=== PATIENT | female | born 1935 | race Caucasian/White ===

== ENCOUNTER 2017-04-24 16:20 | Inpatient (IN) | payer OTHER ==
[2017-04-24 16:27] VITALS: BMI 48.4
--- NOTE | 2017-04-24 16:59 | PDOC ---
History of Present Illness - General Chief Complaint: Pain Stated Complaint: STOMACH PAIN SINCE FRIDAY Time Seen by Provider: 04/24/17 16:42 - History of Present Illness Initial Comments: 04/24/17 17:19 " Patient is a 82 year old female with a significant past medical history of multiple abdominal sx (appy, dominique, hysterectomy, LOAs), asthma, atrial fibrillation, COPD, CHF, CAD, dementia, diabetes, HTN, hypercholesterolemia, and hypothyroidism, who presents to the ED with abdominal pain and diarrhea since 04/19/17. Patient states that she was initially constipated on 04/18, which she believed was due to her oxycodone. She denies taking anything to alleviate constipation but states that on Friday she passed large volume stool followed by several watery stools. She complains of persistent watery diarrhea until today that is nonbloody. Patient states that her last normal bowel movement was 1 week ago. Patient reports nausea but denies any vomiting. Pt also complains of periumbilical abdominal pain. Pt states that the pain is similar to her previous episodes of SBO. She states that she followed up with Dr. Storey, her PMD, today that sent her to the ED. She denies fever or chills. She denies any SOB. 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 " Past History - Past Medical History Allergies/Adverse Reactions: Allergies Allergy/AdvReac Type Severity Reaction Status Date / Time No Known Allergies Allergy Verified 04/24/17 16:28 Home Medications: Ambulatory Orders Albuterol Sulfate Inhaler - [Ventolin HFA Inhaler -] 2 inh IH Q6H PRN #0 inh 04/27 Allopurinol [Zyloprim -] 100 mg PO DAILY #0 tablet 06/22/13 Diltiazem Cd [Cardizem Cd -] 180 mg PO DAILY #0 cap.cd.24h 06/22/13 Montelukast Na [Singulair -] 10 mg PO HS #0 tablet 06/22/13 Acetaminophen [Tylenol .Regular Strength -] 650 mg PO Q6H PRN #240 tablet Tiotropium [place] [Spiriva] 1 inh PO DAILY #1 inhaler 06/23/13 Furosemide [Lasix -] 40 mg PO BID 03/02/14 Levothyroxine [Synthroid -] 50 mcg PO DAILY 03/02/14 Glimepiride [Amaryl] 2 mg PO BID 08/07/14 Digoxin [Lanoxin -] 1 tab PO DAILY #90 tablet 09/08/15 Lactobacillus Acidophilus [Bacid -] 1 tab PO DAILY #30 tab 09/08/15 Oxycodone HCl [Roxicodone -] 5 mg PO Q12H PRN #0 tablet 09/08/15 Potassium Chloride [K-Dur] 20 meq PO QID #0 09/08/15 Sulfamethoxazole/Trimethoprim [Bactrim DS -] 1 each PO BID #20 tablet 09/08/15 Warfarin Na [Coumadin -] 4 mg PO DAILY@1800 tablet 02/20/16 Anemia: No Asthma: Yes Cancer: No Cardiac Disorders: Yes (ATRIAL FIBRILLATION) CVA: No COPD: Yes CHF: Yes Dementia: Yes Diabetes: Yes GI Disorders: Yes (HIATAL HERNIA, OBSTRUCTION) Disorders: Yes (uti) HTN: Yes Hypercholesterolemia: Yes Liver Disease: No Suicide Attempt (Hx): No Seizures: No Thyroid Disease: Yes (HYPO) - Surgical History Abdominal Surgery: Yes (HERNIA REPAIR X 3) Appendectomy: Yes (RUPTURED) Cardiac Surgery: Yes (cardioversion x 2) Cholecystectomy: Yes Lung Surgery: No Neurologic Surgery: No Orthopedic Surgery: No - Immunization History Immunization Up to Date: Yes - Psycho/Social/Smoking Cessation Hx Anxiety: No Suicidal Ideation: No Smoking Status: No Smoking History: Former smoker Have you smoked in the past 12 months: No Number of Cigarettes Smoked Daily: 0 If you are a former smoker, when did you quit?: 2007 Cigars Per Day: 20 Information on smoking cessation initiated: No Hx Alcohol Use: No Drug/Substance Use Hx: No Substance Use Type: None Hx Substance Use Treatment: No Review of Systems - Review of Systems Comments:: 04/24/17 17:23 " GENERAL/CONSTITUTIONAL: No fever or chills. No weakness. HEAD, EYES, EARS, NOSE AND THROAT: No change in vision. No ear pain or discharge. No sore throat. GASTROINTESTINAL: (+)nausea, abdominal pain, diarrhea. No vomiting, or constipation. GENITOURINARY: No dysuria, frequency, or change in urination. CARDIOVASCULAR: No chest pain or shortness of breath. RESPIRATORY: No cough, wheezing, or hemoptysis. MUSCULOSKELETAL: No joint or muscle swelling or pain. No neck or back pain. SKIN: No rash NEUROLOGIC: No headache, vertigo, loss of consciousness, or change in strength/ sensation. ENDOCRINE: No increased thirst. No abnormal weight change. HEMATOLOGIC/LYMPHATIC: No anemia, easy bleeding, or history of blood clots. ALLERGIC/IMMUNOLOGIC: No hives or skin allergy. " *Physical Exam - Vital Signs Last Vital Signs Temp Pulse Resp BP Pulse Ox 98.2 F 87 18 137/54 93 L 04/24/17 16:24 04/24/17 16:24 04/24/17 16:24 04/24/17 16:24 04/24/17 16:24 - Physical Exam Comments: 04/24/17 17:23 "GENERAL: Awake, alert, and fully oriented, in no acute distress HEAD: No signs of trauma EYES: PERRLA, EOMI, sclera anicteric, conjunctiva clear ENT: Auricles normal inspection, hearing grossly normal, nares patent, oropharynx clear without exudates. Moist mucosa NECK: Normal ROM, supple, no lymphadenopathy, JVD, or masses LUNGS: Breath sounds equal, clear to auscultation bilaterally. No wheezes, and no crackles HEART: Regular rate and rhythm, normal S1 and S2, no murmurs, rubs or gallops ABDOMEN: Soft, obese, mild periumbilical tenderness, normoactive bowel sounds. No guarding, no rebound. No masses. Skin under pannus erythematous and edematous, no fluctuance or drainage noted. EXTREMITIES: Normal range of motion, no edema. No clubbing or cyanosis. No cords, erythema, or tenderness NEUROLOGICAL: Cranial nerves II through XII grossly intact. Normal speech, normal gait SKIN: Warm, Dry, normal turgor, no rashes or lesions noted. " 04/24/17 22:03 ED Treatment Course - LABORATORY CBC & Chemistry Diagram: 04/24/17 18:06 04/24/17 18:06 Medical Decision Making - Medical Decision Making 04/24/17 17:25 82 F with abdominal pain, diarrhea. Pt with significant surgical history, including appy, dominique, hysterectomy, and SBOs s/p LOAs. Will obtain CTAP to r/o acute intraabdominal process. Pt with no chest pain or shortness of breath currently, but will obtain EKG and troponin to r/o anginal equivalent. Pt otherwise well appearing, non-septic. No fevers or chills with normal vitals here. Low suspicion for systemic infectious process. Pt also with redness and swelling around skin of pannus, concerning for cellulitis. - Labs, trop - EKG - CXR - CTAP 04/24/17 22:02 CTAP negative for acute intraabdominal pathology - no evidence of SBO or colitis. Stool cultures ordered. Will start abx for cellulitis. *DC/Admit/Observation/Transfer Diagnosis at time of Disposition: Diarrhea, Cellulitis - Discharge Dispostion Condition at time of disposition: Stable Admit: Yes - Attestations Physician Attestion: 04/24/17 22:04 I, Dr. Leighton De Los Santos MD, attest that this document has been prepared under my direction and personally reviewed by me in its entirety. I further attest, that it accurately reflects all work, treatment, procedures and medical decision -making performed by me.
[2017-04-24 18:27] LABS: BASOPHIL 0.8 % (0-2.0); EOSINOPHIL 3.5 % (0-4.5); MCH 26.6 pg (25.7-33.7); MCHC 32.2 g/dl (32.0-36.0); MEAN CELL VOLUME 82.6 fl (80-96); NEUTROPHILS 68.5 % (42.8-82.8); PLATELET COUNT 293 K/MM3 (134-434); RDW 18.9 % (11.6-15.6); WHITE BLOOD COUNT 9.4 K/mm3 (4.0-10.0)
[2017-04-24 18:32] LABS: VENOUS BLOOD GAS HCO3 33.9 meq/L (19-25)
[2017-04-24 18:33] LABS: VENOUS PH 7.43 (7.32-7.42)
[2017-04-24 18:43] LABS: ACTIVATED PTT 35.1 SECONDS (26.9-34.4)
[2017-04-24 18:53] LABS: ALBUMIN 3.2 g/dl (3.4-5.0); ANION GAP 8 (8-16); BILIRUBIN,TOTAL 0.7 mg/dL (0.2-1.0); CALCIUM 8.8 mg/dL (8.5-10.1); CO2 33 mmol/L (21-32); CREATININE 0.8 mg/dL (0.55-1.02); GLUCOSE,RANDOM 83 mg/dL (74-106); SGOT/AST 26 U/L (15-37); SGPT/ALT 14 U/L (12-78)
[2017-04-24 18:54] LABS: ALK PHOS 102 U/L (45-117); MAGNESIUM 1.9 mg/dL (1.8-2.4); TOT PROT 6.9 g/dl (6.4-8.2)
[2017-04-24 18:56] LABS: TROPONIN I 0.02 ng/ml (0.00-0.05)
[2017-04-24 19:11] LABS: INR 2.24 (0.82-1.09)
[2017-04-24] MEDS ORDERED: KCL 10 MEQ IVPB 100 ML IVPB SCH ×2 (19:30→23:00)
[2017-04-24] MEDS ORDERED: KCL 10 MEQ IVPB 100 ML IVPB ONE (20:47)
[2017-04-24] MEDS ORDERED: SODIUM CHLORIDE 1,000 ML IV STA (21:58)
[2017-04-24] MEDS ORDERED: VANCOMYCIN 1,500 MG in DEXTROSE 5%-WATER - 500 ML IVPB ONE (22:00)
[2017-04-24] MEDS ORDERED: POTASSIUM CHLORIDE TABS 20 MEQ TABLET.ER (FP) PO ONE ×2 (22:57→23:26)
--- NOTE | 2017-04-24 23:00 | HP ---
Admitting History and Physical - Admission History of Present Illness: 82yo F with significant history of permanent A fib, COPD, CHF, CAD, dementia, diabetes, HTN, hypothyroidism, and multiple abdominal surgeries (lap appy, cholecystectomy, hysterectomy, adhesion lysis) who is being seen in the ED for abdominal pain and diarrhea. She states her abdominal pain started around located centrally without radiation. She felt like it was similar to when she had an SBO in the past, however she did not have nausea or vomiting. Pt states that on 04/21/17 she started to develop diffuse watery diarrhea without any site of blood. She states that it has been continuous since then however she is trying to keep hydrated. Denies fever/chills, nausea, vomiting, dysuria, polyuria, PO intolerance. Denies any unusual foods eaten, recent travel, sick contacts. ER course notable for: 1) CBC,CMP, LA, UA - revealing hypokalemia at 2.9 and a lactic acidosis at 2.2 2) EKG - Atrial fibrillation and inversion of T waves in precordial leads UNCHANGED from previous 3) CT abdomen w/o contrast -- Superficial skin changes on pannus that may represent cellulitis; no intraabdominal pathology; correlate clinically 4) CXR - cardiomegaly no acute pathology 5) Stool Cx's 6) Vancomycin initiated 7) 10mEq KCl PCP: Dr. Storey Seen by Dr. 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 History Source: Patient Limitations to Obtaining History: No Limitations - Past Medical History Cardiovascular: Yes: AFIB, CHF, Deep Vein Thrombosis, HTN, Hyperlipdemia Pulmonary: Yes: Asthma, COPD Gastrointestinal: Yes: Hiatal Hernia, Other Musculoskeletal: Yes: Osteoarthritis Endocrine: Yes: Diabetes Mellitus, Hypothyroidism, Other Dermatology: Yes: Cellulitis, Eczema - Past Surgical History Past Surgical History: Yes: Appendectomy, Cholecystectomy, Hernia Repair (times three), Oopherectomy, Tonsillectomy - Smoking History Smoking history: Former smoker Have you smoked in the past 12 months: No Aproximately how many cigarettes per day: 0 If you are a former smoker, when did you quit?: 2007 - Alcohol/Substance Use Hx Alcohol Use: No - Social History ADL: Independent History of Recent Travel: No Home Medications - Allergies Allergies/Adverse Reactions: Allergies Allergy/AdvReac Type Severity Reaction Status Date / Time No Known Allergies Allergy Verified 04/24/17 16:28 - Home Medications Home Medications: Ambulatory Orders Albuterol Sulfate Inhaler - [Ventolin HFA Inhaler -] 2 inh IH Q6H PRN #0 inh 04/27 Allopurinol [Zyloprim -] 100 mg PO DAILY #0 tablet 06/22/13 Diltiazem Cd [Cardizem Cd -] 180 mg PO DAILY #0 cap.cd.24h 06/22/13 Montelukast Na [Singulair -] 10 mg PO HS #0 tablet 06/22/13 Acetaminophen [Tylenol .Regular Strength -] 650 mg PO Q6H PRN #240 tablet Tiotropium [place] [Spiriva] 1 inh PO DAILY #1 inhaler 06/23/13 Furosemide [Lasix -] 40 mg PO BID 03/02/14 Levothyroxine [Synthroid -] 50 mcg PO DAILY 03/02/14 Glimepiride [Amaryl] 2 mg PO BID 08/07/14 Digoxin [Lanoxin -] 1 tab PO DAILY #90 tablet 09/08/15 Lactobacillus Acidophilus [Bacid -] 1 tab PO DAILY #30 tab 09/08/15 Oxycodone HCl [Roxicodone -] 5 mg PO Q12H PRN #0 tablet 09/08/15 Potassium Chloride [K-Dur] 20 meq PO QID #0 09/08/15 Sulfamethoxazole/Trimethoprim [Bactrim DS -] 1 each PO BID #20 tablet 09/08/15 Warfarin Na [Coumadin -] 4 mg PO DAILY@1800 tablet 02/20/16 Family Disease History - Family Disease History Family Disease History: Heart Disease: Mother ([place]), Other: Father (ETOH cirrhosis), Sister (alive and well) Physical Examination Vital Signs: Vital Signs Temperature 98.2 F 04/24/17 16:24 Pulse Rate 87 04/24/17 16:24 Respiratory Rate 18 04/24/17 16:24 Blood Pressure 137/54 04/24/17 16:24 O2 Sat by Pulse Oximetry (%) 93 L 04/24/17 16:24 Constitutional: Yes: No Distress, Calm Eyes: Yes: Conjunctiva Clear, EOM Intact, PERRL Cardiovascular: Yes: Pulse Irregular (Regular rate). No: Murmur Respiratory: Yes: Regular, CTA Bilaterally. No: SOB, Wheezes Gastrointestinal: Yes: Soft, Abdomen, Obese, Tenderness (centrally located), Other (Erythema, warmth, and skin changes including cracks on pannus) Edema: Yes (Non-pitting; b/l LE) Peripheral Pulses WNL: Yes Integumentary: Yes: Other (See abdomen; B/l Lower extremity venous stasis changes, cracks, and thickening of skin above ankles) Neurological: Yes: Alert, Oriented Psychiatric: Yes: Alert, Oriented Labs: CBC, BMP 04/24/17 18:06 04/24/17 18:06 Imaging - Results Chest X-ray: Report Reviewed, Image Reviewed Cat Scan: Report Reviewed Assessment/Plan 82yo F with multiple comorbid conditions not limited to permanent A. Fib on coumadin, diabetes, multiple abdominal surgeries (lap appy, lap dominique, hysterectomy, LOAs) with diarrhea, abdominal pain. CT scan + for cellulitis of pannus; no intra-abdominal pathology. SIR 0/4, LA 2.2 1) Cellulitis --Most likely cellulitis of pannus given skin changes, lactic acidosis, and CT results --Received Vancomycin in ED x1 dose; will switch to Unasyn IV and follow per ID --ID consultation --Nystatin powder TID --Most likely transition to PO tomorrow in preparation for discharge --Trend LA; will f/u 2) Abdominal pain --Most likely related to constipation from use opiates resulting in alternating constipation and diarrhea --Will continue home opiates and add bowel regiment --Colace BID PRN --Diarrhea seems to have resolved at this point --Cellulitis plan as above 3) Hypokalemia --K 2.9; most likely due to chronic Digoxin usage from cardiac history --10mEq IV given in the ED --repeat BMP and Mg level; will f/u --Will continue to replete potassium --Dig level ordered for assessment --F/U with cardiology for assessment of continued digoxin use FEN: Fluids: Gentle hydration Electrolyte abnormalities: Hypokalemia; plan as above Nutrition: Diabetic diet as tolerated PPX: DVT: Pt already anticoagulated on Coumadin; INR 2.25; SCDs b/l legs GI: Not indicated at this time Dispo: Pt placed into observation status; anticipate transition to PO medications tomorrow Visit type - Emergency Visit Emergency Visit: Yes ED Registration Date: 04/24/17 Care time: The patient presented to the Emergency Department on the above date and was hospitalized for further evaluation of their emergent condition. - New Patient This patient is new to me today: Yes Date on this admission: 04/25/17 - Critical Care Critical Care patient: No
[2017-04-24] MEDS ORDERED: ALBUTEROL SO4 6.7 GM HFA INHALER IH PRN (23:06)
[2017-04-24] MEDS ORDERED: DOCUSATE SODIUM 100 MG CAPSULE (FP) PO PRN (23:34)
--- NOTE | 2017-04-24 23:42 | PN ---
Teaching Attending Note Name of Resident: Bobby You ATTENDING PHYSICIAN STATEMENT I saw and evaluated the patient. I reviewed the resident's note and discussed the case with the resident. I agree with the resident's findings and plan as documented. SUBJECTIVE: 82 yo morbidly obese female presenting to ED with complaint of abdominal pain and watery, non-bloody diarrhea that developed after approximately 1 week of constipation. Denies fever, chills, chest pain, abdominal pain, palpitations, urinary complaints. OBJECTIVE: - Vitals Temp: 98.2F BP: 137/54 HR: 87 RR: 18 spO2: 93% on 2L NC - Physical Examination General: Morbidly Obese female in NAD HEENT: No oropharyngeal lesions noted Neck: Obese CV: Irregularly irregular, S1 and S2 Pulmonary: Distant per habitus but CTA anteriorly Abdomen: Obese, Mild juan-umbilical TTP, BS + Integument: Erythema/edema along anterior pannus Extremities: - Imaging CXR reviewed ( Cardiomegaly; No infiltrate/edema noted ) CT A/P reviewed ( No evidence of SBO; ? cellulitis anterior pannus; urinary bladder wall thickening - EKG Rate-controlled A-Fib - Labs BUN/Cr: 24/0.8 K+: 2.9 ; Mg++: 1.9 ; Ca++: 8.8 H/H: 13.2/40.9 Lactate: 2.2 LFT's and Lipase WNL Troponin: 0.02 INR: 2.24 A1c 02/2016: 8.0% ASSESSMENT AND PLAN - Neurologic 1.) Chronic Pain : Continue outpatient pain medications; add daily bowel regimen to aid constipation 2.) ? Dementia per chart review, unclear at this time - Cardiovascular 1.) Chronic Atrial Fibrillation : Continue Cardizem; Hold Dig pending level : Resume chronic AC Coumdin 2.) Essential HTN : Start Lisinopril - Pulmonary 1.) COPD ( Unable to confirm via chart review as no PFT's noted ) : Albuterol, Spiriva, Symbicort to be resumed : Supplemental O2 to maintain spO2 91-92% as patient appears to chronically retain CO2 2.) Presumed Obesity Hypoventilation at high-risk for KATERINA : Management as above; Pulmonology referral on discharge for further workup if deemed appropriate by primary attending - Gastrointestinal 1.) Abdominal Pain and Diarrhea - c/w Constipation per history : Bowel regimen as mentioned above as tolerated : F/U Pending ED w/u - Renal 1.) Pre-renal Azotemia : DC Lasix and continue gentle hydration overnight : Hold Allopurinol for now 2.) Hypokalemia : Replete w/ at least 120 mEq ; Monitor K and Mg levels - Endocrine 1.) DM-II : SSI regimen overnight; Transition to PO regimen when able to tolerate PO and discharge pending : F/U A1c 2.) Hypothyroidism : Resume outpatient synthroid : F/U TSH if not performed in past 3 months - Hematology/Oncology 1.) H/O DVT : Heparin SC - Infectious Disease 1.) Intertrigo/Cellulitis Anterior Pannus : Continue IV abx with Unasyn and transition to PO on date of discharge : Nystatin powder TID DISPOSITION Admit to telemetry for IV fluid hydration and correction of hypokalemia. Will start IV abx while inpatient with plan to transition to PO on discharge. Anticipate discharge in 24-48h. Patient will need f/u with Pulmonology/Sleep Clinic to evaluate sleep disordered breathing as she is certainly at increase risk. Update Vaccinations
[2017-04-25 00:45] LABS: ANION GAP 7 (8-16); CALCIUM 8.2 mg/dL (8.5-10.1); CO2 36 mmol/L (21-32); CREATININE 0.7 mg/dL (0.55-1.02); GLUCOSE,RANDOM 140 mg/dL (74-106)
[2017-04-25] MEDS ORDERED: POTASSIUM CHLORIDE TABS 20 MEQ TABLET.ER (FP) PO ONE (01:40)
[2017-04-25] MEDS ORDERED: oxyCODONE HCL 5 MG TABLET ONE (03:55)
[2017-04-25] MEDS: oxyCODONE HCL 5 MG TABLET PO PRN (04:05)
[2017-04-25] MEDS ORDERED: FUROSEMIDE 40 MG TABLET (FP) PO SCH (06:00)
[2017-04-25] MEDS: NYSTATIN POWDER 100,000 UNITS/GM - 15 GM TOPICAL POWDER TP SCH ×3 (06:13→22:45)
[2017-04-25] MEDS: LEVOTHYROXINE NA 50 MCG TABLET (FP) PO SCH (06:13)
[2017-04-25] MEDS: INSULIN SLIDING SCALE (NOVOLOG) 1 VIAL SQ SCH ×4 (06:13→22:45)
[2017-04-25] MEDS ORDERED: AMPICILLIN NA/SULBACTAM NA 1.5 GM in SODIUM CHLORIDE 100 ML IVPB SCH (08:00)
[2017-04-25] MEDS ORDERED: PT OWN MED DRAWER 7, Y5N ONE ×3 (08:43→22:34)
[2017-04-25 09:07] LABS: URINE APPEARANCE TURBID; URINE BILIRUBIN NEGATIVE (NEGATIVE); URINE BLOOD 1+ (NEGATIVE); URINE COLOR AMBER; URINE GLUCOSE (UA) NEGATIVE (NEGATIVE); URINE KETONE NEGATIVE (NEGATIVE); URINE NITRITE NEGATIVE (NEGATIVE)
--- NOTE | 2017-04-25 09:27 | EKG ---
Test Reason : Blood Pressure : / mmHG Vent. Rate : 071 BPM Atrial Rate : 061 BPM P-R Int : 000 ms QRS Dur : 144 ms QT Int : 420 ms P-R-T Axes : 000 083 000 degrees QTc Int : 456 ms ATRIAL FIBRILLATION RIGHT BUNDLE BRANCH BLOCK T WAVE ABNORMALITY, CONSIDER LATERAL ISCHEMIA ABNORMAL ECG WHEN COMPARED WITH ECG OF 14-FEB-2016 14:48, INVERTED T WAVES HAVE REPLACED NONSPECIFIC T WAVE ABNORMALITY IN ANTERIOR LEADS Confirmed by ISAAC WALSH MD ([id number]) on 04/25/2017 9:26:40 AM Referred By: Confirmed By:ISAAC WALSH MD
[2017-04-25 09:32] LABS: URINE LEUK ESTERASE 3+ (NEGATIVE); URINE PROTEIN 1+ (NEGATIVE)
--- NOTE | 2017-04-25 09:34 | CON.CARD ---
Consult Consult Specialty:: Cardiology Referred by:: Dr. Storey Reason for Consultation:: Cardiac evaluation - History of Present Illness Chief Complaint: Diarrhea History of Present Illness: Patient is an 82 year old female well known to me with underlying history of hypertension, COPD, bronchial asthma, acute on chronic LV failure, type 2 diabetes mellitus, coronary artery disease, DVT, chronic venous stasis and persistent atrial fibrillation who presents with abdominal pain and diarrhea since 04/19/17. She states that she was initially constipated when she took Oxycodon. She complains of persistent watery diarrhea and complains of nausea. She denies vomiting. She was recommended for admission by her PMD. Currently she denies chest pain or palpitations. She is breathing comfortable this am. Her abdomen is protuberant. She state that her symptom is similar to her episode of SBO. She denies fever or chills. She denies headache or lightheadedness. Cardiology consultation was called for further evaluation. - History Source History Provided By: Patient, Medical Record Limitations to Obtaining History: No Limitations - Past Medical History Cardio/Vascular: Yes: AFIB, CHF, Deep Vein Thrombosis, HTN, Hyperlipdemia Pulmonary: Yes: Asthma, COPD Gastrointestinal: Yes: Hiatal Hernia, Other Musculoskeletal: Yes: Osteoarthritis Endocrine: Yes: Diabetes Mellitus, Hypothyroidism Dermatology: Yes: Cellulitis, Eczema - Past Surgical History Past Surgical History: Yes: Appendectomy, Cholecystectomy, Hernia Repair (times three), Oopherectomy, Tonsillectomy - Alcohol/Substance Use Hx Alcohol Use: No - Smoking History Smoking history: Former smoker Have you smoked in the past 12 months: No Aproximately how many cigarettes per day: 0 If you are a former smoker, when did you quit?: 2007 - Social History Usual Living Arrangement: Alone ADL: Independent History of Recent Travel: No Home Medications - Allergies Allergies/Adverse Reactions: Allergies Allergy/AdvReac Type Severity Reaction Status Date / Time No Known Allergies Allergy Verified 04/24/17 16:28 - Home Medications Home Medications: Ambulatory Orders Albuterol Sulfate Inhaler - [Ventolin HFA Inhaler -] 2 inh IH Q6H PRN #0 inh 04/27 Allopurinol [Zyloprim -] 100 mg PO DAILY #0 tablet 06/22/13 Diltiazem Cd [Cardizem Cd -] 180 mg PO DAILY #0 cap.cd.24h 06/22/13 Montelukast Na [Singulair -] 10 mg PO HS #0 tablet 06/22/13 Acetaminophen [Tylenol .Regular Strength -] 650 mg PO Q6H PRN #240 tablet Tiotropium [place] [Spiriva] 1 inh PO DAILY #1 inhaler 06/23/13 Furosemide [Lasix -] 40 mg PO BID 03/02/14 Levothyroxine [Synthroid -] 50 mcg PO DAILY 03/02/14 Glimepiride [Amaryl] 2 mg PO BID 08/07/14 Digoxin [Lanoxin -] 1 tab PO DAILY #90 tablet 09/08/15 Lactobacillus Acidophilus [Bacid -] 1 tab PO DAILY #30 tab 09/08/15 Oxycodone HCl [Roxicodone -] 5 mg PO Q12H PRN #0 tablet 09/08/15 Potassium Chloride [K-Dur] 20 meq PO QID #0 09/08/15 Sulfamethoxazole/Trimethoprim [Bactrim DS -] 1 each PO BID #20 tablet 09/08/15 Warfarin Na [Coumadin -] 4 mg PO DAILY@1800 tablet 02/20/16 Family Disease History - Family Disease History Family Disease History: Heart Disease: Mother (PA), Other: Father (ETOH cirrhosis), Sister (alive and well) Review of Systems - Review of Systems Constitutional: denies: Chills, Fever Cardiovascular: reports: Shortness of Breath. denies: Chest Pain, Palpitations Respiratory: denies: Cough, Hemoptysis, Orthopnea, PND Gastrointestinal: reports: Abdominal Pain, Constipation, Diarrhea, Nausea. denies: Melena, Rectal Bleeding, Vomiting Musculoskeletal: reports: Joint Pain Neurological: denies: Dizziness, Headache, Seizure, Syncope, Weakness Vital Signs: Vital Signs Temperature 98.6 F 04/25/17 08:08 Pulse Rate 84 04/25/17 08:08 Respiratory Rate 20 04/25/17 08:08 Blood Pressure 120/66 04/25/17 08:08 O2 Sat by Pulse Oximetry (%) 98 04/25/17 04:45 Neck: Yes: Supple Respiratory: Yes: Diminished Gastrointestinal: Yes: Normal Bowel Sounds, Soft, Abdomen, Obese. No: Tenderness Cardiovascular: Yes: Pulse Irregular JVD: No Carotid Bruit: No PMI: Non-Displaced Heart Sounds: Yes: S1, S2 Edema: Yes Edema: LLE: 1+, RLE: 1+ Integumentary: Yes: Venous Stasis Changes - Other Data Labs, Other Data: INR, PTT INR 2.24 (0.82-1.09) H 04/24/17 18:06 Laboratory Results - last 24 hr 04/24/17 04/24/17 04/24/17 18:06 18:06 18:06 WBC 9.4 RBC 4.95 Hgb 13.2 Hct 40.9 MCV 82.6 MCH 26.6 MCHC 32.2 RDW 18.9 H D Plt Count 293 MPV 8.0 Neutrophils % 68.5 Lymphocytes % 17.6 Monocytes % 9.6 Eosinophils % 3.5 D Basophils % 0.8 D INR 2.24 H PTT (Actin FS) 35.1 H VBG pH POC VBG pCO2 POC VBG pO2 Mixed VBG HCO3 Sodium Potassium Chloride Carbon Dioxide Anion Gap BUN Creatinine Creat Clearance w eGFR POC Glucometer Random Glucose Lactic Acid Calcium Magnesium 1.9 Total Bilirubin AST ALT Alkaline Phosphatase Creatine Kinase 146 Troponin I 0.02 Total Protein Albumin Lipase Free T4 Urine Color Urine Appearance Urine pH Urine Protein Urine Glucose (UA) Urine Ketones Urine Blood Urine Nitrite Urine Bilirubin Urine Urobilinogen Ur Leukocyte Esterase Blood Type Antibody Screen 04/24/17 04/24/17 04/24/17 18:06 18:06 18:06 WBC RBC Hgb Hct MCV MCH MCHC RDW Plt Count MPV Neutrophils % Lymphocytes % Monocytes % Eosinophils % Basophils % INR PTT (Actin FS) VBG pH POC VBG pCO2 POC VBG pO2 Mixed VBG HCO3 Sodium 142 Potassium 2.9 L* Chloride 101 Carbon Dioxide 33 H Anion Gap 8 BUN 24 H D Creatinine 0.8 Creat Clearance w eGFR > 60 POC Glucometer Random Glucose 83 Lactic Acid 2.2 H* Calcium 8.8 Magnesium Total Bilirubin 0.7 AST 26 D ALT 14 D Alkaline Phosphatase 102 D Creatine Kinase Troponin I Total Protein 6.9 Albumin 3.2 L Lipase 352 Free T4 Urine Color Urine Appearance Urine pH Urine Protein Urine Glucose (UA) Urine Ketones Urine Blood Urine Nitrite Urine Bilirubin Urine Urobilinogen Ur Leukocyte Esterase Blood Type B POSITIVE Antibody Screen Negative 04/24/17 04/24/17 04/24/17 18:28 23:35 23:55 WBC RBC Hgb Hct MCV MCH MCHC RDW Plt Count MPV Neutrophils % Lymphocytes % Monocytes % Eosinophils % Basophils % INR PTT (Actin FS) VBG pH 7.43 H POC VBG pCO2 52.0 POC VBG pO2 46.8 Mixed VBG HCO3 33.9 H Sodium Potassium Chloride Carbon Dioxide Anion Gap BUN Creatinine Creat Clearance w eGFR POC Glucometer [phone] Random Glucose Lactic Acid 1.6 Calcium Magnesium Total Bilirubin AST ALT Alkaline Phosphatase Creatine Kinase Troponin I Total Protein Albumin Lipase Free T4 Urine Color Urine Appearance Urine pH Urine Protein Urine Glucose (UA) Urine Ketones Urine Blood Urine Nitrite Urine Bilirubin Urine Urobilinogen Ur Leukocyte Esterase Blood Type Antibody Screen 04/24/17 04/25/17 04/25/17 23:55 05:10 08:00 WBC RBC Hgb Hct MCV MCH MCHC RDW Plt Count MPV Neutrophils % Lymphocytes % Monocytes % Eosinophils % Basophils % INR PTT (Actin FS) VBG pH POC VBG pCO2 POC VBG pO2 Mixed VBG HCO3 Sodium 143 Potassium 3.1 L Chloride 100 Carbon Dioxide 36 H Anion Gap 7 L BUN 22 H Creatinine 0.7 Creat Clearance w eGFR POC Glucometer 142 Random Glucose 140 H D Lactic Acid Calcium 8.2 L Magnesium Total Bilirubin AST ALT Alkaline Phosphatase Creatine Kinase Troponin I Total Protein Albumin Lipase Free T4 Urine Color Teri Urine Appearance Turbid Urine pH 6.0 Urine Protein 1+ H Urine Glucose (UA) Negative Urine Ketones Negative Urine Blood 1+ H Urine Nitrite Negative Urine Bilirubin Negative Urine Urobilinogen 2.0 H Ur Leukocyte Esterase 3+ H Blood Type Antibody Screen Atrial fibrillation Imaging - Results Chest X-ray: Report Reviewed (Cardiomegaly) Cat Scan: Report Reviewed (Abdominal CT noted) EKG: Report Reviewed Problem List - Problems (1) Cellulitis Code(s): L03.90 - CELLULITIS, UNSPECIFIED (2) Diarrhea Code(s): R19.7 - DIARRHEA, UNSPECIFIED (3) Atrial fibrillation Code(s): I48.91 - UNSPECIFIED ATRIAL FIBRILLATION Qualifiers: Atrial fibrillation type: chronic Qualified Code(s): I48.2 - Chronic atrial fibrillation (4) CHF (congestive heart failure) Code(s): I50.9 - HEART FAILURE, UNSPECIFIED Qualifiers: Congestive heart failure type: diastolic Congestive heart failure chronicity: acute on chronic Qualified Code(s): I50.33 - Acute on chronic diastolic (congestive) heart failure (5) COPD (chronic obstructive pulmonary disease) Code(s): J44.9 - CHRONIC OBSTRUCTIVE PULMONARY DISEASE, UNSPECIFIED Qualifiers : COPD type: COPD with acute exacerbation Qualified Code(s): J44.1 - Chronic obstructive pulmonary disease with (acute) exacerbation (6) Diabetes Code(s): E11.9 - TYPE 2 DIABETES MELLITUS WITHOUT COMPLICATIONS Qualifiers: Diabetes mellitus type: type 2 Diabetes mellitus complication status: with hyperglycemia Diabetes mellitus nursing home insulin use: without nursing home use Qualified Code(s): E11.65 - Type 2 diabetes mellitus with hyperglycemia (7) Diastolic dysfunction without heart failure Code(s): I51.9 - HEART DISEASE, UNSPECIFIED (8) HTN (hypertension) Code(s): I10 - ESSENTIAL (PRIMARY) HYPERTENSION Qualifiers: Hypertension type: essential hypertension Qualified Code(s): I10 - Essential (primary) hypertension (9) Morbid obesity with BMI of 45.0-49.9, adult Code(s): E66.01 - MORBID (SEVERE) OBESITY DUE TO EXCESS CALORIES Z68.42 - BODY MASS INDEX (BMI) 45.0-49.9, ADULT Assessment/Plan 1. Abdominal pain and diarrhea 2. Cellulitis as reported on CT scan 3. Permanent atrial fibrillation 4. HTN/hypertensive cardiovascular disease 5. Acute on chronic LV diastolic failure 6. COPD 7. Type 2 diabetes mellitus 8. Morbid obesity 9. Hypothyroidism 10. Chronic venous stasis changes PLAN: 1. Continue cardiac medications including Cardizem, Digoxin with caution and Lisinopril as tolerated 2. Continue Coumadin as per INR 3. Empiric antibiotic 4. Continue present management. Continue adequate hydration and monitor electrolytes and renal function Further plans are to follow Matt Ferraro MD
[2017-04-25] MEDS: LACTOBACILLUS ACIDOPHILUS 1 EACH TAB (FP) PO SCH (09:48)
[2017-04-25] MEDS: LISINOPRIL 5 MG TABLET (FP) PO SCH (09:49)
[2017-04-25] MEDS: POTASSIUM CHLORIDE TABS 20 MEQ TABLET.ER (FP) PO SCH ×4 (09:49→22:44)
[2017-04-25] MEDS: DIGOXIN 0.125 MG TABLET (FP) PO SCH (09:49)
[2017-04-25] MEDS ORDERED: ALLOPURINOL 100 MG TABLET (FP) PO SCH (10:00)
--- NOTE | 2017-04-25 10:02 | PN ---
Progress Note (short form) - Note Progress Note: Patient went to ER from my office yesterday when she appeared lethargic, weak and complained of persistent diarrhea for several days and not sleeping. Came to ER and was found to be severely hypokalemic and ? cellulitis of pannus and ? UTI based on Abd, CAT scan findings. No chills or fevers noted as outpatient. Patient has a complicated hx of A. Fib, Chronic Bronchitis, DM type 2 controlled , large abdominal pannus, small bowel adhesions, hypothyoidism and thyroid nodules, hypertension, Gout, chronic stasis changes of legs and abdominal pannus , DJD especially left knee and recent memory problems. She is normally resistant to followup with MD's and tests because of getting rides for the tests. She is noncompliant with her diet and has avoided multiple requests to see a surgeon Re: the abdominal pannus. Up to date with vaccines. On Exam: Vital Signs Temp 98.6 F 04/25/17 08:08 Pulse 88 04/25/17 09:49 Resp 20 04/25/17 08:08 BP 120/66 04/25/17 08:08 Pulse Ox 98 04/25/17 04:45 Intake & Output 04/24/17 04/24/17 04/25/17 11:59 23:59 11:59 Intake Total 120 Output Total 325 Balance -205 Weight 300 lb 300 lb Intake: Oral 120 Output: Urine 325 Void 325 Other: Voiding Method Bedside Commode Height 5 ft 6 in 5 ft 6 in Body Mass Index (BMI) 48.4 48.4 Weight Measurement Method Stated by Patient Somewhat sleepy this AM Chest: Clear Heart: Irregular Neck: No obvious bruit EXT: Chronic thickened stasis changes both lower extremities with painful ? callus 2nd toe right foot Pannus with chronic changes of myers and possibly some mild erythema surrounding the chronic changes Abnormal Lab Results 04/24/17 04/24/17 04/24/17 18:06 18:06 18:06 RDW 18.9 H D INR 2.24 H PTT (Actin FS) 35.1 H VBG pH Mixed VBG HCO3 Potassium 2.9 L* Carbon Dioxide 33 H Anion Gap BUN 24 H D Random Glucose Lactic Acid Calcium Albumin 3.2 L Urine Protein Urine Blood Urine Urobilinogen Ur Leukocyte Esterase 04/24/17 04/24/17 04/24/17 18:06 18:28 23:55 RDW INR PTT (Actin FS) VBG pH 7.43 H Mixed VBG HCO3 33.9 H Potassium 3.1 L Carbon Dioxide 36 H Anion Gap 7 L BUN 22 H Random Glucose 140 H D Lactic Acid 2.2 H* Calcium 8.2 L Albumin Urine Protein Urine Blood Urine Urobilinogen Ur Leukocyte Esterase 04/25/17 08:00 RDW INR PTT (Actin FS) VBG pH Mixed VBG HCO3 Potassium Carbon Dioxide Anion Gap BUN Random Glucose Lactic Acid Calcium Albumin Urine Protein 1+ H Urine Blood 1+ H Urine Urobilinogen 2.0 H Ur Leukocyte Esterase 3+ H IMP: Acute Hypokalemia A. Fib Possible acute cellulitis pannus [place] UTI Morbid Obesity Hypothroidism on Rx DM Type 2 controlled Hypertension Gout Possible Dementia ? callus or infected 2nd toe right foot Plan: Await ID Cardiology Neuro and Wound Care Doctors F/U Lab K replacement BGM's ordered Cardiology
[2017-04-25 10:07] LABS: URINE RBC 14 /hpf (0-3); URINE WBC 1697 /hpf (3-5)
[2017-04-25 10:08] LABS: ALBUMIN 3.2 g/dl (3.4-5.0); ANION GAP 9 (8-16); CALCIUM 8.5 mg/dL (8.5-10.1); CO2 31 mmol/L (21-32); GLUCOSE,RANDOM 188 mg/dL (74-106); MAGNESIUM 1.9 mg/dL (1.8-2.4)
[2017-04-25 10:22] LABS: ALK PHOS 97 U/L (45-117); BILIRUBIN,TOTAL 0.8 mg/dL (0.2-1.0); CREATININE 0.9 mg/dL (0.55-1.02); DIGOXIN LEVEL 0.6445 ng/ml (0.8-2.0); FREE T4 1.37 ng/dl (0.76-1.46); PHOSPHOROUS 2.7 mg/dL (2.5-4.9); SGOT/AST 25 U/L (15-37); SGPT/ALT 15 U/L (12-78); THYROID STIMULATING HORMONE 2.06 uIU/ml (0.358-3.74); TOT PROT 6.9 g/dl (6.4-8.2)
[2017-04-25 10:27] LABS: INR 2.44 (0.82-1.09); PROTHROMBIN TIME (PATIENT) 27.3 SEC (9.98-11.88)
[2017-04-25 10:29] LABS: ACTIVATED PTT 35.8 SECONDS (26.9-34.4)
[2017-04-25 11:54] LABS: MAGNESIUM 1.8 mg/dL (1.8-2.4)
[2017-04-25] MEDS ORDERED: INSULIN (NOVOLOG) ASPART 100 UNITS/ML 10ML VIAL ONE (11:57)
--- NOTE | 2017-04-25 14:18 | PN ---
Progress Note (short form) - Note Progress Note: ID consult dictated imp/reccd 82 year old female morbidly obese admitted with one week history of watery diarrhea that has resolved no fevers no pets no trauma no bites no travel lives alone uses walker chronic venous stasis history of MRSA 2014 has difficulty attending appointments due to lack of transportation now with gas pains diarrhea has resolved chronic pannus with thickened skin, pink no erythema or warmth callus on second toe right foot ct scan no evidence of colitis diarrhea- resolved morbid obesity doubt cellulitis no symptoms of UTI suggest d/c antibiotics and observe xray foot, f/u with podiatry d/w Dr Storey who agrees with above plan Problem List - Problems (1) Diarrhea Code(s): R19.7 - DIARRHEA, UNSPECIFIED (2) Morbid obesity with BMI of 45.0-49.9, adult Code(s): E66.01 - MORBID (SEVERE) OBESITY DUE TO EXCESS CALORIES Z68.42 - BODY MASS INDEX (BMI) 45.0-49.9, ADULT
--- NOTE | 2017-04-25 15:07 | CONSULT ---
Consult - text type - Consultation Consultation Note: Podiatry Consultation: Pleasant 82 year old DM F presented to ED For admission for abdominal pain/ diarrhea, history of multiple abdominal surgeries. Patient has been in the wound care center in the past for multiple venous stasis lower leg ulcers, which are now being tended to at a wound care center in [place]. Podiatry consultation requested for potential ulcer 2nd digit R foot. Denies trauma to the digit. Patient has had a wound there in the past which healed uneventfully. Currently she is afebrile, VSS. PMHx: COPD, CHF, DM, HTN, Dementia, hypothyroidism, h/o multiple abdominal surgeries Meds: noted in chart ALL: NKMA LUIS: Pedal pulses palpable, TG wnl, CFT brisk to all toes bilaterally. On the right foot, there is a pre-trophic pressure ulcer stage 1 distal tuft of 2nd digit. There is extensive hyperkeratotic tissue. Upon debridement, there is no ulceration underlying hyperkeratotic tissue, there is mild digital edema, no erythema, no drainage, no fluctuance, no ascending cellulitis, no signs of active infection. WBC: 9.4 R foot XR: ? of fracture base of second digit. No cortical erosions distal tuft of 2nd toe suggestive of osteomyelitis. Report pending. Imp: 82 year old DM F with R 2nd digit pre-trophic pressure lesion 1. Debridement of hyperkeratotic pre-trophic lesion. No underlying ulceration noted. 2. Recommend surgical shoe for R foot. Shoe ordered. Not sure if fracture seen on xray is chronic in nature, patient denies trauma. 3. Leg elevation encouraged. Appropriate DM foot care and hygiene discussed with patient. 4. Upon discharge, recommend follow up at wound healing center. Thank you for the courtesy of this consultation. Mg Ayoub DPM
[2017-04-25] MEDS: ACLIDINIUM BROMIDE 400 MCG/INH AERO.POWD IH SCH ×2 (15:25→22:53)
--- NOTE | 2017-04-25 18:09 | CONSULT ---
Consult - text type - Consultation Consultation Note: Neurology History of Present Illness Patient is a 82 year old female with a significant past medical history of multiple abdominal sx (appy, dominique, hysterectomy, LOAs), asthma, atrial fibrillation, COPD, CHF, CAD, dementia, diabetes, HTN, hypercholesterolemia, and hypothyroidism, who presents to the ED with abdominal pain and diarrhea since 04/19/17. Patient states that she was initially constipated on 04/18, which she believed was due to her oxycodone. She was admitted for further work up and neurology consulted to evaluate for possible confusion. She is being seen by ID for evaluation of UTI and cellulitis but do not appear active issues. During my evaluation, was aware of person, place, date, could tell me the name of the President and did not have difficulty with conversation. Thought process and content was intact. She does report some forgetfulness but otherwise reports being cognitive at baseline. Past History - Past Medical History Allergies/Adverse Reactions: Allergies Allergy/AdvReac Type Severity Reaction Status Date / Time No Known Allergies Allergy Verified 04/24/17 16:28 Home Medications: Ambulatory Orders Albuterol Sulfate Inhaler - [Ventolin HFA Inhaler -] 2 inh IH Q6H PRN #0 inh 04/27 Allopurinol [Zyloprim -] 100 mg PO DAILY #0 tablet 06/22/13 Diltiazem Cd [Cardizem Cd -] 180 mg PO DAILY #0 cap.cd.24h 06/22/13 Montelukast Na [Singulair -] 10 mg PO HS #0 tablet 06/22/13 Acetaminophen [Tylenol .Regular Strength -] 650 mg PO Q6H PRN #240 tablet Tiotropium [place] [Spiriva] 1 inh PO DAILY #1 inhaler 06/23/13 Furosemide [Lasix -] 40 mg PO BID 03/02/14 Levothyroxine [Synthroid -] 50 mcg PO DAILY 03/02/14 Glimepiride [Amaryl] 2 mg PO BID 08/07/14 Digoxin [Lanoxin -] 1 tab PO DAILY #90 tablet 09/08/15 Lactobacillus Acidophilus [Bacid -] 1 tab PO DAILY #30 tab 09/08/15 Oxycodone HCl [Roxicodone -] 5 mg PO Q12H PRN #0 tablet 09/08/15 Potassium Chloride [K-Dur] 20 meq PO QID #0 09/08/15 Sulfamethoxazole/Trimethoprim [Bactrim DS -] 1 each PO BID #20 tablet 09/08/15 Warfarin Na [Coumadin -] 4 mg PO DAILY@1800 tablet 02/20/16 Anemia: No Asthma: Yes Cancer: No Cardiac Disorders: Yes (ATRIAL FIBRILLATION) CVA: No COPD: Yes CHF: Yes Dementia: Yes Diabetes: Yes GI Disorders: Yes (HIATAL HERNIA, OBSTRUCTION) Disorders: Yes (uti) HTN: Yes Hypercholesterolemia: Yes Liver Disease: No Suicide Attempt (Hx): No Seizures: No Thyroid Disease: Yes (HYPO) - Surgical History Abdominal Surgery: Yes (HERNIA REPAIR X 3) Appendectomy: Yes (RUPTURED) Cardiac Surgery: Yes (cardioversion x 2) Cholecystectomy: Yes Lung Surgery: No Neurologic Surgery: No Orthopedic Surgery: No - Immunization History Immunization Up to Date: Yes - Psycho/Social/Smoking Cessation Hx Anxiety: No Suicidal Ideation: No Smoking Status: No Smoking History: Former smoker Have you smoked in the past 12 months: No Number of Cigarettes Smoked Daily: 0 If you are a former smoker, when did you quit?: 2007 Cigars Per Day: 20 Information on smoking cessation initiated: No Hx Alcohol Use: No Drug/Substance Use Hx: No Substance Use Type: None Hx Substance Use Treatment: No Review of Systems GENERAL/CONSTITUTIONAL: No fever or chills. No weakness. HEAD, EYES, EARS, NOSE AND THROAT: No change in vision. No ear pain or discharge. No sore throat. GASTROINTESTINAL: (+)nausea, abdominal pain, diarrhea. No vomiting, or constipation. GENITOURINARY: No dysuria, frequency, or change in urination. CARDIOVASCULAR: No chest pain or shortness of breath. RESPIRATORY: No cough, wheezing, or hemoptysis. MUSCULOSKELETAL: No joint or muscle swelling or pain. No neck or back pain. SKIN: No rash NEUROLOGIC: No headache, vertigo, loss of consciousness, or change in strength/ sensation. ENDOCRINE: No increased thirst. No abnormal weight change. HEMATOLOGIC/LYMPHATIC: No anemia, easy bleeding, or history of blood clots. ALLERGIC/IMMUNOLOGIC: No hives or skin allergy. " *Physical Exam - Vital Signs Last Vital Signs Temp Pulse Resp BP Pulse Ox 98.2 F 87 18 137/54 93 L 04/24/17 16:24 08/10/17 16:24 04/24/17 16:24 04/24/17 16:24 04/24/17 16:24 "GENERAL: Awake, alert, and fully oriented, in no acute distress, knows person, place, date, President HEAD: No signs of trauma EYES: PERRLA, EOMI, sclera anicteric, conjunctiva clear ENT: Auricles normal inspection, hearing grossly normal, nares patent, oropharynx clear without exudates. Moist mucosa NECK: Normal ROM, supple, no lymphadenopathy, JVD, or masses LUNGS: Breath sounds equal, clear to auscultation bilaterally. No wheezes, and no crackles HEART: Regular rate and rhythm, normal S1 and S2, no murmurs, rubs or gallops ABDOMEN: Soft, obese, mild periumbilical tenderness, normoactive bowel sounds. No guarding, no rebound. No masses. Skin under pannus erythematous and edematous, no fluctuance or drainage noted. EXTREMITIES: Normal range of motion, no edema. No clubbing or cyanosis. No cords, erythema, or tenderness NEUROLOGICAL: Cranial nerves II through XII grossly intact. Normal speech, strenght grossly intact, sensory equal SKIN: Warm, Dry, normal turgor, no rashes or lesions noted. CBCD WBC 9.4 K/mm3 (4.0-10.0) 04/24/17 18:06 RBC 4.95 M/mm3 (3.60-5.2) 04/24/17 18:06 Hgb 13.2 GM/dL (10.7-15.3) 04/24/17 18:06 Hct 40.9 % (32.4-45.2) 04/24/17 18:06 MCV 82.6 fl (80-96) 04/24/17 18:06 MCHC 32.2 g/dl (32.0-36.0) 04/24/17 18:06 RDW 18.9 % (11.6-15.6) H D 04/24/17 18:06 Plt Count 293 K/MM3 (134-434) 04/24/17 18:06 MPV 8.0 fl (7.5-11.1) 04/24/17 18:06 CMP Sodium 139 mmol/L (136-145) 04/25/17 09:10 Potassium 3.4 mmol/L (3.5-5.1) L 04/25/17 09:10 Chloride 99 mmol/L (98-107) 04/25/17 09:10 Carbon Dioxide 31 mmol/L (21-32) 04/25/17 09:10 Anion Gap 9 (8-16) 04/25/17 09:10 BUN 21 mg/dL (7-18) H 04/25/17 09:10 Creatinine 0.9 mg/dL (0.55-1.02) D 04/25/17 09:10 Creat Clearance w eGFR > 60 (>60) 04/25/17 09:10 Calcium 8.5 mg/dL (8.5-10.1) 04/25/17 09:10 Total Bilirubin 0.8 mg/dL (0.2-1.0) 04/25/17 09:10 AST 25 U/L (15-37) 04/25/17 09:10 ALT 15 U/L (12-78) 04/25/17 09:10 Alkaline Phosphatase 97 U/L (45-117) 04/25/17 09:10 Total Protein 6.9 g/dl (6.4-8.2) 04/25/17 09:10 Albumin 3.2 g/dl (3.4-5.0) L 04/25/17 09:10 Medical Decision Making 82 F with abdominal pain, diarrhea. Pt with significant surgical history, including appy, dominique, hysterectomy, and SBOs s/p LOAs. Will obtain CTAP to r/o acute intraabdominal process. CTAP negative for acute intraabdominal pathology - no evidence of SBO or colitis. Stool cultures ordered. Was put on Abx for presumptive UTI and cellulitis. ID planning to discontinue. Would monitor any infection process, defer to ID regarding this. Mental status appears to be at baseline at this time. Recommend minimizing opioid medication as much as possible. Continue monitoring mental status. Recommend optimized PO hydration. She may benefit from outpatient evaluation once acute issues have resolved. Can follow up in office for further care.
[2017-04-25] MEDS: WARFARIN NA 2 MG TABLET (UD) PO SCH (18:13)
[2017-04-25] MEDS: MONTELUKAST NA 10 MG TABLET PO SCH (22:44)
[2017-04-26 07:03] LABS: BASOPHIL 0.5 % (0-2.0); EOSINOPHIL 5.7 % (0-4.5); MCHC 31.3 g/dl (32.0-36.0); MEAN PLT VOLUME 7.9 fl (7.5-11.1); PLATELET COUNT 237 K/MM3 (134-434); WHITE BLOOD COUNT 9.3 K/mm3 (4.0-10.0)
[2017-04-26 07:13] LABS: ANION GAP 5 (8-16); C-REACTIVE PROTEIN 2.3 MG/DL (0.00-0.3); CALCIUM 8.2 mg/dL (8.5-10.1); CO2 32 mmol/L (21-32); CREATININE 0.7 mg/dL (0.55-1.02); GLUCOSE,RANDOM 123 mg/dL (74-106)
[2017-04-26] MEDS: LEVOTHYROXINE NA 50 MCG TABLET (FP) PO SCH (07:36)
[2017-04-26] MEDS: INSULIN SLIDING SCALE (NOVOLOG) 1 VIAL SQ SCH ×4 (07:37→21:33)
[2017-04-26] MEDS: NYSTATIN POWDER 100,000 UNITS/GM - 15 GM TOPICAL POWDER TP SCH ×3 (07:39→21:33)
[2017-04-26 08:05] LABS: INR 2.45 (0.82-1.09); PROTHROMBIN TIME (PATIENT) 27.5 SEC (9.98-11.88)
--- NOTE | 2017-04-26 08:47 | CONS ---
DATE OF CONSULTATION: DATE OF DICTATION: 04/25/2017 HISTORY OF PRESENT ILLNESS: This is an 82-year-old woman who is morbidly obese. She lives alone at home. She uses a walker. She has difficulty attending appointments due to lack of transportation. She was admitted with a 1-week history of nonbloody watery diarrhea that has since admission resolved. She was admitted yesterday. She has no fevers. She has no pets or trauma. There are no bites. She has no travel history. She has a history of venostasis of her legs. She has had ulcers in the past and a history of MRSA in 2014. She now complains of gas pains. 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 She had a CAT scan of her abdomen done in the emergency room that shows no evidence of any intraabdominal pathology. PAST MEDICAL HISTORY: Notable for history of atrial fibrillation, CHF, DVT, hypertension, hyperlipidemia, asthma, COPD, hiatal hernia, osteoarthritis, diabetes, hypothyroidism. She has had venostasis ulcers in the past that have healed. As well, she is morbidly obese. SURGICAL HISTORY: Notable for appendectomy, cholecystectomy, hernia repair x3, oophorectomy, and tonsillectomy. ALLERGIES: She has no known drug allergies. MEDICATIONS AT HOME: Include albuterol, allopurinol, diltiazem, Singulair, Spiriva, Lasix, Synthroid, Amaryl, digoxin, Bacid, Roxicodone, K-Dur. SOCIAL HISTORY: She lives alone. Her son lives in [facility]. She uses a walker. She is a former smoker; she quit in 2007. No history of any substance use. REVIEW OF SYSTEMS: There is no cough. There is no nausea or vomiting and her diarrhea has resolved. She has no dysuria. She has no frequency. She has no complaints. She has no CVA tenderness. FAMILY HISTORY: Notable for heart disease, alcoholic cirrhosis. PHYSICAL EXAMINATION:General: She is awake and alert. Vital Signs: She has had no fever, temperature is 98.6, pulse of 84, blood pressure is 120/66, respiratory rate is 20, she weighs 300 pounds. HEENT: She is normocephalic. Her eyes are anicteric. Neck: Supple. Lungs: Have diminished breath sounds at the bases. Heart: Regular rate and rhythm. Abdomen: She has multiple abdominal scars on her upper abdomen. Nontender. She has good bowel sounds. She has a huge pannus. It has chronic induration and scaling. The pannus is slightly pink, but it has no erythema or warmth. Extremities: She has venostasis changes and her feet are pink. On her right foot 2nd toe, she has evidence of a callus on the tip of the toe. LABORATORY DATA: Her white count is 9.4, hemoglobin 13.2, platelets are 293. INR is 2.4. BUN is 21 and creatinine is 0.9. LFTs are normal. Urinalysis has 3+ leukocyte esterase. Her digoxin level is 0.6. ASSESSMENT: In summary, this is an 82-year-old woman who I doubt has cellulitis. She has no symptoms of urinary tract infection. RECOMMENDATIONS: I would suggest we stop her antibiotics and observe. I would x-ray her foot and follow up with Podiatry. Discussed all of the above with Dr. Storey who agrees with this plan. DESIREE MICHEL M.D. [id number]
--- NOTE | 2017-04-26 09:02 | PN ---
Progress Note (short form) - Note Progress Note: Chief Complaint: Events noted notes reviewed. Lethergic but easily arousable, denies any abdominl discomfort or recurrent diarrhea, denies any chest pain or dyspnea History of Present Illness: Seen and examined on telemetry. Events noted notes reviewed. Denies any chest pain or dyspnea, lethergic but easily arousable Medications: Current Medications Acetaminophen (Tylenol -) 650 mg PO Q6H PRN PRN Reason: FEVER OR PAIN Aclidinium [place] (Tudorza -) 1 puff IH BID [facility] Last Admin: 04/25/17 22:53 Dose: 1 puff Albuterol Sulfate (Ventolin Hfa Inhaler -) 2 puff IH Q6H PRN PRN Reason: SHORTNESS OF BREATH Digoxin (Lanoxin -) 0.125 mg PO DAILY [facility] Last Admin: 04/25/17 09:49 Dose: 0.125 mg Diltiazem HCl (Cardizem Cd -) 180 mg PO DAILY [facility] Last Admin: 04/25/17 09:49 Dose: 180 mg Docusate Sodium (Colace -) 100 mg PO BID PRN PRN Reason: CONSTIPATION Insulin Aspart (Novolog Vial Sliding Scale -) 1 vial SQ ACHS [facility] PRN Reason: Protocol Last Admin: 04/26/17 07:37 Dose: Not Given Lactobacillus Acidophilus (Bacid -) 1 tab PO DAILY [facility] Last Admin: 04/25/17 09:48 Dose: 1 tab Levothyroxine Sodium (Synthroid -) 50 mcg PO DAILY@0700 [facility] Last Admin: 04/26/17 07:36 Dose: 50 mcg Lisinopril (Prinivil) 5 mg PO DAILY [facility] Last Admin: 04/25/17 09:49 Dose: 5 mg Montelukast Sodium (Singulair -) 10 mg PO HS [facility] Last Admin: 04/25/17 22:44 Dose: 10 mg Nystatin (Nystop Powder -) 1 applic TP TID [facility] Last Admin: 04/26/17 07:39 Dose: Not Given Oxycodone HCl (Roxicodone -) 5 mg PO Q12H PRN PRN Reason: PAIN Last Admin: 04/25/17 04:05 Dose: 5 mg Potassium Chloride (K-Dur -) 20 meq PO QID [facility] Last Admin: 04/25/17 22:44 Dose: 20 meq Warfarin Sodium (Coumadin -) 4 mg PO DAILY@1800 [facility] Last Admin: 04/25/17 18:13 Dose: 4 mg Review of Systems Cardiovascular: As noted above Respiratory: denies: Cough or Sputum Production Gastrointestinal: denies: Nausea, Vomiting, Constipation or Abdominal Discomfort Musculoskeletal: No Symptoms Reported Endocrine: No Symptoms Reported Vital Signs: Last Vital Signs Temp Pulse Resp BP Pulse Ox 98.0 F 88 16 116/57 93 L 04/26/17 06:00 04/26/17 06:00 04/26/17 06:00 04/26/17 06:00 04/25/17 21:00 Intake & Output 04/23/17 04/24/17 04/25/17 04/26/17 23:59 23:59 23:59 23:59 Intake Total 470 Output Total 325 Balance 145 Weight 300 lb 300 lb Neck: Supple Negative JVD No Bruit Respiratory: Diminished Breath Sounds at the Bases Cardiovascular: S1 S2 Irregularly Irregular Gastrointestinal: Soft Benign Normal Bowel Sounds Ext: Edema Labs: CBC, BMP 04/26/17 06:00 04/26/17 06:00 Hepatic Panel Total Bilirubin 0.8 mg/dL (0.2-1.0) 04/25/17 09:10 AST 25 U/L (15-37) 04/25/17 09:10 ALT 15 U/L (12-78) 04/25/17 09:10 Alkaline Phosphatase 97 U/L (45-117) 04/25/17 09:10 Albumin 3.2 g/dl (3.4-5.0) L 04/25/17 09:10 INR, PTT INR 2.45 (0.82-1.09) H 04/26/17 06:00 Assessment/Plan ASSESSMENT: 1. Abdominal pain and diarrhea, etiology of which is unclear, resolved 2. CAD angina pectoris, stable 3. Diastolic LV dysfunction with chronic class I NYHA classification LV congestive heart failure, compensated/euvolemic 4. Permanent atrial fibrillation [id number] score of 7 on Coumadin therapy 5. HTN/hypertensive cardiovascular disease 6. DM 7. Hypothyroidism 8. COPD 9. Morbid obesity PLAN: 1. Continue Cardizem CD 2. Continue Digoxin with caution and close monitoring of level 3. Continue Lisinopril 4. Continue Coumadin as per INR and close monitoring of CBC Andrew Vines MD
[2017-04-26] MEDS ORDERED: PT OWN MED DRAWER 7, Y5N ONE (10:25)
[2017-04-26] MEDS: LACTOBACILLUS ACIDOPHILUS 1 EACH TAB (FP) PO SCH (10:33)
[2017-04-26] MEDS: ACLIDINIUM BROMIDE 400 MCG/INH AERO.POWD IH SCH ×2 (10:34→21:33)
[2017-04-26] MEDS: LISINOPRIL 5 MG TABLET (FP) PO SCH (10:34)
[2017-04-26] MEDS: DIGOXIN 0.125 MG TABLET (FP) PO SCH (10:34)
[2017-04-26] MEDS: POTASSIUM CHLORIDE TABS 20 MEQ TABLET.ER (FP) PO SCH ×4 (10:34→21:33)
--- NOTE | 2017-04-26 11:01 | PN ---
Progress Note (short form) - Note Progress Note: Patient seen and examined. Denies nausea, vomiting, abdominal pain. Afebrile. Denies chest pain, shortness of breath, palpitation or dizziness. On Exam: Vital Signs Period Temp Pulse Resp BP Sys/Luke Pulse Ox Last 24 Hr 97.7 F-98.3 F 77-88 16-22 110-130/46-77 93 Alert, awake, in non acute distress Chest: Clear Heart: Irregular Neck: No obvious bruit EXT: Chronic thickened stasis changes both lower extremities with painful ? callus 2nd toe right foot Pannus with chronic changes of myers and possibly some mild erythema surrounding the chronic changes CBC, BMP 04/26/17 06:00 04/26/17 06:00 IMP: - Acute Hypokalemia - Resolved. - A. Fib Rate controlled. Continue current management. Cardiology input appreciated. - Abdominal pain resolved. CT A&P reviewed. - R 2nd digit pre-trophic pressure lesion S/P Debridement of hyperkeratotic pre-trophic lesion. No underlying ulceration noted. - Hypothroidism Stable. Continue levothyroxine. - ? Dementia Neurology consult appreciated. at baseline. - DM Type 2 A1c 8.2 Continue ISS for now. - Hypertension - Gout - Possible Dementia Plan: Patient seen by ID/Neurology/Cardiology/Podiatry Nil acute. Stable. Possible C tomorrow.
[2017-04-26 11:22] LABS: ERYTHROCYTE SEDIMENTATION RATE 39 mm/hr (0-30)
[2017-04-26] MEDS ORDERED: INSULIN (NOVOLOG) ASPART 100 UNITS/ML 10ML VIAL ONE ×3 (11:42→19:24)
[2017-04-26] MEDS: WARFARIN NA 2 MG TABLET (UD) PO SCH (17:33)
[2017-04-26] MEDS: MONTELUKAST NA 10 MG TABLET PO SCH (21:33)
[2017-04-27] MEDS: LEVOTHYROXINE NA 50 MCG TABLET (FP) PO SCH (06:27)
[2017-04-27] MEDS: NYSTATIN POWDER 100,000 UNITS/GM - 15 GM TOPICAL POWDER TP SCH ×3 (06:28→21:54)
[2017-04-27] MEDS: INSULIN SLIDING SCALE (NOVOLOG) 1 VIAL SQ SCH ×4 (06:28→21:53)
[2017-04-27 08:32] LABS: ANION GAP 7 (8-16); CALCIUM 8.8 mg/dL (8.5-10.1); CO2 28 mmol/L (21-32); CREATININE 0.7 mg/dL (0.55-1.02); GLUCOSE,RANDOM 125 mg/dL (74-106); INR 2.56 (0.82-1.09); PROTHROMBIN TIME (PATIENT) 28.7 SEC (9.98-11.88)
[2017-04-27] MEDS: LACTOBACILLUS ACIDOPHILUS 1 EACH TAB (FP) PO SCH (09:21)
[2017-04-27] MEDS: LISINOPRIL 5 MG TABLET (FP) PO SCH (09:21)
[2017-04-27] MEDS: DIGOXIN 0.125 MG TABLET (FP) PO SCH (09:21)
[2017-04-27] MEDS: ACLIDINIUM BROMIDE 400 MCG/INH AERO.POWD IH SCH ×2 (09:21→21:54)
[2017-04-27] MEDS: POTASSIUM CHLORIDE TABS 20 MEQ TABLET.ER (FP) PO SCH ×4 (11:11→21:53)
--- NOTE | 2017-04-27 13:56 | PN ---
Progress Note (short form) - Note Progress Note: No bowel movement for last 2 days. Denies nausea, vomiting, abdominal pain. Afebrile. Denies chest pain, shortness of breath, palpitation or dizziness. On Exam: Vital Signs Period Temp Pulse Resp BP Sys/Luke Pulse Ox Last 24 Hr 97.9 F-98.3 F 67-88 16-22 111-126/45-53 96 Alert, awake, in non acute distress Chest: Clear Heart: Irregular Neck: No obvious bruit EXT: Chronic thickened stasis changes both lower extremities with painful ? callus 2nd toe right foot Pannus with chronic changes of myers and possibly some mild erythema surrounding the chronic changes CBC, BMP 04/26/17 06:00 04/27/17 06:30 IMP: - Acute Hypokalemia - Resolved. - A. Fib Rate controlled. Continue current management. Cardiology input appreciated. - Abdominal pain resolved. CT A&P reviewed. - R 2nd digit pre-trophic pressure lesion S/P Debridement of hyperkeratotic pre-trophic lesion. No underlying ulceration noted. - Hypothroidism Stable. Continue levothyroxine. - ? Dementia Neurology consult appreciated. at baseline. - DM Type 2 A1c 8.2 Continue ISS for now. - Hypertension - Gout - Possible Dementia Plan: Patient seen by ID/Neurology/Cardiology/Podiatry Nil acute. Stable. Possible C tomorrow.
--- NOTE | 2017-04-27 15:16 | PN ---
Progress Note, Physician History of Present Illness: OOB in chair No complaints Afebrile WBC WNL - Current Medication List Current Medications: Active Medications Acetaminophen (Tylenol -) 650 mg PO Q6H PRN PRN Reason: FEVER OR PAIN Aclidinium [place] (Tudorza -) 1 puff IH BID [facility] Last Admin: 04/27/17 09:21 Dose: 1 puff Albuterol Sulfate (Ventolin Hfa Inhaler -) 2 puff IH Q6H PRN PRN Reason: SHORTNESS OF BREATH Digoxin (Lanoxin -) 0.125 mg PO DAILY [facility] Last Admin: 04/27/17 09:21 Dose: 0.125 mg Diltiazem HCl (Cardizem Cd -) 180 mg PO DAILY [facility] Last Admin: 04/27/17 09:21 Dose: 180 mg Docusate Sodium (Colace -) 100 mg PO BID PRN PRN Reason: CONSTIPATION Insulin Aspart (Novolog Vial Sliding Scale -) 1 vial SQ ACHS [facility] PRN Reason: Protocol Last Admin: 04/27/17 12:00 Dose: 2 units Lactobacillus Acidophilus (Bacid -) 1 tab PO DAILY [facility] Last Admin: 04/27/17 09:21 Dose: 1 tab Levothyroxine Sodium (Synthroid -) 50 mcg PO DAILY@0700 [facility] Last Admin: 04/27/17 06:27 Dose: 50 mcg Lisinopril (Prinivil) 5 mg PO DAILY [facility] Last Admin: 04/27/17 09:21 Dose: 5 mg Montelukast Sodium (Singulair -) 10 mg PO HS [facility] Last Admin: 04/26/17 21:33 Dose: 10 mg Nystatin (Nystop Powder -) 1 applic TP TID [facility] Last Admin: 04/27/17 06:28 Dose: Not Given Oxycodone HCl (Roxicodone -) 5 mg PO Q12H PRN PRN Reason: PAIN Last Admin: 04/25/17 04:05 Dose: 5 mg Potassium Chloride (K-Dur -) 20 meq PO QID [facility] Last Admin: 04/27/17 14:15 Dose: 20 meq Warfarin Sodium (Coumadin -) 4 mg PO DAILY@1800 [facility] Last Admin: 04/26/17 17:33 Dose: 4 mg - Objective Vital Signs: Vital Signs Temperature 98.2 F 04/27/17 14:00 Pulse Rate 72 04/27/17 14:00 Respiratory Rate 20 04/27/17 14:00 Blood Pressure 109/63 04/27/17 14:00 O2 Sat by Pulse Oximetry (%) 96 04/26/17 21:00 Constitutional: Yes: No Distress Eyes: Yes: Conjunctiva Clear Cardiovascular: Yes: Regular Rate and Rhythm, S1, S2 Respiratory: Yes: CTA Bilaterally Gastrointestinal: Yes: Normal Bowel Sounds, Soft, Other (+ large pannus without evidence of cellulitis). No: Tenderness Extremities: Yes: Other (+ LE stasis dermatitis) Labs: CBC, BMP 04/26/17 06:00 04/27/17 06:30 INR, PTT INR 2.56 (0.82-1.09) H 04/27/17 06:30 Assessment/Plan Observe off antibiotics
[2017-04-27] MEDS: WARFARIN NA 2 MG TABLET (UD) PO SCH (17:27)
[2017-04-27] MEDS: oxyCODONE HCL 5 MG TABLET PO PRN (21:54)
[2017-04-27] MEDS: MONTELUKAST NA 10 MG TABLET PO SCH (21:54)
[2017-04-27] MEDS: ACETAMINOPHEN 325 MG TABLET (FP) PO PRN (21:56)
[2017-04-28] MEDS: INSULIN SLIDING SCALE (NOVOLOG) 1 VIAL SQ SCH ×4 (06:29→21:08)
[2017-04-28] MEDS: NYSTATIN POWDER 100,000 UNITS/GM - 15 GM TOPICAL POWDER TP SCH ×3 (06:29→21:09)
[2017-04-28] MEDS: LEVOTHYROXINE NA 50 MCG TABLET (FP) PO SCH (06:35)
[2017-04-28 08:48] LABS: INR 2.61 (0.82-1.09); PROTHROMBIN TIME (PATIENT) 29.3 SEC (9.98-11.88)
[2017-04-28 08:55] LABS: ANION GAP 5 (8-16); CALCIUM 8.8 mg/dL (8.5-10.1); CO2 30 mmol/L (21-32); CREATININE 0.9 mg/dL (0.55-1.02); GLUCOSE,RANDOM 100 mg/dL (74-106)
--- NOTE | 2017-04-28 09:56 | PN ---
Progress Note (short form) - Note Progress Note: Neurology History of Present Illness Patient is a 82 year old female with a significant past medical history of multiple abdominal sx (appy, dominique, hysterectomy, LOAs), asthma, atrial fibrillation, COPD, CHF, CAD, dementia, diabetes, HTN, hypercholesterolemia, and hypothyroidism, who presents to the ED with abdominal pain and diarrhea since 04/19/17. Patient states that she was initially constipated on 04/18, which she believed was due to her oxycodone. She was admitted for further work up and neurology consulted to evaluate for possible confusion. She is being seen by ID for evaluation of UTI and cellulitis but do not appear active issues. During my evaluation, was aware of person, place, date, could tell me the name of the President and did not have difficulty with conversation today either. Thought process and content was intact. She does report some forgetfulness but otherwise reports being cognitive at baseline. No new neurologic events. Past History - Past Medical History Allergies/Adverse Reactions: Allergies Allergy/AdvReac Type Severity Reaction Status Date / Time No Known Allergies Allergy Verified 04/24/17 16:28 Home Medications: Ambulatory Orders Albuterol Sulfate Inhaler - [Ventolin HFA Inhaler -] 2 inh IH Q6H PRN #0 inh 04/27 Allopurinol [Zyloprim -] 100 mg PO DAILY #0 tablet 06/22/13 Diltiazem Cd [Cardizem Cd -] 180 mg PO DAILY #0 cap.cd.24h 06/22/13 Montelukast Na [Singulair -] 10 mg PO HS #0 tablet 06/22/13 Acetaminophen [Tylenol .Regular Strength -] 650 mg PO Q6H PRN #240 tablet Tiotropium Orange [Spiriva] 1 inh PO DAILY #1 inhaler 06/23/13 Furosemide [Lasix -] 40 mg PO BID 03/02/14 Levothyroxine [Synthroid -] 50 mcg PO DAILY 03/02/14 Glimepiride [Amaryl] 2 mg PO BID 08/07/14 Digoxin [Lanoxin -] 1 tab PO DAILY #90 tablet 09/08/15 Lactobacillus Acidophilus [Bacid -] 1 tab PO DAILY #30 tab 09/08/15 Oxycodone HCl [Roxicodone -] 5 mg PO Q12H PRN #0 tablet 09/08/15 Potassium Chloride [K-Dur] 20 meq PO QID #0 09/08/15 Sulfamethoxazole/Trimethoprim [Bactrim DS -] 1 each PO BID #20 tablet 09/08/15 Warfarin Na [Coumadin -] 4 mg PO DAILY@1800 tablet 02/20/16 *Physical Exam Vital Signs Temperature 98 F 04/28/17 06:00 Pulse Rate 84 04/28/17 06:00 Respiratory Rate 20 04/28/17 06:00 Blood Pressure 134/65 04/28/17 06:00 O2 Sat by Pulse Oximetry (%) 95 04/27/17 21:00 "GENERAL: Awake, alert, and fully oriented, in no acute distress, knows person, place, date, President HEAD: No signs of trauma EYES: PERRLA, EOMI, sclera anicteric, conjunctiva clear ENT: Auricles normal inspection, hearing grossly normal, nares patent, oropharynx clear without exudates. Moist mucosa NECK: Normal ROM, supple, no lymphadenopathy, JVD, or masses LUNGS: Breath sounds equal, clear to auscultation bilaterally. No wheezes, and no crackles HEART: Regular rate and rhythm, normal S1 and S2, no murmurs, rubs or gallops ABDOMEN: Soft, obese, mild periumbilical tenderness, normoactive bowel sounds. No guarding, no rebound. No masses. Skin under pannus erythematous and edematous, no fluctuance or drainage noted. EXTREMITIES: Normal range of motion, no edema. No clubbing or cyanosis. No cords, erythema, or tenderness NEUROLOGICAL: Cranial nerves II through XII grossly intact. Normal speech, strenght grossly intact, sensory equal SKIN: Warm, Dry, normal turgor, no rashes or lesions noted. CBC, BMP 04/26/17 06:00 04/28/17 07:45 Medical Decision Making 82 F with abdominal pain, diarrhea. Pt with significant surgical history, including appy, dominique, hysterectomy, and SBOs s/p LOAs. Will obtain CTAP to r/o acute intraabdominal process. CTAP negative for acute intraabdominal pathology - no evidence of SBO or colitis. Stool cultures ordered. Was put on Abx for presumptive UTI and cellulitis. ID following. Would monitor any infection process, defer to ID regarding this. Mental status appears to be at baseline at this time. Recommend minimizing opioid medication as much as possible. Continue monitoring mental status. Recommend optimized PO hydration. She may benefit from outpatient evaluation once acute issues have resolved. Can follow up in office for further care.
[2017-04-28] MEDS ORDERED: PT OWN MED DRAWER 7, Y5N ONE (10:05)
--- NOTE | 2017-04-28 10:09 | PN ---
Progress Note (short form) - Note Progress Note: Patient still upset regarding long waiting ER before getting to her room Friday AM. More alert but still weak. She has been on Lasix 80mg daily at home and I will restart 60mg as she has more edema especially in LLE. Needs a senior apt. but still lives in her house alone. Appreciate Foot . On Exam: Vital Signs Temp 98 F 04/28/17 06:00 Pulse 84 04/28/17 06:00 Resp 20 04/28/17 06:00 BP 134/65 04/28/17 06:00 Pulse Ox 95 04/27/17 21:00 Intake & Output 04/27/17 04/27/17 04/28/17 11:59 23:59 11:59 Intake Total 0 1360 Balance 0 1360 Weight 315 lb 6.4 oz 318 lb Intake: IVPB 0 Oral 1360 Other: Voiding Method Toilet Toilet # Unmeasured Voids Void 1 2 Bowel Movement No No # Bowel Movements 1 Weight Measurement Method Built in [facility] Built in [facility] More alert Chest: Rare wheeze Cor: Irregular Ext: 1-2+ edema Iespecially LLE Abnormal Lab Results 04/28/17 04/28/17 07:45 07:45 INR 2.61 H Potassium 5.2 H Anion Gap 5 L BUN 22 H IMP: Mild hyperkalemia; To lower KCL dose Pedal Edema; restart Lasix F/U INR PT VNS ? home Friday
[2017-04-28] MEDS ORDERED: FUROSEMIDE 20 MG TABLET (FP) PO ONE (10:15)
--- NOTE | 2017-04-28 10:28 | PN ---
Progress Note, Physician History of Present Illness: Abd pain improved. - Current Medication List Current Medications: Active Medications Acetaminophen (Tylenol -) 650 mg PO Q6H PRN PRN Reason: FEVER OR PAIN Last Admin: 04/27/17 21:56 Dose: 650 mg Aclidinium [place] (Tudorza -) 1 puff IH BID [facility] Last Admin: 04/27/17 21:54 Dose: 1 puff Albuterol Sulfate (Ventolin Hfa Inhaler -) 2 puff IH Q6H PRN PRN Reason: SHORTNESS OF BREATH Digoxin (Lanoxin -) 0.125 mg PO DAILY [facility] Last Admin: 04/27/17 09:21 Dose: 0.125 mg Diltiazem HCl (Cardizem Cd -) 180 mg PO DAILY [facility] Last Admin: 04/27/17 09:21 Dose: 180 mg Docusate Sodium (Colace -) 100 mg PO BID PRN PRN Reason: CONSTIPATION Last Admin: 04/27/17 21:53 Dose: 100 mg Insulin Aspart (Novolog Vial Sliding Scale -) 1 vial SQ ACHS [facility] PRN Reason: Protocol Last Admin: 04/28/17 06:29 Dose: Not Given Lactobacillus Acidophilus (Bacid -) 1 tab PO DAILY [facility] Last Admin: 04/27/17 09:21 Dose: 1 tab Levothyroxine Sodium (Synthroid -) 50 mcg PO DAILY@0700 [facility] Last Admin: 04/28/17 06:35 Dose: 50 mcg Lisinopril (Prinivil) 5 mg PO DAILY [facility] Last Admin: 04/27/17 09:21 Dose: 5 mg Montelukast Sodium (Singulair -) 10 mg PO HS [facility] Last Admin: 04/27/17 21:54 Dose: 10 mg Nystatin (Nystop Powder -) 1 applic TP TID [facility] Last Admin: 04/28/17 06:29 Dose: Not Given Potassium Chloride (K-Dur -) 20 meq PO TID [facility] Warfarin Sodium (Coumadin -) 4 mg PO DAILY@1800 [facility] Last Admin: 04/27/17 17:27 Dose: 4 mg - Objective Vital Signs: Vital Signs Temperature 98 F 04/28/17 06:00 Pulse Rate 84 04/28/17 06:00 Respiratory Rate 20 04/28/17 06:00 Blood Pressure 134/65 04/28/17 06:00 O2 Sat by Pulse Oximetry (%) 95 08/13/17 21:00 Constitutional: Yes: No Distress, Calm Neck: Yes: Supple Cardiovascular: Yes: Pulse Irregular Respiratory: Yes: Regular, Diminished Gastrointestinal: Yes: Normal Bowel Sounds, Soft, Abdomen, Obese Edema: Yes Edema: LLE: 1+, RLE: 1+ Labs: CBC, BMP 04/26/17 06:00 04/28/17 07:45 INR, PTT INR 2.61 (0.82-1.09) H 04/28/17 07:45 Problem List - Problems (1) Atrial fibrillation Code(s): I48.91 - UNSPECIFIED ATRIAL FIBRILLATION Qualifiers: Atrial fibrillation type: chronic Qualified Code(s): I48.2 - Chronic atrial fibrillation (2) COPD (chronic obstructive pulmonary disease) Code(s): J44.9 - CHRONIC OBSTRUCTIVE PULMONARY DISEASE, UNSPECIFIED Qualifiers : COPD type: COPD with acute exacerbation Qualified Code(s): J44.1 - Chronic obstructive pulmonary disease with (acute) exacerbation (3) Chronic wound of extremity Code(s): KON1308 - (4) Diabetes Code(s): E11.9 - TYPE 2 DIABETES MELLITUS WITHOUT COMPLICATIONS Qualifiers: Diabetes mellitus type: type 2 Diabetes mellitus complication status: with hyperglycemia Diabetes mellitus mcfp insulin use: without mcfp use Qualified Code(s): E11.65 - Type 2 diabetes mellitus with hyperglycemia; 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 Abdominal pain and diarrhea, resolved 2. CAD angina pectoris, stable 3. Diastolic LV dysfunction with chronic class I NYHA classification LV congestive heart failure, compensated/euvolemic 4. Permanent atrial fibrillation [id number] score of 7 on Coumadin therapy 5. HTN/hypertensive cardiovascular disease 6. DM 7. Hypothyroidism 8. COPD 9. Morbid obesity suspect [place]ATER[place]/OHS PLAN: 1. Continue Cardizem CD 180 qd 2. Continue Digoxin 0.125 qd with caution and close monitoring of level 3. Continue Lisinopril 5 qd 4. Continue Coumadin as per INR and close monitoring of CBC 5. D/c planning, sleep study as outpatient
[2017-04-28] MEDS: LACTOBACILLUS ACIDOPHILUS 1 EACH TAB (FP) PO SCH (10:38)
[2017-04-28] MEDS: LISINOPRIL 5 MG TABLET (FP) PO SCH (10:38)
[2017-04-28] MEDS: DIGOXIN 0.125 MG TABLET (FP) PO SCH (10:41)
[2017-04-28] MEDS: ACLIDINIUM BROMIDE 400 MCG/INH AERO.POWD IH SCH ×2 (10:42→21:08)
[2017-04-28] MEDS: POTASSIUM CHLORIDE TABS 20 MEQ TABLET.ER (FP) PO SCH ×2 (14:59→21:08)
[2017-04-28] MEDS: WARFARIN NA 2 MG TABLET (UD) PO SCH (17:19)
[2017-04-28] MEDS: POLYETHYLENE GLYCOL 3350 119 GM BTL PO SCH (20:00)
[2017-04-28] MEDS ORDERED: INSULIN (NOVOLOG) ASPART 100 UNITS/ML 10ML VIAL ONE (21:04)
[2017-04-28] MEDS: MONTELUKAST NA 10 MG TABLET PO SCH (21:08)
[2017-04-28] MEDS ORDERED: oxyCODONE HCL 5 MG TABLET PO PRN (21:57)
[2017-04-28] MEDS: ACETAMINOPHEN 325 MG TABLET (FP) PO PRN (22:25)
[2017-04-29] MEDS: LEVOTHYROXINE NA 50 MCG TABLET (FP) PO SCH (06:22)
[2017-04-29] MEDS: POTASSIUM CHLORIDE TABS 20 MEQ TABLET.ER (FP) PO SCH (06:22)
[2017-04-29] MEDS: NYSTATIN POWDER 100,000 UNITS/GM - 15 GM TOPICAL POWDER TP SCH (06:23)
[2017-04-29] MEDS: INSULIN SLIDING SCALE (NOVOLOG) 1 VIAL SQ SCH ×2 (06:23→11:44)
[2017-04-29 07:58] LABS: INR 2.93 (0.82-1.09); PROTHROMBIN TIME (PATIENT) 32.9 SEC (9.98-11.88)
[2017-04-29 08:19] LABS: ANION GAP 7 (8-16); CALCIUM 8.7 mg/dL (8.5-10.1); CO2 28 mmol/L (21-32); CREATININE 0.9 mg/dL (0.55-1.02); GLUCOSE,RANDOM 114 mg/dL (74-106)
[2017-04-29] MEDS: DIGOXIN 0.125 MG TABLET (FP) PO SCH (09:29)
[2017-04-29] MEDS: LISINOPRIL 5 MG TABLET (FP) PO SCH (09:29)
[2017-04-29] MEDS: LACTOBACILLUS ACIDOPHILUS 1 EACH TAB (FP) PO SCH (09:30)
[2017-04-29] MEDS: POLYETHYLENE GLYCOL 3350 119 GM BTL PO SCH (09:33)
[2017-04-29 09:36] VITALS: PULSE 105
[2017-04-29] MEDS: ACLIDINIUM BROMIDE 400 MCG/INH AERO.POWD IH SCH (09:36)
[2017-04-29 09:46] VITALS: BP 118/83; TEMP 98
--- NOTE | 2017-04-29 09:54 | PN ---
Progress Note (short form) - Note Progress Note: Neurology History of Present Illness Patient is a 82 year old female with a significant past medical history of multiple abdominal sx (appy, dominique, hysterectomy, LOAs), asthma, atrial fibrillation, COPD, CHF, CAD, dementia, diabetes, HTN, hypercholesterolemia, and hypothyroidism, who presents to the ED with abdominal pain and diarrhea since 04/19/17. Patient states that she was initially constipated on 04/18, which she believed was due to her oxycodone. She was admitted for further work up and neurology consulted to evaluate for possible confusion. She is being seen by ID for evaluation of UTI and cellulitis but do not appear active issues. During my evaluation, again was aware of person, place, date, could tell me the name of the President and did not have difficulty with conversation. Thought process and content was intact. She does report some forgetfulness but otherwise reports being cognitive at baseline. No new neurologic events. Up and walking around with walker and inquiring regarding discharge. Active Medications Acetaminophen (Tylenol -) 650 mg PO Q6H PRN PRN Reason: FEVER OR PAIN Last Admin: 04/28/17 22:25 Dose: 650 mg Aclidinium [place] (Tudorza -) 1 puff IH BID [facility] Last Admin: 04/29/17 09:36 Dose: 1 puff Albuterol Sulfate (Ventolin Hfa Inhaler -) 2 puff IH Q6H PRN PRN Reason: SHORTNESS OF BREATH Digoxin (Lanoxin -) 0.125 mg PO DAILY [facility] Last Admin: 04/29/17 09:29 Dose: 0.125 mg Diltiazem HCl (Cardizem Cd -) 180 mg PO DAILY [facility] Last Admin: 04/29/17 09:29 Dose: 180 mg Docusate Sodium (Colace -) 100 mg PO BID PRN PRN Reason: CONSTIPATION Last Admin: 04/27/17 21:53 Dose: 100 mg Insulin Aspart (Novolog Vial Sliding Scale -) 1 vial SQ ACHS [facility] PRN Reason: Protocol Last Admin: 04/29/17 06:23 Dose: Not Given Lactobacillus Acidophilus (Bacid -) 1 tab PO DAILY [facility] Last Admin: 04/29/17 09:30 Dose: 1 tab Levothyroxine Sodium (Synthroid -) 50 mcg PO DAILY@0700 [facility] Last Admin: 04/29/17 06:22 Dose: 50 mcg Lisinopril (Prinivil) 5 mg PO DAILY [facility] Last Admin: 04/29/17 09:29 Dose: 5 mg Montelukast Sodium (Singulair -) 10 mg PO HS [facility] Last Admin: 04/28/17 21:08 Dose: 10 mg Nystatin (Nystop Powder -) 1 applic TP TID [facility] Last Admin: 04/29/17 06:23 Dose: 1 applic Oxycodone HCl (Roxicodone -) 5 mg PO Q12H PRN PRN Reason: FOR PAIN Last Admin: 04/28/17 22:24 Dose: 5 mg Polyethylene Glycol (Miralax (For Daily Use) -) 17 gm PO DAILY [facility] Last Admin: 04/29/17 09:33 Dose: 17 gm Potassium Chloride (K-Dur -) 20 meq PO TID [facility] Last Admin: 04/29/17 06:22 Dose: 20 meq Warfarin Sodium (Coumadin -) 4 mg PO DAILY@1800 [facility] Last Admin: 04/28/17 17:19 Dose: 4 mg *Physical Exam Vital Signs Temperature 98.0 F 04/29/17 09:00 Pulse Rate 105 H 04/29/17 09:29 Respiratory Rate 20 04/29/17 09:00 Blood Pressure 118/83 04/29/17 09:00 O2 Sat by Pulse Oximetry (%) 96 04/28/17 21:00 "GENERAL: Awake, alert, and fully oriented, in no acute distress, knows person, place, date, President HEAD: No signs of trauma EYES: PERRLA, EOMI, sclera anicteric, conjunctiva clear ENT: Auricles normal inspection, hearing grossly normal, nares patent, oropharynx clear without exudates. Moist mucosa NECK: Normal ROM, supple, no lymphadenopathy, JVD, or masses LUNGS: Breath sounds equal, clear to auscultation bilaterally. No wheezes, and no crackles HEART: Regular rate and rhythm, normal S1 and S2, no murmurs, rubs or gallops ABDOMEN: Soft, obese, mild periumbilical tenderness, normoactive bowel sounds. No guarding, no rebound. No masses. Skin under pannus erythematous and edematous, no fluctuance or drainage noted. EXTREMITIES: Normal range of motion, no edema. No clubbing or cyanosis. No cords, erythema, or tenderness NEUROLOGICAL: Cranial nerves II through XII grossly intact. Normal speech, strenght grossly intact, sensory equal SKIN: Warm, Dry, normal turgor, no rashes or lesions noted. CBCD WBC 9.3 K/mm3 (4.0-10.0) 04/26/17 06:00 RBC 4.63 M/mm3 (3.60-5.2) 04/26/17 06:00 Hgb 12.0 GM/dL (10.7-15.3) 04/26/17 06:00 Hct 38.5 % (32.4-45.2) 04/26/17 06:00 MCV 83.0 fl (80-96) 04/26/17 06:00 MCHC 31.3 g/dl (32.0-36.0) L 04/26/17 06:00 RDW 19.0 % (11.6-15.6) H 04/26/17 06:00 Plt Count 237 K/MM3 (134-434) 04/26/17 06:00 MPV 7.9 fl (7.5-11.1) 04/26/17 06:00 CMP Sodium 138 mmol/L (136-145) 04/29/17 06:00 Potassium 4.5 mmol/L (3.5-5.1) 04/29/17 06:00 Chloride 103 mmol/L (98-107) 04/29/17 06:00 Carbon Dioxide 28 mmol/L (21-32) 04/29/17 06:00 Anion Gap 7 (8-16) L 04/29/17 06:00 BUN 24 mg/dL (7-18) H 04/29/17 06:00 Creatinine 0.9 mg/dL (0.55-1.02) 04/29/17 06:00 Creat Clearance w eGFR > 60 (>60) 04/25/17 09:10 Calcium 8.7 mg/dL (8.5-10.1) 04/29/17 06:00 Total Bilirubin 0.8 mg/dL (0.2-1.0) 04/25/17 09:10 AST 25 U/L (15-37) 04/25/17 09:10 ALT 15 U/L (12-78) 04/25/17 09:10 Alkaline Phosphatase 97 U/L (45-117) 04/25/17 09:10 Total Protein 6.9 g/dl (6.4-8.2) 04/25/17 09:10 Albumin 3.2 g/dl (3.4-5.0) L 04/25/17 09:10 Medical Decision Making 82 F with abdominal pain, diarrhea. Pt with significant surgical history, including appy, dominique, hysterectomy, and SBOs s/p LOAs. Will obtain CTAP to r/o acute intraabdominal process. CTAP negative for acute intraabdominal pathology - no evidence of SBO or colitis. Stool cultures ordered. Was put on Abx for presumptive UTI and cellulitis. ID following. Would monitor any infection process, defer to ID regarding this. Mental status appears to be at baseline at this time. Recommend minimizing opioid medication as much as possible. Continue monitoring mental status. Recommend optimized PO hydration. She may benefit from outpatient evaluation once acute issues have resolved. Can follow up in office for further care. Fall precautions with walker as patient on Warfarin, discussed. Neurologically stable at this time.
--- NOTE | 2017-04-29 14:49 | PN ---
Progress Note (short form) - Note Progress Note: Chief Complaint: Events noted notes reviewed. Denies any chest pain or dyspnea, denies any abdominal discomfort or recurrent diarrhea History of Present Illness: Seen and examined. Events noted notes reviewed. Denies any chest pain or dyspnea , denies any abdominal discomfort or recurrent diarrhea Plan to discharge home today and patient was instructed to followup with Dr. Matt Ferraro Medications: Acetaminophen (Tylenol -) 650 mg PO Q6H PRN PRN Reason: FEVER OR PAIN Last Admin: 04/27/17 21:56 Dose: 650 mg Aclidinium [place] (Tudorza -) 1 puff IH BID [facility] Last Admin: 04/27/17 21:54 Dose: 1 puff Albuterol Sulfate (Ventolin Hfa Inhaler -) 2 puff IH Q6H PRN PRN Reason: SHORTNESS OF BREATH Digoxin (Lanoxin -) 0.125 mg PO DAILY [facility] Last Admin: 04/27/17 09:21 Dose: 0.125 mg Diltiazem HCl (Cardizem Cd -) 180 mg PO DAILY [facility] Last Admin: 04/27/17 09:21 Dose: 180 mg Docusate Sodium (Colace -) 100 mg PO BID PRN PRN Reason: CONSTIPATION Last Admin: 04/27/17 21:53 Dose: 100 mg Insulin Aspart (Novolog Vial Sliding Scale -) 1 vial SQ ACHS [facility] PRN Reason: Protocol Last Admin: 04/28/17 06:29 Dose: Not Given Lactobacillus Acidophilus (Bacid -) 1 tab PO DAILY [facility] Last Admin: 04/27/17 09:21 Dose: 1 tab Levothyroxine Sodium (Synthroid -) 50 mcg PO DAILY@0700 [facility] Last Admin: 04/28/17 06:35 Dose: 50 mcg Lisinopril (Prinivil) 5 mg PO DAILY [facility] Last Admin: 04/27/17 09:21 Dose: 5 mg Montelukast Sodium (Singulair -) 10 mg PO HS [facility] Last Admin: 04/27/17 21:54 Dose: 10 mg Nystatin (Nystop Powder -) 1 applic TP TID [facility] Last Admin: 04/28/17 06:29 Dose: Not Given Potassium Chloride (K-Dur -) 20 meq PO TID [facility] Warfarin Sodium (Coumadin -) 4 mg PO DAILY@1800 [facility] Last Admin: 04/27/17 17:27 Dose: 4 mg Review of Systems Cardiovascular: As noted above Respiratory: denies: Cough or Sputum Production Gastrointestinal: denies: Nausea, Vomiting, Constipation or Abdominal Discomfort Musculoskeletal: No Symptoms Reported Endocrine: No Symptoms Reported Vital Signs: Last Vital Signs Temp Pulse Resp BP Pulse Ox 98.0 F 105 H 20 118/83 96 04/29/17 09:00 04/29/17 09:29 04/29/17 09:00 04/29/17 09:00 04/29/17 09:00 Intake & Output 04/26/17 04/27/17 04/28/17 04/29/17 23:59 23:59 23:59 23:59 Intake Total 450 1360 1325 500 Balance 450 1360 1325 500 Weight 315 lb 6.4 oz 318 lb 319 lb 4 oz Neck: Supple Negative JVD No Bruit Respiratory: Diminished Breath Sounds at the Bases Cardiovascular: S1 S2 Irregularly Irregular Gastrointestinal: Soft Benign Normal Bowel Sounds Ext: Edema Labs: CBC, BMP 04/26/17 06:00 04/29/17 06:00 Assessment/Plan ASSESSMENT: 1. Abdominal pain and diarrhea, etiology of which is unclear, resolved 2. CAD angina pectoris, stable 3. Diastolic LV dysfunction with chronic class I NYHA classification LV congestive heart failure, compensated/euvolemic 4. Permanent atrial fibrillation [id number] score of 7 on Coumadin therapy 5. HTN/hypertensive cardiovascular disease 6. DM 7. Hypothyroidism 8. COPD 9. Morbid obesity PLAN: 1. Continue Cardizem CD 2. Continue Digoxin with caution and close monitoring of level 3. Continue Lisinopril 4. Continue Coumadin as per INR and close monitoring of CBC 5. As outlined above plan to discharge home today and patient was instructed to followup with Dr. Matt Vines MD
== END 2017-04-29 14:33 | disposition home health service (06) | DRG 640 ==
LOC: JER 16:20 → JERBED 22:14 → UNDOADMIN 22:33 → J4S 04-25 05:20 → J6S 04-26 19:40
PROVIDERS: ADMIT Internal Medicine; ATTEND Internal Medicine
DX: E87.6 Hypokalemia (principal); I50.33 Acute on chronic diastolic (congestive) heart failure; L03.311 Cellulitis of abdominal wall; Z68.42 Body mass index [BMI] 45.0-49.9, adult; I11.0 Hypertensive heart disease with heart failure; E66.01 Morbid (severe) obesity due to excess calories; I48.2 Chronic atrial fibrillation; J44.9 Chronic obstructive pulmonary disease, unspecified; I25.10 Atherosclerotic heart disease of native coronary artery without angina pectoris; E11.9 Type 2 diabetes mellitus without complications; E78.00 Pure hypercholesterolemia, unspecified; E03.9 Hypothyroidism, unspecified; Z79.01 Long term (current) use of anticoagulants; Z90.710 Acquired absence of both cervix and uterus; Z87.891 Personal history of nicotine dependence; R19.7 Diarrhea, unspecified; Z79.84 Long term (current) use of oral hypoglycemic drugs; F03.90 Unspecified dementia, unspecified severity, without behavioral disturbance, psychotic disturbance, mood disturbance, and anxiety; Z86.718 Personal history of other venous thrombosis and embolism; E87.2 Acidosis; M10.9 Gout, unspecified; I87.8 Other specified disorders of veins; M17.12 Unilateral primary osteoarthritis, left knee; Z91.11 Patient's noncompliance with dietary regimen
CPT/HCPCS: 36415; 71020-TC; 73630-TC-RT; 74177-TC; 76536-TC; 80048; 80053; 80162; 81003; 81015; 82803; 83036; 83605; 83690; 83735; 84100; 84439; 84443; 84484; 85025; 85610; 85651; 85730; 86140; 86850; 86900; 86901; 87081; 87086; 93005; 93010; 97116-GP; 97161-GP; 99285-25

== ENCOUNTER 2017-05-14 19:40 | Inpatient (IN) | payer OTHER ==
[2017-05-14 23:40] LABS: EOSINOPHIL 3.4 % (0-4.5); MCH 25.7 pg (25.7-33.7); MCHC 31.5 g/dl (32.0-36.0); MEAN CELL VOLUME 81.8 fl (80-96); MEAN PLT VOLUME 7.4 fl (7.5-11.1); NEUTROPHILS 75.9 % (42.8-82.8); PLATELET COUNT 355 K/MM3 (134-434); RDW 19.2 % (11.6-15.6); WHITE BLOOD COUNT 11.5 K/mm3 (4.0-10.0)
[2017-05-15 00:03] LABS: INR 2.23 (0.82-1.09); PROTHROMBIN TIME (PATIENT) 24.9 SEC (9.98-11.88)
[2017-05-15 00:10] LABS: ANION GAP 8 (8-16); BILIRUBIN,TOTAL 0.7 mg/dL (0.2-1.0); C-REACTIVE PROTEIN 8.4 MG/DL (0.00-0.3); CALCIUM 9.3 mg/dL (8.5-10.1); CO2 39 mmol/L (21-32); GLUCOSE,RANDOM 106 mg/dL (74-106); SGOT/AST 19 U/L (15-37); SGPT/ALT 14 U/L (12-78)
[2017-05-15 00:11] LABS: ALK PHOS 108 U/L (45-117)
--- NOTE | 2017-05-15 00:31 | PDOC ---
History of Present Illness - History of Present Illness Initial Comments: 05/15/17 00:37 The patient is a 82 year old female, with a significant past medical history of multiple abdominal sx (appy, dominique, hysterectomy, LOAs), asthma, atrial fibrillation, COPD, CHF, CAD, dementia, HTN, hypercholesterolemia, and hypothyroidism, and diabetes, who presents to the emergency department with pain , redness, and discoloration of the second to. She says that her pain has increased over the past two weeks. She describes her pain as constant, severe, and non-radiating. She indicates that no trauma preceded the onset of swelling. She denies recent fevers, chills, headache or dizziness. She denies recent nausea, vomit, diarrhea or constipation. She denies recent dysuria, frequency, urgency or hematuria. She denies recent chest pain or shortness of breath. Allergies: NKA Past surgical history: None reported. Social history: Nonsmoker. Denies EtOH use and recreational drug use. Primary Care Physician: Dr. Xavi Storey <Reyna Barros - Last Filed: 05/15/17 01:16> <Lucio Garg - Last Filed: 05/15/17 01:40> - General Chief Complaint: Wound Infection Stated Complaint: LEG WOUND Time Seen by Provider: 05/14/17 22:18 Past History <Reyna Barros - Last Filed: 05/15/17 01:16> - Past Medical History Anemia: No Asthma: Yes Cancer: No Cardiac Disorders: Yes (ATRIAL FIBRILLATION) CVA: No COPD: Yes CHF: Yes Dementia: Yes Diabetes: Yes GI Disorders: Yes (HIATAL HERNIA, OBSTRUCTION) Disorders: Yes (uti) HTN: Yes Hypercholesterolemia: Yes Liver Disease: No Suicide Attempt (Hx): No Seizures: No Thyroid Disease: Yes (HYPO) - Surgical History Abdominal Surgery: Yes (HERNIA REPAIR X 3) Appendectomy: Yes (RUPTURED) Cardiac Surgery: Yes (cardioversion x 2) Cholecystectomy: Yes Lung Surgery: No Neurologic Surgery: No Orthopedic Surgery: No - Immunization History Immunization Up to Date: Yes - Psycho/Social/Smoking Cessation Hx Anxiety: No Suicidal Ideation: No Smoking Status: No Smoking History: Former smoker Have you smoked in the past 12 months: No Number of Cigarettes Smoked Daily: 0 If you are a former smoker, when did you quit?: 2007 Cigars Per Day: 20 Information on smoking cessation initiated: No Hx Alcohol Use: No Drug/Substance Use Hx: No Substance Use Type: None Hx Substance Use Treatment: No <Lucio Garg - Last Filed: 05/15/17 01:40> - Past Medical History Allergies/Adverse Reactions: Allergies Allergy/AdvReac Type Severity Reaction Status Date / Time No Known Allergies Allergy Verified 05/14/17 19:51 Home Medications: Ambulatory Orders Albuterol Sulfate Inhaler - [Ventolin HFA Inhaler -] 2 inh IH Q6H PRN #0 inh 04/27 Allopurinol [Zyloprim -] 100 mg PO DAILY #0 tablet 06/22/13 Diltiazem Cd [Cardizem Cd -] 180 mg PO DAILY #0 cap.cd.24h 06/22/13 Montelukast Na [Singulair -] 10 mg PO HS #0 tablet 06/22/13 Acetaminophen [Tylenol .Regular Strength -] 650 mg PO Q6H PRN #240 tablet Tiotropium [place] [Spiriva] 1 inh PO DAILY #1 inhaler 06/23/13 Furosemide [Lasix -] 40 mg PO BID 03/02/14 Levothyroxine [Synthroid -] 50 mcg PO DAILY 03/02/14 Glimepiride [Amaryl] 2 mg PO BID 08/07/14 Digoxin [Lanoxin -] 1 tab PO DAILY #90 tablet 09/08/15 Lactobacillus Acidophilus [Bacid -] 1 tab PO DAILY #30 tab 09/08/15 Oxycodone HCl [Roxicodone -] 5 mg PO Q12H PRN #0 tablet 09/08/15 Sulfamethoxazole/Trimethoprim [Bactrim DS -] 1 each PO BID #20 tablet 09/08/15 Warfarin Na [Coumadin -] 4 mg PO DAILY@1800 tablet 02/20/16 Docusate Sodium [Colace -] 100 mg PO BID PRN #0 cap 04/29/17 Lisinopril [Prinivil] 5 mg PO DAILY #30 tablet 04/29/17 Polyethylene Glycol 3350 [Miralax 119 gm Btl -] 17 gm PO DAILY #1 bottle Potassium Chloride [K-Dur -] 20 meq PO TID tab 04/29/17 Review of Systems - Review of Systems Comments:: 05/15/17 00:38 CONSTITUTIONAL: No fever, no chills, no fatigue EYES: No visual changes ENT: No ear pain, no sore throat CARDIOVASCULAR: No chest pain, no palpitations RESPIRATORY: No cough, no SOB GI: No abdominal pain, no nausea, no vomiting, no constipation, no diarrhea GENITOURINARY: No dysuria, no frequency, no hematuria MUSCULOSKELETAL: No back pain, no joint pain, no myalgias SKIN: +bilateral lower extremity edema + right 2nd toe infection NEURO: No headache <Reyna Barros - Last Filed: 05/15/17 01:16> *Physical Exam - Vital Signs Last Vital Signs Temp Pulse Resp BP Pulse Ox 98.4 F 100 H 20 111/79 95 05/14/17 19:51 05/14/17 19:51 05/14/17 19:51 05/14/17 19:51 05/14/17 19:51 <Reyna Barros - Last Filed: 05/15/17 01:16> - Vital Signs Last Vital Signs Temp Pulse Resp BP Pulse Ox 98.4 F 100 H 20 111/79 95 05/14/17 19:51 05/14/17 19:51 05/14/17 19:51 05/14/17 19:51 05/14/17 19:51 - Physical Exam Comments: 05/15/17 01:21 EXAMINATION CONSTITUTIONAL: awake and alert; morbidly obese; in no apparent distress HEAD: Normocephalic; atraumatic EYES: PERRL; EOM intact ENMT: External appears normal; normal oropharynx NECK: Supple; non-tender; no cervical lymphadenopathy CARD: irregularly irregular; Normal S1, S2; no murmurs, rubs, or gallops RESP: Normal chest excursion with respiration; breath sounds clear and equal bilaterally; no wheezes, rhonchi, or rales ABD: Soft, non-distended; non-tender; no palpable organomegaly, no palpable hernias EXT: + b/l extensive venous stasis dermatitis with fusiform swelling of the r. second toe with erythema extending proximally. + ulceration to the tip of the 2nd toe wth purulent discharge with extnsive calus formation. also noted is a calus formed to the volar aspect of the 1st mtp of the right foot. distal pulses are decreased b/l. SKIN: Warm, dry, + extensive venous stasis dermatitis b/l NEURO: No focal neurological deficiencies. <Britany,Lucio - Last Filed: 05/15/17 01:40> Heart Score/ECG Review - ECG Intrepretation Comment:: 05/15/17 00:47 ECG Interpretation Vent rate 87 bpm Poor data quality, interpretation may be adverse;y affected Atrial fibrillation Right bundle branch block Abnormal ECG <FiorellaReyna - Last Filed: 05/15/17 01:16> ED Treatment Course - LABORATORY CBC & Chemistry Diagram: 05/14/17 23:25 05/14/17 23:25 - ADDITIONAL ORDERS Additional order review: Laboratory Results 05/14/17 05/14/17 23:25 23:25 INR 2.23 H Sodium 137 Potassium 2.9 L* D Chloride 90 L D Carbon Dioxide 39 H D Anion Gap 8 BUN 26 H Creatinine 1.0 Creat Clearance w eGFR 53.21 Random Glucose 106 Calcium 9.3 Total Bilirubin 0.7 AST 19 D ALT 14 Alkaline Phosphatase 108 C-Reactive Protein 8.4 H D Total Protein 7.0 Albumin 3.0 L 05/14/17 23:25 RBC 4.59 MCV 81.8 MCHC 31.5 L RDW 19.2 H MPV 7.4 L Neutrophils % 75.9 Lymphocytes % 12.1 D Monocytes % 7.6 Eosinophils % 3.4 Basophils % 1.0 <FiorellaReyna - Last Filed: 05/15/17 01:16> - LABORATORY CBC & Chemistry Diagram: 05/14/17 23:25 05/14/17 23:25 - ADDITIONAL ORDERS Additional order review: Laboratory Results 05/14/17 05/14/17 23:25 23:25 INR 2.23 H Sodium 137 Potassium 2.9 L* D Chloride 90 L D Carbon Dioxide 39 H D Anion Gap 8 BUN 26 H Creatinine 1.0 Creat Clearance w eGFR 53.21 Random Glucose 106 Calcium 9.3 Total Bilirubin 0.7 AST 19 D ALT 14 Alkaline Phosphatase 108 C-Reactive Protein 8.4 H D Total Protein 7.0 Albumin 3.0 L 05/14/17 23:25 RBC 4.59 MCV 81.8 MCHC 31.5 L RDW 19.2 H MPV 7.4 L Neutrophils % 75.9 Lymphocytes % 12.1 D Monocytes % 7.6 Eosinophils % 3.4 Basophils % 1.0 - RADIOLOGY Radiology Studies Ordered: Category Date Time Status CHEST - PA [RAD] Stat Radiology 05/15/17 00:11 Ordered FOOT-RIGHT [RAD] Stat Radiology 05/15/17 00:11 Ordered <Lucio Garg - Last Filed: 05/15/17 01:40> Medical Decision Making - Medical Decision Making 05/15/17 01:38 Patient is an 82-year-old female with multiple comorbidities who presents to the ER with signs and symptoms of soft tissue infection of the right second toe. I suspect underlying osteomyelitis. Blood cultures been obtained. CBC reveals minimal leukocytosis. Inflammatory markers increased. We'll administer vancomycin and Zosyn for suspected polymicrobial infection. Will admit. <Lucio Garg - Last Filed: 05/15/17 01:40> *DC/Admit/Observation/Transfer - Attestations Scribe Attestion: 05/15/17 00:36 Documentation prepared by Reyna Barros, acting as chief medical technologist for Lucio Garg MD. <Reyna Barros - Last Filed: 05/15/17 01:16> - Discharge Dispostion Admit: Yes - Attestations Physician Attestion: 05/15/17 01:21 The documentation was prepared by the scribe under my direct supervision. I have reviewed the documentation which correctly represents the findings, medical decision-making and critical action taken by me. <Lucio Garg - Last Filed: 05/15/17 01:40> Diagnosis at time of Disposition: Hypokalemia Cellulitis Qualifiers: Site of cellulitis: extremity Site of cellulitis of extremity: toe Laterality: right Qualified Code(s): L03.031 - Cellulitis of right toe Atrial fibrillation Qualifiers: Atrial fibrillation type: chronic Qualified Code(s): I48.2 - Chronic atrial fibrillation - Referrals Referrals: Xavi Storey MD [Primary Care Provider] -
[2017-05-15] MEDS ORDERED: POTASSIUM CHLORIDE TABS 20 MEQ TABLET.ER (FP) PO ONE ×2 (00:34→00:39)
[2017-05-15] MEDS ORDERED: PIPERACILLIN/TAZOB 4.5 GM/100 ML PRE-DOCKED IVPB ONE (00:36)
[2017-05-15] MEDS ORDERED: PIPERACILLIN/TAZOB 4.5 GM 100 ML IVPB ONE (00:46)
[2017-05-15] MEDS ORDERED: MAGNESIUM SULF 50% (8.12 MEQ/2 ML-1 GM VIAL) IVPB ONE (01:20)
[2017-05-15 01:38] LABS: ERYTHROCYTE SEDIMENTATION RATE 84 mm/hr (0-30)
[2017-05-15] MEDS ORDERED: MAGNESIUM SULF 50% (8.12 MEQ/2 ML-1 GM VIAL) ONE (01:42)
[2017-05-15] MEDS ORDERED: SODIUM CHLORIDE 500 ML IV SCH (04:00)
--- NOTE | 2017-05-15 05:21 | HP ---
CHIEF COMPLAINT: Right 2nd toe pain PCP: Dr. Xavi Storey HISTORY OF PRESENT ILLNESS: 82 year old F with pmh of multiple abdominal sx (appy, dominique, hysterectomy, LOAs ), asthma, atrial fibrillation, COPD, CHF, CAD, dementia, HTN, hypercholesterolemia, and hypothyroidism, and diabetes, who presents to the emergency department with pain, redness, and discoloration of the second toe. Patient states that she has chronic wounds and has a visting nurse service to help her with wound care. Her visiting nurse told her 2 days prior that she has an infected right 2nd toe and should go to the hospital. Patient states her pain worsened over the past 2 days, which prompted her to come to the ED. Pain is severe, constant, 10/10 at its worst, and nonradiating. She states she had no trauma to the site. She endorses some chills and SOB. Patient denies fevers, N/v/d/c, chest pain Patient was evaluated for fracture of right 2nd toe on her last admission (04/24) . No evidence of fx at that time and no evidence of osteomyelitis ER course was notable for: (1) Pulse-100, wbc-11.5, k+ 2.9, mg-1.7, bun 26, cr 1.0, crp 8.4 (2) Foot/chest xray pending (3) Recent Travel: denies PAST MEDICAL HISTORY: asthma, atrial fibrillation, COPD, CHF, CAD, dementia, HTN , hypercholesterolemia, and hypothyroidism, PAST SURGICAL HISTORY: Hernia repair x3, appendectomy, cholecystectomy Social History: Smoking: Former smoker quit 2007 Alcohol: no Drugs: no Family History: Allergies No Known Allergies Allergy (Verified 05/14/17 19:51) HOME MEDICATIONS: Home Medications Medication Instructions Recorded Albuterol Sulfate Inhaler - 2 inh IH Q6H PRN #0 inh 06/22/13 [Ventolin HFA Inhaler -] Allopurinol [Zyloprim -] 100 mg PO DAILY #0 tablet 06/22/13 Diltiazem Cd [Cardizem Cd -] 180 mg PO DAILY #0 cap.cd.24h 06/22/13 Montelukast Na [Singulair -] 10 mg PO HS #0 tablet 06/22/13 Acetaminophen [Tylenol .Regular 650 mg PO Q6H PRN #240 tablet 06/23/13 Strength -] Tiotropium [place] [Spiriva] 1 inh PO DAILY #1 inhaler 06/23/13 Furosemide [Lasix -] 40 mg PO BID 03/02/14 Levothyroxine [Synthroid -] 50 mcg PO DAILY 03/02/14 Glimepiride [Amaryl] 2 mg PO BID 08/07/14 Digoxin [Lanoxin -] 1 tab PO DAILY #90 tablet 09/08/15 Oxycodone HCl [Roxicodone -] 5 mg PO Q12H PRN #0 tablet 09/08/15 Warfarin Na [Coumadin -] 4 mg PO DAILY@1800 tablet 02/20/16 Docusate Sodium [Colace -] 100 mg PO BID PRN #0 cap 04/29/17 Polyethylene Glycol 3350 [Miralax 17 gm PO DAILY #1 bottle 04/29/17 119 gm Btl -] Potassium Chloride [K-Dur -] 20 meq PO TID tab 04/29/17 REVIEW OF SYSTEMS CONSTITUTIONAL: Absent: fever, chills, diaphoresis, generalized weakness, malaise, loss of appetite, weight change HEENT: Absent: rhinorrhea, nasal congestion, throat pain, throat swelling, difficulty swallowing, mouth swelling, ear pain, eye pain, visual changes CARDIOVASCULAR: Absent: chest pain, syncope, palpitations, irregular heart rate, lightheadedness , peripheral edema RESPIRATORY: Absent: cough, shortness of breath, dyspnea with exertion, orthopnea, wheezing, stridor, hemoptysis GASTROINTESTINAL: Absent: abdominal pain, abdominal distension, nausea, vomiting, diarrhea, constipation, melena, hematochezia GENITOURINARY: Absent: dysuria, frequency, urgency, hesitancy, hematuria, flank pain, genital pain MUSCULOSKELETAL: Absent: myalgia, arthralgia, joint swelling, back pain, neck pain SKIN: Absent: rash, itching, pallor HEMATOLOGIC/IMMUNOLOGIC: Absent: easy bleeding, easy bruising, lymphadenopathy, frequent infections ENDOCRINE: Absent: unexplained weight gain, unexplained weight loss, heat intolerance, cold intolerance NEUROLOGIC: Absent: headache, focal weakness or paresthesias, dizziness, unsteady gait, seizure, mental status changes, bladder or bowel incontinence PSYCHIATRIC: Absent: anxiety, depression, suicidal or homicidal ideation, hallucinations. PHYSICAL EXAMINATION GENERAL: Awake, alert, and fully oriented, in no acute distress. HEAD: Normal with no signs of trauma. EYES: Pupils equal, round and reactive to light, extraocular movements intact, sclera anicteric, conjunctiva clear. No lid lag. EARS, NOSE, THROAT: Oropharynx clear without exudates. Moist mucous membranes. NECK: Normal range of motion, supple without lymphadenopathy, JVD, or masses. LUNGS: Breath sounds equal, clear to auscultation bilaterally. No wheezes, and no crackles. No accessory muscle use. HEART: Irregularly irregular, normal S1 and S2 without murmur, rub or gallop. ABDOMEN: Soft, nontender, not distended, normoactive bowel sounds, no guarding, no rebound, no masses. No hepatomegaly or splenomegaly. + OBESE with pannus. HYPERKERATOTIC COBBLESTONE APPEARANCE WITH ERYTHEMA IN PANNUS MUSCULOSKELETAL: Normal range of motion at all joints. No bony deformities or tenderness. No CVA tenderness. UPPER EXTREMITIES: 2+ pulses, warm, well-perfused. No cyanosis. No clubbing. No peripheral edema. LOWER EXTREMITIES: 2+ pulses, warm, well-perfused. No calf tenderness. + venous stasis changes with multiple wounds. Edema of right 2nd toe with mild erythema, NEUROLOGICAL: Cranial nerves II-XII intact. Normal speech. Normal gait. PSYCHIATRIC: Cooperative. Good eye contact. Appropriate mood and affect. SKIN: Warm, dry, normal turgor, no rashes or lesions noted, normal capillary refill. ASSESSMENT/PLAN: 82 year old F with multiple medical comorbidities presenting with pain at right second toe admitted for sepsis 2/2 to right 2nd toe cellulitis vs osteomyelitis #Sepsis 2/2 to right 2nd toe cellulitis vs osteomyelitis -Foot xray pending -MRI of right 2nd toe pending -1 dose of vanc/zosyn in the ED -IVF @ 83 cc/hr --gentle hydration -ID consulted, Dr. Rivreo -Vascular consult, Dr. Dugan -Blood culture pending -Contact isolation for hx of MRSA -- sensitive to vancomycin -Uric acid pending to evaluate for gout #DM -BGM achs -ISS achs #Atrial Fibrillation -Continue cardizem 180 mg po daily -Continue coumadin 4 mg po daily #CHF -Continue digoxin 0.125 mg dailiy -Continue Lasix 40 mg po bid #Asthma/COPD -Continue sinulair 10 mg po hs -Continue aclidinium -Continue singulair #Electrolyte abnormality (hypokalemia, hypomagnesemia) -Repleted -Continue to monitor #Hx of gout -Continue allopurinol 100 mg po daily #FEN/GI -IVF @ 83 cc/hr -repleted -Diabetic/sodium diet #PPx -DT- Heparin 5000 units sq tid Visit type - Emergency Visit Emergency Visit: Yes ED Registration Date: 05/15/17 Care time: The patient presented to the Emergency Department on the above date and was hospitalized for further evaluation of their emergent condition. - New Patient This patient is new to me today: Yes Date on this admission: 05/18/17 - Critical Care Critical Care patient: No
[2017-05-15] MEDS ORDERED: ALBUTEROL SO4 6.7 GM HFA INHALER IH PRN (06:04)
--- NOTE | 2017-05-15 06:11 | PN ---
Teaching Attending Note Name of Resident: Stiven June ATTENDING PHYSICIAN STATEMENT I saw and evaluated the patient. I reviewed the resident's note and discussed the case with the resident. I agree with the resident's findings and plan as documented. SUBJECTIVE: 82 y/o female presented c/o right 2nd toe pain OBJECTIVE: GEN: Malodorous A&Ox3, obese HEENT: CVS: LUNGS: ABD: EXT: R 2nd toe erythema, CBCD WBC 11.5 K/mm3 (4.0-10.0) H 05/14/17 23:25 RBC 4.59 M/mm3 (3.60-5.2) 05/14/17 23:25 Hgb 11.8 GM/dL (10.7-15.3) 05/14/17 23:25 Hct 37.6 % (32.4-45.2) 05/14/17 23:25 MCV 81.8 fl (80-96) 05/14/17 23:25 MCHC 31.5 g/dl (32.0-36.0) L 05/14/17 23:25 RDW 19.2 % (11.6-15.6) H 05/14/17 23:25 Plt Count 355 K/MM3 (134-434) D 05/14/17 23:25 MPV 7.4 fl (7.5-11.1) L 05/14/17 23:25 CMP Sodium 137 mmol/L (136-145) 05/14/17 23:25 Potassium 2.9 mmol/L (3.5-5.1) L* D 05/14/17 23:25 Chloride 90 mmol/L (98-107) L D 05/14/17 23:25 Carbon Dioxide 39 mmol/L (21-32) H D 05/14/17 23:25 Anion Gap 8 (8-16) 05/14/17 23:25 BUN 26 mg/dL (7-18) H 05/14/17 23:25 Creatinine 1.0 mg/dL (0.55-1.02) 05/14/17 23:25 Creat Clearance w eGFR 53.21 (>60) 05/14/17 23:25 Calcium 9.3 mg/dL (8.5-10.1) 05/14/17 23:25 Total Bilirubin 0.7 mg/dL (0.2-1.0) 05/14/17 23:25 AST 19 U/L (15-37) D 05/14/17 23:25 ALT 14 U/L (12-78) 05/14/17 23:25 Alkaline Phosphatase 108 U/L (45-117) 05/14/17 23:25 Total Protein 7.0 g/dl (6.4-8.2) 05/14/17 23:25 Albumin 3.0 g/dl (3.4-5.0) L 05/14/17 23:25 ASSESSMENT AND PLAN: Right 2nd toe cellulitis- Vanc and zosyn Contact isolation for h/o MRSA ID and vascular consult. DM2 RISS
[2017-05-15] MEDS ORDERED: FUROSEMIDE 40 MG TABLET (FP) ONE (06:26)
[2017-05-15] MEDS ORDERED: HEPARIN NA (PORCINE) 5,000 UNITS/ML 1ML VIAL ONE (06:26)
[2017-05-15] MEDS: HEPARIN NA (PORCINE) 5,000 UNITS/ML 1ML VIAL SQ SCH ×2 (06:31→14:03)
[2017-05-15] MEDS: FUROSEMIDE 40 MG TABLET (FP) PO SCH ×2 (06:35→14:03)
[2017-05-15 07:00] LABS: BASOPHIL 0.9 % (0-2.0); MCH 25.9 pg (25.7-33.7); MCHC 31.6 g/dl (32.0-36.0); MEAN CELL VOLUME 81.9 fl (80-96); MEAN PLT VOLUME 7.8 fl (7.5-11.1); NEUTROPHILS 74.7 % (42.8-82.8); PLATELET COUNT 323 K/MM3 (134-434); RDW 19.1 % (11.6-15.6); WHITE BLOOD COUNT 10.6 K/mm3 (4.0-10.0)
[2017-05-15 07:01] LABS: ALK PHOS 102 U/L (45-117); ANION GAP 7 (8-16); BILIRUBIN,TOTAL 0.8 mg/dL (0.2-1.0); CALCIUM 9.2 mg/dL (8.5-10.1); CO2 38 mmol/L (21-32); GLUCOSE,RANDOM 140 mg/dL (74-106); MAGNESIUM 2.2 mg/dL (1.8-2.4); PHOSPHOROUS 2.4 mg/dL (2.5-4.9); SGOT/AST 18 U/L (15-37); SGPT/ALT 14 U/L (12-78); TOT PROT 6.8 g/dl (6.4-8.2)
[2017-05-15] MEDS: INSULIN SLIDING SCALE (NOVOLOG) 1 VIAL SQ SCH ×4 (07:15→21:48)
[2017-05-15] MEDS ORDERED: PIPERACILLIN/TAZOB 3.375 GM/50 ML PRE-DOCKED IVPB ONE (08:00)
[2017-05-15] MEDS ORDERED: LEVOTHYROXINE NA 25 MCG TABLET (FP) ONE (08:17)
[2017-05-15] MEDS: LEVOTHYROXINE NA 50 MCG TABLET (FP) PO SCH (08:23)
--- NOTE | 2017-05-15 09:05 | PN ---
Progress Note (short form) - Note Progress Note: patient to be seen today.
[2017-05-15] MEDS ORDERED: PIPERACILLIN/TAZOB 3.375 GM 50 ML IVPB ONE (09:46)
[2017-05-15] MEDS ORDERED: VANCOMYCIN 2,000 MG in DEXTROSE 5%-WATER - 500 ML IVPB SCH (10:00)
[2017-05-15] MEDS: ALLOPURINOL 100 MG TABLET (FP) PO SCH (10:52)
[2017-05-15] MEDS: DIGOXIN 0.125 MG TABLET (FP) PO SCH (10:52)
--- NOTE | 2017-05-15 11:12 | EKG ---
Test Reason : Blood Pressure : / mmHG Vent. Rate : 087 BPM Atrial Rate : 096 BPM P-R Int : 000 ms QRS Dur : 142 ms QT Int : 404 ms P-R-T Axes : 000 094 031 degrees QTc Int : 486 ms POOR DATA QUALITY, INTERPRETATION MAY BE ADVERSELY AFFECTED ATRIAL FIBRILLATION RIGHT BUNDLE BRANCH BLOCK ABNORMAL ECG WHEN COMPARED WITH ECG OF 24-APR-2017 18:17, NONSPECIFIC T WAVE ABNORMALITY HAS REPLACED INVERTED T WAVES IN INFERIOR LEADS Confirmed by CAROL DIAZ MD ([id number]) on 05/15/2017 11:11:46 AM Referred By: Confirmed By:CAROL DIAZ MD
[2017-05-15] MEDS ORDERED: INSULIN (NOVOLOG) ASPART 100 UNITS/ML 10ML VIAL ONE ×3 (12:32→17:15)
[2017-05-15] MEDS: POLYETHYLENE GLYCOL 3350 119 GM BTL PO SCH (13:35)
[2017-05-15] MEDS: ACLIDINIUM BROMIDE 400 MCG/INH AERO.POWD IH SCH ×2 (13:36→22:29)
--- NOTE | 2017-05-15 14:33 | PN ---
Progress Note (short form) - Note Progress Note: ID consult dictated imp/reccd 82 year old female admitted from home she is morbidly obese with an abdominal pannus and bilateral venous stasis she was seen at [facility] last Friday by- vascular surgery and had a UNNA boot placed on her right lower leg and foot on Friday the Visiting nurse removed the Unna boot and the toe was swollen the swelling increased over the week, she had chills at home as well the toe is now diffusely swollen soft tissue infection of her second toe r/o osteomyelitis of the right second toe awaiting surgery evaluation cultures vanco/zosyn esr/crp venous stasis morbid obesity Problem List - Problems (1) Cellulitis Code(s): L03.90 - CELLULITIS, UNSPECIFIED Qualifiers: Site of cellulitis: extremity Site of cellulitis of extremity: toe Laterality: right Qualified Code(s): L03.031 - Cellulitis of right toe (2) Osteomyelitis Code(s): M86.9 - OSTEOMYELITIS, UNSPECIFIED (3) Chronic venous stasis dermatitis of both lower extremities Code(s): I87.2 - VENOUS INSUFFICIENCY (CHRONIC) (PERIPHERAL) (4) Morbid obesity Code(s): E66.01 - MORBID (SEVERE) OBESITY DUE TO EXCESS CALORIES
[2017-05-15] MEDS: POTASSIUM CHLORIDE TABS 20 MEQ TABLET.ER (FP) PO SCH ×2 (14:49→21:46)
--- NOTE | 2017-05-15 15:15 | CONS ---
DATE OF CONSULTATION: 05/15/2017 REQUESTING PHYSICIAN: Xavi Storey MD HISTORY OF PRESENT ILLNESS: This is an 82-year-old woman, who has morbid obesity. She has bilateral venous stasis and an abdominal pannus. She was last in the hospital in early April, when she had some diarrhea at home that self-resolved. She is now admitted with a diffusely swollen second toe of her right foot, which she describes as painful. She also notes chills at home. The patient reports that she was seen by vascular surgery last week at [facility] for her venous stasis of her legs. An Unna boot was placed on her right foot. It was removed on Friday by the visiting nurse and noted that the second toe was diffusely swollen. The swelling persisted and worsened with pain throughout the week, and she presented to the ER. She is not aware if she has had any drainage from the toe. PAST MEDICAL HISTORY: Significant for atrial fibrillation, congestive heart failure, DVT, hypertension, hyperlipidemia, COPD, hiatal hernia, osteoarthritis, diabetes, hypothyroidism. She has had venous stasis ulcers of her legs in the past. She is morbidly obese. SURGICAL HISTORY: Notable for appendectomy, cholecystectomy, hernia repair x3, oophorectomy, and tonsillectomy. ALLERGIES: She has no known drug allergies. MEDICATIONS: At home include albuterol inhaler, allopurinol, diltiazem, Singulair, Spiriva, Lasix, Synthroid, Amaryl, digoxin, Roxicodone, Coumadin, Colace, MiraLAX, and potassium. SOCIAL HISTORY: She is a former smoker; she quit in 2007. There is no history of any alcohol or substance use. She has visiting nurse services. Otherwise, she lives alone. She ambulates with a walker. She has a niece who is involved in her health care. FAMILY HISTORY: Notable for heart disease and alcoholic cirrhosis. REVIEW OF SYSTEMS: As per HPI. She has had no fever. She has noted chills. She has had no nausea, vomiting, diarrhea, or dysuria. No abdominal or chest pain. She notes pain in her right foot. PHYSICAL EXAMINATION Vital signs: Her temperature is 98.4, pulse of 94, blood pressure 123/60, respiratory rate 90. She weighs 300 pounds. HEENT: She is normocephalic. Her eyes are anicteric. Neck: Supple. Lungs: Clear to auscultation. Heart: She has distant heart sounds. Abdomen: Soft. She has a large pannus. Extremities: Notable for bilateral venous stasis, and on the right foot, the second toe is diffusely sausage-shaped and swollen, is discolored. DIAGNOSTIC DATA: Her labs are notable for a white count of 10.6, hemoglobin 11.9, platelets are 323. INR 2.2. BUN 25, creatinine 1. LFTs are normal. Her MRSA screen is positive. X-ray of the foot is notable for diffuse swelling of the second toe. There is a metallic foreign body in the inferior aspect of the calcaneus. She had degenerative changes and old trauma. Chest x-ray has no acute infiltrate. SUMMARY: 1. This is an 82-year-old woman with soft tissue infection of her second toe. Rule out osteomyelitis. Awaiting vascular evaluation. Awaiting surgery evaluation. Would follow up cultures. Would treat her with vancomycin and Zosyn and check her sedimentation rate and a CRP. Based on surgery evaluation, we can decide if any imaging would be appropriate. 2. Venous stasis. 3. Morbid obesity. DESIREE MICHEL M.D. [id number]
[2017-05-15 15:26] VITALS: BMI 50.5
[2017-05-15 15:29] LABS: INR 1.92 (0.82-1.09); PROTHROMBIN TIME (PATIENT) 21.4 SEC (9.98-11.88)
--- NOTE | 2017-05-15 17:46 | PN ---
Progress Note (short form) - Note Progress Note: Patient seen in the emergency room this morning. Was advised to go to the emergency room on Friday when the visiting nurse called me and told me that her second toe on the right foot looked swollen and warm and had an odor. Patient had been going to Dr. Yañez to help manage her chronic stasis edema of her lower extremities especially the right side. She had improved in the last few months when an Unna boot was placed and the current recommendations was a weekly placement by the visiting nurse. The patient feels that her toe became swollen because the Unna boot that was placed was too tight. I do not think that had any relationship to the development of infection that she has now. However, we will get the vascular wound care physician to evaluate. The infectious disease financial management consultant has already visited and the patient is now on antibiotics. Long history of atrial fibrillation on Coumadin, past history of CHF, diabetes mellitus type 2, morbid obesity, pannus, stasis ulcers of legs,osteoarthritis of the knees, chronic pain and asthmatic bronchitis. on exam: Vital Signs Temp 98.7 F 05/15/17 15:24 Pulse 77 05/15/17 15:24 Resp 20 05/15/17 15:24 BP 116/67 05/15/17 15:24 Pulse Ox 94 L 05/15/17 15:00 Intake & Output 05/14/17 05/15/17 05/15/17 23:59 11:59 23:59 Intake Total 660 Balance 660 Weight 300 lb 312 lb 12.8 oz Intake: IVPB 300 Oral 360 Other: Voiding Method Bedside Commode Bedside Commode Toilet Height 5 ft 6 in 5 ft 6 in Body Mass Index (BMI) 48.4 50.5 Weight Measurement Method Standing Scale patient is alert Chest: no wheezes noted. Heart irregular Abdominal exam shows large pannus. Extremities: right foot swollen, erythematous second toe with a collection of pus noted medially. Chronic stasis changes both legs, worse on the right Abnormal Lab Results 05/14/17 05/14/17 05/14/17 23:25 23:25 23:25 WBC 11.5 H MCHC 31.5 L RDW 19.2 H MPV 7.4 L ESR 84 H INR 2.23 H Potassium 2.9 L* D Chloride 90 L D Carbon Dioxide 39 H D Anion Gap BUN 26 H Random Glucose Phosphorus Magnesium C-Reactive Protein 8.4 H D Albumin 3.0 L 05/15/17 05/15/17 05/15/17 00:34 06:15 06:15 WBC 10.6 H MCHC 31.6 L RDW 19.1 H MPV ESR INR Potassium 3.3 L Chloride 92 L Carbon Dioxide 38 H Anion Gap 7 L BUN 25 H Random Glucose 140 H D Phosphorus 2.4 L Magnesium 1.7 L C-Reactive Protein Albumin 3.0 L 05/15/17 14:50 WBC MCHC RDW MPV ESR INR 1.92 H Potassium Chloride Carbon Dioxide Anion Gap BUN Random Glucose Phosphorus Magnesium C-Reactive Protein Albumin impression: Abscess and cellulitis second toe right foot. Chronic stasis ulcers both lower extremities. Atrial fibrillation on Coumadin. Diabetes mellitus type 2 with recent stable hemoglobin A1c Morbid obesity Abdominal pannus. History of asthmatic bronchitis Osteoarthritis of the knees. Plan: GARIMA Abreu to follow. Consult for vascularwound care physician ASPEN. Followup lab Continue IV antibiotics Potassium and magnesium replacement has been given
[2017-05-15] MEDS ORDERED: DEXTROSE 5%-WATER 100 ML IVPB ONE (17:55)
[2017-05-15] MEDS ORDERED: PIPERACILLIN/TAZOBACTAM 4.5 GM VIAL IVPB ONE (17:55)
[2017-05-15] MEDS ORDERED: WARFARIN NA 2 MG TABLET (UD) PO SCH (18:00)
[2017-05-15] MEDS ORDERED: PIPERACILLIN/TAZOB 4.5 GM/100 ML PRE-DOCKED IVPB SCH (18:00)
[2017-05-15] MEDS: PIPERACILLIN/TAZOB 4.5 GM 4.5 GM in DEXTROSE 5%-WATER 100 ML IVPB SCH (18:30)
[2017-05-15] MEDS ORDERED: PT OWN MED DRAWER 7, Y5N ONE (21:32)
[2017-05-15] MEDS: MONTELUKAST NA 10 MG TABLET PO SCH (21:46)
[2017-05-16] MEDS ORDERED: PIPERACILLIN/TAZOBACTAM 4.5 GM VIAL IVPB ONE ×3 (01:12→17:16)
[2017-05-16] MEDS ORDERED: DEXTROSE 5%-WATER 100 ML IVPB ONE ×3 (01:12→17:16)
[2017-05-16] MEDS: PIPERACILLIN/TAZOB 4.5 GM 4.5 GM in DEXTROSE 5%-WATER 100 ML IVPB SCH ×3 (01:24→18:43)
[2017-05-16] MEDS: ACETAMINOPHEN 325 MG TABLET (FP) PO PRN (02:17)
[2017-05-16 04:30] LABS: URIC ACID 8.8 mg/dL (2.6-7.2)
[2017-05-16] MEDS ORDERED: PT OWN MED DRAWER 7, Y5N ONE ×4 (06:34→21:42)
[2017-05-16] MEDS: INSULIN SLIDING SCALE (NOVOLOG) 1 VIAL SQ SCH ×4 (06:36→21:39)
[2017-05-16] MEDS: FUROSEMIDE 40 MG TABLET (FP) PO SCH (06:36)
[2017-05-16] MEDS: LEVOTHYROXINE NA 50 MCG TABLET (FP) PO SCH (06:37)
[2017-05-16] MEDS: POTASSIUM CHLORIDE TABS 20 MEQ TABLET.ER (FP) PO SCH ×4 (06:37→21:42)
[2017-05-16] MEDS: GLIMEPIRIDE 2 MG TABLET (FP) PO SCH ×2 (06:37→18:42)
[2017-05-16 07:18] LABS: MCH 25.5 pg (25.7-33.7); MCHC 31.1 g/dl (32.0-36.0); MEAN CELL VOLUME 82.1 fl (80-96); PLATELET COUNT 314 K/MM3 (134-434); RDW 18.9 % (11.6-15.6); WHITE BLOOD COUNT 10.2 K/mm3 (4.0-10.0)
[2017-05-16 07:36] LABS: INR 1.7 (0.82-1.09); PROTHROMBIN TIME (PATIENT) 18.9 SEC (9.98-11.88)
[2017-05-16 07:41] LABS: ANION GAP 8 (8-16); C-REACTIVE PROTEIN 6.5 MG/DL (0.00-0.3); CALCIUM 8.8 mg/dL (8.5-10.1); CO2 36 mmol/L (21-32); CREATININE 1.1 mg/dL (0.55-1.02); GLUCOSE,RANDOM 159 mg/dL (74-106)
[2017-05-16 07:52] LABS: THYROID STIMULATING HORMONE 1.91 uIU/ml (0.358-3.74)
[2017-05-16 07:53] LABS: DIGOXIN LEVEL 0.5952 ng/ml (0.8-2.0)
--- NOTE | 2017-05-16 08:39 | CONSULT ---
Consult - Past Medical History Cardio/Vascular: Yes: AFIB, CHF, Deep Vein Thrombosis, HTN, Hyperlipdemia Pulmonary: Yes: Asthma, COPD Gastrointestinal: Yes: Hiatal Hernia, Other ...LMP Comment: menopause ...: No Musculoskeletal: Yes: Osteoarthritis Endocrine: Yes: Diabetes Mellitus, Hypothyroidism Dermatology: Yes: Cellulitis, Eczema - Past Surgical History Past Surgical History: Yes: Appendectomy, Cholecystectomy, Hernia Repair (times three), Oopherectomy, Tonsillectomy - Alcohol/Substance Use Hx Alcohol Use: No - Smoking History Smoking history: Former smoker Have you smoked in the past 12 months: No Aproximately how many cigarettes per day: 0 If you are a former smoker, when did you quit?: 2007 - Social History Usual Living Arrangement: Alone ADL: Independent History of Recent Travel: No Home Medications - Allergies Allergies/Adverse Reactions: Allergies Allergy/AdvReac Type Severity Reaction Status Date / Time No Known Allergies Allergy Verified 05/14/17 19:51 - Home Medications Home Medications: Ambulatory Orders Albuterol Sulfate Inhaler - [Ventolin HFA Inhaler -] 2 inh IH Q6H PRN #0 inh 04/27 Allopurinol [Zyloprim -] 100 mg PO DAILY #0 tablet 06/22/13 Diltiazem Cd [Cardizem Cd -] 180 mg PO DAILY #0 cap.cd.24h 06/22/13 Montelukast Na [Singulair -] 10 mg PO HS #0 tablet 06/22/13 Acetaminophen [Tylenol .Regular Strength -] 650 mg PO Q6H PRN #240 tablet Tiotropium [place] [Spiriva] 1 inh PO DAILY #1 inhaler 06/23/13 Furosemide [Lasix -] 40 mg PO BID 03/02/14 Levothyroxine [Synthroid -] 50 mcg PO DAILY 03/02/14 Glimepiride [Amaryl] 2 mg PO BID 08/07/14 Digoxin [Lanoxin -] 1 tab PO DAILY #90 tablet 09/08/15 Oxycodone HCl [Roxicodone -] 5 mg PO Q12H PRN #0 tablet 09/08/15 Warfarin Na [Coumadin -] 4 mg PO DAILY@1800 tablet 02/20/16 Docusate Sodium [Colace -] 100 mg PO BID PRN #0 cap 04/29/17 Polyethylene Glycol 3350 [Miralax 119 gm Btl -] 17 gm PO DAILY #1 bottle Potassium Chloride [K-Dur -] 20 meq PO TID tab 04/29/17 Family Disease History - Family Disease History Family Disease History: Heart Disease: Mother ([place]), Other: Father (ETOH cirrhosis), Sister (alive and well) Physical Exam Vital Signs: Vital Signs Temperature 98.7 F 05/16/17 06:00 Pulse Rate 79 05/16/17 06:00 Respiratory Rate 22 05/16/17 06:00 Blood Pressure 114/48 05/16/17 06:00 O2 Sat by Pulse Oximetry (%) 93 L 05/15/17 21:00 Labs: CBC, BMP 05/16/17 07:00 05/16/17 07:00 Assessment/Plan VAscular Surgery he patient is a 82 year old female, with a significant past medical history of multiple abdominal sx (appy, dominique, hysterectomy, LOAs), asthma, atrial fibrillation, COPD, CHF, CAD, dementia, HTN, hypercholesterolemia, and hypothyroidism, and diabetes, who presents to the emergency department with pain , redness, and discoloration of the second to. She says that her pain has increased over the past two weeks. She describes her pain as constant, severe, and non-radiating. She indicates that no trauma preceded the onset of swelling. She denies recent fevers, chills, headache or dizziness. She denies recent nausea, vomit, diarrhea or constipation. She denies recent dysuria, frequency, urgency or hematuria. She denies recent chest pain or shortness of breath. Allergies: NKA Past surgical history: None reported. Social history: Nonsmoker. Denies EtOH use and recreational drug use. Primary Care Physician: Dr. Xavi Storey PE Head - NC/AT Lung - CTA Heart - RRR abd - soft,nt,nd ext - right second toe swelling. No pus could be expressed. Wound at tip of toe. Palpable DP and PT pulses. Right leg with venous stasis changes. A/P R/O osteo of right second toe. Clinically it looks like osteo. Not sure if pt will do MRI -- expressed to me she cannot do closed MRI's. ID eval Podiatry eval -- Dr. Ayoub -- for possible toe amputation if needed. Pt might need a trial of mcc antibiotics with picc line. Pt is a candidate for Hyperbaric O2 therapy as well Tee Dugan DO
--- NOTE | 2017-05-16 10:24 | PN ---
Progress Note (short form) - Note Progress Note: patient sitting up at the bedside chair when seen this morning. Had been visited by Dr. Mat Dugan told the patient ultimately amputation of the toe may be required. She continues on IV antibiotics. White count is still stable; potassium slightly low and I will increase her potassium chloride 20 mEq 2 4 times a day. We will repeat lab in the morning. As suggested by radiology. I will order a triphasic bone scan to rule out osteomyelitis. . She cannot tolerate a closed MRI. Not complaining of shortness of breath. No chest pain. Has pain and admits to the foul odor from the toe on her right foot. Some frequency of urination. Good appetite. On exam: Vital Signs Temp 98 F 05/16/17 17:40 Pulse 85 05/16/17 17:40 Resp 18 05/16/17 17:40 BP 125/68 05/16/17 17:40 Pulse Ox 93 L 05/16/17 10:30 Intake & Output 05/15/17 05/16/17 05/16/17 23:59 11:59 23:59 Intake Total 1060 350 600 Balance 1060 350 600 Weight 312 lb 12.8 oz Intake: IVPB 300 100 600 Oral 760 250 Other: Voiding Method Toilet Toilet # Unmeasured Voids Void 3 3 Bowel Movement No No Height 5 ft 6 in Body Mass Index (BMI) 50.5 Weight Measurement Method Standing Scale Alert Chest decreased breath sounds but no wheezes. Heart irregular. Abdomen pannus noted. Extremities 1+ edema bilaterally. Chronic stasis changes both legs. Swollen, erythematous, tender second toe right foot with foul odor. lab: Abnormal Lab Results 05/15/17 05/16/17 05/16/17 06:15 07:00 07:00 WBC 10.2 H MCH 25.5 L MCHC 31.1 L RDW 18.9 H Eosinophils % 6.0 H ESR 95 H INR Potassium 3.3 L 3.2 L Chloride 92 L 94 L Carbon Dioxide 38 H 36 H Anion Gap 7 L BUN 25 H 28 H Creatinine 1.1 H Random Glucose 140 H D 159 H Uric Acid 8.8 H Phosphorus 2.4 L C-Reactive Protein 6.5 H D Albumin 3.0 L Digoxin 0.5952 L 05/16/17 07:00 WBC MCH MCHC RDW Eosinophils % ESR INR 1.70 H Potassium Chloride Carbon Dioxide Anion Gap BUN Creatinine Random Glucose Uric Acid Phosphorus C-Reactive Protein Albumin Digoxin impression: Cellulitis with infection second toe right foot. Rule out osteomyelitis. Diabetes mellitus on oral agents. Atrial fibrillation on anticoagulation. Morbid obesity. Pannus. asthmatic bronchitis Hypertension. Hypokalemia. Plan: Await culture reports. Await triphasic bone scan. Followup lab and potassium. Followup infectious disease Followup wound care foot Dr. Followup surgeon. BGM's
[2017-05-16] MEDS: DIGOXIN 0.125 MG TABLET (FP) PO SCH (10:43)
[2017-05-16] MEDS: VANCOMYCIN 1,500 MG in DEXTROSE 5%-WATER - 500 ML IVPB SCH (10:44)
[2017-05-16] MEDS: ACLIDINIUM BROMIDE 400 MCG/INH AERO.POWD IH SCH ×2 (10:44→21:42)
[2017-05-16] MEDS: ALLOPURINOL 100 MG TABLET (FP) PO SCH (10:44)
[2017-05-16] MEDS: POLYETHYLENE GLYCOL 3350 119 GM BTL PO SCH (10:50)
[2017-05-16 11:46] LABS: ERYTHROCYTE SEDIMENTATION RATE 95 mm/hr (0-30)
--- NOTE | 2017-05-16 13:28 | PN ---
Progress Note (short form) - Note Progress Note: ID Vancoycin and Zosyn Selected Entries 05/16/17 06:00 Temperature 98.7 F Pulse Rate 79 Respiratory 22 Rate Blood Pressure 114/48 RIght 2nd toe discolored swollen no drainage Laboratory Tests 05/16/17 05/16/17 05/16/17 07:00 07:00 07:00 WBC 10.2 H Hgb 11.4 Hct 36.8 Plt Count 314 ESR 95 H BUN 28 H Random Vancomycin 10.555 Assessment SSTI toe Suspect osteomyelitis Plan Advise amputution may be advisable For now continue antibiotics Jassi CHAUDHARI
[2017-05-16] MEDS ORDERED: WARFARIN NA 2 MG TABLET (UD) PO ONE ×2 (18:00→18:45)
[2017-05-16] MEDS: MONTELUKAST NA 10 MG TABLET PO SCH (21:42)
[2017-05-17] MEDS ORDERED: DEXTROSE 5%-WATER 100 ML IVPB ONE ×3 (00:42→17:28)
[2017-05-17] MEDS ORDERED: PIPERACILLIN/TAZOBACTAM 4.5 GM VIAL IVPB ONE ×3 (00:42→17:27)
[2017-05-17] MEDS: PIPERACILLIN/TAZOB 4.5 GM 4.5 GM in DEXTROSE 5%-WATER 100 ML IVPB SCH ×3 (00:59→17:33)
[2017-05-17] MEDS ORDERED: oxyCODONE HCL 5 MG TABLET ONE (01:34)
[2017-05-17] MEDS: guaiFENesin/D-METHORPHAN HB 10 ML UNIT-DOSE CUPS PO PRN ×2 (01:38→22:36)
[2017-05-17] MEDS: oxyCODONE HCL 5 MG TABLET PO PRN ×2 (01:38→22:23)
[2017-05-17] MEDS: ACETAMINOPHEN 325 MG TABLET (FP) PO PRN ×2 (01:40→22:19)
[2017-05-17] MEDS: INSULIN SLIDING SCALE (NOVOLOG) 1 VIAL SQ SCH ×4 (06:20→22:35)
[2017-05-17] MEDS ORDERED: PT OWN MED DRAWER 7, Y5N ONE ×5 (06:21→22:06)
[2017-05-17] MEDS: GLIMEPIRIDE 2 MG TABLET (FP) PO SCH ×2 (06:22→17:33)
[2017-05-17] MEDS: LEVOTHYROXINE NA 50 MCG TABLET (FP) PO SCH (06:22)
[2017-05-17 07:10] LABS: BASOPHIL 1.1 % (0-2.0); EOSINOPHIL 5.2 % (0-4.5); MCH 25.7 pg (25.7-33.7); MCHC 31.3 g/dl (32.0-36.0); MEAN CELL VOLUME 82.1 fl (80-96); MEAN PLT VOLUME 7.8 fl (7.5-11.1); NEUTROPHILS 72.3 % (42.8-82.8); PLATELET COUNT 311 K/MM3 (134-434); WHITE BLOOD COUNT 10.9 K/mm3 (4.0-10.0)
[2017-05-17 07:28] LABS: INR 1.82 (0.82-1.09); PROTHROMBIN TIME (PATIENT) 20.3 SEC (9.98-11.88)
[2017-05-17 07:36] LABS: ANION GAP 5 (8-16); CALCIUM 8.8 mg/dL (8.5-10.1); CO2 38 mmol/L (21-32); GLUCOSE,RANDOM 151 mg/dL (74-106)
--- NOTE | 2017-05-17 08:16 | PN ---
Progress Note (short form) - Note Progress Note: PATIENT RESTING IN BED. MORBIDLY OBESE. RT 2ND TOE SWOLLEN. BONE SCAN CONFIRMS OSTEOMYELITIS . PER VASCULAR SURGEON MAY NEED AMPUTATION. PATIENT DENIES CP / NO SOB / NO PALPITATIONS. Selected Entries 05/17/17 06:00 Temperature 98.4 F Pulse Rate 68 Respiratory 20 Rate Blood Pressure 108/53 Laboratory Tests 05/17/17 05/17/17 05/17/17 06:00 06:00 06:00 WBC 10.9 H RBC 4.34 Hgb 11.2 Hct 35.6 MCV 82.1 MCH 25.7 MCHC 31.3 L RDW 19.0 H Plt Count 311 INR 1.82 H Sodium 139 Potassium 3.4 L Chloride 96 L Carbon Dioxide 38 H Anion Gap 5 L BUN 24 H Creatinine 1.0 POC Glucometer Random Glucose 151 H Calcium 8.8 Magnesium 2.0 05/17/17 06:17 WBC RBC Hgb Hct MCV MCH MCHC RDW Plt Count INR Sodium Potassium Chloride Carbon Dioxide Anion Gap BUN Creatinine POC Glucometer 182 Random Glucose Calcium Magnesium P/E <> AWAKE / IN NO DISTRES HEENT <> NECK SUPPLE COR <> S1 S 2 IRREG / HS DISTANT CHEST <> FEW SCATTERED RHONCHI AT BASES ABD <> MORBIDLY OBESE WITH PANNUS FORMATION EXT <> RT 2ND TOE SWOLLEN IMP : OSTEOMYELITIS RT 2 ND TOE CELLULITIS MORBID OBESITY DIABETES AFIB HYPOKALEMIA HTN ASTHMA PLAN: AB PER DR ZAVALETA POSSIBLE AMPUTATION RT 2ND TOE. ADJUST COUMADIN / INR SUBTHERAPEUTIC REPLACE K+ REPEAT LABS IN AM.
[2017-05-17 10:13] LABS: ERYTHROCYTE SEDIMENTATION RATE 95 mm/hr (0-30)
[2017-05-17] MEDS: FUROSEMIDE 40 MG TABLET (FP) PO SCH (10:39)
[2017-05-17] MEDS: DIGOXIN 0.125 MG TABLET (FP) PO SCH (10:39)
[2017-05-17] MEDS: POTASSIUM CHLORIDE TABS 20 MEQ TABLET.ER (FP) PO SCH ×4 (10:39→22:19)
[2017-05-17] MEDS: ACLIDINIUM BROMIDE 400 MCG/INH AERO.POWD IH SCH ×2 (10:40→22:19)
[2017-05-17] MEDS: ALLOPURINOL 100 MG TABLET (FP) PO SCH (10:40)
[2017-05-17] MEDS ORDERED: INSULIN (NOVOLOG) ASPART 100 UNITS/ML 10ML VIAL ONE ×2 (12:25→19:01)
[2017-05-17] MEDS: VANCOMYCIN 1,500 MG in DEXTROSE 5%-WATER - 500 ML IVPB SCH (12:30)
[2017-05-17] MEDS: POLYETHYLENE GLYCOL 3350 119 GM BTL PO SCH (12:30)
--- NOTE | 2017-05-17 12:57 | CONSULT ---
Consult - text type - Consultation Consultation Note: Podiatry Consultation: 82 year old pleasant DM F presents to hospital for admission for worsening R 2nd toe ulcer. I had seen the patient a few weeks ago for a pretrophic lesion on the same toe. It was subsequently debrided without any evidence of ulcer. Patient did not follow up with me for wound care, instead she went to [place] wound care, where an unna boot was applied weekly for venous stasis. Patient's home nursing noticed worsening swelling to the toe with ulceration which prompted hospital admission. She denies F/V/N/C/SOB/CP. Currently afebrile, VSS. PMHx: CAD, AFib on coumadine, COPD, CHF, asthma, HTN, HLP, DM, hypothyroid Meds: noted in chart ALL: NKMA LUIS: R foot: there is significant swelling and gross deformity of the 2nd digit with an ulcer distal tuft, purulent drainage expressed, dusky appearance of toe, no soft tissue crepitus, no streaking cellulitis. Toe ulcer probes to bone. WBC: 10.9 ESR: 95 Bone Scan: (+) osteomyelitis 2nd digit Blood Cx: no growth x 48 hrs Imp: 82 year old DM F with R 2nd toe ulcer, osteomyelitis 1. C/w IV abx per ID 2. C/w local wound care 3. Will need 2nd toe amputation. Please optimize INR for operation. Will likely need coumadin held. 4. Will plan for amputation next week once optimized. 5. Arterial duplex studies ordered. Thank you for the consult. Mg Ayoub DPM
--- NOTE | 2017-05-17 17:31 | PN ---
Progress Note (short form) - Note Progress Note: Received call from nursing staff that patient to receive toe amputation on Friday, however patient on Coumadin currently (afib). Will d/c coumadin and start Lovenox, to stop on Friday night in preparation for surgery on Friday.
[2017-05-17] MEDS ORDERED: WARFARIN NA 7.5 MG TABLET (FP) PO ONE (18:00)
[2017-05-17] MEDS ORDERED: WARFARIN NA 2 MG TABLET (UD) PO ONE (18:00)
[2017-05-17] MEDS: DOCUSATE SODIUM 100 MG CAPSULE (FP) PO PRN (22:19)
[2017-05-17] MEDS: MONTELUKAST NA 10 MG TABLET PO SCH (22:19)
[2017-05-17] MEDS: ENOXAPARIN NA (PORCINE) 120 MG/0.8 ML DISP.SYRIN SQ SCH (22:24)
[2017-05-18] MEDS ORDERED: DEXTROSE 5%-WATER 100 ML IVPB ONE ×3 (01:10→17:07)
[2017-05-18] MEDS ORDERED: PIPERACILLIN/TAZOBACTAM 4.5 GM VIAL IVPB ONE ×3 (01:10→17:07)
[2017-05-18] MEDS: PIPERACILLIN/TAZOB 4.5 GM 4.5 GM in DEXTROSE 5%-WATER 100 ML IVPB SCH ×3 (01:15→17:20)
[2017-05-18] MEDS ORDERED: PT OWN MED DRAWER 7, Y5N ONE ×3 (05:10→17:08)
[2017-05-18] MEDS: LEVOTHYROXINE NA 50 MCG TABLET (FP) PO SCH (06:56)
[2017-05-18] MEDS: GLIMEPIRIDE 2 MG TABLET (FP) PO SCH ×2 (06:56→17:20)
[2017-05-18] MEDS: INSULIN SLIDING SCALE (NOVOLOG) 1 VIAL SQ SCH ×3 (07:01→17:17)
[2017-05-18 07:18] LABS: BASOPHIL 0.9 % (0-2.0); EOSINOPHIL 6.2 % (0-4.5); MCH 26.2 pg (25.7-33.7); MCHC 31.9 g/dl (32.0-36.0); MEAN CELL VOLUME 82.1 fl (80-96); MEAN PLT VOLUME 7.7 fl (7.5-11.1); NEUTROPHILS 67.3 % (42.8-82.8); PLATELET COUNT 304 K/MM3 (134-434); RDW 18.8 % (11.6-15.6); WHITE BLOOD COUNT 10.3 K/mm3 (4.0-10.0)
[2017-05-18 07:52] LABS: ALBUMIN 2.7 g/dl (3.4-5.0); ANION GAP 8 (8-16); CALCIUM 8.5 mg/dL (8.5-10.1); CO2 35 mmol/L (21-32); GLUCOSE,RANDOM 84 mg/dL (74-106); SGPT/ALT 11 U/L (12-78)
--- NOTE | 2017-05-18 07:52 | PN ---
Progress Note (short form) - Note Progress Note: PATIENT COMFORTABLE / NO DISTRESS . VASCULAR NOTE REVIEWED . FOR RT 2ND TOE AMPUTATION FRIDAY. PATIENT OFF COUMADIN / ON LOVENOX. SHE DENIES ANY CP / SOB / ABDOMINAL PAIN. P/E < V/ S STABLE / AFEBRILE / BP 120 / 58 AWAKE / IN NO DISTRESS / ALERT / ORIENTED X 3 . HEENT <> NECK SUPPLE COR <> S1 S 2 IRREG / HS DISTANT CHEST <> RHONCHI AT BASES ABD <>PANNUS FORMATION / OBESE EXT <> RT 2ND TOE SWOLLEN IMP : OSTEOMYELITIS RT 2 ND TOE CELLULITIS MORBID OBESITY DIABETES AFIB HYPOKALEMIA HTN ASTHMA PLAN: AMPUTATION ON FRIDAY. CONTINUE ANTIBIOTICS . FOLLOW LABS. MONITOR BGM'S. ID FOLLOWUP WITH DR ZAVALETA
[2017-05-18 07:55] LABS: ALK PHOS 83 U/L (45-117); BILIRUBIN,TOTAL 0.9 mg/dL (0.2-1.0); CREATININE 1.1 mg/dL (0.55-1.02); SGOT/AST 18 U/L (15-37); TOT PROT 6.5 g/dl (6.4-8.2)
[2017-05-18 08:00] LABS: INR 2.7 (0.82-1.09); PROTHROMBIN TIME (PATIENT) 30.3 SEC (9.98-11.88)
[2017-05-18 10:38] LABS: ERYTHROCYTE SEDIMENTATION RATE 68 mm/hr (0-30)
[2017-05-18] MEDS: ENOXAPARIN NA (PORCINE) 120 MG/0.8 ML DISP.SYRIN SQ SCH ×2 (11:08→23:42)
[2017-05-18] MEDS: FUROSEMIDE 40 MG TABLET (FP) PO SCH (11:09)
[2017-05-18] MEDS: guaiFENesin/D-METHORPHAN HB 10 ML UNIT-DOSE CUPS PO PRN (11:09)
[2017-05-18] MEDS: POTASSIUM CHLORIDE TABS 20 MEQ TABLET.ER (FP) PO SCH ×4 (11:09→23:36)
[2017-05-18] MEDS: DOCUSATE SODIUM 100 MG CAPSULE (FP) PO PRN (11:09)
[2017-05-18] MEDS: DIGOXIN 0.125 MG TABLET (FP) PO SCH (11:09)
[2017-05-18] MEDS: ALLOPURINOL 100 MG TABLET (FP) PO SCH (11:09)
[2017-05-18] MEDS: ACLIDINIUM BROMIDE 400 MCG/INH AERO.POWD IH SCH ×2 (11:10→23:44)
[2017-05-18] MEDS: POLYETHYLENE GLYCOL 3350 119 GM BTL PO SCH (11:14)
[2017-05-18] MEDS: VANCOMYCIN 1,500 MG in DEXTROSE 5%-WATER - 500 ML IVPB SCH (11:45)
[2017-05-18] MEDS: oxyCODONE HCL 5 MG TABLET PO PRN (23:36)
[2017-05-18] MEDS: MONTELUKAST NA 10 MG TABLET PO SCH (23:36)
[2017-05-19] MEDS: INSULIN SLIDING SCALE (NOVOLOG) 1 VIAL SQ SCH ×5 (01:09→21:26)
[2017-05-19] MEDS ORDERED: DEXTROSE 5%-WATER 100 ML IVPB ONE ×3 (01:55→16:35)
[2017-05-19] MEDS ORDERED: PIPERACILLIN/TAZOBACTAM 4.5 GM VIAL IVPB ONE ×3 (01:55→16:35)
[2017-05-19] MEDS: PIPERACILLIN/TAZOB 4.5 GM 4.5 GM in DEXTROSE 5%-WATER 100 ML IVPB SCH ×3 (02:29→16:59)
[2017-05-19] MEDS: GLIMEPIRIDE 2 MG TABLET (FP) PO SCH ×2 (06:31→16:50)
--- NOTE | 2017-05-19 07:55 | PN ---
Progress Note (short form) - Note Progress Note: PATIENT TENTATIVELY SCHELUDED FOR RT 2ND TOE AMPUTATION . OFF COUMADIN BUT INR YESTERDAY 2.7 . INR TODAY 2.4 . PRE-OP CARDIOLOGY CLEARANCE REQUESTED <>DR NICOLE. PATIENT COMFORTABLE / NO COMPLAINTS OF CP / SOB / PALPITATIONS. Selected Entries 05/19/17 05:30 Temperature 98 F Pulse Rate 76 Respiratory 20 Rate Blood Pressure 110/70 P/E <> NO ACUTE DISTRESS HEENT <> NECK SUPPLE COR <> S 1 S 2 / IRREG CHEST <> CLEAR P & A ABD <> OBESE / NONTENDER / PANNUS FORMATION. EXT <> RT 2ND TOE SWOLLEN / DEFORMED. IMP : OSTEOMYELITIS RT 2 ND TOE CELLULITIS MORBID OBESITY DIABETES AFIB HYPOKALEMIA HTN ASTHMA PLAN: TENTATIVELY SCHEDULED FOR AMPUTATION RT 2ND TOE ON FRIDAY PENDING INR IN AM / CARDIOLOGY CLEARANCE REQUESTED . D/C LOVENOX WITH INR THERAPEUTIC AND SURGERY TENTATIVELY SCHEDULED FOR AM. CONTINUE ANTIBIOTICS PER I.D.
[2017-05-19 07:56] LABS: BASOPHIL 1.2 % (0-2.0); EOSINOPHIL 5.2 % (0-4.5); MCH 25.7 pg (25.7-33.7); MCHC 31.4 g/dl (32.0-36.0); MEAN CELL VOLUME 81.7 fl (80-96); MEAN PLT VOLUME 7.7 fl (7.5-11.1); PLATELET COUNT 317 K/MM3 (134-434); RDW 19.1 % (11.6-15.6)
[2017-05-19 08:09] LABS: INR 2.43 (0.82-1.09); PROTHROMBIN TIME (PATIENT) 27.2 SEC (9.98-11.88)
[2017-05-19 08:46] LABS: ANION GAP 8 (8-16); CALCIUM 8.6 mg/dL (8.5-10.1); CO2 33 mmol/L (21-32); GLUCOSE,RANDOM 62 mg/dL (74-106)
[2017-05-19 09:19] LABS: ERYTHROCYTE SEDIMENTATION RATE 60 mm/hr (0-30)
[2017-05-19] MEDS ORDERED: PT OWN MED DRAWER 7, Y5N ONE ×2 (10:25→21:28)
[2017-05-19] MEDS ORDERED: INSULIN (NOVOLOG) ASPART 100 UNITS/ML 10ML VIAL ONE ×2 (10:26→16:33)
[2017-05-19] MEDS: POTASSIUM CHLORIDE TABS 20 MEQ TABLET.ER (FP) PO SCH ×4 (10:43→21:26)
[2017-05-19] MEDS: ALLOPURINOL 100 MG TABLET (FP) PO SCH (10:43)
[2017-05-19] MEDS: FUROSEMIDE 40 MG TABLET (FP) PO SCH (10:43)
[2017-05-19] MEDS: DIGOXIN 0.125 MG TABLET (FP) PO SCH (10:43)
[2017-05-19] MEDS: POLYETHYLENE GLYCOL 3350 119 GM BTL PO SCH (10:44)
[2017-05-19] MEDS: ACLIDINIUM BROMIDE 400 MCG/INH AERO.POWD IH SCH ×2 (10:44→21:29)
--- NOTE | 2017-05-19 10:49 | PN ---
Progress Note (short form) - Note Progress Note: alert Vital Signs Period Temp Pulse Resp BP Sys/Luke Pulse Ox Last 24 Hr 97.9 F-98.6 F 70-90 20-22 101-131/54-75 91-94 cor-rrr lungs clear abd +pannus ext diffuse swellling of the second toe CBC, BMP 05/19/17 06:00 05/19/17 08:20 Microbiology 05/15/17 00:20 Blood - Peripheral Venous Blood Culture - Preliminary NO GROWTH OBTAINED AFTER 96 HOURS, INCUBATION TO CONTINUE FOR 1 DAYS. 05/15/17 00:20 Blood - Peripheral Venous Blood Culture - Preliminary NO GROWTH OBTAINED AFTER 96 HOURS, INCUBATION TO CONTINUE FOR 1 DAYS. a/p soft tissue infection of her second toe r/o osteomyelitis of the right second toe seen by podiatry- for amputation of toe when medically optomized cultures vanco/zosyn esr/crp vancomycin trough today venous stasis morbid obesity Problem List - Problems (1) Cellulitis Code(s): L03.90 - CELLULITIS, UNSPECIFIED Qualifiers: Site of cellulitis: extremity Site of cellulitis of extremity: toe Laterality: right Qualified Code(s): L03.031 - Cellulitis of right toe (2) Osteomyelitis Code(s): M86.9 - OSTEOMYELITIS, UNSPECIFIED (3) Chronic venous stasis dermatitis of both lower extremities Code(s): I87.2 - VENOUS INSUFFICIENCY (CHRONIC) (PERIPHERAL) (4) Morbid obesity Code(s): E66.01 - MORBID (SEVERE) OBESITY DUE TO EXCESS CALORIES
--- NOTE | 2017-05-19 10:51 | PN ---
Progress Note (short form) - Note Progress Note: Podiatry: Seen/evaluated at bedside, NAD. Pain controlled, denies F/V/N/C/SOB/CP. Afebrile, VSS. LUIS: R foot: 2nd digit distal tuft ulcer probing to bone, serous drainage, no fluctuance, no ascending cellulitis, no soft tissue crepitus. Dusky appearance to second toe WBC: 10.0 ESR: 60 INR: 2.43 Bone Scan: (+) 2nd digit osteomyelitis Imp: 82 year old DM F with R 2nd toe osteomyelitis 1. C/w IV abx per ID 2. Needs 2nd toe amputation, however INR too high and needs further optimization prior to procedure. Will be on standby. 3. Will follow up Mg Ayoub DPM
--- NOTE | 2017-05-19 11:43 | CON.CARD ---
Consult Consult Specialty:: Cardiology Referred by:: Dr. Storey Reason for Consultation:: Cardiac evaluation and cardiac clearance - History of Present Illness Chief Complaint: Toe pain History of Present Illness: Patient is an 82 year old female well known to me with underlying history of hypertension/hypertensive cardiovascular disease, COPD. bronchial asthma, acute on chronic LV failure, type 2 diabetes mellitus, coronary artery disease, DVT, chronic venous stasis and persistent atrial fibrillation on chronic anticoagulation who presents with 2nd right toe osteomyelitis. Currently she is on antibiotics and is awaiting toe amputation, but is held due to elevated INR. She denies chest pain, shortness of breath or palpitations. She denies paroxysmal nocturnal dyspnea or orthopnea. She denies fever or chills. She denies headache or lightheadedness. Cardiology consultation was called for further evaluation and for cardiac clearance. - History Source History Provided By: Patient, Medical Record Limitations to Obtaining History: No Limitations - Past Medical History Cardio/Vascular: Yes: AFIB, CHF, Deep Vein Thrombosis, HTN, Hyperlipdemia Pulmonary: Yes: Asthma, COPD Gastrointestinal: Yes: Hiatal Hernia ...LMP Comment: menopause Musculoskeletal: Yes: Osteoarthritis Endocrine: Yes: Diabetes Mellitus, Hypothyroidism Dermatology: Yes: Cellulitis, Eczema - Past Surgical History Past Surgical History: Yes: Appendectomy, Cholecystectomy, Hernia Repair (times three), Oopherectomy, Tonsillectomy - Alcohol/Substance Use Hx Alcohol Use: No - Smoking History Smoking history: Former smoker Have you smoked in the past 12 months: No Aproximately how many cigarettes per day: 0 If you are a former smoker, when did you quit?: 2007 - Social History Usual Living Arrangement: Alone ADL: Independent History of Recent Travel: No Home Medications - Allergies Allergies/Adverse Reactions: Allergies Allergy/AdvReac Type Severity Reaction Status Date / Time No Known Allergies Allergy Verified 05/14/17 19:51 - Home Medications Home Medications: Ambulatory Orders Albuterol Sulfate Inhaler - [Ventolin HFA Inhaler -] 2 inh IH Q6H PRN #0 inh 04/27 Allopurinol [Zyloprim -] 100 mg PO DAILY #0 tablet 06/22/13 Diltiazem Cd [Cardizem Cd -] 180 mg PO DAILY #0 cap.cd.24h 06/22/13 Montelukast Na [Singulair -] 10 mg PO HS #0 tablet 06/22/13 Acetaminophen [Tylenol .Regular Strength -] 650 mg PO Q6H PRN #240 tablet Tiotropium [place] [Spiriva] 1 inh PO DAILY #1 inhaler 06/23/13 Furosemide [Lasix -] 40 mg PO BID 03/02/14 Levothyroxine [Synthroid -] 50 mcg PO DAILY 03/02/14 Glimepiride [Amaryl] 2 mg PO BID 08/07/14 Digoxin [Lanoxin -] 1 tab PO DAILY #90 tablet 09/08/15 Oxycodone HCl [Roxicodone -] 5 mg PO Q12H PRN #0 tablet 09/08/15 Warfarin Na [Coumadin -] 4 mg PO DAILY@1800 tablet 02/20/16 Docusate Sodium [Colace -] 100 mg PO BID PRN #0 cap 04/29/17 Polyethylene Glycol 3350 [Miralax 119 gm Btl -] 17 gm PO DAILY #1 bottle Potassium Chloride [K-Dur -] 20 meq PO TID tab 04/29/17 Family Disease History - Family Disease History Family Disease History: Heart Disease: Mother ([place]), Other: Father (ETOH cirrhosis), Sister (alive and well) Review of Systems - Review of Systems Constitutional: denies: Chills, Fever Cardiovascular: denies: Chest Pain, Palpitations, Shortness of Breath Respiratory: denies: Cough, Hemoptysis, Orthopnea, PND, SOB, SOB on Exertion Gastrointestinal: denies: Abdominal Pain, Constipation, Diarrhea, Melena, Nausea , Rectal Bleeding, Vomiting Musculoskeletal: reports: Joint Pain Neurological: denies: Dizziness, Headache, Seizure, Syncope, Weakness Vital Signs: Vital Signs Temperature 98 F 05/19/17 05:30 Pulse Rate 90 05/19/17 10:43 Respiratory Rate 20 05/19/17 05:30 Blood Pressure 110/70 05/19/17 05:30 O2 Sat by Pulse Oximetry (%) 94 L 05/18/17 23:00 Neck: Yes: Supple Respiratory: Yes: Diminished Gastrointestinal: Yes: Normal Bowel Sounds, Soft, Abdomen, Obese. No: Tenderness Cardiovascular: Yes: Pulse Irregular JVD: No Carotid Bruit: No PMI: Non-Displaced Heart Sounds: Yes: S1, S2 Extremities: Yes: Other (Right 2nd toe discoloration) Edema: Yes Integumentary: Yes: Venous Stasis Changes - Other Data Labs, Other Data: CBC, BMP 05/19/17 06:00 05/19/17 08:20 INR, PTT INR 2.43 (0.82-1.09) H 05/19/17 06:00 Laboratory Results - last 24 hr 05/19/17 05/19/17 05/19/17 06:00 06:00 06:37 WBC 10.0 RBC 4.21 Hgb 10.8 Hct 34.4 MCV 81.7 MCH 25.7 MCHC 31.4 L RDW 19.1 H Plt Count 317 MPV 7.7 Neutrophils % 69.0 Lymphocytes % 16.6 Monocytes % 8.0 Eosinophils % 5.2 H Basophils % 1.2 ESR 60 H INR 2.43 H Sodium Potassium Chloride Carbon Dioxide Anion Gap BUN Creatinine POC Glucometer 69 Random Glucose Calcium 05/19/17 05/19/17 08:20 10:46 WBC RBC Hgb Hct MCV MCH MCHC RDW Plt Count MPV Neutrophils % Lymphocytes % Monocytes % Eosinophils % Basophils % ESR INR Sodium 139 Potassium 3.8 Chloride 98 Carbon Dioxide 33 H Anion Gap 8 BUN 23 H Creatinine 1.0 POC Glucometer 159 Random Glucose 62 L D Calcium 8.6 Atrial fibrillation with RBBB Imaging - Results Chest X-ray: Report Reviewed (Cardiomegaly with increased marking) X-ray: Report Reviewed (Foot xray with metalic object) Ultrasound: Report Reviewed (Doppler ultrasound) EKG: Report Reviewed Other: Report Reviewed (Bone scan shows evidence of osteomyelitis) Problem List - Problems (1) Atrial fibrillation Code(s): I48.91 - UNSPECIFIED ATRIAL FIBRILLATION Qualifiers: Atrial fibrillation type: chronic Qualified Code(s): I48.2 - Chronic atrial fibrillation (2) Chronic venous stasis dermatitis of both lower extremities Code(s): I87.2 - VENOUS INSUFFICIENCY (CHRONIC) (PERIPHERAL) (3) Morbid obesity Code(s): E66.01 - MORBID (SEVERE) OBESITY DUE TO EXCESS CALORIES (4) Osteomyelitis Code(s): M86.9 - OSTEOMYELITIS, UNSPECIFIED (5) COPD (chronic obstructive pulmonary disease) Code(s): J44.9 - CHRONIC OBSTRUCTIVE PULMONARY DISEASE, UNSPECIFIED Qualifiers : COPD type: COPD with acute exacerbation Qualified Code(s): J44.1 - Chronic obstructive pulmonary disease with (acute) exacerbation (6) Diabetes Code(s): E11.9 - TYPE 2 DIABETES MELLITUS WITHOUT COMPLICATIONS Qualifiers: Diabetes mellitus type: type 2 Diabetes mellitus complication status: with hyperglycemia Diabetes mellitus prison insulin use: without termite helper use Qualified Code(s): E11.65 - Type 2 diabetes mellitus with hyperglycemia; Z79.4 - rn long term care (current) use of insulin (7) Diastolic dysfunction without heart failure Code(s): I51.9 - HEART DISEASE, UNSPECIFIED (8) HTN (hypertension) Code(s): I10 - ESSENTIAL (PRIMARY) HYPERTENSION Qualifiers: Hypertension type: essential hypertension Qualified Code(s): I10 - Essential (primary) hypertension Assessment/Plan 1. Right toe osteomyelitis for amputation 2. Coronary artery disease 3. Hypertension/hypertensive cardiovascular disease 4. Persistent atrial fibrillation 5. COPD 6. Morbid obesity 7. Type 2 diabetes mellitus 8. Acute on chronic LV failure - currently compensated 9. History of DVT 10. Chronic venous stasis 11. Possible metallic object in the right foot, etiology to be determined - possible pin that is embedded in the foot PLAN: 1. No absolute contraindication in proceeding with toe amputation in view of absence of ischemic symptoms, decompensated congestive heart failure or malignant arrhythmia. Post operative ECG and cardiac enzyme recommended. Wait until INR is below 1.5 and let it drift down and not use Vitamin K 2. Continue Cardizem as tolerated. Continue Digoxin with caution 3. Continue antibiotic coverage as per ID 4. Continue diuretics as tolerated Will follow with you. Thank you for the consultation Further plans are to follow Matt Ferraro MD
[2017-05-19] MEDS: VANCOMYCIN 1,500 MG in DEXTROSE 5%-WATER - 500 ML IVPB SCH (13:00)
[2017-05-19] MEDS: oxyCODONE HCL 5 MG TABLET PO PRN (21:25)
[2017-05-19] MEDS: GABAPENTIN 100 MG CAPSULE (FP) PO SCH (21:26)
[2017-05-19] MEDS: MONTELUKAST NA 10 MG TABLET PO SCH (21:26)
[2017-05-20] MEDS ORDERED: PIPERACILLIN/TAZOBACTAM 4.5 GM VIAL IVPB ONE ×3 (01:04→18:12)
[2017-05-20] MEDS ORDERED: DEXTROSE 5%-WATER 100 ML IVPB ONE ×3 (01:05→18:13)
[2017-05-20] MEDS: PIPERACILLIN/TAZOB 4.5 GM 4.5 GM in DEXTROSE 5%-WATER 100 ML IVPB SCH ×3 (01:12→18:15)
[2017-05-20] MEDS ORDERED: PT OWN MED DRAWER 7, Y5N ONE ×4 (05:22→21:07)
[2017-05-20] MEDS: LEVOTHYROXINE NA 50 MCG TABLET (FP) PO SCH (06:18)
[2017-05-20] MEDS: INSULIN SLIDING SCALE (NOVOLOG) 1 VIAL SQ SCH ×4 (06:19→21:46)
[2017-05-20] MEDS: GLIMEPIRIDE 2 MG TABLET (FP) PO SCH ×2 (06:19→16:49)
[2017-05-20 09:03] LABS: INR 1.95 (0.82-1.09); PROTHROMBIN TIME (PATIENT) 21.7 SEC (9.98-11.88)
[2017-05-20] MEDS: FUROSEMIDE 40 MG TABLET (FP) PO SCH (10:03)
[2017-05-20] MEDS: DIGOXIN 0.125 MG TABLET (FP) PO SCH (10:03)
[2017-05-20] MEDS: VANCOMYCIN 1,500 MG in DEXTROSE 5%-WATER - 500 ML IVPB SCH (10:04)
[2017-05-20] MEDS: GABAPENTIN 100 MG CAPSULE (FP) PO SCH ×2 (10:04→21:41)
[2017-05-20] MEDS: ALLOPURINOL 100 MG TABLET (FP) PO SCH (10:04)
[2017-05-20] MEDS: POTASSIUM CHLORIDE TABS 20 MEQ TABLET.ER (FP) PO SCH ×4 (10:04→21:41)
[2017-05-20] MEDS: ACLIDINIUM BROMIDE 400 MCG/INH AERO.POWD IH SCH ×2 (10:05→21:42)
--- NOTE | 2017-05-20 10:52 | PN ---
Progress Note, Physician Chief Complaint: Not in distress History of Present Illness: Patient was seen and examined. Awake and alert. Chart was reviewed Denies chest pain, SOB or palpitations - Current Medication List Current Medications: Active Medications Acetaminophen (Tylenol -) 650 mg PO Q6H PRN PRN Reason: PAIN Last Admin: 05/17/17 22:19 Dose: 650 mg Aclidinium [place] (Tudorza -) 1 puff IH BID [facility] Last Admin: 05/20/17 10:05 Dose: 1 puff Albuterol Sulfate (Ventolin Hfa Inhaler -) 2 puff IH Q6H PRN PRN Reason: SHORTNESS OF BREATH Last Admin: 05/17/17 00:55 Dose: 2 puff Allopurinol (Zyloprim -) 100 mg PO DAILY [facility] Last Admin: 05/20/17 10:04 Dose: 100 mg Digoxin (Lanoxin -) 0.125 mg PO DAILY [facility] Last Admin: 05/20/17 10:03 Dose: 0.125 mg Diltiazem HCl (Cardizem Cd -) 180 mg PO DAILY [facility] Last Admin: 05/20/17 10:03 Dose: 180 mg Docusate Sodium (Colace -) 100 mg PO BID PRN PRN Reason: CONSTIPATION Last Admin: 05/18/17 11:09 Dose: 100 mg Furosemide (Lasix -) 80 mg PO DAILY [facility] Last Admin: 05/20/17 10:03 Dose: 80 mg Gabapentin (Neurontin -) 100 mg PO BID [facility] Last Admin: 05/20/17 10:04 Dose: 100 mg Glimepiride (Amaryl -) 2 mg PO BIDAC [facility] Last Admin: 05/20/17 06:19 Dose: 2 mg Guaifenesin (Robitussin Dm -) 5 ml PO Q6H PRN Last Admin: 05/18/17 11:09 Dose: 5 ml Vancomycin HCl 1,500 mg/ (Dextrose) 500 mls @ 250 mls/hr IVPB DAILY [facility] PRN Reason: Protocol Last Admin: 05/20/17 10:04 Dose: 250 mls/hr Piperacillin Sod/Tazobactam (Sod 4.5 gm/ Dextrose) 100 mls @ 200 mls/hr IVPB Q8H-IV [facility] Last Admin: 05/20/17 10:05 Dose: 200 mls/hr Insulin Aspart (Novolog Vial Sliding Scale -) 1 vial SQ ACHS [facility] PRN Reason: Protocol Last Admin: 05/20/17 06:19 Dose: Not Given Levothyroxine Sodium (Synthroid -) 50 mcg PO AM [facility] Last Admin: 05/20/17 06:18 Dose: 50 mcg Montelukast Sodium (Singulair -) 10 mg PO HS [facility] Last Admin: 05/19/17 21:26 Dose: 10 mg Oxycodone HCl (Roxicodone -) 5 mg PO Q12H PRN Last Admin: 05/19/17 21:25 Dose: 5 mg Polyethylene Glycol (Miralax (For Daily Use) -) 17 gm PO DAILY [facility] Last Admin: 05/19/17 10:44 Dose: Not Given Potassium Chloride (K-Dur -) 20 meq PO QID [facility] Last Admin: 05/20/17 10:04 Dose: 20 meq - Objective Vital Signs: Vital Signs Temperature 97.8 F 05/20/17 08:00 Pulse Rate 89 05/20/17 10:03 Respiratory Rate 18 05/20/17 08:00 Blood Pressure 132/56 05/20/17 08:00 O2 Sat by Pulse Oximetry (%) 95 05/20/17 09:00 Neck: Yes: Supple Cardiovascular: Yes: Pulse Irregular, S1, S2 Respiratory: Yes: Diminished Gastrointestinal: Yes: Normal Bowel Sounds, Soft, Abdomen, Obese. No: Tenderness Edema: Yes Additional Findings/Remarks: - Review of Systems Constitutional: denies: Chills, Fever Cardiovascular: denies: Chest Pain, Palpitations, Shortness of Breath Respiratory: denies: Cough, Hemoptysis, Orthopnea, PND, SOB, SOB on Exertion Gastrointestinal: denies: Abdominal Pain, Constipation, Diarrhea, Melena, Nausea , Rectal Bleeding, Vomiting Musculoskeletal: reports: Joint Pain Neurological: denies: Dizziness, Headache, Seizure, Syncope, Weakness Labs: CBC, BMP 05/19/17 06:00 05/19/17 08:20 INR, PTT INR 1.95 (0.82-1.09) H 05/20/17 07:30 Problem List - Problems (1) Atrial fibrillation Code(s): I48.91 - UNSPECIFIED ATRIAL FIBRILLATION Qualifiers: Atrial fibrillation type: chronic Qualified Code(s): I48.2 - Chronic atrial fibrillation (2) Chronic venous stasis dermatitis of both lower extremities Code(s): I87.2 - VENOUS INSUFFICIENCY (CHRONIC) (PERIPHERAL) (3) Morbid obesity Code(s): E66.01 - MORBID (SEVERE) OBESITY DUE TO EXCESS CALORIES (4) Osteomyelitis Code(s): M86.9 - OSTEOMYELITIS, UNSPECIFIED Qualifiers: Osteomyelitis type: unspecified type Osteomyelitis location: foot Laterality: right Qualified Code(s): M86.9 - Osteomyelitis, unspecified (5) COPD (chronic obstructive pulmonary disease) Code(s): J44.9 - CHRONIC OBSTRUCTIVE PULMONARY DISEASE, UNSPECIFIED Qualifiers : COPD type: COPD with acute exacerbation Qualified Code(s): J44.1 - Chronic obstructive pulmonary disease with (acute) exacerbation (6) Diabetes Code(s): E11.9 - TYPE 2 DIABETES MELLITUS WITHOUT COMPLICATIONS Qualifiers: Diabetes mellitus type: type 2 Diabetes mellitus complication status: with hyperglycemia Diabetes mellitus snf insulin use: without snf use Qualified Code(s): E11.65 - Type 2 diabetes mellitus with hyperglycemia; Z79.4 - extermination inspector (current) use of insulin (7) Diastolic dysfunction without heart failure Code(s): I51.9 - HEART DISEASE, UNSPECIFIED (8) HTN (hypertension) Code(s): I10 - ESSENTIAL (PRIMARY) HYPERTENSION Qualifiers: Hypertension type: essential hypertension Qualified Code(s): I10 - Essential (primary) hypertension Assessment/Plan 1. Right toe osteomyelitis for amputation 2. Coronary artery disease 3. Hypertension/hypertensive cardiovascular disease 4. Persistent atrial fibrillation 5. COPD 6. Morbid obesity 7. Type 2 diabetes mellitus 8. Acute on chronic LV failure - currently compensated 9. History of DVT 10. Chronic venous stasis 11. Possible metallic object in the right foot, etiology to be determined - possible pin that is embedded in the foot PLAN: 1. No absolute contraindication in proceeding with toe amputation in view of absence of ischemic symptoms, decompensated congestive heart failure or malignant arrhythmia. Post operative ECG and cardiac enzyme recommended. Wait until INR is below 1.5 and let it drift down and not use Vitamin K 2. Continue Cardizem as tolerated. Continue Digoxin with caution 3. Continue antibiotic coverage as per ID 4. Continue diuretics as tolerated Will follow with you. Thank you for the consultation Further plans are to follow Matt Ferraro MD
[2017-05-20] MEDS: POLYETHYLENE GLYCOL 3350 119 GM BTL PO SCH (11:00)
[2017-05-20] MEDS ORDERED: INSULIN (NOVOLOG) ASPART 100 UNITS/ML 10ML VIAL ONE ×3 (11:55→21:46)
--- NOTE | 2017-05-20 12:10 | PN ---
Progress Note (short form) - Note Progress Note: Podiatry F/U: Seen and evaluated at bedside, NAD. Pain is controlled, denies F/V/N/C/SOB/CP. AFebrile, VSS. Discussed case with patient's son who is in agreement with plan. Now off AC. LUIS: R foot: 2nd digit distal tuft ulcer probing to bone, significant swelling to the digit, no soft tissue crepitus, no streaking cellulitis. Minimal tenderness to palpation. WBC: 10.0 ESR: 60 Bone Scan: (+) osteomyelitis 2nd digit Imp: 82 year old DM F with R 2nd digit ulcer and osteomyelitis 1. C/w IV abx per ID 2. Cardiology clearance note appreciated. Waiting for INR to decrease prior to planned procedure. 3. Risks, benefits, alternatives to sx discussed at length with patient and her son, who are in agreement for planned procedure. 4. Once INR stable, will perform 2nd toe amputation /Friday. Will follow. Mg Ayoub DPM
--- NOTE | 2017-05-20 12:24 | PN ---
Progress Note, Physician Chief Complaint: Not as much pain right foot when going with her walker to the bathroom. History of Present Illness: Patint with acute celluliris and osteomyelitis 2nd toe right foot. On 2 IV antibiotics. Afebrile; WBC 10,000 and sed 95 to 60. INR 1.95. Dr. Ayoub awaiting INR 1.5 or below and getting the OR time. Past Hx. of A. Fibrillation,Hypertension, Morbid besity, Asthmatic Bronchitis, Abdominal pannus , NIDDM and severe DJD knees. Seen for preop Cardiac evaluation by Dr. Matt Ferraro. - Current Medication List Current Medications: Active Medications Acetaminophen (Tylenol -) 650 mg PO Q6H PRN PRN Reason: PAIN Last Admin: 05/17/17 22:19 Dose: 650 mg Aclidinium [place] (Tudorza -) 1 puff IH BID [facility] Last Admin: 05/20/17 10:05 Dose: 1 puff Albuterol Sulfate (Ventolin Hfa Inhaler -) 2 puff IH Q6H PRN PRN Reason: SHORTNESS OF BREATH Last Admin: 05/17/17 00:55 Dose: 2 puff Allopurinol (Zyloprim -) 100 mg PO DAILY [facility] Last Admin: 05/20/17 10:04 Dose: 100 mg Digoxin (Lanoxin -) 0.125 mg PO DAILY [facility] Last Admin: 05/20/17 10:03 Dose: 0.125 mg Diltiazem HCl (Cardizem Cd -) 180 mg PO DAILY [facility] Last Admin: 05/20/17 10:03 Dose: 180 mg Docusate Sodium (Colace -) 100 mg PO BID PRN PRN Reason: CONSTIPATION Last Admin: 05/18/17 11:09 Dose: 100 mg Furosemide (Lasix -) 80 mg PO DAILY [facility] Last Admin: 05/20/17 10:03 Dose: 80 mg Gabapentin (Neurontin -) 100 mg PO BID [facility] Last Admin: 05/20/17 10:04 Dose: 100 mg Glimepiride (Amaryl -) 2 mg PO BIDAC [facility] Last Admin: 05/20/17 06:19 Dose: 2 mg Guaifenesin (Robitussin Dm -) 5 ml PO Q6H PRN Last Admin: 05/18/17 11:09 Dose: 5 ml Vancomycin HCl 1,500 mg/ (Dextrose) 500 mls @ 250 mls/hr IVPB DAILY [facility] PRN Reason: Protocol Last Admin: 05/20/17 10:04 Dose: 250 mls/hr Piperacillin Sod/Tazobactam (Sod 4.5 gm/ Dextrose) 100 mls @ 200 mls/hr IVPB Q8H-IV [facility] Last Admin: 05/20/17 10:05 Dose: 200 mls/hr Insulin Aspart (Novolog Vial Sliding Scale -) 1 vial SQ ACHS [facility] PRN Reason: Protocol Last Admin: 05/20/17 12:00 Dose: Not Given Levothyroxine Sodium (Synthroid -) 50 mcg PO AM [facility] Last Admin: 05/20/17 06:18 Dose: 50 mcg Montelukast Sodium (Singulair -) 10 mg PO HS [facility] Last Admin: 05/19/17 21:26 Dose: 10 mg Oxycodone HCl (Roxicodone -) 5 mg PO Q12H PRN Last Admin: 05/19/17 21:25 Dose: 5 mg Polyethylene Glycol (Miralax (For Daily Use) -) 17 gm PO DAILY [facility] Last Admin: 05/20/17 11:00 Dose: Not Given Potassium Chloride (K-Dur -) 20 meq PO QID [facility] Last Admin: 05/20/17 10:04 Dose: 20 meq - Objective Vital Signs: Vital Signs Temperature 97.8 F 05/20/17 08:00 Pulse Rate 89 05/20/17 10:03 Respiratory Rate 18 05/20/17 08:00 Blood Pressure 132/56 05/20/17 08:00 O2 Sat by Pulse Oximetry (%) 95 05/20/17 09:00 Constitutional: Yes: Calm Cardiovascular: Yes: Pulse Irregular. No: Tachycardia Respiratory: Yes: Diminished. No: Wheezes Gastrointestinal: Yes: Soft, Other (Pannus noted.) Extremities: Yes: Other (2nd toe right foot swollen,skin peeling, slight erythema but no odor. Chronic stasis changes both legs.) Edema: No Integumentary: Yes: Venous Stasis Changes Neurological: Yes: Alert, Oriented Labs: CBC, BMP 05/19/17 06:00 05/19/17 08:20 INR, PTT INR 1.95 (0.82-1.09) H 05/20/17 07:30 - ....Imaging Chest X-ray: Report Reviewed EKG: Report Reviewed Problem List - Problems (1) Osteomyelitis Assessment/Plan: On Iv antibiotics; for surgical amputation 2nd toe right foot. Nuclear bone scan was reviewed. Code(s): M86.9 - OSTEOMYELITIS, UNSPECIFIED Qualifiers: Osteomyelitis type: unspecified type Osteomyelitis location: foot Laterality: right Qualified Code(s): M86.9 - Osteomyelitis, unspecified (2) Atrial fibrillation Assessment/Plan: On anticoagulation but held due to surgical Rx. Code(s): I48.91 - UNSPECIFIED ATRIAL FIBRILLATION Qualifiers: Atrial fibrillation type: chronic Qualified Code(s): I48.2 - Chronic atrial fibrillation (3) Cellulitis Assessment/Plan: On Antibiotics IV. Code(s): L03.90 - CELLULITIS, UNSPECIFIED Qualifiers: Site of cellulitis: extremity Site of cellulitis of extremity: toe Laterality: right Qualified Code(s): L03.031 - Cellulitis of right toe (4) Chronic venous stasis dermatitis of both lower extremities Assessment/Plan: Has been Rx[facility] with [facility] Code(s): I87.2 - VENOUS INSUFFICIENCY (CHRONIC) (PERIPHERAL) (5) COPD (chronic obstructive pulmonary disease) Assessment/Plan: ON aerosol Rx; no current wheezes Code(s): J44.9 - CHRONIC OBSTRUCTIVE PULMONARY DISEASE, UNSPECIFIED Qualifiers : COPD type: COPD with acute exacerbation Qualified Code(s): J44.1 - Chronic obstructive pulmonary disease with (acute) exacerbation (6) Diabetes Assessment/Plan: BGM's being followed. 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
--- NOTE | 2017-05-20 12:28 | PN ---
Progress Note (short form) - Note Progress Note: alert ambulating with walker Vital Signs Period Temp Pulse Resp BP Sys/Luke Pulse Ox Last 24 Hr 97.7 F-98.2 F 68-89 18-20 104-132/52-72 95-96 cor-rrr llungs decreased bs at bases abd pannus ext right second toe uncanged bilateral venous stasis changes CBC, BMP 05/19/17 06:00 05/19/17 08:20 Microbiology 05/15/17 00:20 Blood - Peripheral Venous Blood Culture - Final NO GROWTH AFTER 5 DAYS INCUBATION 05/15/17 00:20 Blood - Peripheral Venous Blood Culture - Final NO GROWTH AFTER 5 DAYS INCUBATION a/p soft tissue infection of her second toe osteomyelitis of the right second toe seen by podiatry- for amputation of toe when medically optimized cultures vanco/zosyn-continue same doses of antibiotics venous stasis morbid obesity Laboratory Tests 05/19/17 11:30 Vancomycin Pre-Dose 11.669 H Problem List - Problems (1) Cellulitis Code(s): L03.90 - CELLULITIS, UNSPECIFIED Qualifiers: Qualified Code(s): L03.031 - Cellulitis of right toe (2) Osteomyelitis Code(s): M86.9 - OSTEOMYELITIS, UNSPECIFIED Qualifiers: Qualified Code(s): M86.9 - Osteomyelitis, unspecified (3) Chronic venous stasis dermatitis of both lower extremities Code(s): I87.2 - VENOUS INSUFFICIENCY (CHRONIC) (PERIPHERAL) (4) Morbid obesity Code(s): E66.01 - MORBID (SEVERE) OBESITY DUE TO EXCESS CALORIES
[2017-05-20] MEDS: MONTELUKAST NA 10 MG TABLET PO SCH (21:41)
[2017-05-20] MEDS: oxyCODONE HCL 5 MG TABLET PO PRN (21:48)
[2017-05-21] MEDS ORDERED: PIPERACILLIN/TAZOBACTAM 4.5 GM VIAL IVPB ONE ×3 (02:12→17:56)
[2017-05-21] MEDS ORDERED: DEXTROSE 5%-WATER 100 ML IVPB ONE ×3 (02:13→17:56)
[2017-05-21] MEDS: PIPERACILLIN/TAZOB 4.5 GM 4.5 GM in DEXTROSE 5%-WATER 100 ML IVPB SCH ×3 (02:17→18:05)
[2017-05-21] MEDS ORDERED: PT OWN MED DRAWER 7, Y5N ONE ×2 (06:18→17:59)
[2017-05-21] MEDS: INSULIN SLIDING SCALE (NOVOLOG) 1 VIAL SQ SCH ×4 (06:36→21:41)
[2017-05-21] MEDS: GLIMEPIRIDE 2 MG TABLET (FP) PO SCH ×2 (06:36→18:05)
[2017-05-21] MEDS: LEVOTHYROXINE NA 50 MCG TABLET (FP) PO SCH (06:37)
--- NOTE | 2017-05-21 08:53 | PN ---
Progress Note, Physician Chief Complaint: No pain in right foot and second toe. History of Present Illness: Patient with Acute Osteomyelitis 2nd toe right foot is scheduled to go to OR for amputation. Multiple comorbidities including A.Fib,Hypertension,COPD, NIDDM , previous CHF and Obesity. Evaluated by Cardiology.IF INR falls lower today I may have to order IV Heparin due to her A. Fib. I have called OR about trying to get surgical schedule by . - Current Medication List Current Medications: Active Medications Acetaminophen (Tylenol -) 650 mg PO Q6H PRN PRN Reason: PAIN Last Admin: 05/17/17 22:19 Dose: 650 mg Aclidinium [place] (Tudorza -) 1 puff IH BID [facility] Last Admin: 05/20/17 21:42 Dose: 1 puff Albuterol Sulfate (Ventolin Hfa Inhaler -) 2 puff IH Q6H PRN PRN Reason: SHORTNESS OF BREATH Last Admin: 05/17/17 00:55 Dose: 2 puff Allopurinol (Zyloprim -) 100 mg PO DAILY [facility] Last Admin: 05/20/17 10:04 Dose: 100 mg Digoxin (Lanoxin -) 0.125 mg PO DAILY [facility] Last Admin: 05/20/17 10:03 Dose: 0.125 mg Diltiazem HCl (Cardizem Cd -) 180 mg PO DAILY [facility] Last Admin: 05/20/17 10:03 Dose: 180 mg Docusate Sodium (Colace -) 100 mg PO BID PRN PRN Reason: CONSTIPATION Last Admin: 05/18/17 11:09 Dose: 100 mg Furosemide (Lasix -) 80 mg PO DAILY [facility] Last Admin: 05/20/17 10:03 Dose: 80 mg Gabapentin (Neurontin -) 100 mg PO BID [facility] Last Admin: 05/20/17 21:41 Dose: 100 mg Glimepiride (Amaryl -) 2 mg PO BIDAC [facility] Last Admin: 05/21/17 06:36 Dose: 2 mg Guaifenesin (Robitussin Dm -) 5 ml PO Q6H PRN Last Admin: 05/18/17 11:09 Dose: 5 ml Vancomycin HCl 1,500 mg/ (Dextrose) 500 mls @ 250 mls/hr IVPB DAILY [facility] PRN Reason: Protocol Last Admin: 05/20/17 10:04 Dose: 250 mls/hr Piperacillin Sod/Tazobactam (Sod 4.5 gm/ Dextrose) 100 mls @ 200 mls/hr IVPB Q8H-IV [facility] Last Admin: 05/21/17 02:17 Dose: 200 mls/hr Insulin Aspart (Novolog Vial Sliding Scale -) 1 vial SQ ACHS [facility] PRN Reason: Protocol Last Admin: 05/21/17 06:36 Dose: Not Given Levothyroxine Sodium (Synthroid -) 50 mcg PO AM [facility] Last Admin: 05/21/17 06:37 Dose: 50 mcg Montelukast Sodium (Singulair -) 10 mg PO HS [facility] Last Admin: 05/20/17 21:41 Dose: 10 mg Oxycodone HCl (Roxicodone -) 5 mg PO Q12H PRN Last Admin: 05/20/17 21:48 Dose: 5 mg Polyethylene Glycol (Miralax (For Daily Use) -) 17 gm PO DAILY [facility] Last Admin: 05/20/17 11:00 Dose: Not Given Potassium Chloride (K-Dur -) 20 meq PO QID [facility] Last Admin: 05/20/17 21:41 Dose: 20 meq - Objective Vital Signs: Vital Signs Temperature 97.7 F 05/21/17 08:00 Pulse Rate 85 05/21/17 08:00 Respiratory Rate 18 05/21/17 08:00 Blood Pressure 133/65 05/21/17 08:00 O2 Sat by Pulse Oximetry (%) 95 05/20/17 21:00 Constitutional: Yes: Calm Cardiovascular: Yes: Pulse Irregular. No: Tachycardia Respiratory: Yes: Diminished. No: Wheezes Gastrointestinal: Yes: Abdomen, Obese Genitourinary: No: Bae Present Edema: No Integumentary: Yes: Venous Stasis Changes Wound/Incision: Yes: Other (Less swelling and erythema 2nd toe right foot.) Neurological: Yes: Alert, Oriented Labs: CBC, BMP 05/19/17 06:00 05/19/17 08:20 INR, PTT INR 1.95 (0.82-1.09) H 05/20/17 07:30 Problem List - Problems (1) Osteomyelitis Assessment/Plan: On IV antibiotics Code(s): M86.9 - OSTEOMYELITIS, UNSPECIFIED Qualifiers: Osteomyelitis type: unspecified type Osteomyelitis location: foot Laterality: right Qualified Code(s): M86.9 - Osteomyelitis, unspecified (2) Atrial fibrillation Assessment/Plan: May need IV heparin if surgery is further delayed and INR falls lower. (Was 1.95 yesterday) Code(s): I48.91 - UNSPECIFIED ATRIAL FIBRILLATION Qualifiers: Atrial fibrillation type: chronic Qualified Code(s): I48.2 - Chronic atrial fibrillation (3) Cellulitis Assessment/Plan: On Rx. Code(s): L03.90 - CELLULITIS, UNSPECIFIED Qualifiers: Site of cellulitis: extremity Site of cellulitis of extremity: toe Laterality: right Qualified Code(s): L03.031 - Cellulitis of right toe (4) Chronic venous stasis dermatitis of both lower extremities Assessment/Plan: No current pedal edema. Code(s): I87.2 - VENOUS INSUFFICIENCY (CHRONIC) (PERIPHERAL) (5) COPD (chronic obstructive pulmonary disease) Assessment/Plan: No SOB or wheezing currently. Code(s): J44.9 - CHRONIC OBSTRUCTIVE PULMONARY DISEASE, UNSPECIFIED Qualifiers : COPD type: COPD with acute exacerbation Qualified Code(s): J44.1 - Chronic obstructive pulmonary disease with (acute) exacerbation (6) Diabetes Assessment/Plan: BGM's noted. Code(s): E11.9 - TYPE 2 DIABETES MELLITUS WITHOUT COMPLICATIONS Qualifiers: Diabetes mellitus type: type 2 Diabetes mellitus complication status: with hyperglycemia Diabetes mellitus intermediate insulin use: without intermediate use Qualified Code(s): E11.65 - Type 2 diabetes mellitus with hyperglycemia; Z79.4 - halfway (current) use of insulin
[2017-05-21 09:05] LABS: BASOPHIL 1.3 % (0-2.0); EOSINOPHIL 4.2 % (0-4.5); MCH 25.9 pg (25.7-33.7); MCHC 31.3 g/dl (32.0-36.0); MEAN CELL VOLUME 82.7 fl (80-96); MEAN PLT VOLUME 7.6 fl (7.5-11.1); NEUTROPHILS 66.8 % (42.8-82.8); PLATELET COUNT 314 K/MM3 (134-434); RDW 19.5 % (11.6-15.6); WHITE BLOOD COUNT 9.3 K/mm3 (4.0-10.0)
[2017-05-21 09:16] LABS: INR 1.67 (0.82-1.09); PROTHROMBIN TIME (PATIENT) 18.6 SEC (9.98-11.88)
[2017-05-21 09:33] LABS: ANION GAP 7 (8-16); CALCIUM 8.7 mg/dL (8.5-10.1); CO2 32 mmol/L (21-32); CREATININE 0.9 mg/dL (0.55-1.02); GLUCOSE,RANDOM 85 mg/dL (74-106); MAGNESIUM 2.5 mg/dL (1.8-2.4)
--- NOTE | 2017-05-21 10:21 | PN ---
Progress Note, Physician Chief Complaint: Not in distress History of Present Illness: Patient was seen and examined. Awake and alert. Chart was reviewed Denies chest pain, SOB or palpitations - Current Medication List Current Medications: Active Medications Acetaminophen (Tylenol -) 650 mg PO Q6H PRN PRN Reason: PAIN Last Admin: 05/17/17 22:19 Dose: 650 mg Aclidinium [place] (Tudorza -) 1 puff IH BID [facility] Last Admin: 05/20/17 21:42 Dose: 1 puff Albuterol Sulfate (Ventolin Hfa Inhaler -) 2 puff IH Q6H PRN PRN Reason: SHORTNESS OF BREATH Last Admin: 05/17/17 00:55 Dose: 2 puff Allopurinol (Zyloprim -) 100 mg PO DAILY [facility] Last Admin: 05/20/17 10:04 Dose: 100 mg Digoxin (Lanoxin -) 0.125 mg PO DAILY [facility] Last Admin: 05/20/17 10:03 Dose: 0.125 mg Diltiazem HCl (Cardizem Cd -) 180 mg PO DAILY [facility] Last Admin: 05/20/17 10:03 Dose: 180 mg Docusate Sodium (Colace -) 100 mg PO BID PRN PRN Reason: CONSTIPATION Last Admin: 05/18/17 11:09 Dose: 100 mg Furosemide (Lasix -) 80 mg PO DAILY [facility] Last Admin: 05/20/17 10:03 Dose: 80 mg Gabapentin (Neurontin -) 100 mg PO BID [facility] Last Admin: 05/20/17 21:41 Dose: 100 mg Glimepiride (Amaryl -) 2 mg PO BIDAC [facility] Last Admin: 05/21/17 06:36 Dose: 2 mg Guaifenesin (Robitussin Dm -) 5 ml PO Q6H PRN Last Admin: 05/18/17 11:09 Dose: 5 ml Vancomycin HCl 1,500 mg/ (Dextrose) 500 mls @ 250 mls/hr IVPB DAILY [facility] PRN Reason: Protocol Last Admin: 05/20/17 10:04 Dose: 250 mls/hr Piperacillin Sod/Tazobactam (Sod 4.5 gm/ Dextrose) 100 mls @ 200 mls/hr IVPB Q8H-IV [facility] Last Admin: 05/21/17 02:17 Dose: 200 mls/hr Insulin Aspart (Novolog Vial Sliding Scale -) 1 vial SQ ACHS [facility] PRN Reason: Protocol Last Admin: 05/21/17 06:36 Dose: Not Given Levothyroxine Sodium (Synthroid -) 50 mcg PO AM [facility] Last Admin: 05/21/17 06:37 Dose: 50 mcg Montelukast Sodium (Singulair -) 10 mg PO HS [facility] Last Admin: 05/20/17 21:41 Dose: 10 mg Oxycodone HCl (Roxicodone -) 5 mg PO Q12H PRN Last Admin: 05/20/17 21:48 Dose: 5 mg Polyethylene Glycol (Miralax (For Daily Use) -) 17 gm PO DAILY [facility] Last Admin: 05/20/17 11:00 Dose: Not Given Potassium Chloride (K-Dur -) 20 meq PO QID [facility] Last Admin: 05/20/17 21:41 Dose: 20 meq - Objective Vital Signs: Vital Signs Temperature 97.7 F 05/21/17 08:00 Pulse Rate 85 05/21/17 08:00 Respiratory Rate 18 05/21/17 08:00 Blood Pressure 133/65 05/21/17 08:00 O2 Sat by Pulse Oximetry (%) 95 05/20/17 21:00 Neck: Yes: Supple Cardiovascular: Yes: Pulse Irregular, S1, S2 Respiratory: Yes: Diminished Gastrointestinal: Yes: Normal Bowel Sounds, Soft, Abdomen, Obese. No: Tenderness Edema: Yes Labs: CBC, BMP 05/21/17 08:00 05/21/17 08:00 INR, PTT INR 1.67 (0.82-1.09) H 05/21/17 08:00 Problem List - Problems (1) Atrial fibrillation Code(s): I48.91 - UNSPECIFIED ATRIAL FIBRILLATION Qualifiers: Atrial fibrillation type: chronic Qualified Code(s): I48.2 - Chronic atrial fibrillation (2) Chronic venous stasis dermatitis of both lower extremities Code(s): I87.2 - VENOUS INSUFFICIENCY (CHRONIC) (PERIPHERAL) (3) Morbid obesity Code(s): E66.01 - MORBID (SEVERE) OBESITY DUE TO EXCESS CALORIES (4) Osteomyelitis Code(s): M86.9 - OSTEOMYELITIS, UNSPECIFIED Qualifiers: Osteomyelitis type: unspecified type Osteomyelitis location: foot Laterality: right Qualified Code(s): M86.9 - Osteomyelitis, unspecified (5) COPD (chronic obstructive pulmonary disease) Code(s): J44.9 - CHRONIC OBSTRUCTIVE PULMONARY DISEASE, UNSPECIFIED Qualifiers : COPD type: COPD with acute exacerbation Qualified Code(s): J44.1 - Chronic obstructive pulmonary disease with (acute) exacerbation (6) Diabetes Code(s): E11.9 - TYPE 2 DIABETES MELLITUS WITHOUT COMPLICATIONS Qualifiers: Diabetes mellitus type: type 2 Diabetes mellitus complication status: with hyperglycemia Diabetes mellitus care home insulin use: without care home use Qualified Code(s): E11.65 - Type 2 diabetes mellitus with hyperglycemia; 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 Right toe osteomyelitis for amputation 2. Coronary artery disease 3. Hypertension/hypertensive cardiovascular disease 4. Persistent atrial fibrillation 5. COPD 6. Morbid obesity 7. Type 2 diabetes mellitus 8. Acute on chronic LV failure - currently compensated 9. History of DVT 10. Chronic venous stasis 11. Possible metallic object in the right foot, etiology to be determined - possible pin that is embedded in the foot PLAN: 1. No absolute contraindication in proceeding with toe amputation in view of absence of ischemic symptoms, decompensated congestive heart failure or malignant arrhythmia. Post operative ECG and cardiac enzyme recommended. 2. Continue Cardizem as tolerated. Continue Digoxin with caution 3. Continue antibiotic coverage as per ID 4. Continue diuretics as tolerated Further plans are to follow Matt Ferraro MD
[2017-05-21] MEDS: DIGOXIN 0.125 MG TABLET (FP) PO SCH (10:27)
[2017-05-21] MEDS: POTASSIUM CHLORIDE TABS 20 MEQ TABLET.ER (FP) PO SCH ×4 (10:27→21:40)
[2017-05-21] MEDS: FUROSEMIDE 40 MG TABLET (FP) PO SCH (10:27)
[2017-05-21] MEDS: ALLOPURINOL 100 MG TABLET (FP) PO SCH (10:28)
[2017-05-21] MEDS: GABAPENTIN 100 MG CAPSULE (FP) PO SCH ×2 (10:28→21:40)
[2017-05-21] MEDS: POLYETHYLENE GLYCOL 3350 119 GM BTL PO SCH (10:29)
[2017-05-21] MEDS: ACLIDINIUM BROMIDE 400 MCG/INH AERO.POWD IH SCH ×2 (10:43→21:42)
[2017-05-21] MEDS: VANCOMYCIN 1,500 MG in DEXTROSE 5%-WATER - 500 ML IVPB SCH (11:59)
[2017-05-21] MEDS: MONTELUKAST NA 10 MG TABLET PO SCH (21:40)
[2017-05-22] MEDS: oxyCODONE HCL 5 MG TABLET PO PRN ×2 (00:50→22:13)
[2017-05-22] MEDS ORDERED: PIPERACILLIN/TAZOBACTAM 4.5 GM VIAL IVPB ONE ×3 (01:04→17:41)
[2017-05-22] MEDS ORDERED: DEXTROSE 5%-WATER 100 ML IVPB ONE ×3 (01:05→17:41)
[2017-05-22] MEDS: PIPERACILLIN/TAZOB 4.5 GM 4.5 GM in DEXTROSE 5%-WATER 100 ML IVPB SCH ×3 (01:17→17:49)
[2017-05-22] MEDS ORDERED: PT OWN MED DRAWER 7, Y5N ONE ×2 (06:09→16:35)
[2017-05-22] MEDS: INSULIN SLIDING SCALE (NOVOLOG) 1 VIAL SQ SCH ×4 (06:44→22:13)
[2017-05-22] MEDS: LEVOTHYROXINE NA 50 MCG TABLET (FP) PO SCH (06:45)
[2017-05-22] MEDS: GLIMEPIRIDE 2 MG TABLET (FP) PO SCH ×2 (06:45→16:56)
[2017-05-22 07:29] LABS: EOSINOPHIL 4.3 % (0-4.5); MCH 26.3 pg (25.7-33.7); MCHC 31.7 g/dl (32.0-36.0); MEAN CELL VOLUME 82.8 fl (80-96); MEAN PLT VOLUME 7.6 fl (7.5-11.1); NEUTROPHILS 69.6 % (42.8-82.8); PLATELET COUNT 309 K/MM3 (134-434); RDW 19.6 % (11.6-15.6)
[2017-05-22 07:45] LABS: INR 1.6 (0.82-1.09); PROTHROMBIN TIME (PATIENT) 17.8 SEC (9.98-11.88)
[2017-05-22] MEDS ORDERED: HEPARIN NA (PORCINE) 5,000 UNITS/ML 1ML VIAL IVPUSH PRN ×2 (08:44)
--- NOTE | 2017-05-22 08:55 | PN ---
Progress Note (short form) - Note Progress Note: Patient will have amputation 2nd toe right foot Friday AM. As she is in A. Fib and INR now down to 1.6 I will Rx with IV heparin today till 10PM. As per Cardiology will order EKG and cardiac enzymes in RR. No complaints from patient. On Eam: Vital Signs Temp 97.7 F 05/22/17 06:03 Pulse 81 05/22/17 06:03 Resp 20 05/22/17 06:03 BP 135/57 05/22/17 06:03 Pulse Ox 94 L 05/21/17 21:00 Intake & Output 05/21/17 05/21/17 05/22/17 11:59 23:59 11:59 Intake Total 750 1250 Balance 750 1250 Intake: IVPB 200 500 Oral 550 750 Other: Voiding Method Toilet Toilet # Unmeasured Voids Void 2 2 Bowel Movement No No Alert Chest: Decreased breath sounds; rare wheeze Cor : Irregular Abd: Pannus Ext: Stasis changes Less edema and erythema 2nd toe right foot Abnormal Lab Results 05/21/17 05/21/17 05/21/17 08:00 08:00 08:00 MCHC 31.3 L RDW 19.5 H INR 1.67 H Anion Gap 7 L BUN 21 H Magnesium 2.5 H D 05/22/17 05/22/17 06:30 06:30 MCHC 31.7 L RDW 19.6 H INR 1.60 H Anion Gap BUN Magnesium IMP: Osteomyelitis 2nd Toe right foot A, Fib Asthmatic Bronchitis NIDDM Hypertension Plan: As described above. Problem List - Problems (1) Osteomyelitis Code(s): M86.9 - OSTEOMYELITIS, UNSPECIFIED Qualifiers: Osteomyelitis type: unspecified type Osteomyelitis location: foot Laterality: right Qualified Code(s): M86.9 - Osteomyelitis, unspecified (2) Atrial fibrillation Code(s): I48.91 - UNSPECIFIED ATRIAL FIBRILLATION Qualifiers: Atrial fibrillation type: chronic Qualified Code(s): I48.2 - Chronic atrial fibrillation (3) Cellulitis Code(s): L03.90 - CELLULITIS, UNSPECIFIED Qualifiers: Site of cellulitis: extremity Site of cellulitis of extremity: toe Laterality: right Qualified Code(s): L03.031 - Cellulitis of right toe (4) Chronic venous stasis dermatitis of both lower extremities Code(s): I87.2 - VENOUS INSUFFICIENCY (CHRONIC) (PERIPHERAL) (5) COPD (chronic obstructive pulmonary disease) Code(s): J44.9 - CHRONIC OBSTRUCTIVE PULMONARY DISEASE, UNSPECIFIED Qualifiers : COPD type: COPD with acute exacerbation Qualified Code(s): J44.1 - Chronic obstructive pulmonary disease with (acute) exacerbation (6) Diabetes Code(s): E11.9 - TYPE 2 DIABETES MELLITUS WITHOUT COMPLICATIONS Qualifiers: Diabetes mellitus type: type 2 Diabetes mellitus complication status: with hyperglycemia Diabetes mellitus [facility] insulin use: without [facility] use Qualified Code(s): E11.65 - Type 2 diabetes mellitus with hyperglycemia; 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
[2017-05-22] MEDS: POTASSIUM CHLORIDE TABS 20 MEQ TABLET.ER (FP) PO SCH ×4 (10:07→22:06)
[2017-05-22] MEDS: DIGOXIN 0.125 MG TABLET (FP) PO SCH (10:07)
[2017-05-22] MEDS: GABAPENTIN 100 MG CAPSULE (FP) PO SCH ×2 (10:08→22:06)
[2017-05-22] MEDS: ALLOPURINOL 100 MG TABLET (FP) PO SCH (10:08)
[2017-05-22] MEDS: FUROSEMIDE 40 MG TABLET (FP) PO SCH (10:08)
[2017-05-22] MEDS: ACLIDINIUM BROMIDE 400 MCG/INH AERO.POWD IH SCH ×2 (10:10→22:14)
[2017-05-22] MEDS: VANCOMYCIN 1,500 MG in DEXTROSE 5%-WATER - 500 ML IVPB SCH (10:30)
[2017-05-22] MEDS: HEPARIN - 25,000 UNIT in SODIUM CHLORIDE 495 ML IV SCH ×2 (11:14→18:37)
[2017-05-22] MEDS: POLYETHYLENE GLYCOL 3350 119 GM BTL PO SCH (11:14)
--- NOTE | 2017-05-22 11:28 | PN ---
Progress Note, Physician Chief Complaint: Not in distress History of Present Illness: Patient was seen and examined. Awake and alert. Chart was reviewed Denies chest pain, SOB or palpitations - Current Medication List Current Medications: Active Medications Acetaminophen (Tylenol -) 650 mg PO Q6H PRN PRN Reason: PAIN Last Admin: 05/17/17 22:19 Dose: 650 mg Aclidinium [place] (Tudorza -) 1 puff IH BID [facility] Last Admin: 05/22/17 10:10 Dose: 1 puff Albuterol Sulfate (Ventolin Hfa Inhaler -) 2 puff IH Q6H PRN PRN Reason: SHORTNESS OF BREATH Last Admin: 05/17/17 00:55 Dose: 2 puff Allopurinol (Zyloprim -) 100 mg PO DAILY [facility] Last Admin: 05/22/17 10:08 Dose: 100 mg Digoxin (Lanoxin -) 0.125 mg PO DAILY [facility] Last Admin: 05/22/17 10:07 Dose: 0.125 mg Diltiazem HCl (Cardizem Cd -) 180 mg PO DAILY [facility] Last Admin: 05/22/17 10:08 Dose: 180 mg Docusate Sodium (Colace -) 100 mg PO BID PRN PRN Reason: CONSTIPATION Last Admin: 05/18/17 11:09 Dose: 100 mg Furosemide (Lasix -) 80 mg PO DAILY [facility] Last Admin: 05/22/17 10:08 Dose: 80 mg Gabapentin (Neurontin -) 100 mg PO BID [facility] Last Admin: 05/22/17 10:08 Dose: 100 mg Glimepiride (Amaryl -) 2 mg PO BIDAC [facility] Last Admin: 05/22/17 06:45 Dose: 2 mg Guaifenesin (Robitussin Dm -) 5 ml PO Q6H PRN Last Admin: 05/18/17 11:09 Dose: 5 ml Heparin Sodium (Porcine) (Heparin -) 1,000 unit IVPUSH PRN PRN PRN Reason: Heparin Heparin Sodium (Porcine) (Heparin -) 5,000 unit IVPUSH PRN PRN PRN Reason: Heparin Piperacillin Sod/Tazobactam (Sod 4.5 gm/ Dextrose) 100 mls @ 200 mls/hr IVPB Q8H-IV [facility] Last Admin: 05/22/17 01:17 Dose: 200 mls/hr Heparin Sodium (Porcine) 25, (000 unit/ Sodium Chloride) 500 mls @ 20 mls/hr IV TITR [facility]; 1,000 UNIT/HR PRN Reason: Protocol Last Admin: 05/22/17 11:14 Dose: 20 mls/hr Insulin Aspart (Novolog Vial Sliding Scale -) 1 vial SQ ACHS [facility] PRN Reason: Protocol Last Admin: 05/22/17 06:44 Dose: Not Given Levothyroxine Sodium (Synthroid -) 50 mcg PO AM [facility] Last Admin: 05/22/17 06:45 Dose: 50 mcg Montelukast Sodium (Singulair -) 10 mg PO HS [facility] Last Admin: 05/21/17 21:40 Dose: 10 mg Oxycodone HCl (Roxicodone -) 5 mg PO Q12H PRN Last Admin: 05/22/17 00:50 Dose: 5 mg Polyethylene Glycol (Miralax (For Daily Use) -) 17 gm PO DAILY [facility] Last Admin: 05/22/17 11:14 Dose: 17 grams Potassium Chloride (K-Dur -) 20 meq PO QID [facility] Last Admin: 05/22/17 10:07 Dose: 20 meq - Objective Vital Signs: Vital Signs Temperature 97.8 F 05/22/17 09:06 Pulse Rate 85 05/22/17 10:07 Respiratory Rate 20 05/22/17 09:06 Blood Pressure 134/71 05/22/17 09:06 O2 Sat by Pulse Oximetry (%) 94 L 05/21/17 21:00 Neck: Yes: Supple Cardiovascular: Yes: Pulse Irregular, S1, S2 Respiratory: Yes: Diminished Gastrointestinal: Yes: Normal Bowel Sounds, Soft, Abdomen, Obese. No: Tenderness Edema: Yes Integumentary: Yes: Venous Stasis Changes Labs: CBC, BMP 05/22/17 06:30 05/21/17 08:00 INR, PTT INR 1.60 (0.82-1.09) H 05/22/17 06:30 Problem List - Problems (1) Atrial fibrillation Code(s): I48.91 - UNSPECIFIED ATRIAL FIBRILLATION Qualifiers: Atrial fibrillation type: chronic Qualified Code(s): I48.2 - Chronic atrial fibrillation (2) Chronic venous stasis dermatitis of both lower extremities Code(s): I87.2 - VENOUS INSUFFICIENCY (CHRONIC) (PERIPHERAL) (3) Morbid obesity Code(s): E66.01 - MORBID (SEVERE) OBESITY DUE TO EXCESS CALORIES (4) Osteomyelitis Code(s): M86.9 - OSTEOMYELITIS, UNSPECIFIED Qualifiers: Osteomyelitis type: unspecified type Osteomyelitis location: foot Laterality: right Qualified Code(s): M86.9 - Osteomyelitis, unspecified (5) COPD (chronic obstructive pulmonary disease) Code(s): J44.9 - CHRONIC OBSTRUCTIVE PULMONARY DISEASE, UNSPECIFIED Qualifiers : COPD type: COPD with acute exacerbation Qualified Code(s): J44.1 - Chronic obstructive pulmonary disease with (acute) exacerbation (6) Diabetes Code(s): E11.9 - TYPE 2 DIABETES MELLITUS WITHOUT COMPLICATIONS Qualifiers: Diabetes mellitus type: type 2 Diabetes mellitus complication status: with hyperglycemia Diabetes mellitus snout puller insulin use: without shelter use Qualified Code(s): E11.65 - Type 2 diabetes mellitus with hyperglycemia; Z79.4 - jail (current) use of insulin (7) Diastolic dysfunction without heart failure Code(s): I51.9 - HEART DISEASE, UNSPECIFIED (8) HTN (hypertension) Code(s): I10 - ESSENTIAL (PRIMARY) HYPERTENSION Qualifiers: Hypertension type: essential hypertension Qualified Code(s): I10 - Essential (primary) hypertension Assessment/Plan 1. Right toe osteomyelitis for amputation 2. Coronary artery disease 3. Hypertension/hypertensive cardiovascular disease 4. Persistent atrial fibrillation 5. COPD 6. Morbid obesity 7. Type 2 diabetes mellitus 8. Acute on chronic LV failure - currently compensated 9. History of DVT 10. Chronic venous stasis 11. Possible metallic object in the right foot, etiology to be determined - possible pin that is embedded in the foot PLAN: 1. No absolute contraindication in proceeding with toe amputation in view of absence of ischemic symptoms, decompensated congestive heart failure or malignant arrhythmia. Post operative ECG and cardiac enzyme recommended. 2. Continue Cardizem as tolerated. Continue Digoxin with caution. Agree with Heparin drip for bridging as INR is less than 2 3. Continue antibiotic coverage as per ID 4. Continue diuretics as tolerated 5. Surgery tentatively tomorrow Further plans are to follow. Matt Ferraro MD
--- NOTE | 2017-05-22 12:36 | PN ---
Progress Note (short form) - Note Progress Note: Podiatry: SEen/evaluated at bedside, NAD. Denies F/V/N/C/SOB/CP. AFebrile, VSS. A bit nervous about planned procedure, however clear about plan. Off coumadin. LUIS: R foot: 2nd toe grossly edematous with probing ulcer distal tuft. No soft tissue crepitus, no purulence, no fluctuance, no streaking cellulitis. Minimal tenderness to palpation. WBC: 10.0 INR: 1.6 Blood Cx: no growth Bone Scan: (+) OM 2nd digit Imp: 82 year old DM F with R 2nd digit ulcer and osteomyelitis 1. IV abx per ID 2. Cardiology clearance noted and appreciated 3. Can proceed with second toe amputation now that INR stabilized. Risks, benefits and alternatives to sx discussed at length with patient and her son. Will proceed with surgery tomorrow am. 4. NPO midnight. 5. On Heparin drip now, please stop this evening prior to surgery. 6. Will follow. Mg Ayoub DPM
--- NOTE | 2017-05-22 14:34 | PN ---
Progress Note, Physician History of Present Illness: OOB in chair No c/o toe pain Afebrile WBC WNL BC (-) - Current Medication List Current Medications: Active Medications Acetaminophen (Tylenol -) 650 mg PO Q6H PRN PRN Reason: PAIN Last Admin: 05/17/17 22:19 Dose: 650 mg Aclidinium [place] (Tudorza -) 1 puff IH BID [facility] Last Admin: 05/22/17 10:10 Dose: 1 puff Albuterol Sulfate (Ventolin Hfa Inhaler -) 2 puff IH Q6H PRN PRN Reason: SHORTNESS OF BREATH Last Admin: 05/17/17 00:55 Dose: 2 puff Allopurinol (Zyloprim -) 100 mg PO DAILY [facility] Last Admin: 05/22/17 10:08 Dose: 100 mg Digoxin (Lanoxin -) 0.125 mg PO DAILY [facility] Last Admin: 05/22/17 10:07 Dose: 0.125 mg Diltiazem HCl (Cardizem Cd -) 180 mg PO DAILY [facility] Last Admin: 05/22/17 10:08 Dose: 180 mg Docusate Sodium (Colace -) 100 mg PO BID PRN PRN Reason: CONSTIPATION Last Admin: 05/18/17 11:09 Dose: 100 mg Furosemide (Lasix -) 80 mg PO DAILY [facility] Last Admin: 05/22/17 10:08 Dose: 80 mg Gabapentin (Neurontin -) 100 mg PO BID [facility] Last Admin: 05/22/17 10:08 Dose: 100 mg Glimepiride (Amaryl -) 2 mg PO BIDAC [facility] Last Admin: 05/22/17 06:45 Dose: 2 mg Guaifenesin (Robitussin Dm -) 5 ml PO Q6H PRN Last Admin: 05/18/17 11:09 Dose: 5 ml Heparin Sodium (Porcine) (Heparin -) 1,000 unit IVPUSH PRN PRN PRN Reason: Heparin Heparin Sodium (Porcine) (Heparin -) 5,000 unit IVPUSH PRN PRN PRN Reason: Heparin Piperacillin Sod/Tazobactam (Sod 4.5 gm/ Dextrose) 100 mls @ 200 mls/hr IVPB Q8H-IV [facility] Last Admin: 05/22/17 12:13 Dose: 200 mls/hr Heparin Sodium (Porcine) 25, (000 unit/ Sodium Chloride) 500 mls @ 20 mls/hr IV TITR [facility]; 1,000 UNIT/HR PRN Reason: Protocol Last Admin: 05/22/17 11:14 Dose: 20 mls/hr Insulin Aspart (Novolog Vial Sliding Scale -) 1 vial SQ ACHS [facility] PRN Reason: Protocol Last Admin: 05/22/17 11:30 Dose: Not Given Levothyroxine Sodium (Synthroid -) 50 mcg PO AM [facility] Last Admin: 05/22/17 06:45 Dose: 50 mcg Montelukast Sodium (Singulair -) 10 mg PO HS [facility] Last Admin: 05/21/17 21:40 Dose: 10 mg Oxycodone HCl (Roxicodone -) 5 mg PO Q12H PRN Last Admin: 05/22/17 00:50 Dose: 5 mg Polyethylene Glycol (Miralax (For Daily Use) -) 17 gm PO DAILY [facility] Last Admin: 05/22/17 11:14 Dose: 17 grams Potassium Chloride (K-Dur -) 20 meq PO QID [facility] Last Admin: 05/22/17 13:43 Dose: 20 meq - Objective Vital Signs: Vital Signs Temperature 98.3 F 05/22/17 14:28 Pulse Rate 85 05/22/17 14:28 Respiratory Rate 20 05/22/17 09:06 Blood Pressure 129/64 05/22/17 14:28 O2 Sat by Pulse Oximetry (%) 94 L 05/22/17 09:00 Constitutional: Yes: No Distress, Obese Eyes: Yes: Conjunctiva Clear Cardiovascular: Yes: Regular Rate and Rhythm, S1, S2 Respiratory: Yes: CTA Bilaterally Gastrointestinal: Yes: Normal Bowel Sounds, Soft, Abdomen, Obese Extremities: Yes: Other (2nd toe swollen) Labs: CBC, BMP 05/22/17 06:30 05/21/17 08:00 INR, PTT INR 1.60 (0.82-1.09) H 05/22/17 06:30 Assessment/Plan Osteomyelitis, 2nd toe Chronic venous stasis Morbid obesity Continue zosyn/ vancomycin For toe amputation am
[2017-05-22] MEDS ORDERED: VANCOMYCIN 1,500 MG in DEXTROSE 5%-WATER - 500 ML IVPB SCH (14:45)
--- NOTE | 2017-05-22 21:42 | HOSP ---
Physical Examination Vital Signs: Vital Signs Temperature 98.3 F 05/22/17 14:28 Pulse Rate 85 05/22/17 14:28 Respiratory Rate 20 05/22/17 09:06 Blood Pressure 129/64 05/22/17 14:28 O2 Sat by Pulse Oximetry (%) 94 L 05/22/17 09:00 Labs: CBC, BMP 05/22/17 06:30 05/21/17 08:00 Hospitalist Encounter Assessment: Paged by RN. Patient to stop heparin drip at 22:[address] Storey's note. Order was placed to stop heparin at 22:00 for procedure tomorrow. Visit type - Emergency Visit Emergency Visit: Yes ED Registration Date: 05/15/17 Care time: The patient presented to the Emergency Department on the above date and was hospitalized for further evaluation of their emergent condition. - New Patient This patient is new to me today: Yes Date on this admission: 05/22/17 - Critical Care Critical Care patient: No
[2017-05-22] MEDS: MONTELUKAST NA 10 MG TABLET PO SCH (22:06)
[2017-05-23] MEDS ORDERED: DEXTROSE 5%-WATER 100 ML IVPB ONE ×3 (02:34→16:55)
[2017-05-23] MEDS ORDERED: PIPERACILLIN/TAZOBACTAM 4.5 GM VIAL IVPB ONE ×3 (02:34→16:55)
[2017-05-23] MEDS: PIPERACILLIN/TAZOB 4.5 GM 4.5 GM in DEXTROSE 5%-WATER 100 ML IVPB SCH ×3 (02:42→17:07)
[2017-05-23] MEDS: LEVOTHYROXINE NA 50 MCG TABLET (FP) PO SCH (06:43)
[2017-05-23] MEDS: GLIMEPIRIDE 2 MG TABLET (FP) PO SCH ×2 (06:43→17:07)
[2017-05-23] MEDS: INSULIN SLIDING SCALE (NOVOLOG) 1 VIAL SQ SCH ×4 (06:43→21:15)
[2017-05-23] MEDS ORDERED: BUPIVACAINE HCL/PF 0.5% (5MG/ML) 10 ML VIAL ONE (07:25)
[2017-05-23] MEDS ORDERED: LIDOCAINE HCL 2% (20ML MULTI-DOSE VIAL) NR ONE (07:25)
[2017-05-23] MEDS ORDERED: LIDOCAINE HCL/PF 2% SDV 5ML VIAL ONE (07:41)
[2017-05-23] MEDS ORDERED: MIDAZOLAM HCL 2 MG/2 ML SINGLE DOSE VIAL ONE (07:41)
[2017-05-23] MEDS ORDERED: PROPOFOL 20 ML ONE (07:41)
[2017-05-23] MEDS ORDERED: LIDOCAINE HCL 2% (50ML VIAL) INF ONE (07:50)
--- NOTE | 2017-05-23 08:37 | OP ---
Operative Note - Note: Operative Date: 05/23/17 Pre-Operative Diagnosis: R 2nd toe osteomyelitis Operation: R 2nd toe amputation Findings: Acute osteomyelitis 2nd digit Post-Operative Diagnosis: Same as Pre-op Surgeon: Pastor Ayoub Anesthesia: Local, MAC Specimens Removed: 2nd toe, right foot; Bone right foot Estimated Blood Loss (mls): 25 Operative Report Dictated: Yes
[2017-05-23] MEDS ORDERED: ONDANSETRON 4 MG/2 ML VIAL IVPUSH PRN (08:41)
[2017-05-23] MEDS ORDERED: LACTATED RINGERS SOLUTION 1,000 ML IV SCH (08:45)
[2017-05-23] MEDS ORDERED: ALBUTEROL SO4 6.7 GM HFA INHALER IH PRN (09:17)
[2017-05-23] MEDS ORDERED: DOCUSATE SODIUM 100 MG CAPSULE (FP) PO PRN (09:17)
[2017-05-23] MEDS ORDERED: ACETAMINOPHEN 325 MG TABLET (FP) PO PRN (09:17)
[2017-05-23] MEDS ORDERED: guaiFENesin/D-METHORPHAN HB 10 ML UNIT-DOSE CUPS PO PRN (09:17)
[2017-05-23] MEDS ORDERED: oxyCODONE HCL 5 MG TABLET PO PRN (09:17)
--- NOTE | 2017-05-23 09:19 | OP ---
DATE OF OPERATION: 05/23/2017 PREOPERATIVE DIAGNOSIS: Right second toe osteomyelitis. POSTOPERATIVE DIAGNOSIS: Right second toe osteomyelitis. PROCEDURE: Right second toe amputation with second metatarsal head resection. SURGEON: Pastor Ayoub DPM [employer] OPERATOR: Dr. Kuhn, PGY-2 [facility] ANESTHESIA: Local with IV sedation. HEMOSTASIS: Surgical dissection. ESTIMATED BLOOD LOSS: 25 mL PATHOLOGY: Right second toe and right second metatarsal. COMPLICATIONS: None. DESCRIPTION OF PROCEDURE: The patient was brought to the operating room and placed on the operating table in the supine position. I applied a pneumatic ankle tourniquet. However, I elected to not use tourniquet during the course of the procedure. Following the induction of IV sedation, local anesthesia was achieved utilizing 10 mL of 2% lidocaine plain. The right foot was then scrubbed, prepped, and draped in the usual aseptic fashion. Attention was directed to the right second toe where a distal tuft ulcer probing to bone with osteomyelitis confirmed on bone scan was visualized and appreciated. I began by performing a 3-cm linear longitudinal incision along the second metatarsophalangeal joint. The incision was carried circumferentially about the second toe. The circumferential incision was deepened to bone using sharp dissection, taking care to preserve vital neural and vascular structures. All bleeders were cauterized and ligated as appropriate. Next, the second digit was disarticulated at the level of the second metatarsophalangeal joint. It was removed and sent to Pathology for further analysis. Next, an appropriate soft tissue culture was obtained. I then performed a dorsal linear capsulotomy about the second metatarsal head. The sagittal saw was used to resect the second metatarsal head which was sent both for bone culture and bone pathology proximally. The surgical site was copiously irrigated with sterile saline. The surgical site was packed with 1/4-inch plain packing, exiting dorsal centrally. The surgical site was then coapted and maintained utilizing 3-0 nylon in a simple interrupted suture fashion. Following the conclusion of the procedure, the surgical site was covered with Xeroform, and a compressive dressing was applied to the right foot, consisting of sterile gauze, Kathryn, abdominal pad, Kerlix, and an Rajan wrap. The patient tolerated the procedure and anesthesia well, without complications. She was transferred from the operating room to the recovery unit with vital signs stable and neural vasculature intact to the right foot. LEIGHANN ARREOLA/[id number] cc: [facility] Podiatry
[2017-05-23] MEDS ORDERED: VANCOMYCIN 1,500 MG in DEXTROSE 5%-WATER - 500 ML IVPB SCH (10:00)
[2017-05-23] MEDS ORDERED: PT OWN MED DRAWER 7, Y5N ONE ×3 (10:11→20:40)
[2017-05-23] MEDS: POTASSIUM CHLORIDE TABS 20 MEQ TABLET.ER (FP) PO SCH ×4 (10:23→21:14)
[2017-05-23] MEDS: GABAPENTIN 100 MG CAPSULE (FP) PO SCH ×2 (10:23→21:14)
[2017-05-23] MEDS: FUROSEMIDE 40 MG TABLET (FP) PO SCH (10:23)
[2017-05-23] MEDS: ALLOPURINOL 100 MG TABLET (FP) PO SCH (10:23)
[2017-05-23] MEDS: DIGOXIN 0.125 MG TABLET (FP) PO SCH (10:24)
[2017-05-23] MEDS: POLYETHYLENE GLYCOL 3350 119 GM BTL PO SCH (10:25)
[2017-05-23] MEDS: oxyCODONE HCL 5 MG TABLET PO PRN (10:25)
[2017-05-23] MEDS: VANCOMYCIN 1,500 MG in DEXTROSE 5%-WATER - 500 ML IVPB SCH (10:26)
[2017-05-23] MEDS ORDERED: HEPARIN NA (PORCINE) 5,000 UNITS/ML 1ML VIAL IVPUSH PRN (10:55)
[2017-05-23] MEDS: ACLIDINIUM BROMIDE 400 MCG/INH AERO.POWD IH SCH ×2 (11:10→21:16)
[2017-05-23] MEDS ORDERED: INSULIN (NOVOLOG) ASPART 100 UNITS/ML 10ML VIAL ONE (11:19)
[2017-05-23 12:34] LABS: INR 1.36 (0.82-1.09)
--- NOTE | 2017-05-23 12:47 | PN ---
Progress Note, Physician History of Present Illness: S/P amputation R 2nd toe No c/o pain No fever/ chills - Current Medication List Current Medications: Active Medications Acetaminophen (Tylenol -) 650 mg PO Q6H PRN PRN Reason: PAIN Aclidinium [place] (Tudorza -) 1 puff IH BID [facility] Last Admin: 05/23/17 11:10 Dose: 1 puff Albuterol Sulfate (Ventolin Hfa Inhaler -) 2 puff IH Q6H PRN PRN Reason: SHORTNESS OF BREATH Allopurinol (Zyloprim -) 100 mg PO DAILY [facility] Last Admin: 05/23/17 10:23 Dose: 100 mg Digoxin (Lanoxin -) 0.125 mg PO DAILY [facility] Last Admin: 05/23/17 10:24 Dose: 0.125 mg Diltiazem HCl (Cardizem Cd -) 180 mg PO DAILY [facility] Last Admin: 05/23/17 10:24 Dose: 180 mg Docusate Sodium (Colace -) 100 mg PO BID PRN PRN Reason: CONSTIPATION Fentanyl (Sublimaze Injection -) 25 mcg IVPUSH [id number] PRN PRN Reason: PAIN Stop: 05/26/17 08:42 Furosemide (Lasix -) 80 mg PO DAILY [facility] Last Admin: 05/23/17 10:23 Dose: 80 mg Gabapentin (Neurontin -) 100 mg PO BID [facility] Last Admin: 05/23/17 10:23 Dose: 100 mg [facility] Guaifenesin (Robitussin Dm -) 5 ml PO Q6H PRN Heparin Sodium (Porcine) (Heparin -) 1,000 unit IVPUSH PRN PRN PRN Reason: Heparin Heparin Sodium (Porcine) (Heparin -) 5,000 unit IVPUSH PRN PRN PRN Reason: Heparin Lactated Ringer's (Lactated Ringers Solution) 1,000 mls @ 75 mls/hr IV ASDIR [facility] Stop: 05/23/17 16:00 Last Admin: 05/23/17 10:21 Dose: 75 mls/hr Piperacillin Sod/Tazobactam (Sod 4.5 gm/ Dextrose) 100 mls @ 200 mls/hr IVPB Q8H-IV [facility] Last Admin: 05/23/17 10:22 Dose: 200 mls/hr Vancomycin HCl 1,500 mg/ (Dextrose) 500 mls @ 250 mls/hr IVPB DAILY [facility] Last Admin: 05/23/17 10:26 Dose: 250 mls/hr Heparin Sodium (Porcine) 25, (000 unit/ Sodium Chloride) 500 mls @ 20 mls/hr IV TITR [facility]; 1,000 UNIT/HR PRN Reason: Protocol Insulin Aspart (Novolog Vial Sliding Scale -) 1 vial SQ ACHS [facility] PRN Reason: Protocol Last Admin: 05/23/17 11:49 Dose: Not Given Levothyroxine Sodium (Synthroid -) 50 mcg PO AM [facility] Montelukast Sodium (Singulair -) 10 mg PO HS [facility] Ondansetron HCl (Zofran Injection) 4 mg IVPUSH Q6H PRN PRN Reason: NAUSEA AND/OR VOMITING Stop: 05/23/17 14:42 Oxycodone HCl (Roxicodone -) 5 mg PO Q4H PRN PRN Reason: PAIN LEVEL 1-5 Last Admin: 05/23/17 10:25 Dose: 5 mg Oxycodone HCl (Roxicodone -) 5 mg PO Q12H PRN Polyethylene Glycol (Miralax (For Daily Use) -) 17 gm PO DAILY [facility] Last Admin: 05/23/17 10:25 Dose: Not Given Potassium Chloride (K-Dur -) 20 meq PO QID [facility] Last Admin: 05/23/17 10:23 Dose: 20 meq Warfarin Sodium (Coumadin -) 4 mg PO DAILY@1800 [facility] - Objective Vital Signs: Vital Signs Temperature 97.8 F 05/23/17 10:36 Pulse Rate 86 05/23/17 10:36 Respiratory Rate 18 05/23/17 10:36 Blood Pressure 135/67 05/23/17 10:36 O2 Sat by Pulse Oximetry (%) 98 05/23/17 11:00 Constitutional: Yes: No Distress, Obese Cardiovascular: Yes: Regular Rate and Rhythm, S1, S2 Respiratory: Yes: CTA Bilaterally Gastrointestinal: Yes: Normal Bowel Sounds, Soft, Abdomen, Obese. No: Tenderness Extremities: Yes: Other (post op dressing in place R foot) Edema: Yes Edema: LLE: 3+, RLE: 3+ Integumentary: Yes: Venous Stasis Changes Labs: CBC, BMP 05/22/17 06:30 05/21/17 08:00 INR, PTT INR 1.36 (0.82-1.09) H 05/23/17 11:50 Assessment/Plan Osteomyelitis, 2nd toe S/P amputation Chronic venous stasis Morbid obesity Continue zosyn/ vancomycin Await path If infected bone completely excised will not need alf antibiotics
--- NOTE | 2017-05-23 17:22 | PN ---
Progress Note (short form) - Note Progress Note: Patient seen and examined this morning. Had amputation of second toe right foot for osteomyelitis confirmed by nuclear scan. Due to history of atrial fibrillation will restart heparin drip 6 hours approximately after the surgery as per surgeons advice. Would start Coumadin tomorrow, as it will take several days for therapeutic levels to be reached. history of morbid obesity, asthmatic bronchitis, abdominal pannus, hypertension and diabetes mellitus. On exam: Vital Signs Temp 98.0 F 05/23/17 14:25 Pulse 90 05/23/17 14:25 Resp 18 05/23/17 10:36 BP 139/65 05/23/17 14:25 Pulse Ox 98 05/23/17 11:00 Intake & Output 05/22/17 05/23/17 05/23/17 23:59 11:59 23:59 Intake Total 9141 755 8003 Output Total 30 Balance 9638 545 1563 Intake: IV 140 300 Heparin - 25,000 Unit In 140 100 Normal Saline - 495 ml @ 1,000 UNIT/HR 20 mls/hr IV TITR [facility] Rx#: [id number] IVPB 700 600 Oral 750 0 600 Output: Urine 0 Estimated Blood Loss 30 Other: Voiding Method Toilet Toilet # Unmeasured Voids Void 2 Bowel Movement No Yes # Bowel Movements 1 1 The patient is aware and alert. Chest rare fine wheezes. Heart irregular Extremities: Right foot bandaged. Stasis changes both lower extremities. Impression: Status post amputation second toe right foot for osteomyelitis. Diabetes mellitus Atrial fibrillation Obesity. Abdominal pannus Hypertension Diabetes mellitus. Plan: Followup lab Restart Coumadin tomorrow as a will take at least 4-5 days to become therapeutic. Resume diet. Antibiotics as per ID physicians Problem List - Problems (1) Osteomyelitis Code(s): M86.9 - OSTEOMYELITIS, UNSPECIFIED Qualifiers: Osteomyelitis type: unspecified type Osteomyelitis location: foot Laterality: right Qualified Code(s): M86.9 - Osteomyelitis, unspecified (2) Atrial fibrillation Code(s): I48.91 - UNSPECIFIED ATRIAL FIBRILLATION Qualifiers: Atrial fibrillation type: chronic Qualified Code(s): I48.2 - Chronic atrial fibrillation (3) Cellulitis Code(s): L03.90 - CELLULITIS, UNSPECIFIED Qualifiers: Site of cellulitis: extremity Site of cellulitis of extremity: toe Laterality: right Qualified Code(s): L03.031 - Cellulitis of right toe (4) Chronic venous stasis dermatitis of both lower extremities Code(s): I87.2 - VENOUS INSUFFICIENCY (CHRONIC) (PERIPHERAL) (5) COPD (chronic obstructive pulmonary disease) Code(s): J44.9 - CHRONIC OBSTRUCTIVE PULMONARY DISEASE, UNSPECIFIED Qualifiers : COPD type: COPD with acute exacerbation Qualified Code(s): J44.1 - Chronic obstructive pulmonary disease with (acute) exacerbation (6) Diabetes Code(s): E11.9 - TYPE 2 DIABETES MELLITUS WITHOUT COMPLICATIONS Qualifiers: Diabetes mellitus type: type 2 Diabetes mellitus complication status: with hyperglycemia Diabetes mellitus senior care insulin use: without senior care use Qualified Code(s): E11.65 - Type 2 diabetes mellitus with hyperglycemia; Z79.4 - intermediate (current) use of insulin
[2017-05-23] MEDS: HEPARIN - 25,000 UNIT in SODIUM CHLORIDE 495 ML IV SCH (18:02)
[2017-05-23] MEDS: MONTELUKAST NA 10 MG TABLET PO SCH (21:15)
[2017-05-24] MEDS: oxyCODONE HCL 5 MG TABLET PO PRN ×2 (00:02→17:13)
[2017-05-24] MEDS ORDERED: PIPERACILLIN/TAZOBACTAM 4.5 GM VIAL IVPB ONE ×3 (00:52→17:58)
[2017-05-24] MEDS ORDERED: DEXTROSE 5%-WATER 200 ML IVPB ONE (00:53)
[2017-05-24] MEDS: HEPARIN NA (PORCINE) 5,000 UNITS/ML 1ML VIAL IVPUSH PRN ×3 (00:56→20:16)
[2017-05-24] MEDS: HEPARIN - 25,000 UNIT in SODIUM CHLORIDE 495 ML IV SCH ×5 (00:56→20:17)
[2017-05-24] MEDS: PIPERACILLIN/TAZOB 4.5 GM 4.5 GM in DEXTROSE 5%-WATER 100 ML IVPB SCH ×3 (01:21→18:02)
[2017-05-24] MEDS: LEVOTHYROXINE NA 50 MCG TABLET (FP) PO SCH (06:30)
[2017-05-24] MEDS: GLIMEPIRIDE 2 MG TABLET (FP) PO SCH ×2 (06:30→17:14)
[2017-05-24] MEDS: INSULIN SLIDING SCALE (NOVOLOG) 1 VIAL SQ SCH ×4 (06:32→21:15)
--- NOTE | 2017-05-24 08:02 | PN ---
Progress Note (short form) - Note Progress Note: Podiatry: Seen/evaluated at bedside, NAD. Pain controlled, denies F/V/N/C/SOB/CP. Afebrile, VSS. S/p R 2nd toe amputation POD # 1. LUIS: R foot: dressing C/D/I, mild strikethrough, no active bleeding. Sutures well coapted with central aspect packed open, no wound dehiscence, no purulent drainage, no fluctuance, no ascending cellulitis, no signs of active infection. Minimal tenderness to palpation. OR Culture/Path: pending Imp: 82 year old DM F with R 2nd toe osteomyelitis, s/p R 2nd toe amputation POD # 1 1. DSD R foot. Packing removed. 2. F/u OR cultures/path. 3. May need mcfp abx depending on results of cultures/path. 4. DSD R foot. 5. Partial WB R heel with surgical shoe. 6. Will follow. Mg Ayoub DPM
--- NOTE | 2017-05-24 08:54 | PN ---
Progress Note (short form) - Note Progress Note: Anesthesia Post op Pt seen and examined S:Alert and awake O: Vital Signs Temperature 97.7 F 05/24/17 06:00 Pulse Rate 100 H 05/24/17 06:00 Respiratory Rate 20 05/23/17 22:06 Blood Pressure 111/58 05/24/17 06:00 O2 Sat by Pulse Oximetry (%) 98 05/23/17 19:58 Current Active Problems Atrial fibrillation (Acute) Cellulitis (Acute) Chronic venous stasis dermatitis of both lower extremities (Acute) Hypokalemia (Acute) Morbid obesity (Acute) Osteomyelitis (Acute) s/p amputation of 2nd toe Doing well post op Continue current care Bobby Samayoa MD
[2017-05-24 09:07] LABS: BASOPHIL 1.2 % (0-2.0); EOSINOPHIL 4.5 % (0-4.5); MCHC 31.6 g/dl (32.0-36.0); MEAN CELL VOLUME 82.1 fl (80-96); MEAN PLT VOLUME 7.7 fl (7.5-11.1); NEUTROPHILS 68.1 % (42.8-82.8); PLATELET COUNT 309 K/MM3 (134-434); RDW 19.6 % (11.6-15.6); WHITE BLOOD COUNT 10.4 K/mm3 (4.0-10.0)
[2017-05-24 09:20] LABS: INR 1.39 (0.82-1.09); PROTHROMBIN TIME (PATIENT) 15.4 SEC (9.98-11.88)
[2017-05-24 09:27] LABS: ANION GAP 7 (8-16); CALCIUM 8.7 mg/dL (8.5-10.1); CO2 29 mmol/L (21-32); GLUCOSE,RANDOM 83 mg/dL (74-106)
[2017-05-24] MEDS ORDERED: PT OWN MED DRAWER 7, Y5N ONE ×2 (09:55→16:16)
[2017-05-24] MEDS ORDERED: DEXTROSE 5%-WATER 100 ML IVPB ONE ×2 (09:56→17:59)
[2017-05-24] MEDS: POTASSIUM CHLORIDE TABS 20 MEQ TABLET.ER (FP) PO SCH ×4 (10:12→21:16)
[2017-05-24] MEDS: ALLOPURINOL 100 MG TABLET (FP) PO SCH (10:13)
[2017-05-24] MEDS: GABAPENTIN 100 MG CAPSULE (FP) PO SCH ×2 (10:13→21:16)
[2017-05-24] MEDS: FUROSEMIDE 40 MG TABLET (FP) PO SCH (10:13)
[2017-05-24] MEDS: DIGOXIN 0.125 MG TABLET (FP) PO SCH (10:14)
[2017-05-24] MEDS: POLYETHYLENE GLYCOL 3350 119 GM BTL PO SCH (10:14)
[2017-05-24] MEDS: ACLIDINIUM BROMIDE 400 MCG/INH AERO.POWD IH SCH ×2 (10:17→21:17)
--- NOTE | 2017-05-24 11:31 | PN ---
Progress Note (short form) - Note Progress Note: Patient seen and examined. Chart reviewed. Currently sitting up in bed, alert and appropriate. Denies new chest discomfort and has less wheezing while at rest. Post-operative pain diminished. Medications, labs, radiologic procedures and progress notes reviewed. Selected Entries 05/23/17 05/24/17 05/24/17 22:06 06:00 10:14 Temperature 97.7 F Pulse Rate 86 Respiratory 20 Rate Blood Pressure 111/58 Laboratory Tests 05/24/17 05/24/17 05/24/17 07:30 07:30 07:30 WBC 10.4 H Hgb 10.3 L Hct 32.7 Plt Count 309 INR 1.39 H Sodium 139 Potassium 4.4 Chloride 103 Carbon Dioxide 29 BUN 21 H Creatinine 1.0 Random Glucose 83 Calcium 8.7 Chest Minimal expiratory wheezing noted Cor Irregular Abd Obese non-tender Ext Right foot bandaged Venous stasis changes Neuro No new focal deficits Assessment and Plan Right 2nd toe amputation for osteomyelitis. Doing well post-operatively Anemia 10.3/32.7 Likely multifactorial with contribution of acute/chronic disease DM Monitor AFib On iv Heparin Restart Warfarin Venous stasis Monitor HTN Stable Morbid Obesity Chronic issue Hypoalbuminemia 2.7 Likely related to acute/chronic disease as well as nutritional factors Hypokalemia Monitor COPD Monitor clinical status Hypothyroid On Rx Continue current Rx Restart warfarin
[2017-05-24] MEDS: VANCOMYCIN 1,500 MG in DEXTROSE 5%-WATER - 500 ML IVPB SCH (12:01)
[2017-05-24] MEDS ORDERED: WARFARIN NA 2 MG TABLET (UD) PO ONE (12:15)
--- NOTE | 2017-05-24 14:31 | PN ---
Progress Note, Physician History of Present Illness: No c/o foot pain No fever/ chills Tolerating antibiotics - Current Medication List Current Medications: Active Medications Acetaminophen (Tylenol -) 650 mg PO Q6H PRN PRN Reason: PAIN Aclidinium [place] (Tudorza -) 1 puff IH BID [facility] Last Admin: 05/24/17 10:17 Dose: 1 puff Albuterol Sulfate (Ventolin Hfa Inhaler -) 2 puff IH Q6H PRN PRN Reason: SHORTNESS OF BREATH Allopurinol (Zyloprim -) 100 mg PO DAILY [facility] Last Admin: 05/24/17 10:13 Dose: 100 mg Digoxin (Lanoxin -) 0.125 mg PO DAILY [facility] Last Admin: 05/24/17 10:14 Dose: 0.125 mg Diltiazem HCl (Cardizem Cd -) 180 mg PO DAILY [facility] Last Admin: 05/24/17 10:12 Dose: 180 mg Docusate Sodium (Colace -) 100 mg PO BID PRN PRN Reason: CONSTIPATION Fentanyl (Sublimaze Injection -) 25 mcg IVPUSH [id number] PRN PRN Reason: PAIN Stop: 05/26/17 08:42 Furosemide (Lasix -) 80 mg PO DAILY [facility] Last Admin: 05/24/17 10:13 Dose: 80 mg Gabapentin (Neurontin -) 100 mg PO BID [facility] Last Admin: 05/24/17 10:13 Dose: 100 mg Glimepiride (Amaryl -) 2 mg PO BIDAC [facility] Last Admin: 05/24/17 06:30 Dose: 2 mg Guaifenesin (Robitussin Dm -) 5 ml PO Q6H PRN Heparin Sodium (Porcine) (Heparin -) 1,000 unit IVPUSH PRN PRN PRN Reason: Heparin Heparin Sodium (Porcine) (Heparin -) 5,000 unit IVPUSH PRN PRN PRN Reason: Heparin Last Admin: 05/24/17 10:11 Dose: 5,000 unit Piperacillin Sod/Tazobactam (Sod 4.5 gm/ Dextrose) 100 mls @ 200 mls/hr IVPB Q8H-IV [facility] Last Admin: 05/24/17 10:12 Dose: 200 mls/hr Vancomycin HCl 1,500 mg/ (Dextrose) 500 mls @ 250 mls/hr IVPB DAILY [facility] Last Admin: 05/24/17 12:01 Dose: 250 mls/hr Heparin Sodium (Porcine) 25, (000 unit/ Sodium Chloride) 500 mls @ 20 mls/hr IV TITR [facility]; 1,000 UNIT/HR PRN Reason: Protocol Last Admin: 05/24/17 10:10 Dose: 26 mls/hr Insulin Aspart (Novolog Vial Sliding Scale -) 1 vial SQ ACHS [facility] PRN Reason: Protocol Last Admin: 05/24/17 11:49 Dose: Not Given Levothyroxine Sodium (Synthroid -) 50 mcg PO AM [facility] Last Admin: 05/24/17 06:30 Dose: 50 mcg Montelukast Sodium (Singulair -) 10 mg PO HS [facility] Last Admin: 05/23/17 21:15 Dose: 10 mg Oxycodone HCl (Roxicodone -) 5 mg PO Q4H PRN PRN Reason: PAIN LEVEL 1-5 Last Admin: 05/24/17 00:02 Dose: 5 mg Oxycodone HCl (Roxicodone -) 5 mg PO Q12H PRN Polyethylene Glycol (Miralax (For Daily Use) -) 17 gm PO DAILY [facility] Last Admin: 05/24/17 10:14 Dose: Not Given Potassium Chloride (K-Dur -) 20 meq PO QID [facility] Last Admin: 05/24/17 13:05 Dose: 20 meq - Objective Vital Signs: Vital Signs Temperature 98 F 05/24/17 08:00 Pulse Rate 86 05/24/17 10:14 Respiratory Rate 18 05/24/17 08:00 Blood Pressure 114/62 05/24/17 08:00 O2 Sat by Pulse Oximetry (%) 94 L 05/24/17 09:00 Constitutional: Yes: No Distress, Obese Eyes: Yes: Conjunctiva Clear Cardiovascular: Yes: Regular Rate and Rhythm, S1, S2 Respiratory: Yes: CTA Bilaterally Gastrointestinal: Yes: Normal Bowel Sounds, Soft. 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
[2017-05-24] MEDS ORDERED: INSULIN (NOVOLOG) ASPART 100 UNITS/ML 10ML VIAL ONE (16:15)
--- NOTE | 2017-05-24 17:23 | PN ---
Progress Note (short form) - Note Progress Note: Chief Complaint: Events noted notes reviewed. Denies any chest pain or dyspnea, post operative post right 2nd toe amputation for osteomyelitis History of Present Illness: Seen and examined. Events noted, notes reviewed. Denies any chest pain or dyspnea, post operative post right 2nd toe amputation for osteomyelitis Medications: Current Medications Acetaminophen (Tylenol -) 650 mg PO Q6H PRN PRN Reason: PAIN Aclidinium [place] (Tudorza -) 1 puff IH BID [facility] Last Admin: 05/24/17 10:17 Dose: 1 puff Albuterol Sulfate (Ventolin Hfa Inhaler -) 2 puff IH Q6H PRN PRN Reason: SHORTNESS OF BREATH Allopurinol (Zyloprim -) 100 mg PO DAILY [facility] Last Admin: 05/24/17 10:13 Dose: 100 mg Digoxin (Lanoxin -) 0.125 mg PO DAILY [facility] Last Admin: 05/24/17 10:14 Dose: 0.125 mg Diltiazem HCl (Cardizem Cd -) 180 mg PO DAILY [facility] Last Admin: 05/24/17 10:12 Dose: 180 mg Docusate Sodium (Colace -) 100 mg PO BID PRN PRN Reason: CONSTIPATION Fentanyl (Sublimaze Injection -) 25 mcg IVPUSH [id number] PRN PRN Reason: PAIN Stop: 05/26/17 08:42 Furosemide (Lasix -) 80 mg PO DAILY [facility] Last Admin: 05/24/17 10:13 Dose: 80 mg Gabapentin (Neurontin -) 100 mg PO BID [facility] Last Admin: 05/24/17 10:13 Dose: 100 mg Glimepiride (Amaryl -) 2 mg PO BIDAC [facility] Last Admin: 05/24/17 17:14 Dose: 2 mg Guaifenesin (Robitussin Dm -) 5 ml PO Q6H PRN Heparin Sodium (Porcine) (Heparin -) 1,000 unit IVPUSH PRN PRN PRN Reason: Heparin Heparin Sodium (Porcine) (Heparin -) 5,000 unit IVPUSH PRN PRN PRN Reason: Heparin Last Admin: 05/24/17 10:11 Dose: 5,000 unit Piperacillin Sod/Tazobactam (Sod 4.5 gm/ Dextrose) 100 mls @ 200 mls/hr IVPB Q8H-IV [facility] Last Admin: 05/24/17 10:12 Dose: 200 mls/hr Vancomycin HCl 1,500 mg/ (Dextrose) 500 mls @ 250 mls/hr IVPB DAILY [facility] Last Admin: 05/24/17 12:01 Dose: 250 mls/hr Heparin Sodium (Porcine) 25, (000 unit/ Sodium Chloride) 500 mls @ 20 mls/hr IV TITR [facility]; 1,000 UNIT/HR PRN Reason: Protocol Last Admin: 05/24/17 10:10 Dose: 26 mls/hr Insulin Aspart (Novolog Vial Sliding Scale -) 1 vial SQ ACHS [facility] PRN Reason: Protocol Last Admin: 05/24/17 17:18 Dose: Not Given Levothyroxine Sodium (Synthroid -) 50 mcg PO AM [facility] Last Admin: 05/24/17 06:30 Dose: 50 mcg Montelukast Sodium (Singulair -) 10 mg PO HS [facility] Last Admin: 05/23/17 21:15 Dose: 10 mg Oxycodone HCl (Roxicodone -) 5 mg PO Q4H PRN PRN Reason: PAIN LEVEL 1-5 Last Admin: 05/24/17 17:13 Dose: 5 mg Oxycodone HCl (Roxicodone -) 5 mg PO Q12H PRN Polyethylene Glycol (Miralax (For Daily Use) -) 17 gm PO DAILY [facility] Last Admin: 05/24/17 10:14 Dose: Not Given Potassium Chloride (K-Dur -) 20 meq PO QID [facility] Last Admin: 05/24/17 13:05 Dose: 20 meq Vital Signs: Last Vital Signs Temp Pulse Resp BP Pulse Ox 98.0 F 89 18 126/71 94 L 05/24/17 15:21 05/24/17 15:21 05/24/17 08:00 05/24/17 15:21 05/24/17 09:00 Intake & Output 05/21/17 05/22/17 05/23/17 05/24/17 23:59 23:59 23:59 23:59 Intake Total 1999 2039 3370 908 Output Total Balance 1999 2039 3339 908 Neck: Supple Negative JVD No Bruit Respiratory: Diminished Breath Sounds at the Bases Cardiovascular: S1 S2 Irregularly Irregular Gastrointestinal: Soft Benign Normal Bowel Sounds Ext: Edema Dressing in Situ Labs: CBC, BMP 05/24/17 07:30 05/24/17 07:30 INR, PTT INR 1.39 (0.82-1.09) H 05/24/17 07:30 Assessment/Plan ASSESSMENT: 1. 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 CAD angina pectoris, stable 3. Diastolic LV dysfunction with chronic class I NYHA classification LV congestive heart failure, compensated/euvolemic 4. Permanent atrial fibrillation [id number] score of 7 on Heparin therapy, to initiate Coumadin 5. HTN/hypertensive cardiovascular disease 6. DM 7. Hypothyroidism 8. COPD 9. CKD 10. History of DVT 11. Chronic venous stasis PLAN: 1. Continue Cardizem 2. Continue Digoxin with caution and close monitoring of Digoxin level 3. Continue Lasix 4. Recommend resumption of ACEI or ARBS unless it is absolutely contraindicated 5. Continue Heparin drip and initiate Coumadin unless additional procedures are planned Andrew Vines MD
[2017-05-24] MEDS ORDERED: WARFARIN NA 2 MG TABLET (UD) PO SCH (18:00)
[2017-05-24] MEDS: MONTELUKAST NA 10 MG TABLET PO SCH (21:16)
[2017-05-25] MEDS ORDERED: DEXTROSE 5%-WATER 100 ML IVPB ONE ×3 (02:29→16:34)
[2017-05-25] MEDS ORDERED: PIPERACILLIN/TAZOBACTAM 4.5 GM VIAL IVPB ONE ×3 (02:29→16:33)
[2017-05-25] MEDS: PIPERACILLIN/TAZOB 4.5 GM 4.5 GM in DEXTROSE 5%-WATER 100 ML IVPB SCH ×3 (02:37→16:59)
[2017-05-25] MEDS: HEPARIN NA (PORCINE) 5,000 UNITS/ML 1ML VIAL IVPUSH PRN (03:23)
[2017-05-25] MEDS: HEPARIN - 25,000 UNIT in SODIUM CHLORIDE 495 ML IV SCH ×3 (03:23→18:34)
[2017-05-25] MEDS ORDERED: PT OWN MED DRAWER 7, Y5N ONE ×4 (06:11→21:15)
[2017-05-25] MEDS: INSULIN SLIDING SCALE (NOVOLOG) 1 VIAL SQ SCH ×4 (06:26→22:04)
[2017-05-25] MEDS: LEVOTHYROXINE NA 50 MCG TABLET (FP) PO SCH (06:27)
[2017-05-25] MEDS: GLIMEPIRIDE 2 MG TABLET (FP) PO SCH ×2 (06:28→16:55)
[2017-05-25 08:31] LABS: MCHC 31.5 g/dl (32.0-36.0); MEAN CELL VOLUME 82.5 fl (80-96); MEAN PLT VOLUME 7.6 fl (7.5-11.1); PLATELET COUNT 295 K/MM3 (134-434); RDW 19.9 % (11.6-15.6); WHITE BLOOD COUNT 10.3 K/mm3 (4.0-10.0)
[2017-05-25 08:47] LABS: INR 1.36 (0.82-1.09); PROTHROMBIN TIME (PATIENT) 15.1 SEC (9.98-11.88)
--- NOTE | 2017-05-25 10:08 | PN ---
Progress Note (short form) - Note Progress Note: Patient seen and examined. Chart reviewed. Currently sitting up at the side of the bed, alert and appropriate. Denies new chest discomfort and has less wheezing while at rest. Post-operative pain diminished. Medications, labs, radiologic procedures and progress notes reviewed. Warfarin started. INR reviewed. Selected Entries 05/24/17 05/25/17 21:00 08:00 Temperature 98.8 F Pulse Rate 95 H Respiratory 18 Rate Blood Pressure 121/64 O2 Sat by Pulse 96 Oximetry (%) Oxygen Delivery Room Air Method Laboratory Tests 05/24/17 05/25/17 05/25/17 07:30 06:00 06:00 WBC 10.3 H Hgb 10.2 L Hct 32.3 L Plt Count 295 INR 1.36 H Sodium 139 Potassium 4.4 Chloride 103 Carbon Dioxide 29 BUN 21 H Creatinine 1.0 Random Glucose 83 Calcium 8.7 Chest No expiratory wheezing noted Cor Irregular Abd Obese non-tender Ext Right foot bandaged Boot in place Venous stasis changes Neuro No new focal deficits Assessment and Plan Right 2nd toe amputation for osteomyelitis. Doing well post-operatively Anemia 10.3/32.7>>10.2/32.3 Likely multifactorial with contribution of acute/ chronic disease DM Monitor AFib On iv Heparin Restart Warfarin Venous stasis Monitor HTN Stable Morbid Obesity Chronic issue Hypoalbuminemia 2.7 Likely related to acute/chronic disease as well as nutritional factors Hypokalemia Currently 4.4 Monitor COPD Monitor clinical status Hypothyroid On Rx Continue current Rx Restart warfarin
[2017-05-25] MEDS: POTASSIUM CHLORIDE TABS 20 MEQ TABLET.ER (FP) PO SCH ×4 (10:50→22:07)
[2017-05-25] MEDS: DIGOXIN 0.125 MG TABLET (FP) PO SCH (10:51)
[2017-05-25] MEDS: POLYETHYLENE GLYCOL 3350 119 GM BTL PO SCH (10:51)
[2017-05-25] MEDS: ALLOPURINOL 100 MG TABLET (FP) PO SCH (10:51)
[2017-05-25] MEDS: FUROSEMIDE 40 MG TABLET (FP) PO SCH (10:51)
[2017-05-25] MEDS: GABAPENTIN 100 MG CAPSULE (FP) PO SCH ×2 (10:52→22:07)
[2017-05-25] MEDS: VANCOMYCIN 1,500 MG in DEXTROSE 5%-WATER - 500 ML IVPB SCH (10:52)
[2017-05-25] MEDS: ACLIDINIUM BROMIDE 400 MCG/INH AERO.POWD IH SCH ×2 (11:00→22:10)
--- NOTE | 2017-05-25 11:03 | PN ---
Progress Note (short form) - Note Progress Note: Podiatry: Seen/evaluated at bedside, NAD. Pain well controlled, denies F/V/N/C/SOB/CP. S /p R 2nd toe amputation POD #2. Afebrile, VSS. LUIS: R foot: dressing C/D/I, no active bleeding noted. Sutures well coapted with central aspect open, no wound dehiscence, no purulence, no fluctuance, no periwound erythema, no ascending cellulitis, no signs of active infection. Minimal tenderness to palpation. No calf tenderness. WBC: 10.3 OR Cx: pending Imp: 82 year old DM F s/p R 2nd toe amputation for osteomyelitis POD #2 1. C/w IV abx per ID 2. DSD R foot 3. Partial WB R heel with surgical shoe 4. Awaiting final OR cultures/path 5. Will determine course of abx once path is back Mg Ayoub DPM
[2017-05-25] MEDS ORDERED: INSULIN (NOVOLOG) ASPART 100 UNITS/ML 10ML VIAL ONE (11:24)
--- NOTE | 2017-05-25 11:55 | PN ---
Progress Note (short form) - Note Progress Note: Chief Complaint: Events noted notes reviewed. Denies any chest pain or dyspnea, post right 2nd toe amputation for osteomyelitis History of Present Illness: Seen and examined. Events noted, notes reviewed. Denies any chest pain or dyspnea, post right 2nd toe amputation for osteomyelitis Medications: Current Medications Acetaminophen (Tylenol -) 650 mg PO Q6H PRN PRN Reason: PAIN Aclidinium [place] (Tudorza -) 1 puff IH BID [facility] Last Admin: 05/25/17 11:00 Dose: 1 puff Albuterol Sulfate (Ventolin Hfa Inhaler -) 2 puff IH Q6H PRN PRN Reason: SHORTNESS OF BREATH Allopurinol (Zyloprim -) 100 mg PO DAILY [facility] Last Admin: 05/25/17 10:51 Dose: 100 mg Digoxin (Lanoxin -) 0.125 mg PO DAILY [facility] Last Admin: 05/25/17 10:51 Dose: 0.125 mg Diltiazem HCl (Cardizem Cd -) 180 mg PO DAILY [facility] Last Admin: 05/25/17 10:51 Dose: 180 mg Docusate Sodium (Colace -) 100 mg PO BID PRN PRN Reason: CONSTIPATION Fentanyl (Sublimaze Injection -) 25 mcg IVPUSH [id number] PRN PRN Reason: PAIN Stop: 05/26/17 08:42 Furosemide (Lasix -) 80 mg PO DAILY [facility] Last Admin: 05/25/17 10:51 Dose: 80 mg Gabapentin (Neurontin -) 100 mg PO BID [facility] Last Admin: 05/25/17 10:52 Dose: 100 mg Glimepiride (Amaryl -) 2 mg PO BIDAC [facility] Last Admin: 05/25/17 06:28 Dose: 2 mg Guaifenesin (Robitussin Dm -) 5 ml PO Q6H PRN Heparin Sodium (Porcine) (Heparin -) 1,000 unit IVPUSH PRN PRN PRN Reason: Heparin Heparin Sodium (Porcine) (Heparin -) 5,000 unit IVPUSH PRN PRN PRN Reason: Heparin Last Admin: 05/25/17 03:23 Dose: 5,000 unit Piperacillin Sod/Tazobactam (Sod 4.5 gm/ Dextrose) 100 mls @ 200 mls/hr IVPB Q8H-IV [facility] Last Admin: 05/25/17 10:50 Dose: 200 mls/hr Vancomycin HCl 1,500 mg/ (Dextrose) 500 mls @ 250 mls/hr IVPB DAILY [facility] Last Admin: 05/25/17 10:52 Dose: 250 mls/hr Heparin Sodium (Porcine) 25, (000 unit/ Sodium Chloride) 500 mls @ 20 mls/hr IV TITR [facility]; 1,000 UNIT/HR PRN Reason: Protocol Last Admin: 05/25/17 11:15 Dose: 32 mls/hr Insulin Aspart (Novolog Vial Sliding Scale -) 1 vial SQ ACHS [facility] PRN Reason: Protocol Last Admin: 05/25/17 06:26 Dose: Not Given Levothyroxine Sodium (Synthroid -) 50 mcg PO AM [facility] Last Admin: 05/25/17 06:27 Dose: 50 mcg Montelukast Sodium (Singulair -) 10 mg PO HS [facility] Last Admin: 05/24/17 21:16 Dose: 10 mg Oxycodone HCl (Roxicodone -) 5 mg PO Q4H PRN PRN Reason: PAIN LEVEL 1-5 Last Admin: 05/24/17 17:13 Dose: 5 mg Oxycodone HCl (Roxicodone -) 5 mg PO Q12H PRN Polyethylene Glycol (Miralax (For Daily Use) -) 17 gm PO DAILY [facility] Last Admin: 05/25/17 10:51 Dose: 17 grams Potassium Chloride (K-Dur -) 20 meq PO QID [facility] Last Admin: 05/25/17 10:50 Dose: 20 meq Warfarin Sodium (Coumadin -) 4 mg PO DAILY@1800 [facility] Vital Signs: Last Vital Signs Temp Pulse Resp BP Pulse Ox 98.8 F 89 18 121/64 96 05/25/17 08:00 05/25/17 10:51 05/25/17 08:00 05/25/17 08:00 05/24/17 21:00 Intake & Output 05/22/17 05/23/17 05/24/17 05/25/17 23:59 23:59 23:59 23:59 Intake Total 2039 3370 908 760 Output Total 30 Balance 20390 908 760 Neck: Supple Negative JVD No Bruit Respiratory: Diminished Breath Sounds at the Bases Cardiovascular: S1 S2 Irregularly Irregular Gastrointestinal: Soft Benign Normal Bowel Sounds Ext: Edema Dressing in Situ Labs: CBC, BMP 05/25/17 06:00 05/24/17 07:30 INR, PTT INR 1.36 (0.82-1.09) H 05/25/17 06:00 Assessment/Plan ASSESSMENT: 1. 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 CAD angina pectoris, stable 3. Diastolic LV dysfunction with chronic class I NYHA classification LV congestive heart failure, compensated/euvolemic 4. Permanent atrial fibrillation [id number] score of 7 on Heparin therapy bridging to Coumadin 5. HTN/hypertensive cardiovascular disease 6. DM 7. Hypothyroidism 8. COPD 9. CKD 10. History of DVT 11. Chronic venous stasis PLAN: 1. Continue Cardizem 2. Continue Digoxin with caution and close monitoring of Digoxin level 3. Continue Lasix 4. Recommend resumption of ACEI or ARBS unless it is absolutely contraindicated 5. Continue Heparin drip bridging to Coumadin with close monitoring of INR, maintain 2-3 Andrew Vines MD
[2017-05-25] MEDS: WARFARIN NA 2 MG TABLET (UD) PO SCH (18:34)
[2017-05-25] MEDS: MONTELUKAST NA 10 MG TABLET PO SCH (22:06)
[2017-05-26] MEDS ORDERED: PIPERACILLIN/TAZOBACTAM 4.5 GM VIAL IVPB ONE ×2 (00:32→09:43)
[2017-05-26] MEDS ORDERED: DEXTROSE 5%-WATER 100 ML IVPB ONE ×2 (00:32→09:43)
[2017-05-26] MEDS: oxyCODONE HCL 5 MG TABLET PO PRN ×2 (00:36→23:59)
[2017-05-26] MEDS: PIPERACILLIN/TAZOB 4.5 GM 4.5 GM in DEXTROSE 5%-WATER 100 ML IVPB SCH ×2 (01:41→09:53)
[2017-05-26] MEDS ORDERED: PT OWN MED DRAWER 7, Y5N ONE ×3 (04:25→09:42)
[2017-05-26] MEDS: HEPARIN - 25,000 UNIT in SODIUM CHLORIDE 495 ML IV SCH ×3 (04:28→17:00)
[2017-05-26] MEDS: LEVOTHYROXINE NA 50 MCG TABLET (FP) PO SCH (06:24)
[2017-05-26] MEDS: GLIMEPIRIDE 2 MG TABLET (FP) PO SCH ×2 (06:25→16:17)
[2017-05-26] MEDS: INSULIN SLIDING SCALE (NOVOLOG) 1 VIAL SQ SCH ×4 (06:25→21:41)
[2017-05-26 07:56] LABS: MCH 25.8 pg (25.7-33.7); MCHC 31.5 g/dl (32.0-36.0); MEAN CELL VOLUME 82.1 fl (80-96); MEAN PLT VOLUME 7.4 fl (7.5-11.1); PLATELET COUNT 310 K/MM3 (134-434); RDW 19.4 % (11.6-15.6); WHITE BLOOD COUNT 9.8 K/mm3 (4.0-10.0)
[2017-05-26 08:09] LABS: INR 1.34 (0.82-1.09); PROTHROMBIN TIME (PATIENT) 14.8 SEC (9.98-11.88)
[2017-05-26] MEDS ORDERED: INSULIN (NOVOLOG) ASPART 100 UNITS/ML 10ML VIAL ONE ×2 (09:42→16:03)
[2017-05-26] MEDS: POTASSIUM CHLORIDE TABS 20 MEQ TABLET.ER (FP) PO SCH ×4 (09:52→21:42)
[2017-05-26] MEDS: FUROSEMIDE 40 MG TABLET (FP) PO SCH (09:52)
[2017-05-26] MEDS: DIGOXIN 0.125 MG TABLET (FP) PO SCH (09:52)
[2017-05-26] MEDS: POLYETHYLENE GLYCOL 3350 119 GM BTL PO SCH (09:52)
[2017-05-26] MEDS: ALLOPURINOL 100 MG TABLET (FP) PO SCH (09:53)
[2017-05-26] MEDS: GABAPENTIN 100 MG CAPSULE (FP) PO SCH ×2 (09:53→21:42)
[2017-05-26] MEDS: ACLIDINIUM BROMIDE 400 MCG/INH AERO.POWD IH SCH ×3 (09:54→21:55)
--- NOTE | 2017-05-26 09:55 | PN ---
Progress Note (short form) - Note Progress Note: patient seen and examined this morning. On antibiotics intravenously and IV heparin. INR 1.34 still subtherapeutic Has not gone to physical therapy at when seen this morning. Not complaining of pain in the right foot. On exam: Vital Signs Temp 98.1 F 05/26/17 15:47 Pulse 69 05/26/17 15:47 Resp 20 05/26/17 08:00 BP 114/56 05/26/17 15:47 Pulse Ox 95 05/26/17 08:00 Intake & Output 05/25/17 05/26/17 05/26/17 23:59 11:59 23:59 Intake Total 5296 436 8955 Output Total 6 Balance 1262 796 2705 Intake: IV 384 350 425 Heparin - 25,000 Unit In 384 350 425 Normal Saline - 495 ml @ 1,000 UNIT/HR 20 mls/hr IV TITR [facility] Rx#: [id number] IVPB 700 100 900 Oral 250 750 Output: Urine 6 Void 6 Other: Voiding Method Toilet Toilet Toilet # Unmeasured Voids Void 3 patient alert In bed. Chest no obvious wheezes. Heart irregular. Abdomen obese with pannus. Extremities 1+ pedal edema slightly increased. Right foot and amputation site bandaged. Abnormal Lab Results 05/26/17 05/26/17 05/26/17 07:05 07:05 07:05 Hgb 10.0 L Hct 31.8 L MCHC 31.5 L RDW 19.4 H MPV 7.4 L INR 1.34 H PTT (Actin FS) 39.6 H impression: Osteomyelitis second toe right foot. Diabetes mellitus [id number]. Hypertension on medication. Atrial fibrillation on Coumadin, but awaiting therapeutic levels. Obesity with pannus. Asthmatic bronchitis. Osteoarthritis of the knees. Plan: Pathology report seems to indicate that all osteomyelitis is been removed. Await therapeutic level of Coumadin. Repeat basic profile and CBC in a.m. Await report from physical therapy. Plan hope to send home with physical therapy and visiting nurse with followup to the foot Problem List - Problems (1) Osteomyelitis Code(s): M86.9 - OSTEOMYELITIS, UNSPECIFIED Qualifiers: Osteomyelitis type: unspecified type Osteomyelitis location: foot Laterality: right Qualified Code(s): M86.9 - Osteomyelitis, unspecified (2) Atrial fibrillation Code(s): I48.91 - UNSPECIFIED ATRIAL FIBRILLATION Qualifiers: Atrial fibrillation type: chronic Qualified Code(s): I48.2 - Chronic atrial fibrillation (3) Cellulitis Code(s): L03.90 - CELLULITIS, UNSPECIFIED Qualifiers: Site of cellulitis: extremity Site of cellulitis of extremity: toe Laterality: right Qualified Code(s): L03.031 - Cellulitis of right toe (4) Chronic venous stasis dermatitis of both lower extremities Code(s): I87.2 - VENOUS INSUFFICIENCY (CHRONIC) (PERIPHERAL) (5) COPD (chronic obstructive pulmonary disease) Code(s): J44.9 - CHRONIC OBSTRUCTIVE PULMONARY DISEASE, UNSPECIFIED Qualifiers : COPD type: COPD with acute exacerbation Qualified Code(s): J44.1 - Chronic obstructive pulmonary disease with (acute) exacerbation (6) Diabetes Code(s): E11.9 - TYPE 2 DIABETES MELLITUS WITHOUT COMPLICATIONS Qualifiers: Diabetes mellitus type: type 2 Diabetes mellitus complication status: with hyperglycemia Diabetes mellitus terminologist insulin use: without terminologist use Qualified Code(s): E11.65 - Type 2 diabetes mellitus with hyperglycemia; Z79.4 - [facility] (current) use of insulin
[2017-05-26] MEDS: VANCOMYCIN 1,500 MG in DEXTROSE 5%-WATER - 500 ML IVPB SCH (11:20)
--- NOTE | 2017-05-26 11:25 | PN ---
Progress Note (short form) - Note Progress Note: alert s/p right second toe amputation 05/23/17 Vital Signs Period Temp Pulse Resp BP Sys/Luke Pulse Ox Last 24 Hr 97.8 F-99.1 F 66-88 16-18 109-125/57-62 cor-rrr lungs clear abd soft,nt +pannus ext bandaged foot CBC, BMP 05/26/17 07:05 05/24/17 07:30 Microbiology 05/23/17 10:38 Bone Gram Stain - Final 05/23/17 10:38 Bone Tissue Culture - Preliminary Staphylococcus Coagulase Neg Vr Ec Faecium 05/23/17 10:38 Bone Anaerobic Culture - Final NO ANAEROBES WERE ISOLATED 05/23/17 10:38 Toe - Right Second Gram Stain - Final 05/23/17 10:38 Toe - Right Second Wound Culture - Final Staphylococcus Coagulase Neg 05/15/17 00:20 Blood - Peripheral Venous Blood Culture - Final NO GROWTH AFTER 5 DAYS INCUBATION 05/15/17 00:20 Blood - Peripheral Venous Blood Culture - Final NO GROWTH AFTER 5 DAYS INCUBATION a/p soft tissue infection of her second toe osteomyelitis of the right second toe will switch to [id number], no evidence of gram negatives in operative culture awaiting pathology venous stasis morbid obesity Problem List - Problems (1) Cellulitis Code(s): L03.90 - CELLULITIS, UNSPECIFIED Qualifiers: Site of cellulitis: extremity Site of cellulitis of extremity: toe Laterality: right Qualified Code(s): L03.031 - Cellulitis of right toe (2) Osteomyelitis Code(s): M86.9 - OSTEOMYELITIS, UNSPECIFIED Qualifiers: Osteomyelitis type: unspecified type Osteomyelitis location: foot Laterality: right Qualified Code(s): M86.9 - Osteomyelitis, unspecified (3) Chronic venous stasis dermatitis of both lower extremities Code(s): I87.2 - VENOUS INSUFFICIENCY (CHRONIC) (PERIPHERAL) (4) Morbid obesity Code(s): E66.01 - MORBID (SEVERE) OBESITY DUE TO EXCESS CALORIES
[2017-05-26] MEDS ORDERED: LINEZOLID 600 MG PREMIX BAG 300 ML IVPB SCH ×2 (11:30→11:55)
--- NOTE | 2017-05-26 12:20 | PN ---
Progress Note, Physician History of Present Illness: Right foot bandaged, denies discomfort. - Current Medication List Current Medications: Active Medications Acetaminophen (Tylenol -) 650 mg PO Q6H PRN PRN Reason: PAIN Aclidinium [place] (Tudorza -) 1 puff IH BID [facility] Last Admin: 05/26/17 09:55 Dose: 1 puff Albuterol Sulfate (Ventolin Hfa Inhaler -) 2 puff IH Q6H PRN PRN Reason: SHORTNESS OF BREATH Allopurinol (Zyloprim -) 100 mg PO DAILY [facility] Last Admin: 05/26/17 09:53 Dose: 100 mg Digoxin (Lanoxin -) 0.125 mg PO DAILY [facility] Last Admin: 05/26/17 09:52 Dose: 0.125 mg Diltiazem HCl (Cardizem Cd -) 180 mg PO DAILY [facility] Last Admin: 05/26/17 09:52 Dose: 180 mg Docusate Sodium (Colace -) 100 mg PO BID PRN PRN Reason: CONSTIPATION Last Admin: 05/25/17 22:07 Dose: 100 mg Furosemide (Lasix -) 80 mg PO DAILY [facility] Last Admin: 05/26/17 09:52 Dose: 80 mg Gabapentin (Neurontin -) 100 mg PO BID [facility] Last Admin: 05/26/17 09:53 Dose: 100 mg Glimepiride (Amaryl -) 2 mg PO BIDAC [facility] Last Admin: 05/26/17 06:25 Dose: 2 mg Guaifenesin (Robitussin Dm -) 5 ml PO Q6H PRN Heparin Sodium (Porcine) (Heparin -) 1,000 unit IVPUSH PRN PRN PRN Reason: Heparin Heparin Sodium (Porcine) (Heparin -) 5,000 unit IVPUSH PRN PRN PRN Reason: Heparin Last Admin: 05/25/17 03:23 Dose: 5,000 unit Heparin Sodium (Porcine) 25, (000 unit/ Sodium Chloride) 500 mls @ 20 mls/hr IV TITR LYUDMILA; 1,000 UNIT/HR PRN Reason: Protocol Last Admin: 05/26/17 04:28 Dose: 32 mls/hr Linezolid (Zyvox 600 Mg Premix Bag (Restricted To Id) -) 300 mls @ 300 mls/hr IVPB BID [facility] PRN Reason: Protocol Insulin Aspart (Novolog Vial Sliding Scale -) 1 vial SQ ACHS [facility] PRN Reason: Protocol Last Admin: 05/26/17 10:03 Dose: Not Given Levothyroxine Sodium (Synthroid -) 50 mcg PO AM [facility] Last Admin: 05/26/17 06:24 Dose: 50 mcg Montelukast Sodium (Singulair -) 10 mg PO HS [facility] Last Admin: 05/25/17 22:06 Dose: 10 mg Polyethylene Glycol (Miralax (For Daily Use) -) 17 gm PO DAILY [facility] Last Admin: 05/26/17 09:52 Dose: 17 grams Potassium Chloride (K-Dur -) 20 meq PO QID [facility] Last Admin: 05/26/17 09:52 Dose: 20 meq Warfarin Sodium (Coumadin -) 4 mg PO DAILY@1800 [facility] Last Admin: 05/25/17 18:34 Dose: 4 mg - Objective Vital Signs: Vital Signs Temperature 97.8 F 05/26/17 05:00 Pulse Rate 88 05/26/17 09:52 Respiratory Rate 16 05/26/17 05:00 Blood Pressure 123/57 05/26/17 05:00 O2 Sat by Pulse Oximetry (%) 95 05/25/17 09:00 Constitutional: Yes: No Distress, Calm Neck: Yes: Supple Cardiovascular: Yes: Pulse Irregular Respiratory: Yes: Regular, Diminished Gastrointestinal: Yes: Normal Bowel Sounds, Soft, Abdomen, Obese Edema: Yes Integumentary: Yes: Venous Stasis Changes Wound/Incision: Yes: Dressing Dry and Intact Labs: CBC, BMP 05/26/17 07:05 05/24/17 07:30 INR, PTT INR 1.34 (0.82-1.09) H 05/26/17 07:05 Problem List - Problems (1) Atrial fibrillation Code(s): I48.91 - UNSPECIFIED ATRIAL FIBRILLATION Qualifiers: Atrial fibrillation type: chronic Qualified Code(s): I48.2 - Chronic atrial fibrillation (2) Cellulitis Code(s): L03.90 - CELLULITIS, UNSPECIFIED Qualifiers: Site of cellulitis: extremity Site of cellulitis of extremity: toe Laterality: right Qualified Code(s): L03.031 - Cellulitis of right toe (3) Chronic venous stasis dermatitis of both lower extremities Code(s): I87.2 - VENOUS INSUFFICIENCY (CHRONIC) (PERIPHERAL) (4) Morbid obesity Code(s): E66.01 - MORBID (SEVERE) OBESITY DUE TO EXCESS CALORIES (5) Osteomyelitis Code(s): M86.9 - OSTEOMYELITIS, UNSPECIFIED Qualifiers: Osteomyelitis type: unspecified type Osteomyelitis location: foot Laterality: right Qualified Code(s): M86.9 - Osteomyelitis, unspecified (6) COPD (chronic obstructive pulmonary disease) Code(s): J44.9 - CHRONIC OBSTRUCTIVE PULMONARY DISEASE, UNSPECIFIED Qualifiers : COPD type: COPD with acute exacerbation Qualified Code(s): J44.1 - Chronic obstructive pulmonary disease with (acute) exacerbation (7) Chronic wound of extremity Code(s): [id number] - (8) Diabetes Code(s): E11.9 - TYPE 2 DIABETES MELLITUS WITHOUT COMPLICATIONS Qualifiers: Diabetes mellitus type: type 2 Diabetes mellitus complication status: with hyperglycemia Diabetes mellitus retirement insulin use: without buttermaker use Qualified Code(s): E11.65 - Type 2 diabetes mellitus with hyperglycemia; Z79.4 - care home (current) use of insulin (9) Diastolic dysfunction without heart failure Code(s): I51.9 - HEART DISEASE, UNSPECIFIED (10) HTN (hypertension) Code(s): I10 - ESSENTIAL (PRIMARY) HYPERTENSION Qualifiers: Hypertension type: essential hypertension Qualified Code(s): I10 - Essential (primary) hypertension Assessment/Plan 1. 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 CAD angina pectoris, stable 3. Diastolic LV dysfunction with chronic class I NYHA classification LV congestive heart failure, compensated/euvolemic 4. Permanent atrial fibrillation [id number] score of 7 on Heparin therapy bridging to Coumadin 5. HTN/hypertensive cardiovascular disease 6. DM 7. Hypothyroidism 8. COPD 9. CKD 10. History of DVT 11. Chronic venous stasis PLAN: 1. Continue Cardizem CD 180 qd 2. Continue Digoxin 0.125 qd with caution and close monitoring of Digoxin level 3. Continue Lasix 80 qd 4. Recommend resumption of ACEI or ARBS unless it is absolutely contraindicated 5. Continue Heparin gtt- > Coumadin per INR 2-3 6. Complete abx course per ID
--- NOTE | 2017-05-26 12:38 | PATH ---
Surgical Pathology Report Patient Name: COLIN ARREOLA [facility]. Rec. #: [id number] /Age/Gender: 1935 (Age: 82) / F Account: [id number] Location: [address] [place] [address]/[facility] Taken: 05/23/2017 Received: 05/23/2017 Reported: 05/26/2017 Physicians: Pastor Ayoub DPM Specimen(s) Received A: AMPUTATION RIGHT 2ND TOE B: PROXIMAL BONE (RIGHT 2ND METATARSAL) Clinical History Acute osteomyelitis right foot Final Diagnosis A. RIGHT SECOND TOE, AMPUTATION: SKIN AND SOFT TISSUE WITH ULCERATION AND ACUTE INFLAMMATION, AND BONE WITH ACUTE OSTEOMYELITIS. SKIN AND SOFT TISSUE MARGIN OF EXCISION APPEARS FREE OF INFLAMMATION. BONE AT MARGIN APPEARS FREE OF OSTEOMYELITIS. B. BONE, PROXIMAL RIGHT SECOND METATARSAL, EXCISION: BENIGN BONE. REACTIVE CHANGES ARE PRESENT. NO OSTEOMYELITIS IDENTIFIED. Electronically Signed Waylon Melo M.D. Gross Description A. Received in formalin labeled "right second toe," is a 6.5 x 3.3 x 3.0 cm toe amputation specimen. The epidermal surface displays a 4.5 x 3.0 cm ulcerated lesion focally extending to the skin and soft tissue margin. The lesion involves the underlying bone. Group Director Experience sections are submitted in 3 cassettes as follows: 1-lesion with underlying bone, following decalcification; 2-bone margin, following decalcification; 3-skin and soft tissue margin. B. Received in formalin labeled "proximal bone right second toe," is a 1.8 x 1.6 x 1.4 cm parikh, irregular portion of bone. The bone displays smooth articular cartilage at one end and the opposing end displays smooth trabecular bone (probable true bone margin). Group Director Experience sections are submitted in 2 cassettes as follows: 1-probable true bone margin, following decalcification; 2-end of bone with articular cartilage, following decalcification. /05/23/201705/23/2017
[2017-05-26] MEDS: LINEZOLID 600 MG PREMIX BAG 300 ML IVPB SCH ×2 (12:39→21:46)
[2017-05-26] MEDS: LOSARTAN POTASSIUM 25 MG TABLET PO SCH (13:42)
[2017-05-26] MEDS: HEPARIN NA (PORCINE) 5,000 UNITS/ML 1ML VIAL IVPUSH PRN (16:49)
[2017-05-26] MEDS: WARFARIN NA 2 MG TABLET (UD) PO SCH (16:59)
[2017-05-26] MEDS: MONTELUKAST NA 10 MG TABLET PO SCH (21:42)
[2017-05-27] MEDS: INSULIN SLIDING SCALE (NOVOLOG) 1 VIAL SQ SCH ×4 (06:23→21:05)
[2017-05-27] MEDS: LEVOTHYROXINE NA 50 MCG TABLET (FP) PO SCH (06:24)
[2017-05-27] MEDS: GLIMEPIRIDE 2 MG TABLET (FP) PO SCH ×2 (06:25→17:08)
[2017-05-27 07:01] LABS: MCH 25.8 pg (25.7-33.7); MEAN CELL VOLUME 83.1 fl (80-96); MEAN PLT VOLUME 7.1 fl (7.5-11.1); PLATELET COUNT 331 K/MM3 (134-434); WHITE BLOOD COUNT 11.2 K/mm3 (4.0-10.0)
[2017-05-27 07:25] LABS: INR 1.35 (0.82-1.09); PROTHROMBIN TIME (PATIENT) 14.9 SEC (9.98-11.88)
[2017-05-27 08:34] LABS: ANION GAP 3 (8-16); CALCIUM 9.2 mg/dL (8.5-10.1); CO2 31 mmol/L (21-32); CREATININE 0.8 mg/dL (0.55-1.02); GLUCOSE,RANDOM 98 mg/dL (74-106)
[2017-05-27 08:47] LABS: DIGOXIN LEVEL 0.5098 ng/ml (0.8-2.0)
[2017-05-27] MEDS ORDERED: PT OWN MED DRAWER 7, Y5N ONE ×2 (10:29→16:31)
[2017-05-27] MEDS: FUROSEMIDE 40 MG TABLET (FP) PO SCH (10:40)
[2017-05-27] MEDS: DIGOXIN 0.125 MG TABLET (FP) PO SCH (10:40)
[2017-05-27] MEDS: LOSARTAN POTASSIUM 25 MG TABLET PO SCH (10:40)
[2017-05-27] MEDS: POTASSIUM CHLORIDE TABS 20 MEQ TABLET.ER (FP) PO SCH ×3 (10:40→21:07)
[2017-05-27] MEDS: ALLOPURINOL 100 MG TABLET (FP) PO SCH (10:40)
[2017-05-27] MEDS: GABAPENTIN 100 MG CAPSULE (FP) PO SCH ×2 (10:40→21:07)
[2017-05-27] MEDS: POLYETHYLENE GLYCOL 3350 119 GM BTL PO SCH (10:41)
[2017-05-27] MEDS: LINEZOLID 600 MG PREMIX BAG 300 ML IVPB SCH (10:42)
[2017-05-27] MEDS: ACLIDINIUM BROMIDE 400 MCG/INH AERO.POWD IH SCH ×2 (10:44→21:08)
--- NOTE | 2017-05-27 10:47 | PN ---
Progress Note (short form) - Note Progress Note: alert s/p right second toe amputation 05/23/17 Vital Signs Period Temp Pulse Resp BP Sys/Luke Pulse Ox Last 24 Hr 97.5 F-98.1 F 69-85 20-20 114-131/56-62 cor-rrr lungs clear abd soft,pannus unchanged ext-venous stasis changes, amptation site with sutures intact CBC, BMP 05/27/17 06:00 05/27/17 06:00 Microbiology 05/23/17 10:38 Bone Gram Stain - Final 05/23/17 10:38 Bone Tissue Culture - Final S Aureus Vr Ec Faecium 05/23/17 10:38 Bone Anaerobic Culture - Final NO ANAEROBES WERE ISOLATED 05/23/17 10:38 Toe - Right Second Gram Stain - Final 05/23/17 10:38 Toe - Right Second Wound Culture - Final Staphylococcus Coagulase Neg 05/15/17 00:20 Blood - Peripheral Venous Blood Culture - Final NO GROWTH AFTER 5 DAYS INCUBATION 05/15/17 00:20 Blood - Peripheral Venous Blood Culture - Final NO GROWTH AFTER 5 DAYS INCUBATION pathology with clean margins at resection site a/p soft tissue infection of her second toe osteomyelitis of the right second toe-s/p amputation bone biopsy margins have no osteomyelitis will switch to po bactrim -will need to monitor potassium and renal function while on bactrim concerned for local wound care she would benefit from SNF I am concerned about her wound healing given her obesity and abilities to care for herself afib- on a/c venous stasis morbid obesity will d/w Dr Storey Problem List - Problems (1) Cellulitis Code(s): L03.90 - CELLULITIS, UNSPECIFIED Qualifiers: Site of cellulitis: extremity Site of cellulitis of extremity: toe Laterality: right Qualified Code(s): L03.031 - Cellulitis of right toe (2) Osteomyelitis Code(s): M86.9 - OSTEOMYELITIS, UNSPECIFIED Qualifiers: Osteomyelitis type: unspecified type Osteomyelitis location: foot Laterality: right Qualified Code(s): M86.9 - Osteomyelitis, unspecified (3) Chronic venous stasis dermatitis of both lower extremities Code(s): I87.2 - VENOUS INSUFFICIENCY (CHRONIC) (PERIPHERAL) (4) Morbid obesity Code(s): E66.01 - MORBID (SEVERE) OBESITY DUE TO EXCESS CALORIES
[2017-05-27] MEDS: SULFAMETHOXAZOLE/TRIMETHOPRIM 800MG/160MG D.S. TABLET PO SCH ×2 (12:01→21:06)
--- NOTE | 2017-05-27 12:53 | PN ---
Progress Note (short form) - Note Progress Note: Podiatry: Seen/evaluated at bedside, NAD. Pain controlled, denies F/V/N/C/SOB/CP. S/p R 2nd digit amputation. Afebrile, VSS. Patient reports she has been weightbearing and walking a lot going back and forth to the bathroom. LUIS: R foot: dressing C/D/I, no active bleeding, no strikethrough. Some dehiscence noted at distal aspect of incision site, mostly sutures are coapted. There is underlying fibrogranular base, no purulence, no fluctuance, no periwound erythema, no ascending cellulitis, no signs of active infection. Minimal tenderness to palpation. CFT brisk to remaining toes. WBC: 11.2 OR Cx: VRE, MRSA OR path: negative at proximal margins of bone Imp: 82 year old DM F s/p R 2nd toe amputation 1. C/w abx per Infectious Disease 2. DSD R foot 3. Partial WB R foot with surgical shoe 4. Physical Therapy 5. Strongly advised patient to consider [facility] placement, however she is refusing. Recommend home physical therapy and home nursing services for local wound care with bactroban + DSD every other day 6. Podiatry stable for discharge, will f/u with me in wound care 06/03 Mg Ayoub DPM
[2017-05-27] MEDS: HEPARIN - 25,000 UNIT in SODIUM CHLORIDE 495 ML IV SCH (14:17)
[2017-05-27] MEDS ORDERED: FUROSEMIDE 40 MG/4 ML INJECTABLE VIAL IVPB ONE (15:17)
--- NOTE | 2017-05-27 15:28 | PN ---
Progress Note, Physician Chief Complaint: no complaints of foot pain. History of Present Illness: Patient had successful amputation 2nd toe right foot and pathology report shows no remnant of Osteomyelitis. ID has Rxed with Bactrim. Would nicko be better off with temporary SNF but wants to go home. Will arrange VNS with PT. Surgeon has instructions for visits every 2-3 days by wound care VNS and then followup with him in wound care. INR still subtherapeutic and will Rx with 6mg Coumadin tonight. ID worried about INR on Bactrim but she has weekly INR at home. - Current Medication List Current Medications: Active Medications Acetaminophen (Tylenol -) 650 mg PO Q6H PRN PRN Reason: PAIN Aclidinium [place] (Tudorza -) 1 puff IH BID [facility] Last Admin: 05/27/17 10:44 Dose: 1 puff Albuterol Sulfate (Ventolin Hfa Inhaler -) 2 puff IH Q6H PRN PRN Reason: SHORTNESS OF BREATH Allopurinol (Zyloprim -) 100 mg PO DAILY [facility] Last Admin: 05/27/17 10:40 Dose: 100 mg Digoxin (Lanoxin -) 0.125 mg PO DAILY [facility] Last Admin: 05/27/17 10:40 Dose: 0.125 mg Diltiazem HCl (Cardizem Cd -) 180 mg PO DAILY [facility] Last Admin: 05/27/17 10:40 Dose: 180 mg Docusate Sodium (Colace -) 100 mg PO BID PRN PRN Reason: CONSTIPATION Last Admin: 05/25/17 22:07 Dose: 100 mg Furosemide (Lasix -) 80 mg PO DAILY [facility] Last Admin: 05/27/17 10:40 Dose: 80 mg Furosemide (Lasix Injection -) 40 mg IVPB ONCE ONE Stop: 05/27/17 15:18 Gabapentin (Neurontin -) 100 mg PO BID [facility] Last Admin: 05/27/17 10:40 Dose: 100 mg Glimepiride (Amaryl -) 2 mg PO BIDAC [facility] Last Admin: 05/27/17 06:25 Dose: 2 mg Guaifenesin (Robitussin Dm -) 5 ml PO Q6H PRN Heparin Sodium (Porcine) (Heparin -) 1,000 unit IVPUSH PRN PRN PRN Reason: Heparin Last Admin: 05/26/17 23:58 Dose: 1,000 unit Heparin Sodium (Porcine) (Heparin -) 5,000 unit IVPUSH PRN PRN PRN Reason: Heparin Last Admin: 05/26/17 16:49 Dose: 5,000 unit Heparin Sodium (Porcine) 25, (000 unit/ Sodium Chloride) 500 mls @ 20 mls/hr IV TITR LYUDMILA; 1,000 UNIT/HR PRN Reason: Protocol Last Admin: 05/27/17 14:17 Dose: 37 mls/hr Insulin Aspart (Novolog Vial Sliding Scale -) 1 vial SQ ACHS [facility] PRN Reason: Protocol Last Admin: 05/27/17 12:02 Dose: Not Given Levothyroxine Sodium (Synthroid -) 50 mcg PO AM [facility] Last Admin: 05/27/17 06:24 Dose: 50 mcg Losartan Potassium (Cozaar -) 25 mg PO DAILY [facility] Last Admin: 05/27/17 10:40 Dose: 25 mg Montelukast Sodium (Singulair -) 10 mg PO HS [facility] Last Admin: 05/26/17 21:42 Dose: 10 mg Oxycodone HCl (Roxicodone -) 5 mg PO Q6H PRN Last Admin: 05/26/17 23:59 Dose: 5 mg Polyethylene Glycol (Miralax (For Daily Use) -) 17 gm PO DAILY [facility] Last Admin: 05/27/17 10:41 Dose: Not Given Potassium Chloride (K-Dur -) 20 meq PO TID [facility] Last Admin: 05/27/17 14:16 Dose: 20 meq Trimethoprim/Sulfamethoxazole (Bactrim Ds -) 1 each PO BID [facility] Last Admin: 05/27/17 12:01 Dose: Not Given Warfarin Sodium (Coumadin -) 4 mg PO DAILY@1800 [facility] Last Admin: 05/26/17 16:59 Dose: 4 mg Warfarin Sodium (Coumadin -) 6 mg PO ONCE@1800 ONE Stop: 05/27/17 18:01 - Objective Vital Signs: Vital Signs Temperature 97.8 F 05/27/17 09:00 Pulse Rate 85 05/27/17 10:40 Respiratory Rate 20 05/27/17 09:00 Blood Pressure 131/62 05/27/17 09:00 O2 Sat by Pulse Oximetry (%) 97 05/27/17 09:00 Constitutional: Yes: Calm Eyes: Yes: Conjunctiva Clear Cardiovascular: Yes: Pulse Irregular Respiratory: Yes: Diminished. No: Rales, Wheezes Gastrointestinal: Yes: Abdomen, Obese Genitourinary: No: WNL Musculoskeletal: Yes: Joint Stiffness (knees) Edema: LLE: 2+, RLE: 2+ (stasis changes) Wound/Incision: Yes: Dressing Dry and Intact Neurological: Yes: Alert Labs: CBC, BMP 05/27/17 06:00 05/27/17 06:00 INR, PTT INR 1.35 (0.82-1.09) H 05/27/17 06:00 Problem List - Problems (1) Osteomyelitis Assessment/Plan: Path report from amputation 2nd toe right foot shows no residual osteomyelitis. Off IV Rx and on Bactrim. Code(s): M86.9 - OSTEOMYELITIS, UNSPECIFIED Qualifiers: Osteomyelitis type: unspecified type Osteomyelitis location: foot Laterality: right Qualified Code(s): M86.9 - Osteomyelitis, unspecified (2) Atrial fibrillation Assessment/Plan: Heparin to Coumadin Code(s): I48.91 - UNSPECIFIED ATRIAL FIBRILLATION Qualifiers: Atrial fibrillation type: chronic Qualified Code(s): I48.2 - Chronic atrial fibrillation (3) Cellulitis Assessment/Plan: S/P amputation Code(s): L03.90 - CELLULITIS, UNSPECIFIED Qualifiers: Site of cellulitis: extremity Site of cellulitis of extremity: toe Laterality: right Qualified Code(s): L03.031 - Cellulitis of right toe (4) Chronic venous stasis dermatitis of both lower extremities Assessment/Plan: more pedal edema; will add additional lasix 40mg IV She is on [place]oxy[place] 1 a week on home. Code(s): I87.2 - VENOUS INSUFFICIENCY (CHRONIC) (PERIPHERAL) (5) COPD (chronic obstructive pulmonary disease) Assessment/Plan: No acute events in hospital Code(s): J44.9 - CHRONIC OBSTRUCTIVE PULMONARY DISEASE, UNSPECIFIED Qualifiers : COPD type: COPD with acute exacerbation Qualified Code(s): J44.1 - Chronic obstructive pulmonary disease with (acute) exacerbation (6) Diabetes Assessment/Plan: BGM'd being monitored. Code(s): E11.9 - TYPE 2 DIABETES MELLITUS WITHOUT COMPLICATIONS Qualifiers: Diabetes mellitus type: type 2 Diabetes mellitus complication status: with hyperglycemia Diabetes mellitus long-term insulin use: without long-term use Qualified Code(s): E11.65 - Type 2 diabetes mellitus with hyperglycemia; Z79.4 - intermediate frame tender (current) use of insulin
[2017-05-27] MEDS ORDERED: WARFARIN NA 3 MG TABLET PO ONE (18:00)
[2017-05-27] MEDS ORDERED: WARFARIN NA 2 MG TABLET (UD) PO ONE (18:00)
--- NOTE | 2017-05-27 18:25 | PN ---
Progress Note, Physician Chief Complaint: Not in distress History of Present Illness: Patient was seen and examined. Awake and alert. Chart was reviewed Denies chest pain, SOB or palpitations Tolerating therapy Post op toe amputation - Current Medication List Current Medications: Active Medications Acetaminophen (Tylenol -) 650 mg PO Q6H PRN PRN Reason: PAIN Aclidinium [place] (Tudorza -) 1 puff IH BID [facility] Last Admin: 05/27/17 10:44 Dose: 1 puff Albuterol Sulfate (Ventolin Hfa Inhaler -) 2 puff IH Q6H PRN PRN Reason: SHORTNESS OF BREATH Allopurinol (Zyloprim -) 100 mg PO DAILY [facility] Last Admin: 05/27/17 10:40 Dose: 100 mg Digoxin (Lanoxin -) 0.125 mg PO DAILY [facility] Last Admin: 05/27/17 10:40 Dose: 0.125 mg Diltiazem HCl (Cardizem Cd -) 180 mg PO DAILY [facility] Last Admin: 05/27/17 10:40 Dose: 180 mg Docusate Sodium (Colace -) 100 mg PO BID PRN PRN Reason: CONSTIPATION Last Admin: 05/25/17 22:07 Dose: 100 mg Furosemide (Lasix -) 80 mg PO DAILY [facility] Last Admin: 05/27/17 10:40 Dose: 80 mg Gabapentin (Neurontin -) 100 mg PO BID [facility] Last Admin: 05/27/17 10:40 Dose: 100 mg Glimepiride (Amaryl -) 2 mg PO BIDAC [facility] Last Admin: 05/27/17 17:08 Dose: 2 mg Guaifenesin (Robitussin Dm -) 5 ml PO Q6H PRN Heparin Sodium (Porcine) (Heparin -) 1,000 unit IVPUSH PRN PRN PRN Reason: Heparin Last Admin: 05/26/17 23:58 Dose: 1,000 unit Heparin Sodium (Porcine) (Heparin -) 5,000 unit IVPUSH PRN PRN PRN Reason: Heparin Last Admin: 05/26/17 16:49 Dose: 5,000 unit Heparin Sodium (Porcine) 25, (000 unit/ Sodium Chloride) 500 mls @ 20 mls/hr IV TITR LYUDMILA; 1,000 UNIT/HR PRN Reason: Protocol Last Admin: 05/27/17 14:17 Dose: 37 mls/hr Insulin Aspart (Novolog Vial Sliding Scale -) 1 vial SQ ACHS [facility] PRN Reason: Protocol Last Admin: 05/27/17 17:01 Dose: Not Given Levothyroxine Sodium (Synthroid -) 50 mcg PO AM [facility] Last Admin: 05/27/17 06:24 Dose: 50 mcg Losartan Potassium (Cozaar -) 25 mg PO DAILY [facility] Last Admin: 05/27/17 10:40 Dose: 25 mg Montelukast Sodium (Singulair -) 10 mg PO HS [facility] Last Admin: 05/26/17 21:42 Dose: 10 mg Oxycodone HCl (Roxicodone -) 5 mg PO Q6H PRN Last Admin: 05/26/17 23:59 Dose: 5 mg Polyethylene Glycol (Miralax (For Daily Use) -) 17 gm PO DAILY [facility] Last Admin: 05/27/17 10:41 Dose: Not Given Potassium Chloride (K-Dur -) 20 meq PO TID [facility] Last Admin: 05/27/17 14:16 Dose: 20 meq Trimethoprim/Sulfamethoxazole (Bactrim Ds -) 1 each PO BID [facility] Last Admin: 05/27/17 12:01 Dose: Not Given Warfarin Sodium (Coumadin -) 4 mg PO DAILY@1800 [facility] Last Admin: 05/26/17 16:59 Dose: 4 mg - Objective Vital Signs: Vital Signs Temperature 98.0 F 05/27/17 15:38 Pulse Rate 96 H 05/27/17 15:38 Respiratory Rate 20 05/27/17 09:00 Blood Pressure 129/56 05/27/17 15:38 O2 Sat by Pulse Oximetry (%) 97 05/27/17 09:00 Neck: Yes: Supple Cardiovascular: Yes: Pulse Irregular, S1, S2 Respiratory: Yes: Diminished Gastrointestinal: Yes: Normal Bowel Sounds, Soft, Abdomen, Obese. No: Tenderness Extremities: Yes: Amputation Edema: Yes Labs: CBC, BMP 05/27/17 06:00 05/27/17 06:00 INR, PTT INR 1.35 (0.82-1.09) H 05/27/17 06:00 Problem List - Problems (1) Atrial fibrillation Code(s): I48.91 - UNSPECIFIED ATRIAL FIBRILLATION Qualifiers: Atrial fibrillation type: chronic Qualified Code(s): I48.2 - Chronic atrial fibrillation (2) Chronic venous stasis dermatitis of both lower extremities Code(s): I87.2 - VENOUS INSUFFICIENCY (CHRONIC) (PERIPHERAL) (3) Morbid obesity Code(s): E66.01 - MORBID (SEVERE) OBESITY DUE TO EXCESS CALORIES (4) Osteomyelitis Code(s): M86.9 - OSTEOMYELITIS, UNSPECIFIED Qualifiers: Osteomyelitis type: unspecified type Osteomyelitis location: foot Laterality: right Qualified Code(s): M86.9 - Osteomyelitis, unspecified (5) COPD (chronic obstructive pulmonary disease) Code(s): J44.9 - CHRONIC OBSTRUCTIVE PULMONARY DISEASE, UNSPECIFIED Qualifiers : COPD type: COPD with acute exacerbation Qualified Code(s): J44.1 - Chronic obstructive pulmonary disease with (acute) exacerbation (6) Diabetes Code(s): E11.9 - TYPE 2 DIABETES MELLITUS WITHOUT COMPLICATIONS Qualifiers: Diabetes mellitus type: type 2 Diabetes mellitus complication status: with hyperglycemia Diabetes mellitus care home insulin use: without intermediate project manager use Qualified Code(s): E11.65 - Type 2 diabetes mellitus with hyperglycemia; Z79.4 - FDC (current) use of insulin (7) Diastolic dysfunction without heart failure Code(s): I51.9 - HEART DISEASE, UNSPECIFIED (8) HTN (hypertension) Code(s): I10 - ESSENTIAL (PRIMARY) HYPERTENSION Qualifiers: Hypertension type: essential hypertension Qualified Code(s): I10 - Essential (primary) hypertension Assessment/Plan 1. Right toe osteomyelitis post amputation 2. Coronary artery disease 3. Hypertension/hypertensive cardiovascular disease 4. Persistent atrial fibrillation 5. COPD 6. Morbid obesity 7. Type 2 diabetes mellitus 8. Acute on chronic LV failure - currently compensated 9. History of DVT 10. Chronic venous stasis 11. Possible metallic object in the right foot, etiology unclear (no mention in the surgical op note) PLAN: 1. Post op wound care 2. Continue Cardizem as tolerated. Continue Digoxin with caution. Agree with Heparin drip for bridging and Coumadin to achieve INR 2-3 3. Continue antibiotic coverage as per ID 4. Continue diuretics as tolerated Further plans are to follow. Matt Ferraro MD
[2017-05-27] MEDS ORDERED: INSULIN (NOVOLOG) ASPART 100 UNITS/ML 10ML VIAL ONE (21:00)
[2017-05-27] MEDS: oxyCODONE HCL 5 MG TABLET PO PRN (21:06)
[2017-05-27] MEDS: MONTELUKAST NA 10 MG TABLET PO SCH (21:07)
[2017-05-28] MEDS: HEPARIN - 25,000 UNIT in SODIUM CHLORIDE 495 ML IV SCH (03:17)
[2017-05-28] MEDS: GLIMEPIRIDE 2 MG TABLET (FP) PO SCH (06:15)
[2017-05-28] MEDS: POTASSIUM CHLORIDE TABS 20 MEQ TABLET.ER (FP) PO SCH ×2 (06:15→14:53)
[2017-05-28] MEDS: INSULIN SLIDING SCALE (NOVOLOG) 1 VIAL SQ SCH ×2 (06:16→11:53)
[2017-05-28] MEDS: LEVOTHYROXINE NA 50 MCG TABLET (FP) PO SCH (06:16)
[2017-05-28 08:23] LABS: MCH 25.8 pg (25.7-33.7); MCHC 31.2 g/dl (32.0-36.0); MEAN CELL VOLUME 82.7 fl (80-96); MEAN PLT VOLUME 7.7 fl (7.5-11.1); PLATELET COUNT 352 K/MM3 (134-434); RDW 20.1 % (11.6-15.6); WHITE BLOOD COUNT 11.1 K/mm3 (4.0-10.0)
[2017-05-28 08:34] LABS: INR 1.61 (0.82-1.09); PROTHROMBIN TIME (PATIENT) 17.9 SEC (9.98-11.88)
[2017-05-28] MEDS: FUROSEMIDE 40 MG TABLET (FP) PO SCH (10:02)
[2017-05-28] MEDS: DIGOXIN 0.125 MG TABLET (FP) PO SCH (10:03)
[2017-05-28] MEDS: POLYETHYLENE GLYCOL 3350 119 GM BTL PO SCH (10:03)
[2017-05-28] MEDS: ALLOPURINOL 100 MG TABLET (FP) PO SCH (10:03)
[2017-05-28] MEDS: GABAPENTIN 100 MG CAPSULE (FP) PO SCH (10:03)
[2017-05-28] MEDS: LOSARTAN POTASSIUM 25 MG TABLET PO SCH (10:03)
[2017-05-28] MEDS: SULFAMETHOXAZOLE/TRIMETHOPRIM 800MG/160MG D.S. TABLET PO SCH (10:03)
[2017-05-28] MEDS: ACLIDINIUM BROMIDE 400 MCG/INH AERO.POWD IH SCH (10:04)
--- NOTE | 2017-05-28 11:05 | PN ---
Progress Note (short form) - Note Progress Note: alert s/p right second toe amputation 05/23/17 feels well states she is confused about her lasix she is confused about weightbearing on the operated foot refusing SNF Vital Signs Period Temp Pulse Resp BP Sys/Luke Pulse Ox Last 24 Hr 98 F-99 F 78-96 20-20 110-140/55-72 98 cor-rrr lungs clear abd pannus ext dressing intact bilateral venous stasis CBC, BMP 05/28/17 07:05 05/27/17 06:00 pathology with clean margins at resection site a/p soft tissue infection of her second toe osteomyelitis of the right second toe-s/p amputation bone biopsy margins have no osteomyelitis continue bactrim- plan one to two weeks of bactrim based on clinical healing of foot wound NEEDS BMP, INR CHECKED WHILE ON BACTRIM she would benefit from SNF I am concerned about her wound healing given her obesity and abilities to care for herself WILL NEED CLOSE OUTPT F/U SHE IS REFUSING SNF AND WANTS TO GO HOME afib- on a/c venous stasis morbid obesity d/w Dr Storey Problem List - Problems (1) Cellulitis Code(s): L03.90 - CELLULITIS, UNSPECIFIED Qualifiers: Site of cellulitis: extremity Site of cellulitis of extremity: toe Laterality: right Qualified Code(s): L03.031 - Cellulitis of right toe (2) Osteomyelitis Code(s): M86.9 - OSTEOMYELITIS, UNSPECIFIED Qualifiers: Osteomyelitis type: unspecified type Osteomyelitis location: foot Laterality: right Qualified Code(s): M86.9 - Osteomyelitis, unspecified (3) Chronic venous stasis dermatitis of both lower extremities Code(s): I87.2 - VENOUS INSUFFICIENCY (CHRONIC) (PERIPHERAL) (4) Morbid obesity Code(s): E66.01 - MORBID (SEVERE) OBESITY DUE TO EXCESS CALORIES
--- NOTE | 2017-05-28 12:19 | PN ---
Progress Note, Physician History of Present Illness: Right foot bandaged, denies discomfort. - Current Medication List Current Medications: Active Medications Acetaminophen (Tylenol -) 650 mg PO Q6H PRN PRN Reason: PAIN Aclidinium [place] (Tudorza -) 1 puff IH BID [facility] Last Admin: 05/28/17 10:04 Dose: 1 puff Albuterol Sulfate (Ventolin Hfa Inhaler -) 2 puff IH Q6H PRN PRN Reason: SHORTNESS OF BREATH Allopurinol (Zyloprim -) 100 mg PO DAILY [facility] Last Admin: 05/28/17 10:03 Dose: 100 mg Digoxin (Lanoxin -) 0.125 mg PO DAILY [facility] Last Admin: 05/28/17 10:03 Dose: 0.125 mg Diltiazem HCl (Cardizem Cd -) 180 mg PO DAILY [facility] Last Admin: 05/28/17 10:03 Dose: 180 mg Docusate Sodium (Colace -) 100 mg PO BID PRN PRN Reason: CONSTIPATION Last Admin: 05/25/17 22:07 Dose: 100 mg Furosemide (Lasix -) 80 mg PO DAILY [facility] Last Admin: 05/28/17 10:02 Dose: 80 mg Gabapentin (Neurontin -) 100 mg PO BID [facility] Last Admin: 05/28/17 10:03 Dose: 100 mg Glimepiride (Amaryl -) 2 mg PO BIDAC [facility] Last Admin: 05/28/17 06:15 Dose: 2 mg Guaifenesin (Robitussin Dm -) 5 ml PO Q6H PRN Heparin Sodium (Porcine) (Heparin -) 1,000 unit IVPUSH PRN PRN PRN Reason: Heparin Last Admin: 05/26/17 23:58 Dose: 1,000 unit Heparin Sodium (Porcine) (Heparin -) 5,000 unit IVPUSH PRN PRN PRN Reason: Heparin Last Admin: 05/26/17 16:49 Dose: 5,000 unit Heparin Sodium (Porcine) 25, (000 unit/ Sodium Chloride) 500 mls @ 20 mls/hr IV TITR LYUDMILA; 1,000 UNIT/HR PRN Reason: Protocol Last Admin: 05/28/17 03:17 Dose: 37 mls/hr Insulin Aspart (Novolog Vial Sliding Scale -) 1 vial SQ ACHS [facility] PRN Reason: Protocol Last Admin: 05/28/17 11:53 Dose: Not Given Levothyroxine Sodium (Synthroid -) 50 mcg PO AM [facility] Last Admin: 05/28/17 06:16 Dose: 50 mcg Losartan Potassium (Cozaar -) 25 mg PO DAILY [facility] Last Admin: 05/28/17 10:03 Dose: 25 mg Montelukast Sodium (Singulair -) 10 mg PO HS [facility] Last Admin: 05/27/17 21:07 Dose: 10 mg Oxycodone HCl (Roxicodone -) 5 mg PO Q6H PRN Last Admin: 05/27/17 21:06 Dose: 5 mg Polyethylene Glycol (Miralax (For Daily Use) -) 17 gm PO DAILY [facility] Last Admin: 05/28/17 10:03 Dose: Not Given Potassium Chloride (K-Dur -) 20 meq PO TID [facility] Last Admin: 05/28/17 06:15 Dose: 20 meq Trimethoprim/Sulfamethoxazole (Bactrim Ds -) 1 each PO BID [facility] Last Admin: 05/28/17 10:03 Dose: 1 each Warfarin Sodium (Coumadin -) 4 mg PO DAILY@1800 [facility] Last Admin: 05/26/17 16:59 Dose: 4 mg - Objective Vital Signs: Vital Signs Temperature 98.2 F 05/28/17 09:00 Pulse Rate 78 05/28/17 10:03 Respiratory Rate 20 05/28/17 09:00 Blood Pressure 140/69 05/28/17 09:00 O2 Sat by Pulse Oximetry (%) 98 05/27/17 20:21 Constitutional: Yes: No Distress, Calm Neck: Yes: Supple Cardiovascular: Yes: Pulse Irregular Respiratory: Yes: Regular, Diminished Gastrointestinal: Yes: Normal Bowel Sounds, Soft, Abdomen, Obese Edema: Yes Edema: LLE: Trace, RLE: Trace Wound/Incision: Yes: Dressing Dry and Intact Labs: CBC, BMP 05/28/17 07:05 INR, PTT INR 1.61 (0.82-1.09) H 05/28/17 07:05 Problem List - Problems (1) Atrial fibrillation Code(s): I48.91 - UNSPECIFIED ATRIAL FIBRILLATION Qualifiers: Atrial fibrillation type: chronic Qualified Code(s): I48.2 - Chronic atrial fibrillation (2) Cellulitis Code(s): L03.90 - CELLULITIS, UNSPECIFIED Qualifiers: Site of cellulitis: extremity Site of cellulitis of extremity: toe Laterality: right Qualified Code(s): L03.031 - Cellulitis of right toe (3) Chronic venous stasis dermatitis of both lower extremities Code(s): I87.2 - VENOUS INSUFFICIENCY (CHRONIC) (PERIPHERAL) (4) Morbid obesity Code(s): E66.01 - MORBID (SEVERE) OBESITY DUE TO EXCESS CALORIES (5) Osteomyelitis Code(s): M86.9 - OSTEOMYELITIS, UNSPECIFIED Qualifiers: Osteomyelitis type: unspecified type Osteomyelitis location: foot Laterality: right Qualified Code(s): M86.9 - Osteomyelitis, unspecified (6) COPD (chronic obstructive pulmonary disease) Code(s): J44.9 - CHRONIC OBSTRUCTIVE PULMONARY DISEASE, UNSPECIFIED Qualifiers : COPD type: COPD with acute exacerbation Qualified Code(s): J44.1 - Chronic obstructive pulmonary disease with (acute) exacerbation (7) Chronic wound of extremity Code(s): [id number] - (8) Diabetes Code(s): E11.9 - TYPE 2 DIABETES MELLITUS WITHOUT COMPLICATIONS Qualifiers: Diabetes mellitus type: type 2 Diabetes mellitus complication status: with hyperglycemia Diabetes mellitus terminal worker insulin use: without terminal worker use Qualified Code(s): E11.65 - Type 2 diabetes mellitus with hyperglycemia; Z79.4 - terminal carman (current) use of insulin (9) Diastolic dysfunction without heart failure Code(s): I51.9 - HEART DISEASE, UNSPECIFIED (10) HTN (hypertension) Code(s): I10 - ESSENTIAL (PRIMARY) HYPERTENSION Qualifiers: Hypertension type: essential hypertension Qualified Code(s): I10 - Essential (primary) hypertension Assessment/Plan 1. 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 CAD angina pectoris, stable 3. Diastolic LV dysfunction with chronic class I NYHA classification LV congestive heart failure, compensated/euvolemic 4. Permanent atrial fibrillation [id number] score of 7 on Heparin -> Coumadin per INR 5. HTN/hypertensive cardiovascular disease 6. Type 2 DM 7. Hypothyroidism 8. COPD 9. CKD 10. History of DVT 11. Chronic venous stasis PLAN: 1. Continue Cardizem CD 180 qd and losartan 25 qd 2. Continue Digoxin 0.125 qd with caution and close monitoring of Digoxin level 3. Decrease Lasix 40 qd 4. Continue Heparin gtt- > Coumadin per INR 2-3 5. Complete abx course per ID
[2017-05-28 12:26] LABS: ANION GAP 4 (8-16); CALCIUM 9.4 mg/dL (8.5-10.1); CO2 32 mmol/L (21-32); GLUCOSE,RANDOM 127 mg/dL (74-106)
[2017-05-28] MEDS ORDERED: FUROSEMIDE 40 MG TABLET (FP) PO SCH (12:27)
[2017-05-28 12:28] LABS: CREATININE 0.9 mg/dL (0.55-1.02)
[2017-05-28 14:22] VITALS: BP 129/67; PULSE 91; TEMP 97.9
--- NOTE | 2017-05-28 18:39 | DS ---
Physical Examination Vital Signs: Vital Signs Temperature 97.9 F 05/28/17 14:20 Pulse Rate 91 H 05/28/17 14:20 Respiratory Rate 18 05/28/17 14:20 Blood Pressure 129/67 05/28/17 14:20 O2 Sat by Pulse Oximetry (%) 98 05/28/17 09:00 Constitutional: Yes: Calm Neck: Yes: Supple Cardiovascular: Yes: Pulse Irregular Respiratory: Yes: Diminished. No: Rales, Wheezes Gastrointestinal: Yes: Abdomen, Obese (pannus) Renal/: No: Bae Present Edema: LLE: Trace, RLE: Trace Wound/Incision: Yes: Dressing Dry and Intact Neurological: Yes: Alert Labs: CBC, BMP 05/28/17 07:05 05/28/17 11:40 Discharge Summary Reason For Visit: HYPOKALEMIA CELLULITIS AFIB (MRSA) acute osteomyelitis second toe right foot. Acute cellulitis second toe right foot. Chronic stasis changes both lower extremities acute Diabetes mellitus [id number] Morbid obesity Abdominal pannus Atrial fibrillation on Coumadin. Hypertension. Status post amputation second toe right foot Procedures: Principal: amputation second toe right foot after nuclear bone scan completed showing osteomyelitis. Other Procedures: IV antibiotics. Followup blood glucose monitoring. Lab tests. Consultations by infectious disease, foot DrFunmi and cardiology Hospital Course: slow to improve partially due to obesity and degenerative joint disease. Recommended long-term facility but patient refuses. Spoke to foot yesterday and visiting nurse will visit every other day to change bandage. Also arrange for physical therapy to be done at home. She has weekly labs to her house for profile, CBC and INR Condition: Stable - Instructions Diet, Activity, Other Instructions: No added salt or sugar. Resume weekly home lab See Dr. Ayoub in Wound care next friday06/03/17 VNS will visit and also add PT.; Nurse to change leg bandages every 2-3 days until you see the foot doctor. See Dr. Storey when Dr. Ayoub has discharged you. Referrals: Pastor Ayoub MD [Staff Physician] - Xavi Storey MD [Primary Care Provider] - Disposition: VNS/HOME HEALTH CARE - Home Medications Comprehensive Discharge Medication List: Ambulatory Orders Albuterol Sulfate Inhaler - [Ventolin HFA Inhaler -] 2 inh IH Q6H PRN #0 inh 04/27 Allopurinol [Zyloprim -] 100 mg PO DAILY #0 tablet 06/22/13 Diltiazem Cd [Cardizem Cd -] 180 mg PO DAILY #0 cap.cd.24h 06/22/13 Montelukast Na [Singulair -] 10 mg PO HS #0 tablet 06/22/13 Acetaminophen [Tylenol .Regular Strength -] 650 mg PO Q6H PRN #240 tablet Tiotropium [place] [Spiriva] 1 inh PO DAILY #1 inhaler 06/23/13 Furosemide [Lasix -] 40 mg PO BID 03/02/14 Levothyroxine [Synthroid -] 50 mcg PO DAILY 03/02/14 Glimepiride [Amaryl] 2 mg PO BID 08/07/14 Digoxin [Lanoxin -] 1 tab PO DAILY #90 tablet 09/08/15 Oxycodone HCl [Roxicodone -] 5 mg PO Q12H PRN #0 tablet 09/08/15 Docusate Sodium [Colace -] 100 mg PO BID PRN #0 cap 04/29/17 Polyethylene Glycol 3350 [Miralax 119 gm Btl -] 17 gm PO DAILY #1 bottle Potassium Chloride [K-Dur -] 20 meq PO TID tab 04/29/17 Gabapentin [Neurontin -] 100 mg PO BID #60 cap 05/28/17 Losartan Potassium [Cozaar -] 25 mg PO DAILY #30 tablet 05/28/17 Sulfamethoxazole/Trimethoprim [Bactrim DS -] 1 each PO BID #30 tablet 05/28/17 Warfarin Na [Coumadin -] 4 mg PO DAILY@1800 tablet 05/28/17
== END 2017-05-28 17:55 | disposition home health service (06) | DRG 617 ==
LOC: JER 19:40 → JERBED 05-15 01:37 → UNDOADMIN 05-15 01:50 → JERBED 05-15 01:50 → J4S 05-15 13:29 → J6S 05-18 21:30
PROVIDERS: ADMIT Internal Medicine; ATTEND Internal Medicine
PROC: 0QBN0ZX Excision of Right Metatarsal, Open Approach, Diagnostic (ICD-10-PCS; 2017-05-23)
PROC: 0Y6R0Z0 Detachment at Right 2nd Toe, Complete, Open Approach (ICD-10-PCS; principal; 2017-05-23 07:30)
DX: E11.69 Type 2 diabetes mellitus with other specified complication (principal); Z68.43 Body mass index [BMI] 50.0-59.9, adult; M86.171 Other acute osteomyelitis, right ankle and foot; L97.929 Non-pressure chronic ulcer of unspecified part of left lower leg with unspecified severity; L97.919 Non-pressure chronic ulcer of unspecified part of right lower leg with unspecified severity; L03.031 Cellulitis of right toe; I48.2 Chronic atrial fibrillation; I25.10 Atherosclerotic heart disease of native coronary artery without angina pectoris; J44.9 Chronic obstructive pulmonary disease, unspecified; F03.90 Unspecified dementia, unspecified severity, without behavioral disturbance, psychotic disturbance, mood disturbance, and anxiety; I10 Essential (primary) hypertension; E78.00 Pure hypercholesterolemia, unspecified; E03.9 Hypothyroidism, unspecified; K44.9 Diaphragmatic hernia without obstruction or gangrene; E87.6 Hypokalemia; E83.42 Hypomagnesemia; E88.09 Other disorders of plasma-protein metabolism, not elsewhere classified; D64.9 Anemia, unspecified; M10.9 Gout, unspecified; E66.01 Morbid (severe) obesity due to excess calories; I87.2 Venous insufficiency (chronic) (peripheral); M17.0 Bilateral primary osteoarthritis of knee; E65 Localized adiposity; E11.622 Type 2 diabetes mellitus with other skin ulcer; I11.0 Hypertensive heart disease with heart failure; I50.9 Heart failure, unspecified; Z86.718 Personal history of other venous thrombosis and embolism; Z79.01 Long term (current) use of anticoagulants; Z87.891 Personal history of nicotine dependence; Z79.4 Long term (current) use of insulin
CPT/HCPCS: 36415; 71010-TC; 73630-TC-RT; 78315-TC; 80048; 80053; 80162; 83605; 83735; 84100; 84443; 84550; 85025; 85027; 85610; 85651; 85730; 86140; 87040; 87070; 87075; 87186; 87205; 88304-TC; 88305-TC; 88311-TC; 93005; 93010; 93925-TC; 94760; 97116-GP; 97161-GP; 99284-25; A9503; G0480; J1644

== ENCOUNTER 2017-07-19 21:18 | Inpatient (IN) | payer OTHER ==
--- NOTE | 2017-07-19 21:33 | PDOC ---
Attending Attestation - Resident Resident Name: Heather Simental - HPI HPI: 07/20/17 01:02 EDT Pt fell at home and family found her after she managed to crawl to phone and call them. Fire department and EMS managed to lift her up. Pt has no dizziness ; she slipepd with her cane while she was walking carrying coffee at home. She has had no dizziness, though she mentions having more headaches recently. Pt had a toe amputation and the toe smells, despite hytperbaric oxygenation in the past. - Physicial Exam PE: 07/20/17 01:05 EDT Pt has diabetic foot on the right side; infection where the middle toe was amputated; foot appears cellulitic 07/20/17 01:07 EDT agree with resident's exam. Pt is alert and oriented. Abd soft NT; muliple surgical scars from the past (appendectomy, hyterectomy; multiple ventral hernias, etc) Lungs clear; heart normal. - Medical Decision Making 07/20/17 01:09 EDT Pt will be given unasyn for her foot; morphine and tylenol for joint pains. Still awaiting hip and knee xrays; CT head shows an incidental arachnoid cyst that is 4.5cm x 2cm 07/20/17 01:10 EDT PMD [place], who admits to Jose, who admits to the hospitalist.
--- NOTE | 2017-07-19 21:34 | PDOC ---
History of Present Illness <Ivania Ramos - Last Filed: 07/20/17 01:27 EST> - General History Source: Patient, Family - History of Present Illness Initial Comments: 07/19/17 21:53 Patient is an obese 82 yo F with PMHx of multiple abdominal sx (appy, dominique, hysterectomy), asthma, atrial fibrillation on warfarin, COPD, CHF, CAD, dementia , HTN, hypercholesterolemia, hypothyroidism, and diabetes, MRSA, presented to the ED s/p mechanical fall after slipping on coffee that occurred around 4pm. She fell on the right side of her body. She was on the floor for 3-4 hours. She complains of right knee and hip pain with movement. Patient denies hitting head and LOC. She denies headache, nausea, vomiting, dizziness, chest pain, and palpitations. <Heather Simnetal - Last Filed: 07/20/17 02:29> - General Chief Complaint: Injury Stated Complaint: FELL Time Seen by Provider: 07/19/17 21:32 Past History <Ivania Ramos - Last Filed: 07/20/17 01:27 EST> - Past Medical History Anemia: No Asthma: Yes Cancer: No Cardiac Disorders: Yes (ATRIAL FIBRILLATION) CVA: No COPD: Yes CHF: Yes Dementia: Yes Diabetes: Yes GI Disorders: No (HIATAL HERNIA, OBSTRUCTION) Disorders: Yes (uti) HTN: Yes Hypercholesterolemia: Yes Liver Disease: No Seizures: No Thyroid Disease: Yes (HYPO) - Surgical History Abdominal Surgery: Yes (HERNIA REPAIR X 3) Appendectomy: Yes (RUPTURED) Cardiac Surgery: Yes (cardioversion x 2) Cholecystectomy: Yes Lung Surgery: No Neurologic Surgery: No Orthopedic Surgery: No - Immunization History Immunization Up to Date: Yes - Suicide/Smoking/Psychosocial Hx Smoking Status: No Smoking History: Former smoker Have you smoked in the past 12 months: No Number of Cigarettes Smoked Daily: 0 If you are a former smoker, when did you quit?: 2007 Cigars Per Day: 20 Hx Alcohol Use: No Drug/Substance Use Hx: No Substance Use Type: None Hx Substance Use Treatment: No <Heather Simental - Last Filed: 07/20/17 02:29> - Past Medical History Allergies/Adverse Reactions: Allergies Allergy/AdvReac Type Severity Reaction Status Date / Time No Known Allergies Allergy Verified 07/19/17 21:39 Home Medications: Ambulatory Orders Albuterol Sulfate Inhaler - [Ventolin HFA Inhaler -] 2 inh IH Q6H PRN #0 inh 04/27 Allopurinol [Zyloprim -] 100 mg PO DAILY #0 tablet 06/22/13 Diltiazem Cd [Cardizem Cd -] 180 mg PO DAILY #0 cap.cd.24h 06/22/13 Montelukast Na [Singulair -] 10 mg PO HS #0 tablet 06/22/13 Acetaminophen [Tylenol .Regular Strength -] 650 mg PO Q6H PRN #240 tablet Tiotropium [place] [Spiriva] 1 inh PO DAILY #1 inhaler 06/23/13 Furosemide [Lasix -] 40 mg PO BID 03/02/14 Levothyroxine [Synthroid -] 50 mcg PO DAILY 03/02/14 Glimepiride [Amaryl] 2 mg PO BID 08/07/14 Digoxin [Lanoxin -] 1 tab PO DAILY #90 tablet 09/08/15 Oxycodone HCl [Roxicodone -] 5 mg PO Q12H PRN #0 tablet 09/08/15 Docusate Sodium [Colace -] 100 mg PO BID PRN #0 cap 04/29/17 Polyethylene Glycol 3350 [Miralax 119 gm Btl -] 17 gm PO DAILY #1 bottle Potassium Chloride [K-Dur -] 20 meq PO TID tab 04/29/17 Gabapentin [Neurontin -] 100 mg PO BID #60 cap 05/28/17 Losartan Potassium [Cozaar -] 25 mg PO DAILY #30 tablet 05/28/17 Warfarin Na [Coumadin -] 4 mg PO DAILY@1800 tablet 05/28/17 Trauma Specific PMHX - Complaint Specific PMHX Arthritis: Yes <Heather Simental - Last Filed: 07/20/17 02:29> Review of Systems - Review of Systems Able to Perform ROS?: Yes Constitutional: No: Chills, Diaphoresis HEENTM: No: Recent change in vision Respiratory: No: Cough, Shortness of Breath, Productive cough Cardiac (ROS): No: Chest Pain ABD/GI: No: Nausea, Vomiting Musculoskeletal: Yes: Joint Pain (b/l knees) Neurological: No: Headache, Numbness, Tingling <Heather Simental - Last Filed: 07/20/17 02:29> *Physical Exam - Vital Signs Last Vital Signs Temp Pulse Resp BP Pulse Ox 97.4 F L 93 H 18 148/53 96 07/19/17 21:31 07/19/17 21:31 07/19/17 21:31 07/19/17 21:31 07/19/17 21:31 <Ivania Ramos - Last Filed: 07/20/17 01:27 EST> - Physical Exam Comments: 07/19/17 22:10 CONSTITUTIONAL: awake and alert; morbidly obese; in no apparent distress HEAD: NC, no bruises or bumps EYES: PERRL; EOMI NECK: Supple CARD: irregularly irregular; Normal S1, S2; no murmurs, rubs, or gallops RESP: CTA b/l, no rales rhonchi or wheeezing ABD: Soft, non-distended; non-tender; no palpable organomegaly, no palpable hernias MS: Limited LE examination due to body habitus. Knee and right hip pain with flexion EXT: + b/l extensive venous stasis dermatitis, foul smelling, dry wound at site of toe amputation on right foot SKIN: Warm, dry, + extensive venous stasis dermatitis b/l LE NEURO: No focal neurological deficiencies. <Heather Simental - Last Filed: 07/20/17 02:29> ED Treatment Course - LABORATORY CBC & Chemistry Diagram: 07/19/17 23:40 07/19/17 23:40 - ADDITIONAL ORDERS Additional order review: Laboratory Results 07/19/17 07/19/17 07/19/17 23:40 23:40 23:40 PT with INR 33.70 H INR 2.98 H D Sodium 141 Potassium 3.3 L D Chloride 102 Carbon Dioxide 31 Anion Gap 8 BUN 21 H Creatinine 0.6 D Creat Clearance w eGFR > 60 Random Glucose 141 H Calcium 8.9 Total Bilirubin 0.9 AST 23 D ALT 16 D Alkaline Phosphatase 122 H D Total Protein 7.4 Albumin 3.2 L Digoxin 0.6429 L 07/19/17 23:40 RBC 4.92 D MCV 80.5 MCHC 31.7 L RDW 18.8 H MPV 7.9 - Medications Given in the ED: ED Medications Discontinued Medications Generic Name Dose Route Start Last Admin Trade Name Basil PRN Reason Stop Dose Admin Acetaminophen 1,000 mg 07/20/17 00:13 07/20/17 00:41 Ofirmev Injection - IVPB 07/20/17 00:14 1,000 mg ONCE ONE Administration Magnesium Sulfate 2 gm 07/20/17 00:43 07/20/17 01:17 EDT Magnesium Sulfate IVPB 07/20/17 00:44 2 gm ONCE ONE Administration Morphine Sulfate 2 mg 07/20/17 01:05 EST 07/20/17 01:18 EDT Morphine Injection - IVPUSH 07/20/17 01:06 EST 2 mg ONCE ONE Administration Potassium Chloride 40 meq 07/20/17 00:43 07/20/17 01:17 EDT K-Dur - PO 07/20/17 00:44 40 meq ONCE ONE Administration <Ivania Ramos - Last Filed: 07/20/17 01:27 EST> - LABORATORY CBC & Chemistry Diagram: 07/19/17 23:40 07/19/17 23:40 <Heather Simental - Last Filed: 07/20/17 02:29> Medical Decision Making - Medical Decision Making CBC, CMP PT/INR Head CT EKG Dig Level UA Xray of right hip/pelvis, femur 07/20/17 00:49 CT Head: no acute intracranial abnormality. No hemorrhage. No visible infarct or solid mass. 4.5 x 2.2cm right frontoparietal junction subarachnoid cyst with chronic bony remodeling. 07/20/17 01:21 EST IV Unasyn for foot ulcer Acetaminophen for pain Awaiting X ray results Patient will be transferred to [facility]. Dr. Storey is PCP. <Heather Simental - Last Filed: 07/20/17 02:29> *DC/Admit/Observation/Transfer - Discharge Dispostion Admit: Yes <Ivania Ramos - Last Filed: 07/20/17 01:27 EST> <Heather Simental - Last Filed: 07/20/17 02:29> Diagnosis at time of Disposition: Chronic wound of extremity, Inability to ambulate due to right knee, Hip pain, bilateral, Morbid obesity - Discharge Dispostion Condition at time of disposition: Guarded - Referrals
[2017-07-19 21:48] VITALS: BMI 48.4
[2017-07-19 23:48] LABS: MCH 25.6 pg (25.7-33.7); MCHC 31.7 g/dl (32.0-36.0); MEAN CELL VOLUME 80.5 fl (80-96); MEAN PLT VOLUME 7.9 fl (7.5-11.1); PLATELET COUNT 291 K/MM3 (134-434); RDW 18.8 % (11.6-15.6); WHITE BLOOD COUNT 12.1 K/mm3 (4.0-10.0)
[2017-07-20 00:05] LABS: INR 2.98 (0.82-1.09); PROTHROMBIN TIME (PATIENT) 33.7 SEC (9.98-11.88)
[2017-07-20] MEDS ORDERED: ACETAMINOPHEN 1000 MG/100 ML VIAL (NON FORMULARY) IVPB ONE (00:13)
[2017-07-20 00:17] LABS: ALBUMIN 3.2 g/dl (3.4-5.0); ANION GAP 8 (8-16); BILIRUBIN,TOTAL 0.9 mg/dL (0.2-1.0); CALCIUM 8.9 mg/dL (8.5-10.1); CO2 31 mmol/L (21-32); CREATININE 0.6 mg/dL (0.55-1.02); GLUCOSE,RANDOM 141 mg/dL (74-106); SGOT/AST 23 U/L (15-37); SGPT/ALT 16 U/L (12-78); TOT PROT 7.4 g/dl (6.4-8.2)
[2017-07-20 00:18] LABS: ALK PHOS 122 U/L (45-117)
[2017-07-20] MEDS ORDERED: ACETAMINOPHEN INJECTION 100 ML IVPB ONE (00:35)
[2017-07-20] MEDS ORDERED: POTASSIUM CHLORIDE TABS 20 MEQ TABLET.ER (FP) PO ONE (00:43)
[2017-07-20] MEDS ORDERED: MAGNESIUM SULF 50% (8.12 MEQ/2 ML-1 GM VIAL) IVPB ONE (00:43)
[2017-07-20] MEDS ORDERED: AMPICILLIN NA/SULBACTAM NA 1.5 GM in SODIUM CHLORIDE 100 ML IVPB ONE (01:04)
[2017-07-20] MEDS ORDERED: morphine CARPU-JECT 2 MG/1 ML DISP.SYRIN IVPUSH ONE (01:05)
[2017-07-20] MEDS ORDERED: morphine SULFATE 4 MG/ML VIAL ONE (01:06)
[2017-07-20] MEDS ORDERED: POTASSIUM CHLORIDE ORAL LIQUID 20 MEQ/15 ML ONE (01:07)
[2017-07-20] MEDS ORDERED: MAGNESIUM SULF 50% (8.12 MEQ/2 ML-1 GM VIAL) ONE (01:07)
[2017-07-20] MEDS ORDERED: VANCOMYCIN 1,000 MG in DEXTROSE 5%-WATER - 250 ML IVPB ONE (01:26)
[2017-07-20] MEDS ORDERED: CEFEPIME HCL 2 GM VIAL (RESTRICTED TO ID) IVPB ONE (01:28)
[2017-07-20] MEDS ORDERED: ACETAMINOPHEN 325 MG TABLET (FP) PO PRN (01:37)
[2017-07-20] MEDS ORDERED: ONDANSETRON 4 MG/2 ML VIAL IVPB PRN (01:38)
--- NOTE | 2017-07-20 01:40 | HP ---
Admitting History and Physical - Admission Chief Complaint: fall, infected diabetic foot History of Present Illness: 82 yo F with PMHx of multiple abdominal sx (appy, dominique, hysterectomy), asthma , atrial fibrillation on warfarin, COPD, CHF, CAD, dementia, HTN, hypercholesterolemia, hypothyroidism, and diabetes w neuropathy, MRSA, presents to er after mechanical fall at home. pt denies loc, hitting head, sob, cp, heart palps, n/v/f/d. reports intermittent 'freezing" x 1 week. she reports recent right foot 2nd toe amputation by dr cross (podiatry). she reports increased wound drainage coming from right foot. she states she is going to hyperbaric O2 for wound healing. pmh/psh- multiple abdominal sx (appy, dominique, hysterectomy), asthma, atrial fibrillation on warfarin, COPD, CHF, CAD, dementia, HTN, hypercholesterolemia, hypothyroidism, and diabetes w neuropathy, MRSA social- denies tobacco, alcohol famhx- nc ros neg except for above pex gen- obese in nad, alert hent- at/nc, paco, neck supple trachea midline resp- mild wheeze, no rales, no ronchi, no cyanosis cards- s1s2 heard, no jvd skin- chronic venous stasis dermatitis to ble, 2nd toe amputation on right foot , increased warmth to dorsal foot, dry green slough, and mild redness hyperkarotoic feet, oncychomycosis neuro- cn 2-12 grossly intact, no facial droop, speech clear gi- protuberant, +bs, no guarding, no rigidity psych- cooperative, no agitation musk- no back pain prob list infected diabetic foot s/p 2nd toe amputation dm w neuropathy htn hlp hypothyroidism afib on ac copd chf cad fall hypokalemia leukocytosis a/p 82 yo F with PMHx of multiple abdominal sx (appy, dominique, hysterectomy), asthma, atrial fibrillation on warfarin, COPD, CHF, CAD, dementia, HTN, hypercholesterolemia, hypothyroidism, and diabetes w neuropathy, MRSA, presents to er after mechanical fall at home found to have possible infected diabetic foot. 1. ground level fall on cth negative x ray of hip pending physical therapy evaluation 2. diabetic neuropathy with possible diabetic foot infection s/p 2nd toe amputation started on unasyn in er given mrsa/dm history will add vanc and cefepime 05/2017 spect bone scan suggestive of osteomyelitis 2nd toe right foot f/u inflammatory markers pain control f/u wound cultures local wound care consult dr cross (podiatry) id consult ssi monitor f/s 3. htn cont home meds 4. afib on warfarin cont home meds monitor inr 5. chf cont home meds 6. hypothyroidism cont hoem meds 7.copd/asthma prn nebs 8. hypokalemia replete prn 9. mild leukocytosis monitor labs dvt prophy scd, oob, systemic ac fen diabetic diet dispo- requires > 2mn stay for possible infected diabetic foot History Source: Patient Limitations to Obtaining History: No Limitations - Past Medical History Cardiovascular: Yes: AFIB, CHF, Deep Vein Thrombosis, HTN, Hyperlipdemia Pulmonary: Yes: Asthma, COPD Gastrointestinal: Yes: Hiatal Hernia Musculoskeletal: Yes: Osteoarthritis Endocrine: Yes: Diabetes Mellitus, Hypothyroidism Dermatology: Yes: Cellulitis, Eczema - Past Surgical History Past Surgical History: Yes: Appendectomy, Cholecystectomy, Hernia Repair (times three), Oopherectomy, Tonsillectomy - Smoking History Smoking history: Former smoker Have you smoked in the past 12 months: No Aproximately how many cigarettes per day: 0 If you are a former smoker, when did you quit?: 2007 - Alcohol/Substance Use Hx Alcohol Use: No - Social History ADL: Independent History of Recent Travel: No Home Medications - Allergies Allergies/Adverse Reactions: Allergies Allergy/AdvReac Type Severity Reaction Status Date / Time No Known Allergies Allergy Verified 07/19/17 21:39 - Home Medications Home Medications: Ambulatory Orders Albuterol Sulfate Inhaler - [Ventolin HFA Inhaler -] 2 inh IH Q6H PRN #0 inh 04/27 Allopurinol [Zyloprim -] 100 mg PO DAILY #0 tablet 06/22/13 Diltiazem Cd [Cardizem Cd -] 180 mg PO DAILY #0 cap.cd.24h 06/22/13 Montelukast Na [Singulair -] 10 mg PO HS #0 tablet 06/22/13 Acetaminophen [Tylenol .Regular Strength -] 650 mg PO Q6H PRN #240 tablet Tiotropium [place] [Spiriva] 1 inh PO DAILY #1 inhaler 06/23/13 Furosemide [Lasix -] 40 mg PO BID 03/02/14 Levothyroxine [Synthroid -] 50 mcg PO DAILY 03/02/14 Glimepiride [Amaryl] 2 mg PO BID 08/07/14 Digoxin [Lanoxin -] 1 tab PO DAILY #90 tablet 09/08/15 Docusate Sodium [Colace -] 100 mg PO BID PRN #0 cap 04/29/17 Polyethylene Glycol 3350 [Miralax 119 gm Btl -] 17 gm PO DAILY #1 bottle Potassium Chloride [K-Dur -] 20 meq PO TID tab 04/29/17 Gabapentin [Neurontin -] 100 mg PO BID #60 cap 05/28/17 Losartan Potassium [Cozaar -] 25 mg PO DAILY #30 tablet 05/28/17 Warfarin Na [Coumadin -] 4 mg PO DAILY@1800 tablet 05/28/17 Amox-Tr/K Cl [Augmentin 875-125mg Tablet -] 1 tab PO BID@0800,1730 tablet 07/29 Clotrimazole [Lotrimin -] 1 applic TP BID tube 07/29/17 Insulin Sliding Scale [Novolog Vial Sliding Scale -] 1 vial SQ TIDAC units Levofloxacin [Levaquin -] 500 mg PO DAILY@0600 tablet 07/29/17 Oxycodone HCl [Roxicodone -] 5 mg PO Q6H PRN tablet MDD 4 07/29/17 Triamcinolone 0.1% Cream [Aristocort 0.1% Cream -] 1 applic TP BID applic 07/29 Family Disease History - Family Disease History Family Disease History: Heart Disease: Mother ([place]), Other: Father (ETOH cirrhosis), Sister (alive and well) Physical Examination Vital Signs: Vital Signs Temperature 97.4 F L 07/19/17 21:31 Pulse Rate 93 H 07/19/17 21:31 Respiratory Rate 18 07/19/17 21:31 Blood Pressure 148/53 07/19/17 21:31 O2 Sat by Pulse Oximetry (%) 96 07/19/17 21:31 Labs: CBC, BMP 07/19/17 23:40 07/19/17 23:40 Visit type - Emergency Visit Emergency Visit: Yes ED Registration Date: 07/20/17 Care time: The patient presented to the Emergency Department on the above date and was hospitalized for further evaluation of their emergent condition. - New Patient This patient is new to me today: Yes Date on this admission: 08/03/17 - Critical Care Critical Care patient: No
[2017-07-20] MEDS ORDERED: VANCOMYCIN 1 GRAM (PRE-DOCKED) 250 ML IVPB ONE (05:07)
[2017-07-20] MEDS ORDERED: CEFEPIME 100 ML IVPB ONE (05:09)
[2017-07-20 06:59] LABS: BASOPHIL 0.8 % (0-2.0); EOSINOPHIL 0.6 % (0-4.5); MCH 25.2 pg (25.7-33.7); MEAN CELL VOLUME 81.3 fl (80-96); MEAN PLT VOLUME 7.9 fl (7.5-11.1); NEUTROPHILS 80.5 % (42.8-82.8); PLATELET COUNT 296 K/MM3 (134-434); RDW 19.3 % (11.6-15.6); WHITE BLOOD COUNT 9.1 K/mm3 (4.0-10.0)
[2017-07-20 07:10] LABS: INR 2.54 (0.82-1.09); PROTHROMBIN TIME (PATIENT) 28.7 SEC (9.98-11.88)
[2017-07-20 07:23] LABS: ANION GAP 12 (8-16); CALCIUM 9.1 mg/dL (8.5-10.1); CO2 26 mmol/L (21-32); CREATININE 0.8 mg/dL (0.55-1.02); GLUCOSE,RANDOM 205 mg/dL (74-106)
--- NOTE | 2017-07-20 09:17 | PN ---
Progress Note (short form) - Note Progress Note: ID Full note dictated Selected Entries 07/19/17 21:31 Temperature 97.4 F L Pulse Rate 93 H Blood Pressure 148/53 Weight 300 lb Infected erythematous foul smelling amputation site 2nd toe right Microbiology 05/23/17 10:38 Toe - Right Second Gram Stain - Final 05/23/17 10:38 Toe - Right Second Wound Culture - Final Staphylococcus Coagulase Neg 05/23/17 10:38 Bone Gram Stain - Final 05/23/17 10:38 Bone Anaerobic Culture - Final Mr S Aureus Vr Ec Faecium NO ANAEROBES WERE ISOLATED Laboratory Tests 07/19/17 07/20/17 07/20/17 23:40 06:50 06:50 WBC 12.1 H Hgb 12.6 D Hct 39.6 D Plt Count 291 ESR 65 H BUN 22 H Creatinine 0.8 D Asssessment Infection amputation site right 2nd toe Plan Wound care follow up Resistant organism MRSA VREF Linezolid po and Zosyn Surgical f/u Isolation Jassi CHAUDHARI Problem List - Problems (1) Acute respiratory distress Code(s): J80 - ACUTE RESPIRATORY DISTRESS SYNDROME (2) Amputation stump infection Code(s): T87.40 - INFECTION OF AMPUTATION STUMP, UNSPECIFIED EXTREMITY (3) Infection with multi-drug resistant microorganisms Code(s): Z16.35 - RESISTANCE TO MULTIPLE ANTIMICROBIAL DRUGS
[2017-07-20] MEDS ORDERED: HEPARIN NA (PORCINE) 5,000 UNITS/ML 1ML VIAL SQ SCH (10:00)
--- NOTE | 2017-07-20 10:05 | CONS ---
DATE OF CONSULTATION: 07/20/2017 This is an 82-year-old female known diabetic with multiple comorbidities who presents after she fell at home and complained of pain in her left leg. She did not lose consciousness. She is admitted for this reason; however, I am asked to see her now because of a nonhealing amputation wound at the right 2nd toe, previously amputated by the case work aide, Dr. Ayoub, in early May. She has been receiving hyperbaric oxygen for several weeks and is unclear as to the progress of the wound. She denies any fevers or chills and I am asked to see her further wound care evaluation. 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 MEDICATIONS: Insulin. ALLERGIES: None known. SOCIAL HISTORY: Nonsmoker. Lives at home. No history of alcohol use. FAMILY HISTORY: Noncontributory. REVIEW OF SYSTEMS: Respiratory: No cough or shortness of breath. Cardiac: No chest pain, palpitations, syncope, murmur. Gastrointestinal: No nausea, vomiting, abdominal pain. Genitourinary: No dysuria, hematuria, urinary frequency. PHYSICAL EXAMINATION: General: She was a heavyset, alert woman in no acute distress. Vital Signs: The temperature was 97.4, pulse 93, blood pressure 150/53, respirations 18, weight 300 pounds. Neck: Supple without adenopathy. Lungs: Clear to percussion and auscultation. Heart: S1, S2, regular rhythm without audible murmur or gallop. Abdomen: Obese, soft, not distended, nontender. No organomegaly. Extremities: An open amputation site wound at the right 2nd toe area. The wound was erythematous, the toes were swollen. Purulent drainage was noted from the incision at the amputation site, which was foul-smelling. The white count was 12.1, hemoglobin 12.6, platelets 291. Sedimentation rate of 65. BUN 21, creatinine 0.6. Wound cultures in bone, May 23, 2017: MRSA, VRE. X-ray of the foot currently pending. ASSESSMENT: An 82-year-old female with diabetes and multiple other comorbidities admitted now for a fall and noted to have a poorly-healing, infected wound at an amputation site from early May; previous history of multidrug-resistant organisms cultures; methicillin-resistant Staphylococcus aureus, and vancomycin-resistant Enterococcus faecium. This should be aggressively treated with antibiotics. Will await followup with Dr. Ayoub for reevaluation. She will be wound cultured and empirically treated with a combination of linezolid orally and piperacillin tazobactam every 8 hours. A wound culture will be ordered, along with blood cultures. MARIO ZAVALETA M.D. LOLITA/[id number]
[2017-07-20] MEDS: INSULIN SLIDING SCALE (NOVOLOG) 1 VIAL SQ SCH ×3 (10:44→17:04)
[2017-07-20] MEDS: CLOTRIMAZOLE 1% CREAM 15 GM TUBE TP SCH ×2 (10:45→22:55)
[2017-07-20] MEDS: AMMONIUM LACTATE 12% LOTION 225 GM BOTTLE TP SCH ×2 (10:45→22:54)
[2017-07-20] MEDS ORDERED: PIPERACILLIN/TAZOB 4.5 GM 100 ML IVPB ONE (10:46)
[2017-07-20] MEDS: PIPERACILLIN/TAZOB 4.5 GM 100 ML IVPB SCH ×2 (11:46→18:30)
[2017-07-20] MEDS: LINEZOLID 600 MG TABLET (RESTRICTED TO ID) PO SCH ×2 (11:46→22:54)
--- NOTE | 2017-07-20 14:17 | PN ---
Progress Note (short form) - Note Progress Note: Patient seen and examined. Admission H&P from 07/20/17 reviewed. Labs/ xray and consult from Dr. Keene reviewed
[2017-07-20 16:55] LABS: URINE APPEARANCE CLOUDY; URINE BILIRUBIN NEGATIVE (NEGATIVE); URINE BLOOD 1+ (NEGATIVE); URINE COLOR YELLOW; URINE GLUCOSE (UA) NEGATIVE (NEGATIVE); URINE KETONE NEGATIVE (NEGATIVE); URINE NITRITE NEGATIVE (NEGATIVE); URINE PROTEIN NEGATIVE (NEGATIVE); URINE UROBILINOGEN NEGATIVE mg/dL (0.2-1.0)
[2017-07-20 16:59] LABS: URINE RBC 3; URINE WBC 782
[2017-07-20] MEDS ORDERED: DOCUSATE SODIUM 100 MG CAPSULE (FP) PO PRN (18:42)
[2017-07-20] MEDS ORDERED: oxyCODONE HCL 5 MG TABLET PO PRN (18:42)
[2017-07-20] MEDS ORDERED: ALBUTEROL SO4 0.083% IH SOL 2.5 MG/3 ML VIAL.NEB. NEB PRN (18:47)
[2017-07-20 19:37] LABS: URINE LEUK ESTERASE 3+ (NEGATIVE)
[2017-07-20] MEDS ORDERED: PT OWN MED DRAWER 7, Y5N ONE (21:16)
[2017-07-20] MEDS: GABAPENTIN 100 MG CAPSULE (FP) PO SCH (22:27)
[2017-07-20] MEDS: MONTELUKAST NA 10 MG TABLET PO SCH (22:27)
[2017-07-20] MEDS: POTASSIUM CHLORIDE TABS 20 MEQ TABLET.ER (FP) PO SCH (22:27)
[2017-07-21] MEDS: PIPERACILLIN/TAZOB 4.5 GM 100 ML IVPB SCH ×3 (01:36→18:16)
[2017-07-21 02:30] LABS: URINE APPEARANCE CLEAR; URINE BILIRUBIN NEGATIVE (NEGATIVE); URINE BLOOD NEGATIVE (NEGATIVE); URINE COLOR YELLOW; URINE GLUCOSE (UA) NEGATIVE (NEGATIVE); URINE KETONE NEGATIVE (NEGATIVE); URINE NITRITE NEGATIVE (NEGATIVE); URINE PROTEIN NEGATIVE (NEGATIVE); URINE UROBILINOGEN NEGATIVE mg/dL (0.2-1.0)
[2017-07-21] MEDS: FUROSEMIDE 40 MG TABLET (FP) PO SCH ×2 (06:20→15:34)
[2017-07-21] MEDS: LEVOTHYROXINE NA 50 MCG TABLET (FP) PO SCH (06:20)
[2017-07-21] MEDS: POTASSIUM CHLORIDE TABS 20 MEQ TABLET.ER (FP) PO SCH ×3 (06:20→21:20)
[2017-07-21] MEDS: INSULIN SLIDING SCALE (NOVOLOG) 1 VIAL SQ SCH ×3 (06:20→17:53)
[2017-07-21 07:54] LABS: EOSINOPHIL 5.3 % (0-4.5); MCH 25.2 pg (25.7-33.7); MCHC 30.8 g/dl (32.0-36.0); MEAN CELL VOLUME 81.6 fl (80-96); MEAN PLT VOLUME 8.1 fl (7.5-11.1); NEUTROPHILS 65.9 % (42.8-82.8); PLATELET COUNT 276 K/MM3 (134-434); RDW 19.6 % (11.6-15.6); WHITE BLOOD COUNT 8.4 K/mm3 (4.0-10.0)
[2017-07-21 08:14] LABS: ALBUMIN 2.9 g/dl (3.4-5.0); ANION GAP 6 (8-16); CALCIUM 8.7 mg/dL (8.5-10.1); CO2 33 mmol/L (21-32); GLUCOSE,RANDOM 134 mg/dL (74-106)
[2017-07-21 08:18] LABS: ALK PHOS 108 U/L (45-117); BILIRUBIN,TOTAL 0.6 mg/dL (0.2-1.0); CREATININE 0.7 mg/dL (0.55-1.02); SGOT/AST 22 U/L (15-37); SGPT/ALT 15 U/L (12-78); TOT PROT 6.6 g/dl (6.4-8.2)
[2017-07-21] MEDS ORDERED: PT OWN MED DRAWER 7, Y5N ONE (11:08)
--- NOTE | 2017-07-21 12:01 | PN ---
Progress Note (short form) - Note Progress Note: ID Linezolid & Zosyn day 1 Afebrile Selected Entries 07/21/17 10:23 Temperature 97.2 F L Pulse Rate 92 H Respiratory 18 Rate Blood Pressure 128/68 Assessment Amputation previously now infected Wound culture pending Previously MRSA VREF Plan Await surgical consult Wound cuture pending Continue antibiotics Jassi CHAUDHARI Problem List - Problems (1) Acute respiratory distress Code(s): J80 - ACUTE RESPIRATORY DISTRESS SYNDROME (2) Amputation stump infection Code(s): T87.40 - INFECTION OF AMPUTATION STUMP, UNSPECIFIED EXTREMITY (3) Infection with multi-drug resistant microorganisms Code(s): Z16.35 - RESISTANCE TO MULTIPLE ANTIMICROBIAL DRUGS
[2017-07-21] MEDS: LOSARTAN POTASSIUM 25 MG TABLET PO SCH (12:02)
[2017-07-21] MEDS: GABAPENTIN 100 MG CAPSULE (FP) PO SCH ×2 (12:03→21:20)
[2017-07-21] MEDS: DIGOXIN 0.125 MG TABLET (FP) PO SCH (12:03)
[2017-07-21] MEDS: ALLOPURINOL 100 MG TABLET (FP) PO SCH (12:03)
[2017-07-21] MEDS: LINEZOLID 600 MG TABLET (RESTRICTED TO ID) PO SCH ×2 (12:04→21:33)
[2017-07-21] MEDS: TIOTROPIUM BROMIDE 18 MCG/INH (DEVICE W/ 5 CAPSULES) IH SCH (12:04)
[2017-07-21 12:40] LABS: URINE LEUK ESTERASE TRACE (NEGATIVE)
[2017-07-21] MEDS: POLYETHYLENE GLYCOL 3350 119 GM BTL PO SCH (12:48)
[2017-07-21] MEDS: ACETAMINOPHEN 325 MG TABLET (FP) PO PRN (13:11)
--- NOTE | 2017-07-21 14:28 | PN ---
Progress Note, Physician Chief Complaint: Patient says she is having pain in her legs. No cp, sob, n/v. - Current Medication List Current Medications: Active Medications Acetaminophen (Tylenol -) 650 mg PO Q6H PRN PRN Reason: PAIN Last Admin: 07/21/17 13:11 Dose: 650 mg Albuterol Sulfate (Ventolin 0.083% Nebulizer Soln -) 1 amp NEB Q4H PRN PRN Reason: SHORT OF BREATH/WHEEZING Last Admin: 07/21/17 10:35 Dose: 1 amp Allopurinol (Zyloprim -) 100 mg PO DAILY [facility] Last Admin: 07/21/17 12:03 Dose: 100 mg Clotrimazole (Lotrimin 1% Cream -) 1 applic TP BID [facility] Last Admin: 07/20/17 22:55 Dose: 1 applic Digoxin (Lanoxin -) 0.125 mg PO DAILY [facility] Last Admin: 07/21/17 12:03 Dose: 0.125 mg Diltiazem HCl (Cardizem Cd -) 180 mg PO DAILY [facility] Last Admin: 07/21/17 12:03 Dose: 180 mg Docusate Sodium (Colace -) 100 mg PO BID [facility] Furosemide (Lasix -) 40 mg PO BIDLASIX [facility] Last Admin: 07/21/17 06:20 Dose: 40 mg Gabapentin (Neurontin -) 100 mg PO BID [facility] Last Admin: 07/21/17 12:03 Dose: 100 mg Piperacillin/Tazobactam/Dextrose (Zosyn 4.5gm Ivpb (Premix)) 100 mls @ 200 mls/ hr IVPB Q8H-IV [facility] PRN Reason: Protocol Last Admin: 07/21/17 12:02 Dose: 200 mls/hr Insulin Aspart (Novolog Vial Sliding Scale -) 1 vial SQ TIDAC [facility] PRN Reason: Protocol Last Admin: 07/21/17 12:58 Dose: Not Given Lactic Acid (Lac-Hydrin 12) 1 applic TP BID [facility] Last Admin: 07/20/17 22:54 Dose: 1 applic Levothyroxine Sodium (Synthroid -) 50 mcg PO AM [facility] Last Admin: 07/21/17 06:20 Dose: 50 mcg Linezolid (Zyvox (Restricted To Id) -) 600 mg PO BID [facility] Last Admin: 11/06/17 12:04 Dose: 600 mg Losartan Potassium (Cozaar -) 25 mg PO DAILY [facility] Last Admin: 07/21/17 12:02 Dose: 25 mg Montelukast Sodium (Singulair -) 10 mg PO HS [facility] Last Admin: 07/20/17 22:27 Dose: 10 mg Ondansetron HCl (Zofran Injection) 8 mg IVPB Q6H PRN PRN Reason: NAUSEA Oxycodone HCl (Roxicodone -) 5 mg PO Q6H PRN PRN Reason: PAIN Polyethylene Glycol (Miralax (For Daily Use) -) 17 gm PO DAILY [facility] Last Admin: 07/21/17 12:48 Dose: Not Given Potassium Chloride (K-Dur -) 20 meq PO TID [facility] Last Admin: 07/21/17 06:20 Dose: 20 meq Tiotropium [place] (Spiriva -) 1 puff IH DAILY [facility] Last Admin: 07/21/17 12:04 Dose: 1 puff Warfarin Sodium (Coumadin -) 4 mg PO DAILY@1800 [facility] - Objective Vital Signs: Vital Signs Temperature 36.4 C 07/21/17 12:49 Pulse Rate 100 H 07/21/17 12:49 Respiratory Rate 18 07/21/17 12:49 Blood Pressure 120/86 07/21/17 12:49 O2 Sat by Pulse Oximetry (%) 98 07/21/17 09:00 Constitutional: Yes: No Distress, Calm, Obese Cardiovascular: Yes: Pulse Irregular. No: Tachycardia, Gallop, Murmur, Rub Respiratory: Yes: Regular, CTA Bilaterally. No: Rales, Rhonchi, Wheezes Gastrointestinal: Yes: Normal Bowel Sounds, Soft. No: Distention, Tenderness Extremities: Yes: Erythema, Other (amputation or toe on R foot with purulence) Edema: Yes Edema: LLE: Trace, RLE: Trace Labs: CBC, BMP 07/21/17 05:45 07/21/17 05:45 INR, PTT INR 2.54 (0.82-1.09) H 07/20/17 06:50 Problem List - Problems (1) Amputation stump infection Assessment/Plan: -R foot appears infected with purulence -appreciate ID assistance -continue linezolid and zosyn -concern for osteomyelitis -podiatry consulted Code(s): T87.40 - INFECTION OF AMPUTATION STUMP, UNSPECIFIED EXTREMITY (2) Morbid obesity Assessment/Plan: -outpatient management Code(s): E66.01 - MORBID (SEVERE) OBESITY DUE TO EXCESS CALORIES (3) Atrial fibrillation Assessment/Plan: -rate controlled -continue coumadin with daily INRs Code(s): I48.91 - UNSPECIFIED ATRIAL FIBRILLATION Qualifiers: Atrial fibrillation type: chronic Qualified Code(s): I48.2 - Chronic atrial fibrillation; I48.2 - Chronic atrial fibrillation; I48.2 - Chronic atrial fibrillation; I48.2 - Chronic atrial fibrillation (4) CHF (congestive heart failure) Assessment/Plan: -continue lasix Code(s): I50.9 - HEART FAILURE, UNSPECIFIED Qualifiers: Congestive heart failure type: diastolic Congestive heart failure chronicity: chronic Qualified Code(s): I50.32 - Chronic diastolic ( congestive) heart failure; I50.32 - Chronic diastolic (congestive) heart failure ; I50.32 - Chronic diastolic (congestive) heart failure; I50.32 - Chronic diastolic (congestive) heart failure (5) COPD (chronic obstructive pulmonary disease) Assessment/Plan: -well controlled -continue current regimen Code(s): J44.9 - CHRONIC OBSTRUCTIVE PULMONARY DISEASE, UNSPECIFIED Qualifiers : COPD type: COPD with acute exacerbation Qualified Code(s): J44.1 - Chronic obstructive pulmonary disease with (acute) exacerbation; J44.1 - Chronic obstructive pulmonary disease with (acute) exacerbation; J44.1 - Chronic obstructive pulmonary disease with (acute) exacerbation; J44.1 - Chronic obstructive pulmonary disease with (acute) exacerbation (6) Diabetes Assessment/Plan: -diabetic diet -SSI Code(s): E11.9 - TYPE 2 DIABETES MELLITUS WITHOUT COMPLICATIONS Qualifiers: Diabetes mellitus type: type 2 Diabetes mellitus complication status: with hyperglycemia Diabetes mellitus termite control servicer insulin use: without long-term use Qualified Code(s): E11.65 - Type 2 diabetes mellitus with hyperglycemia; E11.65 - Type 2 diabetes mellitus with hyperglycemia; E11.65 - Type 2 diabetes mellitus with hyperglycemia; E11.65 - Type 2 diabetes mellitus with hyperglycemia; Z79.4 - shelter (current) use of insulin; Z79.4 - intermediate project manager (current) use of insulin; Z79.4 - intermediate project manager (current) use of insulin; Z79.4 - intermediate project manager (current) use of insulin (7) HTN (hypertension) Assessment/Plan: -well controlled Code(s): I10 - ESSENTIAL (PRIMARY) HYPERTENSION Qualifiers: Hypertension type: essential hypertension Qualified Code(s): I10 - Essential (primary) hypertension; I10 - Essential (primary) hypertension; I10 - Essential (primary) hypertension
[2017-07-21 17:29] LABS: INR 2.25 (0.82-1.09); PROTHROMBIN TIME (PATIENT) 25.4 SEC (9.98-11.88)
[2017-07-21] MEDS: AMMONIUM LACTATE 12% LOTION 225 GM BOTTLE TP SCH ×2 (17:52→21:20)
[2017-07-21] MEDS: CLOTRIMAZOLE 1% CREAM 15 GM TUBE TP SCH ×2 (17:52→21:22)
[2017-07-21] MEDS ORDERED: WARFARIN NA 2 MG TABLET (UD) PO SCH (18:00)
[2017-07-21] MEDS: MONTELUKAST NA 10 MG TABLET PO SCH (21:20)
[2017-07-21] MEDS: DOCUSATE SODIUM 100 MG CAPSULE (FP) PO SCH (21:20)
[2017-07-22] MEDS: PIPERACILLIN/TAZOB 4.5 GM 100 ML IVPB SCH ×3 (02:22→18:13)
[2017-07-22] MEDS: oxyCODONE HCL 5 MG TABLET PO PRN ×3 (05:22→22:44)
[2017-07-22] MEDS: POTASSIUM CHLORIDE TABS 20 MEQ TABLET.ER (FP) PO SCH ×3 (05:23→21:28)
[2017-07-22] MEDS: FUROSEMIDE 40 MG TABLET (FP) PO SCH ×2 (05:23→13:16)
[2017-07-22] MEDS: INSULIN SLIDING SCALE (NOVOLOG) 1 VIAL SQ SCH ×3 (06:05→18:13)
[2017-07-22] MEDS: LEVOTHYROXINE NA 50 MCG TABLET (FP) PO SCH (06:06)
[2017-07-22 07:39] LABS: BASOPHIL 1.2 % (0-2.0); EOSINOPHIL 6.3 % (0-4.5); MCH 25.6 pg (25.7-33.7); MCHC 31.4 g/dl (32.0-36.0); MEAN CELL VOLUME 81.3 fl (80-96); NEUTROPHILS 70.5 % (42.8-82.8); PLATELET COUNT 302 K/MM3 (134-434); RDW 19.5 % (11.6-15.6); WHITE BLOOD COUNT 10.9 K/mm3 (4.0-10.0)
[2017-07-22 07:44] LABS: ANION GAP 9 (8-16); CALCIUM 8.6 mg/dL (8.5-10.1); CO2 31 mmol/L (21-32); CREATININE 0.9 mg/dL (0.55-1.02); GLUCOSE,RANDOM 99 mg/dL (74-106); MAGNESIUM 1.9 mg/dL (1.8-2.4); PHOSPHOROUS 3.3 mg/dL (2.5-4.9)
[2017-07-22 08:10] LABS: INR 2.05 (0.82-1.09); PROTHROMBIN TIME (PATIENT) 23.2 SEC (9.98-11.88)
[2017-07-22] MEDS ORDERED: PT OWN MED DRAWER 7, Y5N ONE (09:09)
[2017-07-22] MEDS: DOCUSATE SODIUM 100 MG CAPSULE (FP) PO SCH ×2 (10:30→21:28)
[2017-07-22] MEDS: DIGOXIN 0.125 MG TABLET (FP) PO SCH (10:30)
[2017-07-22] MEDS: GABAPENTIN 100 MG CAPSULE (FP) PO SCH ×2 (10:31→21:28)
[2017-07-22] MEDS: LINEZOLID 600 MG TABLET (RESTRICTED TO ID) PO SCH ×2 (10:31→21:28)
[2017-07-22] MEDS: ALLOPURINOL 100 MG TABLET (FP) PO SCH (10:31)
[2017-07-22] MEDS: LOSARTAN POTASSIUM 25 MG TABLET PO SCH (10:33)
[2017-07-22] MEDS: AMMONIUM LACTATE 12% LOTION 225 GM BOTTLE TP SCH ×2 (10:34→21:28)
[2017-07-22] MEDS: CLOTRIMAZOLE 1% CREAM 15 GM TUBE TP SCH ×2 (10:35→21:28)
[2017-07-22] MEDS: TIOTROPIUM BROMIDE 18 MCG/INH (DEVICE W/ 5 CAPSULES) IH SCH (10:35)
[2017-07-22] MEDS: POLYETHYLENE GLYCOL 3350 119 GM BTL PO SCH (10:49)
--- NOTE | 2017-07-22 16:08 | PN ---
Progress Note, Physician History of Present Illness: Awake, alert C/O bilateral knee pain No fever/ chills Afebrile BC (-) Wound c/s mixed - Current Medication List Current Medications: Active Medications Acetaminophen (Tylenol -) 650 mg PO Q6H PRN PRN Reason: PAIN Last Admin: 07/21/17 13:11 Dose: 650 mg Albuterol Sulfate (Ventolin 0.083% Nebulizer Soln -) 1 amp NEB Q4H PRN PRN Reason: SHORT OF BREATH/WHEEZING Last Admin: 07/21/17 10:35 Dose: 1 amp Allopurinol (Zyloprim -) 100 mg PO DAILY [facility] Last Admin: 07/22/17 10:31 Dose: 100 mg Clotrimazole (Lotrimin 1% Cream -) 1 applic TP BID [facility] Last Admin: 07/22/17 10:35 Dose: 1 applic Digoxin (Lanoxin -) 0.125 mg PO DAILY [facility] Last Admin: 07/22/17 10:30 Dose: 0.125 mg Diltiazem HCl (Cardizem Cd -) 180 mg PO DAILY [facility] Last Admin: 07/22/17 10:33 Dose: Not Given Docusate Sodium (Colace -) 100 mg PO BID [facility] Last Admin: 07/22/17 10:30 Dose: 100 mg Furosemide (Lasix -) 40 mg PO BIDLASIX [facility] Last Admin: 07/22/17 13:16 Dose: 40 mg Gabapentin (Neurontin -) 100 mg PO BID [facility] Last Admin: 07/22/17 10:31 Dose: 100 mg Piperacillin/Tazobactam/Dextrose (Zosyn 4.5gm Ivpb (Premix)) 100 mls @ 200 mls/ hr IVPB Q8H-IV [facility] PRN Reason: Protocol Last Admin: 07/22/17 10:32 Dose: 200 mls/hr Insulin Aspart (Novolog Vial Sliding Scale -) 1 vial SQ TIDAC [facility] PRN Reason: Protocol Last Admin: 07/22/17 14:01 Dose: Not Given Lactic Acid (Lac-Hydrin 12) 1 applic TP BID [facility] Last Admin: 07/22/17 10:34 Dose: 1 applic Levothyroxine Sodium (Synthroid -) 50 mcg PO AM [facility] Last Admin: 07/22/17 06:06 Dose: 50 mcg Linezolid (Zyvox (Restricted To Id) -) 600 mg PO BID [facility] Last Admin: 07/22/17 10:31 Dose: 600 mg Losartan Potassium (Cozaar -) 25 mg PO DAILY [facility] Last Admin: 07/22/17 10:33 Dose: Not Given Montelukast Sodium (Singulair -) 10 mg PO HS [facility] Last Admin: 07/21/17 21:20 Dose: 10 mg Ondansetron HCl (Zofran Injection) 8 mg IVPB Q6H PRN PRN Reason: NAUSEA Oxycodone HCl (Roxicodone -) 5 mg PO Q6H PRN PRN Reason: PAIN Last Admin: 07/22/17 05:22 Dose: 5 mg Polyethylene Glycol (Miralax (For Daily Use) -) 17 gm PO DAILY [facility] Last Admin: 07/22/17 10:49 Dose: Not Given Potassium Chloride (K-Dur -) 20 meq PO TID [facility] Last Admin: 07/22/17 13:16 Dose: 20 meq Tiotropium [place] (Spiriva -) 1 puff IH DAILY [facility] Last Admin: 07/22/17 10:35 Dose: 1 puff Warfarin Sodium (Coumadin -) 4 mg PO DAILY@1800 [facility] Last Admin: 07/21/17 18:16 Dose: 4 mg - Objective Vital Signs: Vital Signs Temperature 98.6 F 07/22/17 15:12 Pulse Rate 80 07/22/17 15:12 Respiratory Rate 18 07/22/17 15:12 Blood Pressure 143/70 07/22/17 15:12 O2 Sat by Pulse Oximetry (%) 94 L 07/21/17 21:00 Constitutional: Yes: Obese Cardiovascular: Yes: Regular Rate and Rhythm, S1, S2 Respiratory: Yes: Diminished Gastrointestinal: Yes: Normal Bowel Sounds, Soft, Abdomen, Obese. No: Tenderness Extremities: Yes: Other (+ drainage, R 2nd toe amp site) Edema: Yes Edema: LLE: 2+, RLE: 2+ Integumentary: Yes: Venous Stasis Changes Labs: CBC, BMP 07/22/17 06:00 07/22/17 06:00 INR, PTT INR 2.05 (0.82-1.09) H 07/22/17 06:00 Assessment/Plan Infected R 2nd toe amp site + wound c/s polymicrobial Await c/s Continue zosyn/linezolid Contact precautions
--- NOTE | 2017-07-22 16:45 | PN ---
Progress Note, Physician Chief Complaint: Ms Hanley still has pain in her legs. No cp, sob, n/v. - Current Medication List Current Medications: Active Medications Acetaminophen (Tylenol -) 650 mg PO Q6H PRN PRN Reason: PAIN Last Admin: 07/21/17 13:11 Dose: 650 mg Albuterol Sulfate (Ventolin 0.083% Nebulizer Soln -) 1 amp NEB Q4H PRN PRN Reason: SHORT OF BREATH/WHEEZING Last Admin: 07/21/17 10:35 Dose: 1 amp Allopurinol (Zyloprim -) 100 mg PO DAILY [facility] Last Admin: 07/22/17 10:31 Dose: 100 mg Clotrimazole (Lotrimin 1% Cream -) 1 applic TP BID [facility] Last Admin: 07/22/17 10:35 Dose: 1 applic Digoxin (Lanoxin -) 0.125 mg PO DAILY [facility] Last Admin: 07/22/17 10:30 Dose: 0.125 mg Diltiazem HCl (Cardizem Cd -) 180 mg PO DAILY [facility] Last Admin: 07/22/17 10:33 Dose: Not Given Docusate Sodium (Colace -) 100 mg PO BID [facility] Last Admin: 07/22/17 10:30 Dose: 100 mg Furosemide (Lasix -) 40 mg PO BIDLASIX [facility] Last Admin: 07/22/17 13:16 Dose: 40 mg Gabapentin (Neurontin -) 100 mg PO BID [facility] Last Admin: 07/22/17 10:31 Dose: 100 mg Piperacillin/Tazobactam/Dextrose (Zosyn 4.5gm Ivpb (Premix)) 100 mls @ 200 mls/ hr IVPB Q8H-IV [facility] PRN Reason: Protocol Last Admin: 07/22/17 10:32 Dose: 200 mls/hr Insulin Aspart (Novolog Vial Sliding Scale -) 1 vial SQ TIDAC [facility] PRN Reason: Protocol Last Admin: 07/22/17 14:01 Dose: Not Given Lactic Acid (Lac-Hydrin 12) 1 applic TP BID [facility] Last Admin: 07/22/17 10:34 Dose: 1 applic Levothyroxine Sodium (Synthroid -) 50 mcg PO AM [facility] Last Admin: 07/22/17 06:06 Dose: 50 mcg Linezolid (Zyvox (Restricted To Id) -) 600 mg PO BID [facility] Last Admin: 07/22/17 10:31 Dose: 600 mg Losartan Potassium (Cozaar -) 25 mg PO DAILY [facility] Last Admin: 07/22/17 10:33 Dose: Not Given Montelukast Sodium (Singulair -) 10 mg PO HS [facility] Last Admin: 07/21/17 21:20 Dose: 10 mg Ondansetron HCl (Zofran Injection) 8 mg IVPB Q6H PRN PRN Reason: NAUSEA Oxycodone HCl (Roxicodone -) 5 mg PO Q6H PRN PRN Reason: PAIN Last Admin: 07/22/17 16:14 Dose: 5 mg Polyethylene Glycol (Miralax (For Daily Use) -) 17 gm PO DAILY [facility] Last Admin: 07/22/17 10:49 Dose: Not Given Potassium Chloride (K-Dur -) 20 meq PO TID [facility] Last Admin: 07/22/17 13:16 Dose: 20 meq Tiotropium [place] (Spiriva -) 1 puff IH DAILY [facility] Last Admin: 07/22/17 10:35 Dose: 1 puff Warfarin Sodium (Coumadin -) 4 mg PO DAILY@1800 [facility] Last Admin: 07/21/17 18:16 Dose: 4 mg - Objective Vital Signs: Vital Signs Temperature 37.0 C 07/22/17 15:12 Pulse Rate 80 07/22/17 15:12 Respiratory Rate 18 07/22/17 15:12 Blood Pressure 143/70 07/22/17 15:12 O2 Sat by Pulse Oximetry (%) 94 L 07/21/17 21:00 Constitutional: Yes: No Distress, Calm, Obese Cardiovascular: Yes: Regular Rate and Rhythm. No: Gallop, Murmur, Rub Respiratory: Yes: Regular, CTA Bilaterally. No: Rales, Rhonchi, Wheezes Gastrointestinal: Yes: Normal Bowel Sounds, Soft. No: Distention, Tenderness Extremities: Yes: Other (wrapped) Edema: No Labs: CBC, BMP 07/22/17 06:00 07/22/17 06:00 INR, PTT INR 2.05 (0.82-1.09) H 07/22/17 06:00 Problem List - Problems (1) Amputation stump infection Code(s): T87.40 - INFECTION OF AMPUTATION STUMP, UNSPECIFIED EXTREMITY (2) Morbid obesity Code(s): E66.01 - MORBID (SEVERE) OBESITY DUE TO EXCESS CALORIES (3) Atrial fibrillation Code(s): I48.91 - UNSPECIFIED ATRIAL FIBRILLATION Qualifiers: Atrial fibrillation type: chronic Qualified Code(s): I48.2 - Chronic atrial fibrillation; I48.2 - Chronic atrial fibrillation; I48.2 - Chronic atrial fibrillation; I48.2 - Chronic atrial fibrillation (4) CHF (congestive heart failure) Code(s): I50.9 - HEART FAILURE, UNSPECIFIED Qualifiers: Congestive heart failure type: diastolic Congestive heart failure chronicity: chronic Qualified Code(s): I50.32 - Chronic diastolic ( congestive) heart failure; I50.32 - Chronic diastolic (congestive) heart failure ; I50.32 - Chronic diastolic (congestive) heart failure; I50.32 - Chronic diastolic (congestive) heart failure (5) COPD (chronic obstructive pulmonary disease) Code(s): J44.9 - CHRONIC OBSTRUCTIVE PULMONARY DISEASE, UNSPECIFIED Qualifiers : COPD type: COPD with acute exacerbation Qualified Code(s): J44.1 - Chronic obstructive pulmonary disease with (acute) exacerbation; J44.1 - Chronic obstructive pulmonary disease with (acute) exacerbation; J44.1 - Chronic obstructive pulmonary disease with (acute) exacerbation; J44.1 - Chronic obstructive pulmonary disease with (acute) exacerbation (6) Diabetes Code(s): E11.9 - TYPE 2 DIABETES MELLITUS WITHOUT COMPLICATIONS Qualifiers: Diabetes mellitus type: type 2 Diabetes mellitus complication status: with hyperglycemia Diabetes mellitus residential insulin use: without truck terminal manager use Qualified Code(s): E11.65 - Type 2 diabetes mellitus with hyperglycemia; E11.65 - Type 2 diabetes mellitus with hyperglycemia; E11.65 - Type 2 diabetes mellitus with hyperglycemia; E11.65 - Type 2 diabetes mellitus with hyperglycemia; Z79.4 - meterman (current) use of insulin; Z79.4 - prison (current) use of insulin; Z79.4 - [place] (current) use of insulin; Z79.4 - meterman (current) use of insulin (7) HTN (hypertension) Code(s): I10 - ESSENTIAL (PRIMARY) HYPERTENSION Qualifiers: Hypertension type: essential hypertension Qualified Code(s): I10 - Essential (primary) hypertension; I10 - Essential (primary) hypertension; I10 - Essential (primary) hypertension Assessment/Plan (1) Amputation stump infection Assessment/Plan: -R foot appears infected with purulence -appreciate ID assistance -continue linezolid and zosyn -concern for osteomyelitis -podiatry consulted and awaiting response Code(s): T87.40 - INFECTION OF AMPUTATION STUMP, UNSPECIFIED EXTREMITY (2) Morbid obesity Assessment/Plan: -outpatient management Code(s): E66.01 - MORBID (SEVERE) OBESITY DUE TO EXCESS CALORIES (3) Atrial fibrillation Assessment/Plan: -rate controlled -will increase coumadin to 5mg since almost non-therapeutic Code(s): I48.91 - UNSPECIFIED ATRIAL FIBRILLATION Qualifiers: Atrial fibrillation type: chronic Qualified Code(s): I48.2 - Chronic atrial fibrillation; I48.2 - Chronic atrial fibrillation; I48.2 - Chronic atrial fibrillation; I48.2 - Chronic atrial fibrillation (4) CHF (congestive heart failure) Assessment/Plan: -continue lasix Code(s): I50.9 - HEART FAILURE, UNSPECIFIED Qualifiers: Congestive heart failure type: diastolic Congestive heart failure chronicity: chronic Qualified Code(s): I50.32 - Chronic diastolic ( congestive) heart failure; I50.32 - Chronic diastolic (congestive) heart failure ; I50.32 - Chronic diastolic (congestive) heart failure; I50.32 - Chronic diastolic (congestive) heart failure (5) COPD (chronic obstructive pulmonary disease) Assessment/Plan: -well controlled -continue current regimen Code(s): J44.9 - CHRONIC OBSTRUCTIVE PULMONARY DISEASE, UNSPECIFIED Qualifiers : COPD type: COPD with acute exacerbation Qualified Code(s): J44.1 - Chronic obstructive pulmonary disease with (acute) exacerbation; J44.1 - Chronic obstructive pulmonary disease with (acute) exacerbation; J44.1 - Chronic obstructive pulmonary disease with (acute) exacerbation; J44.1 - Chronic obstructive pulmonary disease with (acute) exacerbation (6) Diabetes Assessment/Plan: -diabetic diet -SSI Code(s): E11.9 - TYPE 2 DIABETES MELLITUS WITHOUT COMPLICATIONS Qualifiers: Diabetes mellitus type: type 2 Diabetes mellitus complication status: with hyperglycemia Diabetes mellitus residential insulin use: without residential use Qualified Code(s): E11.65 - Type 2 diabetes mellitus with hyperglycemia; E11.65 - Type 2 diabetes mellitus with hyperglycemia; E11.65 - Type 2 diabetes mellitus with hyperglycemia; E11.65 - Type 2 diabetes mellitus with hyperglycemia; Z79.4 - [place] (current) use of insulin; Z79.4 - prison (current) use of insulin; Z79.4 - [place] (current) use of insulin; Z79.4 - prison (current) use of insulin (7) HTN (hypertension) Assessment/Plan: -well controlled Code(s): I10 - ESSENTIAL (PRIMARY) HYPERTENSION Qualifiers: Hypertension type: essential hypertension Qualified Code(s): I10 - Essential (primary) hypertension; I10 - Essential (primary) hypertension; I10 - Essential (primary) hypertension
[2017-07-22] MEDS: WARFARIN NA 5 MG TABLET (UD) PO SCH (18:13)
[2017-07-22] MEDS: MONTELUKAST NA 10 MG TABLET PO SCH (21:28)
[2017-07-23] MEDS: PIPERACILLIN/TAZOB 4.5 GM 100 ML IVPB SCH ×3 (02:17→17:40)
[2017-07-23] MEDS ORDERED: PT OWN MED DRAWER 7, Y5N ONE ×2 (06:26→10:20)
[2017-07-23 07:56] LABS: INR 2.38 (0.82-1.09); PROTHROMBIN TIME (PATIENT) 26.9 SEC (9.98-11.88)
[2017-07-23 08:11] LABS: BASOPHIL 1.1 % (0-2.0); EOSINOPHIL 5.5 % (0-4.5); MCH 25.9 pg (25.7-33.7); MCHC 31.8 g/dl (32.0-36.0); MEAN CELL VOLUME 81.7 fl (80-96); MEAN PLT VOLUME 8.1 fl (7.5-11.1); PLATELET COUNT 267 K/MM3 (134-434); RDW 19.1 % (11.6-15.6); WHITE BLOOD COUNT 8.1 K/mm3 (4.0-10.0)
[2017-07-23 08:53] LABS: ANION GAP 9 (8-16); CALCIUM 8.1 mg/dL (8.5-10.1); CO2 32 mmol/L (21-32); CREATININE 1.1 mg/dL (0.55-1.02); GLUCOSE,RANDOM 118 mg/dL (74-106); MAGNESIUM 1.8 mg/dL (1.8-2.4); PHOSPHOROUS 3.3 mg/dL (2.5-4.9)
[2017-07-23] MEDS: ALLOPURINOL 100 MG TABLET (FP) PO SCH (10:24)
[2017-07-23] MEDS: GABAPENTIN 100 MG CAPSULE (FP) PO SCH ×2 (10:24→21:51)
[2017-07-23] MEDS: DIGOXIN 0.125 MG TABLET (FP) PO SCH (10:24)
[2017-07-23] MEDS: DOCUSATE SODIUM 100 MG CAPSULE (FP) PO SCH ×2 (10:24→21:51)
[2017-07-23] MEDS: AMMONIUM LACTATE 12% LOTION 225 GM BOTTLE TP SCH ×2 (10:25→21:52)
[2017-07-23] MEDS: CLOTRIMAZOLE 1% CREAM 15 GM TUBE TP SCH ×2 (10:25→21:52)
[2017-07-23] MEDS: LINEZOLID 600 MG TABLET (RESTRICTED TO ID) PO SCH ×2 (10:26→23:20)
[2017-07-23] MEDS: TIOTROPIUM BROMIDE 18 MCG/INH (DEVICE W/ 5 CAPSULES) IH SCH (10:26)
[2017-07-23] MEDS: LOSARTAN POTASSIUM 25 MG TABLET PO SCH (10:35)
[2017-07-23] MEDS: INSULIN SLIDING SCALE (NOVOLOG) 1 VIAL SQ SCH ×2 (12:29→17:40)
[2017-07-23] MEDS: POTASSIUM CHLORIDE TABS 20 MEQ TABLET.ER (FP) PO SCH ×2 (13:32→21:52)
[2017-07-23] MEDS: FUROSEMIDE 40 MG TABLET (FP) PO SCH (13:33)
--- NOTE | 2017-07-23 14:09 | EKG ---
Test Reason : Blood Pressure : / mmHG Vent. Rate : 086 BPM Atrial Rate : 102 BPM P-R Int : 000 ms QRS Dur : 136 ms QT Int : 388 ms P-R-T Axes : 000 103 071 degrees QTc Int : 464 ms ATRIAL FIBRILLATION WITH PREMATURE VENTRICULAR OR ABERRANTLY CONDUCTED COMPLEXES RIGHT BUNDLE BRANCH BLOCK NONSPECIFIC T WAVE ABNORMALITY ABNORMAL ECG WHEN COMPARED WITH ECG OF 15-MAY-2017 00:39, NO SIGNIFICANT CHANGE WAS FOUND Confirmed by NELA CHAUDHARI, SEVERINO ([id number]) on 07/23/2017 2:08:43 PM Referred By: Confirmed By:SEVERINO RONDON MD
--- NOTE | 2017-07-23 16:00 | PN ---
Progress Note, Physician Chief Complaint: Ms Hanley says her pain is controlled. No cp, sob, n/v. - Current Medication List Current Medications: Active Medications Acetaminophen (Tylenol -) 650 mg PO Q6H PRN PRN Reason: PAIN Last Admin: 07/21/17 13:11 Dose: 650 mg Albuterol Sulfate (Ventolin 0.083% Nebulizer Soln -) 1 amp NEB Q4H PRN PRN Reason: SHORT OF BREATH/WHEEZING Last Admin: 07/21/17 10:35 Dose: 1 amp Allopurinol (Zyloprim -) 100 mg PO DAILY [facility] Last Admin: 07/23/17 10:24 Dose: 100 mg Clotrimazole (Lotrimin 1% Cream -) 1 applic TP BID [facility] Last Admin: 07/23/17 10:25 Dose: 1 applic Digoxin (Lanoxin -) 0.125 mg PO DAILY [facility] Last Admin: 07/23/17 10:24 Dose: 0.125 mg Diltiazem HCl (Cardizem Cd -) 180 mg PO DAILY [facility] Last Admin: 07/23/17 10:35 Dose: Not Given Docusate Sodium (Colace -) 100 mg PO BID [facility] Last Admin: 07/23/17 10:24 Dose: 100 mg Furosemide (Lasix -) 40 mg PO BIDLASIX [facility] Last Admin: 07/23/17 13:33 Dose: 40 mg Gabapentin (Neurontin -) 100 mg PO BID [facility] Last Admin: 07/23/17 10:24 Dose: 100 mg Piperacillin/Tazobactam/Dextrose (Zosyn 4.5gm Ivpb (Premix)) 100 mls @ 200 mls/ hr IVPB Q8H-IV LYUDMILA PRN Reason: Protocol Last Admin: 07/23/17 10:24 Dose: 200 mls/hr Insulin Aspart (Novolog Vial Sliding Scale -) 1 vial SQ TIDAC LYUDMILA PRN Reason: Protocol Last Admin: 07/23/17 12:29 Dose: Not Given Lactic Acid (Lac-Hydrin 12) 1 applic TP BID [facility] Last Admin: 07/23/17 10:25 Dose: 1 applic Levothyroxine Sodium (Synthroid -) 50 mcg PO AM [facility] Last Admin: 07/22/17 06:06 Dose: 50 mcg Linezolid (Zyvox (Restricted To Id) -) 600 mg PO BID [facility] Last Admin: 07/23/17 10:26 Dose: 600 mg Losartan Potassium (Cozaar -) 25 mg PO DAILY [facility] Last Admin: 07/23/17 10:35 Dose: Not Given Montelukast Sodium (Singulair -) 10 mg PO HS [facility] Last Admin: 07/22/17 21:28 Dose: 10 mg Ondansetron HCl (Zofran Injection) 8 mg IVPB Q6H PRN PRN Reason: NAUSEA Oxycodone HCl (Roxicodone -) 5 mg PO Q6H PRN PRN Reason: PAIN Last Admin: 07/22/17 22:44 Dose: 5 mg Polyethylene Glycol (Miralax (For Daily Use) -) 17 gm PO DAILY [facility] Last Admin: 07/22/17 10:49 Dose: Not Given Potassium Chloride (K-Dur -) 20 meq PO TID [facility] Last Admin: 07/23/17 13:32 Dose: 20 meq Tiotropium [place] (Spiriva -) 1 puff IH DAILY [facility] Last Admin: 07/23/17 10:26 Dose: 1 puff Warfarin Sodium (Coumadin -) 5 mg PO DAILY@1800 [facility] Last Admin: 07/22/17 18:13 Dose: 5 mg - Objective Vital Signs: Vital Signs Temperature 36.4 C 07/23/17 14:28 Pulse Rate 95 H 07/23/17 14:28 Respiratory Rate 20 07/23/17 14:28 Blood Pressure 128/71 07/23/17 14:28 O2 Sat by Pulse Oximetry (%) 94 L 07/23/17 09:00 Constitutional: Yes: No Distress, Calm, Obese Cardiovascular: Yes: Pulse Irregular. No: Tachycardia, Gallop, Murmur, Rub Respiratory: Yes: Regular, CTA Bilaterally. No: Rales, Rhonchi, Wheezes Gastrointestinal: Yes: Normal Bowel Sounds, Soft. No: Distention, Tenderness Extremities: Yes: Other (RLE wrapped) Edema: No Labs: CBC, BMP 07/23/17 07:00 07/23/17 08:00 INR, PTT INR 2.38 (0.82-1.09) H 07/23/17 06:00 Problem List - Problems (1) Atrial fibrillation Code(s): I48.91 - UNSPECIFIED ATRIAL FIBRILLATION Qualifiers: Atrial fibrillation type: chronic Qualified Code(s): I48.2 - Chronic atrial fibrillation (2) Diabetes Code(s): E11.9 - TYPE 2 DIABETES MELLITUS WITHOUT COMPLICATIONS Qualifiers: Diabetes mellitus type: type 2 Diabetes mellitus complication status: with hyperglycemia Diabetes mellitus correction insulin use: without intermediate frame tender use Qualified Code(s): E11.65 - Type 2 diabetes mellitus with hyperglycemia (3) COPD (chronic obstructive pulmonary disease) Code(s): J44.9 - CHRONIC OBSTRUCTIVE PULMONARY DISEASE, UNSPECIFIED Qualifiers: COPD type: COPD with acute exacerbation Qualified Code(s): J44.1 - Chronic obstructive pulmonary disease with (acute) exacerbation (4) HTN (hypertension) Code(s): I10 - ESSENTIAL (PRIMARY) HYPERTENSION Qualifiers: Hypertension type: essential hypertension Qualified Code(s): I10 - Essential (primary) hypertension (5) CHF (congestive heart failure) Code(s): I50.9 - HEART FAILURE, UNSPECIFIED Qualifiers: Congestive heart failure type: diastolic Congestive heart failure chronicity: chronic Qualified Code(s): I50.32 - Chronic diastolic (congestive ) heart failure (6) Morbid obesity Code(s): E66.01 - MORBID (SEVERE) OBESITY DUE TO EXCESS CALORIES (7) Amputation stump infection Code(s): T87.40 - INFECTION OF AMPUTATION STUMP, UNSPECIFIED EXTREMITY Assessment/Plan (1) Amputation stump infection Assessment/Plan: -R foot appears infected with purulence -appreciate ID assistance -continue linezolid and zosyn -concern for osteomyelitis -patient says podiatry came and saw, awaiting recommendations -ID to decide length of antibiotics Code(s): T87.40 - INFECTION OF AMPUTATION STUMP, UNSPECIFIED EXTREMITY (2) Morbid obesity Assessment/Plan: -outpatient management Code(s): E66.01 - MORBID (SEVERE) OBESITY DUE TO EXCESS CALORIES (3) Atrial fibrillation Assessment/Plan: -rate controlled -will increase coumadin to 5mg since almost non-therapeutic -continue coumadin 5mg currently, may need to decrease back to home dose of 4mg if becomes supratherapeutic Code(s): I48.91 - UNSPECIFIED ATRIAL FIBRILLATION Qualifiers: Atrial fibrillation type: chronic Qualified Code(s): I48.2 - Chronic atrial fibrillation; I48.2 - Chronic atrial fibrillation; I48.2 - Chronic atrial fibrillation; I48.2 - Chronic atrial fibrillation (4) CHF (congestive heart failure) Assessment/Plan: -continue lasix Code(s): I50.9 - HEART FAILURE, UNSPECIFIED Qualifiers: Congestive heart failure type: diastolic Congestive heart failure chronicity: chronic Qualified Code(s): I50.32 - Chronic diastolic ( congestive) heart failure; I50.32 - Chronic diastolic (congestive) heart failure ; I50.32 - Chronic diastolic (congestive) heart failure; I50.32 - Chronic diastolic (congestive) heart failure (5) COPD (chronic obstructive pulmonary disease) Assessment/Plan: -well controlled -continue current regimen Code(s): J44.9 - CHRONIC OBSTRUCTIVE PULMONARY DISEASE, UNSPECIFIED Qualifiers : COPD type: COPD with acute exacerbation Qualified Code(s): J44.1 - Chronic obstructive pulmonary disease with (acute) exacerbation; J44.1 - Chronic obstructive pulmonary disease with (acute) exacerbation; J44.1 - Chronic obstructive pulmonary disease with (acute) exacerbation; J44.1 - Chronic obstructive pulmonary disease with (acute) exacerbation (6) Diabetes Assessment/Plan: -diabetic diet -SSI Code(s): E11.9 - TYPE 2 DIABETES MELLITUS WITHOUT COMPLICATIONS Qualifiers: Diabetes mellitus type: type 2 Diabetes mellitus complication status: with hyperglycemia Diabetes mellitus correction insulin use: without correction use Qualified Code(s): E11.65 - Type 2 diabetes mellitus with hyperglycemia; E11.65 - Type 2 diabetes mellitus with hyperglycemia; E11.65 - Type 2 diabetes mellitus with hyperglycemia; E11.65 - Type 2 diabetes mellitus with hyperglycemia; Z79.4 - care home (current) use of insulin; Z79.4 - care home (current) use of insulin; Z79.4 - continuous churn buttermaker (current) use of insulin; Z79.4 - continuous churn buttermaker (current) use of insulin (7) HTN (hypertension) Assessment/Plan: -well controlled Code(s): I10 - ESSENTIAL (PRIMARY) HYPERTENSION Qualifiers: Hypertension type: essential hypertension Qualified Code(s): I10 - Essential (primary) hypertension; I10 - Essential (primary) hypertension; I10 - Essential (primary) hypertension
[2017-07-23] MEDS: WARFARIN NA 5 MG TABLET (UD) PO SCH (17:40)
[2017-07-23] MEDS: MONTELUKAST NA 10 MG TABLET PO SCH (21:52)
[2017-07-23] MEDS: oxyCODONE HCL 5 MG TABLET PO PRN (23:46)
[2017-07-24] MEDS: PIPERACILLIN/TAZOB 4.5 GM 100 ML IVPB SCH ×3 (03:00→17:30)
[2017-07-24] MEDS: FUROSEMIDE 40 MG TABLET (FP) PO SCH ×3 (03:00→14:36)
[2017-07-24] MEDS: POTASSIUM CHLORIDE TABS 20 MEQ TABLET.ER (FP) PO SCH ×4 (03:00→21:50)
[2017-07-24] MEDS: LEVOTHYROXINE NA 50 MCG TABLET (FP) PO SCH ×2 (03:01→06:41)
[2017-07-24] MEDS: INSULIN SLIDING SCALE (NOVOLOG) 1 VIAL SQ SCH ×4 (03:01→17:04)
[2017-07-24 07:12] LABS: EOSINOPHIL 5.4 % (0-4.5); MCH 25.7 pg (25.7-33.7); MCHC 31.5 g/dl (32.0-36.0); MEAN CELL VOLUME 81.7 fl (80-96); MEAN PLT VOLUME 7.9 fl (7.5-11.1); NEUTROPHILS 69.5 % (42.8-82.8); PLATELET COUNT 251 K/MM3 (134-434); RDW 19.3 % (11.6-15.6); WHITE BLOOD COUNT 8.8 K/mm3 (4.0-10.0)
[2017-07-24 07:40] LABS: ANION GAP 9 (8-16); CO2 31 mmol/L (21-32); GLUCOSE,RANDOM 118 mg/dL (74-106); MAGNESIUM 1.7 mg/dL (1.8-2.4)
[2017-07-24 07:51] LABS: INR 2.72 (0.82-1.09); PROTHROMBIN TIME (PATIENT) 30.7 SEC (9.98-11.88)
[2017-07-24] MEDS ORDERED: PT OWN MED DRAWER 7, Y5N ONE (09:20)
[2017-07-24] MEDS: ALLOPURINOL 100 MG TABLET (FP) PO SCH (10:09)
[2017-07-24] MEDS: AMMONIUM LACTATE 12% LOTION 225 GM BOTTLE TP SCH ×2 (10:09→21:51)
[2017-07-24] MEDS: GABAPENTIN 100 MG CAPSULE (FP) PO SCH ×2 (10:09→21:50)
[2017-07-24] MEDS: LINEZOLID 600 MG TABLET (RESTRICTED TO ID) PO SCH ×2 (10:09→21:52)
[2017-07-24] MEDS: TIOTROPIUM BROMIDE 18 MCG/INH (DEVICE W/ 5 CAPSULES) IH SCH (10:09)
[2017-07-24] MEDS: LOSARTAN POTASSIUM 25 MG TABLET PO SCH (10:09)
[2017-07-24] MEDS: DOCUSATE SODIUM 100 MG CAPSULE (FP) PO SCH ×2 (10:09→21:50)
[2017-07-24] MEDS: CLOTRIMAZOLE 1% CREAM 15 GM TUBE TP SCH ×2 (10:09→21:51)
[2017-07-24] MEDS ORDERED: MAGNESIUM OXIDE 400 MG TABLET (FP) PO ONE (10:11)
--- NOTE | 2017-07-24 10:13 | PN ---
Progress Note (short form) - Note Progress Note: asymptomatic. states her pain is controlled. denies Cp, SOB, fever, chills, N/V/ C/D Current Medications Generic Name Dose Route Start Last Admin Trade Name Freq PRN Reason Stop Dose Admin Acetaminophen 650 mg 07/20/17 18:42 07/21/17 13:11 Tylenol - PO 650 mg Q6H PRN Administration PAIN Albuterol Sulfate 1 amp 07/20/17 18:47 07/21/17 10:35 Ventolin 0.083% Nebulizer Soln - NEB 1 amp Q4H PRN Administration SHORT OF BREATH/WHEEZING Allopurinol 100 mg 07/21/17 10:00 07/23/17 10:24 Zyloprim - PO 100 mg DAILY LYUDMILA Administration Clotrimazole 1 applic 07/20/17 10:00 07/23/17 21:52 Lotrimin 1% Cream - TP 1 applic BID LYUDMILA Administration Digoxin 0.125 mg 07/21/17 10:00 07/23/17 10:24 Lanoxin - PO 0.125 mg DAILY LYUDMILA Administration Diltiazem HCl 180 mg 07/21/17 10:00 07/23/17 10:35 Cardizem Cd - PO Not Given DAILY LYUDMILA Docusate Sodium 100 mg 07/21/17 22:00 07/23/17 21:51 Colace - PO 100 mg BID LYUDMILA Administration Furosemide 40 mg 07/21/17 06:00 07/24/17 06:41 Lasix - PO 40 mg BIDLASIX LYUDMILA Administration Gabapentin 100 mg 07/20/17 22:00 07/23/17 21:51 Neurontin - PO 100 mg BID LYUDMILA Administration Piperacillin/Tazobactam/Dextrose 100 mls @ 200 mls/hr 07/20/17 10:00 03:00 Zosyn 4.5gm Ivpb (Premix) IVPB 200 mls/hr Q8H-IV LYUDMILA Administration Protocol Insulin Aspart 1 vial 07/20/17 07:00 07/24/17 06:41 Novolog Vial Sliding Scale - SQ Not Given TIDAC LYUDMILA Protocol Lactic Acid 1 applic 07/20/17 10:00 07/23/17 21:52 Lac-Hydrin 12 TP 1 applic BID LYUDMILA Administration Levothyroxine Sodium 50 mcg 07/21/17 07:00 07/24/17 06:41 Synthroid - PO 50 mcg AM LYUDMILA Administration Linezolid 600 mg 07/20/17 10:00 07/23/17 23:20 Zyvox (Restricted To Id) - PO 600 mg BID LYUDMILA Administration Losartan Potassium 25 mg 07/21/17 10:00 07/23/17 10:35 Cozaar - PO Not Given DAILY LYUDMILA Montelukast Sodium 10 mg 07/20/17 22:00 07/23/17 21:52 Singulair - PO 10 mg HS LYUDMILA Administration Nystatin 1 applic 07/24/17 10:15 Mycostatin Cream - TP BID LYUDMILA Nystatin 1 applic 07/24/17 10:15 Nystop Powder - TP DAILY LYUDMILA Ondansetron HCl 8 mg 07/20/17 01:38 EST Zofran Injection IVPB Q6H PRN NAUSEA Oxycodone HCl 5 mg 07/21/17 14:23 07/23/17 23:46 Roxicodone - PO 5 mg Q6H PRN Administration PAIN Polyethylene Glycol 17 gm 07/21/17 10:00 07/22/17 10:49 Miralax (For Daily Use) - PO Not Given DAILY [facility] Potassium Chloride 20 meq 07/20/17 22:00 07/24/17 06:41 K-Dur - PO 20 meq TID LYUDMILA Administration Tiotropium [place] 1 puff 07/21/17 10:00 07/23/17 10:26 Spiriva - IH 1 puff DAILY LYUDMILA Administration Warfarin Sodium 5 mg 07/22/17 16:47 07/23/17 17:40 Coumadin - PO 5 mg DAILY@1800 LYUDMILA Administration Last Vital Signs Temp Pulse Resp BP Pulse Ox 98.6 F 92 H 20 156/80 93 L 07/24/17 05:56 07/24/17 05:56 07/24/17 05:56 07/24/17 05:56 07/23/17 21:00 General NAD CV S1 S2 RRR no murmur/rub/gallop Lungs CTA B/L no wheezing/rales/rhonchi anteriorly Abdomen soft NT/ND obese Extremities chronic changes B/L LE. R foot with 2nd metatarsal amputation. purulent discharge noted. +granulation tissue. area is not tender or warm no foul odor CBCD WBC 8.8 K/mm3 (4.0-10.0) 07/24/17 06:00 RBC 4.20 M/mm3 (3.60-5.2) 07/24/17 06:00 Hgb 10.8 GM/dL (10.7-15.3) 07/24/17 06:00 Hct 34.3 % (32.4-45.2) 07/24/17 06:00 MCV 81.7 fl (80-96) 07/24/17 06:00 MCHC 31.5 g/dl (32.0-36.0) L 07/24/17 06:00 RDW 19.3 % (11.6-15.6) H 07/24/17 06:00 Plt Count 251 K/MM3 (134-434) 07/24/17 06:00 MPV 7.9 fl (7.5-11.1) 07/24/17 06:00 CMP Sodium 137 mmol/L (136-145) 07/24/17 06:00 Potassium 3.6 mmol/L (3.5-5.1) 07/24/17 06:00 Chloride 97 mmol/L (98-107) L 07/24/17 06:00 Carbon Dioxide 31 mmol/L (21-32) 07/24/17 06:00 Anion Gap 9 (8-16) 07/24/17 06:00 BUN 20 mg/dL (7-18) H 07/24/17 06:00 Creatinine 1.0 mg/dL (0.55-1.02) 07/24/17 06:00 Creat Clearance w eGFR > 60 (>60) 07/21/17 05:45 Calcium 8.0 mg/dL (8.5-10.1) L 07/24/17 06:00 Total Bilirubin 0.6 mg/dL (0.2-1.0) D 07/21/17 05:45 AST 22 U/L (15-37) 07/21/17 05:45 ALT 15 U/L (12-78) 07/21/17 05:45 Alkaline Phosphatase 108 U/L (45-117) 07/21/17 05:45 Total Protein 6.6 g/dl (6.4-8.2) 07/21/17 05:45 Albumin 2.9 g/dl (3.4-5.0) L 07/21/17 05:45 A?P 82yo F with PMH afib on coumadin, DM, COPD on home O2 (2-3L NC), morbid obesity, peripheral neuropathy presented to the hospital after mechanical fall and was concern for diabetic foot ulcer 1. 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 wound has purulent drainage. elevated ESR. on Linezolid/ Zosyn day 5. Awaiting podiatry to come and re-assess. will need to d/w ID about abx duration. may require ehs engineer. cont local wound care. PWB as tolerated. 2. Hypomagnesemia- Mg 800mg 3. TRAN- now resolved. avoid nephrotoxic agents 4. Afib on coumadin- INR therapeutic. cont rate control and coumadin 5. COPD on home O2- currently on 3L NC and saturating well. cont nebs prn, inhalers, singulair 6. DVT ppx- on coumadin 7. Will likely require EDSON placement when medically optimized. only able to walk 40feet. Visit type - Emergency Visit Emergency Visit: Yes ED Registration Date: 07/20/17 Care time: The patient presented to the Emergency Department on the above date and was hospitalized for further evaluation of their emergent condition. - New Patient This patient is new to me today: Yes Date on this admission: 07/24/17 - Critical Care Critical Care patient: No - Discharge Referral Referred to [facility] No
[2017-07-24] MEDS: DIGOXIN 0.125 MG TABLET (FP) PO SCH (11:21)
[2017-07-24] MEDS: NYSTATIN 100,000 UNIT/GM TOPICAL CREAM 15 GM TUBE TP SCH ×2 (14:36→21:51)
[2017-07-24] MEDS: NYSTATIN POWDER 100,000 UNITS/GM - 15 GM TOPICAL POWDER TP SCH (14:36)
[2017-07-24] MEDS: POLYETHYLENE GLYCOL 3350 119 GM BTL PO SCH (14:38)
[2017-07-24] MEDS: WARFARIN NA 5 MG TABLET (UD) PO SCH (17:38)
[2017-07-24] MEDS: MONTELUKAST NA 10 MG TABLET PO SCH (21:50)
[2017-07-24] MEDS ORDERED: oxyCODONE HCL 5 MG TABLET PO ONE (23:21)
[2017-07-25] MEDS: PIPERACILLIN/TAZOB 4.5 GM 100 ML IVPB SCH ×2 (01:54→11:07)
[2017-07-25] MEDS: LEVOTHYROXINE NA 50 MCG TABLET (FP) PO SCH (06:18)
[2017-07-25] MEDS: FUROSEMIDE 40 MG TABLET (FP) PO SCH ×2 (06:18→13:56)
[2017-07-25] MEDS: POTASSIUM CHLORIDE TABS 20 MEQ TABLET.ER (FP) PO SCH ×3 (06:18→21:08)
[2017-07-25] MEDS: INSULIN SLIDING SCALE (NOVOLOG) 1 VIAL SQ SCH ×3 (06:19→17:25)
[2017-07-25] MEDS ORDERED: INSULIN (NOVOLOG) ASPART 100 UNITS/ML 10ML VIAL ONE ×2 (06:37→17:19)
[2017-07-25 07:19] LABS: INR 2.98 (0.82-1.09); PROTHROMBIN TIME (PATIENT) 33.7 SEC (9.98-11.88)
[2017-07-25 07:45] LABS: ANION GAP 11 (8-16); CALCIUM 8.3 mg/dL (8.5-10.1); CO2 31 mmol/L (21-32); CREATININE 1.1 mg/dL (0.55-1.02); GLUCOSE,RANDOM 113 mg/dL (74-106); MAGNESIUM 1.9 mg/dL (1.8-2.4)
[2017-07-25] MEDS: POLYETHYLENE GLYCOL 3350 119 GM BTL PO SCH ×2 (08:42→11:11)
[2017-07-25] MEDS ORDERED: PT OWN MED DRAWER 7, Y5N ONE (10:51)
[2017-07-25] MEDS: ALLOPURINOL 100 MG TABLET (FP) PO SCH (11:08)
[2017-07-25] MEDS: GABAPENTIN 100 MG CAPSULE (FP) PO SCH ×2 (11:08→21:08)
[2017-07-25] MEDS: LOSARTAN POTASSIUM 25 MG TABLET PO SCH (11:08)
[2017-07-25] MEDS: DIGOXIN 0.125 MG TABLET (FP) PO SCH (11:08)
[2017-07-25] MEDS: DOCUSATE SODIUM 100 MG CAPSULE (FP) PO SCH ×2 (11:09→21:08)
[2017-07-25] MEDS: NYSTATIN POWDER 100,000 UNITS/GM - 15 GM TOPICAL POWDER TP SCH (11:09)
[2017-07-25] MEDS: NYSTATIN 100,000 UNIT/GM TOPICAL CREAM 15 GM TUBE TP SCH ×2 (11:10→21:09)
[2017-07-25] MEDS: AMMONIUM LACTATE 12% LOTION 225 GM BOTTLE TP SCH ×2 (11:11→21:09)
[2017-07-25] MEDS: TIOTROPIUM BROMIDE 18 MCG/INH (DEVICE W/ 5 CAPSULES) IH SCH (11:12)
[2017-07-25] MEDS: LINEZOLID 600 MG TABLET (RESTRICTED TO ID) PO SCH (11:13)
--- NOTE | 2017-07-25 12:06 | PN ---
Progress Note, Physician History of Present Illness: awake, alert no complaints of foot pain no fever/ chills wound c/s mixed organisms blood c/s no growth WBC WNL - Current Medication List Current Medications: Active Medications Acetaminophen (Tylenol -) 650 mg PO Q6H PRN PRN Reason: PAIN Last Admin: 07/21/17 13:11 Dose: 650 mg Albuterol Sulfate (Ventolin 0.083% Nebulizer Soln -) 1 amp NEB Q4H PRN PRN Reason: SHORT OF BREATH/WHEEZING Last Admin: 07/21/17 10:35 Dose: 1 amp Allopurinol (Zyloprim -) 100 mg PO DAILY [facility] Last Admin: 07/25/17 11:08 Dose: 100 mg Clotrimazole (Lotrimin 1% Cream -) 1 applic TP BID [facility] Last Admin: 07/24/17 21:51 Dose: 1 applic Digoxin (Lanoxin -) 0.125 mg PO DAILY [facility] Last Admin: 07/25/17 11:08 Dose: 0.125 mg Diltiazem HCl (Cardizem Cd -) 180 mg PO DAILY [facility] Last Admin: 07/25/17 11:08 Dose: 180 mg Docusate Sodium (Colace -) 100 mg PO BID [facility] Last Admin: 07/25/17 11:09 Dose: 100 mg Furosemide (Lasix -) 40 mg PO BIDLASIX [facility] Last Admin: 07/25/17 06:18 Dose: 40 mg Gabapentin (Neurontin -) 100 mg PO BID [facility] Last Admin: 07/25/17 11:08 Dose: 100 mg Piperacillin/Tazobactam/Dextrose (Zosyn 4.5gm Ivpb (Premix)) 100 mls @ 200 mls/ hr IVPB Q8H-IV LYUDMILA PRN Reason: Protocol Last Admin: 07/25/17 11:07 Dose: 200 mls/hr Insulin Aspart (Novolog Vial Sliding Scale -) 1 vial SQ TIDAC LYUDMILA PRN Reason: Protocol Last Admin: 07/25/17 11:49 Dose: Not Given Lactic Acid (Lac-Hydrin 12) 1 applic TP BID [facility] Last Admin: 07/25/17 11:11 Dose: 1 applic Levothyroxine Sodium (Synthroid -) 50 mcg PO AM [facility] Last Admin: 07/25/17 06:18 Dose: 50 mcg Linezolid (Zyvox (Restricted To Id) -) 600 mg PO BID [facility] Last Admin: 07/25/17 11:13 Dose: 600 mg Losartan Potassium (Cozaar -) 25 mg PO DAILY [facility] Last Admin: 07/25/17 11:08 Dose: 25 mg Montelukast Sodium (Singulair -) 10 mg PO HS [facility] Last Admin: 07/24/17 21:50 Dose: 10 mg Nystatin (Mycostatin Cream -) 1 applic TP BID [facility] Last Admin: 07/25/17 11:10 Dose: 1 applic Nystatin (Nystop Powder -) 1 applic TP DAILY [facility] Last Admin: 07/25/17 11:09 Dose: 1 applic Ondansetron HCl (Zofran Injection) 8 mg IVPB Q6H PRN PRN Reason: NAUSEA Polyethylene Glycol (Miralax (For Daily Use) -) 17 gm PO DAILY [facility] Last Admin: 07/25/17 11:11 Dose: Not Given Potassium Chloride (K-Dur -) 20 meq PO TID [facility] Last Admin: 07/25/17 06:18 Dose: 20 meq Tiotropium [place] (Spiriva -) 1 puff IH DAILY [facility] Last Admin: 07/25/17 11:12 Dose: 1 puff Warfarin Sodium (Coumadin -) 5 mg PO DAILY@1800 [facility] Last Admin: 07/24/17 17:38 Dose: 5 mg - Objective Vital Signs: Vital Signs Temperature 98.2 F 07/25/17 08:31 Pulse Rate 74 07/25/17 11:08 Respiratory Rate 18 07/25/17 08:31 Blood Pressure 124/74 07/25/17 08:31 O2 Sat by Pulse Oximetry (%) 98 07/25/17 09:00 Constitutional: Yes: No Distress, Obese Eyes: Yes: Conjunctiva Clear Cardiovascular: Yes: Regular Rate and Rhythm, S1, S2 Respiratory: Yes: CTA Bilaterally Gastrointestinal: Yes: Normal Bowel Sounds, Soft, Abdomen, Obese, Tenderness Extremities: Yes: Other (R 2nd toe amp site healed no drainage) Labs: CBC, BMP 07/24/17 06:00 07/25/17 06:00 INR, PTT INR 2.98 (0.82-1.09) H 07/25/17 06:00 Assessment/Plan Infected R 2nd toe amp site + wound c/s polymicrobial Substitute po antibiotic therapy
--- NOTE | 2017-07-25 12:07 | PN ---
Progress Note, Physician - Current Medication List Current Medications: Active Medications Acetaminophen (Tylenol -) 650 mg PO Q6H PRN PRN Reason: PAIN Last Admin: 07/21/17 13:11 Dose: 650 mg Albuterol Sulfate (Ventolin 0.083% Nebulizer Soln -) 1 amp NEB Q4H PRN PRN Reason: SHORT OF BREATH/WHEEZING Last Admin: 07/21/17 10:35 Dose: 1 amp Allopurinol (Zyloprim -) 100 mg PO DAILY [facility] Last Admin: 07/25/17 11:08 Dose: 100 mg Clotrimazole (Lotrimin 1% Cream -) 1 applic TP BID [facility] Last Admin: 07/24/17 21:51 Dose: 1 applic Digoxin (Lanoxin -) 0.125 mg PO DAILY [facility] Last Admin: 07/25/17 11:08 Dose: 0.125 mg Diltiazem HCl (Cardizem Cd -) 180 mg PO DAILY [facility] Last Admin: 07/25/17 11:08 Dose: 180 mg Docusate Sodium (Colace -) 100 mg PO BID [facility] Last Admin: 07/25/17 11:09 Dose: 100 mg Furosemide (Lasix -) 40 mg PO BIDLASIX [facility] Last Admin: 07/25/17 06:18 Dose: 40 mg Gabapentin (Neurontin -) 100 mg PO BID [facility] Last Admin: 07/25/17 11:08 Dose: 100 mg Piperacillin/Tazobactam/Dextrose (Zosyn 4.5gm Ivpb (Premix)) 100 mls @ 200 mls/ hr IVPB Q8H-IV LYUDMILA PRN Reason: Protocol Last Admin: 07/25/17 11:07 Dose: 200 mls/hr Insulin Aspart (Novolog Vial Sliding Scale -) 1 vial SQ TIDAC LYUDMILA PRN Reason: Protocol Last Admin: 07/25/17 11:49 Dose: Not Given Lactic Acid (Lac-Hydrin 12) 1 applic TP BID [facility] Last Admin: 07/25/17 11:11 Dose: 1 applic Levothyroxine Sodium (Synthroid -) 50 mcg PO AM [facility] Last Admin: 07/25/17 06:18 Dose: 50 mcg Linezolid (Zyvox (Restricted To Id) -) 600 mg PO BID [facility] Last Admin: 07/25/17 11:13 Dose: 600 mg Losartan Potassium (Cozaar -) 25 mg PO DAILY [facility] Last Admin: 07/25/17 11:08 Dose: 25 mg Montelukast Sodium (Singulair -) 10 mg PO HS [facility] Last Admin: 07/24/17 21:50 Dose: 10 mg Nystatin (Mycostatin Cream -) 1 applic TP BID [facility] Last Admin: 07/25/17 11:10 Dose: 1 applic Nystatin (Nystop Powder -) 1 applic TP DAILY [facility] Last Admin: 07/25/17 11:09 Dose: 1 applic Ondansetron HCl (Zofran Injection) 8 mg IVPB Q6H PRN PRN Reason: NAUSEA Polyethylene Glycol (Miralax (For Daily Use) -) 17 gm PO DAILY [facility] Last Admin: 07/25/17 11:11 Dose: Not Given Potassium Chloride (K-Dur -) 20 meq PO TID [facility] Last Admin: 07/25/17 06:18 Dose: 20 meq Tiotropium [place] (Spiriva -) 1 puff IH DAILY [facility] Last Admin: 07/25/17 11:12 Dose: 1 puff Warfarin Sodium (Coumadin -) 5 mg PO DAILY@1800 [facility] Last Admin: 07/24/17 17:38 Dose: 5 mg - Objective Vital Signs: Vital Signs Temperature 98.2 F 07/25/17 08:31 Pulse Rate 74 07/25/17 11:08 Respiratory Rate 18 07/25/17 08:31 Blood Pressure 124/74 07/25/17 08:31 O2 Sat by Pulse Oximetry (%) 98 07/25/17 09:00 Labs: CBC, BMP 07/24/17 06:00 07/25/17 06:00 INR, PTT INR 2.98 (0.82-1.09) H 07/25/17 06:00 Assessment/Plan Infected R 2nd toe amp site + wound c/s polymicrobial Substitute po antibiotic therapy Augmentin 875mg po bid + levaquin 500mg po qd x7d Follow up wound care center
[2017-07-25] MEDS: ACETAMINOPHEN 325 MG TABLET (FP) PO PRN (12:19)
[2017-07-25] MEDS: LEVOFLOXACIN 500 MG TABLET (FP) PO SCH (12:20)
[2017-07-25] MEDS: AMOX TR/POT CLAV 875MG/125MG TABLETS (FP) PO SCH ×2 (12:20→17:25)
[2017-07-25] MEDS: CLOTRIMAZOLE 1% CREAM 15 GM TUBE TP SCH ×2 (13:09→21:09)
--- NOTE | 2017-07-25 15:28 | DS ---
Physical Exam: SUBJECTIVE: Patient seen and examined. No acute complaints, denies fever, chills , sob. OBJECTIVE: Vital Signs Period Temp Pulse Resp BP Sys/Luke Pulse Ox Last 24 Hr 97.5 F-98.8 F 74-95 18-20 98-124/43-74 88-98 PE Neuro: alert, awake, cn 2-12intact Pulm: CTAB CV: s1 s2 rrr nomrg Abd: obese abd, s nt nd + bs Ext: b/l lower ext venous dermitis, R foot dressing CDI, edema- non pitting LABS Laboratory Results - last 24 hr 07/25/17 07/25/17 07/25/17 06:00 06:17 11:47 PT with INR INR Sodium 137 Potassium 4.2 Chloride 95 L Carbon Dioxide 31 Anion Gap 11 BUN 23 H Creatinine 1.1 H POC Glucometer 121 159 Random Glucose 113 H Calcium 8.3 L Magnesium 1.9 HOSPITAL COURSE: Date of Admission:07/20/17 Date of Discharge: 07/25/17 Minutes to complete discharge: 37 Discharge Summary Reason For Visit: CHRONIC WOUND OF EXTREMITY HIP PAIN Current Active Problems Amputation stump infection (Acute) Chronic wound of extremity (Acute) Hip pain, bilateral (Acute) Inability to ambulate due to right knee (Acute) Infection with multi-drug resistant microorganisms (Acute) Morbid obesity (Acute) Hospital Course: Initial Hospital Course: Briefly, this 82 year old female with PMHx of multiple abdominal sx (appy, dominique , hysterectomy), asthma, atrial fibrillation on warfarin, COPD, CHF, CAD, dementia, HTN, hypercholesterolemia, hypothyroidism, and diabetes w/ neuropathy , MRSA, presented after mechanical fall at home. Reported recent right foot 2nd toe amputation by dr cross (podiatry) with increased wound drainage coming from right foot. She goes to hyperbaric O2 for wound healing. Subsequent Hospital Course/Progress Note/DC summary: A: 82yo F with PMH afib on coumadin, DM, COPD on home O2 (2-3L NC), morbid obesity, peripheral neuropathy presented to the hospital after mechanical fall and infected diabetic foot ulcer Plan: 1. 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 TRAN - Resolved 3. Afib on coumadin - Rate controlled - Cont coumadin per INR goal 2-3 - Caution as placed on levaquin for next 7 days 4. COPD on home O2 - On 3L NC, no issues - Singulair 5. Hypomagnesemia - Resolved Dispo: - For SNF, pt aware and agrees to above plan Condition: Stable - Instructions Diet, Activity, Other Instructions: Please return to the ED for any new, persistent, or worsening symptoms. Follow up with your PCP in 1 week Follow up with [facility] next week for further wound care Take antibiotics as directed and until completion, augmentin 875mg BID x7 days, levaquin 500mg daily x 7 day Resume home meds as directed Daily local wound care to Right foot daily Referrals: Pastor Cross MD [Staff Physician] - Xavi Storey MD [Primary Care Provider] - Disposition: [facility] - Home Medications Comprehensive Discharge Medication List: Ambulatory Orders Albuterol Sulfate Inhaler - [Ventolin HFA Inhaler -] 2 inh IH Q6H PRN #0 inh 04/27 Allopurinol [Zyloprim -] 100 mg PO DAILY #0 tablet 06/22/13 Diltiazem Cd [Cardizem Cd -] 180 mg PO DAILY #0 cap.cd.24h 06/22/13 Montelukast Na [Singulair -] 10 mg PO HS #0 tablet 06/22/13 Acetaminophen [Tylenol .Regular Strength -] 650 mg PO Q6H PRN #240 tablet Tiotropium [place] [Spiriva] 1 inh PO DAILY #1 inhaler 06/23/13 Furosemide [Lasix -] 40 mg PO BID 03/02/14 Levothyroxine [Synthroid -] 50 mcg PO DAILY 03/02/14 Glimepiride [Amaryl] 2 mg PO BID 08/07/14 Digoxin [Lanoxin -] 1 tab PO DAILY #90 tablet 09/08/15 Oxycodone HCl [Roxicodone -] 5 mg PO Q12H PRN #0 tablet 09/08/15 Docusate Sodium [Colace -] 100 mg PO BID PRN #0 cap 04/29/17 Polyethylene Glycol 3350 [Miralax 119 gm Btl -] 17 gm PO DAILY #1 bottle Potassium Chloride [K-Dur -] 20 meq PO TID tab 04/29/17 Gabapentin [Neurontin -] 100 mg PO BID #60 cap 05/28/17 Losartan Potassium [Cozaar -] 25 mg PO DAILY #30 tablet 05/28/17 Warfarin Na [Coumadin -] 4 mg PO DAILY@1800 tablet 05/28/17 Amoxicillin/Potassium Clav [Augmentin 875-125 Tablet] 1 each PO BID #14 tablet 07/25/17 Levofloxacin [Levaquin -] 500 mg PO DAILY #7 tablet 07/25/17 This patient is new to me today: Yes Date on this admission: 07/26/17 Emergency Visit: Yes ED Registration Date: 07/20/17 Care time: The patient presented to the Emergency Department on the above date and was hospitalized for further evaluation of their emergent condition. Critical Care patient: No - Discharge Referral Referred to [facility] Med [facility].C.: No
[2017-07-25] MEDS: WARFARIN NA 5 MG TABLET (UD) PO SCH (17:25)
[2017-07-25] MEDS: MONTELUKAST NA 10 MG TABLET PO SCH (21:08)
[2017-07-26] MEDS: oxyCODONE HCL 5 MG TABLET PO PRN ×2 (00:38→23:41)
[2017-07-26] MEDS: LEVOFLOXACIN 500 MG TABLET (FP) PO SCH (06:28)
[2017-07-26] MEDS: LEVOTHYROXINE NA 50 MCG TABLET (FP) PO SCH (06:28)
[2017-07-26] MEDS: FUROSEMIDE 40 MG TABLET (FP) PO SCH ×2 (06:28→14:15)
[2017-07-26] MEDS: POTASSIUM CHLORIDE TABS 20 MEQ TABLET.ER (FP) PO SCH ×3 (06:28→22:26)
[2017-07-26] MEDS: INSULIN SLIDING SCALE (NOVOLOG) 1 VIAL SQ SCH ×3 (06:29→16:45)
[2017-07-26] MEDS: AMOX TR/POT CLAV 875MG/125MG TABLETS (FP) PO SCH ×2 (08:57→16:49)
[2017-07-26] MEDS: DOCUSATE SODIUM 100 MG CAPSULE (FP) PO SCH ×2 (10:00→22:26)
[2017-07-26] MEDS: AMMONIUM LACTATE 12% LOTION 225 GM BOTTLE TP SCH ×2 (10:00→22:27)
[2017-07-26] MEDS: DIGOXIN 0.125 MG TABLET (FP) PO SCH (10:00)
[2017-07-26] MEDS: LOSARTAN POTASSIUM 25 MG TABLET PO SCH (10:00)
[2017-07-26] MEDS: CLOTRIMAZOLE 1% CREAM 15 GM TUBE TP SCH ×2 (10:00→22:28)
[2017-07-26] MEDS: NYSTATIN POWDER 100,000 UNITS/GM - 15 GM TOPICAL POWDER TP SCH (10:00)
[2017-07-26] MEDS: GABAPENTIN 100 MG CAPSULE (FP) PO SCH ×2 (10:00→22:26)
[2017-07-26] MEDS: TIOTROPIUM BROMIDE 18 MCG/INH (DEVICE W/ 5 CAPSULES) IH SCH (10:00)
[2017-07-26] MEDS: ALLOPURINOL 100 MG TABLET (FP) PO SCH (10:10)
[2017-07-26] MEDS: POLYETHYLENE GLYCOL 3350 119 GM BTL PO SCH (12:32)
[2017-07-26 15:55] LABS: INR 3.79 (0.82-1.09); PROTHROMBIN TIME (PATIENT) 42.8 SEC (9.98-11.88)
[2017-07-26 15:58] LABS: ACTIVATED PTT 35.8 SECONDS (26.9-34.4)
--- NOTE | 2017-07-26 16:39 | PN ---
Progress Note (short form) - Note Progress Note: patient was seen and examined she is doing well she has no complaints, she has an issue with the placement of the correction. her son does not want her to return to the same place she was at, also the patient stated she needs help with walking she cannot ambulate properly due to the foot. AAOX3 s1 and s2 rrr obese abdomen, positive BS lungs CTA Plan: social work friday for placement rehab evaluation
[2017-07-26] MEDS: NYSTATIN 100,000 UNIT/GM TOPICAL CREAM 15 GM TUBE TP SCH ×2 (16:47→22:28)
[2017-07-26] MEDS: WARFARIN NA 5 MG TABLET (UD) PO SCH (18:32)
[2017-07-26] MEDS: MONTELUKAST NA 10 MG TABLET PO SCH (22:26)
[2017-07-27] MEDS: LEVOFLOXACIN 500 MG TABLET (FP) PO SCH (06:31)
[2017-07-27] MEDS: POTASSIUM CHLORIDE TABS 20 MEQ TABLET.ER (FP) PO SCH ×3 (06:31→21:53)
[2017-07-27] MEDS: FUROSEMIDE 40 MG TABLET (FP) PO SCH ×2 (06:31→13:58)
[2017-07-27] MEDS: INSULIN SLIDING SCALE (NOVOLOG) 1 VIAL SQ SCH ×3 (06:31→16:45)
[2017-07-27] MEDS: LEVOTHYROXINE NA 50 MCG TABLET (FP) PO SCH (06:31)
[2017-07-27] MEDS: AMOX TR/POT CLAV 875MG/125MG TABLETS (FP) PO SCH ×2 (07:34→17:10)
[2017-07-27 08:15] LABS: INR 3.27 (0.82-1.09); PROTHROMBIN TIME (PATIENT) 36.9 SEC (9.98-11.88)
[2017-07-27 08:18] LABS: ALBUMIN 2.7 g/dl (3.4-5.0); ALK PHOS 99 U/L (45-117); ANION GAP 7 (8-16); BILIRUBIN,TOTAL 0.7 mg/dL (0.2-1.0); CALCIUM 8.9 mg/dL (8.5-10.1); CO2 32 mmol/L (21-32); GLUCOSE,RANDOM 119 mg/dL (74-106); MAGNESIUM 2.1 mg/dL (1.8-2.4); SGOT/AST 15 U/L (15-37); SGPT/ALT 11 U/L (12-78); TOT PROT 6.5 g/dl (6.4-8.2)
[2017-07-27] MEDS: ALLOPURINOL 100 MG TABLET (FP) PO SCH (09:27)
[2017-07-27] MEDS: DIGOXIN 0.125 MG TABLET (FP) PO SCH (09:27)
[2017-07-27] MEDS: GABAPENTIN 100 MG CAPSULE (FP) PO SCH ×2 (09:27→21:53)
[2017-07-27] MEDS: LOSARTAN POTASSIUM 25 MG TABLET PO SCH (09:27)
[2017-07-27] MEDS: DOCUSATE SODIUM 100 MG CAPSULE (FP) PO SCH ×2 (09:27→21:53)
[2017-07-27] MEDS: NYSTATIN 100,000 UNIT/GM TOPICAL CREAM 15 GM TUBE TP SCH ×2 (10:00→21:54)
[2017-07-27] MEDS: POLYETHYLENE GLYCOL 3350 119 GM BTL PO SCH (10:00)
[2017-07-27] MEDS: CLOTRIMAZOLE 1% CREAM 15 GM TUBE TP SCH ×2 (10:30→21:53)
[2017-07-27] MEDS: NYSTATIN POWDER 100,000 UNITS/GM - 15 GM TOPICAL POWDER TP SCH (10:30)
[2017-07-27] MEDS: oxyCODONE HCL 5 MG TABLET PO PRN ×2 (10:51→19:44)
[2017-07-27] MEDS: AMMONIUM LACTATE 12% LOTION 225 GM BOTTLE TP SCH ×2 (11:00→21:53)
--- NOTE | 2017-07-27 11:04 | PN ---
Progress Note, Physician Chief Complaint: patient is doing well, she is complaining of pain in the foot, she states she doesnt want to go to the shelter she was at, and wants a new place. - Current Medication List Current Medications: Active Medications Acetaminophen (Tylenol -) 650 mg PO Q6H PRN PRN Reason: PAIN Last Admin: 07/25/17 12:19 Dose: 650 mg Allopurinol (Zyloprim -) 100 mg PO DAILY [facility] Last Admin: 07/27/17 09:27 Dose: 100 mg Amoxicillin/Clavulanate Potassium (Augmentin - 875mg Tablet) 1 tab PO BID@0800, 1730 [facility] Last Admin: 07/27/17 07:34 Dose: 1 tab Clotrimazole (Lotrimin 1% Cream -) 1 applic TP BID [facility] Last Admin: 07/26/17 22:28 Dose: 1 applic Digoxin (Lanoxin -) 0.125 mg PO DAILY [facility] Last Admin: 07/27/17 09:27 Dose: 0.125 mg Diltiazem HCl (Cardizem Cd -) 180 mg PO DAILY [facility] Last Admin: 07/27/17 09:27 Dose: 180 mg Docusate Sodium (Colace -) 100 mg PO BID [facility] Last Admin: 07/27/17 09:27 Dose: 100 mg Furosemide (Lasix -) 40 mg PO BIDLASIX [facility] Last Admin: 07/27/17 06:31 Dose: 40 mg Gabapentin (Neurontin -) 100 mg PO BID [facility] Last Admin: 07/27/17 09:27 Dose: 100 mg Insulin Aspart (Novolog Vial Sliding Scale -) 1 vial SQ TIDAC [facility] PRN Reason: Protocol Last Admin: 07/27/17 06:31 Dose: Not Given Lactic Acid (Lac-Hydrin 12) 1 applic TP BID [facility] Last Admin: 07/26/17 22:27 Dose: 1 applic Levofloxacin (Levaquin -) 500 mg PO DAILY@0600 [facility] Last Admin: 07/27/17 06:31 Dose: 500 mg Levothyroxine Sodium (Synthroid -) 50 mcg PO AM [facility] Last Admin: 07/27/17 06:31 Dose: 50 mcg Losartan Potassium (Cozaar -) 25 mg PO DAILY [facility] Last Admin: 07/27/17 09:27 Dose: 25 mg Montelukast Sodium (Singulair -) 10 mg PO HS [facility] Last Admin: 07/26/17 22:26 Dose: 10 mg Nystatin (Mycostatin Cream -) 1 applic TP BID [facility] Last Admin: 07/26/17 22:28 Dose: 1 applic Nystatin (Nystop Powder -) 1 applic TP DAILY [facility] Last Admin: 07/26/17 10:00 Dose: 1 applic Ondansetron HCl (Zofran Injection) 8 mg IVPB Q6H PRN PRN Reason: NAUSEA Oxycodone HCl (Roxicodone -) 5 mg PO Q6H PRN PRN Reason: PAIN Last Admin: 07/27/17 10:51 Dose: 5 mg Polyethylene Glycol (Miralax (For Daily Use) -) 17 gm PO DAILY [facility] Last Admin: 07/26/17 12:32 Dose: Not Given Potassium Chloride (K-Dur -) 20 meq PO TID [facility] Last Admin: 07/27/17 06:31 Dose: 20 meq Tiotropium [place] (Spiriva -) 1 puff IH DAILY [facility] Last Admin: 07/26/17 10:00 Dose: 1 puff Warfarin Sodium (Coumadin -) 5 mg PO DAILY@1800 [facility] Last Admin: 07/26/17 18:32 Dose: Not Given - Objective Vital Signs: Vital Signs Temperature 97.7 F 07/27/17 09:00 Pulse Rate 70 07/27/17 09:27 Respiratory Rate 20 07/27/17 09:00 Blood Pressure 95/47 07/27/17 09:00 O2 Sat by Pulse Oximetry (%) 96 07/27/17 09:00 Constitutional: Yes: Well Nourished, No Distress, Calm Eyes: Yes: WNL, Conjunctiva Clear, EOM Intact HENT: Yes: WNL, Atraumatic Neck: Yes: WNL, Supple Cardiovascular: Yes: WNL, Regular Rate and Rhythm, S1 Respiratory: Yes: WNL, Regular, CTA Bilaterally Gastrointestinal: Yes: WNL, Normal Bowel Sounds Labs: CBC, BMP 07/24/17 06:00 07/27/17 06:35 INR, PTT INR 3.27 (0.82-1.09) H 07/27/17 06:35 Assessment/Plan no active issues on the patient social work friday for placement rehab evaluation hold warfarin for tonight c/w pain medication with oxycodone c/w home medication Augmentin 875mg po bid + levaquin 500mg po qd x7d Follow up wound care center
[2017-07-27] MEDS: TIOTROPIUM BROMIDE 18 MCG/INH (DEVICE W/ 5 CAPSULES) IH SCH (14:02)
[2017-07-27] MEDS: WARFARIN NA 5 MG TABLET (UD) PO SCH (16:59)
[2017-07-27] MEDS: MONTELUKAST NA 10 MG TABLET PO SCH (21:53)
[2017-07-28] MEDS: FUROSEMIDE 40 MG TABLET (FP) PO SCH ×2 (06:32→14:39)
[2017-07-28] MEDS: POTASSIUM CHLORIDE TABS 20 MEQ TABLET.ER (FP) PO SCH ×3 (06:32→22:37)
[2017-07-28] MEDS: LEVOFLOXACIN 500 MG TABLET (FP) PO SCH (06:33)
[2017-07-28] MEDS: INSULIN SLIDING SCALE (NOVOLOG) 1 VIAL SQ SCH ×3 (06:33→17:20)
[2017-07-28] MEDS: LEVOTHYROXINE NA 50 MCG TABLET (FP) PO SCH (06:33)
[2017-07-28 07:17] LABS: BASOPHIL 1.3 % (0-2.0); EOSINOPHIL 5.3 % (0-4.5); MCH 25.8 pg (25.7-33.7); MCHC 31.6 g/dl (32.0-36.0); MEAN CELL VOLUME 81.6 fl (80-96); MEAN PLT VOLUME 7.4 fl (7.5-11.1); PLATELET COUNT 227 K/MM3 (134-434); RDW 18.9 % (11.6-15.6); WHITE BLOOD COUNT 6.7 K/mm3 (4.0-10.0)
[2017-07-28 07:39] LABS: INR 2.48 (0.82-1.09)
[2017-07-28] MEDS: AMOX TR/POT CLAV 875MG/125MG TABLETS (FP) PO SCH ×2 (08:17→17:21)
--- NOTE | 2017-07-28 09:55 | PN ---
Progress Note (short form) - Note Progress Note: Patient with multiple medical problems including A. Fibrillation on Coumadin, Chronic Bronchitis, Chronic stasis changes both lower extremities, Abdominal Pannus, and DM was admitted with a fall and was found to have a infection at the site of a recent amputation of the second toe right foot. Was seen by ID and IV antibiotics were given after Wound C/S was completed. She is now on oral Rx. She still has pain right foot and both knees exacerbated by her morbid obesity. I am anxious for Dr. Ayoub who performed her amputation to inspect her wound and give us his opinion including advice on frequency of dressing change. On exam: Vital Signs Temp 98 F 07/28/17 06:00 Pulse 66 07/28/17 06:00 Resp 20 07/28/17 06:00 BP 120/58 07/28/17 06:00 Pulse Ox 96 07/27/17 21:00 Intake & Output 07/27/17 07/27/17 07/28/17 11:59 23:59 11:59 Intake Total 240 740 Balance 240 740 Intake: Oral 240 740 Other: Voiding Method Toilet Toilet Toilet # Unmeasured Voids Void 1 Bowel Movement No Yes Alert Sitting at bedside Chest: Decreased sounds but no wheezes Cor; Irreg Abd Pannus Shawn pedal edema right leg Right foot bandaged Abnormal Lab Results 07/28/17 07/28/17 06:00 06:00 MCHC 31.6 L RDW 18.9 H MPV 7.4 L Monocytes % 11.6 H Eosinophils % 5.3 H PT with INR 28.00 H INR 2.48 H IMP: Infected site of recent toe amputation right foot Hx: Osteomyelitis 2nd tor right foot A. Fib on Coumadin DM Obesity Chronic Bronchitis Plan: F/U INR Visit Dr. Ayoub F/U SNF Abdominal Pannus
[2017-07-28] MEDS: LOSARTAN POTASSIUM 25 MG TABLET PO SCH (11:00)
[2017-07-28] MEDS: DOCUSATE SODIUM 100 MG CAPSULE (FP) PO SCH ×2 (11:00→22:37)
[2017-07-28] MEDS: DIGOXIN 0.125 MG TABLET (FP) PO SCH (11:00)
[2017-07-28] MEDS: ALLOPURINOL 100 MG TABLET (FP) PO SCH (11:00)
[2017-07-28] MEDS: GABAPENTIN 100 MG CAPSULE (FP) PO SCH ×2 (11:00→22:37)
[2017-07-28] MEDS: AMMONIUM LACTATE 12% LOTION 225 GM BOTTLE TP SCH ×2 (11:01→22:37)
[2017-07-28] MEDS: NYSTATIN POWDER 100,000 UNITS/GM - 15 GM TOPICAL POWDER TP SCH (11:01)
[2017-07-28] MEDS: NYSTATIN 100,000 UNIT/GM TOPICAL CREAM 15 GM TUBE TP SCH ×2 (11:02→22:37)
[2017-07-28] MEDS: POLYETHYLENE GLYCOL 3350 119 GM BTL PO SCH (11:03)
[2017-07-28] MEDS: CLOTRIMAZOLE 1% CREAM 15 GM TUBE TP SCH ×2 (11:03→22:37)
[2017-07-28] MEDS: TIOTROPIUM BROMIDE 18 MCG/INH (DEVICE W/ 5 CAPSULES) IH SCH (11:03)
[2017-07-28] MEDS ORDERED: WARFARIN NA 2 MG TABLET (UD) PO SCH (18:00)
[2017-07-28] MEDS: MONTELUKAST NA 10 MG TABLET PO SCH (22:37)
[2017-07-28] MEDS: oxyCODONE HCL 5 MG TABLET PO PRN (23:41)
[2017-07-29] MEDS: INSULIN SLIDING SCALE (NOVOLOG) 1 VIAL SQ SCH ×2 (06:02→11:09)
[2017-07-29] MEDS: POTASSIUM CHLORIDE TABS 20 MEQ TABLET.ER (FP) PO SCH ×2 (06:08→13:42)
[2017-07-29] MEDS: LEVOFLOXACIN 500 MG TABLET (FP) PO SCH (06:08)
[2017-07-29] MEDS: LEVOTHYROXINE NA 50 MCG TABLET (FP) PO SCH (06:08)
[2017-07-29] MEDS: FUROSEMIDE 40 MG TABLET (FP) PO SCH ×2 (06:08→13:42)
[2017-07-29 08:25] LABS: GLUCOSE,RANDOM 135 mg/dL (74-106); INR 2.1 (0.82-1.09); PROTHROMBIN TIME (PATIENT) 23.7 SEC (9.98-11.88)
[2017-07-29 08:26] LABS: ANION GAP 12 (8-16); CALCIUM 8.7 mg/dL (8.5-10.1); CO2 30 mmol/L (21-32); CREATININE 0.9 mg/dL (0.55-1.02)
[2017-07-29] MEDS: AMOX TR/POT CLAV 875MG/125MG TABLETS (FP) PO SCH (08:45)
[2017-07-29] MEDS: CLOTRIMAZOLE 1% CREAM 15 GM TUBE TP SCH (09:09)
[2017-07-29] MEDS: NYSTATIN POWDER 100,000 UNITS/GM - 15 GM TOPICAL POWDER TP SCH (09:09)
[2017-07-29] MEDS: AMMONIUM LACTATE 12% LOTION 225 GM BOTTLE TP SCH (09:09)
[2017-07-29] MEDS: GABAPENTIN 100 MG CAPSULE (FP) PO SCH (09:10)
[2017-07-29] MEDS: DOCUSATE SODIUM 100 MG CAPSULE (FP) PO SCH (09:10)
[2017-07-29] MEDS: DIGOXIN 0.125 MG TABLET (FP) PO SCH (09:10)
[2017-07-29] MEDS: ALLOPURINOL 100 MG TABLET (FP) PO SCH (09:11)
[2017-07-29] MEDS: LOSARTAN POTASSIUM 25 MG TABLET PO SCH (09:11)
[2017-07-29] MEDS: TIOTROPIUM BROMIDE 18 MCG/INH (DEVICE W/ 5 CAPSULES) IH SCH (09:12)
[2017-07-29] MEDS: NYSTATIN 100,000 UNIT/GM TOPICAL CREAM 15 GM TUBE TP SCH (09:12)
[2017-07-29] MEDS: POLYETHYLENE GLYCOL 3350 119 GM BTL PO SCH (09:13)
--- NOTE | 2017-07-29 12:09 | PN ---
Progress Note, Physician Chief Complaint: No new complaints.Some pain in right foot and knees when she is on her feet. History of Present Illness: Patient with multiple illnesses admitted with fall at home and infection at stump site of recent toe amputation 2nd toe right foot. Was on IV antibiotics as per ID MD advice and is now switched to oral Rx and SNF placement because of right foot and bilateral knee pains. Lab is stable and INR currently therapeutic. Dr. Ayoub who performed her amputation was able to revisist the patient today and inspect the right foot. She will be transferred later today to SNF. - Current Medication List Current Medications: Active Medications Acetaminophen (Tylenol -) 650 mg PO Q6H PRN PRN Reason: PAIN Last Admin: 07/25/17 12:19 Dose: 650 mg Allopurinol (Zyloprim -) 100 mg PO DAILY [facility] Last Admin: 07/29/17 09:11 Dose: 100 mg Amoxicillin/Clavulanate Potassium (Augmentin - 875mg Tablet) 1 tab PO BID@0800, 1730 [facility] Last Admin: 07/29/17 08:45 Dose: 1 tab Clotrimazole (Lotrimin 1% Cream -) 1 applic TP BID [facility] Last Admin: 07/29/17 09:09 Dose: 1 applic Digoxin (Lanoxin -) 0.125 mg PO DAILY [facility] Last Admin: 07/29/17 09:10 Dose: 0.125 mg Diltiazem HCl (Cardizem Cd -) 180 mg PO DAILY [facility] Last Admin: 07/29/17 09:11 Dose: 180 mg Docusate Sodium (Colace -) 100 mg PO BID [facility] Last Admin: 07/29/17 09:10 Dose: 100 mg Furosemide (Lasix -) 40 mg PO BIDLASIX [facility] Last Admin: 07/29/17 06:08 Dose: 40 mg Gabapentin (Neurontin -) 100 mg PO BID [facility] Last Admin: 07/29/17 09:10 Dose: 100 mg Insulin Aspart (Novolog Vial Sliding Scale -) 1 vial SQ TIDAC [facility] PRN Reason: Protocol Last Admin: 07/29/17 11:09 Dose: Not Given Levofloxacin (Levaquin -) 500 mg PO DAILY@0600 [facility] Last Admin: 07/29/17 06:08 Dose: 500 mg Levothyroxine Sodium (Synthroid -) 50 mcg PO AM [facility] Last Admin: 07/29/17 06:08 Dose: 50 mcg Losartan Potassium (Cozaar -) 25 mg PO DAILY [facility] Last Admin: 07/29/17 09:11 Dose: Not Given Montelukast Sodium (Singulair -) 10 mg PO HS [facility] Last Admin: 07/28/17 22:37 Dose: 10 mg Nystatin (Mycostatin Cream -) 1 applic TP BID [facility] Last Admin: 07/29/17 09:12 Dose: 1 applic Oxycodone HCl (Roxicodone -) 5 mg PO Q6H PRN PRN Reason: PAIN Last Admin: 07/28/17 23:41 Dose: 5 mg Polyethylene Glycol (Miralax (For Daily Use) -) 17 gm PO DAILY [facility] Last Admin: 07/29/17 09:13 Dose: Not Given Potassium Chloride (K-Dur -) 20 meq PO TID [facility] Last Admin: 07/29/17 06:08 Dose: 20 meq Tiotropium [place] (Spiriva -) 1 puff IH DAILY [facility] Last Admin: 07/29/17 09:12 Dose: 1 puff Triamcinolone Acetonide (Aristocort 0.1% Cream -) 1 applic TP BID [facility] Warfarin Sodium (Coumadin -) 4 mg PO DAILY@1800 [facility] Last Admin: 07/28/17 17:21 Dose: 4 mg - Objective Vital Signs: Vital Signs Temperature 98.2 F 07/29/17 10:00 Pulse Rate 98 H 07/29/17 10:00 Respiratory Rate 20 07/29/17 10:00 Blood Pressure 100/60 07/29/17 10:00 O2 Sat by Pulse Oximetry (%) 97 07/29/17 10:00 Constitutional: Yes: Calm Eyes: Yes: Conjunctiva Clear Cardiovascular: Yes: Pulse Irregular. No: Tachycardia Respiratory: Yes: Diminished. No: Rales, Wheezes Gastrointestinal: Yes: Abdomen, Obese, Other (pannus) Genitourinary: No: Bae Present Edema: LLE: 1+, RLE: 1+ Integumentary: Yes: Venous Stasis Changes (Bilateral) Neurological: Yes: Alert, Oriented Labs: CBC, BMP 07/28/17 06:00 07/29/17 06:00 INR, PTT INR 2.10 (0.82-1.09) H 07/29/17 06:00 Problem List - Problems (1) Amputation stump infection Assessment/Plan: Wound site examine dbgeorge Ayoub today. To SNF on oral antibiotics. 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 Code(s): R26.2 - DIFFICULTY IN WALKING, NOT ELSEWHERE CLASSIFIED (3) Morbid obesity Assessment/Plan: Complicated by Abdominal Pannus but has refused surgery before. Code(s): E66.01 - MORBID (SEVERE) OBESITY DUE TO EXCESS CALORIES (4) Atrial fibrillation Assessment/Plan: On Coumadin Rx. Code(s): I48.91 - UNSPECIFIED ATRIAL FIBRILLATION Qualifiers: Atrial fibrillation type: chronic Qualified Code(s): I48.2 - Chronic atrial fibrillation (5) COPD (chronic obstructive pulmonary disease) Assessment/Plan: Stable with no current wheezes. Code(s): J44.9 - CHRONIC OBSTRUCTIVE PULMONARY DISEASE, UNSPECIFIED Qualifiers: COPD type: COPD with acute exacerbation Qualified Code(s): J44.1 - Chronic obstructive pulmonary disease with (acute) exacerbation (6) Diabetes Assessment/Plan: Last BGM 144. On Rx. Code(s): E11.9 - TYPE 2 DIABETES MELLITUS WITHOUT COMPLICATIONS Qualifiers: Diabetes mellitus type: type 2 Diabetes mellitus complication status: with hyperglycemia Diabetes mellitus moth exterminator insulin use: without mcc use Qualified Code(s): E11.65 - Type 2 diabetes mellitus with hyperglycemia (7) Rash and nonspecific skin eruption Assessment/Plan: ? due to antibiotics but was present before current Rx started. Will change Rx to Triamcinolone cream. Code(s): R21 - RASH AND OTHER NONSPECIFIC SKIN ERUPTION
--- NOTE | 2017-07-29 12:35 | PN ---
Progress Note (short form) - Note Progress Note: Podiatry F/U; Seen/evaluated at bedside, NAD. Pain controlled, denies F/V/N/C/SOB/CP. AFebrile, VSS. S/p R 2nd digit amputation, with post-surgical stump dehiscence. Patient admitted for fall at home. Normally appears a bit disheveled, has trouble getting around at home. LUIS: R foot: post-surgical amputation stump ulcer with mostly fibrotic base, decreased in size, no probing to bone, no purulence, no fluctuance, no periwound erythema, no ascending cellulitis, no soft tissue crepitus, no signs of active infection. No tenderness to palpation. Imp: 82 year old DM F s/p R 2nd digit amputation with 2nd amputation stump DM ulcer 1. Excisional debridement R foot diabetic ulcer using sterile scissors. 2. Recommend local wound care with algidex paste changed every other day at SNF. 3. Agree with SNF placement. 4. Can f/u in 1 week at [facility] wound healing center. Mg Ayoub DPM
[2017-07-29 13:58] VITALS: BP 110/62; PULSE 75; TEMP 97.8
[2017-07-29] MEDS: oxyCODONE HCL 5 MG TABLET PO PRN (14:12)
[2017-07-29] MEDS ORDERED: TRIAMCINOLONE ACET 0.1% CREAM 15 GM TUBE TP SCH (22:00)
== END 2017-07-29 16:42 | DRG 464 ==
LOC: SUPCPDRO 21:18 → JER 21:18 → JERBED 07-20 01:28 → J7W 07-20 13:46
PROVIDERS: ADMIT Internal Medicine; ATTEND Internal Medicine
PROC: 0JBQ0ZZ Excision of Right Foot Subcutaneous Tissue and Fascia, Open Approach (ICD-10-PCS; principal; 2017-07-29)
DX: T87.43 Infection of amputation stump, right lower extremity (principal); Z68.42 Body mass index [BMI] 45.0-49.9, adult; J80 Acute respiratory distress syndrome; I50.32 Chronic diastolic (congestive) heart failure; J44.1 Chronic obstructive pulmonary disease with (acute) exacerbation; N17.9 Acute kidney failure, unspecified; M86.8X7 Other osteomyelitis, ankle and foot; E11.621 Type 2 diabetes mellitus with foot ulcer; I11.0 Hypertensive heart disease with heart failure; I48.2 Chronic atrial fibrillation; I25.10 Atherosclerotic heart disease of native coronary artery without angina pectoris; E11.65 Type 2 diabetes mellitus with hyperglycemia; F03.90 Unspecified dementia, unspecified severity, without behavioral disturbance, psychotic disturbance, mood disturbance, and anxiety; G93.0 Cerebral cysts; E78.00 Pure hypercholesterolemia, unspecified; E11.40 Type 2 diabetes mellitus with diabetic neuropathy, unspecified; E66.01 Morbid (severe) obesity due to excess calories; E87.6 Hypokalemia; D72.828 Other elevated white blood cell count; Z16.35 Resistance to multiple antimicrobial drugs; K44.9 Diaphragmatic hernia without obstruction or gangrene; M17.0 Bilateral primary osteoarthritis of knee; L30.9 Dermatitis, unspecified; E83.42 Hypomagnesemia; R26.2 Difficulty in walking, not elsewhere classified; R21 Rash and other nonspecific skin eruption; E11.69 Type 2 diabetes mellitus with other specified complication; B95.62 Methicillin resistant Staphylococcus aureus infection as the cause of diseases classified elsewhere; W01.0XXA Fall on same level from slipping, tripping and stumbling without subsequent striking against object, initial encounter; Y93.89 Activity, other specified; Y92.098 Other place in other non-institutional residence as the place of occurrence of the external cause; Z99.81 Dependence on supplemental oxygen; Z87.891 Personal history of nicotine dependence; Z89.431 Acquired absence of right foot; Z86.718 Personal history of other venous thrombosis and embolism; Z90.722 Acquired absence of ovaries, bilateral; Z79.4 Long term (current) use of insulin
CPT/HCPCS: 36415; 70450-TC; 73523-TC; 73552-TC-RT; 73630-TC-RT; 80048; 80053; 80162; 81003; 81015; 83735; 84100; 85025; 85027; 85610; 85651; 85730; 87040; 87070; 87077; 87186; 87205; 93005; 93010; 94640; 97116-GP; 97162-GP; 99285-25; G0277

== ENCOUNTER 2017-09-23 13:23 | Inpatient (IN) | payer OTHER ==
--- NOTE | 2017-09-23 15:26 | PDOC ---
History of Present Illness - General Chief Complaint: Shortness of Breath Stated Complaint: WOUND CARE SENT, SOB Time Seen by Provider: 09/23/17 14:42 - History of Present Illness Initial Comments: 09/23/17 15:18 Pt is an 82 y/o F with extensive PMH significant for COPD (on home O2, unclear how much), AF (on coumadin), NIDDM who was sent from wound care clinic for difficulty breathing. Pt was seen by Dr. Storey on Sep 15 for difficulty breathing and increased wheezing compared to her baseline. At that time, Dr. Villarreal prescribed an antibiotic whose name the patient cannot recall. Today she went to wound care for ulcers on both heels, and staff felt she wasn't breathing well and sent her to ED. In ED, pt O2 sats were 88-92% (currently satting 95-97%). Pt states she feels ok and would prefer to go home if possible. Past History - Past Medical History Allergies/Adverse Reactions: Allergies Allergy/AdvReac Type Severity Reaction Status Date / Time No Known Allergies Allergy Verified 09/23/17 13:32 Home Medications: Ambulatory Orders Albuterol Sulfate Inhaler - [Ventolin HFA Inhaler -] 2 inh IH Q6H PRN #0 inh 04/27 Allopurinol [Zyloprim -] 100 mg PO DAILY #0 tablet 06/22/13 Diltiazem Cd [Cardizem Cd -] 180 mg PO DAILY #0 cap.cd.24h 06/22/13 Montelukast Na [Singulair -] 10 mg PO HS #0 tablet 06/22/13 Acetaminophen [Tylenol .Regular Strength -] 650 mg PO Q6H PRN #240 tablet Tiotropium [place] [Spiriva] 1 inh PO DAILY #1 inhaler 06/23/13 Furosemide [Lasix -] 40 mg PO BID 03/02/14 Levothyroxine [Synthroid -] 50 mcg PO DAILY 03/02/14 Glimepiride [Amaryl] 2 mg PO BID 08/07/14 Digoxin [Lanoxin -] 1 tab PO DAILY #90 tablet 09/08/15 Docusate Sodium [Colace -] 100 mg PO BID PRN #0 cap 04/29/17 Polyethylene Glycol 3350 [Miralax 119 gm Btl -] 17 gm PO DAILY #1 bottle Potassium Chloride [K-Dur -] 20 meq PO TID tab 04/29/17 Gabapentin [Neurontin -] 100 mg PO BID #60 cap 05/28/17 Losartan Potassium [Cozaar -] 25 mg PO DAILY #30 tablet 05/28/17 Warfarin Na [Coumadin -] 4 mg PO DAILY@1800 tablet 05/28/17 Clotrimazole [Lotrimin -] 1 applic TP BID tube 07/29/17 Insulin Sliding Scale [Novolog Vial Sliding Scale -] 1 vial SQ TIDAC units Oxycodone HCl [Roxicodone -] 5 mg PO Q6H PRN tablet MDD 4 07/29/17 Triamcinolone 0.1% Cream [Aristocort 0.1% Cream -] 1 applic TP BID applic 07/29 Prednisone [Deltasone -] 40 mg PO DAILY #4 tablet 09/23/17 Anemia: No Asthma: Yes Cancer: No Cardiac Disorders: Yes (ATRIAL FIBRILLATION) CVA: No COPD: Yes CHF: Yes DVT: No Dementia: Yes Diabetes: Yes GI Disorders: No (HIATAL HERNIA, OBSTRUCTION) Disorders: Yes (uti) HTN: Yes Hypercholesterolemia: Yes Liver Disease: No Seizures: No Thyroid Disease: Yes (HYPO) - Surgical History Abdominal Surgery: Yes (HERNIA REPAIR X 3) Appendectomy: Yes (RUPTURED) Cardiac Surgery: Yes (cardioversion x 2) Cholecystectomy: Yes Lung Surgery: No Neurologic Surgery: No Orthopedic Surgery: No - Immunization History Immunization Up to Date: Yes - Suicide/Smoking/Psychosocial Hx Smoking Status: No Smoking History: Never smoked Have you smoked in the past 12 months: No Number of Cigarettes Smoked Daily: 0 If you are a former smoker, when did you quit?: 2007 Cigars Per Day: 20 Information on smoking cessation initiated: No Hx Alcohol Use: No Drug/Substance Use Hx: No Substance Use Type: None Hx Substance Use Treatment: No Review of Systems - Review of Systems Able to Perform ROS?: Yes Is the patient limited Maltese proficient: No Constitutional: Yes: Symptoms Reported. No: Chills, Diaphoresis, Fever HEENTM: Yes: Symptoms Reported. No: Blurred Vision, Hearing Loss Respiratory: Yes: Symptoms reported, Shortness of Breath, SOB with Exertion, SOB at Rest, Wheezing. No: Cough, Orthopnea Cardiac (ROS): Yes: Symptoms Reported, Edema, Irregular Heart Rate. No: Chest Pain, Lightheadedness, Palpitations ABD/GI: Yes: Symptoms Reported, Poor Appetite. No: Abdominal Distended, Constipated, Diarrhea, Nausea, Vomiting, Indigestion, Abdominal cramping : Yes: Symptoms Reported. No: Burning, Dysuria, Discharge Integumentary: Yes: Symptoms Reported, Rash (b/l LE) *Physical Exam - Vital Signs Last Vital Signs Temp Pulse Resp BP Pulse Ox 98 F 78 18 132/56 90 L 09/23/17 13:30 09/23/17 13:30 09/23/17 13:30 09/23/17 13:30 09/23/17 13:30 - Physical Exam General Appearance: Yes: Nourished, Appropriately Dressed. No: Apparent Distress, Disheveled HEENT: positive: EOMI, JAMEL. negative: Normal ENT Inspection (slightly dry mucous membranes) Neck: positive: Supple. negative: Tender, Stridor (no stridor, but wheezing is heard) Respiratory/Chest: positive: Wheezing (diffuse. L>R). negative: Chest Tender, Lungs Clear, Normal Breath Sounds Vascular Pulses: Dorsalis-Pedis (R): 1+, Doralis-Pedis (L): 1+ Gastrointestinal/Abdominal: positive: Normal Bowel Sounds, Flat, Soft. negative : Tender Extremity: positive: Pedal Edema, Swelling, Erythema, Other (stasis dermatitis) . negative: Normal Inspection ED Treatment Course - LABORATORY CBC & Chemistry Diagram: 09/23/17 18:26 09/23/17 18:26 Medical Decision Making - Medical Decision Making 09/23/17 15:29 Pt is an 82 y/o F with PMH significant for Afib, COPD, NIDDM who presents to ED sent from wound care clinic for difficulty breathing. Pt likely is being treated for PNA as an outpt as she was placed on antibiotics by PMD. Likely pt presenting in the midst of a COPD exacerbation. Plan -CBC -CMP -CXR -Duonebs -Prednisone -c/w ABX 09/23/17 15:32 Dr. Storey called and said pt likely will not need admission, but would possibly benefit from breathing treatment and possibly steroids. 09/23/17 16:[address] Storey who agrees with CXR, nebs, and steroids. He said if the patient is stable and CXR is clear he is comfortable with her following up with him in the office so long as her son agrees to take her home. 09/23/17 18:39 Pt's CXR shows R sided opacification. Possible effusion, cannot rule out PNA. Pt's O2 in mid 80's 09/23/17 19:42 Spoke with hospitalist. Pt is accepted. *DC/Admit/Observation/Transfer Diagnosis at time of Disposition: COPD (chronic obstructive pulmonary disease) - Discharge Dispostion Admit: Yes - Prescriptions Prescriptions: Prednisone [Deltasone -] 40 mg PO DAILY #4 tablet - Referrals Referrals: Xavi Storey MD [Primary Care Provider] - - Patient Instructions - Post Discharge Activity
--- NOTE | 2017-09-23 16:26 | PDOC ---
Attending Attestation - Resident Resident Name: CharlottenilsaViral - ED Attending Attestation I have performed the following: I have examined & evaluated the patient, The case was reviewed & discussed with the resident, I agree w/resident's findings & plan, Exceptions are as noted - HPI HPI: 09/23/17 16:25 82y F hx of iddm, copd (normal sat of low 90s) afib, presents with with complaint of sob. The patient has been having increased sob/morales for the past few days as well as cough. she was at wound care who noted she was breathing alitle hard so she was sent to the ED for evaluation. she was started on an abx by her pmd (she is not sure what it is, but still is on it). no associated fever, cp. on exam the pt is mildly tachpyneic her pulm exam noted for diffuse wheezing w/o rales le shows mild swelling was on abx from pmd for respiratory sypmtoms from her PMD. was here at wound care today, they felt she wasnt breathing well. her room air sat 89-90 per PMD - it is usually ~94% on RA - Physicial Exam PE: 09/28/17 08:04 see above - Medical Decision Making 09/23/17 18:11 pt persistently hypoxic cxr noted for RLL consolidation will admit for pna and copd exacerbation CRITICAL CARE DOCUMENTATION: I spent ~35 minutes of Critical Care time, excluding separately billable procedures, involving high complexity decision making to assess, manipulate and support vital system function(s) to treat single or multiple vital organ system failure and/or to prevent further life threatening deterioration of the patient' s condition.
[2017-09-23] MEDS ORDERED: ALBUTEROL SO4 2.5/IPRATROPIUM 0.5 INH SOL 3 ML VIAL.NEB. NEB ONE ×3 (16:28→16:34)
[2017-09-23] MEDS ORDERED: predniSONE 20 MG TABLET (UD) PO ONE (16:34)
[2017-09-23 18:46] LABS: BASO % 0.9 % (0-2.0); EOS % 4.1 % (0-4.5); HEMATOCRIT 38.9 % (32.4-45.2); HEMOGLOBIN 12.1 GM/dL (10.7-15.3); LYMPH % 20.2 % (8-40); MCH 25.8 pg (25.7-33.7); MCHC 31.1 g/dl (32.0-36.0); MEAN PLT VOLUME 7.6 fl (7.5-11.1); MONO % 6.3 % (3.8-10.2); NEUT % 68.5 % (42.8-82.8); PLATELET COUNT 285 K/MM3 (134-434); RBC 4.69 M/mm3 (3.60-5.2)
[2017-09-23 19:01] LABS: VENOUS PC02 59.5 mmHg (38-52); VENOUS PH 7.35 (7.32-7.42); VENOUS PO2 46.5 mmHg (28-48)
[2017-09-23 19:06] LABS: ALBUMIN 2.7 g/dl (3.4-5.0); ALK PHOS 109 U/L (45-117); ANION GAP 6 (8-16); BILIRUBIN,TOTAL 0.4 mg/dL (0.2-1.0); BLOOD UREA NITROGEN 16 mg/dL (7-18); CALCIUM 9.1 mg/dL (8.5-10.1); CHLORIDE 104 mmol/L (98-107); CO2 33 mmol/L (21-32); CREATININE 0.7 mg/dL (0.55-1.02); GLUCOSE,RANDOM 128 mg/dL (74-106); POTASSIUM 4.3 mmol/L (3.5-5.1); SGOT/AST 31 U/L (15-37); SGPT/ALT 22 U/L (12-78); SODIUM 143 mmol/L (136-145)
[2017-09-23] MEDS ORDERED: PIPERACILLIN/TAZOB 4.5 GM/100 ML PREMIX BAG IVPB SCH (21:15)
--- NOTE | 2017-09-23 21:16 | HP ---
Admitting History and Physical - Primary Care Physician PCP: Xavi Storey - Admission Chief Complaint: Difficulty Breathing, cough History of Present Illness: This is a 82 y/o woman with a medical history of COPD (O2 dep), CHF, Afib (on Coumadin), HTN, HLD, NIDDM, Hypothyroid, Diabetic Foot Ulcers (wound care). Who presents to the ED from the wound care center for Difficulty breathing x 1 week. Patient reports being on abx since 09/15/17 for 10 days. Patient reports not having heat in her home for several days. Patient denies fever, chills, dizziness, CP, AP, N/V/D, constipation, dysuria. [facility] in [place] was contacted- patient was prescribed Cefuroxime 500mg BID x 10 days History Source: Patient Limitations to Obtaining History: No Limitations - Past Medical History Cardiovascular: Yes: AFIB, CHF, Deep Vein Thrombosis, HTN, Hyperlipdemia Pulmonary: Yes: Asthma, COPD, O2 Dependent Gastrointestinal: Yes: Hiatal Hernia Infectious Disease: Yes: MRSA, VREF Musculoskeletal: Yes: Osteoarthritis Endocrine: Yes: Diabetes Mellitus, Hypothyroidism Dermatology: Yes: Cellulitis, Eczema - Past Surgical History Past Surgical History: Yes: Appendectomy, Cholecystectomy, Hernia Repair (times three), Oopherectomy, Tonsillectomy - Smoking History Smoking history: Never smoked Have you smoked in the past 12 months: No Aproximately how many cigarettes per day: 0 If you are a former smoker, when did you quit?: 2007 - Alcohol/Substance Use Hx Alcohol Use: No History of Substance Use: reports: None - Social History Usual Living Arrangement: Yes: With Child ADL: Independent History of Recent Travel: No Home Medications - Allergies Allergies/Adverse Reactions: Allergies Allergy/AdvReac Type Severity Reaction Status Date / Time No Known Allergies Allergy Verified 09/23/17 13:32 - Home Medications Home Medications: Ambulatory Orders Albuterol Sulfate Inhaler - [Ventolin HFA Inhaler -] 2 inh IH Q6H PRN #0 inh 04/27 Allopurinol [Zyloprim -] 100 mg PO DAILY #0 tablet 06/22/13 Diltiazem Cd [Cardizem Cd -] 180 mg PO DAILY #0 cap.cd.24h 06/22/13 Montelukast Na [Singulair -] 10 mg PO HS #0 tablet 06/22/13 Acetaminophen [Tylenol .Regular Strength -] 650 mg PO Q6H PRN #240 tablet Tiotropium King [Spiriva] 1 inh PO DAILY #1 inhaler 06/23/13 Furosemide [Lasix -] 40 mg PO BID 03/02/14 Levothyroxine [Synthroid -] 50 mcg PO DAILY 03/02/14 Glimepiride [Amaryl] 2 mg PO BID 08/07/14 Digoxin [Lanoxin -] 1 tab PO DAILY #90 tablet 09/08/15 Docusate Sodium [Colace -] 100 mg PO BID PRN #0 cap 04/29/17 Polyethylene Glycol 3350 [Miralax 119 gm Btl -] 17 gm PO DAILY #1 bottle Potassium Chloride [K-Dur -] 20 meq PO TID tab 04/29/17 Gabapentin [Neurontin -] 100 mg PO BID #60 cap 05/28/17 Losartan Potassium [Cozaar -] 25 mg PO DAILY #30 tablet 05/28/17 Warfarin Na [Coumadin -] 4 mg PO DAILY@1800 tablet 05/28/17 Clotrimazole [Lotrimin -] 1 applic TP BID tube 07/29/17 Insulin Sliding Scale [Novolog Vial Sliding Scale -] 1 vial SQ TIDAC units Oxycodone HCl [Roxicodone -] 5 mg PO Q6H PRN tablet MDD 4 07/29/17 Triamcinolone 0.1% Cream [Aristocort 0.1% Cream -] 1 applic TP BID applic 07/29 Prednisone [Deltasone -] 40 mg PO DAILY #4 tablet 09/23/17 Home Medications (free text): Cefuroxime 500mg po BID x 10 days Family Disease History - Family Disease History Family Disease History: Heart Disease: Mother ([place]), Other: Father (ETOH cirrhosis), Sister (alive and well) Review of Systems - Review of Systems Constitutional: reports: No Symptoms Eyes: reports: No Symptoms HENT: reports: No Symptoms Neck: reports: No Symptoms Cardiovascular: reports: Edema, Shortness of Breath Respiratory: reports: Cough, PND, SOB, SOB on Exertion, Wheezing Gastrointestinal: reports: No Symptoms Genitourinary: reports: No Symptoms Breasts: reports: No Symptoms Reported Musculoskeletal: reports: No Symptoms Integumentary: reports: Wound (bilateral feet) Neurological: reports: No Symptoms Endocrine: reports: No Symptoms Hematology/Lymphatic: reports: No Symptoms Psychiatric: reports: No Symptoms Physical Examination Vital Signs: Vital Signs Temperature 98 F 09/23/17 13:30 Pulse Rate 78 09/23/17 13:30 Respiratory Rate 18 09/23/17 13:30 Blood Pressure 132/56 09/23/17 13:30 O2 Sat by Pulse Oximetry (%) 90 L 09/23/17 13:30 Constitutional: Yes: Well Nourished, Obese Eyes: Yes: WNL, Conjunctiva Clear, EOM Intact, PERRL HENT: Yes: WNL, Atraumatic, Normocephalic Neck: Yes: WNL, Supple, Trachea Midline Cardiovascular: Yes: Pulse Irregular, S1, S2 Respiratory: Yes: On Nasal O2, Rales, SOB, Wheezes Gastrointestinal: Yes: Normal Bowel Sounds, Soft, Abdomen, Obese ...Rectal Exam: Yes: Deferred Renal/: Yes: WNL Breast(s): Yes: WNL Musculoskeletal: Yes: WNL Extremities: Yes: Other (venous stasis ulcers lower extremities) Edema: Yes Edema: LLE: 3+, RLE: 3+ Peripheral Pulses WNL: Yes Integumentary: Yes: Venous Stasis Changes (b/l legs) Wound/Incision: Yes: Dressing Dry and Intact (bilateral feet) Neurological: Yes: WNL, Alert, Oriented ...Motor Strength: WNL Psychiatric: Yes: WNL, Alert, Oriented Labs: CBC, BMP 09/23/17 18:26 09/23/17 18:26 Laboratory Results - last 24 hr 09/23/17 09/23/17 09/23/17 18:26 18:26 18:26 WBC 7.0 RBC 4.69 Hgb 12.1 D Hct 38.9 MCV 83.0 MCH 25.8 MCHC 31.1 L RDW 20.0 H Plt Count 285 D MPV 7.6 Neutrophils % 68.5 Lymphocytes % 20.2 Monocytes % 6.3 Eosinophils % 4.1 Basophils % 0.9 VBG pH 7.35 POC VBG pCO2 59.5 H POC VBG pO2 46.5 Mixed VBG HCO3 32.2 H Sodium 143 Potassium 4.3 Chloride 104 Carbon Dioxide 33 H Anion Gap 6 L BUN 16 D Creatinine 0.7 D Creat Clearance w eGFR > 60 Random Glucose 128 H Calcium 9.1 Total Bilirubin 0.4 D AST 31 D ALT 22 D Alkaline Phosphatase 109 Total Protein 7.0 Albumin 2.7 L Intake & Output 09/20/17 09/21/17 09/22/17 09/23/17 23:59 23:59 23:59 23:59 Weight 90.718 kg Imaging - Results Chest X-ray: Image Reviewed EKG: Pending Problem List - Problems (1) Pneumonia Code(s): J18.9 - PNEUMONIA, UNSPECIFIED ORGANISM (2) DVT prophylaxis Code(s): GRQ8338 - (3) COPD (chronic obstructive pulmonary disease) Code(s): J44.9 - CHRONIC OBSTRUCTIVE PULMONARY DISEASE, UNSPECIFIED (4) Atrial fibrillation Code(s): I48.91 - UNSPECIFIED ATRIAL FIBRILLATION Qualifiers: Atrial fibrillation type: chronic Qualified Code(s): I48.2 - Chronic atrial fibrillation (5) COPD with acute exacerbation Code(s): J44.1 - CHRONIC OBSTRUCTIVE PULMONARY DISEASE W (ACUTE) EXACERBATION (6) Diabetes Code(s): E11.9 - TYPE 2 DIABETES MELLITUS WITHOUT COMPLICATIONS Qualifiers: Diabetes mellitus type: type 2 Diabetes mellitus complication status: with hyperglycemia Diabetes mellitus fci insulin use: without fci use Qualified Code(s): E11.65 - Type 2 diabetes mellitus with hyperglycemia (7) HTN (hypertension) Code(s): I10 - ESSENTIAL (PRIMARY) HYPERTENSION Qualifiers: Hypertension type: essential hypertension Qualified Code(s): I10 - Essential (primary) hypertension (8) Hypoxia Code(s): R09.02 - HYPOXEMIA (9) Infection with multi-drug resistant microorganisms Code(s): Z16.35 - RESISTANCE TO MULTIPLE ANTIMICROBIAL DRUGS (10) Morbid obesity Code(s): E66.01 - MORBID (SEVERE) OBESITY DUE TO EXCESS CALORIES Assessment/Plan 82 y/o woman. Admitted for Pneumonia, Acute COPD Exacerbation, Hypoxemia Plan: 1. Pneumonia- CURB65 Score 1. Chest Xray- consolidative opacity in the right lung base. Will treat with Zosyn and Vancomycin secondary to MDRS, VREF. Blood Cultures-pending, Urine Legionella, U/A, Urine Culture ordered. Rapid Influenza ordered. Appreciate ID Consult, Monitor CBC. Monitor vitals, O2, Duonebs. 2. Acute COPD Exacerbation- Chest Xray-reviewed, Duonebs, Steroids w/taper, Appreciate Pulm Consult, O2, Monitor vitals 3. Acute on Chronic CHF Exacerbation- Chest Xray report- moderate pulmonary vascular congestion. Small pleural effusion R>L. Continue Lasix, Strict INOs, Daily weights. O2 4. Afib- EKG-pending, PT/INR ordered, patient is on Coumadin. INR resulted 3.46 , will Hold Coumadin, PT/INR daily 5. NIDDM- BGMs, ISS, HgbA1C in am 6. HTN- Monitor BP, continue home meds 7. HLD- Continue home med 8. DVT/PPI Prophylaxis- Coumadin held secondary to Supratherapeutic INR, PPI 9. FEN- Fluid restriction 500ml, Replete lytes prn, Low Na, Diabetic Diet Code Status: Full Code Dispo: Requires Inpatient Care Visit type - Emergency Visit Emergency Visit: Yes ED Registration Date: 09/23/17 Care time: The patient presented to the Emergency Department on the above date and was hospitalized for further evaluation of their emergent condition. - New Patient This patient is new to me today: Yes Date on this admission: 09/24/17 - Critical Care Critical Care patient: No
[2017-09-23] MEDS ORDERED: PIPERACILLIN/TAZOB 4.5 GM 4.5 GM in DEXTROSE 5%-WATER - 100 ML IVPB ONE (21:30)
[2017-09-23] MEDS ORDERED: VANCOMYCIN 1,000 MG in DEXTROSE 5%-WATER - 250 ML IVPB ONE (21:30)
[2017-09-23] MEDS ORDERED: DOCUSATE SODIUM 100 MG CAPSULE (FP) PO PRN (21:35)
[2017-09-23] MEDS ORDERED: ALBUTEROL SO4 2.5/IPRATROPIUM 0.5 INH SOL 3 ML VIAL.NEB. NEB PRN (21:37)
[2017-09-23] MEDS ORDERED: methylPREDNISolone NA SUCC 125 MG/2 ML VIAL IVPUSH ONE (21:39)
[2017-09-23 23:38] LABS: INR 3.46 (0.82-1.09); PROTHROMBIN TIME (PATIENT) 39.1 SEC (9.98-11.88)
[2017-09-24] MEDS ORDERED: PIPERACILLIN/TAZOB 4.5 GM 4.5 GM/100 ML BAG IVPB ONE ×3 (00:44→18:18)
[2017-09-24] MEDS ORDERED: VANCOMYCIN 1 GRAM (PRE-DOCKED) 1,000 MG/250 ML BAG IVPB ONE (00:45)
[2017-09-24] MEDS ORDERED: predniSONE 20 MG TABLET (UD) ONE (00:49)
[2017-09-24] MEDS ORDERED: GABAPENTIN 100 MG CAPSULE (FP) ONE (00:49)
[2017-09-24] MEDS ORDERED: methylPREDNISolone NA SUCC 125 MG/2 ML VIAL ONE (00:50)
[2017-09-24] MEDS ORDERED: MONTELUKAST NA 10 MG TABLET ONE (00:50)
[2017-09-24] MEDS: GABAPENTIN 100 MG CAPSULE (FP) PO SCH ×3 (00:54→22:04)
[2017-09-24] MEDS: MONTELUKAST NA 10 MG TABLET PO SCH ×2 (00:54→22:04)
[2017-09-24] MEDS ORDERED: ACETAMINOPHEN 325 MG TABLET (FP) PO ONE (02:11)
[2017-09-24] MEDS ORDERED: ACETAMINOPHEN 325 MG TABLET (FP) ONE (02:13)
[2017-09-24] MEDS ORDERED: methylPREDNISolone NA SUCC 40 MG/1 ML VIAL IVPUSH SCH (03:00)
[2017-09-24 03:23] LABS: URINE APPEARANCE TURBID; URINE BILIRUBIN NEGATIVE (NEGATIVE); URINE BLOOD NEGATIVE (NEGATIVE); URINE COLOR YELLOW; URINE GLUCOSE (UA) 1+ (NEGATIVE); URINE KETONE NEGATIVE (NEGATIVE); URINE NITRITE NEGATIVE (NEGATIVE); URINE UROBILINOGEN NEGATIVE mg/dL (0.2-1.0)
[2017-09-24] MEDS ORDERED: methylPREDNISolone NA SUCC 40 MG/1 ML VIAL ONE ×2 (03:30→18:18)
[2017-09-24 03:31] LABS: URINE LEUK ESTERASE 3+ (NEGATIVE); URINE PROTEIN 1+ (NEGATIVE)
[2017-09-24 03:34] LABS: AMORP URATES MANY /hpf (NONE SEEN); EPI CELLS MANY /HPF (FEW)
[2017-09-24] MEDS ORDERED: FUROSEMIDE 40 MG/4 ML INJECTABLE VIAL IVPUSH ONE (03:49)
--- NOTE | 2017-09-24 04:24 | FALL ---
Fall Exam - Event Witnessed fall: Yes Location of Fall: ED Fall from: Stretcher - Pre-Fall Fall Risk: High Risk Mental Status: Alert Current Medications: Current Medications Generic Name Dose Route Start Last Admin Trade Name Freq PRN Reason Stop Dose Admin Albuterol/Ipratropium 1 amp 09/23/17 21:37 Duoneb - NEB Q4H PRN SHORTNESS OF BREATH Allopurinol 100 mg 09/24/17 10:00 Zyloprim - PO DAILY [facility] Digoxin 0.125 mg 09/24/17 10:00 Lanoxin - PO DAILY [facility] Diltiazem HCl 180 mg 09/24/17 10:00 Cardizem Cd - PO DAILY [facility] Docusate Sodium 100 mg 09/23/17 21:35 Colace - PO BID PRN CONSTIPATION Furosemide 40 mg 09/24/17 03:49 Lasix Injection - IVPUSH 09/24/17 03:50 ONCE ONE Furosemide 40 mg 09/24/17 14:00 Lasix Injection - IVPUSH BID@0600,1400 [facility] Gabapentin 100 mg 09/23/17 22:00 09/24/17 00:54 Neurontin - PO 100 mg BID LYUDMILA Administration Glimepiride 2 mg 09/24/17 07:00 Amaryl - PO BIDAC [facility] Vancomycin HCl 1,000 mg/ 250 mls @ 200 mls/hr 09/23/17 21:15 Dextrose IVPB Q12H LYUDMILA Levothyroxine Sodium 50 mcg 09/24/17 07:00 Synthroid - PO DAILY@0700 [facility] Losartan Potassium 25 mg 09/24/17 10:00 Cozaar - PO DAILY [facility] Methylprednisolone Sodium Succinate 40 mg 09/24/17 03:00 09/24/17 03:15 Solu-Medrol - IVPUSH 40 mg Q6H-IV LYUDMILA Administration Montelukast Sodium 10 mg 09/23/17 22:00 09/24/17 00:54 Singulair - PO 10 mg HS LYUDMILA Administration Piperacillin/Tazobactam/Dextrose 4.5 gm 09/23/17 21:15 Zosyn 4.5gm Ivpb (Premix) IVPB Q6H-IV [facility] Tiotropium Gerber 1 puff 09/24/17 10:00 Spiriva - IH DAILY [facility] - Post-Fall Patient Outcome: Pain Only (left index finger) Exam Findings: Alert, Awake and Oriented. HEENT: Atraumatic, Normocephalic, Nontender. PERRL, EOM intact, conjunctiva clear. Nares patent, Supple, Midline. Oral Mucousa dry. Lungs- Coarse rhonchi, scattered wheeze. Treatment: Ice Pack Vital Signs: Vital Signs Temperature 98 F 09/23/17 13:30 Pulse Rate 94 H 09/24/17 02:05 Respiratory Rate 20 09/24/17 02:05 Blood Pressure 138/105 09/24/17 02:05 O2 Sat by Pulse Oximetry (%) 94 L 09/24/17 02:05 LOC Post-Fall: Unchanged Identify factors for HIGH RISK for Head Injury: Pt on anticoagulant
[2017-09-24] MEDS ORDERED: HEPARIN NA (PORCINE) 5,000 UNITS/ML 1ML VIAL SQ SCH (06:00)
[2017-09-24] MEDS ORDERED: LEVOTHYROXINE NA 25 MCG TABLET (FP) ONE (06:09)
[2017-09-24] MEDS ORDERED: GLIMEPIRIDE 4 MG TABLET (FP) ONE (06:10)
[2017-09-24] MEDS: GLIMEPIRIDE 2 MG TABLET (FP) PO SCH ×2 (06:29→16:43)
[2017-09-24] MEDS: LEVOTHYROXINE NA 50 MCG TABLET (FP) PO SCH (06:30)
[2017-09-24 07:56] LABS: BASO % 0.3 % (0-2.0); EOS % 0.2 % (0-4.5); HEMOGLOBIN 12.6 GM/dL (10.7-15.3); LYMPH % 5.2 % (8-40); MCH 25.2 pg (25.7-33.7); MCHC 30.6 g/dl (32.0-36.0); MEAN CELL VOLUME 82.3 fl (80-96); MEAN PLT VOLUME 7.7 fl (7.5-11.1); MONO % 1.4 % (3.8-10.2); NEUT % 92.9 % (42.8-82.8); PLATELET COUNT 311 K/MM3 (134-434); RBC 4.99 M/mm3 (3.60-5.2); RDW 19.5 % (11.6-15.6); WHITE BLOOD COUNT 8.8 K/mm3 (4.0-10.0)
[2017-09-24 08:19] LABS: ANION GAP 9 (8-16); CALCIUM 9.2 mg/dL (8.5-10.1); CHLORIDE 99 mmol/L (98-107); CO2 30 mmol/L (21-32); POTASSIUM 4.1 mmol/L (3.5-5.1); SODIUM 138 mmol/L (136-145)
[2017-09-24 08:39] LABS: BLOOD UREA NITROGEN 17 mg/dL (7-18); CREATININE 0.7 mg/dL (0.55-1.02); GLUCOSE,RANDOM 222 mg/dL (74-106)
--- NOTE | 2017-09-24 08:56 | PN ---
Progress Note (short form) - Note Progress Note: Patient seen and examined. patient was seen in the wound care Center yesterday with an O2 sat of 84 and wheezing and extreme shortness of breath. I advised her going to the emergency room when the nurse called me to see her. Workup in the emergency room revealed possible pulmonary infiltrate and congestive changes. She also has diabetes mellitus. She has oxygen at home but is not sure of her portable oxygen is working. She had recently been in an SNF after hospitalization and was walking in the hallway and much improved. However since she's been home she 's been sedentary and not moving around much. She has a great deal of left knee pain from severe DJD.Patient had a fall in the emergency room when trying to maneuver off the bed perdomo. CAT scan of the brain showed no acute changes. The patient told me yesterday that there was several days last week when her boiler at home broke and the temperature in her home was quite low. on exam: Vital Signs Temp 98 F 09/23/17 13:30 Pulse 68 09/24/17 16:28 Resp 18 09/24/17 16:28 BP 111/57 09/24/17 16:28 Pulse Ox 93 L 09/24/17 16:28 Intake & Output 09/23/17 09/24/17 09/24/17 23:59 11:59 23:59 Weight 200 lb 275 lb 15.982 oz Other: Height 5 ft 5 in 5 ft 5 in Body Mass Index (BMI) 33.3 45.9 Weight Measurement Method Estimated by Staff Weight Measurement Method Standing Scale Alert Chest still decreased breath sounds and fine wheezes bilaterally Heart irregular Pupils equal Abdomen: and is noted Extremities chronic stasis changes with no obvious pedal edema Recent amputation second toe right foot healed Old left heel scab dry with no ulcer Abnormal Lab Results 09/23/17 09/23/17 09/23/17 18:26 18:26 18:26 MCH MCHC 31.1 L RDW 20.0 H Neutrophils % Lymphocytes % Monocytes % PT with INR INR POC VBG pCO2 59.5 H Mixed VBG HCO3 32.2 H Carbon Dioxide 33 H Anion Gap 6 L Random Glucose 128 H Albumin 2.7 L Urine Protein Urine Glucose (UA) Ur Leukocyte Esterase Digoxin 09/23/17 09/24/17 09/24/17 22:52 03:00 06:00 MCH 25.2 L MCHC 30.6 L RDW 19.5 H Neutrophils % 92.9 H D Lymphocytes % 5.2 L D Monocytes % 1.4 L PT with INR 39.10 H INR 3.46 H D POC VBG pCO2 Mixed VBG HCO3 Carbon Dioxide Anion Gap Random Glucose Albumin Urine Protein 1+ H Urine Glucose (UA) 1+ H Ur Leukocyte Esterase 3+ H Digoxin 09/24/17 06:00 MCH MCHC RDW Neutrophils % Lymphocytes % Monocytes % PT with INR INR POC VBG pCO2 Mixed VBG HCO3 Carbon Dioxide Anion Gap Random Glucose 222 H D Albumin Urine Protein Urine Glucose (UA) Ur Leukocyte Esterase Digoxin 0.6502 L impression: Acute CHF Atrial fibrillation on Coumadin Possible pulmonary infiltrate Exacerbation of chronic bronchitis fall in emergency room Diabetes mellitus Morbid obesity Severe arthritis left knee Morbid obesity Plan: Pulmonary cardiology consultations Make arrangements with social service regarding portable O2 at home She says she feels more comfortable with a lift chair; we will see if we can have that arranged Followup lab and INR Coumadin held today because INR is over 3
--- NOTE | 2017-09-24 09:17 | CONSULT ---
Consultation: REQUESTING PROVIDER: CONSULT REQUEST: We have been asked to medically evaluate this patient for PNA. HISTORY OF PRESENT ILLNESS: 82 y/o F with PMH COPD (on home oxygen), afib (on coumadin), DM, chronic venous stasis, hx past wound cx with pseudomonas, klebsiella, enterococcus, MRSA, VRE, who was sent from Dr. Storey to the ED (after being seen for b/l heel ulcers ) for difficulty breathing. As per pt, she has felt increasingly SOB over past week, ever since the weather became colder. During this time, she endorsed productive cough with white sputum (w/o blood), which she could only loosen but hasn't been able to bring up. She has not noticed any change in her home 02 oxygen requirements. Denied ARREDONDO, fever, or changes in urinary or bowel function. Endorses chills but states that may have been d/t the cold weather. Pt states that she just finished a 10-day course of abx (Cefuroxime 500 mg BID) , since she had been SOB recently. While in ED, pt afebrile, without leukocytosis. CXR revealed consolidation in RLL possibly suggestive of atelectasis or PNA, pt received 1 dose of vanco and zosyn. ID Team consulted for PNA. REVIEW OF SYSTEMS: CONSTITUTIONAL: Absent: fever, chills, diaphoresis, generalized weakness, malaise, loss of appetite, weight change HEENT: Absent: rhinorrhea, nasal congestion, throat pain, throat swelling, difficulty swallowing, mouth swelling, ear pain, eye pain, visual changes CARDIOVASCULAR: Absent: chest pain, syncope, palpitations, irregular heart rate, lightheadedness , peripheral edema RESPIRATORY: +cough, SOB Absent: cough, shortness of breath, dyspnea with exertion, orthopnea, wheezing, stridor, hemoptysis GASTROINTESTINAL: Absent: abdominal pain, abdominal distension, nausea, vomiting, diarrhea, constipation, melena, hematochezia GENITOURINARY: Absent: dysuria, frequency, urgency, hesitancy, hematuria, flank pain, genital pain MUSCULOSKELETAL: Absent: myalgia, arthralgia, joint swelling, back pain, neck pain SKIN: Absent: rash, itching, pallor HEMATOLOGIC/IMMUNOLOGIC: Absent: easy bleeding, easy bruising, lymphadenopathy, frequent infections ENDOCRINE: Absent: unexplained weight gain, unexplained weight loss, heat intolerance, cold intolerance NEUROLOGIC: Absent: headache, focal weakness or paresthesias, dizziness, unsteady gait, seizure, mental status changes, bladder or bowel incontinence PSYCHIATRIC: Absent: anxiety, depression, suicidal or homicidal ideation, hallucinations. PHYSICAL EXAMINATION Vital Signs 09/24/17 09/24/17 03:35 07:01 Temperature Pulse Rate Pulse Rate [ 85 94 H Apical] Respiratory 18 16 Rate Blood Pressure Blood Pressure 128/79 132/61 [Left Arm] O2 Sat by Pulse 95 95 Oximetry (%) GENERAL: Sitting up in wheelchair. AAOx3, in NAD. HEAD: Normal with no signs of trauma. EYES: Pupils equal, round and reactive to light, extraocular movements intact, sclera anicteric, conjunctiva clear. EARS, NOSE, THROAT: Ears normal, nares patent, oropharynx clear without exudates. NECK: Normal range of motion, supple LUNGS: wheezes and crackles appreciated b/l lung bases. without accessory m. usage HEART: Regular rate and rhythm, normal S1 and S2 without murmur, rub or gallop. ABDOMEN: Soft, obese, nontender, distended, normoactive bowel sounds, no guarding, no rebound LOWER EXTREMITIES: 2+ posterior tibial pulses, chronic venous stasis changes. Pitting edema 2+ b/l. 2nd toe amputation LLE NEUROLOGICAL: Cranial nerves II-XII intact. Laboratory Results 09/24/17 09/24/17 09/24/17 03:00 06:00 06:00 WBC 8.8 Hgb 12.6 Hct 41.0 Plt Count 311 Sodium 138 Potassium 4.1 Chloride 99 Carbon Dioxide 30 BUN 17 Creatinine 0.7 Random Glucose 222 H D Urine Protein 1+ H Urine Glucose (UA) 1+ H Ur Leukocyte Esterase 3+ H Urine WBC (Auto) 86 Digoxin 0.6502 L Active Medications Generic Name Dose Route Start Last Admin Trade Name Freq PRN Reason Stop Dose Admin Albuterol/Ipratropium 1 amp 09/23/17 21:37 Duoneb - NEB Q4H PRN SHORTNESS OF BREATH Allopurinol 100 mg 09/24/17 10:00 Zyloprim - PO DAILY LYUDMILA Digoxin 0.125 mg 09/24/17 10:00 Lanoxin - PO DAILY LYUDMILA Diltiazem HCl 180 mg 09/24/17 10:00 Cardizem Cd - PO DAILY LYUDMILA Docusate Sodium 100 mg 09/23/17 21:35 Colace - PO BID PRN CONSTIPATION Furosemide 40 mg 09/24/17 03:49 09/24/17 04:29 Lasix Injection - IVPUSH 09/24/17 03:50 40 mg ONCE ONE Administration Furosemide 40 mg 09/24/17 14:00 Lasix Injection - IVPUSH BID@0600,1400 LYUDMILA Gabapentin 100 mg 09/23/17 22:00 09/24/17 00:54 Neurontin - PO 100 mg BID LYUDMILA Administration Glimepiride 2 mg 09/24/17 07:00 09/24/17 06:29 Amaryl - PO 2 mg BIDAC LYUDMILA Administration Vancomycin HCl 1,000 mg/ 250 mls @ 200 mls/hr 09/23/17 21:15 Dextrose IVPB Q12H LYUDMILA Levothyroxine Sodium 50 mcg 09/24/17 07:00 09/24/17 06:30 Synthroid - PO 50 mcg DAILY@0700 LYUDMILA Administration Losartan Potassium 25 mg 09/24/17 10:00 Cozaar - PO DAILY [facility] Methylprednisolone Sodium Succinate 40 mg 09/24/17 03:00 09/24/17 03:15 Solu-Medrol - IVPUSH 09/24/17 15:00 40 mg Q6H-IV LYUDMILA Administration Montelukast Sodium 10 mg 09/23/17 22:00 09/24/17 00:54 Singulair - PO 10 mg HS LYUDMILA Administration Piperacillin/Tazobactam/Dextrose 4.5 gm 09/23/17 21:15 Zosyn 4.5gm Ivpb (Premix) IVPB Q6H-IV LYUDMILA Tiotropium [place] 1 puff 09/24/17 10:00 Spiriva - IH DAILY [facility] Microbiology -Urine cx: pending -Blood cx: pending -Urine for Legionella Ag, strep pneumo: (-) -Sputum cx: to be sent ASSESSMENT/PLAN: #PNA -may be HAP as pt has been in and out of hospital frequently -has hx past wound cx with pseudomonas, klebsiella, enterococcus, MRSA, VRE -currently afebrile, without leukocytosis -CXR: consolidation RLL, small pleural effusions (R>L) -received 1 dose vanco, zosyn in ED -to continue on zosyn 4.5gm IVPB q8h -Started on zithromax 500mg PO qd -Urine for legionella Ag, strep pneumo (-) -F/u sputum, blood, urine cx Thank you Camille Concepcion MD PGY-1 ID Team Dispo: We will continue to follow the patient. Thank you for this consultative opportunity. Visit type - Emergency Visit Emergency Visit: Yes ED Registration Date: 09/23/17 Care time: The patient presented to the Emergency Department on the above date and was hospitalized for further evaluation of their emergent condition. - New Patient This patient is new to me today: Yes Date on this admission: 09/24/17 - Critical Care Critical Care patient: No
--- NOTE | 2017-09-24 09:31 | EKG ---
Test Reason : Blood Pressure : / mmHG Vent. Rate : 076 BPM Atrial Rate : 159 BPM P-R Int : 000 ms QRS Dur : 128 ms QT Int : 384 ms P-R-T Axes : 000 079 -04 degrees QTc Int : 432 ms ATRIAL FIBRILLATION RIGHT BUNDLE BRANCH BLOCK ABNORMAL ECG WHEN COMPARED WITH ECG OF 20-JUL-2017 03:17, INVERTED T WAVES HAVE REPLACED NONSPECIFIC T WAVE ABNORMALITY IN INFERIOR LEADS Confirmed by RAISA CHAUDHARI, PAPA ([id number]) on 09/24/2017 9:31:20 AM Referred By: Confirmed By:PAPA KLINE MD
[2017-09-24] MEDS ORDERED: AZITHROMYCIN 250 MG TABLET ONE (11:58)
[2017-09-24] MEDS: PIPERACILLIN/TAZOB 4.5 GM 4.5 GM/100 ML BAG IVPB SCH ×2 (12:08→19:20)
[2017-09-24] MEDS: LOSARTAN POTASSIUM 25 MG TABLET PO SCH (12:08)
[2017-09-24] MEDS: TIOTROPIUM BROMIDE 18 MCG/INH (DEVICE W/ 5 CAPSULES) IH SCH (12:08)
[2017-09-24] MEDS: DIGOXIN 0.125 MG TABLET (FP) PO SCH (12:08)
[2017-09-24] MEDS: ALLOPURINOL 100 MG TABLET (FP) PO SCH (12:08)
[2017-09-24] MEDS: AZITHROMYCIN 500 MG TABLET PO SCH (12:08)
[2017-09-24] MEDS: VANCOMYCIN 1,000 MG in DEXTROSE 5%-WATER - 250 ML IVPB SCH ×2 (12:09→12:29)
--- NOTE | 2017-09-24 14:10 | CON.CARD ---
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 - History Source History Provided By: Patient Limitations to Obtaining History: No Limitations - Past Medical History Cardio/Vascular: Yes: AFIB, CHF, Deep Vein Thrombosis, HTN, Hyperlipdemia Pulmonary: Yes: Asthma, COPD, O2 Dependent Gastrointestinal: Yes: Hiatal Hernia Infectious Disease: Yes: MRSA, VREF Musculoskeletal: Yes: Osteoarthritis Endocrine: Yes: Diabetes Mellitus, Hypothyroidism Dermatology: Yes: Cellulitis, Eczema - Past Surgical History Past Surgical History: Yes: Appendectomy, Cholecystectomy, Hernia Repair (times three), Oopherectomy, Tonsillectomy - Alcohol/Substance Use Hx Alcohol Use: No History of Substance Use: reports: None - Smoking History Smoking history: Never smoked Have you smoked in the past 12 months: No Aproximately how many cigarettes per day: 0 If you are a former smoker, when did you quit?: 2007 - Social History Usual Living Arrangement: Alone ADL: Independent History of Recent Travel: No Home Medications - Allergies Allergies/Adverse Reactions: Allergies Allergy/AdvReac Type Severity Reaction Status Date / Time No Known Allergies Allergy Verified 09/23/17 13:32 - Home Medications Home Medications: Ambulatory Orders Albuterol Sulfate Inhaler - [Ventolin HFA Inhaler -] 2 inh IH Q6H PRN #0 inh 04/27 Allopurinol [Zyloprim -] 100 mg PO DAILY #0 tablet 06/22/13 Diltiazem Cd [Cardizem Cd -] 180 mg PO DAILY #0 cap.cd.24h 06/22/13 Montelukast Na [Singulair -] 10 mg PO HS #0 tablet 06/22/13 Acetaminophen [Tylenol .Regular Strength -] 650 mg PO Q6H PRN #240 tablet Furosemide [Lasix -] 40 mg PO BID 03/02/14 Levothyroxine [Synthroid -] 50 mcg PO DAILY 03/02/14 Glimepiride [Amaryl] 2 mg PO BID 08/07/14 Docusate Sodium [Colace -] 100 mg PO BID PRN #0 cap 04/29/17 Potassium Chloride [K-Dur -] 20 meq PO TID tab 04/29/17 Gabapentin [Neurontin -] 100 mg PO BID #60 cap 05/28/17 Losartan Potassium [Cozaar -] 25 mg PO DAILY #30 tablet 05/28/17 Warfarin Na [Coumadin -] 4 mg PO DAILY@1800 tablet 05/28/17 Insulin Sliding Scale [Novolog Vial Sliding Scale -] 1 vial SQ TIDAC units Digoxin [Lanoxin -] 0.125 mg PO DAILY 09/24/17 Oxycodone HCl/Acetaminophen [Percocet 5-325 mg Tablet] 1 tab PO Q4H PRN Pantoprazole Sodium [Protonix] 40 mg PO DAILY 09/24/17 Prednisone [Deltasone] 40 mg PO DAILY 09/24/17 Prednisone [Deltasone] 40 mg PO DAILY 09/24/17 Family Disease History - Family Disease History Family Disease History: Heart Disease: Mother ([place]), Other: Father (ETOH cirrhosis), Sister (alive and well) Review of Systems - Review of Systems Respiratory: reports: Cough, SOB on Exertion Vital Signs: Vital Signs Temperature 98 F 09/23/17 13:30 Pulse Rate 72 09/24/17 12:31 Respiratory Rate 18 09/24/17 12:31 Blood Pressure 130/82 09/24/17 12:31 O2 Sat by Pulse Oximetry (%) 98 09/24/17 12:31 Constitutional: Yes: No Distress, Calm Neck: Yes: Supple Respiratory: Yes: Regular, Diminished, On Nasal O2 Gastrointestinal: Yes: Normal Bowel Sounds, Soft, Abdomen, Obese Cardiovascular: Yes: Regular Rate and Rhythm JVD: No Carotid Bruit: No Heart Sounds: Yes: S1, S2 Murmur: Yes: Systolic Murmur, Grade 1 Edema: Yes Edema: LLE: 1+, RLE: 1+ Integumentary: Yes: Venous Stasis Changes - Other Data Labs, Other Data: CBC, BMP 09/24/17 06:00 09/24/17 06:00 INR, PTT INR 3.46 (0.82-1.09) H D 09/23/17 22:52 Afib @ 76 RBBB Ejection Fraction %: LVEF > or = 40 % Imaging - Results Chest X-ray: Report Reviewed (CHF, right>left effusion) Problem List - Problems (1) Acute on chronic diastolic (congestive) heart failure Code(s): I50.33 - ACUTE ON CHRONIC DIASTOLIC (CONGESTIVE) HEART FAILURE (2) Acute on chronic respiratory failure with hypoxia and hypercapnia Code(s): J96.21 - ACUTE AND CHRONIC RESPIRATORY FAILURE WITH HYPOXIA; J96.22 - ACUTE AND CHRONIC RESPIRATORY FAILURE WITH HYPERCAPNIA (3) COPD (chronic obstructive pulmonary disease) Code(s): J44.9 - CHRONIC OBSTRUCTIVE PULMONARY DISEASE, UNSPECIFIED Qualifiers: COPD type: unspecified COPD Qualified Code(s): J44.9 - Chronic obstructive pulmonary disease, unspecified (4) Pneumonia Code(s): J18.9 - PNEUMONIA, UNSPECIFIED ORGANISM Qualifiers: Pneumonia type: due to unspecified organism (5) Atrial fibrillation Code(s): I48.91 - UNSPECIFIED ATRIAL FIBRILLATION Qualifiers: Atrial fibrillation type: chronic Qualified Code(s): I48.2 - Chronic atrial fibrillation (6) Chronic venous stasis dermatitis of both lower extremities Code(s): I87.2 - VENOUS INSUFFICIENCY (CHRONIC) (PERIPHERAL) (7) Diabetes Code(s): E11.9 - TYPE 2 DIABETES MELLITUS WITHOUT COMPLICATIONS Qualifiers: Diabetes mellitus type: type 2 Diabetes mellitus complication status: with hyperglycemia Diabetes mellitus terminal gauger supervisor insulin use: without terminal gauger supervisor use Qualified Code(s): E11.65 - Type 2 diabetes mellitus with hyperglycemia (8) HTN (hypertension) Code(s): I10 - ESSENTIAL (PRIMARY) HYPERTENSION Qualifiers: Hypertension type: essential hypertension Qualified Code(s): I10 - Essential (primary) hypertension (9) Morbid obesity with BMI of 45.0-49.9, adult Code(s): E66.01 - MORBID (SEVERE) OBESITY DUE TO EXCESS CALORIES; Z68.42 - BODY MASS INDEX (BMI) 45.0-49.9, ADULT (10) Hypothyroidism Code(s): E03.9 - HYPOTHYROIDISM, UNSPECIFIED (11) Chronic anticoagulation Code(s): Z79.01 - INTERMEDIATE (CURRENT) USE OF ANTICOAGULANTS Assessment/Plan 1. Acute on chronic hypoxemic respiratory failure 2. CAD angina pectoris, stable 3. Acute on chronic diastolic heart failure 4. Permanent atrial fibrillation [id number] score of 7 on coumadin with supratherapeutic INR 5. HTN/hypertensive cardiovascular disease 6. Type 2 DM 7. Hypothyroidism 8. COPD, ?RLL PNA 9. History of DVT 10. Chronic venous stasis PLAN: 1. Continue Cardizem CD 180 qd and losartan 25 qd 2. Continue Digoxin 0.125 qd with caution and close monitoring of Digoxin level 3. IV diuresis with monitor diuretic response, renal function and electrolytes 4. Continue dose Coumadin per INR 2-3 5. IV steroids with GI protection, empiric abx course per ID, BD, O2 as needed, f/u ABG and CXR 6. Thank you for consultative opportunity
[2017-09-24] MEDS: FUROSEMIDE 40 MG/4 ML INJECTABLE VIAL IVPUSH SCH (14:23)
--- NOTE | 2017-09-24 16:10 | PN ---
Progress Note (short form) - Note Progress Note: PULMONARY CONSULTATION DICTATED 09/24/17 IMP ACUTE ON CHRONIC HYPOXEMIC RESPIRATORY FAILURE COPD CHF ASHD ? RLL PNEUMONIA AFIB DM H/O DVT HYPOTHYROID PLAN IV STEROIDS ANTIBIOTICS PER ID LASIX INHALED BRONCHODILATORS O2 F/U CHEST X-RAY MONITOR INRS DAILY WTS ABGS DR DANIELS Problem List - Problems (1) Acute on chronic respiratory failure with hypoxia and hypercapnia Code(s): J96.21 - ACUTE AND CHRONIC RESPIRATORY FAILURE WITH HYPOXIA; J96.22 - ACUTE AND CHRONIC RESPIRATORY FAILURE WITH HYPERCAPNIA (2) COPD (chronic obstructive pulmonary disease) Code(s): J44.9 - CHRONIC OBSTRUCTIVE PULMONARY DISEASE, UNSPECIFIED (3) DVT prophylaxis Code(s): [id number] - (4) Pneumonia Code(s): J18.9 - PNEUMONIA, UNSPECIFIED ORGANISM (5) Acute respiratory distress Code(s): J80 - ACUTE RESPIRATORY DISTRESS SYNDROME (6) Atrial fibrillation Code(s): I48.91 - UNSPECIFIED ATRIAL FIBRILLATION Qualifiers: Atrial fibrillation type: chronic Qualified Code(s): I48.2 - Chronic atrial fibrillation (7) CHF (congestive heart failure) Code(s): I50.9 - HEART FAILURE, UNSPECIFIED Qualifiers: Congestive heart failure type: diastolic Congestive heart failure chronicity: chronic Qualified Code(s): I50.32 - Chronic diastolic (congestive ) heart failure (8) COPD with acute exacerbation Code(s): J44.1 - CHRONIC OBSTRUCTIVE PULMONARY DISEASE W (ACUTE) EXACERBATION (9) Chronic venous stasis dermatitis of both lower extremities Code(s): I87.2 - VENOUS INSUFFICIENCY (CHRONIC) (PERIPHERAL) (10) Diabetes Code(s): E11.9 - TYPE 2 DIABETES MELLITUS WITHOUT COMPLICATIONS Qualifiers: Diabetes mellitus type: type 2 Diabetes mellitus complication status: with hyperglycemia Diabetes mellitus terminal block assembler insulin use: without fdc use Qualified Code(s): E11.65 - Type 2 diabetes mellitus with hyperglycemia (11) Hypoxia Code(s): R09.02 - HYPOXEMIA
[2017-09-24 17:48] VITALS: BMI 45.9
[2017-09-24] MEDS: methylPREDNISolone NA SUCC 40 MG/1 ML VIAL IVPUSH SCH (18:22)
--- NOTE | 2017-09-24 18:42 | CONS ---
DATE OF CONSULTATION: 09/24/2017 PULMONARY CONSULTATION REFERRING PHYSICIAN: Navin Garcia M.D. HISTORY OF PRESENT ILLNESS: The patient is an 82-year-old white female with no history of previous hospitalization in the past with advanced COPD on home O2, congestive heart failure, atrial fibrillation maintained on Coumadin, hypertension, hyperlipidemia, non-insulin dependent diabetes mellitus, hypothyroidism, diabetic foot ulcers, maintained on wound care, history of DVT, hyperlipidemia, hiatal hernia, osteoarthritis, diabetes, admitted to [facility] with complaint of increasing shortness of breath for approximately 1 week. Patient states the day prior to , she started developing cough and congestion. She called her PMD a couple days later and was started on antibiotics which she was unsure of the name. Started having increasing wheezing, shortness of breath. She presented to the emergency room with the above. Patient denies any complaint of chest pain, nausea, vomiting, diaphoresis. Denies hemoptysis, nausea, fevers, chills. Patient presented to the emergency room with the above. In the ER, she was started on inhaled bronchodilators, supplemental O2 and steroids with good clinical response. Patient has history of tobacco use since early teens and stopped smoking approximately 2007. She denies any history of occupational exposure to chemicals or fumes. There is no history of recent travel. PAST MEDICAL HISTORY: Again includes COPD, O2 dependency, CHF, atrial fibrillation, hypertension, hyperlipidemia, non-insulin dependent diabetes mellitus, hypothyroidism, diabetic foot ulcers, DVT. MEDICATIONS: Medications prior to admission include albuterol, Zyloprim, Cardizem, Singulair, Spiriva, Lasix, Synthroid, Amaryl, Colace, Miralax, K-Dur, Cozaar, Coumadin, , Novolog, oxycodone cream, and prednisone 40 mg, antibiotics she was prescribed was ceftriaxone 500 mg b.i.d. for 10 days. Current medications include Cozaar, Zithromax, piperacillin, Neurontin, Zyloprim, Spiriva, DuoNeb, Cardizem, Lanoxin, Colace, Singulair, and Lasix, Amaryl, and Synthroid. REVIEW OF SYSTEMS: Positive orthopnea. Positive dyspnea. Positive cough. No chest pain. No palpitations. No abdominal pain. Positive chronic lower extremity stasis changes. PHYSICAL EXAMINATION: General: The patient is an obese female, awake, alert, mildly dyspneic, in no acute distress. Vital signs: Blood pressure 130/82, respiratory rate 18, O2 saturation is 98% on 4 L nasal cannula. HEENT: Head is normocephalic, atraumatic. Neck: Supple. Heart: Irregular. S1, S2. Chest: Bilateral wheezes. Abdomen: Soft. Bowel sounds positive. Extremities: Chronic stasis changes bilaterally. LABORATORY: WBC is 8.8, hemoglobin 12.6, hematocrit 41, platelet count of 311,000. INR 3.46. Venous blood gas: pH 7.35, pCO2 of 59, pO2 of 46, bicarbonate 32. BUN is 17, creatinine 0.7. Chest x-ray reveals small bilateral effusions and possible right lower lobe consolidation. Head CT reveals an opacified left maxillary sinus, chronic deformity posterior oral intact roof of the orbit. CT brain no evidence of hydrocephalus, acute hemorrhage or acute CVA. No acute process. IMPRESSION: 1. [id number] hypoxemia, hypercapnic respiratory failure. 2. Chronic obstructive pulmonary disease exacerbation. 3. Congestive heart failure. 4. Pneumonia. 5. Atrial fibrillation. 6. History of deep vein thrombosis. 7. Hypertension. PLAN: IV antibiotics. Supplemental O2. Inhaled bronchodilators. Lasix. Daily weights. CT scan of chest. Short course of IV steroids. Supplemental O2. Check arterial blood gases. GWENDOLYN DANIELS M.D. OSMIN/[id number]
[2017-09-24 19:28] LABS: ARTERIAL BLD GAS O2 SATURATION 93.4 % (90-98.9); ARTERIAL BLOOD GAS BASE EXCESS 5.2 meq/l (-2-2); ARTERIAL BLOOD GAS PCO2 50.4 mmHg (35-45); ARTERIAL BLOOD GAS PO2 69.4 mmHg (68-100)
[2017-09-24 19:45] LABS: ALLENS TEST POSITIVE
[2017-09-24] MEDS ORDERED: PANTOPRAZOLE 40 MG TABLET (FP) ONE (20:59)
[2017-09-24] MEDS: PANTOPRAZOLE 40 MG TABLET (FP) PO SCH (21:06)
[2017-09-24] MEDS: ARFORMOTEROL TARTRATE 15 MCG/2 ML VIAL NEB SCH (21:06)
--- NOTE | 2017-09-24 21:31 | PN ---
Teaching Attending Note Name of Resident: Camille Concepcion ATTENDING PHYSICIAN STATEMENT I saw and evaluated the patient. I reviewed the resident's note and discussed the case with the resident. I agree with the resident's findings and plan as documented. SUBJECTIVE: OBJECTIVE: ASSESSMENT AND PLAN: Exacerbation COPD Possible RLL pneumonia Chronic venous stasis dermatitis Morbid obesity Pending cultures, empiric zosyn/zithromax Bronchodilators, steroids
[2017-09-25] MEDS ORDERED: PIPERACILLIN/TAZOB 4.5 GM 4.5 GM/100 ML BAG IVPB ONE (02:24)
[2017-09-25] MEDS ORDERED: methylPREDNISolone NA SUCC 40 MG/1 ML VIAL ONE (02:24)
[2017-09-25] MEDS: PIPERACILLIN/TAZOB 4.5 GM 4.5 GM/100 ML BAG IVPB SCH ×3 (02:45→18:36)
[2017-09-25] MEDS: methylPREDNISolone NA SUCC 40 MG/1 ML VIAL IVPUSH SCH ×3 (02:45→17:48)
[2017-09-25] MEDS ORDERED: ACETAMINOPHEN 325 MG TABLET (FP) PO ONE (05:50)
[2017-09-25] MEDS ORDERED: ACETAMINOPHEN 325 MG TABLET (FP) ONE (05:51)
[2017-09-25] MEDS: FUROSEMIDE 40 MG/4 ML INJECTABLE VIAL IVPUSH SCH ×2 (06:50→13:48)
[2017-09-25] MEDS ORDERED: FUROSEMIDE 40 MG/4 ML INJECTABLE VIAL ONE (06:57)
[2017-09-25 06:59] LABS: BASO % 0.1 % (0-2.0); HEMATOCRIT 38.9 % (32.4-45.2); HEMOGLOBIN 12.2 GM/dL (10.7-15.3); LYMPH % 6.7 % (8-40); MCH 25.8 pg (25.7-33.7); MCHC 31.4 g/dl (32.0-36.0); MEAN PLT VOLUME 7.9 fl (7.5-11.1); MONO % 2.7 % (3.8-10.2); NEUT % 90.5 % (42.8-82.8); PLATELET COUNT 341 K/MM3 (134-434); RBC 4.74 M/mm3 (3.60-5.2); RDW 19.4 % (11.6-15.6); WHITE BLOOD COUNT 7.2 K/mm3 (4.0-10.0)
[2017-09-25] MEDS: GLIMEPIRIDE 2 MG TABLET (FP) PO SCH ×2 (07:05→16:30)
[2017-09-25] MEDS: LEVOTHYROXINE NA 50 MCG TABLET (FP) PO SCH (07:05)
[2017-09-25 07:13] LABS: INR 3.09 (0.82-1.09); PROTHROMBIN TIME (PATIENT) 34.9 SEC (9.98-11.88)
[2017-09-25 07:53] LABS: ANION GAP 6 (8-16); BLOOD UREA NITROGEN 28 mg/dL (7-18); CALCIUM 8.8 mg/dL (8.5-10.1); CHLORIDE 99 mmol/L (98-107); CO2 31 mmol/L (21-32); GLUCOSE,RANDOM 295 mg/dL (74-106); POTASSIUM 3.9 mmol/L (3.5-5.1); SODIUM 136 mmol/L (136-145)
[2017-09-25 07:54] LABS: CREATININE 0.9 mg/dL (0.55-1.02)
[2017-09-25] MEDS: ARFORMOTEROL TARTRATE 15 MCG/2 ML VIAL NEB SCH ×2 (08:02→20:59)
--- NOTE | 2017-09-25 08:47 | PN ---
Progress Note (short form) - Note Progress Note: Patient still in ER due to lack of hospital rooms. Was confused when she woke up this AM but I think being in the ER for 48 hrs was a factor. Patient seen by Pulmonary, Cardiology and ID MD's. Still some SOB on movement No chest pain Nocturia; no dysuria no nausea On Exam: Vital Signs Temp 97.4 F L 09/25/17 07:02 Pulse 78 09/25/17 07:02 Resp 20 09/25/17 02:46 BP 140/70 09/25/17 07:02 Pulse Ox 95 09/25/17 07:02 Intake & Output 09/24/17 09/24/17 09/25/17 11:59 23:59 11:59 Weight 275 lb 15.982 oz Other: Height 5 ft 5 in Body Mass Index (BMI) 45.9 Weight Measurement Method Estimated by Staff Alert Chest: some fine wheezes and decreased breath sounds Cor: Irreg Abdominal Pannus Ext: Chronic status Abnormal Lab Results 09/24/17 09/24/17 09/25/17 06:00 19:15 06:19 MCHC 31.4 L RDW 19.4 H Neutrophils % 90.5 H Lymphocytes % 6.7 L D Monocytes % 2.7 L D PT with INR INR ABG pCO2 at Pt Temp 50.4 H ABG HCO3 30.8 H ABG Base Excess 5.2 H Anion Gap BUN Random Glucose Digoxin 0.6502 L 09/25/17 09/25/17 06:19 06:19 MCHC RDW Neutrophils % Lymphocytes % Monocytes % PT with INR 34.90 H INR 3.09 H ABG pCO2 at Pt Temp ABG HCO3 ABG Base Excess Anion Gap 6 L BUN 28 H D Random Glucose 295 H D Digoxin IMP: Acute Exacerbation of COPD Possible Pneumonia A. Fibrillation on Coumadin Morbid Obesity Possible UTI Acute on Chronic CHF Recent Toe Amputation Right Foot Plan: No coumadin today F/U Lab F/U CXR F/U Consultants
[2017-09-25] MEDS: GABAPENTIN 100 MG CAPSULE (FP) PO SCH ×2 (09:14→23:00)
[2017-09-25] MEDS: DIGOXIN 0.125 MG TABLET (FP) PO SCH (09:15)
[2017-09-25] MEDS: LOSARTAN POTASSIUM 25 MG TABLET PO SCH (09:15)
[2017-09-25] MEDS: AZITHROMYCIN 500 MG TABLET PO SCH (09:16)
[2017-09-25] MEDS: ALLOPURINOL 100 MG TABLET (FP) PO SCH (09:16)
[2017-09-25] MEDS: TIOTROPIUM BROMIDE 18 MCG/INH (DEVICE W/ 5 CAPSULES) IH SCH (09:16)
[2017-09-25] MEDS: PANTOPRAZOLE 40 MG TABLET (FP) PO SCH (09:19)
[2017-09-25] MEDS: ALBUTEROL SO4 0.083% IH SOL 2.5 MG/3 ML VIAL.NEB. NEB PRN (10:00)
--- NOTE | 2017-09-25 11:20 | PN ---
Physical Exam: SUBJECTIVE: Patient seen and examined in ED. States that she is very tired since she is still in the ED. Was not able to sleep last night. Endorses SOB on exertion, as well as productive cough which she is unable to cough up. Otherwise , denies ARREDONDO, fever, chills, or changes in urinary or bowel function. Otherwise, pt without acute events overnight- afebrile. OBJECTIVE: Vital Signs Period Temp Pulse Resp BP Sys/Luke Pulse Ox Last 24 Hr 97.4 F 68-88 18-20 111-140/57-82 92-98 GENERAL: The patient is sitting up in bed. Tired, but AAOx3. in no acute distress. HEAD: Normal with no signs of trauma. EYES: PERRL, extraocular movements intact, sclera anicteric, conjunctiva clear. NECK: Trachea midline, supple. LUNGS: wheezing appreciated b/l. otherwise without accessory m. usage. HEART: Regular rate and rhythm, S1, S2 without murmur, rub or gallop. ABDOMEN: Soft, obese, nontender, nondistended EXTREMITIES: 2+ posterior tibial pulses, 2+ pitting edema b/l. NEUROLOGICAL: Cranial nerves II through XII grossly intact. Laboratory Tests 09/25/17 09/25/17 06:19 06:19 WBC 7.2 RBC 4.74 Hgb 12.2 Hct 38.9 Plt Count 341 Sodium 136 Potassium 3.9 Carbon Dioxide 31 Anion Gap 6 L BUN 28 H D Creatinine 0.9 D Random Glucose 295 H D Microbiology 09/24/17 03:00 Urine For Antigen Detection Legionella Antigen - Final 09/24/17 03:00 Urine For Antigen Detection Streptococcus pneumoniae Antigen (M - Final 09/24/17 03:00 Urine - Urine Clean Catch Urine Culture - Final Yeast Like Organism 09/23/17 18:26 Blood - Peripheral Venous Blood Culture - Preliminary NO GROWTH OBTAINED AFTER 24 HOURS, INCUBATION TO CONTINUE FOR 4 DAYS. 09/23/17 18:26 Blood - Peripheral Venous Blood Culture - Preliminary NO GROWTH OBTAINED AFTER 24 HOURS, INCUBATION TO CONTINUE FOR 4 DAYS. Active Medications Generic Name Dose Route Start Last Admin Trade Name Freq PRN Reason Stop Dose Admin Albuterol Sulfate 1 amp 09/24/17 16:16 09/25/17 10:00 Ventolin 0.083% Nebulizer Soln - NEB 1 amp Q4H PRN Administration SHORT OF BREATH/WHEEZING Allopurinol 100 mg 09/24/17 10:00 09/25/17 09:16 Zyloprim - PO 100 mg DAILY LYUDMILA Administration Arformoterol Tartrate 1 amp 09/24/17 20:00 09/25/17 08:02 Brovana (Restricted To Pulmonology/Resp) - NEB 1 amp RBID LYUDMILA Administration Azithromycin 500 mg 09/24/17 11:30 09/25/17 09:16 Azithromycin PO 09/26/17 10:01 500 mg DAILY LYUDMILA Administration Digoxin 0.125 mg 09/24/17 10:00 09/25/17 09:15 Lanoxin - PO 0.125 mg DAILY LYUDMILA Administration Diltiazem HCl 180 mg 09/24/17 10:00 09/25/17 09:15 Cardizem Cd - PO 180 mg DAILY LYUDMILA Administration Docusate Sodium 100 mg 09/23/17 21:35 Colace - PO BID PRN CONSTIPATION Furosemide 40 mg 09/24/17 14:00 09/25/17 06:50 Lasix Injection - IVPUSH 40 mg BID@0600,1400 LYUDMILA Administration Gabapentin 100 mg 09/23/17 22:00 09/25/17 09:14 Neurontin - PO 100 mg BID LYUDMILA Administration Glimepiride 2 mg 09/24/17 07:00 09/25/17 07:05 Amaryl - PO 2 mg BIDAC LYUDMILA Administration Piperacillin/Tazobactam/Dextrose 4.5 gm in 100 mls @ 200 mls/hr 09/24/17 11: 30 09/25/17 10:00 Zosyn 4.5gm Ivpb (Premix) IVPB 200 mls/hr Q8H-IV LYUDMILA Administration Protocol Levothyroxine Sodium 50 mcg 09/24/17 07:00 09/25/17 07:05 Synthroid - PO 50 mcg DAILY@0700 LYUDMILA Administration Losartan Potassium 25 mg 09/24/17 10:00 09/25/17 09:15 Cozaar - PO 25 mg DAILY LYUDMILA Administration Methylprednisolone Sodium Succinate 40 mg 09/24/17 18:00 09/25/17 09:18 Solu-Medrol - IVPUSH 40 mg Q8H-IV LYUDMILA Administration Montelukast Sodium 10 mg 09/23/17 22:00 09/24/17 22:04 Singulair - PO 10 mg HS LYUDMILA Administration Pantoprazole Sodium 40 mg 09/24/17 18:45 09/25/17 09:19 Protonix - PO 40 mg DAILY LYUDMILA Administration Tiotropium Walker 1 puff 09/24/17 10:00 09/25/17 09:16 Spiriva - IH Not Given DAILY LYUDMILA ASSESSMENT/PLAN: #PNA -currently afebrile, without leukocytosis -continue zosyn 4.5gm IVPB q8h (Day 2) -zithromax 500mg PO qd (Day2) -Ucx: yeast like organism, most likely contaminant - no need to tx currently. -Urine for legionella Ag, strep pneumo (-) -F/u sputum, blood cx Thank you Camille Concepcion MD PGY-1 ID Team Visit type - Emergency Visit Emergency Visit: No - New Patient This patient is new to me today: No - Critical Care Critical Care patient: No
[2017-09-25] MEDS ORDERED: ALBUTEROL SO4 0.083% IH SOL 2.5 MG/3 ML VIAL.NEB. NEB ONE (12:11)
--- NOTE | 2017-09-25 12:54 | PN ---
Progress Note, Physician History of Present Illness: Dyspnea and non-productive cough slowly improving. - Current Medication List Current Medications: Active Medications Albuterol Sulfate (Ventolin 0.083% Nebulizer Soln -) 1 amp NEB Q4H PRN PRN Reason: SHORT OF BREATH/WHEEZING Last Admin: 09/25/17 10:00 Dose: 1 amp Allopurinol (Zyloprim -) 100 mg PO DAILY [facility] Last Admin: 09/25/17 09:16 Dose: 100 mg Arformoterol Tartrate (Brovana (Restricted To Pulmonology/Resp) -) 1 amp NEB RBID [facility] Last Admin: 09/25/17 08:02 Dose: 1 amp Azithromycin (Azithromycin) 500 mg PO DAILY [facility] Stop: 09/26/17 10:01 Last Admin: 09/25/17 09:16 Dose: 500 mg Digoxin (Lanoxin -) 0.125 mg PO DAILY [facility] Last Admin: 09/25/17 09:15 Dose: 0.125 mg Diltiazem HCl (Cardizem Cd -) 180 mg PO DAILY [facility] Last Admin: 09/25/17 09:15 Dose: 180 mg Docusate Sodium (Colace -) 100 mg PO BID PRN PRN Reason: CONSTIPATION Furosemide (Lasix Injection -) 40 mg IVPUSH BID@0600,1400 [facility] Last Admin: 09/25/17 06:50 Dose: 40 mg Gabapentin (Neurontin -) 100 mg PO BID [facility] Last Admin: 09/25/17 09:14 Dose: 100 mg Glimepiride (Amaryl -) 2 mg PO BIDAC [facility] Last Admin: 09/25/17 07:05 Dose: 2 mg Piperacillin/Tazobactam/Dextrose (Zosyn 4.5gm Ivpb (Premix)) 4.5 gm in 100 mls @ 200 mls/hr IVPB Q8H-IV [facility]YUD[facility]ILA PRN Reason: Protocol Last Admin: 09/25/17 10:00 Dose: 200 mls/hr Levothyroxine Sodium (Synthroid -) 50 mcg PO DAILY@0700 [facility] Last Admin: 09/25/17 07:05 Dose: 50 mcg Losartan Potassium (Cozaar -) 25 mg PO DAILY [facility] Last Admin: 09/25/17 09:15 Dose: 25 mg Methylprednisolone Sodium Succinate (Solu-Medrol -) 40 mg IVPUSH Q8H-IV [facility] Last Admin: 09/25/17 09:18 Dose: 40 mg Montelukast Sodium (Singulair -) 10 mg PO HS [facility] Last Admin: 09/24/17 22:04 Dose: 10 mg Pantoprazole Sodium (Protonix -) 40 mg PO DAILY [facility] Last Admin: 09/25/17 09:19 Dose: 40 mg Tiotropium [place] (Spiriva -) 1 puff IH DAILY [facility] Last Admin: 09/25/17 09:16 Dose: Not Given - Objective Vital Signs: Vital Signs Temperature 97.4 F L 09/25/17 07:02 Pulse Rate 78 09/25/17 07:02 Respiratory Rate 20 09/25/17 02:46 Blood Pressure 140/70 09/25/17 07:02 O2 Sat by Pulse Oximetry (%) 98 09/25/17 08:47 Constitutional: Yes: No Distress, Calm Neck: Yes: Supple Cardiovascular: Yes: Pulse Irregular Respiratory: Yes: Regular, Diminished, Wheezes Gastrointestinal: Yes: Normal Bowel Sounds Edema: Yes Edema: LLE: 1+, RLE: 1+ Integumentary: Yes: Venous Stasis Changes Labs: CBC, BMP 09/25/17 06:19 09/25/17 06:19 INR, PTT INR 3.09 (0.82-1.09) H 09/25/17 06:19 Problem List - Problems (1) Acute on chronic diastolic (congestive) heart failure Code(s): I50.33 - ACUTE ON CHRONIC DIASTOLIC (CONGESTIVE) HEART FAILURE (2) Acute on chronic respiratory failure with hypoxia and hypercapnia Code(s): J96.21 - ACUTE AND CHRONIC RESPIRATORY FAILURE WITH HYPOXIA; J96.22 - ACUTE AND CHRONIC RESPIRATORY FAILURE WITH HYPERCAPNIA (3) COPD (chronic obstructive pulmonary disease) Code(s): J44.9 - CHRONIC OBSTRUCTIVE PULMONARY DISEASE, UNSPECIFIED Qualifiers: COPD type: unspecified COPD Qualified Code(s): J44.9 - Chronic obstructive pulmonary disease, unspecified (4) Pneumonia Code(s): J18.9 - PNEUMONIA, UNSPECIFIED ORGANISM Qualifiers: Pneumonia type: due to unspecified organism (5) Atrial fibrillation Code(s): I48.91 - UNSPECIFIED ATRIAL FIBRILLATION Qualifiers: Atrial fibrillation type: chronic Qualified Code(s): I48.2 - Chronic atrial fibrillation (6) Chronic venous stasis dermatitis of both lower extremities Code(s): I87.2 - VENOUS INSUFFICIENCY (CHRONIC) (PERIPHERAL) (7) Diabetes Code(s): E11.9 - TYPE 2 DIABETES MELLITUS WITHOUT COMPLICATIONS Qualifiers: Diabetes mellitus type: type 2 Diabetes mellitus complication status: with hyperglycemia Diabetes mellitus penitentiary insulin use: without penitentiary use Qualified Code(s): E11.65 - Type 2 diabetes mellitus with hyperglycemia (8) HTN (hypertension) Code(s): I10 - ESSENTIAL (PRIMARY) HYPERTENSION Qualifiers: Hypertension type: essential hypertension Qualified Code(s): I10 - Essential (primary) hypertension (9) Morbid obesity with BMI of 45.0-49.9, adult Code(s): E66.01 - MORBID (SEVERE) OBESITY DUE TO EXCESS CALORIES; Z68.42 - BODY MASS INDEX (BMI) 45.0-49.9, ADULT (10) Hypothyroidism Code(s): E03.9 - HYPOTHYROIDISM, UNSPECIFIED (11) Chronic anticoagulation Code(s): Z79.01 - CORRECTION (CURRENT) USE OF ANTICOAGULANTS Assessment/Plan 1. Acute on chronic hypoxemic respiratory failure 2. CAD angina pectoris, stable 3. Acute on chronic diastolic heart failure 4. Permanent atrial fibrillation [id number] score of 7 on coumadin with supratherapeutic INR 5. HTN/hypertensive cardiovascular disease 6. Type 2 DM 7. Hypothyroidism 8. COPD, ?RLL PNA 9. History of DVT 10. Chronic venous stasis 11. Recent Toe Amputation Right Foot PLAN: 1. Continue Cardizem CD 180 qd and losartan 25 qd 2. Continue Digoxin 0.125 qd with caution and close monitoring of Digoxin level 3. IV diuresis with monitor diuretic response, renal function and electrolytes 4. Continue dose Coumadin per INR 2-3 5. IV steroids with GI protection, empiric abx course per ID, BD, O2 as needed, f/u ABG and CXR
--- NOTE | 2017-09-25 15:45 | PN ---
Progress Note (short form) - Note Progress Note: Still with congested cough and ANDINO. No CP. Tired due to Insomnia. Intake & Output 09/22/17 09/23/17 09/24/17 09/25/17 23:59 23:59 23:59 23:59 Intake Total 350 Balance 350 Weight 200 lb 275 lb 15.982 oz 287 lb 6.4 oz Last Vital Signs Temp Pulse Resp BP Pulse Ox 97.6 F 73 20 103/56 98 09/25/17 13:00 09/25/17 13:00 09/25/17 13:00 09/25/17 13:00 09/25/17 08:47 Active Medications Albuterol Sulfate (Ventolin 0.083% Nebulizer Soln -) 1 amp NEB Q4H PRN PRN Reason: SHORT OF BREATH/WHEEZING Last Admin: 09/25/17 10:00 Dose: 1 amp Allopurinol (Zyloprim -) 100 mg PO DAILY [facility] Last Admin: 09/25/17 09:16 Dose: 100 mg Arformoterol Tartrate (Brovana (Restricted To Pulmonology/Resp) -) 1 amp NEB RBID [facility] Last Admin: 09/25/17 08:02 Dose: 1 amp Azithromycin (Azithromycin) 500 mg PO DAILY [facility] Stop: 09/26/17 10:01 Last Admin: 09/25/17 09:16 Dose: 500 mg Digoxin (Lanoxin -) 0.125 mg PO DAILY [facility] Last Admin: 09/25/17 09:15 Dose: 0.125 mg Diltiazem HCl (Cardizem Cd -) 180 mg PO DAILY [facility] Last Admin: 09/25/17 09:15 Dose: 180 mg Docusate Sodium (Colace -) 100 mg PO BID PRN PRN Reason: CONSTIPATION Furosemide (Lasix Injection -) 40 mg IVPUSH BID@0600,1400 [facility] Last Admin: 09/25/17 13:48 Dose: 40 mg Gabapentin (Neurontin -) 100 mg PO BID [facility] Last Admin: 09/25/17 09:14 Dose: 100 mg Glimepiride (Amaryl -) 2 mg PO BIDAC [facility] Last Admin: 09/25/17 07:05 Dose: 2 mg Piperacillin/Tazobactam/Dextrose (Zosyn 4.5gm Ivpb (Premix)) 4.5 gm in 100 mls @ 200 mls/hr IVPB Q8H-IV [facility] PRN Reason: Protocol Last Admin: 09/25/17 10:00 Dose: 200 mls/hr Levothyroxine Sodium (Synthroid -) 50 mcg PO DAILY@0700 [facility] Last Admin: 09/25/17 07:05 Dose: 50 mcg Losartan Potassium (Cozaar -) 25 mg PO DAILY [facility] Last Admin: 09/25/17 09:15 Dose: 25 mg Methylprednisolone Sodium Succinate (Solu-Medrol -) 40 mg IVPUSH Q8H-IV [facility] Last Admin: 09/25/17 09:18 Dose: 40 mg Montelukast Sodium (Singulair -) 10 mg PO HS [facility] Last Admin: 09/24/17 22:04 Dose: 10 mg Pantoprazole Sodium (Protonix -) 40 mg PO DAILY [facility] Last Admin: 09/25/17 09:19 Dose: 40 mg Tiotropium [place] (Spiriva -) 1 puff IH DAILY [facility] Last Admin: 09/25/17 09:16 Dose: Not Given GENERAL: awake and alert, NAD HEAD: Normal with no signs of trauma. EYES: PERRL, sclera anicteric, conjunctiva clear. NECK: Trachea midline, supple. LUNGS: Bialteral wheezing, scattered rhonchi HEART: Regular rate and rhythm, S1, S2 without murmur, rub or gallop. ABDOMEN: Soft, obese, nontender, nondistended EXTREMITIES: 2+ posterior tibial pulses, 2+ pitting edema b/l. NEUROLOGICAL: Non-focal Laboratory Results - last 24 hr 09/24/17 09/25/17 09/25/17 19:15 06:19 06:19 WBC 7.2 RBC 4.74 Hgb 12.2 Hct 38.9 MCV 82.0 MCH 25.8 MCHC 31.4 L RDW 19.4 H Plt Count 341 MPV 7.9 Neutrophils % 90.5 H Lymphocytes % 6.7 L D Monocytes % 2.7 L D Eosinophils % 0.0 D Basophils % 0.1 PT with INR 34.90 H INR 3.09 H Puncture Site Left radial ABG pH 7.40 ABG pCO2 at Pt Temp 50.4 H ABG pO2 at Pt Temp 69.4 ABG HCO3 30.8 H ABG O2 Sat (Measured) 93.4 ABG O2 Content 19.0 ABG Base Excess 5.2 H Adolph Test Positive O2 Delivery Device Nasal Oxygen Flow Rate 2 PEEP 0.0 Sodium Potassium Chloride Carbon Dioxide Anion Gap BUN Creatinine POC Glucometer Random Glucose Calcium 09/25/17 09/25/17 06:19 08:00 WBC RBC Hgb Hct MCV MCH MCHC RDW Plt Count MPV Neutrophils % Lymphocytes % Monocytes % Eosinophils % Basophils % PT with INR INR Puncture Site ABG pH ABG pCO2 at Pt Temp ABG pO2 at Pt Temp ABG HCO3 ABG O2 Sat (Measured) ABG O2 Content ABG Base Excess Adolph Test O2 Delivery Device Oxygen Flow Rate PEEP Sodium 136 Potassium 3.9 Chloride 99 Carbon Dioxide 31 Anion Gap 6 L BUN 28 H D Creatinine 0.9 D POC Glucometer 299.64023 Random Glucose 295 H D Calcium 8.8 Problem List - Problems (1) Acute on chronic respiratory failure with hypoxia and hypercapnia Code(s): J96.21 - ACUTE AND CHRONIC RESPIRATORY FAILURE WITH HYPOXIA; J96.22 - ACUTE AND CHRONIC RESPIRATORY FAILURE WITH HYPERCAPNIA (2) COPD (chronic obstructive pulmonary disease) Code(s): J44.9 - CHRONIC OBSTRUCTIVE PULMONARY DISEASE, UNSPECIFIED (3) DVT prophylaxis Code(s): [id number] - (4) Pneumonia Code(s): J18.9 - PNEUMONIA, UNSPECIFIED ORGANISM (5) Acute respiratory distress Code(s): J80 - ACUTE RESPIRATORY DISTRESS SYNDROME (6) Atrial fibrillation Code(s): I48.91 - UNSPECIFIED ATRIAL FIBRILLATION Qualifiers: Atrial fibrillation type: chronic Qualified Code(s): I48.2 - Chronic atrial fibrillation (7) CHF (congestive heart failure) Code(s): I50.9 - HEART FAILURE, UNSPECIFIED Qualifiers: Congestive heart failure type: diastolic Congestive heart failure chronicity: chronic Qualified Code(s): I50.32 - Chronic diastolic (congestive ) heart failure (8) COPD with acute exacerbation Code(s): J44.1 - CHRONIC OBSTRUCTIVE PULMONARY DISEASE W (ACUTE) EXACERBATION (9) Chronic venous stasis dermatitis of both lower extremities Code(s): I87.2 - VENOUS INSUFFICIENCY (CHRONIC) (PERIPHERAL) (10) Diabetes Code(s): E11.9 - TYPE 2 DIABETES MELLITUS WITHOUT COMPLICATIONS Qualifiers: Diabetes mellitus type: type 2 Diabetes mellitus complication status: with hyperglycemia 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 RLL PNEUMONIA AFIB DM H/O DVT HYPOTHYROID PLAN IV STEROIDS ANTIBIOTICS PER ID LASIX INHALED BRONCHODILATORS O2 DAILY WTS Dr Alcala
--- NOTE | 2017-09-25 16:42 | PN ---
Teaching Attending Note Name of Resident: Camille Concepcion ATTENDING PHYSICIAN STATEMENT I saw and evaluated the patient. I reviewed the resident's note and discussed the case with the resident. I agree with the resident's findings and plan as documented. SUBJECTIVE: Dyspneic with exertion + cough No c/o fever/ chills Afebrile on steroids OBJECTIVE: Cor S1S2 Coarse rhonchi bilaterally Abdomen obese + massive pannus + chronic venous stasis dermatitis ASSESSMENT AND PLAN: Acute exacerbation COPD Possible pneumonia Morbid obesity Continue zithromax/ zosyn Steroids, bronchodilators
[2017-09-25] MEDS: MONTELUKAST NA 10 MG TABLET PO SCH (23:00)
[2017-09-25] MEDS ORDERED: oxyCODONE HCL 5 MG TABLET PO ONE (23:45)
[2017-09-26] MEDS ORDERED: PT OWN MED DRAWER 7, Y5N ONE ×4 (01:34→17:40)
[2017-09-26] MEDS: methylPREDNISolone NA SUCC 40 MG/1 ML VIAL IVPUSH SCH ×3 (02:18→17:46)
[2017-09-26] MEDS: PIPERACILLIN/TAZOB 4.5 GM 4.5 GM/100 ML BAG IVPB SCH ×3 (02:18→17:46)
[2017-09-26] MEDS ORDERED: MAG HYDROX/AL HYDROX/SIMETH 30 ML UNIT-DOSE CUP PO ONE (03:55)
[2017-09-26] MEDS ORDERED: MAG HYDROX/AL HYDROX/SIMETH 30 ML UNIT-DOSE CUP ONE (05:24)
[2017-09-26] MEDS: GLIMEPIRIDE 2 MG TABLET (FP) PO SCH ×2 (06:33→17:37)
[2017-09-26] MEDS: LEVOTHYROXINE NA 50 MCG TABLET (FP) PO SCH (06:33)
[2017-09-26] MEDS: FUROSEMIDE 40 MG/4 ML INJECTABLE VIAL IVPUSH SCH (06:35)
[2017-09-26] MEDS: ARFORMOTEROL TARTRATE 15 MCG/2 ML VIAL NEB SCH ×2 (09:32→21:26)
[2017-09-26 09:41] LABS: BASO % 0.1 % (0-2.0); HEMATOCRIT 40.9 % (32.4-45.2); HEMOGLOBIN 12.4 GM/dL (10.7-15.3); MCHC 30.3 g/dl (32.0-36.0); MEAN CELL VOLUME 82.5 fl (80-96); MEAN PLT VOLUME 7.6 fl (7.5-11.1); MONO % 2.6 % (3.8-10.2); NEUT % 95.3 % (42.8-82.8); PLATELET COUNT 337 K/MM3 (134-434); RBC 4.95 M/mm3 (3.60-5.2); RDW 19.5 % (11.6-15.6)
--- NOTE | 2017-09-26 09:58 | PN ---
Progress Note (short form) - Note Progress Note: The patient finally got a [facility] surgical room. Still some coughing and congestion and difficulty with bringing up sputum.No chest pain. Severe arthritis left knee. Will try to have PT evaluate. Await INR; Will restart Coumadin if INR is below 3. On Exam: Vital Signs Temp 97.5 F L 09/26/17 06:00 Pulse 83 09/26/17 06:00 Resp 20 09/26/17 06:00 BP 121/55 09/26/17 06:00 Pulse Ox 98 09/25/17 21:00 Intake & Output 09/25/17 09/25/17 09/26/17 11:59 23:59 11:59 Intake Total 650 100 Balance 650 100 Weight 287 lb 6.4 oz Intake: IVPB 100 Oral 650 Other: Voiding Method Bedside Commode Toilet # Unmeasured Voids Void 1 2 Bowel Movement No Weight Measurement Method Standing Scale Alert IN Bed Some wheezing persists bilaterally Cor: Irreg Abd: Large Pannus Ext: Chronic stasis changes: No edema Left heel: Alevyn pad for large heel scab. Abnormal Lab Results 09/26/17 09:14 WBC 15.0 H D MCH 25.0 L MCHC 30.3 L RDW 19.5 H Neutrophils % 95.3 H Lymphocytes % 2.0 L D Monocytes % 2.6 L IMP: Acute exacerbation COPD ? Pnuemonia community acquired Acute on Chronic CHF A. Fib on Coumadin Morbid Obesity Diabetes Mellitus with elevated BGM's due to steroids Plan: F/U Lab PT Continue IV steroids F/U Cardiology, ID and PulmonaryMD's
[2017-09-26 10:01] LABS: INR 2.84 (0.82-1.09); PROTHROMBIN TIME (PATIENT) 32.1 SEC (9.98-11.88)
[2017-09-26 10:19] LABS: ANION GAP 10 (8-16); BLOOD UREA NITROGEN 35 mg/dL (7-18); CALCIUM 9.1 mg/dL (8.5-10.1); CHLORIDE 101 mmol/L (98-107); CO2 34 mmol/L (21-32); CREATININE 0.9 mg/dL (0.55-1.02); GLUCOSE,RANDOM 169 mg/dL (74-106); POTASSIUM 3.2 mmol/L (3.5-5.1); SODIUM 145 mmol/L (136-145)
--- NOTE | 2017-09-26 11:55 | PN ---
Progress Note, Physician History of Present Illness: Dyspnea and non-productive cough slowly improving. - Current Medication List Current Medications: Active Medications Albuterol Sulfate (Ventolin 0.083% Nebulizer Soln -) 1 amp NEB Q4H PRN PRN Reason: SHORT OF BREATH/WHEEZING Last Admin: 09/25/17 10:00 Dose: 1 amp Allopurinol (Zyloprim -) 100 mg PO DAILY [facility] Last Admin: 09/25/17 09:16 Dose: 100 mg Arformoterol Tartrate (Brovana (Restricted To Pulmonology/Resp) -) 1 amp NEB RBID [facility] Last Admin: 09/26/17 09:32 Dose: 1 amp Digoxin (Lanoxin -) 0.125 mg PO DAILY [facility] Last Admin: 09/25/17 09:15 Dose: 0.125 mg Diltiazem HCl (Cardizem Cd -) 180 mg PO DAILY [facility] Last Admin: 09/25/17 09:15 Dose: 180 mg Docusate Sodium (Colace -) 100 mg PO BID PRN PRN Reason: CONSTIPATION Furosemide (Lasix Injection -) 40 mg IVPUSH BID@0600,1400 [facility] Last Admin: 09/26/17 06:35 Dose: 40 mg Gabapentin (Neurontin -) 100 mg PO BID [facility] Last Admin: 09/25/17 23:00 Dose: 100 mg Glimepiride (Amaryl -) 2 mg PO BIDAC [facility] Last Admin: 09/26/17 06:33 Dose: 2 mg Piperacillin/Tazobactam/Dextrose (Zosyn 4.5gm Ivpb (Premix)) 4.5 gm in 100 mls @ 200 mls/hr IVPB Q8H-IV [facility] PRN Reason: Protocol Last Admin: 09/26/17 02:18 Dose: 200 mls/hr Levothyroxine Sodium (Synthroid -) 50 mcg PO DAILY@0700 [facility] Last Admin: 09/26/17 06:33 Dose: 50 mcg Losartan Potassium (Cozaar -) 25 mg PO DAILY [facility] Last Admin: 09/25/17 09:15 Dose: 25 mg Methylprednisolone Sodium Succinate (Solu-Medrol -) 40 mg IVPUSH Q8H-IV [facility] Last Admin: 09/26/17 02:18 Dose: 40 mg Montelukast Sodium (Singulair -) 10 mg PO HS [facility] Last Admin: 09/25/17 23:00 Dose: 10 mg Pantoprazole Sodium (Protonix -) 40 mg PO DAILY [facility] Last Admin: 09/25/17 09:19 Dose: 40 mg Tiotropium [place] (Spiriva -) 1 puff IH DAILY [facility] Last Admin: 09/25/17 09:16 Dose: Not Given Warfarin Sodium (Coumadin -) 4 mg PO DAILY@1800 [facility] - Objective Vital Signs: Vital Signs Temperature 97.5 F L 09/26/17 06:00 Pulse Rate 83 09/26/17 06:00 Respiratory Rate 20 09/26/17 06:00 Blood Pressure 121/55 09/26/17 06:00 O2 Sat by Pulse Oximetry (%) 98 09/25/17 21:00 Constitutional: Yes: No Distress, Calm Neck: Yes: Supple Cardiovascular: Yes: Pulse Irregular Respiratory: Yes: Regular, Diminished, On Nasal O2 Gastrointestinal: Yes: Normal Bowel Sounds, Soft Edema: Yes Edema: LLE: 1+, RLE: 1+ Integumentary: Yes: Venous Stasis Changes Labs: CBC, BMP 09/26/17 09:14 09/26/17 09:14 INR, PTT INR 2.84 (0.82-1.09) H 09/26/17 09:14 - ....Imaging Chest X-ray: Report Reviewed (Improved) Problem List - Problems (1) Acute on chronic diastolic (congestive) heart failure Code(s): I50.33 - ACUTE ON CHRONIC DIASTOLIC (CONGESTIVE) HEART FAILURE (2) Acute on chronic respiratory failure with hypoxia and hypercapnia Code(s): J96.21 - ACUTE AND CHRONIC RESPIRATORY FAILURE WITH HYPOXIA; J96.22 - ACUTE AND CHRONIC RESPIRATORY FAILURE WITH HYPERCAPNIA (3) COPD (chronic obstructive pulmonary disease) Code(s): J44.9 - CHRONIC OBSTRUCTIVE PULMONARY DISEASE, UNSPECIFIED Qualifiers: COPD type: unspecified COPD Qualified Code(s): J44.9 - Chronic obstructive pulmonary disease, unspecified (4) Pneumonia Code(s): J18.9 - PNEUMONIA, UNSPECIFIED ORGANISM Qualifiers: Pneumonia type: due to unspecified organism (5) Atrial fibrillation Code(s): I48.91 - UNSPECIFIED ATRIAL FIBRILLATION Qualifiers: Atrial fibrillation type: chronic Qualified Code(s): I48.2 - Chronic atrial fibrillation (6) Chronic venous stasis dermatitis of both lower extremities Code(s): I87.2 - VENOUS INSUFFICIENCY (CHRONIC) (PERIPHERAL) (7) Diabetes Code(s): E11.9 - TYPE 2 DIABETES MELLITUS WITHOUT COMPLICATIONS Qualifiers: Diabetes mellitus type: type 2 Diabetes mellitus complication status: with hyperglycemia Diabetes mellitus longterm insulin use: without longterm use Qualified Code(s): E11.65 - Type 2 diabetes mellitus with hyperglycemia (8) HTN (hypertension) Code(s): I10 - ESSENTIAL (PRIMARY) HYPERTENSION Qualifiers: Hypertension type: essential hypertension Qualified Code(s): I10 - Essential (primary) hypertension (9) Morbid obesity with BMI of 45.0-49.9, adult Code(s): E66.01 - MORBID (SEVERE) OBESITY DUE TO EXCESS CALORIES; Z68.42 - BODY MASS INDEX (BMI) 45.0-49.9, ADULT (10) Hypothyroidism Code(s): E03.9 - HYPOTHYROIDISM, UNSPECIFIED (11) Chronic anticoagulation Code(s): Z79.01 - FPC (CURRENT) USE OF ANTICOAGULANTS Assessment/Plan 1. Acute on chronic hypoxemic respiratory failure 2. CAD angina pectoris, stable 3. Acute on chronic diastolic heart failure resolving 4. Permanent atrial fibrillation [id number] score of 7 on coumadin with therapeutic INR 5. HTN/hypertensive cardiovascular disease 6. Type 2 DM 7. Hypothyroidism 8. COPD, ?RLL PNA 9. History of DVT 10. Chronic venous stasis 11. Recent Toe Amputation Right Foot PLAN: 1. Continue Cardizem CD 180 qd and losartan 25 qd 2. Continue Digoxin 0.125 qd with caution and close monitoring of Digoxin level 3. Resume oral diuresis with monitor diuretic response, renal function and electrolytes 4. Continue dose Coumadin per INR 2-3 5. IV steroids with GI protection, empiric abx course per ID, BD, Singulair, O2 as needed, replete K
[2017-09-26] MEDS: AZITHROMYCIN 500 MG TABLET PO SCH (12:13)
[2017-09-26] MEDS: LOSARTAN POTASSIUM 25 MG TABLET PO SCH (12:14)
[2017-09-26] MEDS: PANTOPRAZOLE 40 MG TABLET (FP) PO SCH (12:14)
[2017-09-26] MEDS: ALLOPURINOL 100 MG TABLET (FP) PO SCH (12:16)
[2017-09-26] MEDS: DIGOXIN 0.125 MG TABLET (FP) PO SCH (12:16)
[2017-09-26] MEDS: GABAPENTIN 100 MG CAPSULE (FP) PO SCH ×2 (12:17→23:10)
[2017-09-26] MEDS ORDERED: POTASSIUM CHLORIDE TABS 20 MEQ TABLET.ER (FP) PO ONE (12:30)
--- NOTE | 2017-09-26 12:36 | PN ---
Progress Note (short form) - Note Progress Note: PULMONARY VSS/AFEBRILE ANICTERIC SCATTERED RHONCHI S1S2 OBESE SOFT NO EDEMA LABS/MEDS/NOTES/IMAGES/MICRO NOTED IMP ACUTE ON CHRONIC HYPOXEMIC RESPIRATORY FAILURE COPD CHF ASHD RLL PNEUMONIA AFIB DM H/O DVT HYPOTHYROID PLAN IV STEROIDS ANTIBIOTICS PER ID LASIX INHALED BRONCHODILATORS O2 DAILY [facility] Kristy STEIN MD
--- NOTE | 2017-09-26 16:53 | PN ---
Physical Exam: SUBJECTIVE: Patient seen and examined at bedside. C/o abdominal pain and 4-5 episodes loose BMs since yesterday. Pt also has decreased appetite during this time. Otherwise denies ARREDONDO, fever, chills, SOB, or changes in urinary function. Afebrile overnight. No acute events. OBJECTIVE: Vital Signs Period Temp Pulse Resp BP Sys/Luke Pulse Ox Last 24 Hr 97.5 F-98.4 F 78-98 18-20 103-122/51-74 98 GENERAL: The patient is lying in bed. Awake, alert, and fully oriented, in no acute distress. HEAD: Normal with no signs of trauma. EYES: PERRL, extraocular movements intact, sclera anicteric, conjunctiva clear. NECK: Trachea midline, supple. LUNGS: rhonchi and wheezes appreciated b/l. Without accessory m. usage. HEART: Regular rate and rhythm, S1, S2 without murmur, rub or gallop. ABDOMEN: Soft, obese, diffusely tender to palpation, nondistended, normoactive bowel sounds, no guarding EXTREMITIES: 2+ posterior tibial pulses, warm, well-perfused, 2+ pitting edema b /l NEUROLOGICAL: Cranial nerves II through XII grossly intact. Laboratory Results - last 24 hr 09/26/17 09/26/17 09/26/17 05:44 09:14 09:14 WBC 15.0 H D RBC 4.95 Hgb 12.4 Hct 40.9 MCV 82.5 MCH 25.0 L MCHC 30.3 L RDW 19.5 H Plt Count 337 MPV 7.6 Neutrophils % 95.3 H Lymphocytes % 2.0 L D Monocytes % 2.6 L Eosinophils % 0.0 Basophils % 0.1 PT with INR 32.10 H INR 2.84 H Sodium Potassium Chloride Carbon Dioxide Anion Gap BUN Creatinine POC Glucometer 158 Random Glucose Calcium 09/26/17 09:14 WBC RBC Hgb Hct MCV MCH MCHC RDW Plt Count MPV Neutrophils % Lymphocytes % Monocytes % Eosinophils % Basophils % PT with INR INR Sodium 145 Potassium 3.2 L Chloride 101 Carbon Dioxide 34 H Anion Gap 10 BUN 35 H Creatinine 0.9 POC Glucometer Random Glucose 169 H Calcium 9.1 Microbiology 09/24/17 16:40 Sputum - Expectorated Gram Stain - Final 09/24/17 03:00 Urine For Antigen Detection Legionella Antigen - Final 09/24/17 03:00 Urine For Antigen Detection Streptococcus pneumoniae Antigen (M - Final 09/24/17 03:00 Urine - Urine Clean Catch Urine Culture - Final Yeast Like Organism 09/24/17 16:40 Sputum - Expectorated Sputum Culture - Preliminary NORMAL RESPIRATORY SAIMA 09/23/17 18:26 Blood - Peripheral Venous Blood Culture - Preliminary NO GROWTH OBTAINED AFTER 48 HOURS, INCUBATION TO CONTINUE FOR 3 DAYS. 09/23/17 18:26 Blood - Peripheral Venous Blood Culture - Preliminary NO GROWTH OBTAINED AFTER 48 HOURS, INCUBATION TO CONTINUE FOR 3 DAYS. Active Medications Generic Name Dose Route Start Last Admin Trade Name Freq PRN Reason Stop Dose Admin Albuterol Sulfate 1 amp 09/24/17 16:16 09/25/17 10:00 Ventolin 0.083% Nebulizer Soln - NEB 1 amp Q4H PRN Administration SHORT OF BREATH/WHEEZING Allopurinol 100 mg 09/24/17 10:00 09/26/17 12:16 Zyloprim - PO 100 mg DAILY [facility] Administration Arformoterol Tartrate 1 amp 09/24/17 20:00 09/26/17 09:32 Brovana (Restricted To Pulmonology/Resp) - NEB 1 amp RBID [facility] Administration Digoxin 0.125 mg 09/24/17 10:00 09/26/17 12:16 Lanoxin - PO 0.125 mg DAILY [facility] Administration Diltiazem HCl 180 mg 09/24/17 10:00 09/26/17 12:13 Cardizem Cd - PO 180 mg DAILY [facility] Administration Docusate Sodium 100 mg 09/23/17 21:35 Colace - PO BID PRN CONSTIPATION Furosemide 40 mg 09/26/17 14:00 Lasix - PO BID@0600,1400 [facility] Gabapentin 100 mg 09/23/17 22:00 09/26/17 12:17 Neurontin - PO 100 mg BID [facility] Administration Glimepiride 2 mg 09/24/17 07:00 09/26/17 06:33 Amaryl - PO 2 mg BIDAC [facility] Administration Piperacillin/Tazobactam/Dextrose 4.5 gm in 100 mls @ 200 mls/hr 09/24/17 11: 30 09/26/17 12:10 Zosyn 4.5gm Ivpb (Premix) IVPB 200 mls/hr Q8H-IV [facility]YUD[facility]IL[facility] Administration Protocol Levothyroxine Sodium 50 mcg 09/24/17 07:00 09/26/17 06:33 Synthroid - PO 50 mcg DAILY@0700 [facility] Administration Losartan Potassium 25 mg 09/24/17 10:00 09/26/17 12:14 Cozaar - PO 25 mg DAILY [facility] Administration Methylprednisolone Sodium Succinate 40 mg 09/24/17 18:00 09/26/17 12:12 Solu-Medrol - IVPUSH 40 mg Q8H-IV LYUDMILA Administration Montelukast Sodium 10 mg 09/23/17 22:00 09/25/17 23:00 Singulair - PO 10 mg HS [facility]YUDMILA Administration Pantoprazole Sodium 40 mg 09/24/17 18:45 09/26/17 12:14 Protonix - PO 40 mg DAILY [facility] Administration Tiotropium [place] 1 puff 09/24/17 10:00 09/25/17 09:16 Spiriva - IH Not Given DAILY [facility] Warfarin Sodium 4 mg 09/26/17 18:00 Coumadin - PO DAILY@1800 [facility] ASSESSMENT/PLAN: #COPD exacerbation #PNA -currently afebrile, leukocytosis 15 most likely 2/2 steroids -continue zosyn 4.5gm IVPB q8h (Day 3) -zithromax has been d/c as urine legionella Ag (-) -Ucx: yeast like organism, most likely contaminant - no need to tx currently. -Sputum, blood cx (-) #Diarrhea -C.diff toxin/ag - will f/u Thank you Camille Concepcion MD PGY-1 ID Team Visit type - Emergency Visit Emergency Visit: No - New Patient This patient is new to me today: No - Critical Care Critical Care patient: No
--- NOTE | 2017-09-26 17:24 | PN ---
Teaching Attending Note Name of Resident: Camille Concepcion ATTENDING PHYSICIAN STATEMENT I saw and evaluated the patient. I reviewed the resident's note and discussed the case with the resident. I agree with the resident's findings and plan as documented. SUBJECTIVE: Continued dyspnea on exertion +cough with difficulty mobilizing secretions Now with loose BMs Afebrile with elevated WBC on steroids OBJECTIVE: Afebrile Dyspneic at rest Cor S1S2 + Coarse BS bilaterally Abdo + pannus + chronic venous stasis dermatitis ASSESSMENT AND PLAN: Exacerbation COPD RLL pneumonia Antibiotic - induced diarrhea v C diff Continue zosyn steroids, bronchodilators Check C difficile
[2017-09-26] MEDS: TIOTROPIUM BROMIDE 18 MCG/INH (DEVICE W/ 5 CAPSULES) IH SCH (17:32)
[2017-09-26] MEDS: FUROSEMIDE 40 MG TABLET (FP) PO SCH (17:34)
[2017-09-26] MEDS ORDERED: WARFARIN NA 2 MG TABLET (UD) PO SCH (18:00)
[2017-09-26] MEDS: MONTELUKAST NA 10 MG TABLET PO SCH (23:10)
[2017-09-27] MEDS: methylPREDNISolone NA SUCC 40 MG/1 ML VIAL IVPUSH SCH ×3 (02:21→18:12)
[2017-09-27] MEDS: PIPERACILLIN/TAZOB 4.5 GM 4.5 GM/100 ML BAG IVPB SCH ×3 (02:21→18:12)
[2017-09-27] MEDS ORDERED: PT OWN MED DRAWER 7, Y5N ONE (05:34)
[2017-09-27] MEDS: FUROSEMIDE 40 MG TABLET (FP) PO SCH ×2 (06:07→14:03)
[2017-09-27] MEDS: LEVOTHYROXINE NA 50 MCG TABLET (FP) PO SCH (06:07)
[2017-09-27] MEDS: GLIMEPIRIDE 2 MG TABLET (FP) PO SCH ×2 (06:07→16:45)
[2017-09-27 08:16] LABS: ANION GAP 9 (8-16); BLOOD UREA NITROGEN 47 mg/dL (7-18); CHLORIDE 103 mmol/L (98-107); CO2 30 mmol/L (21-32); CREATININE 1.1 mg/dL (0.55-1.02); GLUCOSE,RANDOM 79 mg/dL (74-106); SODIUM 142 mmol/L (136-145)
[2017-09-27 08:23] LABS: INR 3.7 (0.82-1.09); PROTHROMBIN TIME (PATIENT) 41.8 SEC (9.98-11.88)
[2017-09-27 08:36] LABS: BASO % 0.1 % (0-2.0); HEMATOCRIT 39.5 % (32.4-45.2); HEMOGLOBIN 12.3 GM/dL (10.7-15.3); LYMPH % 4.2 % (8-40); MCH 25.6 pg (25.7-33.7); MCHC 31.1 g/dl (32.0-36.0); MEAN CELL VOLUME 82.3 fl (80-96); MEAN PLT VOLUME 7.5 fl (7.5-11.1); MONO % 1.8 % (3.8-10.2); NEUT % 93.9 % (42.8-82.8); PLATELET COUNT 310 K/MM3 (134-434); RBC 4.79 M/mm3 (3.60-5.2); RDW 19.6 % (11.6-15.6); WHITE BLOOD COUNT 9.6 K/mm3 (4.0-10.0)
[2017-09-27] MEDS: ARFORMOTEROL TARTRATE 15 MCG/2 ML VIAL NEB SCH ×2 (08:39→21:50)
[2017-09-27] MEDS: ALLOPURINOL 100 MG TABLET (FP) PO SCH (11:15)
[2017-09-27] MEDS: TIOTROPIUM BROMIDE 18 MCG/INH (DEVICE W/ 5 CAPSULES) IH SCH (12:09)
[2017-09-27] MEDS: PANTOPRAZOLE 40 MG TABLET (FP) PO SCH (12:12)
[2017-09-27] MEDS: GABAPENTIN 100 MG CAPSULE (FP) PO SCH ×2 (12:12→23:18)
[2017-09-27] MEDS: LOSARTAN POTASSIUM 25 MG TABLET PO SCH (12:12)
[2017-09-27] MEDS: DIGOXIN 0.125 MG TABLET (FP) PO SCH (12:13)
--- NOTE | 2017-09-27 12:34 | PN ---
Progress Note (short form) - Note Progress Note: Chief Complaint: Events noted, notes reviewed. Denies any chest pain but reports persistent dyspnea and cough productive of clear sputum History of Present Illness: Seen and examined. Events noted, notes reviewed. Denies any chest pain but reports persistent dyspnea and cough productive of clear sputum Medications: Current Medications Albuterol Sulfate (Ventolin 0.083% Nebulizer Soln -) 1 amp NEB Q4H PRN PRN Reason: SHORT OF BREATH/WHEEZING Last Admin: 09/25/17 10:00 Dose: 1 amp Allopurinol (Zyloprim -) 100 mg PO DAILY [facility] Last Admin: 09/27/17 11:15 Dose: 100 mg Arformoterol Tartrate (Brovana (Restricted To Pulmonology/Resp) -) 1 amp NEB RBID [facility] Last Admin: 09/27/17 08:39 Dose: 1 amp Digoxin (Lanoxin -) 0.125 mg PO DAILY [facility] Last Admin: 09/27/17 12:13 Dose: 0.125 mg Diltiazem HCl (Cardizem Cd -) 180 mg PO DAILY [facility] Last Admin: 09/26/17 12:13 Dose: 180 mg Docusate Sodium (Colace -) 100 mg PO BID PRN PRN Reason: CONSTIPATION Furosemide (Lasix -) 40 mg PO BID@0600,1400 [facility] Last Admin: 09/27/17 06:07 Dose: 40 mg Gabapentin (Neurontin -) 100 mg PO BID [facility] Last Admin: 09/27/17 12:12 Dose: 100 mg Glimepiride (Amaryl -) 2 mg PO BIDAC [facility] Last Admin: 09/27/17 06:07 Dose: 2 mg Piperacillin/Tazobactam/Dextrose (Zosyn 4.5gm Ivpb (Premix)) 4.5 gm in 100 mls @ 200 mls/hr IVPB Q8H-IV LYUDMILA PRN Reason: Protocol Last Admin: 09/27/17 12:10 Dose: 200 mls/hr Levothyroxine Sodium (Synthroid -) 50 mcg PO DAILY@0700 [facility] Last Admin: 09/27/17 06:07 Dose: 50 mcg Losartan Potassium (Cozaar -) 25 mg PO DAILY [facility] Last Admin: 09/27/17 12:12 Dose: 25 mg Methylprednisolone Sodium Succinate (Solu-Medrol -) 40 mg IVPUSH Q8H-IV [facility] Last Admin: 09/27/17 10:00 Dose: 40 mg Montelukast Sodium (Singulair -) 10 mg PO HS [facility] Last Admin: 09/26/17 23:10 Dose: 10 mg Pantoprazole Sodium (Protonix -) 40 mg PO DAILY [facility] Last Admin: 09/27/17 12:12 Dose: 40 mg Tiotropium [place] (Spiriva -) 1 puff IH DAILY [facility] Last Admin: 09/27/17 12:09 Dose: 1 inh Warfarin Sodium (Coumadin -) 4 mg PO DAILY@1800 [facility] Last Admin: 09/26/17 17:45 Dose: 4 mg Vital Signs: Last Vital Signs Temp Pulse Resp BP Pulse Ox 97.3 F L 80 18 129/56 98 09/27/17 06:00 09/27/17 12:13 09/27/17 06:00 09/27/17 06:00 09/26/17 21:00 Intake & Output 09/24/17 09/25/17 09/26/17 09/27/17 23:59 23:59 23:59 23:59 Intake Total 650 450 100 Balance 650 450 100 Weight 275 lb 15.982 oz 287 lb 6.4 oz Neck: Supple Negative JVD No Bruit Respiratory: Diminished Breath Sounds at the Bases Bilateral Scattered Rhonchi Cardiovascular: S1 S2 Irregularly Irregular Gastrointestinal: Soft Benign Normal Bowel Sounds Ext: Edema Labs: CBC, BMP 09/27/17 06:00 09/27/17 06:00 INR, PTT INR 3.70 (0.82-1.09) H D 09/27/17 06:00 Assessment/Plan ASSESSMENT: 1. Acute on chronic hypoxemic respiratory failure related to exacerbation of reactive airway disease/COPD, resolving 2. Diastolic LV dysfunction with chronic class I-II NYHA classification LV congestive heart failure, resolving 3. CAD angina pectoris, stable 4. Permanent atrial fibrillation [id number] score of 7 on Coumadin, supra- therapeutic INR 5. HTN/hypertensive cardiovascular disease 6. DM 7. Hypothyroidism 8. CKD 9. 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 History of DVT 11. Chronic venous stasis 12. Hypokalemia PLAN: 1. Continue Cardizem CD 2. Continue Digoxin with caution and close monitoring of Digoxin level 3. Continue Lasix with close monitoring of renal function 4. Continue Cozaar with close monitoring of renal function 5. A/C with Coumadin as per INR 6. Correction of Hypokalemia Andrew Vines MD
--- NOTE | 2017-09-27 13:27 | PN ---
Progress Note (short form) - Note Progress Note: PULMONARY Slightly less congested. +cough and wheezing. Last Vital Signs Temp Pulse Resp BP Pulse Ox 97.3 F L 80 18 129/56 98 09/27/17 06:00 09/27/17 12:13 09/27/17 06:00 09/27/17 06:00 09/26/17 21:00 Gen: tachypneic with speaking Heart: RRR Lung: bilateral rhonchi, wheezes Abd: soft, nontender Ext: chronic changes CBC, BMP 09/27/17 06:00 09/27/17 06:00 Active Medications Albuterol Sulfate (Ventolin 0.083% Nebulizer Soln -) 1 amp NEB Q4H PRN PRN Reason: SHORT OF BREATH/WHEEZING Last Admin: 09/25/17 10:00 Dose: 1 amp Allopurinol (Zyloprim -) 100 mg PO DAILY [facility] Last Admin: 09/27/17 11:15 Dose: 100 mg Arformoterol Tartrate (Brovana (Restricted To Pulmonology/Resp) -) 1 amp NEB RBID [facility] Last Admin: 09/27/17 08:39 Dose: 1 amp Digoxin (Lanoxin -) 0.125 mg PO DAILY [facility] Last Admin: 09/27/17 12:13 Dose: 0.125 mg Diltiazem HCl (Cardizem Cd -) 180 mg PO DAILY [facility] Last Admin: 09/26/17 12:13 Dose: 180 mg Docusate Sodium (Colace -) 100 mg PO BID PRN PRN Reason: CONSTIPATION Furosemide (Lasix -) 40 mg PO BID@0600,1400 [facility] Last Admin: 09/27/17 06:07 Dose: 40 mg Gabapentin (Neurontin -) 100 mg PO BID [facility] Last Admin: 09/27/17 12:12 Dose: 100 mg Glimepiride (Amaryl -) 2 mg PO BIDAC [facility] Last Admin: 09/27/17 06:07 Dose: 2 mg Piperacillin/Tazobactam/Dextrose (Zosyn 4.5gm Ivpb (Premix)) 4.5 gm in 100 mls @ 200 mls/hr IVPB Q8H-IV LYUDMILA PRN Reason: Protocol Last Admin: 09/27/17 12:10 Dose: 200 mls/hr Levothyroxine Sodium (Synthroid -) 50 mcg PO DAILY@0700 [facility] Last Admin: 09/27/17 06:07 Dose: 50 mcg Losartan Potassium (Cozaar -) 25 mg PO DAILY [facility] Last Admin: 09/27/17 12:12 Dose: 25 mg Methylprednisolone Sodium Succinate (Solu-Medrol -) 40 mg IVPUSH Q8H-IV [facility] Last Admin: 09/27/17 10:00 Dose: 40 mg Montelukast Sodium (Singulair -) 10 mg PO HS [facility] Last Admin: 09/26/17 23:10 Dose: 10 mg Pantoprazole Sodium (Protonix -) 40 mg PO DAILY [facility] Last Admin: 09/27/17 12:12 Dose: 40 mg Tiotropium [place] (Spiriva -) 1 puff IH DAILY [facility] Last Admin: 09/27/17 12:09 Dose: 1 inh Warfarin Sodium (Coumadin -) 4 mg PO DAILY@1800 [facility] Last Admin: 09/26/17 17:45 Dose: 4 mg A/P Acute on Chronic Hypoxic Respiratory Failure Pneumonia Acute COPD Exacerbation Acute on Chronic Diastolic Heart Failure Atrial Fibrillation HTN DM Hypothyroidism - continue antibiotics - f/u cultures - continue medrol at current dose - inhaled bronchodilators - O2 to keep Spo2 >90% - lasix - monitor urine output, creatinine - replete lytes - rate control with digoxin, cardizem - continue anticoagulation
[2017-09-27] MEDS ORDERED: WARFARIN NA 2 MG TABLET (UD) PO SCH (14:16)
--- NOTE | 2017-09-27 14:16 | PN ---
Progress Note, Physician Chief Complaint: C/O Diarrhea and feeling weak, no fever or abdominal pain History of Present Illness: 82 y/o woman with a medical history of COPD (O2 dep), CHF, Afib (on Coumadin), HTN, HLD, NIDDM, Hypothyroid, Diabetic Foot Ulcers (wound care). Who presents to the ED from the wound care center for Difficulty breathing x 1 week - Current Medication List Current Medications: Active Medications Albuterol Sulfate (Ventolin 0.083% Nebulizer Soln -) 1 amp NEB Q4H PRN PRN Reason: SHORT OF BREATH/WHEEZING Last Admin: 09/25/17 10:00 Dose: 1 amp Allopurinol (Zyloprim -) 100 mg PO DAILY [facility] Last Admin: 09/27/17 11:15 Dose: 100 mg Arformoterol Tartrate (Brovana (Restricted To Pulmonology/Resp) -) 1 amp NEB RBID [facility] Last Admin: 09/27/17 08:39 Dose: 1 amp Digoxin (Lanoxin -) 0.125 mg PO DAILY [facility] Last Admin: 09/27/17 12:13 Dose: 0.125 mg Diltiazem HCl (Cardizem Cd -) 180 mg PO DAILY [facility] Last Admin: 09/27/17 12:15 Dose: 180 mg Docusate Sodium (Colace -) 100 mg PO BID PRN PRN Reason: CONSTIPATION Furosemide (Lasix -) 40 mg PO BID@0600,1400 [facility] Last Admin: 09/27/17 14:03 Dose: 40 mg Gabapentin (Neurontin -) 100 mg PO BID [facility] Last Admin: 09/27/17 12:12 Dose: 100 mg Glimepiride (Amaryl -) 2 mg PO BIDAC [facility] Last Admin: 09/27/17 06:07 Dose: 2 mg Piperacillin/Tazobactam/Dextrose (Zosyn 4.5gm Ivpb (Premix)) 4.5 gm in 100 mls @ 200 mls/hr IVPB Q8H-IV LYUDMILA PRN Reason: Protocol Last Admin: 09/27/17 12:10 Dose: 200 mls/hr Levothyroxine Sodium (Synthroid -) 50 mcg PO DAILY@0700 [facility] Last Admin: 09/27/17 06:07 Dose: 50 mcg Losartan Potassium (Cozaar -) 25 mg PO DAILY [facility] Last Admin: 09/27/17 12:12 Dose: 25 mg Methylprednisolone Sodium Succinate (Solu-Medrol -) 40 mg IVPUSH Q8H-IV [facility] Last Admin: 09/27/17 10:00 Dose: 40 mg Montelukast Sodium (Singulair -) 10 mg PO HS [facility] Last Admin: 09/26/17 23:10 Dose: 10 mg Pantoprazole Sodium (Protonix -) 40 mg PO DAILY [facility] Last Admin: 09/27/17 12:12 Dose: 40 mg Tiotropium [place] (Spiriva -) 1 puff IH DAILY [facility] Last Admin: 09/27/17 12:09 Dose: 1 inh Warfarin Sodium (Coumadin -) 4 mg PO DAILY@1800 [facility] Last Admin: 09/26/17 17:45 Dose: 4 mg - Objective Vital Signs: Vital Signs Temperature 97.3 F L 09/27/17 06:00 Pulse Rate 80 09/27/17 12:13 Respiratory Rate 18 09/27/17 06:00 Blood Pressure 129/56 09/27/17 06:00 O2 Sat by Pulse Oximetry (%) 98 09/26/17 21:00 Elderly F sick looking c/o diarrhea, watery, no abd pain or SOB> HEENT: Mm moist no anemia, PERRLA EOMI CHEST: Minimal crepts and Whezes CVS: s1S2 Irr no M/rub ABD: Obese, non tender Bs + EXT; B/L LE Swelling , chronic non healing wound, Pulses feeble. 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 W/uu discuss with Pulmonary, afebrile Code(s): J18.9 - PNEUMONIA, UNSPECIFIED ORGANISM Qualifiers: Pneumonia type: due to unspecified organism (3) Hypothyroidism Assessment/Plan: On Levothyroxine F/U TSH Code(s): E03.9 - HYPOTHYROIDISM, UNSPECIFIED (4) HTN (hypertension) Assessment/Plan: Well controlled cont all home meds Code(s): I10 - ESSENTIAL (PRIMARY) HYPERTENSION Qualifiers: Hypertension type: essential hypertension Qualified Code(s): I10 - Essential (primary) hypertension (5) T2DM (type 2 diabetes mellitus) Assessment/Plan: Optimize Glycemic control F/U HBa!C level. Code(s): E11.9 - TYPE 2 DIABETES MELLITUS WITHOUT COMPLICATIONS (6) Acute on chronic diastolic (congestive) heart failure Assessment/Plan: Compensated no active issue Cardiology F/U Code(s): I50.33 - ACUTE ON CHRONIC DIASTOLIC (CONGESTIVE) HEART FAILURE (7) Hypokalemia Assessment/Plan: On diuretics Kcl 40 mg PO F/U BMP and mag level Code(s): E87.6 - HYPOKALEMIA (8) Atrial fibrillation Assessment/Plan: Rate controlled on AC decrese Coumadin dose as INR is 3.7 F/U INR in am Code(s): I48.91 - UNSPECIFIED ATRIAL FIBRILLATION Qualifiers: Atrial fibrillation type: chronic Qualified Code(s): I48.2 - Chronic atrial fibrillation (9) Supratherapeutic INR Assessment/Plan: Decrese Comadin dose to 2.0 mg F/U INR in am Code(s): R79.1 - ABNORMAL COAGULATION PROFILE (10) Diarrhea Assessment/Plan: ON IV abx > 3 episodes F/U Stool C diff now elevated TWBC or abd pain. Code(s): R19.7 - DIARRHEA, UNSPECIFIED
[2017-09-27] MEDS ORDERED: POTASSIUM CHLORIDE ORAL LIQUID 20 MEQ/15 ML PO ONE (15:15)
[2017-09-27 15:49] LABS: MAGNESIUM 2.2 mg/dL (1.8-2.4)
[2017-09-27] MEDS: MONTELUKAST NA 10 MG TABLET PO SCH (23:18)
[2017-09-28] MEDS ORDERED: PT OWN MED DRAWER 7, Y5N ONE ×2 (01:50→05:25)
[2017-09-28] MEDS: ALBUTEROL SO4 0.083% IH SOL 2.5 MG/3 ML VIAL.NEB. NEB PRN (02:13)
[2017-09-28] MEDS: PIPERACILLIN/TAZOB 4.5 GM 4.5 GM/100 ML BAG IVPB SCH ×2 (02:18→11:38)
[2017-09-28] MEDS: methylPREDNISolone NA SUCC 40 MG/1 ML VIAL IVPUSH SCH ×3 (02:18→18:41)
[2017-09-28] MEDS: LEVOTHYROXINE NA 50 MCG TABLET (FP) PO SCH (06:17)
[2017-09-28] MEDS: GLIMEPIRIDE 2 MG TABLET (FP) PO SCH (06:17)
[2017-09-28] MEDS: FUROSEMIDE 40 MG TABLET (FP) PO SCH ×2 (06:17→14:26)
[2017-09-28] MEDS ORDERED: ZOLPIDEM TARTRATE 5 MG TABLET PO PRN (06:38)
[2017-09-28 07:42] LABS: BASO % 0.1 % (0-2.0); HEMATOCRIT 42.1 % (32.4-45.2); HEMOGLOBIN 13.4 GM/dL (10.7-15.3); LYMPH % 4.5 % (8-40); MCHC 31.8 g/dl (32.0-36.0); MEAN CELL VOLUME 81.6 fl (80-96); MEAN PLT VOLUME 7.6 fl (7.5-11.1); MONO % 3.8 % (3.8-10.2); NEUT % 91.6 % (42.8-82.8); PLATELET COUNT 329 K/MM3 (134-434); RBC 5.15 M/mm3 (3.60-5.2); RDW 19.5 % (11.6-15.6); WHITE BLOOD COUNT 9.9 K/mm3 (4.0-10.0)
[2017-09-28 07:55] LABS: PROTHROMBIN TIME (PATIENT) 69.1 SEC (9.98-11.88)
[2017-09-28 08:02] LABS: INR 6.12 (0.82-1.09)
[2017-09-28] MEDS: ARFORMOTEROL TARTRATE 15 MCG/2 ML VIAL NEB SCH ×2 (08:22→20:44)
[2017-09-28 08:23] LABS: ANION GAP 9 (8-16); BLOOD UREA NITROGEN 52 mg/dL (7-18); CALCIUM 8.8 mg/dL (8.5-10.1); CHLORIDE 103 mmol/L (98-107); CO2 32 mmol/L (21-32); CREATININE 1.2 mg/dL (0.55-1.02); SODIUM 144 mmol/L (136-145)
[2017-09-28 08:30] LABS: GLUCOSE,RANDOM 34 mg/dL (74-106); POTASSIUM 2.8 mmol/L (3.5-5.1)
[2017-09-28] MEDS ORDERED: POTASSIUM CHLORIDE 20 MEQ PREMIX IVPB 100 ML IVPB ONE (09:41)
[2017-09-28] MEDS: POTASSIUM CHLORIDE 10 MEQ in SODIUM CHLORIDE 100 ML IVPB SCH ×2 (10:00→11:00)
[2017-09-28] MEDS ORDERED: POTASSIUM CHLORIDE ORAL LIQUID 20 MEQ/15 ML PO SCH (10:00)
[2017-09-28] MEDS: TIOTROPIUM BROMIDE 18 MCG/INH (DEVICE W/ 5 CAPSULES) IH SCH (11:00)
[2017-09-28] MEDS ORDERED: INSULIN (NOVOLOG) ASPART 100 UNITS/ML 10ML VIAL ONE (11:20)
[2017-09-28] MEDS: POTASSIUM CHLORIDE ORAL LIQUID 20 MEQ/15 ML PO SCH (11:26)
[2017-09-28] MEDS: GABAPENTIN 100 MG CAPSULE (FP) PO SCH ×2 (11:27→21:10)
[2017-09-28] MEDS: ALLOPURINOL 100 MG TABLET (FP) PO SCH (11:27)
[2017-09-28] MEDS: DIGOXIN 0.125 MG TABLET (FP) PO SCH (11:27)
[2017-09-28] MEDS: LOSARTAN POTASSIUM 25 MG TABLET PO SCH (11:27)
[2017-09-28] MEDS: PANTOPRAZOLE 40 MG TABLET (FP) PO SCH (11:28)
--- NOTE | 2017-09-28 12:32 | PN ---
Progress Note (short form) - Note Progress Note: PULMONARY Breathing about the same. +cough and wheezing. Dyspneic and coughing with minimal movement. +diarrhea and +C diff Ag. Last Vital Signs Temp Pulse Resp BP Pulse Ox 97.5 F L 88 20 143/71 94 L 09/28/17 05:45 09/28/17 11:27 09/28/17 05:45 09/28/17 05:45 09/27/17 22:00 Gen: tachypneic with speaking Heart: RRR Lung: bilateral rhonchi, wheezes Abd: soft, nontender Ext: chronic changes CBC, BMP 09/28/17 06:00 09/28/17 06:00 Active Medications Albuterol Sulfate (Ventolin 0.083% Nebulizer Soln -) 1 amp NEB Q4H PRN PRN Reason: SHORT OF BREATH/WHEEZING Last Admin: 09/28/17 02:13 Dose: 1 amp Allopurinol (Zyloprim -) 100 mg PO DAILY [facility] Last Admin: 09/28/17 11:27 Dose: 100 mg Arformoterol Tartrate (Brovana (Restricted To Pulmonology/Resp) -) 1 amp NEB RBID [facility] Last Admin: 09/28/17 08:22 Dose: 1 amp Digoxin (Lanoxin -) 0.125 mg PO DAILY [facility] Last Admin: 09/28/17 11:27 Dose: 0.125 mg Diltiazem HCl (Cardizem Cd -) 180 mg PO DAILY [facility] Last Admin: 09/28/17 11:27 Dose: 180 mg Docusate Sodium (Colace -) 100 mg PO BID PRN PRN Reason: CONSTIPATION Furosemide (Lasix -) 40 mg PO BID@0600,1400 [facility] Last Admin: 09/28/17 06:17 Dose: 40 mg Gabapentin (Neurontin -) 100 mg PO BID [facility] Last Admin: 09/28/17 11:27 Dose: 100 mg Glimepiride (Amaryl -) 2 mg PO BIDAC [facility] Last Admin: 09/28/17 06:17 Dose: 2 mg Piperacillin/Tazobactam/Dextrose (Zosyn 4.5gm Ivpb (Premix)) 4.5 gm in 100 mls @ 200 mls/hr IVPB Q8H-IV LYUDMILA PRN Reason: Protocol Last Admin: 09/28/17 11:38 Dose: 200 mls/hr Levothyroxine Sodium (Synthroid -) 50 mcg PO DAILY@0700 [facility] Last Admin: 09/28/17 06:17 Dose: 50 mcg Losartan Potassium (Cozaar -) 25 mg PO DAILY [facility] Last Admin: 09/28/17 11:27 Dose: 25 mg Methylprednisolone Sodium Succinate (Solu-Medrol -) 40 mg IVPUSH Q8H-IV [facility] Last Admin: 09/28/17 11:26 Dose: 40 mg Montelukast Sodium (Singulair -) 10 mg PO HS [facility] Last Admin: 09/27/17 23:18 Dose: 10 mg Pantoprazole Sodium (Protonix -) 40 mg PO DAILY [facility] Last Admin: 09/28/17 11:28 Dose: 40 mg Potassium Chloride (Potassium Chloride Oral Liquid) 40 meq PO DAILY [facility] Last Admin: 09/28/17 11:26 Dose: 40 meq Tiotropium [place] (Spiriva -) 1 puff IH DAILY [facility] Last Admin: 09/28/17 11:00 Dose: 1 inh Zolpidem Tartrate (Ambien -) 5 mg PO HS PRN A/P Acute on Chronic Hypoxic Respiratory Failure Pneumonia Acute COPD Exacerbation Acute on Chronic Diastolic Heart Failure Atrial Fibrillation HTN DM Hypothyroidism - continue antibiotics, can likely de-escalate - f/u cultures - continue medrol at current dose - inhaled bronchodilators - O2 to keep Spo2 >90% - lasix - monitor urine output, creatinine - replete lytes - rate control with digoxin, cardizem - continue anticoagulation
[2017-09-28] MEDS ORDERED: GLIMEPIRIDE 1 MG TABLET (FP) PO SCH (12:41)
--- NOTE | 2017-09-28 12:46 | PN ---
Progress Note, Physician Chief Complaint: Still c/o Diarrhea and feeling weak, no fever or abdominal pain, HS dropped 34 History of Present Illness: 82 y/o woman with a medical history of COPD (O2 dep), CHF, Afib (on Coumadin), HTN, HLD, NIDDM, Hypothyroid, Diabetic Foot Ulcers (wound care). Who presents to the ED from the wound care center for Difficulty breathing x 1 week - Current Medication List Current Medications: Active Medications Albuterol Sulfate (Ventolin 0.083% Nebulizer Soln -) 1 amp NEB Q4H PRN PRN Reason: SHORT OF BREATH/WHEEZING Last Admin: 09/28/17 02:13 Dose: 1 amp Allopurinol (Zyloprim -) 100 mg PO DAILY [facility] Last Admin: 09/28/17 11:27 Dose: 100 mg Arformoterol Tartrate (Brovana (Restricted To Pulmonology/Resp) -) 1 amp NEB RBID [facility] Last Admin: 09/28/17 08:22 Dose: 1 amp Digoxin (Lanoxin -) 0.125 mg PO DAILY [facility] Last Admin: 09/28/17 11:27 Dose: 0.125 mg Diltiazem HCl (Cardizem Cd -) 180 mg PO DAILY [facility] Last Admin: 09/28/17 11:27 Dose: 180 mg Docusate Sodium (Colace -) 100 mg PO BID PRN PRN Reason: CONSTIPATION Furosemide (Lasix -) 40 mg PO BID@0600,1400 [facility] Last Admin: 09/28/17 06:17 Dose: 40 mg Gabapentin (Neurontin -) 100 mg PO BID [facility] Last Admin: 09/28/17 11:27 Dose: 100 mg Glimepiride (Amaryl -) 1 mg PO BIDAC [facility] Piperacillin/Tazobactam/Dextrose (Zosyn 4.5gm Ivpb (Premix)) 4.5 gm in 100 mls @ 200 mls/hr IVPB Q8H-IV LYUDMILA PRN Reason: Protocol Last Admin: 09/28/17 11:38 Dose: 200 mls/hr Levothyroxine Sodium (Synthroid -) 50 mcg PO DAILY@0700 [facility] Last Admin: 09/28/17 06:17 Dose: 50 mcg Losartan Potassium (Cozaar -) 25 mg PO DAILY [facility] Last Admin: 09/28/17 11:27 Dose: 25 mg Methylprednisolone Sodium Succinate (Solu-Medrol -) 40 mg IVPUSH Q8H-IV [facility] Last Admin: 09/28/17 11:26 Dose: 40 mg Montelukast Sodium (Singulair -) 10 mg PO HS [facility] Last Admin: 09/27/17 23:18 Dose: 10 mg Pantoprazole Sodium (Protonix -) 40 mg PO DAILY [facility] Last Admin: 09/28/17 11:28 Dose: 40 mg Potassium Chloride (Potassium Chloride Oral Liquid) 40 meq PO DAILY [facility] Last Admin: 09/28/17 11:26 Dose: 40 meq Tiotropium [place] (Spiriva -) 1 puff IH DAILY [facility] Last Admin: 09/28/17 11:00 Dose: 1 inh Zolpidem Tartrate (Ambien -) 5 mg PO HS PRN - Objective Vital Signs: Vital Signs Temperature 97.5 F L 09/28/17 05:45 Pulse Rate 88 09/28/17 11:27 Respiratory Rate 20 09/28/17 05:45 Blood Pressure 143/71 09/28/17 05:45 O2 Sat by Pulse Oximetry (%) 94 L 09/27/17 22:00 Elderly F c/o diarrhea, watery, no abd pain or SOB> HEENT: Mm moist no anemia, PERRLA EOMI CHEST: Minimal crepts and Whezes CVS: s1S2 Irr no M/rub ABD: Obese, non tender Bs + EXT; B/L LE Swelling , chronic non healing wound, Pulses feeble. 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 W/uu discuss with Pulmonary, afebrile Code(s): J18.9 - PNEUMONIA, UNSPECIFIED ORGANISM Qualifiers: Pneumonia type: due to unspecified organism (3) Hypothyroidism Assessment/Plan: On Levothyroxine F/U TSH Code(s): E03.9 - HYPOTHYROIDISM, UNSPECIFIED (4) HTN (hypertension) Assessment/Plan: Well controlled cont all home meds Code(s): I10 - ESSENTIAL (PRIMARY) HYPERTENSION Qualifiers: Hypertension type: essential hypertension Qualified Code(s): I10 - Essential (primary) hypertension (5) T2DM (type 2 diabetes mellitus) Assessment/Plan: Episode of Hypoglycemia Hold Amary correction dose insulin AC and HS add D5 50 cc/HR with KCL Code(s): E11.9 - TYPE 2 DIABETES MELLITUS WITHOUT COMPLICATIONS (6) Acute on chronic diastolic (congestive) heart failure Assessment/Plan: Compensated no active issue Cardiology F/U Code(s): I50.33 - ACUTE ON CHRONIC DIASTOLIC (CONGESTIVE) HEART FAILURE (7) Hypokalemia Assessment/Plan: K 2.8 On diuretics Kcl 40 mg PO, @0 M EQ IV F/U BMP and mag level Code(s): E87.6 - HYPOKALEMIA (8) Atrial fibrillation Assessment/Plan: Rate controlled on AC decrese Coumadin dose as INR is 3.7 F/U INR in am Code(s): I48.91 - UNSPECIFIED ATRIAL FIBRILLATION Qualifiers: Atrial fibrillation type: chronic Qualified Code(s): I48.2 - Chronic atrial fibrillation (9) Supratherapeutic INR Assessment/Plan: INR 6.4 no active bleeding Hold coumdin F/U INR in am Code(s): R79.1 - ABNORMAL COAGULATION PROFILE (10) Diarrhea Assessment/Plan: ON IV abx > 3 episodes now elevated TWBC or abd pain. C Diff Ag + Toxin -ve will discuss with Id for input. Code(s): R19.7 - DIARRHEA, UNSPECIFIED
--- NOTE | 2017-09-28 12:54 | PN ---
Progress Note, Physician History of Present Illness: Reports breathing improved Less dyspnea/ cough Diarrhea improved Afebrile WBC improved - Current Medication List Current Medications: Active Medications Albuterol Sulfate (Ventolin 0.083% Nebulizer Soln -) 1 amp NEB Q4H PRN PRN Reason: SHORT OF BREATH/WHEEZING Last Admin: 09/28/17 02:13 Dose: 1 amp Allopurinol (Zyloprim -) 100 mg PO DAILY [facility] [place] Last Admin: 09/28/17 11:27 Dose: 100 mg Arformoterol Tartrate (Brovana (Restricted To Pulmonology/Resp) -) 1 amp NEB RBID [facility] [place] Last Admin: 09/28/17 08:22 Dose: 1 amp Digoxin (Lanoxin -) 0.125 mg PO DAILY [facility] [place] Last Admin: 09/28/17 11:27 Dose: 0.125 mg Diltiazem HCl (Cardizem Cd -) 180 mg PO DAILY [facility] [place] Last Admin: 09/28/17 11:27 Dose: 180 mg Docusate Sodium (Colace -) 100 mg PO BID PRN PRN Reason: CONSTIPATION Furosemide (Lasix -) 40 mg PO BID@0600,1400 [facility] [place] Last Admin: 09/28/17 06:17 Dose: 40 mg Gabapentin (Neurontin -) 100 mg PO BID [facility] [place] Last Admin: 09/28/17 11:27 Dose: 100 mg Piperacillin/Tazobactam/Dextrose (Zosyn 4.5gm Ivpb (Premix)) 4.5 gm in 100 mls @ 200 mls/hr IVPB Q8H-IV [facility] PRN Reason: Protocol Last Admin: 09/28/17 11:38 Dose: 200 mls/hr Insulin Aspart (Novolog Vial Sliding Scale -) 1 vial SQ TIDAC [facility] [place] PRN Reason: Protocol Levothyroxine Sodium (Synthroid -) 50 mcg PO DAILY@0700 [facility] [place] Last Admin: 09/28/17 06:17 Dose: 50 mcg Losartan Potassium (Cozaar -) 25 mg PO DAILY [facility] [place] Last Admin: 09/28/17 11:27 Dose: 25 mg Methylprednisolone Sodium Succinate (Solu-Medrol -) 40 mg IVPUSH Q8H-IV [facility] [place] Last Admin: 09/28/17 11:26 Dose: 40 mg Montelukast Sodium (Singulair -) 10 mg PO HS [facility] [place] Last Admin: 09/27/17 23:18 Dose: 10 mg Pantoprazole Sodium (Protonix -) 40 mg PO DAILY [facility] [place] Last Admin: 09/28/17 11:28 Dose: 40 mg Potassium Chloride (Potassium Chloride Oral Liquid) 40 meq PO DAILY [facility] [place] Last Admin: 09/28/17 11:26 Dose: 40 meq Tiotropium [place] (Spiriva -) 1 puff IH DAILY [facility] [place] Last Admin: 09/28/17 11:00 Dose: 1 inh Zolpidem Tartrate (Ambien -) 5 mg PO HS PRN - Objective Vital Signs: Vital Signs Temperature 97.5 F L 09/28/17 05:45 Pulse Rate 88 09/28/17 11:27 Respiratory Rate 20 09/28/17 05:45 Blood Pressure 143/71 09/28/17 05:45 O2 Sat by Pulse Oximetry (%) 94 L 09/27/17 22:00 Constitutional: Yes: No Distress, Obese Eyes: Yes: Conjunctiva Clear Cardiovascular: Yes: Regular Rate and Rhythm, S1, S2 Respiratory: Yes: Rhonchi Gastrointestinal: Yes: Normal Bowel Sounds, Soft, Abdomen, Obese. No: Tenderness Edema: Yes Edema: LLE: 2+, RLE: 2+ Integumentary: Yes: Venous Stasis Changes Labs: CBC, BMP 09/28/17 06:00 09/28/17 06:00 INR, PTT INR 6.12 (0.82-1.09) H* D 09/28/17 06:00 Assessment/Plan Exacerbation COPD RLL pneumonia + Cdifficile Chronic venous stasis dermatitis Will D/C zosyn, substitute ceftriaxone P.O. Flagyl for C difficile
--- NOTE | 2017-09-28 13:24 | PN ---
Progress Note (short form) - Note Progress Note: Chief Complaint: Events noted, notes reviewed. Denies any chest pain but reports persistent dyspnea and cough productive of clear sputum, although improving History of Present Illness: Seen and examined. Events noted, notes reviewed. Denies any chest pain but reports persistent dyspnea and cough productive of clear sputum, although improving Complaining of being tired related to lack of sleep last night Medications: Current Medications Albuterol Sulfate (Ventolin 0.083% Nebulizer Soln -) 1 amp NEB Q4H PRN PRN Reason: SHORT OF BREATH/WHEEZING Last Admin: 09/28/17 02:13 Dose: 1 amp Allopurinol (Zyloprim -) 100 mg PO DAILY [facility] Last Admin: 09/28/17 11:27 Dose: 100 mg Arformoterol Tartrate (Brovana (Restricted To Pulmonology/Resp) -) 1 amp NEB RBID [facility] Last Admin: 09/28/17 08:22 Dose: 1 amp Digoxin (Lanoxin -) 0.125 mg PO DAILY [facility] Last Admin: 09/28/17 11:27 Dose: 0.125 mg Diltiazem HCl (Cardizem Cd -) 180 mg PO DAILY [facility] Last Admin: 09/28/17 11:27 Dose: 180 mg Docusate Sodium (Colace -) 100 mg PO BID PRN PRN Reason: CONSTIPATION Furosemide (Lasix -) 40 mg PO BID@0600,1400 [facility] Last Admin: 09/28/17 06:17 Dose: 40 mg Gabapentin (Neurontin -) 100 mg PO BID [facility] Last Admin: 09/28/17 11:27 Dose: 100 mg Dextrose (D5w -) 1,000 mls @ 50 mls/hr IV Q20H [facility] CEFTRIAXONE 1 G/50 ML PREMIX (Ceftriaxone 1 Gm-D5w Bag) 50 mls @ 100 mls/hr IVPB DAILY [facility] Insulin Aspart (Novolog Vial Sliding Scale -) 1 vial SQ TIDAC [facility] PRN Reason: Protocol Levothyroxine Sodium (Synthroid -) 50 mcg PO DAILY@0700 [facility] Last Admin: 09/28/17 06:17 Dose: 50 mcg Losartan Potassium (Cozaar -) 25 mg PO DAILY [facility] Last Admin: 09/28/17 11:27 Dose: 25 mg Methylprednisolone Sodium Succinate (Solu-Medrol -) 40 mg IVPUSH Q8H-IV [facility] Last Admin: 09/28/17 11:26 Dose: 40 mg Metronidazole (Flagyl -) 500 mg PO TID [facility] Montelukast Sodium (Singulair -) 10 mg PO HS [facility] Last Admin: 09/27/17 23:18 Dose: 10 mg Pantoprazole Sodium (Protonix -) 40 mg PO DAILY [facility] Last Admin: 09/28/17 11:28 Dose: 40 mg Potassium Chloride (Potassium Chloride Oral Liquid) 40 meq PO DAILY [facility] Last Admin: 09/28/17 11:26 Dose: 40 meq Tiotropium [place] (Spiriva -) 1 puff IH DAILY [facility] Last Admin: 09/28/17 11:00 Dose: 1 inh Zolpidem Tartrate (Ambien -) 5 mg PO HS PRN Vital Signs: Last Vital Signs Temp Pulse Resp BP Pulse Ox 97.5 F L 88 20 143/71 94 L 09/28/17 05:45 09/28/17 11:27 09/28/17 05:45 09/28/17 05:45 09/27/17 22:00 Intake & Output 09/25/17 09/26/17 09/27/17 09/28/17 23:59 23:59 23:59 23:59 Intake Total 650 450 600 400 Balance 650 450 600 400 Weight 287 lb 6.4 oz Neck: Supple Negative JVD No Bruit Respiratory: Diminished Breath Sounds at the Bases Bilateral Scattered Rhonchi Cardiovascular: S1 S2 Irregularly Irregular Gastrointestinal: Soft Benign Normal Bowel Sounds Ext: Edema Labs: CBC, BMP 09/28/17 06:00 09/28/17 06:00 INR, PTT INR 6.12 (0.82-1.09) H* D 09/28/17 06:00 Assessment/Plan ASSESSMENT: 1. Acute on chronic hypoxemic respiratory failure related to exacerbation of reactive airway disease/COPD, resolving 2. Diastolic LV dysfunction with chronic class I-II NYHA classification LV congestive heart failure, resolving 3. CAD angina pectoris, stable 4. Permanent atrial fibrillation [id number] score of 7 on Coumadin, supra- therapeutic INR rising INR, possible drug interaction 5. HTN/hypertensive cardiovascular disease 6. DM, hypoglycemia 7. Hypothyroidism 8. CKD 9. 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 History of DVT 11. Chronic venous stasis 12. Hypokalemia PLAN: 1. Continue Cardizem CD 2. Continue Digoxin with caution and close monitoring of Digoxin level 3. Continue Lasix with close monitoring of renal function 4. Continue Cozaar with close monitoring of renal function 5. A/C with Coumadin as per INR, hold today 6. Correction of Hypokalemia Andrew Vines MD
[2017-09-28] MEDS: CEFTRIAXONE 1 G/50 ML PREMIX 50 ML IVPB SCH (14:26)
[2017-09-28] MEDS: metroNIDAZOLE 250 MG TABLET PO SCH ×2 (14:26→21:09)
[2017-09-28] MEDS: DEXTROSE 5%-WATER - 1,000 ML IV SCH (14:28)
[2017-09-28] MEDS: INSULIN SLIDING SCALE (NOVOLOG) 1 VIAL SQ SCH (17:20)
[2017-09-28 17:59] LABS: MAGNESIUM 2.1 mg/dL (1.8-2.4)
[2017-09-28] MEDS: MONTELUKAST NA 10 MG TABLET PO SCH (21:10)
[2017-09-29] MEDS: methylPREDNISolone NA SUCC 40 MG/1 ML VIAL IVPUSH SCH ×4 (02:14→22:21)
[2017-09-29] MEDS: INSULIN SLIDING SCALE (NOVOLOG) 1 VIAL SQ SCH ×3 (06:26→22:21)
[2017-09-29] MEDS: LEVOTHYROXINE NA 50 MCG TABLET (FP) PO SCH (06:28)
[2017-09-29] MEDS: metroNIDAZOLE 250 MG TABLET PO SCH ×2 (06:29→13:52)
[2017-09-29] MEDS: FUROSEMIDE 40 MG TABLET (FP) PO SCH ×2 (06:29→10:25)
[2017-09-29 08:09] LABS: PROTHROMBIN TIME (PATIENT) 95.3 SEC (9.98-11.88)
[2017-09-29 08:14] LABS: INR 8.43 (0.82-1.09)
[2017-09-29 08:24] LABS: CHLORIDE 106 mmol/L (98-107); SODIUM 145 mmol/L (136-145)
[2017-09-29] MEDS: ARFORMOTEROL TARTRATE 15 MCG/2 ML VIAL NEB SCH ×2 (08:29→20:40)
[2017-09-29 08:34] LABS: ANION GAP 11 (8-16); BLOOD UREA NITROGEN 38 mg/dL (7-18); CALCIUM 8.8 mg/dL (8.5-10.1); CO2 28 mmol/L (21-32); CREATININE 0.9 mg/dL (0.55-1.02)
[2017-09-29 08:36] LABS: BASO % 0.2 % (0-2.0); MCH 24.9 pg (25.7-33.7); MCHC 30.3 g/dl (32.0-36.0); MEAN PLT VOLUME 7.7 fl (7.5-11.1); MONO % 3.4 % (3.8-10.2); NEUT % 94.4 % (42.8-82.8); PLATELET COUNT 358 K/MM3 (134-434); RDW 19.4 % (11.6-15.6); WHITE BLOOD COUNT 12.9 K/mm3 (4.0-10.0)
[2017-09-29 08:44] LABS: HEMATOCRIT 44.6 % (32.4-45.2); HEMOGLOBIN 13.6 GM/dL (10.7-15.3)
[2017-09-29 08:55] LABS: GLUCOSE,RANDOM 24 mg/dL (74-106)
[2017-09-29 08:56] LABS: POTASSIUM 2.6 mmol/L (3.5-5.1)
--- NOTE | 2017-09-29 09:48 | PN ---
Progress Note, Physician History of Present Illness: Dyspnea and non-productive cough slowly improving. Reports diarrhea resolving. - Current Medication List Current Medications: Active Medications Albuterol Sulfate (Ventolin 0.083% Nebulizer Soln -) 1 amp NEB Q4H PRN PRN Reason: SHORT OF BREATH/WHEEZING Last Admin: 09/28/17 02:13 Dose: 1 amp Allopurinol (Zyloprim -) 100 mg PO DAILY [facility] Last Admin: 09/28/17 11:27 Dose: 100 mg Arformoterol Tartrate (Brovana (Restricted To Pulmonology/Resp) -) 1 amp NEB RBID [facility] Last Admin: 09/29/17 08:29 Dose: 1 amp Digoxin (Lanoxin -) 0.125 mg PO DAILY [facility] Last Admin: 09/28/17 11:27 Dose: 0.125 mg Diltiazem HCl (Cardizem Cd -) 180 mg PO DAILY [facility] Last Admin: 09/28/17 11:27 Dose: 180 mg Docusate Sodium (Colace -) 100 mg PO BID PRN PRN Reason: CONSTIPATION Furosemide (Lasix -) 40 mg PO BID@0600,1400 [facility] Last Admin: 09/29/17 06:29 Dose: 40 mg Gabapentin (Neurontin -) 100 mg PO BID [facility] Last Admin: 09/28/17 21:10 Dose: 100 mg Dextrose (D5w -) 1,000 mls @ 50 mls/hr IV Q20H [facility] Last Admin: 09/28/17 14:28 Dose: 50 mls/hr CEFTRIAXONE 1 G/50 ML PREMIX (Ceftriaxone 1 Gm-D5w Bag) 50 mls @ 100 mls/hr IVPB DAILY [facility] Last Admin: 09/28/17 14:26 Dose: 100 mls/hr Insulin Aspart (Novolog Vial Sliding Scale -) 1 vial SQ TIDAC [facility] PRN Reason: Protocol Last Admin: 09/29/17 06:26 Dose: Not Given Levothyroxine Sodium (Synthroid -) 50 mcg PO DAILY@0700 [facility] Last Admin: 09/29/17 06:28 Dose: 50 mcg Losartan Potassium (Cozaar -) 25 mg PO DAILY [facility] Last Admin: 09/28/17 11:27 Dose: 25 mg Methylprednisolone Sodium Succinate (Solu-Medrol -) 40 mg IVPUSH Q8H-IV [facility] Last Admin: 09/29/17 02:14 Dose: 40 mg Metronidazole (Flagyl -) 500 mg PO TID [facility] Last Admin: 09/29/17 06:29 Dose: 500 mg Montelukast Sodium (Singulair -) 10 mg PO HS [facility] Last Admin: 09/28/17 21:10 Dose: 10 mg Pantoprazole Sodium (Protonix -) 40 mg PO DAILY [facility] Last Admin: 09/28/17 11:28 Dose: 40 mg Potassium Chloride (Potassium Chloride Oral Liquid) 40 meq PO DAILY [facility] Last Admin: 09/28/17 11:26 Dose: 40 meq Tiotropium [place] (Spiriva -) 1 puff IH DAILY [facility] Last Admin: 09/28/17 11:00 Dose: 1 inh Zolpidem Tartrate (Ambien -) 5 mg PO HS PRN Last Admin: 09/28/17 23:02 Dose: 5 mg - Objective Vital Signs: Vital Signs Temperature 97.3 F L 09/29/17 06:00 Pulse Rate 94 H 09/29/17 06:00 Respiratory Rate 20 09/29/17 06:00 Blood Pressure 131/71 09/29/17 06:00 O2 Sat by Pulse Oximetry (%) 95 09/28/17 21:13 Constitutional: Yes: No Distress, Calm Neck: Yes: Supple Cardiovascular: Yes: Regular Rate and Rhythm Respiratory: Yes: Regular, Diminished Gastrointestinal: Yes: Normal Bowel Sounds, Soft, Abdomen, Obese Edema: Yes Edema: LLE: Trace, RLE: Trace Integumentary: Yes: Venous Stasis Changes Labs: CBC, BMP 09/29/17 06:00 09/29/17 06:00 INR, PTT INR 8.43 (0.82-1.09) H* D 09/29/17 06:00 Problem List - Problems (1) Acute on chronic diastolic (congestive) heart failure Code(s): I50.33 - ACUTE ON CHRONIC DIASTOLIC (CONGESTIVE) HEART FAILURE (2) Acute on chronic respiratory failure with hypoxia and hypercapnia Code(s): J96.21 - ACUTE AND CHRONIC RESPIRATORY FAILURE WITH HYPOXIA; J96.22 - ACUTE AND CHRONIC RESPIRATORY FAILURE WITH HYPERCAPNIA (3) COPD (chronic obstructive pulmonary disease) Code(s): J44.9 - CHRONIC OBSTRUCTIVE PULMONARY DISEASE, UNSPECIFIED Qualifiers: COPD type: unspecified COPD Qualified Code(s): J44.9 - Chronic obstructive pulmonary disease, unspecified (4) Pneumonia Code(s): J18.9 - PNEUMONIA, UNSPECIFIED ORGANISM Qualifiers: Pneumonia type: due to unspecified organism (5) Atrial fibrillation Code(s): I48.91 - UNSPECIFIED ATRIAL FIBRILLATION Qualifiers: Atrial fibrillation type: chronic Qualified Code(s): I48.2 - Chronic atrial fibrillation (6) Chronic venous stasis dermatitis of both lower extremities Code(s): I87.2 - VENOUS INSUFFICIENCY (CHRONIC) (PERIPHERAL) (7) Diabetes Code(s): E11.9 - TYPE 2 DIABETES MELLITUS WITHOUT COMPLICATIONS Qualifiers: Diabetes mellitus type: type 2 Diabetes mellitus complication status: with hyperglycemia Diabetes mellitus fpc insulin use: without petroleum terminal plant operator use Qualified Code(s): E11.65 - Type 2 diabetes mellitus with hyperglycemia (8) HTN (hypertension) Code(s): I10 - ESSENTIAL (PRIMARY) HYPERTENSION Qualifiers: Hypertension type: essential hypertension Qualified Code(s): I10 - Essential (primary) hypertension (9) Morbid obesity with BMI of 45.0-49.9, adult Code(s): E66.01 - MORBID (SEVERE) OBESITY DUE TO EXCESS CALORIES; Z68.42 - BODY MASS INDEX (BMI) 45.0-49.9, ADULT (10) Hypothyroidism Code(s): E03.9 - HYPOTHYROIDISM, UNSPECIFIED (11) Chronic anticoagulation Code(s): Z79.01 - BILINGUAL SPEECH LANGUAGE PATHOLOGIST (CURRENT) USE OF ANTICOAGULANTS (12) Clostridium difficile colitis Code(s): A04.72 - ENTEROCOLITIS D/T CLOSTRIDIUM DIFFICILE, NOT SPCF RECUR Assessment/Plan 1. Acute on chronic hypoxemic respiratory failure related to exacerbation of reactive airway disease/COPD, resolving 2. Diastolic LV dysfunction with chronic class I-II NYHA classification LV congestive heart failure, resolving 3. CAD angina pectoris, stable 4. Permanent atrial fibrillation [id number] score of 7 on Coumadin, supratherapeutic INR rising INR, possible drug interaction 5. HTN/hypertensive cardiovascular disease 6. DM, hypoglycemia 7. Hypothyroidism 8. CKD 9. 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 History of DVT 11. Chronic venous stasis 12. Hypokalemia 13. c. difficile colitis PLAN: 1. Continue Cardizem CD 180 qd 2. Continue Digoxin 0.125 qd with caution and close monitoring of Digoxin level 3. Decrease Lasix 40 qd with close monitoring of renal function and electrolytes 4. Continue Cozaar 25 qd with close monitoring of renal function 5. Hold A/C with Coumadin as per INR 6. Correction of Hypokalemia 7. Oral Flagy course, complete rocephin course 8. BD, Singulair, IV steroid taper with GI protection, O2 as needed
[2017-09-29] MEDS: TIOTROPIUM BROMIDE 18 MCG/INH (DEVICE W/ 5 CAPSULES) IH SCH (10:00)
[2017-09-29] MEDS ORDERED: POTASSIUM CHLORIDE ORAL LIQUID 20 MEQ/15 ML PO ONE (10:15)
[2017-09-29] MEDS: GABAPENTIN 100 MG CAPSULE (FP) PO SCH ×2 (10:24→22:19)
[2017-09-29] MEDS: LOSARTAN POTASSIUM 25 MG TABLET PO SCH (10:25)
[2017-09-29] MEDS: PANTOPRAZOLE 40 MG TABLET (FP) PO SCH (10:25)
[2017-09-29] MEDS: DIGOXIN 0.125 MG TABLET (FP) PO SCH (10:25)
[2017-09-29] MEDS: ALLOPURINOL 100 MG TABLET (FP) PO SCH (10:25)
[2017-09-29] MEDS: CEFTRIAXONE 1 G/50 ML PREMIX 50 ML IVPB SCH (10:26)
[2017-09-29] MEDS: POTASSIUM CHLORIDE ORAL LIQUID 20 MEQ/15 ML PO SCH (11:00)
[2017-09-29] MEDS ORDERED: ALBUTEROL SO4 0.083% IH SOL 2.5 MG/3 ML VIAL.NEB. NEB ONE (11:07)
[2017-09-29] MEDS ORDERED: POTASSIUM CHLORIDE 20 MEQ PREMIX IVPB 100 ML IVPB ONE (11:53)
[2017-09-29] MEDS ORDERED: PHYTONADIONE 5 MG TABLET PO ONE (11:56)
--- NOTE | 2017-09-29 12:00 | PN ---
Progress Note (short form) - Note Progress Note: Patient laying in bed still somewhat sleepy. Had an Ambien last kurt. Will D/C. Compared to my last visit on Friday she has developed watery diarrhea from C. Diff and markedly high INR and low Potassium of 2.6. She is off Coumadin. She received a total of 40 meq of oral KCL so far today and since she may absorb that well due to her watery diarrhea I will add KCL IV 10meq X 2. Will follow INR as no bleeding currently; this was probably worsened by flagyl. Also hypoglycemic and now on IV Glucose. Knee pain especially when turning or OOB. On Exam: Vital Signs Temp 97.3 F L 09/29/17 06:00 Pulse 81 09/29/17 10:25 Resp 20 09/29/17 06:00 BP 131/71 09/29/17 06:00 Pulse Ox 95 09/28/17 21:13 Intake & Output 09/28/17 09/28/17 09/29/17 11:59 23:59 11:59 Intake Total 400 500 550 Balance 400 500 550 Intake: IV 550 D5w - 1,000 ml @ 50 mls/ 550 hr IV Q20H [facility] Rx#: [id number] IVPB 100 Oral 300 500 Other: Voiding Method Toilet Toilet Toilet # Unmeasured Voids Void 2 2 Bowel Movement Yes No # Bowel Movements 1 Sleepy but became alert quickly Tongue: slightly coated Chest: Bilateral wheezes; some rhonchi Abd: Nontender but increased bowel sounds Ext: Chronic stasis changes; no edema; old dry scab left heel Cor: Irregular Abnormal Lab Results 09/28/17 09/29/17 09/29/17 06:00 06:00 06:00 WBC 12.9 H D RBC 5.40 H MCH 24.9 L MCHC 30.3 L RDW 19.4 H Neutrophils % 94.4 H Lymphocytes % 2.0 L D Monocytes % 3.4 L PT with INR 95.30 H INR 8.43 H* D Potassium 2.8 L* BUN 52 H Creatinine 1.2 H Random Glucose 34 L* Hemoglobin A1c % 09/29/17 09/29/17 06:00 06:00 WBC RBC MCH MCHC RDW Neutrophils % Lymphocytes % Monocytes % PT with INR INR Potassium 2.6 L* BUN 38 H Creatinine Random Glucose 24 L* Hemoglobin A1c % 7.9 H D IMP: Acute Exacerbation of COPD Acute on Chronic CHF resolving Hypokalemia C. Difficile diarrhea hypoglycemia High INR Abdominal Pannus Healed scab left heel DM type 2. 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
--- NOTE | 2017-09-29 12:03 | PN ---
Progress Note, Physician Chief Complaint: Diarrhea has improved feeling weak, no fever or abdominal pain, HS dropped 29 History of Present Illness: 82 y/o woman with a medical history of COPD (O2 dep), CHF, Afib (on Coumadin), HTN, HLD, NIDDM, Hypothyroid, Diabetic Foot Ulcers (wound care). Who presents to the ED from the wound care center for Difficulty breathing x 1 week - Current Medication List Current Medications: Active Medications Albuterol Sulfate (Ventolin 0.083% Nebulizer Soln -) 1 amp NEB Q4H PRN PRN Reason: SHORT OF BREATH/WHEEZING Last Admin: 09/28/17 02:13 Dose: 1 amp Allopurinol (Zyloprim -) 100 mg PO DAILY [facility] Last Admin: 09/29/17 10:25 Dose: 100 mg Arformoterol Tartrate (Brovana (Restricted To Pulmonology/Resp) -) 1 amp NEB RBID [facility] Last Admin: 09/29/17 08:29 Dose: 1 amp Digoxin (Lanoxin -) 0.125 mg PO DAILY [facility] Last Admin: 09/29/17 10:25 Dose: 0.125 mg Diltiazem HCl (Cardizem Cd -) 180 mg PO DAILY [facility] Last Admin: 09/29/17 10:25 Dose: 180 mg Docusate Sodium (Colace -) 100 mg PO BID PRN PRN Reason: CONSTIPATION Furosemide (Lasix -) 40 mg PO DAILY [facility] Last Admin: 09/29/17 10:25 Dose: 40 mg Gabapentin (Neurontin -) 100 mg PO BID [facility] Last Admin: 09/29/17 10:24 Dose: 100 mg Dextrose (D5w -) 1,000 mls @ 50 mls/hr IV Q20H [facility] Last Admin: 09/28/17 14:28 Dose: 50 mls/hr CEFTRIAXONE 1 G/50 ML PREMIX (Ceftriaxone 1 Gm-D5w Bag) 50 mls @ 100 mls/hr IVPB DAILY [facility] Last Admin: 09/29/17 10:26 Dose: 100 mls/hr Potassium Chloride 10 meq/ (Sodium Chloride) 105 mls @ 100 mls/hr IVPB Q60M [facility] Stop: 09/29/17 13:29 Insulin Aspart (Novolog Vial Sliding Scale -) 1 vial SQ TIDAC [facility] PRN Reason: Protocol Levothyroxine Sodium (Synthroid -) 50 mcg PO DAILY@0700 [facility] Last Admin: 09/29/17 06:28 Dose: 50 mcg Losartan Potassium (Cozaar -) 25 mg PO DAILY [facility] Last Admin: 09/29/17 10:25 Dose: 25 mg Methylprednisolone Sodium Succinate (Solu-Medrol -) 40 mg IVPUSH Q8H-IV [facility] Last Admin: 09/29/17 10:25 Dose: 40 mg Metronidazole (Flagyl -) 500 mg PO TID [facility] Last Admin: 09/29/17 06:29 Dose: 500 mg Montelukast Sodium (Singulair -) 10 mg PO HS [facility] Last Admin: 09/28/17 21:10 Dose: 10 mg Oxycodone HCl (Roxicodone -) 5 mg PO Q12H PRN PRN Reason: PAIN LEVEL 1-5 Pantoprazole Sodium (Protonix -) 40 mg PO DAILY [facility] Last Admin: 09/29/17 10:25 Dose: 40 mg Phytonadione (Mephyton -) 2.5 mg PO ONCE ONE Stop: 09/29/17 11:57 Potassium Chloride (Potassium Chloride Oral Liquid) 40 meq PO DAILY [facility] Last Admin: 09/28/17 11:26 Dose: 40 meq Potassium Chloride (Potassium Chloride 20 Meq Premix Ivpb -) 20 meq IVPB ONCE ONE Stop: 09/29/17 11:54 Tiotropium [place] (Spiriva -) 1 puff IH DAILY [facility] Last Admin: 09/28/17 11:00 Dose: 1 inh - Objective Vital Signs: Vital Signs Temperature 97.3 F L 09/29/17 06:00 Pulse Rate 81 09/29/17 10:25 Respiratory Rate 20 09/29/17 06:00 Blood Pressure 131/71 09/29/17 06:00 O2 Sat by Pulse Oximetry (%) 95 09/28/17 21:13 Elderly F c/o diarrhea, watery, no abd pain or SOB> HEENT: Mm moist no anemia, PERRLA EOMI CHEST: Minimal crepts and Whezes CVS: s1S2 Irr no M/rub ABD: Obese, non tender Bs + EXT; B/L LE Swelling , chronic non healing wound, Pulses feeble. 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 Code(s): J18.9 - PNEUMONIA, UNSPECIFIED ORGANISM (3) Hypothyroidism Assessment/Plan: On Levothyroxine F/U TSH Code(s): E03.9 - HYPOTHYROIDISM, UNSPECIFIED (4) HTN (hypertension) Assessment/Plan: Well controlled cont all home meds Code(s): I10 - ESSENTIAL (PRIMARY) HYPERTENSION Qualifiers: Qualified Code(s): I10 - Essential (primary) hypertension (5) T2DM (type 2 diabetes mellitus) Assessment/Plan: Episode of Hypoglycemia off Amary correction dose insulin AC and HS add D5 75 cc/HR with KCL Code(s): E11.9 - TYPE 2 DIABETES MELLITUS WITHOUT COMPLICATIONS (6) Acute on chronic diastolic (congestive) heart failure Assessment/Plan: Compensated no active issue Cardiology F/U Code(s): I50.33 - ACUTE ON CHRONIC DIASTOLIC (CONGESTIVE) HEART FAILURE (7) Hypokalemia Assessment/Plan: K 2.6 On diuretics Kcl 40 mg PO, 20 M EQ IV F/U BMP and mag level Code(s): E87.6 - HYPOKALEMIA (8) Atrial fibrillation Assessment/Plan: Rate controlled on AC off Coumadin dose as INR is 8.4 F/U , small dose of Vit K 2.5 mg PO F/UINR in am Code(s): I48.91 - UNSPECIFIED ATRIAL FIBRILLATION Qualifiers: Qualified Code(s): I48.2 - Chronic atrial fibrillation (9) Supratherapeutic INR Assessment/Plan: INR 8.4 no active bleeding Coumadin on Hold Low dose Vit K 2.5 mg PO F/U INR in am Code(s): R79.1 - ABNORMAL COAGULATION PROFILE (10) Diarrhea Assessment/Plan: resolved on Flagyl now elevated TWBC or abd pain. C Diff Ag + Toxin -ve. Code(s): R19.7 - DIARRHEA, UNSPECIFIED
--- NOTE | 2017-09-29 12:38 | PN ---
Progress Note (short form) - Note Progress Note: Breathing about the same. Still with some congested cough. No CP. (+) Diarrhea Intake & Output 09/26/17 09/27/17 09/28/17 09/29/17 23:59 23:59 23:59 23:59 Intake Total 450 600 900 550 Balance 450 600 900 550 Last Vital Signs Temp Pulse Resp BP Pulse Ox 97.3 F L 81 20 131/71 95 09/29/17 06:00 09/29/17 10:25 09/29/17 06:00 09/29/17 06:00 09/28/17 21:13 Active Medications Albuterol Sulfate (Ventolin 0.083% Nebulizer Soln -) 1 amp NEB Q4H PRN PRN Reason: SHORT OF BREATH/WHEEZING Last Admin: 09/28/17 02:13 Dose: 1 amp Allopurinol (Zyloprim -) 100 mg PO DAILY [facility] Last Admin: 09/29/17 10:25 Dose: 100 mg Arformoterol Tartrate (Brovana (Restricted To Pulmonology/Resp) -) 1 amp NEB RBID [facility] Last Admin: 09/29/17 08:29 Dose: 1 amp Digoxin (Lanoxin -) 0.125 mg PO DAILY [facility] Last Admin: 09/29/17 10:25 Dose: 0.125 mg Diltiazem HCl (Cardizem Cd -) 180 mg PO DAILY [facility] Last Admin: 09/29/17 10:25 Dose: 180 mg Furosemide (Lasix -) 40 mg PO DAILY [facility] Last Admin: 09/29/17 10:25 Dose: 40 mg Gabapentin (Neurontin -) 100 mg PO BID [facility] Last Admin: 09/29/17 10:24 Dose: 100 mg Dextrose (D5w -) 1,000 mls @ 50 mls/hr IV Q20H [facility] Last Admin: 09/28/17 14:28 Dose: 50 mls/hr CEFTRIAXONE 1 G/50 ML PREMIX (Ceftriaxone 1 Gm-D5w Bag) 50 mls @ 100 mls/hr IVPB DAILY [facility] Last Admin: 09/29/17 10:26 Dose: 100 mls/hr Potassium Chloride 10 meq/ (Sodium Chloride) 105 mls @ 100 mls/hr IVPB Q60M [facility] Stop: 09/29/17 13:29 Potassium Chloride 10 meq/ (Sodium Chloride) 105 mls @ 105 mls/hr IVPB Q1H [facility] Stop: 09/29/17 14:14 Insulin Aspart (Novolog Vial Sliding Scale -) 1 vial SQ TIDAC [facility] PRN Reason: Protocol Levothyroxine Sodium (Synthroid -) 50 mcg PO DAILY@0700 [facility] Last Admin: 09/29/17 06:28 Dose: 50 mcg Losartan Potassium (Cozaar -) 25 mg PO DAILY [facility] Last Admin: 09/29/17 10:25 Dose: 25 mg Methylprednisolone Sodium Succinate (Solu-Medrol -) 40 mg IVPUSH Q8H-IV [facility] Last Admin: 09/29/17 10:25 Dose: 40 mg Metronidazole (Flagyl -) 500 mg PO TID [facility] Last Admin: 09/29/17 06:29 Dose: 500 mg Montelukast Sodium (Singulair -) 10 mg PO HS [facility] Last Admin: 09/28/17 21:10 Dose: 10 mg Oxycodone HCl (Roxicodone -) 5 mg PO Q12H PRN PRN Reason: PAIN LEVEL 1-5 Pantoprazole Sodium (Protonix -) 40 mg PO DAILY [facility] Last Admin: 09/29/17 10:25 Dose: 40 mg Potassium Chloride (Potassium Chloride Oral Liquid) 40 meq PO DAILY [facility] Last Admin: 09/28/17 11:26 Dose: 40 meq Tiotropium [place] (Spiriva -) 1 puff IH DAILY [facility] Last Admin: 09/28/17 11:00 Dose: 1 inh Gen: Mildly tachypneic with speaking Heart: RRR Lung: bilateral rhonchi, no wheezes Abd: soft, nontender Ext: chronic changes Laboratory Results - last 24 hr 09/28/17 09/28/17 09/28/17 06:00 11:36 12:17 WBC RBC Hgb Hct MCV MCH MCHC RDW Plt Count MPV Neutrophils % Lymphocytes % Monocytes % Eosinophils % Basophils % PT with INR INR Sodium 144 Potassium 2.8 L* Chloride 103 Carbon Dioxide 32 Anion Gap 9 BUN 52 H Creatinine 1.2 H POC Glucometer 42 49 Random Glucose 34 L* Hemoglobin A1c % Calcium 8.8 Magnesium 2.1 09/28/17 09/28/17 09/28/17 17:19 18:40 19:35 WBC RBC Hgb Hct MCV MCH MCHC RDW Plt Count MPV Neutrophils % Lymphocytes % Monocytes % Eosinophils % Basophils % PT with INR INR Sodium Potassium Chloride Carbon Dioxide Anion Gap BUN Creatinine POC Glucometer 42 53 45 Random Glucose Hemoglobin A1c % Calcium Magnesium 09/28/17 09/28/17 09/29/17 21:04 23:01 06:00 WBC 12.9 H D RBC 5.40 H Hgb 13.6 Hct 44.6 MCV 82.0 MCH 24.9 L MCHC 30.3 L RDW 19.4 H Plt Count 358 MPV 7.7 Neutrophils % 94.4 H Lymphocytes % 2.0 L D Monocytes % 3.4 L Eosinophils % 0.0 Basophils % 0.2 PT with INR INR Sodium Potassium Chloride Carbon Dioxide Anion Gap BUN Creatinine POC Glucometer 51 111 Random Glucose Hemoglobin A1c % Calcium Magnesium 09/29/17 09/29/17 09/29/17 06:00 06:00 06:00 WBC RBC Hgb Hct MCV MCH MCHC RDW Plt Count MPV Neutrophils % Lymphocytes % Monocytes % Eosinophils % Basophils % PT with INR 95.30 H INR 8.43 H* D Sodium 145 Potassium 2.6 L* Chloride 106 Carbon Dioxide 28 Anion Gap 11 BUN 38 H Creatinine 0.9 POC Glucometer Random Glucose 24 L* Hemoglobin A1c % 7.9 H D Calcium 8.8 Magnesium 09/29/17 09/29/17 09/29/17 06:18 06:38 08:46 WBC RBC Hgb Hct MCV MCH MCHC RDW Plt Count MPV Neutrophils % Lymphocytes % Monocytes % Eosinophils % Basophils % PT with INR INR Sodium Potassium Chloride Carbon Dioxide Anion Gap BUN Creatinine POC Glucometer 29 62 72 Random Glucose Hemoglobin A1c % Calcium Magnesium 09/29/17 09/29/17 11:03 11:31 WBC RBC Hgb Hct MCV MCH MCHC RDW Plt Count MPV Neutrophils % Lymphocytes % Monocytes % Eosinophils % Basophils % PT with INR INR Sodium Potassium Chloride Carbon Dioxide Anion Gap BUN Creatinine POC Glucometer 63 Random Glucose Hemoglobin A1c % Calcium Magnesium Cancelled A/P Acute on Chronic Hypoxic Respiratory Failure Pneumonia Acute COPD Exacerbation Acute on Chronic Diastolic Heart Failure Atrial Fibrillation HTN DM Hypothyroidism - ABX - Taper Medrol - inhaled bronchodilators - Spiriva - Brovana BID - O2 to keep Spo2 >90% - lasix - monitor urine output, creatinine - replete lytes - rate control with digoxin, cardizem - continue anticoagulation Dr Alcala
[2017-09-29 12:43] LABS: MAGNESIUM 2.3 mg/dL (1.8-2.4)
[2017-09-29] MEDS: POTASSIUM CHLORIDE 10 MEQ in SODIUM CHLORIDE 100 ML IVPB SCH ×3 (13:00→18:53)
--- NOTE | 2017-09-29 14:15 | PN ---
Progress Note, Physician History of Present Illness: Reports breathing improved. Less cough Still with diarrhea 3-4 BMs today Afebrile WBC slightly elevated - Current Medication List Current Medications: Active Medications Albuterol Sulfate (Ventolin 0.083% Nebulizer Soln -) 1 amp NEB Q4H PRN PRN Reason: SHORT OF BREATH/WHEEZING Last Admin: 09/28/17 02:13 Dose: 1 amp Allopurinol (Zyloprim -) 100 mg PO DAILY [facility] Last Admin: 09/29/17 10:25 Dose: 100 mg Arformoterol Tartrate (Brovana (Restricted To Pulmonology/Resp) -) 1 amp NEB RBID [facility] Last Admin: 09/29/17 08:29 Dose: 1 amp Digoxin (Lanoxin -) 0.125 mg PO DAILY [facility] Last Admin: 09/29/17 10:25 Dose: 0.125 mg Diltiazem HCl (Cardizem Cd -) 180 mg PO DAILY [facility] Last Admin: 09/29/17 10:25 Dose: 180 mg Furosemide (Lasix -) 40 mg PO DAILY [facility] Last Admin: 09/29/17 10:25 Dose: 40 mg Gabapentin (Neurontin -) 100 mg PO BID [facility] Last Admin: 09/29/17 10:24 Dose: 100 mg Dextrose (D5w -) 1,000 mls @ 50 mls/hr IV Q20H [facility] Last Admin: 09/28/17 14:28 Dose: 50 mls/hr CEFTRIAXONE 1 G/50 ML PREMIX (Ceftriaxone 1 Gm-D5w Bag) 50 mls @ 100 mls/hr IVPB DAILY [facility] Last Admin: 09/29/17 10:26 Dose: 100 mls/hr Potassium Chloride 10 meq/ (Sodium Chloride) 105 mls @ 105 mls/hr IVPB Q1H [facility] Stop: 09/29/17 14:14 Insulin Aspart (Novolog Vial Sliding Scale -) 1 vial SQ TIDAC [facility] PRN Reason: Protocol Levothyroxine Sodium (Synthroid -) 50 mcg PO DAILY@0700 [facility] Last Admin: 09/29/17 06:28 Dose: 50 mcg Losartan Potassium (Cozaar -) 25 mg PO DAILY [facility] Last Admin: 09/29/17 10:25 Dose: 25 mg Methylprednisolone Sodium Succinate (Solu-Medrol -) 40 mg IVPUSH BID [facility] Metronidazole (Flagyl -) 500 mg PO TID [facility] Last Admin: 09/29/17 13:52 Dose: 500 mg Montelukast Sodium (Singulair -) 10 mg PO HS [facility] Last Admin: 09/28/17 21:10 Dose: 10 mg Oxycodone HCl (Roxicodone -) 5 mg PO Q12H PRN PRN Reason: PAIN LEVEL 1-5 Pantoprazole Sodium (Protonix -) 40 mg PO DAILY [facility] Last Admin: 09/29/17 10:25 Dose: 40 mg Potassium Chloride (Potassium Chloride Oral Liquid) 40 meq PO DAILY [facility] Last Admin: 09/28/17 11:26 Dose: 40 meq Tiotropium [place] (Spiriva -) 1 puff IH DAILY [facility] Last Admin: 09/28/17 11:00 Dose: 1 inh - Objective Vital Signs: Vital Signs Temperature 97.3 F L 09/29/17 06:00 Pulse Rate 81 09/29/17 10:25 Respiratory Rate 20 09/29/17 06:00 Blood Pressure 131/71 09/29/17 06:00 O2 Sat by Pulse Oximetry (%) 95 09/28/17 21:13 Constitutional: Yes: Obese Cardiovascular: Yes: Regular Rate and Rhythm, S1, S2 Respiratory: Yes: Other (decreased rhonchi) Gastrointestinal: Yes: Normal Bowel Sounds, Soft, Abdomen, Obese. No: Tenderness Edema: Yes Edema: LLE: 2+, RLE: 2+ Integumentary: Yes: Venous Stasis Changes Labs: CBC, BMP 09/29/17 06:00 09/29/17 06:00 INR, PTT INR 8.43 (0.82-1.09) H* D 09/29/17 06:00 Assessment/Plan Exacerbation COPD RLL pneumonia day # 7 IV antibiotics + Cdifficile Chronic venous stasis dermatitis Will D/C ceftriaxone. Substitute P.O. Vancomycin for C difficile in light of continued diarrhea and coagulopathy
[2017-09-29] MEDS: VANCOMYCIN 250 MG/5 ML ORAL SOLUTION PO SCH ×2 (17:34→23:55)
[2017-09-29] MEDS: DEXTROSE 5%-WATER - 1,000 ML IV SCH (22:18)
[2017-09-29] MEDS: MONTELUKAST NA 10 MG TABLET PO SCH (22:19)
[2017-09-29] MEDS: oxyCODONE HCL 5 MG TABLET PO PRN (22:20)
[2017-09-29] MEDS ORDERED: PT OWN MED DRAWER 7, Y5N ONE (22:37)
[2017-09-30] MEDS: LEVOTHYROXINE NA 50 MCG TABLET (FP) PO SCH (06:05)
[2017-09-30] MEDS: VANCOMYCIN 250 MG/5 ML ORAL SOLUTION PO SCH ×3 (06:05→17:00)
[2017-09-30] MEDS: DEXTROSE 5%-WATER - 1,000 ML IV SCH ×2 (06:06→11:43)
[2017-09-30] MEDS: INSULIN SLIDING SCALE (NOVOLOG) 1 VIAL SQ SCH ×3 (06:06→16:55)
[2017-09-30] MEDS ORDERED: DEXTROSE 5%-WATER - 1,000 ML IV SCH (06:45)
[2017-09-30 07:46] LABS: BASO % 0.2 % (0-2.0); HEMOGLOBIN 12.5 GM/dL (10.7-15.3); LYMPH % 1.9 % (8-40); MCH 25.1 pg (25.7-33.7); MCHC 30.5 g/dl (32.0-36.0); MEAN CELL VOLUME 82.2 fl (80-96); MONO % 2.6 % (3.8-10.2); NEUT % 95.3 % (42.8-82.8); PLATELET COUNT 260 K/MM3 (134-434); RBC 4.99 M/mm3 (3.60-5.2); RDW 19.2 % (11.6-15.6)
[2017-09-30 07:56] LABS: PROTHROMBIN TIME (PATIENT) 66.3 SEC (9.98-11.88)
[2017-09-30 07:58] LABS: ANION GAP 9 (8-16); BLOOD UREA NITROGEN 34 mg/dL (7-18); CALCIUM 8.1 mg/dL (8.5-10.1); CHLORIDE 104 mmol/L (98-107); CO2 29 mmol/L (21-32); CREATININE 0.8 mg/dL (0.55-1.02); GLUCOSE,RANDOM 218 mg/dL (74-106); MAGNESIUM 2.1 mg/dL (1.8-2.4); POTASSIUM 3.2 mmol/L (3.5-5.1); SODIUM 142 mmol/L (136-145)
[2017-09-30] MEDS: ARFORMOTEROL TARTRATE 15 MCG/2 ML VIAL NEB SCH ×2 (08:29→20:00)
[2017-09-30 08:46] LABS: INR 5.87 (0.82-1.09)
--- NOTE | 2017-09-30 09:59 | PN ---
Progress Note (short form) - Note Progress Note: Chief Complaint: Events noted, notes reviewed, denies any chest pain but reports persistent dyspnea and cough productive of clear sputum, although improving History of Present Illness: Seen and examined. Events noted, notes reviewed, denies any chest pain but reports persistent dyspnea and cough productive of clear sputum, although improving Medications: Current Medications Albuterol Sulfate (Ventolin 0.083% Nebulizer Soln -) 1 amp NEB Q4H PRN PRN Reason: SHORT OF BREATH/WHEEZING Last Admin: 09/28/17 02:13 Dose: 1 amp Allopurinol (Zyloprim -) 100 mg PO DAILY [facility] Last Admin: 09/29/17 10:25 Dose: 100 mg Arformoterol Tartrate (Brovana (Restricted To Pulmonology/Resp) -) 1 amp NEB RBID [facility] Last Admin: 09/29/17 20:40 Dose: 1 amp Digoxin (Lanoxin -) 0.125 mg PO DAILY [facility] Last Admin: 09/29/17 10:25 Dose: 0.125 mg Diltiazem HCl (Cardizem Cd -) 180 mg PO DAILY [facility] Last Admin: 09/29/17 10:25 Dose: 180 mg Furosemide (Lasix -) 40 mg PO DAILY [facility] Last Admin: 09/29/17 10:25 Dose: 40 mg Gabapentin (Neurontin -) 100 mg PO BID [facility] Last Admin: 09/29/17 22:19 Dose: 100 mg Dextrose (D5w -) 1,000 mls @ 75 mls/hr IV ASDIR [facility] Last Admin: 09/30/17 06:46 Dose: 75 mls/hr Insulin Aspart (Novolog Vial Sliding Scale -) 1 vial SQ TIDAC [facility] PRN Reason: Protocol Last Admin: 09/30/17 06:06 Dose: 4 unit Levothyroxine Sodium (Synthroid -) 50 mcg PO DAILY@0700 [facility] Last Admin: 09/30/17 06:05 Dose: 50 mcg Losartan Potassium (Cozaar -) 25 mg PO DAILY [facility] Last Admin: 09/29/17 10:25 Dose: 25 mg Methylprednisolone Sodium Succinate (Solu-Medrol -) 40 mg IVPUSH BID [facility] Last Admin: 09/29/17 22:21 Dose: Not Given Montelukast Sodium (Singulair -) 10 mg PO HS [facility] Last Admin: 09/29/17 22:19 Dose: 10 mg Oxycodone HCl (Roxicodone -) 5 mg PO Q12H PRN PRN Reason: PAIN LEVEL 1-5 Last Admin: 09/29/17 22:20 Dose: 5 mg Pantoprazole Sodium (Protonix -) 40 mg PO DAILY [facility] Last Admin: 09/29/17 10:25 Dose: 40 mg Potassium Chloride (Potassium Chloride Oral Liquid) 40 meq PO DAILY [facility] Last Admin: 09/29/17 11:00 Dose: 40 meq Tiotropium [place] (Spiriva -) 1 puff IH DAILY [facility] Last Admin: 09/29/17 10:00 Dose: 1 inh Vancomycin HCl (Vancomycin Oral Solution) 125 mg PO Q6HPO [facility] Last Admin: 09/30/17 06:05 Dose: 125 mg Vital Signs: Last Vital Signs Temp Pulse Resp BP Pulse Ox 97.7 F 81 20 121/64 95 09/30/17 05:59 09/30/17 05:59 09/30/17 05:59 09/30/17 05:59 09/29/17 21:00 Intake & Output 09/27/17 09/28/17 09/29/17 09/30/17 23:59 23:59 23:59 23:59 Intake Total 208 089 1530 Balance 345 315 4312 Neck: Supple Negative JVD No Bruit Respiratory: Diminished Breath Sounds at the Bases Bilateral Scattered Rhonchi Cardiovascular: S1 S2 Irregularly Irregular Gastrointestinal: Soft Benign Normal Bowel Sounds Ext: Edema Labs: CBC, BMP 09/30/17 06:00 09/30/17 06:00 INR, PTT INR 5.87 (0.82-1.09) H* D 09/30/17 06:00 Assessment/Plan ASSESSMENT: 1. Acute on chronic hypoxemic respiratory failure related to exacerbation of reactive airway disease/COPD, resolving 2. Diastolic LV dysfunction with chronic class I-II NYHA classification LV congestive heart failure, resolving 3. CAD angina pectoris, stable 4. Permanent atrial fibrillation [id number] score of 7 on Coumadin, supra- therapeutic INR, possible drug interaction 5. HTN/hypertensive cardiovascular disease 6. DM, hypoglycemia 7. Hypothyroidism 8. CKD 9. 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 History of DVT 11. Chronic venous stasis 12. Hypokalemia, persistent PLAN: 1. Continue Cardizem CD 2. Continue Digoxin with caution and close monitoring of Digoxin level 3. Continue Lasix with close monitoring of renal function 4. Continue Cozaar with close monitoring of renal function 5. A/C with Coumadin as per INR, hold today 6. Correction of Hypokalemia Andrew Vines MD
[2017-09-30] MEDS ORDERED: PT OWN MED DRAWER 7, Y5N ONE (10:08)
[2017-09-30] MEDS: PANTOPRAZOLE 40 MG TABLET (FP) PO SCH (10:22)
[2017-09-30] MEDS: methylPREDNISolone NA SUCC 40 MG/1 ML VIAL IVPUSH SCH (10:22)
[2017-09-30] MEDS: LOSARTAN POTASSIUM 25 MG TABLET PO SCH (10:22)
[2017-09-30] MEDS: DIGOXIN 0.125 MG TABLET (FP) PO SCH (10:22)
[2017-09-30] MEDS: GABAPENTIN 100 MG CAPSULE (FP) PO SCH ×2 (10:22→22:16)
[2017-09-30] MEDS: ALLOPURINOL 100 MG TABLET (FP) PO SCH (10:22)
[2017-09-30] MEDS: FUROSEMIDE 40 MG TABLET (FP) PO SCH (10:22)
[2017-09-30] MEDS: POTASSIUM CHLORIDE ORAL LIQUID 20 MEQ/15 ML PO SCH ×2 (10:22→22:19)
[2017-09-30] MEDS: TIOTROPIUM BROMIDE 18 MCG/INH (DEVICE W/ 5 CAPSULES) IH SCH (10:23)
--- NOTE | 2017-09-30 10:39 | PN ---
Progress Note, Physician Chief Complaint: Patient still having diarrhea but less wheezing. History of Present Illness: Patient with multiple medical issues including DM type2, Chronic Bronchitis, Morbid Obesity, Hypertension, Severe DJD left knee, Atrial Fibrillation, Abdominal Pannus and Hypothroidism was admitted with acute exacerbation of COPD and pneumonia. She developed C. Difficile diarrhea causing worsening of INR, severe hypokalemia, elevated BUN. This was also accompanied by hypopglycemia and her oral diabetes meds have been held. Today she was sitting up in bed and was less congested although she did have diarrhea overnite. ID MD switched Flagyl IV to oral Vancomycin and D/ale Ceftriaxone. - Current Medication List Current Medications: Active Medications Albuterol Sulfate (Ventolin 0.083% Nebulizer Soln -) 1 amp NEB Q4H PRN PRN Reason: SHORT OF BREATH/WHEEZING Last Admin: 09/28/17 02:13 Dose: 1 amp Allopurinol (Zyloprim -) 100 mg PO DAILY [facility] Last Admin: 09/30/17 10:22 Dose: 100 mg Arformoterol Tartrate (Brovana (Restricted To Pulmonology/Resp) -) 1 amp NEB RBID [facility] Last Admin: 09/29/17 20:40 Dose: 1 amp Digoxin (Lanoxin -) 0.125 mg PO DAILY [facility] Last Admin: 09/30/17 10:22 Dose: 0.125 mg Diltiazem HCl (Cardizem Cd -) 180 mg PO DAILY [facility] Last Admin: 09/30/17 10:22 Dose: 180 mg Furosemide (Lasix -) 40 mg PO DAILY [facility] Last Admin: 09/30/17 10:22 Dose: 40 mg Gabapentin (Neurontin -) 100 mg PO BID [facility] Last Admin: 09/30/17 10:22 Dose: 100 mg Dextrose (D5w -) 1,000 mls @ 50 mls/hr IV ASDIR [facility] Potassium Chloride (Potassium Chloride 10 Meq Premix Ivpb -) 10 meq in 100 mls @ 100 mls/hr IVPB Q60M [facility] Stop: 09/30/17 11:44 Insulin Aspart (Novolog Vial Sliding Scale -) 1 vial SQ TIDAC [facility] PRN Reason: Protocol Last Admin: 09/30/17 06:06 Dose: 4 unit Levothyroxine Sodium (Synthroid -) 50 mcg PO DAILY@0700 [facility] Last Admin: 09/30/17 06:05 Dose: 50 mcg Losartan Potassium (Cozaar -) 25 mg PO DAILY [facility] Last Admin: 09/30/17 10:22 Dose: 25 mg Methylprednisolone Sodium Succinate (Solu-Medrol -) 40 mg IVPUSH BID [facility] Last Admin: 09/30/17 10:22 Dose: 40 mg Montelukast Sodium (Singulair -) 10 mg PO HS [facility] Last Admin: 09/29/17 22:19 Dose: 10 mg Oxycodone HCl (Roxicodone -) 5 mg PO Q12H PRN PRN Reason: PAIN LEVEL 1-5 Last Admin: 09/29/17 22:20 Dose: 5 mg Pantoprazole Sodium (Protonix -) 40 mg PO DAILY [facility] Last Admin: 09/30/17 10:22 Dose: 40 mg Potassium Chloride (Potassium Chloride Oral Liquid) 40 meq PO BID [facility] Tiotropium [place] (Spiriva -) 1 puff IH DAILY [facility] Last Admin: 09/30/17 10:23 Dose: 1 inh Vancomycin HCl (Vancomycin Oral Solution) 125 mg PO Q6HPO [facility] Last Admin: 09/30/17 06:05 Dose: 125 mg - Objective Vital Signs: Vital Signs Temperature 97.7 F 09/30/17 05:59 Pulse Rate 87 09/30/17 10:22 Respiratory Rate 20 09/30/17 05:59 Blood Pressure 121/64 09/30/17 05:59 O2 Sat by Pulse Oximetry (%) 95 09/29/17 21:00 Constitutional: Yes: Calm HENT: No: Hoarseness Cardiovascular: Yes: Pulse Irregular Respiratory: Yes: Dullness, Rhonchi (few wheezes and rhonchi bilaterally but less than yesterday.), Wheezes Gastrointestinal: Yes: Hyperactive Bowel Sounds. No: Vomiting Genitourinary: No: Bae Present Musculoskeletal: Yes: Muscle Pain (left knee > right knee) Edema: LLE: Trace, RLE: Trace (chronic stasis changes both legs) Wound/Incision: Yes: Other (Hardened scab left heel) Neurological: Yes: Alert, Oriented Labs: CBC, BMP 09/30/17 06:00 09/30/17 06:00 INR, PTT INR 5.87 (0.82-1.09) H* D 09/30/17 06:00 - ....Imaging Chest X-ray: Report Reviewed Problem List - Problems (1) Acute on chronic diastolic (congestive) heart failure Assessment/Plan: Stable after IV Lasix; cardiology follows patient Code(s): I50.33 - ACUTE ON CHRONIC DIASTOLIC (CONGESTIVE) HEART FAILURE (2) Acute on chronic respiratory failure with hypoxia and hypercapnia Assessment/Plan: Still with some wheezing and rhonchi but a bit improved with incentive spirometry and chest PT On Steroids and aerosol Rx Code(s): J96.21 - ACUTE AND CHRONIC RESPIRATORY FAILURE WITH HYPOXIA; J96.22 - ACUTE AND CHRONIC RESPIRATORY FAILURE WITH HYPERCAPNIA (3) Diarrhea Assessment/Plan: Due C. Diff Now on oral Vancomycin Code(s): R19.7 - DIARRHEA, UNSPECIFIED (4) Supratherapeutic INR Assessment/Plan: Exacerbated by C. Diff. Down below 6 today. Will follow. Code(s): R79.1 - ABNORMAL COAGULATION PROFILE (5) T2DM (type 2 diabetes mellitus) Assessment/Plan: BGM's noted. Will lower IV glucose to 50cc/hr and D/C tomorrow if glucose levels readjust. Code(s): E11.9 - TYPE 2 DIABETES MELLITUS WITHOUT COMPLICATIONS (6) Atrial fibrillation Assessment/Plan: On coumadin but being held due to elevated INR Code(s): I48.91 - UNSPECIFIED ATRIAL FIBRILLATION Qualifiers: Atrial fibrillation type: chronic Qualified Code(s): I48.2 - Chronic atrial fibrillation (7) Hypokalemia Assessment/Plan: Sever hypokalemia slightly improved today. To increase oral Ktab to 40meq BID and give IV KCL 10meq X1. Code(s): E87.6 - HYPOKALEMIA
[2017-09-30] MEDS ORDERED: POTASSIUM CHLORIDE 10 MEQ in SODIUM CHLORIDE 100 ML IVPB SCH (11:00)
--- NOTE | 2017-09-30 11:16 | PN ---
Progress Note, Physician History of Present Illness: Seated in bed Reports breathing improved. Less cough Loose stool last evening; reports no BM this am Afebrile WBC WNL - Current Medication List Current Medications: Active Medications Albuterol Sulfate (Ventolin 0.083% Nebulizer Soln -) 1 amp NEB Q4H PRN PRN Reason: SHORT OF BREATH/WHEEZING Last Admin: 09/28/17 02:13 Dose: 1 amp Allopurinol (Zyloprim -) 100 mg PO DAILY [facility] Last Admin: 09/30/17 10:22 Dose: 100 mg Arformoterol Tartrate (Brovana (Restricted To Pulmonology/Resp) -) 1 amp NEB RBID [facility] Last Admin: 09/29/17 20:40 Dose: 1 amp Digoxin (Lanoxin -) 0.125 mg PO DAILY [facility] Last Admin: 09/30/17 10:22 Dose: 0.125 mg Diltiazem HCl (Cardizem Cd -) 180 mg PO DAILY [facility] Last Admin: 09/30/17 10:22 Dose: 180 mg Furosemide (Lasix -) 40 mg PO DAILY [facility] Last Admin: 09/30/17 10:22 Dose: 40 mg Gabapentin (Neurontin -) 100 mg PO BID [facility] Last Admin: 09/30/17 10:22 Dose: 100 mg Dextrose (D5w -) 1,000 mls @ 50 mls/hr IV ASDIR [facility] Potassium Chloride 10 meq/ (Sodium Chloride) 105 mls @ 100 mls/hr IVPB Q60M [facility] Stop: 09/30/17 11:59 Insulin Aspart (Novolog Vial Sliding Scale -) 1 vial SQ TIDAC [facility] PRN Reason: Protocol Last Admin: 09/30/17 06:06 Dose: 4 unit Levothyroxine Sodium (Synthroid -) 50 mcg PO DAILY@0700 [facility] Last Admin: 09/30/17 06:05 Dose: 50 mcg Losartan Potassium (Cozaar -) 25 mg PO DAILY [facility] Last Admin: 09/30/17 10:22 Dose: 25 mg Methylprednisolone Sodium Succinate (Solu-Medrol -) 40 mg IVPUSH BID [facility] Last Admin: 09/30/17 10:22 Dose: 40 mg Montelukast Sodium (Singulair -) 10 mg PO HS [facility] Last Admin: 09/29/17 22:19 Dose: 10 mg Oxycodone HCl (Roxicodone -) 5 mg PO Q12H PRN PRN Reason: PAIN LEVEL 1-5 Last Admin: 09/29/17 22:20 Dose: 5 mg Pantoprazole Sodium (Protonix -) 40 mg PO DAILY [facility] Last Admin: 09/30/17 10:22 Dose: 40 mg Potassium Chloride (Potassium Chloride Oral Liquid) 40 meq PO BID [facility] Tiotropium [place] (Spiriva -) 1 puff IH DAILY [facility] Last Admin: 09/30/17 10:23 Dose: 1 inh Vancomycin HCl (Vancomycin Oral Solution) 125 mg PO Q6HPO [facility] Last Admin: 09/30/17 06:05 Dose: 125 mg - Objective Vital Signs: Vital Signs Temperature 98.3 F 09/30/17 09:00 Pulse Rate 87 09/30/17 10:22 Respiratory Rate 20 09/30/17 09:00 Blood Pressure 134/55 09/30/17 09:00 O2 Sat by Pulse Oximetry (%) 96 09/30/17 09:00 Constitutional: Yes: Obese Cardiovascular: Yes: Regular Rate and Rhythm, S1, S2 Respiratory: Yes: Rhonchi Gastrointestinal: Yes: Normal Bowel Sounds, Soft, Abdomen, Obese. No: Tenderness Edema: Yes Integumentary: Yes: Venous Stasis Changes Labs: CBC, BMP 09/30/17 06:00 09/30/17 06:00 INR, PTT INR 5.87 (0.82-1.09) H* D 09/30/17 06:00 Assessment/Plan Exacerbation COPD RLL pneumonia S/P course of IV antibiotics + Cdifficile Chronic venous stasis dermatitis Continue P.O. Vancomycin for C difficile additional 10d
--- NOTE | 2017-09-30 16:14 | PN ---
Progress Note (short form) - Note Progress Note: PULMONARY VSS/AFEBRILE ANICTERIC DISTANT B/L BREATH SOUNDS S1S2 OBESE SOFT NO EDEMA LABS/MEDS/NOTES/IMAGES/MICRO NOTED IMP ACUTE ON CHRONIC HYPOXEMIC RESPIRATORY FAILURE RESOLVED COPD CHF ASHD RLL PNEUMONIA AFIB DM H/O DVT HYPOTHYROID PLAN IV STEROIDS CHANGED TO ORAL ANTIBIOTICS PER ID LASIX INHALED BRONCHODILATORS O2 DAILY [facility] Kristy STEIN MD
[2017-09-30] MEDS: predniSONE 20 MG TABLET (UD) PO SCH (16:48)
[2017-09-30] MEDS: MONTELUKAST NA 10 MG TABLET PO SCH (22:16)
[2017-09-30] MEDS: oxyCODONE HCL 5 MG TABLET PO PRN (22:20)
[2017-10-01] MEDS: VANCOMYCIN 250 MG/5 ML ORAL SOLUTION PO SCH ×4 (00:31→17:59)
[2017-10-01] MEDS: INSULIN SLIDING SCALE (NOVOLOG) 1 VIAL SQ SCH ×3 (06:18→17:43)
[2017-10-01] MEDS: LEVOTHYROXINE NA 50 MCG TABLET (FP) PO SCH (06:18)
[2017-10-01] MEDS: DEXTROSE 5%-WATER - 1,000 ML IV SCH (06:23)
[2017-10-01 07:57] LABS: BASO % 0.1 % (0-2.0); HEMATOCRIT 42.2 % (32.4-45.2); HEMOGLOBIN 12.8 GM/dL (10.7-15.3); LYMPH % 2.3 % (8-40); MCH 25.1 pg (25.7-33.7); MCHC 30.5 g/dl (32.0-36.0); MEAN CELL VOLUME 82.4 fl (80-96); MONO % 4.7 % (3.8-10.2); NEUT % 92.9 % (42.8-82.8); PLATELET COUNT 259 K/MM3 (134-434); RBC 5.12 M/mm3 (3.60-5.2); RDW 19.7 % (11.6-15.6); WHITE BLOOD COUNT 11.3 K/mm3 (4.0-10.0)
[2017-10-01 08:09] LABS: INR 2.1 (0.82-1.09); PROTHROMBIN TIME (PATIENT) 23.7 SEC (9.98-11.88)
[2017-10-01 08:13] LABS: ANION GAP 5 (8-16); BLOOD UREA NITROGEN 33 mg/dL (7-18); CALCIUM 8.1 mg/dL (8.5-10.1); CHLORIDE 105 mmol/L (98-107); CO2 32 mmol/L (21-32); CREATININE 0.8 mg/dL (0.55-1.02); GLUCOSE,RANDOM 210 mg/dL (74-106); SODIUM 142 mmol/L (136-145)
[2017-10-01] MEDS: ARFORMOTEROL TARTRATE 15 MCG/2 ML VIAL NEB SCH ×2 (08:40→21:50)
--- NOTE | 2017-10-01 08:57 | PN ---
Progress Note (short form) - Note Progress Note: Patient sitting up in bed with aerosol Rx on. Less diarrhea. Refuse PT yesterday ? family member in her room. Tolerating diet but still coughing. I don 't think it is reasonable that she goes home from hospital especially with pipe broken at home but so far she is resistant to return to SNF. On Exam: Vital Signs Temp 98.1 F 10/01/17 05:48 Pulse 88 10/01/17 05:48 Resp 20 10/01/17 05:48 BP 129/58 10/01/17 05:48 Pulse Ox 94 L 09/30/17 21:00 Intake & Output 09/30/17 09/30/17 10/01/17 11:59 23:59 11:59 Intake Total 450 900 Balance 450 900 Intake: IV 350 600 D5w - 1,000 ml @ 50 mls/ 350 600 hr IV ASDIR LYUDMILA Rx#: [id number] IVPB 100 Oral 300 Other: Voiding Method Toilet Toilet # Unmeasured Voids Void 2 2 Bowel Movement Yes: 1 No Alert few scattered wheezes and rales bilaterally Cor: Irrreg Ext:Slight increase in pedal edema bilaterally Abd: pannus Abnormal Lab Results 10/01/17 10/01/17 10/01/17 06:00 06:00 06:00 WBC 11.3 H MCH 25.1 L MCHC 30.5 L RDW 19.7 H Neutrophils % 92.9 H Lymphocytes % 2.3 L D PT with INR 23.70 H INR 2.10 H D Anion Gap 5 L BUN 33 H Random Glucose 210 H Calcium 8.1 L TSH 0.06 L D IMP: Acute Exacerbation COPD A. Fibrillation Morbid Obesity Pneumonia community acquired C. Difficile Diarrhea Severe DJD knees Plan: Restart Coumadin F/U Lab PT Probably needs F/U SNF Arrangements for update of home and portable O2 Problem List - Problems (1) Acute on chronic diastolic (congestive) heart failure Code(s): I50.33 - ACUTE ON CHRONIC DIASTOLIC (CONGESTIVE) HEART FAILURE (2) Acute on chronic respiratory failure with hypoxia and hypercapnia Code(s): J96.21 - ACUTE AND CHRONIC RESPIRATORY FAILURE WITH HYPOXIA; J96.22 - ACUTE AND CHRONIC RESPIRATORY FAILURE WITH HYPERCAPNIA (3) Diarrhea Code(s): R19.7 - DIARRHEA, UNSPECIFIED (4) Supratherapeutic INR Code(s): R79.1 - ABNORMAL COAGULATION PROFILE (5) T2DM (type 2 diabetes mellitus) Code(s): E11.9 - TYPE 2 DIABETES MELLITUS WITHOUT COMPLICATIONS (6) Atrial fibrillation Code(s): I48.91 - UNSPECIFIED ATRIAL FIBRILLATION Qualifiers: Atrial fibrillation type: chronic Qualified Code(s): I48.2 - Chronic atrial fibrillation (7) Hypokalemia Code(s): E87.6 - HYPOKALEMIA
[2017-10-01] MEDS ORDERED: FUROSEMIDE 40 MG/4 ML INJECTABLE VIAL IVPUSH ONE ×2 (09:15→11:00)
[2017-10-01] MEDS ORDERED: PT OWN MED DRAWER 7, Y5N ONE (10:14)
[2017-10-01] MEDS: LOSARTAN POTASSIUM 25 MG TABLET PO SCH (10:34)
[2017-10-01] MEDS: PANTOPRAZOLE 40 MG TABLET (FP) PO SCH (10:34)
[2017-10-01] MEDS: POTASSIUM CHLORIDE ORAL LIQUID 20 MEQ/15 ML PO SCH ×2 (10:34→21:30)
[2017-10-01] MEDS: ALLOPURINOL 100 MG TABLET (FP) PO SCH (10:34)
[2017-10-01] MEDS: GABAPENTIN 100 MG CAPSULE (FP) PO SCH ×2 (10:34→21:30)
[2017-10-01] MEDS: predniSONE 20 MG TABLET (UD) PO SCH (10:34)
[2017-10-01] MEDS: DIGOXIN 0.125 MG TABLET (FP) PO SCH (10:34)
[2017-10-01] MEDS: TIOTROPIUM BROMIDE 18 MCG/INH (DEVICE W/ 5 CAPSULES) IH SCH (10:43)
--- NOTE | 2017-10-01 12:37 | PN ---
Progress Note, Physician History of Present Illness: Dyspnea and non-productive cough slowly improving. Reports diarrhea resolving. - Current Medication List Current Medications: Active Medications Albuterol Sulfate (Ventolin 0.083% Nebulizer Soln -) 1 amp NEB Q4H PRN PRN Reason: SHORT OF BREATH/WHEEZING Last Admin: 09/28/17 02:13 Dose: 1 amp Allopurinol (Zyloprim -) 100 mg PO DAILY [facility] Last Admin: 10/01/17 10:34 Dose: 100 mg Arformoterol Tartrate (Brovana (Restricted To Pulmonology/Resp) -) 1 amp NEB RBID [facility] Last Admin: 10/01/17 08:40 Dose: 1 amp Digoxin (Lanoxin -) 0.125 mg PO DAILY [facility] Last Admin: 10/01/17 10:34 Dose: 0.125 mg Diltiazem HCl (Cardizem Cd -) 180 mg PO DAILY [facility] Last Admin: 10/01/17 10:35 Dose: 180 mg Furosemide (Lasix -) 40 mg PO DAILY [facility] Last Admin: 09/30/17 10:22 Dose: 40 mg Gabapentin (Neurontin -) 100 mg PO BID [facility] Last Admin: 10/01/17 10:34 Dose: 100 mg Insulin Aspart (Novolog Vial Sliding Scale -) 1 vial SQ TIDAC [facility] PRN Reason: Protocol Last Admin: 10/01/17 06:18 Dose: 4 unit Levothyroxine Sodium (Synthroid -) 50 mcg PO DAILY@0700 [facility] Last Admin: 10/01/17 06:18 Dose: 50 mcg Losartan Potassium (Cozaar -) 25 mg PO DAILY [facility] Last Admin: 10/01/17 10:34 Dose: 25 mg Montelukast Sodium (Singulair -) 10 mg PO HS [facility] Last Admin: 09/30/17 22:16 Dose: 10 mg Oxycodone HCl (Roxicodone -) 5 mg PO Q12H PRN PRN Reason: PAIN LEVEL 1-5 Last Admin: 09/30/17 22:20 Dose: 5 mg Pantoprazole Sodium (Protonix -) 40 mg PO DAILY [facility] Last Admin: 10/01/17 10:34 Dose: 40 mg Potassium Chloride (Potassium Chloride Oral Liquid) 40 meq PO BID [facility] Last Admin: 10/01/17 10:34 Dose: 40 meq Prednisone (Deltasone -) 20 mg PO DAILY [facility] Last Admin: 10/01/17 10:34 Dose: 20 mg Tiotropium [place] (Spiriva -) 1 puff IH DAILY [facility] Last Admin: 09/30/17 10:23 Dose: 1 inh Vancomycin HCl (Vancomycin Oral Solution) 125 mg PO Q6HPO [facility] Last Admin: 10/01/17 06:18 Dose: 125 mg Warfarin Sodium (Coumadin -) 4 mg PO DAILY@1800 [facility] - Objective Vital Signs: Vital Signs Temperature 98.1 F 10/01/17 05:48 Pulse Rate 84 10/01/17 10:34 Respiratory Rate 20 10/01/17 05:48 Blood Pressure 129/58 10/01/17 05:48 O2 Sat by Pulse Oximetry (%) 94 L 09/30/17 21:00 Constitutional: Yes: No Distress, Calm Neck: Yes: Supple Cardiovascular: Yes: Regular Rate and Rhythm Respiratory: Yes: Regular, Diminished, On Nasal O2 Gastrointestinal: Yes: Normal Bowel Sounds, Soft, Abdomen, Obese Edema: Yes Edema: LLE: 1+, RLE: 1+ Integumentary: Yes: Venous Stasis Changes Labs: CBC, BMP 10/01/17 06:00 10/01/17 06:00 INR, PTT INR 2.10 (0.82-1.09) H D 10/01/17 06:00 Problem List - Problems (1) Acute on chronic diastolic (congestive) heart failure Code(s): I50.33 - ACUTE ON CHRONIC DIASTOLIC (CONGESTIVE) HEART FAILURE (2) Acute on chronic respiratory failure with hypoxia and hypercapnia Code(s): J96.21 - ACUTE AND CHRONIC RESPIRATORY FAILURE WITH HYPOXIA; J96.22 - ACUTE AND CHRONIC RESPIRATORY FAILURE WITH HYPERCAPNIA (3) COPD (chronic obstructive pulmonary disease) Code(s): J44.9 - CHRONIC OBSTRUCTIVE PULMONARY DISEASE, UNSPECIFIED Qualifiers: COPD type: unspecified COPD Qualified Code(s): J44.9 - Chronic obstructive pulmonary disease, unspecified (4) Pneumonia Code(s): J18.9 - PNEUMONIA, UNSPECIFIED ORGANISM Qualifiers: Pneumonia type: due to unspecified organism (5) Atrial fibrillation Code(s): I48.91 - UNSPECIFIED ATRIAL FIBRILLATION Qualifiers: Atrial fibrillation type: chronic Qualified Code(s): I48.2 - Chronic atrial fibrillation (6) Chronic venous stasis dermatitis of both lower extremities Code(s): I87.2 - VENOUS INSUFFICIENCY (CHRONIC) (PERIPHERAL) (7) Diabetes Code(s): E11.9 - TYPE 2 DIABETES MELLITUS WITHOUT COMPLICATIONS Qualifiers: Diabetes mellitus type: type 2 Diabetes mellitus complication status: with hyperglycemia Diabetes mellitus long-term insulin use: without terminal makeup operator use Qualified Code(s): E11.65 - Type 2 diabetes mellitus with hyperglycemia (8) HTN (hypertension) Code(s): I10 - ESSENTIAL (PRIMARY) HYPERTENSION Qualifiers: Hypertension type: essential hypertension Qualified Code(s): I10 - Essential (primary) hypertension (9) Morbid obesity with BMI of 45.0-49.9, adult Code(s): E66.01 - MORBID (SEVERE) OBESITY DUE TO EXCESS CALORIES; Z68.42 - BODY MASS INDEX (BMI) 45.0-49.9, ADULT (10) Hypothyroidism Code(s): E03.9 - HYPOTHYROIDISM, UNSPECIFIED (11) Chronic anticoagulation Code(s): Z79.01 - [facility] (CURRENT) USE OF ANTICOAGULANTS (12) Clostridium difficile colitis Code(s): A04.72 - ENTEROCOLITIS D/T CLOSTRIDIUM DIFFICILE, NOT SPCF RECUR Assessment/Plan 1. Acute on chronic hypoxemic respiratory failure related to exacerbation of reactive airway disease/COPD, resolved 2. Diastolic LV dysfunction with chronic class I-II NYHA classification LV congestive heart failure, resolving 3. CAD angina pectoris, stable 4. Permanent atrial fibrillation [id number] score of 7 on Coumadin, therapeutic INR, 5. HTN/hypertensive cardiovascular disease 6. DM, hypoglycemia 7. Hypothyroidism 8. CKD 9. 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 History of DVT 11. Chronic venous stasis 12. C. diff Ag + PLAN: 1. Continue Cardizem CD 180 qd 2. Continue Digoxin 0.125 qd with caution and close monitoring of Digoxin level 3. Continue Lasix 40 qd with close monitoring of renal function 4. Continue Cozaar 25 qd with close monitoring of renal function 5. A/C with Coumadin as per INR resumed 6. BD, Singulair, oral steroid taper with GI protection 7. Complete oral Vanco course
[2017-10-01] MEDS: WARFARIN NA 2 MG TABLET (UD) PO SCH (17:42)
[2017-10-01] MEDS: MONTELUKAST NA 10 MG TABLET PO SCH (21:30)
[2017-10-01] MEDS: oxyCODONE HCL 5 MG TABLET PO PRN (23:42)
[2017-10-02] MEDS: VANCOMYCIN 250 MG/5 ML ORAL SOLUTION PO SCH ×4 (00:17→18:23)
[2017-10-02] MEDS: INSULIN SLIDING SCALE (NOVOLOG) 1 VIAL SQ SCH ×4 (06:04→18:34)
[2017-10-02] MEDS: LEVOTHYROXINE NA 50 MCG TABLET (FP) PO SCH (06:04)
[2017-10-02] MEDS ORDERED: PT OWN MED DRAWER 7, Y5N ONE ×2 (07:04→13:41)
[2017-10-02 08:02] LABS: INR 2.3 (0.82-1.09)
[2017-10-02 08:15] LABS: ANION GAP 4 (8-16); BLOOD UREA NITROGEN 34 mg/dL (7-18); CALCIUM 8.4 mg/dL (8.5-10.1); CHLORIDE 104 mmol/L (98-107); CO2 34 mmol/L (21-32); GLUCOSE,RANDOM 123 mg/dL (74-106); POTASSIUM 4.3 mmol/L (3.5-5.1); SODIUM 142 mmol/L (136-145)
[2017-10-02 08:16] LABS: CREATININE 0.8 mg/dL (0.55-1.02)
[2017-10-02] MEDS: ARFORMOTEROL TARTRATE 15 MCG/2 ML VIAL NEB SCH ×2 (08:42→20:00)
--- NOTE | 2017-10-02 09:05 | PN ---
Progress Note (short form) - Note Progress Note: Patient still having some coughing but overall some improvement. Finally agreed for SNF especially with her situation alone at home. PT. note reviewed and Pulmonary and Cardiology notes. Still some loose BM's Some SOB on movement Occ nonproductive cough Some pruritus dry skin On Exam: Vital Signs Temp 98.1 F 10/01/17 22:00 Pulse 85 10/01/17 22:00 Resp 20 10/01/17 22:00 BP 121/57 10/01/17 22:00 Pulse Ox 94 L 10/01/17 20:43 Intake & Output 10/01/17 10/01/17 10/02/17 11:59 23:59 11:59 Intake Total 900 Balance 900 Intake: IV 600 D5w - 1,000 ml @ 50 mls/ 600 hr IV ASDIR LYUDMILA Rx#: [id number] Oral 300 Other: Voiding Method Toilet Toilet Toilet # Unmeasured Voids Void 2 Bowel Movement No Yes: 1 Alert Chest: a few fine wheezes noted Cor: Irregular Abd. pannus Ext: improved Re: pedal edema Abnormal Lab Results 10/02/17 10/02/17 06:00 06:00 PT with INR 26.00 H INR 2.30 H Carbon Dioxide 34 H Anion Gap 4 L BUN 34 H Random Glucose 123 H Calcium 8.4 L IMP: COPD with Acute Exacerbation Pneumonia C. Difficile Diarrhea A. Fib on Coumadin NIDDM Morbid Obesity Severe DJD of knees PLAN: F/U INR and lytes Continue PT SNF BGM's Problem List - Problems (1) Acute on chronic diastolic (congestive) heart failure Code(s): I50.33 - ACUTE ON CHRONIC DIASTOLIC (CONGESTIVE) HEART FAILURE (2) Acute on chronic respiratory failure with hypoxia and hypercapnia Code(s): J96.21 - ACUTE AND CHRONIC RESPIRATORY FAILURE WITH HYPOXIA; J96.22 - ACUTE AND CHRONIC RESPIRATORY FAILURE WITH HYPERCAPNIA (3) Diarrhea Code(s): R19.7 - DIARRHEA, UNSPECIFIED (4) Supratherapeutic INR Code(s): R79.1 - ABNORMAL COAGULATION PROFILE (5) T2DM (type 2 diabetes mellitus) Code(s): E11.9 - TYPE 2 DIABETES MELLITUS WITHOUT COMPLICATIONS (6) Atrial fibrillation Code(s): I48.91 - UNSPECIFIED ATRIAL FIBRILLATION Qualifiers: Atrial fibrillation type: chronic Qualified Code(s): I48.2 - Chronic atrial fibrillation (7) Hypokalemia Code(s): E87.6 - HYPOKALEMIA
--- NOTE | 2017-10-02 10:16 | PN ---
Progress Note (short form) - Note Progress Note: Breathing slowly improving. Still with some residual congested cough. No CP. No diarrhea. Intake & Output 09/29/17 09/30/17 10/01/17 10/02/17 23:59 23:59 23:59 23:59 Intake Total 1050 450 900 Balance 1050 450 900 Last Vital Signs Temp Pulse Resp BP Pulse Ox 98.1 F 85 20 121/57 94 L 10/01/17 22:00 10/01/17 22:00 10/01/17 22:00 10/01/17 22:00 10/01/17 20:43 Active Medications Albuterol Sulfate (Ventolin 0.083% Nebulizer Soln -) 1 amp NEB Q4H PRN PRN Reason: SHORT OF BREATH/WHEEZING Last Admin: 09/28/17 02:13 Dose: 1 amp Allopurinol (Zyloprim -) 100 mg PO DAILY [facility] Last Admin: 10/01/17 10:34 Dose: 100 mg Arformoterol Tartrate (Brovana (Restricted To Pulmonology/Resp) -) 1 amp NEB RBID [facility] Last Admin: 10/01/17 21:50 Dose: 1 amp Digoxin (Lanoxin -) 0.125 mg PO DAILY [facility] Last Admin: 10/01/17 10:34 Dose: 0.125 mg Diltiazem HCl (Cardizem Cd -) 180 mg PO DAILY [facility] Last Admin: 10/01/17 10:35 Dose: 180 mg Furosemide (Lasix -) 40 mg PO DAILY [facility] Last Admin: 09/30/17 10:22 Dose: 40 mg Gabapentin (Neurontin -) 100 mg PO BID [facility] Last Admin: 10/01/17 21:30 Dose: 100 mg Insulin Aspart (Novolog Vial Sliding Scale -) 1 vial SQ TIDAC [facility] PRN Reason: Protocol Last Admin: 10/02/17 06:04 Dose: Not Given Levothyroxine Sodium (Synthroid -) 50 mcg PO DAILY@0700 [facility] Last Admin: 10/02/17 06:04 Dose: 50 mcg Losartan Potassium (Cozaar -) 25 mg PO DAILY [facility] Last Admin: 10/01/17 10:34 Dose: 25 mg Montelukast Sodium (Singulair -) 10 mg PO HS [facility] Last Admin: 10/01/17 21:30 Dose: 10 mg Oxycodone HCl (Roxicodone -) 5 mg PO Q12H PRN PRN Reason: PAIN LEVEL 1-5 Last Admin: 10/01/17 23:42 Dose: 5 mg Pantoprazole Sodium (Protonix -) 40 mg PO DAILY [facility] Last Admin: 10/01/17 10:34 Dose: 40 mg Potassium Chloride (Potassium Chloride Oral Liquid) 40 meq PO BID [facility] Last Admin: 10/01/17 21:30 Dose: 40 meq Prednisone (Deltasone -) 20 mg PO DAILY [facility] Last Admin: 10/01/17 10:34 Dose: 20 mg Tiotropium [place] (Spiriva -) 1 puff IH DAILY [facility] Last Admin: 10/01/17 10:43 Dose: 1 inh Vancomycin HCl (Vancomycin Oral Solution) 125 mg PO Q6HPO [facility] Last Admin: 10/02/17 06:04 Dose: 125 mg Warfarin Sodium (Coumadin -) 4 mg PO DAILY@1800 [facility] Last Admin: 10/01/17 17:42 Dose: 4 mg Gen: Awake and alert, NAD Heart: RRR Lung: scattered bilateral rhonchi, no wheezes Abd: soft, nontender Ext: chronic changes Laboratory Results - last 24 hr 10/01/17 10/01/17 10/01/17 11:57 16:47 21:25 PT with INR INR Sodium Potassium Chloride Carbon Dioxide Anion Gap BUN Creatinine POC Glucometer 264 245 184 Random Glucose Calcium 10/02/17 10/02/17 10/02/17 06:00 06:00 06:02 PT with INR 26.00 H INR 2.30 H Sodium 142 Potassium 4.3 Chloride 104 Carbon Dioxide 34 H Anion Gap 4 L BUN 34 H Creatinine 0.8 POC Glucometer 129 Random Glucose 123 H Calcium 8.4 L A/P Acute on Chronic Hypoxic Respiratory Failure Pneumonia Acute COPD Exacerbation Acute on Chronic Diastolic Heart Failure Atrial Fibrillation HTN DM Hypothyroidism - Prednisone - inhaled bronchodilators - Spiriva - Brovana BID - O2 to keep Spo2 >90% - lasix - rate control with digoxin, cardizem - continue anticoagulation - D/C planning to SNF Dr Alcala
--- NOTE | 2017-10-02 10:34 | PN ---
Progress Note, Physician History of Present Illness: Dyspnea and non-productive cough slowly improving. Reports diarrhea resolving. - Current Medication List Current Medications: Active Medications Albuterol Sulfate (Ventolin 0.083% Nebulizer Soln -) 1 amp NEB Q4H PRN PRN Reason: SHORT OF BREATH/WHEEZING Last Admin: 09/28/17 02:13 Dose: 1 amp Allopurinol (Zyloprim -) 100 mg PO DAILY [facility] Last Admin: 10/01/17 10:34 Dose: 100 mg Arformoterol Tartrate (Brovana (Restricted To Pulmonology/Resp) -) 1 amp NEB RBID [facility] Last Admin: 10/01/17 21:50 Dose: 1 amp Digoxin (Lanoxin -) 0.125 mg PO DAILY [facility] Last Admin: 10/01/17 10:34 Dose: 0.125 mg Diltiazem HCl (Cardizem Cd -) 180 mg PO DAILY [facility] Last Admin: 10/01/17 10:35 Dose: 180 mg Furosemide (Lasix -) 40 mg PO DAILY [facility] Last Admin: 09/30/17 10:22 Dose: 40 mg Gabapentin (Neurontin -) 100 mg PO BID [facility] Last Admin: 10/01/17 21:30 Dose: 100 mg Insulin Aspart (Novolog Vial Sliding Scale -) 1 vial SQ TIDAC [facility] PRN Reason: Protocol Last Admin: 10/02/17 06:04 Dose: Not Given Levothyroxine Sodium (Synthroid -) 50 mcg PO DAILY@0700 [facility] Last Admin: 10/02/17 06:04 Dose: 50 mcg Losartan Potassium (Cozaar -) 25 mg PO DAILY [facility] Last Admin: 10/01/17 10:34 Dose: 25 mg Montelukast Sodium (Singulair -) 10 mg PO HS [facility] Last Admin: 10/01/17 21:30 Dose: 10 mg Oxycodone HCl (Roxicodone -) 5 mg PO Q12H PRN PRN Reason: PAIN LEVEL 1-5 Last Admin: 10/01/17 23:42 Dose: 5 mg Pantoprazole Sodium (Protonix -) 40 mg PO DAILY [facility] Last Admin: 10/01/17 10:34 Dose: 40 mg Potassium Chloride (Potassium Chloride Oral Liquid) 40 meq PO BID [facility] Last Admin: 10/01/17 21:30 Dose: 40 meq Prednisone (Deltasone -) 20 mg PO DAILY [facility] Last Admin: 10/01/17 10:34 Dose: 20 mg Tiotropium [place] (Spiriva -) 1 puff IH DAILY [facility] Last Admin: 10/01/17 10:43 Dose: 1 inh Vancomycin HCl (Vancomycin Oral Solution) 125 mg PO Q6HPO [facility] Last Admin: 10/02/17 06:04 Dose: 125 mg Warfarin Sodium (Coumadin -) 4 mg PO DAILY@1800 [facility] Last Admin: 10/01/17 17:42 Dose: 4 mg - Objective Vital Signs: Vital Signs Temperature 98.1 F 10/01/17 22:00 Pulse Rate 85 10/01/17 22:00 Respiratory Rate 20 10/01/17 22:00 Blood Pressure 121/57 10/01/17 22:00 O2 Sat by Pulse Oximetry (%) 94 L 10/01/17 20:43 Constitutional: Yes: No Distress, Calm Neck: Yes: Supple Cardiovascular: Yes: Pulse Irregular Respiratory: Yes: Regular, Diminished Gastrointestinal: Yes: Normal Bowel Sounds, Soft, Abdomen, Obese Edema: Yes Edema: LLE: Trace, RLE: Trace Integumentary: Yes: Venous Stasis Changes Labs: CBC, BMP 10/01/17 06:00 10/02/17 06:00 INR, PTT INR 2.30 (0.82-1.09) H 10/02/17 06:00 Problem List - Problems (1) Acute on chronic diastolic (congestive) heart failure Code(s): I50.33 - ACUTE ON CHRONIC DIASTOLIC (CONGESTIVE) HEART FAILURE (2) Acute on chronic respiratory failure with hypoxia and hypercapnia Code(s): J96.21 - ACUTE AND CHRONIC RESPIRATORY FAILURE WITH HYPOXIA; J96.22 - ACUTE AND CHRONIC RESPIRATORY FAILURE WITH HYPERCAPNIA (3) COPD (chronic obstructive pulmonary disease) Code(s): J44.9 - CHRONIC OBSTRUCTIVE PULMONARY DISEASE, UNSPECIFIED Qualifiers: COPD type: unspecified COPD Qualified Code(s): J44.9 - Chronic obstructive pulmonary disease, unspecified (4) Pneumonia Code(s): J18.9 - PNEUMONIA, UNSPECIFIED ORGANISM Qualifiers: Pneumonia type: due to unspecified organism (5) Atrial fibrillation Code(s): I48.91 - UNSPECIFIED ATRIAL FIBRILLATION Qualifiers: Atrial fibrillation type: chronic Qualified Code(s): I48.2 - Chronic atrial fibrillation (6) Chronic venous stasis dermatitis of both lower extremities Code(s): I87.2 - VENOUS INSUFFICIENCY (CHRONIC) (PERIPHERAL) (7) Diabetes Code(s): E11.9 - TYPE 2 DIABETES MELLITUS WITHOUT COMPLICATIONS Qualifiers: Diabetes mellitus type: type 2 Diabetes mellitus complication status: with hyperglycemia Diabetes mellitus termination clerk insulin use: without termination clerk use Qualified Code(s): E11.65 - Type 2 diabetes mellitus with hyperglycemia (8) HTN (hypertension) Code(s): I10 - ESSENTIAL (PRIMARY) HYPERTENSION Qualifiers: Hypertension type: essential hypertension Qualified Code(s): I10 - Essential (primary) hypertension (9) Morbid obesity with BMI of 45.0-49.9, adult Code(s): E66.01 - MORBID (SEVERE) OBESITY DUE TO EXCESS CALORIES; Z68.42 - BODY MASS INDEX (BMI) 45.0-49.9, ADULT (10) Hypothyroidism Code(s): E03.9 - HYPOTHYROIDISM, UNSPECIFIED (11) Chronic anticoagulation Code(s): Z79.01 - MONITOR WORKER (CURRENT) USE OF ANTICOAGULANTS (12) Clostridium difficile colitis Code(s): A04.72 - ENTEROCOLITIS D/T CLOSTRIDIUM DIFFICILE, NOT SPCF RECUR Assessment/Plan 1. Acute on chronic hypoxemic respiratory failure related to exacerbation of reactive airway disease/COPD and PNA, resolved 2. Diastolic LV dysfunction with chronic class I-II NYHA classification LV congestive heart failure, resolving 3. CAD angina pectoris, stable 4. Permanent atrial fibrillation [id number] score of 7 on Coumadin, therapeutic INR, 5. HTN/hypertensive cardiovascular disease 6. DM, hypoglycemia 7. Hypothyroidism 8. CKD 9. 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 History of DVT 11. Chronic venous stasis 12. C. diff Ag + PLAN: 1. Continue Cardizem CD 180 qd 2. Continue Digoxin 0.125 qd with caution and close monitoring of Digoxin level 3. Continue Lasix 40 qd with close monitoring of renal function 4. Continue Cozaar 25 qd with close monitoring of renal function 5. A/C with Coumadin as per INR resumed 6. BD, Singulair, oral steroid taper with GI protection, O2 to keep Spo2 >90% 7. Complete oral Vanco course 8. D/C planning to SNF
[2017-10-02] MEDS: predniSONE 20 MG TABLET (UD) PO SCH (13:06)
[2017-10-02] MEDS: ALLOPURINOL 100 MG TABLET (FP) PO SCH (13:06)
[2017-10-02] MEDS: FUROSEMIDE 40 MG TABLET (FP) PO SCH (13:06)
[2017-10-02] MEDS: GABAPENTIN 100 MG CAPSULE (FP) PO SCH ×2 (13:07→21:38)
[2017-10-02] MEDS: POTASSIUM CHLORIDE ORAL LIQUID 20 MEQ/15 ML PO SCH ×2 (13:08→21:38)
[2017-10-02] MEDS: LOSARTAN POTASSIUM 25 MG TABLET PO SCH (13:08)
[2017-10-02] MEDS: PANTOPRAZOLE 40 MG TABLET (FP) PO SCH (13:08)
[2017-10-02] MEDS: DIGOXIN 0.125 MG TABLET (FP) PO SCH (13:10)
[2017-10-02] MEDS: TIOTROPIUM BROMIDE 18 MCG/INH (DEVICE W/ 5 CAPSULES) IH SCH (13:43)
[2017-10-02] MEDS: WARFARIN NA 2 MG TABLET (UD) PO SCH (18:23)
[2017-10-02] MEDS: MONTELUKAST NA 10 MG TABLET PO SCH (21:38)
[2017-10-02] MEDS: oxyCODONE HCL 5 MG TABLET PO PRN (23:18)
[2017-10-03] MEDS: VANCOMYCIN 250 MG/5 ML ORAL SOLUTION PO SCH ×4 (00:30→16:59)
[2017-10-03] MEDS: LEVOTHYROXINE NA 50 MCG TABLET (FP) PO SCH (06:00)
[2017-10-03] MEDS: INSULIN SLIDING SCALE (NOVOLOG) 1 VIAL SQ SCH ×3 (06:29→16:59)
[2017-10-03] MEDS ORDERED: GLIMEPIRIDE 1 MG TABLET (FP) PO SCH (07:00)
[2017-10-03 08:07] LABS: CHLORIDE 101 mmol/L (98-107); POTASSIUM 4.8 mmol/L (3.5-5.1); SODIUM 140 mmol/L (136-145)
[2017-10-03 08:10] LABS: INR 3.35 (0.82-1.09); PROTHROMBIN TIME (PATIENT) 37.9 SEC (9.98-11.88)
[2017-10-03 08:20] LABS: ANION GAP 6 (8-16); BLOOD UREA NITROGEN 24 mg/dL (7-18); CALCIUM 8.2 mg/dL (8.5-10.1); CO2 33 mmol/L (21-32); CREATININE 0.7 mg/dL (0.55-1.02); GLUCOSE,RANDOM 201 mg/dL (74-106)
[2017-10-03] MEDS: ARFORMOTEROL TARTRATE 15 MCG/2 ML VIAL NEB SCH (08:40)
[2017-10-03] MEDS ORDERED: FUROSEMIDE 40 MG/4 ML INJECTABLE VIAL IVPUSH ONE (09:29)
[2017-10-03] MEDS ORDERED: PT OWN MED DRAWER 7, Y5N ONE (10:16)
[2017-10-03] MEDS: LOSARTAN POTASSIUM 25 MG TABLET PO SCH (10:55)
[2017-10-03] MEDS: PANTOPRAZOLE 40 MG TABLET (FP) PO SCH (10:55)
[2017-10-03] MEDS: predniSONE 20 MG TABLET (UD) PO SCH (10:55)
[2017-10-03] MEDS: GABAPENTIN 100 MG CAPSULE (FP) PO SCH (10:55)
[2017-10-03] MEDS: POTASSIUM CHLORIDE ORAL LIQUID 20 MEQ/15 ML PO SCH (10:55)
[2017-10-03] MEDS: ALLOPURINOL 100 MG TABLET (FP) PO SCH (10:55)
[2017-10-03] MEDS: TIOTROPIUM BROMIDE 18 MCG/INH (DEVICE W/ 5 CAPSULES) IH SCH (10:55)
[2017-10-03] MEDS: DIGOXIN 0.125 MG TABLET (FP) PO SCH (10:55)
--- NOTE | 2017-10-03 11:38 | PN ---
Progress Note, Physician History of Present Illness: Dyspnea, non-productive cough and diarrhea improving. - Current Medication List Current Medications: Active Medications Albuterol Sulfate (Ventolin 0.083% Nebulizer Soln -) 1 amp NEB Q4H PRN PRN Reason: SHORT OF BREATH/WHEEZING Last Admin: 09/28/17 02:13 Dose: 1 amp Allopurinol (Zyloprim -) 100 mg PO DAILY [facility] Last Admin: 10/03/17 10:55 Dose: 100 mg Arformoterol Tartrate (Brovana (Restricted To Pulmonology/Resp) -) 1 amp NEB RBID [facility] Last Admin: 10/03/17 08:40 Dose: 1 amp Digoxin (Lanoxin -) 0.125 mg PO DAILY [facility] Last Admin: 10/03/17 10:55 Dose: 0.125 mg Diltiazem HCl (Cardizem Cd -) 180 mg PO DAILY [facility] Last Admin: 10/03/17 10:55 Dose: 180 mg Furosemide (Lasix -) 40 mg PO BID@0600,1400 [facility] Gabapentin (Neurontin -) 100 mg PO BID [facility] Last Admin: 10/03/17 10:55 Dose: 100 mg Glimepiride (Amaryl -) 1 mg PO DAILY@0700 [facility] Last Admin: 10/03/17 06:00 Dose: 1 mg Insulin Aspart (Novolog Vial Sliding Scale -) 1 vial SQ TIDAC [facility] PRN Reason: Protocol Last Admin: 10/03/17 06:29 Dose: 2 unit Levothyroxine Sodium (Synthroid -) 50 mcg PO DAILY@0700 [facility] Last Admin: 10/03/17 06:00 Dose: 50 mcg Losartan Potassium (Cozaar -) 25 mg PO DAILY [facility] Last Admin: 10/03/17 10:55 Dose: 25 mg Montelukast Sodium (Singulair -) 10 mg PO HS [facility] Last Admin: 10/02/17 21:38 Dose: 10 mg Oxycodone HCl (Roxicodone -) 5 mg PO Q12H PRN PRN Reason: PAIN LEVEL 1-5 Last Admin: 10/02/17 23:18 Dose: 5 mg Pantoprazole Sodium (Protonix -) 40 mg PO DAILY [facility] Last Admin: 10/03/17 10:55 Dose: 40 mg Potassium Chloride (Potassium Chloride Oral Liquid) 40 meq PO BID [facility] Last Admin: 10/03/17 10:55 Dose: 40 meq Prednisone (Deltasone -) 20 mg PO DAILY [facility] Last Admin: 10/03/17 10:55 Dose: 20 mg Tiotropium [place] (Spiriva -) 1 puff IH DAILY [facility] Last Admin: 10/03/17 10:55 Dose: Not Given Vancomycin HCl (Vancomycin Oral Solution) 125 mg PO Q6HPO [facility] Last Admin: 10/03/17 06:00 Dose: 125 mg Warfarin Sodium (Coumadin -) 4 mg PO DAILY@1800 [facility] Last Admin: 10/02/17 18:23 Dose: 4 mg - Objective Vital Signs: Vital Signs Temperature 98.8 F 10/02/17 22:00 Pulse Rate 88 10/03/17 10:55 Respiratory Rate 20 10/02/17 22:00 Blood Pressure 142/66 10/02/17 22:00 O2 Sat by Pulse Oximetry (%) 94 L 10/02/17 21:00 Constitutional: Yes: No Distress, Calm Neck: Yes: Supple Cardiovascular: Yes: Pulse Irregular Respiratory: Yes: Regular, Diminished Gastrointestinal: Yes: Normal Bowel Sounds, Soft Edema: Yes Edema: LLE: Trace, RLE: Trace Labs: CBC, BMP 10/01/17 06:00 10/03/17 06:30 INR, PTT INR 3.35 (0.82-1.09) H D 10/03/17 06:30 - ....Imaging Ultrasound: Report Reviewed (Neg RLE DVT) Problem List - Problems (1) Acute on chronic diastolic (congestive) heart failure Code(s): I50.33 - ACUTE ON CHRONIC DIASTOLIC (CONGESTIVE) HEART FAILURE (2) Acute on chronic respiratory failure with hypoxia and hypercapnia Code(s): J96.21 - ACUTE AND CHRONIC RESPIRATORY FAILURE WITH HYPOXIA; J96.22 - ACUTE AND CHRONIC RESPIRATORY FAILURE WITH HYPERCAPNIA (3) COPD (chronic obstructive pulmonary disease) Code(s): J44.9 - CHRONIC OBSTRUCTIVE PULMONARY DISEASE, UNSPECIFIED Qualifiers: COPD type: unspecified COPD Qualified Code(s): J44.9 - Chronic obstructive pulmonary disease, unspecified (4) Pneumonia Code(s): J18.9 - PNEUMONIA, UNSPECIFIED ORGANISM Qualifiers: Pneumonia type: due to unspecified organism (5) Atrial fibrillation Code(s): I48.91 - UNSPECIFIED ATRIAL FIBRILLATION Qualifiers: Atrial fibrillation type: chronic Qualified Code(s): I48.2 - Chronic atrial fibrillation (6) Chronic venous stasis dermatitis of both lower extremities Code(s): I87.2 - VENOUS INSUFFICIENCY (CHRONIC) (PERIPHERAL) (7) Diabetes Code(s): E11.9 - TYPE 2 DIABETES MELLITUS WITHOUT COMPLICATIONS Qualifiers: Diabetes mellitus type: type 2 Diabetes mellitus complication status: with hyperglycemia Diabetes mellitus exterminator termite insulin use: without exterminator termite use Qualified Code(s): E11.65 - Type 2 diabetes mellitus with hyperglycemia (8) HTN (hypertension) Code(s): I10 - ESSENTIAL (PRIMARY) HYPERTENSION Qualifiers: Hypertension type: essential hypertension Qualified Code(s): I10 - Essential (primary) hypertension (9) Morbid obesity with BMI of 45.0-49.9, adult Code(s): E66.01 - MORBID (SEVERE) OBESITY DUE TO EXCESS CALORIES; Z68.42 - BODY MASS INDEX (BMI) 45.0-49.9, ADULT (10) Hypothyroidism Code(s): E03.9 - HYPOTHYROIDISM, UNSPECIFIED (11) Chronic anticoagulation Code(s): Z79.01 - JAIL (CURRENT) USE OF ANTICOAGULANTS (12) Clostridium difficile colitis Code(s): A04.72 - ENTEROCOLITIS D/T CLOSTRIDIUM DIFFICILE, NOT SPCF RECUR Assessment/Plan 1. Acute on chronic hypoxemic respiratory failure related to exacerbation of reactive airway disease/COPD and PNA, resolved 2. Diastolic LV dysfunction with chronic class I-II NYHA classification LV congestive heart failure, resolving 3. CAD angina pectoris, stable 4. Permanent atrial fibrillation [id number] score of 7 on Coumadin, supratherapeutic INR, 5. HTN/hypertensive cardiovascular disease 6. DM, hypoglycemia 7. Hypothyroidism 8. CKD 9. 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 History of DVT 11. Chronic venous stasis 12. C. diff Ag + PLAN: 1. Continue Cardizem CD 180 qd 2. Continue Digoxin 0.125 qd with caution and close monitoring of Digoxin level 3. Continue Lasix 40 bid with close monitoring of renal function 4. Continue Cozaar 25 qd with close monitoring of renal function 5. A/C with Coumadin as per INR resumed 6. BD, Singulair, oral steroid taper with GI protection, O2 to keep Spo2 >90% 7. Complete oral Vanco course 8. D/C planning to SNF
--- NOTE | 2017-10-03 11:48 | PN ---
Progress Note (short form) - Note Progress Note: PULMONARY VSS/AFEBRILE ANICTERIC DISTANT B/L BREATH SOUNDS S1S2 OBESE SOFT NO EDEMA LABS/MEDS/NOTES/IMAGES/MICRO NOTED IMP ACUTE ON CHRONIC HYPOXEMIC RESPIRATORY FAILURE RESOLVED COPD CHF ASHD RLL PNEUMONIA AFIB DM H/O DVT HYPOTHYROID PLAN IV STEROIDS CHANGED TO ORAL ANTIBIOTICS PER ID LASIX INHALED BRONCHODILATORS O2 DAILY [facility]
[2017-10-03 15:47] VITALS: BP 120/46; PULSE 76; TEMP 97.3
--- NOTE | 2017-10-03 19:56 | DS ---
Physical Examination Vital Signs: Vital Signs Temperature 97.3 F L 10/03/17 15:45 Pulse Rate 76 10/03/17 15:45 Respiratory Rate 20 10/03/17 15:45 Blood Pressure 120/46 10/03/17 15:45 O2 Sat by Pulse Oximetry (%) 95 10/03/17 09:00 Constitutional: Yes: Calm Cardiovascular: Yes: Pulse Irregular Respiratory: Yes: Diminished, Rhonchi (few rhonchi at each base). No: Wheezes Gastrointestinal: Yes: Abdomen, Obese (abdominal pannus) Musculoskeletal: Yes: Joint Stiffness Edema: LLE: 1+ (with stasis changes bilaterally), RLE: 2+ Neurological: Yes: Alert, Oriented Labs: CBC, BMP 10/01/17 06:00 10/03/17 06:30 Discharge Summary Reason For Visit: COPD acute exacerbation of COPD acute on chronic CHF Morbid obesity Diabetes mellitus uncontrolled Abdominal pannus Hypertension Hypothyroidism Severe DJD of the knees Procedures: Principal: main focus was shortness of breath and wheezing and is had a be treated by intravenous steroids and Lasix and chest x-ray EKG and followup lab Other Procedures: difficulty with both hypoglycemia and hyperglycemia an abnormal INR's. Followup lab was ordered daily Hospital Course: slowly improving and inhibited by morbid obesity and degenerative joint disease of the knees Also developed some pedal edema or in her Lasix had a be increased to 40 mg twice a day. In SNF orders were written for multiple INR and basic profiles weekly. Condition: Stable - Instructions Diet, Activity, Other Instructions: no added salt diabetic diet Pro time 3 times a week and basic profile 3 times a week to check lytes. BGM's as ordered PT twice a day as needed Before discharge patient must have portable oxygen and home oxygen in place. Patient when home takes Coumadin 4mg 6 days a week and none on Tuesdays INR Referrals: Garret Ivan MD [Staff Physician] - Xavi Storey MD [Primary Care Provider] - Shaheen Leal MD [Staff Physician] - Disposition: HALFWAY FACILITY - Home Medications Comprehensive Discharge Medication List: Ambulatory Orders Albuterol Sulfate Inhaler - [Ventolin HFA Inhaler -] 2 inh IH Q6H PRN #0 inh 04/27 Allopurinol [Zyloprim -] 100 mg PO DAILY #0 tablet 06/22/13 Diltiazem Cd [Cardizem Cd -] 180 mg PO DAILY #0 cap.cd.24h 06/22/13 Montelukast Na [Singulair -] 10 mg PO HS #0 tablet 06/22/13 Acetaminophen [Tylenol .Regular Strength -] 650 mg PO Q6H PRN #240 tablet Potassium Chloride [K-Dur -] 20 meq PO TID tab 04/29/17 Gabapentin [Neurontin -] 100 mg PO BID #60 cap 05/28/17 Losartan Potassium [Cozaar -] 25 mg PO DAILY #30 tablet 05/28/17 Warfarin Na [Coumadin -] 4 mg PO DAILY@1800 tablet 05/28/17 Digoxin [Lanoxin -] 0.125 mg PO DAILY 09/24/17 Pantoprazole Sodium [Protonix] 40 mg PO DAILY 09/24/17 Albuterol 0.083% Nebulizer [place] [Ventolin 0.083% Nebulizer Soln -] 1 amp NEB Q4H PRN amp 10/02/17 Arformoterol Tartrate [Brovana -] 1 amp NEB RBID amp 10/02/17 Furosemide [Lasix -] 40 mg PO DAILY tablet 10/02/17 Glimepiride [Glimepiride -] 1 mg PO DAILY@0700 tablet 10/02/17 Insulin Sliding Scale [Novolog Vial Sliding Scale -] 1 vial SQ TIDAC units Levothyroxine [Synthroid -] 50 mcg PO DAILY 30 Days #30 tablet 10/02/17 Oxycodone HCl [Roxicodone -] 5 mg PO Q12H PRN #30 tablet MDD 2 10/02/17 Prednisone [Deltasone -] 20 mg PO DAILY tablet 10/02/17 Tiotropium [place] [Spiriva] 1 puff IH DAILY inh 10/02/17 Vancomycin Oral Solution 125 mg PO Q6HPO ml 10/02/17 Furosemide [Lasix -] 40 mg PO BID@0600,1400 tablet 10/03/17
[2017-10-04] MEDS ORDERED: FUROSEMIDE 40 MG TABLET (FP) PO SCH (06:00)
== END 2017-10-03 17:53 | DRG 291 ==
LOC: JER 13:23 → JERBED 20:33 → J7W 09-25 12:51
PROVIDERS: ADMIT Internal Medicine; ATTEND Internal Medicine
PROC: 3E0F7GC Introduction of Other Therapeutic Substance into Respiratory Tract, Via Natural or Artificial Opening (ICD-10-PCS; principal; 2017-09-23)
DX: I11.0 Hypertensive heart disease with heart failure (principal); J96.21 Acute and chronic respiratory failure with hypoxia; J18.9 Pneumonia, unspecified organism; Z68.42 Body mass index [BMI] 45.0-49.9, adult; J44.1 Chronic obstructive pulmonary disease with (acute) exacerbation; A04.72 Enterocolitis due to Clostridium difficile, not specified as recurrent; J98.11 Atelectasis; L97.528 Non-pressure chronic ulcer of other part of left foot with other specified severity; I50.33 Acute on chronic diastolic (congestive) heart failure; I48.2 Chronic atrial fibrillation; E11.621 Type 2 diabetes mellitus with foot ulcer; F03.90 Unspecified dementia, unspecified severity, without behavioral disturbance, psychotic disturbance, mood disturbance, and anxiety; I87.2 Venous insufficiency (chronic) (peripheral); K44.9 Diaphragmatic hernia without obstruction or gangrene; E11.51 Type 2 diabetes mellitus with diabetic peripheral angiopathy without gangrene; E11.65 Type 2 diabetes mellitus with hyperglycemia; E78.00 Pure hypercholesterolemia, unspecified; E03.9 Hypothyroidism, unspecified; E66.01 Morbid (severe) obesity due to excess calories; I25.110 Atherosclerotic heart disease of native coronary artery with unstable angina pectoris; M17.0 Bilateral primary osteoarthritis of knee; E65 Localized adiposity; D72.828 Other elevated white blood cell count; E87.6 Hypokalemia; W08.XXXA Fall from other furniture, initial encounter; Y92.230 Patient room in hospital as the place of occurrence of the external cause; R79.1 Abnormal coagulation profile; Z79.01 Long term (current) use of anticoagulants; Z89.421 Acquired absence of other right toe(s); Z86.718 Personal history of other venous thrombosis and embolism; Z99.81 Dependence on supplemental oxygen
CPT/HCPCS: 36415; 36600; 70450-TC; 71045-TC; 80048; 80053; 80162; 81003; 81015; 82803; 82962; 83036; 83735; 84100; 84439; 84443; 85025; 85610; 87040; 87070; 87077; 87086; 87205; 87324; 87449; 87899; 93005; 93010; 93971-TC; 94010; 94640; 97116-GP; 97161-GP; 99285-25

== ENCOUNTER 2018-04-02 16:50 | Inpatient (IN) | payer OTHER ==
--- NOTE | 2018-04-02 17:39 | PDOC ---
History of Present Illness - General Chief Complaint: Shortness of Breath Stated Complaint: PCP SENT/SHORTNESS OF BREATH History Source: Patient - History of Present Illness Initial Comments: The patient is an 83F w/ a history of COPD and CHF who presents with increasing dyspnea and malaise for the last three days despite adherence to her medications. She states that she decided to present today due to her dyspnea being untolerable at home anymore . She endorses an associated productive cough with yellow/light sputum. She denies any other acute change in her chronic symptoms. 04/02/18 17:47 Past History - Past Medical History Allergies/Adverse Reactions: Allergies Allergy/AdvReac Type Severity Reaction Status Date / Time No Known Allergies Allergy Verified 04/02/18 17:20 Home Medications: Ambulatory Orders Albuterol Sulfate Inhaler - [Ventolin HFA Inhaler -] 2 inh IH Q6H PRN #0 inh 04/27 Allopurinol [Zyloprim -] 100 mg PO DAILY #0 tablet 06/22/13 Diltiazem Cd [Cardizem Cd -] 180 mg PO DAILY #0 cap.cd.24h 06/22/13 Acetaminophen [Tylenol .Regular Strength -] 650 mg PO Q6H PRN #240 tablet Potassium Chloride [K-Dur -] 20 meq PO TID tab 04/29/17 Losartan Potassium [Cozaar -] 25 mg PO DAILY #30 tablet 05/28/17 Warfarin Na [Coumadin -] 4 mg PO DAILY@1800 tablet 05/28/17 Digoxin [Lanoxin -] 0.125 mg PO DAILY 09/24/17 Albuterol 0.083% Nebulizer [place] [Ventolin 0.083% Nebulizer Soln -] 1 amp NEB Q4H PRN amp 10/02/17 Arformoterol Tartrate [Brovana -] 1 amp NEB RBID amp 10/02/17 Glimepiride [Glimepiride -] 1 mg PO DAILY@0700 tablet 10/02/17 Insulin Sliding Scale [Novolog Vial Sliding Scale -] 1 vial SQ TIDAC units Levothyroxine [Synthroid -] 50 mcg PO DAILY 30 Days #30 tablet 10/02/17 Tiotropium [place] [Spiriva] 1 puff IH DAILY inh 10/02/17 oxyCODONE HCL [Roxicodone -] 5 mg PO Q12H PRN #30 tablet MDD 2 10/02/17 predniSONE [Deltasone -] 20 mg PO DAILY tablet 10/02/17 Furosemide [Lasix -] 40 mg PO BID@0600,1400 tablet 10/03/17 Gabapentin [Neurontin -] 100 mg PO DAILY 04/02/18 Anemia: No Asthma: Yes Cancer: No Cardiac Disorders: Yes (ATRIAL FIBRILLATION) CVA: No COPD: Yes CHF: Yes DVT: No Dementia: Yes Diabetes: Yes GI Disorders: (HIATAL HERNIA, OBSTRUCTION) Disorders: Yes (uti) HTN: Yes Hypercholesterolemia: Yes Liver Disease: No Seizures: No Thyroid Disease: Yes (HYPO) - Surgical History Abdominal Surgery: Yes (HERNIA REPAIR X 3) Appendectomy: Yes (RUPTURED) Cardiac Surgery: Yes (cardioversion x 2) Cholecystectomy: Yes Lung Surgery: No Neurologic Surgery: No Orthopedic Surgery: No - Immunization History Immunization Up to Date: Yes - Suicide/Smoking/Psychosocial Hx Smoking Status: No Smoking History: Never smoked Have you smoked in the past 12 months: No Number of Cigarettes Smoked Daily: 0 If you are a former smoker, when did you quit?: 2007 Cigars Per Day: 20 Information on smoking cessation initiated: No Hx Alcohol Use: No Drug/Substance Use Hx: No Substance Use Type: None Hx Substance Use Treatment: No Review of Systems - Review of Systems Constitutional: Yes: Chills, Diaphoresis, Malaise. No: Fever HEENTM: No: Blurred Vision, Nose Congestion, Throat Pain, Throat Swelling, Difficulty Swallowing Respiratory: Yes: Cough, Shortness of Breath, Wheezing Cardiac (ROS): Yes: Edema (chronic BLE), Irregular Heart Rate. No: Chest Pain, Palpitations, Syncope ABD/GI: No: Nausea, Rectal Bleeding, Vomiting : No: Dysuria, Hematuria Musculoskeletal: Yes: Back Pain (chronic). No: Muscle Weakness Integumentary: Yes: Other (reddness and irriation under her panus; BLE chronic skin changes/wounds) Neurological: No: Headache, Numbness, Paresthesia Psychiatric: Yes: Anxiety Endocrine: Yes: Excessive Sweating. No: Intolerance to Heat, Increased Hunger Hematologic/Lymphatic: No: Blood Clots, Easy Bleeding *Physical Exam - Vital Signs Last Vital Signs Temp Pulse Resp BP Pulse Ox 98.4 F 106 H 20 137/64 94 L 04/02/18 17:21 04/02/18 17:21 04/02/18 17:21 04/02/18 17:21 04/02/18 17:21 - Physical Exam General Appearance: Yes: Moderate Distress, Obese HEENT: positive: EOMI, JAMEL, Normal ENT Inspection. negative: Scleral Icterus ( R), Scleral Icterus (L), Nasal Congestion, Rhinorrhea, Hearing Decreased Neck: positive: Trachea midline, Supple. negative: Tender, Decreased range of motion Respiratory/Chest: positive: Respiratory Distress (moderate), Wheezing (audible) , Other (conversational dyspnea ). negative: Chest Tender Cardiovascular: positive: Edema (BLE), JVD (mild), Irregularly Irregular Vascular Pulses: Femoral (R): 2+, Femoral (L): 2+, Carotid (R): 2+, Carotid (L) : 2+ Comments:: Radial 2+ B/L 04/04/18 03:12 Gastrointestinal/Abdominal: positive: Normal Bowel Sounds, Soft, Protuberent, Other (Panniculitis & cellulitis). negative: Tender, Guarding, Rebound Musculoskeletal: positive: Decreased Range of Motion (BLE 2/2 swelling). negative: CVA Tenderness Extremity: positive: Pedal Edema, Swelling, Other (BLE swelling, cellulitis, and serous drainage which were wrapped in bandages) Neurologic: positive: wind science and planning II-XII NML intact, Fully Oriented, Alert, Normal Mood/ Affect, Normal Response ED Treatment Course - LABORATORY CBC & Chemistry Diagram: 04/03/18 08:00 04/03/18 08:00 Medical Decision Making - Medical Decision Making The patient is an 83F with a history of COPD (2L NC at home), a-fib (warfarin), and CHF who presents with concern for COPD exacerbation, associated cough with yellow sputum, and increased O2 requirements. Patient with audible wheezing and hypoxia on arrival. Ddx: COPD exacerbation, CHF exacerbation, PNA, cellulitis/bacteremia, UTI, ACS, PE ED Course Patient given duo-nebs and steroids for likely COPD exacerbation as well as antibiotics Will also investigate for other sources, BMP, CBC, UA, Cardiac enzymes, coags, blood cultures sent CXR pending Concern for panniculitis and BLE cellulitis, patient given abx Dispo: Pt will need admission for COPD exacerbation *DC/Admit/Observation/Transfer Diagnosis at time of Disposition: COPD exacerbation - Discharge Dispostion Condition at time of disposition: Guarded Decision to Admit order: Yes - Referrals - Patient Instructions - Post Discharge Activity
[2018-04-02] MEDS ORDERED: ALBUTEROL SO4 2.5/IPRATROPIUM 0.5 INH SOL 3 ML VIAL.NEB. NEB ONE ×4 (17:56→21:14)
[2018-04-02 18:12] LABS: URINE APPEARANCE SLCLOUDY; URINE BILIRUBIN NEGATIVE (<2.0 mg/dL); URINE COLOR LTYELLOW; URINE GLUCOSE (UA) NEGATIVE (NEGATIVE); URINE KETONE NEGATIVE (NEGATIVE); URINE NITRITE NEGATIVE (NEGATIVE); URINE PROTEIN NEGATIVE (NEGATIVE); URINE UROBILINOGEN NEGATIVE mg/dL (0.2-1.0)
[2018-04-02 18:21] LABS: URINE LEUK ESTERASE 3+ (NEGATIVE)
[2018-04-02 18:27] LABS: EPI CELLS RARE /HPF (FEW); URINE BACTERIA RARE /hpf (NONE SEEN); URINE MUCUS RARE
[2018-04-02] MEDS ORDERED: VANCOMYCIN 1,000 MG in DEXTROSE 5%-WATER - 250 ML IVPB ONE (18:30)
[2018-04-02] MEDS ORDERED: methylPREDNISolone NA SUCC 125 MG/2 ML VIAL IVPB ONE (18:33)
[2018-04-02] MEDS ORDERED: VANCOMYCIN 1 GRAM (PRE-DOCKED) 1,000 MG/250 ML BAG IVPB ONE (19:04)
[2018-04-02] MEDS ORDERED: methylPREDNISolone NA SUCC 125 MG/2 ML VIAL ONE (19:04)
--- NOTE | 2018-04-02 19:49 | PDOC ---
Attending Attestation - HPI HPI: 04/02/18 17:47 The patient is an 83 year old female with significant history COPD and CHF brought in by EMS for several days of progressively worsening shortness of breath with associated productive cough with yelow sputum. - Physicial Exam PE: 04/02/18 20:37 Constitutional: Awake, alert, oriented. +Respiratory distress. Head: Normocephalic. Atraumatic Eyes: PERRL. EOMI. Conjunctivae are not pale. ENT: Mucous membranes are moist and intact. Posterior pharynx without exudates or erythema. Uvula midline. Poor dentition. Neck: Supple. Full ROM. No lymphadenopathy. Cardiovascular: Irregularly irregular. S1, S2 regular. Distal pulses are 2+ and symmetric. Pulmonary/Chest: +Tachypneic with conversational dyspnea. Audible wheezing diffusely. Abdominal: Large protuberant abdomen with panniculitis and cellulitis. Back: No CVA tenderness. Musculoskeletal: No cyanosis. Full range of motion in all extremities. No calf tenderness. Radial/pedal pulses are intact and 2+ bilaterally Skin: Cellulitis of the bilateral lower extremities with serrous drainage, wrapped in bandages. Neurological: Alert and oriented to person, place, and time. Cranial nerves II -XII are grossly intact. Gait deferred. Psychiatric: Good eye contact. Normal interaction, affect and behavior. - Critical Care Time Total Critical Care Time: 30 Critical Care Statement: The care of this patient involved high complexity decision making to prevent further life threatening deterioration of the patient 's condition and/or to evaluate & treat vital organ system(s) failure or risk of failure. <Lydia Montaño - Last Filed: 04/02/18 20:35> - Resident Resident Name: Alden Saenz - ED Attending Attestation I have performed the following: I have examined & evaluated the patient, The case was reviewed & discussed with the resident, I agree w/resident's findings & plan, Exceptions are as noted - Critical Care Time Total Critical Care Time: 45 Critical Care Statement: The care of this patient involved high complexity decision making to prevent further life threatening deterioration of the patient 's condition and/or to evaluate & treat vital organ system(s) failure or risk of failure. - Medical Decision Making 04/02/18 19:48 I, Dr. Kayla Parra, DO, attest that this document has been prepared under my direction and personally reviewed by me in its entirety. I further attest, that it accurately reflects all work, treatment, procedures and medical decision -making performed by me. 04/02/18 20:13 a/p: 83yo 04/02/18 21:06 a/p: 83yo female with SOB -hx of copd and chf -concern for copd exacerbation -increased o2 demand -audible wheezing -hypoxic upon arrival -will start nebs, steroids, abx -concern for paniculitis -lower extremity wounds -will need inpt admission -will need bipap for resp distress -conversational dyspnea <Kayla Parra - Last Filed: 04/02/18 21:10> Heart Score/ECG Review - ECG Intrepretation Comment:: 04/02/18 20:12 afib at 102, RBBB, mild st depression lateral leads, abnl ekg <Kayla Parra - Last Filed: 04/02/18 21:10>
[2018-04-02 19:53] LABS: HEMATOCRIT 36.4 % (32.4-45.2); HEMOGLOBIN 11.5 GM/dL (10.7-15.3); MCH 24.9 pg (25.7-33.7); MCHC 31.7 g/dl (32.0-36.0); MEAN CELL VOLUME 78.7 fl (80-96); MEAN PLT VOLUME 7.6 fl (7.5-11.1); PLATELET COUNT 329 K/MM3 (134-434); RBC 4.63 M/mm3 (3.60-5.2); RDW 19.8 % (11.6-15.6); WHITE BLOOD COUNT 6.5 K/mm3 (4.0-10.0)
[2018-04-02 19:56] LABS: VENOUS PC02 55.3 mmHg (38-52); VENOUS PH 7.37 (7.32-7.42); VENOUS PO2 41.9 mmHg (28-48)
[2018-04-02 20:12] LABS: ALBUMIN 3.4 g/dl (3.4-5.0); ALK PHOS 136 U/L (45-117); ANION GAP 8 (8-16); BILIRUBIN,TOTAL 0.7 mg/dL (0.2-1.0); BLOOD UREA NITROGEN 19 mg/dL (7-18); CALCIUM 8.8 mg/dL (8.5-10.1); CHLORIDE 105 mmol/L (98-107); CO2 30 mmol/L (21-32); CREATININE 0.8 mg/dL (0.55-1.02); GLUCOSE,RANDOM 93 mg/dL (74-106); POTASSIUM 3.6 mmol/L (3.5-5.1); SGOT/AST 28 U/L (15-37); SGPT/ALT 15 U/L (12-78); SODIUM 143 mmol/L (136-145); TOT PROT 7.4 g/dl (6.4-8.2)
[2018-04-02] MEDS ORDERED: oxyCODONE HCL 5 MG TABLET PO ONE (20:12)
[2018-04-02 20:13] LABS: N-TERMINAL BNP 252.34 pg/ml (5-450)
[2018-04-02] MEDS ORDERED: oxyCODONE HCL 5 MG TABLET ONE (20:14)
[2018-04-02 21:04] LABS: INR 2.26 (0.82-1.09); PROTHROMBIN TIME (PATIENT) 25.5 SEC (9.7-13.0)
--- NOTE | 2018-04-02 21:11 | PDOC ---
*Physical Exam - Vital Signs Last Vital Signs Temp Pulse Resp BP Pulse Ox 98.4 F 106 H 20 137/64 94 L 04/02/18 17:21 04/02/18 17:21 04/02/18 17:21 04/02/18 17:21 04/02/18 17:21 - Physical Exam Comments: 04/02/18 21:09 GENERAL: Awake, alert, and fully oriented, in moderate distress HEAD: No signs of trauma, normocephalic, atraumatic EYES: PERRLA, EOMI, sclera anicteric, conjunctiva clear ENT: Auricles normal inspection, hearing grossly normal, nares patent, oropharynx clear without exudates. Moist mucosa NECK: Normal ROM, supple, no lymphadenopathy, JVD, or masses LUNGS: Moderate distress, coarse breath sounds bilaterally with wheezes HEART: Regular rate and rhythm, normal S1 and S2, no murmurs, rubs or gallops, peripheral pulses normal and equal bilaterally. ABDOMEN: Soft, nontender, normoactive bowel sounds. No guarding, no rebound. No masses EXTREMITIES: Chronic wounds bilaterally with small amount discharge. NEUROLOGICAL: Cranial nerves II through XII grossly intact. Normal speech, no focal sensorimotor deficits SKIN: Warm, Dry, normal turgor, no rashes or lesions noted. ED Treatment Course - LABORATORY CBC & Chemistry Diagram: 04/02/18 18:30 04/02/18 18:30 - ADDITIONAL ORDERS Additional order review: Laboratory Results 04/02/18 04/02/18 04/02/18 18:30 18:30 18:30 VBG pH 7.37 POC VBG pCO2 55.3 H POC VBG pO2 41.9 Mixed VBG HCO3 30.9 H Sodium 143 Potassium 3.6 Chloride 105 Carbon Dioxide 30 Anion Gap 8 BUN 19 H Creatinine 0.8 Creat Clearance w eGFR > 60 Random Glucose 93 Calcium 8.8 Total Bilirubin 0.7 AST 28 ALT 15 Alkaline Phosphatase 136 H Creatine Kinase 88 Troponin I < 0.02 B-Natriuretic Peptide 252.34 Total Protein 7.4 Albumin 3.4 Urine Color Urine Appearance Urine pH Ur Specific [place] Urine Protein Urine Glucose (UA) Urine Ketones Urine Blood Urine Nitrite Urine Bilirubin Urine Urobilinogen Ur Leukocyte Esterase Urine WBC (Auto) Urine RBC (Auto) Ur Epithelial Cells Urine Bacteria Urine Mucus 04/02/18 18:00 VBG pH POC VBG pCO2 POC VBG pO2 Mixed VBG HCO3 Sodium Potassium Chloride Carbon Dioxide Anion Gap BUN Creatinine Creat Clearance w eGFR Random Glucose Calcium Total Bilirubin AST ALT Alkaline Phosphatase Creatine Kinase Troponin I B-Natriuretic Peptide Total Protein Albumin Urine Color Ltyellow Urine Appearance Slcloudy Urine pH 5.0 Ur Specific [place] 1.008 Urine Protein Negative Urine Glucose (UA) Negative Urine Ketones Negative Urine Blood Negative Urine Nitrite Negative Urine Bilirubin Negative Urine Urobilinogen Negative Ur Leukocyte Esterase 3+ H Urine WBC (Auto) 224 Urine RBC (Auto) 3 Ur Epithelial Cells Rare Urine Bacteria Rare Urine Mucus Rare 04/02/18 18:30 RBC 4.63 MCV 78.7 L MCHC 31.7 L RDW 19.8 H MPV 7.6 - Medications Given in the ED: ED Medications Discontinued Medications Generic Name Dose Route Start Last Admin Trade Name Freq PRN Reason Stop Dose Admin Albuterol/Ipratropium 1 amp 04/02/18 17:56 04/02/18 18:49 Duoneb - NEB 04/02/18 17:57 1 amp ONCE ONE Administration Vancomycin HCl 1,000 mg/ 250 mls @ 166.667 mls/hr 04/02/18 18:30 04/02/18 19: 09 Dextrose IVPB 04/02/18 19:59 166.667 mls/hr ONCE ONE Administration Protocol Methylprednisolone Sodium Succinate 125 mg 04/02/18 18:33 04/02/18 19:09 Solu-Medrol - IVPB 04/02/18 18:34 125 mg ONCE ONE Administration Oxycodone HCl 10 mg 04/02/18 20:12 04/02/18 20:21 Roxicodone - PO 04/02/18 20:13 10 mg ONCE ONE Administration Medical Decision Making - Medical Decision Making 04/02/18 21:[address] Walker. Patient is 83F with history of DM, afib, COPD , CHF, hypothyroidisim here today with shortness of breath. DDx weighted towards COPD vs CHF exacerbation. Patient at 85%, audible wheezes, given additional duonebs and started on bipap. Patient will be admitted. 04/02/18 21:48 Laboratory Tests 04/02/18 04/02/18 04/02/18 18:00 18:00 18:30 WBC 6.5 Hgb 11.5 INR VBG pH POC VBG pCO2 Troponin I B-Natriuretic Peptide Ur Leukocyte Esterase 3+ H Urine WBC (Auto) 224 Digoxin 0.57 L 04/02/18 04/02/18 04/02/18 18:30 18:30 18:30 WBC Hgb INR 2.26 H D VBG pH 7.37 POC VBG pCO2 55.3 H Troponin I < 0.02 B-Natriuretic Peptide 252.34 Ur Leukocyte Esterase Urine WBC (Auto) Digoxin CBC normal. Troponin and BNP normal. INR elevated, on coumadin. UA+ for UTI. Digoxin level low. Patient covered with vancomycin and meropenem given history of multiple drug resistant infections. Patient did not tolerate bipap, but respiratory status improved with additional duonebs. Satting in mid 90s now, talking in full sentences. Will admit. *DC/Admit/Observation/Transfer Diagnosis at time of Disposition: COPD exacerbation - Discharge Dispostion Condition at time of disposition: Stable Decision to Admit order: Yes - Referrals Referrals: Xavi Storey MD [Primary Care Provider] - - Patient Instructions - Post Discharge Activity
[2018-04-02] MEDS ORDERED: MEROPENEM 1 GM in DEXTROSE 5%-WATER 100 ML IVPB ONE (21:15)
--- NOTE | 2018-04-03 00:42 | PN ---
Teaching Attending Note Name of Resident: Rufus Mcpherson ATTENDING PHYSICIAN STATEMENT I saw and evaluated the patient. I reviewed the resident's note and discussed the case with the resident. I agree with the resident's findings and plan as documented. SUBJECTIVE: Patient is an 83 year old woman with a history of COPD, afib on coumadin and CHF (no recent ECHO) who presents with increasing dyspnea for the last three days. She states that she decided to present today due to her dyspnea being intolerable at home. She has associated productive cough with yellow/light sputum. OBJECTIVE: Obese. In no acute distress - post treatment Vital Signs Period Temp Pulse Resp BP Sys/Luke Pulse Ox Last 24 Hr 98.4 F 106 20 137/64 94-98 HEENT: No Jaundice, eye redness or discharge, PERRLA, EOMI. Poor dentition. Normocephalic, atraumatic. External ears are normal and hearing is grossly intact. No nasal discharge. Neck: Supple, nontender. No palpable adenopathy or thyromegaly. No JVD Chest: Good effort. Prolonged expiration with wheezing. Clear to percussion. Heart: Irregularly irregular. No S3, rub or murmur Abdomen: Pendulous obese abdomen; soft, nontender and no HSM. No rebound or guarding. Normoactive bowel sounds. Ext: Peripheral pulses intact. No leg edema. Right foot second digit amputation. Skin: Warm and dry. No petechiae, rash or ecchymosis. Non pitting leg edema. Chronic stasis dermatitis; bilateral lower leg wounds; right leg wound with surrounding erythema and wound discharge. Neuro: Alert. Oriented x3. CN 2-12 grossly intact. Globally weak. Uses walker. Sensation grossly intact in all four extremities and DTR are symmetric. Home Medications Medication Instructions Recorded Albuterol Sulfate Inhaler - 2 inh IH Q6H PRN #0 inh 06/22/13 [Ventolin HFA Inhaler -] Allopurinol [Zyloprim -] 100 mg PO DAILY #0 tablet 06/22/13 Diltiazem Cd [Cardizem Cd -] 180 mg PO DAILY #0 cap.cd.24h 06/22/13 Acetaminophen [Tylenol .Regular 650 mg PO Q6H PRN #240 tablet 06/23/13 Strength -] Potassium Chloride [K-Dur -] 20 meq PO TID tab 04/29/17 Losartan Potassium [Cozaar -] 25 mg PO DAILY #30 tablet 05/28/17 Warfarin Na [Coumadin -] 4 mg PO DAILY@1800 tablet 05/28/17 Digoxin [Lanoxin -] 0.125 mg PO DAILY 09/24/17 Albuterol 0.083% Nebulizer Bonnie 1 amp NEB Q4H PRN amp 10/02/17 [Ventolin 0.083% Nebulizer Soln -] Arformoterol Tartrate [Brovana -] 1 amp NEB RBID amp 10/02/17 Glimepiride [Glimepiride -] 1 mg PO DAILY@0700 tablet 10/02/17 Insulin Sliding Scale [Novolog 1 vial SQ TIDAC units 10/02/17 Vial Sliding Scale -] Levothyroxine [Synthroid -] 50 mcg PO DAILY 30 Days #30 tablet 10/02/17 Tiotropium [place] [Spiriva] 1 puff IH DAILY inh 10/02/17 oxyCODONE HCL [Roxicodone -] 5 mg PO Q12H PRN #30 tablet MDD 2 10/02/17 predniSONE [Deltasone -] 20 mg PO DAILY tablet 10/02/17 Furosemide [Lasix -] 40 mg PO BID@0600,1400 tablet 10/03/17 Gabapentin [Neurontin -] 100 mg PO DAILY 04/02/18 Abnormal Lab Results 04/02/18 04/02/18 04/02/18 18:00 18:00 18:30 MCV 78.7 L MCH 24.9 L MCHC 31.7 L RDW 19.8 H PT with INR INR POC VBG pCO2 Mixed VBG HCO3 BUN Alkaline Phosphatase Ur Leukocyte Esterase 3+ H Digoxin 0.57 L 04/02/18 04/02/18 04/02/18 18:30 18:30 18:30 MCV MCH MCHC RDW PT with INR 25.50 H INR 2.26 H D POC VBG pCO2 55.3 H Mixed VBG HCO3 30.9 H BUN 19 H Alkaline Phosphatase 136 H Ur Leukocyte Esterase Digoxin Current Medications Generic Name Dose Route Start Last Admin Trade Name Freq PRN Reason Stop Dose Admin Acetaminophen 650 mg 04/03/18 04:39 Tylenol - PO Q6H PRN PAIN Albuterol Sulfate 1 amp 04/03/18 04:39 Ventolin 0.083% Nebulizer Soln - NEB Q4H PRN SHORT OF BREATH/WHEEZING Albuterol Sulfate 2 puff 04/03/18 04:39 Ventolin Hfa Inhaler - IH Q6H PRN SHORTNESS OF BREATH Arformoterol Tartrate 1 amp 04/03/18 08:00 Brovana (Restricted To Pulmonology/Resp) - NEB RBID LYUDMILA Digoxin 0.125 mg 04/03/18 10:00 Lanoxin - PO DAILY [facility] Diltiazem HCl 180 mg 04/03/18 10:00 Cardizem Cd - PO DAILY LYUDMILA Gabapentin 100 mg 04/03/18 10:00 Neurontin - PO DAILY [facility] Levothyroxine Sodium 50 mcg 04/03/18 10:00 Synthroid - PO DAILY [facility] Losartan Potassium 25 mg 04/03/18 10:00 Cozaar - PO DAILY [facility] Oxycodone HCl 5 mg 04/03/18 04:39 Roxicodone - PO Q12H PRN PAIN LEVEL 1-5 Tiotropium [place] 1 puff 04/03/18 10:00 Spiriva - IH DAILY [facility] Warfarin Sodium 4 mg 04/03/18 18:00 Coumadin - PO DAILY@1800 [facility] ASSESSMENT AND PLAN: 1. COPD exacerbation - Precipitating factor is unclear - may be the UTI. Patient is feeling better after initial therapy in the ER. Will continue Duoneb , Solumedrol 60 mg q 8 hours, Dulera and Spiriva. However, her CXR shows pulmonary vascular congestion, cardiomegaly with possible fluffy RUL infiltrate. Will get a chest CT for clarification, give her 60 mg of lasix IV start and measure urine output. Get ECHO to confirm/classify CHF and then further treatment with diuretics will depend on ECHO finding and response to the initial dose of lasix. Consult cardiology and pulmonary. 2. UTI and Infected leg wound - She has history of MRSA. Pending urine and wound culture, will treat with IV Vancomycin and Rocephin. Consult ID, Wound care and Vascular surgery. Daily wound care. 3. Afib - Rate is controlled. No significant ST-T wave changes on EKG. Continue coumadin. Daily INR. 4. DM - For now, we will hold the home diabetes drugs and implement sliding scale insulin regimen. Provide comprehensive diabetes care with patient teaching and counseling about the importance of euglycemia, eye care and foot care. 5. Obesity - Will provide patient all the necessary assistance, counseling and positive reinforcement to facilitate weight loss. Consult sports physician. 6. DVT prophylaxis - On coumadin 7. Advance directives - Full code
--- NOTE | 2018-04-03 00:46 | HP ---
CHIEF COMPLAINT: SOB PCP: HISTORY OF PRESENT ILLNESS: 83 year old F with pmh of multiple abdominal sx (appy, dominique, hysterectomy, LOAs ), asthma, atrial fibrillation, COPD, CHF, CAD, dementia, HTN, hypercholesterolemia, and hypothyroidism, and diabetes, who presents to the emergency department with increasing dyspnea for the last three days. She states that she decided to present today due to her dyspnea being untolerable at home anymore. She endorses an associated productive cough with yellow/light sputum. At baseline, pt ambulates w/ walker, cant walk more than one block w/o getting SOB, 3 pillow orthopnea and is on 2L home O2. Pt says she is usually SOB but has worsened over the past week around the time she missed 1 day of doses of her medications. Of note, pt says she had some chills this week and an episode of diarrhea today at home and the stool was orange, which she attributes to Ice tea. Denies black stools or bright red stools. She has had dysuria as she says it is difficult to clean herself when going to bathroom because of her large abdomen/swelling, so she doesnt always do a thorough job. Denies fever, CP, changes in diet, night sweats, n/v, hematuria, sick contacts. Does have numbness and tingling in hands and feet at baseline due to DM ER course was notable for: (1)Patient at 85%, audible wheezes, given additional duonebs and started initally on bipap. Patient did not tolerate bipap, but respiratory status improved with additional duonebs. Satting in mid 90s now, talking in full sentences. (2)CBC normal. Troponin and BNP normal. INR elevated, on coumadin. UA+ for UTI. Digoxin level low. Patient covered with vancomycin and meropenem given history of multiple drug resistant infections. 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 PAST SURGICAL HISTORY: Hernia repair x3, appendectomy, cholecystectomy Social History: Smoking:Former smoker 1ppd/40yr, quit in 2007 Alcohol:no Drugs: no Has nursing care for foot wounds [employer] insurance Family History: Allergies No Known Allergies Allergy (Verified 04/02/18 17:20) HOME MEDICATIONS: Home Medications Medication Instructions Recorded Albuterol Sulfate Inhaler - 2 inh IH Q6H PRN #0 inh 06/22/13 [Ventolin HFA Inhaler -] Allopurinol [Zyloprim -] 100 mg PO DAILY #0 tablet 06/22/13 Diltiazem Cd [Cardizem Cd -] 180 mg PO DAILY #0 cap.cd.24h 06/22/13 Acetaminophen [Tylenol .Regular 650 mg PO Q6H PRN #240 tablet 06/23/13 Strength -] Potassium Chloride [K-Dur -] 20 meq PO TID tab 04/29/17 Losartan Potassium [Cozaar -] 25 mg PO DAILY #30 tablet 05/28/17 Warfarin Na [Coumadin -] 4 mg PO DAILY@1800 tablet 05/28/17 Digoxin [Lanoxin -] 0.125 mg PO DAILY 09/24/17 Albuterol 0.083% Nebulizer Bonnie 1 amp NEB Q4H PRN amp 10/02/17 [Ventolin 0.083% Nebulizer Soln -] Arformoterol Tartrate [Brovana -] 1 amp NEB RBID amp 10/02/17 Glimepiride [Glimepiride -] 1 mg PO DAILY@0700 tablet 10/02/17 Insulin Sliding Scale [Novolog 1 vial SQ TIDAC units 10/02/17 Vial Sliding Scale -] Levothyroxine [Synthroid -] 50 mcg PO DAILY 30 Days #30 tablet 10/02/17 Tiotropium [place] [Spiriva] 1 puff IH DAILY inh 10/02/17 oxyCODONE HCL [Roxicodone -] 5 mg PO Q12H PRN #30 tablet MDD 2 10/02/17 predniSONE [Deltasone -] 20 mg PO DAILY tablet 10/02/17 Furosemide [Lasix -] 40 mg PO BID@0600,1400 tablet 10/03/17 Gabapentin [Neurontin -] 100 mg PO DAILY 04/02/18 REVIEW OF SYSTEMS reviewed in HPI. PHYSICAL EXAMINATION Vital Signs - 24 hr 04/02/18 04/02/18 17:21 21:13 Temperature 98.4 F Pulse Rate 106 H Respiratory 20 Rate Blood Pressure 137/64 O2 Sat by Pulse 94 L 98 Oximetry (%) Constitutional: Awake, alert, Ox3. SOB w/ talking Head: NCAT Eyes: PERRLA. EOMI. Conjunctivae are not pale. ENT: MMM. Posterior pharynx without exudates or erythema. Uvula midline. Poor dentition. Neck: Supple. Full ROM. No lymphadenopathy. Cardiovascular: Irregularly irregular. S1, S2. Distal pulses are 2+ and symmetric. no JVD Pulmonary/Chest: +Tachypneic with conversational dyspnea. Audible wheezing diffusely. Abdominal: Large protuberant abdomen with panniculitis and cellulitis. skin ios tough and thickened and elephantiasis like +BS NT Musculoskeletal: No cyanosis. Full range of motion in all extremities. No calf tenderness. Radial/pedal pulses are intact and 2+ bilaterally Skin: Cellulitis of the bilateral lower extremities with serrous drainage, chronic stasis dermatitis b/l LE. LE wrapped in bandages. no pitting edema Neurological: Cranial nerves II-XII are grossly intact. Laboratory Results - last 24 hr 04/02/18 04/02/18 04/02/18 18:00 18:00 18:30 WBC 6.5 RBC 4.63 Hgb 11.5 Hct 36.4 MCV 78.7 L MCH 24.9 L MCHC 31.7 L RDW 19.8 H Plt Count 329 D MPV 7.6 PT with INR INR VBG pH POC VBG pCO2 POC VBG pO2 Mixed VBG HCO3 Sodium Potassium Chloride Carbon Dioxide Anion Gap BUN Creatinine Creat Clearance w eGFR Random Glucose Calcium Total Bilirubin AST ALT Alkaline Phosphatase Creatine Kinase Troponin I B-Natriuretic Peptide Total Protein Albumin Urine Color Ltyellow Urine Appearance Slcloudy Urine pH 5.0 Ur Specific [place] 1.008 Urine Protein Negative Urine Glucose (UA) Negative Urine Ketones Negative Urine Blood Negative Urine Nitrite Negative Urine Bilirubin Negative Urine Urobilinogen Negative Ur Leukocyte Esterase 3+ H Urine WBC (Auto) 224 Urine RBC (Auto) 3 Ur Epithelial Cells Rare Urine Bacteria Rare Urine Mucus Rare Digoxin 0.57 L 04/02/18 04/02/18 04/02/18 18:30 18:30 18:30 WBC RBC Hgb Hct MCV MCH MCHC RDW Plt Count MPV PT with INR 25.50 H INR 2.26 H D VBG pH POC VBG pCO2 POC VBG pO2 Mixed VBG HCO3 Sodium 143 Potassium 3.6 Chloride 105 Carbon Dioxide 30 Anion Gap 8 BUN 19 H Creatinine 0.8 Creat Clearance w eGFR > 60 Random Glucose 93 Calcium 8.8 Total Bilirubin 0.7 AST 28 ALT 15 Alkaline Phosphatase 136 H Creatine Kinase 88 Troponin I < 0.02 B-Natriuretic Peptide 252.34 Total Protein 7.4 Albumin 3.4 Urine Color Urine Appearance Urine pH Ur Specific [place] Urine Protein Urine Glucose (UA) Urine Ketones Urine Blood Urine Nitrite Urine Bilirubin Urine Urobilinogen Ur Leukocyte Esterase Urine WBC (Auto) Urine RBC (Auto) Ur Epithelial Cells Urine Bacteria Urine Mucus Digoxin 04/02/18 18:30 WBC RBC Hgb Hct MCV MCH MCHC RDW Plt Count MPV PT with INR INR VBG pH 7.37 POC VBG pCO2 55.3 H POC VBG pO2 41.9 Mixed VBG HCO3 30.9 H Sodium Potassium Chloride Carbon Dioxide Anion Gap BUN Creatinine Creat Clearance w eGFR Random Glucose Calcium Total Bilirubin AST ALT Alkaline Phosphatase Creatine Kinase Troponin I B-Natriuretic Peptide Total Protein Albumin Urine Color Urine Appearance Urine pH Ur Specific [place] Urine Protein Urine Glucose (UA) Urine Ketones Urine Blood Urine Nitrite Urine Bilirubin Urine Urobilinogen Ur Leukocyte Esterase Urine WBC (Auto) Urine RBC (Auto) Ur Epithelial Cells Urine Bacteria Urine Mucus Digoxin ASSESSMENT/PLAN: 83 year old F with pmh of multiple abdominal sx (appy, dominique, hysterectomy, LOAs ), asthma, atrial fibrillation, COPD, CHF, CAD, dementia, HTN, hypercholesterolemia, and hypothyroidism, and diabetes, p/w worsening SOB and wheezing for 3 days. COPD vs Asthma exacerbation - Precipitating factor is unclear - may be the UTI. Patient is feeling better after initial therapy in the ER. Less likely to be CHF or PNA, pt has no JVD, pitting edema or crackles. Pt is afebrile w/ no white count, BNP is normal and CXR remains largely unchanged from 10/02 although there is some increased pulm vasc congestion and both contain diffuse opacities but no large obvious consolidations, cardiomegaly. -Will get a chest CT for clarification of abnormal CXR -Flu swab -continue Duoneb, Solumedrol 60 mg q 8 hours, mometasone, arfomoterol and Spiriva -60 mg of lasix IV start and measure urine output -ECHO to confirm/classify CHF and then further tx with diuretics will depend on ECHO finding and response to the initial dose of lasix -Consult cardiology and pulmonary -2 L O2 NC maintain O2 sat 89-92% UTI and Infected leg wound - She has hx of MRSA. -Pending blood, urine and wound culture, will tx with IV Vancomycin and rocephin. -Consult ID, Wound care and Vascular surgery. -Daily wound care. Afib - Rate is ctl. No significant ST-T wave changes on EKG. -Continue coumadin. -Daily INR. -c/w home dose meds DM - -for now, hold home diabetes drugs and implement sliding scale insulin regimen. -BGM ACHS Obesity - -Will provide necessary assistance , counseling and positive reinforcement to facilitate weight loss. -Consult labeling specialist. HCM -c/w home dose meds #FEN -no IVF at this time -replete lytes as needed -low sodium/fat/diabetic diet #DVTppx on coumadin #Dispo -admit to tele -Full code case discussed with attending, Dr. Nicholson. -Rufus Mcpherson MD PGY1 Visit type - Emergency Visit Emergency Visit: Yes ED Registration Date: 04/02/18 Care time: The patient presented to the Emergency Department on the above date and was hospitalized for further evaluation of their emergent condition. - New Patient This patient is new to me today: Yes Date on this admission: 04/03/18 - Critical Care Critical Care patient: No Hospitalist Screening - Colonoscopy Questionnaire Colonoscopy Questionnaire: Colonoscopy Questionnaire - Patient: 50 - 75 years old and never had a screening colonoscopy: Unknown History of colon or rectal polyps, or CA: Unknown History of IBD, Crohn's disease or UC: Unknown History of abdominal radiation therapy as a child: Unknown - Relative: 1 with colon or rectal CA, or polyps at age 60 or younger: Unknown Colon or rectal CA diagnosed at age 45 or younger: Unknown Multiple relatives with colon or rectal CA: Unknown - Outcome: Screening Result: Negative Screen
[2018-04-03] MEDS ORDERED: ALBUTEROL SO4 8 GM HFA INHALER IH PRN (04:39)
[2018-04-03] MEDS ORDERED: PIPERACILLIN/TAZOB 4.5 GM 4.5 GM in DEXTROSE 5%-WATER 100 ML IVPB SCH ×2 (04:45→05:15)
[2018-04-03] MEDS ORDERED: FUROSEMIDE 40 MG/4 ML INJECTABLE VIAL IVPUSH ONE (04:51)
[2018-04-03] MEDS ORDERED: PIPERACILLIN/TAZOBACTAM 4.5 GM VIAL IVPB ONE (05:36)
[2018-04-03] MEDS ORDERED: DEXTROSE 5%-WATER 100 ML IVPB ONE ×2 (05:36→09:45)
[2018-04-03] MEDS ORDERED: methylPREDNISolone NA SUCC 125 MG/2 ML VIAL IVPUSH SCH (06:00)
[2018-04-03] MEDS: LEVOTHYROXINE NA 50 MCG TABLET (FP) PO SCH (06:51)
[2018-04-03] MEDS: INSULIN SLIDING SCALE (NOVOLOG) 1 VIAL SQ SCH ×4 (06:52→21:47)
[2018-04-03] MEDS ORDERED: FUROSEMIDE 40 MG/4 ML INJECTABLE VIAL ONE (06:55)
[2018-04-03] MEDS: ARFORMOTEROL TARTRATE 15 MCG/2 ML VIAL NEB SCH ×2 (07:20→21:23)
[2018-04-03] MEDS: ALBUTEROL SO4 2.5/IPRATROPIUM 0.5 INH SOL 3 ML VIAL.NEB. NEB SCH ×2 (07:32→11:17)
[2018-04-03 08:37] LABS: INR 2.46 (0.82-1.09); PROTHROMBIN TIME (PATIENT) 27.8 SEC (9.7-13.0)
[2018-04-03 08:43] LABS: BASO % 0.1 % (0-2.0); HEMOGLOBIN 10.7 GM/dL (10.7-15.3); LYMPH % 14.6 % (8-40); MCH 24.9 pg (25.7-33.7); MCHC 31.5 g/dl (32.0-36.0); MEAN CELL VOLUME 78.9 fl (80-96); MEAN PLT VOLUME 7.6 fl (7.5-11.1); MONO % 2.1 % (3.8-10.2); NEUT % 83.2 % (42.8-82.8); PLATELET COUNT 268 K/MM3 (134-434); RBC 4.31 M/mm3 (3.60-5.2); RDW 19.8 % (11.6-15.6); WHITE BLOOD COUNT 3.8 K/mm3 (4.0-10.0)
[2018-04-03 09:02] LABS: CALCIUM 8.5 mg/dL (8.5-10.1); CHLORIDE 103 mmol/L (98-107); POTASSIUM 3.7 mmol/L (3.5-5.1); SODIUM 140 mmol/L (136-145)
[2018-04-03 09:07] LABS: ALBUMIN 2.9 g/dl (3.4-5.0); ALK PHOS 114 U/L (45-117); ANION GAP 9 (8-16); BILIRUBIN,TOTAL 0.5 mg/dL (0.2-1.0); BLOOD UREA NITROGEN 24 mg/dL (7-18); CO2 28 mmol/L (21-32); CREATININE 0.9 mg/dL (0.55-1.02); GLUCOSE,RANDOM 296 mg/dL (74-106); PHOSPHOROUS 3.4 mg/dL (2.5-4.9); SGOT/AST 23 U/L (15-37); SGPT/ALT 14 U/L (12-78); TOT PROT 6.4 g/dl (6.4-8.2)
[2018-04-03] MEDS ORDERED: cefTRIAXone SODIUM 1 GM VIAL ONE (09:45)
--- NOTE | 2018-04-03 09:47 | PN ---
Progress Note (short form) - Note Progress Note: Dr. Garcia to document today. Less wheezing today but multiple other problems still an issue. Lives alone.
[2018-04-03] MEDS ORDERED: CEFTRIAXONE 1 GM in DEXTROSE 5%-WATER 100 ML IVPB SCH (10:00)
[2018-04-03] MEDS: DIGOXIN 0.125 MG TABLET (FP) PO SCH (10:41)
[2018-04-03] MEDS: LOSARTAN POTASSIUM 25 MG TABLET PO SCH (10:42)
[2018-04-03] MEDS: GABAPENTIN 100 MG CAPSULE (FP) PO SCH (10:42)
[2018-04-03] MEDS: MOMETASONE FUROATE 220 MCG/IH INHALER IH SCH (10:42)
[2018-04-03] MEDS: TIOTROPIUM BROMIDE 18 MCG CAPSULES IH SCH (10:44)
--- NOTE | 2018-04-03 12:07 | PN ---
Progress Note, Physician Chief Complaint: Ms Grove says she is feeling better but is still with some shortness of breath. Denies cp and n/v. - Current Medication List Current Medications: Active Medications Acetaminophen (Tylenol -) 650 mg PO Q6H PRN PRN Reason: PAIN Albuterol Sulfate (Ventolin 0.083% Nebulizer Soln -) 1 amp NEB Q4H PRN PRN Reason: SHORT OF BREATH/WHEEZING Albuterol/Ipratropium (Duoneb -) 1 amp NEB RQID [facility] Stop: 04/03/18 16:01 Last Admin: 04/03/18 11:17 Dose: 1 amp Arformoterol Tartrate (Brovana (Restricted To Pulmonology/Resp) -) 1 amp NEB RBID [facility] Last Admin: 04/03/18 07:20 Dose: 1 amp Digoxin (Lanoxin -) 0.125 mg PO DAILY [facility] Last Admin: 04/03/18 10:41 Dose: 0.125 mg Diltiazem HCl (Cardizem Cd -) 180 mg PO DAILY [facility] Last Admin: 04/03/18 10:42 Dose: 180 mg Gabapentin (Neurontin -) 100 mg PO DAILY [facility] Last Admin: 04/03/18 10:42 Dose: 100 mg Vancomycin HCl 1,000 mg/ (Dextrose) 250 mls @ 200 mls/hr IVPB Q24H [facility]IL[facility]; Protocol Piperacillin Sod/Tazobactam (Sod 4.5 gm/ Dextrose) 100 mls @ 200 mls/hr IVPB Q8H-IV LYUDMILA; Protocol Ceftriaxone Sodium 1 gm/ (Dextrose) 100 mls @ 200 mls/hr IVPB DAILY [facility] Last Admin: 04/03/18 10:41 Dose: 200 mls/hr Insulin Aspart (Novolog Vial Sliding Scale -) 1 vial SQ ACHS L[facility]UDMILA; Protocol Last Admin: 04/03/18 11:57 Dose: 8 units Levothyroxine Sodium (Synthroid -) 50 mcg PO AM [facility] Last Admin: 04/03/18 06:51 Dose: 50 mcg Losartan Potassium (Cozaar -) 25 mg PO DAILY [facility] Last Admin: 04/03/18 10:42 Dose: 25 mg Methylprednisolone Sodium Succinate (Solu-Medrol -) 60 mg IVPUSH TID [facility] Last Admin: 04/03/18 06:53 Dose: 60 mg Mometasone Furoate (Asmanex 220mcg -) 1 puff IH DAILY [facility] Last Admin: 04/03/18 10:42 Dose: 1 puff Oxycodone HCl (Roxicodone -) 5 mg PO Q12H PRN PRN Reason: PAIN LEVEL 1-5 Tiotropium [place] (Spiriva -) 1 puff IH DAILY [facility] Last Admin: 04/03/18 10:44 Dose: 1 puff Warfarin Sodium (Coumadin -) 4 mg PO DAILY@1800 [facility] - Objective Vital Signs: Vital Signs Temperature 36.8 C 04/03/18 09:00 Pulse Rate 97 H 04/03/18 10:41 Respiratory Rate 20 04/03/18 09:00 Blood Pressure 119/63 04/03/18 09:00 O2 Sat by Pulse Oximetry (%) 96 04/03/18 08:59 Constitutional: Yes: No Distress, Calm, Obese Cardiovascular: Yes: Pulse Irregular. No: Tachycardia, Gallop, Murmur, Rub Respiratory: Yes: Regular, On Nasal O2, Wheezes. No: CTA Bilaterally, Rales, Rhonchi Gastrointestinal: Yes: Normal Bowel Sounds, Soft. No: Distention, Tenderness Extremities: Yes: Erythema Edema: No Labs: CBC, BMP 04/03/18 08:00 04/03/18 08:00 INR, PTT INR 2.46 (0.82-1.09) H 04/03/18 08:00 Problem List - Problems (1) COPD exacerbation Assessment/Plan: -patient improving -CT scan performed, awaiting official read -appreciate pulmonary assistance -continue solumedrol -continue asmanex, spiriva, brovana, and prn albuterol Code(s): J44.1 - CHRONIC OBSTRUCTIVE PULMONARY DISEASE W (ACUTE) EXACERBATION (2) Acute on chronic respiratory failure with hypoxia and hypercapnia Assessment/Plan: -improving -continue above treatment and oxygen support -patient says has oxygen at home but normally does not need it except when ambulating Code(s): J96.21 - ACUTE AND CHRONIC RESPIRATORY FAILURE WITH HYPOXIA; J96.22 - ACUTE AND CHRONIC RESPIRATORY FAILURE WITH HYPERCAPNIA (3) Atrial fibrillation Assessment/Plan: -continue diltiazem and digoxin -therapeutic on coumadin Code(s): I48.91 - UNSPECIFIED ATRIAL FIBRILLATION Qualifiers: Atrial fibrillation type: chronic Qualified Code(s): I48.2 - Chronic atrial fibrillation (4) CHF (congestive heart failure) Assessment/Plan: -does not appear in exacerbation -appreciate cardiology assistance -will start lasix 40mg bid dosing Code(s): I50.9 - HEART FAILURE, UNSPECIFIED Qualifiers: Qualified Code(s): I50.32 - Chronic diastolic (congestive) heart failure (5) Chronic wound of extremity Assessment/Plan: -vascular surgery and ID consulted Code(s): [id number] - (6) Diabetes Assessment/Plan: -continue SSI -will be elevated secondary to steroids Code(s): E11.9 - TYPE 2 DIABETES MELLITUS WITHOUT COMPLICATIONS Qualifiers: Diabetes mellitus type: type 2 Diabetes mellitus owner manager insulin use: without owner manager use Diabetes mellitus complication status: with hyperglycemia Qualified Code(s): E11.65 - Type 2 diabetes mellitus with hyperglycemia (7) HTN (hypertension) Assessment/Plan: -well controlled -continue current management Code(s): I10 - ESSENTIAL (PRIMARY) HYPERTENSION Qualifiers: Hypertension type: essential hypertension Qualified Code(s): I10 - Essential (primary) hypertension (8) Hypothyroidism Assessment/Plan: -continue levothyroxine Code(s): E03.9 - HYPOTHYROIDISM, UNSPECIFIED (9) Morbid obesity Assessment/Plan: -outpatient weight loss program Code(s): E66.01 - MORBID (SEVERE) OBESITY DUE TO EXCESS CALORIES
--- NOTE | 2018-04-03 12:10 | CON.CARD ---
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 Symptoms improving with nebulizer therapy. - History Source History Provided By: Patient Limitations to Obtaining History: No Limitations - Past Medical History Cardio/Vascular: Yes: AFIB, CHF, Deep Vein Thrombosis, HTN, Hyperlipdemia Pulmonary: Yes: Asthma, COPD, O2 Dependent Gastrointestinal: Yes: Hiatal Hernia Infectious Disease: Yes: MRSA, VREF Musculoskeletal: Yes: Osteoarthritis Endocrine: Yes: Diabetes Mellitus, Hypothyroidism Dermatology: Yes: Cellulitis, Eczema - Past Surgical History Past Surgical History: Yes: Appendectomy, Cholecystectomy, Hernia Repair (times three), Oopherectomy, Tonsillectomy - Alcohol/Substance Use Hx Alcohol Use: No History of Substance Use: reports: None - Smoking History Smoking history: Former smoker Have you smoked in the past 12 months: No Aproximately how many cigarettes per day: 0 If you are a former smoker, when did you quit?: 2007 - Social History Usual Living Arrangement: Alone ADL: Independent History of Recent Travel: No Home Medications - Allergies Allergies/Adverse Reactions: Allergies Allergy/AdvReac Type Severity Reaction Status Date / Time No Known Allergies Allergy Verified 04/02/18 17:20 - Home Medications Home Medications: Ambulatory Orders Albuterol Sulfate Inhaler - [Ventolin HFA Inhaler -] 2 inh IH Q6H PRN #0 inh 04/27 Allopurinol [Zyloprim -] 100 mg PO DAILY #0 tablet 06/22/13 Diltiazem Cd [Cardizem Cd -] 180 mg PO DAILY #0 cap.cd.24h 06/22/13 Acetaminophen [Tylenol .Regular Strength -] 650 mg PO Q6H PRN #240 tablet Potassium Chloride [K-Dur -] 20 meq PO TID tab 04/29/17 Losartan Potassium [Cozaar -] 25 mg PO DAILY #30 tablet 05/28/17 Warfarin Na [Coumadin -] 4 mg PO DAILY@1800 tablet 05/28/17 Digoxin [Lanoxin -] 0.125 mg PO DAILY 09/24/17 Albuterol 0.083% Nebulizer Bonnie [Ventolin 0.083% Nebulizer Soln -] 1 amp NEB Q4H PRN amp 10/02/17 Arformoterol Tartrate [Brovana -] 1 amp NEB RBID amp 10/02/17 Glimepiride [Glimepiride -] 1 mg PO DAILY@0700 tablet 10/02/17 Insulin Sliding Scale [Novolog Vial Sliding Scale -] 1 vial SQ TIDAC units Levothyroxine [Synthroid -] 50 mcg PO DAILY 30 Days #30 tablet 10/02/17 Tiotropium [place] [Spiriva] 1 puff IH DAILY inh 10/02/17 oxyCODONE HCL [Roxicodone -] 5 mg PO Q12H PRN #30 tablet MDD 2 10/02/17 predniSONE [Deltasone -] 20 mg PO DAILY tablet 10/02/17 Furosemide [Lasix -] 40 mg PO BID@0600,1400 tablet 10/03/17 Gabapentin [Neurontin -] 100 mg PO DAILY 04/02/18 Family Disease History - Family Disease History Family Disease History: Heart Disease: Mother ([place]), Other: Father (ETOH cirrhosis), Sister (alive and well) Review of Systems - Review of Systems Respiratory: reports: Cough, Exercise Intolerance, SOB on Exertion, Wheezing Vital Signs: Vital Signs Temperature 98.2 F 04/03/18 09:00 Pulse Rate 97 H 04/03/18 10:41 Respiratory Rate 20 04/03/18 09:00 Blood Pressure 119/63 04/03/18 09:00 O2 Sat by Pulse Oximetry (%) 96 04/03/18 08:59 Constitutional: Yes: No Distress, Calm Neck: Yes: Supple Respiratory: Yes: Regular, Cough, Diminished, On Nasal O2, SOB on Exertion, Wheezes Gastrointestinal: Yes: Normal Bowel Sounds, Soft, Abdomen, Obese Cardiovascular: Yes: Pulse Irregular JVD: No Carotid Bruit: No Heart Sounds: Yes: S1, S2 Murmur: Yes: Systolic Murmur, Grade 1 Edema: Yes Edema: LLE: 2+, RLE: 2+ Integumentary: Yes: Venous Stasis Changes - Other Data Labs, Other Data: CBC, BMP 04/03/18 08:00 04/03/18 08:00 INR, PTT INR 2.46 (0.82-1.09) H 04/03/18 08:00 Troponin, BNP 04/02/18 18:30 Troponin I < 0.02 B-Natriuretic Peptide 252.34 Troponin, BNP 04/02/18 18:30 Troponin I < 0.02 B-Natriuretic Peptide 252.34 Afib @ 102 RBBB Imaging - Results Chest X-ray: Report Reviewed (Rt base ATX vs infiltrate) Problem List - Problems (1) Chronic anticoagulation Code(s): Z79.01 - [employer] ATTENDANT (CURRENT) USE OF ANTICOAGULANTS (2) COPD exacerbation Code(s): J44.1 - CHRONIC OBSTRUCTIVE PULMONARY DISEASE W (ACUTE) EXACERBATION (3) Atrial fibrillation Code(s): I48.91 - UNSPECIFIED ATRIAL FIBRILLATION Qualifiers: Atrial fibrillation type: chronic Qualified Code(s): I48.2 - Chronic atrial fibrillation (4) Chronic bronchitis Code(s): J42 - UNSPECIFIED CHRONIC BRONCHITIS Qualifiers: Chronic bronchitis type: unspecified Qualified Code(s): J42 - Unspecified chronic bronchitis (5) Chronic venous stasis dermatitis of both lower extremities Code(s): I87.2 - VENOUS INSUFFICIENCY (CHRONIC) (PERIPHERAL) (6) Diastolic dysfunction without heart failure Code(s): I51.9 - HEART DISEASE, UNSPECIFIED (7) HTN (hypertension) Code(s): I10 - ESSENTIAL (PRIMARY) HYPERTENSION Qualifiers: Hypertension type: essential hypertension Qualified Code(s): I10 - Essential (primary) hypertension (8) Hypothyroidism Code(s): E03.9 - HYPOTHYROIDISM, UNSPECIFIED (9) Morbid obesity Code(s): E66.01 - MORBID (SEVERE) OBESITY DUE TO EXCESS CALORIES Assessment/Plan 1. Acute on chronic hypoxemic respiratory failure related to exacerbation of reactive airway disease/COPD (O2 and steroid-dependent) 2. Diastolic dysfunction 3. CAD angina pectoris, stable 4. Permanent atrial fibrillation [id number] score of 7 on Coumadin, therapeutic INR, 5. HTN/hypertensive cardiovascular disease 6. DM, hypoglycemia 7. Hypothyroidism 8. CKD 9. 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 History of DVT 11. Chronic venous stasis 12. h/o C. diff Ag + PLAN: 1. Continue Cardizem CD 180 qd 2. Continue Digoxin 0.125 qd with caution and close monitoring of Digoxin level 3. Continue Lasix 40 bid with close monitoring of renal function 4. Continue Cozaar 25 qd with close monitoring of renal function 5. A/C with Coumadin as per INR 6. BD, Singulair, IV steroid with GI protection, epiric abx course, O2 to keep Spo2 >90% 7. Thank you for consultative opportunity
--- NOTE | 2018-04-03 12:11 | EKG ---
Test Reason : Blood Pressure : / mmHG Vent. Rate : 102 BPM Atrial Rate : 159 BPM P-R Int : 000 ms QRS Dur : 124 ms QT Int : 354 ms P-R-T Axes : 000 106 -34 degrees QTc Int : 461 ms POOR DATA QUALITY, INTERPRETATION MAY BE ADVERSELY AFFECTED ATRIAL FIBRILLATION WITH RAPID VENTRICULAR RESPONSE RIGHT BUNDLE BRANCH BLOCK T WAVE ABNORMALITY, CONSIDER LATERAL ISCHEMIA ABNORMAL ECG WHEN COMPARED WITH ECG OF 23-SEP-2017 21:24, NO SIGNIFICANT CHANGE WAS FOUND Confirmed by RAISA CHAUDHARI, PAPA ([id number]) on 04/03/2018 12:11:16 PM Referred By: Confirmed By:PAPA KLINE MD
--- NOTE | 2018-04-03 13:37 | PN ---
Progress Note (short form) - Note Progress Note: PULMONARY CONSULTATION DICTATED 04/03/18 IMP ACUTE ON CHONIC HYPOXEMIC/HYPERCAPNEIC RESPIRATORY FAILURE COPD EXACERBATION AFIB PVD DM HTN PLAN IV STEROIDS O2 INHALED BRONCHODILATORS ABX CHEST CT ABG AC DR DANIELS Problem List - Problems (1) COPD exacerbation Code(s): J44.1 - CHRONIC OBSTRUCTIVE PULMONARY DISEASE W (ACUTE) EXACERBATION (2) Chronic anticoagulation Code(s): Z79.01 - STAY CUTTER (CURRENT) USE OF ANTICOAGULANTS (3) Acute on chronic respiratory failure with hypoxia and hypercapnia Code(s): J96.21 - ACUTE AND CHRONIC RESPIRATORY FAILURE WITH HYPOXIA; J96.22 - ACUTE AND CHRONIC RESPIRATORY FAILURE WITH HYPERCAPNIA (4) Atrial fibrillation Code(s): I48.91 - UNSPECIFIED ATRIAL FIBRILLATION Qualifiers: Atrial fibrillation type: chronic Qualified Code(s): I48.2 - Chronic atrial fibrillation (5) CHF (congestive heart failure) Code(s): I50.9 - HEART FAILURE, UNSPECIFIED Qualifiers: Qualified Code(s): I50.32 - Chronic diastolic (congestive) heart failure (6) Chronic wound of extremity Code(s): [id number] - (7) Diabetes Code(s): E11.9 - TYPE 2 DIABETES MELLITUS WITHOUT COMPLICATIONS Qualifiers: Diabetes mellitus type: type 2 Diabetes mellitus terminal operator insulin use: without terminal operator use Diabetes mellitus complication status: with hyperglycemia Qualified Code(s): E11.65 - Type 2 diabetes mellitus with hyperglycemia (8) Morbid obesity with BMI of 45.0-49.9, adult Code(s): E66.01 - MORBID (SEVERE) OBESITY DUE TO EXCESS CALORIES; Z68.42 - BODY MASS INDEX (BMI) 45.0-49.9, ADULT (9) T2DM (type 2 diabetes mellitus) Code(s): E11.9 - TYPE 2 DIABETES MELLITUS WITHOUT COMPLICATIONS
--- NOTE | 2018-04-03 14:01 | CONS ---
DATE OF CONSULTATION: 04/03/2018 REFERRING PHYSICIAN: Navin Garcia DO HISTORY OF PRESENT ILLNESS: The patient is an 83-year-old white female known to me from previous hospitalization in the past with advanced COPD, currently maintained on home oxygen therapy, congestive heart failure, atrial fibrillation, on Coumadin, DVT, hypertension, hyperlipidemia, noninsulin-dependent diabetes mellitus, hypothyroidism, diabetic foot ulcers, currently maintained in wound care, hiatal hernia, osteoarthritis, admitted to [facility] with complaint of a 2-week history of increasing shortness of breath and dyspnea on exertion, cough and bronchospasm. Patient denied any accompanying chest pain, nausea, vomiting or diaphoresis. She states that her cough is productive of yellow light sputum. Denies hemoptysis. She also complains of increasing orthopnea as well as PND and lower extremity edema. Denies any fevers, chills. Patient denies any history of occupational exposure to chemicals or fumes. She has a history of tobacco use 1 pack per day and quit in 2007. Patient as stated before is currently maintained on home oxygen therapy for the past 5 years. She was recently hospitalized at [facility] in September 2017 secondary to hypoxemic hypercapnic respiratory failure. 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 REVIEW OF SYSTEMS: Positive orthopnea. Positive dyspnea. Positive cough. Positive bronchospasm. No chest pain. No palpitation. No nausea. No vomiting. No abdominal pain. Positive lower extremity edema. CURRENT MEDICATIONS: Include Solu-Medrol 60 t.i.d.; Tylenol; Cozaar; Asmanex; ceftriaxone; piperacillin; vancomycin; Coumadin; Neurontin; Spiriva; albuterol; Brovana; Cardizem CD; Lanoxin; NovoLog; Roxicodone; and Synthroid. SOCIAL HISTORY: History of tobacco use 1 pack per day for many years, quit in 2007. 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 PHYSICAL EXAMINATION: General: The patient is an elderly white female, well developed, obese, alert, dyspneic, but in no acute distress. Vital Signs: She is currently afebrile, blood pressure is 119/63, respiratory rate is 20, O2 saturation is 96% on 2 L. HEENT: Normocephalic, atraumatic. Neck: Supple. Heart: Irregularly irregular with S1, S2. Chest: Bilateral expiratory and inspiratory wheezes. Abdomen: Soft, bowel sounds positive. Extremities: Bilateral lower extremity edema. LABORATORIES: INR is 2.46. WBC is 3.8, hemoglobin 10.7, hematocrit 34, platelet count of 268,000. BUN 24, creatinine 0.9. BNP is 252. Chest x-ray reveals cardiomegaly, increased markings bilaterally. IMPRESSION: 1. Acute on chronic hypoxemic hypercapnic respiratory failure secondary to decompensated chronic obstructive pulmonary disease. 2. Advanced chronic obstructive pulmonary disease, home oxygen dependent. 3. Atrial fibrillation. 4. Diastolic congestive heart failure. 5. Hypertension. 6. Diabetes. 7. Peripheral vascular disease. PLAN: IV steroids. Inhaled bronchodilators. Supplemental O2. Chest CT. Also check arterial blood gas. Anticoagulation. Thank you. GWENDOLYN DANIELS M.D. [id number]
--- NOTE | 2018-04-03 15:14 | PN ---
Progress Note, Physician Chief Complaint: ID Full note to be dictated Patient off the floor - Current Medication List Current Medications: Active Medications Acetaminophen (Tylenol -) 650 mg PO Q6H PRN PRN Reason: PAIN Albuterol Sulfate (Ventolin 0.083% Nebulizer Soln -) 1 amp NEB Q4H PRN PRN Reason: SHORT OF BREATH/WHEEZING Arformoterol Tartrate (Brovana (Restricted To Pulmonology/Resp) -) 1 amp NEB RBID [facility] Last Admin: 04/03/18 07:20 Dose: 1 amp Digoxin (Lanoxin -) 0.125 mg PO DAILY [facility] Last Admin: 04/03/18 10:41 Dose: 0.125 mg Diltiazem HCl (Cardizem Cd -) 180 mg PO DAILY [facility] Last Admin: 04/03/18 10:42 Dose: 180 mg Gabapentin (Neurontin -) 100 mg PO DAILY [facility] Last Admin: 04/03/18 10:42 Dose: 100 mg Vancomycin HCl 1,000 mg/ (Dextrose) 250 mls @ 200 mls/hr IVPB Q24H LYUDMILA; Protocol Piperacillin Sod/Tazobactam (Sod 4.5 gm/ Dextrose) 100 mls @ 200 mls/hr IVPB Q8H-IV L[facility]UDMIL[facility]; Protocol Ceftriaxone Sodium 1 gm/ (Dextrose) 100 mls @ 200 mls/hr IVPB DAILY [facility] Last Admin: 04/03/18 10:41 Dose: 200 mls/hr Insulin Aspart (Novolog Vial Sliding Scale -) 1 vial SQ ACHS LYUDMILA; Protocol Last Admin: 04/03/18 11:57 Dose: 8 units Levothyroxine Sodium (Synthroid -) [address] [facility] Last Admin: 04/03/18 06:51 Dose: 50 mcg Losartan Potassium (Cozaar -) [address] [facility] Last Admin: 04/03/18 10:42 Dose: 25 mg Methylprednisolone Sodium Succinate (Solu-Medrol -) 60 mg IVPUSH Q6H-IV [facility]UD[facility]IL[facility] Mometasone Furoate (Asmanex 220mcg -) [address] [facility] Last Admin: 04/03/18 10:42 Dose: 1 puff Oxycodone HCl (Roxicodone -) 5 mg PO Q12H PRN PRN Reason: PAIN LEVEL 1-5 Pantoprazole Sodium (Protonix -) [address] [facility] Tiotropium [place] (Spiriva -) [address] [facility] Last Admin: 04/03/18 10:44 Dose: 1 puff Warfarin Sodium (Coumadin -) 4 mg PO DAILY@1800 [facility] - Objective Vital Signs: Vital Signs Temperature 98.5 F 04/03/18 13:35 Pulse Rate 94 H 04/03/18 13:35 Respiratory Rate 20 04/03/18 13:35 Blood Pressure 103/46 04/03/18 13:35 O2 Sat by Pulse Oximetry (%) 96 04/03/18 08:59 Labs: CBC, BMP 04/03/18 08:00 04/03/18 08:00 INR, PTT INR 2.46 (0.82-1.09) H 04/03/18 08:00 Assessment/Plan Laboratory Tests 04/02/18 04/03/18 04/03/18 18:00 08:00 08:00 WBC 3.8 L Hgb 10.7 Hct 34.0 Plt Count 268 Creat Clearance w eGFR 59.94 Ur Leukocyte Esterase 3+ H Urine WBC (Auto) 224 Urine RBC (Auto) 3 Assessment Cellulitis UTI ? asymptomatic History of resistant organisms MRSA VREF Plan Vanocycin and Zosyn, isolate Screening Jassi CHAUDHARI
[2018-04-03] MEDS: methylPREDNISolone NA SUCC 125 MG/2 ML VIAL IVPUSH SCH ×2 (15:15→21:46)
[2018-04-03] MEDS: PANTOPRAZOLE 40 MG TABLET (FP) PO SCH (15:50)
--- NOTE | 2018-04-03 15:51 | ECHO ---
Name: COLIN ARREOLA Exam:Adult Echocardiogram Study Date: 04/03/2018 03:11 PM Age: 83 yrs Reason For Study: CHF Height: 65 in Weight: 300 lb BSA: 2.4 m2 MMode/2D Measurements & Calculations IVSd: 0.95 cm Ao root diam: 2.9 cm LVIDd: 4.8 cm LA dimension: 4.4 cm LVIDs: 2.9 cm LVPWd: 0.96 cm EDV(Teich): 106.6 ml RV S Khadar: 7.3 cm/sec ESV(Teich): 33.2 ml Doppler Measurements & Calculations MV E max khadar: 174.0 cm/sec Ao V2 max: 158.2 cm/sec Ao max P.0 mmHg TR max khadar: 280.6 cm/sec Med Peak E' Khadar: 8.3 cm/sec TR max P.6 mmHg Med E/e': 20.9 Lat Peak E' Khadar: 6.5 cm/sec Lat E/e': 26.9 Left Ventricle Left ventricular systolic function is grossly normal. Right Ventricle The right ventricle is grossly normal size. The right ventricular systolic function is grossly normal . Atria The left atrium is mildly dilated. Mitral Valve There is severe mitral annular calcification. There is no mitral valve stenosis. There is mild mitral regurgitation. Tricuspid Valve The tricuspid valve is not well visualized, but is grossly normal. There is mild tricuspid regurgitat ion. Right ventricular systolic pressure is elevated at 30-40mmHg. Aortic Valve There is moderate aortic sclerosis.;. No hemodynamically significant valvular aortic stenosis. Pulmonic Valve The pulmonic valve is not well seen, but is grossly normal. There is no pulmonic valvular stenosis. T here is no pulmonic valvular regurgitation. Great Vessels The aortic root is normal size. Pericardium/Pleura There is no pericardial effusion. Interpretation Summary Left ventricular systolic function is grossly normal. The left atrium is mildly dilated. There is severe mitral annular calcification. There is mild mitral regurgitation. There is mild tricuspid regurgitation. Right ventricular systolic pressure is elevated at 30-40mmHg. There is moderate aortic sclerosis.; There is no pericardial effusion. MD Reji Carrera 04/03/2018 03:51 PM
[2018-04-03] MEDS: PIPERACILLIN/TAZOB 4.5 GM 4.5 GM in DEXTROSE 5%-WATER 100 ML IVPB SCH ×2 (16:51→17:14)
[2018-04-03] MEDS ORDERED: WARFARIN NA 2 MG TABLET (UD) PO SCH (18:00)
[2018-04-03] MEDS ORDERED: VANCOMYCIN 1,000 MG in DEXTROSE 5%-WATER - 250 ML IVPB SCH (18:00)
[2018-04-04] MEDS ORDERED: PIPERACILLIN/TAZOBACTAM 4.5 GM VIAL IVPB ONE ×3 (02:20→17:24)
[2018-04-04] MEDS ORDERED: DEXTROSE 5%-WATER 100 ML IVPB ONE ×3 (02:20→17:25)
[2018-04-04] MEDS: PIPERACILLIN/TAZOB 4.5 GM 4.5 GM in DEXTROSE 5%-WATER 100 ML IVPB SCH ×3 (02:43→17:45)
[2018-04-04] MEDS: methylPREDNISolone NA SUCC 125 MG/2 ML VIAL IVPUSH SCH ×4 (02:44→21:28)
[2018-04-04] MEDS: oxyCODONE HCL 5 MG TABLET PO PRN ×2 (03:52→21:42)
[2018-04-04] MEDS: ALBUTEROL SO4 0.083% IH SOL 2.5 MG/3 ML VIAL.NEB. NEB PRN (04:23)
[2018-04-04] MEDS: FUROSEMIDE 40 MG TABLET (FP) PO SCH ×2 (06:12→13:39)
[2018-04-04] MEDS: LEVOTHYROXINE NA 50 MCG TABLET (FP) PO SCH (06:12)
[2018-04-04] MEDS: INSULIN SLIDING SCALE (NOVOLOG) 1 VIAL SQ SCH ×4 (06:12→21:39)
[2018-04-04 07:24] LABS: HEMATOCRIT 35.5 % (32.4-45.2); HEMOGLOBIN 11.2 GM/dL (10.7-15.3); LYMPH % 5.8 % (8-40); MCH 24.9 pg (25.7-33.7); MCHC 31.5 g/dl (32.0-36.0); MEAN PLT VOLUME 7.5 fl (7.5-11.1); MONO % 3.5 % (3.8-10.2); NEUT % 90.7 % (42.8-82.8); PLATELET COUNT 296 K/MM3 (134-434); WHITE BLOOD COUNT 7.8 K/mm3 (4.0-10.0)
[2018-04-04 07:46] LABS: INR 2.99 (0.82-1.09); PROTHROMBIN TIME (PATIENT) 33.8 SEC (9.7-13.0)
[2018-04-04] MEDS: ARFORMOTEROL TARTRATE 15 MCG/2 ML VIAL NEB SCH ×2 (08:23→20:50)
[2018-04-04 08:54] LABS: ANION GAP 10 (8-16); BLOOD UREA NITROGEN 27 mg/dL (7-18); CALCIUM 9.2 mg/dL (8.5-10.1); CHLORIDE 102 mmol/L (98-107); CO2 29 mmol/L (21-32); GLUCOSE,RANDOM 264 mg/dL (74-106); MAGNESIUM 2.1 mg/dL (1.8-2.4); SODIUM 141 mmol/L (136-145)
[2018-04-04 08:55] LABS: CREATININE 0.9 mg/dL (0.55-1.02); PHOSPHOROUS 2.9 mg/dL (2.5-4.9)
[2018-04-04] MEDS ORDERED: PT OWN MED DRAWER 7, Y5N ONE (09:22)
--- NOTE | 2018-04-04 10:10 | PN ---
Progress Note, Physician Chief Complaint: Still c/o SOB - Current Medication List Current Medications: Active Medications Acetaminophen (Tylenol -) 650 mg PO Q6H PRN PRN Reason: PAIN Albuterol Sulfate (Ventolin 0.083% Nebulizer Soln -) 1 amp NEB Q4H PRN PRN Reason: SHORT OF BREATH/WHEEZING Last Admin: 04/04/18 04:23 Dose: 1 amp Allopurinol (Zyloprim -) 100 mg PO DAILY [facility] Arformoterol Tartrate (Brovana (Restricted To Pulmonology/Resp) -) 1 amp NEB RBID [facility] Last Admin: 04/04/18 08:23 Dose: 1 amp Digoxin (Lanoxin -) 0.125 mg PO DAILY [facility] Last Admin: 04/03/18 10:41 Dose: 0.125 mg Diltiazem HCl (Cardizem Cd -) 180 mg PO DAILY [facility] Last Admin: 04/03/18 10:42 Dose: 180 mg Furosemide (Lasix -) 40 mg PO BID@0600,1400 [facility] Last Admin: 04/04/18 06:12 Dose: 40 mg Gabapentin (Neurontin -) 100 mg PO DAILY [facility] Last Admin: 04/03/18 10:42 Dose: 100 mg Vancomycin HCl 1,000 mg/ (Dextrose) 250 mls @ 200 mls/hr IVPB Q24H [facility]; Protocol Piperacillin Sod/Tazobactam (Sod 4.5 gm/ Dextrose) 100 mls @ 200 mls/hr IVPB Q8H-IV [facility]; Protocol Last Admin: 04/04/18 02:43 Dose: 200 mls/hr Insulin Aspart (Novolog Vial Sliding Scale -) 1 vial SQ ACHS [facility]; Protocol Last Admin: 04/04/18 06:12 Dose: 6 units Levothyroxine Sodium (Synthroid -) 50 mcg PO AM [facility] Last Admin: 04/04/18 06:12 Dose: 50 mcg Losartan Potassium (Cozaar -) 25 mg PO DAILY [facility] Last Admin: 04/03/18 10:42 Dose: 25 mg Methylprednisolone Sodium Succinate (Solu-Medrol -) 60 mg IVPUSH Q6H-IV [facility] Last Admin: 04/04/18 09:06 Dose: 60 mg Mometasone Furoate (Asmanex 220mcg -) 1 puff IH DAILY [facility] Last Admin: 04/03/18 10:42 Dose: 1 puff Nystatin (Mycostatin Cream -) 1 applic TP BID [facility] Oxycodone HCl (Roxicodone -) 5 mg PO Q12H PRN PRN Reason: PAIN LEVEL 1-5 Last Admin: 04/04/18 03:52 Dose: 5 mg Pantoprazole Sodium (Protonix -) 40 mg PO DAILY [facility] Last Admin: 04/03/18 15:50 Dose: 40 mg Tiotropium [place] (Spiriva -) 1 puff IH DAILY [facility] Last Admin: 04/03/18 10:44 Dose: 1 puff Warfarin Sodium (Coumadin -) 4 mg PO DAILY@1800 [facility] Last Admin: 04/03/18 17:04 Dose: 4 mg - Objective Vital Signs: Vital Signs Temperature 97.6 F 04/04/18 05:39 Pulse Rate 90 04/04/18 05:39 Respiratory Rate 20 04/04/18 05:39 Blood Pressure 126/60 04/04/18 05:39 O2 Sat by Pulse Oximetry (%) 95 04/04/18 08:23 Constitutional: Yes: Mild Distress Eyes: Yes: Conjunctiva Clear, EOM Intact, PERRL. No: Sclera Icterus HENT: Yes: Atraumatic, Normocephalic Neck: Yes: Trachea Midline. No: Decreased ROM, Lymphadenopathy Cardiovascular: Yes: Pulse Irregular, S1, S2. No: JVD Respiratory: Yes: On Nasal O2, Rales Gastrointestinal: Yes: Normal Bowel Sounds, Soft Extremities: Yes: Other (Chronic Venous stasis and Ulcers) Edema: RUE: 1+, LLE: 1+ Peripheral Pulses: Left Doralis Pedis: 0, Right Dorsalis Pedis: 0 Integumentary: Yes: Other (Groin fungal erytema) Neurological: Yes: Alert, Oriented ...Motor Strength: WNL, LUE, LLE, RUE, RLE Labs: CBC, BMP 04/04/18 06:30 04/04/18 06:30 INR, PTT INR 2.99 (0.82-1.09) H 04/04/18 06:30 Problem List - Problems (1) Acute on chronic respiratory failure with hypoxia and hypercapnia Assessment/Plan: Due to CoPD exacerbation on Inhaled bronchodilators, O2 inhalation and IV Steroids will F/U Pulmonary consult recommendations Code(s): J96.21 - ACUTE AND CHRONIC RESPIRATORY FAILURE WITH HYPOXIA; J96.22 - ACUTE AND CHRONIC RESPIRATORY FAILURE WITH HYPERCAPNIA (2) COPD exacerbation Assessment/Plan: Cont Current management still c/o SOB Code(s): J44.1 - CHRONIC OBSTRUCTIVE PULMONARY DISEASE W (ACUTE) EXACERBATION (3) Acute on chronic diastolic (congestive) heart failure Assessment/Plan: Due to Afib now rate controlled F/U Cardiology recommendations Code(s): I50.33 - ACUTE ON CHRONIC DIASTOLIC (CONGESTIVE) HEART FAILURE (4) Atrial fibrillation Assessment/Plan: Persistet IFib now rate controlled on Ac INR Therapeutic will cont Dig and Diltizem F/U INR in am Code(s): I48.91 - UNSPECIFIED ATRIAL FIBRILLATION Qualifiers: Atrial fibrillation type: chronic Qualified Code(s): I48.2 - Chronic atrial fibrillation (5) Chronic wound of extremity Assessment/Plan: Infected on IV Vancomycine and Zosyn F/U ID recommendations Code(s): UST8255 - (6) Hypothyroidism Code(s): E03.9 - HYPOTHYROIDISM, UNSPECIFIED (7) Morbid obesity Assessment/Plan: Out patient nutrition evaluation Code(s): E66.01 - MORBID (SEVERE) OBESITY DUE TO EXCESS CALORIES (8) Intertriginous candidiasis Assessment/Plan: Of groin Topical Nystatin Code(s): B37.2 - CANDIDIASIS OF SKIN AND NAIL
[2018-04-04] MEDS: MOMETASONE FUROATE 220 MCG/IH INHALER IH SCH (10:34)
[2018-04-04] MEDS: TIOTROPIUM BROMIDE 18 MCG CAPSULES IH SCH (10:35)
[2018-04-04] MEDS: DIGOXIN 0.125 MG TABLET (FP) PO SCH (10:35)
[2018-04-04] MEDS: ALLOPURINOL 100 MG TABLET (FP) PO SCH (10:36)
[2018-04-04] MEDS: PANTOPRAZOLE 40 MG TABLET (FP) PO SCH (10:36)
[2018-04-04] MEDS: GABAPENTIN 100 MG CAPSULE (FP) PO SCH (10:36)
[2018-04-04] MEDS: LOSARTAN POTASSIUM 25 MG TABLET PO SCH (10:36)
[2018-04-04] MEDS: NYSTATIN 100,000 UNIT/GM TOPICAL CREAM 15 GM TUBE TP SCH ×2 (11:07→21:29)
--- NOTE | 2018-04-04 11:44 | PN ---
Progress Note, Physician History of Present Illness: Dyspnea, wheezes, productive cough persists. - Current Medication List Current Medications: Active Medications Acetaminophen (Tylenol -) 650 mg PO Q6H PRN PRN Reason: PAIN Albuterol Sulfate (Ventolin 0.083% Nebulizer Soln -) 1 amp NEB Q4H PRN PRN Reason: SHORT OF BREATH/WHEEZING Last Admin: 04/04/18 04:23 Dose: 1 amp Allopurinol (Zyloprim -) 100 mg PO DAILY [facility] Last Admin: 04/04/18 10:36 Dose: 100 mg Arformoterol Tartrate (Brovana (Restricted To Pulmonology/Resp) -) 1 amp NEB RBID [facility] Last Admin: 04/04/18 08:23 Dose: 1 amp Digoxin (Lanoxin -) 0.125 mg PO DAILY [facility] Last Admin: 04/04/18 10:35 Dose: 0.125 mg Diltiazem HCl (Cardizem Cd -) 180 mg PO DAILY [facility] Last Admin: 04/04/18 10:36 Dose: 180 mg Furosemide (Lasix -) 40 mg PO BID@0600,1400 [facility] Last Admin: 04/04/18 06:12 Dose: 40 mg Gabapentin (Neurontin -) 100 mg PO DAILY [facility] Last Admin: 04/04/18 10:36 Dose: 100 mg Vancomycin HCl 1,000 mg/ (Dextrose) 250 mls @ 200 mls/hr IVPB Q24H [facility]; Protocol Piperacillin Sod/Tazobactam (Sod 4.5 gm/ Dextrose) 100 mls @ 200 mls/hr IVPB Q8H-IV [facility]; Protocol Last Admin: 04/04/18 10:34 Dose: 200 mls/hr Insulin Aspart (Novolog Vial Sliding Scale -) 1 vial SQ ACHS [facility]; Protocol Last Admin: 04/04/18 06:12 Dose: 6 units Levothyroxine Sodium (Synthroid -) 50 mcg PO AM [facility] Last Admin: 04/04/18 06:12 Dose: 50 mcg Losartan Potassium (Cozaar -) 25 mg PO DAILY [facility] Last Admin: 04/04/18 10:36 Dose: 25 mg Methylprednisolone Sodium Succinate (Solu-Medrol -) 60 mg IVPUSH Q6H-IV [facility] Last Admin: 04/04/18 09:06 Dose: 60 mg Mometasone Furoate (Asmanex 220mcg -) 1 puff IH DAILY [facility] Last Admin: 04/04/18 10:34 Dose: 1 puff Nystatin (Mycostatin Cream -) 1 applic TP BID [facility] Last Admin: 04/04/18 11:07 Dose: Not Given Oxycodone HCl (Roxicodone -) 5 mg PO Q12H PRN PRN Reason: PAIN LEVEL 1-5 Last Admin: 04/04/18 03:52 Dose: 5 mg Pantoprazole Sodium (Protonix -) 40 mg PO DAILY [facility] Last Admin: 04/04/18 10:36 Dose: 40 mg Tiotropium [place] (Spiriva -) 1 puff IH DAILY [facility] Last Admin: 04/04/18 10:35 Dose: 1 puff Warfarin Sodium (Coumadin -) 3 mg PO DAILY@1800 [facility] - Objective Vital Signs: Vital Signs Temperature 97.6 F 04/04/18 09:00 Pulse Rate 87 04/04/18 10:35 Respiratory Rate 20 04/04/18 09:00 Blood Pressure 124/57 04/04/18 09:00 O2 Sat by Pulse Oximetry (%) 96 04/04/18 11:40 Constitutional: Yes: No Distress, Calm Neck: Yes: Supple Cardiovascular: Yes: Pulse Irregular Respiratory: Yes: Regular, Diminished, On Nasal O2 Gastrointestinal: Yes: Normal Bowel Sounds, Soft, Abdomen, Obese Edema: Yes Edema: LLE: 2+, RLE: 2+ Integumentary: Yes: Venous Stasis Changes Labs: CBC, BMP 04/04/18 06:30 04/04/18 06:30 INR, PTT INR 2.99 (0.82-1.09) H 04/04/18 06:30 - ....Imaging EKG: Report Reviewed (Afib) Problem List - Problems (1) Chronic anticoagulation 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(s): 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 (2) COPD exacerbation Code(s): J44.1 - CHRONIC OBSTRUCTIVE PULMONARY DISEASE W (ACUTE) EXACERBATION (3) Atrial fibrillation Code(s): I48.91 - UNSPECIFIED ATRIAL FIBRILLATION Qualifiers: Atrial fibrillation type: chronic Qualified Code(s): I48.2 - Chronic atrial fibrillation (4) Chronic bronchitis Code(s): J42 - UNSPECIFIED CHRONIC BRONCHITIS Qualifiers: Chronic bronchitis type: unspecified Qualified Code(s): J42 - Unspecified chronic bronchitis (5) Chronic venous stasis dermatitis of both lower extremities Code(s): I87.2 - VENOUS INSUFFICIENCY (CHRONIC) (PERIPHERAL) (6) Diastolic dysfunction without heart failure Code(s): I51.9 - HEART DISEASE, UNSPECIFIED (7) HTN (hypertension) Code(s): I10 - ESSENTIAL (PRIMARY) HYPERTENSION Qualifiers: Hypertension type: essential hypertension Qualified Code(s): I10 - Essential (primary) hypertension (8) Hypothyroidism Code(s): E03.9 - HYPOTHYROIDISM, UNSPECIFIED (9) Morbid obesity Code(s): E66.01 - MORBID (SEVERE) OBESITY DUE TO EXCESS CALORIES Assessment/Plan 1. Acute on chronic hypoxemic/hypercapenic respiratory failure related to exacerbation of reactive airway disease/COPD (O2 and steroid-dependent) 2. Diastolic dysfunction 3. CAD angina pectoris, stable 4. Permanent atrial fibrillation [id number] score of 7 on Coumadin, therapeutic INR, 5. HTN/hypertensive cardiovascular disease 6. DM, hypoglycemia 7. Hypothyroidism 8. CKD 9. 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 History of DVT 11. Chronic venous stasis 12. h/o C. diff Ag + PLAN: 1. Continue Cardizem CD 180 qd 2. Continue Digoxin 0.125 qd with caution and close monitoring of Digoxin level 3. Continue Lasix 40 bid with close monitoring of renal function 4. Continue Cozaar 25 qd with close monitoring of renal function 5. A/C with Coumadin as per INR 6. BD, Singulair, IV steroid with GI protection, empiric abx course, O2 to keep Spo2 >90% 7. F/u chest ct results
[2018-04-04] MEDS ORDERED: INSULIN (NOVOLOG) ASPART 100 UNITS/ML 10ML VIAL ONE ×2 (11:57→17:24)
--- NOTE | 2018-04-04 12:19 | PN ---
Progress Note (short form) - Note Progress Note: PULMONARY Still short of breath with cough and wheezing. CT chest done showing RML, RLL atelectasis. Official read pending. Vital Signs Period Temp Pulse Resp BP Sys/Luke Pulse Ox Last 24 Hr 97.6 F-98.5 F 76-94 20-24 103-126/46-69 92-96 Gen: tachypneic with speaking Heart: RRR Lung: scattered rhonchi Abd: soft, nontender Ext: + edema CBC, BMP 04/04/18 06:30 04/04/18 06:30 Active Medications Acetaminophen (Tylenol -) 650 mg PO Q6H PRN PRN Reason: PAIN Albuterol Sulfate (Ventolin 0.083% Nebulizer Soln -) 1 amp NEB Q4H PRN PRN Reason: SHORT OF BREATH/WHEEZING Last Admin: 04/04/18 04:23 Dose: 1 amp Allopurinol (Zyloprim -) 100 mg PO DAILY [facility] Last Admin: 04/04/18 10:36 Dose: 100 mg Arformoterol Tartrate (Brovana (Restricted To Pulmonology/Resp) -) 1 amp NEB RBID [facility] Last Admin: 04/04/18 08:23 Dose: 1 amp Digoxin (Lanoxin -) 0.125 mg PO DAILY [facility] Last Admin: 04/04/18 10:35 Dose: 0.125 mg Diltiazem HCl (Cardizem Cd -) 180 mg PO DAILY [facility] Last Admin: 04/04/18 10:36 Dose: 180 mg Furosemide (Lasix -) 40 mg PO BID@0600,1400 [facility] Last Admin: 04/04/18 06:12 Dose: 40 mg Gabapentin (Neurontin -) 100 mg PO DAILY [facility] Last Admin: 04/04/18 10:36 Dose: 100 mg Vancomycin HCl 1,000 mg/ (Dextrose) 250 mls @ 200 mls/hr IVPB Q24H [facility]; Protocol Piperacillin Sod/Tazobactam (Sod 4.5 gm/ Dextrose) 100 mls @ 200 mls/hr IVPB Q8H-IV [facility]; Protocol Last Admin: 04/04/18 10:34 Dose: 200 mls/hr Insulin Aspart (Novolog Vial Sliding Scale -) 1 vial SQ ACHS [facility]; Protocol Last Admin: 04/04/18 12:13 Dose: 8 units Levothyroxine Sodium (Synthroid -) 50 mcg PO AM [facility] Last Admin: 04/04/18 06:12 Dose: 50 mcg Losartan Potassium (Cozaar -) 25 mg PO DAILY [facility] Last Admin: 04/04/18 10:36 Dose: 25 mg Methylprednisolone Sodium Succinate (Solu-Medrol -) 60 mg IVPUSH Q6H-IV [facility] Last Admin: 04/04/18 09:06 Dose: 60 mg Mometasone Furoate (Asmanex 220mcg -) 1 puff IH DAILY [facility] Last Admin: 04/04/18 10:34 Dose: 1 puff Nystatin (Mycostatin Cream -) 1 applic TP BID [facility] Last Admin: 04/04/18 11:07 Dose: Not Given Oxycodone HCl (Roxicodone -) 5 mg PO Q12H PRN PRN Reason: PAIN LEVEL 1-5 Last Admin: 04/04/18 03:52 Dose: 5 mg Pantoprazole Sodium (Protonix -) 40 mg PO DAILY [facility] Last Admin: 04/04/18 10:36 Dose: 40 mg Tiotropium [place] (Spiriva -) 1 puff IH DAILY [facility] Last Admin: 04/04/18 10:35 Dose: 1 puff Warfarin Sodium (Coumadin -) 3 mg PO DAILY@1800 [facility] A/P Acute on Chronic Hypoxic and Hypercapneic Respiratory Failure Acute COPD Exacerbation Cellulitis LV Diastolic Dysfunction CAD Atrial Fibrillation HTN DM Hypothyroidism h/o DVT - continue medrol at current dose - inhaled bronchodilators standing and PRN - O2 to keep SpO2 >90% - continue antibiotics per ID - lasix - rate controlled - continue anticoaglation
[2018-04-04] MEDS ORDERED: WARFARIN NA 3 MG TABLET PO SCH (18:00)
[2018-04-04] MEDS: VANCOMYCIN 1,000 MG in DEXTROSE 5%-WATER - 250 ML IVPB SCH (18:48)
--- NOTE | 2018-04-04 21:02 | PN ---
Progress Note, Physician History of Present Illness: OOB in chair Slightly confused No focal complaint - Current Medication List Current Medications: Active Medications Acetaminophen (Tylenol -) 650 mg PO Q6H PRN PRN Reason: PAIN Albuterol Sulfate (Ventolin 0.083% Nebulizer Soln -) 1 amp NEB Q4H PRN PRN Reason: SHORT OF BREATH/WHEEZING Last Admin: 04/04/18 04:23 Dose: 1 amp Allopurinol (Zyloprim -) 100 mg PO DAILY [facility] Last Admin: 04/04/18 10:36 Dose: 100 mg Arformoterol Tartrate (Brovana (Restricted To Pulmonology/Resp) -) 1 amp NEB RBID [facility] Last Admin: 04/04/18 08:23 Dose: 1 amp Digoxin (Lanoxin -) 0.125 mg PO DAILY [facility] Last Admin: 04/04/18 10:35 Dose: 0.125 mg Diltiazem HCl (Cardizem Cd -) 180 mg PO DAILY [facility] Last Admin: 04/04/18 10:36 Dose: 180 mg Furosemide (Lasix -) 40 mg PO BID@0600,1400 [facility] Last Admin: 04/04/18 13:39 Dose: 40 mg Gabapentin (Neurontin -) 100 mg PO DAILY [facility] Last Admin: 04/04/18 10:36 Dose: 100 mg Piperacillin Sod/Tazobactam (Sod 4.5 gm/ Dextrose) 100 mls @ 200 mls/hr IVPB Q8H-IV [facility]; Protocol Last Admin: 04/04/18 17:45 Dose: 200 mls/hr Vancomycin HCl 1,000 mg/ (Dextrose) 250 mls @ 166.667 mls/hr IVPB Q24H [facility]; Protocol Last Admin: 04/04/18 18:48 Dose: 166.667 mls/hr Insulin Aspart (Novolog Vial Sliding Scale -) 1 vial SQ ACHS [facility]; Protocol Last Admin: 04/04/18 17:45 Dose: 4 units Levothyroxine Sodium (Synthroid -) 50 mcg PO AM [facility] Last Admin: 04/04/18 06:12 Dose: 50 mcg Losartan Potassium (Cozaar -) 25 mg PO DAILY [facility] Last Admin: 04/04/18 10:36 Dose: 25 mg Methylprednisolone Sodium Succinate (Solu-Medrol -) 60 mg IVPUSH Q6H-IV [facility] Last Admin: 04/04/18 15:53 Dose: 60 mg Mometasone Furoate (Asmanex 220mcg -) 1 puff IH DAILY [facility] Last Admin: 04/04/18 10:34 Dose: 1 puff Nystatin (Mycostatin Cream -) 1 applic TP BID [facility] Last Admin: 04/04/18 11:07 Dose: Not Given Oxycodone HCl (Roxicodone -) 5 mg PO Q12H PRN PRN Reason: PAIN LEVEL 1-5 Last Admin: 04/04/18 03:52 Dose: 5 mg Pantoprazole Sodium (Protonix -) 40 mg PO DAILY [facility] Last Admin: 04/04/18 10:36 Dose: 40 mg Tiotropium [place] (Spiriva -) 1 puff IH DAILY [facility] Last Admin: 04/04/18 10:35 Dose: 1 puff Warfarin Sodium (Coumadin -) 3 mg PO DAILY@1800 [facility] Last Admin: 04/04/18 17:45 Dose: 3 mg - Objective Vital Signs: Vital Signs Temperature 97.5 F L 04/04/18 17:16 Pulse Rate 90 04/04/18 17:16 Respiratory Rate 22 04/04/18 17:16 Blood Pressure 124/73 04/04/18 17:16 O2 Sat by Pulse Oximetry (%) 96 04/04/18 18:03 Constitutional: Yes: No Distress Cardiovascular: Yes: Regular Rate and Rhythm, S1, S2 Respiratory: Yes: CTA Bilaterally Gastrointestinal: Yes: Normal Bowel Sounds, Soft, Other (massive pannus with erythema/ induration) Edema: Yes Labs: CBC, BMP 04/04/18 06:30 04/04/18 06:30 INR, PTT INR 2.99 (0.82-1.09) H 04/04/18 06:30 Assessment/Plan Cellulitis UTI Hx resistant pathogens Await c/s Continue vancomycin/zosyn
[2018-04-05] MEDS ORDERED: DEXTROSE 5%-WATER 100 ML IVPB ONE ×3 (02:25→16:04)
[2018-04-05] MEDS ORDERED: PIPERACILLIN/TAZOBACTAM 4.5 GM VIAL IVPB ONE ×3 (02:25→16:04)
[2018-04-05] MEDS: methylPREDNISolone NA SUCC 125 MG/2 ML VIAL IVPUSH SCH ×4 (02:42→20:36)
[2018-04-05] MEDS: PIPERACILLIN/TAZOB 4.5 GM 4.5 GM in DEXTROSE 5%-WATER 100 ML IVPB SCH ×3 (02:42→17:13)
[2018-04-05] MEDS: FUROSEMIDE 40 MG TABLET (FP) PO SCH ×2 (06:08→15:13)
[2018-04-05] MEDS: LEVOTHYROXINE NA 50 MCG TABLET (FP) PO SCH (06:08)
[2018-04-05] MEDS: INSULIN SLIDING SCALE (NOVOLOG) 1 VIAL SQ SCH ×4 (06:16→21:06)
[2018-04-05] MEDS ORDERED: INSULIN (NOVOLOG) ASPART 100 UNITS/ML 10ML VIAL ONE (06:16)
[2018-04-05 07:15] LABS: HEMATOCRIT 36.7 % (32.4-45.2); HEMOGLOBIN 11.5 GM/dL (10.7-15.3); MCH 24.8 pg (25.7-33.7); MCHC 31.4 g/dl (32.0-36.0); MEAN CELL VOLUME 78.9 fl (80-96); MEAN PLT VOLUME 7.7 fl (7.5-11.1); PLATELET COUNT 316 K/MM3 (134-434); RBC 4.65 M/mm3 (3.60-5.2); RDW 19.5 % (11.6-15.6); WHITE BLOOD COUNT 9.1 K/mm3 (4.0-10.0)
[2018-04-05 07:38] LABS: INR 3.23 (0.82-1.09); PROTHROMBIN TIME (PATIENT) 36.5 SEC (9.7-13.0)
[2018-04-05 08:11] LABS: ALBUMIN 3.3 g/dl (3.4-5.0); ANION GAP 8 (8-16); BLOOD UREA NITROGEN 31 mg/dL (7-18); CHLORIDE 103 mmol/L (98-107); CO2 31 mmol/L (21-32); GLUCOSE,RANDOM 199 mg/dL (74-106); MAGNESIUM 2.2 mg/dL (1.8-2.4); POTASSIUM 3.7 mmol/L (3.5-5.1); SGOT/AST 18 U/L (15-37); SGPT/ALT 15 U/L (12-78); SODIUM 142 mmol/L (136-145)
[2018-04-05 08:16] LABS: ALK PHOS 106 U/L (45-117); BILIRUBIN,TOTAL 0.7 mg/dL (0.2-1.0); TOT PROT 7.2 g/dl (6.4-8.2)
[2018-04-05] MEDS: ARFORMOTEROL TARTRATE 15 MCG/2 ML VIAL NEB SCH ×2 (08:30→20:12)
[2018-04-05 08:33] LABS: PLATELET ESTIMATE ADEQUATE
[2018-04-05] MEDS ORDERED: PT OWN MED DRAWER 7, Y5N ONE ×2 (09:10→16:04)
[2018-04-05] MEDS: LOSARTAN POTASSIUM 25 MG TABLET PO SCH (09:19)
[2018-04-05] MEDS: DIGOXIN 0.125 MG TABLET (FP) PO SCH (09:20)
[2018-04-05] MEDS: TIOTROPIUM BROMIDE 18 MCG CAPSULES IH SCH (09:21)
[2018-04-05] MEDS: ALLOPURINOL 100 MG TABLET (FP) PO SCH (09:21)
[2018-04-05] MEDS: GABAPENTIN 100 MG CAPSULE (FP) PO SCH (09:21)
[2018-04-05] MEDS: PANTOPRAZOLE 40 MG TABLET (FP) PO SCH (09:21)
[2018-04-05] MEDS: MOMETASONE FUROATE 220 MCG/IH INHALER IH SCH (09:28)
[2018-04-05] MEDS: NYSTATIN 100,000 UNIT/GM TOPICAL CREAM 15 GM TUBE TP SCH ×2 (09:28→21:06)
--- NOTE | 2018-04-05 11:56 | PN ---
Progress Note, Physician History of Present Illness: Dyspnea, wheezes, productive cough persists. - Current Medication List Current Medications: Active Medications Acetaminophen (Tylenol -) 650 mg PO Q6H PRN PRN Reason: PAIN Albuterol Sulfate (Ventolin 0.083% Nebulizer Soln -) 1 amp NEB Q4H PRN PRN Reason: SHORT OF BREATH/WHEEZING Last Admin: 04/04/18 04:23 Dose: 1 amp Allopurinol (Zyloprim -) 100 mg PO DAILY [facility] Last Admin: 04/05/18 09:21 Dose: 100 mg Arformoterol Tartrate (Brovana (Restricted To Pulmonology/Resp) -) 1 amp NEB RBID [facility] Last Admin: 04/05/18 08:30 Dose: 1 amp Digoxin (Lanoxin -) 0.125 mg PO DAILY [facility] Last Admin: 04/05/18 09:20 Dose: Not Given Diltiazem HCl (Cardizem Cd -) 180 mg PO DAILY [facility] Last Admin: 04/05/18 09:19 Dose: Not Given Furosemide (Lasix -) 40 mg PO BID@0600,1400 [facility] Last Admin: 04/05/18 06:08 Dose: 40 mg Gabapentin (Neurontin -) 100 mg PO DAILY [facility] Last Admin: 04/05/18 09:21 Dose: 100 mg Piperacillin Sod/Tazobactam (Sod 4.5 gm/ Dextrose) 100 mls @ 200 mls/hr IVPB Q8H-IV [facility]; Protocol Last Admin: 04/05/18 09:21 Dose: 200 mls/hr Vancomycin HCl 1,000 mg/ (Dextrose) 250 mls @ 166.667 mls/hr IVPB Q24H [facility]; Protocol Last Admin: 04/04/18 18:48 Dose: 166.667 mls/hr Insulin Aspart (Novolog Vial Sliding Scale -) 1 vial SQ ACHS [facility]; Protocol Last Admin: 04/05/18 06:16 Dose: 4 units Levothyroxine Sodium (Synthroid -) 50 mcg PO AM [facility] Last Admin: 04/05/18 06:08 Dose: 50 mcg Losartan Potassium (Cozaar -) 25 mg PO DAILY [facility] Last Admin: 04/05/18 09:19 Dose: 25 mg Methylprednisolone Sodium Succinate (Solu-Medrol -) 60 mg IVPUSH Q6H-IV [facility] Last Admin: 04/05/18 09:18 Dose: 60 mg Mometasone Furoate (Asmanex 220mcg -) 1 puff IH DAILY [facility] Last Admin: 04/05/18 09:28 Dose: 1 puff Nystatin (Mycostatin Cream -) 1 applic TP BID [facility] Last Admin: 04/05/18 09:28 Dose: 1 applic Oxycodone HCl (Roxicodone -) 5 mg PO Q12H PRN PRN Reason: PAIN LEVEL 1-5 Last Admin: 04/04/18 21:42 Dose: 5 mg Pantoprazole Sodium (Protonix -) 40 mg PO DAILY [facility] Last Admin: 04/05/18 09:21 Dose: 40 mg Tiotropium [place] (Spiriva -) 1 puff IH DAILY [facility] Last Admin: 04/05/18 09:21 Dose: 1 puff Warfarin Sodium (Coumadin -) 3 mg PO DAILY@1800 [facility] Last Admin: 04/04/18 17:45 Dose: 3 mg - Objective Vital Signs: Vital Signs Temperature 98.1 F 04/05/18 06:00 Pulse Rate 48 L 04/05/18 10:00 Respiratory Rate 24 04/05/18 10:00 Blood Pressure 120/68 04/05/18 10:00 O2 Sat by Pulse Oximetry (%) 96 04/04/18 21:00 Constitutional: Yes: No Distress, Calm Neck: Yes: Supple Cardiovascular: Yes: Pulse Irregular Respiratory: Yes: Regular, Cough, Diminished, On Nasal O2, SOB, Wheezes Gastrointestinal: Yes: Normal Bowel Sounds, Soft, Abdomen, Obese Edema: Yes Edema: LLE: 2+, RLE: 2+ Integumentary: Yes: Venous Stasis Changes Labs: CBC, BMP 04/05/18 06:22 04/05/18 06:22 INR, PTT INR 3.23 (0.82-1.09) H 04/05/18 06:22 - ....Imaging EKG: Report Reviewed (Tele: [place] afib) Problem List - Problems (1) Chronic anticoagulation Code(s): Z79.01 - [employer] (CURRENT) USE OF ANTICOAGULANTS (2) COPD exacerbation Code(s): J44.1 - CHRONIC OBSTRUCTIVE PULMONARY DISEASE W (ACUTE) EXACERBATION (3) Atrial fibrillation Code(s): I48.91 - UNSPECIFIED ATRIAL FIBRILLATION Qualifiers: Atrial fibrillation type: chronic Qualified Code(s): I48.2 - Chronic atrial fibrillation (4) Chronic bronchitis Code(s): J42 - UNSPECIFIED CHRONIC BRONCHITIS Qualifiers: Chronic bronchitis type: unspecified Qualified Code(s): J42 - Unspecified chronic bronchitis (5) Chronic venous stasis dermatitis of both lower extremities Code(s): I87.2 - VENOUS INSUFFICIENCY (CHRONIC) (PERIPHERAL) (6) Diastolic dysfunction without heart failure Code(s): I51.9 - HEART DISEASE, UNSPECIFIED (7) HTN (hypertension) Code(s): I10 - ESSENTIAL (PRIMARY) HYPERTENSION Qualifiers: Hypertension type: essential hypertension Qualified Code(s): I10 - Essential (primary) hypertension (8) Hypothyroidism Code(s): E03.9 - HYPOTHYROIDISM, UNSPECIFIED (9) Morbid obesity Code(s): E66.01 - MORBID (SEVERE) OBESITY DUE TO EXCESS CALORIES Assessment/Plan 1. Acute on chronic hypoxemic/hypercapenic respiratory failure related to exacerbation of reactive airway disease/COPD (O2 and steroid-dependent) 2. Diastolic dysfunction 3. CAD angina pectoris, stable 4. Permanent atrial fibrillation [id number] score of 7 on Coumadin, therapeutic INR, with slow ventricular response 5. HTN/hypertensive cardiovascular disease 6. DM, hypoglycemia 7. Hypothyroidism 8. CKD 9. 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 History of DVT 11. Chronic venous stasis 12. h/o C. diff Ag + PLAN: 1. Decrease Cardizem CD 120 qd 2. D/c Digoxin 0.125 qd 3. Continue Lasix 40 bid with close monitoring of renal function 4. Continue Cozaar 25 qd with close monitoring of renal function 5. A/C with Coumadin as per INR 6. BD, Singulair, IV steroid with GI protection, empiric abx course, O2 to keep Spo2 >90% 7. F/u chest ct results
--- NOTE | 2018-04-05 12:29 | PN ---
Progress Note (short form) - Note Progress Note: PULMONARY Feels about the same, still with shortness of breath, cough and wheezing. Vital Signs Period Temp Pulse Resp BP Sys/Luke Pulse Ox Last 24 Hr 97.3 F-98.1 F 38-90 20-24 102-149/48-74 95-96 Gen: tachypneic with speaking Heart: RRR Lung: scattered rhonchi Abd: soft, nontender Ext: + edema CBC, BMP 04/05/18 06:22 04/05/18 06:22 Active Medications Acetaminophen (Tylenol -) 650 mg PO Q6H PRN PRN Reason: PAIN Albuterol Sulfate (Ventolin 0.083% Nebulizer Soln -) 1 amp NEB Q4H PRN PRN Reason: SHORT OF BREATH/WHEEZING Last Admin: 04/04/18 04:23 Dose: 1 amp Allopurinol (Zyloprim -) 100 mg PO DAILY [facility] Last Admin: 04/05/18 09:21 Dose: 100 mg Arformoterol Tartrate (Brovana (Restricted To Pulmonology/Resp) -) 1 amp NEB RBID [facility] Last Admin: 04/05/18 08:30 Dose: 1 amp Diltiazem HCl (Cardizem Cd -) 120 mg PO DAILY [facility] Furosemide (Lasix -) 40 mg PO BID@0600,1400 [facility] Last Admin: 04/05/18 06:08 Dose: 40 mg Gabapentin (Neurontin -) 100 mg PO DAILY [facility] Last Admin: 04/05/18 09:21 Dose: 100 mg Piperacillin Sod/Tazobactam (Sod 4.5 gm/ Dextrose) 100 mls @ 200 mls/hr IVPB Q8H-IV LYUDMILA; Protocol Last Admin: 04/05/18 09:21 Dose: 200 mls/hr Vancomycin HCl 1,000 mg/ (Dextrose) 250 mls @ 166.667 mls/hr IVPB Q24H LYUDMILA; Protocol Last Admin: 04/04/18 18:48 Dose: 166.667 mls/hr Insulin Aspart (Novolog Vial Sliding Scale -) 1 vial SQ ACHS LYUDMILA; Protocol Last Admin: 04/05/18 12:09 Dose: 4 units Levothyroxine Sodium (Synthroid -) 50 mcg PO AM [facility]YUDMILA Last Admin: 04/05/18 06:08 Dose: 50 mcg Losartan Potassium (Cozaar -) 25 mg PO DAILY [facility] Last Admin: 04/05/18 09:19 Dose: 25 mg Methylprednisolone Sodium Succinate (Solu-Medrol -) 60 mg IVPUSH Q6H-IV [facility] Last Admin: 04/05/18 09:18 Dose: 60 mg Mometasone Furoate (Asmanex 220mcg -) 1 puff IH DAILY [facility] Last Admin: 04/05/18 09:28 Dose: 1 puff Nystatin (Mycostatin Cream -) 1 applic TP BID [facility] Last Admin: 04/05/18 09:28 Dose: 1 applic Oxycodone HCl (Roxicodone -) 5 mg PO Q12H PRN PRN Reason: PAIN LEVEL 1-5 Last Admin: 04/04/18 21:42 Dose: 5 mg Pantoprazole Sodium (Protonix -) 40 mg PO DAILY [facility] Last Admin: 04/05/18 09:21 Dose: 40 mg Tiotropium [place] (Spiriva -) 1 puff IH DAILY [facility] Last Admin: 04/05/18 09:21 Dose: 1 puff Warfarin Sodium (Coumadin -) 3 mg PO DAILY@1800 LYUDMILA A/P Acute on Chronic Hypoxic and Hypercapneic Respiratory Failure Acute COPD Exacerbation Cellulitis LV Diastolic Dysfunction CAD Atrial Fibrillation HTN DM Hypothyroidism h/o DVT - continue medrol at current dose - inhaled bronchodilators standing and PRN - O2 to keep SpO2 >90% - continue antibiotics per ID - lasix - rate controlled - continue anticoaglation
--- NOTE | 2018-04-05 15:16 | PN ---
Progress Note, Physician Chief Complaint: Comfortable, denies any chest pain off and on SOB - Current Medication List Current Medications: Active Medications Acetaminophen (Tylenol -) 650 mg PO Q6H PRN PRN Reason: PAIN Albuterol Sulfate (Ventolin 0.083% Nebulizer Soln -) 1 amp NEB Q4H PRN PRN Reason: SHORT OF BREATH/WHEEZING Last Admin: 04/04/18 04:23 Dose: 1 amp Allopurinol (Zyloprim -) 100 mg PO DAILY [facility] Last Admin: 04/05/18 09:21 Dose: 100 mg Arformoterol Tartrate (Brovana (Restricted To Pulmonology/Resp) -) 1 amp NEB RBID [facility] Last Admin: 04/05/18 08:30 Dose: 1 amp Diltiazem HCl (Cardizem Cd -) 120 mg PO DAILY [facility] Furosemide (Lasix -) 40 mg PO BID@0600,1400 [facility] Last Admin: 04/05/18 06:08 Dose: 40 mg Gabapentin (Neurontin -) 100 mg PO DAILY [facility] Last Admin: 04/05/18 09:21 Dose: 100 mg Piperacillin Sod/Tazobactam (Sod 4.5 gm/ Dextrose) 100 mls @ 200 mls/hr IVPB Q8H-IV [facility]; Protocol Last Admin: 04/05/18 09:21 Dose: 200 mls/hr Vancomycin HCl 1,000 mg/ (Dextrose) 250 mls @ 166.667 mls/hr IVPB Q24H [facility]; Protocol Last Admin: 04/04/18 18:48 Dose: 166.667 mls/hr Insulin Aspart (Novolog Vial Sliding Scale -) 1 vial SQ ACHS [facility]; Protocol Last Admin: 04/05/18 12:09 Dose: 4 units Levothyroxine Sodium (Synthroid -) 50 mcg PO AM [facility] Last Admin: 04/05/18 06:08 Dose: 50 mcg Losartan Potassium (Cozaar -) 25 mg PO DAILY [facility] Last Admin: 04/05/18 09:19 Dose: 25 mg Methylprednisolone Sodium Succinate (Solu-Medrol -) 60 mg IVPUSH Q6H-IV [facility] Last Admin: 04/05/18 09:18 Dose: 60 mg Mometasone Furoate (Asmanex 220mcg -) 1 puff IH DAILY [facility] Last Admin: 04/05/18 09:28 Dose: 1 puff Nystatin (Mycostatin Cream -) [address] [facility] Last Admin: 04/05/18 09:28 Dose: 1 applic Oxycodone HCl (Roxicodone -) 5 mg PO Q12H PRN PRN Reason: PAIN LEVEL 1-5 Last Admin: 04/04/18 21:42 Dose: 5 mg Pantoprazole Sodium (Protonix -) [address] [facility] Last Admin: 04/05/18 09:21 Dose: 40 mg Tiotropium [place] (Spiriva -) [address] [facility] Last Admin: 04/05/18 09:21 Dose: 1 puff Warfarin Sodium (Coumadin -) 3 mg PO DAILY@1800 [facility] - Objective Vital Signs: Vital Signs Temperature 98.1 F 04/05/18 06:00 Pulse Rate 48 L 04/05/18 10:00 Respiratory Rate 24 04/05/18 10:00 Blood Pressure 120/68 04/05/18 10:00 O2 Sat by Pulse Oximetry (%) 96 04/05/18 09:00 Constitutional: No Distress HEENT: YAtraumatic, NormocephalicConjunctiva Clear, EOM Intact, PERRL. No: Sclera Icterus Neck: Trachea Midline. No: Decreased ROM, Lymphadenopathy Cardiovascular: Pulse Irregular, S1, S2. No: JVD Respiratory: Yes: On Nasal O2, Rales Gastrointestinal: : Normal Bowel Sounds, Soft Extremities: Other (Chronic Venous stasis and Ulcers) Neurological: Alert, Oriented, Motor Strength: WNL, LUE, LLE, RUE, RLE Labs: CBC, BMP 04/05/18 06:22 04/05/18 06:22 INR, PTT INR 3.23 (0.82-1.09) H 04/05/18 06:22 Problem List - Problems (1) Acute on chronic respiratory failure with hypoxia and hypercapnia Assessment/Plan: Due to CoPD exacerbation on Inhaled bronchodilators, O2 inhalation and IV Steroids will F/U Pulmonary consult recommendations Code(s): J96.21 - ACUTE AND CHRONIC RESPIRATORY FAILURE WITH HYPOXIA; J96.22 - ACUTE AND CHRONIC RESPIRATORY FAILURE WITH HYPERCAPNIA (2) COPD exacerbation Assessment/Plan: Cont Current management still c/o SOB Code(s): J44.1 - CHRONIC OBSTRUCTIVE PULMONARY DISEASE W (ACUTE) EXACERBATION (3) Acute on chronic diastolic (congestive) heart failure Assessment/Plan: Due to Afib now rate controlled F/U Cardiology recommendations Code(s): I50.33 - ACUTE ON CHRONIC DIASTOLIC (CONGESTIVE) HEART FAILURE (4) Atrial fibrillation Assessment/Plan: Persistet IFib now rate controlled on Ac INR 3.2 decrease coumadin 2 mg cont Dig and Diltizem F/U INR in am Code(s): I48.91 - UNSPECIFIED ATRIAL FIBRILLATION Qualifiers: Atrial fibrillation type: chronic Qualified Code(s): I48.2 - Chronic atrial fibrillation (5) Chronic wound of extremity Assessment/Plan: Infected on IV Vancomycine and Zosyn F/U ID recommendations Code(s): [id number] - (6) Hypothyroidism Assessment/Plan: Cont levothyroxine Code(s): E03.9 - HYPOTHYROIDISM, UNSPECIFIED (7) Morbid obesity Assessment/Plan: Out patient nutrition evaluation Code(s): E66.01 - MORBID (SEVERE) OBESITY DUE TO EXCESS CALORIES (8) Intertriginous candidiasis Assessment/Plan: Of groin Topical Nystatin Code(s): B37.2 - CANDIDIASIS OF SKIN AND NAIL (9) DVT prophylaxis Code(s): [id number] - (10) Diabetes Assessment/Plan: On Correction dose insulin Code(s): E11.9 - TYPE 2 DIABETES MELLITUS WITHOUT COMPLICATIONS Qualifiers: Diabetes mellitus type: type 2 Diabetes mellitus correction insulin use: without cloth dyer use Diabetes mellitus complication status: with hyperglycemia Qualified Code(s): E11.65 - Type 2 diabetes mellitus with hyperglycemia
--- NOTE | 2018-04-05 15:54 | PN ---
Progress Note, Physician History of Present Illness: Seated in bed Offers no complaints Afebrile WBC WNL Wound c/s mixed BC (-) - Current Medication List Current Medications: Active Medications Acetaminophen (Tylenol -) 650 mg PO Q6H PRN PRN Reason: PAIN Albuterol Sulfate (Ventolin 0.083% Nebulizer Soln -) 1 amp NEB Q4H PRN PRN Reason: SHORT OF BREATH/WHEEZING Last Admin: 04/04/18 04:23 Dose: 1 amp Allopurinol (Zyloprim -) 100 mg PO DAILY [facility] Last Admin: 04/05/18 09:21 Dose: 100 mg Arformoterol Tartrate (Brovana (Restricted To Pulmonology/Resp) -) 1 amp NEB RBID [facility] Last Admin: 04/05/18 08:30 Dose: 1 amp Diltiazem HCl (Cardizem Cd -) 120 mg PO DAILY [facility] Furosemide (Lasix -) 40 mg PO BID@0600,1400 [facility] Last Admin: 04/05/18 15:13 Dose: 40 mg Gabapentin (Neurontin -) 100 mg PO DAILY [facility] Last Admin: 04/05/18 09:21 Dose: 100 mg Piperacillin Sod/Tazobactam (Sod 4.5 gm/ Dextrose) 100 mls @ 200 mls/hr IVPB Q8H-IV [facility]; Protocol Last Admin: 04/05/18 09:21 Dose: 200 mls/hr Vancomycin HCl 1,000 mg/ (Dextrose) 250 mls @ 166.667 mls/hr IVPB Q24H [facility]; Protocol Last Admin: 04/04/18 18:48 Dose: 166.667 mls/hr Insulin Aspart (Novolog Vial Sliding Scale -) 1 vial SQ ACHS [facility]; Protocol Last Admin: 04/05/18 12:09 Dose: 4 units Levothyroxine Sodium (Synthroid -) 50 mcg PO AM [facility] Last Admin: 04/05/18 06:08 Dose: 50 mcg Losartan Potassium (Cozaar -) 25 mg PO DAILY [facility] Last Admin: 04/05/18 09:19 Dose: 25 mg Methylprednisolone Sodium Succinate (Solu-Medrol -) 60 mg IVPUSH Q6H-IV [facility] Last Admin: 04/05/18 15:12 Dose: 60 mg Mometasone Furoate (Asmanex 220mcg -) 1 puff IH DAILY [facility] Last Admin: 04/05/18 09:28 Dose: 1 puff Nystatin (Mycostatin Cream -) 1 applic TP BID [facility] Last Admin: 04/05/18 09:28 Dose: 1 applic Oxycodone HCl (Roxicodone -) 5 mg PO Q12H PRN PRN Reason: PAIN LEVEL 1-5 Last Admin: 04/04/18 21:42 Dose: 5 mg Pantoprazole Sodium (Protonix -) 40 mg PO DAILY [facility] Last Admin: 04/05/18 09:21 Dose: 40 mg Tiotropium [place] (Spiriva -) 1 puff IH DAILY [facility] Last Admin: 04/05/18 09:21 Dose: 1 puff Warfarin Sodium (Coumadin -) 2 mg PO DAILY@1800 [facility] - Objective Vital Signs: Vital Signs Temperature 98.4 F 04/05/18 10:00 Pulse Rate 72 04/05/18 14:00 Respiratory Rate 22 04/05/18 14:00 Blood Pressure 118/72 04/05/18 14:00 O2 Sat by Pulse Oximetry (%) 96 04/05/18 09:00 Constitutional: Yes: No Distress Eyes: Yes: Conjunctiva Clear Cardiovascular: Yes: Regular Rate and Rhythm, S1, S2 Respiratory: Yes: CTA Bilaterally Gastrointestinal: Yes: Normal Bowel Sounds, Soft, Other (massive pannus with erythema). No: Tenderness Edema: Yes Labs: CBC, BMP 04/05/18 06:22 04/05/18 06:22 INR, PTT INR 3.23 (0.82-1.09) H 04/05/18 06:22 Assessment/Plan Cellulitis UTI Hx resistant pathogens Await c/s Continue vancomycin/zosyn
[2018-04-05] MEDS: VANCOMYCIN 1,000 MG in DEXTROSE 5%-WATER - 250 ML IVPB SCH (16:36)
[2018-04-05] MEDS: oxyCODONE HCL 5 MG TABLET PO PRN (18:02)
[2018-04-05] MEDS: ACETAMINOPHEN 325 MG TABLET (FP) PO PRN (18:03)
[2018-04-06] MEDS ORDERED: PIPERACILLIN/TAZOBACTAM 4.5 GM VIAL IVPB ONE ×3 (00:28→17:03)
[2018-04-06] MEDS ORDERED: DEXTROSE 5%-WATER 100 ML IVPB ONE ×3 (00:28→17:03)
[2018-04-06] MEDS: PIPERACILLIN/TAZOB 4.5 GM 4.5 GM in DEXTROSE 5%-WATER 100 ML IVPB SCH ×3 (02:12→18:35)
[2018-04-06] MEDS: methylPREDNISolone NA SUCC 125 MG/2 ML VIAL IVPUSH SCH ×4 (02:13→21:34)
[2018-04-06] MEDS: INSULIN SLIDING SCALE (NOVOLOG) 1 VIAL SQ SCH ×4 (06:30→21:35)
[2018-04-06] MEDS: LEVOTHYROXINE NA 50 MCG TABLET (FP) PO SCH (06:30)
[2018-04-06] MEDS: FUROSEMIDE 40 MG TABLET (FP) PO SCH ×2 (06:30→14:11)
[2018-04-06 07:55] LABS: BASO % 0.1 % (0-2.0); HEMATOCRIT 35.3 % (32.4-45.2); HEMOGLOBIN 11.1 GM/dL (10.7-15.3); LYMPH % 7.1 % (8-40); MCH 24.7 pg (25.7-33.7); MCHC 31.4 g/dl (32.0-36.0); MEAN CELL VOLUME 78.7 fl (80-96); MEAN PLT VOLUME 7.9 fl (7.5-11.1); MONO % 2.1 % (3.8-10.2); NEUT % 90.7 % (42.8-82.8); PLATELET COUNT 271 K/MM3 (134-434); RBC 4.48 M/mm3 (3.60-5.2); RDW 19.8 % (11.6-15.6); WHITE BLOOD COUNT 6.8 K/mm3 (4.0-10.0)
[2018-04-06 08:39] LABS: ANION GAP 7 (8-16); BLOOD UREA NITROGEN 36 mg/dL (7-18); CALCIUM 8.7 mg/dL (8.5-10.1); CHLORIDE 100 mmol/L (98-107); CO2 35 mmol/L (21-32); CREATININE 1.1 mg/dL (0.55-1.02); GLUCOSE,RANDOM 249 mg/dL (74-106); SODIUM 142 mmol/L (136-145)
[2018-04-06 08:41] LABS: INR 3.73 (0.82-1.09); PROTHROMBIN TIME (PATIENT) 42.2 SEC (9.7-13.0)
[2018-04-06] MEDS ORDERED: PT OWN MED DRAWER 7, Y5N ONE ×3 (09:09→21:20)
--- NOTE | 2018-04-06 09:34 | PN ---
Progress Note (short form) - Note Progress Note: Dr. Garcia to document today. Coumadin held and KCL and Amaryl added to her usual home doses.
[2018-04-06] MEDS: NYSTATIN 100,000 UNIT/GM TOPICAL CREAM 15 GM TUBE TP SCH ×2 (09:37→21:35)
[2018-04-06] MEDS: ALLOPURINOL 100 MG TABLET (FP) PO SCH (09:37)
[2018-04-06] MEDS: TIOTROPIUM BROMIDE 18 MCG CAPSULES IH SCH (09:37)
[2018-04-06] MEDS: LOSARTAN POTASSIUM 25 MG TABLET PO SCH (09:37)
[2018-04-06] MEDS: PANTOPRAZOLE 40 MG TABLET (FP) PO SCH (09:37)
[2018-04-06] MEDS: MOMETASONE FUROATE 220 MCG/IH INHALER IH SCH (09:39)
--- NOTE | 2018-04-06 10:16 | PN ---
Progress Note, Physician History of Present Illness: Seated in bed C/O R leg pain with movement No c/o chest pain/ dyspnea + cough noted Afebrile WBC WNL Wound c/s mixed BC (-) - Current Medication List Current Medications: Active Medications Acetaminophen (Tylenol -) 650 mg PO Q6H PRN PRN Reason: PAIN Last Admin: 04/05/18 18:03 Dose: 650 mg Albuterol Sulfate (Ventolin 0.083% Nebulizer Soln -) 1 amp NEB Q4H PRN PRN Reason: SHORT OF BREATH/WHEEZING Last Admin: 04/04/18 04:23 Dose: 1 amp Allopurinol (Zyloprim -) 100 mg PO DAILY [facility] Last Admin: 04/06/18 09:37 Dose: 100 mg Arformoterol Tartrate (Brovana (Restricted To Pulmonology/Resp) -) 1 amp NEB RBID [facility] Last Admin: 04/05/18 20:12 Dose: 1 amp Diltiazem HCl (Cardizem Cd -) 120 mg PO DAILY [facility] Last Admin: 04/06/18 09:37 Dose: 120 mg Furosemide (Lasix -) 40 mg PO BID@0600,1400 [facility] Last Admin: 04/06/18 06:30 Dose: 40 mg Gabapentin (Neurontin -) 100 mg PO DAILY [facility] Last Admin: 04/05/18 09:21 Dose: 100 mg Glimepiride (Amaryl -) 1 mg PO DAILY@0700 [facility] Piperacillin Sod/Tazobactam (Sod 4.5 gm/ Dextrose) 100 mls @ 200 mls/hr IVPB Q8H-IV [facility]; Protocol Last Admin: 04/06/18 09:37 Dose: 200 mls/hr Vancomycin HCl 1,000 mg/ (Dextrose) 250 mls @ 166.667 mls/hr IVPB Q24H [facility]; Protocol Last Admin: 04/05/18 16:36 Dose: 166.667 mls/hr Insulin Aspart (Novolog Vial Sliding Scale -) 1 vial SQ ACHS [facility]; Protocol Last Admin: 04/06/18 06:30 Dose: 4 units Levothyroxine Sodium (Synthroid -) 50 mcg PO AM [facility] Last Admin: 04/06/18 06:30 Dose: 50 mcg Losartan Potassium (Cozaar -) 25 mg PO DAILY [facility] Last Admin: 04/06/18 09:37 Dose: 25 mg Methylprednisolone Sodium Succinate (Solu-Medrol -) 60 mg IVPUSH Q6H-IV [facility] Last Admin: 04/06/18 09:36 Dose: 60 mg Mometasone Furoate (Asmanex 220mcg -) 1 puff IH DAILY [facility] Last Admin: 04/06/18 09:39 Dose: 1 puff Nystatin (Mycostatin Cream -) 1 applic TP BID [facility] Last Admin: 04/06/18 09:37 Dose: 1 applic Pantoprazole Sodium (Protonix -) 40 mg PO DAILY [facility] Last Admin: 04/06/18 09:37 Dose: 40 mg Potassium Chloride (K-Dur -) 20 meq PO TID [facility] Tiotropium [place] (Spiriva -) 1 puff IH DAILY [facility] Last Admin: 04/06/18 09:37 Dose: 1 puff Warfarin Sodium (Coumadin -) 2 mg PO DAILY@1800 [facility] - Objective Vital Signs: Vital Signs Temperature 98.0 F 04/06/18 09:59 Pulse Rate 97 H 04/06/18 09:59 Respiratory Rate 20 04/06/18 09:59 Blood Pressure 138/69 04/06/18 09:59 O2 Sat by Pulse Oximetry (%) 96 04/06/18 09:00 Constitutional: Yes: Obese Cardiovascular: Yes: Regular Rate and Rhythm, S1, S2 Respiratory: Yes: Rhonchi, Wheezes Gastrointestinal: Yes: Normal Bowel Sounds, Soft, Abdomen, Obese, Other (+ massive pannus + erythema). No: Tenderness Edema: Yes Integumentary: Yes: Venous Stasis Changes, Other (+ ulceration R LE with serous drainage) Labs: CBC, BMP 04/06/18 06:40 04/06/18 06:40 INR, PTT INR 3.73 (0.82-1.09) H 04/06/18 06:40 Assessment/Plan Cellulitis, pannus UTI Hx resistant pathogens Await c/s Continue vancomycin/zosyn
--- NOTE | 2018-04-06 10:29 | CONSULT ---
- Consultation REQUESTING PROVIDER: CONSULT REQUEST: We have been asked to surgically evaluate this patient for diabetic foot wound, venous stasis. PCP:Navin Garcia MD HISTORY OF PRESENT ILLNESS: The patient is an 83F admitted for a COPD exacerbation c/o b/l LE pain and chronic venous stasis ulcers which has been long standing. Recently she has been managed by a vascular surgeon in [place], [place] where her daughter resides, and was last seen a few weeks ago, however, she is now located in [place] and has been home with [facility] managing her wound care. PMHx: COPD, CHF, DM, Gout, AFib PSHx: Abdominal Surgery: Yes (HERNIA REPAIR X 3) Appendectomy: Yes (RUPTURED) Cardiac Surgery: Yes (cardioversion x 2) Cholecystectomy: Yes Lung Surgery: No Neurologic Surgery: No Orthopedic Surgery: No Home Medications Medication Instructions Recorded Albuterol Sulfate Inhaler - 2 inh IH Q6H PRN #0 inh 06/22/13 [Ventolin HFA Inhaler -] Allopurinol [Zyloprim -] 100 mg PO DAILY #0 tablet 06/22/13 Diltiazem Cd [Cardizem Cd -] 180 mg PO DAILY #0 cap.cd.24h 06/22/13 Acetaminophen [Tylenol .Regular 650 mg PO Q6H PRN #240 tablet 06/23/13 Strength -] Potassium Chloride [K-Dur -] 20 meq PO TID tab 04/29/17 Losartan Potassium [Cozaar -] 25 mg PO DAILY #30 tablet 05/28/17 Warfarin Na [Coumadin -] 4 mg PO DAILY@1800 tablet 05/28/17 Digoxin [Lanoxin -] 0.125 mg PO DAILY 09/24/17 Albuterol 0.083% Nebulizer Bonnie 1 amp NEB Q4H PRN amp 10/02/17 [Ventolin 0.083% Nebulizer Soln -] Arformoterol Tartrate [Brovana -] 1 amp NEB RBID amp 10/02/17 Glimepiride [Glimepiride -] 1 mg PO DAILY@0700 tablet 10/02/17 Insulin Sliding Scale [Novolog 1 vial SQ TIDAC units 10/02/17 Vial Sliding Scale -] Levothyroxine [Synthroid -] 50 mcg PO DAILY 30 Days #30 tablet 10/02/17 Tiotropium [place] [Spiriva] 1 puff IH DAILY inh 10/02/17 oxyCODONE HCL [Roxicodone -] 5 mg PO Q12H PRN #30 tablet MDD 2 10/02/17 predniSONE [Deltasone -] 20 mg PO DAILY tablet 10/02/17 Furosemide [Lasix -] 40 mg PO BID@0600,1400 tablet 10/03/17 Gabapentin [Neurontin -] 100 mg PO DAILY 04/02/18 Allergies Allergy/AdvReac Type Severity Reaction Status Date / Time No Known Allergies Allergy Verified 04/02/18 17:20 REVIEW OF SYSTEMS: CONSTITUTIONAL: + fever, chills, generalized weakness, Absent: + irregular heart rate, peripheral edema RESPIRATORY: + productive cough, shortness of breath, dyspnea with exertion, wheezing GASTROINTESTINAL: Absent: abdominal pain, abdominal distension, MUSCULOSKELETAL: + myalgia, arthralgia, DM neuropathy SKIN: Chronic skin changes on LE HEMATOLOGIC/IMMUNOLOGIC: Absent: easy bleeding, easy bruising, lymphadenopathy NEUROLOGIC: Absent: headache, focal weakness, paresthesias, dizziness, seizure, mental status changes, PSYCHIATRIC: Absent: anxiety, depression, suicidal or homicidal ideation, hallucinations. PHYSICAL EXAM: GENERAL: Awake, alert, and fully oriented, in no acute distress. HEAD: Normal with no signs of trauma. EYES: sclera anicteric, conjunctiva clear. LUNGS: Auditory wheezing on 4L NC, + accessory muscle use. LOWER EXTREMITIES: B/l diffuse +2 pitting edema and chronic skin changes throughout. right leg with healing ulcer with well circumscribed boarders over anterior/medial compartment covered with large yellow intact fibrinous exudate, no bogginess or d/c surrounding tissue intact extremities warm to touch. 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 no evidence of ulceration or wound on b/l feet. chronic skin changes throughout with Hyperkeratosis. NEUROLOGICAL: Normal speech, gait not observed. PSYCH: Cooperative. Good eye contact. Appropriate mood and affect. Vital Signs Temperature 98.0 F 04/06/18 09:59 Pulse Rate 97 H 04/06/18 09:59 Respiratory Rate 20 04/06/18 09:59 Blood Pressure 138/69 04/06/18 09:59 O2 Sat by Pulse Oximetry (%) 96 04/06/18 09:00 Lab Results WBC 6.8 K/mm3 (4.0-10.0) 04/06/18 06:40 RBC 4.48 M/mm3 (3.60-5.2) 04/06/18 06:40 Hgb 11.1 GM/dL (10.7-15.3) 04/06/18 06:40 Hct 35.3 % (32.4-45.2) 04/06/18 06:40 MCV 78.7 fl (80-96) L 04/06/18 06:40 MCHC 31.4 g/dl (32.0-36.0) L 04/06/18 06:40 RDW 19.8 % (11.6-15.6) H 04/06/18 06:40 Plt Count 271 K/MM3 (134-434) 04/06/18 06:40 Sodium 142 mmol/L (136-145) 04/06/18 06:40 Potassium 3.0 mmol/L (3.5-5.1) L 04/06/18 06:40 Chloride 100 mmol/L (98-107) 04/06/18 06:40 Carbon Dioxide 35 mmol/L (21-32) H 04/06/18 06:40 Anion Gap 7 (8-16) L 04/06/18 06:40 BUN 36 mg/dL (7-18) H 04/06/18 06:40 Creatinine 1.1 mg/dL (0.55-1.02) H 04/06/18 06:40 Random Glucose 249 mg/dL (74-106) H 04/06/18 06:40 Calcium 8.7 mg/dL (8.5-10.1) 04/06/18 06:40 INR 3.73 (0.82-1.09) H 04/06/18 06:40 Problem List - Problems (1) Chronic venous stasis dermatitis of both lower extremities Assessment/Plan: 1) Apply Alginate to right LE over weeping area daily 2) light compression with b/l NAHOMI wraps, elevation 3) OOB with walker as tolerated WBAT- fall risk 4) Encourage discussion with family regarding care home care Evaluation and plan discussed with Dr. Dugan. Code(s): I87.2 - VENOUS INSUFFICIENCY (CHRONIC) (PERIPHERAL) Visit type - Case Type Case Type: ED Admission - Emergency Emergency Visit: Yes ED Registration Date: 04/02/18 Care time: The patient presented to the Emergency Department on the above date and was hospitalized for further evaluation of their emergent condition. - New patient This patient is new to me today: Yes Date on this admission: 04/06/18
--- NOTE | 2018-04-06 11:04 | PN ---
Progress Note, Physician Chief Complaint: Ms Grove says she is doing well and her breathing is much improved, but it is not at baseline. Denies chest pain and shortness of breath. - Current Medication List Current Medications: Active Medications Acetaminophen (Tylenol -) 650 mg PO Q6H PRN PRN Reason: PAIN Last Admin: 04/05/18 18:03 Dose: 650 mg Albuterol Sulfate (Ventolin 0.083% Nebulizer Soln -) 1 amp NEB Q4H PRN PRN Reason: SHORT OF BREATH/WHEEZING Last Admin: 04/04/18 04:23 Dose: 1 amp Allopurinol (Zyloprim -) 100 mg PO DAILY [facility] Last Admin: 04/06/18 09:37 Dose: 100 mg Arformoterol Tartrate (Brovana (Restricted To Pulmonology/Resp) -) 1 amp NEB RBID [facility] Last Admin: 04/05/18 20:12 Dose: 1 amp Diltiazem HCl (Cardizem Cd -) 120 mg PO DAILY [facility] Last Admin: 04/06/18 09:37 Dose: 120 mg Furosemide (Lasix -) 40 mg PO BID@0600,1400 [facility] Last Admin: 04/06/18 06:30 Dose: 40 mg Gabapentin (Neurontin -) 100 mg PO DAILY [facility] Last Admin: 04/05/18 09:21 Dose: 100 mg Glimepiride (Amaryl -) 1 mg PO DAILY@0700 [facility] Piperacillin Sod/Tazobactam (Sod 4.5 gm/ Dextrose) 100 mls @ 200 mls/hr IVPB Q8H-IV [facility]; Protocol Last Admin: 04/06/18 09:37 Dose: 200 mls/hr Vancomycin HCl 1,000 mg/ (Dextrose) 250 mls @ 166.667 mls/hr IVPB Q24H [facility]; Protocol Last Admin: 04/05/18 16:36 Dose: 166.667 mls/hr Insulin Aspart (Novolog Vial Sliding Scale -) 1 vial SQ ACHS [facility]; Protocol Last Admin: 04/06/18 06:30 Dose: 4 units Levothyroxine Sodium (Synthroid -) 50 mcg PO AM [facility] Last Admin: 04/06/18 06:30 Dose: 50 mcg Losartan Potassium (Cozaar -) 25 mg PO DAILY [facility] Last Admin: 04/06/18 09:37 Dose: 25 mg Methylprednisolone Sodium Succinate (Solu-Medrol -) 60 mg IVPUSH Q6H-IV [facility] Last Admin: 04/06/18 09:36 Dose: 60 mg Mometasone Furoate (Asmanex 220mcg -) 1 puff IH DAILY [facility] Last Admin: 04/06/18 09:39 Dose: 1 puff Nystatin (Mycostatin Cream -) 1 applic TP BID [facility] Last Admin: 04/06/18 09:37 Dose: 1 applic Pantoprazole Sodium (Protonix -) 40 mg PO DAILY [facility] Last Admin: 04/06/18 09:37 Dose: 40 mg Potassium Chloride (K-Dur -) 20 meq PO TID [facility] Tiotropium [place] (Spiriva -) 1 puff IH DAILY [facility] Last Admin: 04/06/18 09:37 Dose: 1 puff Warfarin Sodium (Coumadin -) 2 mg PO DAILY@1800 [facility] - Objective Vital Signs: Vital Signs Temperature 36.7 C 04/06/18 09:59 Pulse Rate 97 H 04/06/18 09:59 Respiratory Rate 20 04/06/18 09:59 Blood Pressure 138/69 04/06/18 09:59 O2 Sat by Pulse Oximetry (%) 96 04/06/18 09:00 Constitutional: Yes: No Distress, Calm, Obese Cardiovascular: Yes: Regular Rate and Rhythm. No: Gallop, Murmur, Rub Respiratory: Yes: Regular, On Nasal O2, Wheezes. No: CTA Bilaterally, Rales, Rhonchi (in all lung wilkes) Gastrointestinal: Yes: Normal Bowel Sounds, Soft. No: Distention, Tenderness Extremities: Yes: Other (wrapped) Edema: Yes Edema: LLE: 1+, RLE: 1+ Labs: CBC, BMP 04/06/18 06:40 04/06/18 06:40 INR, PTT INR 3.73 (0.82-1.09) H 04/06/18 06:40 Problem List - Problems (1) COPD exacerbation Code(s): J44.1 - CHRONIC OBSTRUCTIVE PULMONARY DISEASE W (ACUTE) EXACERBATION (2) Acute on chronic respiratory failure with hypoxia and hypercapnia Code(s): J96.21 - ACUTE AND CHRONIC RESPIRATORY FAILURE WITH HYPOXIA; J96.22 - ACUTE AND CHRONIC RESPIRATORY FAILURE WITH HYPERCAPNIA (3) Atrial fibrillation Code(s): I48.91 - UNSPECIFIED ATRIAL FIBRILLATION Qualifiers: Atrial fibrillation type: chronic Qualified Code(s): I48.2 - Chronic atrial fibrillation (4) CHF (congestive heart failure) Code(s): I50.9 - HEART FAILURE, UNSPECIFIED (5) Chronic wound of extremity Code(s): [id number] - (6) Diabetes Code(s): E11.9 - TYPE 2 DIABETES MELLITUS WITHOUT COMPLICATIONS Qualifiers: Diabetes mellitus type: type 2 Diabetes mellitus termite treater insulin use: without halfway use Diabetes mellitus complication status: with hyperglycemia Qualified Code(s): E11.65 - Type 2 diabetes mellitus with hyperglycemia (7) HTN (hypertension) Code(s): I10 - ESSENTIAL (PRIMARY) HYPERTENSION Qualifiers: Hypertension type: essential hypertension Qualified Code(s): I10 - Essential (primary) hypertension (8) Hypothyroidism Code(s): E03.9 - HYPOTHYROIDISM, UNSPECIFIED (9) Morbid obesity Code(s): E66.01 - MORBID (SEVERE) OBESITY DUE TO EXCESS CALORIES Assessment/Plan (1) COPD exacerbation Assessment/Plan: -case d/w Dr Ivan -suspect patient has chronic ronchi with wheezing, but is still not at baseline -continue oxygen support -continue solumedrol at current dose -continue asmanex, spiriva, brovana, and prn albuterol -improving Code(s): J44.1 - CHRONIC OBSTRUCTIVE PULMONARY DISEASE W (ACUTE) EXACERBATION (2) Acute on chronic respiratory failure with hypoxia and hypercapnia Assessment/Plan: -much improved -sitting up without oxygen and comfortable -at baseline needs it on exertion Code(s): J96.21 - ACUTE AND CHRONIC RESPIRATORY FAILURE WITH HYPOXIA; J96.22 - ACUTE AND CHRONIC RESPIRATORY FAILURE WITH HYPERCAPNIA (3) Atrial fibrillation Assessment/Plan: -continue diltiazem and digoxin -supratherapeutic on coumadin -coumadin held currently Code(s): I48.91 - UNSPECIFIED ATRIAL FIBRILLATION Qualifiers: Atrial fibrillation type: chronic Qualified Code(s): I48.2 - Chronic atrial fibrillation (4) CHF (congestive heart failure) Assessment/Plan: -does not appear in exacerbation -appreciate cardiology assistance -continue lasix 40mg bid Code(s): I50.9 - HEART FAILURE, UNSPECIFIED Qualifiers: Qualified Code(s): I50.32 - Chronic diastolic (congestive) heart failure (5) Chronic wound of extremity Assessment/Plan: -case d/w ID -plan to continue antibiotics -re-evaluate, may change to oral in next 24-48 hours Code(s): [id number] - (6) Diabetes Assessment/Plan: -continue SSI -will be elevated secondary to steroids Code(s): E11.9 - TYPE 2 DIABETES MELLITUS WITHOUT COMPLICATIONS Qualifiers: Diabetes mellitus type: type 2 Diabetes mellitus halfway insulin use: without halfway use Diabetes mellitus complication status: with hyperglycemia Qualified Code(s): E11.65 - Type 2 diabetes mellitus with hyperglycemia (7) HTN (hypertension) Assessment/Plan: -well controlled -continue current management Code(s): I10 - ESSENTIAL (PRIMARY) HYPERTENSION Qualifiers: Hypertension type: essential hypertension Qualified Code(s): I10 - Essential (primary) hypertension (8) Hypothyroidism Assessment/Plan: -continue levothyroxine Code(s): E03.9 - HYPOTHYROIDISM, UNSPECIFIED (9) Morbid obesity Assessment/Plan: -outpatient weight loss program Code(s): E66.01 - MORBID (SEVERE) OBESITY DUE TO EXCESS CALORIES
--- NOTE | 2018-04-06 11:33 | PN ---
Progress Note, Physician History of Present Illness: pulmonary alert,sitting up in bed still congested ,but less dyspneic - Current Medication List Current Medications: Active Medications Acetaminophen (Tylenol -) 650 mg PO Q6H PRN PRN Reason: PAIN Last Admin: 04/05/18 18:03 Dose: 650 mg Albuterol Sulfate (Ventolin 0.083% Nebulizer Soln -) 1 amp NEB Q4H PRN PRN Reason: SHORT OF BREATH/WHEEZING Last Admin: 04/04/18 04:23 Dose: 1 amp Allopurinol (Zyloprim -) 100 mg PO DAILY [facility] Last Admin: 04/06/18 09:37 Dose: 100 mg Arformoterol Tartrate (Brovana (Restricted To Pulmonology/Resp) -) 1 amp NEB RBID [facility] Last Admin: 04/05/18 20:12 Dose: 1 amp Diltiazem HCl (Cardizem Cd -) 120 mg PO DAILY [facility] Last Admin: 04/06/18 09:37 Dose: 120 mg Furosemide (Lasix -) 40 mg PO BID@0600,1400 [facility] Last Admin: 04/06/18 06:30 Dose: 40 mg Gabapentin (Neurontin -) 100 mg PO DAILY [facility] Last Admin: 04/05/18 09:21 Dose: 100 mg Glimepiride (Amaryl -) 1 mg PO DAILY@0700 [facility] Piperacillin Sod/Tazobactam (Sod 4.5 gm/ Dextrose) 100 mls @ 200 mls/hr IVPB Q8H-IV [facility]; Protocol Last Admin: 04/06/18 09:37 Dose: 200 mls/hr Vancomycin HCl 1,000 mg/ (Dextrose) 250 mls @ 166.667 mls/hr IVPB Q24H [facility]; Protocol Last Admin: 04/05/18 16:36 Dose: 166.667 mls/hr Insulin Aspart (Novolog Vial Sliding Scale -) 1 vial SQ ACHS [facility]; Protocol Last Admin: 04/06/18 06:30 Dose: 4 units Levothyroxine Sodium (Synthroid -) 50 mcg PO AM [facility] Last Admin: 04/06/18 06:30 Dose: 50 mcg Losartan Potassium (Cozaar -) 25 mg PO DAILY [facility] Last Admin: 04/06/18 09:37 Dose: 25 mg Methylprednisolone Sodium Succinate (Solu-Medrol -) 60 mg IVPUSH Q6H-IV [facility] Last Admin: 04/06/18 09:36 Dose: 60 mg Mometasone Furoate (Asmanex 220mcg -) 1 puff IH DAILY [facility] Last Admin: 04/06/18 09:39 Dose: 1 puff Nystatin (Mycostatin Cream -) 1 applic TP BID [facility] Last Admin: 04/06/18 09:37 Dose: 1 applic Pantoprazole Sodium (Protonix -) 40 mg PO DAILY [facility] Last Admin: 04/06/18 09:37 Dose: 40 mg Potassium Chloride (K-Dur -) 20 meq PO TID [facility] Tiotropium [place] (Spiriva -) 1 puff IH DAILY [facility] Last Admin: 04/06/18 09:37 Dose: 1 puff Warfarin Sodium (Coumadin -) 2 mg PO DAILY@1800 [facility] - Objective Vital Signs: Vital Signs Temperature 98.0 F 04/06/18 09:59 Pulse Rate 97 H 04/06/18 09:59 Respiratory Rate 20 04/06/18 09:59 Blood Pressure 138/69 04/06/18 09:59 O2 Sat by Pulse Oximetry (%) 96 04/06/18 09:00 Constitutional: Yes: Well Nourished, Obese Eyes: Yes: WNL HENT: Yes: WNL Neck: Yes: WNL Cardiovascular: Yes: Pulse Irregular, S1, S2 Respiratory: Yes: Rhonchi, Wheezes (bilateral wheezes and rhonchi) Gastrointestinal: Yes: Normal Bowel Sounds, Soft Extremities: Yes: WNL Edema: Yes Labs: CBC, BMP 04/06/18 06:40 04/06/18 06:40 INR, PTT INR 3.73 (0.82-1.09) H 04/06/18 06:40 Problem List - Problems (1) COPD exacerbation Code(s): J44.1 - CHRONIC OBSTRUCTIVE PULMONARY DISEASE W (ACUTE) EXACERBATION (2) Chronic anticoagulation Code(s): Z79.01 - MCC (CURRENT) USE OF ANTICOAGULANTS (3) Acute on chronic respiratory failure with hypoxia and hypercapnia Code(s): J96.21 - ACUTE AND CHRONIC RESPIRATORY FAILURE WITH HYPOXIA; J96.22 - ACUTE AND CHRONIC RESPIRATORY FAILURE WITH HYPERCAPNIA (4) Atrial fibrillation Code(s): I48.91 - UNSPECIFIED ATRIAL FIBRILLATION Qualifiers: Atrial fibrillation type: chronic Qualified Code(s): I48.2 - Chronic atrial fibrillation (5) CHF (congestive heart failure) Code(s): I50.9 - HEART FAILURE, UNSPECIFIED Qualifiers: Qualified Code(s): I50.32 - Chronic diastolic (congestive) heart failure (6) Chronic wound of extremity Code(s): [id number] - (7) Diabetes Code(s): E11.9 - TYPE 2 DIABETES MELLITUS WITHOUT COMPLICATIONS Qualifiers: Diabetes mellitus type: type 2 Diabetes mellitus blueprint reproducer insulin use: without senior care use Diabetes mellitus complication status: with hyperglycemia Qualified Code(s): E11.65 - Type 2 diabetes mellitus with hyperglycemia (8) Morbid obesity with BMI of 45.0-49.9, adult Code(s): E66.01 - MORBID (SEVERE) OBESITY DUE TO EXCESS CALORIES; Z68.42 - BODY MASS INDEX (BMI) 45.0-49.9, ADULT (9) T2DM (type 2 diabetes mellitus) Code(s): E11.9 - TYPE 2 DIABETES MELLITUS WITHOUT COMPLICATIONS Assessment/Plan IMP ACUTE ON CHONIC HYPOXEMIC/HYPERCAPNEIC RESPIRATORY FAILURE COPD EXACERBATION AFIB PVD DM HTN PLAN IV STEROIDS same dose O2 INHALED BRONCHODILATORS ABX AC DR DANIELS Problem List - Problems (1) COPD exacerbation Code(s): J44.1 - CHRONIC OBSTRUCTIVE PULMONARY DISEASE W (ACUTE) EXACERBATION (2) Chronic anticoagulation Code(s): Z79.01 - MCC (CURRENT) USE OF ANTICOAGULANTS (3) Acute on chronic respiratory failure with hypoxia and hypercapnia Code(s): J96.21 - ACUTE AND CHRONIC RESPIRATORY FAILURE WITH HYPOXIA; J96.22 - ACUTE AND CHRONIC RESPIRATORY FAILURE WITH HYPERCAPNIA (4) Atrial fibrillation Code(s): I48.91 - UNSPECIFIED ATRIAL FIBRILLATION Qualifiers: Atrial fibrillation type: chronic Qualified Code(s): I48.2 - Chronic atrial fibrillation (5) CHF (congestive heart failure) Code(s): I50.9 - HEART FAILURE, UNSPECIFIED Qualifiers: Qualified Code(s): I50.32 - Chronic diastolic (congestive) heart failure (6) Chronic wound of extremity Code(s): [id number] - (7) Diabetes Code(s): E11.9 - TYPE 2 DIABETES MELLITUS WITHOUT COMPLICATIONS Qualifiers: Diabetes mellitus type: type 2 Diabetes mellitus senior care insulin use: without senior care use Diabetes mellitus complication status: with hyperglycemia Qualified Code(s): E11.65 - Type 2 diabetes mellitus with hyperglycemia (8) Morbid obesity with BMI of 45.0-49.9, adult Code(s): E66.01 - MORBID (SEVERE) OBESITY DUE TO EXCESS CALORIES; Z68.42 - BODY MASS INDEX (BMI) 45.0-49.9, ADULT (9) T2DM (type 2 diabetes mellitus) Code(s): E11.9 - TYPE 2 DIABETES MELLITUS WITHOUT COMPLICATIONS
[2018-04-06] MEDS: GABAPENTIN 100 MG CAPSULE (FP) PO SCH ×2 (11:53→15:55)
[2018-04-06] MEDS: POTASSIUM CHLORIDE TABS 20 MEQ TABLET.ER (FP) PO SCH ×2 (14:11→21:34)
[2018-04-06] MEDS: ARFORMOTEROL TARTRATE 15 MCG/2 ML VIAL NEB SCH ×2 (15:25→20:35)
[2018-04-06] MEDS: VANCOMYCIN 1,000 MG in DEXTROSE 5%-WATER - 250 ML IVPB SCH (16:53)
[2018-04-06] MEDS ORDERED: WARFARIN NA 3 MG TABLET PO SCH (18:00)
[2018-04-06] MEDS ORDERED: INSULIN (NOVOLOG) ASPART 100 UNITS/ML 10ML VIAL ONE (21:20)
[2018-04-07] MEDS ORDERED: PIPERACILLIN/TAZOBACTAM 4.5 GM VIAL IVPB ONE ×2 (01:32→08:38)
[2018-04-07] MEDS ORDERED: DEXTROSE 5%-WATER 100 ML IVPB ONE ×3 (01:32→15:01)
[2018-04-07] MEDS: PIPERACILLIN/TAZOB 4.5 GM 4.5 GM in DEXTROSE 5%-WATER 100 ML IVPB SCH ×2 (01:34→09:32)
[2018-04-07] MEDS: methylPREDNISolone NA SUCC 125 MG/2 ML VIAL IVPUSH SCH ×4 (03:44→21:18)
[2018-04-07 06:36] LABS: HEMATOCRIT 36.6 % (32.4-45.2); HEMOGLOBIN 11.5 GM/dL (10.7-15.3); MCH 24.6 pg (25.7-33.7); MCHC 31.4 g/dl (32.0-36.0); MEAN CELL VOLUME 78.3 fl (80-96); MEAN PLT VOLUME 7.8 fl (7.5-11.1); MONO % 2.8 % (3.8-10.2); NEUT % 90.2 % (42.8-82.8); PLATELET COUNT 255 K/MM3 (134-434); RBC 4.67 M/mm3 (3.60-5.2); RDW 19.1 % (11.6-15.6); WHITE BLOOD COUNT 5.7 K/mm3 (4.0-10.0)
[2018-04-07] MEDS: POTASSIUM CHLORIDE TABS 20 MEQ TABLET.ER (FP) PO SCH ×3 (06:40→21:25)
[2018-04-07] MEDS: FUROSEMIDE 40 MG TABLET (FP) PO SCH ×2 (06:40→13:29)
[2018-04-07] MEDS: INSULIN SLIDING SCALE (NOVOLOG) 1 VIAL SQ SCH ×4 (06:40→21:19)
[2018-04-07] MEDS ORDERED: PT OWN MED DRAWER 7, Y5N ONE ×2 (06:41→08:37)
[2018-04-07] MEDS: LEVOTHYROXINE NA 50 MCG TABLET (FP) PO SCH (06:42)
[2018-04-07 06:53] LABS: INR 2.93 (0.82-1.09); PROTHROMBIN TIME (PATIENT) 33.1 SEC (9.7-13.0)
[2018-04-07 07:05] LABS: ANION GAP 7 (8-16); BLOOD UREA NITROGEN 34 mg/dL (7-18); CALCIUM 8.8 mg/dL (8.5-10.1); CHLORIDE 101 mmol/L (98-107); CO2 37 mmol/L (21-32); CREATININE 0.9 mg/dL (0.55-1.02); GLUCOSE,RANDOM 238 mg/dL (74-106); MAGNESIUM 2.3 mg/dL (1.8-2.4); SODIUM 145 mmol/L (136-145)
[2018-04-07 07:24] LABS: POTASSIUM 2.8 mmol/L (3.5-5.1)
[2018-04-07] MEDS: ARFORMOTEROL TARTRATE 15 MCG/2 ML VIAL NEB SCH ×2 (08:57→19:35)
[2018-04-07] MEDS: LOSARTAN POTASSIUM 25 MG TABLET PO SCH (09:32)
[2018-04-07] MEDS: PANTOPRAZOLE 40 MG TABLET (FP) PO SCH (09:32)
[2018-04-07] MEDS: GLIMEPIRIDE 1 MG TABLET (FP) PO SCH (09:32)
[2018-04-07] MEDS: GABAPENTIN 100 MG CAPSULE (FP) PO SCH (09:32)
[2018-04-07] MEDS: ALLOPURINOL 100 MG TABLET (FP) PO SCH (09:32)
[2018-04-07] MEDS: TIOTROPIUM BROMIDE 18 MCG CAPSULES IH SCH (09:36)
[2018-04-07] MEDS: MOMETASONE FUROATE 220 MCG/IH INHALER IH SCH (09:37)
[2018-04-07] MEDS: NYSTATIN 100,000 UNIT/GM TOPICAL CREAM 15 GM TUBE TP SCH ×2 (09:40→21:25)
--- NOTE | 2018-04-07 10:35 | PN ---
Progress Note (short form) - Note Progress Note: Dr. Garcia to document today. K 2.8: IV Rx ordered. INR 2.8
--- NOTE | 2018-04-07 10:46 | PN ---
Progress Note, Physician History of Present Illness: pulmonary alert,still congested,+dyspneic with min exertion - Current Medication List Current Medications: Active Medications Acetaminophen (Tylenol -) 650 mg PO Q6H PRN PRN Reason: PAIN Last Admin: 04/05/18 18:03 Dose: 650 mg Albuterol Sulfate (Ventolin 0.083% Nebulizer Soln -) 1 amp NEB Q4H PRN PRN Reason: SHORT OF BREATH/WHEEZING Last Admin: 04/04/18 04:23 Dose: 1 amp Allopurinol (Zyloprim -) 100 mg PO DAILY [facility] Last Admin: 04/07/18 09:32 Dose: 100 mg Arformoterol Tartrate (Brovana (Restricted To Pulmonology/Resp) -) 1 amp NEB RBID [facility] Last Admin: 04/07/18 08:57 Dose: 1 amp Diltiazem HCl (Cardizem Cd -) 120 mg PO DAILY [facility] Last Admin: 04/07/18 09:32 Dose: 120 mg Furosemide (Lasix -) 40 mg PO BID@0600,1400 [facility] Last Admin: 04/07/18 06:40 Dose: 40 mg Gabapentin (Neurontin -) 100 mg PO DAILY [facility] Last Admin: 04/07/18 09:32 Dose: 100 mg Glimepiride (Amaryl -) 1 mg PO DAILY@0700 [facility] Last Admin: 04/07/18 09:32 Dose: 1 mg Piperacillin Sod/Tazobactam (Sod 4.5 gm/ Dextrose) 100 mls @ 200 mls/hr IVPB Q8H-IV [facility]; Protocol Last Admin: 04/07/18 09:32 Dose: 200 mls/hr Vancomycin HCl 1,000 mg/ (Dextrose) 250 mls @ 166.667 mls/hr IVPB Q24H [facility]; Protocol Last Admin: 04/06/18 16:53 Dose: 166.667 mls/hr Potassium Chloride (Potassium Chloride 10 Meq Premix Ivpb -) 10 meq in 100 mls @ 100 mls/hr IVPB Q60M [facility] Stop: 04/07/18 12:44 Insulin Aspart (Novolog Vial Sliding Scale -) 1 vial SQ ACHS [facility]; Protocol Last Admin: 04/07/18 06:40 Dose: 4 units Levothyroxine Sodium (Synthroid -) 50 mcg PO AM [facility] Last Admin: 04/07/18 06:42 Dose: 50 mcg Losartan Potassium (Cozaar -) 25 mg PO DAILY [facility] Last Admin: 04/07/18 09:32 Dose: 25 mg Methylprednisolone Sodium Succinate (Solu-Medrol -) 60 mg IVPUSH Q6H-IV [facility] Last Admin: 04/07/18 09:32 Dose: 60 mg Mometasone Furoate (Asmanex 220mcg -) 1 puff IH DAILY [facility] Last Admin: 04/07/18 09:37 Dose: 1 puff Nystatin (Mycostatin Cream -) 1 applic TP BID [facility] Last Admin: 04/07/18 09:40 Dose: 1 applic Pantoprazole Sodium (Protonix -) 40 mg PO DAILY [facility] Last Admin: 04/07/18 09:32 Dose: 40 mg Potassium Chloride (K-Dur -) 20 meq PO TID [facility] Last Admin: 04/07/18 06:40 Dose: 20 meq Tiotropium [place] (Spiriva -) 1 puff IH DAILY [facility] Last Admin: 04/07/18 09:36 Dose: 1 puff Warfarin Sodium (Coumadin -) 2 mg PO DAILY@1800 [facility] - Objective Vital Signs: Vital Signs Temperature 98.4 F 04/07/18 10:00 Pulse Rate 95 H 04/07/18 10:00 Respiratory Rate 20 04/07/18 10:00 Blood Pressure 160/94 04/07/18 10:00 O2 Sat by Pulse Oximetry (%) 98 04/07/18 09:00 Constitutional: Yes: Calm, Obese Eyes: Yes: WNL HENT: Yes: WNL Neck: Yes: WNL Cardiovascular: Yes: Pulse Irregular, S1, S2 Respiratory: Yes: Rhonchi, Wheezes (bilateral wheezes and rhonchi) Gastrointestinal: Yes: Normal Bowel Sounds, Soft Extremities: Yes: WNL Edema: Yes Labs: CBC, BMP 04/07/18 06:00 04/07/18 06:00 INR, PTT INR 2.93 (0.82-1.09) H 04/07/18 06:00 Problem List - Problems (1) COPD exacerbation Code(s): J44.1 - CHRONIC OBSTRUCTIVE PULMONARY DISEASE W (ACUTE) EXACERBATION (2) Chronic anticoagulation Code(s): Z79.01 - AEROSPACE MECHANIC (CURRENT) USE OF ANTICOAGULANTS (3) Acute on chronic respiratory failure with hypoxia and hypercapnia Code(s): J96.21 - ACUTE AND CHRONIC RESPIRATORY FAILURE WITH HYPOXIA; J96.22 - ACUTE AND CHRONIC RESPIRATORY FAILURE WITH HYPERCAPNIA (4) Atrial fibrillation Code(s): I48.91 - UNSPECIFIED ATRIAL FIBRILLATION Qualifiers: Atrial fibrillation type: chronic Qualified Code(s): I48.2 - Chronic atrial fibrillation (5) CHF (congestive heart failure) Code(s): I50.9 - HEART FAILURE, UNSPECIFIED (6) Chronic wound of extremity Code(s): [id number] - (7) Diabetes Code(s): E11.9 - TYPE 2 DIABETES MELLITUS WITHOUT COMPLICATIONS Qualifiers: Diabetes mellitus type: type 2 Diabetes mellitus intermediate insulin use: without bed bug exterminator use Diabetes mellitus complication status: with hyperglycemia Qualified Code(s): E11.65 - Type 2 diabetes mellitus with hyperglycemia (8) Morbid obesity with BMI of 45.0-49.9, adult Code(s): E66.01 - MORBID (SEVERE) OBESITY DUE TO EXCESS CALORIES; Z68.42 - BODY MASS INDEX (BMI) 45.0-49.9, ADULT (9) T2DM (type 2 diabetes mellitus) Code(s): E11.9 - TYPE 2 DIABETES MELLITUS WITHOUT COMPLICATIONS Assessment/Plan IMP ACUTE ON CHONIC HYPOXEMIC/HYPERCAPNEIC RESPIRATORY FAILURE COPD EXACERBATION AFIB PVD DM HTN PLAN IV STEROIDS O2 INHALED BRONCHODILATORS ABX AC REPLROHAN DANIELS Problem List - Problems (1) COPD exacerbation Code(s): J44.1 - CHRONIC OBSTRUCTIVE PULMONARY DISEASE W (ACUTE) EXACERBATION (2) Chronic anticoagulation Code(s): Z79.01 - HALFWAY (CURRENT) USE OF ANTICOAGULANTS (3) Acute on chronic respiratory failure with hypoxia and hypercapnia Code(s): J96.21 - ACUTE AND CHRONIC RESPIRATORY FAILURE WITH HYPOXIA; J96.22 - ACUTE AND CHRONIC RESPIRATORY FAILURE WITH HYPERCAPNIA (4) Atrial fibrillation Code(s): I48.91 - UNSPECIFIED ATRIAL FIBRILLATION Qualifiers: Atrial fibrillation type: chronic Qualified Code(s): I48.2 - Chronic atrial fibrillation (5) CHF (congestive heart failure) Code(s): I50.9 - HEART FAILURE, UNSPECIFIED Qualifiers: Qualified Code(s): I50.32 - Chronic diastolic (congestive) heart failure (6) Chronic wound of extremity Code(s): [id number] - (7) Diabetes Code(s): E11.9 - TYPE 2 DIABETES MELLITUS WITHOUT COMPLICATIONS Qualifiers: Diabetes mellitus type: type 2 Diabetes mellitus bed bug exterminator insulin use: without bed bug exterminator use Diabetes mellitus complication status: with hyperglycemia Qualified Code(s): E11.65 - Type 2 diabetes mellitus with hyperglycemia (8) Morbid obesity with BMI of 45.0-49.9, adult Code(s): E66.01 - MORBID (SEVERE) OBESITY DUE TO EXCESS CALORIES; Z68.42 - BODY MASS INDEX (BMI) 45.0-49.9, ADULT (9) T2DM (type 2 diabetes mellitus) Code(s): E11.9 - TYPE 2 DIABETES MELLITUS WITHOUT COMPLICATIONS
--- NOTE | 2018-04-07 11:44 | PN ---
Progress Note, Physician Chief Complaint: Ms Grove says her breathing is almost back to normal. Denies cp and n/v. - Current Medication List Current Medications: Active Medications Acetaminophen (Tylenol -) 650 mg PO Q6H PRN PRN Reason: PAIN Last Admin: 04/05/18 18:03 Dose: 650 mg Albuterol Sulfate (Ventolin 0.083% Nebulizer Soln -) 1 amp NEB Q4H PRN PRN Reason: SHORT OF BREATH/WHEEZING Last Admin: 04/04/18 04:23 Dose: 1 amp Allopurinol (Zyloprim -) 100 mg PO DAILY [facility] Last Admin: 04/07/18 09:32 Dose: 100 mg Arformoterol Tartrate (Brovana (Restricted To Pulmonology/Resp) -) 1 amp NEB RBID [facility] Last Admin: 04/07/18 08:57 Dose: 1 amp Diltiazem HCl (Cardizem Cd -) 120 mg PO DAILY [facility] Last Admin: 04/07/18 09:32 Dose: 120 mg Furosemide (Lasix -) 40 mg PO BID@0600,1400 [facility] Last Admin: 04/07/18 06:40 Dose: 40 mg Gabapentin (Neurontin -) 100 mg PO DAILY [facility] Last Admin: 04/07/18 09:32 Dose: 100 mg Glimepiride (Amaryl -) 1 mg PO DAILY@0700 [facility] Last Admin: 04/07/18 09:32 Dose: 1 mg Piperacillin Sod/Tazobactam (Sod 4.5 gm/ Dextrose) 100 mls @ 200 mls/hr IVPB Q8H-IV [facility]; Protocol Last Admin: 04/07/18 09:32 Dose: 200 mls/hr Vancomycin HCl 1,000 mg/ (Dextrose) 250 mls @ 166.667 mls/hr IVPB Q24H [facility]; Protocol Last Admin: 04/06/18 16:53 Dose: 166.667 mls/hr Potassium Chloride (Potassium Chloride 10 Meq Premix Ivpb -) 10 meq in 100 mls @ 100 mls/hr IVPB Q60M [facility] Stop: 04/07/18 13:59 Insulin Aspart (Novolog Vial Sliding Scale -) 1 vial SQ ACHS [facility]; Protocol Last Admin: 04/07/18 11:42 Dose: 6 units Levothyroxine Sodium (Synthroid -) 50 mcg PO AM [facility] Last Admin: 04/07/18 06:42 Dose: 50 mcg Losartan Potassium (Cozaar -) 25 mg PO DAILY [facility] Last Admin: 04/07/18 09:32 Dose: 25 mg Methylprednisolone Sodium Succinate (Solu-Medrol -) 60 mg IVPUSH Q6H-IV [facility] Last Admin: 04/07/18 09:32 Dose: 60 mg Mometasone Furoate (Asmanex 220mcg -) 1 puff IH DAILY [facility] Last Admin: 04/07/18 09:37 Dose: 1 puff Nystatin (Mycostatin Cream -) 1 applic TP BID [facility] Last Admin: 04/07/18 09:40 Dose: 1 applic Pantoprazole Sodium (Protonix -) 40 mg PO DAILY [facility] Last Admin: 04/07/18 09:32 Dose: 40 mg Potassium Chloride (K-Dur -) 20 meq PO TID [facility] Last Admin: 04/07/18 06:40 Dose: 20 meq Tiotropium [place] (Spiriva -) 1 puff IH DAILY [facility] Last Admin: 04/07/18 09:36 Dose: 1 puff Warfarin Sodium (Coumadin -) 2 mg PO DAILY@1800 [facility] - Objective Vital Signs: Vital Signs Temperature 36.9 C 04/07/18 10:00 Pulse Rate 95 H 04/07/18 10:00 Respiratory Rate 20 04/07/18 10:00 Blood Pressure 160/94 04/07/18 10:00 O2 Sat by Pulse Oximetry (%) 98 04/07/18 09:00 Constitutional: Yes: No Distress, Calm, Obese Cardiovascular: Yes: Regular Rate and Rhythm. No: Gallop, Murmur, Rub Respiratory: Yes: Regular, On Nasal O2, Rhonchi. No: CTA Bilaterally, Rales, Wheezes Gastrointestinal: Yes: Normal Bowel Sounds, Soft. No: Distention, Tenderness Extremities: Yes: WNL Edema: No Labs: CBC, BMP 04/07/18 06:00 04/07/18 06:00 INR, PTT INR 2.93 (0.82-1.09) H 04/07/18 06:00 Problem List - Problems (1) COPD exacerbation Code(s): J44.1 - CHRONIC OBSTRUCTIVE PULMONARY DISEASE W (ACUTE) EXACERBATION (2) Acute on chronic respiratory failure with hypoxia and hypercapnia Code(s): J96.21 - ACUTE AND CHRONIC RESPIRATORY FAILURE WITH HYPOXIA; J96.22 - ACUTE AND CHRONIC RESPIRATORY FAILURE WITH HYPERCAPNIA (3) Atrial fibrillation Code(s): I48.91 - UNSPECIFIED ATRIAL FIBRILLATION Qualifiers: Atrial fibrillation type: chronic Qualified Code(s): I48.2 - Chronic atrial fibrillation (4) CHF (congestive heart failure) Code(s): I50.9 - HEART FAILURE, UNSPECIFIED (5) Chronic wound of extremity Code(s): [id number] - (6) Diabetes Code(s): E11.9 - TYPE 2 DIABETES MELLITUS WITHOUT COMPLICATIONS Qualifiers: Diabetes mellitus type: type 2 Diabetes mellitus shelter insulin use: without shelter use Diabetes mellitus complication status: with hyperglycemia Qualified Code(s): E11.65 - Type 2 diabetes mellitus with hyperglycemia (7) HTN (hypertension) Code(s): I10 - ESSENTIAL (PRIMARY) HYPERTENSION Qualifiers: Hypertension type: essential hypertension Qualified Code(s): I10 - Essential (primary) hypertension (8) Hypothyroidism Code(s): E03.9 - HYPOTHYROIDISM, UNSPECIFIED (9) Morbid obesity Code(s): E66.01 - MORBID (SEVERE) OBESITY DUE TO EXCESS CALORIES Assessment/Plan (1) COPD exacerbation Assessment/Plan: -patient feeling much improved today -states close to baseline -still with significant ronchi, ? how much is chronic -continue current management -possible de-escalation of solumedrol in next 24-48 hours Code(s): J44.1 - CHRONIC OBSTRUCTIVE PULMONARY DISEASE W (ACUTE) EXACERBATION (2) Acute on chronic respiratory failure with hypoxia and hypercapnia Assessment/Plan: -much improved -sitting up without oxygen and comfortable -at baseline needs it on exertion Code(s): J96.21 - ACUTE AND CHRONIC RESPIRATORY FAILURE WITH HYPOXIA; J96.22 - ACUTE AND CHRONIC RESPIRATORY FAILURE WITH HYPERCAPNIA (3) Atrial fibrillation Assessment/Plan: -continue diltiazem and digoxin -supratherapeutic on coumadin -coumadin held currently Code(s): I48.91 - UNSPECIFIED ATRIAL FIBRILLATION Qualifiers: Atrial fibrillation type: chronic Qualified Code(s): I48.2 - Chronic atrial fibrillation (4) CHF (congestive heart failure) Assessment/Plan: -does not appear in exacerbation -appreciate cardiology assistance -continue lasix 40mg bid Code(s): I50.9 - HEART FAILURE, UNSPECIFIED Qualifiers: Qualified Code(s): I50.32 - Chronic diastolic (congestive) heart failure (5) Chronic wound of extremity Assessment/Plan: -continue current antibiotics -ID following, defer to their assessment for change or cessation Code(s): [id number] - (6) Diabetes Assessment/Plan: -continue SSI -will be elevated secondary to steroids Code(s): E11.9 - TYPE 2 DIABETES MELLITUS WITHOUT COMPLICATIONS Qualifiers: Diabetes mellitus type: type 2 Diabetes mellitus shelter insulin use: without shelter use Diabetes mellitus complication status: with hyperglycemia Qualified Code(s): E11.65 - Type 2 diabetes mellitus with hyperglycemia (7) HTN (hypertension) Assessment/Plan: -well controlled -continue current management Code(s): I10 - ESSENTIAL (PRIMARY) HYPERTENSION Qualifiers: Hypertension type: essential hypertension Qualified Code(s): I10 - Essential (primary) hypertension (8) Hypothyroidism Assessment/Plan: -continue levothyroxine Code(s): E03.9 - HYPOTHYROIDISM, UNSPECIFIED (9) Morbid obesity Assessment/Plan: -outpatient weight loss program Code(s): E66.01 - MORBID (SEVERE) OBESITY DUE TO EXCESS CALORIES (10) Hypokalemia -replaced with IV potassium -continue oral supplementation
--- NOTE | 2018-04-07 11:55 | PN ---
Progress Note, Physician Chief Complaint: Events noted Dyspnea intermittently History of Present Illness: Patient was seen and examined. Awake and alert. Chart was reviewed Denies chest pain or palpitations As outlined - Current Medication List Current Medications: Active Medications Acetaminophen (Tylenol -) 650 mg PO Q6H PRN PRN Reason: PAIN Last Admin: 04/05/18 18:03 Dose: 650 mg Albuterol Sulfate (Ventolin 0.083% Nebulizer Soln -) 1 amp NEB Q4H PRN PRN Reason: SHORT OF BREATH/WHEEZING Last Admin: 04/04/18 04:23 Dose: 1 amp Allopurinol (Zyloprim -) 100 mg PO DAILY [facility] Last Admin: 04/07/18 09:32 Dose: 100 mg Arformoterol Tartrate (Brovana (Restricted To Pulmonology/Resp) -) 1 amp NEB RBID [facility] Last Admin: 04/07/18 08:57 Dose: 1 amp Diltiazem HCl (Cardizem Cd -) 120 mg PO DAILY [facility] Last Admin: 04/07/18 09:32 Dose: 120 mg Furosemide (Lasix -) 40 mg PO BID@0600,1400 [facility] Last Admin: 04/07/18 06:40 Dose: 40 mg Gabapentin (Neurontin -) 100 mg PO DAILY [facility] Last Admin: 04/07/18 09:32 Dose: 100 mg Glimepiride (Amaryl -) 1 mg PO DAILY@0700 [facility] Last Admin: 04/07/18 09:32 Dose: 1 mg Piperacillin Sod/Tazobactam (Sod 4.5 gm/ Dextrose) 100 mls @ 200 mls/hr IVPB Q8H-IV [facility]; Protocol Last Admin: 04/07/18 09:32 Dose: 200 mls/hr Vancomycin HCl 1,000 mg/ (Dextrose) 250 mls @ 166.667 mls/hr IVPB Q24H [facility]; Protocol Last Admin: 04/06/18 16:53 Dose: 166.667 mls/hr Potassium Chloride (Potassium Chloride 10 Meq Premix Ivpb -) 10 meq in 100 mls @ 100 mls/hr IVPB Q60M [facility] Stop: 04/07/18 13:59 Insulin Aspart (Novolog Vial Sliding Scale -) 1 vial SQ ACHS [facility]; Protocol Last Admin: 04/07/18 11:42 Dose: 6 units Levothyroxine Sodium (Synthroid -) 50 mcg PO AM [facility] Last Admin: 04/07/18 06:42 Dose: 50 mcg Losartan Potassium (Cozaar -) 25 mg PO DAILY [facility] Last Admin: 04/07/18 09:32 Dose: 25 mg Methylprednisolone Sodium Succinate (Solu-Medrol -) 60 mg IVPUSH Q6H-IV [facility] Last Admin: 04/07/18 09:32 Dose: 60 mg Mometasone Furoate (Asmanex 220mcg -) 1 puff IH DAILY [facility] Last Admin: 04/07/18 09:37 Dose: 1 puff Nystatin (Mycostatin Cream -) 1 applic TP BID [facility] Last Admin: 04/07/18 09:40 Dose: 1 applic Pantoprazole Sodium (Protonix -) 40 mg PO DAILY [facility] Last Admin: 04/07/18 09:32 Dose: 40 mg Potassium Chloride (K-Dur -) 20 meq PO TID [facility] Last Admin: 04/07/18 06:40 Dose: 20 meq Tiotropium [place] (Spiriva -) 1 puff IH DAILY [facility] Last Admin: 04/07/18 09:36 Dose: 1 puff Warfarin Sodium (Coumadin -) 2 mg PO DAILY@1800 [facility] - Objective Vital Signs: Vital Signs Temperature 98.4 F 04/07/18 10:00 Pulse Rate 95 H 04/07/18 10:00 Respiratory Rate 20 04/07/18 10:00 Blood Pressure 160/94 04/07/18 10:00 O2 Sat by Pulse Oximetry (%) 98 04/07/18 09:00 Eyes: Yes: PERRL HENT: Yes: Atraumatic Neck: Yes: Supple Cardiovascular: Yes: Pulse Irregular, S1, S2 Respiratory: Yes: Diminished Gastrointestinal: Yes: Normal Bowel Sounds, Soft, Abdomen, Obese. No: Tenderness Edema: Yes Labs: CBC, BMP 04/07/18 06:00 04/07/18 06:00 INR, PTT INR 2.93 (0.82-1.09) H 04/07/18 06:00 Problem List - Problems (1) COPD exacerbation Code(s): J44.1 - CHRONIC OBSTRUCTIVE PULMONARY DISEASE W (ACUTE) EXACERBATION (2) Acute on chronic diastolic (congestive) heart failure Code(s): I50.33 - ACUTE ON CHRONIC DIASTOLIC (CONGESTIVE) HEART FAILURE (3) Acute on chronic respiratory failure with hypoxia and hypercapnia Code(s): J96.21 - ACUTE AND CHRONIC RESPIRATORY FAILURE WITH HYPOXIA; J96.22 - ACUTE AND CHRONIC RESPIRATORY FAILURE WITH HYPERCAPNIA (4) Atrial fibrillation Code(s): I48.91 - UNSPECIFIED ATRIAL FIBRILLATION Qualifiers: Atrial fibrillation type: chronic Qualified Code(s): I48.2 - Chronic atrial fibrillation (5) COPD with acute exacerbation Code(s): J44.1 - CHRONIC OBSTRUCTIVE PULMONARY DISEASE W (ACUTE) EXACERBATION (6) Chronic venous stasis dermatitis of both lower extremities Code(s): I87.2 - VENOUS INSUFFICIENCY (CHRONIC) (PERIPHERAL) (7) Clostridium difficile colitis Code(s): A04.72 - ENTEROCOLITIS D/T CLOSTRIDIUM DIFFICILE, NOT SPCF RECUR (8) HTN (hypertension) Code(s): I10 - ESSENTIAL (PRIMARY) HYPERTENSION Qualifiers: Hypertension type: essential hypertension Qualified Code(s): I10 - Essential (primary) hypertension (9) Hypokalemia Code(s): E87.6 - HYPOKALEMIA (10) Osteomyelitis Code(s): M86.9 - OSTEOMYELITIS, UNSPECIFIED Qualifiers: Osteomyelitis type: unspecified type Osteomyelitis location: foot Laterality: right Qualified Code(s): M86.9 - Osteomyelitis, unspecified (11) T2DM (type 2 diabetes mellitus) Code(s): E11.9 - TYPE 2 DIABETES MELLITUS WITHOUT COMPLICATIONS Assessment/Plan 1. Acute on chronic hypoxemic/hypercapenic respiratory failure related to exacerbation of reactive airway disease/COPD (O2 and steroid-dependent) 2. Diastolic dysfunction 3. CAD angina pectoris, stable 4. Permanent atrial fibrillation [id number] score of 7 on Coumadin 5. HTN/hypertensive cardiovascular disease 6. DM, hypoglycemia 7. Hypothyroidism 8. CKD 9. 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 History of DVT 11. Chronic venous stasis 12. History of C. diff Ag + 13. Hypokalemia PLAN: 1. Continue Cardizem CD, off Digoxin 2. Continue Lasix with close monitoring of renal function and electrolytes. K supplementation 3. Continue Cozaar with close monitoring of renal function 4. A/C with Coumadin as per INR 5. Bronchodilator, IV steroid with GI protection, empiric antibiotic course and O2 6. CT chest noted. Pulmonary input noted Matt Ferraro MD
[2018-04-07] MEDS: KCL 10 MEQ IVPB 10 MEQ/100 ML INFUS.BAG IVPB SCH ×2 (12:55→13:23)
[2018-04-07] MEDS ORDERED: POTASSIUM CHLORIDE TABS 20 MEQ TABLET.ER (FP) PO ONE (13:22)
--- NOTE | 2018-04-07 13:24 | PN ---
Progress Note (short form) - Note Progress Note: chart reviewed continues to cough no fevers Vital Signs Period Temp Pulse Resp BP Sys/Luke Pulse Ox Last 24 Hr 97.5 F-98.5 F 79-104 18-24 111-160/56-94 94-98 cor-rrr lungs bilteral rhonchi abd nontender, +pannus ext venous stasis, minimal erythema CBC, BMP 04/07/18 06:00 04/07/18 06:00 Microbiology 04/02/18 18:30 Blood - Peripheral Venous Blood Culture - Preliminary NO GROWTH OBTAINED AFTER 96 HOURS, INCUBATION TO CONTINUE FOR 1 DAYS. 04/02/18 18:30 Blood - Peripheral Venous Blood Culture - Preliminary NO GROWTH OBTAINED AFTER 96 HOURS, INCUBATION TO CONTINUE FOR 1 DAYS. 04/03/18 06:15 Cellulitis Gram Stain - Final 04/03/18 06:15 Cellulitis Wound Culture - Preliminary Serratia Marcescens Providencia Rettgeri Klebsiella Oxytoca Mr S Aureus Group D Strep Or Entero Coccus 04/04/18 13:00 Rectal Swab VRE Culture - Final Vanco Resistant Enterococcus 04/03/18 17:30 Nares - Mrsa Screen - Right MRSA Screen - Final 04/03/18 17:30 Nares - Mrsa Screen - Left MRSA Screen - Final Mr S Aureus 04/02/18 18:00 Urine - Urine Clean Catch Urine Culture - Final Contaminated: Please Repeat 04/03/18 06:15 Nasopharyngeal Swab Influenza Types A,B Antigen - Final 04/03/18 06:15 Nasopharyngeal Swab - Final a/p cellulitis resolving copd exacerbation obesity MRSA contact isolation hypokalemia replace potassium switch to vanco/rocephin- cellulitis improved management of copd per pulmonary check vancomycin trough
[2018-04-07] MEDS: CEFTRIAXONE 2 GM in DEXTROSE 5%-WATER 100 ML IVPB SCH (15:10)
[2018-04-07] MEDS: VANCOMYCIN 1,000 MG in DEXTROSE 5%-WATER - 250 ML IVPB SCH (19:13)
[2018-04-07] MEDS: WARFARIN NA 2 MG TABLET (UD) PO SCH (19:14)
[2018-04-08] MEDS: ACETAMINOPHEN 325 MG TABLET (FP) PO PRN (00:23)
[2018-04-08] MEDS: methylPREDNISolone NA SUCC 125 MG/2 ML VIAL IVPUSH SCH ×3 (02:10→17:02)
[2018-04-08] MEDS: POTASSIUM CHLORIDE TABS 20 MEQ TABLET.ER (FP) PO SCH ×5 (06:08→23:47)
[2018-04-08] MEDS: LEVOTHYROXINE NA 50 MCG TABLET (FP) PO SCH (06:08)
[2018-04-08] MEDS: FUROSEMIDE 40 MG TABLET (FP) PO SCH ×2 (06:08→13:10)
[2018-04-08] MEDS: INSULIN SLIDING SCALE (NOVOLOG) 1 VIAL SQ SCH ×4 (06:12→21:53)
[2018-04-08] MEDS: GLIMEPIRIDE 1 MG TABLET (FP) PO SCH (06:13)
[2018-04-08 06:36] LABS: BASO % 0.2 % (0-2.0); HEMATOCRIT 37.2 % (32.4-45.2); HEMOGLOBIN 11.8 GM/dL (10.7-15.3); LYMPH % 5.7 % (8-40); MCH 24.8 pg (25.7-33.7); MCHC 31.7 g/dl (32.0-36.0); MEAN CELL VOLUME 78.2 fl (80-96); MONO % 3.4 % (3.8-10.2); NEUT % 90.7 % (42.8-82.8); PLATELET COUNT 245 K/MM3 (134-434); RBC 4.76 M/mm3 (3.60-5.2); RDW 19.4 % (11.6-15.6); WHITE BLOOD COUNT 5.5 K/mm3 (4.0-10.0)
[2018-04-08 06:48] LABS: INR 2.87 (0.82-1.09); PROTHROMBIN TIME (PATIENT) 32.4 SEC (9.7-13.0)
[2018-04-08 07:01] LABS: ANION GAP 9 (8-16); BLOOD UREA NITROGEN 34 mg/dL (7-18); CALCIUM 8.6 mg/dL (8.5-10.1); CHLORIDE 101 mmol/L (98-107); CO2 38 mmol/L (21-32); CREATININE 0.8 mg/dL (0.55-1.02); GLUCOSE,RANDOM 241 mg/dL (74-106); MAGNESIUM 2.2 mg/dL (1.8-2.4); PHOSPHOROUS 3.3 mg/dL (2.5-4.9); SODIUM 148 mmol/L (136-145)
[2018-04-08] MEDS: ARFORMOTEROL TARTRATE 15 MCG/2 ML VIAL NEB SCH ×2 (08:10→20:49)
--- NOTE | 2018-04-08 08:28 | PN ---
Progress Note (short form) - Note Progress Note: Dr. Garcia to document today. Less wheezing on exam and wounds right leg are now dry with no noticeable odor and markedly less edema. Probable better with SNF post hospital but won't go. Physical therapy has been ordered. K still low at 3; can't tolerate IV KCL; will increase KCL 20 meq to QID.
[2018-04-08] MEDS ORDERED: DEXTROSE 5%-WATER 100 ML IVPB ONE (08:55)
[2018-04-08] MEDS: LOSARTAN POTASSIUM 25 MG TABLET PO SCH (09:26)
[2018-04-08] MEDS: DIGOXIN 0.125 MG TABLET (FP) PO SCH (09:26)
[2018-04-08] MEDS: GABAPENTIN 100 MG CAPSULE (FP) PO SCH (09:26)
[2018-04-08] MEDS: ALLOPURINOL 100 MG TABLET (FP) PO SCH (09:26)
[2018-04-08] MEDS: TIOTROPIUM BROMIDE 18 MCG CAPSULES IH SCH (09:26)
[2018-04-08] MEDS: PANTOPRAZOLE 40 MG TABLET (FP) PO SCH (09:26)
[2018-04-08] MEDS: CEFTRIAXONE 2 GM in DEXTROSE 5%-WATER 100 ML IVPB SCH (09:27)
[2018-04-08] MEDS: MOMETASONE FUROATE 220 MCG/IH INHALER IH SCH (09:34)
--- NOTE | 2018-04-08 10:47 | PN ---
Progress Note, Physician History of Present Illness: Dyspnea, wheezes, productive cough persists. - Current Medication List Current Medications: Active Medications Acetaminophen (Tylenol -) 650 mg PO Q6H PRN PRN Reason: PAIN Last Admin: 04/08/18 00:23 Dose: 650 mg Albuterol Sulfate (Ventolin 0.083% Nebulizer Soln -) 1 amp NEB Q4H PRN PRN Reason: SHORT OF BREATH/WHEEZING Last Admin: 04/04/18 04:23 Dose: 1 amp Allopurinol (Zyloprim -) 100 mg PO DAILY [facility] Last Admin: 04/08/18 09:26 Dose: 100 mg Arformoterol Tartrate (Brovana (Restricted To Pulmonology/Resp) -) 1 amp NEB RBID [facility] Last Admin: 04/08/18 08:10 Dose: 1 amp Digoxin (Lanoxin -) 0.125 mg PO DAILY [facility] Last Admin: 04/08/18 09:26 Dose: 0.125 mg Diltiazem HCl (Cardizem Cd -) 120 mg PO DAILY [facility] Last Admin: 04/08/18 09:26 Dose: 120 mg Furosemide (Lasix -) 40 mg PO BID@0600,1400 [facility] Last Admin: 04/08/18 06:08 Dose: 40 mg Gabapentin (Neurontin -) 100 mg PO DAILY [facility] Last Admin: 04/08/18 09:26 Dose: 100 mg Glimepiride (Amaryl -) 1 mg PO DAILY@0700 [facility] Last Admin: 04/08/18 06:13 Dose: 1 mg Vancomycin HCl 1,000 mg/ (Dextrose) 250 mls @ 166.667 mls/hr IVPB Q24H [facility]; Protocol Last Admin: 04/07/18 19:13 Dose: 166.667 mls/hr Ceftriaxone Sodium 2 gm/ (Dextrose) 100 mls @ 200 mls/hr IVPB DAILY [facility]; Protocol Last Admin: 04/08/18 09:27 Dose: 200 mls/hr Insulin Aspart (Novolog Vial Sliding Scale -) 1 vial SQ ACHS [facility]; Protocol Last Admin: 04/08/18 06:12 Dose: 6 units Levothyroxine Sodium (Synthroid -) 50 mcg PO AM [facility] Last Admin: 04/08/18 06:08 Dose: 50 mcg Losartan Potassium (Cozaar -) 25 mg PO DAILY [facility] Last Admin: 04/08/18 09:26 Dose: 25 mg Methylprednisolone Sodium Succinate (Solu-Medrol -) 60 mg IVPUSH Q6H-IV [facility] Last Admin: 04/08/18 09:27 Dose: 60 mg Mometasone Furoate (Asmanex 220mcg -) 1 puff IH DAILY [facility] Last Admin: 04/08/18 09:34 Dose: 1 puff Nystatin (Mycostatin Cream -) 1 applic TP BID [facility] Last Admin: 04/07/18 21:25 Dose: 1 applic Pantoprazole Sodium (Protonix -) 40 mg PO DAILY [facility] Last Admin: 04/08/18 09:26 Dose: 40 mg Potassium Chloride (K-Dur -) 20 meq PO Q6HPO [facility] Last Admin: 04/08/18 09:33 Dose: 20 meq Tiotropium [place] (Spiriva -) 1 puff IH DAILY [facility] Last Admin: 04/08/18 09:26 Dose: 1 puff Warfarin Sodium (Coumadin -) 2 mg PO DAILY@1800 [facility] Last Admin: 04/07/18 19:14 Dose: 2 mg - Objective Vital Signs: Vital Signs Temperature 98 F 04/08/18 05:14 Pulse Rate 99 H 04/08/18 09:26 Respiratory Rate 18 04/08/18 05:14 Blood Pressure 116/67 04/08/18 05:14 O2 Sat by Pulse Oximetry (%) 97 04/08/18 08:08 Constitutional: Yes: No Distress, Calm Neck: Yes: Supple Cardiovascular: Yes: Tachycardia, Pulse Irregular Respiratory: Yes: Regular, Diminished, On Nasal O2 Gastrointestinal: Yes: Normal Bowel Sounds, Soft, Abdomen, Obese Edema: Yes Integumentary: Yes: Erythema, Venous Stasis Changes Labs: CBC, BMP 04/08/18 06:00 04/08/18 06:00 INR, PTT INR 2.87 (0.82-1.09) H 04/08/18 06:00 - ....Imaging Cat Scan: Report Reviewed (Suspect right middle lobe mucous plugging) Problem List - Problems (1) Chronic anticoagulation Code(s): Z79.01 - GROUP HOME (CURRENT) USE OF ANTICOAGULANTS (2) COPD exacerbation Code(s): J44.1 - CHRONIC OBSTRUCTIVE PULMONARY DISEASE W (ACUTE) EXACERBATION (3) Atrial fibrillation Code(s): I48.91 - UNSPECIFIED ATRIAL FIBRILLATION Qualifiers: Atrial fibrillation type: chronic Qualified Code(s): I48.2 - Chronic atrial fibrillation (4) Chronic bronchitis Code(s): J42 - UNSPECIFIED CHRONIC BRONCHITIS Qualifiers: Chronic bronchitis type: unspecified Qualified Code(s): J42 - Unspecified chronic bronchitis (5) Chronic venous stasis dermatitis of both lower extremities Code(s): I87.2 - VENOUS INSUFFICIENCY (CHRONIC) (PERIPHERAL) (6) Diastolic dysfunction without heart failure Code(s): I51.9 - HEART DISEASE, UNSPECIFIED (7) HTN (hypertension) Code(s): I10 - ESSENTIAL (PRIMARY) HYPERTENSION Qualifiers: Hypertension type: essential hypertension Qualified Code(s): I10 - Essential (primary) hypertension (8) Hypothyroidism Code(s): E03.9 - HYPOTHYROIDISM, UNSPECIFIED (9) Morbid obesity Code(s): E66.01 - MORBID (SEVERE) OBESITY DUE TO EXCESS CALORIES Assessment/Plan 1. Acute on chronic hypoxemic/hypercapenic respiratory failure related to exacerbation of reactive airway disease/COPD (O2 and steroid-dependent) 2. Diastolic dysfunction 3. CAD angina pectoris, stable 4. Permanent atrial fibrillation [id number] score of 7 on Coumadin with therapeutic INR 5. HTN/hypertensive cardiovascular disease 6. DM, hypoglycemia 7. Hypothyroidism 8. CKD 9. 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 History of DVT 11. Chronic venous stasis with resolving cellulitis 12. History of C. diff Ag + 13. Hypokalemia PLAN: 1. Continue Cardizem CD 120 qd, Digoxin 0.125 qd resumed 2. Continue Lasix 40 bid with close monitoring of renal function and electrolytes. K supplementation 3. Continue Cozaar 25 qd with close monitoring of renal function 4. A/C with Coumadin as per INR 5. Bronchodilator, IV steroid with GI protection, empiric antibiotic course and O2 6. CT chest noted. Pulmonary input noted
--- NOTE | 2018-04-08 10:59 | PN ---
Progress Note, Physician History of Present Illness: pulmonary alert,sitting up in bed,less dyspneic,less congested - Current Medication List Current Medications: Active Medications Acetaminophen (Tylenol -) 650 mg PO Q6H PRN PRN Reason: PAIN Last Admin: 04/08/18 00:23 Dose: 650 mg Albuterol Sulfate (Ventolin 0.083% Nebulizer Soln -) 1 amp NEB Q4H PRN PRN Reason: SHORT OF BREATH/WHEEZING Last Admin: 04/04/18 04:23 Dose: 1 amp Allopurinol (Zyloprim -) 100 mg PO DAILY [facility] Last Admin: 04/08/18 09:26 Dose: 100 mg Arformoterol Tartrate (Brovana (Restricted To Pulmonology/Resp) -) 1 amp NEB RBID [facility] Last Admin: 04/08/18 08:10 Dose: 1 amp Digoxin (Lanoxin -) 0.125 mg PO DAILY [facility] Last Admin: 04/08/18 09:26 Dose: 0.125 mg Diltiazem HCl (Cardizem Cd -) 120 mg PO DAILY [facility] Last Admin: 04/08/18 09:26 Dose: 120 mg Furosemide (Lasix -) 40 mg PO BID@0600,1400 [facility] Last Admin: 04/08/18 06:08 Dose: 40 mg Gabapentin (Neurontin -) 100 mg PO DAILY [facility] Last Admin: 04/08/18 09:26 Dose: 100 mg Glimepiride (Amaryl -) 1 mg PO DAILY@0700 [facility] Last Admin: 04/08/18 06:13 Dose: 1 mg Vancomycin HCl 1,000 mg/ (Dextrose) 250 mls @ 166.667 mls/hr IVPB Q24H [facility]; Protocol Last Admin: 04/07/18 19:13 Dose: 166.667 mls/hr Ceftriaxone Sodium 2 gm/ (Dextrose) 100 mls @ 200 mls/hr IVPB DAILY [facility]; Protocol Last Admin: 04/08/18 09:27 Dose: 200 mls/hr Insulin Aspart (Novolog Vial Sliding Scale -) 1 vial SQ ACHS [facility]; Protocol Last Admin: 04/08/18 06:12 Dose: 6 units Levothyroxine Sodium (Synthroid -) 50 mcg PO AM [facility] Last Admin: 04/08/18 06:08 Dose: 50 mcg Losartan Potassium (Cozaar -) 25 mg PO DAILY [facility] Last Admin: 04/08/18 09:26 Dose: 25 mg Methylprednisolone Sodium Succinate (Solu-Medrol -) 60 mg IVPUSH Q6H-IV [facility] Last Admin: 04/08/18 09:27 Dose: 60 mg Mometasone Furoate (Asmanex 220mcg -) 1 puff IH DAILY [facility] Last Admin: 04/08/18 09:34 Dose: 1 puff Nystatin (Mycostatin Cream -) 1 applic TP BID [facility] Last Admin: 04/07/18 21:25 Dose: 1 applic Pantoprazole Sodium (Protonix -) 40 mg PO DAILY [facility] Last Admin: 04/08/18 09:26 Dose: 40 mg Potassium Chloride (K-Dur -) 20 meq PO Q6HPO [facility] Last Admin: 04/08/18 09:33 Dose: 20 meq Tiotropium [place] (Spiriva -) 1 puff IH DAILY [facility] Last Admin: 04/08/18 09:26 Dose: 1 puff Warfarin Sodium (Coumadin -) 2 mg PO DAILY@1800 [facility] Last Admin: 04/07/18 19:14 Dose: 2 mg - Objective Vital Signs: Vital Signs Temperature 98 F 04/08/18 05:14 Pulse Rate 99 H 04/08/18 09:26 Respiratory Rate 18 04/08/18 05:14 Blood Pressure 116/67 04/08/18 05:14 O2 Sat by Pulse Oximetry (%) 97 04/08/18 08:08 Constitutional: Yes: Well Nourished, Calm, Obese Eyes: Yes: WNL HENT: Yes: WNL Cardiovascular: Yes: Pulse Irregular, S1, S2 Respiratory: Yes: Rhonchi, Wheezes (bilateral wheezes and rhonchi) Gastrointestinal: Yes: Normal Bowel Sounds, Soft Extremities: Yes: WNL Edema: Yes Labs: CBC, BMP 04/08/18 06:00 04/08/18 06:00 INR, PTT INR 2.87 (0.82-1.09) H 04/08/18 06:00 Problem List - Problems (1) COPD exacerbation Code(s): J44.1 - CHRONIC OBSTRUCTIVE PULMONARY DISEASE W (ACUTE) EXACERBATION (2) Chronic anticoagulation Code(s): Z79.01 - [employer] (CURRENT) USE OF ANTICOAGULANTS (3) Acute on chronic respiratory failure with hypoxia and hypercapnia Code(s): J96.21 - ACUTE AND CHRONIC RESPIRATORY FAILURE WITH HYPOXIA; J96.22 - ACUTE AND CHRONIC RESPIRATORY FAILURE WITH HYPERCAPNIA (4) Atrial fibrillation Code(s): I48.91 - UNSPECIFIED ATRIAL FIBRILLATION Qualifiers: Atrial fibrillation type: chronic Qualified Code(s): I48.2 - Chronic atrial fibrillation (5) CHF (congestive heart failure) Code(s): I50.9 - HEART FAILURE, UNSPECIFIED (6) Chronic wound of extremity Code(s): [id number] - (7) Diabetes Code(s): E11.9 - TYPE 2 DIABETES MELLITUS WITHOUT COMPLICATIONS Qualifiers: Diabetes mellitus type: type 2 Diabetes mellitus correction insulin use: without correction use Diabetes mellitus complication status: with hyperglycemia Qualified Code(s): E11.65 - Type 2 diabetes mellitus with hyperglycemia (8) Morbid obesity with BMI of 45.0-49.9, adult Code(s): E66.01 - MORBID (SEVERE) OBESITY DUE TO EXCESS CALORIES; Z68.42 - BODY MASS INDEX (BMI) 45.0-49.9, ADULT (9) T2DM (type 2 diabetes mellitus) Code(s): E11.9 - TYPE 2 DIABETES MELLITUS WITHOUT COMPLICATIONS Assessment/Plan IMP ACUTE ON CHONIC HYPOXEMIC/HYPERCAPNEIC RESPIRATORY FAILURE COPD EXACERBATION AFIB PVD DM HTN PLAN STEROID TAPER O2 INHALED BRONCHODILATORS ABX AC REPLROHAN DANIELS Problem List - Problems (1) COPD exacerbation Code(s): J44.1 - CHRONIC OBSTRUCTIVE PULMONARY DISEASE W (ACUTE) EXACERBATION (2) Chronic anticoagulation Code(s): Z79.01 - [employer] (CURRENT) USE OF ANTICOAGULANTS (3) Acute on chronic respiratory failure with hypoxia and hypercapnia Code(s): J96.21 - ACUTE AND CHRONIC RESPIRATORY FAILURE WITH HYPOXIA; J96.22 - ACUTE AND CHRONIC RESPIRATORY FAILURE WITH HYPERCAPNIA (4) Atrial fibrillation Code(s): I48.91 - UNSPECIFIED ATRIAL FIBRILLATION Qualifiers: Atrial fibrillation type: chronic Qualified Code(s): I48.2 - Chronic atrial fibrillation (5) CHF (congestive heart failure) Code(s): I50.9 - HEART FAILURE, UNSPECIFIED Qualifiers: Qualified Code(s): I50.32 - Chronic diastolic (congestive) heart failure (6) Chronic wound of extremity Code(s): [id number] - (7) Diabetes Code(s): E11.9 - TYPE 2 DIABETES MELLITUS WITHOUT COMPLICATIONS Qualifiers: Diabetes mellitus type: type 2 Diabetes mellitus terminal system operator insulin use: without correction use Diabetes mellitus complication status: with hyperglycemia Qualified Code(s): E11.65 - Type 2 diabetes mellitus with hyperglycemia (8) Morbid obesity with BMI of 45.0-49.9, adult Code(s): E66.01 - MORBID (SEVERE) OBESITY DUE TO EXCESS CALORIES; Z68.42 - BODY MASS INDEX (BMI) 45.0-49.9, ADULT (9) T2DM (type 2 diabetes mellitus) Code(s): E11.9 - TYPE 2 DIABETES MELLITUS WITHOUT COMPLICATIONS
[2018-04-08] MEDS: NYSTATIN 100,000 UNIT/GM TOPICAL CREAM 15 GM TUBE TP SCH ×2 (11:00→21:53)
--- NOTE | 2018-04-08 12:02 | PN ---
Progress Note, Physician Chief Complaint: Ms Grove says she is improving and almost at baseline. Denies cp and n/v - Current Medication List Current Medications: Active Medications Acetaminophen (Tylenol -) 650 mg PO Q6H PRN PRN Reason: PAIN Last Admin: 04/08/18 00:23 Dose: 650 mg Albuterol Sulfate (Ventolin 0.083% Nebulizer Soln -) 1 amp NEB Q4H PRN PRN Reason: SHORT OF BREATH/WHEEZING Last Admin: 04/04/18 04:23 Dose: 1 amp Allopurinol (Zyloprim -) 100 mg PO DAILY [facility] Last Admin: 04/08/18 09:26 Dose: 100 mg Arformoterol Tartrate (Brovana (Restricted To Pulmonology/Resp) -) 1 amp NEB RBID [facility] Last Admin: 04/08/18 08:10 Dose: 1 amp Digoxin (Lanoxin -) 0.125 mg PO DAILY [facility] Last Admin: 04/08/18 09:26 Dose: 0.125 mg Diltiazem HCl (Cardizem Cd -) 120 mg PO DAILY [facility] Last Admin: 04/08/18 09:26 Dose: 120 mg Furosemide (Lasix -) 40 mg PO BID@0600,1400 [facility] Last Admin: 04/08/18 06:08 Dose: 40 mg Gabapentin (Neurontin -) 100 mg PO DAILY [facility] Last Admin: 04/08/18 09:26 Dose: 100 mg Glimepiride (Amaryl -) 1 mg PO DAILY@0700 [facility] Last Admin: 04/08/18 06:13 Dose: 1 mg Vancomycin HCl 1,000 mg/ (Dextrose) 250 mls @ 166.667 mls/hr IVPB Q24H [facility]; Protocol Last Admin: 04/07/18 19:13 Dose: 166.667 mls/hr Ceftriaxone Sodium 2 gm/ (Dextrose) 100 mls @ 200 mls/hr IVPB DAILY [facility]; Protocol Last Admin: 04/08/18 09:27 Dose: 200 mls/hr Insulin Aspart (Novolog Vial Sliding Scale -) 1 vial SQ ACHS [facility]; Protocol Last Admin: 04/08/18 06:12 Dose: 6 units Levothyroxine Sodium (Synthroid -) 50 mcg PO AM [facility] Last Admin: 04/08/18 06:08 Dose: 50 mcg Losartan Potassium (Cozaar -) 25 mg PO DAILY [facility] Last Admin: 04/08/18 09:26 Dose: 25 mg Methylprednisolone Sodium Succinate (Solu-Medrol -) 60 mg IVPUSH Q8H-IV [facility] Mometasone Furoate (Asmanex 220mcg -) 1 puff IH DAILY [facility] Last Admin: 04/08/18 09:34 Dose: 1 puff Nystatin (Mycostatin Cream -) 1 applic TP BID [facility] Last Admin: 04/07/18 21:25 Dose: 1 applic Pantoprazole Sodium (Protonix -) 40 mg PO DAILY [facility] Last Admin: 04/08/18 09:26 Dose: 40 mg Potassium Chloride (K-Dur -) 20 meq PO Q6HPO [facility] Last Admin: 04/08/18 09:33 Dose: 20 meq Tiotropium [place] (Spiriva -) 1 puff IH DAILY [facility] Last Admin: 04/08/18 09:26 Dose: 1 puff Warfarin Sodium (Coumadin -) 2 mg PO DAILY@1800 [facility] Last Admin: 04/07/18 19:14 Dose: 2 mg - Objective Vital Signs: Vital Signs Temperature 36.6 C 04/08/18 10:00 Pulse Rate 95 H 04/08/18 10:00 Respiratory Rate 20 04/08/18 10:00 Blood Pressure 133/68 04/08/18 10:00 O2 Sat by Pulse Oximetry (%) 94 L 04/08/18 09:00 Constitutional: Yes: No Distress, Calm, Obese Cardiovascular: Yes: Regular Rate and Rhythm. No: Gallop, Murmur, Rub Respiratory: Yes: Regular, On Nasal O2, Rhonchi. No: CTA Bilaterally, Rales, Wheezes Gastrointestinal: Yes: Normal Bowel Sounds, Soft. No: Distention, Tenderness Extremities: Yes: WNL Edema: No Labs: CBC, BMP 04/08/18 06:00 04/08/18 06:00 INR, PTT INR 2.87 (0.82-1.09) H 04/08/18 06:00 Problem List - Problems (1) COPD exacerbation Code(s): J44.1 - CHRONIC OBSTRUCTIVE PULMONARY DISEASE W (ACUTE) EXACERBATION (2) Acute on chronic respiratory failure with hypoxia and hypercapnia Code(s): J96.21 - ACUTE AND CHRONIC RESPIRATORY FAILURE WITH HYPOXIA; J96.22 - ACUTE AND CHRONIC RESPIRATORY FAILURE WITH HYPERCAPNIA (3) Atrial fibrillation Code(s): I48.91 - UNSPECIFIED ATRIAL FIBRILLATION Qualifiers: Atrial fibrillation type: chronic Qualified Code(s): I48.2 - Chronic atrial fibrillation (4) CHF (congestive heart failure) Code(s): I50.9 - HEART FAILURE, UNSPECIFIED (5) Chronic wound of extremity Code(s): [id number] - (6) Diabetes Code(s): E11.9 - TYPE 2 DIABETES MELLITUS WITHOUT COMPLICATIONS Qualifiers: Diabetes mellitus type: type 2 Diabetes mellitus terminal superintendent insulin use: without longterm use Diabetes mellitus complication status: with hyperglycemia Qualified Code(s): E11.65 - Type 2 diabetes mellitus with hyperglycemia (7) HTN (hypertension) Code(s): I10 - ESSENTIAL (PRIMARY) HYPERTENSION Qualifiers: Hypertension type: essential hypertension Qualified Code(s): I10 - Essential (primary) hypertension (8) Hypothyroidism Code(s): E03.9 - HYPOTHYROIDISM, UNSPECIFIED (9) Morbid obesity Code(s): E66.01 - MORBID (SEVERE) OBESITY DUE TO EXCESS CALORIES Assessment/Plan (1) COPD exacerbation Assessment/Plan: -patient continues to improve -continue current management Code(s): J44.1 - CHRONIC OBSTRUCTIVE PULMONARY DISEASE W (ACUTE) EXACERBATION (2) Acute on chronic respiratory failure with hypoxia and hypercapnia Assessment/Plan: -much improved -sitting up without oxygen and comfortable -at baseline needs it on exertion Code(s): J96.21 - ACUTE AND CHRONIC RESPIRATORY FAILURE WITH HYPOXIA; J96.22 - ACUTE AND CHRONIC RESPIRATORY FAILURE WITH HYPERCAPNIA (3) Atrial fibrillation Assessment/Plan: -continue diltiazem and digoxin -supratherapeutic on coumadin -coumadin held currently Code(s): I48.91 - UNSPECIFIED ATRIAL FIBRILLATION Qualifiers: Atrial fibrillation type: chronic Qualified Code(s): I48.2 - Chronic atrial fibrillation (4) CHF (congestive heart failure) Assessment/Plan: -does not appear in exacerbation -appreciate cardiology assistance -continue lasix 40mg bid Code(s): I50.9 - HEART FAILURE, UNSPECIFIED Qualifiers: Qualified Code(s): I50.32 - Chronic diastolic (congestive) heart failure (5) Chronic wound of extremity Assessment/Plan: -continue current antibiotics -ID following, defer to their assessment for change or cessation Code(s): [id number] - (6) Diabetes Assessment/Plan: -continue SSI -will be elevated secondary to steroids Code(s): E11.9 - TYPE 2 DIABETES MELLITUS WITHOUT COMPLICATIONS Qualifiers: Diabetes mellitus type: type 2 Diabetes mellitus terminal superintendent insulin use: without longterm use Diabetes mellitus complication status: with hyperglycemia Qualified Code(s): E11.65 - Type 2 diabetes mellitus with hyperglycemia (7) HTN (hypertension) Assessment/Plan: -well controlled -continue current management Code(s): I10 - ESSENTIAL (PRIMARY) HYPERTENSION Qualifiers: Hypertension type: essential hypertension Qualified Code(s): I10 - Essential (primary) hypertension (8) Hypothyroidism Assessment/Plan: -continue levothyroxine Code(s): E03.9 - HYPOTHYROIDISM, UNSPECIFIED (9) Morbid obesity Assessment/Plan: -outpatient weight loss program Code(s): E66.01 - MORBID (SEVERE) OBESITY DUE TO EXCESS CALORIES (10) Hypokalemia -continue oral replacement
--- NOTE | 2018-04-08 13:21 | PN ---
Progress Note (short form) - Note Progress Note: still coughing, but looks more comfortable no fevers Vital Signs Period Temp Pulse Resp BP Sys/Luke Pulse Ox Last 24 Hr 97.4 F-98 F 91-99 18-20 116-147/59-86 93-97 cor-rrr lungs bilateral rhonchi abd +pannus, nontender ext venous stasis, drying ulcers CBC, BMP 04/08/18 06:00 04/08/18 06:00 vanco trough 6 Microbiology 04/02/18 18:30 Blood - Peripheral Venous Blood Culture - Final NO GROWTH AFTER 5 DAYS INCUBATION 04/02/18 18:30 Blood - Peripheral Venous Blood Culture - Final NO GROWTH AFTER 5 DAYS INCUBATION 04/03/18 06:15 Cellulitis Gram Stain - Final 04/03/18 06:15 Cellulitis Wound Culture - Final Serratia Marcescens Providencia Rettgeri Klebsiella Oxytoca Mr S Aureus Enterococcus Casseliflavus 04/04/18 13:00 Rectal Swab VRE Culture - Final Vanco Resistant Enterococcus 04/03/18 17:30 Nares - Mrsa Screen - Right MRSA Screen - Final 04/03/18 17:30 Nares - Mrsa Screen - Left MRSA Screen - Final Mr S Aureus 04/02/18 18:00 Urine - Urine Clean Catch Urine Culture - Final Contaminated: Please Repeat 04/03/18 06:15 Nasopharyngeal Swab Influenza Types A,B Antigen - Final 04/03/18 06:15 Nasopharyngeal Swab - Final a/p cellulitis resolving copd exacerbation obesity MRSA contact isolation hypokalemia replace potassium switch to vanco/rocephin- cellulitis improved management of copd per pulmonary increase vanco to 1250 daily day #6 antibiotics overall improving cellulitis, anticipate d/c antibiotics next 24 to48 hours if she continues to improve
[2018-04-08] MEDS ORDERED: PT OWN MED DRAWER 7, Y5N ONE ×4 (14:48→18:31)
[2018-04-08] MEDS: ALBUTEROL SO4 0.083% IH SOL 2.5 MG/3 ML VIAL.NEB. NEB PRN ×2 (14:59→20:49)
[2018-04-08] MEDS: WARFARIN NA 2 MG TABLET (UD) PO SCH (17:01)
[2018-04-08] MEDS: VANCOMYCIN 1,250 MG in DEXTROSE 5%-WATER - 250 ML IVPB SCH (18:55)
[2018-04-09] MEDS: methylPREDNISolone NA SUCC 125 MG/2 ML VIAL IVPUSH SCH ×2 (01:08→09:36)
[2018-04-09] MEDS ORDERED: PT OWN MED DRAWER 7, Y5N ONE ×2 (06:27→22:16)
[2018-04-09] MEDS: FUROSEMIDE 40 MG TABLET (FP) PO SCH ×2 (06:40→14:13)
[2018-04-09] MEDS: LEVOTHYROXINE NA 50 MCG TABLET (FP) PO SCH (06:40)
[2018-04-09] MEDS: GLIMEPIRIDE 1 MG TABLET (FP) PO SCH (06:40)
[2018-04-09] MEDS: POTASSIUM CHLORIDE TABS 20 MEQ TABLET.ER (FP) PO SCH ×4 (06:40→23:32)
[2018-04-09] MEDS: INSULIN SLIDING SCALE (NOVOLOG) 1 VIAL SQ SCH ×4 (06:41→22:29)
[2018-04-09 06:54] LABS: HEMATOCRIT 38.3 % (32.4-45.2); MCH 24.4 pg (25.7-33.7); MCHC 31.3 g/dl (32.0-36.0); MEAN CELL VOLUME 78.1 fl (80-96); PLATELET COUNT 246 K/MM3 (134-434); RDW 19.3 % (11.6-15.6); WHITE BLOOD COUNT 6.4 K/mm3 (4.0-10.0)
[2018-04-09 07:00] LABS: INR 2.89 (0.82-1.09)
[2018-04-09 07:01] LABS: CHLORIDE 96 mmol/L (98-107); POTASSIUM 3.1 mmol/L (3.5-5.1); SODIUM 144 mmol/L (136-145)
[2018-04-09 07:06] LABS: ANION GAP 6 (8-16); BLOOD UREA NITROGEN 32 mg/dL (7-18); CALCIUM 8.9 mg/dL (8.5-10.1); CO2 42 mmol/L (21-32); CREATININE 0.8 mg/dL (0.55-1.02); GLUCOSE,RANDOM 253 mg/dL (74-106); MAGNESIUM 2.3 mg/dL (1.8-2.4); PHOSPHOROUS 3.5 mg/dL (2.5-4.9)
[2018-04-09 07:08] LABS: PROTHROMBIN TIME (PATIENT) 32.7 SEC (9.7-13.0)
[2018-04-09] MEDS: ARFORMOTEROL TARTRATE 15 MCG/2 ML VIAL NEB SCH ×2 (07:53→20:51)
--- NOTE | 2018-04-09 08:19 | PN ---
Progress Note, Physician History of Present Illness: Dyspnea on exertion, wheezes, productive cough persists. - Current Medication List Current Medications: Active Medications Acetaminophen (Tylenol -) 650 mg PO Q6H PRN PRN Reason: PAIN Last Admin: 04/08/18 00:23 Dose: 650 mg Albuterol Sulfate (Ventolin 0.083% Nebulizer Soln -) 1 amp NEB Q4H PRN PRN Reason: SHORT OF BREATH/WHEEZING Last Admin: 04/08/18 20:49 Dose: 1 amp Allopurinol (Zyloprim -) 100 mg PO DAILY [facility] Last Admin: 04/08/18 09:26 Dose: 100 mg Arformoterol Tartrate (Brovana (Restricted To Pulmonology/Resp) -) 1 amp NEB RBID [facility] Last Admin: 04/09/18 07:53 Dose: 1 amp Digoxin (Lanoxin -) 0.125 mg PO DAILY [facility] Last Admin: 04/08/18 09:26 Dose: 0.125 mg Diltiazem HCl (Cardizem Cd -) 120 mg PO DAILY [facility] Last Admin: 04/08/18 09:26 Dose: 120 mg Furosemide (Lasix -) 40 mg PO BID@0600,1400 [facility] Last Admin: 04/09/18 06:40 Dose: 40 mg Gabapentin (Neurontin -) 100 mg PO DAILY [facility] Last Admin: 04/08/18 09:26 Dose: 100 mg Glimepiride (Amaryl -) 1 mg PO DAILY@0700 [facility] Last Admin: 04/09/18 06:40 Dose: 1 mg Ceftriaxone Sodium 2 gm/ (Dextrose) 100 mls @ 200 mls/hr IVPB DAILY [facility]; Protocol Last Admin: 04/08/18 09:27 Dose: 200 mls/hr Vancomycin HCl 1,250 mg/ (Dextrose) 250 mls @ 250 mls/2 hr IVPB Q24H [facility]; Protocol Last Admin: 04/08/18 18:55 Dose: 250 mls/2 hr Insulin Aspart (Novolog Vial Sliding Scale -) 1 vial SQ ACHS [facility]; Protocol Last Admin: 04/09/18 06:41 Dose: 6 units Levothyroxine Sodium (Synthroid -) 50 mcg PO AM [facility] Last Admin: 04/09/18 06:40 Dose: 50 mcg Losartan Potassium (Cozaar -) 25 mg PO DAILY [facility] Last Admin: 04/08/18 09:26 Dose: 25 mg Methylprednisolone Sodium Succinate (Solu-Medrol -) 60 mg IVPUSH Q8H-IV [facility] Last Admin: 04/09/18 01:08 Dose: 60 mg Mometasone Furoate (Asmanex 220mcg -) 1 puff IH DAILY [facility] Last Admin: 04/08/18 09:34 Dose: 1 puff Nystatin (Mycostatin Cream -) 1 applic TP BID [facility] Last Admin: 04/08/18 21:53 Dose: 1 applic Pantoprazole Sodium (Protonix -) 40 mg PO DAILY [facility] Last Admin: 04/08/18 09:26 Dose: 40 mg Potassium Chloride (K-Dur -) 20 meq PO Q6HPO [facility] Last Admin: 04/09/18 06:40 Dose: 20 meq Tiotropium [place] (Spiriva -) 1 puff IH DAILY [facility] Last Admin: 04/08/18 09:26 Dose: 1 puff Warfarin Sodium (Coumadin -) 2 mg PO DAILY@1800 [facility] Last Admin: 04/08/18 17:01 Dose: 2 mg - Objective Vital Signs: Vital Signs Temperature 97.6 F 04/09/18 05:00 Pulse Rate 97 H 04/09/18 05:00 Respiratory Rate 20 04/09/18 05:00 Blood Pressure 144/94 04/09/18 05:00 O2 Sat by Pulse Oximetry (%) 97 04/09/18 07:56 Constitutional: Yes: No Distress, Calm Neck: Yes: Supple Cardiovascular: Yes: Tachycardia Respiratory: Yes: Regular, Diminished, SOB on Exertion, Wheezes Gastrointestinal: Yes: Normal Bowel Sounds, Soft, Abdomen, Obese Edema: Yes Edema: LLE: 2+, RLE: 2+ Integumentary: Yes: Venous Stasis Changes Labs: CBC, BMP 04/09/18 06:00 04/09/18 06:00 INR, PTT INR 2.89 (0.82-1.09) H 04/09/18 06:00 - ....Imaging EKG: Report Reviewed (Tele: Rapid afib) Problem List - Problems (1) Chronic anticoagulation Code(s): Z79.01 - USP (CURRENT) USE OF ANTICOAGULANTS (2) COPD exacerbation Code(s): J44.1 - CHRONIC OBSTRUCTIVE PULMONARY DISEASE W (ACUTE) EXACERBATION (3) Atrial fibrillation Code(s): I48.91 - UNSPECIFIED ATRIAL FIBRILLATION Qualifiers: Atrial fibrillation type: chronic Qualified Code(s): I48.2 - Chronic atrial fibrillation (4) Chronic bronchitis Code(s): J42 - UNSPECIFIED CHRONIC BRONCHITIS Qualifiers: Chronic bronchitis type: unspecified Qualified Code(s): J42 - Unspecified chronic bronchitis (5) Chronic venous stasis dermatitis of both lower extremities Code(s): I87.2 - VENOUS INSUFFICIENCY (CHRONIC) (PERIPHERAL) (6) Diastolic dysfunction without heart failure Code(s): I51.9 - HEART DISEASE, UNSPECIFIED (7) HTN (hypertension) Code(s): I10 - ESSENTIAL (PRIMARY) HYPERTENSION Qualifiers: Hypertension type: essential hypertension Qualified Code(s): I10 - Essential (primary) hypertension (8) Hypothyroidism Code(s): E03.9 - HYPOTHYROIDISM, UNSPECIFIED (9) Morbid obesity Code(s): E66.01 - MORBID (SEVERE) OBESITY DUE TO EXCESS CALORIES Assessment/Plan 1. Acute on chronic hypoxemic/hypercapenic respiratory failure related to exacerbation of reactive airway disease/COPD (O2 and steroid-dependent) 2. Diastolic dysfunction 3. CAD angina pectoris, stable 4. Permanent atrial fibrillation [id number] score of 7 on Coumadin with therapeutic INR and RVR 5. HTN/hypertensive cardiovascular disease 6. DM, hypoglycemia 7. Hypothyroidism 8. CKD 9. 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 History of DVT 11. Chronic venous stasis with resolving cellulitis 12. History of C. diff Ag + 13. Hypokalemia PLAN: 1. Resume Cardizem CD 180 qd, Digoxin 0.125 qd resumed 2. Continue Lasix 40 bid with close monitoring of renal function and electrolytes. K supplementation 3. Continue Cozaar 25 qd with close monitoring of renal function 4. A/C with Coumadin as per INR 5. Bronchodilator, IV steroid with GI protection, empiric antibiotic course and O2 6. CT chest noted. Pulmonary input noted
--- NOTE | 2018-04-09 08:35 | PN ---
Progress Note (short form) - Note Progress Note: Dr. Garcia to document today. ?CT chest to be repeated. ID note encouraging. Chest PT ordered. K slightly better; on 20 meq QID
[2018-04-09] MEDS ORDERED: DEXTROSE 5%-WATER 100 ML IVPB ONE (09:17)
[2018-04-09] MEDS: TIOTROPIUM BROMIDE 18 MCG CAPSULES IH SCH (09:36)
[2018-04-09] MEDS: DIGOXIN 0.125 MG TABLET (FP) PO SCH (09:36)
[2018-04-09] MEDS: CEFTRIAXONE 2 GM in DEXTROSE 5%-WATER 100 ML IVPB SCH (09:36)
[2018-04-09] MEDS: LOSARTAN POTASSIUM 25 MG TABLET PO SCH (09:36)
[2018-04-09] MEDS: GABAPENTIN 100 MG CAPSULE (FP) PO SCH (09:36)
[2018-04-09] MEDS: PANTOPRAZOLE 40 MG TABLET (FP) PO SCH (09:37)
[2018-04-09] MEDS: ALLOPURINOL 100 MG TABLET (FP) PO SCH (09:37)
[2018-04-09] MEDS: MOMETASONE FUROATE 220 MCG/IH INHALER IH SCH (09:43)
[2018-04-09] MEDS: NYSTATIN 100,000 UNIT/GM TOPICAL CREAM 15 GM TUBE TP SCH ×2 (09:43→22:34)
[2018-04-09] MEDS ORDERED: POTASSIUM CHLORIDE TABS 20 MEQ TABLET.ER (FP) PO ONE (11:31)
--- NOTE | 2018-04-09 11:32 | PN ---
Progress Note, Physician Chief Complaint: Ms Grove says she is doing well. Says breathing is at baseline. No cp or sob. - Current Medication List Current Medications: Active Medications Acetaminophen (Tylenol -) 650 mg PO Q6H PRN PRN Reason: PAIN Last Admin: 04/08/18 00:23 Dose: 650 mg Albuterol Sulfate (Ventolin 0.083% Nebulizer Soln -) 1 amp NEB Q4H PRN PRN Reason: SHORT OF BREATH/WHEEZING Last Admin: 04/08/18 20:49 Dose: 1 amp Allopurinol (Zyloprim -) 100 mg PO DAILY [facility] Last Admin: 04/09/18 09:37 Dose: 100 mg Arformoterol Tartrate (Brovana (Restricted To Pulmonology/Resp) -) 1 amp NEB RBID [facility] Last Admin: 04/09/18 07:53 Dose: 1 amp Digoxin (Lanoxin -) 0.125 mg PO DAILY [facility] Last Admin: 04/09/18 09:36 Dose: 0.125 mg Diltiazem HCl (Cardizem Cd -) 180 mg PO DAILY [facility] Last Admin: 04/09/18 09:36 Dose: 180 mg Furosemide (Lasix -) 40 mg PO BID@0600,1400 [facility] Last Admin: 04/09/18 06:40 Dose: 40 mg Gabapentin (Neurontin -) 100 mg PO DAILY [facility] Last Admin: 04/09/18 09:36 Dose: 100 mg Glimepiride (Amaryl -) 1 mg PO DAILY@0700 [facility] Last Admin: 04/09/18 06:40 Dose: 1 mg Ceftriaxone Sodium 2 gm/ (Dextrose) 100 mls @ 200 mls/hr IVPB DAILY [facility]; Protocol Last Admin: 04/09/18 09:36 Dose: 200 mls/hr Vancomycin HCl 1,250 mg/ (Dextrose) 250 mls @ 250 mls/2 hr IVPB Q24H [facility]; Protocol Last Admin: 04/08/18 18:55 Dose: 250 mls/2 hr Insulin Aspart (Novolog Vial Sliding Scale -) 1 vial SQ ACHS [facility]; Protocol Last Admin: 04/09/18 06:41 Dose: 6 units Levothyroxine Sodium (Synthroid -) 50 mcg PO AM [facility] Last Admin: 04/09/18 06:40 Dose: 50 mcg Losartan Potassium (Cozaar -) 25 mg PO DAILY [facility] Last Admin: 04/09/18 09:36 Dose: 25 mg Methylprednisolone Sodium Succinate (Solu-Medrol -) 60 mg IVPUSH Q8H-IV [facility] Last Admin: 04/09/18 09:36 Dose: 60 mg Mometasone Furoate (Asmanex 220mcg -) 1 puff IH DAILY [facility] Last Admin: 04/09/18 09:43 Dose: 1 puff Nystatin (Mycostatin Cream -) 1 applic TP BID [facility] Last Admin: 04/09/18 09:43 Dose: 1 applic Pantoprazole Sodium (Protonix -) 40 mg PO DAILY [facility] Last Admin: 04/09/18 09:37 Dose: 40 mg Potassium Chloride (K-Dur -) 20 meq PO Q6HPO [facility] Last Admin: 04/09/18 06:40 Dose: 20 meq Tiotropium [place] (Spiriva -) 1 puff IH DAILY [facility] Last Admin: 04/09/18 09:36 Dose: 1 puff Warfarin Sodium (Coumadin -) 2 mg PO DAILY@1800 [facility] Last Admin: 04/08/18 17:01 Dose: 2 mg - Objective Vital Signs: Vital Signs Temperature 36.6 C 04/09/18 09:00 Pulse Rate 101 H 04/09/18 09:36 Respiratory Rate 20 04/09/18 09:00 Blood Pressure 111/81 04/09/18 09:00 O2 Sat by Pulse Oximetry (%) 92 L 04/09/18 09:00 Constitutional: Yes: No Distress, Calm, Obese Cardiovascular: Yes: Pulse Irregular. No: Tachycardia, Gallop, Murmur, Rub Respiratory: Yes: Regular, On Nasal O2, Rhonchi. No: CTA Bilaterally, Rales, Wheezes Gastrointestinal: Yes: Normal Bowel Sounds, Soft. No: Distention, Tenderness Extremities: Yes: WNL Edema: No Labs: CBC, BMP 04/09/18 06:00 04/09/18 06:00 INR, PTT INR 2.89 (0.82-1.09) H 04/09/18 06:00 Problem List - Problems (1) COPD exacerbation Code(s): J44.1 - CHRONIC OBSTRUCTIVE PULMONARY DISEASE W (ACUTE) EXACERBATION (2) Acute on chronic respiratory failure with hypoxia and hypercapnia Code(s): J96.21 - ACUTE AND CHRONIC RESPIRATORY FAILURE WITH HYPOXIA; J96.22 - ACUTE AND CHRONIC RESPIRATORY FAILURE WITH HYPERCAPNIA (3) Atrial fibrillation Code(s): I48.91 - UNSPECIFIED ATRIAL FIBRILLATION Qualifiers: Atrial fibrillation type: chronic Qualified Code(s): I48.2 - Chronic atrial fibrillation (4) CHF (congestive heart failure) Code(s): I50.9 - HEART FAILURE, UNSPECIFIED (5) Chronic wound of extremity Code(s): [id number] - (6) Diabetes Code(s): E11.9 - TYPE 2 DIABETES MELLITUS WITHOUT COMPLICATIONS Qualifiers: Diabetes mellitus type: type 2 Diabetes mellitus care home insulin use: without parts counterman use Diabetes mellitus complication status: with hyperglycemia Qualified Code(s): E11.65 - Type 2 diabetes mellitus with hyperglycemia (7) HTN (hypertension) Code(s): I10 - ESSENTIAL (PRIMARY) HYPERTENSION Qualifiers: Hypertension type: essential hypertension Qualified Code(s): I10 - Essential (primary) hypertension (8) Hypothyroidism Code(s): E03.9 - HYPOTHYROIDISM, UNSPECIFIED (9) Morbid obesity Code(s): E66.01 - MORBID (SEVERE) OBESITY DUE TO EXCESS CALORIES Assessment/Plan (1) COPD exacerbation Assessment/Plan: -patient feels at baseline -continue oxygen -continue inhalers -case d/w pulmonary, will continue to taper steroids Code(s): J44.1 - CHRONIC OBSTRUCTIVE PULMONARY DISEASE W (ACUTE) EXACERBATION (2) Acute on chronic respiratory failure with hypoxia and hypercapnia Assessment/Plan: -at baseline Code(s): J96.21 - ACUTE AND CHRONIC RESPIRATORY FAILURE WITH HYPOXIA; J96.22 - ACUTE AND CHRONIC RESPIRATORY FAILURE WITH HYPERCAPNIA (3) Atrial fibrillation Assessment/Plan: -continue diltiazem and digoxin -coumadin restarted Code(s): I48.91 - UNSPECIFIED ATRIAL FIBRILLATION Qualifiers: Atrial fibrillation type: chronic Qualified Code(s): I48.2 - Chronic atrial fibrillation (4) CHF (congestive heart failure) Assessment/Plan: -does not appear in exacerbation -appreciate cardiology assistance -continue lasix 40mg bid Code(s): I50.9 - HEART FAILURE, UNSPECIFIED Qualifiers: Qualified Code(s): I50.32 - Chronic diastolic (congestive) heart failure (5) Chronic wound of extremity Assessment/Plan: -continue current antibiotics -ID following, defer to their assessment for change or cessation Code(s): [id number] - (6) Diabetes Assessment/Plan: -continue SSI -will be elevated secondary to steroids Code(s): E11.9 - TYPE 2 DIABETES MELLITUS WITHOUT COMPLICATIONS Qualifiers: Diabetes mellitus type: type 2 Diabetes mellitus parts counterman insulin use: without care home use Diabetes mellitus complication status: with hyperglycemia Qualified Code(s): E11.65 - Type 2 diabetes mellitus with hyperglycemia (7) HTN (hypertension) Assessment/Plan: -well controlled -continue current management Code(s): I10 - ESSENTIAL (PRIMARY) HYPERTENSION Qualifiers: Hypertension type: essential hypertension Qualified Code(s): I10 - Essential (primary) hypertension (8) Hypothyroidism Assessment/Plan: -continue levothyroxine Code(s): E03.9 - HYPOTHYROIDISM, UNSPECIFIED (9) Morbid obesity Assessment/Plan: -outpatient weight loss program Code(s): E66.01 - MORBID (SEVERE) OBESITY DUE TO EXCESS CALORIES (10) Hypokalemia -continue oral replacement
[2018-04-09] MEDS ORDERED: methylPREDNISolone NA SUCC 125 MG/2 ML VIAL IVPUSH SCH (12:30)
--- NOTE | 2018-04-09 12:30 | PN ---
Progress Note, Physician History of Present Illness: pulmonary alert,feeling better,oob-chair,comfortable,less congested - Current Medication List Current Medications: Active Medications Acetaminophen (Tylenol -) 650 mg PO Q6H PRN PRN Reason: PAIN Last Admin: 04/08/18 00:23 Dose: 650 mg Albuterol Sulfate (Ventolin 0.083% Nebulizer Soln -) 1 amp NEB Q4H PRN PRN Reason: SHORT OF BREATH/WHEEZING Last Admin: 04/08/18 20:49 Dose: 1 amp Allopurinol (Zyloprim -) 100 mg PO DAILY [facility] Last Admin: 04/09/18 09:37 Dose: 100 mg Arformoterol Tartrate (Brovana (Restricted To Pulmonology/Resp) -) 1 amp NEB RBID [facility] Last Admin: 04/09/18 07:53 Dose: 1 amp Digoxin (Lanoxin -) 0.125 mg PO DAILY [facility] Last Admin: 04/09/18 09:36 Dose: 0.125 mg Diltiazem HCl (Cardizem Cd -) 180 mg PO DAILY [facility] Last Admin: 04/09/18 09:36 Dose: 180 mg Furosemide (Lasix -) 40 mg PO BID@0600,1400 [facility] Last Admin: 04/09/18 06:40 Dose: 40 mg Gabapentin (Neurontin -) 100 mg PO DAILY [facility] Last Admin: 04/09/18 09:36 Dose: 100 mg Glimepiride (Amaryl -) 1 mg PO DAILY@0700 [facility] Last Admin: 04/09/18 06:40 Dose: 1 mg Ceftriaxone Sodium 2 gm/ (Dextrose) 100 mls @ 200 mls/hr IVPB DAILY [facility]; Protocol Last Admin: 04/09/18 09:36 Dose: 200 mls/hr Vancomycin HCl 1,250 mg/ (Dextrose) 250 mls @ 250 mls/2 hr IVPB Q24H [facility]; Protocol Last Admin: 04/08/18 18:55 Dose: 250 mls/2 hr Insulin Aspart (Novolog Vial Sliding Scale -) 1 vial SQ ACHS [facility]; Protocol Last Admin: 04/09/18 12:01 Dose: 4 units Levothyroxine Sodium (Synthroid -) 50 mcg PO AM [facility] Last Admin: 04/09/18 06:40 Dose: 50 mcg Losartan Potassium (Cozaar -) 25 mg PO DAILY [facility] Last Admin: 04/09/18 09:36 Dose: 25 mg Methylprednisolone Sodium Succinate (Solu-Medrol -) 60 mg IVPUSH Q8H-IV [facility] Last Admin: 04/09/18 09:36 Dose: 60 mg Mometasone Furoate (Asmanex 220mcg -) 1 puff IH DAILY [facility] Last Admin: 04/09/18 09:43 Dose: 1 puff Nystatin (Mycostatin Cream -) 1 applic TP BID [facility] Last Admin: 04/09/18 09:43 Dose: 1 applic Pantoprazole Sodium (Protonix -) 40 mg PO DAILY [facility] Last Admin: 04/09/18 09:37 Dose: 40 mg Potassium Chloride (K-Dur -) 20 meq PO Q6HPO [facility] Last Admin: 04/09/18 12:01 Dose: 20 meq Potassium Chloride (K-Dur -) 40 meq PO ONCE ONE Stop: 04/09/18 11:32 Tiotropium [place] (Spiriva -) 1 puff IH DAILY [facility] Last Admin: 04/09/18 09:36 Dose: 1 puff Warfarin Sodium (Coumadin -) 2 mg PO DAILY@1800 [facility] Last Admin: 04/08/18 17:01 Dose: 2 mg - Objective Vital Signs: Vital Signs Temperature 97.8 F 04/09/18 09:00 Pulse Rate 101 H 04/09/18 09:36 Respiratory Rate 20 04/09/18 09:00 Blood Pressure 111/81 04/09/18 09:00 O2 Sat by Pulse Oximetry (%) 92 L 04/09/18 09:00 Constitutional: Yes: Calm, Obese Eyes: Yes: WNL HENT: Yes: WNL Neck: Yes: WNL Cardiovascular: Yes: Pulse Irregular, S1, S2 Respiratory: Yes: Rhonchi, Wheezes (less wheezes and rhonchi bilaterally) Gastrointestinal: Yes: Normal Bowel Sounds, Soft Extremities: Yes: WNL Edema: Yes Labs: CBC, BMP 04/09/18 06:00 04/09/18 06:00 INR, PTT INR 2.89 (0.82-1.09) H 04/09/18 06:00 Problem List - Problems (1) COPD exacerbation Code(s): J44.1 - CHRONIC OBSTRUCTIVE PULMONARY DISEASE W (ACUTE) EXACERBATION (2) Chronic anticoagulation Code(s): Z79.01 - ALF (CURRENT) USE OF ANTICOAGULANTS (3) Acute on chronic respiratory failure with hypoxia and hypercapnia Code(s): J96.21 - ACUTE AND CHRONIC RESPIRATORY FAILURE WITH HYPOXIA; J96.22 - ACUTE AND CHRONIC RESPIRATORY FAILURE WITH HYPERCAPNIA (4) Atrial fibrillation Code(s): I48.91 - UNSPECIFIED ATRIAL FIBRILLATION Qualifiers: Atrial fibrillation type: chronic Qualified Code(s): I48.2 - Chronic atrial fibrillation (5) CHF (congestive heart failure) Code(s): I50.9 - HEART FAILURE, UNSPECIFIED (6) Chronic wound of extremity Code(s): [id number] - (7) Diabetes Code(s): E11.9 - TYPE 2 DIABETES MELLITUS WITHOUT COMPLICATIONS Qualifiers: Diabetes mellitus type: type 2 Diabetes mellitus skilled nursing insulin use: without skilled nursing use Diabetes mellitus complication status: with hyperglycemia Qualified Code(s): E11.65 - Type 2 diabetes mellitus with hyperglycemia (8) Morbid obesity with BMI of 45.0-49.9, adult Code(s): E66.01 - MORBID (SEVERE) OBESITY DUE TO EXCESS CALORIES; Z68.42 - BODY MASS INDEX (BMI) 45.0-49.9, ADULT (9) T2DM (type 2 diabetes mellitus) Code(s): E11.9 - TYPE 2 DIABETES MELLITUS WITHOUT COMPLICATIONS Assessment/Plan IMP ACUTE ON CHONIC HYPOXEMIC/HYPERCAPNEIC RESPIRATORY FAILURE IMPROVING COPD EXACERBATION IMPROVING AFIB PVD DM HTN PLAN STEROID TAPER O2 INHALED BRONCHODILATORS ABX AC DR DANIELS Problem List - Problems (1) COPD exacerbation Code(s): J44.1 - CHRONIC OBSTRUCTIVE PULMONARY DISEASE W (ACUTE) EXACERBATION (2) Chronic anticoagulation Code(s): Z79.01 - PRECAST MOLDER (CURRENT) USE OF ANTICOAGULANTS (3) Acute on chronic respiratory failure with hypoxia and hypercapnia Code(s): J96.21 - ACUTE AND CHRONIC RESPIRATORY FAILURE WITH HYPOXIA; J96.22 - ACUTE AND CHRONIC RESPIRATORY FAILURE WITH HYPERCAPNIA (4) Atrial fibrillation Code(s): I48.91 - UNSPECIFIED ATRIAL FIBRILLATION Qualifiers: Atrial fibrillation type: chronic Qualified Code(s): I48.2 - Chronic atrial fibrillation (5) CHF (congestive heart failure) Code(s): I50.9 - HEART FAILURE, UNSPECIFIED Qualifiers: Qualified Code(s): I50.32 - Chronic diastolic (congestive) heart failure (6) Chronic wound of extremity Code(s): [id number] - (7) Diabetes Code(s): E11.9 - TYPE 2 DIABETES MELLITUS WITHOUT COMPLICATIONS Qualifiers: Diabetes mellitus type: type 2 Diabetes mellitus exterminator termite insulin use: without exterminator termite use Diabetes mellitus complication status: with hyperglycemia Qualified Code(s): E11.65 - Type 2 diabetes mellitus with hyperglycemia (8) Morbid obesity with BMI of 45.0-49.9, adult Code(s): E66.01 - MORBID (SEVERE) OBESITY DUE TO EXCESS CALORIES; Z68.42 - BODY MASS INDEX (BMI) 45.0-49.9, ADULT (9) T2DM (type 2 diabetes mellitus) Code(s): E11.9 - TYPE 2 DIABETES MELLITUS WITHOUT COMPLICATIONS
[2018-04-09 12:36] LABS: ANISOCYTOSIS 1+
[2018-04-09] MEDS: VANCOMYCIN 1,250 MG in DEXTROSE 5%-WATER - 250 ML IVPB SCH (16:36)
[2018-04-09] MEDS: WARFARIN NA 2 MG TABLET (UD) PO SCH (17:09)
[2018-04-09] MEDS: methylPREDNISolone NA SUCC 40 MG/1 ML VIAL IVPUSH SCH (17:15)
[2018-04-10] MEDS: methylPREDNISolone NA SUCC 40 MG/1 ML VIAL IVPUSH SCH ×3 (01:12→17:18)
[2018-04-10] MEDS ORDERED: PT OWN MED DRAWER 7, Y5N ONE ×2 (06:35→14:43)
[2018-04-10] MEDS: INSULIN SLIDING SCALE (NOVOLOG) 1 VIAL SQ SCH ×4 (06:45→21:36)
[2018-04-10] MEDS: POTASSIUM CHLORIDE TABS 20 MEQ TABLET.ER (FP) PO SCH ×3 (06:45→18:16)
[2018-04-10] MEDS: FUROSEMIDE 40 MG TABLET (FP) PO SCH ×2 (06:45→14:47)
[2018-04-10] MEDS: LEVOTHYROXINE NA 50 MCG TABLET (FP) PO SCH (06:45)
[2018-04-10] MEDS: GLIMEPIRIDE 1 MG TABLET (FP) PO SCH (06:45)
[2018-04-10 08:17] LABS: HEMATOCRIT 39.5 % (32.4-45.2); HEMOGLOBIN 12.4 GM/dL (10.7-15.3); LYMPH % 4.5 % (8-40); MCH 24.4 pg (25.7-33.7); MCHC 31.3 g/dl (32.0-36.0); MEAN CELL VOLUME 77.9 fl (80-96); MEAN PLT VOLUME 8.3 fl (7.5-11.1); MONO % 4.5 % (3.8-10.2); PLATELET COUNT 257 K/MM3 (134-434); RBC 5.07 M/mm3 (3.60-5.2); RDW 19.1 % (11.6-15.6); WHITE BLOOD COUNT 7.9 K/mm3 (4.0-10.0)
[2018-04-10 08:21] LABS: ANION GAP 4 (8-16); BLOOD UREA NITROGEN 33 mg/dL (7-18); CHLORIDE 96 mmol/L (98-107); CO2 44 mmol/L (21-32); CREATININE 0.8 mg/dL (0.55-1.02); GLUCOSE,RANDOM 217 mg/dL (74-106); MAGNESIUM 2.5 mg/dL (1.8-2.4); PHOSPHOROUS 3.4 mg/dL (2.5-4.9); POTASSIUM 3.7 mmol/L (3.5-5.1); SODIUM 144 mmol/L (136-145)
[2018-04-10 08:24] LABS: INR 3.18 (0.82-1.09); PROTHROMBIN TIME (PATIENT) 35.9 SEC (9.7-13.0)
[2018-04-10] MEDS: ARFORMOTEROL TARTRATE 15 MCG/2 ML VIAL NEB SCH ×2 (08:34→21:07)
[2018-04-10] MEDS ORDERED: DEXTROSE 5%-WATER 100 ML IVPB ONE (09:09)
[2018-04-10] MEDS: GABAPENTIN 100 MG CAPSULE (FP) PO SCH (10:00)
--- NOTE | 2018-04-10 10:11 | PN ---
Progress Note (short form) - Note Progress Note: Dr. Garcia to document today. She wants to go home but she is alone there. Physical Therapy report noted. I have rec: SNF post hospital.
[2018-04-10] MEDS: CEFTRIAXONE 2 GM in DEXTROSE 5%-WATER 100 ML IVPB SCH (10:50)
[2018-04-10] MEDS: LOSARTAN POTASSIUM 25 MG TABLET PO SCH (10:51)
[2018-04-10] MEDS: DIGOXIN 0.125 MG TABLET (FP) PO SCH (10:51)
[2018-04-10] MEDS: TIOTROPIUM BROMIDE 18 MCG CAPSULES IH SCH (10:51)
[2018-04-10] MEDS: ALLOPURINOL 100 MG TABLET (FP) PO SCH (10:51)
[2018-04-10] MEDS: NYSTATIN 100,000 UNIT/GM TOPICAL CREAM 15 GM TUBE TP SCH ×2 (10:52→21:45)
[2018-04-10] MEDS: PANTOPRAZOLE 40 MG TABLET (FP) PO SCH (11:00)
[2018-04-10 11:29] LABS: ANISOCYTOSIS 1+; MACROCYTOSIS 0; PLATELET ESTIMATE NORMAL
--- NOTE | 2018-04-10 12:07 | PN ---
Progress Note, Physician History of Present Illness: pulmonary alert,sitting up in bed,-resp distress - Current Medication List Current Medications: Active Medications Acetaminophen (Tylenol -) 650 mg PO Q6H PRN PRN Reason: PAIN Last Admin: 04/08/18 00:23 Dose: 650 mg Albuterol Sulfate (Ventolin 0.083% Nebulizer Soln -) 1 amp NEB Q4H PRN PRN Reason: SHORT OF BREATH/WHEEZING Last Admin: 04/08/18 20:49 Dose: 1 amp Allopurinol (Zyloprim -) 100 mg PO DAILY [facility] Last Admin: 04/10/18 10:51 Dose: 100 mg Arformoterol Tartrate (Brovana (Restricted To Pulmonology/Resp) -) 1 amp NEB RBID [facility] Last Admin: 04/10/18 08:34 Dose: 1 amp Digoxin (Lanoxin -) 0.125 mg PO DAILY [facility] Last Admin: 04/10/18 10:51 Dose: 0.125 mg Diltiazem HCl (Cardizem Cd -) 180 mg PO DAILY [facility] Last Admin: 04/10/18 10:51 Dose: 180 mg Furosemide (Lasix -) 40 mg PO BID@0600,1400 [facility] Last Admin: 04/10/18 06:45 Dose: 40 mg Gabapentin (Neurontin -) 100 mg PO DAILY [facility] Last Admin: 04/09/18 09:36 Dose: 100 mg Glimepiride (Amaryl -) 1 mg PO DAILY@0700 [facility] Last Admin: 04/10/18 06:45 Dose: 1 mg Ceftriaxone Sodium 2 gm/ (Dextrose) 100 mls @ 200 mls/hr IVPB DAILY [facility]; Protocol Last Admin: 04/10/18 10:50 Dose: 200 mls/hr Vancomycin HCl 1,250 mg/ (Dextrose) 250 mls @ 250 mls/2 hr IVPB Q24H [facility]; Protocol Last Admin: 04/09/18 16:36 Dose: 250 mls/2 hr Insulin Aspart (Novolog Vial Sliding Scale -) 1 vial SQ ACHS [facility]; Protocol Last Admin: 04/10/18 06:45 Dose: 4 units Levothyroxine Sodium (Synthroid -) 50 mcg PO AM [facility] Last Admin: 04/10/18 06:45 Dose: 50 mcg Losartan Potassium (Cozaar -) 25 mg PO DAILY [facility] Last Admin: 04/10/18 10:51 Dose: 25 mg Methylprednisolone Sodium Succinate (Solu-Medrol -) 40 mg IVPUSH Q8H-IV [facility] Last Admin: 04/10/18 10:51 Dose: 40 mg Mometasone Furoate (Asmanex 220mcg -) 1 puff IH DAILY [facility] Last Admin: 04/09/18 09:43 Dose: 1 puff Nystatin (Mycostatin Cream -) 1 applic TP BID [facility] Last Admin: 04/10/18 10:52 Dose: 1 applic Pantoprazole Sodium (Protonix -) 40 mg PO DAILY [facility] Last Admin: 04/09/18 09:37 Dose: 40 mg Potassium Chloride (K-Dur -) 20 meq PO Q6HPO [facility] Last Admin: 04/10/18 06:45 Dose: 20 meq Tiotropium [place] (Spiriva -) 1 puff IH DAILY [facility] Last Admin: 04/10/18 10:51 Dose: 1 puff Warfarin Sodium (Coumadin -) 2 mg PO DAILY@1800 [facility] Last Admin: 04/09/18 17:09 Dose: 2 mg - Objective Vital Signs: Vital Signs Temperature 97 F L 04/10/18 10:00 Pulse Rate 95 H 04/10/18 10:51 Respiratory Rate 20 04/10/18 10:00 Blood Pressure 127/77 04/10/18 10:00 O2 Sat by Pulse Oximetry (%) 96 04/10/18 11:46 Constitutional: Yes: Calm, Obese Eyes: Yes: WNL HENT: Yes: WNL Neck: Yes: WNL Cardiovascular: Yes: Pulse Irregular, S1, S2 Respiratory: Yes: Diminished Gastrointestinal: Yes: Normal Bowel Sounds, Soft Extremities: Yes: WNL Edema: Yes Labs: CBC, BMP 04/10/18 06:45 04/10/18 06:45 INR, PTT INR 3.18 (0.82-1.09) H* 04/10/18 06:45 Problem List - Problems (1) COPD exacerbation Code(s): J44.1 - CHRONIC OBSTRUCTIVE PULMONARY DISEASE W (ACUTE) EXACERBATION (2) Chronic anticoagulation Code(s): Z79.01 - PRACTICAL MINISTRIES PROFESSOR (CURRENT) USE OF ANTICOAGULANTS (3) Acute on chronic respiratory failure with hypoxia and hypercapnia Code(s): J96.21 - ACUTE AND CHRONIC RESPIRATORY FAILURE WITH HYPOXIA; J96.22 - ACUTE AND CHRONIC RESPIRATORY FAILURE WITH HYPERCAPNIA (4) Atrial fibrillation Code(s): I48.91 - UNSPECIFIED ATRIAL FIBRILLATION Qualifiers: Atrial fibrillation type: chronic Qualified Code(s): I48.2 - Chronic atrial fibrillation (5) CHF (congestive heart failure) Code(s): I50.9 - HEART FAILURE, UNSPECIFIED (6) Chronic wound of extremity Code(s): [id number] - (7) Diabetes Code(s): E11.9 - TYPE 2 DIABETES MELLITUS WITHOUT COMPLICATIONS Qualifiers: Diabetes mellitus type: type 2 Diabetes mellitus truck terminal manager insulin use: without snf use Diabetes mellitus complication status: with hyperglycemia Qualified Code(s): E11.65 - Type 2 diabetes mellitus with hyperglycemia (8) Morbid obesity with BMI of 45.0-49.9, adult Code(s): E66.01 - MORBID (SEVERE) OBESITY DUE TO EXCESS CALORIES; Z68.42 - BODY MASS INDEX (BMI) 45.0-49.9, ADULT (9) T2DM (type 2 diabetes mellitus) Code(s): E11.9 - TYPE 2 DIABETES MELLITUS WITHOUT COMPLICATIONS Assessment/Plan IMP ACUTE ON CHONIC HYPOXEMIC/HYPERCAPNEIC RESPIRATORY FAILURE IMPROVING COPD EXACERBATION IMPROVING AFIB PVD DM HTN PLAN PREDNISONE O2 INHALED BRONCHODILATORS ABX AC DR DANIELS Problem List - Problems (1) COPD exacerbation Code(s): J44.1 - CHRONIC OBSTRUCTIVE PULMONARY DISEASE W (ACUTE) EXACERBATION (2) Chronic anticoagulation Code(s): Z79.01 - HALF-WAY (CURRENT) USE OF ANTICOAGULANTS (3) Acute on chronic respiratory failure with hypoxia and hypercapnia Code(s): J96.21 - ACUTE AND CHRONIC RESPIRATORY FAILURE WITH HYPOXIA; J96.22 - ACUTE AND CHRONIC RESPIRATORY FAILURE WITH HYPERCAPNIA (4) Atrial fibrillation Code(s): I48.91 - UNSPECIFIED ATRIAL FIBRILLATION Qualifiers: Atrial fibrillation type: chronic Qualified Code(s): I48.2 - Chronic atrial fibrillation (5) CHF (congestive heart failure) Code(s): I50.9 - HEART FAILURE, UNSPECIFIED Qualifiers: Qualified Code(s): I50.32 - Chronic diastolic (congestive) heart failure (6) Chronic wound of extremity Code(s): [id number] - (7) Diabetes Code(s): E11.9 - TYPE 2 DIABETES MELLITUS WITHOUT COMPLICATIONS Qualifiers: Diabetes mellitus type: type 2 Diabetes mellitus truck terminal manager insulin use: without snf use Diabetes mellitus complication status: with hyperglycemia Qualified Code(s): E11.65 - Type 2 diabetes mellitus with hyperglycemia (8) Morbid obesity with BMI of 45.0-49.9, adult Code(s): E66.01 - MORBID (SEVERE) OBESITY DUE TO EXCESS CALORIES; Z68.42 - BODY MASS INDEX (BMI) 45.0-49.9, ADULT (9) T2DM (type 2 diabetes mellitus) Code(s): E11.9 - TYPE 2 DIABETES MELLITUS WITHOUT COMPLICATIONS
--- NOTE | 2018-04-10 12:29 | PN ---
Progress Note, Physician History of Present Illness: Dyspnea on exertion, wheezes, productive cough slowly improving. - Current Medication List Current Medications: Active Medications Acetaminophen (Tylenol -) 650 mg PO Q6H PRN PRN Reason: PAIN Last Admin: 04/08/18 00:23 Dose: 650 mg Albuterol Sulfate (Ventolin 0.083% Nebulizer Soln -) 1 amp NEB Q4H PRN PRN Reason: SHORT OF BREATH/WHEEZING Last Admin: 04/08/18 20:49 Dose: 1 amp Allopurinol (Zyloprim -) 100 mg PO DAILY [facility] Last Admin: 04/10/18 10:51 Dose: 100 mg Arformoterol Tartrate (Brovana (Restricted To Pulmonology/Resp) -) 1 amp NEB RBID [facility] Last Admin: 04/10/18 08:34 Dose: 1 amp Digoxin (Lanoxin -) 0.125 mg PO DAILY [facility] Last Admin: 04/10/18 10:51 Dose: 0.125 mg Diltiazem HCl (Cardizem Cd -) 180 mg PO DAILY [facility] Last Admin: 04/10/18 10:51 Dose: 180 mg Furosemide (Lasix -) 40 mg PO BID@0600,1400 [facility] Last Admin: 04/10/18 06:45 Dose: 40 mg Gabapentin (Neurontin -) 100 mg PO DAILY [facility] Last Admin: 04/09/18 09:36 Dose: 100 mg Glimepiride (Amaryl -) 1 mg PO DAILY@0700 [facility] Last Admin: 04/10/18 06:45 Dose: 1 mg Ceftriaxone Sodium 2 gm/ (Dextrose) 100 mls @ 200 mls/hr IVPB DAILY [facility]; Protocol Last Admin: 04/10/18 10:50 Dose: 200 mls/hr Vancomycin HCl 1,250 mg/ (Dextrose) 250 mls @ 250 mls/2 hr IVPB Q24H [facility]; Protocol Last Admin: 04/09/18 16:36 Dose: 250 mls/2 hr Insulin Aspart (Novolog Vial Sliding Scale -) 1 vial SQ ACHS [facility]; Protocol Last Admin: 04/10/18 06:45 Dose: 4 units Levothyroxine Sodium (Synthroid -) 50 mcg PO AM [facility] Last Admin: 04/10/18 06:45 Dose: 50 mcg Losartan Potassium (Cozaar -) 25 mg PO DAILY [facility] Last Admin: 04/10/18 10:51 Dose: 25 mg Methylprednisolone Sodium Succinate (Solu-Medrol -) 40 mg IVPUSH Q8H-IV [facility] Last Admin: 04/10/18 10:51 Dose: 40 mg Mometasone Furoate (Asmanex 220mcg -) 1 puff IH DAILY [facility] Last Admin: 04/09/18 09:43 Dose: 1 puff Nystatin (Mycostatin Cream -) 1 applic TP BID [facility] Last Admin: 04/10/18 10:52 Dose: 1 applic Pantoprazole Sodium (Protonix -) 40 mg PO DAILY [facility] Last Admin: 04/09/18 09:37 Dose: 40 mg Potassium Chloride (K-Dur -) 20 meq PO Q6HPO [facility] Last Admin: 04/10/18 06:45 Dose: 20 meq Tiotropium [place] (Spiriva -) 1 puff IH DAILY [facility] Last Admin: 04/10/18 10:51 Dose: 1 puff Warfarin Sodium (Coumadin -) 2 mg PO DAILY@1800 [facility] Last Admin: 04/09/18 17:09 Dose: 2 mg - Objective Vital Signs: Vital Signs Temperature 97 F L 04/10/18 10:00 Pulse Rate 95 H 04/10/18 10:51 Respiratory Rate 20 04/10/18 10:00 Blood Pressure 127/77 04/10/18 10:00 O2 Sat by Pulse Oximetry (%) 96 04/10/18 11:46 Constitutional: Yes: No Distress, Calm Neck: Yes: Supple Cardiovascular: Yes: Pulse Irregular Respiratory: Yes: Regular, Diminished, On Nasal O2 Gastrointestinal: Yes: Normal Bowel Sounds, Soft, Abdomen, Obese Edema: Yes Integumentary: Yes: Venous Stasis Changes Labs: CBC, BMP 04/10/18 06:45 04/10/18 06:45 INR, PTT INR 3.18 (0.82-1.09) H* 04/10/18 06:45 - ....Imaging EKG: Report Reviewed (Tele: Rate-controlled afib) Problem List - Problems (1) Chronic anticoagulation Code(s): Z79.01 - SPINNING MACHINE TENDER (CURRENT) USE OF ANTICOAGULANTS (2) COPD exacerbation Code(s): J44.1 - CHRONIC OBSTRUCTIVE PULMONARY DISEASE W (ACUTE) EXACERBATION (3) Atrial fibrillation Code(s): I48.91 - UNSPECIFIED ATRIAL FIBRILLATION Qualifiers: Atrial fibrillation type: chronic Qualified Code(s): I48.2 - Chronic atrial fibrillation (4) Chronic bronchitis Code(s): J42 - UNSPECIFIED CHRONIC BRONCHITIS Qualifiers: Chronic bronchitis type: unspecified Qualified Code(s): J42 - Unspecified chronic bronchitis (5) Chronic venous stasis dermatitis of both lower extremities Code(s): I87.2 - VENOUS INSUFFICIENCY (CHRONIC) (PERIPHERAL) (6) Diastolic dysfunction without heart failure Code(s): I51.9 - HEART DISEASE, UNSPECIFIED (7) HTN (hypertension) Code(s): I10 - ESSENTIAL (PRIMARY) HYPERTENSION Qualifiers: Hypertension type: essential hypertension Qualified Code(s): I10 - Essential (primary) hypertension (8) Hypothyroidism Code(s): E03.9 - HYPOTHYROIDISM, UNSPECIFIED (9) Morbid obesity Code(s): E66.01 - MORBID (SEVERE) OBESITY DUE TO EXCESS CALORIES Assessment/Plan 1. Acute on chronic hypoxemic/hypercapenic respiratory failure related to exacerbation of reactive airway disease/COPD (O2 and steroid-dependent) 2. Diastolic dysfunction 3. CAD angina pectoris, stable 4. Permanent atrial fibrillation [id number] score of 7 on Coumadin with supratherapeutic INR and improved rate-control 5. HTN/hypertensive cardiovascular disease 6. DM, hypoglycemia 7. Hypothyroidism 8. CKD 9. 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 History of DVT 11. Chronic venous stasis with resolving cellulitis 12. History of C. diff Ag + 13. Hypokalemia PLAN: 1. Continue Cardizem CD 180 qd, Digoxin 0.125 qd 2. Continue Lasix 40 bid with close monitoring of renal function and electrolytes. K supplementation 3. Continue Cozaar 25 qd with close monitoring of renal function 4. A/C with Coumadin as per INR 5. Bronchodilator, oral steroid taper with GI protection, empiric antibiotic course and O2 6. CT chest noted. Pulmonary input noted
[2018-04-10 12:43] VITALS: BMI 50.9
--- NOTE | 2018-04-10 13:25 | PN ---
Progress Note (short form) - Note Progress Note: doing well breathing improved Vital Signs Period Temp Pulse Resp BP Sys/Luke Pulse Ox Last 24 Hr 97 F-97.9 F 89-117 20-20 117-144/62-77 95-97 cor-rrr lungs clear abd soft,, +pannus ext venous stasis, minimal induration/erythema-baseline CBC, BMP 04/10/18 06:45 04/10/18 06:45 Microbiology 04/02/18 18:30 Blood - Peripheral Venous Blood Culture - Final NO GROWTH AFTER 5 DAYS INCUBATION 04/02/18 18:30 Blood - Peripheral Venous Blood Culture - Final NO GROWTH AFTER 5 DAYS INCUBATION 04/03/18 06:15 Cellulitis Gram Stain - Final 04/03/18 06:15 Cellulitis Wound Culture - Final Serratia Marcescens Providencia Rettgeri Klebsiella Oxytoca Mr S Aureus Enterococcus Casseliflavus 04/04/18 13:00 Rectal Swab VRE Culture - Final Vanco Resistant Enterococcus 04/03/18 17:30 Nares - Mrsa Screen - Right MRSA Screen - Final 04/03/18 17:30 Nares - Mrsa Screen - Left MRSA Screen - Final Mr S Aureus 04/02/18 18:00 Urine - Urine Clean Catch Urine Culture - Final Contaminated: Please Repeat 04/03/18 06:15 Nasopharyngeal Swab Influenza Types A,B Antigen - Final 04/03/18 06:15 Nasopharyngeal Swab - Final Active Medications Acetaminophen (Tylenol -) 650 mg PO Q6H PRN PRN Reason: PAIN Last Admin: 04/08/18 00:23 Dose: 650 mg Albuterol Sulfate (Ventolin 0.083% Nebulizer Soln -) 1 amp NEB Q4H PRN PRN Reason: SHORT OF BREATH/WHEEZING Last Admin: 04/08/18 20:49 Dose: 1 amp Allopurinol (Zyloprim -) 100 mg PO DAILY [facility] Last Admin: 04/10/18 10:51 Dose: 100 mg Arformoterol Tartrate (Brovana (Restricted To Pulmonology/Resp) -) 1 amp NEB RBID [facility] Last Admin: 04/10/18 08:34 Dose: 1 amp Digoxin (Lanoxin -) 0.125 mg PO DAILY [facility] Last Admin: 04/10/18 10:51 Dose: 0.125 mg Diltiazem HCl (Cardizem Cd -) 180 mg PO DAILY [facility] Last Admin: 04/10/18 10:51 Dose: 180 mg Furosemide (Lasix -) 40 mg PO BID@0600,1400 [facility] Last Admin: 04/10/18 06:45 Dose: 40 mg Gabapentin (Neurontin -) 100 mg PO DAILY [facility] Last Admin: 04/09/18 09:36 Dose: 100 mg Glimepiride (Amaryl -) 1 mg PO DAILY@0700 [facility] Last Admin: 04/10/18 06:45 Dose: 1 mg Ceftriaxone Sodium 2 gm/ (Dextrose) 100 mls @ 200 mls/hr IVPB DAILY [facility]; Protocol Last Admin: 04/10/18 10:50 Dose: 200 mls/hr Vancomycin HCl 1,250 mg/ (Dextrose) 250 mls @ 250 mls/2 hr IVPB Q24H [facility]; Protocol Last Admin: 04/09/18 16:36 Dose: 250 mls/2 hr Insulin Aspart (Novolog Vial Sliding Scale -) 1 vial SQ ACHS [facility]; Protocol Last Admin: 04/10/18 06:45 Dose: 4 units Levothyroxine Sodium (Synthroid -) 50 mcg PO AM [facility] Last Admin: 04/10/18 06:45 Dose: 50 mcg Losartan Potassium (Cozaar -) 25 mg PO DAILY [facility] Last Admin: 04/10/18 10:51 Dose: 25 mg Methylprednisolone Sodium Succinate (Solu-Medrol -) 40 mg IVPUSH Q8H-IV [facility] Last Admin: 04/10/18 10:51 Dose: 40 mg Mometasone Furoate (Asmanex 220mcg -) 1 puff IH DAILY [facility] Last Admin: 04/09/18 09:43 Dose: 1 puff Nystatin (Mycostatin Cream -) 1 applic TP BID [facility] Last Admin: 04/10/18 10:52 Dose: 1 applic Pantoprazole Sodium (Protonix -) 40 mg PO DAILY [facility] Last Admin: 04/09/18 09:37 Dose: 40 mg Potassium Chloride (K-Dur -) 20 meq PO Q6HPO [facility] Last Admin: 04/10/18 06:45 Dose: 20 meq Tiotropium [place] (Spiriva -) 1 puff IH DAILY [facility] Last Admin: 04/10/18 10:51 Dose: 1 puff Warfarin Sodium (Coumadin -) 2 mg PO DAILY@1800 [facility] Last Admin: 04/09/18 17:09 Dose: 2 mg a/p cellulitis resolved copd exacerbation obesity MRSA contact isolation hypokalemia day # 8 abx, can d/c d/w dr marin
[2018-04-10] MEDS: MOMETASONE FUROATE 220 MCG/IH INHALER IH SCH (14:46)
--- NOTE | 2018-04-10 15:13 | DS ---
Physical Examination Vital Signs: Vital Signs Temperature 36.1 C L 04/10/18 10:00 Pulse Rate 95 H 04/10/18 10:51 Respiratory Rate 20 04/10/18 10:00 Blood Pressure 127/77 04/10/18 10:00 O2 Sat by Pulse Oximetry (%) 96 04/10/18 14:04 Constitutional: Yes: No Distress, Calm, Obese Cardiovascular: Yes: Regular Rate and Rhythm. No: Gallop, Murmur, Rub Respiratory: Yes: Regular, On Nasal O2, Rhonchi. No: CTA Bilaterally, Rales, Wheezes Gastrointestinal: Yes: Normal Bowel Sounds, Soft. No: Distention, Tenderness Extremities: Yes: WNL Edema: No Labs: CBC, BMP 04/10/18 06:45 04/10/18 06:45 Discharge Summary Reason For Visit: COPD Current Active Problems COPD exacerbation (Acute) Chronic anticoagulation (Acute) Intertriginous candidiasis (Acute) Hospital Course: (1) COPD exacerbation Code(s): J44.1 - CHRONIC OBSTRUCTIVE PULMONARY DISEASE W (ACUTE) EXACERBATION (2) Acute on chronic respiratory failure with hypoxia and hypercapnia Code(s): J96.21 - ACUTE AND CHRONIC RESPIRATORY FAILURE WITH HYPOXIA; J96.22 - ACUTE AND CHRONIC RESPIRATORY FAILURE WITH HYPERCAPNIA (3) Atrial fibrillation Code(s): I48.91 - UNSPECIFIED ATRIAL FIBRILLATION Qualifiers: Atrial fibrillation type: chronic Qualified Code(s): I48.2 - Chronic atrial fibrillation (4) CHF (congestive heart failure) Code(s): I50.9 - HEART FAILURE, UNSPECIFIED (5) Chronic wound of extremity Code(s): [id number] - (6) Diabetes Code(s): E11.9 - TYPE 2 DIABETES MELLITUS WITHOUT COMPLICATIONS Qualifiers: Diabetes mellitus type: type 2 Diabetes mellitus chcf insulin use: without chcf use Diabetes mellitus complication status: with hyperglycemia Qualified Code(s): E11.65 - Type 2 diabetes mellitus with hyperglycemia (7) HTN (hypertension) Code(s): I10 - ESSENTIAL (PRIMARY) HYPERTENSION Qualifiers: Hypertension type: essential hypertension Qualified Code(s): I10 - Essential (primary) hypertension (8) Hypothyroidism Code(s): E03.9 - HYPOTHYROIDISM, UNSPECIFIED (9) Morbid obesity Code(s): E66.01 - MORBID (SEVERE) OBESITY DUE TO EXCESS CALORIES Ms Hanley is a pleasant 83 year old female who came in with COPD exacerbation causing acute on chronic respiratory failure. She was admitted to telemetry and seen by pulmonary. She was placed on continuous oxygen and cpap at night. She was given solumedrol and bronchodilators. She slowly improved, she has chronic ronchi. She should be continued on a prednisone taper. Defer to outpatient pulmonology and PCP about chronic steroid need. She was also found to have cellulitis and received a full course of antibiotics. She was seen by cardiology and diuresed with her home lasix. She is currently stable for discharge to SNF. 34 minutes spent in preparation of this discharge Condition: Stable - Instructions Diet, Activity, Other Instructions: diabetic, cholesterol controlled. Prednisone taper: take 40mg tid x2d, then 40mg bid x3d, then 60mg daily x3d, then 40mg daily x3d, then 20mg daily x3d, then 10mg daily x3d. Referrals: Garret Ivan MD [Staff Physician] - Xavi Storey MD [Primary Care Provider] - Shaheen Leal MD [Staff Physician] - Disposition: [facility] - Home Medications Comprehensive Discharge Medication List: Ambulatory Orders Albuterol Sulfate Inhaler - [Ventolin HFA Inhaler -] 2 inh IH Q6H PRN #0 inh 04/27 Allopurinol [Zyloprim -] 100 mg PO DAILY #0 tablet 06/22/13 Diltiazem Cd [Cardizem Cd -] 180 mg PO DAILY #0 cap.cd.24h 06/22/13 Acetaminophen [Tylenol .Regular Strength -] 650 mg PO Q6H PRN #240 tablet Losartan Potassium [Cozaar -] 25 mg PO DAILY #30 tablet 05/28/17 Warfarin Na [Coumadin -] 4 mg PO DAILY@1800 tablet 05/28/17 Digoxin [Lanoxin -] 0.125 mg PO DAILY 09/24/17 Albuterol 0.083% Nebulizer Bonnie [Ventolin 0.083% Nebulizer Soln -] 1 amp NEB Q4H PRN amp 10/02/17 Arformoterol Tartrate [Brovana -] 1 amp NEB RBID amp 10/02/17 Glimepiride [Glimepiride -] 1 mg PO DAILY@0700 tablet 10/02/17 Insulin Sliding Scale [Novolog Vial Sliding Scale -] 1 vial SQ TIDAC units Levothyroxine [Synthroid -] 50 mcg PO DAILY 30 Days #30 tablet 10/02/17 Tiotropium [place] [Spiriva] 1 puff IH DAILY inh 10/02/17 oxyCODONE HCL [Roxicodone -] 5 mg PO Q12H PRN #30 tablet MDD 2 10/02/17 Furosemide [Lasix -] 40 mg PO BID@0600,1400 tablet 10/03/17 Gabapentin [Neurontin -] 100 mg PO DAILY 04/02/18 Mometasone Furoate [Asmanex 220Mcg -] 1 puff IH DAILY inhaler 04/10/18 Pantoprazole Sodium [Protonix -] 40 mg PO DAILY tablet.ec 04/10/18 Potassium Chloride [K-Dur -] 20 meq PO Q6HPO tablet.er 04/10/18 predniSONE [Deltasone -] 10 mg PO ASDIR #87 tab 04/10/18
[2018-04-10] MEDS: VANCOMYCIN 1,250 MG in DEXTROSE 5%-WATER - 250 ML IVPB SCH (17:18)
[2018-04-10] MEDS: ALBUTEROL SO4 0.083% IH SOL 2.5 MG/3 ML VIAL.NEB. NEB PRN (21:07)
[2018-04-11] MEDS: POTASSIUM CHLORIDE TABS 20 MEQ TABLET.ER (FP) PO SCH ×3 (00:10→12:31)
[2018-04-11] MEDS: methylPREDNISolone NA SUCC 40 MG/1 ML VIAL IVPUSH SCH (01:25)
[2018-04-11] MEDS ORDERED: PT OWN MED DRAWER 7, Y5N ONE (05:35)
[2018-04-11] MEDS: FUROSEMIDE 40 MG TABLET (FP) PO SCH ×2 (06:29→13:26)
[2018-04-11] MEDS: GLIMEPIRIDE 1 MG TABLET (FP) PO SCH (06:29)
[2018-04-11] MEDS: LEVOTHYROXINE NA 50 MCG TABLET (FP) PO SCH (06:29)
[2018-04-11] MEDS: INSULIN SLIDING SCALE (NOVOLOG) 1 VIAL SQ SCH ×2 (06:30→12:30)
[2018-04-11] MEDS: ARFORMOTEROL TARTRATE 15 MCG/2 ML VIAL NEB SCH (08:43)
--- NOTE | 2018-04-11 08:43 | PN ---
Progress Note, Physician Chief Complaint: Comfortable, denies any chest pain off and on SOB, awaiting transfer to [place] - Current Medication List Current Medications: Active Medications Acetaminophen (Tylenol -) 650 mg PO Q6H PRN PRN Reason: PAIN Last Admin: 04/08/18 00:23 Dose: 650 mg Albuterol Sulfate (Ventolin 0.083% Nebulizer Soln -) 1 amp NEB Q4H PRN PRN Reason: SHORT OF BREATH/WHEEZING Last Admin: 04/10/18 21:07 Dose: 1 amp Allopurinol (Zyloprim -) 100 mg PO DAILY [facility] Last Admin: 04/10/18 10:51 Dose: 100 mg Arformoterol Tartrate (Brovana (Restricted To Pulmonology/Resp) -) 1 amp NEB RBID [facility] Last Admin: 04/10/18 21:07 Dose: Not Given Digoxin (Lanoxin -) 0.125 mg PO DAILY [facility] Last Admin: 04/10/18 10:51 Dose: 0.125 mg Diltiazem HCl (Cardizem Cd -) 180 mg PO DAILY [facility] Last Admin: 04/10/18 10:51 Dose: 180 mg Furosemide (Lasix -) 40 mg PO BID@0600,1400 [facility] Last Admin: 04/11/18 06:29 Dose: 40 mg Gabapentin (Neurontin -) 100 mg PO DAILY [facility] Last Admin: 04/10/18 10:00 Dose: Not Given Glimepiride (Amaryl -) 1 mg PO DAILY@0700 [facility] Last Admin: 04/11/18 06:29 Dose: 1 mg Ceftriaxone Sodium 2 gm/ (Dextrose) 100 mls @ 200 mls/hr IVPB DAILY [facility]; Protocol Last Admin: 04/10/18 10:50 Dose: 200 mls/hr Vancomycin HCl 1,250 mg/ (Dextrose) 250 mls @ 250 mls/2 hr IVPB Q24H [facility]; Protocol Last Admin: 04/10/18 17:18 Dose: 250 mls/2 hr Insulin Aspart (Novolog Vial Sliding Scale -) 1 vial SQ ACHS [facility]; Protocol Last Admin: 04/11/18 06:30 Dose: 2 units Levothyroxine Sodium (Synthroid -) 50 mcg PO AM [facility] Last Admin: 04/11/18 06:29 Dose: 50 mcg Losartan Potassium (Cozaar -) 25 mg PO DAILY [facility] Last Admin: 04/10/18 10:51 Dose: 25 mg Methylprednisolone Sodium Succinate (Solu-Medrol -) 40 mg IVPUSH Q8H-IV [facility] Last Admin: 04/11/18 01:25 Dose: 40 mg Mometasone Furoate (Asmanex 220mcg -) 1 puff IH DAILY [facility] Last Admin: 04/10/18 14:46 Dose: 1 puff Nystatin (Mycostatin Cream -) 1 applic TP BID [facility] Last Admin: 04/10/18 21:45 Dose: 1 applic Pantoprazole Sodium (Protonix -) 40 mg PO DAILY [facility] Last Admin: 04/10/18 11:00 Dose: 40 mg Potassium Chloride (K-Dur -) 20 meq PO Q6HPO [facility] Last Admin: 04/11/18 06:29 Dose: 20 meq Tiotropium [place] (Spiriva -) 1 puff IH DAILY [facility] Last Admin: 04/10/18 10:51 Dose: 1 puff Warfarin Sodium (Coumadin -) 2 mg PO DAILY@1800 [facility] Last Admin: 04/09/18 17:09 Dose: 2 mg - Objective Vital Signs: Vital Signs Temperature 97.9 F 04/11/18 06:00 Pulse Rate 97 H 04/11/18 06:00 Respiratory Rate 120 H 04/11/18 06:00 Blood Pressure 145/70 04/11/18 06:00 O2 Sat by Pulse Oximetry (%) 96 04/11/18 05:22 Constitutional: No Distress HEENT: YAtraumatic, NormocephalicConjunctiva Clear, EOM Intact, PERRL. No: Sclera Icterus Neck: Trachea Midline. No: Decreased ROM, Lymphadenopathy Cardiovascular: Pulse Irregular, S1, S2. No: JVD Respiratory: Yes: On Nasal O2, Rales Gastrointestinal: : Normal Bowel Sounds, Soft Extremities: Other (Chronic Venous stasis and Ulcers) Neurological: Alert, Oriented, Motor Strength: WNL, LUE, LLE, RUE, RLE Labs: CBC, BMP 04/10/18 06:45 04/10/18 06:45 INR, PTT INR 3.18 (0.82-1.09) H* 04/10/18 06:45 Problem List - Problems (1) Acute on chronic respiratory failure with hypoxia and hypercapnia Code(s): J96.21 - ACUTE AND CHRONIC RESPIRATORY FAILURE WITH HYPOXIA; J96.22 - ACUTE AND CHRONIC RESPIRATORY FAILURE WITH HYPERCAPNIA (2) COPD exacerbation Code(s): J44.1 - CHRONIC OBSTRUCTIVE PULMONARY DISEASE W (ACUTE) EXACERBATION (3) Acute on chronic diastolic (congestive) heart failure Code(s): I50.33 - ACUTE ON CHRONIC DIASTOLIC (CONGESTIVE) HEART FAILURE (4) Atrial fibrillation Code(s): I48.91 - UNSPECIFIED ATRIAL FIBRILLATION Qualifiers: Atrial fibrillation type: chronic Qualified Code(s): I48.2 - Chronic atrial fibrillation (5) Chronic wound of extremity Code(s): [id number] - (6) Hypothyroidism Code(s): E03.9 - HYPOTHYROIDISM, UNSPECIFIED (7) Morbid obesity Code(s): E66.01 - MORBID (SEVERE) OBESITY DUE TO EXCESS CALORIES (8) Intertriginous candidiasis Code(s): B37.2 - CANDIDIASIS OF SKIN AND NAIL (9) DVT prophylaxis Code(s): [id number] - (10) Diabetes Code(s): E11.9 - TYPE 2 DIABETES MELLITUS WITHOUT COMPLICATIONS Qualifiers: Diabetes mellitus type: type 2 Diabetes mellitus senior care insulin use: without joint terminal attack controller use Diabetes mellitus complication status: with hyperglycemia Qualified Code(s): E11.65 - Type 2 diabetes mellitus with hyperglycemia
[2018-04-11] MEDS ORDERED: DEXTROSE 5%-WATER 100 ML IVPB ONE (09:41)
--- NOTE | 2018-04-11 09:43 | PN ---
Progress Note, Physician History of Present Illness: pulmonary alert,no distress,sitting up in bed - Current Medication List Current Medications: Active Medications Acetaminophen (Tylenol -) 650 mg PO Q6H PRN PRN Reason: PAIN Last Admin: 04/08/18 00:23 Dose: 650 mg Albuterol Sulfate (Ventolin 0.083% Nebulizer Soln -) 1 amp NEB Q4H PRN PRN Reason: SHORT OF BREATH/WHEEZING Last Admin: 04/10/18 21:07 Dose: 1 amp Allopurinol (Zyloprim -) 100 mg PO DAILY [facility] Last Admin: 04/10/18 10:51 Dose: 100 mg Arformoterol Tartrate (Brovana (Restricted To Pulmonology/Resp) -) 1 amp NEB RBID [facility] Last Admin: 04/11/18 08:43 Dose: 1 amp Digoxin (Lanoxin -) 0.125 mg PO DAILY [facility] Last Admin: 04/10/18 10:51 Dose: 0.125 mg Diltiazem HCl (Cardizem Cd -) 180 mg PO DAILY [facility] Last Admin: 04/10/18 10:51 Dose: 180 mg Furosemide (Lasix -) 40 mg PO BID@0600,1400 [facility] Last Admin: 04/11/18 06:29 Dose: 40 mg Gabapentin (Neurontin -) 100 mg PO DAILY [facility] Last Admin: 04/10/18 10:00 Dose: Not Given Glimepiride (Amaryl -) 1 mg PO DAILY@0700 [facility] Last Admin: 04/11/18 06:29 Dose: 1 mg Ceftriaxone Sodium 2 gm/ (Dextrose) 100 mls @ 200 mls/hr IVPB DAILY [facility]; Protocol Last Admin: 04/10/18 10:50 Dose: 200 mls/hr Insulin Aspart (Novolog Vial Sliding Scale -) 1 vial SQ ACHS [facility]; Protocol Last Admin: 04/11/18 06:30 Dose: 2 units Levothyroxine Sodium (Synthroid -) 50 mcg PO AM [facility] Last Admin: 04/11/18 06:29 Dose: 50 mcg Losartan Potassium (Cozaar -) 25 mg PO DAILY [facility] Last Admin: 04/10/18 10:51 Dose: 25 mg Methylprednisolone Sodium Succinate (Solu-Medrol -) 40 mg IVPUSH Q8H-IV [facility] Last Admin: 04/11/18 01:25 Dose: 40 mg Mometasone Furoate (Asmanex 220mcg -) 1 puff IH DAILY [facility] Last Admin: 04/10/18 14:46 Dose: 1 puff Nystatin (Mycostatin Cream -) 1 applic TP BID [facility] Last Admin: 04/10/18 21:45 Dose: 1 applic Pantoprazole Sodium (Protonix -) 40 mg PO DAILY [facility] Last Admin: 04/10/18 11:00 Dose: 40 mg Potassium Chloride (K-Dur -) 20 meq PO Q6HPO [facility] Last Admin: 04/11/18 06:29 Dose: 20 meq Tiotropium [place] (Spiriva -) 1 puff IH DAILY [facility] Last Admin: 04/10/18 10:51 Dose: 1 puff Warfarin Sodium (Coumadin -) 2 mg PO DAILY@1800 [facility] Last Admin: 04/09/18 17:09 Dose: 2 mg - Objective Vital Signs: Vital Signs Temperature 97.9 F 04/11/18 06:00 Pulse Rate 97 H 04/11/18 06:00 Respiratory Rate 120 H 04/11/18 09:00 Blood Pressure 145/70 04/11/18 06:00 O2 Sat by Pulse Oximetry (%) 96 04/11/18 09:00 Constitutional: Yes: Calm, Obese Eyes: Yes: WNL HENT: Yes: WNL Neck: Yes: WNL Cardiovascular: Yes: Pulse Irregular, S1, S2 Respiratory: Yes: Rhonchi (few rhonchi) Gastrointestinal: Yes: Normal Bowel Sounds, Soft Extremities: Yes: WNL Edema: Yes Labs: CBC, BMP Problem List - Problems (1) COPD exacerbation Code(s): J44.1 - CHRONIC OBSTRUCTIVE PULMONARY DISEASE W (ACUTE) EXACERBATION (2) Chronic anticoagulation Code(s): Z79.01 - FLORAL ASSISTANT (CURRENT) USE OF ANTICOAGULANTS (3) Acute on chronic respiratory failure with hypoxia and hypercapnia Code(s): J96.21 - ACUTE AND CHRONIC RESPIRATORY FAILURE WITH HYPOXIA; J96.22 - ACUTE AND CHRONIC RESPIRATORY FAILURE WITH HYPERCAPNIA (4) Atrial fibrillation Code(s): I48.91 - UNSPECIFIED ATRIAL FIBRILLATION Qualifiers: Atrial fibrillation type: chronic Qualified Code(s): I48.2 - Chronic atrial fibrillation (5) CHF (congestive heart failure) Code(s): I50.9 - HEART FAILURE, UNSPECIFIED (6) Chronic wound of extremity Code(s): [id number] - (7) Diabetes Code(s): E11.9 - TYPE 2 DIABETES MELLITUS WITHOUT COMPLICATIONS Qualifiers: Diabetes mellitus type: type 2 Diabetes mellitus detention insulin use: without detention use Diabetes mellitus complication status: with hyperglycemia Qualified Code(s): E11.65 - Type 2 diabetes mellitus with hyperglycemia (8) Morbid obesity with BMI of 45.0-49.9, adult Code(s): E66.01 - MORBID (SEVERE) OBESITY DUE TO EXCESS CALORIES; Z68.42 - BODY MASS INDEX (BMI) 45.0-49.9, ADULT (9) T2DM (type 2 diabetes mellitus) Code(s): E11.9 - TYPE 2 DIABETES MELLITUS WITHOUT COMPLICATIONS Assessment/Plan IMP ACUTE ON CHONIC HYPOXEMIC/HYPERCAPNEIC RESPIRATORY FAILURE IMPROVING COPD EXACERBATION IMPROVING AFIB PVD DM HTN PLAN PREDNISONE 60mg po daily with taper O2 INHALED BRONCHODILATORS ABX AC DR DANIELS Problem List - Problems (1) COPD exacerbation Code(s): J44.1 - CHRONIC OBSTRUCTIVE PULMONARY DISEASE W (ACUTE) EXACERBATION (2) Chronic anticoagulation Code(s): Z79.01 - FLORAL ASSISTANT (CURRENT) USE OF ANTICOAGULANTS (3) Acute on chronic respiratory failure with hypoxia and hypercapnia Code(s): J96.21 - ACUTE AND CHRONIC RESPIRATORY FAILURE WITH HYPOXIA; J96.22 - ACUTE AND CHRONIC RESPIRATORY FAILURE WITH HYPERCAPNIA (4) Atrial fibrillation Code(s): I48.91 - UNSPECIFIED ATRIAL FIBRILLATION Qualifiers: Atrial fibrillation type: chronic Qualified Code(s): I48.2 - Chronic atrial fibrillation (5) CHF (congestive heart failure) Code(s): I50.9 - HEART FAILURE, UNSPECIFIED Qualifiers: Qualified Code(s): I50.32 - Chronic diastolic (congestive) heart failure (6) Chronic wound of extremity Code(s): [id number] - (7) Diabetes Code(s): E11.9 - TYPE 2 DIABETES MELLITUS WITHOUT COMPLICATIONS Qualifiers: Diabetes mellitus type: type 2 Diabetes mellitus animation artist insulin use: without detention use Diabetes mellitus complication status: with hyperglycemia Qualified Code(s): E11.65 - Type 2 diabetes mellitus with hyperglycemia (8) Morbid obesity with BMI of 45.0-49.9, adult Code(s): E66.01 - MORBID (SEVERE) OBESITY DUE TO EXCESS CALORIES; Z68.42 - BODY MASS INDEX (BMI) 45.0-49.9, ADULT (9) T2DM (type 2 diabetes mellitus) Code(s): E11.9 - TYPE 2 DIABETES MELLITUS WITHOUT COMPLICATIONS
[2018-04-11] MEDS ORDERED: predniSONE 20 MG TABLET (UD) PO SCH (10:00)
[2018-04-11 10:01] VITALS: BP 130/72; PULSE 104; TEMP 97.6
[2018-04-11] MEDS: DIGOXIN 0.125 MG TABLET (FP) PO SCH (10:04)
[2018-04-11] MEDS: CEFTRIAXONE 2 GM in DEXTROSE 5%-WATER 100 ML IVPB SCH (10:07)
[2018-04-11] MEDS: LOSARTAN POTASSIUM 25 MG TABLET PO SCH (10:07)
[2018-04-11] MEDS: ALLOPURINOL 100 MG TABLET (FP) PO SCH (10:07)
[2018-04-11] MEDS: GABAPENTIN 100 MG CAPSULE (FP) PO SCH (10:07)
[2018-04-11] MEDS: PANTOPRAZOLE 40 MG TABLET (FP) PO SCH (10:07)
[2018-04-11] MEDS: TIOTROPIUM BROMIDE 18 MCG CAPSULES IH SCH (10:07)
[2018-04-11] MEDS: MOMETASONE FUROATE 220 MCG/IH INHALER IH SCH (10:08)
--- NOTE | 2018-04-11 10:25 | PN ---
Progress Note, Physician History of Present Illness: Dyspnea on exertion, wheezes, productive cough slowly improving. - Current Medication List Current Medications: Active Medications Acetaminophen (Tylenol -) 650 mg PO Q6H PRN PRN Reason: PAIN Last Admin: 04/08/18 00:23 Dose: 650 mg Albuterol Sulfate (Ventolin 0.083% Nebulizer Soln -) 1 amp NEB Q4H PRN PRN Reason: SHORT OF BREATH/WHEEZING Last Admin: 04/10/18 21:07 Dose: 1 amp Allopurinol (Zyloprim -) 100 mg PO DAILY [facility] Last Admin: 04/11/18 10:07 Dose: 100 mg Arformoterol Tartrate (Brovana (Restricted To Pulmonology/Resp) -) 1 amp NEB RBID [facility] Last Admin: 04/11/18 08:43 Dose: 1 amp Digoxin (Lanoxin -) 0.125 mg PO DAILY [facility] Last Admin: 04/11/18 10:04 Dose: 0.125 mg Diltiazem HCl (Cardizem Cd -) 180 mg PO DAILY [facility] Last Admin: 04/10/18 10:51 Dose: 180 mg Furosemide (Lasix -) 40 mg PO BID@0600,1400 [facility] Last Admin: 04/11/18 06:29 Dose: 40 mg Gabapentin (Neurontin -) 100 mg PO DAILY [facility] Last Admin: 04/11/18 10:07 Dose: 100 mg Glimepiride (Amaryl -) 1 mg PO DAILY@0700 [facility] Last Admin: 04/11/18 06:29 Dose: 1 mg Ceftriaxone Sodium 2 gm/ (Dextrose) 100 mls @ 200 mls/hr IVPB DAILY [facility]; Protocol Last Admin: 04/11/18 10:07 Dose: 200 mls/hr Insulin Aspart (Novolog Vial Sliding Scale -) 1 vial SQ ACHS [facility]; Protocol Last Admin: 04/11/18 06:30 Dose: 2 units Levothyroxine Sodium (Synthroid -) 50 mcg PO AM [facility] Last Admin: 04/11/18 06:29 Dose: 50 mcg Losartan Potassium (Cozaar -) 25 mg PO DAILY [facility] Last Admin: 04/11/18 10:07 Dose: 25 mg Mometasone Furoate (Asmanex 220mcg -) 1 puff IH DAILY [facility] Last Admin: 04/11/18 10:08 Dose: 1 puff Nystatin (Mycostatin Cream -) 1 applic TP BID [facility] Last Admin: 04/10/18 21:45 Dose: 1 applic Pantoprazole Sodium (Protonix -) 40 mg PO DAILY [facility] Last Admin: 04/11/18 10:07 Dose: 40 mg Potassium Chloride (K-Dur -) 20 meq PO Q6HPO [facility] Last Admin: 04/11/18 06:29 Dose: 20 meq Prednisone (Deltasone -) 60 mg PO DAILY [facility] Last Admin: 04/11/18 10:03 Dose: 60 mg Tiotropium [place] (Spiriva -) 1 puff IH DAILY [facility] Last Admin: 04/11/18 10:07 Dose: 1 puff Warfarin Sodium (Coumadin -) 2 mg PO DAILY@1800 [facility] Last Admin: 04/09/18 17:09 Dose: 2 mg - Objective Vital Signs: Vital Signs Temperature 97.6 F 04/11/18 09:57 Pulse Rate 104 H 04/11/18 10:04 Respiratory Rate 20 04/11/18 09:57 Blood Pressure 130/72 04/11/18 09:57 O2 Sat by Pulse Oximetry (%) 96 04/11/18 09:00 Constitutional: Yes: No Distress, Calm Neck: Yes: Supple Cardiovascular: Yes: Regular Rate and Rhythm Respiratory: Yes: Regular, Diminished, On Nasal O2 Gastrointestinal: Yes: Normal Bowel Sounds, Soft, Abdomen, Obese Edema: Yes Edema: LLE: 2+, RLE: 2+ Labs: CBC, BMP 04/10/18 06:45 04/10/18 06:45 INR, PTT INR 3.18 (0.82-1.09) H* 04/10/18 06:45 Problem List - Problems (1) Chronic anticoagulation Code(s): Z79.01 - GRANT WRITER (CURRENT) USE OF ANTICOAGULANTS (2) COPD exacerbation Code(s): J44.1 - CHRONIC OBSTRUCTIVE PULMONARY DISEASE W (ACUTE) EXACERBATION (3) Atrial fibrillation Code(s): I48.91 - UNSPECIFIED ATRIAL FIBRILLATION Qualifiers: Atrial fibrillation type: chronic Qualified Code(s): I48.2 - Chronic atrial fibrillation (4) Chronic bronchitis Code(s): J42 - UNSPECIFIED CHRONIC BRONCHITIS Qualifiers: Chronic bronchitis type: unspecified Qualified Code(s): J42 - Unspecified chronic bronchitis (5) Chronic venous stasis dermatitis of both lower extremities Code(s): I87.2 - VENOUS INSUFFICIENCY (CHRONIC) (PERIPHERAL) (6) Diastolic dysfunction without heart failure Code(s): I51.9 - HEART DISEASE, UNSPECIFIED (7) HTN (hypertension) Code(s): I10 - ESSENTIAL (PRIMARY) HYPERTENSION Qualifiers: Hypertension type: essential hypertension Qualified Code(s): I10 - Essential (primary) hypertension (8) Hypothyroidism Code(s): E03.9 - HYPOTHYROIDISM, UNSPECIFIED (9) Morbid obesity Code(s): E66.01 - MORBID (SEVERE) OBESITY DUE TO EXCESS CALORIES Assessment/Plan 1. Acute on chronic hypoxemic/hypercapenic respiratory failure related to exacerbation of reactive airway disease/COPD (O2 and steroid-dependent) improving 2. Diastolic dysfunction 3. CAD angina pectoris, stable 4. Permanent atrial fibrillation [id number] score of 7 on Coumadin with supratherapeutic INR and improved rate-control 5. HTN/hypertensive cardiovascular disease 6. DM, hypoglycemia 7. Hypothyroidism 8. CKD 9. 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 History of DVT 11. Chronic venous stasis with resolving cellulitis 12. History of C. diff Ag + 13. Hypokalemia PLAN: 1. Continue Cardizem CD 180 qd, Digoxin 0.125 qd 2. Continue Lasix 40 bid with close monitoring of renal function and electrolytes. K supplementation 3. Continue Cozaar 25 qd with close monitoring of renal function 4. A/C with Coumadin as per INR 5. Bronchodilator, oral steroid taper with GI protection, empiric antibiotic course and O2 6. CT chest noted. Pulmonary input noted
[2018-04-11] MEDS: NYSTATIN 100,000 UNIT/GM TOPICAL CREAM 15 GM TUBE TP SCH (10:30)
[2018-04-11 11:29] LABS: INR 3.69 (0.82-1.09); PROTHROMBIN TIME (PATIENT) 41.7 SEC (9.7-13.0)
== END 2018-04-11 02:35 | DRG 189 ==
LOC: JER 16:50 → JERBED 23:11 → UNDOADMIN 23:13 → JERBED 23:13 → J4S 04-03 03:24
PROVIDERS: ADMIT Internal Medicine; ATTEND Internal Medicine
DX: J96.21 Acute and chronic respiratory failure with hypoxia (principal); J44.1 Chronic obstructive pulmonary disease with (acute) exacerbation; N39.0 Urinary tract infection, site not specified; Z68.42 Body mass index [BMI] 45.0-49.9, adult; L03.90 Cellulitis, unspecified; I50.32 Chronic diastolic (congestive) heart failure; J98.11 Atelectasis; J96.22 Acute and chronic respiratory failure with hypercapnia; E11.9 Type 2 diabetes mellitus without complications; E66.01 Morbid (severe) obesity due to excess calories; E03.9 Hypothyroidism, unspecified; I48.2 Chronic atrial fibrillation; E87.6 Hypokalemia; I73.9 Peripheral vascular disease, unspecified; I11.0 Hypertensive heart disease with heart failure; B37.2 Candidiasis of skin and nail; I25.119 Atherosclerotic heart disease of native coronary artery with unspecified angina pectoris
CPT/HCPCS: 36415; 71045-TC-FY; 71250-TC; 80048; 80053; 80162; 81003; 81015; 82550; 82803; 82962; 83036; 83735; 83880; 84100; 84484; 85025; 85027; 85610; 85730; 87040; 87070; 87081; 87086; 87186; 87205; 87804; 93005; 93010; 93306-TC; 94640; 94660; 97116-GP; 97161-GP; 99285-25; G0480; J7620

== ENCOUNTER 2018-06-11 17:12 | Emergency (ER) | payer OTHER ==
[2018-06-11 17:38] VITALS: BP 100/46; PULSE 67; TEMP 97.9; BMI 42.7
--- NOTE | 2018-06-11 18:00 | PDOC ---
History of Present Illness - General Chief Complaint: Pain Stated Complaint: PAIN Time Seen by Provider: 06/11/18 17:30 - History of Present Illness Initial Comments: 06/11/18 17:54 83 yo F with h/o HTN, HLD, DM, morbid obesity, A-fib ( on Coumadin) appendicitis , cholecystectomy, hysterectomy, BIBA from [facility] with left hip pain s/p mechanical fall. Patient daughter at bedside to assist in report. Patient reports left hip pain x 2 days following mechanical fall Friday ( 06/07/2018). Patient does not recall how she fell, or if she fell from standing height. Now endorses dull, left hip pain, worse with weight bearing, and ambulation. Typically ambulates with walker, unassisted. Also endorses acute on chronic posterior neck pain, worse with neck flexion. Does not recall head, or neck injury. Denies OTC analgesia. Denies Back pain, LOC, urinary retention, incontinence. 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 failure. Patient denies N/V, F/C, cough, orthopnea, CP, SOB, urinary complaints, abdominal pain, diarrhea, constipation, lightheadedness, weakness, sensory changes. PMHx: as noted above ROS: as noted SHx: Denies IVDA, Etoh. Allergies: NKDA Past History - Past Medical History Allergies/Adverse Reactions: Allergies Allergy/AdvReac Type Severity Reaction Status Date / Time No Known Allergies Allergy Verified 04/02/18 17:20 Home Medications: Ambulatory Orders Albuterol Sulfate Inhaler - [Ventolin HFA Inhaler -] 2 inh IH Q6H PRN #0 inh 04/27 Allopurinol [Zyloprim -] 100 mg PO DAILY #0 tablet 06/22/13 Diltiazem Cd [Cardizem Cd -] 180 mg PO DAILY #0 cap.cd.24h 06/22/13 Acetaminophen [Tylenol .Regular Strength -] 650 mg PO Q6H PRN #240 tablet Losartan Potassium [Cozaar -] 25 mg PO DAILY #30 tablet 05/28/17 Warfarin Na [Coumadin -] 4 mg PO DAILY@1800 tablet 05/28/17 Digoxin [Lanoxin -] 0.125 mg PO DAILY 09/24/17 Albuterol 0.083% Nebulizer Bonnie [Ventolin 0.083% Nebulizer Soln -] 1 amp NEB Q4H PRN amp 10/02/17 Arformoterol Tartrate [Brovana -] 1 amp NEB RBID amp 10/02/17 Glimepiride [Glimepiride -] 1 mg PO DAILY@0700 tablet 10/02/17 Insulin Sliding Scale [Novolog Vial Sliding Scale -] 1 vial SQ TIDAC units Levothyroxine [Synthroid -] 50 mcg PO DAILY 30 Days #30 tablet 10/02/17 Tiotropium [place] [Spiriva] 1 puff IH DAILY inh 10/02/17 oxyCODONE HCL [Roxicodone -] 5 mg PO Q12H PRN #30 tablet MDD 2 10/02/17 Furosemide [Lasix -] 40 mg PO BID@0600,1400 tablet 10/03/17 Gabapentin [Neurontin -] 100 mg PO DAILY 04/02/18 Mometasone Furoate [Asmanex 220Mcg -] 1 puff IH DAILY inhaler 04/10/18 Pantoprazole Sodium [Protonix -] 40 mg PO DAILY tablet.ec 04/10/18 Potassium Chloride [K-Dur -] 20 meq PO Q6HPO tablet.er 04/10/18 predniSONE [Deltasone -] 10 mg PO ASDIR #87 tab 04/10/18 Anemia: No Asthma: Yes Cancer: No Cardiac Disorders: Yes (ATRIAL FIBRILLATION) CVA: No COPD: Yes CHF: Yes DVT: No Dementia: Yes Diabetes: Yes GI Disorders: (HIATAL HERNIA, OBSTRUCTION) Disorders: Yes (uti) HTN: Yes Hypercholesterolemia: Yes Liver Disease: No Seizures: No Thyroid Disease: Yes (HYPO) - Surgical History Abdominal Surgery: Yes (HERNIA REPAIR X 3) Appendectomy: Yes (RUPTURED) Cardiac Surgery: Yes (cardioversion x 2) Cholecystectomy: Yes Lung Surgery: No Neurologic Surgery: No Orthopedic Surgery: No - Immunization History Immunization Up to Date: Yes - Suicide/Smoking/Psychosocial Hx Smoking Status: No Smoking History: Never smoked Have you smoked in the past 12 months: No Number of Cigarettes Smoked Daily: 0 If you are a former smoker, when did you quit?: 2007 Cigars Per Day: 20 Information on smoking cessation initiated: No Hx Alcohol Use: No Drug/Substance Use Hx: No Substance Use Type: None Hx Substance Use Treatment: No Review of Systems - Review of Systems Comments:: 06/11/18 18:01 GENERAL: Awake, alert, and fully oriented, in no acute distress HEAD: No signs of trauma, normocephalic, atraumatic EYES: PERRLA, EOMI, sclera anicteric, conjunctiva clear ENT: Auricles normal inspection, hearing grossly normal, nares patent, oropharynx clear without exudates. Moist mucosa NECK: Normal ROM, supple, no lymphadenopathy, JVD, or masses LUNGS: No distress, speaks full sentences, clear to auscultation bilaterally HEART: Regular rate and rhythm, normal S1 and S2, no murmurs, rubs or gallops, peripheral pulses normal and equal bilaterally. ABDOMEN: Soft, nontender, normoactive bowel sounds. No guarding, no rebound. No masses EXTREMITIES : Normal inspection, Normal range of motion, no edema. No clubbing or cyanosis. NEUROLOGICAL: Cranial nerves II through XII grossly intact. Normal speech, normal gait, no focal sensorimotor deficits SKIN: Warm, Dry, normal turgor, no rashes or lesions noted *Physical Exam - Vital Signs Last Vital Signs Temp Pulse Resp BP Pulse Ox 97.9 F 67 18 100/46 L 97 06/11/18 17:33 06/11/18 17:33 06/11/18 17:33 06/11/18 17:33 06/11/18 17:33 - Physical Exam Comments: 06/11/18 18:11 GENERAL: Awake, alert, and fully oriented, in no acute distress HEAD: No signs of trauma, normocephalic, atraumatic EYES: PERRLA, EOMI, sclera anicteric, conjunctiva clear ENT: Auricles normal inspection, hearing grossly normal, nares patent, oropharynx clear without exudates. Moist mucosa. Absent C-spine ttp. NECK: Normal ROM, supple, no lymphadenopathy, JVD, or masses LUNGS: + Diffuse exp wheezing. No distress, speaks full sentences, absent rales. HEART: Regular rate and rhythm, normal S1 and S2, no murmurs, rubs or gallops, peripheral pulses normal and equal bilaterally. ABDOMEN: Soft, nontender, normoactive bowel sounds. No guarding, no rebound. No masses EXTREMITIES : Normal inspection, Normal range of motion, no edema. No clubbing or cyanosis. Pulses symmetric and intact. BL LE dressings in place. Left Hip: Pain with active and passive ROM. Absent limb length discrepancy. Left shoulder: Pain with active and passive ROM. Absent bony deformity. NEUROLOGICAL: Cranial nerves II through XII grossly intact. Normal speech, no focal sensorimotor deficits. SKIN: Warm, Dry, normal turgor, no rashes or lesions noted ED Treatment Course - LABORATORY CBC & Chemistry Diagram: 06/11/18 20:30 06/11/18 20:30 Medical Decision Making - Medical Decision Making 06/11/18 18:02 83 yo F with h/o HTN, HLD, DM, morbid obesity, A-fib ( on Coumadin) appendicitis , cholecystectomy, hysterectomy, BIBA from [facility] with left hip pain, left shoulder, and posterior neck pain s/p mechanical fall (06/07/18). BP 100/46, vitals otherwise wnl, AF. ACS/AK r/o. R/o left hip and left shoulder fracture or dislocation. CTH r/o hemorrhage, hematoma, skull fracture. Will assess for hypoglycemia, hypovolemia, cardiac dysarrtyhmia, electrolyte abnml, metabolic and toxic derangement, acid-base disturbances, and infection. ED Course: CBC,CMP, PT/INR, Cardiac Pr. UA, Urine Cx. Left Hip/Pelvis RAD, Left shoulder RAD, CTH, CT C-SPINE 06/11/18 22:31 CTH, C-SPINE: No acute changes CXR: No acute pathology 06/11/18 22:32 CBC,CMP: Unremarkable Trop: Neg 06/11/18 23:43 Left Hip/Left Shoulder: No acute changes. Patient stable for d/c with return precautions. Advised to f/u with PMD. *DC/Admit/Observation/Transfer Diagnosis at time of Disposition: Accident due to mechanical fall without injury Qualifiers: Encounter type: initial encounter Qualified Code(s): W19.XXXA - Unspecified fall, initial encounter - Discharge Dispostion Disposition: HOME Condition at time of disposition: Stable Decision to Admit order: No - Referrals Referrals: Xavi Storey MD [Primary Care Provider] - - Patient Instructions Printed Discharge Instructions: How to Prevent Falls Additional Instructions: Please return to the emergency department with any new or worsening symptoms or concerns. Please follow up with your primary care physician within 72 hours. - Post Discharge Activity - Attestations Physician Attestion: 06/11/18 22:33 attest to the information provided in this note.
--- NOTE | 2018-06-11 18:16 | PDOC ---
Attending Attestation - HPI HPI: 06/11/18 18:48 The patient is a 83 year old female with a significant past medical history of HTN, HLD, DM, morbid obesity, Afib (on Coumadin), s/p appendicitis, cholecystectomy, hysterectomy who presents to the ED s/p fall several days ago. As per daughter, the patient reports pain to her left hip and left lower extremity after falling on Friday (06/07/2018). Patient does not recall the fall. Daughter states the patient also reports chronic left shoulder pain and neck pain prior to the fall. Patient is a poor historian. Denies nausea, vomiting. Denies fever or chills. Denies shortness of breath or chest pain. Denies any other symptoms. Documentation prepared by Jhonny Gutierrez, acting as medical office representative for Kayla Parra DO - Physicial Exam PE: 06/11/18 18:48 Constitutional:+ confused. No acute distress. Head: Normocephalic. Atraumatic Eyes: PERRL. EOMI. Conjunctivae are not pale. ENT: Mucous membranes are moist and intact. Posterior pharynx without exudates or erythema. Uvula midline. Neck: Supple. Full ROM. No lymphadenopathy. Cardiovascular: Regular rate. Regular rhythm. S1, S2 regular. Distal pulses are 2+ and symmetric. Pulmonary/Chest: + wheezing bilaterally. No rales or rhonchi. Abdominal: Soft and non-distended. There is no tenderness. No rebound, guarding or rigidity. No organomegaly. No palpable masses. Good bowel sounds. Back: No CVA tenderness. Musculoskeletal: + Edema to both legs, tenderness at the left lateral hip and inner groin at the left side. Able to lift right leg. o cyanosis. No clubbing. No calf tenderness. Radial/pedal pulses are intact and 2+ bilaterally Skin: Skin is warm and dry. No petechiae. No purpura. Neurological: + Confused. Alert. Cranial nerves II-XII are grossly intact. Normal speech. Strength is grossly symmetric. No sensory deficits. <Jhonny Gutierrez - Last Filed: 06/11/18 18:48> - Resident Resident Name: David Zuleta - ED Attending Attestation I have performed the following: I have examined & evaluated the patient, The case was reviewed & discussed with the resident, I agree w/resident's findings & plan, Exceptions are as noted - Medical Decision Making 06/11/18 18:16 I, Dr. Kayla Parra, DO, attest that this document has been prepared under my direction and personally reviewed by me in its entirety. I further attest, that it accurately reflects all work, treatment, procedures and medical decision -making performed by me. 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
[2018-06-11 21:05] LABS: BASO % 0.4 % (0-2.0); EOS % 6.5 % (0-4.5); HEMATOCRIT 40.6 % (32.4-45.2); HEMOGLOBIN 12.9 GM/dL (10.7-15.3); LYMPH % 32.9 % (8-40); MCH 25.7 pg (25.7-33.7); MCHC 31.8 g/dl (32.0-36.0); MONO % 7.9 % (3.8-10.2); NEUT % 52.3 % (42.8-82.8); PLATELET COUNT 291 K/MM3 (134-434); RBC 5.02 M/mm3 (3.60-5.2); RDW 22.3 % (11.6-15.6)
[2018-06-11 21:21] LABS: INR 2.65 (0.83-1.09); PROTHROMBIN TIME (PATIENT) 29.9 SEC (9.7-13.0)
[2018-06-11 21:45] LABS: ALBUMIN 3.2 g/dl (3.4-5.0); ALK PHOS 109 U/L (45-117); ANION GAP 11 MMOL/L (8-16); BILIRUBIN,TOTAL 0.7 mg/dL (0.2-1); BLOOD UREA NITROGEN 26 mg/dL (7-18); CALCIUM 9.3 mg/dL (8.5-10.1); CHLORIDE 98 mmol/L (98-107); CO2 29 mmol/L (21-32); CREATININE 0.8 mg/dL (0.55-1.3); GLUCOSE,RANDOM 91 mg/dL (74-106); POTASSIUM 3.5 mmol/L (3.5-5.1); SGOT/AST 21 U/L (15-37); SGPT/ALT 12 U/L (13-61); SODIUM 139 mmol/L (136-145)
[2018-06-11 22:45] LABS: ADD RBC MORPHOLOGY YES
[2018-06-11 22:47] LABS: ANISOCYTOSIS 3+; MACROCYTOSIS 1+; PLATELET ESTIMATE ADEQUATE
== END 2018-06-12 01:41 | disposition home or self-care (01) ==
LOC: JER 17:12
DX: S79.812A Other specified injuries of left hip, initial encounter (principal); S49.82XA Other specified injuries of left shoulder and upper arm, initial encounter; W18.39XA Other fall on same level, initial encounter; Y93.89 Activity, other specified; Y92.128 Other place in nursing home as the place of occurrence of the external cause; Y99.8 Other external cause status; I10 Essential (primary) hypertension; I48.91 Unspecified atrial fibrillation; Z79.01 Long term (current) use of anticoagulants; E78.5 Hyperlipidemia, unspecified; E66.01 Morbid (severe) obesity due to excess calories; Z68.41 Body mass index [BMI] 40.0-44.9, adult; J45.909 Unspecified asthma, uncomplicated; J44.9 Chronic obstructive pulmonary disease, unspecified; E03.9 Hypothyroidism, unspecified; Z87.440 Personal history of urinary (tract) infections; R26.89 Other abnormalities of gait and mobility; Z99.89 Dependence on other enabling machines and devices
CPT/HCPCS: 36415; 70450-TC; 71045-TC-FY; 72125-TC; 73030-TC-LT-FY; 73523-TC-FY; 80053; 82550; 84484; 85025; 85610; 99281-25

== ENCOUNTER 2018-07-11 16:48 | Inpatient (IN) | payer OTHER ==
--- NOTE | 2018-07-11 18:33 | PDOC ---
History of Present Illness - General Chief Complaint: Urinary Problem Stated Complaint: SENT BY PCP Time Seen by Provider: 07/11/18 17:26 History Source: Patient, Family (son) Exam Limitations: No Limitations - History of Present Illness Initial Comments: 07/11/18 18:28 Pt is a 83yo f with PMH of DM, HTN, HLD, Afib (on coumadin), COPD presenting to ED with complaints of urinary frequency and burning. Started 2 days ago. Pt went to her PCP and was told to go to the ED. Per son, pt has been a little more confused than usual, and this usually happens when she has an infection. Pt admits to chills and diarrhea 2 days ag. Denies fever, hematuria, abdominal pain, n/v, loss of appetite, chest pain, sob, cough, headache. PMD: [place] PMH: see hpi PSH: appendectomy, cholecystectomy, hysterectomy Allergies: nkda Meds: see med rec Past History - Past Medical History Allergies/Adverse Reactions: Allergies Allergy/AdvReac Type Severity Reaction Status Date / Time No Known Allergies Allergy Verified 07/11/18 16:55 Home Medications: Ambulatory Orders Albuterol Sulfate Inhaler - [Ventolin HFA Inhaler -] 2 inh IH Q6H PRN #0 inh 04/27 Acetaminophen [Tylenol .Regular Strength -] 650 mg PO Q6H PRN #240 tablet Digoxin [Lanoxin -] 0.125 mg PO AM 09/24/17 Albuterol 0.083% Nebulizer Bonnie [Ventolin 0.083% Nebulizer Soln -] 1 amp NEB Q4H PRN amp 10/02/17 Arformoterol Tartrate [Brovana -] 1 amp NEB RBID amp 10/02/17 Insulin Sliding Scale [Novolog Vial Sliding Scale -] 1 vial SQ TIDAC units Tiotropium [place] [Spiriva] 1 puff IH DAILY inh 10/02/17 Gabapentin [Neurontin -] 100 mg PO TID 04/02/18 Mometasone Furoate [Asmanex 220Mcg -] 1 puff IH DAILY inhaler 04/10/18 Allopurinol [Zyloprim -] 100 mg PO AM 07/11/18 Cefuroxime Axetil [Cefuroxime] 500 mg PO BID 07/11/18 Diltiazem Cd [Cardizem Cd -] 180 mg PO AM 07/11/18 Furosemide [Lasix -] 40 mg PO BID 07/11/18 Glimepiride [Glimepiride -] 1 mg PO AM 07/11/18 Levothyroxine [Synthroid -] 50 mcg PO AM 07/11/18 Losartan Potassium [Cozaar -] 25 mg PO AM 07/11/18 Potassium Chloride [K-Dur -] 20 meq PO AM 07/11/18 Warfarin Na [Coumadin -] 2.5 mg PO HS 07/11/18 predniSONE [Deltasone -] 20 mg PO AM 07/11/18 Anemia: No Asthma: Yes Cancer: No Cardiac Disorders: Yes (ATRIAL FIBRILLATION) CVA: No COPD: Yes CHF: Yes DVT: No Dementia: Yes Diabetes: Yes GI Disorders: (HIATAL HERNIA, OBSTRUCTION) Disorders: Yes (uti) HTN: Yes Hypercholesterolemia: Yes Liver Disease: No Seizures: No Thyroid Disease: Yes (HYPO) - Surgical History Abdominal Surgery: Yes (HERNIA REPAIR X 3) Appendectomy: Yes (RUPTURED) Cardiac Surgery: Yes (cardioversion x 2) Cholecystectomy: Yes Lung Surgery: No Neurologic Surgery: No Orthopedic Surgery: No - Immunization History Immunization Up to Date: Yes - Suicide/Smoking/Psychosocial Hx Smoking Status: No Smoking History: Never smoked Have you smoked in the past 12 months: No Number of Cigarettes Smoked Daily: 0 If you are a former smoker, when did you quit?: 2008 Cigars Per Day: 20 Information on smoking cessation initiated: No Hx Alcohol Use: No Drug/Substance Use Hx: No Substance Use Type: None Hx Substance Use Treatment: No Review of Systems - Review of Systems Constitutional: Yes: Chills. No: Fever HEENTM: No: Symptoms Reported Respiratory: No: Cough, Shortness of Breath, Hemoptysis Cardiac (ROS): No: Chest Pain, Lightheadedness, Palpitations, Syncope ABD/GI: Yes: Diarrhea. No: Constipated, Nausea, Poor Appetite, Rectal Bleeding , Vomiting, Abdominal cramping, Tarry Stools : Yes: Burning, Dysuria, Frequency. No: Flank Pain, Hematuria Musculoskeletal: No: Back Pain, Joint Pain, Neck Pain Integumentary: No: Symptoms Reported Neurological: No: Headache, Numbness, Tingling *Physical Exam - Vital Signs Last Vital Signs Temp Pulse Resp BP Pulse Ox 98.4 F 88 18 98/43 L 95 07/11/18 16:57 07/11/18 16:57 07/11/18 16:57 07/11/18 16:57 07/11/18 16:57 - Physical Exam General Appearance: Yes: Appropriately Dressed, Obese. No: Apparent Distress HEENT: positive: EOMI, JAMEL Neck: positive: Trachea midline, Supple. negative: Lymphadenopathy (R), Lymphadenopathy (L) Respiratory/Chest: positive: Lungs Clear, Normal Breath Sounds. negative: Crackles, Rales, Rhonchi, Stridor Cardiovascular: positive: Regular Rhythm, Regular Rate, S1, S2. negative: Edema , JVD Vascular Pulses: Carotid (R): 2+, Carotid (L): 2+, Dorsalis-Pedis (R): 2+, Doralis-Pedis (L): 2+ Gastrointestinal/Abdominal: positive: Normal Bowel Sounds, Soft, Other (pannus with chronic skin changes). negative: Guarding, Rebound, Tenderness Musculoskeletal: positive: CVA Tenderness (R). negative: CVA Tenderness (L) Extremity: positive: Normal Capillary Refill, Swelling, Other (chronic swelling with skin changes. rachel wrapped) Integumentary: positive: Normal Color, Dry, Warm. negative: Erythema, Pale, Cold, Clammy, Rash Neurologic: positive: chaser helper II-XII NML intact, Fully Oriented, Alert, Normal Mood/ Affect, Normal Response, Motor Strength 5/5 ED Treatment Course - LABORATORY CBC & Chemistry Diagram: 07/11/18 18:30 07/11/18 18:30 Medical Decision Making - Medical Decision Making 07/11/18 18:35 Pt is a 83yo f with PMH of DM, HTN, HLD, Afib (on coumadin), COPD presenting to ED with complaints of urinary frequency and burning. Vitals: hypotensive (90s/40s), normocardic, saturating well on RA PE: R flank tenderness DDx: uti v. pyelo. Low suspicion for abdominal pathology given pt not complaining of abdominal symptoms. cbc, cmp, ua, ucx, ekg, trop ordered. EKG: afib, no linh or depressions. Labs significant for 3+LE and >1000 WBC in urine. no white count, Cr 1.0 admitting diagnosis uti v. pyelo. Pt admitted to Dr. Mercado *DC/Admit/Observation/Transfer Diagnosis at time of Disposition: UTI (urinary tract infection) Qualifiers: Urinary tract infection type: site unspecified Hematuria presence: without hematuria Qualified Code(s): N39.0 - Urinary tract infection, site not specified - Discharge Dispostion Condition at time of disposition: Stable Decision to Admit order: Yes - Referrals - Patient Instructions - Post Discharge Activity
--- NOTE | 2018-07-11 18:37 | PDOC ---
Attending Attestation - Resident Resident Name: Shari Cali - ED Attending Attestation I have performed the following: I have examined & evaluated the patient, The case was reviewed & discussed with the resident, I agree w/resident's findings & plan, Exceptions are as noted - HPI HPI: 07/11/18 20:26 Ms Hanley is an 83 yo F h/o DM, HTN, HLD, Afib (on coumadin), COPD presenting to ED with complaints of urinary frequency and burning. Pt states she can't even estimate how long she has had these symptoms She just returned from rehab 10 days ago (she was there due to bilateral lower extremity ulcers) She has had no fevers She notes left flank pain No hematuria She has had lower abdominal pain (+) diarrhea 2 days ago - Physicial Exam PE: 07/11/18 20:31 GENERAL: The patient is in no acute distress, seated in wheelchair HEAD: Normal with no signs of trauma. EYES: PERRLA, EOMI, sclera anicteric, conjunctiva clear. ENT: Ears normal, nares patent, oropharynx clear without exudates. Moist mucous membranes. LUNGS: Breath sounds equal, clear HEART: Irregularly irregular, ABDOMEN: Soft, lower abdominal tenderness EXTREMITIES: Normal range of motion, no edema. bilateral lower extremity ulcers , dressed NEUROLOGICAL: Cranial nerves II through XII grossly intact. Normal speech. No focal neurological deficits. SKIN: chronic lower extremity wounds, wrapped 07/11/18 20:34 - Medical Decision Making 07/11/18 20:32 Of note, pt BP low (map 61) I have discussed this with the patient She states her blood pressures have been running low (at [facility]) I have attempted to get this patient out of the wheelchair and to the stretcher , she refuses 07/11/18 20:34 Laboratory Tests 07/11/18 07/11/18 18:20 18:30 WBC 9.5 Neutrophils % 87.7 H D Urine Blood 1+ H Urine Nitrite Negative Ur Leukocyte Esterase 3+ H Urine WBC (Auto) 1127 Urine RBC (Auto) 3 Will give Ceftriaxone Will IV hydrate Recheck BP Admit clinical impression: UTI, initial presentation Pyelonephritis, initial presentation 07/11/18 20:34 EKG: Afib rate of 68 bpm, right axis deviation, RBBB, no st changes
[2018-07-11] MEDS ORDERED: SODIUM CHLORIDE 1,000 ML IV STA (18:39)
[2018-07-11 18:42] LABS: BASO % 0.3 % (0-2.0); EOS % 0.1 % (0-4.5); HEMOGLOBIN 13.1 GM/dL (10.7-15.3); LYMPH % 8.8 % (8-40); MCH 26.6 pg (25.7-33.7); MCHC 32.1 g/dl (32.0-36.0); MEAN CELL VOLUME 82.9 fl (80-96); MEAN PLT VOLUME 8.2 fl (7.5-11.1); MONO % 3.1 % (3.8-10.2); NEUT % 87.7 % (42.8-82.8); PLATELET COUNT 242 K/MM3 (134-434); RBC 4.94 M/mm3 (3.60-5.2); RDW 20.7 % (11.6-15.6); WHITE BLOOD COUNT 9.5 K/mm3 (4.0-10.0)
[2018-07-11 18:46] LABS: URINE APPEARANCE CLOUDY; URINE BILIRUBIN NEGATIVE (<2.0 mg/dL); URINE COLOR YELLOW; URINE GLUCOSE (UA) NEGATIVE (NEGATIVE); URINE KETONE NEGATIVE (NEGATIVE); URINE LEUK ESTERASE 3+ (NEGATIVE); URINE NITRITE NEGATIVE (NEGATIVE); URINE PROTEIN NEGATIVE (NEGATIVE); URINE UROBILINOGEN NEGATIVE mg/dL (0.2-1.0)
[2018-07-11 18:52] LABS: EPI CELLS RARE /HPF (FEW)
[2018-07-11] MEDS ORDERED: CEFTRIAXONE 1 GM in DEXTROSE 5%-WATER - 100 ML IVPB ONE (19:03)
[2018-07-11 19:15] LABS: ALBUMIN 3.2 g/dl (3.4-5.0); ALK PHOS 96 U/L (45-117); ANION GAP 10 MMOL/L (8-16); BILIRUBIN,TOTAL 1.1 mg/dL (0.2-1); BLOOD UREA NITROGEN 23 mg/dL (7-18); CALCIUM 8.6 mg/dL (8.5-10.1); CHLORIDE 104 mmol/L (98-107); CO2 28 mmol/L (21-32); GLUCOSE,RANDOM 212 mg/dL (74-106); POTASSIUM 3.1 mmol/L (3.5-5.1); SGOT/AST 20 U/L (15-37); SGPT/ALT 18 U/L (13-61); SODIUM 141 mmol/L (136-145); TOT PROT 6.2 g/dl (6.4-8.2)
[2018-07-11] MEDS ORDERED: cefTRIAXone SODIUM 1 GM VIAL ONE (19:18)
[2018-07-11 19:36] LABS: INR 2.07 (0.83-1.09); PROTHROMBIN TIME (PATIENT) 24.6 SEC (9.7-13.0)
[2018-07-11] MEDS ORDERED: ALBUTEROL SO4 8 GM HFA INHALER IH PRN (19:48)
[2018-07-11] MEDS ORDERED: ALBUTEROL SO4 0.083% IH SOL 2.5 MG/3 ML VIAL.NEB. NEB PRN (19:48)
[2018-07-11] MEDS: INSULIN SLIDING SCALE (NOVOLOG) 1 VIAL SQ SCH (21:10)
[2018-07-11] MEDS ORDERED: GABAPENTIN 100 MG CAPSULE (FP) ONE (21:17)
[2018-07-11] MEDS: GABAPENTIN 100 MG CAPSULE (FP) PO SCH (22:00)
[2018-07-12] MEDS ORDERED: POTASSIUM CHLORIDE TABS 20 MEQ TABLET.ER (FP) PO ONE ×3 (01:38→01:45)
[2018-07-12] MEDS: LEVOTHYROXINE NA 50 MCG TABLET (FP) PO SCH (06:16)
[2018-07-12] MEDS: INSULIN SLIDING SCALE (NOVOLOG) 1 VIAL SQ SCH ×3 (06:16→17:17)
[2018-07-12] MEDS: GABAPENTIN 100 MG CAPSULE (FP) PO SCH ×3 (06:16→22:51)
[2018-07-12 08:06] LABS: EOS % 2.5 % (0-4.5); HEMOGLOBIN 11.8 GM/dL (10.7-15.3); MCH 26.4 pg (25.7-33.7); MCHC 31.8 g/dl (32.0-36.0); MEAN CELL VOLUME 82.9 fl (80-96); MEAN PLT VOLUME 8.6 fl (7.5-11.1); MONO % 7.9 % (3.8-10.2); NEUT % 63.6 % (42.8-82.8); PLATELET COUNT 216 K/MM3 (134-434); RBC 4.47 M/mm3 (3.60-5.2); RDW 20.3 % (11.6-15.6); WHITE BLOOD COUNT 8.1 K/mm3 (4.0-10.0)
[2018-07-12 08:18] LABS: INR 1.8 (0.83-1.09); PROTHROMBIN TIME (PATIENT) 21.4 SEC (9.7-13.0)
[2018-07-12] MEDS: ARFORMOTEROL TARTRATE 15 MCG/2 ML VIAL NEB SCH ×2 (08:50→20:31)
[2018-07-12 09:25] LABS: ALBUMIN 2.7 g/dl (3.4-5.0); ALK PHOS 77 U/L (45-117); ANION GAP 13 MMOL/L (8-16); BILIRUBIN,TOTAL 0.8 mg/dL (0.2-1); BLOOD UREA NITROGEN 21 mg/dL (7-18); CALCIUM 8.6 mg/dL (8.5-10.1); CHLORIDE 107 mmol/L (98-107); CO2 26 mmol/L (21-32); CREATININE 0.7 mg/dL (0.55-1.3); GLUCOSE,RANDOM 112 mg/dL (74-106); POTASSIUM 3.1 mmol/L (3.5-5.1); SGOT/AST 15 U/L (15-37); SGPT/ALT 15 U/L (13-61); SODIUM 146 mmol/L (136-145); TOT PROT 5.3 g/dl (6.4-8.2)
--- NOTE | 2018-07-12 09:55 | HP ---
Admitting History and Physical - Primary Care Physician PCP: Xavi Storey - Admission Chief Complaint: Dysuria History of Present Illness: 83 yrs old F multiple medical Co-morbidities H/O Morbid Obesity, COPD, HTN, Afib rate controlled on AC, KATERINA, T2DM poorly controlled , multiple wound infection with resistent organism in the past , patient has been having burning micturtaion, PMD prescribed Cefuroxime that she took for 2 days remained symptomatic so came to [facility] for evaluation, c/o severe burning micturation, suprapubic pain no fever, chills, nausea, vomiting or diarrhea denies any CVa Pain or tenderness. UA + WBC > 1K admitted for IV abx as she failed out patient treatment. - Past Medical History Cardiovascular: Yes: AFIB, CHF, Deep Vein Thrombosis, HTN, Hyperlipdemia Pulmonary: Yes: Asthma, COPD, O2 Dependent Gastrointestinal: Yes: Hiatal Hernia Infectious Disease: Yes: MRSA, VREF Musculoskeletal: Yes: Osteoarthritis Endocrine: Yes: Diabetes Mellitus, Hypothyroidism Dermatology: Yes: Cellulitis, Eczema - Past Surgical History Past Surgical History: Yes: Appendectomy, Cholecystectomy, Hernia Repair (times three), Oopherectomy, Tonsillectomy - Smoking History Smoking history: Never smoked Have you smoked in the past 12 months: No Aproximately how many cigarettes per day: 0 If you are a former smoker, when did you quit?: 2007 - Alcohol/Substance Use Hx Alcohol Use: No History of Substance Use: reports: None - Social History ADL: Independent History of Recent Travel: No Home Medications - Allergies Allergies/Adverse Reactions: Allergies Allergy/AdvReac Type Severity Reaction Status Date / Time No Known Allergies Allergy Verified 07/11/18 16:55 - Home Medications Home Medications: Ambulatory Orders Albuterol Sulfate Inhaler - [Ventolin HFA Inhaler -] 2 inh IH Q6H PRN #0 inh 04/27 Acetaminophen [Tylenol .Regular Strength -] 650 mg PO Q6H PRN #240 tablet Digoxin [Lanoxin -] 0.125 mg PO AM 09/24/17 Albuterol 0.083% Nebulizer Bonnie [Ventolin 0.083% Nebulizer Soln -] 1 amp NEB Q4H PRN amp 10/02/17 Arformoterol Tartrate [Brovana -] 1 amp NEB RBID amp 10/02/17 Insulin Sliding Scale [Novolog Vial Sliding Scale -] 1 vial SQ TIDAC units Tiotropium [place] [Spiriva] 1 puff IH DAILY inh 10/02/17 Gabapentin [Neurontin -] 100 mg PO TID 04/02/18 Mometasone Furoate [Asmanex 220Mcg -] 1 puff IH DAILY inhaler 04/10/18 Allopurinol [Zyloprim -] 100 mg PO AM 07/11/18 Cefuroxime Axetil [Cefuroxime] 500 mg PO BID 07/11/18 Diltiazem Cd [Cardizem Cd -] 180 mg PO AM 07/11/18 Furosemide [Lasix -] 40 mg PO BID 07/11/18 Glimepiride [Glimepiride -] 1 mg PO AM 07/11/18 Levothyroxine [Synthroid -] 50 mcg PO AM 07/11/18 Losartan Potassium [Cozaar -] 25 mg PO AM 07/11/18 Potassium Chloride [K-Dur -] 20 meq PO AM 07/11/18 Warfarin Na [Coumadin -] 2.5 mg PO HS 07/11/18 predniSONE [Deltasone -] 20 mg PO AM 07/11/18 Family Disease History - Family Disease History Family Disease History: Heart Disease: Mother ([place]), Other: Father (ETOH cirrhosis), Sister (alive and well) Review of Systems - Review of Systems Constitutional: denies: Chills, Diaphoresis, Lethargy Eyes: denies: Blind Spots, Blurred Vision, Double Vision, Eye Pain HENT: denies: Difficult Swallowing, Ear Discharge, Ear Pain, Epistaxis Neck: denies: Decreased ROM, Lumps, Pain on Movement, Stiffness Cardiovascular: reports: Edema. denies: Chest Pain, Palpitations, Shortness of Breath Respiratory: denies: Cough, Exercise Intolerance, Hemoptysis Gastrointestinal: denies: Abdominal Pain, Bloating, Constipation Genitourinary: reports: Burning, Dysuria, Frequency. denies: Flank Pain Musculoskeletal: reports: Back Pain. denies: Crepitus, Decreased ROM Integumentary: denies: Blister, Bruising Neurological: denies: Change in LOC, Change in Speech, Confusion Physical Examination Vital Signs: Vital Signs Temperature 97.8 F 07/12/18 03:34 Pulse Rate 65 07/12/18 03:34 Respiratory Rate 18 07/12/18 09:00 Blood Pressure 95/48 L 07/12/18 03:34 O2 Sat by Pulse Oximetry (%) 95 07/12/18 09:00 Constitutional: No Distress HEENT: Atraumatic, NormocephalicConjunctiva Clear, EOM Intact, PERRL. No: Sclera Icterus Neck: Trachea Midline. No: Decreased ROM, Lymphadenopathy Cardiovascular: Pulse Irregular, S1, S2. No: JVD Respiratory: Yes: On Nasal O2, Rales Gastrointestinal: : Normal Bowel Sounds, Soft Extremities: Other (Chronic Venous stasis and Ulcers) Neurological: Alert, Oriented, Motor Strength: WNL, LUE, LLE, RUE, RLE Labs: CBC, BMP 07/12/18 07:49 07/12/18 07:49 Imaging - Results Chest X-ray: Report Reviewed (No interval chnages) EKG: Report Reviewed (No acute St t changes) Problem List - Problems (1) UTI (urinary tract infection) Assessment/Plan: Present with Rt sided flank pain with burning micturation, afebrile TWBC normal will Cont Ceftriaxone IV Hydration F/U ID recommondations Code(s): N39.0 - URINARY TRACT INFECTION, SITE NOT SPECIFIED Qualifiers: Urinary tract infection type: site unspecified Hematuria presence: without hematuria Qualified Code(s): N39.0 - Urinary tract infection, site not specified (2) Atrial fibrillation Assessment/Plan: Rate controlled on AC cont Coumadin at home dose HF/U INR Code(s): I48.91 - UNSPECIFIED ATRIAL FIBRILLATION Qualifiers: Atrial fibrillation type: chronic Qualified Code(s): I48.2 - Chronic atrial fibrillation (3) CHF (congestive heart failure) Assessment/Plan: Compensated cont all home meds Code(s): I50.9 - HEART FAILURE, UNSPECIFIED (4) COPD (chronic obstructive pulmonary disease) Assessment/Plan: H/O COPD on Po prednisone Symbicort and Duoneb will cont same Code(s): J44.9 - CHRONIC OBSTRUCTIVE PULMONARY DISEASE, UNSPECIFIED Qualifiers: COPD type: unspecified COPD Qualified Code(s): J44.9 - Chronic obstructive pulmonary disease, unspecified (5) Chronic venous stasis dermatitis of both lower extremities Assessment/Plan: Wound care Code(s): I87.2 - VENOUS INSUFFICIENCY (CHRONIC) (PERIPHERAL) (6) Diabetes Assessment/Plan: Hold Po meds cont correction dose insulin Code(s): E11.9 - TYPE 2 DIABETES MELLITUS WITHOUT COMPLICATIONS Qualifiers: Diabetes mellitus type: type 2 Diabetes mellitus termite renewal inspector insulin use: without termite renewal inspector use Diabetes mellitus complication status: with hyperglycemia Qualified Code(s): E11.65 - Type 2 diabetes mellitus with hyperglycemia (7) Hypokalemia Assessment/Plan: Replete K F/U BMP and Mag Code(s): E87.6 - HYPOKALEMIA (8) Morbid obesity with BMI of 45.0-49.9, adult Assessment/Plan: nutrition consult as out patient Code(s): E66.01 - MORBID (SEVERE) OBESITY DUE TO EXCESS CALORIES; Z68.42 - BODY MASS INDEX (BMI) 45.0-49.9, ADULT
[2018-07-12] MEDS ORDERED: POTASSIUM CHLORIDE ORAL LIQUID 20 MEQ/15 ML PO ONE (09:58)
[2018-07-12] MEDS ORDERED: POTASSIUM CHLORIDE TABS 20 MEQ TABLET.ER (FP) PO SCH (10:00)
[2018-07-12] MEDS ORDERED: CEFTRIAXONE 1 GM in DEXTROSE 5%-WATER - 50 ML IVPB SCH (10:00)
[2018-07-12] MEDS ORDERED: cefTRIAXone SODIUM 1 GM VIAL ONE (10:05)
[2018-07-12] MEDS ORDERED: DEXTROSE 5%-WATER - 50 ML IVPB ONE ×2 (10:05→16:27)
[2018-07-12] MEDS: predniSONE 20 MG TABLET (UD) PO SCH (10:08)
[2018-07-12] MEDS: DIGOXIN 0.125 MG TABLET (FP) PO SCH (10:08)
[2018-07-12] MEDS: LOSARTAN POTASSIUM 25 MG TABLET PO SCH (10:08)
[2018-07-12] MEDS: ALLOPURINOL 100 MG TABLET (FP) PO SCH (10:08)
--- NOTE | 2018-07-12 14:00 | EKG ---
Test Reason : Blood Pressure : / mmHG Vent. Rate : 068 BPM Atrial Rate : 055 BPM P-R Int : 000 ms QRS Dur : 128 ms QT Int : 410 ms P-R-T Axes : 000 078 010 degrees QTc Int : 435 ms POOR DATA QUALITY, INTERPRETATION MAY BE ADVERSELY AFFECTED ATRIAL FIBRILLATION RIGHT BUNDLE BRANCH BLOCK SEPTAL INFARCT , AGE UNDETERMINED ABNORMAL ECG WHEN COMPARED WITH ECG OF 02-APR-2018 18:11, VENT. RATE HAS DECREASED BY 34 BPM SEPTAL INFARCT IS NOW PRESENT Confirmed by MD Miladis, Kamran ([id number]) on 07/12/2018 2:00:34 PM Referred By: Confirmed By:Kamran Redding MD
--- NOTE | 2018-07-12 14:59 | PN ---
Progress Note (short form) - Note Progress Note: ID Consult UTI R/O sepsis secondary to UTI Toxic metabolic encephalopathy Pending c/s empiric zosyn
[2018-07-12] MEDS ORDERED: PIPERACILLIN/TAZOBACTAM 3.375 GM VIAL IVPB ONE (16:26)
[2018-07-12] MEDS: PIPERACILLIN/TAZOB 3.375 GM 3.375 GM in DEXTROSE 5%-WATER - 50 ML IVPB SCH ×2 (16:43→17:11)
[2018-07-12] MEDS ORDERED: WARFARIN NA 2.5 MG TABLET (FP) PO SCH (18:00)
[2018-07-12] MEDS: MOMETASONE FUROATE 220 MCG/IH INHALER IH SCH (22:51)
[2018-07-13] MEDS ORDERED: PIPERACILLIN/TAZOBACTAM 3.375 GM VIAL IVPB ONE ×3 (01:38→18:07)
[2018-07-13] MEDS ORDERED: DEXTROSE 5%-WATER - 50 ML IVPB ONE ×3 (01:39→18:07)
[2018-07-13] MEDS: PIPERACILLIN/TAZOB 3.375 GM 3.375 GM in DEXTROSE 5%-WATER - 50 ML IVPB SCH ×3 (01:45→18:21)
[2018-07-13] MEDS: INSULIN SLIDING SCALE (NOVOLOG) 1 VIAL SQ SCH ×3 (06:35→18:22)
[2018-07-13] MEDS: GABAPENTIN 100 MG CAPSULE (FP) PO SCH ×3 (06:35→21:05)
[2018-07-13] MEDS: LEVOTHYROXINE NA 50 MCG TABLET (FP) PO SCH (06:35)
[2018-07-13] MEDS: ARFORMOTEROL TARTRATE 15 MCG/2 ML VIAL NEB SCH ×2 (08:31→20:25)
--- NOTE | 2018-07-13 09:39 | PN ---
Progress Note (short form) - Note Progress Note: Dr. Garcia to document today. Patient usually on Coumadin 4 mg 6 days a week as outpt. UTI now on IV antibiotics. ? Role of Abdominal pannus in its position over the pubic area. Patient has been told for years to consider surgery but has always delayed the decision. Was in SNF for months and still having mobility issues exacerbated by severe DJD knees.
--- NOTE | 2018-07-13 10:21 | PN ---
Progress Note, Physician Chief Complaint: Pt sitting in chair in no acute distress. reports mild supra pubic burning pain. Otherwise, denies any chest pain, sob, n/v/d - Current Medication List Current Medications: Active Medications Acetaminophen (Tylenol -) 650 mg PO Q6H PRN PRN Reason: PAIN LEVEL 1 - 3 Albuterol Sulfate (Ventolin 0.083% Nebulizer Soln -) 1 amp NEB Q4H PRN PRN Reason: SHORT OF BREATH/WHEEZING Albuterol Sulfate (Ventolin Hfa Inhaler -) 2 puff IH Q6H PRN PRN Reason: SHORTNESS OF BREATH Allopurinol (Zyloprim -) 100 mg PO DAILY [facility] Last Admin: 07/12/18 10:08 Dose: 100 mg Arformoterol Tartrate (Brovana (Restricted To Pulmonology/Resp) -) 1 amp NEB RBID [facility] Last Admin: 07/13/18 08:31 Dose: 1 amp Digoxin (Lanoxin -) 0.125 mg PO DAILY [facility] Last Admin: 07/12/18 10:08 Dose: 0.125 mg Diltiazem HCl (Cardizem Cd -) 180 mg PO DAILY [facility] Last Admin: 07/12/18 10:08 Dose: 180 mg Gabapentin (Neurontin -) 100 mg PO TID [facility] Last Admin: 07/13/18 06:35 Dose: 100 mg Piperacillin Sod/Tazobactam (Sod 3.375 gm/ Dextrose) 50 mls @ 100 mls/hr IVPB Q8H-IV [facility]; Protocol Last Admin: 07/13/18 01:45 Dose: 100 mls/hr Insulin Aspart (Novolog Vial Sliding Scale -) 1 vial SQ TIDAC [facility]; Protocol Last Admin: 07/13/18 06:35 Dose: Not Given Levothyroxine Sodium (Synthroid -) 50 mcg PO DAILY@0700 [facility] Last Admin: 07/13/18 06:35 Dose: 50 mcg Losartan Potassium (Cozaar -) 25 mg PO DAILY [facility] Last Admin: 07/12/18 10:08 Dose: 25 mg Mometasone Furoate (Asmanex 220mcg -) 1 puff IH HS [facility] Last Admin: 07/12/18 22:51 Dose: 1 puff Prednisone (Deltasone -) 20 mg PO DAILY [facility] Last Admin: 07/12/18 10:08 Dose: 20 mg Warfarin Sodium (Coumadin -) 2.5 mg PO DAILY@1800 [facility] Last Admin: 07/12/18 17:12 Dose: 2.5 mg - Objective Vital Signs: Vital Signs Temperature 97.7 F 07/13/18 08:52 Pulse Rate 83 07/13/18 08:52 Respiratory Rate 17 07/13/18 08:52 Blood Pressure 128/64 07/13/18 08:52 O2 Sat by Pulse Oximetry (%) 95 07/12/18 19:50 Constitutional: Yes: Well Nourished, No Distress, Calm Cardiovascular: Yes: Regular Rate and Rhythm Respiratory: Yes: WNL, Regular, CTA Bilaterally. No: Accessory Muscle Use, Rhonchi, SOB, Tachypnea, Wheezes Gastrointestinal: Yes: WNL, Normal Bowel Sounds, Soft, Abdomen, Obese. No: Distention, Tenderness Genitourinary: Yes: WNL, CVA Tenderness - Right (mild) Musculoskeletal: Yes: WNL Integumentary: Yes: Venous Stasis Changes Neurological: Yes: WNL, Alert, Oriented Psychiatric: Yes: WNL, Alert, Oriented Labs: CBC, BMP 07/12/18 07:49 07/12/18 07:49 INR, PTT INR 1.80 (0.83-1.09) H 07/12/18 07:49 Assessment/Plan (1) UTI (urinary tract infection) Assessment/Plan: failed outpt management UA+, UC pending Zosyn day 2 ID following Code(s): N39.0 - URINARY TRACT INFECTION, SITE NOT SPECIFIED Qualifiers: Urinary tract infection type: acute cystitis Hematuria presence: with hematuria Qualified Code(s): N30.01 - Acute cystitis with hematuria (2) COPD (chronic obstructive pulmonary disease) Assessment/Plan: stable not in exacerbation continue home regimen Code(s): J44.9 - CHRONIC OBSTRUCTIVE PULMONARY DISEASE, UNSPECIFIED Qualifiers: COPD type: unspecified COPD Qualified Code(s): J44.9 - Chronic obstructive pulmonary disease, unspecified (3) Atrial fibrillation Assessment/Plan: rate controlled continue diltiazem, digoxin INR subtherapeutic coumadin 3mg tonight Code(s): I48.91 - UNSPECIFIED ATRIAL FIBRILLATION Qualifiers: Atrial fibrillation type: chronic Qualified Code(s): I48.2 - Chronic atrial fibrillation (4) CHF (congestive heart failure) Assessment/Plan: chronic, euvolemic continue lasix 40mg bid Code(s): I50.9 - HEART FAILURE, UNSPECIFIED Qualifiers: Qualified Code(s): I50.32 - Chronic diastolic (congestive) heart failure (5) Chronic wound of extremity Assessment/Plan: chronic b/l stasis dermatitis Code(s): [id number] - (6) Diabetes Assessment/Plan: stable bgm insulin sliding scale continue amaryl Code(s): E11.9 - TYPE 2 DIABETES MELLITUS WITHOUT COMPLICATIONS Qualifiers: Diabetes mellitus type: type 2 Diabetes mellitus fdc insulin use: without dimensional integration engineer use Diabetes mellitus complication status: with hyperglycemia Qualified Code(s): E11.65 - Type 2 diabetes mellitus with hyperglycemia (7) HTN (hypertension) Assessment/Plan: controlled continue home meds Code(s): I10 - ESSENTIAL (PRIMARY) HYPERTENSION Qualifiers: Hypertension type: essential hypertension Qualified Code(s): I10 - Essential (primary) hypertension (8) Hypothyroidism Assessment/Plan: stable continue levothyroxine Code(s): E03.9 - HYPOTHYROIDISM, UNSPECIFIED (9) Morbid obesity Assessment/Plan: outpt management Code(s): E66.01 - MORBID (SEVERE) OBESITY DUE TO EXCESS CALORIES (10) Hypokalemia Assessment/Plan: po kcl 40meq x 3 monitor bmp Code(s): E87.6 - HYPOKALEMIA
[2018-07-13] MEDS: predniSONE 20 MG TABLET (UD) PO SCH (10:41)
[2018-07-13] MEDS: DIGOXIN 0.125 MG TABLET (FP) PO SCH (10:41)
[2018-07-13] MEDS: LOSARTAN POTASSIUM 25 MG TABLET PO SCH (10:41)
[2018-07-13] MEDS: ALLOPURINOL 100 MG TABLET (FP) PO SCH (10:42)
[2018-07-13 10:49] LABS: BASO % 1.2 % (0-2.0); EOS % 4.1 % (0-4.5); HEMATOCRIT 39.3 % (32.4-45.2); HEMOGLOBIN 12.3 GM/dL (10.7-15.3); LYMPH % 23.5 % (8-40); MCH 25.9 pg (25.7-33.7); MCHC 31.3 g/dl (32.0-36.0); MEAN CELL VOLUME 82.8 fl (80-96); MEAN PLT VOLUME 7.9 fl (7.5-11.1); NEUT % 64.2 % (42.8-82.8); PLATELET COUNT 222 K/MM3 (134-434); RBC 4.74 M/mm3 (3.60-5.2); RDW 20.3 % (11.6-15.6); WHITE BLOOD COUNT 10.6 K/mm3 (4.0-10.0)
[2018-07-13 11:14] LABS: INR 1.44 (0.83-1.09)
[2018-07-13 11:28] LABS: ANION GAP 8 MMOL/L (8-16); BLOOD UREA NITROGEN 21 mg/dL (7-18); CALCIUM 9.2 mg/dL (8.5-10.1); CHLORIDE 104 mmol/L (98-107); CO2 29 mmol/L (21-32); CREATININE 0.7 mg/dL (0.55-1.3); GLUCOSE,RANDOM 121 mg/dL (74-106); POTASSIUM 3.3 mmol/L (3.5-5.1); SODIUM 142 mmol/L (136-145)
[2018-07-13] MEDS: POTASSIUM CHLORIDE ORAL LIQUID 20 MEQ/15 ML PO SCH ×2 (12:07→21:05)
[2018-07-13] MEDS: FUROSEMIDE 40 MG TABLET (FP) PO SCH (14:34)
--- NOTE | 2018-07-13 15:18 | PN ---
Progress Note, Physician History of Present Illness: Seems slightly confused today Reports persistant mild dysuria No fever/ chills BC (-) Urine c/s contaminated - Current Medication List Current Medications: Active Medications Acetaminophen (Tylenol -) 650 mg PO Q6H PRN PRN Reason: PAIN LEVEL 1 - 3 Albuterol Sulfate (Ventolin 0.083% Nebulizer Soln -) 1 amp NEB Q4H PRN PRN Reason: SHORT OF BREATH/WHEEZING Albuterol Sulfate (Ventolin Hfa Inhaler -) 2 puff IH Q6H PRN PRN Reason: SHORTNESS OF BREATH Allopurinol (Zyloprim -) 100 mg PO DAILY [facility] Last Admin: 07/13/18 10:42 Dose: 100 mg Arformoterol Tartrate (Brovana (Restricted To Pulmonology/Resp) -) 1 amp NEB RBID [facility] Last Admin: 07/13/18 08:31 Dose: 1 amp Digoxin (Lanoxin -) 0.125 mg PO DAILY [facility] Last Admin: 07/13/18 10:41 Dose: 0.125 mg Diltiazem HCl (Cardizem Cd -) 180 mg PO DAILY [facility] Last Admin: 07/13/18 10:36 Dose: 180 mg Furosemide (Lasix -) 40 mg PO BIDLASIX [facility] Last Admin: 07/13/18 14:34 Dose: 40 mg Gabapentin (Neurontin -) 100 mg PO TID [facility] Last Admin: 07/13/18 14:34 Dose: 100 mg Glimepiride (Amaryl -) 1 mg PO AM [facility] Piperacillin Sod/Tazobactam (Sod 3.375 gm/ Dextrose) 50 mls @ 100 mls/hr IVPB Q8H-IV [facility]; Protocol Last Admin: 07/13/18 10:40 Dose: 100 mls/hr Insulin Aspart (Novolog Vial Sliding Scale -) 1 vial SQ TIDAC [facility]; Protocol Last Admin: 07/13/18 11:57 Dose: Not Given Levothyroxine Sodium (Synthroid -) 50 mcg PO DAILY@0700 [facility] Last Admin: 07/13/18 06:35 Dose: 50 mcg Losartan Potassium (Cozaar -) 25 mg PO DAILY [facility] Last Admin: 07/13/18 10:41 Dose: 25 mg Mometasone Furoate (Asmanex 220mcg -) 1 puff IH HS [facility] Last Admin: 07/12/18 22:51 Dose: 1 puff Potassium Chloride (Potassium Chloride Oral Liquid) 40 meq PO BID [facility] Stop: 07/14/18 10:01 Last Admin: 07/13/18 12:07 Dose: 40 meq Prednisone (Deltasone -) 20 mg PO DAILY [facility] Last Admin: 07/13/18 10:41 Dose: 20 mg Warfarin Sodium (Coumadin -) 3 mg PO DAILY@1800 [facility] - Objective Vital Signs: Vital Signs Temperature 97.7 F 07/13/18 08:52 Pulse Rate 62 07/13/18 10:41 Respiratory Rate 17 07/13/18 08:52 Blood Pressure 128/64 07/13/18 08:52 O2 Sat by Pulse Oximetry (%) 100 07/13/18 09:00 Constitutional: Yes: No Distress, Obese Eyes: Yes: Conjunctiva Clear Cardiovascular: Yes: Regular Rate and Rhythm, S1, S2 Respiratory: Yes: Other (few crepitations at bases) Gastrointestinal: Yes: Soft, Other (+ Pannus). No: Tenderness Edema: Yes Labs: CBC, BMP 07/13/18 10:40 07/13/18 10:40 INR, PTT INR 1.44 (0.83-1.09) H 07/13/18 10:40 Assessment/Plan UTI Toxic metabolic encephalopathy Hx resistant pathogens Repeat urine c/s Continue zosyn
[2018-07-13] MEDS ORDERED: WARFARIN NA 3 MG TABLET PO SCH (18:00)
--- NOTE | 2018-07-13 19:51 | CONS ---
INFECTIOUS DISEASE CONSULTATION DATE OF CONSULTATION: DATE OF DICTATION: 07/13/2018 The patient is an 83-year-old female who is evaluated for recurrent urinary tract infection. She was admitted to the hospital on July 11, 2018, with a 2-day history of urinary frequency, dysuria, and altered mental status. According to the family member, she had become increasingly confused, which has been a hallmark of her recurrent urinary tract infections. She was seen by her primary care physician and prescribed Ceftin. Despite the antibiotic, she continued to have urinary frequency and dysuria, as well as confusion. She denies any fever or chills. She also complained of right-sided flank pain. She presented to the emergency room where she was noted to be hypotensive and also had right CVA tenderness. Cultures were obtained, and she was empirically started on IV antibiotic therapy. Urinalysis showed many white cells. 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 PAST SURGICAL HISTORY: Status post appendectomy and cholecystectomy. ALLERGIES: No known allergies. SOCIAL HISTORY: She was recently discharged from a rehab facility approximately 10 days prior to admission. She has had several recent hospital admissions in the recent past. SYSTEMS REVIEW: Neurologic: Positive for confusion. No loss of consciousness, seizure activity, or focal weakness. Cardiac: Negative chest pain or palpitations. Respiratory: Negative cough or sputum production. Gastrointestinal: Negative vomiting or diarrhea. Genitourinary: Positive for urinary tract infection. LABORATORY DATA: White count 8.1, hematocrit 37.0, platelet count 216. Creatinine 0.7. Urinalysis: White cells 1127. Blood and urine cultures are pending. Chest x-ray is pending. PHYSICAL EXAMINATION: General: She is awake and alert. She is morbidly obese. Vital Signs: Temperature 98; blood pressure 125/50; pulse 72, regular; respirations 20 per minute. HEENT: Sclerae are anicteric. Heart: Sounds S1, S2. Lungs: Scattered rhonchi bilaterally. Abdomen: Obese. There is a large pannus present with chronic stasis skin changes. Extremities: Positive for lower extremity edema bilaterally with chronic venous stasis dermatitis. Back: There is mild right CVA tenderness to palpation. IMPRESSION: 1. Urinary tract infection, rule out sepsis secondary to urinary tract infection. 2. Toxic metabolic encephalopathy. 3. Diabetes mellitus. 4. History of resistant skin pathogens. Await culture results. Empiric antibiotic coverage in this patient with multiple resistant pathogens with Zosyn 3.375 g IV piggyback every 8 hours. Await blood and urine culture results. Contact precautions. Will follow. Thank you for the kind referral. ISAAC CARRASCO M.D. [id number]
[2018-07-13] MEDS ORDERED: PT OWN MED DRAWER 7, Y5N ONE (20:27)
[2018-07-13] MEDS: MOMETASONE FUROATE 220 MCG/IH INHALER IH SCH (21:05)
[2018-07-14] MEDS ORDERED: DEXTROSE 5%-WATER - 50 ML IVPB ONE ×3 (02:19→17:21)
[2018-07-14] MEDS ORDERED: PIPERACILLIN/TAZOBACTAM 3.375 GM VIAL IVPB ONE ×3 (02:19→17:21)
[2018-07-14] MEDS: PIPERACILLIN/TAZOB 3.375 GM 3.375 GM in DEXTROSE 5%-WATER - 50 ML IVPB SCH ×3 (02:38→17:40)
[2018-07-14] MEDS ORDERED: PT OWN MED DRAWER 7, Y5N ONE (06:25)
[2018-07-14] MEDS: INSULIN SLIDING SCALE (NOVOLOG) 1 VIAL SQ SCH ×3 (06:26→17:13)
[2018-07-14] MEDS: LEVOTHYROXINE NA 50 MCG TABLET (FP) PO SCH (06:30)
[2018-07-14] MEDS: GLIMEPIRIDE 1 MG TABLET (FP) PO SCH (06:30)
[2018-07-14] MEDS: FUROSEMIDE 40 MG TABLET (FP) PO SCH ×2 (06:30→13:20)
[2018-07-14] MEDS: GABAPENTIN 100 MG CAPSULE (FP) PO SCH ×3 (06:30→21:43)
[2018-07-14 07:24] LABS: EOS % 4.3 % (0-4.5); HEMATOCRIT 34.8 % (32.4-45.2); HEMOGLOBIN 10.9 GM/dL (10.7-15.3); LYMPH % 27.6 % (8-40); MCHC 31.4 g/dl (32.0-36.0); MEAN CELL VOLUME 82.7 fl (80-96); MEAN PLT VOLUME 8.3 fl (7.5-11.1); MONO % 7.8 % (3.8-10.2); NEUT % 59.3 % (42.8-82.8); PLATELET COUNT 203 K/MM3 (134-434); RBC 4.21 M/mm3 (3.60-5.2); RDW 19.9 % (11.6-15.6); WHITE BLOOD COUNT 9.1 K/mm3 (4.0-10.0)
[2018-07-14 07:44] LABS: ANION GAP 6 MMOL/L (8-16); BLOOD UREA NITROGEN 20 mg/dL (7-18); CALCIUM 9.1 mg/dL (8.5-10.1); CHLORIDE 106 mmol/L (98-107); CO2 29 mmol/L (21-32); CREATININE 0.7 mg/dL (0.55-1.3); GLUCOSE,RANDOM 98 mg/dL (74-106); MAGNESIUM 2.1 mg/dL (1.8-2.4); POTASSIUM 3.8 mmol/L (3.5-5.1); SODIUM 142 mmol/L (136-145)
[2018-07-14] MEDS: ARFORMOTEROL TARTRATE 15 MCG/2 ML VIAL NEB SCH ×3 (08:20→19:35)
[2018-07-14] MEDS: predniSONE 20 MG TABLET (UD) PO SCH (09:48)
[2018-07-14] MEDS: POTASSIUM CHLORIDE ORAL LIQUID 20 MEQ/15 ML PO SCH (09:48)
[2018-07-14] MEDS: ALLOPURINOL 100 MG TABLET (FP) PO SCH (09:48)
[2018-07-14] MEDS: LOSARTAN POTASSIUM 25 MG TABLET PO SCH (09:48)
[2018-07-14] MEDS: DIGOXIN 0.125 MG TABLET (FP) PO SCH (09:48)
--- NOTE | 2018-07-14 12:32 | PN ---
Progress Note, Physician Chief Complaint: Pt sitting in chair in no acute distress. still w/ supra pubic burning pain. Otherwise, denies any chest pain, sob, n/v/d - Current Medication List Current Medications: Active Medications Acetaminophen (Tylenol -) 650 mg PO Q6H PRN PRN Reason: PAIN LEVEL 1 - 3 Albuterol Sulfate (Ventolin 0.083% Nebulizer Soln -) 1 amp NEB Q4H PRN PRN Reason: SHORT OF BREATH/WHEEZING Albuterol Sulfate (Ventolin Hfa Inhaler -) 2 puff IH Q6H PRN PRN Reason: SHORTNESS OF BREATH Allopurinol (Zyloprim -) 100 mg PO DAILY [facility] Last Admin: 07/14/18 09:48 Dose: 100 mg Arformoterol Tartrate (Brovana (Restricted To Pulmonology/Resp) -) 1 amp NEB RBID [facility] Last Admin: 07/14/18 08:21 Dose: 1 amp Digoxin (Lanoxin -) 0.125 mg PO DAILY [facility] Last Admin: 07/14/18 09:48 Dose: 0.125 mg Diltiazem HCl (Cardizem Cd -) 180 mg PO DAILY [facility] Last Admin: 07/14/18 09:48 Dose: 180 mg Furosemide (Lasix -) 40 mg PO BIDLASIX [facility] Last Admin: 07/14/18 06:30 Dose: 40 mg Gabapentin (Neurontin -) 100 mg PO TID [facility] Last Admin: 07/14/18 06:30 Dose: 100 mg Glimepiride (Amaryl -) 1 mg PO AM [facility] Last Admin: 07/14/18 06:30 Dose: 1 mg Piperacillin Sod/Tazobactam (Sod 3.375 gm/ Dextrose) 50 mls @ 100 mls/hr IVPB Q8H-IV [facility]; Protocol Last Admin: 07/14/18 09:49 Dose: 100 mls/hr Insulin Aspart (Novolog Vial Sliding Scale -) 1 vial SQ TIDAC [facility]; Protocol Last Admin: 07/14/18 06:26 Dose: Not Given Levothyroxine Sodium (Synthroid -) 50 mcg PO DAILY@0700 [facility] Last Admin: 07/14/18 06:30 Dose: 50 mcg Losartan Potassium (Cozaar -) 25 mg PO DAILY [facility] Last Admin: 07/14/18 09:48 Dose: 25 mg Mometasone Furoate (Asmanex 220mcg -) 1 puff IH HS [facility] Last Admin: 07/13/18 21:05 Dose: 1 puff Prednisone (Deltasone -) 20 mg PO DAILY [facility] Last Admin: 07/14/18 09:48 Dose: 20 mg Warfarin Sodium (Coumadin -) 3 mg PO DAILY@1800 [facility] Last Admin: 07/13/18 18:21 Dose: 3 mg - Objective Vital Signs: Vital Signs Temperature 97.4 F L 07/14/18 08:46 Pulse Rate 62 07/14/18 09:48 Respiratory Rate 18 07/14/18 08:46 Blood Pressure 117/55 L 07/14/18 08:46 O2 Sat by Pulse Oximetry (%) 97 07/14/18 09:00 Constitutional: Yes: Well Nourished, No Distress, Calm Cardiovascular: Yes: WNL, Regular Rate and Rhythm Respiratory: Yes: WNL, Regular, CTA Bilaterally. No: Accessory Muscle Use, SOB , Tachypnea, Wheezes Gastrointestinal: Yes: WNL, Normal Bowel Sounds, Soft, Abdomen, Obese. No: Distention, Tenderness Genitourinary: Yes: CVA Tenderness - Right (mild) Extremities: Yes: Erythema Edema: No Integumentary: Yes: Venous Stasis Changes Neurological: Yes: WNL, Alert, Oriented Psychiatric: Yes: WNL, Alert, Oriented Labs: CBC, BMP 07/14/18 06:00 07/14/18 06:15 INR, PTT INR 1.44 (0.83-1.09) H 07/13/18 10:40 Assessment/Plan (1) UTI (urinary tract infection) Assessment/Plan: failed outpt management UA+, UC pending Zosyn day 3 ID following Code(s): N39.0 - URINARY TRACT INFECTION, SITE NOT SPECIFIED Qualifiers: Urinary tract infection type: acute cystitis Hematuria presence: with hematuria Qualified Code(s): N30.01 - Acute cystitis with hematuria (2) COPD (chronic obstructive pulmonary disease) Assessment/Plan: stable not in exacerbation continue home regimen Code(s): J44.9 - CHRONIC OBSTRUCTIVE PULMONARY DISEASE, UNSPECIFIED Qualifiers: COPD type: unspecified COPD Qualified Code(s): J44.9 - Chronic obstructive pulmonary disease, unspecified (3) Atrial fibrillation Assessment/Plan: rate controlled continue diltiazem, digoxin INR subtherapeutic coumadin 3mg Code(s): I48.91 - UNSPECIFIED ATRIAL FIBRILLATION Qualifiers: Atrial fibrillation type: chronic Qualified Code(s): I48.2 - Chronic atrial fibrillation (4) CHF (congestive heart failure) Assessment/Plan: chronic, euvolemic continue lasix 40mg bid Code(s): I50.9 - HEART FAILURE, UNSPECIFIED Qualifiers: Qualified Code(s): I50.32 - Chronic diastolic (congestive) heart failure (5) Chronic wound of extremity Assessment/Plan: chronic b/l stasis dermatitis Code(s): [id number] - (6) Diabetes Assessment/Plan: stable bgm insulin sliding scale continue amaryl Code(s): E11.9 - TYPE 2 DIABETES MELLITUS WITHOUT COMPLICATIONS Qualifiers: Diabetes mellitus type: type 2 Diabetes mellitus buttermaker continuous churn insulin use: without buttermaker continuous churn use Diabetes mellitus complication status: with hyperglycemia Qualified Code(s): E11.65 - Type 2 diabetes mellitus with hyperglycemia (7) HTN (hypertension) Assessment/Plan: controlled continue home meds Code(s): I10 - ESSENTIAL (PRIMARY) HYPERTENSION Qualifiers: Hypertension type: essential hypertension Qualified Code(s): I10 - Essential (primary) hypertension (8) Hypothyroidism Assessment/Plan: stable continue levothyroxine Code(s): E03.9 - HYPOTHYROIDISM, UNSPECIFIED (9) Morbid obesity Assessment/Plan: outpt management Code(s): E66.01 - MORBID (SEVERE) OBESITY DUE TO EXCESS CALORIES (10) Hypokalemia Assessment/Plan: improving monitor bmp Code(s): E87.6 - HYPOKALEMIA Dispo: Home when ID cleared
[2018-07-14 13:10] VITALS: BMI 42.7
[2018-07-14] MEDS ORDERED: WARFARIN NA 5 MG TABLET (UD) PO ONE (18:00)
[2018-07-14] MEDS: MOMETASONE FUROATE 220 MCG/IH INHALER IH SCH (21:43)
[2018-07-15] MEDS ORDERED: DEXTROSE 5%-WATER - 50 ML IVPB ONE ×3 (01:52→16:18)
[2018-07-15] MEDS ORDERED: PIPERACILLIN/TAZOBACTAM 3.375 GM VIAL IVPB ONE ×3 (01:52→16:18)
[2018-07-15] MEDS: PIPERACILLIN/TAZOB 3.375 GM 3.375 GM in DEXTROSE 5%-WATER - 50 ML IVPB SCH ×3 (01:59→17:18)
[2018-07-15] MEDS ORDERED: PT OWN MED DRAWER 7, Y5N ONE ×2 (05:58→16:07)
[2018-07-15] MEDS: GLIMEPIRIDE 1 MG TABLET (FP) PO SCH (06:51)
[2018-07-15] MEDS: LEVOTHYROXINE NA 50 MCG TABLET (FP) PO SCH (06:51)
[2018-07-15] MEDS: FUROSEMIDE 40 MG TABLET (FP) PO SCH ×2 (06:51→13:22)
[2018-07-15] MEDS: GABAPENTIN 100 MG CAPSULE (FP) PO SCH ×3 (06:51→21:41)
[2018-07-15] MEDS: INSULIN SLIDING SCALE (NOVOLOG) 1 VIAL SQ SCH ×3 (07:04→17:18)
[2018-07-15 07:11] LABS: BASO % 0.9 % (0-2.0); EOS % 3.7 % (0-4.5); HEMATOCRIT 34.7 % (32.4-45.2); LYMPH % 28.2 % (8-40); MCH 26.3 pg (25.7-33.7); MCHC 31.7 g/dl (32.0-36.0); MEAN CELL VOLUME 82.8 fl (80-96); MEAN PLT VOLUME 8.3 fl (7.5-11.1); MONO % 8.1 % (3.8-10.2); NEUT % 59.1 % (42.8-82.8); PLATELET COUNT 215 K/MM3 (134-434); RBC 4.19 M/mm3 (3.60-5.2); RDW 19.8 % (11.6-15.6); WHITE BLOOD COUNT 10.1 K/mm3 (4.0-10.0)
[2018-07-15 07:26] LABS: INR 1.6 (0.83-1.09)
[2018-07-15 07:30] LABS: ANION GAP 7 MMOL/L (8-16); BLOOD UREA NITROGEN 25 mg/dL (7-18); CALCIUM 8.7 mg/dL (8.5-10.1); CHLORIDE 104 mmol/L (98-107); CO2 30 mmol/L (21-32); CREATININE 0.7 mg/dL (0.55-1.3); GLUCOSE,RANDOM 74 mg/dL (74-106); POTASSIUM 3.6 mmol/L (3.5-5.1); SODIUM 141 mmol/L (136-145)
[2018-07-15] MEDS: ARFORMOTEROL TARTRATE 15 MCG/2 ML VIAL NEB SCH ×2 (08:30→21:28)
[2018-07-15] MEDS ORDERED: WARFARIN NA 3 MG TABLET PO SCH (08:58)
--- NOTE | 2018-07-15 08:59 | PN ---
Progress Note (short form) - Note Progress Note: Dr. Garcia to document today. On IV Rx. INR still lower than 2. She is normally on 4mg of Coumadin a day at home; Also Prednisone has been tapered to 5mg in the past at home. I will lower from 20mg to 10 mg now.
--- NOTE | 2018-07-15 09:00 | PN ---
Progress Note, Physician Chief Complaint: Pt sitting in chair in no acute distress. Otherwise, denies any chest pain, sob , n/v/d - Current Medication List Current Medications: Active Medications Acetaminophen (Tylenol -) 650 mg PO Q6H PRN PRN Reason: PAIN LEVEL 1 - 3 Albuterol Sulfate (Ventolin 0.083% Nebulizer Soln -) 1 amp NEB Q4H PRN PRN Reason: SHORT OF BREATH/WHEEZING Albuterol Sulfate (Ventolin Hfa Inhaler -) 2 puff IH Q6H PRN PRN Reason: SHORTNESS OF BREATH Allopurinol (Zyloprim -) 100 mg PO DAILY [facility] Last Admin: 07/14/18 09:48 Dose: 100 mg Arformoterol Tartrate (Brovana (Restricted To Pulmonology/Resp) -) 1 amp NEB RBID [facility] Last Admin: 07/15/18 08:30 Dose: 1 amp Digoxin (Lanoxin -) 0.125 mg PO DAILY [facility] Last Admin: 07/14/18 09:48 Dose: 0.125 mg Diltiazem HCl (Cardizem Cd -) 180 mg PO DAILY [facility] Last Admin: 07/14/18 09:48 Dose: 180 mg Furosemide (Lasix -) 40 mg PO BIDLASIX [facility] Last Admin: 07/15/18 06:51 Dose: 40 mg Gabapentin (Neurontin -) 100 mg PO TID [facility] Last Admin: 07/15/18 06:51 Dose: 100 mg Glimepiride (Amaryl -) 1 mg PO AM [facility] Last Admin: 07/15/18 06:51 Dose: 1 mg Piperacillin Sod/Tazobactam (Sod 3.375 gm/ Dextrose) 50 mls @ 100 mls/hr IVPB Q8H-IV [facility]; Protocol Last Admin: 07/15/18 01:59 Dose: 100 mls/hr Insulin Aspart (Novolog Vial Sliding Scale -) 1 vial SQ TIDAC [facility]; Protocol Last Admin: 07/15/18 07:04 Dose: Not Given Levothyroxine Sodium (Synthroid -) 50 mcg PO DAILY@0700 [facility] Last Admin: 07/15/18 06:51 Dose: 50 mcg Losartan Potassium (Cozaar -) 25 mg PO DAILY [facility] Last Admin: 07/14/18 09:48 Dose: 25 mg Mometasone Furoate (Asmanex 220mcg -) 1 puff IH HS [facility] Last Admin: 07/14/18 21:43 Dose: 1 puff Prednisone (Deltasone -) 20 mg PO DAILY [facility] Last Admin: 07/14/18 09:48 Dose: 20 mg Warfarin Sodium (Coumadin -) 4 mg PO DAILY@1800 [facility] - Objective Vital Signs: Vital Signs Temperature 98.5 F 07/15/18 06:11 Pulse Rate 64 07/15/18 06:11 Respiratory Rate 20 07/15/18 06:11 Blood Pressure 130/56 L 07/15/18 06:11 O2 Sat by Pulse Oximetry (%) 97 07/14/18 21:00 Constitutional: Yes: Well Nourished, No Distress, Calm Cardiovascular: Yes: WNL, Regular Rate and Rhythm Respiratory: Yes: WNL, Regular, CTA Bilaterally, SOB on Exertion. No: Accessory Muscle Use, Rales, SOB, Tachypnea, Wheezes Gastrointestinal: Yes: WNL, Normal Bowel Sounds, Soft, Abdomen, Obese. No: Distention, Tenderness Genitourinary: Yes: WNL Musculoskeletal: Yes: WNL Extremities: Yes: Erythema Edema: Yes Edema: LLE: Trace, RLE: Trace Integumentary: Yes: Venous Stasis Changes Neurological: Yes: WNL, Alert, Oriented Psychiatric: Yes: WNL, Alert, Oriented Labs: CBC, BMP 07/15/18 06:10 07/15/18 06:10 INR, PTT INR 1.60 (0.83-1.09) H 07/15/18 06:10 Assessment/Plan (1) UTI (urinary tract infection) Assessment/Plan: failed outpt management UA+, UC growing group d strep/enterococcus Zosyn day 3 ID following Code(s): N39.0 - URINARY TRACT INFECTION, SITE NOT SPECIFIED Qualifiers: Urinary tract infection type: acute cystitis Hematuria presence: with hematuria Qualified Code(s): N30.01 - Acute cystitis with hematuria (2) COPD (chronic obstructive pulmonary disease) Assessment/Plan: stable not in exacerbation continue home regimen Code(s): J44.9 - CHRONIC OBSTRUCTIVE PULMONARY DISEASE, UNSPECIFIED Qualifiers: COPD type: unspecified COPD Qualified Code(s): J44.9 - Chronic obstructive pulmonary disease, unspecified (3) Atrial fibrillation Assessment/Plan: rate controlled continue diltiazem, digoxin INR subtherapeutic coumadin 5mg Code(s): I48.91 - UNSPECIFIED ATRIAL FIBRILLATION Qualifiers: Atrial fibrillation type: chronic Qualified Code(s): I48.2 - Chronic atrial fibrillation (4) CHF (congestive heart failure) Assessment/Plan: chronic, euvolemic continue lasix 40mg bid Code(s): I50.9 - HEART FAILURE, UNSPECIFIED Qualifiers: Qualified Code(s): I50.32 - Chronic diastolic (congestive) heart failure (5) Chronic wound of extremity Assessment/Plan: chronic b/l stasis dermatitis Code(s): [id number] - (6) Diabetes Assessment/Plan: stable bgm insulin sliding scale continue amaryl Code(s): E11.9 - TYPE 2 DIABETES MELLITUS WITHOUT COMPLICATIONS Qualifiers: Diabetes mellitus type: type 2 Diabetes mellitus termite exterminator insulin use: without termite exterminator use Diabetes mellitus complication status: with hyperglycemia Qualified Code(s): E11.65 - Type 2 diabetes mellitus with hyperglycemia (7) HTN (hypertension) Assessment/Plan: controlled continue home meds Code(s): I10 - ESSENTIAL (PRIMARY) HYPERTENSION Qualifiers: Hypertension type: essential hypertension Qualified Code(s): I10 - Essential (primary) hypertension (8) Hypothyroidism Assessment/Plan: stable continue levothyroxine Code(s): E03.9 - HYPOTHYROIDISM, UNSPECIFIED (9) Morbid obesity Assessment/Plan: outpt management Code(s): E66.01 - MORBID (SEVERE) OBESITY DUE TO EXCESS CALORIES (10) Hypokalemia Assessment/Plan: kcl 40meq x 1 monitor bmp Code(s): E87.6 - HYPOKALEMIA Dispo: Home when ID cleared. awaiting final culture and sensitivity
[2018-07-15] MEDS ORDERED: POTASSIUM CHLORIDE TABS 20 MEQ TABLET.ER (FP) PO ONE (09:15)
[2018-07-15] MEDS: ALLOPURINOL 100 MG TABLET (FP) PO SCH (10:29)
[2018-07-15] MEDS: predniSONE 10 MG TABLET (UD) PO SCH (10:29)
[2018-07-15] MEDS: DIGOXIN 0.125 MG TABLET (FP) PO SCH (10:29)
[2018-07-15] MEDS: LOSARTAN POTASSIUM 25 MG TABLET PO SCH (10:29)
[2018-07-15] MEDS: LACTOBACILLUS ACIDOPHILUS 1 TABLET PO SCH (12:54)
[2018-07-15] MEDS: MINERAL OIL/PETROLAT/WATER TOPICAL CREAM 113 GM JAR TP SCH (17:18)
[2018-07-15] MEDS ORDERED: WARFARIN NA 5 MG TABLET (UD) PO ONE (18:00)
[2018-07-15] MEDS: MOMETASONE FUROATE 220 MCG/IH INHALER IH SCH (21:37)
[2018-07-16] MEDS ORDERED: DEXTROSE 5%-WATER - 50 ML IVPB ONE ×2 (00:52→08:32)
[2018-07-16] MEDS ORDERED: PIPERACILLIN/TAZOBACTAM 3.375 GM VIAL IVPB ONE ×3 (00:52→08:32)
[2018-07-16] MEDS: ACETAMINOPHEN 325 MG TABLET (FP) PO PRN ×2 (01:25→15:00)
[2018-07-16] MEDS: PIPERACILLIN/TAZOB 3.375 GM 3.375 GM in DEXTROSE 5%-WATER - 50 ML IVPB SCH ×2 (01:25→10:51)
[2018-07-16] MEDS: INSULIN SLIDING SCALE (NOVOLOG) 1 VIAL SQ SCH ×3 (06:40→17:13)
[2018-07-16] MEDS: GABAPENTIN 100 MG CAPSULE (FP) PO SCH ×3 (06:40→21:45)
[2018-07-16] MEDS: LEVOTHYROXINE NA 50 MCG TABLET (FP) PO SCH (06:40)
[2018-07-16] MEDS: FUROSEMIDE 40 MG TABLET (FP) PO SCH ×2 (06:40→14:31)
[2018-07-16] MEDS: GLIMEPIRIDE 1 MG TABLET (FP) PO SCH (06:52)
[2018-07-16 07:02] LABS: BASO % 0.9 % (0-2.0); EOS % 4.3 % (0-4.5); HEMATOCRIT 36.5 % (32.4-45.2); HEMOGLOBIN 11.6 GM/dL (10.7-15.3); LYMPH % 25.6 % (8-40); MCH 26.3 pg (25.7-33.7); MCHC 31.8 g/dl (32.0-36.0); MEAN CELL VOLUME 82.8 fl (80-96); MEAN PLT VOLUME 8.3 fl (7.5-11.1); MONO % 6.6 % (3.8-10.2); NEUT % 62.6 % (42.8-82.8); PLATELET COUNT 237 K/MM3 (134-434); RBC 4.41 M/mm3 (3.60-5.2); RDW 20.2 % (11.6-15.6); WHITE BLOOD COUNT 10.1 K/mm3 (4.0-10.0)
[2018-07-16 07:32] LABS: ANION GAP 9 MMOL/L (8-16); BLOOD UREA NITROGEN 25 mg/dL (7-18); CALCIUM 8.9 mg/dL (8.5-10.1); CHLORIDE 101 mmol/L (98-107); CO2 29 mmol/L (21-32); CREATININE 0.8 mg/dL (0.55-1.3); GLUCOSE,RANDOM 84 mg/dL (74-106); POTASSIUM 3.5 mmol/L (3.5-5.1); SODIUM 140 mmol/L (136-145)
[2018-07-16 08:00] LABS: INR 1.9 (0.83-1.09); PROTHROMBIN TIME (PATIENT) 22.6 SEC (9.7-13.0)
[2018-07-16] MEDS ORDERED: WARFARIN NA 5 MG TABLET (UD) PO ONE (08:54)
--- NOTE | 2018-07-16 09:13 | PN ---
Progress Note (short form) - Note Progress Note: Dr. 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 Still having confusion which doesn't seem to be clearing in spite of IV Antibiotics for URI. Neuro consult placed; ? CT brain.
--- NOTE | 2018-07-16 09:59 | CONSULT ---
Consult - text type - Consultation Consultation Note: Neurology History of Present Illness: 83 yrs old F multiple medical Co-morbidities H/O Morbid Obesity, COPD, HTN, Afib rate controlled on AC, KATERINA, T2DM poorly controlled , multiple wound infections with resistent organism in the past , presented with burning micturtaion, had been prescribed Cefuroxime that she took for 2 days remained symptomatic so came to ED for evaluation, c/o severe burning micturation, suprapubic pain no fever, chills, nausea, vomiting or diarrhea denied any CVA Pain or tenderness. UA +. I was consulted today because the patient's mental status has not entirely cleared up despite being on antibiotics. In speaking with her, she believed she was at a rehabilitation center but did say [facility]. She believed it was the but was unsure of the . She could tell me it is 2017 and the name of the president of [id number]. I agree that it seems she hascontinued confusion and I did order a noncontrast head CT to further evaluate and rule out any structural abnormalities. It may be that her UTI clearance has not translated to appropriate mental status yet and I would recommend continued medical optimization. - Past Medical History Cardiovascular: Yes: AFIB, CHF, Deep Vein Thrombosis, HTN, Hyperlipdemia Pulmonary: Yes: Asthma, COPD, O2 Dependent Gastrointestinal: Yes: Hiatal Hernia Infectious Disease: Yes: MRSA, VREF Musculoskeletal: Yes: Osteoarthritis Endocrine: Yes: Diabetes Mellitus, Hypothyroidism Dermatology: Yes: Cellulitis, Eczema - Past Surgical History Past Surgical History: Yes: Appendectomy, Cholecystectomy, Hernia Repair (times three), Oopherectomy, Tonsillectomy - Smoking History Smoking history: Never smoked Have you smoked in the past 12 months: No Aproximately how many cigarettes per day: 0 If you are a former smoker, when did you quit?: 2007 - Alcohol/Substance Use Hx Alcohol Use: No History of Substance Use: reports: None - Social History ADL: Independent History of Recent Travel: No Home Medications - Allergies Allergies/Adverse Reactions: Allergies Allergy/AdvReac Type Severity Reaction Status Date / Time No Known Allergies Allergy Verified 07/11/18 16:55 - Home Medications Home Medications: Ambulatory Orders Albuterol Sulfate Inhaler - [Ventolin HFA Inhaler -] 2 inh IH Q6H PRN #0 inh 04/27 Acetaminophen [Tylenol .Regular Strength -] 650 mg PO Q6H PRN #240 tablet Digoxin [Lanoxin -] 0.125 mg PO AM 09/24/17 Albuterol 0.083% Nebulizer Bonnie [Ventolin 0.083% Nebulizer Soln -] 1 amp NEB Q4H PRN amp 10/02/17 Arformoterol Tartrate [Brovana -] 1 amp NEB RBID amp 10/02/17 Insulin Sliding Scale [Novolog Vial Sliding Scale -] 1 vial SQ TIDAC units Tiotropium [place] [Spiriva] 1 puff IH DAILY inh 10/02/17 Gabapentin [Neurontin -] 100 mg PO TID 04/02/18 Mometasone Furoate [Asmanex 220Mcg -] 1 puff IH DAILY inhaler 04/10/18 Allopurinol [Zyloprim -] 100 mg PO AM 07/11/18 Cefuroxime Axetil [Cefuroxime] 500 mg PO BID 07/11/18 Diltiazem Cd [Cardizem Cd -] 180 mg PO AM 07/11/18 Furosemide [Lasix -] 40 mg PO BID 07/11/18 Glimepiride [Glimepiride -] 1 mg PO AM 07/11/18 Levothyroxine [Synthroid -] 50 mcg PO AM 07/11/18 Losartan Potassium [Cozaar -] 25 mg PO AM 07/11/18 Potassium Chloride [K-Dur -] 20 meq PO AM 07/11/18 Warfarin Na [Coumadin -] 2.5 mg PO HS 07/11/18 predniSONE [Deltasone -] 20 mg PO AM 07/11/18 Family Disease History - Family Disease History Family Disease History: Heart Disease: Mother (NE), Other: Father (ETOH cirrhosis), Sister (alive and well) Review of Systems - Review of Systems Constitutional: denies: Chills, Diaphoresis, Lethargy Eyes: denies: Blind Spots, Blurred Vision, Double Vision, Eye Pain HENT: denies: Difficult Swallowing, Ear Discharge, Ear Pain, Epistaxis Neck: denies: Decreased ROM, Lumps, Pain on Movement, Stiffness Cardiovascular: reports: Edema. denies: Chest Pain, Palpitations, Shortness of Breath Respiratory: denies: Cough, Exercise Intolerance, Hemoptysis Gastrointestinal: denies: Abdominal Pain, Bloating, Constipation Genitourinary: reports: Burning, Dysuria, Frequency. denies: Flank Pain Musculoskeletal: reports: Back Pain. denies: Crepitus, Decreased ROM Integumentary: denies: Blister, Bruising Neurological: denies: Change in LOC, Change in Speech, Confusion Physical Examination Vital Signs Period Temp Pulse Resp BP Sys/Luke Pulse Ox Last 24 Hr 97.6 F-98.1 F 76-87 18-20 105-136/47-69 97 Constitutional: No Distress HEENT: Atraumatic, NormocephalicConjunctiva Clear, EOM Intact, PERRL. No: Sclera Icterus Neck: Trachea Midline. No: Decreased ROM, Lymphadenopathy Cardiovascular: Pulse Irregular, S1, S2. No: JVD Respiratory: Yes: On Nasal O2, Rales Gastrointestinal: : Normal Bowel Sounds, Soft Extremities: Other (Chronic Venous stasis and Ulcers) Neurological: Alert, Oriented, Motor Strength: WNL, LUE, LLE, RUE, RLE CBCD WBC 10.1 K/mm3 (4.0-10.0) H 07/16/18 06:10 RBC 4.41 M/mm3 (3.60-5.2) 07/16/18 06:10 Hgb 11.6 GM/dL (10.7-15.3) 07/16/18 06:10 Hct 36.5 % (32.4-45.2) 07/16/18 06:10 MCV 82.8 fl (80-96) 07/16/18 06:10 MCHC 31.8 g/dl (32.0-36.0) L 07/16/18 06:10 RDW 20.2 % (11.6-15.6) H 07/16/18 06:10 Plt Count 237 K/MM3 (134-434) 07/16/18 06:10 MPV 8.3 fl (7.5-11.1) 07/16/18 06:10 CMP Sodium 140 mmol/L (136-145) 07/16/18 06:10 Potassium 3.5 mmol/L (3.5-5.1) 07/16/18 06:10 Chloride 101 mmol/L (98-107) 07/16/18 06:10 Carbon Dioxide 29 mmol/L (21-32) 07/16/18 06:10 Anion Gap 9 MMOL/L (8-16) 07/16/18 06:10 BUN 25 mg/dL (7-18) H 07/16/18 06:10 Creatinine 0.8 mg/dL (0.55-1.3) 07/16/18 06:10 Creat Clearance w eGFR > 60 (>60) 07/16/18 06:10 Random Glucose 84 mg/dL (74-106) 07/16/18 06:10 Calcium 8.9 mg/dL (8.5-10.1) 07/16/18 06:10 Total Bilirubin 0.8 mg/dL (0.2-1) 07/12/18 07:49 AST 15 U/L (15-37) 07/12/18 07:49 ALT 15 U/L (13-61) 07/12/18 07:49 Alkaline Phosphatase 77 U/L (45-117) 07/12/18 07:49 Total Protein 5.3 g/dl (6.4-8.2) L 07/12/18 07:49 Albumin 2.7 g/dl (3.4-5.0) L 07/12/18 07:49 CARDIAC ENZYMES Troponin I 0.04 ng/ml (0.00-0.05) 07/11/18 18:30 Imaging - Results Chest X-ray: Report Reviewed (No interval chnages) EKG: Report Reviewed (No acute St t changes) Plan: 83 yrs old F multiple medical Co-morbidities H/O Morbid Obesity, COPD, HTN, Afib rate controlled on AC, KATERINA, T2DM poorly controlled , multiple wound infections with resistent organism in the past , presented with burning micturtaion, had been prescribed Cefuroxime that she took for 2 days remained symptomatic so came to ED for evaluation, c/o severe burning micturation, suprapubic pain no fever, chills, nausea, vomiting or diarrhea denied any CVA Pain or tenderness. UA +. I was consulted today because the patient's mental status has not entirely cleared up despite being on antibiotics. In speaking with her, she believed she was at a rehabilitation center but did say [facility]. She believed it was the but was unsure of the month. She could tell me it is 2018 and the name of the president of [employer]. I agree that it seems she hascontinued confusion and I did order a noncontrast head CT to further evaluate and rule out any structural abnormalities. It may be that her UTI clearance has not translated to appropriate mental status yet and I would recommend continued medical optimization. continued surveillance for any other sources of infection, continue optimization for diabetes, avoid hyperglycemic or hypoglycemic episodes. Monitor hypokalemia, corrected potassium as needed. Increased hydration recommended, frequent reorientation, avoid sedatives or mental status altering medications.
--- NOTE | 2018-07-16 10:04 | PN ---
Progress Note, Physician Chief Complaint: Pt lying in bed in no acute distress. alert and oriented, however does seem to talk about unrelated topics when asked questions, not sure what her baseline is...PCP evaluated at bedside, and reports pt is slightly altered from her baseline mental status. Otherwise, denies any chest pain, sob, n/v/d - Current Medication List Current Medications: Active Medications Acetaminophen (Tylenol -) 650 mg PO Q6H PRN PRN Reason: PAIN LEVEL 1 - 3 Last Admin: 07/16/18 01:25 Dose: 650 mg Albuterol Sulfate (Ventolin 0.083% Nebulizer Soln -) 1 amp NEB Q4H PRN PRN Reason: SHORT OF BREATH/WHEEZING Albuterol Sulfate (Ventolin Hfa Inhaler -) 2 puff IH Q6H PRN PRN Reason: SHORTNESS OF BREATH Allopurinol (Zyloprim -) 100 mg PO DAILY [facility] Last Admin: 07/15/18 10:29 Dose: 100 mg Arformoterol Tartrate (Brovana (Restricted To Pulmonology/Resp) -) 1 amp NEB RBID [facility] Last Admin: 07/15/18 21:28 Dose: 1 amp Digoxin (Lanoxin -) 0.125 mg PO DAILY [facility] Last Admin: 07/15/18 10:29 Dose: 0.125 mg Diltiazem HCl (Cardizem Cd -) 180 mg PO DAILY [facility] Last Admin: 07/15/18 10:29 Dose: 180 mg Furosemide (Lasix -) 40 mg PO BIDLASIX [facility] Last Admin: 07/16/18 06:40 Dose: 40 mg Gabapentin (Neurontin -) 100 mg PO TID [facility] Last Admin: 07/16/18 06:40 Dose: 100 mg Glimepiride (Amaryl -) 1 mg PO AM [facility] Last Admin: 07/16/18 06:52 Dose: 1 mg Piperacillin Sod/Tazobactam (Sod 3.375 gm/ Dextrose) 50 mls @ 100 mls/hr IVPB Q8H-IV [facility]; Protocol Last Admin: 07/16/18 01:25 Dose: 100 mls/hr Insulin Aspart (Novolog Vial Sliding Scale -) 1 vial SQ TIDAC [facility]; Protocol Last Admin: 07/16/18 06:40 Dose: Not Given Lactobacillus Acidophilus (Bacid -) 1 tab PO DAILY [facility] Last Admin: 07/15/18 12:54 Dose: 1 tab Levothyroxine Sodium (Synthroid -) 50 mcg PO DAILY@0700 [facility] Last Admin: 07/16/18 06:40 Dose: 50 mcg Losartan Potassium (Cozaar -) 25 mg PO DAILY [facility] Last Admin: 07/15/18 10:29 Dose: 25 mg Mometasone Furoate (Asmanex 220mcg -) 1 puff IH HS [facility] Last Admin: 07/15/18 21:37 Dose: 1 puff Multi-Ingredient Lotion (Eucerin (Small Jar) -) 1 applic TP DAILY [facility] Last Admin: 07/15/18 17:18 Dose: 1 applic Potassium Chloride (K-Dur -) 40 meq PO ONCE ONE Stop: 07/16/18 10:03 Potassium Chloride (K-Dur -) 40 meq PO DAILY [facility] Prednisone (Deltasone -) 10 mg PO DAILY [facility] Last Admin: 07/15/18 10:29 Dose: 10 mg - Objective Vital Signs: Vital Signs Temperature 97.6 F 07/16/18 06:01 Pulse Rate 83 07/16/18 06:01 Respiratory Rate 20 07/16/18 06:01 Blood Pressure 108/48 L 07/16/18 06:01 O2 Sat by Pulse Oximetry (%) 97 07/15/18 19:52 Constitutional: Yes: Well Nourished, No Distress, Calm Cardiovascular: Yes: WNL, Regular Rate and Rhythm Respiratory: Yes: WNL, Regular, CTA Bilaterally. No: Accessory Muscle Use, SOB , Tachypnea, Wheezes Gastrointestinal: Yes: Normal Bowel Sounds, Soft, Abdomen, Obese. No: Distention, Tenderness Genitourinary: Yes: WNL Extremities: Yes: Erythema Edema: Yes Edema: LLE: Trace, RLE: Trace Integumentary: Yes: Venous Stasis Changes Neurological: Yes: Alert, Confusion Psychiatric: Yes: Alert Labs: CBC, BMP 07/16/18 06:10 07/16/18 06:10 INR, PTT INR 1.90 (0.83-1.09) H 07/16/18 06:10 Assessment/Plan (1) UTI (urinary tract infection) Assessment/Plan: failed outpt management UA+, UC growing enterococcus faec await final sensitivity received Zosyn x 4 days, changed to iv vanco today ID following Code(s): N39.0 - URINARY TRACT INFECTION, SITE NOT SPECIFIED Qualifiers: Urinary tract infection type: acute cystitis Hematuria presence: with hematuria Qualified Code(s): N30.01 - Acute cystitis with hematuria (2) Metabolic encephalopathy Assessment/Plan: mild confusion, changed from baseline per PCP head CT done- no acute changes neuro following Code(s): G93.41 - METABOLIC ENCEPHALOPATHY (3) COPD (chronic obstructive pulmonary disease) Assessment/Plan: stable not in exacerbation continue home regimen Code(s): J44.9 - CHRONIC OBSTRUCTIVE PULMONARY DISEASE, UNSPECIFIED Qualifiers: COPD type: unspecified COPD Qualified Code(s): J44.9 - Chronic obstructive pulmonary disease, unspecified (4) Atrial fibrillation Assessment/Plan: rate controlled continue diltiazem, digoxin INR subtherapeutic coumadin 5mg Code(s): I48.91 - UNSPECIFIED ATRIAL FIBRILLATION Qualifiers: Atrial fibrillation type: chronic Qualified Code(s): I48.2 - Chronic atrial fibrillation (5) CHF (congestive heart failure) Assessment/Plan: chronic, euvolemic continue lasix 40mg bid Code(s): I50.9 - HEART FAILURE, UNSPECIFIED Qualifiers: Qualified Code(s): I50.32 - Chronic diastolic (congestive) heart failure (6) Chronic wound of extremity Assessment/Plan: chronic b/l stasis dermatitis Code(s): [id number] - (7) Diabetes Assessment/Plan: stable bgm insulin sliding scale continue amaryl Code(s): E11.9 - TYPE 2 DIABETES MELLITUS WITHOUT COMPLICATIONS Qualifiers: Diabetes mellitus type: type 2 Diabetes mellitus vermin exterminator insulin use: without vermin exterminator use Diabetes mellitus complication status: with hyperglycemia Qualified Code(s): E11.65 - Type 2 diabetes mellitus with hyperglycemia (8) HTN (hypertension) Assessment/Plan: controlled continue home meds Code(s): I10 - ESSENTIAL (PRIMARY) HYPERTENSION Qualifiers: Hypertension type: essential hypertension Qualified Code(s): I10 - Essential (primary) hypertension (9) Hypothyroidism Assessment/Plan: stable continue levothyroxine Code(s): E03.9 - HYPOTHYROIDISM, UNSPECIFIED (10) Morbid obesity Assessment/Plan: outpt management Code(s): E66.01 - MORBID (SEVERE) OBESITY DUE TO EXCESS CALORIES (11) Hypokalemia Assessment/Plan: kcl 40meq x 1 kcl 40meq daily scheduled ordered monitor bmp Code(s): E87.6 - HYPOKALEMIA (12) Intertrigo Assessment/Plan: pt w/ +abd panniculus +erythema under breast, skin folds nystatin powder ordered continue adequate hygiene Code(s): L30.4 - ERYTHEMA INTERTRIGO Dispo: Home when cleared by ID
[2018-07-16] MEDS ORDERED: POTASSIUM CHLORIDE TABS 20 MEQ TABLET.ER (FP) PO ONE (10:15)
[2018-07-16] MEDS: LOSARTAN POTASSIUM 25 MG TABLET PO SCH (10:51)
[2018-07-16] MEDS: predniSONE 10 MG TABLET (UD) PO SCH (10:51)
[2018-07-16] MEDS: LACTOBACILLUS ACIDOPHILUS 1 TABLET PO SCH (10:51)
[2018-07-16] MEDS: DIGOXIN 0.125 MG TABLET (FP) PO SCH (10:51)
[2018-07-16] MEDS: MINERAL OIL/PETROLAT/WATER TOPICAL CREAM 113 GM JAR TP SCH (10:52)
[2018-07-16] MEDS: ALLOPURINOL 100 MG TABLET (FP) PO SCH (10:59)
[2018-07-16] MEDS: ARFORMOTEROL TARTRATE 15 MCG/2 ML VIAL NEB SCH ×2 (11:20→22:35)
--- NOTE | 2018-07-16 12:39 | PN ---
Progress Note, Physician History of Present Illness: Awake, seated in bed Offers no complaints Denies dysuria/ flank pain No fever/ chills Urine c/s Enterococcal sp BC (-) - Current Medication List Current Medications: Active Medications Acetaminophen (Tylenol -) 650 mg PO Q6H PRN PRN Reason: PAIN LEVEL 1 - 3 Last Admin: 07/16/18 01:25 Dose: 650 mg Albuterol Sulfate (Ventolin 0.083% Nebulizer Soln -) 1 amp NEB Q4H PRN PRN Reason: SHORT OF BREATH/WHEEZING Albuterol Sulfate (Ventolin Hfa Inhaler -) 2 puff IH Q6H PRN PRN Reason: SHORTNESS OF BREATH Allopurinol (Zyloprim -) 100 mg PO DAILY [facility] Last Admin: 07/16/18 10:59 Dose: 100 mg Arformoterol Tartrate (Brovana (Restricted To Pulmonology/Resp) -) 1 amp NEB RBID [facility] Last Admin: 07/16/18 11:20 Dose: 1 amp Digoxin (Lanoxin -) 0.125 mg PO DAILY [facility] Last Admin: 07/16/18 10:51 Dose: 0.125 mg Diltiazem HCl (Cardizem Cd -) 180 mg PO DAILY [facility] Last Admin: 07/16/18 10:52 Dose: 180 mg Furosemide (Lasix -) 40 mg PO BIDLASIX [facility] Last Admin: 07/16/18 06:40 Dose: 40 mg Gabapentin (Neurontin -) 100 mg PO TID [facility] Last Admin: 07/16/18 06:40 Dose: 100 mg Glimepiride (Amaryl -) 1 mg PO AM [facility] Last Admin: 07/16/18 06:52 Dose: 1 mg Piperacillin Sod/Tazobactam (Sod 3.375 gm/ Dextrose) 50 mls @ 100 mls/hr IVPB Q8H-IV [facility]; Protocol Last Admin: 07/16/18 10:51 Dose: 100 mls/hr Insulin Aspart (Novolog Vial Sliding Scale -) 1 vial SQ TIDAC [facility]; Protocol Last Admin: 07/16/18 11:49 Dose: Not Given Lactobacillus Acidophilus (Bacid -) 1 tab PO DAILY [facility] Last Admin: 07/16/18 10:51 Dose: 1 tab Levothyroxine Sodium (Synthroid -) 50 mcg PO DAILY@0700 [facility] Last Admin: 07/16/18 06:40 Dose: 50 mcg Losartan Potassium (Cozaar -) 25 mg PO DAILY [facility] Last Admin: 07/16/18 10:51 Dose: 25 mg Mometasone Furoate (Asmanex 220mcg -) 1 puff IH HS [facility] Last Admin: 07/15/18 21:37 Dose: 1 puff Multi-Ingredient Lotion (Eucerin (Small Jar) -) 1 applic TP DAILY [facility] Last Admin: 07/16/18 10:52 Dose: 1 applic Nystatin (Nystop Powder -) 1 applic TP DAILY [facility] Potassium Chloride (K-Dur -) 40 meq PO DAILY [facility] Prednisone (Deltasone -) 10 mg PO DAILY [facility] Last Admin: 07/16/18 10:51 Dose: 10 mg - Objective Vital Signs: Vital Signs Temperature 97.6 F 07/16/18 11:03 Pulse Rate 87 07/16/18 11:03 Respiratory Rate 18 07/16/18 11:03 Blood Pressure 118/57 L 07/16/18 11:03 O2 Sat by Pulse Oximetry (%) 97 07/16/18 09:00 Constitutional: Yes: Obese Cardiovascular: Yes: Regular Rate and Rhythm, S1, S2 Respiratory: Yes: CTA Bilaterally Gastrointestinal: Yes: Normal Bowel Sounds, Soft. No: Tenderness Genitourinary: No: CVA Tenderness - Left, CVA Tenderness - Right Edema: Yes Labs: CBC, BMP 07/16/18 06:10 07/16/18 06:10 INR, PTT INR 1.90 (0.83-1.09) H 07/16/18 06:10 Assessment/Plan UTI Toxic metabolic encephalopathy Hx resistant pathogens Await final urine c/s Substitute vancomycin pending final c/s
[2018-07-16] MEDS: VANCOMYCIN 1 GRAM (PRE-DOCKED) 1,000 MG/250 ML BAG IVPB SCH (14:30)
[2018-07-16] MEDS: NYSTATIN POWDER 100,000 UNITS/GM - 15 GM TOPICAL POWDER TP SCH (14:30)
[2018-07-16] MEDS: MOMETASONE FUROATE 220 MCG/IH INHALER IH SCH (21:45)
[2018-07-17] MEDS: VANCOMYCIN 1 GRAM (PRE-DOCKED) 1,000 MG/250 ML BAG IVPB SCH ×2 (02:12→12:38)
[2018-07-17] MEDS: INSULIN SLIDING SCALE (NOVOLOG) 1 VIAL SQ SCH ×3 (06:26→16:45)
[2018-07-17] MEDS: FUROSEMIDE 40 MG TABLET (FP) PO SCH ×2 (06:29→14:03)
[2018-07-17] MEDS: GLIMEPIRIDE 1 MG TABLET (FP) PO SCH (06:29)
[2018-07-17] MEDS: GABAPENTIN 100 MG CAPSULE (FP) PO SCH ×3 (06:29→22:19)
[2018-07-17] MEDS: LEVOTHYROXINE NA 50 MCG TABLET (FP) PO SCH (06:30)
[2018-07-17] MEDS: ACETAMINOPHEN 325 MG TABLET (FP) PO PRN ×2 (06:31→22:22)
[2018-07-17] MEDS: ARFORMOTEROL TARTRATE 15 MCG/2 ML VIAL NEB SCH ×2 (07:30→20:10)
[2018-07-17 07:37] LABS: INR 2.49 (0.83-1.09); PROTHROMBIN TIME (PATIENT) 29.7 SEC (9.7-13.0)
[2018-07-17 07:58] LABS: ANION GAP 8 MMOL/L (8-16); BLOOD UREA NITROGEN 22 mg/dL (7-18); CALCIUM 9.1 mg/dL (8.5-10.1); CHLORIDE 103 mmol/L (98-107); CO2 30 mmol/L (21-32); CREATININE 0.8 mg/dL (0.55-1.3); GLUCOSE,RANDOM 96 mg/dL (74-106); POTASSIUM 3.5 mmol/L (3.5-5.1); SODIUM 141 mmol/L (136-145)
[2018-07-17] MEDS: POTASSIUM CHLORIDE TABS 20 MEQ TABLET.ER (FP) PO SCH (09:01)
[2018-07-17] MEDS: predniSONE 10 MG TABLET (UD) PO SCH (09:02)
[2018-07-17] MEDS: LACTOBACILLUS ACIDOPHILUS 1 TABLET PO SCH (09:02)
[2018-07-17] MEDS: LOSARTAN POTASSIUM 25 MG TABLET PO SCH (09:02)
[2018-07-17] MEDS: DIGOXIN 0.125 MG TABLET (FP) PO SCH (09:02)
[2018-07-17] MEDS: ALLOPURINOL 100 MG TABLET (FP) PO SCH (09:02)
[2018-07-17 09:11] LABS: BASO % 0.6 % (0-2.0); EOS % 3.5 % (0-4.5); HEMATOCRIT 37.8 % (32.4-45.2); HEMOGLOBIN 11.9 GM/dL (10.7-15.3); LYMPH % 20.6 % (8-40); MCH 26.4 pg (25.7-33.7); MCHC 31.5 g/dl (32.0-36.0); MEAN PLT VOLUME 8.5 fl (7.5-11.1); MONO % 7.3 % (3.8-10.2); PLATELET COUNT 249 K/MM3 (134-434); RDW 20.8 % (11.6-15.6); WHITE BLOOD COUNT 10.3 K/mm3 (4.0-10.0)
[2018-07-17] MEDS: MINERAL OIL/PETROLAT/WATER TOPICAL CREAM 113 GM JAR TP SCH (09:26)
[2018-07-17] MEDS: NYSTATIN POWDER 100,000 UNITS/GM - 15 GM TOPICAL POWDER TP SCH (09:26)
--- NOTE | 2018-07-17 09:40 | PN ---
Progress Note (short form) - Note Progress Note: Dr. Garcia/KRZYSZTOF Blankenship to document today. Urine C/S : Multiple resistance panel; await ID Clinically better but no PT yesterday and refused Fri.
--- NOTE | 2018-07-17 09:48 | PN ---
Progress Note (short form) - Note Progress Note: Neurology History of Present Illness: 83 yrs old F multiple medical Co-morbidities H/O Morbid Obesity, COPD, HTN, Afib rate controlled on AC, KATERINA, T2DM poorly controlled , multiple wound infections with resistent organism in the past , presented with burning micturtaion, had been prescribed Cefuroxime that she took for 2 days remained symptomatic so came to ED for evaluation, c/o severe burning micturation, suprapubic pain no fever, chills, nausea, vomiting or diarrhea denied any CVA Pain or tenderness. UA +. I was consulted for mental status and" ordered CT head which was completed and did not show any acute changes. This morning, she was able to tell me that she is at [facility] and that it's 2018. She did have some difficulty with the month and believed it to be the end of the month. I had to reoriented her that it was the beginning of July. Despite this, she does seem to be improved in her mental status and cognition. Discussed this with primary care physician. I do suggest continue treatment of her persistent UTI. Active Medications Acetaminophen (Tylenol -) 650 mg PO Q6H PRN PRN Reason: PAIN LEVEL 1 - 3 Last Admin: 07/17/18 06:31 Dose: 650 mg Albuterol Sulfate (Ventolin 0.083% Nebulizer Soln -) 1 amp NEB Q4H PRN PRN Reason: SHORT OF BREATH/WHEEZING Albuterol Sulfate (Ventolin Hfa Inhaler -) 2 puff IH Q6H PRN PRN Reason: SHORTNESS OF BREATH Allopurinol (Zyloprim -) 100 mg PO DAILY [facility] Last Admin: 07/17/18 09:02 Dose: 100 mg Arformoterol Tartrate (Brovana (Restricted To Pulmonology/Resp) -) 1 amp NEB RBID [facility] Last Admin: 07/16/18 22:35 Dose: 1 amp Digoxin (Lanoxin -) 0.125 mg PO DAILY [facility] Last Admin: 07/17/18 09:02 Dose: 0.125 mg Diltiazem HCl (Cardizem Cd -) 180 mg PO DAILY [facility] Last Admin: 07/17/18 09:03 Dose: 180 mg Furosemide (Lasix -) 40 mg PO BIDLASIX [facility] Last Admin: 11/02/18 06:29 Dose: 40 mg Gabapentin (Neurontin -) 100 mg PO TID [facility] Last Admin: 07/17/18 06:29 Dose: 100 mg Glimepiride (Amaryl -) 1 mg PO AM [facility] Last Admin: 07/17/18 06:29 Dose: 1 mg Vancomycin HCl (Vancomycin (Pre-Docked)) 1,000 mg in 250 mls @ 166.667 mls/hr IVPB BID@0100,1300 [facility]; Protocol Last Admin: 07/17/18 02:12 Dose: 166.667 mls/hr Insulin Aspart (Novolog Vial Sliding Scale -) 1 vial SQ TIDAC [facility]; Protocol Last Admin: 07/17/18 06:26 Dose: Not Given Lactobacillus Acidophilus (Bacid -) 1 tab PO DAILY [facility] Last Admin: 07/17/18 09:02 Dose: 1 tab Levothyroxine Sodium (Synthroid -) 50 mcg PO DAILY@0700 [facility] Last Admin: 07/17/18 06:30 Dose: 50 mcg Losartan Potassium (Cozaar -) 25 mg PO DAILY [facility] Last Admin: 07/17/18 09:02 Dose: 25 mg Mometasone Furoate (Asmanex 220mcg -) 1 puff IH HS [facility] Last Admin: 07/16/18 21:45 Dose: 1 puff Multi-Ingredient Lotion (Eucerin (Small Jar) -) 1 applic TP DAILY [facility] Last Admin: 07/17/18 09:26 Dose: 1 applic Nystatin (Nystop Powder -) 1 applic TP DAILY [facility] Last Admin: 07/17/18 09:26 Dose: 1 applic Potassium Chloride (K-Dur -) 40 meq PO DAILY [facility] Last Admin: 07/17/18 09:01 Dose: 40 meq Prednisone (Deltasone -) 10 mg PO DAILY [facility] Last Admin: 07/17/18 09:02 Dose: 10 mg Physical Examination Vital Signs Period Temp Pulse Resp BP Sys/Luke Pulse Ox Last 24 Hr 97.5 F-98 F 69-87 18-18 104-131/49-64 97 Constitutional: No Distress HEENT: Atraumatic, NormocephalicConjunctiva Clear, EOM Intact, PERRL. No: Sclera Icterus Neck: Trachea Midline. No: Decreased ROM, Lymphadenopathy Cardiovascular: Pulse Irregular, S1, S2. No: JVD Respiratory: Yes: On Nasal O2, Rales Gastrointestinal: : Normal Bowel Sounds, Soft Extremities: Other (Chronic Venous stasis and Ulcers) Neurological: Alert, Oriented, Motor Strength: WNL, LUE, LLE, RUE, RLE CBCD WBC 10.3 K/mm3 (4.0-10.0) H 07/17/18 06:00 RBC 4.50 M/mm3 (3.60-5.2) 07/17/18 06:00 Hgb 11.9 GM/dL (10.7-15.3) 07/17/18 06:00 Hct 37.8 % (32.4-45.2) 07/17/18 06:00 MCV 84.0 fl (80-96) 07/17/18 06:00 MCHC 31.5 g/dl (32.0-36.0) L 07/17/18 06:00 RDW 20.8 % (11.6-15.6) H 07/17/18 06:00 Plt Count 249 K/MM3 (134-434) 07/17/18 06:00 MPV 8.5 fl (7.5-11.1) 07/17/18 06:00 CMP Sodium 141 mmol/L (136-145) 07/17/18 06:00 Potassium 3.5 mmol/L (3.5-5.1) 07/17/18 06:00 Chloride 103 mmol/L (98-107) 07/17/18 06:00 Carbon Dioxide 30 mmol/L (21-32) 07/17/18 06:00 Anion Gap 8 MMOL/L (8-16) 07/17/18 06:00 BUN 22 mg/dL (7-18) H 07/17/18 06:00 Creatinine 0.8 mg/dL (0.55-1.3) 07/17/18 06:00 Creat Clearance w eGFR > 60 (>60) 07/17/18 06:00 Random Glucose 96 mg/dL (74-106) 07/17/18 06:00 Calcium 9.1 mg/dL (8.5-10.1) 07/17/18 06:00 Total Bilirubin 0.8 mg/dL (0.2-1) 07/12/18 07:49 AST 15 U/L (15-37) 07/12/18 07:49 ALT 15 U/L (13-61) 07/12/18 07:49 Alkaline Phosphatase 77 U/L (45-117) 07/12/18 07:49 Total Protein 5.3 g/dl (6.4-8.2) L 07/12/18 07:49 Albumin 2.7 g/dl (3.4-5.0) L 07/12/18 07:49 CARDIAC ENZYMES Troponin I 0.04 ng/ml (0.00-0.05) 07/11/18 18:[address] head reviewed and discussed in detail Plan: 83 yrs old F multiple medical Co-morbidities H/O Morbid Obesity, COPD, HTN, Afib rate controlled on AC, KATERINA, T2DM poorly controlled , multiple wound infections with resistent organism in the past , presented with burning micturtaion, had been prescribed Cefuroxime that she took for 2 days remained symptomatic so came to ED for evaluation, c/o severe burning micturation, suprapubic pain no fever, chills, nausea, vomiting or diarrhea denied any CVA Pain or tenderness. UA +. CT head without acute changes, improved orientation today, but did need to be informed that it is early July. Likely UTI clearance has not translated to complete return to baseline of mental status yet and I would recommend continued medical optimization though, has improved. continued surveillance for any other sources of infection, continue optimization for diabetes, avoid hyperglycemic or hypoglycemic episodes. Monitor hypokalemia, corrected potassium as needed. Increased hydration recommended, frequent reorientation, avoid sedatives or mental status altering medications.
--- NOTE | 2018-07-17 12:38 | PN ---
Progress Note, Physician - Current Medication List Current Medications: Active Medications Acetaminophen (Tylenol -) 650 mg PO Q6H PRN PRN Reason: PAIN LEVEL 1 - 3 Last Admin: 07/17/18 06:31 Dose: 650 mg Albuterol Sulfate (Ventolin 0.083% Nebulizer Soln -) 1 amp NEB Q4H PRN PRN Reason: SHORT OF BREATH/WHEEZING Albuterol Sulfate (Ventolin Hfa Inhaler -) 2 puff IH Q6H PRN PRN Reason: SHORTNESS OF BREATH Allopurinol (Zyloprim -) 100 mg PO DAILY [facility] Last Admin: 07/17/18 09:02 Dose: 100 mg Arformoterol Tartrate (Brovana (Restricted To Pulmonology/Resp) -) 1 amp NEB RBID [facility] Last Admin: 07/17/18 07:30 Dose: 1 amp Digoxin (Lanoxin -) 0.125 mg PO DAILY [facility] Last Admin: 07/17/18 09:02 Dose: 0.125 mg Diltiazem HCl (Cardizem Cd -) 180 mg PO DAILY [facility] Last Admin: 07/17/18 09:03 Dose: 180 mg Furosemide (Lasix -) 40 mg PO BIDLASIX [facility] Last Admin: 07/17/18 06:29 Dose: 40 mg Gabapentin (Neurontin -) 100 mg PO TID [facility] Last Admin: 07/17/18 06:29 Dose: 100 mg Glimepiride (Amaryl -) 1 mg PO AM [facility] Last Admin: 07/17/18 06:29 Dose: 1 mg Vancomycin HCl (Vancomycin (Pre-Docked)) 1,000 mg in 250 mls @ 166.667 mls/hr IVPB BID@0100,1300 [facility]; Protocol Last Admin: 07/17/18 02:12 Dose: 166.667 mls/hr Insulin Aspart (Novolog Vial Sliding Scale -) 1 vial SQ TIDAC [facility]; Protocol Last Admin: 07/17/18 11:46 Dose: Not Given Lactobacillus Acidophilus (Bacid -) 1 tab PO DAILY [facility] Last Admin: 07/17/18 09:02 Dose: 1 tab Levothyroxine Sodium (Synthroid -) 50 mcg PO DAILY@0700 [facility] Last Admin: 07/17/18 06:30 Dose: 50 mcg Losartan Potassium (Cozaar -) 25 mg PO DAILY [facility] Last Admin: 07/17/18 09:02 Dose: 25 mg Mometasone Furoate (Asmanex 220mcg -) 1 puff IH HS [facility] Last Admin: 07/16/18 21:45 Dose: 1 puff Multi-Ingredient Lotion (Eucerin (Small Jar) -) 1 applic TP DAILY [facility] Last Admin: 07/17/18 09:26 Dose: 1 applic Nystatin (Nystop Powder -) 1 applic TP DAILY [facility] Last Admin: 07/17/18 09:26 Dose: 1 applic Potassium Chloride (K-Dur -) 40 meq PO DAILY [facility] Last Admin: 07/17/18 09:01 Dose: 40 meq Prednisone (Deltasone -) 10 mg PO DAILY [facility] Last Admin: 07/17/18 09:02 Dose: 10 mg - Objective Vital Signs: Vital Signs Temperature 98 F 07/17/18 11:37 Pulse Rate 71 07/17/18 11:37 Respiratory Rate 18 07/17/18 11:37 Blood Pressure 107/53 L 07/17/18 11:37 O2 Sat by Pulse Oximetry (%) 94 L 07/17/18 09:00 Labs: CBC, BMP 07/17/18 06:00 07/17/18 06:00 INR, PTT INR 2.49 (0.83-1.09) H 07/17/18 06:00
--- NOTE | 2018-07-17 14:13 | PN ---
Progress Note, Physician History of Present Illness: OOB in chair C/O pressure in abdomen (points to pannus) Denies dysuria/ flank pain No fever/ chills Urine c/s Enterococcal sp BC (-) - Current Medication List Current Medications: Active Medications Acetaminophen (Tylenol -) 650 mg PO Q6H PRN PRN Reason: PAIN LEVEL 1 - 3 Last Admin: 07/17/18 06:31 Dose: 650 mg Albuterol Sulfate (Ventolin 0.083% Nebulizer Soln -) 1 amp NEB Q4H PRN PRN Reason: SHORT OF BREATH/WHEEZING Albuterol Sulfate (Ventolin Hfa Inhaler -) 2 puff IH Q6H PRN PRN Reason: SHORTNESS OF BREATH Allopurinol (Zyloprim -) 100 mg PO DAILY [facility] Last Admin: 07/17/18 09:02 Dose: 100 mg Arformoterol Tartrate (Brovana (Restricted To Pulmonology/Resp) -) 1 amp NEB RBID [facility] Last Admin: 07/17/18 07:30 Dose: 1 amp Digoxin (Lanoxin -) 0.125 mg PO DAILY [facility] Last Admin: 07/17/18 09:02 Dose: 0.125 mg Diltiazem HCl (Cardizem Cd -) 180 mg PO DAILY [facility] Last Admin: 07/17/18 09:03 Dose: 180 mg Furosemide (Lasix -) 40 mg PO BIDLASIX [facility] Last Admin: 07/17/18 14:03 Dose: 40 mg Gabapentin (Neurontin -) 100 mg PO TID [facility] Last Admin: 07/17/18 14:03 Dose: 100 mg Glimepiride (Amaryl -) 1 mg PO AM [facility] Last Admin: 07/17/18 06:29 Dose: 1 mg Vancomycin HCl (Vancomycin (Pre-Docked)) 1,000 mg in 250 mls @ 166.667 mls/hr IVPB BID@0100,1300 [facility]; Protocol Last Admin: 07/17/18 12:38 Dose: 166.667 mls/hr Insulin Aspart (Novolog Vial Sliding Scale -) 1 vial SQ TIDAC [facility]; Protocol Last Admin: 07/17/18 11:46 Dose: Not Given Lactobacillus Acidophilus (Bacid -) 1 tab PO DAILY [facility] Last Admin: 07/17/18 09:02 Dose: 1 tab Levothyroxine Sodium (Synthroid -) 50 mcg PO DAILY@0700 [facility] Last Admin: 07/17/18 06:30 Dose: 50 mcg Losartan Potassium (Cozaar -) 25 mg PO DAILY [facility] Last Admin: 07/17/18 09:02 Dose: 25 mg Mometasone Furoate (Asmanex 220mcg -) 1 puff IH HS [facility] Last Admin: 07/16/18 21:45 Dose: 1 puff Multi-Ingredient Lotion (Eucerin (Small Jar) -) 1 applic TP DAILY [facility] Last Admin: 07/17/18 09:26 Dose: 1 applic Nystatin (Nystop Powder -) 1 applic TP DAILY [facility] Last Admin: 07/17/18 09:26 Dose: 1 applic Potassium Chloride (K-Dur -) 40 meq PO DAILY [facility] Last Admin: 07/17/18 09:01 Dose: 40 meq Prednisone (Deltasone -) 10 mg PO DAILY [facility] Last Admin: 07/17/18 09:02 Dose: 10 mg Warfarin Sodium (Coumadin -) 4 mg PO DAILY@1800 [facility] - Objective Vital Signs: Vital Signs Temperature 98 F 07/17/18 11:37 Pulse Rate 71 07/17/18 11:37 Respiratory Rate 18 07/17/18 11:37 Blood Pressure 107/53 L 07/17/18 11:37 O2 Sat by Pulse Oximetry (%) 94 L 07/17/18 09:00 Constitutional: Yes: No Distress, Obese Cardiovascular: Yes: Regular Rate and Rhythm, S1, S2 Respiratory: Yes: CTA Bilaterally Gastrointestinal: Yes: Normal Bowel Sounds, Soft, Other (+ pannus). No: Tenderness Edema: Yes Labs: CBC, BMP 07/17/18 06:00 07/17/18 06:00 INR, PTT INR 2.49 (0.83-1.09) H 07/17/18 06:00 Assessment/Plan UTI Enterococcus Toxic metabolic encephalopathy Hx resistant pathogens Substitute zyvox 600mg po bid x 7d
--- NOTE | 2018-07-17 15:56 | DS ---
Physical Examination Vital Signs: Vital Signs Temperature 98.1 F 07/17/18 14:48 Pulse Rate 82 07/17/18 14:48 Respiratory Rate 18 07/17/18 14:48 Blood Pressure 125/52 L 07/17/18 14:48 O2 Sat by Pulse Oximetry (%) 94 L 07/17/18 09:00 Constitutional: Yes: Well Nourished, No Distress, Calm Cardiovascular: Yes: WNL, Regular Rate and Rhythm. No: Tachycardia Respiratory: Yes: WNL, Regular, CTA Bilaterally. No: Accessory Muscle Use, SOB , Tachypnea, Wheezes Renal/: Yes: WNL Extremities: Yes: Erythema Integumentary: Yes: Venous Stasis Changes Neurological: Yes: WNL, Alert, Oriented Psychiatric: Yes: WNL, Alert, Oriented Labs: CBC, BMP 07/17/18 06:00 07/17/18 06:00 Discharge Summary Reason For Visit: UTI Current Active Problems Hypokalemia (Acute) Hypokalemia (Acute) Intertrigo (Acute) Metabolic encephalopathy (Acute) UTI (urinary tract infection) (Acute) Hospital Course: 83 year old female admitted for UTI which failed outpt management. Pt received Zosyn for 4 days, 2 days of Vancomycin, transition to PO Zyvox by ID today. UC grew enterococcus faecium. During her course of stay, pt noted to have altered mental status, suspect 2/2 uti, head ct without acute findings, neurology evaluated, continue outpt work up. Pt has been afebrile, wbc wnl, vitals stable , dysuria improved. Pt is medically stable for discharge home w/ VNS. Called son Zen to inform, no response. Follow up as directed 32 minutes spent in discharge planning Condition: Stable - Instructions Diet, Activity, Other Instructions: continue antibx for 7 days coumadin 4mg daily, check INR in 3 days maintain hydration follow up as directed Referrals: Xaiv Storey MD [Primary Care Provider] - 1 Week Dante Jones MD [Staff Physician] - 2 Weeks Disposition: VNS/HOME HEALTH CARE - Home Medications Comprehensive Discharge Medication List: Ambulatory Orders Albuterol Sulfate Inhaler - [Ventolin HFA Inhaler -] 2 inh IH Q6H PRN #0 inh 04/27 Acetaminophen [Tylenol .Regular Strength -] 650 mg PO Q6H PRN #240 tablet Digoxin [Lanoxin -] 0.125 mg PO AM 09/24/17 Albuterol 0.083% Nebulizer Bonnie [Ventolin 0.083% Nebulizer Soln -] 1 amp NEB Q4H PRN amp 10/02/17 Arformoterol Tartrate [Brovana -] 1 amp NEB RBID amp 10/02/17 Insulin Sliding Scale [Novolog Vial Sliding Scale -] 1 vial SQ TIDAC units Tiotropium [place] [Spiriva] 1 puff IH DAILY inh 10/02/17 Gabapentin [Neurontin -] 100 mg PO TID 04/02/18 Mometasone Furoate [Asmanex 220Mcg -] 1 puff IH DAILY inhaler 04/10/18 Allopurinol [Zyloprim -] 100 mg PO AM 07/11/18 Diltiazem Cd [Cardizem Cd -] 180 mg PO AM 07/11/18 Furosemide [Lasix -] 40 mg PO BID 07/11/18 Glimepiride [Glimepiride -] 1 mg PO AM 07/11/18 Levothyroxine [Synthroid -] 50 mcg PO AM 07/11/18 Losartan Potassium [Cozaar -] 25 mg PO AM 07/11/18 Lactobacillus Acidophilus [Bacid -] 1 tab PO DAILY #7 tab 07/17/18 Linezolid [Zyvox (Restricted To Id) -] 600 mg PO BID 7 Days #14 tablet 07/17/18 Mineral Oil/Petrolat,Wht/Water [Eucerin (Small Jar) -] 1 applic TP DAILY #1 jar 07/17/18 Nystatin Powder [Nystop Powder -] 1 applic TP DAILY #14 applic 07/17/18 Potassium Chloride [K-Dur -] 40 meq PO DAILY #30 tablet.er 07/17/18 Warfarin Na [Coumadin -] 4 mg PO DAILY@1800 #14 tablet 07/17/18 predniSONE [Deltasone -] 10 mg PO DAILY #7 tablet 07/17/18
[2018-07-17] MEDS ORDERED: WARFARIN NA 2 MG TABLET (UD) PO SCH (18:00)
[2018-07-17] MEDS: MOMETASONE FUROATE 220 MCG/IH INHALER IH SCH (22:20)
[2018-07-17] MEDS: LINEZOLID 600 MG TABLET (RESTRICTED TO ID) PO SCH (22:20)
[2018-07-18] MEDS: GABAPENTIN 100 MG CAPSULE (FP) PO SCH ×2 (06:51→13:43)
[2018-07-18] MEDS: LEVOTHYROXINE NA 50 MCG TABLET (FP) PO SCH (06:51)
[2018-07-18] MEDS: FUROSEMIDE 40 MG TABLET (FP) PO SCH ×2 (06:51→13:43)
[2018-07-18] MEDS: INSULIN SLIDING SCALE (NOVOLOG) 1 VIAL SQ SCH ×2 (06:53→11:33)
[2018-07-18] MEDS: GLIMEPIRIDE 1 MG TABLET (FP) PO SCH (06:53)
[2018-07-18] MEDS: ARFORMOTEROL TARTRATE 15 MCG/2 ML VIAL NEB SCH (07:30)
[2018-07-18 08:44] LABS: BASO % 0.7 % (0-2.0); EOS % 3.9 % (0-4.5); HEMATOCRIT 36.5 % (32.4-45.2); HEMOGLOBIN 12.2 GM/dL (10.7-15.3); LYMPH % 23.5 % (8-40); MCH 27.8 pg (25.7-33.7); MCHC 33.3 g/dl (32.0-36.0); MEAN CELL VOLUME 83.5 fl (80-96); MONO % 7.4 % (3.8-10.2); NEUT % 64.5 % (42.8-82.8); PLATELET COUNT 243 K/MM3 (134-434); RBC 4.38 M/mm3 (3.60-5.2); RDW 20.1 % (11.6-15.6); WHITE BLOOD COUNT 9.6 K/mm3 (4.0-10.0)
[2018-07-18 08:47] LABS: INR 2.43 (0.83-1.09); PROTHROMBIN TIME (PATIENT) 28.9 SEC (9.7-13.0)
[2018-07-18 09:05] LABS: ANION GAP 7 MMOL/L (8-16); BLOOD UREA NITROGEN 21 mg/dL (7-18); CALCIUM 8.9 mg/dL (8.5-10.1); CHLORIDE 103 mmol/L (98-107); CO2 32 mmol/L (21-32); CREATININE 0.6 mg/dL (0.55-1.3); GLUCOSE,RANDOM 82 mg/dL (74-106); POTASSIUM 3.2 mmol/L (3.5-5.1); SODIUM 142 mmol/L (136-145)
[2018-07-18] MEDS: LACTOBACILLUS ACIDOPHILUS 1 TABLET PO SCH (09:18)
[2018-07-18] MEDS: POTASSIUM CHLORIDE TABS 20 MEQ TABLET.ER (FP) PO SCH (09:18)
[2018-07-18] MEDS: ALLOPURINOL 100 MG TABLET (FP) PO SCH (09:18)
[2018-07-18] MEDS: DIGOXIN 0.125 MG TABLET (FP) PO SCH (09:19)
[2018-07-18] MEDS: LOSARTAN POTASSIUM 25 MG TABLET PO SCH (09:19)
[2018-07-18] MEDS: predniSONE 10 MG TABLET (UD) PO SCH (09:19)
[2018-07-18] MEDS: NYSTATIN POWDER 100,000 UNITS/GM - 15 GM TOPICAL POWDER TP SCH (09:21)
[2018-07-18] MEDS: MINERAL OIL/PETROLAT/WATER TOPICAL CREAM 113 GM JAR TP SCH (09:21)
[2018-07-18] MEDS: LINEZOLID 600 MG TABLET (RESTRICTED TO ID) PO SCH (09:21)
[2018-07-18] MEDS ORDERED: POTASSIUM CHLORIDE ORAL LIQUID 20 MEQ/15 ML PO ONE (10:41)
[2018-07-18] MEDS ORDERED: MAG HYDROX/AL HYDROX/SIMETH 30 ML UNIT-DOSE CUP PO PRN (12:31)
[2018-07-18 13:34] VITALS: BP 130/60; PULSE 91; TEMP 97.9
== END 2018-07-18 16:18 | disposition home health service (06) | DRG 689 ==
LOC: JER 16:48 → JERBED 19:42 → J7W 07-12 02:13
PROVIDERS: ADMIT Internal Medicine; ATTEND Internal Medicine
DX: N39.0 Urinary tract infection, site not specified (principal); G93.41 Metabolic encephalopathy; Z68.41 Body mass index [BMI] 40.0-44.9, adult; I50.32 Chronic diastolic (congestive) heart failure; I11.0 Hypertensive heart disease with heart failure; E78.5 Hyperlipidemia, unspecified; J44.9 Chronic obstructive pulmonary disease, unspecified; B95.2 Enterococcus as the cause of diseases classified elsewhere; K44.9 Diaphragmatic hernia without obstruction or gangrene; E11.65 Type 2 diabetes mellitus with hyperglycemia; E03.9 Hypothyroidism, unspecified; F03.90 Unspecified dementia, unspecified severity, without behavioral disturbance, psychotic disturbance, mood disturbance, and anxiety; G47.33 Obstructive sleep apnea (adult) (pediatric); L30.9 Dermatitis, unspecified; M19.90 Unspecified osteoarthritis, unspecified site; E66.01 Morbid (severe) obesity due to excess calories; E87.6 Hypokalemia; E11.51 Type 2 diabetes mellitus with diabetic peripheral angiopathy without gangrene; I48.2 Chronic atrial fibrillation; Z79.01 Long term (current) use of anticoagulants; Z86.718 Personal history of other venous thrombosis and embolism; Z99.81 Dependence on supplemental oxygen
CPT/HCPCS: 36415; 70450-TC; 80048; 80053; 80162; 81003; 81015; 82962; 83735; 84484; 85025; 85610; 87040; 87077; 87086; 87186; 93005; 93010; 94640; 97116-GP; 97161-GP; 99283-25; J7030

== ENCOUNTER 2018-08-22 10:46 | Inpatient (IN) | payer OTHER ==
--- NOTE | 2018-08-22 12:02 | PDOC ---
History of Present Illness - General Chief Complaint: Weakness Stated Complaint: LEG PAIN Time Seen by Provider: 08/22/18 11:06 History Source: Patient, Family (daughter) Exam Limitations: No Limitations - History of Present Illness Initial Comments: 08/22/18 11:58 Pt is an 83yo F with PMH of Afib (on Coumadin), HTN, DM, HLD, COPD BIBA after falling at her own home at 3AM. Per daughter pt got out of bed at 3am to use the restroom when she fell. She had been down for 6 hours. Per pt, fall was due to leg weakness. She denies syncope and hitting her head. Pt said she landed on her knees and arms. She has an abrasion to the R forearm from the fall and is complaining of weakness, bilateral leg and knee pain. She denies chest pain, SOB , lightheadedness, abdominal pain, n/v/d, blood in stool, cough, fevers, chills , numbness/tingling. Per daughter, pt was diagnosed with UTI on Friday and has been taking Cipro. Daughter is concerned because pt does not have problem walking but has not been walking as well for the past few days. Last admitted in June for UTI. PMD: [place] PMH: see hpi PSH: abdominal surgeries Meds: Coumadin, Cipro, med rec Social: denies Allergies: nkda Past History - Past Medical History Allergies/Adverse Reactions: Allergies Allergy/AdvReac Type Severity Reaction Status Date / Time No Known Allergies Allergy Verified 07/11/18 16:55 Home Medications: Ambulatory Orders Albuterol Sulfate Inhaler - [Ventolin HFA Inhaler -] 2 inh IH Q6H PRN #0 inh 04/27 Acetaminophen [Tylenol .Regular Strength -] 650 mg PO Q6H PRN #240 tablet Digoxin [Lanoxin -] 0.125 mg PO AM 09/24/17 Albuterol 0.083% Nebulizer Bonnie [Ventolin 0.083% Nebulizer Soln -] 1 amp NEB Q4H PRN amp 10/02/17 Arformoterol Tartrate [Brovana -] 1 amp NEB RBID amp 10/02/17 Insulin Sliding Scale [Novolog Vial Sliding Scale -] 1 vial SQ TIDAC units Tiotropium [place] [Spiriva] 1 puff IH DAILY inh 10/02/17 Gabapentin [Neurontin -] 100 mg PO TID 04/02/18 Mometasone Furoate [Asmanex 220Mcg -] 1 puff IH DAILY inhaler 04/10/18 Allopurinol [Zyloprim -] 100 mg PO AM 07/11/18 Diltiazem Cd [Cardizem Cd -] 180 mg PO AM 07/11/18 Furosemide [Lasix -] 40 mg PO BID 07/11/18 Glimepiride [Glimepiride -] 1 mg PO AM 07/11/18 Levothyroxine [Synthroid -] 50 mcg PO AM 07/11/18 Losartan Potassium [Cozaar -] 25 mg PO AM 07/11/18 Lactobacillus Acidophilus [Bacid -] 1 tab PO DAILY #7 tab 07/17/18 Mineral Oil/Petrolat,Wht/Water [Eucerin (Small Jar) -] 1 applic TP DAILY #1 jar 07/17/18 Nystatin Powder [Nystop Powder -] 1 applic TP DAILY #14 applic 07/17/18 Potassium Chloride [K-Dur -] 40 meq PO DAILY #30 tablet.er 07/17/18 predniSONE [Deltasone -] 10 mg PO DAILY #7 tablet 07/17/18 Warfarin Na [Coumadin -] 4 mg PO DAILY@1800 08/22/18 Anemia: No Asthma: Yes Cancer: No Cardiac Disorders: Yes (ATRIAL FIBRILLATION) CVA: No COPD: Yes CHF: Yes DVT: No Dementia: Yes Diabetes: Yes GI Disorders: Yes (HIATAL HERNIA, OBSTRUCTION) Disorders: Yes (uti) HTN: Yes Hypercholesterolemia: Yes Liver Disease: No Seizures: No Thyroid Disease: Yes (HYPO) - Surgical History Abdominal Surgery: Yes (HERNIA REPAIR X 3) Appendectomy: Yes (RUPTURED) Cardiac Surgery: Yes (cardioversion x 2) Cholecystectomy: Yes Lung Surgery: No Neurologic Surgery: No Orthopedic Surgery: No - Immunization History Immunization Up to Date: Yes - Suicide/Smoking/Psychosocial Hx Smoking Status: No Smoking History: Never smoked Have you smoked in the past 12 months: No Number of Cigarettes Smoked Daily: 0 If you are a former smoker, when did you quit?: 2007 Cigars Per Day: 20 Information on smoking cessation initiated: No Hx Alcohol Use: No Drug/Substance Use Hx: No Substance Use Type: None Hx Substance Use Treatment: No Review of Systems - Review of Systems Constitutional: Yes: Weakness. No: Chills, Fever HEENTM: No: Symptoms Reported Respiratory: No: Cough, Shortness of Breath Cardiac (ROS): No: Chest Pain, Lightheadedness, Palpitations, Syncope ABD/GI: No: Constipated, Diarrhea, Nausea, Rectal Bleeding, Vomiting, Tarry Stools : No: Symptoms Reported, Burning, Dysuria Musculoskeletal: Yes: See HPI, Joint Pain. No: Back Pain, Joint Swelling, Neck Pain Integumentary: Yes: See HPI, Lesions (R forearm abrasion) Neurological: Yes: See HPI, Weakness. No: Headache, Numbness, Tremors, Ataxia *Physical Exam - Vital Signs Last Vital Signs Temp Pulse Resp BP Pulse Ox 99 H 20 113/70 95 08/22/18 11:19 08/22/18 11:19 08/22/18 11:19 08/22/18 11:19 - Physical Exam General Appearance: Yes: Appropriately Dressed, Mild Distress, Obese HEENT: positive: EOMI, JAMEL, Normal ENT Inspection, TMs Normal, Other (missing upper and lower teeth. ) Neck: positive: Trachea midline, Supple. negative: Lymphadenopathy (R), Lymphadenopathy (L) Respiratory/Chest: positive: Wheezing (upper wilkes bilaterally). negative: Respiratory Distress, Labored Respiration, Rapid RR, Crackles, Rales, Rhonchi, Stridor Cardiovascular: positive: Regular Rhythm, Regular Rate, S1, S2. negative: Edema , JVD, Murmur Vascular Pulses: Carotid (R): 2+, Carotid (L): 2+, Doralis-Pedis (L): 2+ Gastrointestinal/Abdominal: positive: Normal Bowel Sounds, Soft, Other (pannus with chronic skin changes). negative: Distended, Guarding, Rebound, Tenderness Musculoskeletal: positive: Other (bilateral knee tenderness). negative: CVA Tenderness Extremity: positive: Normal Capillary Refill, Pedal Edema, Calf Tenderness. negative: Swelling Integumentary: positive: Normal Color, Dry, Warm Neurologic: positive: telephone installer II-XII NML intact, Fully Oriented, Alert, Normal Mood/ Affect, Normal Response, Motor Strength 5/5 Moderate Sedation - Procedure Monitoring Vital Signs: Procedure Monitoring Vital Signs Temperature Pulse Rate 99 H 08/22/18 11:19 Respiratory Rate 20 08/22/18 11:19 Blood Pressure 113/70 08/22/18 11:19 O2 Sat by Pulse Oximetry (%) 95 08/22/18 11:19 ED Treatment Course - LABORATORY CBC & Chemistry Diagram: 08/22/18 12:06 08/22/18 12:06 Medical Decision Making - Medical Decision Making 08/22/18 12:04 Pt is an 83yo F with PMH of Afib (on Coumadin), HTN, DM, HLD, COPD BIBA after falling at her own home at 3AM. Per daughter pt got out of bed at 3am to use the restroom when she fell. She had been down for 6 hours. Per pt, fall was due to leg weakness. She denies syncope and hitting her head. Pt said she landed on her knees and arms. She has an abrasion to the R forearm from the fall and is complaining of weakness, bilateral leg and knee pain. She denies chest pain, SOB , lightheadedness, abdominal pain, n/v/d, blood in stool, cough, fevers, chills , numbness/tingling. Per daughter, pt was diagnosed with UTI on Friday and has been taking Cipro. Vitals: PE: bilateral wheezing in upper lung wilkes, legs ttp bilaterally, chronic skin changes, hematoma on R lateral calf, erythema on knees bilaterally, pelvis stable, abrasion around 3cm on R forearm. Bruising on L forearm. pannus with chronic skin changes. No vertebral tenderness, no numbness or focal neurological deficits. Bilateral knee tenderness and hip tenderness DDx: CVA, cauda equina, abscess, uti, urosepsis, hypoglycemia. -ordered rectal temperature, ua, ucx. (last Ucx showed susceptibility to vanco, dapto and linezolid). Pt lives alone, cannot go home. Will likely need admission Rectal temp 99.3. Labs wnl. CK slightly elevated at 377. UA showed 3+ LE, blood and 1000s of WBC and many bacteria. Not responding to Cipro. Started Pt on 500mL fluids, Vancomycin (previous susceptibility). Pt admitted for UTI. CT head negative for acute pathology CXR negative for acute pathology XR knees: limited due to pt cooperation. degenerative changes and perhaps loose body in xray of L knee. XR hip: no fracture. Degenerative changes. -pt tender in hip. ordered CT. *DC/Admit/Observation/Transfer Diagnosis at time of Disposition: UTI (urinary tract infection) Qualifiers: Urinary tract infection type: acute cystitis Hematuria presence: with hematuria Qualified Code(s): N30.01 - Acute cystitis with hematuria - Discharge Dispostion Condition at time of disposition: Good Decision to Admit order: Yes - Referrals - Patient Instructions - Post Discharge Activity
[2018-08-22 12:27] LABS: BASO % 0.8 % (0-2.0); EOS % 0.1 % (0-4.5); HEMOGLOBIN 12.3 GM/dL (10.7-15.3); LYMPH % 8.7 % (8-40); MCH 27.4 pg (25.7-33.7); MCHC 33.2 g/dl (32.0-36.0); MEAN CELL VOLUME 82.5 fl (80-96); MONO % 8.6 % (3.8-10.2); NEUT % 81.8 % (42.8-82.8); PLATELET COUNT 218 K/MM3 (134-434); RBC 4.49 M/mm3 (3.60-5.2); RDW 19.7 % (11.6-15.6); WHITE BLOOD COUNT 11.4 K/mm3 (4.0-10.0)
[2018-08-22 12:40] LABS: INR 2.85 (0.83-1.09)
[2018-08-22 12:43] LABS: ACTIVATED PTT 28.1 SECONDS (25.2-36.5)
[2018-08-22 12:59] LABS: ALBUMIN 2.9 g/dl (3.4-5.0); ALK PHOS 97 U/L (45-117); ANION GAP 11 MMOL/L (8-16); BLOOD UREA NITROGEN 22 mg/dL (7-18); CALCIUM 8.7 mg/dL (8.5-10.1); CHLORIDE 99 mmol/L (98-107); CO2 28 mmol/L (21-32); CREATININE 0.8 mg/dL (0.55-1.3); GLUCOSE,RANDOM 139 mg/dL (74-106); MAGNESIUM 1.8 mg/dL (1.8-2.4); POTASSIUM 4.1 mmol/L (3.5-5.1); SGOT/AST 40 U/L (15-37); SGPT/ALT 15 U/L (13-61); SODIUM 139 mmol/L (136-145); TOT PROT 6.3 g/dl (6.4-8.2)
--- NOTE | 2018-08-22 13:41 | PDOC ---
Attending Attestation - Resident Resident Name: Shari Cali - ED Attending Attestation I have performed the following: I have examined & evaluated the patient, The case was reviewed & discussed with the resident, I agree w/resident's findings & plan, Exceptions are as noted - HPI HPI: 08/22/18 13:39 83 F with h/o Afib (on Coumadin), HTN, DM, HLD, COPD, presenting to ED after falling today. Per daughter, pt fell while going to the bathroom in the middle of the night. Typically uses a walker at baseline. Daughter saw on home security camera that pt was down for approx 6 hours before being found. Pt states that her legs gave out from under her. Denies LOC. Denies CP/SOB/ palpitations/lightheadedness prior to falling. Was unable to get up due to LLE pain. Pt states that she has been feeling very weak for the past week. Was recently diagnosed with UTI and started on cipro. Denies F/C. Denies abdominal pain. - Physicial Exam PE: 08/22/18 13:41 "GENERAL: Awake, alert, and fully oriented, in no acute distress. HEAD: No signs of trauma EYES: PERRLA, EOMI, sclera anicteric, conjunctiva clear ENT: Auricles normal inspection, hearing grossly normal, nares patent, oropharynx clear without exudates. Moist mucosa NECK: Nontender, no stepoffs, Normal ROM, supple, no lymphadenopathy, JVD, or masses LUNGS: Breath sounds equal, clear to auscultation bilaterally. No wheezes, and no crackles HEART: Regular rate and rhythm, normal S1 and S2, no murmurs, rubs or gallops ABDOMEN: Soft, nontender, normoactive bowel sounds. No guarding, no rebound. No masses EXTREMITIES: + TTP L hip and L knee with mild L knee effusion NEUROLOGICAL: Cranial nerves II through XII intact. 5/5 strength and sensation in all extremities, Normal speech, normal gait, normal cerebellar function SKIN: + chronic venous stasis BLE - Medical Decision Making 08/22/18 13:43 83 F with weakness and fall today, now with L hip pain. COncerning for fx. Pt also down for 6 hours, will r/o rhabdo. Pt's weakness likely 2/2 recently diagnosed UTI. Has been on cipro but has h/o resistant bacteria. - Labs, UA - CT head - X ray b/l hips and knees 08/22/18 14:58 Labs notable for UTI Per prior sensitivities, pt has grown enterococcus faecium sensitive only to vanc, dapto, and linezolid Will admit for IV vanco XRs and CT negative
[2018-08-22] MEDS ORDERED: DIPHTH,PERTUSS(ACELL),TET 0.5 ML DISP.SYRIN IM ONE ×2 (13:48→13:55)
[2018-08-22] MEDS ORDERED: ACETAMINOPHEN 1000 MG/100 ML VIAL (NON FORMULARY) IVPB ONE (13:48)
[2018-08-22] MEDS ORDERED: ACETAMINOPHEN INJECTION 100 ML IVPB ONE (13:55)
[2018-08-22 14:29] LABS: URINE APPEARANCE TURBID; URINE BILIRUBIN NEGATIVE (<2.0 mg/dL); URINE COLOR DKYELLOW; URINE GLUCOSE (UA) NEGATIVE (NEGATIVE); URINE KETONE NEGATIVE (NEGATIVE); URINE LEUK ESTERASE 3+ (NEGATIVE); URINE NITRITE NEGATIVE (NEGATIVE); URINE PROTEIN 1+ (NEGATIVE); URINE UROBILINOGEN NEGATIVE mg/dL (0.2-1.0)
[2018-08-22 14:35] LABS: EPI CELLS RARE /HPF (FEW); URINE BACTERIA MANY /hpf (NONE SEEN)
[2018-08-22] MEDS ORDERED: VANCOMYCIN 1 GRAM (PRE-DOCKED) 1,000 MG/250 ML BAG IVPB ONE ×2 (15:00→15:07)
[2018-08-22] MEDS ORDERED: SODIUM CHLORIDE 500 ML IV STA (15:08)
[2018-08-22] MEDS ORDERED: ALBUTEROL SO4 8 GM HFA INHALER IH PRN (15:24)
[2018-08-22] MEDS ORDERED: ALBUTEROL SO4 0.083% IH SOL 2.5 MG/3 ML VIAL.NEB. NEB PRN (15:24)
[2018-08-22] MEDS ORDERED: ACETAMINOPHEN 325 MG TABLET (FP) PO PRN (15:24)
--- NOTE | 2018-08-22 15:34 | HP ---
Admitting History and Physical - Primary Care Physician PCP: Xavi Storey - Admission Chief Complaint: Mechanical fall History of Present Illness: 83 yrs old F known since prrevious admission in 06/2018 with UTI H/O Morbid Obesity multiple medical Co-morbidities , COPD, HTN, Afib rate controlled on AC , KATERINA, T2DM poorly controlled , multiple wound infection with resistant organism in the past , today present after sustaining a fal at home as per patient mid night walked to bath room and fell down no syncope or presyncope symptoms denies any hd trauma or LOC, couldn't get up was on bed for 6 hors today family reached him brought to Ed for evaluation, c/o knee pain , P exam unremarkable except rt arm abrasion no head trauma, patient is on PO Ciprofloxacin for UTI by PMD UA + WBC,LE mild elevation of TWBC previously grew Enrero coccus on multiple times so received Vancomycine, ID consulted - Past Medical History Cardiovascular: Yes: AFIB, CHF, Deep Vein Thrombosis, HTN, Hyperlipdemia Pulmonary: Yes: Asthma, COPD, O2 Dependent Gastrointestinal: Yes: Hiatal Hernia Infectious Disease: Yes: MRSA, VREF Musculoskeletal: Yes: Osteoarthritis Endocrine: Yes: Diabetes Mellitus, Hypothyroidism Dermatology: Yes: Cellulitis, Eczema - Past Surgical History Past Surgical History: Yes: Appendectomy, Cholecystectomy, Hernia Repair (times three), Oopherectomy, Tonsillectomy - Smoking History Smoking history: Never smoked Have you smoked in the past 12 months: No Aproximately how many cigarettes per day: 0 If you are a former smoker, when did you quit?: 2007 - Alcohol/Substance Use Hx Alcohol Use: No History of Substance Use: reports: None - Social History ADL: Independent History of Recent Travel: No Home Medications - Allergies Allergies/Adverse Reactions: Allergies Allergy/AdvReac Type Severity Reaction Status Date / Time No Known Allergies Allergy Verified 07/11/18 16:55 - Home Medications Home Medications: Ambulatory Orders Albuterol Sulfate Inhaler - [Ventolin HFA Inhaler -] 2 inh IH Q6H PRN #0 inh 04/27 Acetaminophen [Tylenol .Regular Strength -] 650 mg PO Q6H PRN #240 tablet Digoxin [Lanoxin -] 0.125 mg PO AM 09/24/17 Albuterol 0.083% Nebulizer Bonnie [Ventolin 0.083% Nebulizer Soln -] 1 amp NEB Q4H PRN amp 10/02/17 Arformoterol Tartrate [Brovana -] 1 amp NEB RBID amp 10/02/17 Insulin Sliding Scale [Novolog Vial Sliding Scale -] 1 vial SQ TIDAC units Tiotropium Shushan [Spiriva] 1 puff IH DAILY inh 10/02/17 Gabapentin [Neurontin -] 100 mg PO TID 04/02/18 Mometasone Furoate [Asmanex 220Mcg -] 1 puff IH DAILY inhaler 04/10/18 Allopurinol [Zyloprim -] 100 mg PO AM 07/11/18 Diltiazem Cd [Cardizem Cd -] 180 mg PO AM 07/11/18 Furosemide [Lasix -] 40 mg PO BID 07/11/18 Glimepiride [Glimepiride -] 1 mg PO AM 07/11/18 Levothyroxine [Synthroid -] 50 mcg PO AM 07/11/18 Losartan Potassium [Cozaar -] 25 mg PO AM 07/11/18 Lactobacillus Acidophilus [Bacid -] 1 tab PO DAILY #7 tab 07/17/18 Mineral Oil/Petrolat,Wht/Water [Eucerin (Small Jar) -] 1 applic TP DAILY #1 jar 07/17/18 Nystatin Powder [Nystop Powder -] 1 applic TP DAILY #14 applic 07/17/18 Potassium Chloride [K-Dur -] 40 meq PO DAILY #30 tablet.er 07/17/18 predniSONE [Deltasone -] 10 mg PO DAILY #7 tablet 07/17/18 Warfarin Na [Coumadin -] 4 mg PO DAILY@1800 08/22/18 Family Disease History - Family Disease History Family Disease History: Heart Disease: Mother ([place]), Other: Father (ETOH cirrhosis), Sister (alive and well) Review of Systems - Review of Systems Constitutional: reports: Weakness. denies: Chills, Diaphoresis, Fever Eyes: denies: Blind Spots, Blurred Vision HENT: denies: Difficult Swallowing, Ear Discharge Neck: denies: Decreased ROM, Lumps, Pain on Movement Cardiovascular: reports: Edema, Shortness of Breath. denies: Chest Pain, Palpitations Respiratory: reports: Orthopnea. denies: Cough, Hemoptysis Gastrointestinal: denies: Abdominal Pain, Bloating, Constipation, Diarrhea, Melena Genitourinary: denies: Discharge, Dysuria Neurological: reports: Change in LOC, Change in Speech, Confusion, Dizziness Psychiatric: reports: Altered Sleep Pattern, Depression. denies: Anxiety Pain Intensity: 6 Physical Examination Vital Signs: Vital Signs Temperature 99.3 F 08/22/18 14:03 Pulse Rate 99 H 08/22/18 11:19 Respiratory Rate 20 08/22/18 11:19 Blood Pressure 113/70 08/22/18 11:19 O2 Sat by Pulse Oximetry (%) 95 08/22/18 11:51 Constitutional: No Distress HEENT: Atraumatic, Normocephalic, Conjunctiva Clear, EOM Intact, PERRL. No: Sclera Icterus Neck: Trachea Midline. No: Decreased ROM, Lymphadenopathy Cardiovascular: Pulse Irregular, S1, S2. No: JVD Respiratory: Yes: On Nasal O2, Rales Gastrointestinal: : Normal Bowel Sounds, Soft Extremities: Rt arm abrasion Other (Chronic Venous stasis and Ulcers) Neurological: Alert, Oriented, Motor Strength: WNL, LUE, LLE, RUE, RLE Labs: WBC 11.4 K/mm3 (4.0-10.0) H 08/22/18 12:06 RBC 4.49 M/mm3 (3.60-5.2) 08/22/18 12:06 Hgb 12.3 GM/dL (10.7-15.3) 08/22/18 12:06 Hct 37.0 % (32.4-45.2) 08/22/18 12:06 MCV 82.5 fl (80-96) 08/22/18 12:06 MCH 27.4 pg (25.7-33.7) 08/22/18 12:06 MCHC 33.2 g/dl (32.0-36.0) 08/22/18 12:06 RDW 19.7 % (11.6-15.6) H 08/22/18 12:06 Plt Count 218 K/MM3 (134-434) 08/22/18 12:06 MPV 9.0 fl (7.5-11.1) D 08/22/18 12:06 Absolute Neuts (auto) 9.3 K/mm3 (1.5-8.0) H 08/22/18 12:06 Neutrophils % 81.8 % (42.8-82.8) D 08/22/18 12:06 Lymphocytes % 8.7 % (8-40) D 08/22/18 12:06 Monocytes % 8.6 % (3.8-10.2) 08/22/18 12:06 Eosinophils % 0.1 % (0-4.5) D 08/22/18 12:06 Basophils % 0.8 % (0-2.0) 08/22/18 12:06 Nucleated RBC % 0 % (0-0) 08/22/18 12:06 Sodium 139 mmol/L (136-145) 08/22/18 12:06 Potassium 4.1 mmol/L (3.5-5.1) 08/22/18 12:06 Chloride 99 mmol/L (98-107) 08/22/18 12:06 Carbon Dioxide 28 mmol/L (21-32) 08/22/18 12:06 Anion Gap 11 MMOL/L (8-16) 08/22/18 12:06 BUN 22 mg/dL (7-18) H 08/22/18 12:06 Creatinine 0.8 mg/dL (0.55-1.3) 08/22/18 12:06 Creat Clearance w eGFR > 60 (>60) 08/22/18 12:06 Random Glucose 139 mg/dL (74-106) H 08/22/18 12:06 Lactic Acid 2.0 mmol/L (0.4-2.0) 08/22/18 12:06 Calcium 8.7 mg/dL (8.5-10.1) 08/22/18 12:06 Magnesium 1.8 mg/dL (1.8-2.4) 08/22/18 12:06 Total Bilirubin 1.0 mg/dL (0.2-1) 08/22/18 12:06 AST 40 U/L (15-37) H 08/22/18 12:06 ALT 15 U/L (13-61) 08/22/18 12:06 Alkaline Phosphatase 97 U/L (45-117) 08/22/18 12:06 Creatine Kinase 377 IU/L (26-192) H 08/22/18 13:20 Creatine Kinase Index 0.6 % (0.0-5.0) 08/22/18 13:20 CK-MB (CK-2) 2.35 ng/mL (0.5-3.6) 08/22/18 13:20 Troponin I 0.04 ng/ml (0.00-0.05) 08/22/18 13:20 Total Protein 6.3 g/dl (6.4-8.2) L 08/22/18 12:06 Albumin 2.9 g/dl (3.4-5.0) L 08/22/18 12:06 Imaging - Results X-ray: Report Reviewed (Knee; Fore Arm: Pelvis: CXR:) Cat Scan: Report Reviewed (No acute changes) Problem List - Problems (1) Accident due to mechanical fall without injury Assessment/Plan: Fall precaution, PT evaluation, no fracture in imaging Code(s): W19.XXXA - UNSPECIFIED FALL, INITIAL ENCOUNTER Qualifiers: Encounter type: initial encounter Qualified Code(s): W19.XXXA - Unspecified fall, initial encounter (2) Atrial fibrillation Assessment/Plan: Rtae controlled cont Home medication inr therapeutic F/U dig level Code(s): I48.91 - UNSPECIFIED ATRIAL FIBRILLATION Qualifiers: Atrial fibrillation type: chronic Qualified Code(s): I48.2 - Chronic atrial fibrillation (3) UTI (urinary tract infection) Assessment/Plan: Previously grew E Faecium will cont Vancomycin Code(s): N39.0 - URINARY TRACT INFECTION, SITE NOT SPECIFIED Qualifiers: Urinary tract infection type: acute cystitis Hematuria presence: with hematuria Qualified Code(s): N30.01 - Acute cystitis with hematuria (4) CHF (congestive heart failure) Assessment/Plan: Daistolic Hf cont Lasix at present compensated Code(s): I50.9 - HEART FAILURE, UNSPECIFIED (5) COPD (chronic obstructive pulmonary disease) Assessment/Plan: Stable cont home management Code(s): J44.9 - CHRONIC OBSTRUCTIVE PULMONARY DISEASE, UNSPECIFIED Qualifiers: COPD type: unspecified COPD Qualified Code(s): J44.9 - Chronic obstructive pulmonary disease, unspecified (6) HTN (hypertension) Code(s): I10 - ESSENTIAL (PRIMARY) HYPERTENSION Qualifiers: Hypertension type: essential hypertension Qualified Code(s): I10 - Essential (primary) hypertension (7) Hypothyroidism Code(s): E03.9 - HYPOTHYROIDISM, UNSPECIFIED (8) Intertrigo Assessment/Plan: Cont Levothyroxine Code(s): L30.4 - ERYTHEMA INTERTRIGO (9) Morbid obesity Assessment/Plan: Nutrional consult as out patient Code(s): E66.01 - MORBID (SEVERE) OBESITY DUE TO EXCESS CALORIES (10) T2DM (type 2 diabetes mellitus) Assessment/Plan: hold Metformin cont correction dose insulin Code(s): E11.9 - TYPE 2 DIABETES MELLITUS WITHOUT COMPLICATIONS
[2018-08-22] MEDS ORDERED: FUROSEMIDE 40 MG TABLET (FP) ONE (17:39)
[2018-08-22] MEDS: FUROSEMIDE 40 MG TABLET (FP) PO SCH (17:48)
[2018-08-22] MEDS ORDERED: WARFARIN NA 1 MG TABLET (FP) ONE (18:04)
[2018-08-22] MEDS: WARFARIN NA 2 MG TABLET (UD) PO SCH (18:05)
[2018-08-22 21:18] VITALS: BMI 43.9
--- NOTE | 2018-08-22 21:22 | EKG ---
Test Reason : Blood Pressure : / mmHG Vent. Rate : 093 BPM Atrial Rate : 100 BPM P-R Int : 000 ms QRS Dur : 132 ms QT Int : 372 ms P-R-T Axes : 000 086 018 degrees QTc Int : 462 ms ATRIAL FIBRILLATION RIGHT BUNDLE BRANCH BLOCK ABNORMAL ECG WHEN COMPARED WITH ECG OF 11-JUL-2018 18:46, CRITERIA FOR SEPTAL INFARCT ARE NO LONGER PRESENT T WAVE INVERSION MORE EVIDENT IN ANTERIOR LEADS Confirmed by PAPA KLINE MD ([id number]) on 08/22/2018 9:22:08 PM Referred By: Confirmed By:PAPA KLINE MD
[2018-08-22] MEDS: GABAPENTIN 100 MG CAPSULE (FP) PO SCH (22:15)
[2018-08-22] MEDS: ARFORMOTEROL TARTRATE 15 MCG/2 ML VIAL NEB SCH (22:23)
[2018-08-23] MEDS ORDERED: PT OWN MED DRAWER 7, Y5N ONE ×4 (05:56→22:07)
[2018-08-23] MEDS: GABAPENTIN 100 MG CAPSULE (FP) PO SCH ×3 (06:21→21:51)
[2018-08-23] MEDS: FUROSEMIDE 40 MG TABLET (FP) PO SCH ×2 (06:21→14:57)
[2018-08-23] MEDS: GLIMEPIRIDE 1 MG TABLET (FP) PO SCH (06:26)
[2018-08-23] MEDS: LEVOTHYROXINE NA 50 MCG TABLET (FP) PO SCH (06:27)
[2018-08-23 07:35] LABS: BASO % 1.1 % (0-2.0); EOS % 2.3 % (0-4.5); HEMATOCRIT 35.1 % (32.4-45.2); LYMPH % 19.3 % (8-40); MCHC 31.2 g/dl (32.0-36.0); MEAN CELL VOLUME 83.1 fl (80-96); MEAN PLT VOLUME 8.7 fl (7.5-11.1); MONO % 11.2 % (3.8-10.2); NEUT % 66.1 % (42.8-82.8); PLATELET COUNT 199 K/MM3 (134-434); RBC 4.22 M/mm3 (3.60-5.2); RDW 19.1 % (11.6-15.6); WHITE BLOOD COUNT 8.7 K/mm3 (4.0-10.0)
[2018-08-23 07:50] LABS: INR 2.51 (0.83-1.09); PROTHROMBIN TIME (PATIENT) 29.9 SEC (9.7-13.0)
[2018-08-23 08:04] LABS: ANION GAP 11 MMOL/L (8-16); BLOOD UREA NITROGEN 22 mg/dL (7-18); CALCIUM 8.3 mg/dL (8.5-10.1); CHLORIDE 102 mmol/L (98-107); CO2 28 mmol/L (21-32); CREATININE 0.7 mg/dL (0.55-1.3); GLUCOSE,RANDOM 70 mg/dL (74-106); POTASSIUM 3.4 mmol/L (3.5-5.1); SODIUM 141 mmol/L (136-145)
[2018-08-23] MEDS: ARFORMOTEROL TARTRATE 15 MCG/2 ML VIAL NEB SCH ×2 (08:26→20:48)
--- NOTE | 2018-08-23 08:47 | PN ---
Progress Note, Physician Chief Complaint: No new complaints - Current Medication List Current Medications: Active Medications Acetaminophen (Tylenol -) 650 mg PO Q6H PRN PRN Reason: PAIN LEVEL 1 - 3 Albuterol Sulfate (Ventolin 0.083% Nebulizer Soln -) 1 amp NEB Q4H PRN PRN Reason: SHORT OF BREATH/WHEEZING Last Admin: 08/23/18 02:37 Dose: 1 amp Albuterol Sulfate (Ventolin Hfa Inhaler -) 2 puff IH Q6H PRN PRN Reason: SHORTNESS OF BREATH Allopurinol (Zyloprim -) 100 mg PO DAILY@1000 [facility] Arformoterol Tartrate (Brovana (Restricted To Pulmonology/Resp) -) 1 amp NEB RBID [facility] Last Admin: 08/23/18 08:26 Dose: 1 amp Digoxin (Lanoxin -) 0.125 mg PO DAILY@1000 [facility] Diltiazem HCl (Cardizem Cd -) 180 mg PO DAILY@1000 [facility] Furosemide (Lasix -) 40 mg PO BIDLASIX [facility] Last Admin: 08/23/18 06:21 Dose: 40 mg Gabapentin (Neurontin -) 100 mg PO TID [facility] Last Admin: 08/23/18 06:21 Dose: 100 mg Glimepiride (Amaryl -) 1 mg PO DAILY@0700 [facility] Last Admin: 08/23/18 06:26 Dose: 1 mg Lactobacillus Acidophilus (Bacid -) 1 tab PO DAILY [facility] Levothyroxine Sodium (Synthroid -) 50 mcg PO DAILY@0700 [facility] Last Admin: 08/23/18 06:27 Dose: 50 mcg Losartan Potassium (Cozaar -) 25 mg PO DAILY@1000 [facility] Mometasone Furoate (Asmanex 220mcg -) 1 puff IH HS [facility] Multi-Ingredient Lotion (Eucerin (Small Jar) -) 1 applic TP DAILY [facility] Nystatin (Nystop Powder -) 1 applic TP DAILY [facility] Potassium Chloride (K-Dur -) 40 meq PO DAILY [facility] Prednisone (Deltasone -) 10 mg PO DAILY [facility] Tiotropium [place] (Spiriva Respimat) 2 puff IH DAILY [facility] Warfarin Sodium (Coumadin -) 4 mg PO DAILY@1800 [facility] Last Admin: 08/22/18 18:05 Dose: 4 mg - Objective Vital Signs: Vital Signs Temperature 99.3 F 08/23/18 06:00 Pulse Rate 89 08/23/18 06:00 Respiratory Rate 20 08/23/18 06:00 Blood Pressure 130/62 08/23/18 06:00 O2 Sat by Pulse Oximetry (%) 97 08/22/18 19:30 Constitutional: No Distress HEENT: Atraumatic, Normocephalic, Conjunctiva Clear, EOM Intact, PERRL. No: Sclera Icterus Neck: Trachea Midline. No: Decreased ROM, Lymphadenopathy Cardiovascular: Pulse Irregular, S1, S2. No: JVD Respiratory: Yes: On Nasal O2, Rales Gastrointestinal: : Normal Bowel Sounds, Soft Extremities: Rt arm abrasion Other (Chronic Venous stasis and Ulcers) Neurological: Alert, Oriented, Motor Strength: WNL, LUE, LLE, RUE, RLE Labs: CBC, BMP 08/23/18 06:00 08/23/18 07:00 INR, PTT INR 2.51 (0.83-1.09) H 08/23/18 07:00 Problem List - Problems (1) Accident due to mechanical fall without injury Assessment/Plan: Fall precaution, PT evaluation, no fracture in imaging Code(s): W19.XXXA - UNSPECIFIED FALL, INITIAL ENCOUNTER Qualifiers: Encounter type: initial encounter Qualified Code(s): W19.XXXA - Unspecified fall, initial encounter (2) Atrial fibrillation Assessment/Plan: Rate controlled cont Home medication inr therapeutic F/U dig level Code(s): I48.91 - UNSPECIFIED ATRIAL FIBRILLATION Qualifiers: Atrial fibrillation type: chronic Qualified Code(s): I48.2 - Chronic atrial fibrillation (3) UTI (urinary tract infection) Assessment/Plan: Previously grew E Faecium will cont Vancomycin F/U culture and ID input Code(s): N39.0 - URINARY TRACT INFECTION, SITE NOT SPECIFIED Qualifiers: Urinary tract infection type: acute cystitis Hematuria presence: with hematuria Qualified Code(s): N30.01 - Acute cystitis with hematuria (4) CHF (congestive heart failure) Assessment/Plan: Diastolic Hf cont Lasix at present compensated Code(s): I50.9 - HEART FAILURE, UNSPECIFIED (5) COPD (chronic obstructive pulmonary disease) Assessment/Plan: Stable cont home management Code(s): J44.9 - CHRONIC OBSTRUCTIVE PULMONARY DISEASE, UNSPECIFIED Qualifiers: COPD type: unspecified COPD Qualified Code(s): J44.9 - Chronic obstructive pulmonary disease, unspecified (6) HTN (hypertension) Assessment/Plan: Well controlled cont current management Code(s): I10 - ESSENTIAL (PRIMARY) HYPERTENSION Qualifiers: Hypertension type: essential hypertension Qualified Code(s): I10 - Essential (primary) hypertension (7) Hypothyroidism Assessment/Plan: Cont Levothyroxine Code(s): E03.9 - HYPOTHYROIDISM, UNSPECIFIED (8) Intertrigo Assessment/Plan: Cont Nystatin powder Code(s): L30.4 - ERYTHEMA INTERTRIGO (9) Morbid obesity Assessment/Plan: Nutrional consult as out patient Code(s): E66.01 - MORBID (SEVERE) OBESITY DUE TO EXCESS CALORIES (10) T2DM (type 2 diabetes mellitus) Assessment/Plan: hold Metformin cont correction dose insulin Code(s): E11.9 - TYPE 2 DIABETES MELLITUS WITHOUT COMPLICATIONS
[2018-08-23] MEDS: DIGOXIN 0.125 MG TABLET (FP) PO SCH (10:15)
[2018-08-23] MEDS: LACTOBACILLUS ACIDOPHILUS 1 TABLET PO SCH (10:15)
[2018-08-23] MEDS: NYSTATIN POWDER 100,000 UNITS/GM - 15 GM TOPICAL POWDER TP SCH (10:15)
[2018-08-23] MEDS: ALLOPURINOL 100 MG TABLET (FP) PO SCH (10:15)
[2018-08-23] MEDS: predniSONE 10 MG TABLET (UD) PO SCH (10:15)
[2018-08-23] MEDS: POTASSIUM CHLORIDE TABS 20 MEQ TABLET.ER (FP) PO SCH (10:15)
[2018-08-23] MEDS: TIOTROPIUM BROMIDE 2.5 MCG (SPIRIVA) RESPIMAT INHALER IH SCH (11:12)
[2018-08-23] MEDS: LOSARTAN POTASSIUM 25 MG TABLET PO SCH (12:05)
[2018-08-23] MEDS: MINERAL OIL/PETROLAT/WATER TOPICAL CREAM 113 GM JAR TP SCH (12:28)
[2018-08-23] MEDS: oxyCODONE HCL 5 MG TABLET PO PRN (16:24)
[2018-08-23] MEDS: WARFARIN NA 2 MG TABLET (UD) PO SCH (17:43)
--- NOTE | 2018-08-23 19:05 | PN ---
Progress Note (short form) - Note Progress Note: ID CONSULT DICTATED RECURRENT UTI S/P MECHANICAL FALL HX VRE, MRSA AWAIT URINE C/S OBTAIN BC CONTACT PRECAUTIONS
[2018-08-23] MEDS: MOMETASONE FUROATE 220 MCG/IH INHALER IH SCH (23:07)
--- NOTE | 2018-08-24 01:51 | CONS ---
DATE OF CONSULTATION: 08/23/2018 The patient is an 83-year-old female who was evaluated for recurrent urinary tract infection. She was admitted to the hospital after a mechanical fall at home. According to the notes, the patient had fallen at her residence and had been on the floor for several hours prior to EMS bringing her to the emergency room. She reports having a mechanical fall. She has no complaints at the present time. She reports recently being treated for a recurrent urinary tract infection with ciprofloxacin. At the present time, she is awake and alert and coherent. She is oriented x3. She has had multiple recent hospitalizations in the past for toxic metabolic encephalopathy secondary to recurrent urinary tract infection. Most recently, she was treated for an enterococcal urinary tract infection. She is awake and alert. She denies dysuria, hematuria, frequency or urgency. PAST MEDICAL HISTORY: Positive for morbid obesity, atrial fibrillation, hypertension, hyperlipidemia, diabetes mellitus, COPD. PAST SURGICAL HISTORY: Status post appendectomy and cholecystectomy. ALLERGIES: No known drug allergies. MEDICATIONS: At the present time include Tylenol, albuterol, Lopressor, Cardizem, Lasix, Neurontin, Amaryl, Synthroid, Cozaar, oxycodone, prednisone, Coumadin. SOCIAL HISTORY: Lives at home in the community. No active tobacco or alcohol use. SYSTEMS REVIEW: Neurologic: No loss of consciousness, seizure activity, or focal weakness. Cardiac: Negative chest pain or palpitations. Respiratory: Negative cough or sputum production. Gastrointestinal: Negative vomiting or diarrhea. Genitourinary: As per HPI. LABORATORY DATA: White count 8.7, hematocrit 35.1, platelet count 199, creatinine 0.7. Urinalysis: 1517 white cells. Chest x-ray: No infiltrate. CAT scan of the head: Negative for acute pathology. CAT scan of the pelvis: No gross fractures noted. PHYSICAL EXAMINATION: General: She is awake and alert. She is seated in bed. Vital Signs: Temperature 99.3, blood pressure 130/62, pulse 89 and regular, respirations 20 per minute. HEENT: Sclerae anicteric. Heart Sounds: S1, S2. Lungs: Clear. Abdomen: Obese. There is a large pannus present. Extremities: Positive for lower extremity edema and chronic venostasis dermatitis. IMPRESSION: 1. Rule out recurrent urinary tract infection. 2. Status post mechanical fall. 3. 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 PLAN: Await culture results. Obtain blood cultures. Patient has received vancomycin. Further recommendations pending culture results and clinical course. Will follow. Thank you for the kind referral. ISAAC CARRASCO M.D. [id number]
[2018-08-24] MEDS ORDERED: PT OWN MED DRAWER 7, Y5N ONE ×3 (05:11→23:23)
[2018-08-24] MEDS: GABAPENTIN 100 MG CAPSULE (FP) PO SCH ×3 (05:55→23:41)
[2018-08-24] MEDS: FUROSEMIDE 40 MG TABLET (FP) PO SCH ×2 (05:56→13:27)
[2018-08-24] MEDS: GLIMEPIRIDE 1 MG TABLET (FP) PO SCH (06:03)
[2018-08-24] MEDS: LEVOTHYROXINE NA 50 MCG TABLET (FP) PO SCH (06:03)
[2018-08-24] MEDS: ARFORMOTEROL TARTRATE 15 MCG/2 ML VIAL NEB SCH ×2 (07:50→21:35)
[2018-08-24 07:52] LABS: BASO % 1.1 % (0-2.0); EOS % 6.5 % (0-4.5); HEMOGLOBIN 10.3 GM/dL (10.7-15.3); LYMPH % 21.5 % (8-40); MCH 26.1 pg (25.7-33.7); MCHC 31.3 g/dl (32.0-36.0); MEAN CELL VOLUME 83.3 fl (80-96); MEAN PLT VOLUME 8.4 fl (7.5-11.1); MONO % 10.3 % (3.8-10.2); NEUT % 60.6 % (42.8-82.8); PLATELET COUNT 184 K/MM3 (134-434); RBC 3.97 M/mm3 (3.60-5.2); RDW 19.1 % (11.6-15.6); WHITE BLOOD COUNT 8.1 K/mm3 (4.0-10.0)
[2018-08-24 08:33] LABS: INR 2.92 (0.83-1.09); PROTHROMBIN TIME (PATIENT) 34.8 SEC (9.7-13.0)
[2018-08-24 09:00] LABS: ANION GAP 9 MMOL/L (8-16); BLOOD UREA NITROGEN 20 mg/dL (7-18); CHLORIDE 102 mmol/L (98-107); CO2 27 mmol/L (21-32); CREATININE 0.7 mg/dL (0.55-1.3); GLUCOSE,RANDOM 85 mg/dL (74-106); POTASSIUM 3.4 mmol/L (3.5-5.1); SODIUM 138 mmol/L (136-145)
--- NOTE | 2018-08-24 09:37 | PN ---
Progress Note (short form) - Note Progress Note: EXECUTIVE PERSONAL ASSISTANT Krzysztof/Hospitalist to document today. Admitted after fall; Hx ESBL UTI; await C/S CT noted and Urology MD consulted. Await PT. At [facility] she is on Coumadin 2mg/4mg alternating QOD
[2018-08-24] MEDS: DIGOXIN 0.125 MG TABLET (FP) PO SCH (10:03)
[2018-08-24] MEDS: POTASSIUM CHLORIDE TABS 20 MEQ TABLET.ER (FP) PO SCH (10:04)
[2018-08-24] MEDS: LOSARTAN POTASSIUM 25 MG TABLET PO SCH (10:05)
[2018-08-24] MEDS: predniSONE 10 MG TABLET (UD) PO SCH (10:05)
[2018-08-24] MEDS: MINERAL OIL/PETROLAT/WATER TOPICAL CREAM 113 GM JAR TP SCH (10:05)
[2018-08-24] MEDS: ALLOPURINOL 100 MG TABLET (FP) PO SCH (10:05)
[2018-08-24] MEDS: NYSTATIN POWDER 100,000 UNITS/GM - 15 GM TOPICAL POWDER TP SCH (10:06)
[2018-08-24] MEDS: TIOTROPIUM BROMIDE 2.5 MCG (SPIRIVA) RESPIMAT INHALER IH SCH (10:07)
[2018-08-24] MEDS: LACTOBACILLUS ACIDOPHILUS 1 TABLET PO SCH (10:09)
[2018-08-24] MEDS: POLYETHYLENE GLYCOL 3350 119 GM BTL PO SCH ×2 (13:27→23:39)
--- NOTE | 2018-08-24 15:15 | PN ---
Progress Note, Physician History of Present Illness: More awake and alert N focal complaint Denies fever/ chills Urine c/s LF BC pending - Current Medication List Current Medications: Active Medications Acetaminophen (Tylenol -) 650 mg PO Q6H PRN PRN Reason: PAIN LEVEL 1 - 3 Last Admin: 08/23/18 14:57 Dose: 650 mg Albuterol Sulfate (Ventolin 0.083% Nebulizer Soln -) 1 amp NEB Q4H PRN PRN Reason: SHORT OF BREATH/WHEEZING Last Admin: 08/23/18 02:37 Dose: 1 amp Albuterol Sulfate (Ventolin Hfa Inhaler -) 2 puff IH Q6H PRN PRN Reason: SHORTNESS OF BREATH Allopurinol (Zyloprim -) 100 mg PO DAILY@1000 [facility] Last Admin: 08/24/18 10:05 Dose: 100 mg Arformoterol Tartrate (Brovana (Restricted To Pulmonology/Resp) -) 1 amp NEB RBID [facility] Last Admin: 08/24/18 07:50 Dose: 1 amp Digoxin (Lanoxin -) 0.125 mg PO DAILY@1000 [facility] Last Admin: 08/24/18 10:03 Dose: 0.125 mg Diltiazem HCl (Cardizem Cd -) 180 mg PO DAILY@1000 [facility] Last Admin: 08/24/18 10:04 Dose: 180 mg Furosemide (Lasix -) 40 mg PO BIDLASIX [facility] Last Admin: 08/24/18 13:27 Dose: 40 mg Gabapentin (Neurontin -) 100 mg PO TID [facility] Last Admin: 08/24/18 13:27 Dose: 100 mg Glimepiride (Amaryl -) 1 mg PO DAILY@0700 [facility] Last Admin: 08/24/18 06:03 Dose: 1 mg Ceftriaxone Sodium (Ceftriaxone 2 Gm-D5w Bag) 2 gm in 50 mls @ 100 mls/hr IVPB DAILY [facility]; Protocol Lactobacillus Acidophilus (Bacid -) 1 tab PO DAILY [facility] Last Admin: 08/24/18 10:09 Dose: 1 tab Levothyroxine Sodium (Synthroid -) 50 mcg PO DAILY@0700 [facility] Last Admin: 08/24/18 06:03 Dose: 50 mcg Losartan Potassium (Cozaar -) 25 mg PO DAILY@1000 [facility] Last Admin: 08/24/18 10:05 Dose: 25 mg Mometasone Furoate (Asmanex 220mcg -) 1 puff IH HS [facility] Last Admin: 08/23/18 23:07 Dose: Not Given Multi-Ingredient Lotion (Eucerin (Small Jar) -) 1 applic TP DAILY [facility] Last Admin: 08/24/18 10:05 Dose: 1 applic Nystatin (Nystop Powder -) 1 applic TP DAILY [facility] Last Admin: 08/24/18 10:06 Dose: 1 applic Oxycodone HCl (Roxicodone -) 5 mg PO Q8H PRN PRN Reason: PAIN LEVEL 6-10 Last Admin: 08/23/18 16:24 Dose: 5 mg Polyethylene Glycol (Miralax (For Daily Use) -) 17 gm PO BID [facility] Last Admin: 08/24/18 13:27 Dose: 17 gm Potassium Chloride (K-Dur -) 40 meq PO DAILY [facility] Last Admin: 08/24/18 10:04 Dose: 40 meq Prednisone (Deltasone -) 10 mg PO DAILY [facility] Last Admin: 08/24/18 10:05 Dose: 10 mg Tiotropium [place] (Spiriva Respimat) 2 puff IH DAILY [facility] Last Admin: 08/24/18 10:07 Dose: 2 puff Warfarin Sodium (Coumadin -) 4 mg PO DAILY@1800 [facility] Last Admin: 08/23/18 17:43 Dose: 4 mg - Objective Vital Signs: Vital Signs Temperature 97.7 F 08/24/18 06:00 Pulse Rate 88 08/24/18 10:03 Respiratory Rate 20 08/24/18 06:00 Blood Pressure 119/58 L 08/24/18 06:00 O2 Sat by Pulse Oximetry (%) 97 08/23/18 21:00 Constitutional: Yes: No Distress, Obese Cardiovascular: Yes: Regular Rate and Rhythm, S1, S2 Respiratory: Yes: CTA Bilaterally Gastrointestinal: Yes: Normal Bowel Sounds, Soft, Abdomen, Obese, Other (+ pannus) Edema: Yes Integumentary: Yes: Venous Stasis Changes Labs: CBC, BMP 08/24/18 06:15 08/24/18 06:15 INR, PTT INR 2.92 (0.83-1.09) H 08/24/18 06:15 Assessment/Plan Recurrent UTI S/P mechancal fall Await c/s Cefriaxone
--- NOTE | 2018-08-24 16:32 | PN ---
Progress Note, Physician Chief Complaint: Pt sitting in bed in no acute distress. reports mild burning upon urination. reports legs gave out when falling at home. Denies any chest pain, sob, n/v/d - Current Medication List Current Medications: Active Medications Acetaminophen (Tylenol -) 650 mg PO Q6H PRN PRN Reason: PAIN LEVEL 1 - 3 Last Admin: 08/23/18 14:57 Dose: 650 mg Albuterol Sulfate (Ventolin 0.083% Nebulizer Soln -) 1 amp NEB Q4H PRN PRN Reason: SHORT OF BREATH/WHEEZING Last Admin: 08/23/18 02:37 Dose: 1 amp Albuterol Sulfate (Ventolin Hfa Inhaler -) 2 puff IH Q6H PRN PRN Reason: SHORTNESS OF BREATH Allopurinol (Zyloprim -) 100 mg PO DAILY@1000 [facility] Last Admin: 08/24/18 10:05 Dose: 100 mg Arformoterol Tartrate (Brovana (Restricted To Pulmonology/Resp) -) 1 amp NEB RBID [facility] Last Admin: 08/24/18 07:50 Dose: 1 amp Digoxin (Lanoxin -) 0.125 mg PO DAILY@1000 [facility] Last Admin: 08/24/18 10:03 Dose: 0.125 mg Diltiazem HCl (Cardizem Cd -) 180 mg PO DAILY@1000 [facility] Last Admin: 08/24/18 10:04 Dose: 180 mg Furosemide (Lasix -) 40 mg PO BIDLASIX [facility] Last Admin: 08/24/18 13:27 Dose: 40 mg Gabapentin (Neurontin -) 100 mg PO TID [facility] Last Admin: 08/24/18 13:27 Dose: 100 mg Glimepiride (Amaryl -) 1 mg PO DAILY@0700 [facility] Last Admin: 08/24/18 06:03 Dose: 1 mg Ceftriaxone Sodium 2 gm/ (Dextrose) 100 mls @ 200 mls/hr IVPB DAILY [facility]; Protocol Lactobacillus Acidophilus (Bacid -) 1 tab PO DAILY [facility] Last Admin: 08/24/18 10:09 Dose: 1 tab Levothyroxine Sodium (Synthroid -) 50 mcg PO DAILY@0700 [facility] Last Admin: 08/24/18 06:03 Dose: 50 mcg Losartan Potassium (Cozaar -) 25 mg PO DAILY@1000 [facility] Last Admin: 08/24/18 10:05 Dose: 25 mg Mometasone Furoate (Asmanex 220mcg -) 1 puff IH HS [facility] Last Admin: 08/23/18 23:07 Dose: Not Given Multi-Ingredient Lotion (Eucerin (Small Jar) -) 1 applic TP DAILY [facility] Last Admin: 08/24/18 10:05 Dose: 1 applic Nystatin (Nystop Powder -) 1 applic TP DAILY [facility] Last Admin: 08/24/18 10:06 Dose: 1 applic Oxycodone HCl (Roxicodone -) 5 mg PO Q8H PRN PRN Reason: PAIN LEVEL 6-10 Last Admin: 08/23/18 16:24 Dose: 5 mg Polyethylene Glycol (Miralax (For Daily Use) -) 17 gm PO BID [facility] Last Admin: 08/24/18 13:27 Dose: 17 gm Potassium Chloride (K-Dur -) 40 meq PO DAILY [facility] Last Admin: 08/24/18 10:04 Dose: 40 meq Prednisone (Deltasone -) 10 mg PO DAILY [facility] Last Admin: 08/24/18 10:05 Dose: 10 mg Tiotropium [place] (Spiriva Respimat) 2 puff IH DAILY [facility] Last Admin: 08/24/18 10:07 Dose: 2 puff Warfarin Sodium (Coumadin -) 4 mg PO DAILY@1800 [facility] Last Admin: 08/23/18 17:43 Dose: 4 mg - Objective Vital Signs: Vital Signs Temperature 98.8 F 08/24/18 15:45 Pulse Rate 90 08/24/18 15:45 Respiratory Rate 20 08/24/18 15:45 Blood Pressure 117/59 L 08/24/18 15:45 O2 Sat by Pulse Oximetry (%) 97 08/24/18 09:00 Constitutional: Yes: Well Nourished, No Distress, Calm, Obese Cardiovascular: Yes: WNL, Regular Rate and Rhythm. No: Murmur, Rub Respiratory: Yes: WNL, Regular, CTA Bilaterally. No: Accessory Muscle Use, Tachypnea, Wheezes Gastrointestinal: Yes: WNL, Normal Bowel Sounds, Soft. No: Distention, Tenderness Genitourinary: Yes: WNL Extremities: Yes: Erythema Integumentary: Yes: Venous Stasis Changes Neurological: Yes: WNL, Alert, Oriented Psychiatric: Yes: WNL, Alert, Oriented Labs: CBC, BMP 08/24/18 06:15 08/24/18 06:15 INR, PTT INR 2.92 (0.83-1.09) H 08/24/18 06:15 - ....Imaging Cat Scan: Report Reviewed (Pelvis: Soft tissue swelling and subcutaneous edema in the lower anterior pelvic wall extending to below the level of the symphysis pubis) Assessment/Plan (1) Fall Assessment/Plan: all imaging neg for fx no prodromal symptoms, trop neg head ct neg PT pt declines SNF monitor Code(s): W19.XXXA - UNSPECIFIED FALL, INITIAL ENCOUNTER Qualifiers: Encounter type: initial encounter Qualified Code(s): W19.XXXA - Unspecified fall, initial encounter (2) Abnormal CT scan, pelvis Assessment/Plan: Pelvis: Soft tissue swelling and subcutaneous edema in the lower anterior pelvic wall extending to below the level of the symphysis pubis urology consulted Code(s): R93.5 - ABN FINDINGS ON DX IMAGING OF ABD REGIONS, INC RETROPERITON (3) UTI (urinary tract infection) Assessment/Plan: UA+, UC growing [id number] ceftriaxone day 1 await culture ID following Code(s): N39.0 - URINARY TRACT INFECTION, SITE NOT SPECIFIED Qualifiers: Urinary tract infection type: acute cystitis Hematuria presence: with hematuria Qualified Code(s): N30.01 - Acute cystitis with hematuria (4) COPD (chronic obstructive pulmonary disease) Assessment/Plan: stable not in exacerbation continue home regimen Code(s): J44.9 - CHRONIC OBSTRUCTIVE PULMONARY DISEASE, UNSPECIFIED Qualifiers: COPD type: unspecified COPD Qualified Code(s): J44.9 - Chronic obstructive pulmonary disease, unspecified (5) Atrial fibrillation Assessment/Plan: rate controlled continue diltiazem, digoxin INR therapeutic coumadin 4mg Code(s): I48.91 - UNSPECIFIED ATRIAL FIBRILLATION Qualifiers: Atrial fibrillation type: chronic Qualified Code(s): I48.2 - Chronic atrial fibrillation (6) CHF (congestive heart failure) Assessment/Plan: chronic, euvolemic continue lasix 40mg bid Code(s): I50.9 - HEART FAILURE, UNSPECIFIED Qualifiers: Qualified Code(s): I50.32 - Chronic diastolic (congestive) heart failure (7) Chronic wound of extremity Assessment/Plan: chronic b/l stasis dermatitis Code(s): [id number] - (8) Diabetes Assessment/Plan: stable bgm insulin sliding scale continue amaryl Code(s): E11.9 - TYPE 2 DIABETES MELLITUS WITHOUT COMPLICATIONS Qualifiers: Diabetes mellitus type: type 2 Diabetes mellitus residential insulin use: without terminal press operator use Diabetes mellitus complication status: with hyperglycemia Qualified Code(s): E11.65 - Type 2 diabetes mellitus with hyperglycemia (9) HTN (hypertension) Assessment/Plan: controlled continue home meds Code(s): I10 - ESSENTIAL (PRIMARY) HYPERTENSION Qualifiers: Hypertension type: essential hypertension Qualified Code(s): I10 - Essential (primary) hypertension (10) Hypothyroidism Assessment/Plan: stable continue levothyroxine Code(s): E03.9 - HYPOTHYROIDISM, UNSPECIFIED (11) Morbid obesity Assessment/Plan: outpt management Code(s): E66.01 - MORBID (SEVERE) OBESITY DUE TO EXCESS CALORIES (12) Hypokalemia Assessment/Plan: kcl 40meq x 1 kcl 40meq daily scheduled ordered monitor bmp Code(s): E87.6 - HYPOKALEMIA (13) Intertrigo Assessment/Plan: pt w/ +abd panniculus +erythema under breast, skin folds nystatin powder continue adequate hygiene Code(s): L30.4 - ERYTHEMA INTERTRIGO
[2018-08-24] MEDS ORDERED: POTASSIUM CHLORIDE TABS 20 MEQ TABLET.ER (FP) PO ONE (16:42)
[2018-08-24] MEDS ORDERED: DEXTROSE 5%-WATER 100 ML IVPB ONE (17:30)
[2018-08-24] MEDS: WARFARIN NA 2 MG TABLET (UD) PO SCH (17:44)
[2018-08-24] MEDS: CEFTRIAXONE 2 GM in DEXTROSE 5%-WATER 100 ML IVPB SCH (17:44)
[2018-08-24] MEDS: MOMETASONE FUROATE 220 MCG/IH INHALER IH SCH (23:41)
[2018-08-25] MEDS ORDERED: PT OWN MED DRAWER 7, Y5N ONE ×2 (06:27→10:13)
[2018-08-25] MEDS: GLIMEPIRIDE 1 MG TABLET (FP) PO SCH (06:28)
[2018-08-25] MEDS: LEVOTHYROXINE NA 50 MCG TABLET (FP) PO SCH (06:28)
[2018-08-25] MEDS: GABAPENTIN 100 MG CAPSULE (FP) PO SCH ×3 (06:28→21:07)
[2018-08-25] MEDS: FUROSEMIDE 40 MG TABLET (FP) PO SCH ×2 (06:28→13:37)
[2018-08-25 07:38] LABS: EOS % 5.4 % (0-4.5); LYMPH % 27.8 % (8-40); MCHC 31.3 g/dl (32.0-36.0); MEAN CELL VOLUME 83.1 fl (80-96); MEAN PLT VOLUME 8.5 fl (7.5-11.1); MONO % 9.5 % (3.8-10.2); NEUT % 56.3 % (42.8-82.8); PLATELET COUNT 198 K/MM3 (134-434); RBC 3.85 M/mm3 (3.60-5.2); WHITE BLOOD COUNT 8.6 K/mm3 (4.0-10.0)
[2018-08-25] MEDS: ARFORMOTEROL TARTRATE 15 MCG/2 ML VIAL NEB SCH ×2 (08:07→19:10)
[2018-08-25 08:11] LABS: ANION GAP 7 MMOL/L (8-16); BLOOD UREA NITROGEN 20 mg/dL (7-18); CALCIUM 8.3 mg/dL (8.5-10.1); CHLORIDE 101 mmol/L (98-107); CO2 28 mmol/L (21-32); CREATININE 0.7 mg/dL (0.55-1.3); GLUCOSE,RANDOM 75 mg/dL (74-106); POTASSIUM 3.9 mmol/L (3.5-5.1); SODIUM 136 mmol/L (136-145)
[2018-08-25] MEDS ORDERED: DEXTROSE 5%-WATER 100 ML IVPB ONE (10:13)
--- NOTE | 2018-08-25 10:13 | PN ---
Progress Note (short form) - Note Progress Note: ART THERAPY CERTIFIED SUPERVISOR Krzysztof/Hospitalist to document today. Urine C/S +ESBL similar to office C/S from Friday. Await Urology MD. CT scans reviewed.
[2018-08-25] MEDS: DIGOXIN 0.125 MG TABLET (FP) PO SCH (10:16)
[2018-08-25] MEDS: POTASSIUM CHLORIDE TABS 20 MEQ TABLET.ER (FP) PO SCH (10:16)
[2018-08-25] MEDS: LACTOBACILLUS ACIDOPHILUS 1 TABLET PO SCH (10:17)
[2018-08-25] MEDS: predniSONE 10 MG TABLET (UD) PO SCH (10:17)
[2018-08-25] MEDS: ALLOPURINOL 100 MG TABLET (FP) PO SCH (10:17)
[2018-08-25] MEDS: LOSARTAN POTASSIUM 25 MG TABLET PO SCH (10:17)
[2018-08-25] MEDS: POLYETHYLENE GLYCOL 3350 119 GM BTL PO SCH ×2 (10:18→21:11)
[2018-08-25] MEDS: CEFTRIAXONE 2 GM in DEXTROSE 5%-WATER 100 ML IVPB SCH (10:18)
[2018-08-25] MEDS: NYSTATIN POWDER 100,000 UNITS/GM - 15 GM TOPICAL POWDER TP SCH (10:19)
[2018-08-25] MEDS: MINERAL OIL/PETROLAT/WATER TOPICAL CREAM 113 GM JAR TP SCH (10:19)
[2018-08-25] MEDS: TIOTROPIUM BROMIDE 2.5 MCG (SPIRIVA) RESPIMAT INHALER IH SCH (10:23)
[2018-08-25 12:14] LABS: INR 3.48 (0.83-1.09); PROTHROMBIN TIME (PATIENT) 41.6 SEC (9.7-13.0)
--- NOTE | 2018-08-25 15:01 | PN ---
Progress Note, Physician Chief Complaint: Pt sitting in bed in no acute distress. reports mild burning upon urination. Denies any chest pain, sob, n/v/d - Current Medication List Current Medications: Active Medications Acetaminophen (Tylenol -) 650 mg PO Q6H PRN PRN Reason: PAIN LEVEL 1 - 3 Last Admin: 08/23/18 14:57 Dose: 650 mg Albuterol Sulfate (Ventolin 0.083% Nebulizer Soln -) 1 amp NEB Q4H PRN PRN Reason: SHORT OF BREATH/WHEEZING Last Admin: 08/23/18 02:37 Dose: 1 amp Albuterol Sulfate (Ventolin Hfa Inhaler -) 2 puff IH Q6H PRN PRN Reason: SHORTNESS OF BREATH Allopurinol (Zyloprim -) 100 mg PO DAILY@1000 [facility] Last Admin: 08/25/18 10:17 Dose: 100 mg Arformoterol Tartrate (Brovana (Restricted To Pulmonology/Resp) -) 1 amp NEB RBID [facility] Last Admin: 08/25/18 08:07 Dose: 1 amp Digoxin (Lanoxin -) 0.125 mg PO DAILY@1000 [facility] Last Admin: 08/25/18 10:16 Dose: 0.125 mg Diltiazem HCl (Cardizem Cd -) 180 mg PO DAILY@1000 [facility] Last Admin: 08/25/18 10:16 Dose: 180 mg Furosemide (Lasix -) 40 mg PO BIDLASIX [facility] Last Admin: 08/25/18 13:37 Dose: 40 mg Gabapentin (Neurontin -) 100 mg PO TID [facility] Last Admin: 08/25/18 13:37 Dose: 100 mg Glimepiride (Amaryl -) 1 mg PO DAILY@0700 [facility] Last Admin: 08/25/18 06:28 Dose: 1 mg Ceftriaxone Sodium 2 gm/ (Dextrose) 100 mls @ 200 mls/hr IVPB DAILY [facility]; Protocol Last Admin: 08/25/18 10:18 Dose: 200 mls/hr Lactobacillus Acidophilus (Bacid -) 1 tab PO DAILY [facility] Last Admin: 08/25/18 10:17 Dose: 1 tab Levothyroxine Sodium (Synthroid -) 50 mcg PO DAILY@0700 [facility] Last Admin: 08/25/18 06:28 Dose: 50 mcg Losartan Potassium (Cozaar -) 25 mg PO DAILY@1000 [facility] Last Admin: 08/25/18 10:17 Dose: 25 mg Mometasone Furoate (Asmanex 220mcg -) 1 puff IH HS [facility] Last Admin: 08/24/18 23:41 Dose: 1 puff Multi-Ingredient Lotion (Eucerin (Small Jar) -) 1 applic TP DAILY [facility] Last Admin: 08/25/18 10:19 Dose: 1 applic Nystatin (Nystop Powder -) 1 applic TP DAILY [facility] Last Admin: 08/25/18 10:19 Dose: 1 applic Oxycodone HCl (Roxicodone -) 5 mg PO Q8H PRN PRN Reason: PAIN LEVEL 6-10 Last Admin: 08/23/18 16:24 Dose: 5 mg Polyethylene Glycol (Miralax (For Daily Use) -) 17 gm PO BID [facility] Last Admin: 08/25/18 10:18 Dose: Not Given Potassium Chloride (K-Dur -) 40 meq PO DAILY [facility] Last Admin: 08/25/18 10:16 Dose: 40 meq Prednisone (Deltasone -) 10 mg PO DAILY [facility] Last Admin: 08/25/18 10:17 Dose: 10 mg Tiotropium [place] (Spiriva Respimat) 2 puff IH DAILY [facility] Last Admin: 08/25/18 10:23 Dose: 2 puff Warfarin Sodium (Coumadin -) 4 mg PO Q2D@1800 [facility] Warfarin Sodium (Coumadin -) 2 mg PO Q2D@1800 [facility] Last Admin: 08/24/18 17:44 Dose: 2 mg - Objective Vital Signs: Vital Signs Temperature 97.8 F 08/25/18 07:13 Pulse Rate 78 08/25/18 10:16 Respiratory Rate 20 08/25/18 07:13 Blood Pressure 115/50 L 08/25/18 07:13 O2 Sat by Pulse Oximetry (%) 97 08/24/18 21:00 Constitutional: Yes: Well Nourished, No Distress, Calm, Obese Cardiovascular: Yes: Regular Rate and Rhythm. No: Murmur Respiratory: Yes: WNL, Regular, CTA Bilaterally. No: Accessory Muscle Use, SOB Gastrointestinal: Yes: WNL, Normal Bowel Sounds, Soft, Abdomen, Obese. No: Distention, Tenderness Genitourinary: Yes: WNL Extremities: Yes: Erythema Edema: Yes Edema: LLE: Trace, RLE: Trace Integumentary: Yes: Venous Stasis Changes Neurological: Yes: WNL, Alert, Oriented Psychiatric: Yes: WNL, Alert, Oriented Labs: CBC, BMP 08/25/18 06:15 08/25/18 06:15 INR, PTT INR 3.48 (0.83-1.09) H 08/25/18 11:25 Assessment/Plan (1) Fall Assessment/Plan: all imaging neg for fx no prodromal symptoms, trop neg head ct neg lumbar spine ct- mod/severe ddd PT pt declines SNF Code(s): W19.XXXA - UNSPECIFIED FALL, INITIAL ENCOUNTER Qualifiers: Encounter type: initial encounter Qualified Code(s): W19.XXXA - Unspecified fall, initial encounter (2) Abnormal CT scan, pelvis Assessment/Plan: Pelvis: Soft tissue swelling and subcutaneous edema in the lower anterior pelvic wall extending to below the level of the symphysis pubis urology consult pending Code(s): R93.5 - ABN FINDINGS ON DX IMAGING OF ABD REGIONS, INC RETROPERITON (3) UTI (urinary tract infection) Assessment/Plan: UA+, UC growing ecoli esbl ceftriaxone d/c'd antibx per ID Code(s): N39.0 - URINARY TRACT INFECTION, SITE NOT SPECIFIED Qualifiers: Urinary tract infection type: acute cystitis Hematuria presence: with hematuria Qualified Code(s): N30.01 - Acute cystitis with hematuria (4) COPD (chronic obstructive pulmonary disease) Assessment/Plan: stable not in exacerbation continue home regimen Code(s): J44.9 - CHRONIC OBSTRUCTIVE PULMONARY DISEASE, UNSPECIFIED Qualifiers: COPD type: unspecified COPD Qualified Code(s): J44.9 - Chronic obstructive pulmonary disease, unspecified (5) Atrial fibrillation Assessment/Plan: rate controlled continue diltiazem, digoxin INR therapeutic coumadin home dose Code(s): I48.91 - UNSPECIFIED ATRIAL FIBRILLATION Qualifiers: Atrial fibrillation type: chronic Qualified Code(s): I48.2 - Chronic atrial fibrillation (6) CHF (congestive heart failure) Assessment/Plan: chronic, euvolemic continue lasix 40mg bid Code(s): I50.9 - HEART FAILURE, UNSPECIFIED Qualifiers: Qualified Code(s): I50.32 - Chronic diastolic (congestive) heart failure (7) Chronic wound of extremity Assessment/Plan: chronic b/l stasis dermatitis Code(s): [id number] - (8) Diabetes Assessment/Plan: stable bgm insulin sliding scale continue amaryl Code(s): E11.9 - TYPE 2 DIABETES MELLITUS WITHOUT COMPLICATIONS Qualifiers: Diabetes mellitus type: type 2 Diabetes mellitus intermediate accountant insulin use: without mcc use Diabetes mellitus complication status: with hyperglycemia Qualified Code(s): E11.65 - Type 2 diabetes mellitus with hyperglycemia (9) HTN (hypertension) Assessment/Plan: controlled continue home meds Code(s): I10 - ESSENTIAL (PRIMARY) HYPERTENSION Qualifiers: Hypertension type: essential hypertension Qualified Code(s): I10 - Essential (primary) hypertension (10) Hypothyroidism Assessment/Plan: stable continue levothyroxine Code(s): E03.9 - HYPOTHYROIDISM, UNSPECIFIED (11) Morbid obesity Assessment/Plan: outpt management Code(s): E66.01 - MORBID (SEVERE) OBESITY DUE TO EXCESS CALORIES (12) Hypokalemia Assessment/Plan: improved kcl 40meq daily scheduled monitor bmp Code(s): E87.6 - HYPOKALEMIA (13) Intertrigo Assessment/Plan: pt w/ +abd panniculus +erythema under breast, skin folds nystatin powder continue adequate hygiene Code(s): L30.4 - ERYTHEMA INTERTRIGO
[2018-08-25] MEDS: MOMETASONE FUROATE 220 MCG/IH INHALER IH SCH (21:06)
[2018-08-25] MEDS: oxyCODONE HCL 5 MG TABLET PO PRN (23:15)
[2018-08-26] MEDS: GLIMEPIRIDE 1 MG TABLET (FP) PO SCH (06:01)
[2018-08-26] MEDS: LEVOTHYROXINE NA 50 MCG TABLET (FP) PO SCH (06:01)
[2018-08-26] MEDS: GABAPENTIN 100 MG CAPSULE (FP) PO SCH ×3 (06:01→22:00)
[2018-08-26] MEDS: FUROSEMIDE 40 MG TABLET (FP) PO SCH ×2 (06:01→14:33)
[2018-08-26] MEDS: MINERAL OIL/PET HY-PHL TOPICAL OINTMENT 454 GM JAR TP SCH ×2 (07:36→14:33)
[2018-08-26 07:42] LABS: BASO % 1.2 % (0-2.0); EOS % 4.4 % (0-4.5); HEMATOCRIT 32.4 % (32.4-45.2); LYMPH % 24.5 % (8-40); MCH 25.9 pg (25.7-33.7); MCHC 30.9 g/dl (32.0-36.0); MEAN CELL VOLUME 83.8 fl (80-96); MEAN PLT VOLUME 8.5 fl (7.5-11.1); MONO % 7.5 % (3.8-10.2); NEUT % 62.4 % (42.8-82.8); PLATELET COUNT 206 K/MM3 (134-434); RBC 3.87 M/mm3 (3.60-5.2); RDW 18.5 % (11.6-15.6); WHITE BLOOD COUNT 9.5 K/mm3 (4.0-10.0)
[2018-08-26 08:07] LABS: ANION GAP 8 MMOL/L (8-16); BLOOD UREA NITROGEN 19 mg/dL (7-18); CALCIUM 8.1 mg/dL (8.5-10.1); CHLORIDE 101 mmol/L (98-107); CO2 28 mmol/L (21-32); CREATININE 0.8 mg/dL (0.55-1.3); GLUCOSE,RANDOM 214 mg/dL (74-106); POTASSIUM 3.7 mmol/L (3.5-5.1); SODIUM 137 mmol/L (136-145)
[2018-08-26 08:15] LABS: INR 2.48 (0.83-1.09); PROTHROMBIN TIME (PATIENT) 29.5 SEC (9.7-13.0)
[2018-08-26] MEDS: ARFORMOTEROL TARTRATE 15 MCG/2 ML VIAL NEB SCH (08:32)
--- NOTE | 2018-08-26 08:45 | PN ---
Progress Note (short form) - Note Progress Note: Dr. Garcia/Shannen to document today. She is complaining of a headache which didn't respond to pain RX; ? repeat CT Brain. Still pain to touch left calf laterally.
--- NOTE | 2018-08-26 09:39 | PN ---
Progress Note, Physician Chief Complaint: Pt sitting in bed in no acute distress. reports mild burning upon urination. Denies any chest pain, sob, n/v/d - Current Medication List Current Medications: Active Medications Acetaminophen (Tylenol -) 650 mg PO Q6H PRN PRN Reason: PAIN LEVEL 1 - 3 Last Admin: 08/23/18 14:57 Dose: 650 mg Albuterol Sulfate (Ventolin 0.083% Nebulizer Soln -) 1 amp NEB Q4H PRN PRN Reason: SHORT OF BREATH/WHEEZING Last Admin: 08/23/18 02:37 Dose: 1 amp Albuterol Sulfate (Ventolin Hfa Inhaler -) 2 puff IH Q6H PRN PRN Reason: SHORTNESS OF BREATH Allopurinol (Zyloprim -) 100 mg PO DAILY@1000 [facility] [place] Last Admin: 08/25/18 10:17 Dose: 100 mg Aluminum Acetate (Burow's Solution -) 1 applic TP UTDICT [facility] [place] Arformoterol Tartrate (Brovana (Restricted To Pulmonology/Resp) -) 1 amp NEB RBID [facility] [place] Last Admin: 08/26/18 08:32 Dose: 1 amp Digoxin (Lanoxin -) 0.125 mg PO DAILY@1000 [facility] [place] Last Admin: 08/25/18 10:16 Dose: 0.125 mg Diltiazem HCl (Cardizem Cd -) 180 mg PO DAILY@1000 [facility] [place] Last Admin: 08/25/18 10:16 Dose: 180 mg Emollient Ointment (Aquaphor -) 1 applic TP DAILY [facility] [place] Last Admin: 08/26/18 07:36 Dose: Not Given Furosemide (Lasix -) 40 mg PO BIDLASIX [facility] [place] Last Admin: 08/26/18 06:01 Dose: 40 mg Gabapentin (Neurontin -) 100 mg PO TID [facility] [place] Last Admin: 08/26/18 06:01 Dose: 100 mg Glimepiride (Amaryl -) 1 mg PO DAILY@0700 [facility] [place] Last Admin: 08/26/18 06:01 Dose: 1 mg Lactobacillus Acidophilus (Bacid -) 1 tab PO DAILY [facility] [place] Last Admin: 08/25/18 10:17 Dose: 1 tab Levothyroxine Sodium (Synthroid -) 50 mcg PO DAILY@0700 [facility] [place] Last Admin: 08/26/18 06:01 Dose: 50 mcg Losartan Potassium (Cozaar -) 25 mg PO DAILY@1000 [facility] [place] Last Admin: 08/25/18 10:17 Dose: 25 mg Mometasone Furoate (Asmanex 220mcg -) 1 puff IH HS [facility] [place] Last Admin: 08/25/18 21:06 Dose: 1 puff Multi-Ingredient Lotion (Eucerin (Small Jar) -) 1 applic TP DAILY [facility] [place] Last Admin: 08/25/18 10:19 Dose: 1 applic Nystatin (Nystop Powder -) 1 applic TP DAILY [facility] [place] Last Admin: 08/25/18 10:19 Dose: 1 applic Oxycodone HCl (Roxicodone -) 5 mg PO Q8H PRN PRN Reason: PAIN LEVEL 6-10 Last Admin: 08/25/18 23:15 Dose: 5 mg Polyethylene Glycol (Miralax (For Daily Use) -) 17 gm PO BID [facility] [place] Last Admin: 08/25/18 21:11 Dose: Not Given Potassium Chloride (K-Dur -) 40 meq PO DAILY [facility] [place] Last Admin: 08/25/18 10:16 Dose: 40 meq Prednisone (Deltasone -) 10 mg PO DAILY [facility] [place] Last Admin: 08/25/18 10:17 Dose: 10 mg Tiotropium [place] (Spiriva Respimat) 2 puff IH DAILY [facility] [place] Last Admin: 08/25/18 10:23 Dose: 2 puff Warfarin Sodium (Coumadin -) 4 mg PO Q2D@1800 [facility] [place] Warfarin Sodium (Coumadin -) 2 mg PO Q2D@1800 [facility] [place] Last Admin: 08/24/18 17:44 Dose: 2 mg - Objective Vital Signs: Vital Signs Temperature 98 F 08/26/18 06:00 Pulse Rate 104 H 08/26/18 06:00 Respiratory Rate 20 08/26/18 06:00 Blood Pressure 146/61 08/26/18 06:00 O2 Sat by Pulse Oximetry (%) 97 08/25/18 21:00 Constitutional: Yes: Well Nourished, No Distress, Calm Cardiovascular: Yes: Regular Rate and Rhythm Respiratory: Yes: WNL, Regular, CTA Bilaterally. No: Accessory Muscle Use, SOB , Tachypnea, Wheezes Gastrointestinal: Yes: WNL, Normal Bowel Sounds, Soft, Abdomen, Obese. No: Distention, Tenderness Genitourinary: Yes: WNL Musculoskeletal: Yes: WNL Edema: Yes Edema: LLE: Trace, RLE: Trace Integumentary: Yes: Venous Stasis Changes Neurological: Yes: WNL, Alert, Oriented Psychiatric: Yes: WNL, Alert, Oriented Labs: CBC, BMP 08/26/18 06:30 08/26/18 06:30 INR, PTT INR 2.48 (0.83-1.09) H 08/26/18 06:30 Assessment/Plan (1) Fall Assessment/Plan: all imaging neg for fx no prodromal symptoms, trop neg head ct neg x [address]- mod/severe ddd PT pt declines SNF Code(s): W19.XXXA - UNSPECIFIED FALL, INITIAL ENCOUNTER Qualifiers: Encounter type: initial encounter Qualified Code(s): W19.XXXA - Unspecified fall, initial encounter (2) Abnormal CT scan, pelvis Assessment/Plan: Pelvis: Soft tissue swelling and subcutaneous edema in the lower anterior pelvic wall extending to below the level of the symphysis pubis urology consult pending Code(s): R93.5 - ABN FINDINGS ON DX IMAGING OF ABD REGIONS, INC RETROPERITON (3) UTI (urinary tract infection) Assessment/Plan: UA+, UC growing ecoli esbl macrobid 7 days ID consult appreciated Code(s): N39.0 - URINARY TRACT INFECTION, SITE NOT SPECIFIED Qualifiers: Urinary tract infection type: acute cystitis Hematuria presence: with hematuria Qualified Code(s): N30.01 - Acute cystitis with hematuria (4) COPD (chronic obstructive pulmonary disease) Assessment/Plan: stable not in exacerbation continue home regimen Code(s): J44.9 - CHRONIC OBSTRUCTIVE PULMONARY DISEASE, UNSPECIFIED Qualifiers: COPD type: unspecified COPD Qualified Code(s): J44.9 - Chronic obstructive pulmonary disease, unspecified (5) Atrial fibrillation Assessment/Plan: rate controlled continue diltiazem, digoxin INR therapeutic coumadin home dose Code(s): I48.91 - UNSPECIFIED ATRIAL FIBRILLATION Qualifiers: Atrial fibrillation type: chronic Qualified Code(s): I48.2 - Chronic atrial fibrillation (6) CHF (congestive heart failure) Assessment/Plan: chronic, euvolemic continue lasix 40mg bid Code(s): I50.9 - HEART FAILURE, UNSPECIFIED Qualifiers: Qualified Code(s): I50.32 - Chronic diastolic (congestive) heart failure (7) Chronic wound of extremity Assessment/Plan: chronic b/l stasis dermatitis Code(s): [id number] - (8) Diabetes Assessment/Plan: stable bgm insulin sliding scale continue amaryl Code(s): E11.9 - TYPE 2 DIABETES MELLITUS WITHOUT COMPLICATIONS Qualifiers: Diabetes mellitus type: type 2 Diabetes mellitus terminal operator insulin use: without terminal operator use Diabetes mellitus complication status: with hyperglycemia Qualified Code(s): E11.65 - Type 2 diabetes mellitus with hyperglycemia (9) HTN (hypertension) Assessment/Plan: controlled continue home meds Code(s): I10 - ESSENTIAL (PRIMARY) HYPERTENSION Qualifiers: Hypertension type: essential hypertension Qualified Code(s): I10 - Essential (primary) hypertension (10) Hypothyroidism Assessment/Plan: stable continue levothyroxine Code(s): E03.9 - HYPOTHYROIDISM, UNSPECIFIED (11) Morbid obesity Assessment/Plan: outpt management Code(s): E66.01 - MORBID (SEVERE) OBESITY DUE TO EXCESS CALORIES (12) Hypokalemia Assessment/Plan: improved kcl 40meq daily scheduled monitor bmp Code(s): E87.6 - HYPOKALEMIA (13) Intertrigo Assessment/Plan: pt w/ +abd panniculus +erythema under breast, skin folds nystatin powder continue adequate hygiene Code(s): L30.4 - ERYTHEMA INTERTRIGO Dispo: home. pending urology consult
[2018-08-26] MEDS ORDERED: ALUMINUM ACETATE TP SCH (09:45)
[2018-08-26] MEDS ORDERED: PT OWN MED DRAWER 7, Y5N ONE ×2 (10:08→12:30)
[2018-08-26] MEDS: LOSARTAN POTASSIUM 25 MG TABLET PO SCH (10:15)
[2018-08-26] MEDS: POTASSIUM CHLORIDE TABS 20 MEQ TABLET.ER (FP) PO SCH (10:15)
[2018-08-26] MEDS: DIGOXIN 0.125 MG TABLET (FP) PO SCH (10:15)
[2018-08-26] MEDS: LACTOBACILLUS ACIDOPHILUS 1 TABLET PO SCH (10:15)
[2018-08-26] MEDS: predniSONE 10 MG TABLET (UD) PO SCH (10:15)
[2018-08-26] MEDS: ALLOPURINOL 100 MG TABLET (FP) PO SCH (10:15)
[2018-08-26] MEDS: TIOTROPIUM BROMIDE 2.5 MCG (SPIRIVA) RESPIMAT INHALER IH SCH (10:16)
[2018-08-26] MEDS: NYSTATIN POWDER 100,000 UNITS/GM - 15 GM TOPICAL POWDER TP SCH (10:16)
[2018-08-26] MEDS: POLYETHYLENE GLYCOL 3350 119 GM BTL PO SCH ×2 (10:16→22:00)
[2018-08-26] MEDS: MINERAL OIL/PETROLAT/WATER TOPICAL CREAM 113 GM JAR TP SCH (10:16)
--- NOTE | 2018-08-26 10:55 | PN ---
Progress Note, Physician History of Present Illness: More awake and alert No focal complaint Denies fever/ chills Urine c/s mixed including MRSA BC negative - Current Medication List Current Medications: Active Medications Acetaminophen (Tylenol -) 650 mg PO Q6H PRN PRN Reason: PAIN LEVEL 1 - 3 Last Admin: 08/23/18 14:57 Dose: 650 mg Albuterol Sulfate (Ventolin 0.083% Nebulizer Soln -) 1 amp NEB Q4H PRN PRN Reason: SHORT OF BREATH/WHEEZING Last Admin: 08/23/18 02:37 Dose: 1 amp Albuterol Sulfate (Ventolin Hfa Inhaler -) 2 puff IH Q6H PRN PRN Reason: SHORTNESS OF BREATH Allopurinol (Zyloprim -) 100 mg PO DAILY@1000 [facility] Last Admin: 08/26/18 10:15 Dose: 100 mg Aluminum Sulfate/Calcium Acetate ([place] -) 1.9 gm TP DAILY [facility] Arformoterol Tartrate (Brovana (Restricted To Pulmonology/Resp) -) 1 amp NEB RBID [facility] Last Admin: 08/26/18 08:32 Dose: 1 amp Digoxin (Lanoxin -) 0.125 mg PO DAILY@1000 [facility] Last Admin: 08/26/18 10:15 Dose: 0.125 mg Diltiazem HCl (Cardizem Cd -) 180 mg PO DAILY@1000 [facility] Last Admin: 08/26/18 10:15 Dose: 180 mg Emollient Ointment (Aquaphor -) 1 applic TP DAILY [facility] Last Admin: 08/26/18 07:36 Dose: Not Given Furosemide (Lasix -) 40 mg PO BIDLASIX [facility] Last Admin: 08/26/18 06:01 Dose: 40 mg Gabapentin (Neurontin -) 100 mg PO TID [facility] Last Admin: 08/26/18 06:01 Dose: 100 mg Glimepiride (Amaryl -) 1 mg PO DAILY@0700 [facility] Last Admin: 08/26/18 06:01 Dose: 1 mg Lactobacillus Acidophilus (Bacid -) 1 tab PO DAILY [facility] Last Admin: 08/26/18 10:15 Dose: 1 tab Levothyroxine Sodium (Synthroid -) 50 mcg PO DAILY@0700 [facility] Last Admin: 08/26/18 06:01 Dose: 50 mcg Losartan Potassium (Cozaar -) 25 mg PO DAILY@1000 [facility] Last Admin: 08/26/18 10:15 Dose: 25 mg Mometasone Furoate (Asmanex 220mcg -) 1 puff IH HS [facility] Last Admin: 08/25/18 21:06 Dose: 1 puff Multi-Ingredient Lotion (Eucerin (Small Jar) -) 1 applic TP DAILY [facility] Last Admin: 08/26/18 10:16 Dose: 1 applic Nitrofurantoin Macrocrystals (Macrodantin -) 50 mg PO Q6HPO [facility] Nystatin (Nystop Powder -) 1 applic TP DAILY [facility] Last Admin: 08/26/18 10:16 Dose: 1 applic Oxycodone HCl (Roxicodone -) 5 mg PO Q8H PRN PRN Reason: PAIN LEVEL 6-10 Last Admin: 08/25/18 23:15 Dose: 5 mg Polyethylene Glycol (Miralax (For Daily Use) -) 17 gm PO BID [facility] Last Admin: 08/26/18 10:16 Dose: Not Given Potassium Chloride (K-Dur -) 40 meq PO DAILY [facility] Last Admin: 08/26/18 10:15 Dose: 40 meq Prednisone (Deltasone -) 10 mg PO DAILY [facility] Last Admin: 08/26/18 10:15 Dose: 10 mg Tiotropium [place] (Spiriva Respimat) 2 puff IH DAILY [facility] Last Admin: 08/26/18 10:16 Dose: 2 puff Warfarin Sodium (Coumadin -) 4 mg PO Q2D@1800 [facility] Warfarin Sodium (Coumadin -) 2 mg PO Q2D@1800 [facility] Last Admin: 08/24/18 17:44 Dose: 2 mg - Objective Vital Signs: Vital Signs Temperature 98.6 F 08/26/18 10:13 Pulse Rate 93 H 08/26/18 10:15 Respiratory Rate 16 08/26/18 10:13 Blood Pressure 118/51 L 08/26/18 10:13 O2 Sat by Pulse Oximetry (%) 97 08/25/18 21:00 Constitutional: Yes: Obese Eyes: Yes: Conjunctiva Clear Cardiovascular: Yes: Regular Rate and Rhythm, S1, S2 Respiratory: Yes: CTA Bilaterally Gastrointestinal: Yes: Normal Bowel Sounds, Soft, Other (+ pannus). No: Tenderness Edema: Yes Integumentary: Yes: Venous Stasis Changes Labs: CBC, BMP 08/26/18 06:30 08/26/18 06:30 INR, PTT INR 2.48 (0.83-1.09) H 08/26/18 06:30 Assessment/Plan Recurrent UTI S/P mechancal fall Substitute nitrofurantoin OK for discharge on po macrobid 100mg bid x 7d
[2018-08-26] MEDS: NITROFURANTOIN MACROCRYSTAL 50 MG CAPSULE (FP) PO SCH ×3 (13:23→23:22)
--- NOTE | 2018-08-26 14:18 | CON.GU ---
Consult Consult Specialty:: Urology Reason for Consultation:: Possible hydronephosis pelvic wall swelling - History Source History Provided By: Patient, Medical Record - Past Medical History Cardio/Vascular: Yes: AFIB, CHF, Deep Vein Thrombosis, HTN, Hyperlipdemia Pulmonary: Yes: Asthma, COPD, O2 Dependent Gastrointestinal: Yes: Hiatal Hernia ...: No Infectious Disease: Yes: MRSA, VREF Musculoskeletal: Yes: Osteoarthritis Endocrine: Yes: Diabetes Mellitus, Hypothyroidism Dermatology: Yes: Cellulitis, Eczema - Past Surgical History Past Surgical History: Yes: Appendectomy, Cholecystectomy, Hernia Repair (times three), Oopherectomy, Tonsillectomy - Alcohol/Substance Use Hx Alcohol Use: No History of Substance Use: reports: None - Smoking History Smoking history: Former smoker Have you smoked in the past 12 months: No Aproximately how many cigarettes per day: 0 If you are a former smoker, when did you quit?: 2007 - Social History Usual Living Arrangement: Alone ADL: Independent History of Recent Travel: No Home Medications - Allergies Allergies/Adverse Reactions: Allergies Allergy/AdvReac Type Severity Reaction Status Date / Time No Known Allergies Allergy Verified 07/11/18 16:55 - Home Medications Home Medications: Ambulatory Orders Albuterol Sulfate Inhaler - [Ventolin HFA Inhaler -] 2 inh IH Q6H PRN #0 inh 04/27 Acetaminophen [Tylenol .Regular Strength -] 650 mg PO Q6H PRN #240 tablet Digoxin [Lanoxin -] 0.125 mg PO AM 09/24/17 Albuterol 0.083% Nebulizer Bonnie [Ventolin 0.083% Nebulizer Soln -] 1 amp NEB Q4H PRN amp 10/02/17 Arformoterol Tartrate [Brovana -] 1 amp NEB RBID amp 10/02/17 Insulin Sliding Scale [Novolog Vial Sliding Scale -] 1 vial SQ TIDAC units Tiotropium [place] [Spiriva] 1 puff IH DAILY inh 10/02/17 Gabapentin [Neurontin -] 100 mg PO TID 04/02/18 Mometasone Furoate [Asmanex 220Mcg -] 1 puff IH DAILY inhaler 04/10/18 Allopurinol [Zyloprim -] 100 mg PO AM 07/11/18 Diltiazem Cd [Cardizem Cd -] 180 mg PO AM 07/11/18 Furosemide [Lasix -] 40 mg PO BID 07/11/18 Glimepiride [Glimepiride -] 1 mg PO AM 07/11/18 Levothyroxine [Synthroid -] 50 mcg PO AM 07/11/18 Losartan Potassium [Cozaar -] 25 mg PO AM 07/11/18 Lactobacillus Acidophilus [Bacid -] 1 tab PO DAILY #7 tab 07/17/18 Mineral Oil/Petrolat,Wht/Water [Eucerin (Small Jar) -] 1 applic TP DAILY #1 jar 07/17/18 Nystatin Powder [Nystop Powder -] 1 applic TP DAILY #14 applic 07/17/18 Potassium Chloride [K-Dur -] 40 meq PO DAILY #30 tablet.er 07/17/18 predniSONE [Deltasone -] 10 mg PO DAILY #7 tablet 07/17/18 Warfarin Na [Coumadin -] 4 mg PO DAILY@1800 08/22/18 Family Disease History - Family Disease History Family Disease History: Heart Disease: Mother ([place]), Other: Father (ETOH cirrhosis), Sister (alive and well) Review of Systems - Review of Systems Genitourinary: reports: Incontinence (2 ppd) Physical Exam- Vital Signs: Vital Signs Temperature 98.6 F 08/26/18 10:13 Pulse Rate 93 H 08/26/18 10:15 Respiratory Rate 16 08/26/18 10:13 Blood Pressure 118/51 L 08/26/18 10:13 O2 Sat by Pulse Oximetry (%) 97 08/25/18 21:00 HENT: Yes: WNL Neck: Yes: WNL Cardiovascular: Yes: WNL Respiratory: Yes: WNL Gastrointestinal: Yes: Soft, Abdomen, Obese Kidneys: Yes: WNL External Genitalia: Yes: WNL Labs: CBC, BMP 08/26/18 06:30 08/26/18 06:30 Imaging - Results Cat Scan: Report Reviewed Problem List - Problems (1) Abnormal CT scan, pelvis Assessment/Plan: Pt w possible hydro vs extrarenal pelvis of kidney Cr 0.8 If clinically indicated order renal scan w lasix Pelvic wall swelling likely subQ from previous history voiding in diapers was not incontinent prior to admission will follow Code(s): R93.5 - ABN FINDINGS ON DX IMAGING OF ABD REGIONS, INC RETROPERITON
[2018-08-26] MEDS: oxyCODONE HCL 5 MG TABLET PO PRN (14:33)
[2018-08-26] MEDS: CALCIUM ACETATE/AL SULFATE TOP 1.9 GM/PACKET PACKET TP SCH (14:34)
[2018-08-26] MEDS ORDERED: WARFARIN NA 2 MG TABLET (UD) PO SCH (18:00)
[2018-08-26] MEDS: WARFARIN NA 2 MG TABLET (UD) PO SCH (18:02)
[2018-08-26] MEDS: MOMETASONE FUROATE 220 MCG/IH INHALER IH SCH (22:00)
[2018-08-27] MEDS: LEVOTHYROXINE NA 50 MCG TABLET (FP) PO SCH (06:19)
[2018-08-27] MEDS: NITROFURANTOIN MACROCRYSTAL 50 MG CAPSULE (FP) PO SCH ×3 (06:19→17:59)
[2018-08-27] MEDS: GABAPENTIN 100 MG CAPSULE (FP) PO SCH ×3 (06:19→21:55)
[2018-08-27] MEDS: GLIMEPIRIDE 1 MG TABLET (FP) PO SCH (06:19)
[2018-08-27] MEDS: FUROSEMIDE 40 MG TABLET (FP) PO SCH ×2 (07:27→14:11)
[2018-08-27] MEDS: ARFORMOTEROL TARTRATE 15 MCG/2 ML VIAL NEB SCH ×2 (07:30→20:51)
[2018-08-27 07:44] LABS: BASO % 1.2 % (0-2.0); EOS % 5.5 % (0-4.5); HEMATOCRIT 32.2 % (32.4-45.2); LYMPH % 26.7 % (8-40); MCH 26.2 pg (25.7-33.7); MCHC 31.1 g/dl (32.0-36.0); MEAN CELL VOLUME 84.2 fl (80-96); MEAN PLT VOLUME 8.2 fl (7.5-11.1); MONO % 8.3 % (3.8-10.2); NEUT % 58.3 % (42.8-82.8); PLATELET COUNT 232 K/MM3 (134-434); RBC 3.82 M/mm3 (3.60-5.2); RDW 18.7 % (11.6-15.6); WHITE BLOOD COUNT 10.5 K/mm3 (4.0-10.0)
[2018-08-27 08:02] LABS: INR 1.74 (0.83-1.09); PROTHROMBIN TIME (PATIENT) 20.7 SEC (9.7-13.0)
[2018-08-27 08:09] LABS: ANION GAP 9 MMOL/L (8-16); BLOOD UREA NITROGEN 23 mg/dL (7-18); CALCIUM 8.3 mg/dL (8.5-10.1); CHLORIDE 101 mmol/L (98-107); CO2 28 mmol/L (21-32); CREATININE 0.9 mg/dL (0.55-1.3); GLUCOSE,RANDOM 95 mg/dL (74-106); MAGNESIUM 1.9 mg/dL (1.8-2.4); POTASSIUM 4.1 mmol/L (3.5-5.1); SODIUM 138 mmol/L (136-145)
--- NOTE | 2018-08-27 08:50 | PN ---
Progress Note (short form) - Note Progress Note: Dr. Garcia to document today. Painful ? superficial phlebitis lateral left calf. Patient has diaper but needs to get OOB + assist to bathroom No PT yesterday. INR 1.74
[2018-08-27] MEDS: LACTOBACILLUS ACIDOPHILUS 1 TABLET PO SCH (09:46)
[2018-08-27] MEDS: LOSARTAN POTASSIUM 25 MG TABLET PO SCH (09:46)
[2018-08-27] MEDS: predniSONE 10 MG TABLET (UD) PO SCH (09:46)
[2018-08-27] MEDS: oxyCODONE HCL 5 MG TABLET PO PRN (09:46)
[2018-08-27] MEDS: POTASSIUM CHLORIDE TABS 20 MEQ TABLET.ER (FP) PO SCH (09:46)
[2018-08-27] MEDS: DIGOXIN 0.125 MG TABLET (FP) PO SCH (09:46)
[2018-08-27] MEDS: ALLOPURINOL 100 MG TABLET (FP) PO SCH (09:47)
[2018-08-27] MEDS: NYSTATIN POWDER 100,000 UNITS/GM - 15 GM TOPICAL POWDER TP SCH (09:47)
[2018-08-27] MEDS: POLYETHYLENE GLYCOL 3350 119 GM BTL PO SCH ×2 (09:47→21:43)
[2018-08-27] MEDS: TIOTROPIUM BROMIDE 2.5 MCG (SPIRIVA) RESPIMAT INHALER IH SCH (09:47)
[2018-08-27] MEDS: MINERAL OIL/PET HY-PHL TOPICAL OINTMENT 454 GM JAR TP SCH (09:48)
[2018-08-27] MEDS ORDERED: PT OWN MED DRAWER 7, Y5N ONE ×2 (13:58→21:54)
[2018-08-27] MEDS: CALCIUM ACETATE/AL SULFATE TOP 1.9 GM/PACKET PACKET TP SCH (14:11)
--- NOTE | 2018-08-27 14:18 | PN ---
Progress Note, Physician Chief Complaint: Pt sitting in bed in no acute distress. still reports burning upon urination. Denies any chest pain, sob, n/v/d - Current Medication List Current Medications: Active Medications Acetaminophen (Tylenol -) 650 mg PO Q6H PRN PRN Reason: PAIN LEVEL 1 - 3 Last Admin: 08/23/18 14:57 Dose: 650 mg Albuterol Sulfate (Ventolin 0.083% Nebulizer Soln -) 1 amp NEB Q4H PRN PRN Reason: SHORT OF BREATH/WHEEZING Last Admin: 08/23/18 02:37 Dose: 1 amp Albuterol Sulfate (Ventolin Hfa Inhaler -) 2 puff IH Q6H PRN PRN Reason: SHORTNESS OF BREATH Allopurinol (Zyloprim -) 100 mg PO DAILY@1000 [facility] Last Admin: 08/27/18 09:47 Dose: 100 mg Aluminum Sulfate/Calcium Acetate ([place] -) 1.9 gm TP DAILY [facility] Last Admin: 08/27/18 14:11 Dose: 1.9 gm Arformoterol Tartrate (Brovana (Restricted To Pulmonology/Resp) -) 1 amp NEB RBID [facility] Last Admin: 08/27/18 07:30 Dose: 1 amp Digoxin (Lanoxin -) 0.125 mg PO DAILY@1000 [facility] Last Admin: 08/27/18 09:46 Dose: 0.125 mg Diltiazem HCl (Cardizem Cd -) 180 mg PO DAILY@1000 [facility] Last Admin: 08/27/18 09:46 Dose: 180 mg Emollient Ointment (Aquaphor -) 1 applic TP DAILY [facility] Last Admin: 08/27/18 09:48 Dose: 1 applic Furosemide (Lasix -) 40 mg PO BIDLASIX [facility] Last Admin: 08/27/18 14:11 Dose: 40 mg Gabapentin (Neurontin -) 100 mg PO TID [facility] Last Admin: 08/27/18 14:12 Dose: 100 mg Glimepiride (Amaryl -) 1 mg PO DAILY@0700 [facility] Last Admin: 08/27/18 06:19 Dose: 1 mg Lactobacillus Acidophilus (Bacid -) 1 tab PO DAILY [facility] Last Admin: 08/27/18 09:46 Dose: 1 tab Levothyroxine Sodium (Synthroid -) 50 mcg PO DAILY@0700 [facility] Last Admin: 08/27/18 06:19 Dose: 50 mcg Losartan Potassium (Cozaar -) 25 mg PO DAILY@1000 [facility] Last Admin: 08/27/18 09:46 Dose: 25 mg Mometasone Furoate (Asmanex 220mcg -) 1 puff IH HS [facility] Last Admin: 08/26/18 22:00 Dose: 1 puff Nitrofurantoin Macrocrystals (Macrodantin -) 50 mg PO Q6HPO [facility] Last Admin: 08/27/18 11:55 Dose: 50 mg Nystatin (Nystop Powder -) 1 applic TP DAILY [facility] Last Admin: 08/27/18 09:47 Dose: 1 applic Oxycodone HCl (Roxicodone -) 5 mg PO Q8H PRN PRN Reason: PAIN LEVEL 6-10 Last Admin: 08/27/18 09:46 Dose: 5 mg Polyethylene Glycol (Miralax (For Daily Use) -) 17 gm PO BID [facility] Last Admin: 08/27/18 09:47 Dose: Not Given Potassium Chloride (K-Dur -) 40 meq PO DAILY [facility] Last Admin: 08/27/18 09:46 Dose: 40 meq Prednisone (Deltasone -) 10 mg PO DAILY [facility] Last Admin: 08/27/18 09:46 Dose: 10 mg Tiotropium [place] (Spiriva Respimat) 2 puff IH DAILY [facility] Last Admin: 08/27/18 09:47 Dose: 2 puff Warfarin Sodium (Coumadin -) 4 mg PO DAILY@1800 [facility] - Objective Vital Signs: Vital Signs Temperature 97.8 F 08/27/18 06:00 Pulse Rate 93 H 08/27/18 09:46 Respiratory Rate 20 08/27/18 06:00 Blood Pressure 102/47 L 08/27/18 06:00 O2 Sat by Pulse Oximetry (%) 97 08/26/18 21:00 Constitutional: Yes: Well Nourished, No Distress, Calm Cardiovascular: Yes: Regular Rate and Rhythm Respiratory: Yes: WNL, Regular, CTA Bilaterally. No: Accessory Muscle Use, SOB , Tachypnea, Wheezes Gastrointestinal: Yes: WNL, Normal Bowel Sounds, Soft, Abdomen, Obese. No: Distention, Tenderness Genitourinary: Yes: WNL Extremities: Yes: Erythema Integumentary: Yes: Venous Stasis Changes Neurological: Yes: WNL, Alert, Oriented Psychiatric: Yes: WNL, Alert, Oriented Labs: CBC, BMP 08/27/18 06:00 08/27/18 06:00 INR, PTT INR 1.74 (0.83-1.09) H 08/27/18 06:00 Assessment/Plan (1) Fall Assessment/Plan: all imaging neg for fx no prodromal symptoms, trop neg head ct neg x [address]- mod/severe ddd PT pt declines SNF Code(s): W19.XXXA - UNSPECIFIED FALL, INITIAL ENCOUNTER Qualifiers: Encounter type: initial encounter Qualified Code(s): W19.XXXA - Unspecified fall, initial encounter (2) Abnormal CT scan, pelvis Assessment/Plan: Pelvis: Soft tissue swelling and subcutaneous edema in the lower anterior pelvic wall extending to below the level of the symphysis pubis urology consult noted renal scan w/ lasix- awaiting read Code(s): R93.5 - ABN FINDINGS ON DX IMAGING OF ABD REGIONS, INC RETROPERITON (3) UTI (urinary tract infection) Assessment/Plan: UA+, UC growing ecoli esbl macrobid 7 days ID consult appreciated Code(s): N39.0 - URINARY TRACT INFECTION, SITE NOT SPECIFIED Qualifiers: Urinary tract infection type: acute cystitis Hematuria presence: with hematuria Qualified Code(s): N30.01 - Acute cystitis with hematuria (4) COPD (chronic obstructive pulmonary disease) Assessment/Plan: stable not in exacerbation continue home regimen Code(s): J44.9 - CHRONIC OBSTRUCTIVE PULMONARY DISEASE, UNSPECIFIED Qualifiers: COPD type: unspecified COPD Qualified Code(s): J44.9 - Chronic obstructive pulmonary disease, unspecified (5) Atrial fibrillation Assessment/Plan: rate controlled continue diltiazem, digoxin INR sub therapeutic- coumadin 4mg Code(s): I48.91 - UNSPECIFIED ATRIAL FIBRILLATION Qualifiers: Atrial fibrillation type: chronic Qualified Code(s): I48.2 - Chronic atrial fibrillation (6) CHF (congestive heart failure) Assessment/Plan: chronic, euvolemic continue lasix 40mg bid Code(s): I50.9 - HEART FAILURE, UNSPECIFIED Qualifiers: Qualified Code(s): I50.32 - Chronic diastolic (congestive) heart failure (7) Chronic wound of extremity Assessment/Plan: chronic b/l stasis dermatitis Code(s): [id number] - (8) Diabetes Assessment/Plan: stable bgm insulin sliding scale continue amaryl Code(s): E11.9 - TYPE 2 DIABETES MELLITUS WITHOUT COMPLICATIONS Qualifiers: Diabetes mellitus type: type 2 Diabetes mellitus group home insulin use: without knifer up use Diabetes mellitus complication status: with hyperglycemia Qualified Code(s): E11.65 - Type 2 diabetes mellitus with hyperglycemia (9) HTN (hypertension) Assessment/Plan: controlled continue home meds Code(s): I10 - ESSENTIAL (PRIMARY) HYPERTENSION Qualifiers: Hypertension type: essential hypertension Qualified Code(s): I10 - Essential (primary) hypertension (10) Hypothyroidism Assessment/Plan: stable continue levothyroxine Code(s): E03.9 - HYPOTHYROIDISM, UNSPECIFIED (11) Morbid obesity Assessment/Plan: outpt management Code(s): E66.01 - MORBID (SEVERE) OBESITY DUE TO EXCESS CALORIES (12) Hypokalemia Assessment/Plan: improved kcl 40meq daily scheduled monitor bmp Code(s): E87.6 - HYPOKALEMIA (13) Intertrigo Assessment/Plan: pt w/ +abd panniculus +erythema under breast, skin folds nystatin powder continue adequate hygiene Code(s): L30.4 - ERYTHEMA INTERTRIGO Dispo: home w/ vns
--- NOTE | 2018-08-27 16:04 | DS ---
Physical Examination Vital Signs: Vital Signs Temperature 97.4 F L 08/27/18 14:40 Pulse Rate 93 H 08/27/18 14:40 Respiratory Rate 20 08/27/18 14:40 Blood Pressure 111/45 L 08/27/18 14:40 O2 Sat by Pulse Oximetry (%) 97 08/27/18 09:00 Labs: CBC, BMP 08/27/18 06:00 08/27/18 06:00 Discharge Summary Reason For Visit: URINARY TRACT INFECTION,WEAKNESS Current Active Problems Abnormal CT scan, pelvis (Acute) Fall (Acute) UTI (urinary tract infection) (Acute) Hospital Course: 83 year old female admitted for evaluation of fall at home. appears mechanical in nature. All imaging neg for fractures. Pelvic CT revealed mod hydronephrosis , soft tissue swelling/edema pelvic wall, urology evaluated, renal scan w/ diuretic neg, renal function stable. UTI- symptomatic, uc grew ecoli esbl, enterococcus, evaluated by ID, pt started on macrobid x 7 days Pt ambulated 10ft, poorly with PT, recommended SNF for rehab, however pt refuses despite multiple attempts. Otherwise, pt is medically stable for discharge, vitals stable, labs unremarkable. Continue coumadin home dose, inr checks per PCP. Recommend home PT for rehabilitation. Follow up as directed 35 minutes spent in discharge planning Condition: Improved - Instructions Diet, Activity, Other Instructions: HOME PT CONTINUE COUMADIN HOME DOSE 4MG/2MG ALTERNATING f/u as directed f/u w/ vascular lower extremities changes Referrals: Xavi Storey MD [Primary Care Provider] - 1 Week Tee Dugan MD [Non Staff, Medical] - 2 Weeks (venous stasis dermatitis ) Disposition: VNS/HOME HEALTH CARE - Home Medications Comprehensive Discharge Medication List: Ambulatory Orders Albuterol Sulfate Inhaler - [Ventolin HFA Inhaler -] 2 inh IH Q6H PRN #0 inh 04/27 Acetaminophen [Tylenol .Regular Strength -] 650 mg PO Q6H PRN #240 tablet Digoxin [Lanoxin -] 0.125 mg PO AM 09/24/17 Albuterol 0.083% Nebulizer Bonnie [Ventolin 0.083% Nebulizer Soln -] 1 amp NEB Q4H PRN amp 10/02/17 Arformoterol Tartrate [Brovana -] 1 amp NEB RBID amp 10/02/17 Insulin Sliding Scale [Novolog Vial Sliding Scale -] 1 vial SQ TIDAC units Tiotropium [place] [Spiriva] 1 puff IH DAILY inh 10/02/17 Gabapentin [Neurontin -] 100 mg PO TID 04/02/18 Mometasone Furoate [Asmanex 220Mcg -] 1 puff IH DAILY inhaler 04/10/18 Allopurinol [Zyloprim -] 100 mg PO AM 07/11/18 Diltiazem Cd [Cardizem Cd -] 180 mg PO AM 07/11/18 Furosemide [Lasix -] 40 mg PO BID 07/11/18 Glimepiride [Glimepiride -] 1 mg PO AM 07/11/18 Levothyroxine [Synthroid -] 50 mcg PO AM 07/11/18 Losartan Potassium [Cozaar -] 25 mg PO AM 07/11/18 Lactobacillus Acidophilus [Bacid -] 1 tab PO DAILY #7 tab 07/17/18 Mineral Oil/Petrolat,Wht/Water [Eucerin (Small Jar) -] 1 applic TP DAILY #1 jar 07/17/18 Nystatin Powder [Nystop Powder -] 1 applic TP DAILY #14 applic 07/17/18 Potassium Chloride [K-Dur -] 40 meq PO DAILY #30 tablet.er 07/17/18 predniSONE [Deltasone -] 10 mg PO DAILY #7 tablet 07/17/18 Warfarin Na [Coumadin -] 4 mg PO DAILY@1800 08/22/18 Nitrofurantoin Macrocrystal [Macrodantin -] 50 mg PO Q6HPO 6 Days #24 capsule
[2018-08-27] MEDS: WARFARIN NA 2 MG TABLET (UD) PO SCH (17:59)
[2018-08-27] MEDS: MOMETASONE FUROATE 220 MCG/IH INHALER IH SCH (21:55)
[2018-08-28] MEDS: oxyCODONE HCL 5 MG TABLET PO PRN ×2 (00:38→15:40)
[2018-08-28] MEDS: GABAPENTIN 100 MG CAPSULE (FP) PO SCH ×2 (06:03→15:10)
[2018-08-28] MEDS: GLIMEPIRIDE 1 MG TABLET (FP) PO SCH (06:03)
[2018-08-28] MEDS: NITROFURANTOIN MACROCRYSTAL 50 MG CAPSULE (FP) PO SCH ×4 (06:03→17:09)
[2018-08-28] MEDS: FUROSEMIDE 40 MG TABLET (FP) PO SCH (06:03)
[2018-08-28] MEDS: LEVOTHYROXINE NA 50 MCG TABLET (FP) PO SCH (06:03)
[2018-08-28 07:28] LABS: BASO % 0.9 % (0-2.0); EOS % 5.5 % (0-4.5); HEMATOCRIT 31.4 % (32.4-45.2); HEMOGLOBIN 10.4 GM/dL (10.7-15.3); LYMPH % 23.4 % (8-40); MCH 27.4 pg (25.7-33.7); MCHC 33.1 g/dl (32.0-36.0); MEAN CELL VOLUME 82.7 fl (80-96); NEUT % 63.2 % (42.8-82.8); PLATELET COUNT 254 K/MM3 (134-434); RDW 18.5 % (11.6-15.6); WHITE BLOOD COUNT 10.7 K/mm3 (4.0-10.0)
[2018-08-28] MEDS: ARFORMOTEROL TARTRATE 15 MCG/2 ML VIAL NEB SCH (08:00)
[2018-08-28 08:05] LABS: ANION GAP 7 MMOL/L (8-16); BLOOD UREA NITROGEN 26 mg/dL (7-18); CALCIUM 8.4 mg/dL (8.5-10.1); CHLORIDE 100 mmol/L (98-107); CO2 30 mmol/L (21-32); CREATININE 0.9 mg/dL (0.55-1.3); GLUCOSE,RANDOM 128 mg/dL (74-106); POTASSIUM 4.1 mmol/L (3.5-5.1); SODIUM 137 mmol/L (136-145)
--- NOTE | 2018-08-28 09:36 | PN ---
Progress Note, Physician Chief Complaint: Pt sitting in bed in no acute distress. pt now agrees to SNF. Denies any chest pain, sob, n/v/d - Current Medication List Current Medications: Active Medications Acetaminophen (Tylenol -) 650 mg PO Q6H PRN PRN Reason: PAIN LEVEL 1 - 3 Last Admin: 08/23/18 14:57 Dose: 650 mg Albuterol Sulfate (Ventolin 0.083% Nebulizer Soln -) 1 amp NEB Q4H PRN PRN Reason: SHORT OF BREATH/WHEEZING Last Admin: 08/23/18 02:37 Dose: 1 amp Albuterol Sulfate (Ventolin Hfa Inhaler -) 2 puff IH Q6H PRN PRN Reason: SHORTNESS OF BREATH Allopurinol (Zyloprim -) 100 mg PO DAILY@1000 [facility] Last Admin: 08/27/18 09:47 Dose: 100 mg Aluminum Sulfate/Calcium Acetate ([place] -) 1.9 gm TP DAILY [facility] Last Admin: 08/27/18 14:11 Dose: 1.9 gm Arformoterol Tartrate (Brovana (Restricted To Pulmonology/Resp) -) 1 amp NEB RBID [facility] Last Admin: 08/28/18 08:00 Dose: 1 amp Digoxin (Lanoxin -) 0.125 mg PO DAILY@1000 [facility] Last Admin: 08/27/18 09:46 Dose: 0.125 mg Diltiazem HCl (Cardizem Cd -) 180 mg PO DAILY@1000 [facility] Last Admin: 08/27/18 09:46 Dose: 180 mg Emollient Ointment (Aquaphor -) 1 applic TP DAILY [facility] Last Admin: 08/27/18 09:48 Dose: 1 applic Furosemide (Lasix -) 40 mg PO BIDLASIX [facility] Last Admin: 08/28/18 06:03 Dose: 40 mg Gabapentin (Neurontin -) 100 mg PO TID [facility] Last Admin: 08/28/18 06:03 Dose: 100 mg Glimepiride (Amaryl -) 1 mg PO DAILY@0700 [facility] Last Admin: 08/28/18 06:03 Dose: 1 mg Lactobacillus Acidophilus (Bacid -) 1 tab PO DAILY [facility] Last Admin: 08/27/18 09:46 Dose: 1 tab Levothyroxine Sodium (Synthroid -) 50 mcg PO DAILY@0700 [facility] Last Admin: 08/28/18 06:03 Dose: 50 mcg Losartan Potassium (Cozaar -) 25 mg PO DAILY@1000 [facility] Last Admin: 08/27/18 09:46 Dose: 25 mg Mometasone Furoate (Asmanex 220mcg -) 1 puff IH HS [facility] Last Admin: 08/27/18 21:55 Dose: 1 puff Nitrofurantoin Macrocrystals (Macrodantin -) 50 mg PO Q6HPO [facility] Last Admin: 08/28/18 06:03 Dose: 50 mg Nystatin (Nystop Powder -) 1 applic TP DAILY [facility] Last Admin: 08/27/18 09:47 Dose: 1 applic Oxycodone HCl (Roxicodone -) 5 mg PO Q8H PRN PRN Reason: PAIN LEVEL 6-10 Last Admin: 08/28/18 00:38 Dose: 5 mg Polyethylene Glycol (Miralax (For Daily Use) -) 17 gm PO BID [facility] Last Admin: 08/27/18 21:43 Dose: Not Given Potassium Chloride (K-Dur -) 40 meq PO DAILY [facility] Last Admin: 08/27/18 09:46 Dose: 40 meq Prednisone (Deltasone -) 10 mg PO DAILY [facility] Last Admin: 08/27/18 09:46 Dose: 10 mg Tiotropium [place] (Spiriva Respimat) 2 puff IH DAILY [facility] Last Admin: 08/27/18 09:47 Dose: 2 puff Warfarin Sodium (Coumadin -) 4 mg PO DAILY@1800 [facility] Last Admin: 08/27/18 17:59 Dose: 4 mg - Objective Vital Signs: Vital Signs Temperature 97.8 F 08/28/18 06:00 Pulse Rate 80 08/28/18 06:00 Respiratory Rate 20 08/28/18 06:00 Blood Pressure 145/56 L 08/28/18 06:00 O2 Sat by Pulse Oximetry (%) 97 08/27/18 21:00 Constitutional: Yes: Well Nourished, No Distress, Calm Cardiovascular: Yes: Regular Rate and Rhythm Respiratory: Yes: WNL, Regular, CTA Bilaterally. No: Accessory Muscle Use, Tachypnea, Wheezes Gastrointestinal: Yes: WNL, Normal Bowel Sounds, Soft, Abdomen, Obese. No: Distention, Tenderness Genitourinary: Yes: WNL Extremities: Yes: Erythema Edema: Yes Edema: LLE: Trace, RLE: Trace Integumentary: Yes: Venous Stasis Changes Neurological: Yes: WNL, Alert, Oriented Psychiatric: Yes: WNL, Alert, Oriented Labs: CBC, BMP 08/28/18 06:00 08/28/18 06:00 INR, PTT INR 1.74 (0.83-1.09) H 08/27/18 06:00 Assessment/Plan (1) Fall Assessment/Plan: all imaging neg for fx no prodromal symptoms, trop neg head ct neg x [address]- mod/severe ddd PT Code(s): W19.XXXA - UNSPECIFIED FALL, INITIAL ENCOUNTER Qualifiers: Encounter type: initial encounter Qualified Code(s): W19.XXXA - Unspecified fall, initial encounter (2) Abnormal CT scan, pelvis Assessment/Plan: Pelvis: Soft tissue swelling and subcutaneous edema in the lower anterior pelvic wall extending to below the level of the symphysis pubis urology consult noted renal scan w/ lasix neg Code(s): R93.5 - ABN FINDINGS ON DX IMAGING OF ABD REGIONS, INC RETROPERITON (3) UTI (urinary tract infection) Assessment/Plan: UA+, UC growing ecoli esbl macrobid 7 days ID consult appreciated Code(s): N39.0 - URINARY TRACT INFECTION, SITE NOT SPECIFIED Qualifiers: Urinary tract infection type: acute cystitis Hematuria presence: with hematuria Qualified Code(s): N30.01 - Acute cystitis with hematuria (4) COPD (chronic obstructive pulmonary disease) Assessment/Plan: stable not in exacerbation continue home regimen Code(s): J44.9 - CHRONIC OBSTRUCTIVE PULMONARY DISEASE, UNSPECIFIED Qualifiers: COPD type: unspecified COPD Qualified Code(s): J44.9 - Chronic obstructive pulmonary disease, unspecified (5) Atrial fibrillation Assessment/Plan: rate controlled continue diltiazem, digoxin INR sub therapeutic- coumadin 4mg Code(s): I48.91 - UNSPECIFIED ATRIAL FIBRILLATION Qualifiers: Atrial fibrillation type: chronic Qualified Code(s): I48.2 - Chronic atrial fibrillation (6) CHF (congestive heart failure) Assessment/Plan: chronic, euvolemic noticing pt getting dry will decrease lasix to 30 bid Code(s): I50.9 - HEART FAILURE, UNSPECIFIED Qualifiers: Qualified Code(s): I50.32 - Chronic diastolic (congestive) heart failure (7) Chronic wound of extremity Assessment/Plan: chronic b/l stasis dermatitis Code(s): [id number] - (8) Diabetes Assessment/Plan: stable bgm insulin sliding scale continue amaryl Code(s): E11.9 - TYPE 2 DIABETES MELLITUS WITHOUT COMPLICATIONS Qualifiers: Diabetes mellitus type: type 2 Diabetes mellitus joint terminal attack controller insulin use: without joint terminal attack controller use Diabetes mellitus complication status: with hyperglycemia Qualified Code(s): E11.65 - Type 2 diabetes mellitus with hyperglycemia (9) HTN (hypertension) Assessment/Plan: controlled continue home meds Code(s): I10 - ESSENTIAL (PRIMARY) HYPERTENSION Qualifiers: Hypertension type: essential hypertension Qualified Code(s): I10 - Essential (primary) hypertension (10) Hypothyroidism Assessment/Plan: stable continue levothyroxine Code(s): E03.9 - HYPOTHYROIDISM, UNSPECIFIED (11) Morbid obesity Assessment/Plan: outpt management Code(s): E66.01 - MORBID (SEVERE) OBESITY DUE TO EXCESS CALORIES (12) Hypokalemia Assessment/Plan: resolved kcl 40meq daily scheduled monitor bmp Code(s): E87.6 - HYPOKALEMIA (13) Intertrigo Assessment/Plan: pt w/ +abd panniculus +erythema under breast, skin folds nystatin powder continue adequate hygiene Code(s): L30.4 - ERYTHEMA INTERTRIGO Dispo: Pt and family wants SNF. SW aware. awaiting placement
[2018-08-28 10:03] LABS: INR 1.79 (0.83-1.09); PROTHROMBIN TIME (PATIENT) 21.3 SEC (9.7-13.0)
[2018-08-28] MEDS ORDERED: PT OWN MED DRAWER 7, Y5N ONE (10:34)
[2018-08-28] MEDS: MINERAL OIL/PET HY-PHL TOPICAL OINTMENT 454 GM JAR TP SCH (10:58)
[2018-08-28] MEDS: predniSONE 10 MG TABLET (UD) PO SCH (10:58)
[2018-08-28] MEDS: ALLOPURINOL 100 MG TABLET (FP) PO SCH (10:58)
[2018-08-28] MEDS: DIGOXIN 0.125 MG TABLET (FP) PO SCH (10:58)
[2018-08-28] MEDS: LACTOBACILLUS ACIDOPHILUS 1 TABLET PO SCH (10:58)
[2018-08-28] MEDS: POTASSIUM CHLORIDE TABS 20 MEQ TABLET.ER (FP) PO SCH (10:58)
[2018-08-28] MEDS: LOSARTAN POTASSIUM 25 MG TABLET PO SCH (10:58)
[2018-08-28] MEDS: CALCIUM ACETATE/AL SULFATE TOP 1.9 GM/PACKET PACKET TP SCH (10:59)
[2018-08-28] MEDS: POLYETHYLENE GLYCOL 3350 119 GM BTL PO SCH (10:59)
[2018-08-28] MEDS: TIOTROPIUM BROMIDE 2.5 MCG (SPIRIVA) RESPIMAT INHALER IH SCH (10:59)
[2018-08-28] MEDS: NYSTATIN POWDER 100,000 UNITS/GM - 15 GM TOPICAL POWDER TP SCH (11:00)
[2018-08-28] MEDS ORDERED: FUROSEMIDE 20 MG TABLET (FP) PO SCH (12:51)
[2018-08-28 14:49] VITALS: BP 137/51; PULSE 90; TEMP 98
[2018-08-28] MEDS: WARFARIN NA 2 MG TABLET (UD) PO SCH (17:09)
== END 2018-08-28 19:27 | DRG 690 ==
LOC: JER 10:46 → JERBED 14:55 → J8W 20:20
PROVIDERS: ADMIT Internal Medicine; ATTEND Nurse Practitioner Family
DX: N13.6 Pyonephrosis (principal); I50.32 Chronic diastolic (congestive) heart failure; Z68.42 Body mass index [BMI] 45.0-49.9, adult; B95.2 Enterococcus as the cause of diseases classified elsewhere; L30.4 Erythema intertrigo; E78.5 Hyperlipidemia, unspecified; E66.01 Morbid (severe) obesity due to excess calories; E87.6 Hypokalemia; K44.9 Diaphragmatic hernia without obstruction or gangrene; E03.9 Hypothyroidism, unspecified; E11.65 Type 2 diabetes mellitus with hyperglycemia; L30.9 Dermatitis, unspecified; I11.0 Hypertensive heart disease with heart failure; I48.2 Chronic atrial fibrillation; J44.9 Chronic obstructive pulmonary disease, unspecified; R93.5 Abnormal findings on diagnostic imaging of other abdominal regions, including retroperitoneum; W18.30XA Fall on same level, unspecified, initial encounter; Y92.092 Bedroom in other non-institutional residence as the place of occurrence of the external cause; Z86.718 Personal history of other venous thrombosis and embolism; Z99.81 Dependence on supplemental oxygen
CPT/HCPCS: 36415; 70450-TC; 71045-TC-FY; 72131-TC; 72192-TC; 73090-TC-RT-FY; 73523-TC-FY; 73564-TC-LT-FY; 73564-TC-RT-FY; 78708-TC; 80048; 80053; 80162; 81003; 81015; 82550; 82553; 82962; 83605; 83735; 84484; 85025; 85610; 85730; 87040; 87086; 87186; 90715; 93005; 93010; 94640; 97116-GP; 99285-25; A9562; J0131; J7030

== ENCOUNTER 2018-12-10 08:52 | Inpatient (IN) | payer OTHER ==
[2018-12-10] MEDS ORDERED: ALBUTEROL SO4 2.5/IPRATROPIUM 0.5 INH SOL 3 ML VIAL.NEB. NEB ONE ×3 (09:24→10:49)
--- NOTE | 2018-12-10 09:37 | PDOC ---
History of Present Illness - General Chief Complaint: Injury Stated Complaint: FALL Time Seen by Provider: 12/10/18 09:20 History Source: Patient Exam Limitations: No Limitations - History of Present Illness Initial Comments: 12/10/18 09:39 83-year-old female presents to the ED for evaluation status post fall this morning at around 1 AM. Patient states was attempting to get in her new bed which did not have her rails on when she could not Swing her second leg on the bed causing her to land on her knees. Patient states has no discomfort and has no complaints presently. as per the niece patient was found at 7:30 in the morning when she came home from work and is concerned with the amount of time she was on the ground for. She immediately called EMS to escorted patient to the ER. Patient does have history of CHF, venous stasis ulcers where she receives wound care weekly, obesity, and diabetes. Pt states did not hit her head and was alert following the fall but did fall asleep on the floor until her niece arrived since she does not have a med alert castle and was unable to get herself up off the ground Occurred: reports: this morning Severity: reports: moderate Pain Location: reports: none Method of Injury: Yes: fall Modifying Factors: improves with: None Loss of Consciousness: no loss of consciousness Associated Symptoms (Fall): denies symptoms Past History - Travel Traveled outside of the country in the last 30 days: No Close contact w/someone who was outside of country & ill: No - Past Medical History Allergies/Adverse Reactions: Allergies Allergy/AdvReac Type Severity Reaction Status Date / Time No Known Allergies Allergy Verified 12/10/18 09:05 Home Medications: Ambulatory Orders Albuterol Sulfate Inhaler - [Ventolin HFA Inhaler -] 2 inh IH Q6H PRN #0 inh 04/27 Acetaminophen [Tylenol .Regular Strength -] 650 mg PO Q6H PRN #240 tablet Digoxin [Lanoxin -] 0.125 mg PO AM 09/24/17 Albuterol 0.083% Nebulizer Bonnie [Ventolin 0.083% Nebulizer Soln -] 1 amp NEB Q4H PRN amp 10/02/17 Arformoterol Tartrate [Brovana -] 1 amp NEB RBID amp 10/02/17 Insulin Sliding Scale [Novolog Vial Sliding Scale -] 1 vial SQ TIDAC units Tiotropium [place] [Spiriva] 1 puff IH DAILY inh 10/02/17 Gabapentin [Neurontin -] 100 mg PO TID 04/02/18 Mometasone Furoate [Asmanex 220Mcg -] 1 puff IH DAILY inhaler 04/10/18 Allopurinol [Zyloprim -] 100 mg PO AM 07/11/18 Diltiazem Cd [Cardizem Cd -] 180 mg PO AM 07/11/18 Glimepiride [Glimepiride -] 1 mg PO AM 07/11/18 Levothyroxine [Synthroid -] 50 mcg PO AM 07/11/18 Losartan Potassium [Cozaar -] 25 mg PO AM 07/11/18 Lactobacillus Acidophilus [Bacid -] 1 tab PO DAILY #7 tab 07/17/18 Mineral Oil/Petrolat,Wht/Water [Eucerin (Small Jar) -] 1 applic TP DAILY #1 jar 07/17/18 Nystatin Powder [Nystop Powder -] 1 applic TP DAILY #14 applic 07/17/18 Potassium Chloride [K-Dur -] 40 meq PO DAILY #30 tablet.er 07/17/18 predniSONE [Deltasone -] 10 mg PO DAILY #7 tablet 07/17/18 Warfarin Na [Coumadin -] 4 mg PO DAILY@1800 08/22/18 Nitrofurantoin Macrocrystal [Macrodantin -] 50 mg PO Q6HPO 6 Days #24 capsule Furosemide [Lasix -] 30 mg PO BIDLASIX tablet 08/28/18 Anemia: No Asthma: Yes Cancer: No Cardiac Disorders: Yes (ATRIAL FIBRILLATION) CVA: No COPD: Yes CHF: Yes DVT: No Dementia: Yes Diabetes: Yes GI Disorders: Yes (HIATAL HERNIA, OBSTRUCTION) Disorders: Yes (uti) HTN: Yes Hypercholesterolemia: Yes Liver Disease: No Seizures: No Thyroid Disease: Yes (HYPO) - Surgical History Abdominal Surgery: Yes (HERNIA REPAIR X 3) Appendectomy: Yes (RUPTURED) Cardiac Surgery: Yes (cardioversion x 2) Cholecystectomy: Yes Lung Surgery: No Neurologic Surgery: No Orthopedic Surgery: No - Immunization History Immunization Up to Date: Yes - Suicide/Smoking/Psychosocial Hx Smoking Status: No Smoking History: Unknown if ever smoked Have you smoked in the past 12 months: No Number of Cigarettes Smoked Daily: 0 If you are a former smoker, when did you quit?: 2007 Cigars Per Day: 0 Hx Alcohol Use: No Drug/Substance Use Hx: No Substance Use Type: None Hx Substance Use Treatment: No Patient Lives Alone: No Lives with/in: niece Trauma Specific PMHX - Complaint Specific PMHX Arthritis: Yes Review of Systems - Review of Systems Able to Perform ROS?: No Is the patient limited Mohawk proficient: No Constitutional: No: Symptoms Reported HEENTM: No: Symptoms Reported Respiratory: No: Symptoms reported Cardiac (ROS): No: Symptoms Reported ABD/GI: No: Symptoms Reported : No: Symptoms Reported Musculoskeletal: No: Symptoms Reported Integumentary: No: Symptoms Reported Neurological: No: Symptoms reported Endocrine: No: Symptoms Reported Hematologic/Lymphatic: No: Symptoms Reported *Physical Exam - Vital Signs Last Vital Signs Temp Pulse Resp BP Pulse Ox 98.3 F 78 24 H 145/74 97 12/10/18 09:05 12/10/18 09:05 12/10/18 09:05 12/10/18 09:05 12/10/18 09:05 - Physical Exam General Appearance: Yes: Nourished, Appropriately Dressed. No: Apparent Distress HEENT: positive: EOMI, JAMEL, Pharynx Normal (dry) Neck: positive: Supple Respiratory/Chest: positive: Rapid RR (mild), Wheezing (mild expiratory) Cardiovascular: positive: Regular Rhythm, Regular Rate. negative: Murmur Heart Score/ECG Review - ECG Intrepretation Rhythm: Regular Rhythm (afib 93, rbbb, unchanged from 09/01) ED Treatment Course - LABORATORY CBC & Chemistry Diagram: 12/10/18 09:50 12/10/18 09:50 - RADIOLOGY Radiology Studies Ordered: Category Date Time Status CHEST X-RAY PORTABLE* [RAD] Stat Radiology 12/10/18 09:23 Ordered Medical Decision Making - Medical Decision Making 12/10/18 10:01 Chief complaint: Status post mechanical fall at 1 AM this morning while trying to go back in bed after using the restroom. No physical complaints. History CHF obesity oxygen dependency at 2 L Exam: 97% with 2 L of O2 nasal cannula, covered wound to the right lower extremity, expiratory wheezing noted bilaterally with minimal crackles Plan: Labs, oxygen chest x-ray, urine via straight catheter DuoNeb 12/10/18 11:44 Laboratory Tests 12/10/18 12/10/18 12/10/18 09:50 09:50 10:00 WBC 11.0 H Hgb 12.6 Hct 41.7 D MCV 79.7 L MCH 24.1 L D RDW 20.1 H Neutrophils % 79.2 D Sodium 143 Potassium 3.5 Random Glucose 121 H Calcium 9.1 Magnesium 1.8 Total Bilirubin 1.1 H AST 34 ALT 13 Alkaline Phosphatase 128 H Creatine Kinase 203 H Troponin I 0.02 Urine Blood 1+ H Urine Nitrite Negative Ur Leukocyte Esterase 3+ H Urine WBC (Auto) 564 Urine RBC (Auto) 9 Pt w/ multiresistant u cx. Pt's son states pt has become weaker over the last week and often becomes OSB w/ min exertion, Will contact dr. Garcia since pt is seen by dr johnson to discuss admission for iv abx and rehab *DC/Admit/Observation/Transfer Diagnosis at time of Disposition: Fall, UTI (lower urinary tract infection), Morbid obesity with BMI of 45.0-49.9 , adult, Infection with multi-drug resistant microorganisms, Weakness - Discharge Dispostion Decision to Admit order: Yes - Referrals Referrals: Xavi Storey MD [Primary Care Provider] - - Patient Instructions - Post Discharge Activity
[2018-12-10] MEDS ORDERED: ERTAPENEM SODIUM 1 GM in SODIUM CHLORIDE 50 ML IVPB ONE ×2 (10:00→12:07)
[2018-12-10 10:08] LABS: BASO % 0.8 % (0-2.0); EOS % 0.6 % (0-4.5); HEMATOCRIT 41.7 % (32.4-45.2); HEMOGLOBIN 12.6 GM/dL (10.7-15.3); LYMPH % 11.4 % (8-40); MCH 24.1 pg (25.7-33.7); MCHC 30.2 g/dl (32.0-36.0); MEAN CELL VOLUME 79.7 fl (80-96); MEAN PLT VOLUME 7.9 fl (7.5-11.1); NEUT % 79.2 % (42.8-82.8); PLATELET COUNT 292 K/MM3 (134-434); RBC 5.24 M/mm3 (3.60-5.2); RDW 20.1 % (11.6-15.6)
--- NOTE | 2018-12-10 10:10 | PDOC ---
*Physical Exam - Vital Signs Last Vital Signs Temp Pulse Resp BP Pulse Ox 97.1 F L 82 24 H 108/46 L 97 12/10/18 09:05 12/10/18 09:05 12/10/18 09:05 12/10/18 09:05 12/10/18 09:05 Heart Score/ECG Review #1 ECG reviewed & interpreted by me at: 10:00 12/10/18 10:47 afib 93, right bundle branch block, no std/linh, QTC 499 msec, T wave abnormality ED Treatment Course - LABORATORY CBC & Chemistry Diagram: 12/10/18 09:50 12/10/18 09:50 - Medications Given in the ED: ED Medications Discontinued Medications Generic Name Dose Route Start Last Admin Trade Name Freq PRN Reason Stop Dose Admin Albuterol/Ipratropium 1 amp 12/10/18 09:24 12/10/18 09:41 Duoneb - NEB 12/10/18 09:25 1 amp ONCE ONE Administration Medical Decision Making - Medical Decision Making 12/10/18 10:10 Pt seen by the Advanced Practice Provider under my direct supervision Pt interviewed and examined Ancillary studies reviewed I agree with plan as outlined 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 The patient is alert and aware oriented 3. She reports that she was at home and as she attempted again to bed she fell to the ground. She actually denies head trauma, denies headache, nausea, vomiting. However, the patient was on the ground for approximately 8 hours prior to being found. She denies pain at this moment. However, patient walks with a walker at baseline and has difficulty relating. I agree with the nurse practitioners plan to value for the patient. At this time, the patient is certain that she did not hit her head. We will observe her at this time. Patient complains of no bony pain at this time. However, we'll need to investigate for other etiology such urine tract infection metabolic disarray's and other issues. *DC/Admit/Observation/Transfer - Referrals Referrals: Xavi Storey MD [Primary Care Provider] - - Patient Instructions - Post Discharge Activity
[2018-12-10 10:35] LABS: EPI CELLS 0.9 /HPF (0-5); PH,URINE 6.5 (5.0-8.0); URINE APPEARANCE CLOUDY; URINE BACTERIA 1772.7 /hpf (NEGATIVE); URINE BILIRUBIN NEGATIVE (NEGATIVE); URINE CASTS 8 /hpf (0-8); URINE COLOR YELLOW; URINE GLUCOSE (UA) NEGATIVE (NEGATIVE); URINE KETONE NEGATIVE (NEGATIVE); URINE LEUK ESTERASE 3+ (NEGATIVE); URINE NITRITE NEGATIVE (NEGATIVE); URINE PROTEIN NEGATIVE (NEGATIVE); URINE RBC 9 /hpf (0-4); URINE UROBILINOGEN 0.2 mg/dL (0.2-1.0); URINE WBC 564 /hpf (0-5)
[2018-12-10 10:36] LABS: ALBUMIN 3.4 g/dl (3.4-5.0); ALK PHOS 128 U/L (45-117); ANION GAP 9 MMOL/L (8-16); BILIRUBIN,TOTAL 1.1 mg/dL (0.2-1); BLOOD UREA NITROGEN 16 mg/dL (7-18); CALCIUM 9.1 mg/dL (8.5-10.1); CHLORIDE 105 mmol/L (98-107); CO2 29 mmol/L (21-32); CREATININE 0.7 mg/dL (0.55-1.3); GLUCOSE,RANDOM 121 mg/dL (74-106); MAGNESIUM 1.8 mg/dL (1.8-2.4); POTASSIUM 3.5 mmol/L (3.5-5.1); SGOT/AST 34 U/L (15-37); SGPT/ALT 13 U/L (13-61); SODIUM 143 mmol/L (136-145); TOT PROT 7.1 g/dl (6.4-8.2)
[2018-12-10] MEDS ORDERED: HEPARIN NA (PORCINE) 5,000 UNITS/ML 1ML VIAL SQ SCH (14:00)
--- NOTE | 2018-12-10 15:12 | EKG ---
Test Reason : Blood Pressure : / mmHG Vent. Rate : 093 BPM Atrial Rate : 093 BPM P-R Int : 000 ms QRS Dur : 134 ms QT Int : 402 ms P-R-T Axes : 000 106 -27 degrees QTc Int : 499 ms POOR DATA QUALITY, INTERPRETATION MAY BE ADVERSELY AFFECTED ATRIAL FIBRILLATION RIGHT BUNDLE BRANCH BLOCK T WAVE ABNORMALITY, CONSIDER LATERAL ISCHEMIA ABNORMAL ECG WHEN COMPARED WITH ECG OF 22-AUG-2018 13:57, INVERTED T WAVES HAVE REPLACED NONSPECIFIC T WAVE ABNORMALITY IN INFERIOR LEADS Confirmed by CAROL DIAZ MD ([id number]) on 12/10/2018 3:12:11 PM Referred By: Confirmed By:CAROL DIAZ MD
[2018-12-10] MEDS ORDERED: HEPARIN NA (PORCINE) 5,000 UNITS/ML 1ML VIAL ONE (15:30)
--- NOTE | 2018-12-10 15:35 | PN ---
Teaching Attending Note Name of Resident: Danii Arreola ATTENDING PHYSICIAN STATEMENT I saw and evaluated the patient. I reviewed the resident's note and discussed the case with the resident. I agree with the resident's findings and plan as documented with exceptions below. SUBJECTIVE: 83 yof with PMHx of morbid obesity, COPD on 2L home oxygen, KATERINA, NIDDM (Poorly controlled), Afib on AC, ?DVT, LE wounds ([facility]ed at [facility]), multiple wound infection with resistant organism in the past, h/o ESBL UTI, multiple admissions with falls when declined rehab, comes back with fall at home . Patient reports, was trying to get to her bed last night, when slipped and fell to her knees and then her side, tried to support herself with her walker. Denies any head trauma, LOC, fall on hips or buttocks. Was unable to get up, stayed on floor all night. This AM, son called EMS, she was brought to the ED. Patient reports lower abdominal pain a week ago when reportedly was told by PCP had a 'UTI", but unsure if was on antibiotics. Currently reports dysuria, occasional blood in urine, though none recently. Denies any abdominal or back pain, fevers, chills, recent URI like illness, sick contacts or hospitalization. 12 point ROS done. has chronic bilateral knee pain, leg pain from chronic wounds but no new hip pain, headache or concerns otherwise. OBJECTIVE: Vital Signs Period Temp Pulse Resp BP Sys/Luke Pulse Ox Last 24 Hr 97.1 F 82 24 108/46 97-97 Intake & Output 12/07/18 12/08/18 12/09/18 12/10/18 23:59 23:59 23:59 23:59 Output Total 1000 Balance -1000 Weight 270 lb GENERAL: Awake, alert, and fully oriented, mild tachypnea, but able to talk in full sentences HEAD: Normal with no signs of trauma. EYES: Pupils equal, round and reactive to light, extraocular movements intact, sclera anicteric, conjunctiva clear. No lid lag. EARS, NOSE, THROAT: Ears normal, nares patent, oropharynx clear without exudates. Moist mucous membranes. NECK: Normal range of motion, supple, limited exam given habitus LUNGS: Decreased air entry all over, no wheezing or rales, limited exam. HEART:S1S2 irregularly irregular ABDOMEN: Soft, Large protuberant abdomen with panniculitis. skin ios tough and thickened and elephantiasis like +BS, vague tenderness on superficial exam but limited exam MUSCULOSKELETAL: limited movements in bed, no CVA tenderness, able to move both legs in bed at hip and knees (reports chronic knee pain R>L limiting movements) UPPER EXTREMITIES: 2+ pulses, warm, well-perfused. No cyanosis. No clubbing. No peripheral edema. LOWER EXTREMITIES: Bilateral LE edema with chronic skin changes, Right leg Janneth bandage, no visible discharge, bilateral feet edema NEUROLOGICAL: AAOX3, facial symmetry, moves all extremities, further exam limited PSYCHIATRIC: Cooperative. Good eye contact. Appropriate mood and affect. SKIN: Warm, dry, normal turgor, no rashes or lesions noted, normal capillary refill. Home Medications Medication Instructions Recorded Unobtainable 12/10/18 Active Medications Heparin Sodium (Porcine) (Heparin -) 5,000 unit SQ TID LYUDMILA Last Admin: 12/10/18 15:31 Dose: 5,000 unit Ertapenem 1 gm/ Sodium (Chloride) 50 mls @ 100 mls/hr IVPB ONCE ONE Stop: 12/11/18 10:29 Laboratory Results - last 24 hr 12/10/18 12/10/18 12/10/18 09:50 09:50 10:00 WBC 11.0 H RBC 5.24 H Hgb 12.6 Hct 41.7 D MCV 79.7 L MCH 24.1 L D MCHC 30.2 L RDW 20.1 H Plt Count 292 MPV 7.9 Absolute Neuts (auto) 8.7 H Neutrophils % 79.2 D Lymphocytes % 11.4 D Monocytes % 8.0 Eosinophils % 0.6 D Basophils % 0.8 Nucleated RBC % 0 PT with INR INR Sodium 143 Potassium 3.5 Chloride 105 Carbon Dioxide 29 Anion Gap 9 BUN 16 Creatinine 0.7 Creat Clearance w eGFR 80.11 Random Glucose 121 H Calcium 9.1 Magnesium 1.8 Total Bilirubin 1.1 H AST 34 ALT 13 Alkaline Phosphatase 128 H Creatine Kinase 203 H Creatine Kinase Index 2.8 CK-MB (CK-2) 5.8 H Troponin I 0.02 Total Protein 7.1 Albumin 3.4 Urine Color Yellow Urine Appearance Cloudy Urine pH 6.5 Ur Specific [place] 1.009 L Urine Protein Negative Urine Glucose (UA) Negative Urine Ketones Negative Urine Blood 1+ H Urine Nitrite Negative Urine Bilirubin Negative Urine Urobilinogen 0.2 Ur Leukocyte Esterase 3+ H Urine WBC (Auto) 564 Urine RBC (Auto) 9 Urine Casts (Auto) 8 U Epithel Cells (Auto) 0.9 Urine Bacteria (Auto) 1772.7 12/10/18 15:20 WBC RBC Hgb Hct MCV MCH MCHC RDW Plt Count MPV Absolute Neuts (auto) Neutrophils % Lymphocytes % Monocytes % Eosinophils % Basophils % Nucleated RBC % PT with INR 28.10 H INR 2.36 H Sodium Potassium Chloride Carbon Dioxide Anion Gap BUN Creatinine Creat Clearance w eGFR Random Glucose Calcium Magnesium Total Bilirubin AST ALT Alkaline Phosphatase Creatine Kinase Creatine Kinase Index CK-MB (CK-2) Troponin I Total Protein Albumin Urine Color Urine Appearance Urine pH Ur Specific [place] Urine Protein Urine Glucose (UA) Urine Ketones Urine Blood Urine Nitrite Urine Bilirubin Urine Urobilinogen Ur Leukocyte Esterase Urine WBC (Auto) Urine RBC (Auto) Urine Casts (Auto) U Epithel Cells (Auto) Urine Bacteria (Auto) CXR - cardiomegaly, no acute process CT A/p done, results pending EKG Afib 93, RBBB ASSESSMENT AND PLAN: 83 yof with PMHx of morbid obesity, COPD on 2L home oxygen, KATERINA, NIDDM (Poorly controlled), Afib on AC, ?DVT, LE wounds (Followed at [facility]), multiple wound infection with resistant organism in the past, h/o ESBL UTI, multiple admissions with falls when declined rehab, admitted with fall and UTI -Mechanical fall -Lower complicated UTI with urinary retention -COPD on 2L home oxygen -Afib on coumadin -Bilateral LE chronic wounds -NIDDM (poorly controlled) -KATERINA -Morbid obesity Plan: Ertapenem, follow up urine/blood cx. ID consult. h/o hydronephrosis 08/2018 when seen by urology and neg renal scan with lasix. Evidence of urinary retention in the ED, wilkinson placed. Voiding trial once ambulatory. Follow up CT A/P. No back pain or spinal tenderness or h/o trauma to spine noted. PT eval Wound care consult. Nebs prn. Short course prednisone if worsening dyspnea. No evidence of exacerbation currently. Continue coumadin ISS/diabetic diet. Continue digoxin/diltiazem/lasix/ARB. DVTPPX on coumadin Dispo pending clinical improvement Plan discussed with patient in detail, all questions answered. patient with multiple admissions for fall, lives alone and reportedly declined rehab on multiple occasions. 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 Total admit time 65 min.
[2018-12-10 15:43] LABS: INR 2.36 (0.83-1.09); PROTHROMBIN TIME (PATIENT) 28.1 SEC (9.7-13.0)
--- NOTE | 2018-12-10 16:25 | HP ---
CHIEF COMPLAINT: fall PCP: HISTORY OF PRESENT ILLNESS: This is a 83 year old female with a history of morbid obesity, COPD on 2L home oxygen, KATERINA, NIDDM, Afib on AC, LE wounds, chronic venous stasis, who presents after falling at home while trying to get into bed. She then was lying on the floor, unable to get up, until her son found her the next day and brought her into the hospital. History of recent UTI. Previous mirco +MRSA, + ESBL. Recent Travel: no PAST MEDICAL HISTORY: as above PAST SURGICAL HISTORY: Social History: Smoking:no Alcohol:no Drugs: no Family History: Allergies No Known Allergies Allergy (Verified 12/10/18 09:05) HOME MEDICATIONS: Home Medications Medication Instructions Recorded Allopurinol [Zyloprim -] 100 mg PO DAILY 12/10/18 Digoxin [Lanoxin -] 0.125 mg PO DAILY 12/10/18 Folic Acid 1 mg PO DAILY 12/10/18 Furosemide 40 mg PO BID 12/10/18 Gabapentin 100 mg PO TID 12/10/18 Glimepiride 1 mg PO DAILY 12/10/18 Levothyroxine [Synthroid -] 50 mcg PO DAILY 12/10/18 Losartan Potassium 25 mg PO DAILY 12/10/18 Potassium Chloride 20 meq PO DAILY 12/10/18 Warfarin Na [Coumadin] 2 mg PO Q48H 12/10/18 Warfarin Sodium 4 mg PO ASDIR 12/10/18 REVIEW OF SYSTEMS CONSTITUTIONAL: Absent: fever, chills, diaphoresis, generalized weakness, malaise, loss of appetite, weight change HEENT: Absent: rhinorrhea, nasal congestion, throat pain, throat swelling, difficulty swallowing, mouth swelling, ear pain, eye pain, visual changes CARDIOVASCULAR: Absent: chest pain, syncope, palpitations, irregular heart rate, lightheadedness , peripheral edema RESPIRATORY: Absent: cough, shortness of breath, dyspnea with exertion, orthopnea, wheezing, stridor, hemoptysis GASTROINTESTINAL: Absent: abdominal pain, abdominal distension, nausea, vomiting, diarrhea, constipation, melena, hematochezia GENITOURINARY: Positive dysuria: Absent:frequency, urgency, hesitancy, hematuria, flank pain, genital pain MUSCULOSKELETAL: Absent: myalgia, arthralgia, joint swelling, back pain, neck pain SKIN: Absent: rash, itching, pallor HEMATOLOGIC/IMMUNOLOGIC: Absent: easy bleeding, easy bruising, lymphadenopathy, frequent infections ENDOCRINE: Absent: unexplained weight gain, unexplained weight loss, heat intolerance, cold intolerance NEUROLOGIC: Absent: headache, focal weakness or paresthesias, dizziness, unsteady gait, seizure, mental status changes, bladder or bowel incontinence PSYCHIATRIC: Absent: anxiety, depression, suicidal or homicidal ideation, hallucinations. PHYSICAL EXAMINATION Vital Signs - 24 hr 12/10/18 12/10/18 09:05 09:30 Temperature 97.1 F L Pulse Rate 82 Respiratory 24 H Rate Blood Pressure 108/46 L O2 Sat by Pulse 97 97 Oximetry (%) GENERAL: Morbidly obese awake, alert, and fully oriented, in no acute distress. NECK: Normal range of motion, supple without lymphadenopathy, JVD, or masses. LUNGS: Breath sounds equal, clear to auscultation bilaterally. No wheezes, and no crackles. No accessory muscle use. HEART: Regular rate and irreg rhythm, normal S1 and S2 without murmur, rub or gallop. ABDOMEN: Soft, nontender, not distended, normoactive bowel sounds, no guarding, no rebound, no masses. No hepatomegaly or splenomegaly. MUSCULOSKELETAL: Normal range of motion at all joints. No bony deformities or tenderness. No CVA tenderness. UPPER EXTREMITIES: 2+ pulses, warm, well-perfused. No cyanosis. No clubbing. No peripheral edema. LOWER EXTREMITIES: 2+ pulses, warm, well-perfused. No calf tenderness.bilateral LE edema; chronic venous stasis changes; +ulcer wounds; dressed NEUROLOGICAL: Cranial nerves II-XII intact. Normal speech PSYCHIATRIC: Cooperative. Good eye contact. Appropriate mood and affect. SKIN: Warm, dry, normal turgor, no rashes or lesions noted, normal capillary refill. Laboratory Results - last 24 hr 12/10/18 12/10/18 12/10/18 09:50 09:50 10:00 WBC 11.0 H RBC 5.24 H Hgb 12.6 Hct 41.7 D MCV 79.7 L MCH 24.1 L D MCHC 30.2 L RDW 20.1 H Plt Count 292 MPV 7.9 Absolute Neuts (auto) 8.7 H Neutrophils % 79.2 D Lymphocytes % 11.4 D Monocytes % 8.0 Eosinophils % 0.6 D Basophils % 0.8 Nucleated RBC % 0 PT with INR INR Sodium 143 Potassium 3.5 Chloride 105 Carbon Dioxide 29 Anion Gap 9 BUN 16 Creatinine 0.7 Creat Clearance w eGFR 80.11 Random Glucose 121 H Calcium 9.1 Magnesium 1.8 Total Bilirubin 1.1 H AST 34 ALT 13 Alkaline Phosphatase 128 H Creatine Kinase 203 H Creatine Kinase Index 2.8 CK-MB (CK-2) 5.8 H Troponin I 0.02 Total Protein 7.1 Albumin 3.4 Urine Color Yellow Urine Appearance Cloudy Urine pH 6.5 Ur Specific [place] 1.009 L Urine Protein Negative Urine Glucose (UA) Negative Urine Ketones Negative Urine Blood 1+ H Urine Nitrite Negative Urine Bilirubin Negative Urine Urobilinogen 0.2 Ur Leukocyte Esterase 3+ H Urine WBC (Auto) 564 Urine RBC (Auto) 9 Urine Casts (Auto) 8 U Epithel Cells (Auto) 0.9 Urine Bacteria (Auto) 1772.7 12/10/18 15:20 WBC RBC Hgb Hct MCV MCH MCHC RDW Plt Count MPV Absolute Neuts (auto) Neutrophils % Lymphocytes % Monocytes % Eosinophils % Basophils % Nucleated RBC % PT with INR 28.10 H INR 2.36 H Sodium Potassium Chloride Carbon Dioxide Anion Gap BUN Creatinine Creat Clearance w eGFR Random Glucose Calcium Magnesium Total Bilirubin AST ALT Alkaline Phosphatase Creatine Kinase Creatine Kinase Index CK-MB (CK-2) Troponin I Total Protein Albumin Urine Color Urine Appearance Urine pH Ur Specific [place] Urine Protein Urine Glucose (UA) Urine Ketones Urine Blood Urine Nitrite Urine Bilirubin Urine Urobilinogen Ur Leukocyte Esterase Urine WBC (Auto) Urine RBC (Auto) Urine Casts (Auto) U Epithel Cells (Auto) Urine Bacteria (Auto) ASSESSMENT/PLAN: This is a 83 year old morbidly obese female with a history of COPD, CHF, AFIB< chronic venous stasis who presents after fall at home, unable to get up from floor for over 1 day. #mechanical fall -PT eval ; no complaints of pain #elevated: ck -monitor for rhabdo -rech ck #UTI; hx esbl -ertapenam -id following -with [facility]kinson due to urinary retention #atrial fibrillation -on warfarin -rate controlled with digoxin #hypothyroid: -levothyroxine #DM: -bgm -insulin ss #b/l leg woundfrom chronic venous statis; -wound care -on lasix #hx of COPD ; not in acute exacerbation; on home o2? -not on any broncodilators ? -duoneb prn DIet; low fat VTE: on warfarin Disposition: PT eval ; possible sniff Visit type - Emergency Visit Emergency Visit: Yes Care time: The patient presented to the Emergency Department on the above date and was hospitalized for further evaluation of their emergent condition. - New Patient This patient is new to me today: Yes Date on this admission: 12/10/18 - Critical Care Critical Care patient: No
[2018-12-10] MEDS: NYSTATIN POWDER 100,000 UNITS/GM - 15 GM TOPICAL POWDER TP SCH (16:26)
[2018-12-10] MEDS ORDERED: WARFARIN SODIUM 4 MG PO SCH (16:30)
[2018-12-10] MEDS ORDERED: ALBUTEROL SO4 2.5/IPRATROPIUM 0.5 INH SOL 3 ML VIAL.NEB. NEB PRN (16:40)
[2018-12-10] MEDS: FUROSEMIDE 40 MG TABLET (FP) PO SCH (17:35)
[2018-12-10] MEDS ORDERED: FUROSEMIDE 40 MG/4 ML INJECTABLE VIAL ONE (17:35)
[2018-12-10] MEDS: INSULIN SLIDING SCALE (NOVOLOG) 1 VIAL SQ SCH ×2 (17:42→22:19)
[2018-12-10] MEDS: WARFARIN NA 2 MG TABLET (UD) PO SCH (18:22)
[2018-12-10] MEDS ORDERED: WARFARIN NA 1 MG TABLET (FP) ONE (18:22)
[2018-12-10] MEDS ORDERED: GABAPENTIN 100 MG CAPSULE (FP) ONE (22:06)
[2018-12-10] MEDS ORDERED: INSULIN (NOVOLOG) ASPART 100 UNITS/ML 10ML VIAL ONE (22:06)
[2018-12-10] MEDS: GABAPENTIN 100 MG CAPSULE (FP) PO SCH (22:19)
[2018-12-11] MEDS: INSULIN SLIDING SCALE (NOVOLOG) 1 VIAL SQ SCH ×4 (05:00→21:35)
[2018-12-11] MEDS: GABAPENTIN 100 MG CAPSULE (FP) PO SCH ×3 (05:56→21:35)
[2018-12-11] MEDS: FUROSEMIDE 40 MG TABLET (FP) PO SCH ×2 (05:56→13:31)
[2018-12-11] MEDS: LEVOTHYROXINE NA 50 MCG TABLET (FP) PO SCH (06:10)
[2018-12-11 08:30] LABS: BASO % 1.2 % (0-2.0); EOS % 3.1 % (0-4.5); HEMATOCRIT 35.4 % (32.4-45.2); HEMOGLOBIN 10.7 GM/dL (10.7-15.3); LYMPH % 24.1 % (8-40); MCH 24.2 pg (25.7-33.7); MCHC 30.4 g/dl (32.0-36.0); MEAN CELL VOLUME 79.7 fl (80-96); MEAN PLT VOLUME 8.2 fl (7.5-11.1); MONO % 8.5 % (3.8-10.2); NEUT % 63.1 % (42.8-82.8); PLATELET COUNT 234 K/MM3 (134-434); RBC 4.44 M/mm3 (3.60-5.2); RDW 20.1 % (11.6-15.6); WHITE BLOOD COUNT 5.4 K/mm3 (4.0-10.0)
[2018-12-11 08:37] LABS: ANION GAP 5 MMOL/L (8-16); BLOOD UREA NITROGEN 16 mg/dL (7-18); CHLORIDE 106 mmol/L (98-107); CO2 30 mmol/L (21-32); CREATININE 0.6 mg/dL (0.55-1.3); GLUCOSE,RANDOM 97 mg/dL (74-106); POTASSIUM 3.5 mmol/L (3.5-5.1); SODIUM 141 mmol/L (136-145)
[2018-12-11 08:52] LABS: INR 2.78 (0.83-1.09); PROTHROMBIN TIME (PATIENT) 33.1 SEC (9.7-13.0)
[2018-12-11] MEDS: LOSARTAN POTASSIUM 25 MG TABLET PO SCH (09:08)
[2018-12-11] MEDS: FOLIC ACID 1 MG TABLET (FP) PO SCH (09:09)
[2018-12-11] MEDS: DIGOXIN 0.125 MG TABLET (FP) PO SCH (09:09)
[2018-12-11] MEDS: NYSTATIN POWDER 100,000 UNITS/GM - 15 GM TOPICAL POWDER TP SCH (09:13)
--- NOTE | 2018-12-11 09:43 | PN ---
Progress Note (short form) - Note Progress Note: Hospitalist to document today. Patient claims issues with new bad caused her to fall. Still hasn't obtained device to summon EMS and family. Await urine C/S.
--- NOTE | 2018-12-11 09:43 | CONSULT ---
- Consultation REQUESTING PROVIDER: CONSULT REQUEST: We have been asked to surgically evaluate this patient for RLE wound care PCP:Libra Crump MD HISTORY OF PRESENT ILLNESS: Pt admitted to the hospital after a fall when attempting to get into her bed. No LOC she states that she miss stepped. She denies any history of fevers, CP, SOB. Has been going to the wound center where she has a weekly dressing changes. Overall her legs haven't been weeping. At home she wears her compression devices once a day. PMHx: morbid obesity, COPD, NIDDM, Afib on AC, chronic venous stasis PSHx: Home Medications Medication Instructions Recorded Allopurinol [Zyloprim -] 100 mg PO DAILY 12/10/18 Digoxin [Lanoxin -] 0.125 mg PO DAILY 12/10/18 Folic Acid 1 mg PO DAILY 12/10/18 Furosemide 40 mg PO BID 12/10/18 Gabapentin 100 mg PO TID 12/10/18 Glimepiride 1 mg PO DAILY 12/10/18 Levothyroxine [Synthroid -] 50 mcg PO DAILY 12/10/18 Losartan Potassium 25 mg PO DAILY 12/10/18 Potassium Chloride 20 meq PO DAILY 12/10/18 Warfarin Na [Coumadin] 2 mg PO Q48H 12/10/18 Warfarin Sodium 4 mg PO ASDIR 12/10/18 Allergies Allergy/AdvReac Type Severity Reaction Status Date / Time No Known Allergies Allergy Verified 12/10/18 09:05 REVIEW OF SYSTEMS: CONSTITUTIONAL: Absent: fever, chills, CARDIOVASCULAR: Absent: chest pain, syncope PHYSICAL EXAM: GENERAL: Awake, alert, and fully oriented, in no acute distress. LOWER EXTREMITIES: 2+DP pulses, warm, well-perfused. No calf tenderness. No ulcers to LLE. RLE with dried/scaly skin. No open wounds or drainage noted. No erythema. Sacrum: Linear skin breakdown(superficial) approximately 2 cm in length, zero depth. No erythema to the skin. NEUROLOGICAL: Normal speech, gait not observed. PSYCH: Cooperative. Good eye contact. Appropriate mood and affect. Vital Signs Temperature 97.4 F L 12/11/18 06:00 Pulse Rate 80 12/11/18 09:09 Respiratory Rate 12 12/11/18 06:00 Blood Pressure 108/51 L 12/11/18 06:00 O2 Sat by Pulse Oximetry (%) 96 12/11/18 03:00 Lab Results WBC 5.4 K/mm3 (4.0-10.0) 12/11/18 07:30 RBC 4.44 M/mm3 (3.60-5.2) 12/11/18 07:30 Hgb 10.7 GM/dL (10.7-15.3) 12/11/18 07:30 Hct 35.4 % (32.4-45.2) D 12/11/18 07:30 MCV 79.7 fl (80-96) L 12/11/18 07:30 MCHC 30.4 g/dl (32.0-36.0) L 12/11/18 07:30 RDW 20.1 % (11.6-15.6) H 12/11/18 07:30 Plt Count 234 K/MM3 (134-434) 12/11/18 07:30 Sodium 141 mmol/L (136-145) 12/11/18 07:30 Potassium 3.5 mmol/L (3.5-5.1) 12/11/18 07:30 Chloride 106 mmol/L (98-107) 12/11/18 07:30 Carbon Dioxide 30 mmol/L (21-32) 12/11/18 07:30 Anion Gap 5 MMOL/L (8-16) L 12/11/18 07:30 BUN 16 mg/dL (7-18) 12/11/18 07:30 Creatinine 0.6 mg/dL (0.55-1.3) 12/11/18 07:30 Random Glucose 97 mg/dL (74-106) 12/11/18 07:30 Calcium 9.0 mg/dL (8.5-10.1) 12/11/18 07:30 INR 2.78 (0.83-1.09) H 12/11/18 07:30 Laboratory Tests 12/10/18 12/11/18 10:00 07:30 PT with INR 33.10 H INR 2.78 H Urine Color Yellow Urine Appearance Cloudy Urine pH 6.5 Urine Glucose (UA) Negative Urine Ketones Negative Urine Blood 1+ H Urine Nitrite Negative Urine Bilirubin Negative Urine Urobilinogen 0.2 Ur Leukocyte Esterase 3+ H Duplex study: superficial vein insufficiency to distal thigh vessels and GSV. No insufficiency to the deep venous system. Problem List - Problems (1) Chronic venous stasis Assessment/Plan: PT with evidence of chronic venous stasis, wounds appear to be healing with visits to the wound center for dressing changes. Will continue compression with rachel wraps b/l to LE at all times and elevation, lasix as per the medical team. D/w Dr. Dugan, wound care ordered and the patient to follow-up with him as an outpt She is being treated for a UTI, IV abx given and cultures to follow as per the medical service. Code(s): I87.8 - OTHER SPECIFIED DISORDERS OF VEINS
[2018-12-11] MEDS ORDERED: ERTAPENEM SODIUM 1 GM in SODIUM CHLORIDE 50 ML IVPB ONE (10:00)
[2018-12-11] MEDS: ALBUTEROL SO4 0.083% IH SOL 2.5 MG/3 ML VIAL.NEB. NEB SCH (10:44)
[2018-12-11] MEDS: ALLOPURINOL 100 MG TABLET (FP) PO SCH (11:06)
[2018-12-11] MEDS: TIOTROPIUM BROMIDE 2.5 MCG (SPIRIVA) RESPIMAT INHALER IH SCH (11:06)
--- NOTE | 2018-12-11 11:32 | PN ---
Progress Note (short form) - Note Progress Note: ID consult dictated imp/reccd 83 yo female history of obesity, venous stasis s/p fall at home admitted s/p fall, was on the floor all night no LOC she is alert no fevers but reports dysuria and hematuria UA with pyuria started on ertapenem based on prior cultures, urine culture growing enterococcus will switch to vancomycin pending culture results, hopefully po amox contact isolation for prior history of multidrug resistant organisms (MRSA, ecoli esbl) Problem List - Problems (1) Fall Code(s): W19.XXXA - UNSPECIFIED FALL, INITIAL ENCOUNTER Qualifiers: (2) UTI (lower urinary tract infection) Code(s): N39.0 - URINARY TRACT INFECTION, SITE NOT SPECIFIED (3) Infection with multi-drug resistant microorganisms Code(s): Z16.35 - RESISTANCE TO MULTIPLE ANTIMICROBIAL DRUGS (4) Morbid obesity with BMI of 45.0-49.9, adult Code(s): E66.01 - MORBID (SEVERE) OBESITY DUE TO EXCESS CALORIES; Z68.42 - BODY MASS INDEX (BMI) 45.0-49.9, ADULT
[2018-12-11] MEDS: VANCOMYCIN HCL 1,250 MG in DEXTROSE 5%-WATER - 250 ML IVPB SCH (12:36)
--- NOTE | 2018-12-11 12:49 | CONS ---
DATE OF CONSULTATION: DATE OF DICTATION: 12/11/2018 REQUESTED BY: The hospitalist service. HISTORY OF PRESENT ILLNESS: This is an 83-year-old woman with a history of morbid obesity. She lives at home alone. She fell when she was trying to get into bed. She was on the floor all night. She could not summon help until her son found her and brought her to the hospital. She was last hospitalized in August at which time she was treated for a UTI. She denies any fevers or chills. She does note that she has had some hematuria and dysuria over the course of the last week. She is otherwise feeling well. She has a rash that she states predated her admission on the right side of her face. PAST MEDICAL HISTORY: Notable for she has a history of atrial fibrillation, asthma, COPD, CHF, diabetes, hiatal hernia, recurrent UTI, hypertension, hypercholesterolemia, morbid obesity, hypothyroidism. SURGICAL HISTORY: Notable for hernia repair x2, appendectomy, she has had a cholecystectomy and apparently cardioversion twice. SOCIAL HISTORY: She lives alone and she is a former smoker. She quit in 2007. REVIEW OF SYSTEMS: She denies any pain. She notes she has had this rash off and on and her PMD is aware of it. She reports it is actually improved. She has no fevers or chills. She has no nausea, vomiting or diarrhea. A Bae has been placed since admission. PHYSICAL EXAMINATION:General: She is an obese woman in no acute distress. Vital Signs: She has had no fever since admission, pulse is 91, blood pressure 108/51, respiratory rate is 12, she weighs 133 kg. HEENT: She is normocephalic. Her eyes are anicteric. Neck: Supple. Lungs: Clear to auscultation. Heart: Regular rate and rhythm. Abdomen: Soft, nontender. She has a large pannus. She has a Bae in place. Extremities: She has venostasis of her right leg. I was not able to examine the leg as the dressing was just done by the surgical PA who reports that the wound is healing and that there were no open wounds or drainage or erythema noted. LABORATORIES: Notable admission white count was 11, repeat was 5.4, hemoglobin 10.4, platelets are normal. INR is 2.7. BUN is 16 and creatinine is 0.6. Urinalysis has 3+ leukocytes with 564 white cells and 9 red cells. Urine culture is growing group B strep. ASSESSMENT: In summary this is an 83-year-old woman with morbid obesity, status post fall, admitted after she was on the floor all night with complaints of dysuria and hematuria consistent with a symptomatic urinary tract infection. She was started on ertapenem based on prior cultures. Urine culture now growing Enterococcus. Would switch to vancomycin pending culture results. Hopefully can transition her to oral amoxicillin in the morning. Would maintain contact isolation per prior history of multidrug-resistant organisms, both methicillin-resistant Staphylococcus aureus and Escherichia coli extended spectrum beta-lactamase. Further recommendations to follow. Brady SILVERIO/[id number]
--- NOTE | 2018-12-11 16:12 | PN ---
Teaching Attending Note Name of Resident: Danii Arreola ATTENDING PHYSICIAN STATEMENT I saw and evaluated the patient. I reviewed the resident's note and discussed the case with the resident. I agree with the resident's findings and plan as documented with exceptions below. SUBJECTIVE: Patient seen and examined. denies any abdominal or urinary symptoms currently. No new pain. OBJECTIVE: Vital Signs Period Temp Pulse Resp BP Sys/Luke Pulse Ox Last 24 Hr 97.4 F-98.9 F 80-95 12-23 107-120/49-59 96-98 Intake & Output 12/08/18 12/09/18 12/10/18 12/11/18 23:59 23:59 23:59 23:59 Intake Total 300 Output Total 2700 1900 Balance -2700 -1600 Weight 299 lb 294 lb 12.8 oz General: sitting in bed in no acute distress Chest: limited by habitus, positive air entry, no rales or wheezing Abdomen:Soft, distended, unchanged panniculitis and cauliflower like lesions over lower abdomen with chronic skin changes and hyperpigmentation Extermities; wound dressing RLE, chronic venous stasis LLE with edema Home Medications Medication Instructions Recorded Allopurinol [Zyloprim -] 100 mg PO DAILY 12/10/18 Digoxin [Lanoxin -] 0.125 mg PO DAILY 12/10/18 Folic Acid 1 mg PO DAILY 12/10/18 Furosemide 40 mg PO BID 12/10/18 Gabapentin 100 mg PO TID 12/10/18 Glimepiride 1 mg PO DAILY 12/10/18 Levothyroxine [Synthroid -] 50 mcg PO DAILY 12/10/18 Losartan Potassium 25 mg PO DAILY 12/10/18 Potassium Chloride 20 meq PO DAILY 12/10/18 Warfarin Na [Coumadin] 2 mg PO Q48H 12/10/18 Warfarin Sodium 4 mg PO ASDIR 12/10/18 Active Medications Albuterol Sulfate (Ventolin 0.083% Nebulizer Soln -) 1 amp NEB DAILY COUNT INCLUDES THE [facility] Last Admin: 12/11/18 10:44 Dose: 1 amp Allopurinol (Zyloprim -) 100 mg PO DAILY COUNT INCLUDES THE [facility] Last Admin: 12/11/18 11:06 Dose: 100 mg Digoxin (Lanoxin -) 0.125 mg PO DAILY COUNT INCLUDES THE [facility] Last Admin: 12/11/18 09:09 Dose: 0.125 mg Folic Acid (Folic Acid -) 1 mg PO DAILY COUNT INCLUDES THE [facility] Last Admin: 12/11/18 09:09 Dose: 1 mg Furosemide (Lasix -) 40 mg PO BIDLASIX COUNT INCLUDES THE [facility] Last Admin: 12/11/18 13:31 Dose: 40 mg Gabapentin (Neurontin -) 100 mg PO TID COUNT INCLUDES THE [facility] Last Admin: 12/11/18 13:31 Dose: 100 mg Vancomycin HCl 1,250 mg/ (Dextrose) 250 mls @ 250 mls/2 hr IVPB Q24H COUNT INCLUDES THE [facility]; Protocol Last Admin: 12/11/18 12:36 Dose: 250 mls/2 hr Insulin Aspart (Novolog Vial Sliding Scale -) 1 vial SQ ACHS COUNT INCLUDES THE [facility]; Protocol Last Admin: 12/11/18 11:19 Dose: Not Given Levothyroxine Sodium (Synthroid -) 50 mcg PO DAILY@0700 COUNT INCLUDES THE [facility] Last Admin: 12/11/18 06:10 Dose: 50 mcg Losartan Potassium (Cozaar -) 25 mg PO DAILY COUNT INCLUDES THE [facility] Last Admin: 12/11/18 09:08 Dose: 25 mg Nystatin (Nystop Powder -) 1 applic TP DAILY COUNT INCLUDES THE [facility] Last Admin: 12/11/18 09:13 Dose: 1 applic Tiotropium [place] (Spiriva Respimat) 2 puff IH DAILY COUNT INCLUDES THE [facility] Last Admin: 12/11/18 11:06 Dose: 2 puff Warfarin Sodium (Coumadin -) 2 mg PO Q2D@1800 COUNT INCLUDES THE [facility] Warfarin Sodium (Coumadin -) 4 mg PO SuTuWeThFrSa@1800 COUNT INCLUDES THE [facility] Last Admin: 12/10/18 18:22 Dose: 4 mg Laboratory Results - last 24 hr 12/10/18 12/10/18 12/11/18 17:37 22:10 05:20 WBC RBC Hgb Hct MCV MCH MCHC RDW Plt Count MPV Absolute Neuts (auto) Neutrophils % Lymphocytes % Monocytes % Eosinophils % Basophils % Nucleated RBC % PT with INR INR Sodium Potassium Chloride Carbon Dioxide Anion Gap BUN Creatinine Creat Clearance w eGFR POC Glucometer 131 96 104 Random Glucose Calcium Creatine Kinase Creatine Kinase Index CK-MB (CK-2) 12/11/18 12/11/18 12/11/18 07:30 07:30 07:30 WBC 5.4 RBC 4.44 Hgb 10.7 Hct 35.4 D MCV 79.7 L MCH 24.2 L MCHC 30.4 L RDW 20.1 H Plt Count 234 MPV 8.2 Absolute Neuts (auto) 3.4 Neutrophils % 63.1 D Lymphocytes % 24.1 D Monocytes % 8.5 Eosinophils % 3.1 D Basophils % 1.2 Nucleated RBC % 0 PT with INR 33.10 H INR 2.78 H Sodium 141 Potassium 3.5 Chloride 106 Carbon Dioxide 30 Anion Gap 5 L BUN 16 Creatinine 0.6 Creat Clearance w eGFR 95.71 POC Glucometer Random Glucose 97 Calcium 9.0 Creatine Kinase 206 H Creatine Kinase Index 1.1 CK-MB (CK-2) 2.4 12/11/18 11:17 WBC RBC Hgb Hct MCV MCH MCHC RDW Plt Count MPV Absolute Neuts (auto) Neutrophils % Lymphocytes % Monocytes % Eosinophils % Basophils % Nucleated RBC % PT with INR INR Sodium Potassium Chloride Carbon Dioxide Anion Gap BUN Creatinine Creat Clearance w eGFR POC Glucometer 148 Random Glucose Calcium Creatine Kinase Creatine Kinase Index CK-MB (CK-2) Microbiology 12/10/18 15:20 Blood - Peripheral Venous Blood Culture - Preliminary NO GROWTH OBTAINED AFTER 24 HOURS, INCUBATION TO CONTINUE FOR 4 DAYS. 12/10/18 15:20 Blood - Peripheral Venous Blood Culture - Preliminary NO GROWTH OBTAINED AFTER 24 HOURS, INCUBATION TO CONTINUE FOR 4 DAYS. 12/10/18 10:00 Urine - Urine - Catheterized Urine Culture - Preliminary Group D Strep Or Entero Coccus ASSESSMENT AND PLAN: 83 yof with PMHx of morbid obesity, COPD on 2L home oxygen, KATERINA, NIDDM (Poorly controlled), Afib on AC, ?DVT, LE wounds (Followed at Wound center), multiple wound infection with resistant organism in the past, h/o ESBL UTI, multiple admissions with falls when declined rehab, admitted with fall and UTI -Mechanical fall -Lower complicated UTI with urinary retention -COPD on 2L home oxygen -Afib on coumadin -Bilateral LE chronic wounds -NIDDM (poorly controlled) -KATERINA -Morbid obesity Plan: Urine cx noted, ID input noted, Vancomycin day 2, d/c ertapenem. CT A/P neg for concerns. D/c wilkinson, voiding trial today. Discussed with RN. Wound care input noted. Nebs prn. No evidence of COPD exacerbation currently. Continue coumadin ISS/diabetic diet. Continue digoxin/diltiazem/lasix/ARB. DVTPPX on coumadin PT eval noted. Dispo plan for SNF pending clinical improvement, in 24-48 hours on PO abx. Plan discussed with patient, nursing, CM in detail, all questions answered.
[2018-12-11] MEDS: WARFARIN NA 2 MG TABLET (UD) PO SCH (17:54)
[2018-12-11] MEDS ORDERED: WARFARIN NA 2 MG TABLET (UD) PO SCH (18:00)
--- NOTE | 2018-12-11 19:24 | PN ---
Physical Exam: SUBJECTIVE: Patient seen and examined OBJECTIVE: Vital Signs Period Temp Pulse Resp BP Sys/Luke Pulse Ox Last 24 Hr 97.4 F-98.9 F 80-95 12-20 107-120/49-59 96-98 GENERAL: obese LUNGS:decreased BS HEART: Regular rate and rhythm, S1, S2 without murmur, rub or gallop. ABDOMEN: yeast like infectious process; panniculitis rebound, no hepatosplenomegaly, no masses. EXTREMITIES: 2+ pulses, warm, well-perfused, no edema. NEUROLOGICAL: Cranial nerves II through XII grossly intact. Normal speech, gait not observed. PSYCH: Normal mood, normal affect. SKIN: Warm, dry, normal turgor, no rashes or lesions noted Laboratory Results - last 24 hr 12/10/18 12/11/18 12/11/18 22:10 05:20 07:30 WBC 5.4 RBC 4.44 Hgb 10.7 Hct 35.4 D MCV 79.7 L MCH 24.2 L MCHC 30.4 L RDW 20.1 H Plt Count 234 MPV 8.2 Absolute Neuts (auto) 3.4 Neutrophils % 63.1 D Lymphocytes % 24.1 D Monocytes % 8.5 Eosinophils % 3.1 D Basophils % 1.2 Nucleated RBC % 0 PT with INR INR Sodium Potassium Chloride Carbon Dioxide Anion Gap BUN Creatinine Creat Clearance w eGFR POC Glucometer 96 104 Random Glucose Calcium Creatine Kinase Creatine Kinase Index CK-MB (CK-2) 12/11/18 12/11/18 12/11/18 07:30 07:30 11:17 WBC RBC Hgb Hct MCV MCH MCHC RDW Plt Count MPV Absolute Neuts (auto) Neutrophils % Lymphocytes % Monocytes % Eosinophils % Basophils % Nucleated RBC % PT with INR 33.10 H INR 2.78 H Sodium 141 Potassium 3.5 Chloride 106 Carbon Dioxide 30 Anion Gap 5 L BUN 16 Creatinine 0.6 Creat Clearance w eGFR 95.71 POC Glucometer 148 Random Glucose 97 Calcium 9.0 Creatine Kinase 206 H Creatine Kinase Index 1.1 CK-MB (CK-2) 2.4 12/11/18 16:54 WBC RBC Hgb Hct MCV MCH MCHC RDW Plt Count MPV Absolute Neuts (auto) Neutrophils % Lymphocytes % Monocytes % Eosinophils % Basophils % Nucleated RBC % PT with INR INR Sodium Potassium Chloride Carbon Dioxide Anion Gap BUN Creatinine Creat Clearance w eGFR POC Glucometer 121 Random Glucose Calcium Creatine Kinase Creatine Kinase Index CK-MB (CK-2) Active Medications Generic Name Dose Route Start Last Admin Trade Name Basil PRN Reason Stop Dose Admin Albuterol Sulfate 1 amp 12/11/18 10:00 12/11/18 10:44 Ventolin 0.083% Nebulizer Soln - NEB 1 amp DAILY YLUDMILA Administration Allopurinol 100 mg 12/11/18 10:00 12/11/18 11:06 Zyloprim - PO 100 mg DAILY LYUDMILA Administration Digoxin 0.125 mg 12/11/18 10:00 12/11/18 09:09 Lanoxin - PO 0.125 mg DAILY LYUDMILA Administration Folic Acid 1 mg 12/11/18 10:00 12/11/18 09:09 Folic Acid - PO 1 mg DAILY LYUDMILA Administration Furosemide 40 mg 12/10/18 16:45 12/11/18 13:31 Lasix - PO 40 mg BIDLASIX LYUDMILA Administration Gabapentin 100 mg 12/10/18 22:00 12/11/18 13:31 Neurontin - PO 100 mg TID LYUDMILA Administration Vancomycin HCl 1,250 mg/ 250 mls @ 250 mls/2 hr 12/11/18 11:45 12/11/18 12:36 Dextrose IVPB 250 mls/2 hr Q24H LYUDMILA Administration Protocol Insulin Aspart 1 vial 12/10/18 16:30 12/11/18 11:19 Novolog Vial Sliding Scale - SQ Not Given ACHS [facility] Protocol Levothyroxine Sodium 50 mcg 12/11/18 07:00 12/11/18 06:10 Synthroid - PO 50 mcg DAILY@0700 LYUDMILA Administration Losartan Potassium 25 mg 12/11/18 10:00 12/11/18 09:08 Cozaar - PO 25 mg DAILY LYUDMILA Administration Nystatin 1 applic 12/10/18 16:15 12/11/18 09:13 Nystop Powder - TP 1 applic DAILY LYUDMILA Administration Tiotropium [place] 2 puff 12/11/18 10:00 12/11/18 11:06 Spiriva Respimat IH 2 puff DAILY LYUDMILA Administration Warfarin Sodium 2 mg 12/11/18 18:00 12/11/18 17:54 Coumadin - PO 2 mg Q2D@1800 LYUDMILA Administration Warfarin Sodium 4 mg 12/10/18 18:00 12/11/18 17:54 Coumadin - PO 4 mg SuTuWeThFrSa@1800 [facility] Administration Microbiology 12/10/18 15:20 Blood - Peripheral Venous Blood Culture - Preliminary NO GROWTH OBTAINED AFTER 24 HOURS, INCUBATION TO CONTINUE FOR 4 DAYS. 12/10/18 15:20 Blood - Peripheral Venous Blood Culture - Preliminary NO GROWTH OBTAINED AFTER 24 HOURS, INCUBATION TO CONTINUE FOR 4 DAYS. 12/10/18 10:00 Urine - Urine - Catheterized Urine Culture - Preliminary Group D Strep Or Entero Coccus ASSESSMENT/PLAN: This is a 83 year old morbidly obese female with a history of COPD, CHF, AFIB< chronic venous stasis who presents after fall at home, unable to get up from floor for over 1 day. #mechanical fall -PT eval ; no complaints of pain #elevated: ck -monitor for rhabdo -rech ck #UTI; hx esbl -ertapenam -id following; d/c ertapenam; cont vanco; #atrial fibrillation -on warfarin -rate controlled with digoxin #hypothyroid: -levothyroxine #DM: -bgm -insulin ss #b/l leg woundfrom chronic venous statis; -wound care -on lasix #hx of COPD ; not in acute exacerbation; on home o2? -spiriva; albuterolat home DIet; low fat VTE: on warfarin Disposition: PT eval ; possible sniff Visit type - Emergency Visit Emergency Visit: Yes ED Registration Date: 12/10/18 Care time: The patient presented to the Emergency Department on the above date and was hospitalized for further evaluation of their emergent condition. - New Patient This patient is new to me today: No - Critical Care Critical Care patient: No
[2018-12-12] MEDS: GABAPENTIN 100 MG CAPSULE (FP) PO SCH ×3 (05:44→21:03)
[2018-12-12] MEDS: FUROSEMIDE 40 MG TABLET (FP) PO SCH ×2 (05:44→14:25)
[2018-12-12] MEDS: LEVOTHYROXINE NA 50 MCG TABLET (FP) PO SCH (05:59)
[2018-12-12] MEDS: INSULIN SLIDING SCALE (NOVOLOG) 1 VIAL SQ SCH ×4 (05:59→21:03)
[2018-12-12 07:09] LABS: BASO % 1.3 % (0-2.0); EOS % 7.5 % (0-4.5); HEMATOCRIT 34.9 % (32.4-45.2); HEMOGLOBIN 10.9 GM/dL (10.7-15.3); LYMPH % 21.2 % (8-40); MCH 25.2 pg (25.7-33.7); MCHC 31.3 g/dl (32.0-36.0); MEAN CELL VOLUME 80.3 fl (80-96); MEAN PLT VOLUME 8.3 fl (7.5-11.1); MONO % 10.1 % (3.8-10.2); NEUT % 59.9 % (42.8-82.8); PLATELET COUNT 226 K/MM3 (134-434); RBC 4.35 M/mm3 (3.60-5.2); RDW 20.3 % (11.6-15.6); WHITE BLOOD COUNT 6.1 K/mm3 (4.0-10.0)
[2018-12-12 07:26] LABS: ANION GAP 5 MMOL/L (8-16); BLOOD UREA NITROGEN 15 mg/dL (7-18); CALCIUM 8.4 mg/dL (8.5-10.1); CHLORIDE 103 mmol/L (98-107); CO2 33 mmol/L (21-32); CREATININE 0.6 mg/dL (0.55-1.3); GLUCOSE,RANDOM 113 mg/dL (74-106); POTASSIUM 3.2 mmol/L (3.5-5.1); SODIUM 141 mmol/L (136-145)
[2018-12-12] MEDS ORDERED: POTASSIUM CHLORIDE TABS 20 MEQ TABLET.ER (FP) PO ONE (07:38)
[2018-12-12] MEDS: ALLOPURINOL 100 MG TABLET (FP) PO SCH (09:29)
[2018-12-12] MEDS: LOSARTAN POTASSIUM 25 MG TABLET PO SCH (09:29)
[2018-12-12] MEDS: FOLIC ACID 1 MG TABLET (FP) PO SCH (09:29)
[2018-12-12] MEDS: DIGOXIN 0.125 MG TABLET (FP) PO SCH (09:29)
[2018-12-12] MEDS: NYSTATIN POWDER 100,000 UNITS/GM - 15 GM TOPICAL POWDER TP SCH (09:29)
[2018-12-12] MEDS: TIOTROPIUM BROMIDE 2.5 MCG (SPIRIVA) RESPIMAT INHALER IH SCH (09:30)
[2018-12-12] MEDS: ALBUTEROL SO4 0.083% IH SOL 2.5 MG/3 ML VIAL.NEB. NEB SCH (10:33)
[2018-12-12] MEDS: VANCOMYCIN HCL 1,250 MG in DEXTROSE 5%-WATER - 250 ML IVPB SCH (11:44)
--- NOTE | 2018-12-12 11:44 | PN ---
Physical Exam: SUBJECTIVE: Patient seen and examined, no abdominal or urinary complaints, no pain or dyspnea currently. OBJECTIVE: Vital Signs Period Temp Pulse Resp BP Sys/Luke Pulse Ox Last 24 Hr 97.8 F-98.6 F 80-97 20-20 116-138/50-79 95-97 Intake & Output 12/09/18 12/10/18 12/11/18 12/12/18 23:59 23:59 23:59 23:59 Intake Total 1200 220 Output Total 2700 2100 620 Balance -2700 -900 -400 Weight 299 lb 294 lb 12.8 oz 297 lb GENERAL: The patient is awake, alert, and fully oriented, in no acute distress. HEAD: Normal with no signs of trauma. EYES: PERRL, extraocular movements intact, sclera anicteric, conjunctiva clear. No ptosis. ENT: Ears normal, nares patent, oropharynx clear without exudates, moist mucous membranes. NECK: soft, supple LUNGS: limited by body habitus, no rales or wheezing HEART:S1S2 irregular ABDOMEN:soft, morbidly obese protruberant abdomen, unchanged panniculitis and chronic skin changes EXTREMITIES: unchanged LE wound with dressing and chronic skin changes PSYCH: Normal mood, normal affect. SKIN: Warm, dry, normal turgor, no rashes or lesions noted Laboratory Results - last 24 hr 12/11/18 12/11/18 12/12/18 16:54 21:33 05:28 WBC RBC Hgb Hct MCV MCH MCHC RDW Plt Count MPV Absolute Neuts (auto) Neutrophils % Lymphocytes % Monocytes % Eosinophils % Basophils % Nucleated RBC % Sodium Potassium Chloride Carbon Dioxide Anion Gap BUN Creatinine Creat Clearance w eGFR POC Glucometer 121 108 107 Random Glucose Calcium 12/12/18 12/12/18 12/12/18 06:00 06:00 10:56 WBC 6.1 RBC 4.35 Hgb 10.9 Hct 34.9 MCV 80.3 MCH 25.2 L MCHC 31.3 L RDW 20.3 H Plt Count 226 MPV 8.3 Absolute Neuts (auto) 3.6 Neutrophils % 59.9 Lymphocytes % 21.2 Monocytes % 10.1 Eosinophils % 7.5 H D Basophils % 1.3 Nucleated RBC % 0 Sodium 141 Potassium 3.2 L Chloride 103 Carbon Dioxide 33 H Anion Gap 5 L BUN 15 Creatinine 0.6 Creat Clearance w eGFR 95.71 POC Glucometer 126 Random Glucose 113 H Calcium 8.4 L Active Medications Generic Name Dose Route Start Last Admin Trade Name Basil PRN Reason Stop Dose Admin Albuterol Sulfate 1 amp 12/11/18 10:00 12/12/18 10:33 Ventolin 0.083% Nebulizer Soln - NEB 1 amp DAILY LYUDMILA Administration Allopurinol 100 mg 12/11/18 10:00 12/12/18 09:29 Zyloprim - PO 100 mg DAILY LYUDMILA Administration Digoxin 0.125 mg 12/11/18 10:00 12/12/18 09:29 Lanoxin - PO 0.125 mg DAILY LYUDMILA Administration Folic Acid 1 mg 12/11/18 10:00 12/12/18 09:29 Folic Acid - PO 1 mg DAILY LYUDMILA Administration Furosemide 40 mg 12/10/18 16:45 12/12/18 05:44 Lasix - PO 40 mg BIDLASIX LYUDMILA Administration Gabapentin 100 mg 12/10/18 22:00 12/12/18 05:44 Neurontin - PO 100 mg TID LYUDMILA Administration Vancomycin HCl 1,250 mg/ 250 mls @ 250 mls/2 hr 12/11/18 11:45 12/11/18 12:36 Dextrose IVPB 250 mls/2 hr Q24H LYUDMILA Administration Protocol Insulin Aspart 1 vial 12/10/18 16:30 12/12/18 11:07 Novolog Vial Sliding Scale - SQ Not Given ACHS LYUDMILA Protocol Levothyroxine Sodium 50 mcg 12/11/18 07:00 12/12/18 05:59 Synthroid - PO 50 mcg DAILY@0700 LYUDMILA Administration Losartan Potassium 25 mg 12/11/18 10:00 12/12/18 09:29 Cozaar - PO 25 mg DAILY LYUDMILA Administration Nystatin 1 applic 12/10/18 16:15 12/12/18 09:29 Nystop Powder - TP 1 applic DAILY LYUDMILA Administration Tiotropium [place] 2 puff 12/11/18 10:00 12/12/18 09:30 Spiriva Respimat IH 2 puff DAILY LYUDMILA Administration Warfarin Sodium 2 mg 12/11/18 18:00 12/11/18 17:54 Coumadin - PO 2 mg Q2D@1800 LYUDMILA Administration Warfarin Sodium 4 mg 12/10/18 18:00 12/11/18 17:54 Coumadin - PO 4 mg SuTuWeThFrSa@1800 [facility] Administration Microbiology 12/10/18 15:20 Blood - Peripheral Venous Blood Culture - Preliminary NO GROWTH OBTAINED AFTER 24 HOURS, INCUBATION TO CONTINUE FOR 4 DAYS. 12/10/18 15:20 Blood - Peripheral Venous Blood Culture - Preliminary NO GROWTH OBTAINED AFTER 24 HOURS, INCUBATION TO CONTINUE FOR 4 DAYS. 12/10/18 10:00 Urine - Urine - Catheterized Urine Culture - Preliminary Group D Strep Or Entero Coccus ASSESSMENT/PLAN: 83 yof with PMHx of morbid obesity, COPD on 2L home oxygen, KATERINA, NIDDM (Poorly controlled), Afib on AC, ?DVT, LE wounds (Followed at [facility]), multiple wound infection with resistant organism in the past, h/o ESBL UTI, multiple admissions with falls when declined rehab, admitted with fall and UTI -Mechanical fall -Lower complicated UTI with urinary retention -Hypokalemia -COPD on 2L home oxygen -Afib on coumadin -Bilateral LE chronic wounds -NIDDM (poorly controlled) -KATERINA -Morbid obesity Plan: Urine cx noted, ID input noted, Vancomycin day 3, follow up final cx results. CT A/P neg for concerns. Bae d/ale, no concerns for retention. Wound care input noted. Nebs prn. No evidence of COPD exacerbation currently. Continue coumadin,daily INR. replete K. ISS/diabetic diet. Continue digoxin/diltiazem/lasix/ARB. DVTPPX on coumadin PT eval noted. Dispo plan for d/c to [facility] tomorrow pending urine cx and disposition arrangements. Plan discussed with patient, nursing, CM in detail, all questions answered. Visit type - Emergency Visit Emergency Visit: Yes ED Registration Date: 12/10/18 Care time: The patient presented to the Emergency Department on the above date and was hospitalized for further evaluation of their emergent condition. - New Patient This patient is new to me today: No - Critical Care Critical Care patient: No - Discharge Referral Referred to [facility] Med P.C.: No
[2018-12-12 13:03] LABS: INR 3.3 (0.83-1.09); PROTHROMBIN TIME (PATIENT) 39.4 SEC (9.7-13.0)
[2018-12-12 15:30] VITALS: BMI 49.4
[2018-12-12] MEDS ORDERED: INSULIN (NOVOLOG) ASPART 100 UNITS/ML 10ML VIAL ONE (20:49)
[2018-12-12] MEDS ORDERED: PT OWN MED DRAWER 7, Y5N ONE (20:50)
[2018-12-12] MEDS: AMOXICILLIN 500 MG CAPSULE (FP) PO SCH (21:03)
[2018-12-12] MEDS ORDERED: ACETAMINOPHEN 325 MG TABLET (FP) PO ONE (23:15)
[2018-12-13] MEDS ORDERED: PT OWN MED DRAWER 7, Y5N ONE ×2 (05:44→09:28)
[2018-12-13] MEDS: FUROSEMIDE 40 MG TABLET (FP) PO SCH ×2 (05:54→13:18)
[2018-12-13] MEDS: GABAPENTIN 100 MG CAPSULE (FP) PO SCH ×2 (05:54→13:18)
[2018-12-13] MEDS: AMOXICILLIN 500 MG CAPSULE (FP) PO SCH (05:55)
[2018-12-13] MEDS: INSULIN SLIDING SCALE (NOVOLOG) 1 VIAL SQ SCH ×2 (06:00→13:17)
[2018-12-13] MEDS: LEVOTHYROXINE NA 50 MCG TABLET (FP) PO SCH (06:00)
[2018-12-13] MEDS ORDERED: INSULIN (NOVOLOG) ASPART 100 UNITS/ML 10ML VIAL ONE (06:23)
[2018-12-13 08:51] LABS: INR 3.18 (0.83-1.09)
[2018-12-13] MEDS: DIGOXIN 0.125 MG TABLET (FP) PO SCH (09:45)
[2018-12-13] MEDS: LOSARTAN POTASSIUM 25 MG TABLET PO SCH (09:46)
[2018-12-13] MEDS: ALLOPURINOL 100 MG TABLET (FP) PO SCH (09:46)
[2018-12-13] MEDS: FOLIC ACID 1 MG TABLET (FP) PO SCH (09:46)
[2018-12-13 09:47] VITALS: PULSE 98
[2018-12-13] MEDS: ALBUTEROL SO4 0.083% IH SOL 2.5 MG/3 ML VIAL.NEB. NEB SCH (09:51)
[2018-12-13 10:01] VITALS: BP 130/57; TEMP 98.2
[2018-12-13] MEDS ORDERED: ACETAMINOPHEN 325 MG TABLET (FP) PO PRN (10:14)
[2018-12-13] MEDS: NYSTATIN POWDER 100,000 UNITS/GM - 15 GM TOPICAL POWDER TP SCH (10:19)
--- NOTE | 2018-12-13 11:10 | DS ---
Physical Exam: SUBJECTIVE: Patient seen and examined, no abdominal or urinary symptoms. No new complaints. OBJECTIVE: Vital Signs Period Temp Pulse Resp BP Sys/Luke Pulse Ox Last 24 Hr 97.8 F-98.7 F 85-98 19-20 118-130/57-72 95-97 PHYSICAL EXAM GENERAL: The patient is awake, alert, and fully oriented, in no acute distress. HEAD: Normal with no signs of trauma. EYES: PERRL, extraocular movements intact, sclera anicteric, conjunctiva clear. ENT: Ears normal, nares patent, oropharynx clear without exudates, moist mucous membranes. NECK: Trachea midline, full range of motion, supple. LUNGS: Breath sounds equal, clear to auscultation bilaterally, no wheezes, no crackles, no accessory muscle use. HEART: Regular rate and rhythm, S1, S2 without murmur, rub or gallop. ABDOMEN: Soft, nontender, nondistended, normoactive bowel sounds, no guarding, no rebound, no hepatosplenomegaly, no masses. EXTREMITIES: 2+ pulses, warm, well-perfused, no edema. NEUROLOGICAL: Cranial nerves II through XII grossly intact. Normal speech, gait not observed. PSYCH: Normal mood, normal affect. SKIN: Warm, dry, normal turgor, no rashes or lesions noted. LABS Laboratory Results - last 24 hr 12/12/18 12/12/18 12/12/18 12:25 16:33 21:01 PT with INR 39.40 H INR 3.30 H Potassium POC Glucometer 120 117 12/13/18 12/13/18 12/13/18 05:53 07:00 07:00 PT with INR 38.00 H INR 3.18 H Potassium 3.4 L POC Glucometer 105 Laboratory Tests 12/10/18 12/10/18 12/10/18 09:50 09:50 10:00 WBC 11.0 H RBC 5.24 H Hgb 12.6 Hct 41.7 D MCV 79.7 L MCH 24.1 L D MCHC 30.2 L RDW 20.1 H Plt Count 292 MPV 7.9 Absolute Neuts (auto) 8.7 H Neutrophils % 79.2 D Lymphocytes % 11.4 D Monocytes % 8.0 Eosinophils % 0.6 D Basophils % 0.8 Nucleated RBC % 0 PT with INR INR Sodium 143 Potassium 3.5 Chloride 105 Carbon Dioxide 29 Anion Gap 9 BUN 16 Creatinine 0.7 Creat Clearance w eGFR 80.11 POC Glucometer Random Glucose 121 H Calcium 9.1 Magnesium 1.8 Total Bilirubin 1.1 H AST 34 ALT 13 Alkaline Phosphatase 128 H Creatine Kinase 203 H Creatine Kinase Index 2.8 CK-MB (CK-2) 5.8 H Troponin I 0.02 Total Protein 7.1 Albumin 3.4 Urine Color Yellow Urine Appearance Cloudy Urine pH 6.5 Ur Specific [place] 1.009 L Urine Protein Negative Urine Glucose (UA) Negative Urine Ketones Negative Urine Blood 1+ H Urine Nitrite Negative Urine Bilirubin Negative Urine Urobilinogen 0.2 Ur Leukocyte Esterase 3+ H Urine WBC (Auto) 564 Urine RBC (Auto) 9 Urine Casts (Auto) 8 U Epithel Cells (Auto) 0.9 Urine Bacteria (Auto) 1772.7 12/10/18 12/10/18 12/10/18 15:20 17:37 22:10 WBC RBC Hgb Hct MCV MCH MCHC RDW Plt Count MPV Absolute Neuts (auto) Neutrophils % Lymphocytes % Monocytes % Eosinophils % Basophils % Nucleated RBC % PT with INR 28.10 H INR 2.36 H Sodium Potassium Chloride Carbon Dioxide Anion Gap BUN Creatinine Creat Clearance w eGFR POC Glucometer 131 96 Random Glucose Calcium Magnesium Total Bilirubin AST ALT Alkaline Phosphatase Creatine Kinase Creatine Kinase Index CK-MB (CK-2) Troponin I Total Protein Albumin Urine Color Urine Appearance Urine pH Ur Specific [place] Urine Protein Urine Glucose (UA) Urine Ketones Urine Blood Urine Nitrite Urine Bilirubin Urine Urobilinogen Ur Leukocyte Esterase Urine WBC (Auto) Urine RBC (Auto) Urine Casts (Auto) U Epithel Cells (Auto) Urine Bacteria (Auto) 12/11/18 12/11/18 12/11/18 05:20 07:30 07:30 WBC 5.4 RBC 4.44 Hgb 10.7 Hct 35.4 D MCV 79.7 L MCH 24.2 L MCHC 30.4 L RDW 20.1 H Plt Count 234 MPV 8.2 Absolute Neuts (auto) 3.4 Neutrophils % 63.1 D Lymphocytes % 24.1 D Monocytes % 8.5 Eosinophils % 3.1 D Basophils % 1.2 Nucleated RBC % 0 PT with INR 33.10 H INR 2.78 H Sodium Potassium Chloride Carbon Dioxide Anion Gap BUN Creatinine Creat Clearance w eGFR POC Glucometer 104 Random Glucose Calcium Magnesium Total Bilirubin AST ALT Alkaline Phosphatase Creatine Kinase Creatine Kinase Index CK-MB (CK-2) Troponin I Total Protein Albumin Urine Color Urine Appearance Urine pH Ur Specific [place] Urine Protein Urine Glucose (UA) Urine Ketones Urine Blood Urine Nitrite Urine Bilirubin Urine Urobilinogen Ur Leukocyte Esterase Urine WBC (Auto) Urine RBC (Auto) Urine Casts (Auto) U Epithel Cells (Auto) Urine Bacteria (Auto) 12/11/18 12/11/18 12/11/18 07:30 11:17 16:54 WBC RBC Hgb Hct MCV MCH MCHC RDW Plt Count MPV Absolute Neuts (auto) Neutrophils % Lymphocytes % Monocytes % Eosinophils % Basophils % Nucleated RBC % PT with INR INR Sodium 141 Potassium 3.5 Chloride 106 Carbon Dioxide 30 Anion Gap 5 L BUN 16 Creatinine 0.6 Creat Clearance w eGFR 95.71 POC Glucometer 148 121 Random Glucose 97 Calcium 9.0 Magnesium Total Bilirubin AST ALT Alkaline Phosphatase Creatine Kinase 206 H Creatine Kinase Index 1.1 CK-MB (CK-2) 2.4 Troponin I Total Protein Albumin Urine Color Urine Appearance Urine pH Ur Specific [place] Urine Protein Urine Glucose (UA) Urine Ketones Urine Blood Urine Nitrite Urine Bilirubin Urine Urobilinogen Ur Leukocyte Esterase Urine WBC (Auto) Urine RBC (Auto) Urine Casts (Auto) U Epithel Cells (Auto) Urine Bacteria (Auto) 12/11/18 12/12/18 12/12/18 21:33 05:28 06:00 WBC 6.1 RBC 4.35 Hgb 10.9 Hct 34.9 MCV 80.3 MCH 25.2 L MCHC 31.3 L RDW 20.3 H Plt Count 226 MPV 8.3 Absolute Neuts (auto) 3.6 Neutrophils % 59.9 Lymphocytes % 21.2 Monocytes % 10.1 Eosinophils % 7.5 H D Basophils % 1.3 Nucleated RBC % 0 PT with INR INR Sodium Potassium Chloride Carbon Dioxide Anion Gap BUN Creatinine Creat Clearance w eGFR POC Glucometer 108 107 Random Glucose Calcium Magnesium Total Bilirubin AST ALT Alkaline Phosphatase Creatine Kinase Creatine Kinase Index CK-MB (CK-2) Troponin I Total Protein Albumin Urine Color Urine Appearance Urine pH Ur Specific [place] Urine Protein Urine Glucose (UA) Urine Ketones Urine Blood Urine Nitrite Urine Bilirubin Urine Urobilinogen Ur Leukocyte Esterase Urine WBC (Auto) Urine RBC (Auto) Urine Casts (Auto) U Epithel Cells (Auto) Urine Bacteria (Auto) 12/12/18 12/12/18 12/12/18 06:00 10:56 12:25 WBC RBC Hgb Hct MCV MCH MCHC RDW Plt Count MPV Absolute Neuts (auto) Neutrophils % Lymphocytes % Monocytes % Eosinophils % Basophils % Nucleated RBC % PT with INR 39.40 H INR 3.30 H Sodium 141 Potassium 3.2 L Chloride 103 Carbon Dioxide 33 H Anion Gap 5 L BUN 15 Creatinine 0.6 Creat Clearance w eGFR 95.71 POC Glucometer 126 Random Glucose 113 H Calcium 8.4 L Magnesium Total Bilirubin AST ALT Alkaline Phosphatase Creatine Kinase Creatine Kinase Index CK-MB (CK-2) Troponin I Total Protein Albumin Urine Color Urine Appearance Urine pH Ur Specific [place] Urine Protein Urine Glucose (UA) Urine Ketones Urine Blood Urine Nitrite Urine Bilirubin Urine Urobilinogen Ur Leukocyte Esterase Urine WBC (Auto) Urine RBC (Auto) Urine Casts (Auto) U Epithel Cells (Auto) Urine Bacteria (Auto) 12/12/18 12/12/18 12/13/18 16:33 21:01 05:53 WBC RBC Hgb Hct MCV MCH MCHC RDW Plt Count MPV Absolute Neuts (auto) Neutrophils % Lymphocytes % Monocytes % Eosinophils % Basophils % Nucleated RBC % PT with INR INR Sodium Potassium Chloride Carbon Dioxide Anion Gap BUN Creatinine Creat Clearance w eGFR POC Glucometer 120 117 105 Random Glucose Calcium Magnesium Total Bilirubin AST ALT Alkaline Phosphatase Creatine Kinase Creatine Kinase Index CK-MB (CK-2) Troponin I Total Protein Albumin Urine Color Urine Appearance Urine pH Ur Specific [place] Urine Protein Urine Glucose (UA) Urine Ketones Urine Blood Urine Nitrite Urine Bilirubin Urine Urobilinogen Ur Leukocyte Esterase Urine WBC (Auto) Urine RBC (Auto) Urine Casts (Auto) U Epithel Cells (Auto) Urine Bacteria (Auto) 12/13/18 12/13/18 07:00 07:00 WBC RBC Hgb Hct MCV MCH MCHC RDW Plt Count MPV Absolute Neuts (auto) Neutrophils % Lymphocytes % Monocytes % Eosinophils % Basophils % Nucleated RBC % PT with INR 38.00 H INR 3.18 H Sodium Potassium 3.4 L Chloride Carbon Dioxide Anion Gap BUN Creatinine Creat Clearance w eGFR POC Glucometer Random Glucose Calcium Magnesium Total Bilirubin AST ALT Alkaline Phosphatase Creatine Kinase Creatine Kinase Index CK-MB (CK-2) Troponin I Total Protein Albumin Urine Color Urine Appearance Urine pH Ur Specific [place] Urine Protein Urine Glucose (UA) Urine Ketones Urine Blood Urine Nitrite Urine Bilirubin Urine Urobilinogen Ur Leukocyte Esterase Urine WBC (Auto) Urine RBC (Auto) Urine Casts (Auto) U Epithel Cells (Auto) Urine Bacteria (Auto) Microbiology 12/10/18 15:20 Blood - Peripheral Venous Blood Culture - Preliminary NO GROWTH OBTAINED AFTER 48 HOURS, INCUBATION TO CONTINUE FOR 3 DAYS. 12/10/18 15:20 Blood - Peripheral Venous Blood Culture - Preliminary NO GROWTH OBTAINED AFTER 48 HOURS, INCUBATION TO CONTINUE FOR 3 DAYS. 12/10/18 10:00 Urine - Urine - Catheterized Urine Culture - Final Enterococcus Faecium HOSPITAL COURSE: Date of Admission:12/10/18 Date of Discharge: 12/13/18 Minutes to complete discharge: 40 Discharge Summary Reason For Visit: DIABETES MELLITUS,INFECTION WITH MICROGANISM Current Active Problems Chronic venous stasis (Acute) Fall (Acute) Infection with multi-drug resistant microorganisms (Acute) Morbid obesity with BMI of 45.0-49.9, adult (Acute) UTI (lower urinary tract infection) (Acute) Weakness (Acute) Hospital Course: 83 yof with PMHx of morbid obesity, COPD on 2L home oxygen, KATER[place], NIDDM (Poorly controlled), Afib on AC, ?DVT, LE wounds (Followed at [facility]), multiple wound infection with resistant organism in the past, h/o ESBL UTI, multiple admissions with falls when declined rehab, comes back with fall at home .Her trauma work up was negative. She was evaluated by physical therapy and recommended rehab that she agreed to. She also reported suprapubic pain and dysuria, noted with UTI, was initially placed on ertapenem and infectious disease was consulted. Her urine cultures grew enterococcus, she was transitioned to vancomycin pending final results and with be discharged on 5 days of amoxicillin. Her INR carol to >3 and her coumadin is being held on discharge with INR check tomorrow and resumption at 4mg daily once INR <3. She will be discharged to rehab in stable condition. Condition: Stable - Instructions Diet, Activity, Other Instructions: You were admitted with fall and urinary tract infection. you are recommended rehab and have been treated with antibiotics. MEDICATIONS: Changes as follows: New medications: Antibiotic amoxicillin 500 mg 3 times daily for 5 days HOLD COUMADIN TODAY, INR CHECK TOMORROW AND RESUME AT 4 MG DAILY ONCE INR < 3 Continue other home medications as before. INSTRUCTIONS: Fall precautions. 24 hour assist and supervision. Nystatin powder to groin areas FOLLOW UP: With primary care physician in 1 week after discharge from rehab INR check tomorrow 12/14/2018 and start coumadin 4 mg daily once INR < 3 If you notice any new fevers, chills, abdominal or urinary symptoms or any new concerns, please call 911 or come to the ED. Referrals: Xavi Storey MD [Primary Care Provider] - Disposition: [facility] F[facility]ILITY - Home Medications Comprehensive Discharge Medication List: Ambulatory Orders Allopurinol [Zyloprim -] 100 mg PO DAILY 12/10/18 Digoxin [Lanoxin -] 0.125 mg PO DAILY 12/10/18 Folic Acid 1 mg PO DAILY 12/10/18 Furosemide 40 mg PO BID 12/10/18 Gabapentin 100 mg PO TID 12/10/18 Glimepiride 1 mg PO DAILY 12/10/18 Levothyroxine [Synthroid -] 50 mcg PO DAILY 12/10/18 Losartan Potassium 25 mg PO DAILY 12/10/18 Potassium Chloride 20 meq PO DAILY 12/10/18 Warfarin Sodium 4 mg PO ASDIR 12/10/18 Albuterol 0.083% Nebulizer Bonnie [Ventolin 0.083% Nebulizer Soln -] 1 amp NEB QID 30 Days #1 amp 12/13/18 Amoxicillin - [Amoxicillin 500mg Capsule -] 500 mg PO TID 5 Days #15 capsule Insulin Sliding Scale [Novolog Vial Sliding Scale -] 1 vial SQ ACHS #1 units Nystatin Powder [Nystop Powder -] 1 applic TP DAILY applic 12/13/18 Tiotropium [place] [Spiriva Respimat] 2 puff IH DAILY #30 inhaler 12/13/18 This patient is new to me today: No Emergency Visit: Yes ED Registration Date: 12/10/18 Care time: The patient presented to the Emergency Department on the above date and was hospitalized for further evaluation of their emergent condition. Critical Care patient: No - Discharge Referral Referred to [facility] Med P.C.: No
[2018-12-13] MEDS: TIOTROPIUM BROMIDE 2.5 MCG (SPIRIVA) RESPIMAT INHALER IH SCH (13:19)
== END 2018-12-13 15:52 | DRG 690 ==
LOC: JER 08:52 → J6S 12:11
PROVIDERS: ADMIT Hospitalist; ATTEND Hospitalist
DX: N39.0 Urinary tract infection, site not specified (principal); Z68.42 Body mass index [BMI] 45.0-49.9, adult; E66.01 Morbid (severe) obesity due to excess calories; E87.6 Hypokalemia; I48.91 Unspecified atrial fibrillation; J44.9 Chronic obstructive pulmonary disease, unspecified; E11.9 Type 2 diabetes mellitus without complications; R33.9 Retention of urine, unspecified; I87.8 Other specified disorders of veins; I50.9 Heart failure, unspecified; F03.90 Unspecified dementia, unspecified severity, without behavioral disturbance, psychotic disturbance, mood disturbance, and anxiety; E03.9 Hypothyroidism, unspecified; R53.1 Weakness
CPT/HCPCS: 11042; 29581-RT; 36415; 71045-TC-FY; 74176-TC; 80048; 80053; 81003; 82550; 82553; 82962; 83735; 84132; 84484; 85025; 85610; 87040; 87086; 87186; 93005; 93010; 94640; 97116-GP; 97161-GP; 99285-25; A4649; A6197; G0463-25; J1644

== ENCOUNTER 2019-04-06 12:51 | Inpatient (IN) | payer OTHER ==
--- NOTE | 2019-04-06 13:33 | PDOC ---
History of Present Illness - General Chief Complaint: Wound Stated Complaint: WOUND CARE Time Seen by Provider: 04/06/19 13:32 History Source: Patient Exam Limitations: No Limitations - History of Present Illness Initial Comments: 04/06/19 14:21 May Hanley is a 84yF with PMHx of Afib (on Coumadin), HTN, DM, HLD, COPD, abdominal mass presenting with leg wound. She noticed a bruise 3wks ago that has opened into a gaping wound and grown bigger. Wound located on lateral aspect of middle section of left leg. No pain around wound site, mild numbness lower extremity bilaterally. Still able to bear weight on legs. Endorses chronic diarrhea and constipation. Denies fever, chills, weakness, nausea/ vomiting, SOB, chest/AB pain, urinary changes. Was seen by wound care this morning to clip toenails, sent to ED to be admitted for wound care Past History - Past Medical History Allergies/Adverse Reactions: Allergies Allergy/AdvReac Type Severity Reaction Status Date / Time No Known Allergies Allergy Verified 12/10/18 09:05 Home Medications: Ambulatory Orders Allopurinol [Zyloprim -] 100 mg PO DAILY 12/10/18 Digoxin [Lanoxin -] 0.125 mg PO DAILY 12/10/18 Folic Acid 1 mg PO DAILY 12/10/18 Furosemide 40 mg PO BID 12/10/18 Gabapentin 100 mg PO TID 12/10/18 Levothyroxine [Synthroid -] 50 mcg PO DAILY 12/10/18 Losartan Potassium 25 mg PO DAILY 12/10/18 Potassium Chloride 20 meq PO DAILY 12/10/18 Warfarin Sodium 4 mg PO ASDIR 12/10/18 Albuterol 0.083% Nebulizer Bonnie [Ventolin 0.083% Nebulizer Soln -] 1 amp NEB QID 30 Days #1 amp 12/13/18 Insulin Sliding Scale [Novolog Vial Sliding Scale -] 1 vial SQ ACHS #1 units Nystatin Powder [Nystop Powder -] 1 applic TP DAILY applic 12/13/18 Tiotropium [place] [Spiriva Respimat] 2 puff IH DAILY #30 inhaler 12/13/18 Anemia: No Asthma: Yes Cancer: No Cardiac Disorders: Yes (ATRIAL FIBRILLATION) CVA: No COPD: Yes CHF: Yes DVT: No Dementia: Yes Diabetes: Yes GI Disorders: Yes (HIATAL HERNIA, OBSTRUCTION) Disorders: Yes (uti) HTN: Yes Hypercholesterolemia: Yes Liver Disease: No Seizures: No Thyroid Disease: Yes (HYPO) - Surgical History Abdominal Surgery: Yes (HERNIA REPAIR X 3) Appendectomy: Yes (RUPTURED) Cardiac Surgery: Yes (cardioversion x 2) Cholecystectomy: Yes Lung Surgery: No Neurologic Surgery: No Orthopedic Surgery: No - Immunization History Immunization Up to Date: Yes - Suicide/Smoking/Psychosocial Hx Smoking Status: No Smoking History: Former smoker Have you smoked in the past 12 months: No Number of Cigarettes Smoked Daily: 0 If you are a former smoker, when did you quit?: 2007 Cigars Per Day: 0 Information on smoking cessation initiated: No Hx Alcohol Use: No Drug/Substance Use Hx: No Substance Use Type: None Hx Substance Use Treatment: No Review of Systems - Review of Systems Constitutional: No: Chills, Fever HEENTM: No: Eye Pain, Ear Pain, Nose Pain, Throat Pain Respiratory: No: Cough, Shortness of Breath, Stridor, Wheezing Cardiac (ROS): Yes: Irregular Heart Rate. No: Chest Pain, Palpitations, Syncope ABD/GI: Yes: Abdominal Distended (30lb suprapubic mass), Constipated, Diarrhea. No: Nausea, Vomiting : No: Dysuria, Discharge, Hematuria, Incontinence, Pain Musculoskeletal: No: Back Pain, Joint Swelling, Muscle Pain, Muscle Weakness Integumentary: Yes: Other (skin breakdown R lower leg, gaping wound L lower leg) Neurological: No: Headache, Seizure, Tingling, Tremors Psychiatric: No: Anxiety, Depression Endocrine: No: Excessive Sweating, Flushing, Intolerance to Cold, Intolerance to Heat Hematologic/Lymphatic: No: Anemia, Blood Clots *Physical Exam - Vital Signs Last Vital Signs Temp Pulse Resp BP Pulse Ox 97.6 F 102 H 16 107/55 L 99 04/06/19 13:00 04/06/19 13:00 04/06/19 13:00 04/06/19 13:00 04/06/19 13:00 - Physical Exam General Appearance: Yes: Nourished, Appropriately Dressed. No: Apparent Distress HEENT: positive: EOMI, JAMEL, Normal Voice, Hearing Grossly Normal. negative: Pale Conjunctivae Respiratory/Chest: positive: Lungs Clear, Normal Breath Sounds. negative: Chest Tender, Respiratory Distress, Crackles, Rales, Rhonchi, Stridor, Wheezing Cardiovascular: positive: Regular Rate, S1, S2, Irregular. negative: Edema, Murmur Gastrointestinal/Abdominal: positive: Normal Bowel Sounds, Soft, Mass ( protuberant suprapubic mass, soft, non tender), Other (erythematous groin region ). negative: Tender, Distended, Guarding, Rebound, Tenderness Integumentary: positive: Other (L lex1.5cm erythematous open wound over mid section of lateral L lower leg filled with clotted blood, no dischrge, surrounding erythema and warmth, 6.5cm deep, no crepitus/mass. R leg: skin breakdown, yellow discharge, circumferential erythema of R lower leg. +2 posterior malleolus pulses bilaterally, reduced sensation bilaterally) Neurologic: positive: Fully Oriented, Alert, Normal Mood/Affect, Normal Response , Responsive. negative: Confused, Disoriented ED Treatment Course - LABORATORY CBC & Chemistry Diagram: 04/06/19 15:15 04/06/19 15:15 Medical Decision Making - Critical Care Time Total Critical Care Time (minutes): 30 Critical Care Statement: The care of this patient involved high complexity decision making to prevent further life threatening deterioration of the patient 's condition and/or to evaluate & treat vital organ system(s) failure or risk of failure. - Medical Decision Making 04/06/19 14:16 CBC CMP lactate EKG blood/urine/wound cx L leg tib/fib XR evaluate soft tissue/bone involvement Started IV vanco for leg wound UA showed UTI +leuk est +nitrite - started zosyn INR 2.8 on coumadin CBC, lactate normal EKG shows a fib, RBBB May Hanley is a 84yF with PMHx of Afib (on Coumadin), HTN, DM, HLD, COPD, abdominal mass presenting with leg wound infection on lateral- mid aspect of left lower leg. No mass or crepitus palpated suggested deep tissue infection. L leg tib/fib XR did not show any fracture/dislocation. Started IV vanco based on previous cultures growing enterococcus faecium sensitive only to vanc, dapto, and linezolid. Started zosyn for UTI Will admit for leg wound infection and UTI PCP Dr. Xavi Raleigh *DC/Admit/Observation/Transfer Diagnosis at time of Disposition: UTI (lower urinary tract infection), Wound infection - Discharge Dispostion Condition at time of disposition: Stable Decision to Admit order: Yes - Referrals - Patient Instructions - Post Discharge Activity
[2019-04-06] MEDS ORDERED: VANCOMYCIN 1,750 MG in DEXTROSE 5%-WATER - 250 ML IVPB ONE (14:21)
[2019-04-06] MEDS ORDERED: VANCOMYCIN HCL 1,500 MG in DEXTROSE 5%-WATER - 500 ML IVPB ONE (15:57)
[2019-04-06 16:26] LABS: EPI CELLS 0.2 /HPF (0-5/HPF); HYALINE CASTS 2 /lpf (0-8); URINE APPEARANCE CLOUDY; URINE BACTERIA 5539.6 /hpf (NEGATIVE); URINE BILIRUBIN NEGATIVE (NEGATIVE); URINE COLOR YELLOW; URINE GLUCOSE (UA) NEGATIVE (NEGATIVE); URINE KETONE NEGATIVE (NEGATIVE); URINE LEUK ESTERASE 3+ (NEGATIVE); URINE NITRITE POSITIVE (NEGATIVE); URINE PROTEIN NEGATIVE (NEGATIVE); URINE RBC 11 /hpf (0-4); URINE WBC 590 /hpf (0-5)
[2019-04-06 16:26] LABS: INR 2.87 (0.83-1.09); PROTHROMBIN TIME (PATIENT) 34.2 SEC (9.7-13.0)
[2019-04-06 16:38] LABS: ALBUMIN 3.2 g/dl (3.4-5.0); BILIRUBIN,TOTAL 1.2 mg/dL (0.2-1); BLOOD UREA NITROGEN 21.3 mg/dL (7-18); CALCIUM 9.1 mg/dL (8.5-10.1); CREATININE 0.7 mg/dL (0.55-1.3); TOT PROT 7.1 g/dl (6.4-8.2)
[2019-04-06 16:39] LABS: POTASSIUM 4.3 mmol/L (3.5-5.1)
[2019-04-06 16:43] LABS: BASO % 0.8 % (0-2.0); EOS % 2.8 % (0-4.5); HEMATOCRIT 38.9 % (32.4-45.2); HEMOGLOBIN 12.6 GM/dL (10.7-15.3); LYMPH % 18.3 % (8-40); MCH 27.3 pg (25.7-33.7); MCHC 32.3 g/dl (32.0-36.0); MEAN CELL VOLUME 84.5 fl (80-96); MEAN PLT VOLUME 8.1 fl (7.5-11.1); MONO % 7.4 % (3.8-10.2); NEUT % 70.7 % (42.8-82.8); PLATELET COUNT 303 K/MM3 (134-434); RDW 20.6 % (11.6-15.6); WHITE BLOOD COUNT 9.6 K/mm3 (4.0-10.0)
--- NOTE | 2019-04-06 17:04 | PDOC ---
Documentation entered by Esequiel Miller SCRIBE, acting as scribe for Maliha Brown MD. Maliha Brown MD: This documentation has been prepared by the Paul mohamud Collisia, SCRIBE, under my direction and personally reviewed by me in its entirety. I confirm that the documentation accurately reflects all work, treatment, procedures, and medical decision making performed by me. Attending Attestation - Resident Resident Name: Owen Calderón - HPI HPI: 04/06/19 15:31 The patient is an 84 year old female with a significant past medical history of asthma, COPD, CHF, hypertension and hyperlipidemia who presents to the emergency department with a left calf wound for 3 weeks. The patient states that she had a bruise on her left calf that was not healing and turned into a wound. The patient states that she went to wound care this morning to cut her toe nails by which they sent her to the ED for further evaluation of her left leg. She states that she has been experiencing some associated wound leakage. The patient states that she has been able to ambulate but denies any pain, numbness fever, chills, nausea, vomiting, diarrhea, constipation or urinary symptoms. She denies any other symptoms or complaints. - Physicial Exam PE: 04/06/19 16:18 GENERAL: Awake, alert, and fully oriented, in no acute distress HEAD: No signs of trauma EYES: PERRLA, EOMI, sclera anicteric, conjunctiva clear ENT: Auricles normal inspection, hearing grossly normal, nares patent, oropharynx clear without exudates. Moist mucosa NECK: Normal ROM, supple, no lymphadenopathy, JVD, or masses LUNGS: Breath sounds equal, clear to auscultation bilaterally. No wheezes, and no crackles HEART: Regular rate and rhythm, normal S1 and S2, no murmurs, rubs or gallops ABDOMEN: Soft, nontender, normoactive bowel sounds. No guarding, no rebound. No masses EXTREMITIES:(+)legs are erythematous to knees bilaterally, RLE had 3x8cm area of open skin, LLE has 2x2cm deep open wound. Normal range of motion, no edema. No clubbing or cyanosis. No cords, or tenderness NEUROLOGICAL: Cranial nerves II through XII grossly intact. Normal speech, normal gait SKIN: Warm, Dry, normal turgor, no rashes or lesions noted. - Medical Decision Making 04/06/19 17:02 Pt presents to the ED after sent in for IV antibiotics for worsening bilateral lower extremity cellulitis. No systemic signs of infection, but extensive cellulitis and open wounds to both legs. Will treat with IV vancomycin and admit to medicine.
[2019-04-06] MEDS ORDERED: PIPERACILLIN/TAZOB 3.375 GM 3.375 GM/50 ML BAG IVPB ONE (17:56)
[2019-04-06] MEDS: PIPERACILLIN/TAZOB 3.375 GM 3.375 GM in DEXTROSE 5%-WATER - 50 ML IVPB ONE ×2 (17:57→22:08)
--- NOTE | 2019-04-06 18:07 | PN ---
Teaching Attending Note Name of Resident: Kaelyn Lucas ATTENDING PHYSICIAN STATEMENT I saw and evaluated the patient. I reviewed the resident's note and discussed the case with the resident. I agree with the resident's findings and plan as documented with exceptions below. 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 Since then had a open wound left mid lateral leg with ongoing bleeding and surrounding ecchymosis, redness. Was seen in wound care center today and sent to ED. Denies any fevers, chills, increase right leg redness/pain swelling, abdominal symptoms. Reports occasional dysuria, but no urinary frequency/urgency, abdominal or flank pain. OBJECTIVE: Vital Signs Period Temp Pulse Resp BP Sys/Luke Pulse Ox Last 24 Hr 97.0 F-97.6 F 85-102 16 107-112/55-58 97-99 Intake & Output 04/03/19 04/04/19 04/05/19 04/06/19 23:59 23:59 23:59 23:59 Weight 260 lb GENERAL: Awake, alert, and fully oriented, in no acute distress, morbidly obese , BMI 43.3. HEAD: Normal with no signs of trauma. EYES: Pupils equal, round and reactive to light, extraocular movements intact, sclera anicteric, conjunctiva clear. No lid lag. EARS, NOSE, THROAT: Ears normal, nares patent, oropharynx clear without exudates. Moist mucous membranes. NECK: Normal range of motion, supple, no JVD or massess LUNGS: Breath sounds equal, clear to auscultation bilaterally. No wheezes, and no crackles. No accessory muscle use. HEART: S1S2 irregular ABDOMEN: Soft, obese, nontender, not distended, normoactive bowel sounds, no guarding, no rebound, no masses. No suprapubic tenderness MUSCULOSKELETAL: Normal range of motion at all joints. No bony deformities or tenderness. No CVA tenderness. UPPER EXTREMITIES: 2+ pulses, warm, well-perfused. No cyanosis. No clubbing. No peripheral edema. LOWER EXTREMITIES: RLE: chronic skin pink discoloration till below knee with extensive thickening/ excoriation/cracks/swelling and crusting, right 2nd toe amputation LLE: 1 cm deep wound dark blood oozing through the gaping wound, surround erythema extending from below left knee till leg with blistering/edema, ecchymosis below the gapin wound, good capillary refill NEUROLOGICAL: Facial symmetry, tongue midline Cranial nerves II-XII intact. Normal speech. gait not observed PSYCHIATRIC: Cooperative. Good eye contact. Appropriate mood and affect. SKIN: Warm, dry, normal turgor, no rashes or lesions noted, normal capillary refill. Laboratory Results - last 24 hr 04/06/19 04/06/19 04/06/19 15:14 15:15 15:15 WBC 9.6 RBC 4.60 Hgb 12.6 Hct 38.9 MCV 84.5 MCH 27.3 MCHC 32.3 RDW 20.6 H Plt Count 303 D MPV 8.1 Absolute Neuts (auto) 6.8 Neutrophils % 70.7 Lymphocytes % 18.3 Monocytes % 7.4 Eosinophils % 2.8 Basophils % 0.8 Nucleated RBC % 0 PT with INR INR PTT (Actin FS) Sodium 144 Potassium 4.3 Chloride 105 Carbon Dioxide 33 H Anion Gap 6 L BUN 21.3 H Creatinine 0.7 Est GFR (CKD-EPI)AfAm 92.86 Est GFR (CKD-EPI)NonAf 80.12 Random Glucose 127 H Lactic Acid 1.6 Calcium 9.1 Total Bilirubin 1.2 H AST 25 ALT 12 L Alkaline Phosphatase 114 Total Protein 7.1 Albumin 3.2 L Urine Color Urine Appearance Urine pH Ur Specific Admire Urine Protein Urine Glucose (UA) Urine Ketones Urine Blood Urine Nitrite Urine Bilirubin Urine Urobilinogen Ur Leukocyte Esterase Urine WBC (Auto) Urine RBC (Auto) Urine Casts (Auto) U Epithel Cells (Auto) Urine Bacteria (Auto) 04/06/19 04/06/19 04/06/19 15:15 15:15 15:20 WBC RBC Hgb Hct MCV MCH MCHC RDW Plt Count MPV Absolute Neuts (auto) Neutrophils % Lymphocytes % Monocytes % Eosinophils % Basophils % Nucleated RBC % PT with INR 34.20 H INR 2.87 H PTT (Actin FS) 39.6 H Sodium Potassium Chloride Carbon Dioxide Anion Gap BUN Creatinine Est GFR (CKD-EPI)AfAm Est GFR (CKD-EPI)NonAf Random Glucose Lactic Acid Calcium Total Bilirubin AST ALT Alkaline Phosphatase Total Protein Albumin Urine Color Yellow Urine Appearance Cloudy Urine pH 7.0 Ur Specific Admire 1.010 Urine Protein Negative Urine Glucose (UA) Negative Urine Ketones Negative Urine Blood 1+ H Urine Nitrite Positive H Urine Bilirubin Negative Urine Urobilinogen 1.0 Ur Leukocyte Esterase 3+ H Urine WBC (Auto) 590 Urine RBC (Auto) 11 Urine Casts (Auto) 2 U Epithel Cells (Auto) 0.2 Urine Bacteria (Auto) 5539.6 Left tibia fibula xray results noted, foreign body/needle lateral calcaneus EKG Afib, RBBB ASSESSMENT AND PLAN: 84 yof with PMhx of LE wounds followed at Wound care center, with multiple polymicrobial infection, 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 Zosyn/vancomycin. ID input. Blood cultures. Send wound cx. Podiatry/vascular surgery input. Hold coumadin tonight, Resume vs lovenox pending need for surgical intervention. Ongoing oozing from penetrating wound. LE duplex. UTI vs asymptomatic bacteruria. Abx as above. Monitor for now. Continue lasix, digoxin. ISs, diabetic diet DVTPPX therapeutic on coumadin. Dispo pending clinical improvement. PT eval once improved. Plan discussed with patient in detail, all questions answered. Med list confirmed with Dr. Torrez. Admit to med surg. Total admit time spent 65 min .
--- NOTE | 2019-04-06 18:43 | PN ---
Progress Note, Physician Chief Complaint: LE wound and bleeding x 3 weeks History of Present Illness: Pt is an 84 yo F with PMHx of COPD (2L), KATERINA, NIDDM, Afib on coumadin, DVT, LE ( wound center) with prior multiple wound infection, ESBL UTI sent from wound care for worsening LLE wound after she presented for nail care per pt. - Current Medication List Current Medications: Active Medications Vancomycin HCl (Vancomycin (Pre-Docked)) 1,000 mg in 250 mls @ 166.667 mls/hr IVPB ONCE ONE; Protocol Stop: 04/07/19 17:29 Piperacillin Sod/Tazobactam (Sod 3.375 gm/ Dextrose) 50 mls @ 100 mls/hr IVPB Q8H-IV LYUDMILA; Protocol Piperacillin Sod/Tazobactam (Sod 3.375 gm/ Dextrose) 50 mls @ 100 mls/hr IVPB Q8H-IV LYUDMILA; Protocol Stop: 04/07/19 18:29 Insulin Aspart (Novolog Vial Sliding Scale -) 0 vial SQ ACHS LYUDMILA; Protocol - Objective Vital Signs: Vital Signs Temperature 97.0 F L 04/06/19 16:58 Pulse Rate 85 04/06/19 16:58 Respiratory Rate 16 04/06/19 13:00 Blood Pressure 112/58 L 04/06/19 16:58 O2 Sat by Pulse Oximetry (%) 97 04/06/19 16:58 Labs: CBC, BMP 04/06/19 15:15 04/06/19 15:15 INR, PTT INR 2.87 (0.83-1.09) H 04/06/19 15:15 ATTENDING PHYSICIAN STATEMENT I saw and evaluated the patient. I reviewed the resident's note and discussed the case with the resident. I agree with the resident's findings and plan as documented. SUBJECTIVE: OBJECTIVE: ASSESSMENT AND PLAN:
[2019-04-06 18:46] LABS: ANISOCYTOSIS 2+; MACROCYTOSIS 2+; PLATELET ESTIMATE NORMAL
--- NOTE | 2019-04-06 19:14 | HP ---
Admitting History and Physical - Primary Care Physician PCP: Dr Storey - Admission Chief Complaint: LLE wound and swelling x3 days History of Present Illness: Pt is an 84 yo F with PMHx of COPD (2L), KATERINA, morbid obesity, NIDDM, Afib on coumadin, DVT, 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 Pt describes being injured by a fallen log about 3 weeks ago. Pt lives alone with independent ADLS and ambulates with a walker. Has been taking care of the wound on her own using gauze. She denies fevers, or chills. Pt reports increased urinary frequency, but denies hematuria or dysuria. Pt reports having home oxygen that she uses occasionally. She reports being taken off her diabetes oral medications. Pt appears not to have been compliant on her wound care follow up at [facility] despite multiple prior wound infections as documented above. Prior Ucx (11/2018)- E fecum sensitive to Linezolid, penicillin, vancomycin R ankle wound- showed multiple orgs including MRSA ED: INR-2.87 Lactic acid 1.6 UA: Positive nitrites, LE 3+, WBC-590, RBC-11, Epith-0.2, Urine [id number] Vanc/zosyn History Source: Patient, Medical Record Limitations to Obtaining History: Poor Historian - Past Medical History Cardiovascular: Yes: AFIB, CHF, Deep Vein Thrombosis, HTN, Hyperlipdemia Pulmonary: Yes: Asthma, COPD, O2 Dependent Gastrointestinal: Yes: Hiatal Hernia Infectious Disease: Yes: MRSA, VREF Musculoskeletal: Yes: Osteoarthritis Endocrine: Yes: Diabetes Mellitus, Hypothyroidism Dermatology: Yes: Cellulitis, Eczema - Past Surgical History Past Surgical History: Yes: Appendectomy, Cholecystectomy, Hernia Repair (times three), Oopherectomy, Tonsillectomy - Smoking History Smoking history: Former smoker Have you smoked in the past 12 months: No Aproximately how many cigarettes per day: 0 If you are a former smoker, when did you quit?: 2007 - Alcohol/Substance Use Hx Alcohol Use: No History of Substance Use: reports: None - Social History ADL: Independent History of Recent Travel: No Home Medications - Allergies Allergies/Adverse Reactions: Allergies Allergy/AdvReac Type Severity Reaction Status Date / Time No Known Allergies Allergy Verified 12/10/18 09:05 - Home Medications Home Medications: Ambulatory Orders Allopurinol [Zyloprim -] 100 mg PO DAILY 12/10/18 Digoxin [Lanoxin -] 0.125 mg PO DAILY 12/10/18 Folic Acid 1 mg PO DAILY 12/10/18 Furosemide 40 mg PO BID 12/10/18 Gabapentin 100 mg PO TID 12/10/18 Levothyroxine [Synthroid -] 50 mcg PO DAILY 12/10/18 Losartan Potassium 25 mg PO DAILY 12/10/18 Warfarin Sodium 4 mg PO ASDIR MDD 2mg/4 mg everyother day 12/10/18 Albuterol 0.083% Nebulizer Bonnie [Ventolin 0.083% Nebulizer Soln -] 1 amp NEB QID 30 Days #1 amp 12/13/18 Insulin Sliding Scale [Novolog Vial Sliding Scale -] 1 vial SQ ACHS #1 units Tiotropium [place] [Spiriva Respimat] 2 puff IH DAILY #30 inhaler 12/13/18 Acetaminophen [Tylenol .Regular Strength -] 325 mg PO PRN PRN 04/06/19 Loratadine 10 mg PO DAILY 04/06/19 Mineral Oil/Hydrophil Petrolat [Dermaphor Ointment] 1 applic TP DAILY 04/06/19 Nystatin Powder [Nystop Powder -] 1 applic TP DAILY 04/06/19 Potassium Chloride 30 meq PO DAILY 04/06/19 Family Disease History - Family Disease History Family Disease History: Heart Disease: Mother ([place]), Other: Father (ETOH cirrhosis), Sister (alive and well) Review of Systems - Review of Systems Constitutional: denies: Chills, Fever, Lethargy HENT: denies: Difficult Swallowing Cardiovascular: reports: Edema. denies: Chest Pain, Palpitations, Shortness of Breath Respiratory: denies: Cough, Wheezing Gastrointestinal: denies: Abdominal Pain Genitourinary: reports: Frequency. denies: Burning, Dysuria, Hematuria Integumentary: reports: Blister, Change in Color, Erythema, Lesions Hematology/Lymphatic: reports: Excessive Bleeding Physical Examination Vital Signs: Vital Signs Temperature 97.0 F L 04/06/19 16:58 Pulse Rate 85 04/06/19 16:58 Respiratory Rate 16 04/06/19 13:00 Blood Pressure 112/58 L 04/06/19 16:58 O2 Sat by Pulse Oximetry (%) 97 04/06/19 16:58 Constitutional: Yes: No Distress Eyes: Yes: Conjunctiva Clear Neck: Yes: Supple Cardiovascular: Yes: Regular Rate and Rhythm, S1, S2 Respiratory: Yes: CTA Bilaterally. No: Rhonchi, SOB Gastrointestinal: Yes: Normal Bowel Sounds, Soft, Abdomen, Obese Renal/: No: Bae Present, Hematuria Extremities: Yes: Erythema Edema: Yes Edema: LLE: 3+, RLE: 3+ Peripheral Pulses WNL: No Peripheral Pulses: Left Radial: 2+, Right Radial: 2+ Wound/Incision: Yes: Draining, Bleeding Neurological: Yes: Alert, Oriented, Cran Nerves II-XII Intact. No: Aphasia, Facial Droop, Pre-Existing Deficit ...Motor Strength: WNL Labs: CBC, BMP 04/06/19 15:15 04/06/19 15:15 Imaging - Results X-ray: Report Reviewed (Left Tibial/Fibula Arthritic changes. Loss of bone density. Metallic foreign body , needlein soft tissue just lateral to the calcaneal bone.) Assessment/Plan Ambulatory Orders Allopurinol [Zyloprim -] 100 mg PO DAILY 12/10/18 Digoxin [Lanoxin -] 0.125 mg PO DAILY 12/10/18 Folic Acid 1 mg PO DAILY 12/10/18 Furosemide 40 mg PO BID 12/10/18 Gabapentin 100 mg PO TID 12/10/18 Levothyroxine [Synthroid -] 50 mcg PO DAILY 12/10/18 Losartan Potassium 25 mg PO DAILY 12/10/18 Warfarin Sodium 4 mg PO ASDIR MDD 2mg/4 mg everyother day 12/10/18 Albuterol 0.083% Nebulizer Bonnie [Ventolin 0.083% Nebulizer Soln -] 1 amp NEB QID 30 Days #1 amp 12/13/18 Insulin Sliding Scale [Novolog Vial Sliding Scale -] 1 vial SQ ACHS #1 units Tiotropium [place] [Spiriva Respimat] 2 puff IH DAILY #30 inhaler 12/13/18 Acetaminophen [Tylenol .Regular Strength -] 325 mg PO PRN PRN 04/06/19 Loratadine 10 mg PO DAILY 04/06/19 Mineral Oil/Hydrophil [place]rol[place] [Dermaphor Ointment] 1 applic TP DAILY 04/06/19 Nystatin Powder [Nystop Powder -] 1 applic TP DAILY 04/06/19 Potassium Chloride 30 meq PO DAILY 04/06/19 Current Medications Acetaminophen (Tylenol -) 325 mg PO Q6H PRN PRN Reason: PAIN SCALE 1-5 Albuterol Sulfate (Ventolin 0.083% Nebulizer Soln -) 1 amp NEB RQID [facility] Last Admin: 04/06/19 20:00 Dose: Not Given Allopurinol (Zyloprim -) 100 mg PO DAILY [facility] Digoxin (Lanoxin -) 0.125 mg PO DAILY [facility] Last Admin: 04/06/19 20:48 Dose: 0.125 mg Folic Acid (Folic Acid -) 1 mg PO DAILY [facility] Last Admin: 04/06/19 20:48 Dose: 1 mg Furosemide (Lasix -) 40 mg PO BID@0600,1400 [facility] Gabapentin (Neurontin -) 100 mg PO TID [facility] Last Admin: 04/06/19 22:09 Dose: 100 mg Vancomycin HCl (Vancomycin (Pre-Docked)) 1,000 mg in 250 mls @ 166.667 mls/hr IVPB ONCE ONE; Protocol Stop: 04/07/19 17:29 Piperacillin Sod/Tazobactam (Sod 3.375 gm/ Dextrose) 50 mls @ 100 mls/hr IVPB Q8H-IV [facility]; Protocol Piperacillin Sod/Tazobactam (Sod 3.375 gm/ Dextrose) 50 mls @ 100 mls/hr IVPB Q8H-IV [facility]; Protocol Stop: 04/07/19 18:29 Insulin Aspart (Novolog Vial Sliding Scale -) 0 vial SQ ACHS [facility]; Protocol Levothyroxine Sodium (Synthroid -) 50 mcg PO AM [facility] Loratadine (Claritin -) 10 mg PO DAILY [facility] Losartan Potassium (Cozaar -) 25 mg PO DAILY [facility] Last Admin: 04/06/19 20:48 Dose: 25 mg Multi-Ingredient Lotion (Eucerin (Small Jar) -) 1 applic TP DAILY [facility] Non-Formulary Medication (Potassium Chloride [Potassium Chloride]) 30 meq PO DAILY [facility] Nystatin (Nystop Powder -) 1 applic TP DAILY [facility] Tiotropium [place] (Spiriva Respimat) 2 puff IH DAILY [facility] Duplex- LLE- Lpost tibial could not be properly visualized otherwise no DVT Assessment/Plan: Pt is an 84 yo F with PMHx of COPD (2L), KATERINA, morbid obesity, NIDDM, Afib on coumadin, DVT, 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 #worsening LLE wound and cellulitis s/p trauma and chronic venous stasis Pt on coumadin with recurrent multidrug resistant infections in past Pt currently bleeding from LLE in setting of therapeutic INR, compression dressing recommended Cont vanc/zosyn ID- Dr Rivero Duplex LLE- negative DVT except post tibial not well visualized Local wound dressing per podiatry-Dr Ayoub Vascular surgery eval- Dr Dugan Coumadin on hold for today, pending surgical eval NPO after midnight wcx pending #Chronic RLE wound with dermatitis/venous stasis Local wound dressing by podiatry ID on case #Positive UA Pt reports increased frequency unclear if asymptomatic bacteriuria Cont vanc/zosyn Has had ESBL in past, pending ID asessment #Persistent atrial fibrillation coumadin Coumadin on hold for now pending procedure if needed Therapeutic currently May need transitioning to lovenox/heparin Pending eval by podiatry/sx Cont dig Dig level #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 Med surg Visit type - Emergency Visit Emergency Visit: Yes ED Registration Date: 04/06/19 Care time: The patient presented to the Emergency Department on the above date and was hospitalized for further evaluation of their emergent condition. - New Patient This patient is new to me today: Yes Date on this admission: 04/06/19 - Critical Care Critical Care patient: No ATTENDING PHYSICIAN STATEMENT I saw and evaluated the patient. I reviewed the resident's note and discussed the case with the resident. I agree with the resident's findings and plan as documented. SUBJECTIVE: OBJECTIVE: ASSESSMENT AND PLAN:
[2019-04-06] MEDS: ALBUTEROL SO4 0.083% IH SOL 2.5 MG/3 ML VIAL.NEB. NEB SCH (20:00)
[2019-04-06] MEDS ORDERED: FOLIC ACID 1 MG TABLET (FP) ONE (20:43)
[2019-04-06] MEDS ORDERED: LOSARTAN POTASSIUM 50 MG TABLET (FP) ONE (20:43)
[2019-04-06] MEDS ORDERED: DIGOXIN 0.125 MG TABLET (FP) ONE (20:43)
[2019-04-06] MEDS: FOLIC ACID 1 MG TABLET (FP) PO SCH (20:48)
[2019-04-06] MEDS: LOSARTAN POTASSIUM 25 MG TABLET PO SCH (20:48)
[2019-04-06] MEDS: DIGOXIN 0.125 MG TABLET (FP) PO SCH (20:48)
[2019-04-06] MEDS ORDERED: FUROSEMIDE 40 MG TABLET (FP) PO SCH (22:00)
[2019-04-06] MEDS ORDERED: INSULIN SLIDING SCALE (NOVOLOG) 1 VIAL SQ SCH (22:00)
[2019-04-06] MEDS: GABAPENTIN 100 MG CAPSULE (FP) PO SCH (22:09)
[2019-04-07] MEDS ORDERED: PIPERACILLIN/TAZOBACTAM 3.375 GM VIAL IVPB ONE ×3 (02:04→15:46)
[2019-04-07] MEDS ORDERED: DEXTROSE 5%-WATER - 50 ML IVPB ONE ×3 (02:05→15:46)
[2019-04-07] MEDS: PIPERACILLIN/TAZOB 3.375 GM 3.375 GM in DEXTROSE 5%-WATER - 50 ML IVPB SCH ×2 (06:38→10:35)
[2019-04-07] MEDS: LEVOTHYROXINE NA 50 MCG TABLET (FP) PO SCH (06:42)
[2019-04-07] MEDS: GABAPENTIN 100 MG CAPSULE (FP) PO SCH ×3 (06:42→21:09)
[2019-04-07] MEDS: FUROSEMIDE 40 MG TABLET (FP) PO SCH ×2 (06:42→13:30)
[2019-04-07] MEDS: ALBUTEROL SO4 0.083% IH SOL 2.5 MG/3 ML VIAL.NEB. NEB SCH ×4 (07:54→21:40)
--- NOTE | 2019-04-07 08:14 | EKG ---
Test Reason : Blood Pressure : / mmHG Vent. Rate : 091 BPM Atrial Rate : 083 BPM P-R Int : 000 ms QRS Dur : 130 ms QT Int : 368 ms P-R-T Axes : 000 083 -06 degrees QTc Int : 452 ms POOR DATA QUALITY, INTERPRETATION MAY BE ADVERSELY AFFECTED ATRIAL FIBRILLATION RIGHT BUNDLE BRANCH BLOCK ABNORMAL ECG WHEN COMPARED WITH ECG OF 10-DEC-2018 09:56, QT HAS SHORTENED Confirmed by RAISA CHAUDHARI, PAPA ([id number]) on 04/07/2019 8:14:09 AM Referred By: Confirmed By:PAPA KLINE MD
--- NOTE | 2019-04-07 08:33 | PN ---
Progress Note (short form) - Note Progress Note: Hospitalist to document today. Open wound left calf laterally draining darkened bloody fluid that the patient says began several weeks ago when a side of the hospital bed at home struck her leg. She still went to [facility] for 1 week and just returned Friday last week. C /S done. For Surgical and ID consult. Hx: A. Fib, venous stasis ulcers, morbid obesity and DM.
[2019-04-07 08:51] LABS: ALBUMIN 2.6 g/dl (3.4-5.0); BILIRUBIN,TOTAL 0.8 mg/dL (0.2-1); BLOOD UREA NITROGEN 18.1 mg/dL (7-18); CALCIUM 8.5 mg/dL (8.5-10.1); CREATININE 0.7 mg/dL (0.55-1.3); PHOSPHOROUS 2.8 mg/dL (2.5-4.9); POTASSIUM 3.9 mmol/L (3.5-5.1); TOT PROT 5.6 g/dl (6.4-8.2)
[2019-04-07 09:18] LABS: INR 2.57 (0.83-1.09); PROTHROMBIN TIME (PATIENT) 30.6 SEC (9.7-13.0)
[2019-04-07 09:20] LABS: ACTIVATED PTT 38.6 SECONDS (25.2-36.5)
[2019-04-07 09:44] LABS: BASO % 0.8 % (0-2.0); EOS % 4.2 % (0-4.5); HEMATOCRIT 33.4 % (32.4-45.2); HEMOGLOBIN 10.9 GM/dL (10.7-15.3); LYMPH % 14.5 % (8-40); MCH 27.3 pg (25.7-33.7); MCHC 32.5 g/dl (32.0-36.0); MEAN PLT VOLUME 7.8 fl (7.5-11.1); MONO % 7.5 % (3.8-10.2); PLATELET COUNT 267 K/MM3 (134-434); RBC 3.98 M/mm3 (3.60-5.2); RDW 19.8 % (11.6-15.6); WHITE BLOOD COUNT 7.6 K/mm3 (4.0-10.0)
[2019-04-07] MEDS: LORATADINE 10 MG TABLET PO SCH (10:31)
[2019-04-07] MEDS: ALLOPURINOL 100 MG TABLET (FP) PO SCH (10:31)
[2019-04-07] MEDS: LOSARTAN POTASSIUM 25 MG TABLET PO SCH (10:31)
[2019-04-07] MEDS: FOLIC ACID 1 MG TABLET (FP) PO SCH (10:32)
--- NOTE | 2019-04-07 11:18 | CONSULT ---
Consult - text type - Consultation Consultation Note: Podiatry Consultation: 84 year old diabetic female well known to me presented to wound healing center for routine care yesterday, found to have significant leg wound with infection which prompted admission to hospital. Patient complains of elongated toe nails. History of MRSA right second toe s/p second toe amputation. Denies F/V/N/C/SOB /CP. PMHx: COPD (2L), KATERINA, morbid obesity, NIDDM, Afib on coumadin, DVT, 2nd toe MRSA /VRE OM s/p amputation 05/2017, chronic venous stasis LE Meds: noted ALL: NKMA LUIS: Pedal pulses 1/4, TG wnl, CFT brisk to toes bilaterally. Nails are elongated, discolored, thickened with subungual debris, brittle, tender to palpation x 10. There are no nail bed ulcers, no signs of digital infections. Epicritic and protective sensations grossly diminished. Imp: 84 year old diabetic female with onychomycosis bilaterally 1. Manual debridement of clinically mycotic nails bilaterally using nail nipper. Patient tolerated the procedure well. 2. Discussed appropriate diabetic foot hygiene. 3. Can f/u as outpatient upon discharge in 2-3 months. Thank you for the courtesy of this consultation Mg Ayoub DPM
[2019-04-07] MEDS: DIGOXIN 0.125 MG TABLET (FP) PO SCH (11:37)
[2019-04-07] MEDS: TIOTROPIUM BROMIDE 2.5 MCG (SPIRIVA) RESPIMAT INHALER IH SCH (11:39)
[2019-04-07] MEDS: MINERAL OIL/PETROLAT/WATER TOPICAL CREAM 113 GM JAR TP SCH (11:52)
[2019-04-07] MEDS: NYSTATIN POWDER 100,000 UNITS/GM - 15 GM TOPICAL POWDER TP SCH (11:53)
[2019-04-07] MEDS: ACETAMINOPHEN 325 MG TABLET (FP) PO PRN ×2 (12:38→21:09)
--- NOTE | 2019-04-07 13:16 | CONSULT ---
- Consultation REQUESTING PROVIDER: CONSULT REQUEST: We have been asked to surgically evaluate this patient for left leg wound. PCP:Libra Crump MD HISTORY OF PRESENT ILLNESS: The patient is a 84 yo female with a history of chronic lower extremity venous stasis. She sees Dr. Dugan in the wound clinic or these issues. The patient states that she she injured her leg about 3 weeks ago. She noticed a bruise and bump and then it opened up recently. She has been caring for it by washing it off. The patient went to wound care to have her nail cut by Dr. Ayoub and the LLE wound was noted and she was advised to come to the hospital. 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 Home Medications Medication Instructions Recorded Allopurinol [Zyloprim -] 100 mg PO DAILY 12/10/18 Digoxin [Lanoxin -] 0.125 mg PO DAILY 12/10/18 Folic Acid 1 mg PO DAILY 12/10/18 Furosemide 40 mg PO BID 12/10/18 Gabapentin 100 mg PO TID 12/10/18 Levothyroxine [Synthroid -] 50 mcg PO DAILY 12/10/18 Losartan Potassium 25 mg PO DAILY 12/10/18 Warfarin Sodium 4 mg PO ASDIR MDD 2mg/4 mg 12/10/18 everyother day Albuterol 0.083% Nebulizer Bonnie 1 amp NEB QID 30 Days #1 amp 12/13/18 [Ventolin 0.083% Nebulizer Soln -] Insulin Sliding Scale [Novolog 1 vial SQ ACHS #1 units 12/13/18 Vial Sliding Scale -] Tiotropium [place] [Spiriva 2 puff IH DAILY #30 inhaler 12/13/18 Respimat] Acetaminophen [Tylenol .Regular 325 mg PO PRN PRN 04/06/19 Strength -] Loratadine 10 mg PO DAILY 04/06/19 Mineral Oil/Hydrophil Petrolat 1 applic TP DAILY 04/06/19 [Dermaphor Ointment] Nystatin Powder [Nystop Powder -] 1 applic TP DAILY 04/06/19 Potassium Chloride 30 meq PO DAILY 04/06/19 Allergies Allergy/AdvReac Type Severity Reaction Status Date / Time No Known Allergies Allergy Verified 12/10/18 09:05 REVIEW OF SYSTEMS: CONSTITUTIONAL: Absent: fever, chills PHYSICAL EXAM: LOWER EXTREMITIES: LLE: mild celluliitis surrounding the wound, approx 10 x 8 cm. Open wound to Left upper extremity 1x2 cm and undermines 5x5 cm superiorly from 3 to 9 o clock position. Doesn't undermine interiorly. Old clot evacuated from wound when irrigated with 200 CC NS. Wound packed with wet to dry kerlix. No swelling to ankle. Chronic venous stasis changes. +2 DP pulses. No open wounds to foot RLE: Chronic venous stasis, area with ozzing to lateral ankle/dorsal aspect of foot and mid myers. No cellulitis. Xeroform, kerlix and Rajan wrap applied. +2 DP pulses Vital Signs Temperature 99 F 04/07/19 06:00 Pulse Rate 72 04/07/19 11:37 Respiratory Rate 20 04/07/19 06:00 Blood Pressure 130/60 04/07/19 06:00 O2 Sat by Pulse Oximetry (%) 96 04/07/19 00:38 Lab Results WBC 7.6 K/mm3 (4.0-10.0) 04/07/19 06:45 RBC 3.98 M/mm3 (3.60-5.2) 04/07/19 06:45 Hgb 10.9 GM/dL (10.7-15.3) 04/07/19 06:45 Hct 33.4 % (32.4-45.2) 04/07/19 06:45 MCV 84.0 fl (80-96) 04/07/19 06:45 MCHC 32.5 g/dl (32.0-36.0) 04/07/19 06:45 RDW 19.8 % (11.6-15.6) H 04/07/19 06:45 Plt Count 267 K/MM3 (134-434) 04/07/19 06:45 Sodium 144 mmol/L (136-145) 04/07/19 06:45 Potassium 3.9 mmol/L (3.5-5.1) 04/07/19 06:45 Chloride 108 mmol/L (98-107) H 04/07/19 06:45 Carbon Dioxide 29 mmol/L (21-32) 04/07/19 06:45 Anion Gap 7 MMOL/L (8-16) L 04/07/19 06:45 BUN 18.1 mg/dL (7-18) H 04/07/19 06:45 Creatinine 0.7 mg/dL (0.55-1.3) 04/07/19 06:45 Random Glucose 139 mg/dL (74-106) H 04/07/19 06:45 Calcium 8.5 mg/dL (8.5-10.1) 04/07/19 06:45 INR 2.57 (0.83-1.09) H 04/07/19 06:45 LLE vascular study: No CFV, deep or popliteal DVT visualized. LLE not examined secondary to dressing Xray Left Leg: No fractures/dislocations. Left calcaneous metallic foregin body visualized. Problem List - Problems (1) Wound infection Assessment/Plan: LLE hematoma with spontaneous opening/drainage. Mild cellulitis. Local wound care completed today for both lower extremitites. No surgical debridement needed at this time. Monitor wound for improvement with local daily wound care and IV abx. If wound doesn't improve than she may need a surgical debridment. Surgery to follow the patient. Also noted was a metallic foreign body in her foot. No pain, open wound to the area. Pt doesn't recall when this may have happened. If she develops pain, recommend to follow up with podiatry. She was seen as a new pt with Dr. Ayoub. D/w Dr. Dugan Code(s): T14.8XXA - OTHER INJURY OF UNSPECIFIED BODY REGION, INITIAL ENCOUNTER; L08.9 - LOCAL INFECTION OF THE SKIN AND SUBCUTANEOUS TISSUE, UNSP
--- NOTE | 2019-04-07 15:57 | PN ---
Progress Note (short form) - Note Progress Note: ID consult dictated imp/reccd celllitis secondary to hematoma asymptomatic bacteriuria morbid obesity history of resistant organisms- mrsa/ecoli esbl-continue contact isolation continue vancomycin and zosyn f/u cultures in am d/w surgery PA Problem List - Problems (1) Wound infection Code(s): T14.8XXA - OTHER INJURY OF UNSPECIFIED BODY REGION, INITIAL ENCOUNTER; L08.9 - LOCAL INFECTION OF THE SKIN AND SUBCUTANEOUS TISSUE, UNSP (2) Asymptomatic bacteriuria Code(s): R82.71 - BACTERIURIA (3) Morbid obesity Code(s): E66.01 - MORBID (SEVERE) OBESITY DUE TO EXCESS CALORIES (4) 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
[2019-04-07] MEDS ORDERED: VANCOMYCIN 1 GRAM (PRE-DOCKED) 1,000 MG/250 ML BAG IVPB ONE (16:00)
--- NOTE | 2019-04-07 17:17 | PN ---
Teaching Attending Note Name of Resident: Kaelyn Lucas ATTENDING PHYSICIAN STATEMENT I saw and evaluated the patient. I reviewed the resident's note and discussed the case with the resident. I agree with the resident's findings and plan as documented. SUBJECTIVE: Ms Hanley says she is feeling well today and is without complaint. Denies cp, sob, n/v. Says she is not having pain currently in her leg OBJECTIVE: Last Vital Signs Temp Pulse Resp BP Pulse Ox 37.2 C 72 20 130/60 96 04/07/19 06:00 04/07/19 11:37 04/07/19 06:00 04/07/19 06:00 04/07/19 00:38 Gen: nad Pulm: ctab w/o w/r/r CV: rrr w/o m/r/g Abd: +bs, s/nt/nd Ext: leg wrapped CBC, BMP 04/07/19 06:45 04/07/19 06:45 ASSESSMENT AND PLAN: Problem List - Problems (1) Wound infection Assessment/Plan: -appreciate surgical assistance -continue vancomycin and zosyn Code(s): T14.8XXA - OTHER INJURY OF UNSPECIFIED BODY REGION, INITIAL ENCOUNTER; L08.9 - LOCAL INFECTION OF THE SKIN AND SUBCUTANEOUS TISSUE, UNSP (2) Cellulitis Assessment/Plan: -stable -continue as above Code(s): L03.90 - CELLULITIS, UNSPECIFIED Qualifiers: Site of cellulitis: extremity Site of cellulitis of extremity: lower extremity Laterality: left Qualified Code(s): L03.116 - Cellulitis of left lower limb (3) Chronic venous stasis Assessment/Plan: -noted Code(s): I87.8 - OTHER SPECIFIED DISORDERS OF VEINS (4) Diabetes Assessment/Plan: -diabetic diet -FSBS and SSI Code(s): E11.9 - TYPE 2 DIABETES MELLITUS WITHOUT COMPLICATIONS Qualifiers: Diabetes mellitus type: type 2 Diabetes mellitus intermodal customer service insulin use: without intermodal customer service use Diabetes mellitus complication status: with hyperglycemia Qualified Code(s): E11.65 - Type 2 diabetes mellitus with hyperglycemia (5) HTN (hypertension) Assessment/Plan: -continue cozaar -continue lasix Code(s): I10 - ESSENTIAL (PRIMARY) HYPERTENSION Qualifiers: Hypertension type: essential hypertension Qualified Code(s): I10 - Essential (primary) hypertension (6) Hypothyroidism Assessment/Plan: -continue synthroid Code(s): E03.9 - HYPOTHYROIDISM, UNSPECIFIED (7) Morbid obesity Assessment/Plan: -noted Code(s): E66.01 - MORBID (SEVERE) OBESITY DUE TO EXCESS CALORIES (8) UTI (lower urinary tract infection) Assessment/Plan: -on vancomycin and zosyn Code(s): N39.0 - URINARY TRACT INFECTION, SITE NOT SPECIFIED
[2019-04-07] MEDS: VANCOMYCIN HCL 1,250 MG in DEXTROSE 5%-WATER - 250 ML IVPB SCH (17:58)
--- NOTE | 2019-04-07 18:15 | CONS ---
INFECTIOUS DISEASE CONSULTATION DATE OF CONSULTATION: DATE OF DICTATION: 04/07/2019 REQUESTING PHYSICIAN: The hospitalist service. This is an 84-year-old woman with morbid obesity. She presented yesterday for routine foot care. She was noted in the wound care center to have a wound on her left lateral leg, that was 2 x 2 x 5 cm with 4 cm of undermining, draining bloody drainage. She had a large amount of erythema around the site, and she was transferred to the emergency room. She denies any fevers or chills. The leg was noted to be red, painful, hot, and swollen. This morning, she was seen by Surgery. She was noted to have a hematoma that was drained and packed. She was noted to have surrounding erythema. She otherwise has no fevers or chills. She notes she had the injury when she banged her leg against a folded hospital bed that was waiting to be picked up at her house. She denies any nausea, vomiting. She denies any dysuria or flank pain. PAST MEDICAL HISTORY: Notable for history of atrial fibrillation, asthma, COPD, CHF, diabetes, hiatal hernia, recurrent UTI, hypertension, hypercholesterolemia, morbid obesity, and hypothyroidism. SURGICAL HISTORY: She has had an appendectomy, cholecystectomy, cardioversion x2, hernia repair x2. MEDICATIONS AT HOME: Include warfarin, Spiriva, potassium, nystatin powder, losartan, levothyroxine, gabapentin, insulin, furosemide, folic acid, digoxin, allopurinol, albuterol nebulizer. SOCIAL HISTORY: She resides in the community, and she lives alone. She ambulates with a walker. She stopped smoking in 2007. There is no history of any substance use. She has had no recent travel. REVIEW OF SYSTEMS: She denies dysuria. She denies fevers or chills. She notes this leg wound. PHYSICAL EXAMINATION: General: She is awake and alert, resting comfortably. Vital Signs: Temperature is 99. She has had no fever since admission. Blood pressure is 130/60, pulse of 92, respiratory rate is 20. She weighs 120 kg. HEENT: She is normocephalic. Her eyes are anicteric. Neck: Supple. Lungs: Clear to auscultation. Heart: Regular rate and rhythm. Abdomen: Large. She has a large pannus. She has no skin breakdown. Extremities: Notable for erythema of the left lower extremity where she has packing with some surrounding erythema. The leg is warm to touch. LABORATORY DATA: Her white count is 7.6, hemoglobin 10.9, platelets are 267. Her INR is 2.5. Her BUN is 18 and creatinine 0.7. LFTs are normal. She had a prior ankle culture that grew MRSA in the past, and she has had E. coli ESBL in her urine. Currently, culture of the left leg was sent; that has moderate gram-positive cocci, moderate gram-negative bacilli, with some rare polys. In summary, this is an 84-year-old woman with: 1. A wound infection at the site of left lower extremity hematoma, which has been cleaned by Surgery and packed. I would suggest we continue vancomycin given the prior history of methicillin-resistant Staphylococcus aureus and would give her vancomycin and Zosyn at this time with close followup of the wound. 2. Morbid obesity. 3. 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 Would maintain her in contact isolation. DESIREE MICHEL M.D. [id number]
[2019-04-07] MEDS ORDERED: PIPERACILLIN/TAZOBACTAM 4.5 GM VIAL IVPB ONE ×2 (18:18→20:50)
[2019-04-07] MEDS ORDERED: DEXTROSE 5%-WATER 100 ML IVPB ONE ×2 (18:19→20:50)
[2019-04-07] MEDS: PIPERACILLIN/TAZOB 4.5 GM 4.5 GM in DEXTROSE 5%-WATER 100 ML IVPB SCH (18:28)
--- NOTE | 2019-04-07 20:17 | PN ---
Physical Exam: SUBJECTIVE: Patient seen and examined. No chest pain, no SOB. No c/o of pain in legs. Both legs wrapped in dressing. OBJECTIVE: Vital Signs Period Temp Pulse Resp BP Sys/Luke Pulse Ox Last 24 Hr 98.0 F-99 F 72-101 20-20 130-151/60-78 96-96 Vital Signs Temp 100.7 F H 04/07/19 21:04 Pulse 106 H 04/07/19 21:04 Resp 20 04/07/19 21:04 BP 116/55 L 04/07/19 21:04 Pulse Ox 96 04/07/19 09:00 Intake & Output 04/06/19 04/07/19 04/07/19 23:59 11:59 23:59 Intake Total 411 073 6514 Balance 276 067 4909 Weight 122.612 kg 120.973 kg Intake: IVPB 350 100 450 Oral 240 850 Other: Voiding Method Toilet Toilet # Unmeasured Voids Void 1 Bowel Movement No No Yes # Bowel Movements 1 Height 1.65 m Body Mass Index (BMI) 45.0 Weight Measurement Method Built in [facility] Built in [facility] Weight Measurement Method Est/Stated by Patient GENERAL: The patient is awake, alert, and fully oriented, in no acute distress. LUNGS: Breath sounds equal, clear to auscultation bilaterally, no wheezes, no crackles HEART: Regular rate and rhythm, S1, S2 ABDOMEN: Soft, nontender, obese, with abdominal hernia, thickened abdominal skin ,normoactive bs EXTREMITIES: B/L LE surgical dressing in place NEUROLOGICAL: No facial droop, no lateralizing signs PSYCH: Normal mood, normal affect. CBC, BMP 04/07/19 06:45 04/07/19 06:45 Laboratory Results - last 24 hr 04/07/19 04/07/19 04/07/19 06:33 06:45 06:45 WBC 7.6 RBC 3.98 Hgb 10.9 Hct 33.4 MCV 84.0 MCH 27.3 MCHC 32.5 RDW 19.8 H Plt Count 267 MPV 7.8 Absolute Neuts (auto) 5.5 Neutrophils % 73.0 Lymphocytes % 14.5 D Monocytes % 7.5 Eosinophils % 4.2 Basophils % 0.8 Nucleated RBC % 0 PT with INR 30.60 H INR 2.57 H PTT (Actin FS) 38.6 H Sodium Potassium Chloride Carbon Dioxide Anion Gap BUN Creatinine Est GFR (CKD-EPI)AfAm Est GFR (CKD-EPI)NonAf POC Glucometer 154 Random Glucose Calcium Phosphorus Magnesium Total Bilirubin AST ALT Alkaline Phosphatase Total Protein Albumin Digoxin 04/07/19 06:45 WBC RBC Hgb Hct MCV MCH MCHC RDW Plt Count MPV Absolute Neuts (auto) Neutrophils % Lymphocytes % Monocytes % Eosinophils % Basophils % Nucleated RBC % PT with INR INR PTT (Actin FS) Sodium 144 Potassium 3.9 Chloride 108 H Carbon Dioxide 29 Anion Gap 7 L BUN 18.1 H Creatinine 0.7 Est GFR (CKD-EPI)AfAm 92.86 Est GFR (CKD-EPI)NonAf 80.12 POC Glucometer Random Glucose 139 H Calcium 8.5 Phosphorus 2.8 Magnesium 2.0 Total Bilirubin 0.8 AST 13 L ALT 10 L Alkaline Phosphatase 89 Total Protein 5.6 L Albumin 2.6 L Digoxin 0.82 Active Medications Generic Name Dose Route Start Last Admin Trade Name Freq PRN Reason Stop Dose Admin Acetaminophen 325 mg 04/06/19 19:27 04/07/19 12:38 Tylenol - PO 325 mg Q6H PRN Administration PAIN SCALE 1-5 Albuterol Sulfate 1 amp 04/06/19 20:00 04/07/19 16:12 Ventolin 0.083% Nebulizer Soln - NEB 1 amp RQID LYUDMILA Administration Allopurinol 100 mg 04/07/19 10:00 04/07/19 10:31 Zyloprim - PO 100 mg DAILY LYUDMILA Administration Digoxin 0.125 mg 04/06/19 19:15 04/07/19 11:37 Lanoxin - PO 0.125 mg DAILY LYUDMILA Administration Folic Acid 1 mg 04/06/19 19:15 04/07/19 10:32 Folic Acid - PO 1 mg DAILY LYUDMILA Administration Furosemide 40 mg 04/07/19 06:00 04/07/19 13:30 Lasix - PO 40 mg BID@0600,1400 LYUDMILA Administration Gabapentin 100 mg 04/06/19 22:00 04/07/19 13:31 Neurontin - PO 100 mg TID LYUDMILA Administration Vancomycin HCl 1,250 mg/ 250 mls @ 166.667 mls/hr 04/07/19 16:00 04/07/19 17: 58 Dextrose IVPB 166.667 mls/hr Q12H LYUDMILA Administration Protocol Piperacillin Sod/Tazobactam 100 mls @ 200 mls/hr 04/07/19 18:00 04/07/19 18: 28 Sod 4.5 gm/ Dextrose IVPB 200 mls/hr Q8H-IV LYUDMILA Administration Protocol Insulin Aspart 0 vial 04/06/19 22:00 Novolog Vial Sliding Scale - SQ ACHS LYUDMILA Protocol Levothyroxine Sodium 50 mcg 04/07/19 07:00 04/07/19 06:42 Synthroid - PO Not Given AM LYUDMILA Loratadine 10 mg 04/07/19 10:00 04/07/19 10:31 Claritin - PO 10 mg DAILY LYUDMILA Administration Losartan Potassium 25 mg 04/06/19 19:30 04/07/19 10:31 Cozaar - PO 25 mg DAILY LYUDMILA Administration Multi-Ingredient Lotion 1 applic 04/07/19 10:00 04/07/19 11:52 Eucerin (Small Jar) - TP 1 applic DAILY LYUDMILA Administration Non-Formulary Medication 30 meq 04/07/19 10:00 Potassium Chloride [Potassium Chloride] PO DAILY LYUDMILA Nystatin 1 applic 04/07/19 10:00 04/07/19 11:53 Nystop Powder - TP 1 applic DAILY LYUDMILA Administration Tiotropium [place] 2 puff 04/07/19 10:00 04/07/19 11:39 Spiriva Respimat IH 2 puff DAILY LYUDMILA Administration (Left Tibial/Fibula Arthritic changes. Loss of bone density. 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 #worsening LLE wound and cellulitis Noted hematoma with cellulits s/p trauma and chronic venous stasis Pt on coumadin with recurrent multidrug resistant infections in past Pt currently bleeding from LLE in setting of therapeutic INR, compression dressing recommended Per ID, Cont vanc/zosyn, pending cxs ID- Dr Rivero Duplex LLE- negative DVT except post tibial not well visualized Local wound dressing per podiatry-Dr Ayoub Vascular surgery eval- Dr Dugan- Per surgery-Local wound care completed today for both lower extremities. -No surgical debridement needed at this time. -Monitor wound for improvement with local daily wound care and IV abx. -If wound doesn't improve than she may need a surgical debridment. 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 Med surg Visit type - Emergency Visit Emergency Visit: Yes ED Registration Date: 04/06/19 Care time: The patient presented to the Emergency Department on the above date and was hospitalized for further evaluation of their emergent condition. - New Patient This patient is new to me today: No - Critical Care Critical Care patient: No - Discharge Referral Referred to [facility] Med P.C.: No ATTENDING PHYSICIAN STATEMENT I saw and evaluated the patient. I reviewed the resident's note and discussed the case with the resident. I agree with the resident's findings and plan as documented. SUBJECTIVE: OBJECTIVE: ASSESSMENT AND PLAN:
[2019-04-07] MEDS: INSULIN SLIDING SCALE (NOVOLOG) 1 VIAL SQ SCH ×2 (22:42→22:47)
[2019-04-07] MEDS: WARFARIN NA 2 MG TABLET (UD) PO SCH (23:07)
[2019-04-08] MEDS: PIPERACILLIN/TAZOB 4.5 GM 4.5 GM in DEXTROSE 5%-WATER 100 ML IVPB SCH ×3 (01:14→18:03)
[2019-04-08] MEDS: VANCOMYCIN HCL 1,250 MG in DEXTROSE 5%-WATER - 250 ML IVPB SCH ×2 (03:21→15:39)
[2019-04-08] MEDS: INSULIN SLIDING SCALE (NOVOLOG) 1 VIAL SQ SCH ×5 (06:47→21:48)
[2019-04-08] MEDS: FUROSEMIDE 40 MG TABLET (FP) PO SCH ×2 (06:48→15:40)
[2019-04-08] MEDS: GABAPENTIN 100 MG CAPSULE (FP) PO SCH ×3 (06:48→21:47)
[2019-04-08] MEDS: LEVOTHYROXINE NA 50 MCG TABLET (FP) PO SCH (07:06)
[2019-04-08] MEDS: PIPERACILLIN/TAZOB 3.375 GM 3.375 GM in DEXTROSE 5%-WATER - 50 ML IVPB SCH (07:36)
[2019-04-08 07:38] LABS: BASO % 0.9 % (0-2.0); EOS % 6.5 % (0-4.5); HEMATOCRIT 31.9 % (32.4-45.2); HEMOGLOBIN 10.5 GM/dL (10.7-15.3); LYMPH % 11.2 % (8-40); MCH 27.7 pg (25.7-33.7); MCHC 33.1 g/dl (32.0-36.0); MEAN CELL VOLUME 83.8 fl (80-96); MEAN PLT VOLUME 7.7 fl (7.5-11.1); MONO % 7.3 % (3.8-10.2); NEUT % 74.1 % (42.8-82.8); PLATELET COUNT 248 K/MM3 (134-434); RBC 3.81 M/mm3 (3.60-5.2); RDW 19.9 % (11.6-15.6); WHITE BLOOD COUNT 9.1 K/mm3 (4.0-10.0)
[2019-04-08 08:13] LABS: BLOOD UREA NITROGEN 17.1 mg/dL (7-18); CREATININE 0.8 mg/dL (0.55-1.3)
[2019-04-08 08:14] LABS: ALBUMIN 2.4 g/dl (3.4-5.0); BILIRUBIN,TOTAL 1.1 mg/dL (0.2-1); CALCIUM 8.1 mg/dL (8.5-10.1); MAGNESIUM 1.9 mg/dL (1.8-2.4); PHOSPHOROUS 2.5 mg/dL (2.5-4.9); POTASSIUM 3.8 mmol/L (3.5-5.1); TOT PROT 5.8 g/dl (6.4-8.2)
--- NOTE | 2019-04-08 08:35 | PN ---
Progress Note (short form) - Note Progress Note: Hospitalist to document today. Still warm swollen skin surrounding deep left calf wound. Still has a lot of joint and leg pain which is managed with 1 or 2 percocet at home; tylenol alone is not helping her acute pain. She will be more mobile is pain is decreased.
--- NOTE | 2019-04-08 09:16 | PN ---
Physical Exam: SUBJECTIVE: Patient seen and examined. Resting comfortably in bed. Had a fever overnight. No chest pain, no SOB, no leg pain. Dressing done by surgical team yesterday OBJECTIVE: Vital Signs Period Temp Pulse Resp BP Sys/Luke Pulse Ox Last 24 Hr 98.3 F-100.7 F 72-106 20-20 114-151/51-84 96 Vital Signs Temp 99.1 F 04/08/19 06:00 Pulse 66 04/08/19 11:22 Resp 20 04/08/19 06:00 BP 114/51 L 04/08/19 06:00 Pulse Ox 96 04/07/19 21:00 Intake & Output 04/07/19 04/08/19 04/08/19 23:59 11:59 23:59 Intake Total 1700 350 Balance 1700 350 Weight 121.744 kg Intake: IVPB 450 350 Oral 1250 Other: Voiding Method Toilet # Unmeasured Voids Void 2 2 Bowel Movement Yes # Bowel Movements 1 Weight Measurement Method Built in [facility] GENERAL: The patient is drowsy but arousable, in no acute distress. LUNGS: Breath sounds equal, clear to auscultation bilaterally, no wheezes, no crackles HEART: Regular rate and rhythm, S1, S2 ABDOMEN: Soft, nontender, obese, with abdominal hernia and hyperkeratosis more to R, normoactive bowel sounds EXTREMITIES: Surgical dressing over b/l lEs. RLE with packing with dried blood, no fresh bleed. LLE dry surgical dressing NEUROLOGICAL: No lateralizing signs, able to move all extremities CBC, BMP 04/08/19 06:00 04/08/19 06:00 Laboratory Results - last 24 hr 04/07/19 04/07/19 04/07/19 06:45 06:45 06:45 WBC 7.6 RBC 3.98 Hgb 10.9 Hct 33.4 MCV 84.0 MCH 27.3 MCHC 32.5 RDW 19.8 H Plt Count 267 MPV 7.8 Absolute Neuts (auto) 5.5 Neutrophils % 73.0 Lymphocytes % 14.5 D Monocytes % 7.5 Eosinophils % 4.2 Basophils % 0.8 Nucleated RBC % 0 PT with INR 30.60 H INR 2.57 H PTT (Actin FS) 38.6 H Sodium 144 Potassium 3.9 Chloride 108 H Carbon Dioxide 29 Anion Gap 7 L BUN 18.1 H Creatinine 0.7 Est GFR (CKD-EPI)AfAm 92.86 Est GFR (CKD-EPI)NonAf 80.12 POC Glucometer Random Glucose 139 H Calcium 8.5 Phosphorus 2.8 Magnesium 2.0 Total Bilirubin 0.8 AST 13 L ALT 10 L Alkaline Phosphatase 89 Total Protein 5.6 L Albumin 2.6 L Digoxin 0.82 04/07/19 04/08/19 04/08/19 21:07 06:00 06:00 WBC 9.1 RBC 3.81 Hgb 10.5 L Hct 31.9 L MCV 83.8 MCH 27.7 MCHC 33.1 RDW 19.9 H Plt Count 248 MPV 7.7 Absolute Neuts (auto) 6.8 Neutrophils % 74.1 Lymphocytes % 11.2 D Monocytes % 7.3 Eosinophils % 6.5 H Basophils % 0.9 Nucleated RBC % 0 PT with INR INR PTT (Actin FS) Sodium 142 Potassium 3.8 Chloride 108 H Carbon Dioxide 28 Anion Gap 6 L BUN 17.1 Creatinine 0.8 Est GFR (CKD-EPI)AfAm 79.02 Est GFR (CKD-EPI)NonAf 68.18 POC Glucometer 229 Random Glucose 121 H Calcium 8.1 L Phosphorus 2.5 Magnesium 1.9 Total Bilirubin 1.1 H AST 14 L ALT 9 L Alkaline Phosphatase 93 Total Protein 5.8 L Albumin 2.4 L Digoxin 04/08/19 06:46 WBC RBC Hgb Hct MCV MCH MCHC RDW Plt Count MPV Absolute Neuts (auto) Neutrophils % Lymphocytes % Monocytes % Eosinophils % Basophils % Nucleated RBC % PT with INR INR PTT (Actin FS) Sodium Potassium Chloride Carbon Dioxide Anion Gap BUN Creatinine Est GFR (CKD-EPI)AfAm Est GFR (CKD-EPI)NonAf POC Glucometer 134 Random Glucose Calcium Phosphorus Magnesium Total Bilirubin AST ALT Alkaline Phosphatase Total Protein Albumin Digoxin Active Medications Generic Name Dose Route Start Last Admin Trade Name Freq PRN Reason Stop Dose Admin Acetaminophen 325 mg 04/06/19 19:27 04/07/19 21:09 Tylenol - PO 325 mg Q6H PRN Administration PAIN SCALE 1-5 Albuterol Sulfate 1 amp 04/06/19 20:00 04/07/19 21:40 Ventolin 0.083% Nebulizer Soln - NEB Not Given RQID LYUDMILA Allopurinol 100 mg 04/07/19 10:00 04/07/19 10:31 Zyloprim - PO 100 mg DAILY LYUDMILA Administration Digoxin 0.125 mg 04/06/19 19:15 04/07/19 11:37 Lanoxin - PO 0.125 mg DAILY LYUDMILA Administration Folic Acid 1 mg 04/06/19 19:15 04/07/19 10:32 Folic Acid - PO 1 mg DAILY LYUDMILA Administration Furosemide 40 mg 04/07/19 06:00 04/08/19 06:48 Lasix - PO 40 mg BID@0600,1400 LYUDMILA Administration Gabapentin 100 mg 04/06/19 22:00 04/08/19 06:48 Neurontin - PO 100 mg TID LYUDMILA Administration Vancomycin HCl 1,250 mg/ 250 mls @ 166.667 mls/hr 04/07/19 16:00 04/08/19 03: 21 Dextrose IVPB 166.667 mls/hr Q12H LYUDMILA Administration Protocol Piperacillin Sod/Tazobactam 100 mls @ 200 mls/hr 04/07/19 18:00 04/08/19 01: 14 Sod 4.5 gm/ Dextrose IVPB 200 mls/hr Q8H-IV LYUDMILA Administration Protocol Insulin Aspart 1 vial 04/07/19 23:00 04/08/19 06:47 Novolog Vial Sliding Scale - SQ Not Given ACHS LYUDMILA Protocol Levothyroxine Sodium 50 mcg 04/07/19 07:00 04/08/19 07:06 Synthroid - PO 50 mcg AM LYUDMILA Administration Loratadine 10 mg 04/07/19 10:00 04/07/19 10:31 Claritin - PO 10 mg DAILY LYUDMILA Administration Losartan Potassium 25 mg 04/06/19 19:30 04/07/19 10:31 Cozaar - PO 25 mg DAILY LYUDMILA Administration Multi-Ingredient Lotion 1 applic 04/07/19 10:00 04/07/19 11:52 Eucerin (Small Jar) - TP 1 applic DAILY LYUDMILA Administration Non-Formulary Medication 30 meq 04/07/19 10:00 Potassium Chloride [Potassium Chloride] PO DAILY LYUDMILA Nystatin 1 applic 04/07/19 10:00 04/07/19 11:53 Nystop Powder - TP 1 applic DAILY LYUDMILA Administration Oxycodone HCl 5 mg 04/08/19 08:37 Roxicodone - PO Q12H PRN PAIN LEVEL 6-10 Tiotropium [place] 2 puff 04/07/19 10:00 04/07/19 11:39 Spiriva Respimat IH 2 puff DAILY [facility] Administration Warfarin Sodium 4 mg 04/07/19 23:00 04/07/19 23:07 Coumadin - PO 4 mg [id number]@1800 LYUDMILA Administration Current Medications Acetaminophen (Tylenol -) 325 mg PO Q6H PRN PRN Reason: PAIN SCALE 1-5 Last Admin: 04/07/19 21:09 Dose: 325 mg Albuterol Sulfate (Ventolin 0.083% Nebulizer Soln -) 1 amp NEB RQID [facility] Last Admin: 04/07/19 21:40 Dose: Not Given Allopurinol (Zyloprim -) 100 mg PO DAILY [facility] Last Admin: 04/08/19 11:21 Dose: 100 mg Digoxin (Lanoxin -) 0.125 mg PO DAILY [facility] Last Admin: 04/08/19 11:22 Dose: 0.125 mg Emollient Ointment (Aquaphor -) 1 applic TP DAILY [facility] Folic Acid (Folic Acid -) 1 mg PO DAILY [facility] Last Admin: 04/08/19 11:22 Dose: 1 mg Furosemide (Lasix -) 40 mg PO BID@0600,1400 [facility] Last Admin: 04/08/19 06:48 Dose: 40 mg Gabapentin (Neurontin -) 100 mg PO TID [facility] Last Admin: 04/08/19 06:48 Dose: 100 mg Vancomycin HCl 1,250 mg/ (Dextrose) 250 mls @ 166.667 mls/hr IVPB Q12H [facility]; Protocol Last Admin: 04/08/19 03:21 Dose: 166.667 mls/hr Piperacillin Sod/Tazobactam (Sod 4.5 gm/ Dextrose) 100 mls @ 200 mls/hr IVPB Q8H-IV [facility]; Protocol Last Admin: 04/08/19 11:22 Dose: 200 mls/hr Insulin Aspart (Novolog Vial Sliding Scale -) 1 vial SQ ACHS [facility]; Protocol Last Admin: 04/08/19 13:09 Dose: 2 units Levothyroxine Sodium (Synthroid -) 50 mcg PO AM [facility] Last Admin: 04/08/19 07:06 Dose: 50 mcg Loratadine (Claritin -) 10 mg PO DAILY [facility] Last Admin: 04/08/19 11:22 Dose: 10 mg Losartan Potassium (Cozaar -) 25 mg PO DAILY [facility] Last Admin: 04/08/19 11:22 Dose: 25 mg Nystatin (Nystop Powder -) 1 applic TP DAILY [facility] Last Admin: 04/08/19 11:23 Dose: 1 applic Oxycodone HCl (Roxicodone -) 5 mg PO Q12H PRN PRN Reason: PAIN LEVEL 6-10 Last Admin: 04/08/19 11:20 Dose: 5 mg Potassium Chloride (K-Dur -) 30 meq PO DAILY [facility] Last Admin: 04/08/19 13:08 Dose: 30 meq Tiotropium [place] (Spiriva Respimat) 2 puff IH DAILY [facility] Last Admin: 04/08/19 11:25 Dose: 2 puff Warfarin Sodium (Coumadin -) 4 mg PO [id number]@1800 [facility] Last Admin: 04/07/19 23:07 Dose: 4 mg Ambulatory Orders Allopurinol [Zyloprim -] 100 mg PO DAILY 12/10/18 Digoxin [Lanoxin -] 0.125 mg PO DAILY 12/10/18 Folic Acid 1 mg PO DAILY 12/10/18 Furosemide 40 mg PO BID 12/10/18 Gabapentin 100 mg PO TID 12/10/18 Levothyroxine [Synthroid -] 50 mcg PO DAILY 12/10/18 Losartan Potassium 25 mg PO DAILY 12/10/18 Warfarin Sodium 4 mg PO ASDIR MDD 2mg/4 mg everyother day 12/10/18 Albuterol 0.083% Nebulizer Bonnie [Ventolin 0.083% Nebulizer Soln -] 1 amp NEB QID 30 Days #1 amp 12/13/18 Insulin Sliding Scale [Novolog Vial Sliding Scale -] 1 vial SQ ACHS #1 units Tiotropium [place] [Spiriva Respimat] 2 puff IH DAILY #30 inhaler 12/13/18 Acetaminophen [Tylenol .Regular Strength -] 325 mg PO PRN PRN 04/06/19 Loratadine 10 mg PO DAILY 04/06/19 Mineral Oil/Hydrophil Petrolat [Dermaphor Ointment] 1 applic TP DAILY 04/06/19 Nystatin Powder [Nystop Powder -] 1 applic TP DAILY 04/06/19 Potassium Chloride 30 meq PO DAILY 04/06/19 Microbiology 04/06/19 16:19 Leg - Left Lower Gram Stain - Final 04/06/19 16:19 Leg - Left Lower Wound Culture - Preliminary Lactose Fermenting Neg Bacilli Lactose Fermenting Neg Bacilli#2 Non Lactose Fermenting Gnb Pending Organism Pending Organism#2 04/06/19 16:19 Urine - Urine Clean Catch Urine Culture - Preliminary Lactose Fermenting Neg Bacilli Group D Strep Or Entero Coccus 04/06/19 15:45 Blood - Peripheral Venous Blood Culture - Preliminary NO GROWTH OBTAINED AFTER 24 HOURS, INCUBATION TO CONTINUE FOR 4 DAYS. 04/06/19 15:15 Blood - Peripheral Venous Blood Culture - Preliminary NO GROWTH OBTAINED AFTER 24 HOURS, INCUBATION TO CONTINUE FOR 4 DAYS. 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 -Monitor wound for improvement with local daily wound care and IV abx. -If wound doesn't improve than she may need a surgical debridment. 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 Med surg Visit type - Emergency Visit Emergency Visit: Yes ED Registration Date: 04/06/19 Care time: The patient presented to the Emergency Department on the above date and was hospitalized for further evaluation of their emergent condition. - New Patient This patient is new to me today: No - Critical Care Critical Care patient: No - Discharge Referral Referred to [facility] Med P.C.: No ATTENDING PHYSICIAN STATEMENT I saw and evaluated the patient. I reviewed the resident's note and discussed the case with the resident. I agree with the resident's findings and plan as documented. SUBJECTIVE: OBJECTIVE: ASSESSMENT AND PLAN:
[2019-04-08] MEDS ORDERED: DEXTROSE 5%-WATER 100 ML IVPB ONE ×2 (11:11→17:59)
[2019-04-08] MEDS ORDERED: PT OWN MED DRAWER 7, Y5N ONE ×2 (11:11→15:30)
[2019-04-08] MEDS ORDERED: PIPERACILLIN/TAZOBACTAM 4.5 GM VIAL IVPB ONE ×2 (11:11→17:59)
[2019-04-08] MEDS: MINERAL OIL/PETROLAT/WATER TOPICAL CREAM 113 GM JAR TP SCH (11:17)
[2019-04-08] MEDS: oxyCODONE HCL 5 MG TABLET PO PRN (11:20)
[2019-04-08] MEDS: ALLOPURINOL 100 MG TABLET (FP) PO SCH (11:21)
[2019-04-08] MEDS: LORATADINE 10 MG TABLET PO SCH (11:22)
[2019-04-08] MEDS: FOLIC ACID 1 MG TABLET (FP) PO SCH (11:22)
[2019-04-08] MEDS: LOSARTAN POTASSIUM 25 MG TABLET PO SCH (11:22)
[2019-04-08] MEDS: POTASSIUM CHLORIDE TABS 10 MEQ TABLET.ER (FP) PO SCH ×2 (11:22→13:08)
[2019-04-08] MEDS: DIGOXIN 0.125 MG TABLET (FP) PO SCH (11:22)
[2019-04-08] MEDS: NYSTATIN POWDER 100,000 UNITS/GM - 15 GM TOPICAL POWDER TP SCH (11:23)
[2019-04-08] MEDS: TIOTROPIUM BROMIDE 2.5 MCG (SPIRIVA) RESPIMAT INHALER IH SCH (11:25)
--- NOTE | 2019-04-08 12:09 | PN ---
Progress Note (short form) - Note Progress Note: Pt without complaints today. Vital Signs Period Temp Pulse Resp BP Sys/Luke Pulse Ox Last 24 Hr 98.3 F-100.7 F 66-106 20-20 114-151/51-84 96 GEn: A&0x3, NAD LLE: wound irrigated with 100 NS and repacked with wet to dry kerlix dressing. Mild decreased erythema, no drainage noted. CBC, BMP 04/08/19 06:00 04/08/19 06:00 Microbiology 04/06/19 16:19 Leg - Left Lower Gram Stain - Final 04/06/19 16:19 Leg - Left Lower Wound Culture - Preliminary Lactose Fermenting Neg Bacilli Lactose Fermenting Neg Bacilli#2 Non Lactose Fermenting Gnb Pending Organism Pending Organism#2 Laboratory Tests 04/06/19 04/07/19 04/08/19 15:15 06:45 06:00 Random Glucose 127 H 139 H 121 H A/p: 84 yo female with LLE wound/hematoma Local wound care with NS/kerlix packing daily Wound care to RLE with aquaphor/xeroform/kerlix Rajan wrap IV abx as per ID, awaiting final cultures D/w Dr. Dugan Problem List - Problems (1) Wound infection Code(s): T14.8XXA - OTHER INJURY OF UNSPECIFIED BODY REGION, INITIAL ENCOUNTER; L08.9 - LOCAL INFECTION OF THE SKIN AND SUBCUTANEOUS TISSUE, UNSP
--- NOTE | 2019-04-08 13:58 | PN ---
Progress Note (short form) - Note Progress Note: no complaints Vital Signs Period Temp Pulse Resp BP Sys/Luke Pulse Ox Last 24 Hr 98.3 F-100.7 F 66-106 20-20 114-151/51-84 96 cor-rrr lungs clear abd soft,nt LLE no drainage from hematoma site, less erythema, bilateral venous stasis CBC, BMP 04/08/19 06:00 04/08/19 06:00 Microbiology 04/06/19 16:19 Leg - Left Lower Gram Stain - Final 04/06/19 16:19 Leg - Left Lower Wound Culture - Preliminary Lactose Fermenting Neg Bacilli Lactose Fermenting Neg Bacilli#2 Non Lactose Fermenting Gnb Pending Organism Pending Organism#2 04/06/19 16:19 Urine - Urine Clean Catch Urine Culture - Preliminary Lactose Fermenting Neg Bacilli Group D Strep Or Entero Coccus 04/06/19 15:45 Blood - Peripheral Venous Blood Culture - Preliminary NO GROWTH OBTAINED AFTER 24 HOURS, INCUBATION TO CONTINUE FOR 4 DAYS. 04/06/19 15:15 Blood - Peripheral Venous Blood Culture - Preliminary NO GROWTH OBTAINED AFTER 24 HOURS, INCUBATION TO CONTINUE FOR 4 DAYS. a/p celllitis secondary to hematoma-improved asymptomatic bacteriuria morbid obesity history of resistant organisms- mrsa/ecoli esbl-continue contact isolation continue vancomycin and zosyn f/u cultures in am Problem List - Problems (1) Wound infection Code(s): T14.8XXA - OTHER INJURY OF UNSPECIFIED BODY REGION, INITIAL ENCOUNTER; L08.9 - LOCAL INFECTION OF THE SKIN AND SUBCUTANEOUS TISSUE, UNSP (2) Asymptomatic bacteriuria Code(s): R82.71 - BACTERIURIA (3) Morbid obesity Code(s): E66.01 - MORBID (SEVERE) OBESITY DUE TO EXCESS CALORIES (4) 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
--- NOTE | 2019-04-08 17:49 | PN ---
Teaching Attending Note Name of Resident: Kaelyn Lucas ATTENDING PHYSICIAN STATEMENT I saw and evaluated the patient. I reviewed the resident's note and discussed the case with the resident. I agree with the resident's findings and plan as documented. SUBJECTIVE: Ms Hanley was having pains earlier, controlled with oxycodone. Still with fevers. Denies cp, sob, n/v. OBJECTIVE: Last Vital Signs Temp Pulse Resp BP Pulse Ox 37.3 C 66 22 H 116/64 96 04/08/19 16:18 04/08/19 11:22 04/08/19 16:18 04/08/19 16:18 04/07/19 21:00 Gen: nad Pulm: ctab w/o w/r/r CV: rrr w/o m/r/g Abd: +bs, s/nt/nd Ext: wrapped CBC, BMP 04/08/19 06:00 04/08/19 06:00 ASSESSMENT AND PLAN: (1) Wound infection Assessment/Plan: -still febrile -continue wound care -continue vancomycin and zosyn Code(s): T14.8XXA - OTHER INJURY OF UNSPECIFIED BODY REGION, INITIAL ENCOUNTER; L08.9 - LOCAL INFECTION OF THE SKIN AND SUBCUTANEOUS TISSUE, UNSP (2) Cellulitis Assessment/Plan: -appreciate ID assistance -continue antibiotics Code(s): L03.90 - CELLULITIS, UNSPECIFIED Qualifiers: Site of cellulitis: extremity Site of cellulitis of extremity: lower extremity Laterality: left Qualified Code(s): L03.116 - Cellulitis of left lower limb (3) Chronic venous stasis Assessment/Plan: -noted Code(s): I87.8 - OTHER SPECIFIED DISORDERS OF VEINS (4) Diabetes Assessment/Plan: -diabetic diet -FSBS and SSI Code(s): E11.9 - TYPE 2 DIABETES MELLITUS WITHOUT COMPLICATIONS Qualifiers: Diabetes mellitus type: type 2 Diabetes mellitus rn long term care insulin use: without long-term use Diabetes mellitus complication status: with hyperglycemia Qualified Code(s): E11.65 - Type 2 diabetes mellitus with hyperglycemia (5) HTN (hypertension) Assessment/Plan: -continue cozaar -continue lasix -well controlled Code(s): I10 - ESSENTIAL (PRIMARY) HYPERTENSION Qualifiers: Hypertension type: essential hypertension Qualified Code(s): I10 - Essential (primary) hypertension (6) Hypothyroidism Assessment/Plan: -continue synthroid Code(s): E03.9 - HYPOTHYROIDISM, UNSPECIFIED (7) Morbid obesity Assessment/Plan: -noted Code(s): E66.01 - MORBID (SEVERE) OBESITY DUE TO EXCESS CALORIES (8) UTI (lower urinary tract infection) Assessment/Plan: -on vancomycin and zosyn -growing gram negative rods and enterococcus Code(s): N39.0 - URINARY TRACT INFECTION, SITE NOT SPECIFIED Problem List - Problems (1) Wound infection Code(s): T14.8XXA - OTHER INJURY OF UNSPECIFIED BODY REGION, INITIAL ENCOUNTER; L08.9 - LOCAL INFECTION OF THE SKIN AND SUBCUTANEOUS TISSUE, UNSP (2) Cellulitis Code(s): L03.90 - CELLULITIS, UNSPECIFIED Qualifiers: Site of cellulitis: extremity Site of cellulitis of extremity: lower extremity Laterality: left Qualified Code(s): L03.116 - Cellulitis of left lower limb (3) Chronic venous stasis Code(s): I87.8 - OTHER SPECIFIED DISORDERS OF VEINS (4) Diabetes Code(s): E11.9 - TYPE 2 DIABETES MELLITUS WITHOUT COMPLICATIONS Qualifiers: Diabetes mellitus type: type 2 Diabetes mellitus long-term insulin use: without rn long term care use Diabetes mellitus complication status: with hyperglycemia Qualified Code(s): E11.65 - Type 2 diabetes mellitus with hyperglycemia (5) HTN (hypertension) Code(s): I10 - ESSENTIAL (PRIMARY) HYPERTENSION Qualifiers: Hypertension type: essential hypertension Qualified Code(s): I10 - Essential (primary) hypertension (6) Hypothyroidism Code(s): E03.9 - HYPOTHYROIDISM, UNSPECIFIED (7) Morbid obesity Code(s): E66.01 - MORBID (SEVERE) OBESITY DUE TO EXCESS CALORIES (8) UTI (lower urinary tract infection) Code(s): N39.0 - URINARY TRACT INFECTION, SITE NOT SPECIFIED
[2019-04-08 17:52] LABS: INR 2.52 (0.83-1.09)
[2019-04-08] MEDS: WARFARIN NA 2 MG TABLET (UD) PO SCH (18:02)
[2019-04-08] MEDS: ALBUTEROL SO4 0.083% IH SOL 2.5 MG/3 ML VIAL.NEB. NEB SCH (20:15)
[2019-04-09] MEDS ORDERED: PIPERACILLIN/TAZOBACTAM 4.5 GM VIAL IVPB ONE ×2 (01:15→10:20)
[2019-04-09] MEDS ORDERED: DEXTROSE 5%-WATER 100 ML IVPB ONE ×3 (01:15→17:17)
[2019-04-09] MEDS: PIPERACILLIN/TAZOB 4.5 GM 4.5 GM in DEXTROSE 5%-WATER 100 ML IVPB SCH ×2 (01:34→10:35)
[2019-04-09] MEDS: oxyCODONE HCL 5 MG TABLET PO PRN (03:19)
[2019-04-09] MEDS: VANCOMYCIN HCL 1,250 MG in DEXTROSE 5%-WATER - 250 ML IVPB SCH ×3 (03:19→17:59)
[2019-04-09] MEDS: INSULIN SLIDING SCALE (NOVOLOG) 1 VIAL SQ SCH ×4 (06:42→21:42)
[2019-04-09] MEDS: LEVOTHYROXINE NA 50 MCG TABLET (FP) PO SCH (06:42)
[2019-04-09] MEDS: GABAPENTIN 100 MG CAPSULE (FP) PO SCH ×3 (06:42→21:42)
[2019-04-09] MEDS: FUROSEMIDE 40 MG TABLET (FP) PO SCH ×2 (06:42→10:36)
[2019-04-09 07:07] LABS: BASO % 1.1 % (0-2.0); EOS % 6.9 % (0-4.5); HEMATOCRIT 31.5 % (32.4-45.2); HEMOGLOBIN 10.4 GM/dL (10.7-15.3); LYMPH % 15.5 % (8-40); MCH 27.6 pg (25.7-33.7); MEAN CELL VOLUME 83.5 fl (80-96); MEAN PLT VOLUME 7.4 fl (7.5-11.1); NEUT % 67.5 % (42.8-82.8); PLATELET COUNT 260 K/MM3 (134-434); RBC 3.78 M/mm3 (3.60-5.2); RDW 19.3 % (11.6-15.6); WHITE BLOOD COUNT 9.1 K/mm3 (4.0-10.0)
[2019-04-09] MEDS: ALBUTEROL SO4 0.083% IH SOL 2.5 MG/3 ML VIAL.NEB. NEB SCH ×5 (07:15→19:57)
[2019-04-09 07:16] LABS: INR 2.72 (0.83-1.09); PROTHROMBIN TIME (PATIENT) 32.4 SEC (9.7-13.0)
--- NOTE | 2019-04-09 07:56 | PN ---
Physical Exam: SUBJECTIVE: Patient seen and examined. Resting comfortably. In no acute distress. No chest pain, no SOB. OBJECTIVE: Vital Signs Period Temp Pulse Resp BP Sys/Luke Pulse Ox Last 24 Hr 99 F-99.8 F 66-106 20-22 102-120/46-64 95 Vital Signs Temp 98.4 F 04/09/19 19:58 Pulse 78 04/09/19 19:58 Resp 20 04/09/19 19:58 BP 138/72 04/09/19 19:58 Pulse Ox 95 04/08/19 21:00 GENERAL: The patient is awake, alert, and fully oriented, in no acute distress. LUNGS: reduced Breath sounds bilaterally, no wheezes, no crackles HEART: irreg, S1, S2 without murmur ABDOMEN: Soft, nontender, obese, with chronic hyperkeratotic skin changes, normoactive bowel sounds EXTREMITIES: RLE wrapped. LLE with 2x2cm deep hole. Clean margins, no induration. Some surrounding erythema NEUROLOGICAL: AAOx3. Able to move all extremities. No lateralizing sign CBC, BMP 04/09/19 06:42 04/09/19 06:42 Laboratory Results - last 24 hr 04/08/19 04/08/19 04/08/19 06:00 06:00 13:06 WBC 9.1 RBC 3.81 Hgb 10.5 L Hct 31.9 L MCV 83.8 MCH 27.7 MCHC 33.1 RDW 19.9 H Plt Count 248 MPV 7.7 Absolute Neuts (auto) 6.8 Neutrophils % 74.1 Lymphocytes % 11.2 D Monocytes % 7.3 Eosinophils % 6.5 H Basophils % 0.9 Nucleated RBC % 0 PT with INR INR Sodium 142 Potassium 3.8 Chloride 108 H Carbon Dioxide 28 Anion Gap 6 L BUN 17.1 Creatinine 0.8 Est GFR (CKD-EPI)AfAm 79.02 Est GFR (CKD-EPI)NonAf 68.18 POC Glucometer 151 Random Glucose 121 H Calcium 8.1 L Phosphorus 2.5 Magnesium 1.9 Total Bilirubin 1.1 H AST 14 L ALT 9 L Alkaline Phosphatase 93 Total Protein 5.8 L Albumin 2.4 L 04/08/19 04/08/19 04/08/19 16:30 18:04 18:06 WBC RBC Hgb Hct MCV MCH MCHC RDW Plt Count MPV Absolute Neuts (auto) Neutrophils % Lymphocytes % Monocytes % Eosinophils % Basophils % Nucleated RBC % PT with INR 30.00 H INR 2.52 H Sodium Potassium Chloride Carbon Dioxide Anion Gap BUN Creatinine Est GFR (CKD-EPI)AfAm Est GFR (CKD-EPI)NonAf POC Glucometer > 600 139 Random Glucose Calcium Phosphorus Magnesium Total Bilirubin AST ALT Alkaline Phosphatase Total Protein Albumin 04/08/19 04/09/19 04/09/19 21:46 06:41 06:42 WBC 9.1 RBC 3.78 Hgb 10.4 L Hct 31.5 L MCV 83.5 MCH 27.6 MCHC 33.0 RDW 19.3 H Plt Count 260 MPV 7.4 L Absolute Neuts (auto) 6.1 Neutrophils % 67.5 Lymphocytes % 15.5 D Monocytes % 9.0 Eosinophils % 6.9 H Basophils % 1.1 Nucleated RBC % 0 PT with INR INR Sodium Potassium Chloride Carbon Dioxide Anion Gap BUN Creatinine Est GFR (CKD-EPI)AfAm Est GFR (CKD-EPI)NonAf POC Glucometer 127 149 Random Glucose Calcium Phosphorus Magnesium Total Bilirubin AST ALT Alkaline Phosphatase Total Protein Albumin 04/09/19 06:42 WBC RBC Hgb Hct MCV MCH MCHC RDW Plt Count MPV Absolute Neuts (auto) Neutrophils % Lymphocytes % Monocytes % Eosinophils % Basophils % Nucleated RBC % PT with INR 32.40 H INR 2.72 H Sodium Potassium Chloride Carbon Dioxide Anion Gap BUN Creatinine Est GFR (CKD-EPI)AfAm Est GFR (CKD-EPI)NonAf POC Glucometer Random Glucose Calcium Phosphorus Magnesium Total Bilirubin AST ALT Alkaline Phosphatase Total Protein Albumin Active Medications Generic Name Dose Route Start Last Admin Trade Name Freq PRN Reason Stop Dose Admin Acetaminophen 325 mg 04/06/19 19:27 04/07/19 21:09 Tylenol - PO 325 mg Q6H PRN Administration PAIN SCALE 1-5 Albuterol Sulfate 1 amp 04/06/19 20:00 04/08/19 20:15 Ventolin 0.083% Nebulizer Soln - NEB 1 amp RQID LYUDMILA Administration Allopurinol 100 mg 04/07/19 10:00 04/08/19 11:21 Zyloprim - PO 100 mg DAILY LYUDMILA Administration Digoxin 0.125 mg 04/06/19 19:15 04/08/19 11:22 Lanoxin - PO 0.125 mg DAILY LYUDMILA Administration Emollient Ointment 1 applic 04/09/19 10:00 Aquaphor - TP DAILY LYUDMILA Folic Acid 1 mg 04/06/19 19:15 04/08/19 11:22 Folic Acid - PO 1 mg DAILY LYUDMILA Administration Furosemide 40 mg 04/07/19 06:00 04/09/19 06:42 Lasix - PO 40 mg BID@0600,1400 LYUDMILA Administration Gabapentin 100 mg 04/06/19 22:00 04/09/19 06:42 Neurontin - PO 100 mg TID LYUDMILA Administration Vancomycin HCl 1,250 mg/ 250 mls @ 166.667 mls/hr 04/07/19 16:00 04/09/19 03: 19 Dextrose IVPB 166.667 mls/hr Q12H LYUDMILA Administration Protocol Piperacillin Sod/Tazobactam 100 mls @ 200 mls/hr 04/07/19 18:00 04/09/19 01: 34 Sod 4.5 gm/ Dextrose IVPB 200 mls/hr Q8H-IV LYUDMILA Administration Protocol Insulin Aspart 1 vial 04/07/19 23:00 04/09/19 06:42 Novolog Vial Sliding Scale - SQ Not Given ACHS LYUDMILA Protocol Levothyroxine Sodium 50 mcg 04/07/19 07:00 04/09/19 06:42 Synthroid - PO 50 mcg AM LYUDMILA Administration Loratadine 10 mg 04/07/19 10:00 04/08/19 11:22 Claritin - PO 10 mg DAILY LYUDMILA Administration Losartan Potassium 25 mg 04/06/19 19:30 04/08/19 11:22 Cozaar - PO 25 mg DAILY LYUDMILA Administration Nystatin 1 applic 04/07/19 10:00 04/08/19 11:23 Nystop Powder - TP 1 applic DAILY LYUDMILA Administration Oxycodone HCl 5 mg 04/08/19 08:37 04/09/19 03:19 Roxicodone - PO 5 mg Q12H PRN Administration PAIN LEVEL 6-10 Potassium Chloride 30 meq 04/08/19 09:45 04/08/19 13:08 K-Dur - PO 30 meq DAILY LYUDMILA Administration Tiotropium Bigler 2 puff 04/07/19 10:00 04/08/19 11:25 Spiriva Respimat IH 2 puff DAILY LYUDMILA Administration Warfarin Sodium 4 mg 04/07/19 23:00 04/08/19 18:02 Coumadin - PO 4 mg [id number]@1800 LYUDMILA Administration Current Medications Acetaminophen (Tylenol -) 325 mg PO Q6H PRN PRN Reason: PAIN SCALE 1-5 Last Admin: 04/09/19 10:40 Dose: 325 mg Albuterol Sulfate (Ventolin 0.083% Nebulizer Soln -) 1 amp NEB RQID [facility] Last Admin: 04/09/19 19:57 Dose: 1 amp Allopurinol (Zyloprim -) 100 mg PO DAILY [facility] Last Admin: 04/09/19 11:00 Dose: 100 mg Digoxin (Lanoxin -) 0.125 mg PO DAILY [facility] Last Admin: 04/09/19 10:39 Dose: 0.125 mg Emollient Ointment (Aquaphor -) 1 applic TP DAILY [facility] Last Admin: 04/09/19 10:38 Dose: 1 applic Folic Acid (Folic Acid -) 1 mg PO DAILY [facility] Last Admin: 04/09/19 10:35 Dose: 1 mg Furosemide (Lasix -) 40 mg PO DAILY [facility] Last Admin: 04/09/19 10:36 Dose: 40 mg Gabapentin (Neurontin -) 100 mg PO TID [facility] Last Admin: 04/09/19 21:42 Dose: 100 mg Meropenem 1 gm/ Dextrose 100 mls @ 200 mls/hr IVPB Q8H-IV [facility] Last Admin: 04/10/19 02:35 Dose: 200 mls/hr Vancomycin HCl 1,000 mg/ (Dextrose) 250 mls @ 166.667 mls/hr IVPB Q12H [facility]; Protocol Last Admin: 04/09/19 21:42 Dose: 166.667 mls/hr Insulin Aspart (Novolog Vial Sliding Scale -) 1 vial SQ ACHS [facility]; Protocol Last Admin: 04/09/19 21:42 Dose: 2 units Levothyroxine Sodium (Synthroid -) 50 mcg PO AM [facility] Last Admin: 04/09/19 06:42 Dose: 50 mcg Loratadine (Claritin -) 10 mg PO DAILY [facility] Last Admin: 04/09/19 10:36 Dose: 10 mg Losartan Potassium (Cozaar -) 25 mg PO DAILY [facility] Last Admin: 04/09/19 10:36 Dose: 25 mg Nystatin (Nystop Powder -) 1 applic TP DAILY [facility] Last Admin: 04/09/19 10:42 Dose: 1 applic Oxycodone HCl (Roxicodone -) 5 mg PO Q12H PRN PRN Reason: PAIN LEVEL 6-10 Last Admin: 04/10/19 02:47 Dose: 5 mg Potassium Chloride (K-Dur -) 30 meq PO DAILY [facility] Last Admin: 04/09/19 10:37 Dose: 30 meq Tiotropium Bigler (Spiriva Respimat) 2 puff IH DAILY [facility] Last Admin: 04/09/19 10:43 Dose: 2 puff Warfarin Sodium (Coumadin -) 4 mg PO [id number]@1800 [facility] Last Admin: 04/09/19 17:50 Dose: 4 mg Ambulatory Orders Allopurinol [Zyloprim -] 100 mg PO DAILY 12/10/18 Digoxin [Lanoxin -] 0.125 mg PO DAILY 12/10/18 Folic Acid 1 mg PO DAILY 12/10/18 Furosemide 40 mg PO BID 12/10/18 Gabapentin 100 mg PO TID 12/10/18 Levothyroxine [Synthroid -] 50 mcg PO DAILY 12/10/18 Losartan Potassium 25 mg PO DAILY 12/10/18 Warfarin Sodium 4 mg PO ASDIR MDD 2mg/4 mg everyother day 12/10/18 Albuterol 0.083% Nebulizer Bonnie [Ventolin 0.083% Nebulizer Soln -] 1 amp NEB QID 30 Days #1 amp 12/13/18 Insulin Sliding Scale [Novolog Vial Sliding Scale -] 1 vial SQ ACHS #1 units Tiotropium Bigler [Spiriva Respimat] 2 puff IH DAILY #30 inhaler 12/13/18 Acetaminophen [Tylenol .Regular Strength -] 325 mg PO PRN PRN 04/06/19 Loratadine 10 mg PO DAILY 04/06/19 Mineral Oil/Hydrophil Petrolat [Dermaphor Ointment] 1 applic TP DAILY 04/06/19 Nystatin Powder [Nystop Powder -] 1 applic TP DAILY 04/06/19 Potassium Chloride 30 meq PO DAILY 04/06/19 Microbiology 04/06/19 15:45 Blood - Peripheral Venous Blood Culture - Preliminary NO GROWTH OBTAINED AFTER 72 HOURS, INCUBATION TO CONTINUE FOR 2 DAYS. 04/06/19 15:15 Blood - Peripheral Venous Blood Culture - Preliminary NO GROWTH OBTAINED AFTER 72 HOURS, INCUBATION TO CONTINUE FOR 2 DAYS. 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 #worsening LLE wound and cellulitis Noted hematoma with cellulits s/p trauma and chronic venous stasis Pt on coumadin with recurrent multidrug resistant infections in past Per ID, vanc/zosyn stopped 04/06- 04/09, ESBL in wound cx- pt switched to meropenem 04/09/19 ID- Dr Jacques Duplex LLE- negative DVT except post tibial not well visualized Local wound dressing -done by surgical team/vascular Per surgery- -wound vac will be applied for change 3 times a week, pt will need home VNS services to change wound vac 3 times/week on dc Coumadin resumed Continue diet #Chronic RLE wound with dermatitis/venous stasis Local wound dressing by podiatry, nail care ID on case Vanc/zosyn- Day 3 (stopped 04/09/19) #Positive UA asymptomatic bacteriuria Has had ESBL UTI in past, Hold off treating Positive UA per ID #Persistent atrial fibrillation coumadin Coumadin on hold for now pending procedure if needed Therapeutic currently Seen by podiatry/sx, cont warfarin Cont dig Dig level- nl #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 Med surg Visit type - Emergency Visit Emergency Visit: Yes ED Registration Date: 04/06/19 Care time: The patient presented to the Emergency Department on the above date and was hospitalized for further evaluation of their emergent condition. - New Patient This patient is new to me today: No - Critical Care Critical Care patient: No - Discharge Referral Referred to [facility] No ATTENDING PHYSICIAN STATEMENT I saw and evaluated the patient. I reviewed the resident's note and discussed the case with the resident. I agree with the resident's findings and plan as documented. SUBJECTIVE: OBJECTIVE: ASSESSMENT AND PLAN:
[2019-04-09 08:16] LABS: ALBUMIN 2.4 g/dl (3.4-5.0); BILIRUBIN,TOTAL 1.1 mg/dL (0.2-1); BLOOD UREA NITROGEN 18.6 mg/dL (7-18); CALCIUM 8.1 mg/dL (8.5-10.1); MAGNESIUM 1.9 mg/dL (1.8-2.4); PHOSPHOROUS 2.6 mg/dL (2.5-4.9); POTASSIUM 3.8 mmol/L (3.5-5.1); TOT PROT 5.8 g/dl (6.4-8.2)
[2019-04-09] MEDS ORDERED: oxyCODONE HCL 5 MG TABLET PO ONE (10:34)
[2019-04-09] MEDS: FOLIC ACID 1 MG TABLET (FP) PO SCH (10:35)
[2019-04-09] MEDS: LOSARTAN POTASSIUM 25 MG TABLET PO SCH (10:36)
[2019-04-09] MEDS: LORATADINE 10 MG TABLET PO SCH (10:36)
[2019-04-09] MEDS: POTASSIUM CHLORIDE TABS 10 MEQ TABLET.ER (FP) PO SCH (10:37)
[2019-04-09] MEDS: MINERAL OIL/PET HY-PHL TOPICAL OINTMENT 454 GM JAR TP SCH (10:38)
[2019-04-09] MEDS: DIGOXIN 0.125 MG TABLET (FP) PO SCH (10:39)
[2019-04-09] MEDS: ACETAMINOPHEN 325 MG TABLET (FP) PO PRN (10:40)
[2019-04-09] MEDS: NYSTATIN POWDER 100,000 UNITS/GM - 15 GM TOPICAL POWDER TP SCH (10:42)
[2019-04-09] MEDS: TIOTROPIUM BROMIDE 2.5 MCG (SPIRIVA) RESPIMAT INHALER IH SCH (10:43)
--- NOTE | 2019-04-09 10:52 | PN ---
Progress Note (short form) - Note Progress Note: Vascular Surgery Pt seen and examined. Dressing changed. Packing removed. Clean base. Will start vac therapy to area please change vac three times a week. Tee Dugan DO
[2019-04-09] MEDS: ALLOPURINOL 100 MG TABLET (FP) PO SCH (11:00)
--- NOTE | 2019-04-09 13:56 | PN ---
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 04/06/19 15:15 Blood - Peripheral Venous Blood Culture - Preliminary NO GROWTH OBTAINED AFTER 48 HOURS, INCUBATION TO CONTINUE FOR 3 DAYS. a/p cellulitis secondary to hematoma-persists asymptomatic bacteriuria morbid obesity history of resistant organisms- mrsa/ecoli esbl-continue contact isolation continue vancomycin culture sensitivities reviewed with micro- switch to meropenem check vancomycin trough Problem List - Problems (1) Wound infection Code(s): T14.8XXA - OTHER INJURY OF UNSPECIFIED BODY REGION, INITIAL ENCOUNTER; L08.9 - LOCAL INFECTION OF THE SKIN AND SUBCUTANEOUS TISSUE, UNSP (2) Asymptomatic bacteriuria Code(s): R82.71 - BACTERIURIA (3) Morbid obesity Code(s): E66.01 - MORBID (SEVERE) OBESITY DUE TO EXCESS CALORIES (4) 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
[2019-04-09] MEDS ORDERED: MEROPENEM 1 GM VIAL (RESTRICTED TO ID) IVPB ONE (17:16)
[2019-04-09] MEDS ORDERED: PT OWN MED DRAWER 7, Y5N ONE (17:48)
[2019-04-09] MEDS: WARFARIN NA 2 MG TABLET (UD) PO SCH (17:50)
--- NOTE | 2019-04-09 18:34 | PN ---
Teaching Attending Note Name of Resident: Kaelyn Lucas ATTENDING PHYSICIAN STATEMENT I saw and evaluated the patient. I reviewed the resident's note and discussed the case with the resident. I agree with the resident's findings and plan as documented. SUBJECTIVE: Ms Hanley says she is feeling really well today. Denies cp, sob, n/v. OBJECTIVE: Last Vital Signs Temp Pulse Resp BP Pulse Ox 36.7 C 81 20 138/78 95 04/09/19 17:41 04/09/19 17:41 04/09/19 17:41 04/09/19 17:41 04/08/19 21:00 Gen: nad, obese Pulm: ctab w/o w/r/r CV: rrr w/o m/r/g Abd: +bs, s/nt/nd Ext: LLE with wound CBC, BMP 04/09/19 06:42 04/09/19 06:42 ASSESSMENT AND PLAN: (1) Wound infection Assessment/Plan: -afebrile -wound care per Dr Dugan -continue vancomycin Code(s): T14.8XXA - OTHER INJURY OF UNSPECIFIED BODY REGION, INITIAL ENCOUNTER; L08.9 - LOCAL INFECTION OF THE SKIN AND SUBCUTANEOUS TISSUE, UNSP (2) Cellulitis Assessment/Plan: -looks much improved -continue vancomycin Code(s): L03.90 - CELLULITIS, UNSPECIFIED Qualifiers: Site of cellulitis: extremity Site of cellulitis of extremity: lower extremity Laterality: left Qualified Code(s): L03.116 - Cellulitis of left lower limb (3) Chronic venous stasis Assessment/Plan: -noted Code(s): I87.8 - OTHER SPECIFIED DISORDERS OF VEINS (4) Diabetes Assessment/Plan: -diabetic diet -FSBS and SSI Code(s): E11.9 - TYPE 2 DIABETES MELLITUS WITHOUT COMPLICATIONS Qualifiers: Diabetes mellitus type: type 2 Diabetes mellitus longterm insulin use: without superintendent container terminal use Diabetes mellitus complication status: with hyperglycemia Qualified Code(s): E11.65 - Type 2 diabetes mellitus with hyperglycemia (5) HTN (hypertension) Assessment/Plan: -continue cozaar -continue lasix -well controlled Code(s): I10 - ESSENTIAL (PRIMARY) HYPERTENSION Qualifiers: Hypertension type: essential hypertension Qualified Code(s): I10 - Essential (primary) hypertension (6) Hypothyroidism Assessment/Plan: -continue synthroid Code(s): E03.9 - HYPOTHYROIDISM, UNSPECIFIED (7) Morbid obesity Assessment/Plan: -noted Code(s): E66.01 - MORBID (SEVERE) OBESITY DUE TO EXCESS CALORIES (8) UTI (lower urinary tract infection) Assessment/Plan: -asymptomatic bacteruria Code(s): N39.0 - URINARY TRACT INFECTION, SITE NOT SPECIFIED Problem List - Problems (1) Wound infection Code(s): T14.8XXA - OTHER INJURY OF UNSPECIFIED BODY REGION, INITIAL ENCOUNTER; L08.9 - LOCAL INFECTION OF THE SKIN AND SUBCUTANEOUS TISSUE, UNSP (2) Cellulitis Code(s): L03.90 - CELLULITIS, UNSPECIFIED Qualifiers: Site of cellulitis: extremity Site of cellulitis of extremity: lower extremity Laterality: left Qualified Code(s): L03.116 - Cellulitis of left lower limb (3) Chronic venous stasis Code(s): I87.8 - OTHER SPECIFIED DISORDERS OF VEINS (4) Diabetes Code(s): E11.9 - TYPE 2 DIABETES MELLITUS WITHOUT COMPLICATIONS Qualifiers: Diabetes mellitus type: type 2 Diabetes mellitus longterm insulin use: without longterm use Diabetes mellitus complication status: with hyperglycemia Qualified Code(s): E11.65 - Type 2 diabetes mellitus with hyperglycemia (5) HTN (hypertension) Code(s): I10 - ESSENTIAL (PRIMARY) HYPERTENSION Qualifiers: Hypertension type: essential hypertension Qualified Code(s): I10 - Essential (primary) hypertension (6) Hypothyroidism Code(s): E03.9 - HYPOTHYROIDISM, UNSPECIFIED (7) Morbid obesity Code(s): E66.01 - MORBID (SEVERE) OBESITY DUE TO EXCESS CALORIES (8) UTI (lower urinary tract infection) Code(s): N39.0 - URINARY TRACT INFECTION, SITE NOT SPECIFIED
[2019-04-09] MEDS: MEROPENEM 1 GM in DEXTROSE 5%-WATER 100 ML IVPB SCH (19:20)
[2019-04-09] MEDS ORDERED: VANCOMYCIN 1,000 MG in DEXTROSE 5%-WATER - 250 ML IVPB SCH (22:00)
[2019-04-10] MEDS ORDERED: DEXTROSE 5%-WATER 100 ML IVPB ONE ×4 (02:11→23:54)
[2019-04-10] MEDS ORDERED: MEROPENEM 1 GM VIAL (RESTRICTED TO ID) IVPB ONE ×4 (02:11→23:53)
[2019-04-10] MEDS: MEROPENEM 1 GM in DEXTROSE 5%-WATER 100 ML IVPB SCH ×3 (02:35→18:25)
[2019-04-10] MEDS: oxyCODONE HCL 5 MG TABLET PO PRN ×2 (02:47→15:22)
[2019-04-10] MEDS: INSULIN SLIDING SCALE (NOVOLOG) 1 VIAL SQ SCH ×4 (06:31→21:13)
[2019-04-10] MEDS: GABAPENTIN 100 MG CAPSULE (FP) PO SCH ×3 (06:32→21:08)
[2019-04-10] MEDS: LEVOTHYROXINE NA 50 MCG TABLET (FP) PO SCH (06:32)
[2019-04-10 07:03] LABS: BASO % 0.9 % (0-2.0); EOS % 5.9 % (0-4.5); HEMOGLOBIN 10.7 GM/dL (10.7-15.3); LYMPH % 13.4 % (8-40); MCH 27.9 pg (25.7-33.7); MCHC 33.4 g/dl (32.0-36.0); MEAN CELL VOLUME 83.4 fl (80-96); MEAN PLT VOLUME 7.7 fl (7.5-11.1); MONO % 8.5 % (3.8-10.2); NEUT % 71.3 % (42.8-82.8); PLATELET COUNT 265 K/MM3 (134-434); RBC 3.84 M/mm3 (3.60-5.2); RDW 19.7 % (11.6-15.6); WHITE BLOOD COUNT 9.3 K/mm3 (4.0-10.0)
[2019-04-10 07:24] LABS: INR 2.96 (0.83-1.09); PROTHROMBIN TIME (PATIENT) 35.3 SEC (9.7-13.0)
[2019-04-10 07:24] LABS: ALBUMIN 2.4 g/dl (3.4-5.0); BILIRUBIN,TOTAL 0.8 mg/dL (0.2-1); BLOOD UREA NITROGEN 22.3 mg/dL (7-18); CALCIUM 8.1 mg/dL (8.5-10.1); CREATININE 0.8 mg/dL (0.55-1.3); MAGNESIUM 1.8 mg/dL (1.8-2.4); PHOSPHOROUS 3.3 mg/dL (2.5-4.9); POTASSIUM 3.9 mmol/L (3.5-5.1); TOT PROT 5.8 g/dl (6.4-8.2)
[2019-04-10] MEDS: ALBUTEROL SO4 0.083% IH SOL 2.5 MG/3 ML VIAL.NEB. NEB SCH ×4 (07:30→20:08)
[2019-04-10] MEDS: VANCOMYCIN 1 GRAM (PRE-DOCKED) 1,000 MG/250 ML BAG IVPB SCH ×2 (09:05→21:07)
[2019-04-10] MEDS: LORATADINE 10 MG TABLET PO SCH (09:44)
[2019-04-10] MEDS: FOLIC ACID 1 MG TABLET (FP) PO SCH (09:44)
[2019-04-10] MEDS: LOSARTAN POTASSIUM 25 MG TABLET PO SCH (09:44)
[2019-04-10] MEDS: FUROSEMIDE 40 MG TABLET (FP) PO SCH (09:44)
[2019-04-10] MEDS: MINERAL OIL/PET HY-PHL TOPICAL OINTMENT 454 GM JAR TP SCH (09:45)
[2019-04-10] MEDS: NYSTATIN POWDER 100,000 UNITS/GM - 15 GM TOPICAL POWDER TP SCH (09:46)
[2019-04-10] MEDS ORDERED: PT OWN MED DRAWER 7, Y5N ONE (09:52)
[2019-04-10] MEDS: DIGOXIN 0.125 MG TABLET (FP) PO SCH (09:55)
[2019-04-10] MEDS: ALLOPURINOL 100 MG TABLET (FP) PO SCH (10:49)
[2019-04-10] MEDS: POTASSIUM CHLORIDE TABS 10 MEQ TABLET.ER (FP) PO SCH (10:49)
[2019-04-10] MEDS: TIOTROPIUM BROMIDE 2.5 MCG (SPIRIVA) RESPIMAT INHALER IH SCH (10:50)
--- NOTE | 2019-04-10 12:23 | PN ---
Progress Note (short form) - Note Progress Note: vac placed Vital Signs Period Temp Pulse Resp BP Sys/Luke Pulse Ox Last 24 Hr 98.1 F-99.2 F 78-98 20-20 106-138/54-78 cor-rrr lungs clear abd soft, +pannus ext +erythema surrounding the vac CBC, BMP 04/10/19 06:33 04/10/19 06:00 trough 20 Microbiology 04/06/19 16:19 Leg - Left Lower Gram Stain - Final 04/06/19 16:19 Leg - Left Lower Wound Culture - Preliminary Escherichia Coli Esbl [employer]per Acinetobacter Baumannii/Haemol Proteus Mirabilis Group D Strep Or Entero Coccus Mr S Aureus 04/06/19 15:45 Blood - Peripheral Venous Blood Culture - Preliminary NO GROWTH OBTAINED AFTER 72 HOURS, INCUBATION TO CONTINUE FOR 2 DAYS. 04/06/19 15:15 Blood - Peripheral Venous Blood Culture - Preliminary NO GROWTH OBTAINED AFTER 72 HOURS, INCUBATION TO CONTINUE FOR 2 DAYS. 04/06/19 16:19 Urine - Urine Clean Catch Urine Culture - Preliminary Escherichia Coli Esbl [employer] Group D Strep Or Entero Coccus a/p cellulitis secondary to hematoma-persists asymptomatic bacteriuria morbid obesity history of resistant organisms- mrsa/ecoli esbl-continue contact isolation vancomycin dose reduced culture sensitivities reviewed with micro-acinteobacter I to ertapenem- continue meropenem Problem List - Problems (1) Wound infection Code(s): T14.8XXA - OTHER INJURY OF UNSPECIFIED BODY REGION, INITIAL ENCOUNTER; L08.9 - LOCAL INFECTION OF THE SKIN AND SUBCUTANEOUS TISSUE, UNSP (2) Asymptomatic bacteriuria Code(s): R82.71 - BACTERIURIA (3) Morbid obesity Code(s): E66.01 - MORBID (SEVERE) OBESITY DUE TO EXCESS CALORIES (4) 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
[2019-04-10 12:28] LABS: INR 2.99 (0.83-1.09); PROTHROMBIN TIME (PATIENT) 35.7 SEC (9.7-13.0)
--- NOTE | 2019-04-10 17:02 | PN ---
Progress Note, Physician Chief Complaint: Ms Hanley is upset that her wound vac fell out. Denies cp, sob, n/v. - Current Medication List Current Medications: Active Medications Acetaminophen (Tylenol -) 325 mg PO Q6H PRN PRN Reason: PAIN SCALE 1-5 Last Admin: 04/09/19 10:40 Dose: 325 mg Albuterol Sulfate (Ventolin 0.083% Nebulizer Soln -) 1 amp NEB RQID [facility] Last Admin: 04/10/19 15:33 Dose: 1 amp Allopurinol (Zyloprim -) 100 mg PO DAILY [facility] Last Admin: 04/10/19 10:49 Dose: 100 mg Digoxin (Lanoxin -) 0.125 mg PO DAILY [facility] Last Admin: 04/10/19 09:55 Dose: 0.125 mg Emollient Ointment (Aquaphor -) 1 applic TP DAILY [facility] Last Admin: 04/10/19 09:45 Dose: 1 applic Folic Acid (Folic Acid -) 1 mg PO DAILY [facility] Last Admin: 04/10/19 09:44 Dose: 1 mg Furosemide (Lasix -) 40 mg PO DAILY [facility] Last Admin: 04/10/19 09:44 Dose: 40 mg Gabapentin (Neurontin -) 100 mg PO TID [facility] Last Admin: 04/10/19 15:22 Dose: 100 mg Meropenem 1 gm/ Dextrose 100 mls @ 200 mls/hr IVPB Q8H-IV [facility] Last Admin: 04/10/19 09:48 Dose: 200 mls/hr Vancomycin HCl (Vancomycin (Pre-Docked)) 1,000 mg in 250 mls @ 166.667 mls/hr IVPB Q12H [facility]; Protocol Last Admin: 04/10/19 09:05 Dose: 166.667 mls/hr Insulin Aspart (Novolog Vial Sliding Scale -) 1 vial SQ ACHS [facility]; Protocol Last Admin: 04/10/19 12:48 Dose: 10 units Levothyroxine Sodium (Synthroid -) 50 mcg PO AM [facility] Last Admin: 04/10/19 06:32 Dose: 50 mcg Loratadine (Claritin -) 10 mg PO DAILY [facility] Last Admin: 04/10/19 09:44 Dose: 10 mg Losartan Potassium (Cozaar -) 25 mg PO DAILY [facility] Last Admin: 04/10/19 09:44 Dose: 25 mg Nystatin (Nystop Powder -) 1 applic TP DAILY [facility] Last Admin: 04/10/19 09:46 Dose: 1 applic Oxycodone HCl (Roxicodone -) 5 mg PO Q12H PRN PRN Reason: PAIN LEVEL 6-10 Last Admin: 04/10/19 15:22 Dose: 5 mg Potassium Chloride (K-Dur -) 30 meq PO DAILY [facility] Last Admin: 04/10/19 10:49 Dose: 30 meq Tiotropium [place] (Spiriva Respimat) 2 puff IH DAILY [facility] Last Admin: 04/10/19 10:50 Dose: 2 puff Warfarin Sodium (Coumadin -) 4 mg PO SuTuWeThFrSa@1800 [facility] Last Admin: 04/09/19 17:50 Dose: 4 mg - Objective Vital Signs: Vital Signs Temperature 37.2 C 04/10/19 10:00 Pulse Rate 74 04/10/19 10:00 Respiratory Rate 18 04/10/19 10:00 Blood Pressure 110/67 04/10/19 10:00 O2 Sat by Pulse Oximetry (%) 95 04/08/19 21:00 Constitutional: Yes: No Distress, Calm, Obese Cardiovascular: Yes: Regular Rate and Rhythm. No: Gallop, Murmur, Rub Respiratory: Yes: Regular, CTA Bilaterally. No: Rales, Rhonchi, Wheezes Gastrointestinal: Yes: Normal Bowel Sounds, Soft. No: Distention, Tenderness Extremities: Yes: Erythema, Other (wound on LLE) Edema: No Labs: CBC, BMP 04/10/19 06:33 04/10/19 06:00 INR, PTT INR 2.99 (0.83-1.09) H 04/10/19 11:15 Problem List - Problems (1) Wound infection Code(s): T14.8XXA - OTHER INJURY OF UNSPECIFIED BODY REGION, INITIAL ENCOUNTER; L08.9 - LOCAL INFECTION OF THE SKIN AND SUBCUTANEOUS TISSUE, UNSP (2) Cellulitis Code(s): L03.90 - CELLULITIS, UNSPECIFIED Qualifiers: Site of cellulitis: extremity Site of cellulitis of extremity: lower extremity Laterality: left Qualified Code(s): L03.116 - Cellulitis of left lower limb (3) Chronic venous stasis Code(s): I87.8 - OTHER SPECIFIED DISORDERS OF VEINS (4) Diabetes Code(s): E11.9 - TYPE 2 DIABETES MELLITUS WITHOUT COMPLICATIONS Qualifiers: Diabetes mellitus type: type 2 Diabetes mellitus intermediate insulin use: without supervisor long goods use Diabetes mellitus complication status: with hyperglycemia Qualified Code(s): E11.65 - Type 2 diabetes mellitus with hyperglycemia (5) HTN (hypertension) Code(s): I10 - ESSENTIAL (PRIMARY) HYPERTENSION Qualifiers: Hypertension type: essential hypertension Qualified Code(s): I10 - Essential (primary) hypertension (6) Hypothyroidism Code(s): E03.9 - HYPOTHYROIDISM, UNSPECIFIED (7) Morbid obesity Code(s): E66.01 - MORBID (SEVERE) OBESITY DUE TO EXCESS CALORIES (8) UTI (lower urinary tract infection) Code(s): N39.0 - URINARY TRACT INFECTION, SITE NOT SPECIFIED Assessment/Plan (1) Wound infection Assessment/Plan: -afebrile -wound care per Dr Dugan -on merrem and vancomycin -replace wound vac Code(s): T14.8XXA - OTHER INJURY OF UNSPECIFIED BODY REGION, INITIAL ENCOUNTER; L08.9 - LOCAL INFECTION OF THE SKIN AND SUBCUTANEOUS TISSUE, UNSP (2) Cellulitis Assessment/Plan: -looks much improved -continue vancomycin and merrem Code(s): L03.90 - CELLULITIS, UNSPECIFIED Qualifiers: Site of cellulitis: extremity Site of cellulitis of extremity: lower extremity Laterality: left Qualified Code(s): L03.116 - Cellulitis of left lower limb (3) Chronic venous stasis Assessment/Plan: -noted Code(s): I87.8 - OTHER SPECIFIED DISORDERS OF VEINS (4) Diabetes Assessment/Plan: -diabetic diet -FSBS and SSI Code(s): E11.9 - TYPE 2 DIABETES MELLITUS WITHOUT COMPLICATIONS Qualifiers: Diabetes mellitus type: type 2 Diabetes mellitus supervisor long goods insulin use: without supervisor long goods use Diabetes mellitus complication status: with hyperglycemia Qualified Code(s): E11.65 - Type 2 diabetes mellitus with hyperglycemia (5) HTN (hypertension) Assessment/Plan: -continue cozaar -continue lasix -well controlled Code(s): I10 - ESSENTIAL (PRIMARY) HYPERTENSION Qualifiers: Hypertension type: essential hypertension Qualified Code(s): I10 - Essential (primary) hypertension (6) Hypothyroidism Assessment/Plan: -continue synthroid Code(s): E03.9 - HYPOTHYROIDISM, UNSPECIFIED (7) Morbid obesity Assessment/Plan: -noted Code(s): E66.01 - MORBID (SEVERE) OBESITY DUE TO EXCESS CALORIES (8) UTI (lower urinary tract infection) Assessment/Plan: -asymptomatic bacteruria Code(s): N39.0 - URINARY TRACT INFECTION, SITE NOT SPECIFIED
[2019-04-10] MEDS: WARFARIN NA 2 MG TABLET (UD) PO SCH (18:19)
[2019-04-11] MEDS: MEROPENEM 1 GM in DEXTROSE 5%-WATER 100 ML IVPB SCH ×3 (01:12→17:35)
[2019-04-11] MEDS: oxyCODONE HCL 5 MG TABLET PO PRN ×2 (06:16→18:13)
[2019-04-11] MEDS: LEVOTHYROXINE NA 50 MCG TABLET (FP) PO SCH (06:19)
[2019-04-11] MEDS: INSULIN SLIDING SCALE (NOVOLOG) 1 VIAL SQ SCH ×4 (06:19→21:02)
[2019-04-11] MEDS: GABAPENTIN 100 MG CAPSULE (FP) PO SCH ×3 (06:19→20:59)
[2019-04-11] MEDS: ALBUTEROL SO4 0.083% IH SOL 2.5 MG/3 ML VIAL.NEB. NEB SCH ×3 (07:35→16:08)
[2019-04-11 07:55] LABS: BASO % 0.9 % (0-2.0); EOS % 6.1 % (0-4.5); HEMATOCRIT 34.3 % (32.4-45.2); HEMOGLOBIN 11.2 GM/dL (10.7-15.3); LYMPH % 17.2 % (8-40); MCH 27.8 pg (25.7-33.7); MCHC 32.8 g/dl (32.0-36.0); MEAN CELL VOLUME 84.9 fl (80-96); MEAN PLT VOLUME 7.8 fl (7.5-11.1); MONO % 9.1 % (3.8-10.2); NEUT % 66.7 % (42.8-82.8); PLATELET COUNT 261 K/MM3 (134-434); RBC 4.04 M/mm3 (3.60-5.2); RDW 19.4 % (11.6-15.6); WHITE BLOOD COUNT 8.7 K/mm3 (4.0-10.0)
[2019-04-11 08:12] LABS: BLOOD UREA NITROGEN 21.3 mg/dL (7-18); CALCIUM 8.4 mg/dL (8.5-10.1); CREATININE 0.7 mg/dL (0.55-1.3); PHOSPHOROUS 2.6 mg/dL (2.5-4.9); POTASSIUM 4.2 mmol/L (3.5-5.1)
[2019-04-11] MEDS: VANCOMYCIN 1 GRAM (PRE-DOCKED) 1,000 MG/250 ML BAG IVPB SCH ×2 (08:27→20:56)
[2019-04-11] MEDS ORDERED: MEROPENEM 1 GM VIAL (RESTRICTED TO ID) IVPB ONE ×2 (09:29→16:39)
[2019-04-11] MEDS ORDERED: DEXTROSE 5%-WATER 100 ML IVPB ONE ×2 (09:29→16:39)
[2019-04-11] MEDS: LORATADINE 10 MG TABLET PO SCH (09:35)
[2019-04-11] MEDS: ALLOPURINOL 100 MG TABLET (FP) PO SCH (09:35)
[2019-04-11] MEDS: FOLIC ACID 1 MG TABLET (FP) PO SCH (09:35)
[2019-04-11] MEDS: LOSARTAN POTASSIUM 25 MG TABLET PO SCH (09:35)
[2019-04-11] MEDS: FUROSEMIDE 40 MG TABLET (FP) PO SCH (09:35)
[2019-04-11] MEDS: POTASSIUM CHLORIDE TABS 10 MEQ TABLET.ER (FP) PO SCH (09:35)
[2019-04-11] MEDS: MINERAL OIL/PET HY-PHL TOPICAL OINTMENT 454 GM JAR TP SCH (09:37)
[2019-04-11] MEDS: DIGOXIN 0.125 MG TABLET (FP) PO SCH (09:38)
[2019-04-11] MEDS: TIOTROPIUM BROMIDE 2.5 MCG (SPIRIVA) RESPIMAT INHALER IH SCH (09:39)
[2019-04-11] MEDS: NYSTATIN POWDER 100,000 UNITS/GM - 15 GM TOPICAL POWDER TP SCH (09:40)
[2019-04-11] MEDS ORDERED: INSULIN (NOVOLOG) ASPART 100 UNITS/ML 10ML VIAL ONE ×2 (11:05→20:39)
--- NOTE | 2019-04-11 12:23 | PN ---
Progress Note, Physician Chief Complaint: Ms Hanley says she is doing better, wants to walk more. No cp, sob, n/v. - Current Medication List Current Medications: Active Medications Acetaminophen (Tylenol -) 325 mg PO Q6H PRN PRN Reason: PAIN SCALE 1-5 Last Admin: 04/09/19 10:40 Dose: 325 mg Albuterol Sulfate (Ventolin 0.083% Nebulizer Soln -) 1 amp NEB RQID [facility] Last Admin: 04/11/19 11:17 Dose: 1 amp Allopurinol (Zyloprim -) 100 mg PO DAILY [facility] Last Admin: 04/11/19 09:35 Dose: 100 mg Digoxin (Lanoxin -) 0.125 mg PO DAILY [facility] Last Admin: 04/11/19 09:38 Dose: 0.125 mg Emollient Ointment (Aquaphor -) 1 applic TP DAILY [facility] Last Admin: 04/11/19 09:37 Dose: 1 applic Folic Acid (Folic Acid -) 1 mg PO DAILY [facility] Last Admin: 04/11/19 09:35 Dose: 1 mg Furosemide (Lasix -) 40 mg PO DAILY [facility] Last Admin: 04/11/19 09:35 Dose: 40 mg Gabapentin (Neurontin -) 100 mg PO TID [facility] Last Admin: 04/11/19 06:19 Dose: 100 mg Meropenem 1 gm/ Dextrose 100 mls @ 200 mls/hr IVPB Q8H-IV [facility] Last Admin: 04/11/19 10:56 Dose: 200 mls/hr Vancomycin HCl (Vancomycin (Pre-Docked)) 1,000 mg in 250 mls @ 166.667 mls/hr IVPB Q12H [facility]; Protocol Last Admin: 04/11/19 08:27 Dose: 166.667 mls/hr Insulin Aspart (Novolog Vial Sliding Scale -) 1 vial SQ ACHS [facility]; Protocol Last Admin: 04/11/19 11:07 Dose: 2 units Levothyroxine Sodium (Synthroid -) 50 mcg PO AM [facility] Last Admin: 04/11/19 06:19 Dose: 50 mcg Loratadine (Claritin -) 10 mg PO DAILY [facility] Last Admin: 04/11/19 09:35 Dose: 10 mg Losartan Potassium (Cozaar -) 25 mg PO DAILY [facility] Last Admin: 04/11/19 09:35 Dose: 25 mg Nystatin (Nystop Powder -) 1 applic TP DAILY [facility] Last Admin: 04/11/19 09:40 Dose: 1 applic Oxycodone HCl (Roxicodone -) 5 mg PO Q12H PRN PRN Reason: PAIN LEVEL 6-10 Last Admin: 04/11/19 06:16 Dose: 5 mg Potassium Chloride (K-Dur -) 30 meq PO DAILY [facility] Last Admin: 04/11/19 09:35 Dose: 30 meq Tiotropium [place] (Spiriva Respimat) 2 puff IH DAILY [facility] Last Admin: 04/11/19 09:39 Dose: 2 puff Warfarin Sodium (Coumadin -) 4 mg PO [id number]@1800 [facility] Last Admin: 04/10/19 18:19 Dose: 4 mg - Objective Vital Signs: Vital Signs Temperature 36.7 C 04/11/19 10:00 Pulse Rate 101 H 04/11/19 10:00 Respiratory Rate 20 04/11/19 10:00 Blood Pressure 98/55 L 04/11/19 10:00 O2 Sat by Pulse Oximetry (%) 95 04/08/19 21:00 Constitutional: Yes: No Distress, Calm, Obese Cardiovascular: Yes: Regular Rate and Rhythm. No: Gallop, Murmur, Rub Respiratory: Yes: Regular, CTA Bilaterally. No: Rales, Rhonchi, Wheezes Gastrointestinal: Yes: Normal Bowel Sounds, Soft. No: Distention, Tenderness Extremities: Yes: Erythema, Other (wound vac in place) Edema: Yes Edema: LLE: 1+, RLE: 1+ Labs: CBC, BMP 04/11/19 06:35 04/11/19 06:35 INR, PTT INR 2.99 (0.83-1.09) H 04/10/19 11:15 Problem List - Problems (1) Wound infection Code(s): T14.8XXA - OTHER INJURY OF UNSPECIFIED BODY REGION, INITIAL ENCOUNTER; L08.9 - LOCAL INFECTION OF THE SKIN AND SUBCUTANEOUS TISSUE, UNSP (2) Cellulitis Code(s): L03.90 - CELLULITIS, UNSPECIFIED Qualifiers: Site of cellulitis: extremity Site of cellulitis of extremity: lower extremity Laterality: left Qualified Code(s): L03.116 - Cellulitis of left lower limb (3) Chronic venous stasis Code(s): I87.8 - OTHER SPECIFIED DISORDERS OF VEINS (4) Diabetes Code(s): E11.9 - TYPE 2 DIABETES MELLITUS WITHOUT COMPLICATIONS Qualifiers: Diabetes mellitus type: type 2 Diabetes mellitus prison insulin use: without prison use Diabetes mellitus complication status: with hyperglycemia Qualified Code(s): E11.65 - Type 2 diabetes mellitus with hyperglycemia (5) HTN (hypertension) Code(s): I10 - ESSENTIAL (PRIMARY) HYPERTENSION Qualifiers: Hypertension type: essential hypertension Qualified Code(s): I10 - Essential (primary) hypertension (6) Hypothyroidism Code(s): E03.9 - HYPOTHYROIDISM, UNSPECIFIED (7) Morbid obesity Code(s): E66.01 - MORBID (SEVERE) OBESITY DUE TO EXCESS CALORIES (8) UTI (lower urinary tract infection) Code(s): N39.0 - URINARY TRACT INFECTION, SITE NOT SPECIFIED Assessment/Plan (1) Wound infection Assessment/Plan: -afebrile -wound care per Dr Dugan -on merrem and vancomycin -wound vac in place Code(s): T14.8XXA - OTHER INJURY OF UNSPECIFIED BODY REGION, INITIAL ENCOUNTER; L08.9 - LOCAL INFECTION OF THE SKIN AND SUBCUTANEOUS TISSUE, UNSP (2) Cellulitis Assessment/Plan: -still with erythema -continue vancomycin and merrem -case d/w Dr Wright Code(s): L03.90 - CELLULITIS, UNSPECIFIED Qualifiers: Site of cellulitis: extremity Site of cellulitis of extremity: lower extremity Laterality: left Qualified Code(s): L03.116 - Cellulitis of left lower limb (3) Chronic venous stasis Assessment/Plan: -noted Code(s): I87.8 - OTHER SPECIFIED DISORDERS OF VEINS (4) Diabetes Assessment/Plan: -diabetic diet -FSBS and SSI Code(s): E11.9 - TYPE 2 DIABETES MELLITUS WITHOUT COMPLICATIONS Qualifiers: Diabetes mellitus type: type 2 Diabetes mellitus prison insulin use: without rodent exterminator use Diabetes mellitus complication status: with hyperglycemia Qualified Code(s): E11.65 - Type 2 diabetes mellitus with hyperglycemia (5) HTN (hypertension) Assessment/Plan: -continue cozaar -continue lasix -well controlled Code(s): I10 - ESSENTIAL (PRIMARY) HYPERTENSION Qualifiers: Hypertension type: essential hypertension Qualified Code(s): I10 - Essential (primary) hypertension (6) Hypothyroidism Assessment/Plan: -continue synthroid Code(s): E03.9 - HYPOTHYROIDISM, UNSPECIFIED (7) Morbid obesity Assessment/Plan: -noted Code(s): E66.01 - MORBID (SEVERE) OBESITY DUE TO EXCESS CALORIES (8) UTI (lower urinary tract infection) Assessment/Plan: -asymptomatic bacteruria Code(s): N39.0 - URINARY TRACT INFECTION, SITE NOT SPECIFIED
[2019-04-11] MEDS: ACETAMINOPHEN 325 MG TABLET (FP) PO PRN (17:28)
[2019-04-11 18:45] LABS: INR 3.19 (0.83-1.09); PROTHROMBIN TIME (PATIENT) 38.1 SEC (9.7-13.0)
[2019-04-11] MEDS: WARFARIN NA 2 MG TABLET (UD) PO SCH (20:48)
[2019-04-12] MEDS ORDERED: MEROPENEM 1 GM VIAL (RESTRICTED TO ID) IVPB ONE ×3 (00:48→17:10)
[2019-04-12] MEDS ORDERED: DEXTROSE 5%-WATER 100 ML IVPB ONE ×3 (00:48→17:11)
[2019-04-12] MEDS: MEROPENEM 1 GM in DEXTROSE 5%-WATER 100 ML IVPB SCH ×3 (01:05→17:15)
[2019-04-12] MEDS: INSULIN SLIDING SCALE (NOVOLOG) 1 VIAL SQ SCH ×4 (06:31→21:26)
[2019-04-12] MEDS: LEVOTHYROXINE NA 50 MCG TABLET (FP) PO SCH (06:32)
[2019-04-12] MEDS: GABAPENTIN 100 MG CAPSULE (FP) PO SCH ×3 (06:32→21:20)
[2019-04-12] MEDS ORDERED: INSULIN (NOVOLOG) ASPART 100 UNITS/ML 10ML VIAL ONE ×2 (06:45→11:30)
[2019-04-12] MEDS: VANCOMYCIN 1 GRAM (PRE-DOCKED) 1,000 MG/250 ML BAG IVPB SCH ×2 (08:09→20:05)
[2019-04-12 08:34] LABS: BASO % 0.9 % (0-2.0); EOS % 7.9 % (0-4.5); HEMATOCRIT 33.7 % (32.4-45.2); HEMOGLOBIN 10.9 GM/dL (10.7-15.3); LYMPH % 22.9 % (8-40); MCH 27.5 pg (25.7-33.7); MCHC 32.3 g/dl (32.0-36.0); MEAN CELL VOLUME 85.2 fl (80-96); MEAN PLT VOLUME 7.7 fl (7.5-11.1); MONO % 10.4 % (3.8-10.2); NEUT % 57.9 % (42.8-82.8); PLATELET COUNT 284 K/MM3 (134-434); RBC 3.96 M/mm3 (3.60-5.2); WHITE BLOOD COUNT 7.9 K/mm3 (4.0-10.0)
[2019-04-12 09:01] LABS: INR 2.68 (0.83-1.09)
[2019-04-12 09:08] LABS: BLOOD UREA NITROGEN 21.3 mg/dL (7-18); CALCIUM 8.6 mg/dL (8.5-10.1); CREATININE 0.8 mg/dL (0.55-1.3); MAGNESIUM 2.2 mg/dL (1.8-2.4); PHOSPHOROUS 2.7 mg/dL (2.5-4.9); POTASSIUM 4.3 mmol/L (3.5-5.1)
[2019-04-12] MEDS: oxyCODONE HCL 5 MG TABLET PO PRN ×2 (09:20→23:58)
[2019-04-12] MEDS: FOLIC ACID 1 MG TABLET (FP) PO SCH (09:22)
[2019-04-12] MEDS: LOSARTAN POTASSIUM 25 MG TABLET PO SCH (09:22)
[2019-04-12] MEDS: LORATADINE 10 MG TABLET PO SCH (09:22)
[2019-04-12] MEDS: FUROSEMIDE 40 MG TABLET (FP) PO SCH (09:22)
[2019-04-12] MEDS: POTASSIUM CHLORIDE TABS 10 MEQ TABLET.ER (FP) PO SCH (09:22)
[2019-04-12] MEDS: MINERAL OIL/PET HY-PHL TOPICAL OINTMENT 454 GM JAR TP SCH (09:24)
[2019-04-12] MEDS: ALLOPURINOL 100 MG TABLET (FP) PO SCH (09:24)
[2019-04-12] MEDS: NYSTATIN POWDER 100,000 UNITS/GM - 15 GM TOPICAL POWDER TP SCH (09:24)
[2019-04-12] MEDS: TIOTROPIUM BROMIDE 2.5 MCG (SPIRIVA) RESPIMAT INHALER IH SCH (09:24)
[2019-04-12] MEDS: DIGOXIN 0.125 MG TABLET (FP) PO SCH (09:57)
--- NOTE | 2019-04-12 11:37 | PN ---
Progress Note (short form) - Note Progress Note: vac placed ambulated this am with PT to the door of her room she is tired Vital Signs Period Temp Pulse Resp BP Sys/Luke Pulse Ox Last 24 Hr 97.6 F-99.9 F 93-108 20-20 95-130/43-73 97 cor-rrr lungs clear abd soft,nt ext vac with surrounding erythema CBC, BMP 04/12/19 06:50 04/12/19 06:50 Microbiology 04/06/19 15:45 Blood - Peripheral Venous Blood Culture - Final NO GROWTH AFTER 5 DAYS INCUBATION 04/06/19 15:15 Blood - Peripheral Venous Blood Culture - Final NO GROWTH AFTER 5 DAYS INCUBATION 04/06/19 16:19 Leg - Left Lower Gram Stain - Final 04/06/19 16:19 Leg - Left Lower Wound Culture - Final Escherichia Coli Esbl Ballast Inspector Acinetobacter Baumannii/Haemol Proteus Mirabilis Enterococcus Faecalis Mr S Aureus 04/06/19 16:19 Urine - Urine Clean Catch Urine Culture - Final Escherichia Coli Esbl Ballast Inspector Enterococcus Faecium a/p cellulitis secondary to hematoma-somewhat improved-difficult to tell how much erythema is cellulitis, how much is due to hematoma and venous stasis low grade fevers resolved asymptomatic bacteriuria morbid obesity history of resistant organisms- mrsa/ecoli esbl-continue contact isolation antibioitic day #6 d/w dr marin Problem List - Problems (1) Wound infection Code(s): T14.8XXA - OTHER INJURY OF UNSPECIFIED BODY REGION, INITIAL ENCOUNTER; L08.9 - LOCAL INFECTION OF THE SKIN AND SUBCUTANEOUS TISSUE, UNSP (2) Asymptomatic bacteriuria Code(s): R82.71 - BACTERIURIA (3) Morbid obesity Code(s): E66.01 - MORBID (SEVERE) OBESITY DUE TO EXCESS CALORIES (4) 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
--- NOTE | 2019-04-12 13:13 | PN ---
Physical Exam: SUBJECTIVE: Patient seen and examined at bed side , no acute events , denies any fever , chills, N/V , had 2 BM , feeling better OBJECTIVE: Vital Signs Period Temp Pulse Resp BP Sys/Luke Pulse Ox Last 24 Hr 97.6 F-99.9 F 93-108 20-20 95-130/43-73 97 GENERAL: The patient is awake, alert, and fully oriented, in no acute distress. LUNGS: slightly expiratory wheezing this AM HEART: irreg, S1, S2 without murmur ABDOMEN: Soft, nontender, obese, lymphedematous skin changes, normoactive bowel sounds EXTREMITIES: RLE wrapped. LLE with 2x2cm deep hole. Clean margins, no induration. Some surrounding erythema, cac in place in left leg NEUROLOGICAL: AAOx3. Able to move all extremities. no focal deficit Laboratory Results - last 24 hr 04/11/19 04/11/19 04/11/19 16:36 18:00 21:01 WBC RBC Hgb Hct MCV MCH MCHC RDW Plt Count MPV Absolute Neuts (auto) Neutrophils % Lymphocytes % Monocytes % Eosinophils % Basophils % Nucleated RBC % PT with INR 38.10 H INR 3.19 H Sodium Potassium Chloride Carbon Dioxide Anion Gap BUN Creatinine Est GFR (CKD-EPI)AfAm Est GFR (CKD-EPI)NonAf POC Glucometer 142 195 Random Glucose Calcium Phosphorus Magnesium 04/12/19 04/12/19 04/12/19 06:30 06:50 06:50 WBC 7.9 RBC 3.96 Hgb 10.9 Hct 33.7 MCV 85.2 MCH 27.5 MCHC 32.3 RDW 19.0 H Plt Count 284 MPV 7.7 Absolute Neuts (auto) 4.6 Neutrophils % 57.9 Lymphocytes % 22.9 D Monocytes % 10.4 H Eosinophils % 7.9 H Basophils % 0.9 Nucleated RBC % 0 PT with INR INR Sodium 138 Potassium 4.3 Chloride 102 Carbon Dioxide 31 Anion Gap 5 L BUN 21.3 H Creatinine 0.8 Est GFR (CKD-EPI)AfAm 79.02 Est GFR (CKD-EPI)NonAf 68.18 POC Glucometer 139 Random Glucose 122 H Calcium 8.6 Phosphorus 2.7 Magnesium 2.2 04/12/19 04/12/19 06:50 11:51 WBC RBC Hgb Hct MCV MCH MCHC RDW Plt Count MPV Absolute Neuts (auto) Neutrophils % Lymphocytes % Monocytes % Eosinophils % Basophils % Nucleated RBC % PT with INR 32.00 H INR 2.68 H Sodium Potassium Chloride Carbon Dioxide Anion Gap BUN Creatinine Est GFR (CKD-EPI)AfAm Est GFR (CKD-EPI)NonAf POC Glucometer 150 Random Glucose Calcium Phosphorus Magnesium Active Medications Generic Name Dose Route Start Last Admin Trade Name Freq PRN Reason Stop Dose Admin Acetaminophen 325 mg 04/06/19 19:27 04/11/19 17:28 Tylenol - PO 325 mg Q6H PRN Administration PAIN SCALE 1-5 Allopurinol 100 mg 04/07/19 10:00 04/12/19 09:24 Zyloprim - PO 100 mg DAILY [facility] Administration Digoxin 0.125 mg 04/06/19 19:15 04/12/19 09:57 Lanoxin - PO 0.125 mg DAILY [facility] Administration Emollient Ointment 1 applic 04/09/19 10:00 04/12/19 09:24 Aquaphor - TP 1 applic DAILY [facility] Administration Folic Acid 1 mg 04/06/19 19:15 04/12/19 09:22 Folic Acid - PO 1 mg DAILY [facility] Administration Furosemide 40 mg 04/09/19 10:00 04/12/19 09:22 Lasix - PO 40 mg DAILY [facility] Administration Gabapentin 100 mg 04/06/19 22:00 04/12/19 06:32 Neurontin - PO 100 mg TID [facility] Administration Meropenem 1 gm/ Dextrose 100 mls @ 200 mls/hr 04/09/19 18:00 04/12/19 09:23 IVPB 200 mls/hr Q8H-IV [facility] Administration Vancomycin HCl 1,000 mg in 250 mls @ 166.667 mls/hr 04/10/19 08:04 04/12/19 08:09 Vancomycin (Pre-Docked) IVPB 166.667 mls/hr Q12H [facility] Administration Protocol Insulin Aspart 1 vial 04/07/19 23:00 04/12/19 11:52 Novolog Vial Sliding Scale - SQ Not Given ACHS [facility] Protocol Levothyroxine Sodium 50 mcg 04/07/19 07:00 04/12/19 06:32 Synthroid - PO 50 mcg AM [facility] Administration Loratadine 10 mg 04/07/19 10:00 04/12/19 09:22 Claritin - PO 10 mg DAILY [facility] Administration Losartan Potassium 25 mg 04/06/19 19:30 04/12/19 09:22 Cozaar - PO 25 mg DAILY [facility] Administration Nystatin 1 applic 04/07/19 10:00 04/12/19 09:24 Nystop Powder - TP 1 applic DAILY [facility] Administration Oxycodone HCl 5 mg 04/08/19 08:37 04/12/19 09:20 Roxicodone - PO 5 mg Q12H PRN Administration PAIN LEVEL 6-10 Potassium Chloride 30 meq 04/08/19 09:45 04/12/19 09:22 K-Dur - PO 30 meq DAILY [facility] Administration Tiotropium [place] 2 puff 04/07/19 10:00 04/12/19 09:24 Spiriva Respimat IH 2 puff DAILY [facility] Administration Warfarin Sodium 4 mg 04/07/19 23:00 04/11/19 20:48 Coumadin - PO Not Given SuTuWeThFrSa@1800 [facility] CBC, BMP 04/12/19 06:50 04/12/19 06:50 ASSESSMENT/PLAN: Pt is an 84 yo F with PMHx of COPD (2L), KATERINA, morbid obesity, NIDDM, Afib on coumadin, DVT, 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 * on meropenem and vanco was on vanc/zosyn stopped 04/06- 04/09, * ESBL in wound cx- pt switched to meropenem 04/09/19 * ID- Dr Jacques * Duplex LLE- negative DVT except post tibial not well visualized * Local wound dressing -done by surgical team/vascular * Per surgery-wound vac will be applied for change 3 times a week, pt will need home VNS services to change wound vac 3 times/week on dc * Coumadin resumed * Continue diet #Chronic RLE wound with dermatitis/venous stasis * Local wound dressing by podiatry, nail care * ID on case * Vanc/zosyn- Day 3 (stopped 04/09/19) cont meropenem and vanco 1 gm BID #Positive UA asymptomatic bacteriuria Has had ESBL UTI in past, Hold off treating Positive UA per ID #Persistent atrial fibrillation coumadin * cont Coumadin on hold for now pending procedure if needed * Therapeutic currently Seen by podiatry/sx, cont warfarin Cont dig Dig level- nl #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 * Med surg * possible DC to [facility] rehab or home with VNS Visit type - Emergency Visit Emergency Visit: Yes ED Registration Date: 04/06/19 Care time: The patient presented to the Emergency Department on the above date and was hospitalized for further evaluation of their emergent condition. - New Patient This patient is new to me today: Yes Date on this admission: 04/12/19 - Critical Care Critical Care patient: No ATTENDING PHYSICIAN STATEMENT I saw and evaluated the patient. I reviewed the resident's note and discussed the case with the resident. I agree with the resident's findings and plan as documented. SUBJECTIVE: OBJECTIVE: ASSESSMENT AND PLAN:
--- NOTE | 2019-04-12 15:23 | PN ---
Teaching Attending Note Name of Resident: Get Gagnon ATTENDING PHYSICIAN STATEMENT I saw and evaluated the patient. I reviewed the resident's note and discussed the case with the resident. I agree with the resident's findings and plan as documented. SUBJECTIVE: Ms Hanley says she is feeling well today. No cp, sob, n/v. OBJECTIVE: Last Vital Signs Temp Pulse Resp BP Pulse Ox 36.8 C 94 H 20 100/54 L 97 04/12/19 07:15 04/12/19 09:57 04/12/19 07:15 04/12/19 07:15 04/11/19 21:00 Gen: nad, morbidly obese Pulm: ctab w/o w/r/r CV: rrr w/o m/r/g Abd: +bs, s/nt/nd Ext: wound vac in place, erythema BLE CBC, BMP 04/12/19 06:50 04/12/19 06:50 ASSESSMENT AND PLAN: (1) Wound infection Assessment/Plan: -afebrile -wound vac in place Code(s): T14.8XXA - OTHER INJURY OF UNSPECIFIED BODY REGION, INITIAL ENCOUNTER; L08.9 - LOCAL INFECTION OF THE SKIN AND SUBCUTANEOUS TISSUE, UNSP (2) Cellulitis Assessment/Plan: -still with erythema -continue vancomycin and merrem day 6 -case d/w Dr Wright Code(s): L03.90 - CELLULITIS, UNSPECIFIED Qualifiers: Site of cellulitis: extremity Site of cellulitis of extremity: lower extremity Laterality: left Qualified Code(s): L03.116 - Cellulitis of left lower limb (3) Chronic venous stasis Assessment/Plan: -noted Code(s): I87.8 - OTHER SPECIFIED DISORDERS OF VEINS (4) Diabetes Assessment/Plan: -diabetic diet -FSBS and SSI Code(s): E11.9 - TYPE 2 DIABETES MELLITUS WITHOUT COMPLICATIONS Qualifiers: Diabetes mellitus type: type 2 Diabetes mellitus fpc insulin use: without fpc use Diabetes mellitus complication status: with hyperglycemia Qualified Code(s): E11.65 - Type 2 diabetes mellitus with hyperglycemia (5) HTN (hypertension) Assessment/Plan: -continue cozaar -continue lasix -well controlled Code(s): I10 - ESSENTIAL (PRIMARY) HYPERTENSION Qualifiers: Hypertension type: essential hypertension Qualified Code(s): I10 - Essential (primary) hypertension (6) Hypothyroidism Assessment/Plan: -continue synthroid Code(s): E03.9 - HYPOTHYROIDISM, UNSPECIFIED (7) Morbid obesity Assessment/Plan: -noted Code(s): E66.01 - MORBID (SEVERE) OBESITY DUE TO EXCESS CALORIES (8) UTI (lower urinary tract infection) Assessment/Plan: -asymptomatic bacteruria Code(s): N39.0 - URINARY TRACT INFECTION, SITE NOT SPECIFIED Dispo -suspect patient will need SNF, however patient currently declines -continue discussion Problem List - Problems (1) Wound infection Code(s): T14.8XXA - OTHER INJURY OF UNSPECIFIED BODY REGION, INITIAL ENCOUNTER; L08.9 - LOCAL INFECTION OF THE SKIN AND SUBCUTANEOUS TISSUE, UNSP (2) Cellulitis Code(s): L03.90 - CELLULITIS, UNSPECIFIED Qualifiers: Site of cellulitis: extremity Site of cellulitis of extremity: lower extremity Laterality: left Qualified Code(s): L03.116 - Cellulitis of left lower limb (3) Chronic venous stasis Code(s): I87.8 - OTHER SPECIFIED DISORDERS OF VEINS (4) Diabetes Code(s): E11.9 - TYPE 2 DIABETES MELLITUS WITHOUT COMPLICATIONS Qualifiers: Diabetes mellitus type: type 2 Diabetes mellitus fpc insulin use: without fpc use Diabetes mellitus complication status: with hyperglycemia Qualified Code(s): E11.65 - Type 2 diabetes mellitus with hyperglycemia (5) HTN (hypertension) Code(s): I10 - ESSENTIAL (PRIMARY) HYPERTENSION Qualifiers: Hypertension type: essential hypertension Qualified Code(s): I10 - Essential (primary) hypertension (6) Hypothyroidism Code(s): E03.9 - HYPOTHYROIDISM, UNSPECIFIED (7) Morbid obesity Code(s): E66.01 - MORBID (SEVERE) OBESITY DUE TO EXCESS CALORIES (8) UTI (lower urinary tract infection) Code(s): N39.0 - URINARY TRACT INFECTION, SITE NOT SPECIFIED
[2019-04-13] MEDS ORDERED: MEROPENEM 1 GM VIAL (RESTRICTED TO ID) IVPB ONE ×3 (01:01→17:22)
[2019-04-13] MEDS ORDERED: DEXTROSE 5%-WATER 100 ML IVPB ONE ×3 (01:01→17:22)
[2019-04-13] MEDS ORDERED: PT OWN MED DRAWER 7, Y5N ONE ×2 (01:07→10:14)
[2019-04-13] MEDS: MEROPENEM 1 GM in DEXTROSE 5%-WATER 100 ML IVPB SCH ×3 (01:16→17:25)
--- NOTE | 2019-04-13 05:12 | PN ---
Physical Exam: SUBJECTIVE: Patient seen and examined at bed side , denies any fever , chills, CP, sob but reports worsening leg pain after nurse shut down the vac due to peeping OBJECTIVE: Vital Signs Period Temp Pulse Resp BP Sys/Luke Pulse Ox Last 24 Hr 98 F-100.2 F 94-106 18-20 100-136/54-67 97 GENERAL: The patient is awake, alert, and fully oriented, in no acute distress. LUNGS: slightly expiratory wheezing this AM HEART: irreg, S1, S2 without murmur ABDOMEN: Soft, nontender, obese, lymphedematous skin changes, normoactive bowel sounds EXTREMITIES: RLE wrapped. LLE with 2x2cm deep hole. edematous margins around the vac , . Some surrounding erythema, Vac in place in left leg NEUROLOGICAL: AAOx3. Able to move all extremities. no focal deficit Laboratory Results - last 24 hr 04/12/19 04/12/19 04/12/19 06:30 06:50 06:50 WBC 7.9 RBC 3.96 Hgb 10.9 Hct 33.7 MCV 85.2 MCH 27.5 MCHC 32.3 RDW 19.0 H Plt Count 284 MPV 7.7 Absolute Neuts (auto) 4.6 Neutrophils % 57.9 Lymphocytes % 22.9 D Monocytes % 10.4 H Eosinophils % 7.9 H Basophils % 0.9 Nucleated RBC % 0 PT with INR INR Sodium 138 Potassium 4.3 Chloride 102 Carbon Dioxide 31 Anion Gap 5 L BUN 21.3 H Creatinine 0.8 Est GFR (CKD-EPI)AfAm 79.02 Est GFR (CKD-EPI)NonAf 68.18 POC Glucometer 139 Random Glucose 122 H Calcium 8.6 Phosphorus 2.7 Magnesium 2.2 04/12/19 04/12/19 04/12/19 06:50 11:51 16:39 WBC RBC Hgb Hct MCV MCH MCHC RDW Plt Count MPV Absolute Neuts (auto) Neutrophils % Lymphocytes % Monocytes % Eosinophils % Basophils % Nucleated RBC % PT with INR 32.00 H INR 2.68 H Sodium Potassium Chloride Carbon Dioxide Anion Gap BUN Creatinine Est GFR (CKD-EPI)AfAm Est GFR (CKD-EPI)NonAf POC Glucometer 150 142 Random Glucose Calcium Phosphorus Magnesium 04/12/19 20:33 WBC RBC Hgb Hct MCV MCH MCHC RDW Plt Count MPV Absolute Neuts (auto) Neutrophils % Lymphocytes % Monocytes % Eosinophils % Basophils % Nucleated RBC % PT with INR INR Sodium Potassium Chloride Carbon Dioxide Anion Gap BUN Creatinine Est GFR (CKD-EPI)AfAm Est GFR (CKD-EPI)NonAf POC Glucometer 159 Random Glucose Calcium Phosphorus Magnesium Active Medications Generic Name Dose Route Start Last Admin Trade Name Freq PRN Reason Stop Dose Admin Acetaminophen 325 mg 04/06/19 19:27 04/11/19 17:28 Tylenol - PO 325 mg Q6H PRN Administration PAIN SCALE 1-5 Allopurinol 100 mg 04/07/19 10:00 04/12/19 09:24 Zyloprim - PO 100 mg DAILY LYUDMILA Administration Digoxin 0.125 mg 04/06/19 19:15 04/12/19 09:57 Lanoxin - PO 0.125 mg DAILY LYUDMILA Administration Emollient Ointment 1 applic 04/09/19 10:00 04/12/19 09:24 Aquaphor - TP 1 applic DAILY LYUDMILA Administration Folic Acid 1 mg 04/06/19 19:15 04/12/19 09:22 Folic Acid - PO 1 mg DAILY LYUDMILA Administration Furosemide 40 mg 04/09/19 10:00 04/12/19 09:22 Lasix - PO 40 mg DAILY LYUDMILA Administration Gabapentin 100 mg 04/06/19 22:00 04/12/19 21:20 Neurontin - PO 100 mg TID LYUDMILA Administration Meropenem 1 gm/ Dextrose 100 mls @ 200 mls/hr 04/09/19 18:00 04/13/19 01:16 IVPB 200 mls/hr Q8H-IV LYUDMILA Administration Vancomycin HCl 1,000 mg in 250 mls @ 166.667 mls/hr 04/10/19 08:04 04/12/19 20:05 Vancomycin (Pre-Docked) IVPB 166.667 mls/hr Q12H LYUDMILA Administration Protocol Insulin Aspart 1 vial 04/07/19 23:00 04/12/19 21:26 Novolog Vial Sliding Scale - SQ 2 units ACHS LYUDMILA Administration Protocol Levothyroxine Sodium 50 mcg 04/07/19 07:00 04/12/19 06:32 Synthroid - PO 50 mcg AM LYUDMILA Administration Loratadine 10 mg 04/07/19 10:00 04/12/19 09:22 Claritin - PO 10 mg DAILY LYUDMILA Administration Losartan Potassium 25 mg 04/06/19 19:30 04/12/19 09:22 Cozaar - PO 25 mg DAILY LYUDMILA Administration Nystatin 1 applic 04/07/19 10:00 04/12/19 09:24 Nystop Powder - TP 1 applic DAILY LYUDMILA Administration Oxycodone HCl 5 mg 04/08/19 08:37 04/12/19 23:58 Roxicodone - PO 5 mg Q12H PRN Administration PAIN LEVEL 6-10 Potassium Chloride 30 meq 04/08/19 09:45 04/12/19 09:22 K-Dur - PO 30 meq DAILY LYUDMILA Administration Tiotropium [place] 2 puff 04/07/19 10:00 04/12/19 09:24 Spiriva Respimat IH 2 puff DAILY LYUDMILA Administration Warfarin Sodium 4 mg 04/07/19 23:00 04/11/19 20:48 Coumadin - PO Not Given SuTuWeThFrSa@1800 COUNT INCLUDES THE [facility] CBC, BMP 04/13/19 06:05 04/13/19 06:05 ASSESSMENT/PLAN: Pt is an 84 yo F with PMHx of COPD (2L), KATERINA, morbid obesity, NIDDM, Afib on coumadin, DVT, 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 * on meropenem and vanco was on vanc/zosyn stopped 04/06- 04/09, * ESBL in wound cx- pt switched to meropenem 04/09/19 * ID- Dr Jacques * Duplex LLE- negative DVT except post tibial not well visualized * Local wound dressing -done by surgical team/vascular * Per surgery-wound vac will be applied for change 3 times a week, pt will need home VNS services to change wound vac 3 times/week on dc * Coumadin resumed * Continue diet * f.u CT [facility] to r.o abscess #Chronic RLE wound with dermatitis/venous stasis * Local wound dressing by podiatry, nail care * ID on case * Vanc/zosyn- Day 3 (stopped 04/09/19) cont meropenem and vanco 1 gm BID #Positive UA * asymptomatic bacteriuria * Has had ESBL UTI in past, * Hold off treating Positive UA per ID #Persistent atrial fibrillation coumadin * cont Coumadin on hold for now pending procedure if needed * Therapeutic currently * Seen by podiatry/sx, cont warfarin * Cont dig,Dig level- nl #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 * Med surg * possible DC to [facility]hab or home with VNS Visit type - Emergency Visit Emergency Visit: Yes ED Registration Date: 04/06/19 Care time: The patient presented to the Emergency Department on the above date and was hospitalized for further evaluation of their emergent condition. - New Patient This patient is new to me today: No - Critical Care Critical Care patient: No ATTENDING PHYSICIAN STATEMENT I saw and evaluated the patient. I reviewed the resident's note and discussed the case with the resident. I agree with the resident's findings and plan as documented. SUBJECTIVE: OBJECTIVE: ASSESSMENT AND PLAN:
[2019-04-13] MEDS: GABAPENTIN 100 MG CAPSULE (FP) PO SCH ×3 (06:15→21:39)
[2019-04-13] MEDS: INSULIN SLIDING SCALE (NOVOLOG) 1 VIAL SQ SCH ×4 (06:15→21:39)
[2019-04-13] MEDS: LEVOTHYROXINE NA 50 MCG TABLET (FP) PO SCH (06:15)
[2019-04-13 07:53] LABS: EOS % 8.1 % (0-4.5); HEMATOCRIT 32.9 % (32.4-45.2); HEMOGLOBIN 10.8 GM/dL (10.7-15.3); LYMPH % 21.3 % (8-40); MCH 27.9 pg (25.7-33.7); MCHC 32.9 g/dl (32.0-36.0); MEAN CELL VOLUME 84.6 fl (80-96); MEAN PLT VOLUME 7.7 fl (7.5-11.1); MONO % 9.2 % (3.8-10.2); NEUT % 60.4 % (42.8-82.8); PLATELET COUNT 333 K/MM3 (134-434); RBC 3.89 M/mm3 (3.60-5.2); RDW 19.2 % (11.6-15.6); WHITE BLOOD COUNT 8.6 K/mm3 (4.0-10.0)
[2019-04-13] MEDS: VANCOMYCIN 1 GRAM (PRE-DOCKED) 1,000 MG/250 ML BAG IVPB SCH ×2 (08:13→21:39)
[2019-04-13 08:28] LABS: INR 1.89 (0.83-1.09); PROTHROMBIN TIME (PATIENT) 22.4 SEC (9.7-13.0)
[2019-04-13 08:37] LABS: ALBUMIN 2.2 g/dl (3.4-5.0); BILIRUBIN,TOTAL 0.7 mg/dL (0.2-1); BLOOD UREA NITROGEN 21.7 mg/dL (7-18); CALCIUM 8.4 mg/dL (8.5-10.1); CREATININE 0.7 mg/dL (0.55-1.3); POTASSIUM 4.1 mmol/L (3.5-5.1); TOT PROT 5.7 g/dl (6.4-8.2)
[2019-04-13] MEDS: FOLIC ACID 1 MG TABLET (FP) PO SCH (10:18)
[2019-04-13] MEDS: POTASSIUM CHLORIDE TABS 10 MEQ TABLET.ER (FP) PO SCH (10:18)
[2019-04-13] MEDS: LOSARTAN POTASSIUM 25 MG TABLET PO SCH (10:18)
[2019-04-13] MEDS: DIGOXIN 0.125 MG TABLET (FP) PO SCH (10:18)
[2019-04-13] MEDS: LORATADINE 10 MG TABLET PO SCH (10:18)
[2019-04-13] MEDS: ALLOPURINOL 100 MG TABLET (FP) PO SCH (10:19)
[2019-04-13] MEDS: FUROSEMIDE 40 MG TABLET (FP) PO SCH (10:19)
[2019-04-13] MEDS: TIOTROPIUM BROMIDE 2.5 MCG (SPIRIVA) RESPIMAT INHALER IH SCH (10:20)
[2019-04-13] MEDS: MINERAL OIL/PET HY-PHL TOPICAL OINTMENT 454 GM JAR TP SCH (10:22)
[2019-04-13] MEDS: NYSTATIN POWDER 100,000 UNITS/GM - 15 GM TOPICAL POWDER TP SCH (10:22)
--- NOTE | 2019-04-13 10:28 | PN ---
Progress Note (short form) - Note Progress Note: Hospitalist to document today. In spite of nearly 4 days of vac more swelling and erythema around vac site is noted. I asked for revisit Wound Care
[2019-04-13] MEDS: oxyCODONE HCL 5 MG TABLET PO PRN (10:34)
[2019-04-13] MEDS: ACETAMINOPHEN 325 MG TABLET (FP) PO PRN ×2 (10:35→16:42)
[2019-04-13] MEDS ORDERED: INSULIN (NOVOLOG) ASPART 100 UNITS/ML 10ML VIAL ONE (11:28)
[2019-04-13] MEDS: WARFARIN NA 2 MG TABLET (UD) PO SCH (17:33)
--- NOTE | 2019-04-13 17:53 | PN ---
Teaching Attending Note Name of Resident: Get Gagnon ATTENDING PHYSICIAN STATEMENT I saw and evaluated the patient. I reviewed the resident's note and discussed the case with the resident. I agree with the resident's findings and plan as documented. SUBJECTIVE: Ms Hanley says her LLE is hurting worse today. Denies cp, sob, n/v. RN at bedside states she turned off the wound vac because it was beeping OBJECTIVE: Last Vital Signs Temp Pulse Resp BP Pulse Ox 36.6 C 94 H 20 130/60 97 04/13/19 14:50 04/13/19 10:18 04/13/19 08:10 04/13/19 14:50 04/12/19 21:00 Gen: nad, obese Pulm: ctab w/o w/r/r CV: rrr w/o m/r/g Abd: +bs, s/nt/nd Ext: erythema of LLE, chronic venous stasis changes with new erythema. wound vac in place with developing edema above sponge CBC, BMP 04/13/19 06:05 04/13/19 06:05 ASSESSMENT AND PLAN: (1) Wound infection Assessment/Plan: -afebrile -wound vac in place -however now with possible fluid collection -will obtain CT scan LLE to evaluate for possible abscess Code(s): T14.8XXA - OTHER INJURY OF UNSPECIFIED BODY REGION, INITIAL ENCOUNTER; L08.9 - LOCAL INFECTION OF THE SKIN AND SUBCUTANEOUS TISSUE, UNSP (2) Cellulitis Assessment/Plan: -still with erythema -continue vancomycin and merrem day 7 Code(s): L03.90 - CELLULITIS, UNSPECIFIED Qualifiers: Site of cellulitis: extremity Site of cellulitis of extremity: lower extremity Laterality: left Qualified Code(s): L03.116 - Cellulitis of left lower limb (3) Chronic venous stasis Assessment/Plan: -noted Code(s): I87.8 - OTHER SPECIFIED DISORDERS OF VEINS (4) Diabetes Assessment/Plan: -diabetic diet -FSBS and SSI Code(s): E11.9 - TYPE 2 DIABETES MELLITUS WITHOUT COMPLICATIONS Qualifiers: Diabetes mellitus type: type 2 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: without correction use Diabetes mellitus complication status: with hyperglycemia Qualified Code(s): E11.65 - Type 2 diabetes mellitus with hyperglycemia (5) HTN (hypertension) Assessment/Plan: -continue cozaar -continue lasix -well controlled Code(s): I10 - ESSENTIAL (PRIMARY) HYPERTENSION Qualifiers: Hypertension type: essential hypertension Qualified Code(s): I10 - Essential (primary) hypertension (6) Hypothyroidism Assessment/Plan: -continue synthroid Code(s): E03.9 - HYPOTHYROIDISM, UNSPECIFIED (7) Morbid obesity Assessment/Plan: -noted Code(s): E66.01 - MORBID (SEVERE) OBESITY DUE TO EXCESS CALORIES (8) UTI (lower urinary tract infection) Assessment/Plan: -asymptomatic bacteruria Code(s): N39.0 - URINARY TRACT INFECTION, SITE NOT SPECIFIED Problem List - Problems (1) Wound infection Code(s): T14.8XXA - OTHER INJURY OF UNSPECIFIED BODY REGION, INITIAL ENCOUNTER; L08.9 - LOCAL INFECTION OF THE SKIN AND SUBCUTANEOUS TISSUE, UNSP (2) Cellulitis Code(s): L03.90 - CELLULITIS, UNSPECIFIED Qualifiers: Site of cellulitis: extremity Site of cellulitis of extremity: lower extremity Laterality: left Qualified Code(s): L03.116 - Cellulitis of left lower limb (3) Chronic venous stasis Code(s): I87.8 - OTHER SPECIFIED DISORDERS OF VEINS (4) Diabetes Code(s): E11.9 - TYPE 2 DIABETES MELLITUS WITHOUT COMPLICATIONS Qualifiers: Diabetes mellitus type: type 2 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
[2019-04-14] MEDS ORDERED: DEXTROSE 5%-WATER 100 ML IVPB ONE ×3 (01:14→16:45)
[2019-04-14] MEDS ORDERED: MEROPENEM 1 GM VIAL (RESTRICTED TO ID) IVPB ONE ×3 (01:14→16:44)
[2019-04-14] MEDS: oxyCODONE HCL 5 MG TABLET PO PRN (01:29)
[2019-04-14] MEDS: MEROPENEM 1 GM in DEXTROSE 5%-WATER 100 ML IVPB SCH ×3 (01:31→17:42)
[2019-04-14] MEDS ORDERED: INSULIN (NOVOLOG) ASPART 100 UNITS/ML 10ML VIAL ONE (06:14)
[2019-04-14] MEDS: GABAPENTIN 100 MG CAPSULE (FP) PO SCH ×3 (06:32→22:17)
[2019-04-14] MEDS: INSULIN SLIDING SCALE (NOVOLOG) 1 VIAL SQ SCH ×4 (06:32→22:17)
[2019-04-14] MEDS: LEVOTHYROXINE NA 50 MCG TABLET (FP) PO SCH (06:32)
[2019-04-14 07:48] LABS: BASO % 0.9 % (0-2.0); EOS % 7.3 % (0-4.5); HEMATOCRIT 33.4 % (32.4-45.2); HEMOGLOBIN 10.9 GM/dL (10.7-15.3); LYMPH % 18.1 % (8-40); MCH 27.5 pg (25.7-33.7); MCHC 32.6 g/dl (32.0-36.0); MEAN CELL VOLUME 84.3 fl (80-96); MEAN PLT VOLUME 7.7 fl (7.5-11.1); MONO % 7.7 % (3.8-10.2); PLATELET COUNT 359 K/MM3 (134-434); RBC 3.96 M/mm3 (3.60-5.2); RDW 19.3 % (11.6-15.6); WHITE BLOOD COUNT 8.3 K/mm3 (4.0-10.0)
--- NOTE | 2019-04-14 08:47 | PN ---
Progress Note (short form) - Note Progress Note: Hospitalist to document today. CAT: Large collection of fluid left calf in spite of Vac; await surgical followup.
[2019-04-14 09:06] LABS: ALBUMIN 2.2 g/dl (3.4-5.0); BILIRUBIN,TOTAL 0.7 mg/dL (0.2-1); BLOOD UREA NITROGEN 21.3 mg/dL (7-18); CALCIUM 8.7 mg/dL (8.5-10.1); CREATININE 0.6 mg/dL (0.55-1.3); POTASSIUM 4.5 mmol/L (3.5-5.1); TOT PROT 5.9 g/dl (6.4-8.2)
--- NOTE | 2019-04-14 09:11 | PN ---
Physical Exam: SUBJECTIVE: Patient seen and examined reports worsening left leg pain with local swelling around the vac denies any fever , chills, CP, sob OBJECTIVE: Vital Signs Period Temp Pulse Resp BP Sys/Luke Pulse Ox Last 24 Hr 97.8 F-99.2 F 80-96 20-20 110-130/60-75 97 GENERAL: The patient is awake, alert, and fully oriented, in no acute distress. LUNGS: slightly expiratory wheezing this AM HEART: irreg, S1, S2 without murmur ABDOMEN: Soft, nontender, obese, lymphedematous skin changes, normoactive bowel sounds EXTREMITIES: RLE wrapped. LLE with 2x2cm deep hole. edematous margins around the vac , . Some surrounding erythema, Vac in place in left leg , swollen around the vac 5/3 cm NEUROLOGICAL: AAOx3. Able to move all extremities. no focal deficit Laboratory Results - last 24 hr 04/13/19 04/13/19 04/13/19 11:35 16:45 20:54 WBC RBC Hgb Hct MCV MCH MCHC RDW Plt Count MPV Absolute Neuts (auto) Neutrophils % Lymphocytes % Monocytes % Eosinophils % Basophils % Nucleated RBC % Sodium Potassium Chloride Carbon Dioxide Anion Gap BUN Creatinine Est GFR (CKD-EPI)AfAm Est GFR (CKD-EPI)NonAf POC Glucometer 147 148 177 Random Glucose Calcium Total Bilirubin AST ALT Alkaline Phosphatase Total Protein Albumin 04/14/19 04/14/19 04/14/19 05:56 06:00 06:00 WBC 8.3 RBC 3.96 Hgb 10.9 Hct 33.4 MCV 84.3 MCH 27.5 MCHC 32.6 RDW 19.3 H Plt Count 359 MPV 7.7 Absolute Neuts (auto) 5.5 Neutrophils % 66.0 Lymphocytes % 18.1 Monocytes % 7.7 Eosinophils % 7.3 H Basophils % 0.9 Nucleated RBC % 0 Sodium 140 Potassium 4.5 Chloride 104 Carbon Dioxide 29 Anion Gap 7 L BUN 21.3 H Creatinine 0.6 Est GFR (CKD-EPI)AfAm 97.69 Est GFR (CKD-EPI)NonAf 84.29 POC Glucometer 117 Random Glucose 99 Calcium 8.7 Total Bilirubin 0.7 AST 25 ALT 14 Alkaline Phosphatase 107 Total Protein 5.9 L Albumin 2.2 L Active Medications Generic Name Dose Route Start Last Admin Trade Name Freq PRN Reason Stop Dose Admin Acetaminophen 325 mg 04/06/19 19:27 04/13/19 16:42 Tylenol - PO 325 mg Q6H PRN Administration PAIN SCALE 1-5 Allopurinol 100 mg 04/07/19 10:00 04/13/19 10:19 Zyloprim - PO 100 mg DAILY LYUDMILA Administration Digoxin 0.125 mg 04/06/19 19:15 04/13/19 10:18 Lanoxin - PO 0.125 mg DAILY LYUDMILA Administration Emollient Ointment 1 applic 04/09/19 10:00 04/13/19 10:22 Aquaphor - TP 1 applic DAILY LYUDMILA Administration Folic Acid 1 mg 04/06/19 19:15 04/13/19 10:18 Folic Acid - PO 1 mg DAILY LYUDMILA Administration Furosemide 40 mg 04/09/19 10:00 04/13/19 10:19 Lasix - PO 40 mg DAILY LYUDMILA Administration Gabapentin 100 mg 04/06/19 22:00 04/14/19 06:32 Neurontin - PO 100 mg TID LYUDMILA Administration Meropenem 1 gm/ Dextrose 100 mls @ 200 mls/hr 04/09/19 18:00 04/14/19 01:31 IVPB 200 mls/hr Q8H-IV LYUDMILA Administration Vancomycin HCl 1,000 mg in 250 mls @ 166.667 mls/hr 04/10/19 08:04 04/13/19 21:39 Vancomycin (Pre-Docked) IVPB 166.667 mls/hr Q12H LYUDMILA Administration Protocol Insulin Aspart 1 vial 04/07/19 23:00 04/14/19 06:32 Novolog Vial Sliding Scale - SQ Not Given ACHS [facility] Protocol Levothyroxine Sodium 50 mcg 04/07/19 07:00 04/14/19 06:32 Synthroid - PO 50 mcg AM LYUDMILA Administration Loratadine 10 mg 04/07/19 10:00 04/13/19 10:18 Claritin - PO 10 mg DAILY LYUDMILA Administration Losartan Potassium 25 mg 04/06/19 19:30 04/13/19 10:18 Cozaar - PO 25 mg DAILY LYUDMILA Administration Nystatin 1 applic 04/07/19 10:00 04/13/19 10:22 Nystop Powder - TP 1 applic DAILY LYUDMILA Administration Oxycodone HCl 5 mg 04/08/19 08:37 04/14/19 01:29 Roxicodone - PO 5 mg Q12H PRN Administration PAIN LEVEL 6-10 Potassium Chloride 30 meq 04/08/19 09:45 04/13/19 10:18 K-Dur - PO 30 meq DAILY LYUDMILA Administration Tiotropium [place] 2 puff 04/07/19 10:00 04/13/19 10:20 Spiriva Respimat IH 2 puff DAILY LYUDMILA Administration Warfarin Sodium 4 mg 04/07/19 23:00 04/13/19 17:33 Coumadin - PO 4 mg SuTuWeThFrSa@1800 LYUDMILA Administration CBC, BMP 04/14/19 06:00 04/14/19 06:00 ASSESSMENT/PLAN: Pt is an 84 yo F with PMHx of COPD (2L), KATERINA, morbid obesity, NIDDM, Afib on coumadin, DVT, 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 * on meropenem and vanco was on vanc/zosyn stopped 04/06- 04/09, * ESBL in wound cx- pt switched to meropenem 04/09/19 * ID- Dr Jacques * Duplex LLE- negative DVT except post tibial not well visualized * Local wound dressing -done by surgical team/vascular * Per surgery-wound vac will be applied for change 3 times a week, pt will need home VNS services to change wound vac 3 times/week on dc * Coumadin resumed * Continue diet * f.u CT LLE showes fluid collection , consulted surgery Ryan MCKEON for I&D #Chronic RLE wound with dermatitis/venous stasis * Local wound dressing by podiatry, nail care * ID on case * Vanc/zosyn- Day 3 (stopped 04/09/19) cont meropenem and vanco 1 gm BID #Positive UA * asymptomatic bacteriuria * Has had ESBL UTI in past, * Hold off treating Positive UA per ID #Persistent atrial fibrillation coumadin * cont Coumadin on hold for now pending procedure if needed * Therapeutic currently * Seen by podiatry/sx, cont warfarin * Cont dig,Dig level- nl #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 * Med surg Visit type - Emergency Visit Emergency Visit: Yes ED Registration Date: 04/06/19 Care time: The patient presented to the Emergency Department on the above date and was hospitalized for further evaluation of their emergent condition. - New Patient This patient is new to me today: No - Critical Care Critical Care patient: No ATTENDING PHYSICIAN STATEMENT I saw and evaluated the patient. I reviewed the resident's note and discussed the case with the resident. I agree with the resident's findings and plan as documented. SUBJECTIVE: OBJECTIVE: ASSESSMENT AND PLAN:
[2019-04-14] MEDS: VANCOMYCIN 1 GRAM (PRE-DOCKED) 1,000 MG/250 ML BAG IVPB SCH ×2 (10:51→22:17)
[2019-04-14] MEDS: POTASSIUM CHLORIDE TABS 10 MEQ TABLET.ER (FP) PO SCH (10:51)
[2019-04-14] MEDS: LORATADINE 10 MG TABLET PO SCH (10:51)
[2019-04-14] MEDS: ALLOPURINOL 100 MG TABLET (FP) PO SCH (10:51)
[2019-04-14] MEDS: FUROSEMIDE 40 MG TABLET (FP) PO SCH (10:51)
[2019-04-14] MEDS: LOSARTAN POTASSIUM 25 MG TABLET PO SCH (10:51)
[2019-04-14] MEDS: DIGOXIN 0.125 MG TABLET (FP) PO SCH (10:52)
[2019-04-14] MEDS: FOLIC ACID 1 MG TABLET (FP) PO SCH (10:52)
[2019-04-14] MEDS: TIOTROPIUM BROMIDE 2.5 MCG (SPIRIVA) RESPIMAT INHALER IH SCH (10:54)
[2019-04-14] MEDS: MINERAL OIL/PET HY-PHL TOPICAL OINTMENT 454 GM JAR TP SCH (10:56)
[2019-04-14] MEDS: NYSTATIN POWDER 100,000 UNITS/GM - 15 GM TOPICAL POWDER TP SCH (10:56)
[2019-04-14] MEDS ORDERED: LIDOCAINE 2%/EPINEPHRINE 1:100000 (50 ML MD VIAL) NR ONE (13:45)
[2019-04-14] MEDS ORDERED: morphine SULFATE 4 MG/ML VIAL IVPUSH ONE (13:45)
--- NOTE | 2019-04-14 14:09 | PROC ---
Incision and Drainage Indication/Location: Patient's LLE wound presently under the care of Dr. Tee Dugan. However, he is away and patient had a LLE CT scan yesterday which identified a larger fluid collection proximal but not communicating with current wound under VAC therapy. Risks and Benefits Explained: Yes Consent on Chart: Yes Betadine cleansed: Yes Anesthesia: 1% Lidocaine w/ Epi Blade Size: 10 Drainage: 20ml old/clotted blood and fat necrosis Irrigated with Normal Saline: Yes (250mL) - Remarks Remarks: Incision carried proximally about 2" from current wound. Digitally probed followed by mechanical debridement and copious irrigation. New wound VAC dressing applied. Cont dressing changes as ordered per Dr. Dugan.
[2019-04-14 17:16] LABS: INR 1.63 (0.83-1.09); PROTHROMBIN TIME (PATIENT) 19.3 SEC (9.7-13.0)
[2019-04-14] MEDS: WARFARIN NA 2 MG TABLET (UD) PO SCH (18:04)
--- NOTE | 2019-04-14 18:30 | PN ---
Teaching Attending Note Name of Resident: Get Gagnon ATTENDING PHYSICIAN STATEMENT I saw and evaluated the patient. I reviewed the resident's note and discussed the case with the resident. I agree with the resident's findings and plan as documented with exceptions below. SUBJECTIVE: Patient seen and examined. still with left calf/leg pain. No new fevers, chills or concerns. OBJECTIVE: Vital Signs Period Temp Pulse Resp BP Sys/Luke Pulse Ox Last 24 Hr 98 F-99.2 F 80-100 18-20 110-125/56-75 97 Intake & Output 04/11/19 04/12/19 04/13/19 04/14/19 23:59 23:59 23:59 23:59 Intake Total 4671 009 6757 650 Balance 0920 390 9900 650 Weight 267 lb 12.8 oz 269 lb 2 oz 270 lb 270 lb 1 oz General: lying in bed in no acute distress, morbidly obese, BMI 44.9 Chest: limited by body habitus Abdomen:soft, obese, NT Extremities: Left leg: wound vac upper left calf, area of swelling tenderness overlying erythema around the vac, chronic RLE findings unchanged Home Medications Medication Instructions Recorded Allopurinol [Zyloprim -] 100 mg PO DAILY 12/10/18 Digoxin [Lanoxin -] 0.125 mg PO DAILY 12/10/18 Folic Acid 1 mg PO DAILY 12/10/18 Furosemide 40 mg PO BID 12/10/18 Gabapentin 100 mg PO TID 12/10/18 Levothyroxine [Synthroid -] 50 mcg PO DAILY 12/10/18 Losartan Potassium 25 mg PO DAILY 12/10/18 Warfarin Sodium 4 mg PO ASDIR MDD 2mg/4 mg 12/10/18 everyother day Albuterol 0.083% Nebulizer Bonnie 1 amp NEB QID 30 Days #1 amp 12/13/18 [Ventolin 0.083% Nebulizer Soln -] Insulin Sliding Scale [Novolog 1 vial SQ ACHS #1 units 12/13/18 Vial Sliding Scale -] Tiotropium Mears [Spiriva 2 puff IH DAILY #30 inhaler 12/13/18 Respimat] Acetaminophen [Tylenol .Regular 325 mg PO PRN PRN 04/06/19 Strength -] Loratadine 10 mg PO DAILY 04/06/19 Mineral Oil/Hydrophil Petrolat 1 applic TP DAILY 04/06/19 [Dermaphor Ointment] Nystatin Powder [Nystop Powder -] 1 applic TP DAILY 04/06/19 Potassium Chloride 30 meq PO DAILY 04/06/19 Active Medications Acetaminophen (Tylenol -) 325 mg PO Q6H PRN PRN Reason: PAIN SCALE 1-5 Last Admin: 04/13/19 16:42 Dose: 325 mg Allopurinol (Zyloprim -) 100 mg PO DAILY LYUDMILA Last Admin: 04/14/19 10:51 Dose: 100 mg Digoxin (Lanoxin -) 0.125 mg PO DAILY LYUDMILA Last Admin: 04/14/19 10:52 Dose: 0.125 mg Emollient Ointment (Aquaphor -) 1 applic TP DAILY [facility] Last Admin: 04/14/19 10:56 Dose: 1 applic Folic Acid (Folic Acid -) 1 mg PO DAILY [facility] Last Admin: 04/14/19 10:52 Dose: 1 mg Furosemide (Lasix -) 40 mg PO DAILY LYUDMILA Last Admin: 04/14/19 10:51 Dose: 40 mg Gabapentin (Neurontin -) 100 mg PO TID LYUDMILA Last Admin: 04/14/19 14:48 Dose: 100 mg Meropenem 1 gm/ Dextrose 100 mls @ 200 mls/hr IVPB Q8H-IV LYUDMILA Last Admin: 04/14/19 17:42 Dose: 200 mls/hr Vancomycin HCl (Vancomycin (Pre-Docked)) 1,000 mg in 250 mls @ 166.667 mls/hr IVPB Q12H LYUDMILA; Protocol Last Admin: 04/14/19 10:51 Dose: 166.667 mls/hr Insulin Aspart (Novolog Vial Sliding Scale -) 1 vial SQ ACHS [facility]; Protocol Last Admin: 04/14/19 17:53 Dose: 2 units Levothyroxine Sodium (Synthroid -) 50 mcg PO AM LYUDMILA Last Admin: 04/14/19 06:32 Dose: 50 mcg Loratadine (Claritin -) 10 mg PO DAILY LYUDMILA Last Admin: 04/14/19 10:51 Dose: 10 mg Losartan Potassium (Cozaar -) 25 mg PO DAILY [facility] Last Admin: 04/14/19 10:51 Dose: 25 mg Nystatin (Nystop Powder -) 1 applic TP DAILY [facility] Last Admin: 04/14/19 10:56 Dose: 1 applic Oxycodone HCl (Roxicodone -) 5 mg PO Q12H PRN PRN Reason: PAIN LEVEL 6-10 Last Admin: 04/14/19 01:29 Dose: 5 mg Potassium Chloride (K-Dur -) 30 meq PO DAILY [facility] Last Admin: 04/14/19 10:51 Dose: 30 meq Tiotropium Mears (Spiriva Respimat) 2 puff IH DAILY [facility] Last Admin: 04/14/19 10:54 Dose: 2 puff Warfarin Sodium (Coumadin -) 4 mg PO [id number] [facility] Last Admin: 04/14/19 18:04 Dose: 4 mg Laboratory Results - last 24 hr 04/13/19 04/14/19 04/14/19 20:54 05:56 06:00 WBC 8.3 RBC 3.96 Hgb 10.9 Hct 33.4 MCV 84.3 MCH 27.5 MCHC 32.6 RDW 19.3 H Plt Count 359 MPV 7.7 Absolute Neuts (auto) 5.5 Neutrophils % 66.0 Lymphocytes % 18.1 Monocytes % 7.7 Eosinophils % 7.3 H Basophils % 0.9 Nucleated RBC % 0 PT with INR INR Sodium Potassium Chloride Carbon Dioxide Anion Gap BUN Creatinine Est GFR (CKD-EPI)AfAm Est GFR (CKD-EPI)NonAf POC Glucometer 177 117 Random Glucose Calcium Total Bilirubin AST ALT Alkaline Phosphatase Total Protein Albumin 04/14/19 04/14/19 04/14/19 06:00 12:13 16:00 WBC RBC Hgb Hct MCV MCH MCHC RDW Plt Count MPV Absolute Neuts (auto) Neutrophils % Lymphocytes % Monocytes % Eosinophils % Basophils % Nucleated RBC % PT with INR 19.30 H INR 1.63 H Sodium 140 Potassium 4.5 Chloride 104 Carbon Dioxide 29 Anion Gap 7 L BUN 21.3 H Creatinine 0.6 Est GFR (CKD-EPI)AfAm 97.69 Est GFR (CKD-EPI)NonAf 84.29 POC Glucometer 155 Random Glucose 99 Calcium 8.7 Total Bilirubin 0.7 AST 25 ALT 14 Alkaline Phosphatase 107 Total Protein 5.9 L Albumin 2.2 L 04/14/19 17:46 WBC RBC Hgb Hct MCV MCH MCHC RDW Plt Count MPV Absolute Neuts (auto) Neutrophils % Lymphocytes % Monocytes % Eosinophils % Basophils % Nucleated RBC % PT with INR INR Sodium Potassium Chloride Carbon Dioxide Anion Gap BUN Creatinine Est GFR (CKD-EPI)AfAm Est GFR (CKD-EPI)NonAf POC Glucometer 175 Random Glucose Calcium Total Bilirubin AST ALT Alkaline Phosphatase Total Protein Albumin Microbiology 04/06/19 15:45 Blood - Peripheral Venous Blood Culture - Final NO GROWTH AFTER 5 DAYS INCUBATION 04/06/19 15:15 Blood - Peripheral Venous Blood Culture - Final NO GROWTH AFTER 5 DAYS INCUBATION 04/06/19 16:19 Leg - Left Lower Gram Stain - Final 04/06/19 16:19 Leg - Left Lower Wound Culture - Final Escherichia Coli Esbl [employer] Acinetobacter Baumannii/Haemol Proteus Mirabilis Enterococcus Faecalis Mr S Aureus 04/06/19 16:19 Urine - Urine Clean Catch Urine Culture - Final Escherichia Coli Esbl [employer] Enterococcus Faecium ASSESSMENT AND PLAN: 84 yof with PMhx of LE wounds followed at Wound care center, with multiple polymicrobial infection, 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 Concerns for non functioning wound vac for [address] Wound vac reconnected. Could be the etiology of the swelling. Surgery input appreciated. Bedside debridement, wound vac replaced, monitor for now. ID input noted. Meropenem/vanco day 8, Wound/urine cx noted, continue per ID. Warfarin with INR checks. lasix/digoxin/losartan DVTPPX on warfarin dispo pending clinical improvement. May need SNF on Dc if patient agreable. PT eval.
[2019-04-15] MEDS ORDERED: MEROPENEM 1 GM VIAL (RESTRICTED TO ID) IVPB ONE ×2 (00:59→10:58)
[2019-04-15] MEDS ORDERED: DEXTROSE 5%-WATER 100 ML IVPB ONE ×2 (00:59→10:58)
[2019-04-15] MEDS: MEROPENEM 1 GM in DEXTROSE 5%-WATER 100 ML IVPB SCH ×2 (01:19→11:14)
[2019-04-15] MEDS: INSULIN SLIDING SCALE (NOVOLOG) 1 VIAL SQ SCH ×4 (06:11→21:43)
[2019-04-15] MEDS: LEVOTHYROXINE NA 50 MCG TABLET (FP) PO SCH (06:11)
[2019-04-15] MEDS: GABAPENTIN 100 MG CAPSULE (FP) PO SCH ×3 (06:11→21:42)
[2019-04-15 07:06] LABS: EOS % 6.5 % (0-4.5); HEMATOCRIT 33.4 % (32.4-45.2); HEMOGLOBIN 10.9 GM/dL (10.7-15.3); LYMPH % 22.7 % (8-40); MCH 27.6 pg (25.7-33.7); MCHC 32.7 g/dl (32.0-36.0); MEAN CELL VOLUME 84.5 fl (80-96); MEAN PLT VOLUME 7.6 fl (7.5-11.1); MONO % 9.1 % (3.8-10.2); NEUT % 60.7 % (42.8-82.8); PLATELET COUNT 359 K/MM3 (134-434); RBC 3.95 M/mm3 (3.60-5.2); RDW 18.6 % (11.6-15.6); WHITE BLOOD COUNT 7.5 K/mm3 (4.0-10.0)
[2019-04-15 07:17] LABS: ALBUMIN 2.2 g/dl (3.4-5.0); BILIRUBIN,TOTAL 0.5 mg/dL (0.2-1); CALCIUM 8.7 mg/dL (8.5-10.1); CREATININE 0.7 mg/dL (0.55-1.3); MAGNESIUM 2.2 mg/dL (1.8-2.4); PHOSPHOROUS 2.8 mg/dL (2.5-4.9); POTASSIUM 4.9 mmol/L (3.5-5.1); TOT PROT 5.9 g/dl (6.4-8.2)
--- NOTE | 2019-04-15 08:57 | PN ---
Progress Note (short form) - Note Progress Note: Hospitalist to document today. Appreciate Surgical S[employer]IOR TAX MANAGER work with I&D of new pocket of fluid left calf. A. Fib; will have to get INR at necessary level.
[2019-04-15 09:52] LABS: ERYTHROCYTE SEDIMENTATION RATE 97 mm/hr (0-30)
[2019-04-15 10:07] LABS: INR 1.65 (0.83-1.09); PROTHROMBIN TIME (PATIENT) 19.6 SEC (9.7-13.0)
--- NOTE | 2019-04-15 10:55 | PN ---
Physical Exam: SUBJECTIVE: Patient seen and examined at bed side , no new complain ,leg swelling improving , S.P I&D. no fever no chills. OBJECTIVE: GENERAL: The patient is awake, alert, and fully oriented, in no acute distress. LUNGS: slightly expiratory wheezing this AM HEART: irreg, S1, S2 without murmur ABDOMEN: Soft, nontender, obese, lymphedematous skin changes, normoactive bowel sounds EXTREMITIES: RLE wrapped. LLE with 2x2cm deep hole. edematous margins around the vac ,Some surrounding erythema, Vac in place in left leg , swollen around the vac 5/3 cm improving NEUROLOGICAL: AAOx3. Able to move all extremities. no focal deficit Vital Signs Period Temp Pulse Resp BP Sys/Luke Pulse Ox Last 24 Hr 98.2 F-98.4 F 78-100 18-20 104-125/61-70 GENERAL: The patient is awake, alert, and fully oriented, in no acute distress. HEAD: Normal with no signs of trauma. EYES: PERRL, extraocular movements intact, sclera anicteric, conjunctiva clear. No ptosis. ENT: Ears normal, nares patent, oropharynx clear without exudates, moist mucous membranes. NECK: Trachea midline, full range of motion, supple. LUNGS: Breath sounds equal, clear to auscultation bilaterally, no wheezes, no crackles, no accessory muscle use. HEART: Regular rate and rhythm, S1, S2 without murmur, rub or gallop. ABDOMEN: Soft, nontender, nondistended, normoactive bowel sounds, no guarding, no rebound, no hepatosplenomegaly, no masses. EXTREMITIES: 2+ pulses, warm, well-perfused, no edema. NEUROLOGICAL: Cranial nerves II through XII grossly intact. Normal speech, gait not observed. PSYCH: Normal mood, normal affect. SKIN: Warm, dry, normal turgor, no rashes or lesions noted Laboratory Results - last 24 hr 04/14/19 04/14/19 04/14/19 12:13 16:00 17:46 WBC RBC Hgb Hct MCV MCH MCHC RDW Plt Count MPV Absolute Neuts (auto) Neutrophils % Lymphocytes % Monocytes % Eosinophils % Basophils % Nucleated RBC % ESR PT with INR 19.30 H INR 1.63 H Sodium Potassium Chloride Carbon Dioxide Anion Gap BUN Creatinine Est GFR (CKD-EPI)AfAm Est GFR (CKD-EPI)NonAf POC Glucometer 155 175 Random Glucose Calcium Phosphorus Magnesium Total Bilirubin AST ALT Alkaline Phosphatase C-Reactive Protein Total Protein Albumin Vancomycin Pre-Dose 04/14/19 04/15/19 04/15/19 22:16 05:05 05:05 WBC RBC Hgb Hct MCV MCH MCHC RDW Plt Count MPV Absolute Neuts (auto) Neutrophils % Lymphocytes % Monocytes % Eosinophils % Basophils % Nucleated RBC % ESR PT with INR INR Sodium 141 Potassium 4.9 Chloride 103 Carbon Dioxide 34 H Anion Gap 4 L BUN 20.0 H Creatinine 0.7 Est GFR (CKD-EPI)AfAm 92.86 Est GFR (CKD-EPI)NonAf 80.12 POC Glucometer 144 Random Glucose 164 H Calcium 8.7 Phosphorus 2.8 Magnesium 2.2 Total Bilirubin 0.5 AST 21 ALT 13 Alkaline Phosphatase 105 C-Reactive Protein 4.9 H Total Protein 5.9 L Albumin 2.2 L Vancomycin Pre-Dose 21.7 04/15/19 04/15/19 04/15/19 05:05 05:54 09:15 WBC 7.5 RBC 3.95 Hgb 10.9 Hct 33.4 MCV 84.5 MCH 27.6 MCHC 32.7 RDW 18.6 H Plt Count 359 MPV 7.6 Absolute Neuts (auto) 4.5 Neutrophils % 60.7 Lymphocytes % 22.7 D Monocytes % 9.1 Eosinophils % 6.5 H Basophils % 1.0 Nucleated RBC % 0 ESR 97 H PT with INR 19.60 H INR 1.65 H Sodium Potassium Chloride Carbon Dioxide Anion Gap BUN Creatinine Est GFR (CKD-EPI)AfAm Est GFR (CKD-EPI)NonAf POC Glucometer 161 Random Glucose Calcium Phosphorus Magnesium Total Bilirubin AST ALT Alkaline Phosphatase C-Reactive Protein Total Protein Albumin Vancomycin Pre-Dose Active Medications Generic Name Dose Route Start Last Admin Trade Name Freq PRN Reason Stop Dose Admin Acetaminophen 325 mg 04/06/19 19:27 04/13/19 16:42 Tylenol - PO 325 mg Q6H PRN Administration PAIN SCALE 1-5 Allopurinol 100 mg 04/07/19 10:00 04/14/19 10:51 Zyloprim - PO 100 mg DAILY LYUDMILA Administration Digoxin 0.125 mg 04/06/19 19:15 04/14/19 10:52 Lanoxin - PO 0.125 mg DAILY LYUDMILA Administration Emollient Ointment 1 applic 04/09/19 10:00 04/14/19 10:56 Aquaphor - TP 1 applic DAILY LYUDMILA Administration Folic Acid 1 mg 04/06/19 19:15 04/14/19 10:52 Folic Acid - PO 1 mg DAILY LYUDMILA Administration Furosemide 40 mg 04/09/19 10:00 04/14/19 10:51 Lasix - PO 40 mg DAILY LYUDMILA Administration Gabapentin 100 mg 04/06/19 22:00 04/15/19 06:11 Neurontin - PO 100 mg TID LYUDMILA Administration Meropenem 1 gm/ Dextrose 100 mls @ 200 mls/hr 04/09/19 18:00 04/15/19 01:19 IVPB 200 mls/hr Q8H-IV LYUDMILA Administration Vancomycin HCl 1,000 mg in 250 mls @ 166.667 mls/hr 04/10/19 08:04 04/14/19 22:17 Vancomycin (Pre-Docked) IVPB 166.667 mls/hr Q12H LYUDMILA Administration Protocol Insulin Aspart 1 vial 04/07/19 23:00 04/15/19 06:11 Novolog Vial Sliding Scale - SQ 2 units ACHS LYUDMILA Administration Protocol Levothyroxine Sodium 50 mcg 04/07/19 07:00 04/15/19 06:11 Synthroid - PO 50 mcg AM LYUDMILA Administration Loratadine 10 mg 04/07/19 10:00 04/14/19 10:51 Claritin - PO 10 mg DAILY LYUDMILA Administration Losartan Potassium 25 mg 04/06/19 19:30 04/14/19 10:51 Cozaar - PO 25 mg DAILY LYUDMILA Administration Nystatin 1 applic 04/07/19 10:00 04/14/19 10:56 Nystop Powder - TP 1 applic DAILY LYUDMILA Administration Oxycodone HCl 5 mg 04/08/19 08:37 04/14/19 01:29 Roxicodone - PO 5 mg Q12H PRN Administration PAIN LEVEL 6-10 Potassium Chloride 30 meq 04/08/19 09:45 04/14/19 10:51 K-Dur - PO 30 meq DAILY LYUDMILA Administration Tiotropium [place] 2 puff 04/07/19 10:00 04/14/19 10:54 Spiriva Respimat IH 2 puff DAILY LYUDMILA Administration Warfarin Sodium 4 mg 04/07/19 23:00 07/31/19 18:04 Coumadin - PO 4 mg Delvis@1800 LYUDMILA Administration CBC, BMP 04/15/19 05:05 04/15/19 05:05 ASSESSMENT/PLAN: Pt is an 84 yo F with PMHx of COPD (2L), KATERINA, morbid obesity, NIDDM, Afib on coumadin, DVT, 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 * on meropenem and vanco was on vanc/zosyn stopped 04/06- 04/09, * ESBL in wound cx- pt switched to meropenem 04/09/19 * ID- Dr Jacques * Duplex LLE- negative DVT except post tibial not well visualized * Local wound dressing -done by surgical team/vascular * Per surgery-wound vac will be applied for change 3 times a week, pt will need home VNS services to change wound vac 3 times/week on dc * Coumadin resumed * Continue diet * f.u CT LLE showes fluid collection , S.P I&D by LINDA Davis #Chronic RLE wound with dermatitis/venous stasis * Local wound dressing by podiatry, nail care * ID on case * Vanc/zosyn- Day 3 (stopped 04/09/19) cont meropenem and vanco 1 gm BID day#8 * monitor of abx #Positive UA * asymptomatic bacteriuria * Has had ESBL UTI in past, * Hold off treating Positive UA per ID #Persistent atrial fibrillation coumadin * cont Coumadin 4 mg daily and increase to 5 mg today , check inR daily , goal 2 -3 * Therapeutic currently * Seen by podiatry/sx, cont warfarin * Cont dig,Dig level- nl #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 * Med surg * possible SNF tomorrow Visit type - Emergency Visit Emergency Visit: Yes ED Registration Date: 04/06/19 Care time: The patient presented to the Emergency Department on the above date and was hospitalized for further evaluation of their emergent condition. - New Patient This patient is new to me today: No - Critical Care Critical Care patient: No ATTENDING PHYSICIAN STATEMENT I saw and evaluated the patient. I reviewed the resident's note and discussed the case with the resident. I agree with the resident's findings and plan as documented. SUBJECTIVE: OBJECTIVE: ASSESSMENT AND PLAN:
[2019-04-15] MEDS ORDERED: PT OWN MED DRAWER 7, Y5N ONE ×2 (10:58→19:22)
[2019-04-15] MEDS: LOSARTAN POTASSIUM 25 MG TABLET PO SCH (11:13)
[2019-04-15] MEDS: FOLIC ACID 1 MG TABLET (FP) PO SCH (11:13)
[2019-04-15] MEDS: FUROSEMIDE 40 MG TABLET (FP) PO SCH (11:13)
[2019-04-15] MEDS: POTASSIUM CHLORIDE TABS 10 MEQ TABLET.ER (FP) PO SCH (11:13)
[2019-04-15] MEDS: LORATADINE 10 MG TABLET PO SCH (11:13)
[2019-04-15] MEDS: ALLOPURINOL 100 MG TABLET (FP) PO SCH (11:13)
[2019-04-15] MEDS: DIGOXIN 0.125 MG TABLET (FP) PO SCH (11:14)
[2019-04-15] MEDS: MINERAL OIL/PET HY-PHL TOPICAL OINTMENT 454 GM JAR TP SCH (11:20)
[2019-04-15] MEDS: NYSTATIN POWDER 100,000 UNITS/GM - 15 GM TOPICAL POWDER TP SCH (11:21)
[2019-04-15] MEDS: TIOTROPIUM BROMIDE 2.5 MCG (SPIRIVA) RESPIMAT INHALER IH SCH (11:21)
--- NOTE | 2019-04-15 14:15 | PN ---
Teaching Attending Note Name of Resident: Get Gagnon ATTENDING PHYSICIAN STATEMENT I saw and evaluated the patient. I reviewed the resident's note and discussed the case with the resident. I agree with the resident's findings and plan as documented with exceptions below. SUBJECTIVE: Patient seen and examined. No new leg pain or complaints, refuses SNF. OBJECTIVE: Vital Signs Period Temp Pulse Resp BP Sys/Luke Pulse Ox Last 24 Hr 98.2 F-98.4 F 78-100 18-20 104-125/66-70 Intake & Output 04/12/19 04/13/19 04/14/19 04/15/19 23:59 23:59 23:59 23:59 Intake Total 900 1770 1500 1350 Balance 900 1770 1500 1350 Weight 269 lb 2 oz 270 lb 270 lb 266 lb 9.6 oz General: sitting at edge of bed, no acute distress Chest: decreased air entry, no rales or wheezing Abdomen:Soft, obese, NT Extremities: right calf with new wound vac, improved swelling and overlying erythema around wound vac, chronic skin changes bilateral lower extremities unchanged Home Medications Medication Instructions Recorded Allopurinol [Zyloprim -] 100 mg PO DAILY 12/10/18 Digoxin [Lanoxin -] 0.125 mg PO DAILY 12/10/18 Folic Acid 1 mg PO DAILY 12/10/18 Furosemide 40 mg PO BID 12/10/18 Gabapentin 100 mg PO TID 12/10/18 Levothyroxine [Synthroid -] 50 mcg PO DAILY 12/10/18 Losartan Potassium 25 mg PO DAILY 12/10/18 Warfarin Sodium 4 mg PO ASDIR MDD 2mg/4 mg 12/10/18 everyother day Albuterol 0.083% Nebulizer Bonnie 1 amp NEB QID 30 Days #1 amp 12/13/18 [Ventolin 0.083% Nebulizer Soln -] Insulin Sliding Scale [Novolog 1 vial SQ ACHS #1 units 12/13/18 Vial Sliding Scale -] Tiotropium [place] [Spiriva 2 puff IH DAILY #30 inhaler 12/13/18 Respimat] Acetaminophen [Tylenol .Regular 325 mg PO PRN PRN 04/06/19 Strength -] Loratadine 10 mg PO DAILY 04/06/19 Mineral Oil/Hydrophil Petrolat 1 applic TP DAILY 04/06/19 [Dermaphor Ointment] Nystatin Powder [Nystop Powder -] 1 applic TP DAILY 04/06/19 Potassium Chloride 30 meq PO DAILY 04/06/19 Active Medications Acetaminophen (Tylenol -) 325 mg PO Q6H PRN PRN Reason: PAIN SCALE 1-5 Last Admin: 04/13/19 16:42 Dose: 325 mg Allopurinol (Zyloprim -) 100 mg PO DAILY [facility] Last Admin: 04/15/19 11:13 Dose: 100 mg Digoxin (Lanoxin -) 0.125 mg PO DAILY [facility] Last Admin: 04/15/19 11:14 Dose: 0.125 mg Emollient Ointment (Aquaphor -) 1 applic TP DAILY [facility] Last Admin: 04/15/19 11:20 Dose: 1 applic Folic Acid (Folic Acid -) 1 mg PO DAILY [facility] Last Admin: 04/15/19 11:13 Dose: 1 mg Furosemide (Lasix -) 40 mg PO DAILY [facility] Last Admin: 04/15/19 11:13 Dose: 40 mg Gabapentin (Neurontin -) 100 mg PO TID [facility] Last Admin: 04/15/19 06:11 Dose: 100 mg Insulin Aspart (Novolog Vial Sliding Scale -) 1 vial SQ [facility]; Protocol Last Admin: 04/15/19 12:54 Dose: Not Given Levothyroxine Sodium (Synthroid -) 50 mcg PO AM [facility] Last Admin: 04/15/19 06:11 Dose: 50 mcg Loratadine (Claritin -) 10 mg PO DAILY [facility] Last Admin: 04/15/19 11:13 Dose: 10 mg Losartan Potassium (Cozaar -) 25 mg PO DAILY [facility] Last Admin: 04/15/19 11:13 Dose: 25 mg Nystatin (Nystop Powder -) 1 applic TP DAILY [facility] Last Admin: 04/15/19 11:21 Dose: 1 applic Oxycodone HCl (Roxicodone -) 5 mg PO Q12H PRN PRN Reason: PAIN LEVEL 6-10 Last Admin: 04/14/19 01:29 Dose: 5 mg Potassium Chloride (K-Dur -) 30 meq PO DAILY [facility] Last Admin: 04/15/19 11:13 Dose: 30 meq Tiotropium [place] (Spiriva Respimat) 2 puff IH DAILY [facility] Last Admin: 04/15/19 11:21 Dose: 2 puff Warfarin Sodium (Coumadin -) 4 mg PO DAILY LYUDMILA Warfarin Sodium (Coumadin -) 5 mg PO ONCE@1800 ONE Stop: 04/15/19 18:01 Laboratory Results - last 24 hr 04/14/19 04/14/19 04/14/19 16:00 17:46 22:16 WBC RBC Hgb Hct MCV MCH MCHC RDW Plt Count MPV Absolute Neuts (auto) Neutrophils % Lymphocytes % Monocytes % Eosinophils % Basophils % Nucleated RBC % ESR PT with INR 19.30 H INR 1.63 H Sodium Potassium Chloride Carbon Dioxide Anion Gap BUN Creatinine Est GFR (CKD-EPI)AfAm Est GFR (CKD-EPI)NonAf POC Glucometer 175 144 Random Glucose Calcium Phosphorus Magnesium Total Bilirubin AST ALT Alkaline Phosphatase C-Reactive Protein Total Protein Albumin Vancomycin Pre-Dose 04/15/19 04/15/19 04/15/19 05:05 05:05 05:05 WBC 7.5 RBC 3.95 Hgb 10.9 Hct 33.4 MCV 84.5 MCH 27.6 MCHC 32.7 RDW 18.6 H Plt Count 359 MPV 7.6 Absolute Neuts (auto) 4.5 Neutrophils % 60.7 Lymphocytes % 22.7 D Monocytes % 9.1 Eosinophils % 6.5 H Basophils % 1.0 Nucleated RBC % 0 ESR 97 H PT with INR INR Sodium 141 Potassium 4.9 Chloride 103 Carbon Dioxide 34 H Anion Gap 4 L BUN 20.0 H Creatinine 0.7 Est GFR (CKD-EPI)AfAm 92.86 Est GFR (CKD-EPI)NonAf 80.12 POC Glucometer Random Glucose 164 H Calcium 8.7 Phosphorus 2.8 Magnesium 2.2 Total Bilirubin 0.5 AST 21 ALT 13 Alkaline Phosphatase 105 C-Reactive Protein 4.9 H Total Protein 5.9 L Albumin 2.2 L Vancomycin Pre-Dose 21.7 04/15/19 04/15/19 04/15/19 05:54 09:15 12:40 WBC RBC Hgb Hct MCV MCH MCHC RDW Plt Count MPV Absolute Neuts (auto) Neutrophils % Lymphocytes % Monocytes % Eosinophils % Basophils % Nucleated RBC % ESR PT with INR 19.60 H INR 1.65 H Sodium Potassium Chloride Carbon Dioxide Anion Gap BUN Creatinine Est GFR (CKD-EPI)AfAm Est GFR (CKD-EPI)NonAf POC Glucometer 161 130 Random Glucose Calcium Phosphorus Magnesium Total Bilirubin AST ALT Alkaline Phosphatase C-Reactive Protein Total Protein Albumin Vancomycin Pre-Dose Microbiology 04/06/19 15:45 Blood - Peripheral Venous Blood Culture - Final NO GROWTH AFTER 5 DAYS INCUBATION 04/06/19 15:15 Blood - Peripheral Venous Blood Culture - Final NO GROWTH AFTER 5 DAYS INCUBATION 04/06/19 16:19 Leg - Left Lower Gram Stain - Final 04/06/19 16:19 Leg - Left Lower Wound Culture - Final Escherichia Coli Esbl [employer] Acinetobacter Baumannii/Haemol Proteus Mirabilis Enterococcus Faecalis Mr S Aureus 04/06/19 16:19 Urine - Urine Clean Catch Urine Culture - Final Escherichia Coli Esbl [employer] Enterococcus Faecium ASSESSMENT AND PLAN: 84 yof with PMhx of LE wounds followed at Wound care center, with multiple polymicrobial infection, 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 Plan for home dc with wound vac. Discussed with ID, plan to stop abx tomorrow. Vanco levels noted, d/c for now. Meropenem/vanco day 9. Warfarin 5 mg today, then 4 mg daily. Daily INR. lasix/digoxin/losartan DVTPPX on warfarin dispo Discussed with patient in detail about need for dc with wound vac, close monitoring and benefit with aggressive PT. Patient relays full understanding, adamantly declines SNF. Discussed with Cm, plan for d/c home with wound vac over next 48-72 hours if continues to do well.
--- NOTE | 2019-04-15 15:02 | PN ---
Progress Note (short form) - Note Progress Note: vac placed ambulated this am with PT to the door of her room seen by surgery after ct scan, more fluid drained from the leg Vital Signs Period Temp Pulse Resp BP Sys/Luke Pulse Ox Last 24 Hr 98.2 F-98.4 F 78-100 18-20 104-125/66-70 cor-rrr lungs clear abd soft, +pannus ext +erythema surrounding vac, less tense, less swollen a/p cellulitis secondary to hematoma-somewhat improved-difficult to tell how much erythema is cellulitis, how much is due to hematoma and venous stasis low grade fevers resolved asymptomatic bacteriuria morbid obesity history of resistant organisms- mrsa/ecoli esbl-continue contact isolation antibioitic day #9 plan to d/c antibiotics today and observe her leg for 48 hours prior to discharge would urger her to go to SNF for wound care d/w hospitalist Problem List - Problems (1) Wound infection Code(s): T14.8XXA - OTHER INJURY OF UNSPECIFIED BODY REGION, INITIAL ENCOUNTER; L08.9 - LOCAL INFECTION OF THE SKIN AND SUBCUTANEOUS TISSUE, UNSP (2) Asymptomatic bacteriuria Code(s): R82.71 - BACTERIURIA (3) Morbid obesity Code(s): E66.01 - MORBID (SEVERE) OBESITY DUE TO EXCESS CALORIES (4) 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
[2019-04-15] MEDS ORDERED: WARFARIN NA 5 MG TABLET (UD) PO ONE (18:00)
[2019-04-16] MEDS: LEVOTHYROXINE NA 50 MCG TABLET (FP) PO SCH (06:08)
[2019-04-16] MEDS: GABAPENTIN 100 MG CAPSULE (FP) PO SCH ×3 (06:08→22:48)
[2019-04-16] MEDS: INSULIN SLIDING SCALE (NOVOLOG) 1 VIAL SQ SCH ×4 (06:08→22:48)
--- NOTE | 2019-04-16 07:10 | PN ---
Physical Exam: SUBJECTIVE: Patient seen and examined OBJECTIVE: Vital Signs Period Temp Pulse Resp BP Sys/Luke Pulse Ox Last 24 Hr 98.1 F-99.2 F 72-100 20-20 125-146/59-64 GENERAL: The patient is awake, alert, and fully oriented, in no acute distress. HEAD: Normal with no signs of trauma. EYES: PERRL, extraocular movements intact, sclera anicteric, conjunctiva clear. No ptosis. ENT: Ears normal, nares patent, oropharynx clear without exudates, moist mucous membranes. NECK: Trachea midline, full range of motion, supple. LUNGS: Breath sounds equal, clear to auscultation bilaterally, no wheezes, no crackles, no accessory muscle use. HEART: Regular rate and rhythm, S1, S2 without murmur, rub or gallop. ABDOMEN: Soft, nontender, nondistended, normoactive bowel sounds, no guarding, no rebound, no hepatosplenomegaly, no masses. EXTREMITIES: 2+ pulses, warm, well-perfused, no edema. NEUROLOGICAL: Cranial nerves II through XII grossly intact. Normal speech, gait not observed. PSYCH: Normal mood, normal affect. SKIN: Warm, dry, normal turgor, no rashes or lesions noted Laboratory Results - last 24 hr 04/15/19 04/15/19 04/15/19 05:05 05:05 05:05 WBC 7.5 RBC 3.95 Hgb 10.9 Hct 33.4 MCV 84.5 MCH 27.6 MCHC 32.7 RDW 18.6 H Plt Count 359 MPV 7.6 Absolute Neuts (auto) 4.5 Neutrophils % 60.7 Lymphocytes % 22.7 D Monocytes % 9.1 Eosinophils % 6.5 H Basophils % 1.0 Nucleated RBC % 0 ESR 97 H PT with INR INR Sodium 141 Potassium 4.9 Chloride 103 Carbon Dioxide 34 H Anion Gap 4 L BUN 20.0 H Creatinine 0.7 Est GFR (CKD-EPI)AfAm 92.86 Est GFR (CKD-EPI)NonAf 80.12 POC Glucometer Random Glucose 164 H Calcium 8.7 Phosphorus 2.8 Magnesium 2.2 Total Bilirubin 0.5 AST 21 ALT 13 Alkaline Phosphatase 105 C-Reactive Protein 4.9 H Total Protein 5.9 L Albumin 2.2 L Vancomycin Pre-Dose 21.7 04/15/19 04/15/19 04/15/19 09:15 12:40 18:00 WBC RBC Hgb Hct MCV MCH MCHC RDW Plt Count MPV Absolute Neuts (auto) Neutrophils % Lymphocytes % Monocytes % Eosinophils % Basophils % Nucleated RBC % ESR PT with INR 19.60 H INR 1.65 H Sodium Potassium Chloride Carbon Dioxide Anion Gap BUN Creatinine Est GFR (CKD-EPI)AfAm Est GFR (CKD-EPI)NonAf POC Glucometer 130 171 Random Glucose Calcium Phosphorus Magnesium Total Bilirubin AST ALT Alkaline Phosphatase C-Reactive Protein Total Protein Albumin Vancomycin Pre-Dose 04/15/19 04/16/19 20:52 05:52 WBC RBC Hgb Hct MCV MCH MCHC RDW Plt Count MPV Absolute Neuts (auto) Neutrophils % Lymphocytes % Monocytes % Eosinophils % Basophils % Nucleated RBC % ESR PT with INR INR Sodium Potassium Chloride Carbon Dioxide Anion Gap BUN Creatinine Est GFR (CKD-EPI)AfAm Est GFR (CKD-EPI)NonAf POC Glucometer 115 111 Random Glucose Calcium Phosphorus Magnesium Total Bilirubin AST ALT Alkaline Phosphatase C-Reactive Protein Total Protein Albumin Vancomycin Pre-Dose Active Medications Generic Name Dose Route Start Last Admin Trade Name Freq PRN Reason Stop Dose Admin Acetaminophen 325 mg 04/06/19 19:27 04/13/19 16:42 Tylenol - PO 325 mg Q6H PRN Administration PAIN SCALE 1-5 Allopurinol 100 mg 04/07/19 10:00 04/15/19 11:13 Zyloprim - PO 100 mg DAILY LYUDMILA Administration Digoxin 0.125 mg 04/06/19 19:15 04/15/19 11:14 Lanoxin - PO 0.125 mg DAILY LYUDMILA Administration Emollient Ointment 1 applic 04/09/19 10:00 04/15/19 11:20 Aquaphor - TP 1 applic DAILY LYUDMILA Administration Folic Acid 1 mg 04/06/19 19:15 04/15/19 11:13 Folic Acid - PO 1 mg DAILY LYUDMILA Administration Furosemide 40 mg 04/09/19 10:00 04/15/19 11:13 Lasix - PO 40 mg DAILY LYUDMILA Administration Gabapentin 100 mg 04/06/19 22:00 04/16/19 06:08 Neurontin - PO 100 mg TID LYUDMILA Administration Insulin Aspart 1 vial 04/07/19 23:00 04/16/19 06:08 Novolog Vial Sliding Scale - SQ Not Given ACHS [facility] Protocol Levothyroxine Sodium 50 mcg 04/07/19 07:00 04/16/19 06:08 Synthroid - PO 50 mcg AM LYUDMILA Administration Loratadine 10 mg 04/07/19 10:00 04/15/19 11:13 Claritin - PO 10 mg DAILY LYUDMILA Administration Losartan Potassium 25 mg 04/06/19 19:30 04/15/19 11:13 Cozaar - PO 25 mg DAILY LYUDMILA Administration Nystatin 1 applic 04/07/19 10:00 04/15/19 11:21 Nystop Powder - TP 1 applic DAILY LYUDMILA Administration Tiotropium [place] 2 puff 04/07/19 10:00 04/15/19 11:21 Spiriva Respimat IH 2 puff DAILY LYUDMILA Administration Warfarin Sodium 4 mg 04/16/19 18:00 Coumadin - PO DAILY@1800 LYUDMILA ASSESSMENT/PLAN: ATTENDING PHYSICIAN STATEMENT I saw and evaluated the patient. I reviewed the resident's note and discussed the case with the resident. I agree with the resident's findings and plan as documented. SUBJECTIVE: OBJECTIVE: ASSESSMENT AND PLAN:
[2019-04-16 08:26] LABS: INR 1.77 (0.83-1.09)
[2019-04-16 08:34] LABS: BASO % 1.2 % (0-2.0); EOS % 8.3 % (0-4.5); HEMATOCRIT 33.5 % (32.4-45.2); LYMPH % 20.1 % (8-40); MCH 27.6 pg (25.7-33.7); MCHC 32.9 g/dl (32.0-36.0); MEAN PLT VOLUME 7.2 fl (7.5-11.1); MONO % 9.1 % (3.8-10.2); NEUT % 61.3 % (42.8-82.8); PLATELET COUNT 384 K/MM3 (134-434); RBC 3.99 M/mm3 (3.60-5.2); RDW 18.5 % (11.6-15.6); WHITE BLOOD COUNT 7.2 K/mm3 (4.0-10.0)
[2019-04-16 08:46] LABS: ALBUMIN 2.4 g/dl (3.4-5.0); BILIRUBIN,TOTAL 0.6 mg/dL (0.2-1); CREATININE 0.6 mg/dL (0.55-1.3); MAGNESIUM 2.2 mg/dL (1.8-2.4); PHOSPHOROUS 3.1 mg/dL (2.5-4.9); TOT PROT 6.2 g/dl (6.4-8.2)
--- NOTE | 2019-04-16 09:55 | PN ---
Progress Note (short form) - Note Progress Note: Hospitalist to document today. Seems more agreeable for SNF post hospital. Still swelling around Vac site.
[2019-04-16] MEDS ORDERED: WARFARIN NA 2 MG TABLET (UD) PO SCH (10:00)
[2019-04-16] MEDS ORDERED: PT OWN MED DRAWER 7, Y5N ONE (10:16)
[2019-04-16] MEDS: FOLIC ACID 1 MG TABLET (FP) PO SCH (10:54)
[2019-04-16] MEDS: LOSARTAN POTASSIUM 25 MG TABLET PO SCH (10:54)
[2019-04-16] MEDS: DIGOXIN 0.125 MG TABLET (FP) PO SCH (10:54)
[2019-04-16] MEDS: FUROSEMIDE 40 MG TABLET (FP) PO SCH (10:54)
[2019-04-16] MEDS: LORATADINE 10 MG TABLET PO SCH (10:54)
[2019-04-16] MEDS: ALLOPURINOL 100 MG TABLET (FP) PO SCH (10:54)
[2019-04-16] MEDS: MINERAL OIL/PET HY-PHL TOPICAL OINTMENT 454 GM JAR TP SCH (10:55)
[2019-04-16] MEDS: TIOTROPIUM BROMIDE 2.5 MCG (SPIRIVA) RESPIMAT INHALER IH SCH (10:55)
[2019-04-16] MEDS: NYSTATIN POWDER 100,000 UNITS/GM - 15 GM TOPICAL POWDER TP SCH (10:55)
--- NOTE | 2019-04-16 12:54 | PN ---
Progress Note (short form) - Note Progress Note: vac placed seen by PMD- now agreeable to SNF Vital Signs Period Temp Pulse Resp BP Sys/Luke Pulse Ox Last 24 Hr 98.1 F-99.7 F 72-100 20-20 125-146/59-76 cor-rrr lungs clear decreased bs at bases abd +pannus ext unchanged +vac +venous stasis +erythema surrounding vac unchanged-?secondary to hematoma CBC, BMP 04/16/19 07:40 04/16/19 07:40 Microbiology 04/06/19 15:45 Blood - Peripheral Venous Blood Culture - Final NO GROWTH AFTER 5 DAYS INCUBATION 04/06/19 15:15 Blood - Peripheral Venous Blood Culture - Final NO GROWTH AFTER 5 DAYS INCUBATION 04/06/19 16:19 Leg - Left Lower Gram Stain - Final 04/06/19 16:19 Leg - Left Lower Wound Culture - Final Escherichia Coli Esbl Assistant Manager Bilingual Acinetobacter Baumannii/Haemol Proteus Mirabilis Enterococcus Faecalis Mr S Aureus 04/06/19 16:19 Urine - Urine Clean Catch Urine Culture - Final Escherichia Coli Esbl Assistant Manager Bilingual Enterococcus Faecium a/p cellulitis secondary to hematoma-somewhat improved-difficult to tell how much erythema is cellulitis, how much is due to hematoma and venous stasis low grade fevers resolved asymptomatic bacteriuria morbid obesity history of resistant organisms- mrsa/ecoli esbl-continue contact isolation would observe off antibiotics SNF placement planned Problem List - Problems (1) Wound infection Code(s): T14.8XXA - OTHER INJURY OF UNSPECIFIED BODY REGION, INITIAL ENCOUNTER; L08.9 - LOCAL INFECTION OF THE SKIN AND SUBCUTANEOUS TISSUE, UNSP (2) Asymptomatic bacteriuria Code(s): R82.71 - BACTERIURIA (3) Morbid obesity Code(s): E66.01 - MORBID (SEVERE) OBESITY DUE TO EXCESS CALORIES (4) 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
[2019-04-16] MEDS: ACETAMINOPHEN 325 MG TABLET (FP) PO PRN (14:59)
[2019-04-16] MEDS: oxyCODONE HCL 5 MG TABLET PO PRN (14:59)
--- NOTE | 2019-04-16 16:13 | PN ---
Teaching Attending Note Name of Resident: Get Gagnon ATTENDING PHYSICIAN STATEMENT I saw and evaluated the patient. I reviewed the resident's note and discussed the case with the resident. I agree with the resident's findings and plan as documented with exceptions below. SUBJECTIVE: Patient seen and examined. Reports generalized aches and pain. OBJECTIVE: Vital Signs Period Temp Pulse Resp BP Sys/Luke Pulse Ox Last 24 Hr 98.1 F-99.7 F 72-100 20-20 125-146/59-76 Intake & Output 04/13/19 04/14/19 04/15/19 04/16/19 23:59 23:59 23:59 23:59 Intake Total 1770 1500 2750 800 Balance 1770 1500 2750 800 Weight 270 lb 270 lb 266 lb 9.6 oz 267 lb 2 oz General: lying in bed in no acute distress Chest: decreased effort, no rales or wheezing Abdomen: soft, obese, NT Extremities: Right calf swelling around with wound vac improved, chronic dermatitis findings unchanged ASSESSMENT AND PLAN: 84 yof with PMhx of LE wounds followed at Wound care center, with multiple polymicrobial infection, 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 Off abx, monitor over 48 hours. s/p 9 days of meropenem/vanco. Warfarin 4 mg daily. Daily INR. lasix/digoxin/losartan DVTPPX on warfarin dispo agreable to SNF. Discussed with CM Plan for SNF with wound vac on Friday if doing well and disposition arranged.
--- NOTE | 2019-04-16 16:57 | PN ---
Physical Exam: SUBJECTIVE: Patient seen and examined at bed side , no new complain ,leg swelling improving , S.P I&D. no fever no chills. OBJECTIVE: Vital Signs Period Temp Pulse Resp BP Sys/Luke Pulse Ox Last 24 Hr 98.1 F-99.7 F 72-100 20-20 125-146/59-76 GENERAL: The patient is awake, alert, and fully oriented, in no acute distress. LUNGS: slightly expiratory wheezing this AM HEART: irreg, S1, S2 without murmur ABDOMEN: Soft, nontender, obese, lymphedematous skin changes, normoactive bowel sounds EXTREMITIES: RLE wrapped. LLE with 2x2cm deep hole. edematous margins around the vac ,Some surrounding erythema, Vac in place in left leg , swollen around the vac 5/3 cm improving NEUROLOGICAL: AAOx3. Able to move all extremities. no focal deficit Laboratory Results - last 24 hr 04/15/19 04/15/19 04/16/19 18:00 20:52 05:52 WBC RBC Hgb Hct MCV MCH MCHC RDW Plt Count MPV Absolute Neuts (auto) Neutrophils % Lymphocytes % Monocytes % Eosinophils % Basophils % Nucleated RBC % PT with INR INR Sodium Potassium Chloride Carbon Dioxide Anion Gap BUN Creatinine Est GFR (CKD-EPI)AfAm Est GFR (CKD-EPI)NonAf POC Glucometer 171 115 111 Random Glucose Calcium Phosphorus Magnesium Total Bilirubin AST ALT Alkaline Phosphatase Total Protein Albumin 04/16/19 04/16/19 04/16/19 07:40 07:40 07:40 WBC 7.2 RBC 3.99 Hgb 11.0 Hct 33.5 MCV 84.0 MCH 27.6 MCHC 32.9 RDW 18.5 H Plt Count 384 MPV 7.2 L Absolute Neuts (auto) 4.4 Neutrophils % 61.3 Lymphocytes % 20.1 Monocytes % 9.1 Eosinophils % 8.3 H Basophils % 1.2 Nucleated RBC % 0 PT with INR 21.00 H INR 1.77 H Sodium 142 Potassium 4.0 Chloride 104 Carbon Dioxide 33 H Anion Gap 4 L BUN 19.0 H Creatinine 0.6 Est GFR (CKD-EPI)AfAm 97.69 Est GFR (CKD-EPI)NonAf 84.29 POC Glucometer Random Glucose 106 Calcium 9.0 Phosphorus 3.1 Magnesium 2.2 Total Bilirubin 0.6 AST 24 ALT 15 Alkaline Phosphatase 111 Total Protein 6.2 L Albumin 2.4 L 04/16/19 11:28 WBC RBC Hgb Hct MCV MCH MCHC RDW Plt Count MPV Absolute Neuts (auto) Neutrophils % Lymphocytes % Monocytes % Eosinophils % Basophils % Nucleated RBC % PT with INR INR Sodium Potassium Chloride Carbon Dioxide Anion Gap BUN Creatinine Est GFR (CKD-EPI)AfAm Est GFR (CKD-EPI)NonAf POC Glucometer 166 Random Glucose Calcium Phosphorus Magnesium Total Bilirubin AST ALT Alkaline Phosphatase Total Protein Albumin Active Medications Generic Name Dose Route Start Last Admin Trade Name Freq PRN Reason Stop Dose Admin Acetaminophen 325 mg 04/06/19 19:27 04/16/19 14:59 Tylenol - PO 325 mg Q6H PRN Administration PAIN SCALE 1-5 Allopurinol 100 mg 04/07/19 10:00 04/16/19 10:54 Zyloprim - PO 100 mg DAILY LYUDMILA Administration Digoxin 0.125 mg 04/06/19 19:15 04/16/19 10:54 Lanoxin - PO 0.125 mg DAILY LYUDMILA Administration Emollient Ointment 1 applic 04/09/19 10:00 04/16/19 10:55 Aquaphor - TP 1 applic DAILY LYUDMILA Administration Folic Acid 1 mg 04/06/19 19:15 04/16/19 10:54 Folic Acid - PO 1 mg DAILY LYUDMILA Administration Furosemide 40 mg 04/09/19 10:00 04/16/19 10:54 Lasix - PO 40 mg DAILY LYUDMILA Administration Gabapentin 100 mg 04/06/19 22:00 04/16/19 14:59 Neurontin - PO 100 mg TID LYUDMILA Administration Insulin Aspart 1 vial 04/07/19 23:00 04/16/19 06:08 Novolog Vial Sliding Scale - SQ Not Given ACHS [facility] Protocol Levothyroxine Sodium 50 mcg 04/07/19 07:00 04/16/19 06:08 Synthroid - PO 50 mcg AM LYUDMILA Administration Loratadine 10 mg 04/07/19 10:00 04/16/19 10:54 Claritin - PO 10 mg DAILY LYUDMILA Administration Losartan Potassium 25 mg 04/06/19 19:30 04/16/19 10:54 Cozaar - PO 25 mg DAILY LYUDMILA Administration Nystatin 1 applic 04/07/19 10:00 04/16/19 10:55 Nystop Powder - TP 1 applic DAILY LYUDMILA Administration Oxycodone HCl 5 mg 04/16/19 14:41 04/16/19 14:59 Roxicodone - PO 5 mg Q12H PRN Administration PAIN LEVEL 6-10 Tiotropium [place] 2 puff 04/07/19 10:00 04/16/19 10:55 Spiriva Respimat IH 2 puff DAILY LYUDMILA Administration Warfarin Sodium 4 mg 04/16/19 18:00 Coumadin - PO DAILY@1800 [facility] CBC, BMP 04/16/19 07:40 04/16/19 07:40 Microbiology 04/06/19 15:45 Blood - Peripheral Venous Blood Culture - Final NO GROWTH AFTER 5 DAYS INCUBATION 04/06/19 15:15 Blood - Peripheral Venous Blood Culture - Final NO GROWTH AFTER 5 DAYS INCUBATION 04/06/19 16:19 Leg - Left Lower Gram Stain - Final 04/06/19 16:19 Leg - Left Lower Wound Culture - Final Escherichia Coli Esbl Reel Tender Acinetobacter Baumannii/Haemol Proteus Mirabilis Enterococcus Faecalis Mr S Aureus 04/06/19 16:19 Urine - Urine Clean Catch Urine Culture - Final Escherichia Coli Esbl Reel Tender Enterococcus Faecium ASSESSMENT/PLAN: Pt is an 84 yo F with PMHx of COPD (2L), KATERINA, morbid obesity, NIDDM, Afib on coumadin, DVT, 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 * on meropenem and vanco was on vanc/zosyn stopped 04/06- 04/09, monitor off abx * ESBL in wound cx- pt switched to meropenem 04/09/19 * ID- Dr Jacques * Duplex LLE- negative DVT except post tibial not well visualized * Local wound dressing -done by surgical team/vascular * Per surgery-wound vac will be applied for change 3 times a week, * Coumadin resumed * Continue diet * f.u CT LLE showes fluid collection , S.P I&D by LINDA Davis #Chronic RLE wound with dermatitis/venous stasis * Local wound dressing by podiatry, nail care * ID on case * Vanc/zosyn- Day 3 (stopped 04/09/19) cont meropenem and vanco 1 gm BID day#8 * monitor of abx #Positive UA * asymptomatic bacteriuria * Has had ESBL UTI in past, * Hold off treating Positive UA per ID #Persistent atrial fibrillation coumadin * cont Coumadin 4 mg daily and increase to 5 mg today , check inR daily , goal 2 -3 * Therapeutic currently * Seen by podiatry/sx, cont warfarin * Cont dig,Dig level- nl #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 * Med surg * planned for SNF on [place] Visit type - Emergency Visit Emergency Visit: Yes ED Registration Date: 04/06/19 Care time: The patient presented to the Emergency Department on the above date and was hospitalized for further evaluation of their emergent condition. - New Patient This patient is new to me today: No - Critical Care Critical Care patient: No ATTENDING PHYSICIAN STATEMENT I saw and evaluated the patient. I reviewed the resident's note and discussed the case with the resident. I agree with the resident's findings and plan as documented. SUBJECTIVE: OBJECTIVE: ASSESSMENT AND PLAN:
[2019-04-16] MEDS: WARFARIN NA 2 MG TABLET (UD) PO SCH (18:07)
[2019-04-17] MEDS: ACETAMINOPHEN 325 MG TABLET (FP) PO PRN (02:51)
[2019-04-17] MEDS: oxyCODONE HCL 5 MG TABLET PO PRN (02:52)
[2019-04-17] MEDS ORDERED: INSULIN (NOVOLOG) ASPART 100 UNITS/ML 10ML VIAL ONE (06:09)
[2019-04-17] MEDS: LEVOTHYROXINE NA 50 MCG TABLET (FP) PO SCH (06:50)
[2019-04-17] MEDS: GABAPENTIN 100 MG CAPSULE (FP) PO SCH ×3 (06:50→22:26)
[2019-04-17] MEDS: INSULIN SLIDING SCALE (NOVOLOG) 1 VIAL SQ SCH ×4 (06:56→22:26)
[2019-04-17] MEDS: VANCOMYCIN 1 GRAM (PRE-DOCKED) 1,000 MG/250 ML BAG IVPB SCH (06:59)
[2019-04-17 08:08] LABS: BASO % 1.2 % (0-2.0); EOS % 7.8 % (0-4.5); HEMATOCRIT 33.1 % (32.4-45.2); HEMOGLOBIN 10.8 GM/dL (10.7-15.3); LYMPH % 20.3 % (8-40); MCH 27.5 pg (25.7-33.7); MCHC 32.5 g/dl (32.0-36.0); MEAN CELL VOLUME 84.4 fl (80-96); MEAN PLT VOLUME 7.3 fl (7.5-11.1); MONO % 7.8 % (3.8-10.2); NEUT % 62.9 % (42.8-82.8); PLATELET COUNT 382 K/MM3 (134-434); RBC 3.91 M/mm3 (3.60-5.2); RDW 18.8 % (11.6-15.6)
[2019-04-17 08:28] LABS: INR 2.01 (0.83-1.09); PROTHROMBIN TIME (PATIENT) 23.9 SEC (9.7-13.0)
[2019-04-17 08:34] LABS: BLOOD UREA NITROGEN 21.8 mg/dL (7-18); CALCIUM 8.8 mg/dL (8.5-10.1); CREATININE 0.7 mg/dL (0.55-1.3); POTASSIUM 4.1 mmol/L (3.5-5.1)
[2019-04-17] MEDS ORDERED: PT OWN MED DRAWER 7, Y5N ONE (09:10)
[2019-04-17] MEDS: ALLOPURINOL 100 MG TABLET (FP) PO SCH (09:20)
[2019-04-17] MEDS: NYSTATIN POWDER 100,000 UNITS/GM - 15 GM TOPICAL POWDER TP SCH (09:20)
[2019-04-17] MEDS: FUROSEMIDE 40 MG TABLET (FP) PO SCH (09:20)
[2019-04-17] MEDS: MINERAL OIL/PET HY-PHL TOPICAL OINTMENT 454 GM JAR TP SCH (09:20)
[2019-04-17] MEDS: LORATADINE 10 MG TABLET PO SCH (09:20)
[2019-04-17] MEDS: TIOTROPIUM BROMIDE 2.5 MCG (SPIRIVA) RESPIMAT INHALER IH SCH (09:20)
[2019-04-17] MEDS: DIGOXIN 0.125 MG TABLET (FP) PO SCH (09:20)
[2019-04-17] MEDS: FOLIC ACID 1 MG TABLET (FP) PO SCH (09:20)
[2019-04-17] MEDS: LOSARTAN POTASSIUM 25 MG TABLET PO SCH (09:20)
--- NOTE | 2019-04-17 15:46 | PN ---
Physical Exam: SUBJECTIVE: Patient seen and examined, no new complaints, pain better. OBJECTIVE: Vital Signs Period Temp Pulse Resp BP Sys/Luke Pulse Ox Last 24 Hr 97.9 F-98.5 F 86-100 20-22 95-126/48-71 95-95 Intake & Output 04/14/19 04/15/19 04/16/19 04/17/19 23:59 23:59 23:59 23:59 Intake Total 1500 2750 1280 850 Balance 1500 2750 1280 850 Weight 270 lb 266 lb 9.6 oz 267 lb 2 oz 261 lb 6.4 oz General: lying in bed in no acute distress, morbidly obese, BMI 43.5 Chest: decreased effort, no rales or wheezing Neck: soft, supple HEENT: PERRL Abdomen: soft, obese, NT Extremities: Right calf swelling around with wound vac improved, chronic dermatitis findings unchanged Psych: pleasant, co-operative Laboratory Results - last 24 hr 04/16/19 04/16/19 04/17/19 18:00 22:47 06:45 WBC RBC Hgb Hct MCV MCH MCHC RDW Plt Count MPV Absolute Neuts (auto) Neutrophils % Lymphocytes % Monocytes % Eosinophils % Basophils % Nucleated RBC % PT with INR 23.90 H INR 2.01 H Sodium Potassium Chloride Carbon Dioxide Anion Gap BUN Creatinine Est GFR (CKD-EPI)AfAm Est GFR (CKD-EPI)NonAf POC Glucometer 152 158 Random Glucose Calcium 04/17/19 04/17/19 04/17/19 06:45 06:45 06:54 WBC 8.0 RBC 3.91 Hgb 10.8 Hct 33.1 MCV 84.4 MCH 27.5 MCHC 32.5 RDW 18.8 H Plt Count 382 MPV 7.3 L Absolute Neuts (auto) 5.0 Neutrophils % 62.9 Lymphocytes % 20.3 Monocytes % 7.8 Eosinophils % 7.8 H Basophils % 1.2 Nucleated RBC % 0 PT with INR INR Sodium 142 Potassium 4.1 Chloride 104 Carbon Dioxide 32 Anion Gap 5 L BUN 21.8 H Creatinine 0.7 Est GFR (CKD-EPI)AfAm 92.86 Est GFR (CKD-EPI)NonAf 80.12 POC Glucometer 124 Random Glucose 107 H Calcium 8.8 04/17/19 11:49 WBC RBC Hgb Hct MCV MCH MCHC RDW Plt Count MPV Absolute Neuts (auto) Neutrophils % Lymphocytes % Monocytes % Eosinophils % Basophils % Nucleated RBC % PT with INR INR Sodium Potassium Chloride Carbon Dioxide Anion Gap BUN Creatinine Est GFR (CKD-EPI)AfAm Est GFR (CKD-EPI)NonAf POC Glucometer 157 Random Glucose Calcium Active Medications Generic Name Dose Route Start Last Admin Trade Name Freq PRN Reason Stop Dose Admin Acetaminophen 325 mg 04/06/19 19:27 04/17/19 02:51 Tylenol - PO 325 mg Q6H PRN Administration PAIN SCALE 1-5 Allopurinol 100 mg 04/07/19 10:00 04/17/19 09:20 Zyloprim - PO 100 mg DAILY LYUDMILA Administration Digoxin 0.125 mg 04/06/19 19:15 04/17/19 09:20 Lanoxin - PO 0.125 mg DAILY LYUDMILA Administration Emollient Ointment 1 applic 04/09/19 10:00 04/17/19 09:20 Aquaphor - TP 1 applic DAILY LYUDMILA Administration Folic Acid 1 mg 04/06/19 19:15 04/17/19 09:20 Folic Acid - PO 1 mg DAILY LYUDMILA Administration Furosemide 40 mg 04/09/19 10:00 04/17/19 09:20 Lasix - PO 40 mg DAILY LYUDMILA Administration Gabapentin 100 mg 04/06/19 22:00 04/17/19 14:47 Neurontin - PO 100 mg TID LYUDMILA Administration Insulin Aspart 1 vial 04/07/19 23:00 04/17/19 12:09 Novolog Vial Sliding Scale - SQ 2 units ACHS LYUDMILA Administration Protocol Levothyroxine Sodium 50 mcg 04/07/19 07:00 04/17/19 06:50 Synthroid - PO 50 mcg AM LYUDMILA Administration Loratadine 10 mg 04/07/19 10:00 04/17/19 09:20 Claritin - PO 10 mg DAILY LYUDMILA Administration Losartan Potassium 25 mg 04/06/19 19:30 04/17/19 09:20 Cozaar - PO 25 mg DAILY LYUDMILA Administration Nystatin 1 applic 04/07/19 10:00 04/17/19 09:20 Nystop Powder - TP 1 applic DAILY LYUDMILA Administration Oxycodone HCl 5 mg 04/16/19 14:41 04/17/19 02:52 Roxicodone - PO 5 mg Q12H PRN Administration PAIN LEVEL 6-10 Tiotropium [place] 2 puff 04/07/19 10:00 04/17/19 09:20 Spiriva Respimat IH 2 puff DAILY LYUDMILA Administration Warfarin Sodium 4 mg 04/16/19 18:00 04/16/19 18:07 Coumadin - PO 4 mg DAILY@1800 LYUDMILA Administration ASSESSMENT/PLAN: 84 yof with PMhx of LE wounds followed at Wound care center, with multiple polymicrobial infection, 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 Off abx, monitor over 48 hours. s/p 9 days of meropenem/vanco. Warfarin 4 mg daily. Daily INR. lasix/digoxin/losartan DVTPPX on warfarin dispo agreable to SNF. Discussed with CM Plan for SNF with wound vac in 24-48 hours if no new events and disposition arranged. Visit type - Emergency Visit Emergency Visit: Yes ED Registration Date: 04/06/19 Care time: The patient presented to the Emergency Department on the above date and was hospitalized for further evaluation of their emergent condition. - New Patient This patient is new to me today: No - Critical Care Critical Care patient: No - Discharge Referral Referred to [facility] No
[2019-04-17] MEDS: WARFARIN NA 2 MG TABLET (UD) PO SCH (17:40)
[2019-04-18] MEDS: oxyCODONE HCL 5 MG TABLET PO PRN ×2 (02:54→22:22)
[2019-04-18] MEDS: INSULIN SLIDING SCALE (NOVOLOG) 1 VIAL SQ SCH ×4 (06:19→22:02)
[2019-04-18] MEDS: GABAPENTIN 100 MG CAPSULE (FP) PO SCH ×3 (06:20→22:02)
[2019-04-18] MEDS: LEVOTHYROXINE NA 50 MCG TABLET (FP) PO SCH (06:20)
[2019-04-18 07:32] LABS: BASO % 1.1 % (0-2.0); EOS % 7.6 % (0-4.5); HEMATOCRIT 33.8 % (32.4-45.2); HEMOGLOBIN 10.8 GM/dL (10.7-15.3); LYMPH % 24.9 % (8-40); MCH 27.1 pg (25.7-33.7); MCHC 31.9 g/dl (32.0-36.0); MEAN PLT VOLUME 7.8 fl (7.5-11.1); MONO % 8.7 % (3.8-10.2); NEUT % 57.7 % (42.8-82.8); PLATELET COUNT 341 K/MM3 (134-434); RBC 3.98 M/mm3 (3.60-5.2); WHITE BLOOD COUNT 7.4 K/mm3 (4.0-10.0)
[2019-04-18 08:12] LABS: INR 2.22 (0.83-1.09); PROTHROMBIN TIME (PATIENT) 26.4 SEC (9.7-13.0)
[2019-04-18] MEDS ORDERED: PT OWN MED DRAWER 7, Y5N ONE ×2 (09:13→14:36)
[2019-04-18] MEDS: DIGOXIN 0.125 MG TABLET (FP) PO SCH (09:21)
[2019-04-18] MEDS: LORATADINE 10 MG TABLET PO SCH (09:22)
[2019-04-18] MEDS: ALLOPURINOL 100 MG TABLET (FP) PO SCH (09:22)
[2019-04-18] MEDS: MINERAL OIL/PET HY-PHL TOPICAL OINTMENT 454 GM JAR TP SCH (09:22)
[2019-04-18] MEDS: FUROSEMIDE 40 MG TABLET (FP) PO SCH (09:22)
[2019-04-18] MEDS: NYSTATIN POWDER 100,000 UNITS/GM - 15 GM TOPICAL POWDER TP SCH (09:22)
[2019-04-18] MEDS: FOLIC ACID 1 MG TABLET (FP) PO SCH (09:22)
[2019-04-18] MEDS: TIOTROPIUM BROMIDE 2.5 MCG (SPIRIVA) RESPIMAT INHALER IH SCH (09:22)
[2019-04-18] MEDS: LOSARTAN POTASSIUM 25 MG TABLET PO SCH (11:34)
[2019-04-18 13:19] VITALS: BMI 43.6
--- NOTE | 2019-04-18 14:28 | PN ---
Physical Exam: SUBJECTIVE: Patient seen and examined, no complaints. OBJECTIVE: Vital Signs Period Temp Pulse Resp BP Sys/Luke Pulse Ox Last 24 Hr 97.9 F-99.6 F 82-100 18-22 103-165/49-81 97 Intake & Output 04/15/19 04/16/19 04/17/19 04/18/19 23:59 23:59 23:59 23:59 Intake Total 2750 1280 850 650 Balance 2750 1280 850 650 Weight 266 lb 9.6 oz 267 lb 2 oz 261 lb 6.4 oz 262 lb 8 oz General: lying in bed in no acute distress, morbidly obese, BMI 43.5 Chest: decreased effort, no rales or wheezing Neck: soft, supple HEENT: PERRL Abdomen: soft, obese, NT Extremities: right calf wound vac site with slow drainage, ?some increase vs distribution of swelling around the wound vac, overlying blanching erythema, non tender, pos DP pulses, palpable and dopplerable Psych: pleasant, co-operative Laboratory Results - last 24 hr 04/17/19 04/17/19 04/18/19 17:36 22:25 06:05 WBC RBC Hgb Hct MCV MCH MCHC RDW Plt Count MPV Absolute Neuts (auto) Neutrophils % Lymphocytes % Monocytes % Eosinophils % Basophils % Nucleated RBC % PT with INR INR POC Glucometer 217 164 103 04/18/19 04/18/19 04/18/19 06:07 06:07 11:30 WBC 7.4 RBC 3.98 Hgb 10.8 Hct 33.8 MCV 85.0 MCH 27.1 MCHC 31.9 L RDW 19.0 H Plt Count 341 MPV 7.8 Absolute Neuts (auto) 4.3 Neutrophils % 57.7 Lymphocytes % 24.9 D Monocytes % 8.7 Eosinophils % 7.6 H Basophils % 1.1 Nucleated RBC % 0 PT with INR 26.40 H INR 2.22 H POC Glucometer 145 Active Medications Generic Name Dose Route Start Last Admin Trade Name Freq PRN Reason Stop Dose Admin Acetaminophen 325 mg 04/06/19 19:27 04/17/19 02:51 Tylenol - PO 325 mg Q6H PRN Administration PAIN SCALE 1-5 Allopurinol 100 mg 04/07/19 10:00 04/18/19 09:22 Zyloprim - PO 100 mg DAILY LYUDMILA Administration Artificial Tears 1 drop 04/18/19 09:01 Artificial Tears OU Q6H PRN DRY EYES Digoxin 0.125 mg 04/06/19 19:15 04/18/19 09:21 Lanoxin - PO 0.125 mg DAILY LYUDMILA Administration Emollient Ointment 1 applic 04/09/19 10:00 04/18/19 09:22 Aquaphor - TP 1 applic DAILY LYUDMILA Administration Folic Acid 1 mg 04/06/19 19:15 04/18/19 09:22 Folic Acid - PO 1 mg DAILY LYUDMILA Administration Furosemide 40 mg 04/09/19 10:00 04/18/19 09:22 Lasix - PO 40 mg DAILY LYUDMILA Administration Gabapentin 100 mg 04/06/19 22:00 04/18/19 13:48 Neurontin - PO 100 mg TID LYUDMILA Administration Insulin Aspart 1 vial 04/07/19 23:00 04/18/19 11:31 Novolog Vial Sliding Scale - SQ Not Given ACHS [facility] Protocol Levothyroxine Sodium 50 mcg 04/07/19 07:00 04/18/19 06:20 Synthroid - PO 50 mcg AM LYUDMILA Administration Loratadine 10 mg 04/07/19 10:00 04/18/19 09:22 Claritin - PO 10 mg DAILY LYUDMILA Administration Losartan Potassium 25 mg 04/06/19 19:30 04/18/19 11:34 Cozaar - PO 25 mg DAILY LYUDMILA Administration Nystatin 1 applic 04/07/19 10:00 04/18/19 09:22 Nystop Powder - TP 1 applic DAILY LYUDMILA Administration Oxycodone HCl 5 mg 04/16/19 14:41 04/18/19 02:54 Roxicodone - PO 5 mg Q12H PRN Administration PAIN LEVEL 6-10 Tiotropium [place] 2 puff 04/07/19 10:00 04/18/19 09:22 Spiriva Respimat IH 2 puff DAILY LYUDMILA Administration Warfarin Sodium 4 mg 04/16/19 18:00 04/17/19 17:40 Coumadin - PO 4 mg DAILY@1800 LYUDMILA Administration ASSESSMENT/PLAN: 84 yof with PMhx of LE wounds followed at Wound care center, with multiple polymicrobial infection, 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 padron. Afebrile, clinically stable, normal WBC. Continue to monitor. s/p 9 days of meropenem/vanco. Warfarin 4 mg daily. Daily INR. lasix/digoxin/losartan DVTPPX on warfarin dispo agreable to SNF. Discussed with CM Plan for SNF with wound vac in 24 hours pending ID/surgery re-eval and disposition arrangements. Visit type - Emergency Visit Emergency Visit: Yes ED Registration Date: 04/06/19 Care time: The patient presented to the Emergency Department on the above date and was hospitalized for further evaluation of their emergent condition. - New Patient This patient is new to me today: No - Critical Care Critical Care patient: No - Discharge Referral Referred to [facility] Med P.C.: No
[2019-04-18] MEDS: ARTIFICIAL TEARS (POLYVINYL ALCOHOL) OPTH DROPS OU PRN (14:38)
--- NOTE | 2019-04-18 16:21 | PN ---
Progress Note, Physician History of Present Illness: NO C/O LEG PAIN NO FEVER/CHILLS AFEBRILE WBC WNL - Current Medication List Current Medications: Active Medications Acetaminophen (Tylenol -) 325 mg PO Q6H PRN PRN Reason: PAIN SCALE 1-5 Last Admin: 04/17/19 02:51 Dose: 325 mg Allopurinol (Zyloprim -) 100 mg PO DAILY [facility] Last Admin: 04/18/19 09:22 Dose: 100 mg Artificial Tears (Artificial Tears) 1 drop OU Q6H PRN PRN Reason: DRY EYES Last Admin: 04/18/19 14:38 Dose: 1 drop Digoxin (Lanoxin -) 0.125 mg PO DAILY [facility] Last Admin: 04/18/19 09:21 Dose: 0.125 mg Emollient Ointment (Aquaphor -) 1 applic TP DAILY [facility] Last Admin: 04/18/19 09:22 Dose: 1 applic Folic Acid (Folic Acid -) 1 mg PO DAILY [facility] Last Admin: 04/18/19 09:22 Dose: 1 mg Furosemide (Lasix -) 40 mg PO DAILY [facility] Last Admin: 04/18/19 09:22 Dose: 40 mg Gabapentin (Neurontin -) 100 mg PO TID [facility] Last Admin: 04/18/19 13:48 Dose: 100 mg Insulin Aspart (Novolog Vial Sliding Scale -) 1 vial SQ ACHS [facility]; Protocol Last Admin: 04/18/19 11:31 Dose: Not Given Levothyroxine Sodium (Synthroid -) 50 mcg PO AM [facility] Last Admin: 04/18/19 06:20 Dose: 50 mcg Loratadine (Claritin -) 10 mg PO DAILY [facility] Last Admin: 04/18/19 09:22 Dose: 10 mg Losartan Potassium (Cozaar -) 25 mg PO DAILY [facility] Last Admin: 04/18/19 11:34 Dose: 25 mg Nystatin (Nystop Powder -) 1 applic TP DAILY [facility] Last Admin: 04/18/19 09:22 Dose: 1 applic Oxycodone HCl (Roxicodone -) 5 mg PO Q12H PRN PRN Reason: PAIN LEVEL 6-10 Last Admin: 04/18/19 02:54 Dose: 5 mg Tiotropium [place] (Spiriva Respimat) 2 puff IH DAILY [facility] Last Admin: 04/18/19 09:22 Dose: 2 puff Warfarin Sodium (Coumadin -) 4 mg PO DAILY@1800 LYUDMILA Last Admin: 04/17/19 17:40 Dose: 4 mg - Objective Vital Signs: Vital Signs Temperature 98.2 F 04/18/19 10:00 Pulse Rate 85 04/18/19 11:33 Respiratory Rate 18 04/18/19 10:00 Blood Pressure 134/81 04/18/19 11:33 O2 Sat by Pulse Oximetry (%) 97 04/18/19 09:00 Constitutional: Yes: No Distress, Obese Cardiovascular: Yes: Regular Rate and Rhythm, S1, S2 Respiratory: Yes: CTA Bilaterally Gastrointestinal: Yes: Normal Bowel Sounds, Soft Integumentary: Yes: Other (WOUND VAC IN PLACE, LEG WOUND + CHR VENOUS STASIS, SL WARMTH) Labs: CBC, BMP 04/18/19 06:07 04/17/19 06:45 INR, PTT INR 2.22 (0.83-1.09) H 04/18/19 06:07 Assessment/Plan CHRONIC VENOUS STASIS CELLULITIS LEG WOUND S/P VAC OBSERVE OFF ANTIBIOTICS
[2019-04-18] MEDS: WARFARIN NA 2 MG TABLET (UD) PO SCH (17:34)
[2019-04-19] MEDS: INSULIN SLIDING SCALE (NOVOLOG) 1 VIAL SQ SCH ×3 (06:16→17:40)
[2019-04-19] MEDS: LEVOTHYROXINE NA 50 MCG TABLET (FP) PO SCH (06:16)
[2019-04-19] MEDS: GABAPENTIN 100 MG CAPSULE (FP) PO SCH ×2 (06:16→13:57)
[2019-04-19 07:50] LABS: INR 2.43 (0.83-1.09); PROTHROMBIN TIME (PATIENT) 28.9 SEC (9.7-13.0)
[2019-04-19 07:58] LABS: BASO % 1.2 % (0-2.0); EOS % 7.5 % (0-4.5); HEMATOCRIT 35.3 % (32.4-45.2); HEMOGLOBIN 11.4 GM/dL (10.7-15.3); LYMPH % 25.8 % (8-40); MCH 27.1 pg (25.7-33.7); MCHC 32.1 g/dl (32.0-36.0); MEAN CELL VOLUME 84.2 fl (80-96); MEAN PLT VOLUME 7.2 fl (7.5-11.1); MONO % 8.2 % (3.8-10.2); NEUT % 57.3 % (42.8-82.8); PLATELET COUNT 410 K/MM3 (134-434); WHITE BLOOD COUNT 7.1 K/mm3 (4.0-10.0)
[2019-04-19] MEDS ORDERED: PT OWN MED DRAWER 7, Y5N ONE (09:09)
[2019-04-19] MEDS: FUROSEMIDE 40 MG TABLET (FP) PO SCH (09:15)
[2019-04-19] MEDS: LORATADINE 10 MG TABLET PO SCH (09:15)
[2019-04-19] MEDS: ALLOPURINOL 100 MG TABLET (FP) PO SCH (09:15)
[2019-04-19] MEDS: LOSARTAN POTASSIUM 25 MG TABLET PO SCH (09:15)
[2019-04-19] MEDS: FOLIC ACID 1 MG TABLET (FP) PO SCH (09:15)
[2019-04-19] MEDS: NYSTATIN POWDER 100,000 UNITS/GM - 15 GM TOPICAL POWDER TP SCH (09:16)
[2019-04-19] MEDS: DIGOXIN 0.125 MG TABLET (FP) PO SCH (09:16)
[2019-04-19] MEDS: MINERAL OIL/PET HY-PHL TOPICAL OINTMENT 454 GM JAR TP SCH (09:16)
[2019-04-19] MEDS: ARTIFICIAL TEARS (POLYVINYL ALCOHOL) OPTH DROPS OU PRN (09:16)
[2019-04-19] MEDS: TIOTROPIUM BROMIDE 2.5 MCG (SPIRIVA) RESPIMAT INHALER IH SCH (09:17)
[2019-04-19] MEDS ORDERED: diphenhydrAMINE HCL 25 MG CAPSULE (FP) PO PRN (11:00)
[2019-04-19] MEDS ORDERED: INSULIN (NOVOLOG) ASPART 100 UNITS/ML 10ML VIAL ONE (11:08)
--- NOTE | 2019-04-19 12:17 | PN ---
Teaching Attending Note Name of Resident: Get Gagnon ATTENDING PHYSICIAN STATEMENT I saw and evaluated the patient. I reviewed the resident's note and discussed the case with the resident. I agree with the resident's findings and plan as documented with exceptions below. SUBJECTIVE: Patient seen and examined. Left doing well. RN showing rash on the back and forearms, patient reports itching OBJECTIVE: Vital Signs Period Temp Pulse Resp BP Sys/Luke Pulse Ox Last 24 Hr 97.8 F-98.6 F 74-98 18-20 110-148/62-78 97 Intake & Output 04/16/19 04/17/19 04/18/19 04/19/19 23:59 23:59 23:59 23:59 Intake Total 1560 587 8762 500 Balance 1957 869 1575 500 Weight 267 lb 2 oz 261 lb 6.4 oz 262 lb 8 oz 259 lb 4.8 oz General: lying in bed in no acute distress, morbidly obese, BMI 43.5 Chest: decreased effort, no rales or wheezing Neck: soft, supple HEENT: PERRL Abdomen: soft, obese, NT Extremities: right calf wound vac site with slow drainage, ?some increase vs distribution of swelling around the wound vac, overlying blanching erythema, non tender, pos DP pulses, palpable and dopplerable Psych: pleasant, co-operative Skin: maculopapular rash on dorsal trunk, some confluent areas, also on forearm , pruritic ASSESSMENT AND PLAN: 84 yof with PMhx of LE wounds followed at Wound care center, with multiple polymicrobial infection, 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 Continue wound vac, off abx. Rash noted, seems drug reaction, benadryl prn. Advised to monitor at rehab and dermatology follow if concerns. Hold KCL suppl on dc Outpatient follow up with Dr. Dugan, Dr. Ayoub and wound care in 1 week Discussed with ID. Dc to SNF today Discussed with patient and nursing.
--- NOTE | 2019-04-19 12:20 | PN ---
Progress Note (short form) - Note Progress Note: vac in place c/o itchy rash on back (new) Vital Signs Period Temp Pulse Resp BP Sys/Luke Pulse Ox Last 24 Hr 97.8 F-98.6 F 74-98 18-20 110-148/62-78 97 cor-rrr lungs clear abd soft, +pannus ext erythema surrounding the vac is unchanged maculopapular rash on back CBC, BMP 04/19/19 06:14 04/17/19 06:45 Microbiology 04/06/19 15:45 Blood - Peripheral Venous Blood Culture - Final NO GROWTH AFTER 5 DAYS INCUBATION 04/06/19 15:15 Blood - Peripheral Venous Blood Culture - Final NO GROWTH AFTER 5 DAYS INCUBATION 04/06/19 16:19 Leg - Left Lower Gram Stain - Final 04/06/19 16:19 Leg - Left Lower Wound Culture - Final Escherichia Coli Esbl Newspaper Manager Acinetobacter Baumannii/Haemol Proteus Mirabilis Enterococcus Faecalis Mr S Aureus 04/06/19 16:19 Urine - Urine Clean Catch Urine Culture - Final Escherichia Coli Esbl Newspaper Manager Enterococcus Faecium a/p erythema surrounding vac more c/w hematoma and venous stasis- doubt cellulitis- unchanged from friday- last antibiotics on asymptomatic bacteriuria morbid obesity history of resistant organisms- mrsa/ecoli esbl-continue contact isolation rash- ?meds- doubt antibiotics as they were discontinued on denies any new foods management per hospitalist would observe off antibiotics SNF placement planned Problem List - Problems (1) Wound infection Code(s): T14.8XXA - OTHER INJURY OF UNSPECIFIED BODY REGION, INITIAL ENCOUNTER; L08.9 - LOCAL INFECTION OF THE SKIN AND SUBCUTANEOUS TISSUE, UNSP (2) Asymptomatic bacteriuria Code(s): R82.71 - BACTERIURIA (3) Morbid obesity Code(s): E66.01 - MORBID (SEVERE) OBESITY DUE TO EXCESS CALORIES (4) 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
[2019-04-19] MEDS ORDERED: oxyCODONE HCL 5 MG TABLET PO PRN (15:46)
[2019-04-19 16:03] VITALS: BP 140/73; PULSE 78; TEMP 98
[2019-04-19] MEDS: WARFARIN NA 2 MG TABLET (UD) PO SCH (17:40)
--- NOTE | 2019-04-19 17:58 | DS ---
Physical Exam: SUBJECTIVE:Patient seen and examined at bed side , no new complain ,leg swelling improving , S.P I&D. no fever no chills. OBJECTIVE: Vital Signs Period Temp Pulse Resp BP Sys/Luke Pulse Ox Last 24 Hr 97.8 F-98.6 F 74-98 18-20 110-146/62-73 96-97 PHYSICAL EXAM GENERAL: The patient is awake, alert, and fully oriented, in no acute distress. LUNGS: slightly expiratory wheezing this AM HEART: irreg, S1, S2 without murmur ABDOMEN: Soft, nontender, obese, lymphedematous skin changes, normoactive bowel sounds EXTREMITIES: RLE wrapped. LLE with 2x2cm deep hole. edematous margins around the vac ,Some surrounding erythema, Vac in place in left leg , swollen around the vac 5/3 cm improving NEUROLOGICAL: AAOx3. Able to move all extremities. no focal deficit LABS Laboratory Results - last 24 hr 04/18/19 04/19/19 04/19/19 20:11 05:39 06:14 WBC RBC Hgb Hct MCV MCH MCHC RDW Plt Count MPV Absolute Neuts (auto) Neutrophils % Lymphocytes % Monocytes % Eosinophils % Basophils % Nucleated RBC % PT with INR 28.90 H INR 2.43 H POC Glucometer 170 211 04/19/19 04/19/19 04/19/19 06:14 11:13 17:37 WBC 7.1 RBC 4.20 Hgb 11.4 Hct 35.3 MCV 84.2 MCH 27.1 MCHC 32.1 RDW 19.0 H Plt Count 410 D MPV 7.2 L Absolute Neuts (auto) 4.0 Neutrophils % 57.3 Lymphocytes % 25.8 Monocytes % 8.2 Eosinophils % 7.5 H Basophils % 1.2 Nucleated RBC % 0 PT with INR INR POC Glucometer 171 175 CBC, BMP 04/19/19 06:14 04/17/19 06:45 HOSPITAL COURSE: Date of Admission:04/06/19 Date of Discharge: 04/19/19 Microbiology 04/06/19 15:45 Blood - Peripheral Venous Blood Culture - Final NO GROWTH AFTER 5 DAYS INCUBATION 04/06/19 15:15 Blood - Peripheral Venous Blood Culture - Final NO GROWTH AFTER 5 DAYS INCUBATION 04/06/19 16:19 Leg - Left Lower Gram Stain - Final 04/06/19 16:19 Leg - Left Lower Wound Culture - Final Escherichia Coli Esbl Surgical Assistant Acinetobacter Baumannii/Haemol Proteus Mirabilis Enterococcus Faecalis Mr S Aureus 04/06/19 16:19 Urine - Urine Clean Catch Urine Culture - Final Escherichia Coli Esbl Surgical Assistant Enterococcus Faecium ASSESSMENT/PLAN: Pt is an 84 yo F with PMHx of COPD (2L), KATERINA, morbid obesity, NIDDM, Afib on coumadin, DVT, 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 * on meropenem and vanco was on vanc/zosyn stopped 04/06- 04/09, monitor off abx * ESBL in wound cx- pt switched to meropenem 04/09/19 * ID- Dr Jacques * Duplex LLE- negative DVT except post tibial not well visualized * Local wound dressing -done by surgical team/vascular * Per surgery-wound vac will be applied for change 3 times a week, * Coumadin resumed * Continue diet * f.u CT LLE showes fluid collection , S.P I&D by LINDA Davis #Chronic RLE wound with dermatitis/venous stasis * Local wound dressing by podiatry, nail care * ID on case * Vanc/zosyn- Day 3 (stopped 04/09/19) cont meropenem and vanco 1 gm BID day#8 * monitor of abx #Positive UA * asymptomatic bacteriuria * Has had ESBL UTI in past, * Hold off treating Positive UA per ID #Persistent atrial fibrillation coumadin * cont Coumadin 4 mg daily and increase to 5 mg today , check inR daily , goal 2 -3 * Therapeutic currently * Seen by podiatry/sx, cont warfarin * Cont dig,Dig level- nl #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 You received antibiotics. You were seen by vascular surgeon and received wound vac. MEDICATIONS: Warfarin 4 mg daily for 3 days, then INR check, then further dosing per your doctor. Stop your potassium supplementation for now and can be resumed based on potassium levels. Benadryl as needed. Continue other medications as before. INSTRUCTIONS: Continue wound vac as directed. Please monitor your rash, outpatient dermatology follow up if worsening rash noted. FOLLOW UP: INR, BMP on 04/22/2019 at the rehab. You will need follow up with Dr. Dugan in wound care center in 1 week to address further plan. Wound care center is located on 5th floor of [facility]. Or you can have rehab doctor call a surgeon to check up on your left leg and wound vac in [address] Ayoub in 1 week With your primary care physicianin 1 week of discharge from rehab. If you notice any new fevers, chills, worsening leg redness, or pain, rapidly progressing rash with skin flaking or any new concerns, please call 911 or come to the ED. Referrals: Reji Rivero MD [Staff Physician] - Xavi Storey MD [Staff Physician] - 1 Week Tee Dugan DO [Staff Physician] - Disposition: [facility] - Home Medications Comprehensive Discharge Medication List: Ambulatory Orders Allopurinol [Zyloprim -] 100 mg PO DAILY 12/10/18 Digoxin [Lanoxin -] 0.125 mg PO DAILY 12/10/18 Folic Acid 1 mg PO DAILY 12/10/18 Furosemide 40 mg PO BID 12/10/18 Gabapentin 100 mg PO TID 12/10/18 Levothyroxine [Synthroid -] 50 mcg PO DAILY 12/10/18 Losartan Potassium 25 mg PO DAILY 12/10/18 Albuterol 0.083% Nebulizer Bonnie [Ventolin 0.083% Nebulizer Soln -] 1 amp NEB QID 30 Days #1 amp 12/13/18 Insulin Sliding Scale [Novolog Vial Sliding Scale -] 1 vial SQ ACHS #1 units Tiotropium [place] [Spiriva Respimat] 2 puff IH DAILY #30 inhaler 12/13/18 Acetaminophen [Tylenol .Regular Strength -] 325 mg PO PRN PRN 04/06/19 Loratadine 10 mg PO DAILY 04/06/19 Mineral Oil/Hydrophil Petrolat [Dermaphor Ointment] 1 applic TP DAILY 04/06/19 Nystatin Powder [Nystop Powder -] 1 applic TP DAILY 04/06/19 Diphenhydramine HCl [Benadryl Capsule -] 25 mg PO Q6H PRN capsule 04/19/19 Mineral Oil/Pet Hy-Phl [Aquaphor -] 1 applic TP DAILY jar 04/19/19 Nystatin Powder [Nystop Powder -] 1 applic TP DAILY applic 04/19/19 Polyvinyl Alcohol [Artificial Tears] 1 drop OU Q6H PRN drops 04/19/19 Warfarin Na [Coumadin -] 4 mg PO DAILY@1800 tablet 04/19/19 oxyCODONE HCL [Roxicodone -] 5 mg PO Q12H PRN tablet MDD 10 mg 04/19/19 This patient is new to me today: No Emergency Visit: Yes ED Registration Date: 04/06/19 Care time: The patient presented to the Emergency Department on the above date and was hospitalized for further evaluation of their emergent condition. Critical Care patient: No - Discharge Referral Referred to [facility] Med P.C.: No ATTENDING PHYSICIAN STATEMENT I saw and evaluated the patient. I reviewed the resident's note and discussed the case with the resident. I agree with the resident's findings and plan as documented. SUBJECTIVE: OBJECTIVE: ASSESSMENT AND PLAN:
== END 2019-04-19 18:52 | DRG 603 ==
LOC: JER 12:51 → JERBED 17:38 → J8W 20:57
PROVIDERS: ADMIT Hospitalist; ATTEND Hospitalist
PROC: 0HBQXZZ Excision of Finger Nail, External Approach (ICD-10-PCS; 2019-04-07)
PROC: 0HBQXZZ Excision of Finger Nail, External Approach (ICD-10-PCS; 2019-04-07)
PROC: 0HBQXZZ Excision of Finger Nail, External Approach (ICD-10-PCS; 2019-04-07)
PROC: 0HBQXZZ Excision of Finger Nail, External Approach (ICD-10-PCS; 2019-04-07)
PROC: 0HBQXZZ Excision of Finger Nail, External Approach (ICD-10-PCS; 2019-04-07)
PROC: 0HBQXZZ Excision of Finger Nail, External Approach (ICD-10-PCS; 2019-04-07)
PROC: 0HBQXZZ Excision of Finger Nail, External Approach (ICD-10-PCS; 2019-04-07)
PROC: 0HBQXZZ Excision of Finger Nail, External Approach (ICD-10-PCS; 2019-04-07)
PROC: 0HBQXZZ Excision of Finger Nail, External Approach (ICD-10-PCS; 2019-04-07)
PROC: 0HBQXZZ Excision of Finger Nail, External Approach (ICD-10-PCS; 2019-04-07)
PROC: 0Y9J3ZZ Drainage of Left Lower Leg, Percutaneous Approach (ICD-10-PCS; principal; 2019-04-14)
DX: L03.116 Cellulitis of left lower limb (principal); I48.1 Persistent atrial fibrillation; Z68.41 Body mass index [BMI] 40.0-44.9, adult; Z79.01 Long term (current) use of anticoagulants; E11.9 Type 2 diabetes mellitus without complications; J44.9 Chronic obstructive pulmonary disease, unspecified; I11.0 Hypertensive heart disease with heart failure; I50.9 Heart failure, unspecified; E78.5 Hyperlipidemia, unspecified; G47.33 Obstructive sleep apnea (adult) (pediatric); Z87.440 Personal history of urinary (tract) infections; E66.01 Morbid (severe) obesity due to excess calories; Z86.718 Personal history of other venous thrombosis and embolism; I87.2 Venous insufficiency (chronic) (peripheral); Z87.891 Personal history of nicotine dependence; Z79.4 Long term (current) use of insulin; B35.1 Tinea unguium; Z89.421 Acquired absence of other right toe(s); E03.9 Hypothyroidism, unspecified; R82.71 Bacteriuria; L08.9 Local infection of the skin and subcutaneous tissue, unspecified; S81.802A Unspecified open wound, left lower leg, initial encounter; W22.8XXA Striking against or struck by other objects, initial encounter; Y93.89 Activity, other specified; Y92.89 Other specified places as the place of occurrence of the external cause; Y99.8 Other external cause status
CPT/HCPCS: 36415; 73590-TC-LT-FY; 73700-TC-RT; 80048; 80053; 80162; 81003; 82962; 83605; 83735; 84100; 85025; 85610; 85651; 85730; 86140; 87040; 87070; 87086; 87186; 87205; 93005; 93010; 93971-TC; 94640; 97116-GP; 97161-GP; 99284-25; G0463-25; G0480

== ENCOUNTER 2021-06-28 13:53 | Inpatient (IN) | payer OTHER, MEDICARE ==
[2021-06-28 16:47] LABS: BASO % 1.4 % (0-2.0); EOS % 2.9 % (0-4.5); HEMATOCRIT 41.8 % (32.4-45.2); HEMOGLOBIN 13.9 GM/dL (10.7-15.3); LYMPH % 24.8 % (8-40); MCH 29.8 pg (25.7-33.7); MCHC 33.3 g/dl (32.0-36.0); MEAN CELL VOLUME 89.3 fl (80-96); MEAN PLT VOLUME 9.5 fl (7.5-11.1); MONO % 5.7 % (3.8-10.2); NEUT % 65.2 % (42.8-82.8); PLATELET COUNT 240 10^3/uL (134-434); RBC 4.68 M/mm3 (3.60-5.2); RDW 16.5 % (11.6-15.6); WHITE BLOOD COUNT 7.2 K/mm3 (4.0-10.0)
[2021-06-28 16:57] LABS: INR 2.06 (0.83-1.09); PROTHROMBIN TIME (PATIENT) 24.3 SEC (9.7-13.0)
[2021-06-28 16:59] LABS: ACTIVATED PTT 33.5 SECONDS (25.2-36.5)
[2021-06-28 17:11] LABS: EPI CELLS 3 /uL (0-25.1); HYALINE CASTS 2 /uL (0-3.1); URINE APPEARANCE CLOUDY; URINE BACTERIA >9,000 /uL (0-1359); URINE BILIRUBIN NEGATIVE (NEGATIVE); URINE COLOR YELLOW; URINE GLUCOSE (UA) NEGATIVE (NEGATIVE); URINE KETONE NEGATIVE (NEGATIVE); URINE LEUK ESTERASE 2+ (NEGATIVE); URINE NITRITE NEGATIVE (NEGATIVE); URINE PROTEIN NEGATIVE (NEGATIVE); URINE RBC 10 /uL (0-23.9); URINE WBC 481 /uL (0-25.8)
[2021-06-28 17:12] LABS: ALBUMIN 3.3 g/dl (3.4-5.0); BLOOD UREA NITROGEN 28.2 mg/dL (7-18); CALCIUM 8.8 mg/dL (8.5-10.1)
[2021-06-28 17:15] LABS: CREATININE 0.9 mg/dL (0.55-1.3)
[2021-06-28 17:17] LABS: BILIRUBIN,TOTAL 0.9 mg/dL (0.2-1)
[2021-06-28] MEDS ORDERED: PIPERACILLIN/TAZOB 4.5 GM 4.5 GM in DEXTROSE 5%-WATER 100 ML IVPB ONE (17:41)
[2021-06-28] MEDS ORDERED: VANCOMYCIN 1 GM in D5W (PRE-DOCKED) 1,000 MG/250 ML IVPB ONE (17:47)
[2021-06-28] MEDS ORDERED: PIPERACILLIN/TAZOB 4.5 GM 4.5 GM/100 ML BAG IVPB ONE (18:08)
[2021-06-28] MEDS ORDERED: VANCOMYCIN 1 GRAM (PRE-DOCKED) 1,000 MG/250 ML BAG IVPB ONE (18:08)
[2021-06-28] MEDS ORDERED: methylPREDNISolone NA SUCC 125 MG/2 ML VIAL ONE (18:34)
[2021-06-28] MEDS ORDERED: methylPREDNISolone NA SUCC 125 MG/2 ML VIAL IVPUSH ONE (18:39)
[2021-06-28] MEDS ORDERED: ALBUTEROL SO4 2.5/IPRATROPIUM 0.5 INH SOL 3 ML VIAL.NEB. NEB ONE ×4 (18:49→19:34)
[2021-06-28] MEDS: ALBUTEROL SO4 2.5/IPRATROPIUM 0.5 INH SOL 3 ML VIAL.NEB. NEB SCH ×4 (18:57→19:37)
[2021-06-28] MEDS ORDERED: DIGOXIN 0.125 MG TABLET PO ONE (19:21)
[2021-06-28] MEDS ORDERED: METOPROLOL TARTRATE 5 MG/5 ML VIAL IVPUSH ONE (20:12)
[2021-06-28] MEDS ORDERED: METOPROLOL TARTRATE 5 MG/5 ML VIAL ONE (20:15)
[2021-06-28 22:27] LABS: PHOSPHOROUS 3.8 mg/dL (2.5-4.9)
[2021-06-28] MEDS ORDERED: METOPROLOL TARTRATE 5 MG/5 ML VIAL IVPUSH PRN (22:33)
[2021-06-28] MEDS ORDERED: MEROPENEM 1 GM VIAL (RESTRICTED TO ID) IVPB ONE (23:00)
[2021-06-28] MEDS: MEROPENEM 1 GM in DEXTROSE 5%-WATER 100 ML IVPB SCH (23:07)
[2021-06-29] MEDS ORDERED: MEROPENEM 1 GM VIAL (RESTRICTED TO ID) IVPB ONE ×3 (05:34→17:41)
[2021-06-29] MEDS ORDERED: DEXTROSE 5%-WATER 100 ML IVPB ONE ×3 (05:34→17:41)
[2021-06-29] MEDS: MEROPENEM 1 GM in DEXTROSE 5%-WATER 100 ML IVPB SCH ×3 (05:58→17:45)
[2021-06-29] MEDS: FUROSEMIDE 40 MG TABLET (FP) PO SCH ×2 (06:33→13:30)
[2021-06-29] MEDS: LEVOTHYROXINE NA 50 MCG TABLET (FP) PO SCH (06:33)
[2021-06-29] MEDS: GABAPENTIN 100 MG CAPSULE PO SCH ×3 (06:33→21:06)
[2021-06-29] MEDS: INSULIN SLIDING SCALE (NOVOLOG) 1 VIAL SQ SCH ×4 (06:38→21:08)
[2021-06-29 07:02] LABS: HEMATOCRIT 40.8 % (32.4-45.2); HEMOGLOBIN 13.5 GM/dL (10.7-15.3); MCH 29.7 pg (25.7-33.7); MCHC 33.1 g/dl (32.0-36.0); MEAN CELL VOLUME 89.5 fl (80-96); PLATELET COUNT 215 10^3/uL (134-434); RBC 4.55 M/mm3 (3.60-5.2); RDW 16.3 % (11.6-15.6); WHITE BLOOD COUNT 6.9 K/mm3 (4.0-10.0)
[2021-06-29 07:08] LABS: INR 2.23 (0.83-1.09); PROTHROMBIN TIME (PATIENT) 26.3 SEC (9.7-13.0)
[2021-06-29 07:11] LABS: ACTIVATED PTT 35.2 SECONDS (25.2-36.5)
[2021-06-29 07:21] LABS: CHLORIDE 105 mmol/L (98-107); SODIUM 142 mmol/L (136-145)
[2021-06-29 07:26] LABS: ANION GAP 11 MMOL/L (8-16); BLOOD UREA NITROGEN 30.7 mg/dL (7-18); CALCIUM 9.3 mg/dL (8.5-10.1); CO2 25 mmol/L (21-32); GLUCOSE,RANDOM 279 mg/dL (74-106); MAGNESIUM 1.9 mg/dL (1.8-2.4)
[2021-06-29 07:29] LABS: SGOT/AST 48 U/L (15-37); SGPT/ALT 16 U/L (13-61)
[2021-06-29 07:30] LABS: CHOLESTEROL 145 mg/dL (50-200); CREATININE 1.2 mg/dL (0.55-1.3); PHOSPHOROUS 3.1 mg/dL (2.5-4.9)
[2021-06-29 07:31] LABS: BILIRUBIN,TOTAL 0.7 mg/dL (0.2-1); LDL CHOLESTEROL (ONLY SJRH) 91 mg/dL (5-100); TOT PROT 6.5 g/dl (6.4-8.2); TRIGLYCERIDES 95 mg/dL (0-150)
[2021-06-29 07:32] LABS: ALK PHOS 91 U/L (45-117); HDL CHOLESTEROL 34 mg/dL (40-60)
[2021-06-29 09:05] LABS: ANISOCYTOSIS 1+; MACROCYTOSIS 0; OVALOCYTE 1+; PLATELET ESTIMATE NORMAL; TEAR DROP CELLS 1+
[2021-06-29] MEDS ORDERED: NAPH,MB-DB/K PH,MBDB POWDER PACKET GT SCH (10:00)
[2021-06-29] MEDS: ALLOPURINOL 100 MG TABLET (FP) PO SCH (10:18)
[2021-06-29] MEDS: PANTOPRAZOLE 40 MG TABLET PO SCH (10:18)
[2021-06-29] MEDS: DIGOXIN 0.125 MG TABLET PO SCH (10:18)
[2021-06-29] MEDS: LOSARTAN POTASSIUM 50 MG TABLET PO SCH (10:18)
[2021-06-29] MEDS: ASPIRIN 81 MG CHEWABLE TABLETS PO SCH (10:25)
[2021-06-29] MEDS ORDERED: SODIUM CHLORIDE 1,000 ML IV SCH (10:45)
[2021-06-29] MEDS: ZINC OXIDE/PANTHENOL/VITAMIN E 56 GM TUBE TP SCH (11:32)
[2021-06-29] MEDS: TIOTROPIUM BROMIDE 2.5 MCG (SPIRIVA) RESPIMAT INHALER IH SCH (11:33)
[2021-06-29] MEDS ORDERED: PT OWN MED DRAWER 7, Y5N ONE (12:15)
[2021-06-29] MEDS: oxyCODONE HCL 5 MG TABLET PO PRN (14:16)
[2021-06-29] MEDS: WARFARIN NA 2 MG TABLET PO SCH (17:45)
[2021-06-30] MEDS ORDERED: DEXTROSE 5%-WATER 100 ML IVPB ONE ×2 (02:03→09:18)
[2021-06-30] MEDS ORDERED: MEROPENEM 1 GM VIAL (RESTRICTED TO ID) IVPB ONE ×2 (02:03→09:18)
[2021-06-30] MEDS: MEROPENEM 1 GM in DEXTROSE 5%-WATER 100 ML IVPB SCH ×2 (02:08→09:23)
[2021-06-30] MEDS: FUROSEMIDE 40 MG TABLET (FP) PO SCH ×2 (06:13→13:26)
[2021-06-30] MEDS: INSULIN SLIDING SCALE (NOVOLOG) 1 VIAL SQ SCH ×4 (06:13→21:16)
[2021-06-30] MEDS: GABAPENTIN 100 MG CAPSULE PO SCH ×3 (06:13→21:16)
[2021-06-30] MEDS: LEVOTHYROXINE NA 50 MCG TABLET (FP) PO SCH (06:13)
[2021-06-30 07:46] LABS: BASO % 0.3 % (0-2.0); EOS % 1.2 % (0-4.5); HEMATOCRIT 39.2 % (32.4-45.2); HEMOGLOBIN 12.9 GM/dL (10.7-15.3); MCH 29.3 pg (25.7-33.7); MCHC 32.9 g/dl (32.0-36.0); MONO % 6.7 % (3.8-10.2); NEUT % 74.8 % (42.8-82.8); PLATELET COUNT 197 10^3/uL (134-434); RDW 16.1 % (11.6-15.6)
[2021-06-30 08:01] LABS: CHLORIDE 105 mmol/L (98-107); SODIUM 140 mmol/L (136-145)
[2021-06-30 08:03] LABS: CALCIUM 8.3 mg/dL (8.5-10.1)
[2021-06-30 08:04] LABS: ALBUMIN 2.8 g/dl (3.4-5.0); ANION GAP 7 MMOL/L (8-16); CO2 28 mmol/L (21-32); GLUCOSE,RANDOM 122 mg/dL (74-106); MAGNESIUM 2.1 mg/dL (1.8-2.4)
[2021-06-30 08:07] LABS: BILIRUBIN,TOTAL 0.4 mg/dL (0.2-1); PHOSPHOROUS 3.3 mg/dL (2.5-4.9); SGOT/AST 40 U/L (15-37); SGPT/ALT 14 U/L (13-61)
[2021-06-30 08:09] LABS: TOT PROT 6.2 g/dl (6.4-8.2)
[2021-06-30 08:10] LABS: ALK PHOS 82 U/L (45-117)
[2021-06-30] MEDS ORDERED: PT OWN MED DRAWER 7, Y5N ONE (09:19)
[2021-06-30] MEDS: TIOTROPIUM BROMIDE 2.5 MCG (SPIRIVA) RESPIMAT INHALER IH SCH (09:25)
[2021-06-30] MEDS: PANTOPRAZOLE 40 MG TABLET PO SCH (09:25)
[2021-06-30] MEDS: ASPIRIN 81 MG CHEWABLE TABLETS PO SCH (09:25)
[2021-06-30] MEDS: ALLOPURINOL 100 MG TABLET (FP) PO SCH (09:25)
[2021-06-30] MEDS: LOSARTAN POTASSIUM 50 MG TABLET PO SCH (09:25)
[2021-06-30] MEDS: DIGOXIN 0.125 MG TABLET PO SCH (09:31)
[2021-06-30] MEDS: ZINC OXIDE/PANTHENOL/VITAMIN E 56 GM TUBE TP SCH (09:32)
[2021-06-30] MEDS ORDERED: AZTREONAM 1 GM VIAL (RESTRICTED TO ID) ONE (16:59)
[2021-06-30] MEDS ORDERED: DEXTROSE 5%-WATER - 50 ML IVPB ONE (16:59)
[2021-06-30] MEDS: AZTREONAM 1 GM in DEXTROSE 5%-WATER - 50 ML IVPB SCH (17:06)
[2021-06-30] MEDS: WARFARIN NA 2 MG TABLET PO SCH (17:07)
[2021-06-30] MEDS ORDERED: AZTREONAM 1 GM in DEXTROSE 5%-WATER - 50 ML IVPB SCH ×2 (20:00→22:00)
[2021-07-01] MEDS: oxyCODONE HCL 5 MG TABLET PO PRN (01:00)
[2021-07-01] MEDS ORDERED: AZTREONAM 1 GM VIAL (RESTRICTED TO ID) ONE ×3 (01:03→17:04)
[2021-07-01] MEDS ORDERED: DEXTROSE 5%-WATER - 50 ML IVPB ONE ×3 (01:04→17:04)
[2021-07-01] MEDS: AZTREONAM 1 GM in DEXTROSE 5%-WATER - 50 ML IVPB SCH ×3 (01:05→17:13)
[2021-07-01] MEDS: FUROSEMIDE 40 MG TABLET (FP) PO SCH ×2 (05:20→13:32)
[2021-07-01] MEDS: GABAPENTIN 100 MG CAPSULE PO SCH ×3 (05:20→22:44)
[2021-07-01] MEDS: INSULIN SLIDING SCALE (NOVOLOG) 1 VIAL SQ SCH ×4 (06:13→22:38)
[2021-07-01] MEDS: LEVOTHYROXINE NA 50 MCG TABLET (FP) PO SCH (06:14)
[2021-07-01 07:37] LABS: CALCIUM 8.2 mg/dL (8.5-10.1)
[2021-07-01 07:39] LABS: BLOOD UREA NITROGEN 45.9 mg/dL (7-18)
[2021-07-01 07:50] LABS: BASO % 0.9 % (0-2.0); EOS % 4.1 % (0-4.5); HEMATOCRIT 38.7 % (32.4-45.2); HEMOGLOBIN 12.9 GM/dL (10.7-15.3); LYMPH % 15.7 % (8-40); MCH 29.9 pg (25.7-33.7); MCHC 33.3 g/dl (32.0-36.0); MEAN CELL VOLUME 89.6 fl (80-96); MEAN PLT VOLUME 9.1 fl (7.5-11.1); NEUT % 71.3 % (42.8-82.8); PLATELET COUNT 196 10^3/uL (134-434); RBC 4.32 M/mm3 (3.60-5.2); RDW 16.5 % (11.6-15.6); WHITE BLOOD COUNT 9.7 K/mm3 (4.0-10.0)
[2021-07-01 08:22] LABS: INR 2.65 (0.83-1.09)
[2021-07-01] MEDS ORDERED: PT OWN MED DRAWER 7, Y5N ONE (09:23)
[2021-07-01] MEDS: PANTOPRAZOLE 40 MG TABLET PO SCH (09:47)
[2021-07-01] MEDS: LOSARTAN POTASSIUM 50 MG TABLET PO SCH (09:47)
[2021-07-01] MEDS: DIGOXIN 0.125 MG TABLET PO SCH (09:47)
[2021-07-01] MEDS: ALLOPURINOL 100 MG TABLET (FP) PO SCH (09:47)
[2021-07-01] MEDS: TIOTROPIUM BROMIDE 2.5 MCG (SPIRIVA) RESPIMAT INHALER IH SCH (09:50)
[2021-07-01] MEDS: ZINC OXIDE/PANTHENOL/VITAMIN E 56 GM TUBE TP SCH (09:50)
[2021-07-01] MEDS: ASPIRIN 81 MG CHEWABLE TABLETS PO SCH (09:50)
[2021-07-01] MEDS ORDERED: WARFARIN NA 2 MG TABLET PO SCH (10:00)
[2021-07-01] MEDS: WARFARIN NA 2 MG TABLET PO SCH (17:14)
[2021-07-01] MEDS ORDERED: SODIUM CHLORIDE 1,000 ML IV STA (18:11)
[2021-07-01 22:05] VITALS: BMI 41.2
[2021-07-02] MEDS ORDERED: DEXTROSE 5%-WATER - 50 ML IVPB ONE ×3 (00:51→16:16)
[2021-07-02] MEDS ORDERED: AZTREONAM 1 GM VIAL (RESTRICTED TO ID) ONE ×3 (00:51→16:16)
[2021-07-02] MEDS: oxyCODONE HCL 5 MG TABLET PO PRN (01:54)
[2021-07-02] MEDS: AZTREONAM 1 GM in DEXTROSE 5%-WATER - 50 ML IVPB SCH ×3 (01:54→17:13)
[2021-07-02] MEDS: INSULIN SLIDING SCALE (NOVOLOG) 1 VIAL SQ SCH ×4 (06:21→21:32)
[2021-07-02] MEDS: GABAPENTIN 100 MG CAPSULE PO SCH ×3 (06:22→21:22)
[2021-07-02] MEDS: FUROSEMIDE 40 MG TABLET (FP) PO SCH ×2 (06:22→14:44)
[2021-07-02] MEDS: LEVOTHYROXINE NA 50 MCG TABLET (FP) PO SCH (06:22)
[2021-07-02 07:58] LABS: CALCIUM 7.6 mg/dL (8.5-10.1)
[2021-07-02 08:00] LABS: ALBUMIN 2.3 g/dl (3.4-5.0); BASO % 0.7 % (0-2.0); BLOOD UREA NITROGEN 53.5 mg/dL (7-18); EOS % 6.2 % (0-4.5); HEMATOCRIT 34.1 % (32.4-45.2); HEMOGLOBIN 11.6 GM/dL (10.7-15.3); LYMPH % 25.8 % (8-40); MCH 30.1 pg (25.7-33.7); MCHC 33.9 g/dl (32.0-36.0); MEAN CELL VOLUME 88.9 fl (80-96); MONO % 8.7 % (3.8-10.2); NEUT % 58.6 % (42.8-82.8); PLATELET COUNT 185 10^3/uL (134-434); RBC 3.84 M/mm3 (3.60-5.2); RDW 15.9 % (11.6-15.6); WHITE BLOOD COUNT 7.9 K/mm3 (4.0-10.0)
[2021-07-02 08:02] LABS: CREATININE 1.1 mg/dL (0.55-1.3)
[2021-07-02 08:03] LABS: BILIRUBIN,TOTAL 0.5 mg/dL (0.2-1); TOT PROT 5.2 g/dl (6.4-8.2)
[2021-07-02] MEDS: PANTOPRAZOLE 40 MG TABLET PO SCH (09:51)
[2021-07-02] MEDS: ASPIRIN 81 MG CHEWABLE TABLETS PO SCH (09:52)
[2021-07-02] MEDS: MULTIVITAMINS (DAILY MVI) TABLET (FP) PO SCH (09:52)
[2021-07-02] MEDS: DIGOXIN 0.125 MG TABLET PO SCH (09:52)
[2021-07-02] MEDS: ZINC SULFATE 220 MG CAPSULE (FP) PO SCH (09:52)
[2021-07-02] MEDS: ALLOPURINOL 100 MG TABLET (FP) PO SCH (09:52)
[2021-07-02] MEDS: TIOTROPIUM BROMIDE 2.5 MCG (SPIRIVA) RESPIMAT INHALER IH SCH (09:53)
[2021-07-02] MEDS: ZINC OXIDE/PANTHENOL/VITAMIN E 56 GM TUBE TP SCH (09:53)
[2021-07-02] MEDS: LOSARTAN POTASSIUM 50 MG TABLET PO SCH (11:14)
[2021-07-02 13:50] LABS: INR 2.58 (0.83-1.09); PROTHROMBIN TIME (PATIENT) 30.5 SEC (9.7-13.0)
[2021-07-02] MEDS: WARFARIN NA 2 MG TABLET PO SCH (17:14)
[2021-07-03] MEDS ORDERED: AZTREONAM 1 GM VIAL (RESTRICTED TO ID) ONE ×3 (01:16→17:03)
[2021-07-03] MEDS ORDERED: DEXTROSE 5%-WATER - 50 ML IVPB ONE ×3 (01:17→17:03)
[2021-07-03] MEDS: AZTREONAM 1 GM in DEXTROSE 5%-WATER - 50 ML IVPB SCH ×3 (01:24→17:05)
[2021-07-03] MEDS: GABAPENTIN 100 MG CAPSULE PO SCH ×3 (05:46→22:11)
[2021-07-03] MEDS: FUROSEMIDE 40 MG TABLET (FP) PO SCH ×2 (05:46→13:16)
[2021-07-03] MEDS: LEVOTHYROXINE NA 50 MCG TABLET (FP) PO SCH (06:27)
[2021-07-03] MEDS: INSULIN SLIDING SCALE (NOVOLOG) 1 VIAL SQ SCH ×4 (06:27→22:11)
[2021-07-03 07:57] LABS: HEMATOCRIT 34.3 % (32.4-45.2); HEMOGLOBIN 11.9 GM/dL (10.7-15.3); MCH 30.6 pg (25.7-33.7); MCHC 34.7 g/dl (32.0-36.0); MEAN CELL VOLUME 88.3 fl (80-96); MEAN PLT VOLUME 9.1 fl (7.5-11.1); PLATELET COUNT 172 10^3/uL (134-434); RBC 3.89 M/mm3 (3.60-5.2); RDW 15.8 % (11.6-15.6); WHITE BLOOD COUNT 8.3 K/mm3 (4.0-10.0)
[2021-07-03 08:08] LABS: BLOOD UREA NITROGEN 50.1 mg/dL (7-18)
[2021-07-03 08:11] LABS: CREATININE 0.9 mg/dL (0.55-1.3)
[2021-07-03 08:21] LABS: CALCIUM 9.3 mg/dL (8.5-10.1)
[2021-07-03] MEDS: LOSARTAN POTASSIUM 50 MG TABLET PO SCH (09:50)
[2021-07-03] MEDS: DIGOXIN 0.125 MG TABLET PO SCH (09:50)
[2021-07-03] MEDS: ALLOPURINOL 100 MG TABLET (FP) PO SCH (09:50)
[2021-07-03] MEDS: PANTOPRAZOLE 40 MG TABLET PO SCH (09:51)
[2021-07-03] MEDS: TIOTROPIUM BROMIDE 2.5 MCG (SPIRIVA) RESPIMAT INHALER IH SCH (09:51)
[2021-07-03] MEDS: ZINC SULFATE 220 MG CAPSULE (FP) PO SCH (09:51)
[2021-07-03] MEDS: ZINC OXIDE/PANTHENOL/VITAMIN E 56 GM TUBE TP SCH (09:51)
[2021-07-03] MEDS: ASPIRIN 81 MG CHEWABLE TABLETS PO SCH (09:51)
[2021-07-03] MEDS: MULTIVITAMINS (DAILY MVI) TABLET (FP) PO SCH (09:51)
[2021-07-03 10:19] LABS: INR 2.89 (0.83-1.09); PROTHROMBIN TIME (PATIENT) 32.7 SEC (9.7-13.0)
[2021-07-03] MEDS: WARFARIN NA 2 MG TABLET PO SCH (17:06)
[2021-07-04] MEDS ORDERED: AZTREONAM 1 GM VIAL (RESTRICTED TO ID) ONE ×3 (00:59→16:56)
[2021-07-04] MEDS ORDERED: DEXTROSE 5%-WATER - 50 ML IVPB ONE ×3 (01:00→16:56)
[2021-07-04] MEDS: AZTREONAM 1 GM in DEXTROSE 5%-WATER - 50 ML IVPB SCH ×2 (01:03→10:13)
[2021-07-04] MEDS: INSULIN SLIDING SCALE (NOVOLOG) 1 VIAL SQ SCH ×4 (06:10→21:15)
[2021-07-04] MEDS: GABAPENTIN 100 MG CAPSULE PO SCH ×3 (06:16→21:16)
[2021-07-04] MEDS: LEVOTHYROXINE NA 50 MCG TABLET (FP) PO SCH (06:16)
[2021-07-04] MEDS: FUROSEMIDE 40 MG TABLET (FP) PO SCH ×2 (06:16→14:51)
[2021-07-04 08:11] LABS: HEMATOCRIT 37.4 % (32.4-45.2); HEMOGLOBIN 12.5 GM/dL (10.7-15.3); MCH 29.6 pg (25.7-33.7); MCHC 33.4 g/dl (32.0-36.0); MEAN CELL VOLUME 88.6 fl (80-96); MEAN PLT VOLUME 9.1 fl (7.5-11.1); PLATELET COUNT 201 10^3/uL (134-434); RBC 4.22 M/mm3 (3.60-5.2); WHITE BLOOD COUNT 8.1 K/mm3 (4.0-10.0)
[2021-07-04 08:25] LABS: PROTHROMBIN TIME (PATIENT) 35.5 SEC (9.7-13.0)
[2021-07-04 08:29] LABS: BLOOD UREA NITROGEN 38.5 mg/dL (7-18); CALCIUM 9.3 mg/dL (8.5-10.1)
[2021-07-04 08:32] LABS: CREATININE 0.7 mg/dL (0.55-1.3)
[2021-07-04] MEDS: ZINC SULFATE 220 MG CAPSULE (FP) PO SCH (10:14)
[2021-07-04] MEDS: LOSARTAN POTASSIUM 50 MG TABLET PO SCH (10:14)
[2021-07-04] MEDS: ALLOPURINOL 100 MG TABLET (FP) PO SCH (10:14)
[2021-07-04] MEDS: ASPIRIN 81 MG CHEWABLE TABLETS PO SCH (10:14)
[2021-07-04] MEDS: ZINC OXIDE/PANTHENOL/VITAMIN E 56 GM TUBE TP SCH (10:15)
[2021-07-04] MEDS: MULTIVITAMINS (DAILY MVI) TABLET (FP) PO SCH (10:15)
[2021-07-04] MEDS: PANTOPRAZOLE 40 MG TABLET PO SCH (10:15)
[2021-07-04] MEDS: DIGOXIN 0.125 MG TABLET PO SCH (10:15)
[2021-07-04] MEDS: TIOTROPIUM BROMIDE 2.5 MCG (SPIRIVA) RESPIMAT INHALER IH SCH (10:16)
[2021-07-04] MEDS: METOPROLOL TARTRATE 25 MG TABLET (FP) PO SCH ×2 (12:19→21:16)
[2021-07-04] MEDS: ROSUVASTATIN CA 20 MG TABLET (FP) PO SCH (21:16)
[2021-07-05] MEDS: INSULIN SLIDING SCALE (NOVOLOG) 1 VIAL SQ SCH ×4 (06:02→21:38)
[2021-07-05] MEDS: GABAPENTIN 100 MG CAPSULE PO SCH ×3 (06:09→21:38)
[2021-07-05] MEDS: LEVOTHYROXINE NA 50 MCG TABLET (FP) PO SCH (06:09)
[2021-07-05] MEDS: FUROSEMIDE 40 MG TABLET (FP) PO SCH ×2 (06:09→13:59)
[2021-07-05 08:06] LABS: HEMATOCRIT 39.2 % (32.4-45.2); HEMOGLOBIN 13.1 GM/dL (10.7-15.3); MCH 29.8 pg (25.7-33.7); MCHC 33.5 g/dl (32.0-36.0); MEAN PLT VOLUME 8.8 fl (7.5-11.1); PLATELET COUNT 212 10^3/uL (134-434); RDW 15.7 % (11.6-15.6); WHITE BLOOD COUNT 9.6 K/mm3 (4.0-10.0)
[2021-07-05 08:08] LABS: BLOOD UREA NITROGEN 31.6 mg/dL (7-18); CALCIUM 9.5 mg/dL (8.5-10.1); MAGNESIUM 2.3 mg/dL (1.8-2.4)
[2021-07-05 08:12] LABS: CREATININE 0.8 mg/dL (0.55-1.3); PHOSPHOROUS 2.7 mg/dL (2.5-4.9)
[2021-07-05 10:07] LABS: INR 2.81 (0.83-1.09); PROTHROMBIN TIME (PATIENT) 31.8 SEC (9.7-13.0)
[2021-07-05] MEDS: ALLOPURINOL 100 MG TABLET (FP) PO SCH (10:23)
[2021-07-05] MEDS: ASPIRIN 81 MG CHEWABLE TABLETS PO SCH (10:24)
[2021-07-05] MEDS: PANTOPRAZOLE 40 MG TABLET PO SCH (10:24)
[2021-07-05] MEDS: MULTIVITAMINS (DAILY MVI) TABLET (FP) PO SCH (10:24)
[2021-07-05] MEDS: ZINC OXIDE/PANTHENOL/VITAMIN E 56 GM TUBE TP SCH (10:24)
[2021-07-05] MEDS: LOSARTAN POTASSIUM 50 MG TABLET PO SCH (10:24)
[2021-07-05] MEDS: ZINC SULFATE 220 MG CAPSULE (FP) PO SCH (10:35)
[2021-07-05] MEDS: METOPROLOL TARTRATE 25 MG TABLET (FP) PO SCH (10:35)
[2021-07-05] MEDS: DIGOXIN 0.125 MG TABLET PO SCH (10:35)
[2021-07-05] MEDS ORDERED: LIP BALM (CHAPSTICK) TP PRN (11:10)
[2021-07-05] MEDS: TIOTROPIUM BROMIDE 2.5 MCG (SPIRIVA) RESPIMAT INHALER IH SCH (11:37)
[2021-07-05] MEDS: ROSUVASTATIN CA 20 MG TABLET (FP) PO SCH (21:38)
[2021-07-06] MEDS: INSULIN SLIDING SCALE (NOVOLOG) 1 VIAL SQ SCH ×4 (06:14→21:40)
[2021-07-06] MEDS: LEVOTHYROXINE NA 50 MCG TABLET (FP) PO SCH (06:14)
[2021-07-06] MEDS: FUROSEMIDE 40 MG TABLET (FP) PO SCH (06:14)
[2021-07-06] MEDS: GABAPENTIN 100 MG CAPSULE PO SCH ×3 (06:14→21:40)
[2021-07-06 07:08] LABS: HEMATOCRIT 37.5 % (32.4-45.2); HEMOGLOBIN 12.4 GM/dL (10.7-15.3); MCH 29.6 pg (25.7-33.7); MCHC 33.2 g/dl (32.0-36.0); MEAN CELL VOLUME 89.1 fl (80-96); PLATELET COUNT 210 10^3/uL (134-434); RBC 4.21 M/mm3 (3.60-5.2); RDW 15.7 % (11.6-15.6); WHITE BLOOD COUNT 8.3 K/mm3 (4.0-10.0)
[2021-07-06 07:31] LABS: CALCIUM 9.3 mg/dL (8.5-10.1)
[2021-07-06 09:00] LABS: INR 2.46 (0.83-1.09)
[2021-07-06] MEDS: DIGOXIN 0.125 MG TABLET PO SCH (10:13)
[2021-07-06] MEDS: LOSARTAN POTASSIUM 50 MG TABLET PO SCH (10:13)
[2021-07-06] MEDS: ASPIRIN 81 MG CHEWABLE TABLETS PO SCH (10:13)
[2021-07-06] MEDS: ALLOPURINOL 100 MG TABLET (FP) PO SCH (10:13)
[2021-07-06] MEDS: MULTIVITAMINS (DAILY MVI) TABLET (FP) PO SCH (10:13)
[2021-07-06] MEDS: ZINC OXIDE/PANTHENOL/VITAMIN E 56 GM TUBE TP SCH (10:14)
[2021-07-06] MEDS: TIOTROPIUM BROMIDE 2.5 MCG (SPIRIVA) RESPIMAT INHALER IH SCH (10:14)
[2021-07-06] MEDS: PANTOPRAZOLE 40 MG TABLET PO SCH (10:14)
[2021-07-06] MEDS: SODIUM CHLORIDE 1,000 ML IV SCH (11:09)
[2021-07-06] MEDS: ROSUVASTATIN CA 20 MG TABLET (FP) PO SCH (21:40)
[2021-07-07] MEDS: SODIUM CHLORIDE 1,000 ML IV SCH (00:44)
[2021-07-07] MEDS: GABAPENTIN 100 MG CAPSULE PO SCH ×3 (05:12→22:16)
[2021-07-07] MEDS: LEVOTHYROXINE NA 50 MCG TABLET (FP) PO SCH (07:20)
[2021-07-07] MEDS: INSULIN SLIDING SCALE (NOVOLOG) 1 VIAL SQ SCH ×4 (07:34→22:16)
[2021-07-07 07:52] LABS: HEMATOCRIT 37.4 % (32.4-45.2); HEMOGLOBIN 12.6 GM/dL (10.7-15.3); MCHC 33.7 g/dl (32.0-36.0); MEAN CELL VOLUME 88.8 fl (80-96); MEAN PLT VOLUME 9.2 fl (7.5-11.1); PLATELET COUNT 206 10^3/uL (134-434); RBC 4.21 M/mm3 (3.60-5.2); RDW 15.3 % (11.6-15.6); WHITE BLOOD COUNT 8.5 K/mm3 (4.0-10.0)
[2021-07-07 08:22] LABS: BLOOD UREA NITROGEN 31.6 mg/dL (7-18)
[2021-07-07 08:25] LABS: CREATININE 0.7 mg/dL (0.55-1.3)
[2021-07-07] MEDS ORDERED: PT OWN MED DRAWER 7, Y5N ONE (09:16)
[2021-07-07 09:37] LABS: INR 1.88 (0.83-1.09); PROTHROMBIN TIME (PATIENT) 21.2 SEC (9.7-13.0)
[2021-07-07] MEDS: ASPIRIN 81 MG CHEWABLE TABLETS PO SCH (09:47)
[2021-07-07] MEDS: MULTIVITAMINS (DAILY MVI) TABLET (FP) PO SCH (09:47)
[2021-07-07] MEDS: PANTOPRAZOLE 40 MG TABLET PO SCH (09:47)
[2021-07-07] MEDS: LOSARTAN POTASSIUM 50 MG TABLET PO SCH (09:47)
[2021-07-07] MEDS: ALLOPURINOL 100 MG TABLET (FP) PO SCH (09:47)
[2021-07-07] MEDS: ZINC OXIDE/PANTHENOL/VITAMIN E 56 GM TUBE TP SCH (09:48)
[2021-07-07] MEDS: DIGOXIN 0.125 MG TABLET PO SCH (09:54)
[2021-07-07] MEDS: TIOTROPIUM BROMIDE 2.5 MCG (SPIRIVA) RESPIMAT INHALER IH SCH (09:56)
[2021-07-07] MEDS ORDERED: ENOXAPARIN NA (PORCINE) 120 MG/0.8 ML DISP.SYRIN SQ SCH (10:45)
[2021-07-07] MEDS ORDERED: SODIUM CHLORIDE 500 ML IV SCH (13:00)
[2021-07-07 16:17] LABS: INR 1.9 (0.83-1.09); PROTHROMBIN TIME (PATIENT) 21.4 SEC (9.7-13.0)
[2021-07-07] MEDS ORDERED: HEPARIN NA (PORCINE) 5,000 UNITS/ML 1ML VIAL IVPUSH PRN ×2 (22:00)
[2021-07-07] MEDS: HEPARIN INFUSION - 25,000 UNITS/500 ML INFUS.BAG IVPB SCH (22:07)
[2021-07-07] MEDS: ROSUVASTATIN CA 20 MG TABLET (FP) PO SCH (22:16)
[2021-07-08] MEDS ORDERED: COD LIVER OIL/ZINC OXIDE PASTE 56 GM TUBE TP PRN (00:07)
[2021-07-08 01:22] LABS: HEMATOCRIT 37.4 % (32.4-45.2); HEMOGLOBIN 12.7 GM/dL (10.7-15.3); MCH 29.9 pg (25.7-33.7); MCHC 33.9 g/dl (32.0-36.0); MEAN CELL VOLUME 88.2 fl (80-96); MEAN PLT VOLUME 8.8 fl (7.5-11.1); PLATELET COUNT 208 10^3/uL (134-434); RBC 4.24 M/mm3 (3.60-5.2); RDW 15.5 % (11.6-15.6)
[2021-07-08] MEDS: LEVOTHYROXINE NA 50 MCG TABLET (FP) PO SCH (06:49)
[2021-07-08] MEDS: INSULIN SLIDING SCALE (NOVOLOG) 1 VIAL SQ SCH ×4 (06:49→21:45)
[2021-07-08] MEDS: GABAPENTIN 100 MG CAPSULE PO SCH ×3 (06:49→21:45)
[2021-07-08 07:40] LABS: HEMATOCRIT 37.2 % (32.4-45.2); HEMOGLOBIN 12.7 GM/dL (10.7-15.3); MCH 30.2 pg (25.7-33.7); MEAN CELL VOLUME 88.6 fl (80-96); MEAN PLT VOLUME 9.3 fl (7.5-11.1); PLATELET COUNT 211 10^3/uL (134-434); RBC 4.19 M/mm3 (3.60-5.2); RDW 15.6 % (11.6-15.6)
[2021-07-08 07:46] LABS: BLOOD UREA NITROGEN 21.6 mg/dL (7-18); CALCIUM 9.1 mg/dL (8.5-10.1); CREATININE 0.7 mg/dL (0.55-1.3)
[2021-07-08] MEDS: ALLOPURINOL 100 MG TABLET (FP) PO SCH (09:56)
[2021-07-08] MEDS: ASPIRIN 81 MG CHEWABLE TABLETS PO SCH (09:56)
[2021-07-08] MEDS: PANTOPRAZOLE 40 MG TABLET PO SCH (09:56)
[2021-07-08] MEDS: LOSARTAN POTASSIUM 50 MG TABLET PO SCH (09:57)
[2021-07-08] MEDS: DIGOXIN 0.125 MG TABLET PO SCH (09:57)
[2021-07-08] MEDS: MULTIVITAMINS (DAILY MVI) TABLET (FP) PO SCH (09:59)
[2021-07-08] MEDS: ZINC OXIDE/PANTHENOL/VITAMIN E 56 GM TUBE TP SCH (10:00)
[2021-07-08] MEDS: TIOTROPIUM BROMIDE 2.5 MCG (SPIRIVA) RESPIMAT INHALER IH SCH (10:00)
[2021-07-08 11:04] LABS: INR 1.62 (0.83-1.09); PROTHROMBIN TIME (PATIENT) 19.1 SEC (9.7-13.0)
[2021-07-08] MEDS: WARFARIN NA 2 MG TABLET PO SCH (17:40)
[2021-07-08] MEDS: ROSUVASTATIN CA 20 MG TABLET (FP) PO SCH (21:45)
[2021-07-09] MEDS: LEVOTHYROXINE NA 50 MCG TABLET (FP) PO SCH (06:56)
[2021-07-09] MEDS: GABAPENTIN 100 MG CAPSULE PO SCH ×3 (06:56→23:15)
[2021-07-09] MEDS: INSULIN SLIDING SCALE (NOVOLOG) 1 VIAL SQ SCH ×4 (06:56→23:20)
[2021-07-09 08:08] LABS: HEMATOCRIT 34.2 % (32.4-45.2); HEMOGLOBIN 11.3 GM/dL (10.7-15.3); MCH 29.5 pg (25.7-33.7); MCHC 33.1 g/dl (32.0-36.0); MEAN CELL VOLUME 89.1 fl (80-96); MEAN PLT VOLUME 8.7 fl (7.5-11.1); PLATELET COUNT 190 10^3/uL (134-434); RBC 3.84 M/mm3 (3.60-5.2); RDW 15.7 % (11.6-15.6); WHITE BLOOD COUNT 8.6 K/mm3 (4.0-10.0)
[2021-07-09 08:19] LABS: INR 1.49 (0.83-1.09); PROTHROMBIN TIME (PATIENT) 16.8 SEC (9.7-13.0)
[2021-07-09 08:21] LABS: ACTIVATED PTT 25.6 SECONDS (25.2-36.5)
[2021-07-09 08:32] LABS: BLOOD UREA NITROGEN 22.8 mg/dL (7-18)
[2021-07-09 08:36] LABS: CREATININE 0.7 mg/dL (0.55-1.3)
[2021-07-09] MEDS: PANTOPRAZOLE 40 MG TABLET PO SCH (10:21)
[2021-07-09] MEDS: DIGOXIN 0.125 MG TABLET PO SCH (10:21)
[2021-07-09] MEDS: MULTIVITAMINS (DAILY MVI) TABLET (FP) PO SCH (10:21)
[2021-07-09] MEDS: ZINC OXIDE/PANTHENOL/VITAMIN E 56 GM TUBE TP SCH (10:22)
[2021-07-09] MEDS: TIOTROPIUM BROMIDE 2.5 MCG (SPIRIVA) RESPIMAT INHALER IH SCH (10:22)
[2021-07-09] MEDS: ALLOPURINOL 100 MG TABLET (FP) PO SCH (10:22)
[2021-07-09] MEDS: ASPIRIN 81 MG CHEWABLE TABLETS PO SCH (10:22)
[2021-07-09] MEDS: LOSARTAN POTASSIUM 50 MG TABLET PO SCH (10:22)
[2021-07-09 11:08] LABS: HEMATOCRIT 35.4 % (32.4-45.2); HEMOGLOBIN 11.9 GM/dL (10.7-15.3); MCH 29.9 pg (25.7-33.7); MCHC 33.6 g/dl (32.0-36.0); MEAN CELL VOLUME 89.1 fl (80-96); PLATELET COUNT 196 10^3/uL (134-434); RBC 3.97 M/mm3 (3.60-5.2); RDW 15.9 % (11.6-15.6); WHITE BLOOD COUNT 8.8 K/mm3 (4.0-10.0)
[2021-07-09] MEDS: HEPARIN INFUSION - 25,000 UNITS/500 ML INFUS.BAG IVPB SCH (23:15)
[2021-07-09] MEDS: ROSUVASTATIN CA 20 MG TABLET (FP) PO SCH (23:15)
[2021-07-10] MEDS: INSULIN SLIDING SCALE (NOVOLOG) 1 VIAL SQ SCH ×4 (06:11→22:40)
[2021-07-10] MEDS: GABAPENTIN 100 MG CAPSULE PO SCH ×3 (06:11→22:41)
[2021-07-10] MEDS: LEVOTHYROXINE NA 50 MCG TABLET (FP) PO SCH (06:11)
[2021-07-10 07:45] LABS: HEMATOCRIT 33.1 % (32.4-45.2); HEMOGLOBIN 11.1 GM/dL (10.7-15.3); MCH 29.9 pg (25.7-33.7); MCHC 33.5 g/dl (32.0-36.0); MEAN CELL VOLUME 89.1 fl (80-96); PLATELET COUNT 184 10^3/uL (134-434); RBC 3.71 M/mm3 (3.60-5.2); RDW 15.6 % (11.6-15.6)
[2021-07-10 08:00] LABS: BLOOD UREA NITROGEN 24.2 mg/dL (7-18)
[2021-07-10 08:02] LABS: CALCIUM 8.2 mg/dL (8.5-10.1)
[2021-07-10 08:03] LABS: CREATININE 0.8 mg/dL (0.55-1.3)
[2021-07-10] MEDS: DIGOXIN 0.125 MG TABLET PO SCH (10:30)
[2021-07-10] MEDS: PANTOPRAZOLE 40 MG TABLET PO SCH (10:30)
[2021-07-10] MEDS: ZINC OXIDE/PANTHENOL/VITAMIN E 56 GM TUBE TP SCH (10:30)
[2021-07-10] MEDS: ALLOPURINOL 100 MG TABLET (FP) PO SCH (10:30)
[2021-07-10] MEDS: LOSARTAN POTASSIUM 50 MG TABLET PO SCH (10:30)
[2021-07-10] MEDS: ASPIRIN 81 MG CHEWABLE TABLETS PO SCH (10:30)
[2021-07-10] MEDS: MULTIVITAMINS (DAILY MVI) TABLET (FP) PO SCH (10:30)
[2021-07-10] MEDS: TIOTROPIUM BROMIDE 2.5 MCG (SPIRIVA) RESPIMAT INHALER IH SCH (10:31)
[2021-07-10] MEDS: HEPARIN INFUSION - 25,000 UNITS/500 ML INFUS.BAG IVPB SCH (22:38)
[2021-07-10] MEDS: ROSUVASTATIN CA 20 MG TABLET (FP) PO SCH (22:41)
[2021-07-10 22:48] VITALS: BP 123/68; PULSE 83; TEMP 97.5
== END 2021-07-11 00:25 | disposition short-term general hospital (02) | DRG 280 ==
LOC: JER 13:53 → JERBED 18:07 → J4S 23:53
PROVIDERS: ADMIT Internal Medicine; ATTEND Internal Medicine
DX: I21.4 Non-ST elevation (NSTEMI) myocardial infarction (principal); G93.41 Metabolic encephalopathy; N39.0 Urinary tract infection, site not specified; J98.11 Atelectasis; I48.20 Chronic atrial fibrillation, unspecified; F05 Delirium due to known physiological condition; Z68.41 Body mass index [BMI] 40.0-44.9, adult; E11.9 Type 2 diabetes mellitus without complications; I87.2 Venous insufficiency (chronic) (peripheral); J44.9 Chronic obstructive pulmonary disease, unspecified; Z79.01 Long term (current) use of anticoagulants; I45.10 Unspecified right bundle-branch block; Z99.81 Dependence on supplemental oxygen; E03.9 Hypothyroidism, unspecified; K21.9 Gastro-esophageal reflux disease without esophagitis; Z89.421 Acquired absence of other right toe(s); Z79.84 Long term (current) use of oral hypoglycemic drugs; B35.1 Tinea unguium; E66.01 Morbid (severe) obesity due to excess calories; I11.0 Hypertensive heart disease with heart failure; I50.9 Heart failure, unspecified
CPT/HCPCS: 36415; 70450-TC; 71045-TC-FY; 80048; 80053; 80061; 80162; 81003; 82272; 82550; 82553; 82962; 83036; 83735; 84100; 84443; 84484; 85025; 85027; 85610; 85730; 86850; 86870; 86900; 86901; 87040; 87077; 87081; 87086; 87186; 93005; 93010; 93306-TC; 97116-GP; 97161-GP; 99285-25; C9803; J1644; U0003; U0005